=== PATIENT | female | born 1975 | race Caucasian/White ===

== ENCOUNTER 2020-05-11 04:25 | Inpatient (IN) | payer OTHER, SELFPAY ==
[2020-05-11] VITALS (11 sets, daily range): BP systolic 132–168; BP diastolic 77–93; PULSE 99–135; RESP 13–32; TEMP 35.7–38.2; O2SAT 95–99; BMI 27.4
--- NOTE | 2020-05-11 04:30 | XR_ITS ---
EXAMINATION: XR CHEST CLINICAL INFORMATION: Weakness COMPARISON: 10/22/2019 TECHNIQUE: Frontal view of the chest was obtained. FINDINGS: Right chest wall CT compatible port terminates near the cavoatrial junction. Cardiac leads overlie the chest. The lungs are well expanded. There is no focal consolidation, edema, or effusion. No pneumothorax. The cardiomediastinal silhouette is within normal limits. No acute osseous abnormality. XR/XR chest 1V IMPRESSION: Clear lungs.
--- NOTE | 2020-05-11 04:30 | ECG_ITS ---
Test Reason : SOB Blood Pressure : / mmHG Vent. Rate : 124 BPM Atrial Rate : 124 BPM P-R Int : 122 ms QRS Dur : 086 ms QT Int : 324 ms P-R-T Axes : 056 069 038 degrees QTc Int : 465 ms Sinus tachycardia RSR' or QR pattern in V1 suggests right ventricular conduction delay Nonspecific T wave abnormality Inferior leads Abnormal ECG When compared with ECG of 20-JAN-2019 00:09, Nonspecific T wave abnormality now evident in Inferior leads Referred By: Silvia Ayala Electronically Signed By:ELLY MEDEIROS MD
[2020-05-11 04:35] LABS: Glucose, Whole Blood 283 mg/dL (60-115)
--- NOTE | 2020-05-11 04:35 | ED.NAVMDI ---
HPI - Nausea/Vomiting/Diarrhea General Chief complaint: Nausea/Vomiting/Diarrhea Stated complaint: MULTIPLE COMPLAINTS Time Seen by Provider: 05/11/20 04:30 Source: patient and old records reviewed Mode of arrival: ambulatory Limitations: no limitations History of Present Illness MD elicited complaint: nausea, vomiting, diarrhea and abdominal pain Pertinent past history: other (gastroparesis) Onset (ago): day(s) (all day yesterday) Description of vomiting: food contents, watery and bilious Associated nausea: Yes Associated abdominal pain: Yes Location of pain: epigastric Radiation: diffuse Pain consistency: constant Quality: stabbing Exacerbating factors: movement Relieving factors: none Associated symptoms: fever/chills, loss of appetite, malaise, nausea/vomiting and weakness Related Data Home Medications Medication Instructions Recorded Confirmed Novolog Flexpen U-100 Insulin 3 - 5 units SUBCUT 05/11/20 albuterol See Rx Instructions .ROUTE .COMPLEX 05/11/20 05/11/20 insulin glargine U-300 conc 35 unit SUBCUT DAILY 05/11/20 05/11/20 [Toujeo Max U-300 SoloStar] lamotrigine [Lamictal] 200 mg PO BID 05/11/20 05/11/20 lorazepam 1 mg PO TID 05/11/20 05/11/20 metoclopramide HCl [Reglan] 5 mg PO BID 05/11/20 05/11/20 metoprolol tartrate 25 mg PO BID 05/11/20 05/11/20 midodrine 5 mg PO DAILY 05/11/20 05/11/20 omeprazole [Prilosec] 20 mg PO BID 05/11/20 05/11/20 ziprasidone HCl 40 mg PO BEDTIME 05/11/20 05/11/20 zolpidem [Ambien] 10 mg PO BEDTIME 05/11/20 05/11/20 Allergies Allergy/AdvReac Type Severity Reaction Status Date / Time morphine [MORPHINE] Allergy Intermediate RASH, Verified 05/11/20 05:35 hives, hives mushroom Allergy Intermediate HIVES/RASH Verified 05/11/20 05:35 mushroom Allergy Unknown throat Uncoded 05/11/20 04:41 closes up/difficult breathing mushrooms Allergy Unknown anaphylaxis Uncoded 05/11/20 04:41 Review of Systems Review of Systems: Constitutional : No Weight loss, No Fever, No Chills ENT/Mouth : No sore throat, No Rhinorrhea Eyes: No Swelling, No Redness Cardiovascular : No Chest Pain, No SOB, NoEdema Respiratory : No Cough, No Sputum, No Wheezing Gastrointestinal : Positive Nausea, Positive Vomiting, positive Diarrhea, positive abdominal Pain, No Hematochezia, No Melena Genitourinary : No Dysuria, No Urinary Frequency, No Hematuria, No Urgency Musculoskeletal : No joint pain, No Myalgias, No Joint Swelling Skin : No Skin Lesions, No rash Neuro : No Weakness, No Numbness, No Dizziness, No Headache Psych : No Anxiety/Panic, No Depression Heme/Lymph: No Bruising, No Lymphadenopathy Endocrine : No Polyuria, No Polydipsia All other systems reviewed and are negative. Gastrointestinal: Gastrointestinal: Reports nausea PMFSH Past Medical History Medical History Anxiety Bipolar 1 disorder Diabetes Gastroparesis Pancreatitis Surgical History H/O: hysterectomy History of appendectomy Social History Social History (Updated 05/11/20 @ 04:43 by Silvia Ayala DO) Smoking Status: Never smoker Use of substances other than those prescribed or required for medical reasons: No Advance Directives: No Physical Exam Vital Signs: Vital Signs: Vital Signs Temp Pulse Resp BP Pulse Ox 05/11/20 05:38 123 H 15 142/93 H 97 05/11/20 04:33 100.7 F H 124 H 32 H 137/81 99 Body Mass Index 27.4 Appearance: Alert. Oriented X3. Mild acute distress, dry heaving, pale, diaphoretic. Eyes: Pupils equal, round and reactive to light. ENT: Pharynx moderate dry MM Neck: Normal inspection. Neck supple. CVS: tachycardic heart rate and rhythm. Pulses normal. Respiratory: No respiratory distress. Breath sounds normal. Abdomen: Soft and moderate epigastric ttp Skin: Skin warm and diaphoretic. palel skin color. Normal skin turgor. Extremities: No lower extremity edema. No calf ttp Neuro: Oriented X 3. No motor deficit. No sensory deficit. Course Course Course Narrative: given fevers, WBC count 26k - empiric zosyn ordered at this time UA and chemistry pending CXR negative at this time the patient still has n/v will need admission for further workup MDM - Nausea/Vomiting/Diarrhea MDM Narrative Medical decision making narrative: 44 yo female with multiple medical problems including DM/gastroparesis CAD here with 1 day of upper abdominal pain, vomiting, diarrhea - has temp of 100.7, at this time will need labs, cultures, IVF x2L , dilaudid/reglan/benadryl, CT scan to look for colitis Lab Data Result diagrams: 05/11/20 04:58 05/11/20 04:58 Labs: Lab Results 05/11/20 05/11/20 05/11/20 Range/Units 04:31 04:58 04:58 WBC 26.7 H (4.8-10.8) X10*3/uL RBC 4.02 L (4.20-5.50) X10*6/uL Hgb 11.2 L (12.0-16.0) g/dl Hct 33.8 L (37-47) % MCV 84.1 (80-98) fL MCH 27.9 (27.0-33.0) pg MCHC 33.1 (31.0-35.0) g/dl RDW 14.1 (11.0-16.0) % Plt Count 508 H (160-400) X10*3/uL MPV 9.0 L (9.4-12.3) fL Immature Gran % (Auto) 0.6 H (0.0-0.4) % Neut % (Auto) 78.3 H (45-73) % Lymph % (Auto) 13.6 L (20-40) % [place] % (Auto) 7.1 (2-11) % Eos % (Auto) 0.0 (0-4) % Baso % (Auto) 0.4 (0-2) % Lymph # (Auto) 3.6 (1.2-4.9) X10*3/uL [place] # (Auto) 1.9 H (0.1-1.2) X10*3/uL Eos # (Auto) 0.0 (0.0-0.4) X10*3/uL Baso # (Auto) 0.1 (0.0-0.2) X10*3/uL Abs Immat Gran (auto) 0.17 H (0.00-0.03) X10*3/uL Absolute Neuts (auto) 20.9 H (2.0-8.3) X10*3/uL Absolute Nucleated RBC 0.000 (0.0-0.012) X10*3/uL Nucleated RBC % (auto) 0.0 (0.0-0.2) /100WBC Smear Tech's Comments VERIFIED PT 12.6 (10.8-13.0) SEC INR 1.1 (0.9-1.1) APTT 33.3 (24.1-38.0) SEC VBG pH (7.32-7.43) VBG pCO2 mmhg VBG Oxygen Liters/Min VBG pO2 mmhg VBG HCO3 mmol/L VBG O2 Saturation % VBG Base Excess mmol/L Sodium (135-145) mmol/L Potassium (3.3-5.1) mmol/l Chloride (96-108) mmol/L Carbon Dioxide (22-29) mmol/L Anion Gap (12-20) BUN (9-16) mg/dL Creatinine (0.5-1.4) mg/dL Estim Creat Clear Calc Estimated GFR POC Glucose 283 H (60-115) mg/dL Random Glucose (60-115) mg/dL Lactic Acid (0.5-2.0) mmol/L Calcium (8.4-10.2) mg/dL Magnesium (1.6-2.6) mg/dL Total Bilirubin (0.0-1.0) mg/dL Direct Bilirubin (0.0-0.5) mg/dL AST (5-31) U/L ALT (0-31) U/L Alkaline Phosphatase (39-117) U/L Troponin I High Sens (<3.5-17.0) ng/L Total Protein (6.5-8.0) g/dL Albumin (3.5-5.0) g/dL Lipase (8-78) U/L Coronavirus (PCR) (Negative) 05/11/20 05/11/20 05/11/20 Range/Units 04:58 04:58 04:58 WBC (4.8-10.8) X10*3/uL RBC (4.20-5.50) X10*6/uL Hgb (12.0-16.0) g/dl Hct (37-47) % MCV (80-98) fL MCH (27.0-33.0) pg MCHC (31.0-35.0) g/dl RDW (11.0-16.0) % Plt Count (160-400) X10*3/uL MPV (9.4-12.3) fL Immature Gran % (Auto) (0.0-0.4) % Neut % (Auto) (45-73) % Lymph % (Auto) (20-40) % [place] % (Auto) (2-11) % Eos % (Auto) (0-4) % Baso % (Auto) (0-2) % Lymph # (Auto) (1.2-4.9) X10*3/uL [place] # (Auto) (0.1-1.2) X10*3/uL Eos # (Auto) (0.0-0.4) X10*3/uL Baso # (Auto) (0.0-0.2) X10*3/uL Abs Immat Gran (auto) (0.00-0.03) X10*3/uL Absolute Neuts (auto) (2.0-8.3) X10*3/uL Absolute Nucleated RBC (0.0-0.012) X10*3/uL Nucleated RBC % (auto) (0.0-0.2) /100WBC Smear Tech's Comments PT (10.8-13.0) SEC INR (0.9-1.1) APTT (24.1-38.0) SEC VBG pH (7.32-7.43) VBG pCO2 mmhg VBG Oxygen Liters/Min VBG pO2 mmhg VBG HCO3 mmol/L VBG O2 Saturation % VBG Base Excess mmol/L Sodium 129 L (135-145) mmol/L Potassium 3.7 (3.3-5.1) mmol/l Chloride 92 L (96-108) mmol/L Carbon Dioxide 20 L (22-29) mmol/L Anion Gap 21 H (12-20) BUN 16 (9-16) mg/dL Creatinine 1.05 (0.5-1.4) mg/dL Estim Creat Clear Calc 70.9 Estimated GFR 57 POC Glucose (60-115) mg/dL Random Glucose 350 H* (60-115) mg/dL Lactic Acid 1.7 (0.5-2.0) mmol/L Calcium 8.5 (8.4-10.2) mg/dL Magnesium 1.7 (1.6-2.6) mg/dL Total Bilirubin 0.5 (0.0-1.0) mg/dL Direct Bilirubin 0.2 (0.0-0.5) mg/dL AST 12 (5-31) U/L ALT 7 (0-31) U/L Alkaline Phosphatase 117 (39-117) U/L Troponin I High Sens < 3.5 (<3.5-17.0) ng/L Total Protein 7.2 (6.5-8.0) g/dL Albumin 4.0 (3.5-5.0) g/dL Lipase < 4 L (8-78) U/L Coronavirus (PCR) (Negative) 05/11/20 05/11/20 Range/Units 04:58 05:41 WBC (4.8-10.8) X10*3/uL RBC (4.20-5.50) X10*6/uL Hgb (12.0-16.0) g/dl Hct (37-47) % MCV (80-98) fL MCH (27.0-33.0) pg MCHC (31.0-35.0) g/dl RDW (11.0-16.0) % Plt Count (160-400) X10*3/uL MPV (9.4-12.3) fL Immature Gran % (Auto) (0.0-0.4) % Neut % (Auto) (45-73) % Lymph % (Auto) (20-40) % [place] % (Auto) (2-11) % Eos % (Auto) (0-4) % Baso % (Auto) (0-2) % Lymph # (Auto) (1.2-4.9) X10*3/uL [place] # (Auto) (0.1-1.2) X10*3/uL Eos # (Auto) (0.0-0.4) X10*3/uL Baso # (Auto) (0.0-0.2) X10*3/uL Abs Immat Gran (auto) (0.00-0.03) X10*3/uL Absolute Neuts (auto) (2.0-8.3) X10*3/uL Absolute Nucleated RBC (0.0-0.012) X10*3/uL Nucleated RBC % (auto) (0.0-0.2) /100WBC Smear Tech's Comments PT (10.8-13.0) SEC INR (0.9-1.1) APTT (24.1-38.0) SEC VBG pH 7.52 H (7.32-7.43) VBG pCO2 27 mmhg VBG Oxygen Liters/Min TNP VBG pO2 50 mmhg VBG HCO3 21 mmol/L VBG O2 Saturation 88.8 % VBG Base Excess -0.5 mmol/L Sodium (135-145) mmol/L Potassium (3.3-5.1) mmol/l Chloride (96-108) mmol/L Carbon Dioxide (22-29) mmol/L Anion Gap (12-20) BUN (9-16) mg/dL Creatinine (0.5-1.4) mg/dL Estim Creat Clear Calc Estimated GFR POC Glucose (60-115) mg/dL Random Glucose (60-115) mg/dL Lactic Acid (0.5-2.0) mmol/L Calcium (8.4-10.2) mg/dL Magnesium (1.6-2.6) mg/dL Total Bilirubin (0.0-1.0) mg/dL Direct Bilirubin (0.0-0.5) mg/dL AST (5-31) U/L ALT (0-31) U/L Alkaline Phosphatase (39-117) U/L Troponin I High Sens (<3.5-17.0) ng/L Total Protein (6.5-8.0) g/dL Albumin (3.5-5.0) g/dL Lipase (8-78) U/L Coronavirus (PCR) NEGATIVE (Negative) ECG Data Attestation: I personally reviewed and interpreted this ECG as follows: ECG interpretation date: 05/11/20 ECG interpretation time: 04:39 Interpretation: Rate: 124 Rhythm: sinus tachycardia [place]: normal Normal P waves. Normal [place]. Normal QRS complex. ST T wave : normal qTC: normal prior studies: no acute ischemia The study has been interpreted contemporaneously by me. . Critical Care Time Critical Care Time Critical Care Time: Yes Total Critical Care Time: 35 Attestation: 2L of IVF, IV dilaudid ordered, labs, CT scan, EKG I personally attest to this time spent taking care of the patient Discharge Plan Discharge Clinical Impression: Diabetic gastroparesis Vomiting Qualifiers: Vomiting type: unspecified Vomiting Intractability: intractable Nausea presence: with nausea Qualified Code(s): R11.2 - Nausea with vomiting, unspecified Patient Disposition: Admitted As Inpatient
[2020-05-11] MEDS: Metoclopramide HCl 10 MG/2 ML VIAL 5 MG IVPUSH (04:45)
[2020-05-11] MEDS: diphenhydrAMINE HCL 50 MG/ML VIAL 25 MG IVPUSH (04:45)
[2020-05-11] MEDS: 0.9 % Sodium Chloride 1,000 ML 999 ML IVCONT ×2 (04:46→06:37)
[2020-05-11] MEDS: HYDROmorphone HCl 1 MG/ML SYRINGE IVPUSH ×2 (05:05→08:43)
--- NOTE | 2020-05-11 05:08 | CT_ITS ---
EXAMINATION: CT ABDOMEN AND PELVIS WITHOUT CONTRAST CLINICAL INFORMATION: Fevers. Vomiting. Diarrhea. COMPARISON: 01/20/2019 TECHNIQUE: Multidetector volumetric imaging was performed from the superior aspect of the liver through the pubic symphysis. Sagittal and coronal reformatted images were obtained on the technologist's workstation. This CT examination was performed using dose optimization techniques as appropriate, variously including the following: *Automated exposure control *Adjustment of mA and/or kV according to patient size (this includes techniques or standardized protocols for targeted exams where dose is matched to indication/reason for exam; i.e. extremities or head) *Use of iterative reconstruction technique DLP: 542 mGy-cm FINDINGS: LUNG BASES: The visualized lung bases are unremarkable. LIVER, GALLBLADDER, AND BILIARY TREE: The liver is normal in size, shape, and attenuation. No focal hepatic lesion or biliary ductal dilatation is present. The gallbladder is unremarkable with no evidence of radiopaque gallstones, gallbladder wall thickening, or obvious pericholecystic inflammatory changes. PANCREAS: Normal appearance of the pancreatic parenchyma. There is minimal stranding in the retroperitoneum at the level of the pancreatic body. SPLEEN: Unremarkable. ADRENAL GLANDS: Unremarkable. KIDNEYS AND URETERS: The kidneys are normal in size, shape, and attenuation. No hydronephrosis or hydroureter. 0.2 cm left midpole renal calculus is 11 cm from the posterior axillary line. 0.4 cm right midpole calculus is 11.5 cm from the posterior axillary line.. Mild symmetric perinephric stranding. BLADDER: Unremarkable. GASTROINTESTINAL TRACT: The stomach is unremarkable. Normal caliber small bowel. There is no obstruction. Mild distention of the rectum with stool. Mild overall colonic stool burden. No colonic wall thickening. No free air. No free fluid. ABDOMINAL WALL: No significant hernia is appreciated. LYMPH NODES: Normal. VASCULAR: Unremarkable. PELVIC VISCERA: No pelvic mass. OSSEOUS STRUCTURES: No acute or suspicious osseous abnormality. CT/CT abdomen pelvis wo con IMPRESSION: Prominent stool distends the rectum. Mild overall colonic stool burden. No acute colonic inflammatory change. Minimal stranding seen in the retroperitoneum adjacent to the body of the pancreas. Correlate for pancreatitis. Nonobstructing renal calculi.
[2020-05-11 05:10] LABS: Basophils Absolute Auto 0.1 X10*3/uL (0.0-0.2); Basophils Percent Auto 0.4 % (0-2); Hematocrit 33.8 % (37-47); Hemoglobin 11.2 g/dl (12.0-16.0); Imm Gran Abs Auto 0.17 X10*3/uL (0.00-0.03); Imm Gran Pct Auto 0.6 % (0.0-0.4); Lymphocytes Absolute Auto 3.6 X10*3/uL (1.2-4.9); Lymphocytes Percent Auto 13.6 % (20-40); MANUAL DIFF FLAG SCAN; Mean Corpuscular HGB Conc 33.1 g/dl (31.0-35.0); Mean Corpuscular Hemoglobin 27.9 pg (27.0-33.0); Mean Corpuscular Volume 84.1 fL (80-98); Monocytes Absolute Auto 1.9 X10*3/uL (0.1-1.2); Monocytes Percent Auto 7.1 % (2-11); Neutrophils Absolute Auto 20.9 X10*3/uL (2.0-8.3); Neutrophils Percent Auto 78.3 % (45-73); Platelet Count 508 X10*3/uL (160-400); Red Blood Count 4.02 X10*6/uL (4.20-5.50); Red Cell Distribution Width 14.1 % (11.0-16.0); SCAN SMEAR FLAG 1; White Blood Count 26.7 X10*3/uL (4.8-10.8)
[2020-05-11 05:14] LABS: INTERNATIONAL NORM RATIO 1.1 (0.9-1.1); Prothrombin Time 12.6 SEC (10.8-13.0)
[2020-05-11 05:17] LABS: Partial Thromboplastin Time 33.3 SEC (24.1-38.0)
[2020-05-11 05:38] LABS: Base Excess VBG -0.5 mmol/L; HCO3 VBG 21 mmol/L; PCO2 VBG 27 mmhg; PO2 VBG 50 mmhg; pH VBG 7.52 (7.32-7.43)
[2020-05-11 05:39] LABS: Blood Gas Serial # 5396; Oxygen Saturation VBG 88.8 %
[2020-05-11 05:44] LABS: SLIDE REVIEW VERIFIED
[2020-05-11 05:50] LABS: Troponin-I High Sensitivity < 3.5 ng/L (<3.5-17.0)
--- NOTE | 2020-05-11 06:09 | PC.NURSE ---
pt arrived to ER pale and with nausea and frequent retching. pt able to fall asleep following benadryl, reglan and dilaudid.
[2020-05-11] MEDS: Piperacillin Sodium/Tazobactam 3.375 GM in 0.9 % Sodium Chloride 50 ML IV (06:10)
[2020-05-11 06:43] LABS: Lactic Acid 1.7 mmol/L (0.5-2.0)
[2020-05-11 06:51] LABS: SARS COV2 PCR INHOUSE NEGATIVE (Negative)
[2020-05-11 06:52] LABS: Alanine Aminotransferase 7 U/L (0-31); Alkaline Phosphatase 117 U/L (39-117); Anion Gap 21 (12-20); Aspartate Amino Transferase 12 U/L (5-31); Bilirubin Direct 0.2 mg/dL (0.0-0.5); Bilirubin Total 0.5 mg/dL (0.0-1.0); Blood Urea Nitrogen 16 mg/dL (9-16); Calcium 8.5 mg/dL (8.4-10.2); Carbon Dioxide 20 mmol/L (22-29); Chloride 92 mmol/L (96-108); Creatinine Clr Calc Pharmacy 70.9; Estimated Glomerular Filt Rate 57; Glucose Random 350 mg/dL (60-115); Lipase < 4 U/L (8-78); Magnesium 1.7 mg/dL (1.6-2.6); Potassium 3.7 mmol/l (3.3-5.1); Sodium 129 mmol/L (135-145); Total Protein 7.2 g/dL (6.5-8.0)
--- NOTE | 2020-05-11 06:58 | PC.NURSE ---
pt ambulatory to bathroom with steady gait, feeling better.
--- NOTE | 2020-05-11 07:30 | PC.NURSE ---
PT'S OSMIN ([phone]) CALLED FOR AN UPDATE ON PT STATUS. PT AWARE OF PLAN OF CARE FOR ADMISSION TO HOSP.
--- NOTE | 2020-05-11 07:54 | PC.NURSE ---
this rn spoke with hosp (dr. ravi) pt n/v vomitted sm amt of bile and c/o / abd pain.
[2020-05-11] MEDS: Metoclopramide HCl 10 MG/2 ML VIAL IVPUSH ×3 (08:43→18:28)
[2020-05-11 09:00] LABS: Glucose Urine UA >=1000 MG/DL (NEG); Leukocyte Esterase Urine NEG (NEG); Nitrite Urine NEG (NEG); UACC Culture Trigger NO; Urine Blood 2+ (NEG); Urine Ketones >=80 MG/DL (NEG); Urine Protein 2+ MG/DL (NEG-TRACE)
[2020-05-11 09:01] LABS: Appearance Urine HAZY; Color Urine STRAW
[2020-05-11 09:09] LABS: Bacteria Urine 2+ /LPF; Squamous Epithelial Cell Urine 1+ /LPF; UACC CULT YES
--- NOTE | 2020-05-11 10:00 | PM.IMHP ---
History of Present Illness Date of Service: 05/11/20 Chief Complaint: Nausea, vomiting, diarrhea, abdominal pain this is a 44-year-old female with a history of diabetic gastroparesis who presents to the emergency department with multiple complaints. She reports onset of generalized abdominal pain yesterday. This has been associated with nausea, nonbloody emesis and small amount of diarrhea. She also reports fever and chills. She denies any recent travel, takeout food, sick contacts. In the emergency department she was noted to have a low-grade fever of 100.7 on arrival and she was also tachycardic. Lab work revealed leukocytosis of 26.7 as well as glucose of 350. She underwent a CAT scan of the abdomen which showed moderate stool burden but no evidence of infectious process. She received antiemetics, IV fluid. She continued to have nausea and vomiting the decision was made to admit her for further management. Review of Systems Review of Systems: Yes all other systems are reviewed and are negative Constitutional: Constitutional: Reports chills and Reports fever(s) Gastrointestinal: Gastrointestinal: Reports abdominal pain, Reports diarrhea, Reports nausea and Reports vomiting [facility] Medical History (Updated 05/11/20 @ 11:51 by ALESHA Watt) Anxiety Bipolar 1 disorder Diabetes Gastroparesis NSTEMI (non-ST elevated myocardial infarction) Pancreatitis Recurrent UTI Functional capacity: independent ambulation Pertinent family history: Adopted Family history: reviewed and not pertinent Surgical History (Updated 05/11/20 @ 10:18 by ALESHA Watt) H/O pyloroplasty H/O: hysterectomy History of appendectomy History of ERCP History of tonsillectomy Social History (Updated 05/11/20 @ 10:21 by ALESHA Watt) Alcohol intake: never Smoking Status: Never smoker Use of substances other than those prescribed or required for medical reasons: Yes Substance Use Type: Marijuana Substance Use Frequency: Daily Advance Directives: No Meds Allergies Allergy/AdvReac Type Severity Reaction Status Date / Time morphine [MORPHINE] Allergy Intermediate RASH, Verified 05/11/20 05:35 hives, hives mushroom Allergy Intermediate HIVES/RASH Verified 05/11/20 05:35 mushroom Allergy Unknown throat Uncoded 05/11/20 04:41 closes up/difficult breathing mushrooms Allergy Unknown anaphylaxis Uncoded 05/11/20 04:41 Home Medications Medication Instructions Recorded Confirmed Type Novolog Flexpen U-100 Insulin 3 - 5 units SUBCUT 05/11/20 History albuterol See Rx Instructions .ROUTE .COMPLEX 05/11/20 05/11/20 History insulin glargine U-300 conc 35 unit SUBCUT DAILY 05/11/20 05/11/20 History [Toujeo Max U-300 SoloStar] lamotrigine 200 mg PO BID 05/11/20 05/11/20 History lorazepam 1 mg PO BID PRN 05/11/20 05/11/20 History metoclopramide HCl [Reglan] 5 mg PO BID 05/11/20 05/11/20 History metoprolol tartrate 25 mg PO BID 05/11/20 05/11/20 History midodrine 5 mg PO DAILY 05/11/20 05/11/20 History omeprazole [Prilosec] 20 mg PO BID 05/11/20 05/11/20 History ziprasidone HCl 40 mg PO BEDTIME 05/11/20 05/11/20 History zolpidem 10 mg PO BEDTIME 05/11/20 05/11/20 History Physical Exam Vital Signs and Narrative: Vital Signs: Last Vital Signs Temp 96.2 F L 05/11/20 07:19 Pulse 135 H 05/11/20 07:19 Resp 22 H 05/11/20 07:19 BP 162/84 H 05/11/20 07:19 Pulse Ox 97 05/11/20 05:38 Body Mass Index 27.4 Const: Other: appears uncomfortable. Intermittent retching. Orientation/consciousness: patient oriented x3 HENMT: Head: Yes normocephalic and Yes atraumatic Eyes: Sclerae: sclerae normal Chest: Chest palpation & inspection: normal inspection of the chest Resp: Effort & Inspection: normal respiratory effort and no respiratory distress Auscultation: clear to auscultation bilaterally Cardio: Rate: tachycardic Rhythm: regular rhythm GI: Palpation (GI): Tenderness to palpation present (GI) (with even light touch ) Skin: General skin exam: no rashes or lesions noted Neuro: General: patient oriented x3 Cranial nerves: Yes CN's II-XII intact bilaterally and Yes Bilaterally intact EOM present Extrem: General: Yes normal to inspection Results Labs Labs: Laboratory Tests 05/11/20 05/11/20 05/11/20 04:31 04:58 04:58 WBC 26.7 H RBC 4.02 L Hgb 11.2 L Hct 33.8 L MCV 84.1 MCH 27.9 MCHC 33.1 RDW 14.1 Plt Count 508 H MPV 9.0 L Immature Gran % (Auto) 0.6 H Neut % (Auto) 78.3 H Lymph % (Auto) 13.6 L [place] % (Auto) 7.1 Eos % (Auto) 0.0 Baso % (Auto) 0.4 Lymph # (Auto) 3.6 [place] # (Auto) 1.9 H Eos # (Auto) 0.0 Baso # (Auto) 0.1 Abs Immat Gran (auto) 0.17 H Absolute Neuts (auto) 20.9 H Absolute Nucleated RBC 0.000 Nucleated RBC % (auto) 0.0 Smear Tech's Comments VERIFIED PT 12.6 INR 1.1 APTT 33.3 VBG pH VBG pCO2 VBG Oxygen Liters/Min VBG pO2 VBG HCO3 VBG O2 Saturation VBG Base Excess Sodium Potassium Chloride Carbon Dioxide Anion Gap BUN Creatinine Estim Creat Clear Calc Estimated GFR POC Glucose 283 H Random Glucose Lactic Acid Calcium Magnesium Total Bilirubin Direct Bilirubin AST ALT Alkaline Phosphatase Troponin I High Sens Total Protein Albumin Lipase Urine Color Urine Appearance Urine pH Ur Specific [place] Urine Protein Urine Glucose (UA) Urine Ketones Urine Blood Urine Nitrite Ur Leukocyte Esterase Urine RBC Urine WBC Ur Squamous Epith Cells Urine Bacteria Urine Yeast Coronavirus (PCR) 05/11/20 05/11/20 05/11/20 04:58 04:58 04:58 WBC RBC Hgb Hct MCV MCH MCHC RDW Plt Count MPV Immature Gran % (Auto) Neut % (Auto) Lymph % (Auto) [place] % (Auto) Eos % (Auto) Baso % (Auto) Lymph # (Auto) [place] # (Auto) Eos # (Auto) Baso # (Auto) Abs Immat Gran (auto) Absolute Neuts (auto) Absolute Nucleated RBC Nucleated RBC % (auto) Smear Tech's Comments PT INR APTT VBG pH VBG pCO2 VBG Oxygen Liters/Min VBG pO2 VBG HCO3 VBG O2 Saturation VBG Base Excess Sodium 129 L Potassium 3.7 Chloride 92 L Carbon Dioxide 20 L Anion Gap 21 H BUN 16 Creatinine 1.05 Estim Creat Clear Calc 70.9 Estimated GFR 57 POC Glucose Random Glucose 350 H* Lactic Acid 1.7 Calcium 8.5 Magnesium 1.7 Total Bilirubin 0.5 Direct Bilirubin 0.2 AST 12 ALT 7 Alkaline Phosphatase 117 Troponin I High Sens < 3.5 Total Protein 7.2 Albumin 4.0 Lipase < 4 L Urine Color Urine Appearance Urine pH Ur Specific [place] Urine Protein Urine Glucose (UA) Urine Ketones Urine Blood Urine Nitrite Ur Leukocyte Esterase Urine RBC Urine WBC Ur Squamous Epith Cells Urine Bacteria Urine Yeast Coronavirus (PCR) 05/11/20 05/11/20 05/11/20 04:58 05:41 08:52 WBC RBC Hgb Hct MCV MCH MCHC RDW Plt Count MPV Immature Gran % (Auto) Neut % (Auto) Lymph % (Auto) [place] % (Auto) Eos % (Auto) Baso % (Auto) Lymph # (Auto) [place] # (Auto) Eos # (Auto) Baso # (Auto) Abs Immat Gran (auto) Absolute Neuts (auto) Absolute Nucleated RBC Nucleated RBC % (auto) Smear Tech's Comments PT INR APTT VBG pH 7.52 H VBG pCO2 27 VBG Oxygen Liters/Min TNP VBG pO2 50 VBG HCO3 21 VBG O2 Saturation 88.8 VBG Base Excess -0.5 Sodium Potassium Chloride Carbon Dioxide Anion Gap BUN Creatinine Estim Creat Clear Calc Estimated GFR POC Glucose Random Glucose Lactic Acid Calcium Magnesium Total Bilirubin Direct Bilirubin AST ALT Alkaline Phosphatase Troponin I High Sens Total Protein Albumin Lipase Urine Color STRAW Urine Appearance HAZY Urine pH 6.0 Ur Specific [place] 1.020 Urine Protein 2+ H Urine Glucose (UA) >=1000 H Urine Ketones >=80 Urine Blood 2+ H Urine Nitrite NEG Ur Leukocyte Esterase NEG Urine RBC 5-9 H Urine WBC 10-14 H Ur Squamous Epith Cells 1+ Urine Bacteria 2+ Urine Yeast TRACE Coronavirus (PCR) NEGATIVE Assessment and Plan (1) Vomiting: Qualifiers: Nausea presence: with nausea Vomiting Intractability: intractable Vomiting type: unspecified Qualified Code(s): R11.2 - Nausea with vomiting, unspecified Status: Acute This is a 44-year-old female with a history of gastroparesis who presents to the emergency department with abdominal pain, nausea, vomiting, diarrhea found to have sepsis sepsis secondary to UTI meets criteria wih tachycardia and leukocytosis No severe features, LA wnl sepsis focused exam completed CT shows multiple nonobstructing stone - IV ceftriaxone, follow urine culture, blood cultures intractable nausea and vomiting likely related to diabetic gastroparesis possible component marijuana hyperemesis - symptomatic support including antiemetics, IV fluid diarrhea ?overflow CT scan reports prominent stool burden diabetes, uncontrolled no evidence of DKA -Toujeo is non formulary and will be converted to Lantus. we will decrease dose by half given nausea and vomiting - insulin sliding scale, POCs mood - continue lamotrigine, lorazepam, ziprasidone DVT prophylaxis- Lovenox this case was discussed with Dr. Whipple
--- NOTE | 2020-05-11 11:07 | PC.NURSE ---
this rn was attempting to give pt her metoprolol 25mg dose, pt states i don't know if i can swallow because i just went into the bathroom and spat up a little bit. pt has an emesis bag with 25mg of yellow fluid in her hand.
[2020-05-11] MEDS: Metoprolol Tartrate 25 MG TABLET PO ×2 (11:18→21:16)
[2020-05-11 11:48] LABS: Glucose, Whole Blood 381 mg/dL (60-115)
[2020-05-11] MEDS: cefTRIAXone sodium 1 GM in 0.9 % Sodium Chloride 50 ML IV (12:16)
--- NOTE | 2020-05-11 13:05 | PC.NURSE ---
this rn spoke with luis ([facility]) who indicated that pt need to be given lispro insulin sliding scale for poc of 381. pt has not eaten nor has she drunk anything po from this am. aware.
[2020-05-11] MEDS: Insulin Lispro 100 UNIT/ML 3 ML VIAL SUBCUT ×3 (14:05→21:15)
[2020-05-11 14:32] LABS: Glucose, Whole Blood 423 mg/dL (60-115)
--- NOTE | 2020-05-11 14:45 | PC.NURSE ---
pt has intermittent n/v of small amt of yellow fluid.
[2020-05-11] MEDS: HYDROmorphone HCl 0.5 MG/0.5 ML SYRINGE IVPUSH ×3 (14:47→23:26)
--- NOTE | 2020-05-11 16:30 | PC.NURSE ---
report given to floor. patient ready for transport.
--- NOTE | 2020-05-11 17:50 | PM.EVENT ---
Event Note Event Note: patient seen examined case discussed with APC Patient presented with nausea vomiting abdominal discomfort of 24 hour duration patient noted that she has a temp of 100.4 degrees at home she denies any urinary symptoms patient has been using edible marijuana 3 times a day likely contributing to her symptoms as per patient blood sugars were under good control on examination abdomen soft tender to palpation, positive guarding no rigidity extremities no edema assessment and plan intractable nausea vomiting likely related to hyperglycemia use of marijuana and gastroparesis leukocytosis question related to UTI versus stress-induced with hyperglycemia and vomiting will follow CBC agree with treatment plan as per APC will follow clinical course closely.
[2020-05-11] MEDS: 0.9 % Sodium Chloride 1,000 ML 100 ML IVCONT (18:30)
[2020-05-11] MEDS: Enoxaparin Sodium 40 MG/0.4 ML SYRINGE SUBCUT (18:30)
[2020-05-11 18:39] LABS: Glucose, Whole Blood 372 mg/dL (60-115)
[2020-05-11] MEDS: Insulin Glargine,Hum.rec.anlog 100 UNIT/ML 10 ML VIAL 14 UNIT SUBCUT (18:41)
[2020-05-11 20:51] LABS: Glucose, Whole Blood 264 mg/dL (60-115)
[2020-05-11] MEDS: lamoTRIgine 100 MG TABLET 200 MG PO (21:15)
[2020-05-11] MEDS: Omeprazole 20 MG CAPSULE.DR PO (21:16)
[2020-05-11] MEDS: 0.9 % Sodium Chloride Flush 3 ML SYRINGE IVFLUSH (21:17)
[2020-05-12] VITALS (9 sets, daily range): BP systolic 102–160; BP diastolic 50–97; PULSE 89–104; RESP 16–22; TEMP 36.8–37.2; O2SAT 94–99
[2020-05-12] MEDS: 0.9 % Sodium Chloride 1,000 ML 100 ML IVCONT ×3 (03:35→23:05)
[2020-05-12] MEDS: HYDROmorphone HCl 0.5 MG/0.5 ML SYRINGE IVPUSH ×5 (03:50→21:07)
[2020-05-12] MEDS: Metoclopramide HCl 10 MG/2 ML VIAL IVPUSH ×4 (03:51→23:06)
[2020-05-12 06:30] LABS: Basophils Absolute Auto 0.1 X10*3/uL (0.0-0.2); Basophils Percent Auto 0.3 % (0-2); Eosinophils Percent Auto 0.1 % (0-4); Hematocrit 31.8 % (37-47); Hemoglobin 10.1 g/dl (12.0-16.0); Imm Gran Abs Auto 0.12 X10*3/uL (0.00-0.03); Imm Gran Pct Auto 0.5 % (0.0-0.4); Lymphocytes Absolute Auto 3.4 X10*3/uL (1.2-4.9); Lymphocytes Percent Auto 14.2 % (20-40); MANUAL DIFF FLAG SCAN; Mean Corpuscular HGB Conc 31.8 g/dl (31.0-35.0); Mean Corpuscular Hemoglobin 27.7 pg (27.0-33.0); Mean Corpuscular Volume 87.1 fL (80-98); Mean Platelet Volume 9.1 fL (9.4-12.3); Monocytes Absolute Auto 1.6 X10*3/uL (0.1-1.2); Monocytes Percent Auto 6.6 % (2-11); Neutrophils Absolute Auto 18.8 X10*3/uL (2.0-8.3); Neutrophils Percent Auto 78.3 % (45-73); Platelet Count 497 X10*3/uL (160-400); Red Blood Count 3.65 X10*6/uL (4.20-5.50); Red Cell Distribution Width 14.4 % (11.0-16.0); SCAN SMEAR FLAG 1; White Blood Count 23.9 X10*3/uL (4.8-10.8)
[2020-05-12 07:12] LABS: Anion Gap 15 (12-20); Blood Urea Nitrogen 26 mg/dL (9-16); Calcium 7.8 mg/dL (8.4-10.2); Carbon Dioxide 21 mmol/L (22-29); Chloride 106 mmol/L (96-108); Estimated Glomerular Filt Rate > 60; Glucose Random 105 mg/dL (60-115); Potassium 4.1 mmol/l (3.3-5.1); Sodium 138 mmol/L (135-145)
[2020-05-12 08:15] LABS: SLIDE REVIEW VERIFIED
[2020-05-12] MEDS: Insulin Glargine,Hum.rec.anlog 100 UNIT/ML 10 ML VIAL 14 UNIT SUBCUT (08:16)
[2020-05-12] MEDS: 0.9 % Sodium Chloride Flush 3 ML SYRINGE IVFLUSH (08:18)
[2020-05-12] MEDS: Midodrine HCl 5 MG TABLET PO (08:22)
[2020-05-12] MEDS: Metoprolol Tartrate 25 MG TABLET PO ×2 (08:22→21:04)
[2020-05-12] MEDS: lamoTRIgine 100 MG TABLET 200 MG PO ×2 (08:22→21:03)
[2020-05-12 08:24] LABS: Glucose, Whole Blood 116 mg/dL (60-115)
--- NOTE | 2020-05-12 08:35 | MHC.CM.PN ---
pt lives c her spouse in her home. she reports that she is independent in her care despite being disabled. her is able to help her should she need it. this will include a ride home at dc. pt denies the need for vna at dc. in fact pt does not have any svcs in the home. dc plan is home no svcs. cm to cont. to follow.
[2020-05-12] MEDS: cefTRIAXone sodium 1 GM in 0.9 % Sodium Chloride 50 ML IV (09:39)
[2020-05-12] MEDS: Omeprazole 20 MG CAPSULE.DR PO ×2 (09:41→21:03)
[2020-05-12 11:18] LABS: Glucose, Whole Blood 230 mg/dL (60-115)
[2020-05-12] MEDS: Insulin Lispro 100 UNIT/ML 3 ML VIAL SUBCUT ×2 (11:29→17:03)
--- NOTE | 2020-05-12 13:36 | P.PNIM_ITS ---
Subjective Subjective Date of Service: 05/12/20 Interval History: patient complaining of persistent abdominal pain and nausea unable to keep fluid down stew to recurrent gagging spitting up small amount of phlegm, complaining that her urine is cloudy. Review of Systems General no headache ,no dizziness no fever chills. CVS no chest pain, no palpitation. Respiratory no cough, no shortness of breath. Physical Exam Vital Signs: Vital Signs: Vital Signs Temp Pulse Resp BP Pulse Ox 05/12/20 11:41 98.2 F 92 22 H 146/68 H 96 05/12/20 08:22 101 H 121/66 05/12/20 07:17 98.4 F 101 H 18 121/66 98 05/12/20 04:00 98.6 F 95 18 129/97 H 98 05/12/20 00:00 98.6 F 89 18 103/61 99 05/11/20 21:16 107 H 155/89 H 05/11/20 19:32 97.2 F 107 H 18 155/89 H 97 05/11/20 14:53 99 16 151/86 H 95 05/11/20 14:47 16 05/11/20 14:26 98.4 F 116 H 16 158/88 H 99 Body Mass Index 27.4 General patient resting comfortably in no acute distress. Neck is supple no JVD. CVS regular rate rhythm, Respiratory lungs clear to auscultation, no respiratory distress, no wheeze, no rhonchi. Gastrointestinal patient contracts her belly even before examined were with minimal touch belly is soft, bowel sounds are audible no distension, Extremities no clubbing cyanosis or edema. Neuro nonfocal patient moving all 4 extremity speech clear. Skin no rash Objective Data Current Medications Generic Name Dose Route Start Last Admin Trade Name Freq PRN Reason Stop Dose Admin Acetaminophen 650 mg 05/11/20 17:03 Acetaminophen 325 Mg Tablet PO Q6H PRN Pain, Mild (Pain Scale 1-3) Albuterol Sulfate 1 puff 05/11/20 10:50 Albuterol Sulfate 90 Mcg 8 Gm Inhaler INHALE Q4H PRN Shortness of Breath/Wheezing Enoxaparin Sodium 40 mg 05/11/20 18:00 05/11/20 18:30 Enoxaparin Sodium 40 Mg/0.4 Ml Syringe SUBCUT 40 mg Q24H RAISA Administration Hydromorphone HCl 0.5 mg 05/11/20 18:17 05/12/20 12:20 Hydromorphone Hcl 0.5 Mg/0.5 Ml Syringe IVPUSH 0.5 mg Q4H PRN Administration Pain, Severe (Pain Scale 7-10) Ceftriaxone Sodium 1 gm/ 50 mls @ 100 mls/hr 05/11/20 10:45 05/12/20 10:09 Sodium Chloride IV Infused Q24H RAISA Infusion Sodium Chloride 1,000 mls @ 100 mls/hr 05/11/20 17:03 05/12/20 03:35 Ns IVCONT 100 mls/hr .Q10H RAISA Administration Insulin Glargine 14 unit 05/12/20 09:00 05/12/20 08:16 Insulin Glargine,Hum.Rec.Anlog 100 Unit/Ml 10 Ml Vial SUBCUT 14 unit DAILY RAISA Administration Insulin Human Lispro 0 unit 05/11/20 17:03 05/12/20 11:29 Insulin Lispro 100 Unit/Ml 3 Ml Vial SUBCUT 05/12/20 17:04 4 unit QIDACHS RAISA Administration Protocol Lamotrigine 200 mg 05/11/20 21:00 05/12/20 08:22 Lamotrigine 100 Mg Tablet PO 200 mg BID RAISA Administration Lorazepam 1 mg 05/11/20 10:41 Lorazepam 1 Mg Tablet PO BID PRN Anxiety Metoclopramide HCl 10 mg 05/11/20 07:54 05/12/20 08:18 Metoclopramide Hcl 10 Mg/2 Ml Vial IVPUSH 10 mg Q6H PRN Administration Nausea Metoprolol Tartrate 25 mg 05/11/20 21:00 05/12/20 08:22 Metoprolol Tartrate 25 Mg Tablet PO 25 mg BID RAISA Administration Protocol Midodrine 5 mg 05/12/20 09:00 05/12/20 08:22 Midodrine Hcl 5 Mg Tablet PO 5 mg DAILY RAISA Administration Omeprazole 20 mg 05/11/20 21:00 05/12/20 09:41 Omeprazole 20 Mg Capsule.Dr PO 20 mg BID PENDING SALE TO [facility] Administration Pharmacy Consult 1 each 05/11/20 04:35 Consult Rx Perform Med Rec MISCELLANE ONCE PRN Consult order Sodium Chloride 3 ml 05/11/20 17:03 05/12/20 08:18 0.9 % Sodium Chloride Flush 3 Ml Syringe IVFLUSH 3 ml QSHIFT RAISA Administration Ziprasidone 40 mg 05/11/20 21:00 05/11/20 21:16 Ziprasidone 40 Mg Capsule PO Not Given BEDTIME PENDING SALE TO [facility] Labs CBC & Chem 7: 05/12/20 06:05 05/12/20 06:05 Microbiology Microbiology Results: Microbiology 05/11/20 Unknown Urine clean catch - Clean Catch Midstream Urine Culture - Final 05/11/20 04:59 Blood - Venous Blood Culture - Preliminary No growth after 24 hours. 05/11/20 04:58 Blood - Venous Blood Culture - Preliminary No growth after 24 hours. Assessment and Plan (1) Intractable nausea and vomiting: Status: Acute (2) Diabetic gastroparesis: Status: Acute (3) UTI (urinary tract infection): Status: Acute Assessment and Plan: 44-year-old female with past medical history of diabetes and gastroparesis pres ented with abdominal pain nausea vomiting and diarrhea and found to have sepsis likely due to UTI. Sepsis secondary to UTI. Patient complaining of cloudy urine urine culture is pending will continue IV ceftriaxone and follow urine and blood culture. WBC is gradually trending down leukocytosis likely related to stress and UTI will follow CBC Intractable nausea vomiting. Likely related to diabetic gastroparesis use of marijuana continue antiemetics IV fluids and clear liquid diet since patient is not tolerating by mouth, due to persistent nausea will taper IV Dilaudid place patient on K-pad and Toradol. Diarrhea likely overflow since CT scan reported prominent stool burden patient after admission had couple loose stools will hold off on further imaging studies and follow clinical course Diabetes mellitus on insulin patient is on Toujeo that is non formulary therefore converted to Lantus dose was reduced to 50% secondary to nausea vomiting and poor by mouth intake will continue insulin sliding scale and follow point of cares closely. Patient blood sugar remains elevated but stable around 200 Mood disorder will continue home medication including lamotrigine, lorazepam and ziprasidone. DVT prophylaxis on Lovenox
[2020-05-12 16:24] LABS: Glucose, Whole Blood 161 mg/dL (60-115)
[2020-05-12] MEDS: Enoxaparin Sodium 40 MG/0.4 ML SYRINGE SUBCUT (17:04)
[2020-05-12 20:59] LABS: Glucose, Whole Blood 196 mg/dL (60-115)
[2020-05-12] MEDS: Ziprasidone 40 MG CAPSULE PO (21:03)
[2020-05-13] MEDS: HYDROmorphone HCl 0.5 MG/0.5 ML SYRINGE IVPUSH ×3 (01:12→09:12)
[2020-05-13 04:00] VITALS: BP 158/82; PULSE 117; RESP 20; TEMP 36.9; O2SAT 98
[2020-05-13] MEDS: LORazepam 1 MG TABLET PO (04:06)
[2020-05-13] MEDS: Metoclopramide HCl 10 MG/2 ML VIAL IVPUSH (05:08)
[2020-05-13] MEDS: 0.9 % Sodium Chloride Flush 3 ML SYRINGE IVFLUSH (05:08)
[2020-05-13 08:00] VITALS: BP 182/80; PULSE 125; RESP 20; TEMP 36.6; O2SAT 96
[2020-05-13 08:27] LABS: Glucose, Whole Blood 198 mg/dL (60-115)
[2020-05-13 08:32] VITALS: BP 182/80; PULSE 125
[2020-05-13] MEDS: Metoprolol Tartrate 25 MG TABLET PO (08:32)
[2020-05-13] MEDS: Omeprazole 20 MG CAPSULE.DR PO (08:32)
[2020-05-13] MEDS: lamoTRIgine 100 MG TABLET 200 MG PO (08:32)
[2020-05-13] MEDS: Insulin Glargine,Hum.rec.anlog 100 UNIT/ML 10 ML VIAL 14 UNIT SUBCUT (08:35)
[2020-05-13] MEDS: 0.9 % Sodium Chloride 1,000 ML 100 ML IVCONT (08:42)
[2020-05-13 11:06] LABS: MANUAL DIFF FLAG NO
[2020-05-13 11:07] LABS: Basophils Percent Auto 0.3 % (0-2); Hematocrit 34.2 % (37-47); Hemoglobin 10.9 g/dl (12.0-16.0); Imm Gran Abs Auto 0.04 X10*3/uL (0.00-0.03); Imm Gran Pct Auto 0.3 % (0.0-0.4); Lymphocytes Absolute Auto 2.3 X10*3/uL (1.2-4.9); Mean Corpuscular HGB Conc 31.9 g/dl (31.0-35.0); Mean Corpuscular Hemoglobin 27.2 pg (27.0-33.0); Mean Corpuscular Volume 85.3 fL (80-98); Mean Platelet Volume 9.1 fL (9.4-12.3); Monocytes Absolute Auto 0.6 X10*3/uL (0.1-1.2); Neutrophils Absolute Auto 8.7 X10*3/uL (2.0-8.3); Neutrophils Percent Auto 74.4 % (45-73); Platelet Count 511 X10*3/uL (160-400); Red Blood Count 4.01 X10*6/uL (4.20-5.50); Red Cell Distribution Width 13.7 % (11.0-16.0); White Blood Count 11.7 X10*3/uL (4.8-10.8)
[2020-05-13 11:42] LABS: Anion Gap 14 (12-20); Blood Urea Nitrogen 8 mg/dL (9-16); Calcium 7.5 mg/dL (8.4-10.2); Carbon Dioxide 25 mmol/L (22-29); Chloride 98 mmol/L (96-108); Creatinine Clr Calc Pharmacy 106.4; Estimated Glomerular Filt Rate > 60; Glucose Random 271 mg/dL (60-115); Potassium 3.6 mmol/l (3.3-5.1); Sodium 133 mmol/L (135-145)
[2020-05-13] MEDS: cefTRIAXone sodium 1 GM in 0.9 % Sodium Chloride 50 ML IV (11:48)
[2020-05-13 11:57] LABS: Glucose, Whole Blood 234 mg/dL (60-115)
[2020-05-13 12:00] VITALS: BP 150/78; PULSE 100; RESP 20; TEMP 37.1; O2SAT 99
[2020-05-13 15:27] VITALS: BP 141/96; PULSE 120; RESP 16; TEMP 36; O2SAT 100
--- NOTE | 2020-05-13 15:44 | PM.DS ---
DS: Providers Provider Date of admission: 05/11/20 09:57 Primary care physician: Yulisa Avila MD DS: Diagnosis Discharge Diagnosis (1) Intractable nausea and vomiting: Status: Acute (2) Diabetic gastroparesis: Status: Acute (3) UTI (urinary tract infection): Status: Acute DS: Summary Hospital Course Hospital Course: Chief Complaint: Nausea, vomiting, diarrhea, abdominal pain this is a 44-year-old female with a history of diabetic gastroparesis who presents to the emergency department with multiple complaints. She reports onset of generalized abdominal pain yesterday. This has been associated with nausea, nonbloody emesis and small amount of diarrhea. She also reports fever and chills. She denies any recent travel, takeout food, sick contacts. In the emergency department she was noted to have a low-grade fever of 100.7 on arrival and she was also tachycardic. Lab work revealed leukocytosis of 26.7 as well as glucose of 350. She underwent a CAT scan of the abdomen which showed moderate stool burden but no evidence of infectious process. She received antiemetics, IV fluid. She continued to have nausea and vomiting the decision was made to admit her for further management. hospital course Intractable nausea and vomiting patient was admitted to medical floor and was placed on clear liquid diet IV fluid and pain medication patient's symptoms of nausea vomiting have significantly improved her diet has been advanced to diabetic her abdominal pain has resolved therefore patient is being discharged home on all of her baseline medication her symptoms were most likely related to gastroparesis and use of marijuana. diarrhea has resolved patient likely had constipation with overflow. Diabetes mellitus patient has been recommended to resume toujeo. Sepsis secondary to UTI initially felt to have sepsis due to UTI urine culture and blood culture showed no growth patient did not have sepsis likely symptoms were related to intractable nausea vomiting and had stress-induced leukocytosis. Time Spent with Patient Time attestation: Total time spent providing and/or coordinating discharge services: Physical Exam Vital Signs: Vital Signs: Vital Signs Temp Pulse Resp BP Pulse Ox 05/13/20 15:27 96.8 F 120 H 16 141/96 H 100 05/13/20 12:00 98.7 F 100 20 150/78 H 99 05/13/20 08:32 125 H 182/80 H 05/13/20 08:00 97.8 F 125 H 20 182/80 H 96 05/13/20 04:00 98.4 F 117 H 20 158/82 H 98 05/12/20 23:13 98.6 F 92 18 117/67 99 05/12/20 21:04 104 H 102/50 L 05/12/20 20:00 98.3 F 104 H 16 102/50 L 97 Body Mass Index 27.4 General patient resting comfortably in no acute distress. Neck is supple no JVD. CVS regular rate rhythm, Respiratory lungs clear to auscultation, no respiratory distress, no wheeze, no rhonchi. Gastrointestinal abdomen soft, nontender, bowel sounds audible, no no guarding , no rigidity. Extremities no clubbing cyanosis or edema. Neuro nonfocal patient moving all 4 extremity speech clear. Skin no rash DS: Data Data Completed and Pending Labs on day of discharge: Labs from last 24 hours 05/13/20 05/13/20 05/13/20 11:36 10:51 10:47 WBC 11.7 H RBC 4.01 L Hgb 10.9 L Hct 34.2 L MCV 85.3 MCH 27.2 MCHC 31.9 RDW 13.7 Plt Count 511 H MPV 9.1 L Immature Gran % (Auto) 0.3 Neut % (Auto) 74.4 H Lymph % (Auto) 20.0 [place] % (Auto) 5.0 Eos % (Auto) 0.0 Baso % (Auto) 0.3 Lymph # (Auto) 2.3 [place] # (Auto) 0.6 Eos # (Auto) 0.0 Baso # (Auto) 0.0 Abs Immat Gran (auto) 0.04 H Absolute Neuts (auto) 8.7 H Absolute Nucleated RBC 0.000 Nucleated RBC % (auto) 0.0 Sodium 133 L Potassium 3.6 Chloride 98 Carbon Dioxide 25 Anion Gap 14 BUN 8 L D Creatinine 0.70 Estim Creat Clear Calc 106.4 Estimated GFR > 60 POC Glucose 234 H Random Glucose 271 H D Calcium 7.5 L 05/13/20 05/12/20 05/12/20 07:34 20:52 16:18 WBC RBC Hgb Hct MCV MCH MCHC RDW Plt Count MPV Immature Gran % (Auto) Neut % (Auto) Lymph % (Auto) [place] % (Auto) Eos % (Auto) Baso % (Auto) Lymph # (Auto) [place] # (Auto) Eos # (Auto) Baso # (Auto) Abs Immat Gran (auto) Absolute Neuts (auto) Absolute Nucleated RBC Nucleated RBC % (auto) Sodium Potassium Chloride Carbon Dioxide Anion Gap BUN Creatinine Estim Creat Clear Calc Estimated GFR POC Glucose 198 H 196 H 161 H Random Glucose Calcium Preliminary micro results at discharge 05/11/20 04:59 Blood Culture - Preliminary Blood - Venous No growth after 48 hours. 05/11/20 04:58 Blood Culture - Preliminary Blood - Venous No growth after 48 hours. Discharge Plan Discharge Patient Disposition: Home, Self-Care Referrals: Yulisa Dyson MD [Primary Care Provider] - Discharge Medications: Continued metoclopramide HCl 5 mg/5 mL Solution 5 mg PO BID RF: 0 Toujeo Max U-300 SoloStar 300 unit/mL (3 mL) Insulin Pen 35 unit SUBCUT DAILY RF: 0 midodrine 5 mg Tablet 5 mg PO DAILY RF: 0 omeprazole 20 mg Capsule,Delayed Release(Dr/Ec) 20 mg PO BID RF: 0 ziprasidone HCl 40 mg Capsule 40 mg PO BEDTIME RF: 0 lorazepam 1 mg Tablet 1 mg PO BID PRN (Reason: Anxiety) RF: 0 metoprolol tartrate 25 mg Tablet 25 mg PO BID RF: 0 Novolog Flexpen U-100 Insulin pen injector 3 - 5 units subcut RF: 0 albuterol 90 mcg/actuation Aerosol See Rx Instructions .ROUTE .COMPLEX RF: 0 lamotrigine 200 mg Tablet 200 mg PO BID RF: 0 zolpidem 10 mg Tablet 10 mg PO BEDTIME RF: 0 Discharge Orders: Discharge Order (Routine); Ordered 05/13/20 Ordered By: Asuncion Whipple Diet: diabetic diet Activity on Discharge: As tolerated Visit Report Forms: Patient Portal Discharge page Care Plan Goals: continue outpatient medication Health Concerns: follow blood sugar closely and take insulin as prescribed Plan of Treatment: close outpatient follow-up with PCP
[2020-05-13 16:48] LABS: Glucose, Whole Blood 292 mg/dL (60-115)
--- NOTE | 2020-05-13 16:51 | PC.NURSE ---
Patient tolerated lunch, right chest port heparinized and then de-accessed w/ no problems. awaiting ride home from .
== END 2020-05-13 17:20 | disposition home or self-care (01) | DRG 74 ==
LOC: HO.ED 09:11 → HO.IMC 16:17
PROVIDERS: Emergency Medicine; Physician Assistant Medical; Admitting Provider Hospitalist; Emergency Provider Emergency Medicine; PCP Internal Medicine; Visit Provider Hospitalist
DX: E11.43 Type 2 diabetes mellitus with diabetic autonomic (poly)neuropathy (principal); N39.0 Urinary tract infection, site not specified; K31.84 Gastroparesis; F31.9 Bipolar disorder, unspecified; D72.829 Elevated white blood cell count, unspecified; Z20.828 Contact with and (suspected) exposure to other viral communicable diseases; I25.2 Old myocardial infarction; Z87.440 Personal history of urinary (tract) infections; Z88.5 Allergy status to narcotic agent; Z79.4 Long term (current) use of insulin; Z79.899 Other long term (current) drug therapy
CPT/HCPCS: 36415; 71045; 74176; 80048; 80076; 81001; 81003; 81015; 82803; 82947; 83605; 83690; 83735; 84484; 85025; 85610; 85730; 87040; 87086; 87635; 93005; 96361; 96365; 96375; 99285; 99291; J0696; J1170; J1200; J1642; J1650; J2543; J2765

== ENCOUNTER 2020-06-01 15:02 | Inpatient (IN) | payer OTHER, SELFPAY ==
[2020-06-01] VITALS (9 sets, daily range): BP systolic 145–172; BP diastolic 74–93; PULSE 112–134; RESP 15–33; TEMP 36.1–37.3; O2SAT 94–100; BMI 25.2; BMI 27.4
--- NOTE | 2020-06-01 | XR_ITS ---
EXAMINATION: XR CHEST CLINICAL INFORMATION: Abdominal pain. Baseline evaluation. COMPARISON: CXR from 05/11/2020 TECHNIQUE: Frontal view of the chest was obtained. FINDINGS: There is a right chest wall medication port with tip of catheter located in the distal superior vena cava. The lungs are well expanded and clear. No consolidation, pleural effusion or pneumothorax. The cardiomediastinal silhouette has normal size and contour. The visualized bones, and upper abdomen, are unremarkable. XR/XR chest 1V IMPRESSION: No acute pulmonary disease.
--- NOTE | 2020-06-01 16:47 | ED_ITS ---
HPI - Abdominal Pain General Chief Complaint: Nausea/Vomiting/Diarrhea Stated Complaint: vomiting Time Seen by Provider: 06/01/20 16:42 Source: patient Mode of arrival: ambulatory Limitations: no limitations History of Present Illness HPI narrative: 44-year-old female with history of diabetes complicated with diabetic gastroparesis, patient get episodes of abdominal pain/nausea/vomiting every couple weeks, patient had several prior hospitalization for that reason, patient presented with similar symptoms of nausea, vomiting, and crampy abdominal pain. Patient describes the pain as started 2 days ago, constant but fluctuate when it is severe it is 10/10, pain is associated with nausea and vomiting and hyperven tilation, nothing relief the pain, nothing make it worse. Related Data Home Medications Medication Instructions Recorded Confirmed Toujeo Max U-300 SoloStar 35 unit SUBCUT DAILY 05/11/20 06/01/20 lamotrigine 200 mg PO BID 05/11/20 06/01/20 lorazepam 1 mg PO BID PRN 05/11/20 06/01/20 metoclopramide HCl 5 mg PO BID 05/11/20 06/01/20 midodrine 5 mg PO DAILY 05/11/20 06/01/20 omeprazole 20 mg PO BID 05/11/20 06/01/20 ziprasidone HCl 40 mg PO BEDTIME 05/11/20 06/01/20 zolpidem 10 mg PO BEDTIME 05/11/20 06/01/20 insulin aspart U-100 [Novolog 0 unit SUBCUT DIRECTED 06/01/20 06/01/20 Flexpen U-100 Insulin] metoprolol tartrate 25 mg tablet 25 mg PO BID 06/01/20 06/01/20 risperidone 0.5 mg PO BID 06/01/20 06/01/20 Previous Rx's Medication Instructions Recorded albuterol sulfate 90 mcg/actuation 1 puff PO Q4H PRN 30 Days #8.5 g 05/25/20 aerosol inhaler Allergies Allergy/AdvReac Type Severity Reaction Status Date / Time morphine [MORPHINE] Allergy Intermediate RASH, Verified 05/11/20 05:35 hives, hives mushroom Allergy Intermediate HIVES/RASH Verified 05/11/20 05:35 mushroom Allergy Unknown throat Uncoded 05/11/20 04:41 closes up/difficult breathing mushrooms Allergy Unknown anaphylaxis Uncoded 05/11/20 04:41 Review of Systems Review of Systems All other systems are reviewed and are negative Constitutional: Reports as per HPI and Reports no additional constitutional complaints Eyes: Reports as per HPI and Reports no additional eye complaints Reports system reviewed and no additional complaints, except as documented Cardiovascular: Reports as per HPI and Reports no additional cardiovascular complaints Respiratory: Reports as per HPI and Reports no additional respiratory complaints Gastrointestinal: Reports as per HPI and Reports no additional gastrointestinal complaints Genitourinary: Reports no additional female genitourinary complaints Musculoskeletal: Reports no additional musculoskeletal complaints Skin/Breast: Reports system reviewed and no additional complaints, except as docu Psychiatric: Reports no additional psychiatric complaints Endocrine: Reports no additional endocrine complaints Hematologic/Lymphatic: Reports no additional hematologic/lymphatic complaints Allergic/Immunologic: Reports no additional allergic/immunologic complaints Reports system reviewed and no additional complaints, except as documented and Reports Abnormal speech present Physical Exam Vital Signs: Vital Signs: Last Vital Signs Temp 99.2 F 06/01/20 23:19 Pulse 134 H 06/01/20 23:19 Resp 19 06/01/20 23:19 BP 160/74 H 06/01/20 23:19 Pulse Ox 97 06/01/20 23:19 Body Mass Index 27.4 Vital signs have been reviewed as normal and appeared to be correct. Blood pressure in the high range. Heart rate in the Rapid range. Respiration rate in the high range. Temperature normal. Oxygen saturation normal. Abnormal vital sign was contributed to patient anxiety and hyperventilation. Appearance: Alert. Oriented X3. Anxious Head: Normal external exam. Normocephalic. Atraumatic. No Hernández signs noted. No raccoon eyes noted Eyes: PERRLA. EOMI. Conjunctiva and sclera normal. Eyelids normal. Dry mucous membrane ENT: EAC normal. TM's Normal. Pharynx normal. Uvula midline. Dry mucous membranes. No trismus noted. No drooling noted. No muffled voice noted. Neck: Normal inspection. Neck supple. FROM. No adenopathy. Thyroid Normal. No meningeal signs. No neck mass noted. CVS: Normal heart rate and rhythm. Heart sound normal. No murmurs noted. Pulses normal throughout. Respiratory: No respiratory distress. Painless inspiration. Breath sounds normal. No wheezes/rales/rhonchi noted. Chest nontender. No accessory muscle u daniel noted or decreased air movement noted. Abdomen: Diffuse tenderness patient refused exam due to severe pain. Bowel sounds normal in all 4 quadrants. No distention noted. No organomegaly noted. No visible injury noted. Back: No CVA tenderness. Full range of motion noted. Skin: Skin warm and dry. Normal skin color. Normal skin turgor. No rashes/lesions/lacerations noted. Extremities: No lower extremity edema. Extremities exhibit normal range of motion. Extremities nontender. Neuro: Oriented X 3. No motor deficit. No sensory deficit. Reflexes normal. MDM - Abdominal Pain MDM Narrative Medical decision making narrative: Assessment and plan. This is a 44-year-old female with history of complicated diabetic gastroparesis, patient presented with her typical symptoms of abdominal pain, nausea, vomiting. Patient usually require hospitalization to manage her symptoms for aggressive IV hydration and symptoms control. Patient has small amount of acetone, with anion gap of 22 patient may be an early or mild DKA give the patient 1 dose of IV insulin. Patient has a severe abdominal pain, patient had several CTs of the abdomen pelvis for similar presentation (last CT was 3 weeks ago), rather not expose the patient for ionized radiation CT study and do serial abdominal exam, patient will be admitted if CT decided to be necessarily can be done as an inpatient at this point I see no medical necessity to justify CT of the abdomen and pelvis. Due to severe dehydration patient is unable to give urine at this point, patient had history of UTI but patient do not have symptoms today. Patient's leukocytosis, tachycardia, and tachypnea is likely due to severe dehydration secondary to nausea and vomiting, and stress reaction. ED attending note 06/01/2020 10;15 pm: UA results just posted at 21:04 shows UTI patient is enrolled into sepsis protocol 30 cc/kg fluid was ordered, also ceftriaxone antibiotics, blood culture, lactic acid, and ABG were ordered. Will upgrade the admission to ICU, the case discussed with Dr. Valiente who accepted the patient. Repeat abdominal exam, abdomen is less tender but very sensitive to touch, unable to preformed abdominal exam at this point will do abdomen CT to rule out concomitant intra-abdominal pathology. ED attending note 06/02/2020 1;30 a.m. patient is feels better, with improvement of the nausea and vomiting, patient is not acidotic on the VBG, CT of the abdomen and pelvis showing no acute intra-abdominal pathology. Patient received IV fluid for DKA/UTI with mild sepsis. Patient has been accepted to ICU boarding in the ER until available bed. Lab Data Attestation: I reviewed the patient's lab results. Result diagrams: 06/01/20 17:38 06/01/20 21:04 Labs: Lab Results 06/01/20 06/01/20 06/01/20 Range/Units 17:38 17:38 17:38 WBC 15.1 H (4.8-10.8) X10*3/uL RBC 4.36 (4.20-5.50) X10*6/uL Hgb 12.0 (12.0-16.0) g/dl Hct 37.8 (37-47) % MCV 86.7 (80-98) fL MCH 27.5 (27.0-33.0) pg MCHC 31.7 (31.0-35.0) g/dl RDW 14.1 (11.0-16.0) % Plt Count 618 H (160-400) X10*3/uL MPV 9.1 L (9.4-12.3) fL Immature Gran % (Auto) 0.3 (0.0-0.4) % Neut % (Auto) 86.9 H (45-73) % Lymph % (Auto) 10.2 L (20-40) % Creek % (Auto) 2.2 (2-11) % Eos % (Auto) 0.1 (0-4) % Baso % (Auto) 0.3 (0-2) % Lymph # (Auto) 1.5 (1.2-4.9) X10*3/uL Creek # (Auto) 0.3 (0.1-1.2) X10*3/uL Eos # (Auto) 0.0 (0.0-0.4) X10*3/uL Baso # (Auto) 0.1 (0.0-0.2) X10*3/uL Abs Immat Gran (auto) 0.05 H (0.00-0.03) X10*3/uL Absolute Neuts (auto) 13.1 H (2.0-8.3) X10*3/uL Absolute Nucleated RBC 0.000 (0.0-0.012) X10*3/uL Nucleated RBC % (auto) 0.0 (0.0-0.2) /100WBC Smear Tech's Comments VERIFIED Sodium 134 L (135-145) mmol/L Potassium 4.8 D (3.3-5.1) mmol/l Chloride 98 (96-108) mmol/L Carbon Dioxide 19 L (22-29) mmol/L Anion Gap 22 H (12-20) BUN 14 D (9-16) mg/dL Creatinine 1.03 (0.5-1.4) mg/dL Estim Creat Clear Calc 72.3 Estimated GFR 58 POC Glucose (60-115) mg/dL Random Glucose 389 H* (60-115) mg/dL Calcium 9.2 D (8.4-10.2) mg/dL Total Bilirubin 0.5 (0.0-1.0) mg/dL Direct Bilirubin 0.2 (0.0-0.5) mg/dL AST 11 (5-31) U/L ALT 7 (0-31) U/L Alkaline Phosphatase 137 H (39-117) U/L Total Protein 8.3 H (6.5-8.0) g/dL Albumin 4.7 (3.5-5.0) g/dL Lipase 8 (8-78) U/L Urine Color Urine Appearance Urine pH (5.0-8.0) Ur Specific Winters (1.005-1.025) Urine Protein (NEG-TRACE) MG/DL Urine Glucose (UA) (NEG) MG/DL Urine Ketones (NEG) MG/DL Urine Blood (NEG) Urine Nitrite (NEG) Ur Leukocyte Esterase (NEG) Urine RBC (0) /HPF Urine WBC (0-4) /HPF Ur Squamous Epith Cells /LPF Urine Bacteria /LPF Urine Mucus /LPF Acetone, Qual Small H (Negative) COVID-19 (PERIR) (Negative) COVID-19 Clin Com 06/01/20 06/01/20 06/01/20 Range/Units 19:37 20:21 21:02 WBC (4.8-10.8) X10*3/uL RBC (4.20-5.50) X10*6/uL Hgb (12.0-16.0) g/dl Hct (37-47) % MCV (80-98) fL MCH (27.0-33.0) pg MCHC (31.0-35.0) g/dl RDW (11.0-16.0) % Plt Count (160-400) X10*3/uL MPV (9.4-12.3) fL Immature Gran % (Auto) (0.0-0.4) % Neut % (Auto) (45-73) % Lymph % (Auto) (20-40) % Creek % (Auto) (2-11) % Eos % (Auto) (0-4) % Baso % (Auto) (0-2) % Lymph # (Auto) (1.2-4.9) X10*3/uL Creek # (Auto) (0.1-1.2) X10*3/uL Eos # (Auto) (0.0-0.4) X10*3/uL Baso # (Auto) (0.0-0.2) X10*3/uL Abs Immat Gran (auto) (0.00-0.03) X10*3/uL Absolute Neuts (auto) (2.0-8.3) X10*3/uL Absolute Nucleated RBC (0.0-0.012) X10*3/uL Nucleated RBC % (auto) (0.0-0.2) /100WBC Smear Tech's Comments Sodium (135-145) mmol/L Potassium (3.3-5.1) mmol/l Chloride (96-108) mmol/L Carbon Dioxide (22-29) mmol/L Anion Gap (12-20) BUN (9-16) mg/dL Creatinine (0.5-1.4) mg/dL Estim Creat Clear Calc Estimated GFR POC Glucose 364 H* 370 H* (60-115) mg/dL Random Glucose (60-115) mg/dL Calcium (8.4-10.2) mg/dL Total Bilirubin (0.0-1.0) mg/dL Direct Bilirubin (0.0-0.5) mg/dL AST (5-31) U/L ALT (0-31) U/L Alkaline Phosphatase (39-117) U/L Total Protein (6.5-8.0) g/dL Albumin (3.5-5.0) g/dL Lipase (8-78) U/L Urine Color Urine Appearance Urine pH (5.0-8.0) Ur Specific Winters (1.005-1.025) Urine Protein (NEG-TRACE) MG/DL Urine Glucose (UA) (NEG) MG/DL Urine Ketones (NEG) MG/DL Urine Blood (NEG) Urine Nitrite (NEG) Ur Leukocyte Esterase (NEG) Urine RBC (0) /HPF Urine WBC (0-4) /HPF Ur Squamous Epith Cells /LPF Urine Bacteria /LPF Urine Mucus /LPF Acetone, Qual (Negative) COVID-19 ([facility]) Negative (Negative) COVID-19 Clin Com See Note 06/01/20 06/01/20 Range/Units 21:04 21:04 WBC (4.8-10.8) X10*3/uL RBC (4.20-5.50) X10*6/uL Hgb (12.0-16.0) g/dl Hct (37-47) % MCV (80-98) fL MCH (27.0-33.0) pg MCHC (31.0-35.0) g/dl RDW (11.0-16.0) % Plt Count (160-400) X10*3/uL MPV (9.4-12.3) fL Immature Gran % (Auto) (0.0-0.4) % Neut % (Auto) (45-73) % Lymph % (Auto) (20-40) % Creek % (Auto) (2-11) % Eos % (Auto) (0-4) % Baso % (Auto) (0-2) % Lymph # (Auto) (1.2-4.9) X10*3/uL Creek # (Auto) (0.1-1.2) X10*3/uL Eos # (Auto) (0.0-0.4) X10*3/uL Baso # (Auto) (0.0-0.2) X10*3/uL Abs Immat Gran (auto) (0.00-0.03) X10*3/uL Absolute Neuts (auto) (2.0-8.3) X10*3/uL Absolute Nucleated RBC (0.0-0.012) X10*3/uL Nucleated RBC % (auto) (0.0-0.2) /100WBC Smear Tech's Comments Sodium 134 L (135-145) mmol/L Potassium 4.5 (3.3-5.1) mmol/l Chloride 102 (96-108) mmol/L Carbon Dioxide 15 L (22-29) mmol/L Anion Gap 22 H (12-20) BUN 15 (9-16) mg/dL Creatinine 1.02 (0.5-1.4) mg/dL Estim Creat Clear Calc 73.0 Estimated GFR 59 POC Glucose (60-115) mg/dL Random Glucose 391 H* (60-115) mg/dL Calcium 8.5 D (8.4-10.2) mg/dL Total Bilirubin (0.0-1.0) mg/dL Direct Bilirubin (0.0-0.5) mg/dL AST (5-31) U/L ALT (0-31) U/L Alkaline Phosphatase (39-117) U/L Total Protein (6.5-8.0) g/dL Albumin (3.5-5.0) g/dL Lipase (8-78) U/L Urine Color YELLOW Urine Appearance CLOUDY Urine pH 6.0 (5.0-8.0) Ur Specific Winters 1.020 (1.005-1.025) Urine Protein TRACE (NEG-TRACE) MG/DL Urine Glucose (UA) >=1000 H (NEG) MG/DL Urine Ketones 40 (NEG) MG/DL Urine Blood 1+ H (NEG) Urine Nitrite NEG (NEG) Ur Leukocyte Esterase 1+ H (NEG) Urine RBC 10-14 H (0) /HPF Urine WBC 15-29 H (0-4) /HPF Ur Squamous Epith Cells 1+ /LPF Urine Bacteria 3+ /LPF Urine Mucus 1+ /LPF Acetone, Qual (Negative) COVID-19 ([facility]) (Negative) COVID-19 Clin Com Imaging Data CT scan - abdomen: Radiologist's impression: No significant change from previous. Some minimal stranding in the region the pancreas. An element of pancreatitis cannot be excluded. The bowel pattern is nonobstructing. There is no free fluid. Chest x-ray: Radiologist's impression: No acute pathology Critical Care Time Critical Care Time Critical Care Time: Yes Total Critical Care Time: 60 Attestation: I spent 60 minutes providing critical care level to the patient, including bedside care, checking labs, managing DKA with severe sepsis, talking to consultants, reviewing labs and old records. Discharge Plan Discharge Clinical Impression: Diabetic gastroparesis DKA (diabetic ketoacidoses) Qualifiers: Diabetes mellitus type: type 1 Diabetes mellitus complication detail: without coma Qualified Code(s): E10.10 - Type 1 diabetes mellitus with ketoacidosis without coma [facility] Past Medical History Medical History (Updated 06/02/20 @ 00:28 by ALESHA Dash) Anxiety Bipolar 1 disorder Diabetes Diabetic gastroparesis Gastroparesis NSTEMI (non-ST elevated myocardial infarction) Pancreatitis Recurrent UTI Surgical History H/O pyloroplasty H/O: hysterectomy History of appendectomy History of ERCP History of tonsillectomy Social History Social History Household Members: Spouse Housing: House Alcohol intake: never Smoking Status: Never smoker Smoked in Last 30 Days: No Use of substances other than those prescribed or required for medical reasons: No Substance Use Type: Marijuana Advance Directives: No Advance Directives Information Provided: Yes service: No Current occupational status: disabled
[2020-06-01] MEDS: LORazepam 2 MG/ML VIAL 1 MG IVPUSH ×2 (16:59→20:40)
[2020-06-01] MEDS: 0.9 % Sodium Chloride 500 ML 999 ML IVCONT (16:59)
[2020-06-01] MEDS: ondansetron HCL 4 MG/2 ML VIAL IVPUSH (16:59)
[2020-06-01] MEDS: HYDROmorphone HCl 0.5 MG/0.5 ML SYRINGE IVPUSH ×2 (16:59→19:30)
[2020-06-01 17:49] LABS: Basophils Absolute Auto 0.1 X10*3/uL (0.0-0.2); Basophils Percent Auto 0.3 % (0-2); Eosinophils Percent Auto 0.1 % (0-4); Hematocrit 37.8 % (37-47); MANUAL DIFF FLAG SCAN; Monocytes Percent Auto 2.2 % (2-11); PLT CLUMP 1; Red Cell Distribution Width 14.1 % (11.0-16.0); SCAN SMEAR FLAG 1
[2020-06-01 17:51] LABS: Imm Gran Abs Auto 0.05 X10*3/uL (0.00-0.03); Imm Gran Pct Auto 0.3 % (0.0-0.4); Lymphocytes Absolute Auto 1.5 X10*3/uL (1.2-4.9); Lymphocytes Percent Auto 10.2 % (20-40); Mean Corpuscular HGB Conc 31.7 g/dl (31.0-35.0); Mean Corpuscular Hemoglobin 27.5 pg (27.0-33.0); Mean Corpuscular Volume 86.7 fL (80-98); Mean Platelet Volume 9.1 fL (9.4-12.3); Monocytes Absolute Auto 0.3 X10*3/uL (0.1-1.2); Neutrophils Absolute Auto 13.1 X10*3/uL (2.0-8.3); Neutrophils Percent Auto 86.9 % (45-73); Red Blood Count 4.36 X10*6/uL (4.20-5.50); White Blood Count 15.1 X10*3/uL (4.8-10.8)
[2020-06-01 18:11] LABS: Platelet Count 618 X10*3/uL (160-400); SLIDE REVIEW VERIFIED
[2020-06-01 18:28] LABS: Acetone, serum QL Small (Negative)
[2020-06-01 18:32] LABS: Alanine Aminotransferase 7 U/L (0-31); Albumin Level 4.7 g/dL (3.5-5.0); Alkaline Phosphatase 137 U/L (39-117); Anion Gap 22 (12-20); Aspartate Amino Transferase 11 U/L (5-31); Bilirubin Direct 0.2 mg/dL (0.0-0.5); Bilirubin Total 0.5 mg/dL (0.0-1.0); Blood Urea Nitrogen 14 mg/dL (9-16); Calcium 9.2 mg/dL (8.4-10.2); Carbon Dioxide 19 mmol/L (22-29); Chloride 98 mmol/L (96-108); Creatinine Clr Calc Pharmacy 72.3; Estimated Glomerular Filt Rate 58; Glucose Random 389 mg/dL (60-115); Potassium 4.8 mmol/l (3.3-5.1); Sodium 134 mmol/L (135-145); Total Protein 8.3 g/dL (6.5-8.0)
--- NOTE | 2020-06-01 18:38 | PC.NURSE ---
pt sleeping on and off. reports 8/10 abd pain, nausea w/ small amount of vomiting bile-like emesis. pt sinus tach on 110s-120s on tele. provider aware of pt status
[2020-06-01 18:44] LABS: Lipase 8 U/L (8-78)
[2020-06-01] MEDS: 0.9 % Sodium Chloride 500 ML 1000 ML IV ×2 (19:31→19:38)
[2020-06-01] MEDS: Metoclopramide HCl 10 MG/2 ML VIAL IVPUSH ×2 (19:31→23:44)
[2020-06-01 20:11] LABS: COVID-19 Test Negative (Negative); IDNOW Serial# 9DD0AD1C
[2020-06-01] MEDS: Insulin Regular, Human 100 UNIT/ML 3 ML VIAL 8 UNIT IVPUSH (20:24)
[2020-06-01 20:27] LABS: Glucose, Whole Blood 364 mg/dL (60-115)
[2020-06-01 21:09] LABS: Glucose, Whole Blood 370 mg/dL (60-115)
[2020-06-01 21:12] LABS: Glucose Urine UA >=1000 MG/DL (NEG); Leukocyte Esterase Urine 1+ (NEG); Nitrite Urine NEG (NEG); Urine Blood 1+ (NEG); Urine Ketones 40 MG/DL (NEG); Urine Protein TRACE MG/DL (NEG-TRACE)
[2020-06-01 21:15] LABS: Appearance Urine CLOUDY; Color Urine YELLOW
[2020-06-01 21:21] LABS: Bacteria Urine 3+ /LPF; Mucus Urine 1+ /LPF; Squamous Epithelial Cell Urine 1+ /LPF
[2020-06-01 21:40] LABS: Anion Gap 22 (12-20); Blood Urea Nitrogen 15 mg/dL (9-16); Calcium 8.5 mg/dL (8.4-10.2); Carbon Dioxide 15 mmol/L (22-29); Chloride 102 mmol/L (96-108); Estimated Glomerular Filt Rate 59; Glucose Random 391 mg/dL (60-115); Potassium 4.5 mmol/l (3.3-5.1); Sodium 134 mmol/L (135-145)
[2020-06-01 22:52] LABS: Glucose, Whole Blood 353 mg/dL (60-115)
--- NOTE | 2020-06-01 22:57 | PM.CCHP ---
History of Present Illness Date of Service: 06/01/20 <ALESHA Dash - Last Filed: 06/02/20 02:11> Chief Complaint: nausea and vomiting <ALESHA Dash Last Filed: 06/02/20 02:11> patient is a 44-year-old female with a past medical history of diabetes and diabetic gastroparesis complaining of a nausea, vomiting and abdominal pain x3 days. She denies fever chills, bloody or black stools, blood in her urine, describes vomit as bright yellow , denies blood or coffee like grounds in vomitus. she denies any upper respiratory symptoms such as cough or congestion. she states the last time she was able to keep down any food was 3 days ago. she was just discharged from this hospital on May 13 for similar problems. Labs in the emergency department revealed leukocytosis with WBC 15.1, thrombocytosis at 618, sodium 134, potassium 4.8, carbon dioxide 19 with a gap of 22. blood glucose 389, acetone small and Urine showed pyuria. Lipase 8, liver labs WNL, covid negative. patient's vital signs are notable for tachycardia at 01:20, BP elevated at 172/88, respirations 16 and O2 sat duration 99% on room air, patient is afebrile. Sepsis protocol followed for fluids, BC and abx, lactate pending. <ALESHA Dash Last Filed: 06/02/20 02:11> Review of Systems Review of Systems: Constitutional: No Weight loss, No Fever, No Chills, No Night Sweats, + fatigue Cardiovascular: No Chest Pain, No SOB, No Dyspnea on Exertion, No Orthopnea, No Edema, No Palpitations Respiratory: No Cough, No Sputum, No Wheezing, No Dyspnea Gastrointestinal: + abdominal pain, + vomiting Genitourinary: no irregular bleeding, No Dysuria, No Urinary Frequency, No Hematuria, No Urinary Incontinence, No Urgency, No Flank Pain, No Urinary Flow Changes, No Hesitancy Musculoskeletal: No joint pain, No Myalgias, No Joint Swelling Skin: No Skin Lesions, No rash <ALESHA Dash Last Filed: 06/02/20 02:11> Yes all other systems are reviewed and are negative <ALESHA Dash Last Filed: 06/02/20 02:11> [facility] Past Medical History Medical History: Medical History Anxiety Bipolar 1 disorder Diabetes Diabetic gastroparesis Gastroparesis NSTEMI (non-ST elevated myocardial infarction) Pancreatitis Recurrent UTI <ALESHA Dash Last Filed: 06/02/20 02:11> Functional capacity: independent ambulation <ALESHA Dash Last Filed: 06/02/20 02:11> Family History Family history: reviewed and not pertinent <ALESHA Dash Last Filed: 06/02/20 02:11> Surgical History Surgical History: Surgical History H/O pyloroplasty H/O: hysterectomy History of appendectomy History of ERCP History of tonsillectomy <ALESHA Dash Last Filed: 06/02/20 02:11> Social History Social History: Social History Household Members: Spouse Housing: House Alcohol intake: never Smoking Status: Never smoker Substance Use Type: Marijuana service: No Current occupational status: disabled <ALESHA Dash Last Filed: 06/02/20 02:11> Meds Allergies/Adverse reactions: Allergies Allergy/AdvReac Type Severity Reaction Status Date / Time morphine [MORPHINE] Allergy Intermediate RASH, Verified 07/13/20 14:31 hives, hives mushroom Allergy Intermediate HIVES/RASH Verified 07/13/20 14:31 mushroom Allergy Unknown throat Uncoded 05/11/20 04:41 closes up/difficult breathing mushrooms Allergy Unknown anaphylaxis Uncoded 05/11/20 04:41 <ALESHA Dash Last Filed: 06/02/20 02:11> Home medications: Home Medications Medication Instructions Recorded Confirmed Type Toujeo Max U-300 SoloStar 35 unit SUBCUT DAILY 05/11/20 07/13/20 History lamotrigine 200 mg PO BID 05/11/20 07/13/20 History lorazepam 1 mg PO BID PRN 05/11/20 07/13/20 History metoclopramide HCl 5 mg PO BID 05/11/20 07/13/20 History midodrine 5 mg PO DAILY 05/11/20 07/13/20 History omeprazole 20 mg PO BID 05/11/20 07/13/20 History zolpidem 10 mg PO BEDTIME 05/11/20 07/13/20 History insulin aspart U-100 [Novolog 0 unit SUBCUT DIRECTED 06/01/20 07/13/20 History Flexpen U-100 Insulin] risperidone 0.5 mg PO BID 06/01/20 07/13/20 History <ALESHA Dash Last Filed: 06/02/20 02:11> Physical Exam Vital Signs: Vital Signs: Last Vital Signs Temp 98.6 F 06/01/20 18:38 Pulse 120 H 06/01/20 20:00 Resp 16 06/01/20 20:00 BP 172/88 H 06/01/20 20:00 Pulse Ox 99 06/01/20 20:00 Body Mass Index 27.4 <ALESHA Dash - Last Filed: 06/02/20 02:11> Const: General: cooperative and tired appearing <ALESHA Dash Last Filed: 06/02/20 02:11> Nutritional Appearance: average body habitus <ALESHA Dash Last Filed: 06/02/20 02:11> Orientation/consciousness: patient oriented x3 <ALESHA Dash Last Filed: 06/02/20 02:11> Limitations: no limitations <ALESHA Dash Last Filed: 06/02/20 02:11> HENMT: Head: Yes normal to inspection <ALESHA Dash Last Filed: 06/02/20 02:11> Face and sinus: Yes normal facial exam <ALESHA Dash Last Filed: 06/02/20 02:11> Mouth: mucous membranes dry <ALESHA Dash Last Filed: 06/02/20 02:11> Eyes: General: appearance normal, both eyes and all related structures <ALESHA Dash Last Filed: 06/02/20 02:11> Pupils: Equal, round and reactive pupils present <Tabby Holland AL - Last Filed: 06/02/20 02:11> EOM: EOMs intact bilaterally <Tabby Holland AL - Last Filed: 06/02/20 02:11> Neck: Neck: Yes normal visual inspection and Yes supple <Tabby Holland AL - Last Filed: 06/02/20 02:11> Resp: Effort & Inspection: normal respiratory effort and able to speak in complete sentences <Tabby Holland AL - Last Filed: 06/02/20 02:11> Auscultation: clear to auscultation bilaterally, no rales, no rhonchi and no wheezes <Tabby Holland AL - Last Filed: 06/02/20 02:11> Cardio: Rate: tachycardic <Tabby Holland AL - Last Filed: 06/02/20 02:11> Rhythm: regular rhythm <Tabby Holland AL - Last Filed: 06/02/20 02:11> Heart sounds: normal S1 and S2 <Tabby Holland AL - Last Filed: 06/02/20 02:11> GI: Other: CGM on RLQ <Tabby Holland AL - Last Filed: 06/02/20 02:11> Inspection: Yes obesity <Tabby Holland AL - Last Filed: 06/02/20 02:11> Palpation (GI): Soft to palpation and Tenderness to palpation present (GI) (diffuse) <Tabby Holland AL - Last Filed: 06/02/20 02:11> Auscultation: Hypoactive bowel sounds present <Tabby Holland AL - Last Filed: 06/02/20 02:11> Skin: General skin exam: no rashes or lesions noted <Tabby Holland AL - Last Filed: 06/02/20 02:11> Neuro: General: patient oriented x3 <Tabby Holland AL - Last Filed: 06/02/20 02:11> Cranial nerves: Yes Equal, round and reactive pupils present <ALESHA Dash - Last Filed: 06/02/20 02:11> Extrem: General: Yes normal to inspection and Yes no pedal edema <ALESHA Dash - Last Filed: 06/02/20 02:11> Psych: Appearance: grossly normal <ALESHA Dash - Last Filed: 06/02/20 02:11> Results Labs CBC and Chem 7: : 06/03/20 08:49 06/03/20 08:49 <ALESHA Dash - Last Filed: 06/02/20 02:11> Labs: Laboratory Results - last 24 hr 06/01/20 06/01/20 06/01/20 17:38 17:38 17:38 MCV 86.7 MCH 27.5 MCHC 31.7 RDW 14.1 Plt Count 618 H MPV 9.1 L Immature Gran % (Auto) 0.3 Neut % (Auto) 86.9 H Lymph % (Auto) 10.[address] [facility] % (Auto) 2.2 Eos % (Auto) 0.1 Baso % (Auto) 0.3 Lymph # (Auto) 1.5 [facility] # (Auto) 0.3 Eos # (Auto) 0.0 Baso # (Auto) 0.1 Abs Immat Gran (auto) 0.05 H Absolute Neuts (auto) 13.1 H Absolute Nucleated RBC 0.000 Nucleated RBC % (auto) 0.0 Smear Tech's Comments VERIFIED Anion Gap 22 H Estim Creat Clear Calc 72.3 Estimated GFR 58 POC Glucose Random Glucose 389 H* Calcium 9.2 D Total Bilirubin 0.5 Direct Bilirubin 0.2 AST 11 ALT 7 Alkaline Phosphatase 137 H Total Protein 8.3 H Albumin 4.7 Lipase 8 Urine Color Urine Appearance Urine pH Ur Specific [place] Urine Protein Urine Glucose (UA) Urine Ketones Urine Blood Urine Nitrite Ur Leukocyte Esterase Urine RBC Urine WBC Ur Squamous Epith Cells Urine Bacteria Urine Mucus Acetone, Qual Small H COVID-19 ([facility]) COVID-19 Clin Com 06/01/20 06/01/20 06/01/20 19:37 20:21 21:02 MCV MCH MCHC RDW Plt Count MPV Immature Gran % (Auto) Neut % (Auto) Lymph % (Auto) [facility] % (Auto) Eos % (Auto) Baso % (Auto) Lymph # (Auto) [facility] # (Auto) Eos # (Auto) Baso # (Auto) Abs Immat Gran (auto) Absolute Neuts (auto) Absolute Nucleated RBC Nucleated RBC % (auto) Smear Tech's Comments Anion Gap Estim Creat Clear Calc Estimated GFR POC Glucose 364 H* 370 H* Random Glucose Calcium Total Bilirubin Direct Bilirubin AST ALT Alkaline Phosphatase Total Protein Albumin Lipase Urine Color Urine Appearance Urine pH Ur Specific [place] Urine Protein Urine Glucose (UA) Urine Ketones Urine Blood Urine Nitrite Ur Leukocyte Esterase Urine RBC Urine WBC Ur Squamous Epith Cells Urine Bacteria Urine Mucus Acetone, Qual COVID-19 ([facility]) Negative COVID-19 Clin Com See Note 06/01/20 06/01/20 06/01/20 21:04 21:04 22:48 MCV MCH MCHC RDW Plt Count MPV Immature Gran % (Auto) Neut % (Auto) Lymph % (Auto) [facility] % (Auto) Eos % (Auto) Baso % (Auto) Lymph # (Auto) [facility] # (Auto) Eos # (Auto) Baso # (Auto) Abs Immat Gran (auto) Absolute Neuts (auto) Absolute Nucleated RBC Nucleated RBC % (auto) Smear Tech's Comments Anion Gap 22 H Estim Creat Clear Calc 73.0 Estimated GFR 59 POC Glucose 353 H* Random Glucose 391 H* Calcium 8.5 D Total Bilirubin Direct Bilirubin AST ALT Alkaline Phosphatase Total Protein Albumin Lipase Urine Color YELLOW Urine Appearance CLOUDY Urine pH 6.0 Ur Specific [place] 1.020 Urine Protein TRACE Urine Glucose (UA) >=1000 H Urine Ketones 40 Urine Blood 1+ H Urine Nitrite NEG Ur Leukocyte Esterase 1+ H Urine RBC 10-14 H Urine WBC 15-29 H Ur Squamous Epith Cells 1+ Urine Bacteria 3+ Urine Mucus 1+ Acetone, Qual COVID-19 ([facility]) COVID-19 Clin Com <ALESHA Dash - Last Filed: 06/02/20 02:11> Imaging Radiologist's Impressions: Impressions Chest X-Ray 06/01/20 00:00 IMPRESSION: No acute pulmonary disease. CT/CT abdomen pelvis wo con IMPRESSION: No significant change from previous. Some minimal stranding in the region the pancreas. An element of pancreatitis cannot be excluded. The bowel pattern is nonobstructing. There is no free fluid. Thick-walled bladder. Cystitis cannot be excluded. <ALESHA Dash - Last Filed: 06/02/20 02:11> Assessment and Plan (1) Diabetic gastroparesis: Status: Acute <ALESHA Dash - Last Filed: 06/02/20 02:11> (2) DKA (diabetic ketoacidoses): Qualifiers: Diabetes mellitus complication detail: without coma Diabetes mellitus type: type 1 Qualified Code(s): E10.10 - Type 1 diabetes mellitus with ketoacidosis without coma <ALESHA Dash - Last Filed: 06/02/20 02:11> Status: Resolved <ALESHA Dash - Last Filed: 06/02/20 02:11> IVF and insulin, patient only has a small amount of ketones, monitor blood sugar and electrolytes <ALESHA Dash - Last Filed: 06/02/20 02:11> (3) Abdominal pain: Status: Resolved <ALESHA Dash - Last Filed: 06/02/20 02:11> 2/2 DKA? will get CT of abdomen despite patient having several of these in the past including one on 05/11. ED doctor feels the level of tenderness warrants repeating the CT scan tonight. CT Scan showed an element of pancreatitis cannot be excluded...minimal stranding may represent the baseline however lipase is WNL. <ALESHA Dash - Last Filed: 06/02/20 02:11> (4) Nausea & vomiting: Status: Resolved <ALESHA Dash - Last Filed: 06/02/20 02:11> Pt getting reglan and IVF, 2/2 DKA or known marijuana use as per hospital records <ALESHA Dash - Last Filed: 06/02/20 02:11> (5) Sepsis due to urinary tract infection: Status: Resolved <ALESHA Dash - Last Filed: 06/02/20 02:11> Lactic acid 2.2 could be 2/2 DKA, sepsis protocol followed with fluids, 1g ceftriaxine given, pyuria, urine culture pending, bc pending. pt has hx of multiple UTI's, CT scan showed thick walled bladder, ? cystitis <ALESHA Dahs - Last Filed: 06/02/20 02:11>
[2020-06-01] MEDS: Insulin Regular/NS 100 UNIT/100 ML PLAST..BAG 6 UNIT IVCONT (23:12)
[2020-06-01] MEDS: 0.9 % Sodium Chloride 2,313.33 ML 2313.33 ML IVCONT (23:13)
[2020-06-01] MEDS: cefTRIAXone sodium 1 GM in 0.9 % Sodium Chloride 100 ML IV (23:14)
[2020-06-01 23:18] LABS: PCO2 VBG 37 mmhg; pH VBG 7.35 (7.32-7.43)
[2020-06-01 23:19] LABS: Base Excess VBG -5.1 mmol/L; Blood Gas Serial # 5414; HCO3 VBG 20 mmol/L; Oxygen Saturation VBG 80.4 %; PO2 VBG 48 mmhg
[2020-06-01 23:46] LABS: Lactic Acid 2.2 mmol/L (0.5-2.0)
[2020-06-02] VITALS (13 sets, daily range): BP systolic 93–187; BP diastolic 45–92; PULSE 70–135; RESP 12–23; TEMP 36.4–37.2; O2SAT 91–99; BMI 25.2
--- NOTE | 2020-06-02 | CT_ITS ---
EXAMINATION: CT ABDOMEN AND PELVIS WITHOUT CONTRAST CLINICAL INFORMATION: Severe abdominal pain COMPARISON: 05/11/2020 TECHNIQUE: Multidetector volumetric imaging was performed from the superior aspect of the liver through the pubic symphysis. Sagittal and coronal reformatted images were obtained on the technologist's workstation. This CT examination was performed using dose optimization techniques as appropriate, variously including the following: *Automated exposure control *Adjustment of mA and/or kV according to patient size (this includes techniques or standardized protocols for targeted exams where dose is matched to indication/reason for exam; i.e. extremities or head) *Use of iterative reconstruction technique DLP: 478 mGy-cm FINDINGS: LUNG BASES: The visualized lung bases are unremarkable. LIVER, GALLBLADDER, AND BILIARY TREE: The liver is normal in size, shape, and attenuation. No focal hepatic lesion or biliary ductal dilatation is present. The gallbladder is unremarkable with no evidence of radiopaque gallstones, gallbladder wall thickening, or obvious pericholecystic inflammatory changes. PANCREAS: Unremarkable. Minimal stranding may represent the baseline SPLEEN: Unremarkable. ADRENAL GLANDS: Unremarkable. KIDNEYS AND URETERS: The kidneys are normal in size, shape, and attenuation. No hydronephrosis, hydroureter, or calculi seen. No perinephric stranding. BLADDER: Thick-walled bladder once again seen GASTROINTESTINAL TRACT: The small and large bowel are unremarkable. The appendix is unremarkable. ABDOMINAL WALL: No significant hernia is appreciated. LYMPH NODES: Normal. VASCULAR: Unremarkable. PELVIC VISCERA: Unremarkable. OSSEOUS STRUCTURES: Unremarkable. CT/CT abdomen pelvis wo con IMPRESSION: No significant change from previous. Some minimal stranding in the region the pancreas. An element of pancreatitis cannot be excluded. The bowel pattern is nonobstructing. There is no free fluid. Thick-walled bladder. Cystitis cannot be excluded.
[2020-06-02 01:14] LABS: Reflex Lactate? Lactic Acid Added
[2020-06-02 01:24] LABS: Glucose, Whole Blood 285 mg/dL (60-115)
[2020-06-02 01:53] LABS: Anion Gap 21 (12-20); Blood Urea Nitrogen 14 mg/dL (9-16); Calcium 8.5 mg/dL (8.4-10.2); Carbon Dioxide 17 mmol/L (22-29); Chloride 104 mmol/L (96-108); Creatinine Clr Calc Pharmacy 81.9; Estimated Glomerular Filt Rate > 60; Glucose Random 322 mg/dL (60-115); Magnesium 1.7 mg/dL (1.6-2.6); Phosphorus 1.8 mg/dL (2.7-4.5); Potassium 5.2 mmol/l (3.3-5.1); Sodium 137 mmol/L (135-145)
[2020-06-02] MEDS: HYDROmorphone HCl 0.5 MG/0.5 ML SYRINGE IVPUSH ×5 (02:10→21:22)
[2020-06-02] MEDS: 0.9 % Sodium Chloride 1,000 ML 125 ML IVCONT (02:30)
[2020-06-02 02:53] LABS: ~Lactic Acid-LAB USE ONLY 1.5 mmol/L (0.5-2.0)
[2020-06-02 03:13] LABS: Glucose, Whole Blood 271 mg/dL (60-115)
[2020-06-02 05:46] LABS: MANUAL DIFF FLAG NO
[2020-06-02 05:50] LABS: Basophils Percent Auto 0.2 % (0-2); Hematocrit 30.3 % (37-47); Hemoglobin 9.7 g/dl (12.0-16.0); Imm Gran Abs Auto 0.04 X10*3/uL (0.00-0.03); Imm Gran Pct Auto 0.3 % (0.0-0.4); Lymphocytes Absolute Auto 2.2 X10*3/uL (1.2-4.9); Lymphocytes Percent Auto 15.2 % (20-40); Mean Corpuscular Hemoglobin 27.8 pg (27.0-33.0); Mean Corpuscular Volume 86.8 fL (80-98); Mean Platelet Volume 8.4 fL (9.4-12.3); Monocytes Absolute Auto 0.7 X10*3/uL (0.1-1.2); Monocytes Percent Auto 4.6 % (2-11); Neutrophils Absolute Auto 11.3 X10*3/uL (2.0-8.3); Neutrophils Percent Auto 79.7 % (45-73); Platelet Count 494 X10*3/uL (160-400); Red Blood Count 3.49 X10*6/uL (4.20-5.50); Red Cell Distribution Width 14.5 % (11.0-16.0); White Blood Count 14.2 X10*3/uL (4.8-10.8)
[2020-06-02 06:10] LABS: Glucose, Whole Blood 120 mg/dL (60-115)
[2020-06-02 06:24] LABS: Anion Gap 12 (12-20); Blood Urea Nitrogen 17 mg/dL (9-16); Carbon Dioxide 24 mmol/L (22-29); Chloride 108 mmol/L (96-108); Estimated Glomerular Filt Rate > 60; Glucose Random 138 mg/dL (60-115); Magnesium 1.8 mg/dL (1.6-2.6); Phosphorus 2.4 mg/dL (2.7-4.5); Potassium 4.4 mmol/l (3.3-5.1); Sodium 140 mmol/L (135-145)
--- NOTE | 2020-06-02 06:37 | PC.NURSE ---
ALL POC REPORTED TO SHANNON EDUARDO AND INSULIN DRIP ADJUSTED PER HER ORDERS.
[2020-06-02] MEDS: Lactated Ringers 1,000 ML 100 ML IVCONT ×2 (07:49→17:48)
[2020-06-02] MEDS: 0.9 % Sodium Chloride Flush 3 ML SYRINGE IVFLUSH ×3 (07:50→23:11)
[2020-06-02] MEDS: Amoxicillin/Potassium Clav 500 MG TABLET PO ×3 (07:50→23:09)
--- NOTE | 2020-06-02 07:53 | P.PNCC_ITS ---
Subjective Subjective Date of Service: 06/02/20 Interval History: 44-year-old type 1 diabetic who presented with mild diabetic ketoacidosis and this morning serum bicarb up to 24 no longer has a anion gap and the only thing of note was evidence of pyuria so presumably urinary tract infection and apparently the her usual diffuse abdominal pain complaint and and there is an underlying diabetic had gastro paresis but the CT scan of the abdomen completely benign and with electrolytes being fully restored and ability to eat and no discrepancy in bowel function she qualifies for transfer to a regular medical bed Physical Exam Vital Signs: Vital Signs: Last Vital Signs Temp 98.9 F 06/02/20 02:00 Pulse 105 H 06/02/20 07:00 Resp 16 06/02/20 07:00 BP 124/70 06/02/20 07:00 Pulse Ox 98 06/02/20 07:00 Body Mass Index 25.2 Const: Other: awake alert and oriented neurologic is nonfocal cardiac exam with no neck vein distension and good bilateral carotid upstrokes and no bruits with normal S1 normal S2 no gallops no murmurs skin is normal no edema no acrocyanosis no wounds chest percussed equally no clinical pleural effusion and no adventitious sounds and otherwise clear abdomen good bowel sounds no organomegaly a normal CT scan of the abdomen including gallbladder pancreas and normal bowel wall thickness including stomach Objective Data Labs CBC & Chem 7: 06/02/20 05:36 06/02/20 05:36 Labs: Laboratory Results - last 24 hr 06/01/20 06/01/20 06/01/20 17:38 17:38 17:38 WBC 15.1 H RBC 4.36 Hgb 12.0 Hct 37.8 MCV 86.7 MCH 27.5 MCHC 31.7 RDW 14.1 Plt Count 618 H MPV 9.1 L Immature Gran % (Auto) 0.3 Neut % (Auto) 86.9 H Lymph % (Auto) 10.2 L [place] % (Auto) 2.2 Eos % (Auto) 0.1 Baso % (Auto) 0.3 Lymph # (Auto) 1.5 [place] # (Auto) 0.3 Eos # (Auto) 0.0 Baso # (Auto) 0.1 Abs Immat Gran (auto) 0.05 H Absolute Neuts (auto) 13.1 H Absolute Nucleated RBC 0.000 Nucleated RBC % (auto) 0.0 Smear Tech's Comments VERIFIED VBG pH VBG pCO2 VBG pO2 VBG HCO3 VBG O2 Saturation VBG Base Excess Sodium 134 L Potassium 4.8 D Chloride 98 Carbon Dioxide 19 L Anion Gap 22 H BUN 14 D Creatinine 1.03 Estim Creat Clear Calc 72.3 Estimated GFR 58 POC Glucose Random Glucose 389 H* Lactic Acid Lactic Acid Fup @ 2Hr Calcium 9.2 D Phosphorus Magnesium Total Bilirubin 0.5 Direct Bilirubin 0.2 AST 11 ALT 7 Alkaline Phosphatase 137 H Total Protein 8.3 H Albumin 4.7 Lipase 8 Urine Color Urine Appearance Urine pH Ur Specific [place] Urine Protein Urine Glucose (UA) Urine Ketones Urine Blood Urine Nitrite Ur Leukocyte Esterase Urine RBC Urine WBC Ur Squamous Epith Cells Urine Bacteria Urine Mucus Acetone, Qual Small H COVID-19 ([facility]) [employer] 06/01/20 06/01/20 06/01/20 19:37 20:21 21:02 WBC RBC Hgb Hct MCV MCH MCHC RDW Plt Count MPV Immature Gran % (Auto) Neut % (Auto) Lymph % (Auto) [place] % (Auto) Eos % (Auto) Baso % (Auto) Lymph # (Auto) [place] # (Auto) Eos # (Auto) Baso # (Auto) Abs Immat Gran (auto) Absolute Neuts (auto) Absolute Nucleated RBC Nucleated RBC % (auto) Smear Tech's Comments VBG pH VBG pCO2 VBG pO2 VBG HCO3 VBG O2 Saturation VBG Base Excess Sodium Potassium Chloride Carbon Dioxide Anion Gap BUN Creatinine Estim Creat Clear Calc Estimated GFR POC Glucose 364 H* 370 H* Random Glucose Lactic Acid Lactic Acid Fup @ 2Hr Calcium Phosphorus Magnesium Total Bilirubin Direct Bilirubin AST ALT Alkaline Phosphatase Total Protein Albumin Lipase Urine Color Urine Appearance Urine pH Ur Specific [place] Urine Protein Urine Glucose (UA) Urine Ketones Urine Blood Urine Nitrite Ur Leukocyte Esterase Urine RBC Urine WBC Ur Squamous Epith Cells Urine Bacteria Urine Mucus Acetone, Qual COVID-19 ([facility]) Negative [email or web address] See Note 06/01/20 06/01/20 06/01/20 21:04 21:04 22:48 WBC RBC Hgb Hct MCV MCH MCHC RDW Plt Count MPV Immature Gran % (Auto) Neut % (Auto) Lymph % (Auto) [place] % (Auto) Eos % (Auto) Baso % (Auto) Lymph # (Auto) [place] # (Auto) Eos # (Auto) Baso # (Auto) Abs Immat Gran (auto) Absolute Neuts (auto) Absolute Nucleated RBC Nucleated RBC % (auto) Smear Tech's Comments VBG pH VBG pCO2 VBG pO2 VBG HCO3 VBG O2 Saturation VBG Base Excess Sodium 134 L Potassium 4.5 Chloride 102 Carbon Dioxide 15 L Anion Gap 22 H BUN 15 Creatinine 1.02 Estim Creat Clear Calc 73.0 Estimated GFR 59 POC Glucose 353 H* Random Glucose 391 H* Lactic Acid Lactic Acid Fup @ 2Hr Calcium 8.5 D Phosphorus Magnesium Total Bilirubin Direct Bilirubin AST ALT Alkaline Phosphatase Total Protein Albumin Lipase Urine Color YELLOW Urine Appearance CLOUDY Urine pH 6.0 Ur Specific [place] 1.020 Urine Protein TRACE Urine Glucose (UA) >=1000 H Urine Ketones 40 Urine Blood 1+ H Urine Nitrite NEG Ur Leukocyte Esterase 1+ H Urine RBC 10-14 H Urine WBC 15-29 H Ur Squamous Epith Cells 1+ Urine Bacteria 3+ Urine Mucus 1+ Acetone, Qual COVID-19 ([facility]) COVID-19 [employer] 06/01/20 06/01/20 06/02/20 23:08 23:08 01:20 WBC RBC Hgb Hct MCV MCH MCHC RDW Plt Count MPV Immature Gran % (Auto) Neut % (Auto) Lymph % (Auto) [place] % (Auto) Eos % (Auto) Baso % (Auto) Lymph # (Auto) [place] # (Auto) Eos # (Auto) Baso # (Auto) Abs Immat Gran (auto) Absolute Neuts (auto) Absolute Nucleated RBC Nucleated RBC % (auto) Smear Tech's Comments VBG pH 7.35 VBG pCO2 37 VBG pO2 48 VBG HCO3 20 VBG O2 Saturation 80.4 VBG Base Excess -5.1 Sodium Potassium Chloride Carbon Dioxide Anion Gap BUN Creatinine Estim Creat Clear Calc Estimated GFR POC Glucose 285 H Random Glucose Lactic Acid 2.2 H* Lactic Acid Fup @ 2Hr Calcium Phosphorus Magnesium Total Bilirubin Direct Bilirubin AST ALT Alkaline Phosphatase Total Protein Albumin Lipase Urine Color Urine Appearance Urine pH Ur Specific [place] Urine Protein Urine Glucose (UA) Urine Ketones Urine Blood Urine Nitrite Ur Leukocyte Esterase Urine RBC Urine WBC Ur Squamous Epith Cells Urine Bacteria Urine Mucus Acetone, Qual COVID-19 ([facility]) COVID-19 [employer] 06/02/20 06/02/20 06/02/20 01:21 02:28 03:09 WBC RBC Hgb Hct MCV MCH MCHC RDW Plt Count MPV Immature Gran % (Auto) Neut % (Auto) Lymph % (Auto) [place] % (Auto) Eos % (Auto) Baso % (Auto) Lymph # (Auto) [place] # (Auto) Eos # (Auto) Baso # (Auto) Abs Immat Gran (auto) Absolute Neuts (auto) Absolute Nucleated RBC Nucleated RBC % (auto) Smear Tech's Comments VBG pH VBG pCO2 VBG pO2 VBG HCO3 VBG O2 Saturation VBG Base Excess Sodium 137 Potassium 5.2 H Chloride 104 Carbon Dioxide 17 L Anion Gap 21 H BUN 14 Creatinine 0.91 Estim Creat Clear Calc 81.9 Estimated GFR > 60 POC Glucose 271 H Random Glucose 322 H Lactic Acid Lactic Acid Fup @ 2Hr 1.5 Calcium 8.5 Phosphorus 1.8 L Magnesium 1.7 Total Bilirubin Direct Bilirubin AST ALT Alkaline Phosphatase Total Protein Albumin Lipase Urine Color Urine Appearance Urine pH Ur Specific [place] Urine Protein Urine Glucose (UA) Urine Ketones Urine Blood Urine Nitrite Ur Leukocyte Esterase Urine RBC Urine WBC Ur Squamous Epith Cells Urine Bacteria Urine Mucus Acetone, Qual COVID-19 ([facility]) COVID-19 Clin Com 06/02/20 06/02/20 06/02/20 05:36 05:36 06:04 WBC 14.2 H RBC 3.49 L Hgb 9.7 L Hct 30.3 L MCV 86.8 MCH 27.8 MCHC 32.0 RDW 14.5 Plt Count 494 H MPV 8.4 L Immature Gran % (Auto) 0.3 Neut % (Auto) 79.7 H Lymph % (Auto) 15.2 L [place] % (Auto) 4.6 Eos % (Auto) 0.0 Baso % (Auto) 0.2 Lymph # (Auto) 2.2 [place] # (Auto) 0.7 Eos # (Auto) 0.0 Baso # (Auto) 0.0 Abs Immat Gran (auto) 0.04 H Absolute Neuts (auto) 11.3 H Absolute Nucleated RBC 0.000 Nucleated RBC % (auto) 0.0 Smear Tech's Comments VBG pH VBG pCO2 VBG pO2 VBG HCO3 VBG O2 Saturation VBG Base Excess Sodium 140 Potassium 4.4 Chloride 108 Carbon Dioxide 24 Anion Gap 12 BUN 17 H Creatinine 0.81 Estim Creat Clear Calc 92.0 Estimated GFR > 60 POC Glucose 120 H Random Glucose 138 H D Lactic Acid Lactic Acid Fup @ 2Hr Calcium 8.0 L Phosphorus 2.4 L Magnesium 1.8 Total Bilirubin Direct Bilirubin AST ALT Alkaline Phosphatase Total Protein Albumin Lipase Urine Color Urine Appearance Urine pH Ur Specific [place] Urine Protein Urine Glucose (UA) Urine Ketones Urine Blood Urine Nitrite Ur Leukocyte Esterase Urine RBC Urine WBC Ur Squamous Epith Cells Urine Bacteria Urine Mucus Acetone, Qual COVID-19 ([facility]) COVID-19 Clin Com Progress Note: A&P Assessment and plan (1) Pyuria: Status: Acute (2) DKA (diabetic ketoacidoses): Status: Acute (3) Abdominal pain: Status: Acute (4) Sepsis due to urinary tract infection: Status: Acute (5) Nausea & vomiting: Status: Acute (6) Diabetic gastroparesis: Status: Acute Assessment and Plan: stopping IV insulin and changing fluid from saline to Ringer's lactate and will start her on subcutaneous Shameka prandial coverage as well as long-acting Lantus and will use p.o. Augmentin for her antibiotic for urinary tract infection pending culture results Time Spent With Patient Time: Total time spent is greater than 50% in coordination of care (as documented) at patient's floor/unit and/or counseling patient: Total time spent with greater than 50% in coordination of care (as documented) at patient's floor/unit and/or counseling patient:: 30
[2020-06-02 08:46] LABS: Glucose, Whole Blood 147 mg/dL (60-115)
[2020-06-02] MEDS: Metoclopramide HCl Oral Soln 10 MG/10 ML SOLUTION 5 MG PO ×4 (08:46→21:15)
[2020-06-02] MEDS: Insulin Glargine,Hum.rec.anlog 100 UNIT/ML 10 ML VIAL 15 UNIT SUBCUT ×2 (08:46→15:49)
[2020-06-02 12:00] LABS: Glucose, Whole Blood 250 mg/dL (60-115)
[2020-06-02] MEDS: Insulin Lispro 100 UNIT/ML 3 ML VIAL SUBCUT ×2 (12:58→17:44)
--- NOTE | 2020-06-02 14:42 | PC.NURSE ---
1220- Pt transferred from ICU to S3 via wheelchair. Vitals obtained, pulse 125, POC 250. Pt c/o 10/10 abd pain, nausea, shaking. Dr. Garibay made aware. Ordered Dilaudid Q4 PRN, SSI. Diluadid, 4 units SSI, and scheduled reglan given at 1258. Will continue to monitor. 1400- Pt resting comfortably in bed.
[2020-06-02 15:22] LABS: Glucose, Whole Blood 192 mg/dL (60-115)
[2020-06-02 16:43] LABS: Glucose, Whole Blood 172 mg/dL (60-115)
[2020-06-02 20:47] LABS: Glucose, Whole Blood 99 mg/dL (60-115)
[2020-06-02] MEDS: lamoTRIgine 100 MG TABLET 200 MG PO (20:51)
[2020-06-02] MEDS: Zolpidem Tartrate 5 MG TABLET 10 MG PO (20:51)
[2020-06-02] MEDS: LORazepam 2 MG/ML VIAL 1 MG IVPUSH (23:03)
[2020-06-03] MEDS: HYDROmorphone HCl 0.5 MG/0.5 ML SYRINGE IVPUSH ×4 (02:11→18:24)
[2020-06-03] MEDS: Lactated Ringers 1,000 ML 100 ML IVCONT ×3 (03:02→21:51)
[2020-06-03 03:32] VITALS: BP 103/49; PULSE 99; RESP 19; TEMP 36.3; O2SAT 99
[2020-06-03 07:35] VITALS: BP 174/73; PULSE 93; RESP 19; TEMP 36.1; O2SAT 97
[2020-06-03 08:00] VITALS: BMI 26.1
[2020-06-03 08:14] LABS: Glucose, Whole Blood 61 mg/dL (60-115)
[2020-06-03 08:14] LABS: Glucose, Whole Blood 158 mg/dL (60-115)
[2020-06-03] MEDS: Amoxicillin/Potassium Clav 500 MG TABLET PO (09:20)
[2020-06-03] MEDS: Metoclopramide HCl Oral Soln 10 MG/10 ML SOLUTION 5 MG PO ×4 (09:20→21:46)
[2020-06-03] MEDS: lamoTRIgine 100 MG TABLET 200 MG PO ×2 (09:21→21:46)
[2020-06-03] MEDS: Insulin Lispro 100 UNIT/ML 3 ML VIAL SUBCUT ×2 (09:21→11:42)
[2020-06-03 09:43] LABS: MANUAL DIFF FLAG NO
[2020-06-03 09:45] LABS: Basophils Percent Auto 0.3 % (0-2); Eosinophils Absolute Auto 0.1 X10*3/uL (0.0-0.4); Eosinophils Percent Auto 0.4 % (0-4); Hematocrit 29.9 % (37-47); Hemoglobin 9.5 g/dl (12.0-16.0); Imm Gran Abs Auto 0.04 X10*3/uL (0.00-0.03); Imm Gran Pct Auto 0.4 % (0.0-0.4); Lymphocytes Absolute Auto 2.4 X10*3/uL (1.2-4.9); Lymphocytes Percent Auto 21.6 % (20-40); Mean Corpuscular HGB Conc 31.8 g/dl (31.0-35.0); Mean Corpuscular Hemoglobin 27.3 pg (27.0-33.0); Mean Corpuscular Volume 85.9 fL (80-98); Mean Platelet Volume 8.5 fL (9.4-12.3); Monocytes Absolute Auto 0.6 X10*3/uL (0.1-1.2); Monocytes Percent Auto 5.5 % (2-11); Neutrophils Absolute Auto 8.1 X10*3/uL (2.0-8.3); Neutrophils Percent Auto 71.8 % (45-73); Platelet Count 495 X10*3/uL (160-400); Red Blood Count 3.48 X10*6/uL (4.20-5.50); Red Cell Distribution Width 14.5 % (11.0-16.0); White Blood Count 11.3 X10*3/uL (4.8-10.8)
[2020-06-03] MEDS: Insulin Glargine,Hum.rec.anlog 100 UNIT/ML 10 ML VIAL 15 UNIT SUBCUT ×2 (10:04→13:50)
[2020-06-03] MEDS: LORazepam 2 MG/ML VIAL 1 MG IVPUSH (10:05)
[2020-06-03 10:08] LABS: Anion Gap 14 (12-20); Blood Urea Nitrogen 7 mg/dL (9-16); Calcium 8.3 mg/dL (8.4-10.2); Carbon Dioxide 25 mmol/L (22-29); Chloride 101 mmol/L (96-108); Creatinine Clr Calc Pharmacy 93.7; Estimated Glomerular Filt Rate > 60; Glucose Random 200 mg/dL (60-115); Potassium 4.4 mmol/l (3.3-5.1); Sodium 136 mmol/L (135-145)
[2020-06-03 11:16] LABS: Glucose, Whole Blood 159 mg/dL (60-115)
[2020-06-03 11:32] VITALS: BP 144/74; PULSE 109; RESP 18; TEMP 36.6; O2SAT 98
--- NOTE | 2020-06-03 11:34 | MHC.CM.PN ---
CM met with Patient. Patient lives in a trailer with her and she is functionally independent. Patient's goal for dc is to return home and CM has initiated and will follow for dc planning. IMM addressed with Patient and the original has been given to her and a copy has been placed on the chart. Patient's PCP is Dr. Madyson Avila.
[2020-06-03] MEDS: diphenhydrAMINE HCL 25 MG TABLET PO (13:50)
[2020-06-03 15:43] VITALS: BP 148/76; PULSE 104; RESP 18; TEMP 36.4; O2SAT 98
[2020-06-03 16:33] LABS: Glucose, Whole Blood 59 mg/dL (60-115)
[2020-06-03 16:54] LABS: Glucose, Whole Blood 80 mg/dL (60-115)
--- NOTE | 2020-06-03 16:54 | HO.PM.IMPN ---
Subjective Subjective Date of Service: 06/03/20 Interval History: patient seen and examined at bedside patient reported some nausea Review of Systems Constitutional: No Weight loss, No Fever, No Chills, No Night Sweats, + fatigue Cardiovascular: No Chest Pain, No SOB, No Dyspnea on Exertion, No Orthopnea, No Edema, No Palpitations Respiratory: No Cough, No Sputum, No Wheezing, No Dyspnea Gastrointestinal: + abdominal pain, + vomiting Genitourinary: no irregular bleeding, No Dysuria, No Urinary Frequency, No Hematuria, No Urinary Incontinence, No Urgency, No Flank Pain, No Urinary Flow Changes, No Hesitancy Musculoskeletal: No joint pain, No Myalgias, No Joint Swelling Skin: No Skin Lesions, No rash Constitutional Constitutional: Reports weakness Cardiovascular Cardiovascular: Reports dyspnea Respiratory Respiratory: Reports dyspnea Gastrointestinal Gastrointestinal: Reports vomiting Neurologic Neurologic: Reports weakness Physical Exam Vital Signs: Vital Signs: Last Vital Signs Temp 97.5 F 06/03/20 15:43 Pulse 104 H 06/03/20 15:43 Resp 18 06/03/20 15:43 BP 148/76 H 06/03/20 15:43 Pulse Ox 98 06/03/20 15:43 Body Mass Index 26.1 Appearance: Alert. Oriented X3. Anxious Head: Normal external exam. Normocephalic. Atraumatic. No Hernández signs noted. No raccoon eyes noted Eyes: PERRLA. EOMI. Conjunctiva and sclera normal. Eyelids normal. Dry mucous membrane ENT: EAC normal. TM's Normal. Pharynx normal. Uvula midline. Dry mucous membranes. No trismus noted. No drooling noted. No muffled voice noted. Neck: Normal inspection. Neck supple. FROM. No adenopathy. Thyroid Normal. No meningeal signs. No neck mass noted. CVS: Normal heart rate and rhythm. Heart sound normal. No murmurs noted. Pulses normal throughout. Respiratory: No respiratory distress. Painless inspiration. Breath sounds normal. No wheezes/rales/rhonchi noted. Chest nontender. No accessory muscle usage noted or decreased air movement noted. Abdomen: Diffuse tenderness patient refused exam due to severe pain. Bowel sounds normal in all 4 quadrants. No distention noted. No organomegaly noted. No visible injury noted. Back: No CVA tenderness. Full range of motion noted. Skin: Skin warm and dry. Normal skin color. Normal skin turgor. No rashes/lesions/lacerations noted. Extremities: No lower extremity edema. Extremities exhibit normal range of motion. Extremities nontender. Neuro: Oriented X 3. No motor deficit. No sensory deficit. Reflexes normal. Const: Other: Last Vital Signs Temp 98.9 F 06/02/20 02:00 Pulse 105 H 06/02/20 07:00 Resp 16 06/02/20 07:00 BP 124/70 06/02/20 07:00 Pulse Ox 98 06/02/20 07:00 Body Mass Index 25.2 General: comfortable Nutritional Appearance: average body habitus Orientation/consciousness: patient oriented x3 Limitations: no limitations HENMT: Head: Yes normal to inspection Face and sinus: Yes normal facial exam Mouth: mucous membranes dry Eyes: General: appearance normal, both eyes and all related structures Pupils: Equal, round and reactive pupils present EOM: EOMs intact bilaterally Neck: Neck: Yes normal visual inspection and Yes supple Resp: Effort & Inspection: normal respiratory effort and able to speak in complete sentences Auscultation: clear to auscultation bilaterally, no rales, no rhonchi and no wheezes Cardio: Other: Last Vital Signs Temp 98.9 F 06/02/20 02:00 Pulse 105 H 06/02/20 07:00 Resp 16 06/02/20 07:00 BP 124/70 06/02/20 07:00 Pulse Ox 98 06/02/20 07:00 Body Mass Index 25.2 Rate: tachycardic Rhythm: regular rhythm Heart sounds: normal S1 and S2 GI: Other: CGM on RLQ Inspection: Yes obesity Palpation (GI): Soft to palpation and Tenderness to palpation present (GI) (diffuse) Auscultation: Hypoactive bowel sounds present Skin: General skin exam: no rashes or lesions noted Neuro: General: patient oriented x3 Cranial nerves: Yes Equal, round and reactive pupils present Extrem: General: Yes normal to inspection and Yes no pedal edema Psych: Appearance: grossly normal Objective Data Current Medications Generic Name Dose Route Start Last Admin Trade Name Freq PRN Reason Stop Dose Admin Albuterol/Ipratropium 3 ml 06/02/20 07:59 Albuterol/Iprat 2.5/0.5mg 3 Ml Ampul.Neb INHALE RQ4H PRN Dyspnea Cefuroxime Axetil 500 mg 06/03/20 17:00 Cefuroxime Axetil 500 Mg Tablet PO Q12H RAISA Dextrose 25 gm 06/01/20 22:22 Dextrose 50 % 25 Gm/50 Ml Vial IVPUSH Q30M PRN hypoglycemia Diphenhydramine HCl 25 mg 06/03/20 13:24 06/03/20 13:50 Diphenhydramine Hcl 25 Mg Tablet PO 25 mg Q6H PRN Administration Itching Hydromorphone HCl 0.5 mg 06/02/20 12:34 06/03/20 11:39 Hydromorphone Hcl 0.5 Mg/0.5 Ml Syringe IVPUSH 0.5 mg Q4H PRN Administration Pain, Severe (Pain Scale 7-10) Lactated Ringer's 1,000 mls @ 100 mls/hr 06/02/20 07:45 06/03/20 13:15 Lr IVCONT 100 mls/hr .Q10H RAISA Administration Insulin Glargine 15 unit 06/02/20 08:30 06/03/20 13:50 Insulin Glargine,Hum.Rec.Anlog 100 Unit/Ml 10 Ml Vial SUBCUT 15 unit BID@0830,1430 [facility] Administration Insulin Human Lispro 0 unit 06/02/20 16:30 06/03/20 11:42 Insulin Lispro 100 Unit/Ml 3 Ml Vial SUBCUT 2 unit QIDACHS [facility] Administration Protocol Lamotrigine 200 mg 06/02/20 11:59 06/03/20 09:21 Lamotrigine 100 Mg Tablet PO 200 mg BID RAISA Administration Lorazepam 1 mg 06/02/20 01:06 06/03/20 10:05 Lorazepam 2 Mg/Ml Vial IVPUSH 1 mg Q6H PRN Administration Anxiety Metoclopramide HCl 5 mg 06/02/20 11:30 06/03/20 11:40 Metoclopramide Hcl Oral Soln 10 Mg/10 Ml Solution PO 5 mg QIDACHS [facility] Administration Pharmacy Consult 1 each 06/01/20 19:10 Consult Rx Perform Med Rec MISCELLANE ONCE PRN Consult order Pharmacy Consult 1 each 06/01/20 19:21 Consult Rx Perform Med Rec MISCELLANE ONCE PRN Consult order Risperidone 0.5 mg 06/02/20 11:59 06/03/20 09:27 Risperidone 0.5 Mg Tablet PO Not Given BID RAISA Sodium Chloride 3 ml 06/02/20 00:00 06/03/20 16:29 0.9 % Sodium Chloride Flush 3 Ml Syringe IVFLUSH Not Given QSHIFT RAISA Zolpidem Tartrate 10 mg 06/02/20 21:00 06/02/20 20:51 Zolpidem Tartrate 5 Mg Tablet PO 10 mg BEDTIME RAISA Administration Labs CBC & Chem 7: 06/03/20 08:49 06/03/20 08:49 Microbiology Microbiology Results: Microbiology 06/01/20 21:16 Urine clean catch - Clean Catch Midstream Urine Culture - Final Escherichia coli 06/01/20 23:08 Blood - Venous Blood Culture - Preliminary No growth after 24 hours. 06/01/20 23:08 Blood - Venous Blood Culture - Preliminary No growth after 24 hours. Assessment and Plan (1) Pyuria: Status: Acute (2) DKA (diabetic ketoacidoses): Status: Acute (3) Abdominal pain: Status: Acute (4) Sepsis due to urinary tract infection: Status: Acute (5) Nausea & vomiting: Status: Acute (6) Diabetic gastroparesis: Status: Acute Assessment and Plan: DKA resolved uncontrolled diabetes continue sliding scale and Lantus monitor blood glucose UTI continue Ceftin Augmentin stopped for rash follow-up culture intractable nausea and vomiting continue antiemetic history of depression and anxiety continue home medication DVT prophylaxis heparin subcu
[2020-06-03] MEDS: Heparin Sodium,Porcine 5,000 UNIT/ML VIAL 5000 UNIT SUBCUT (18:11)
[2020-06-03 19:57] VITALS: BP 129/62; PULSE 73; RESP 18; TEMP 36.6; O2SAT 99
[2020-06-03 20:55] LABS: Glucose, Whole Blood 202 mg/dL (60-115)
[2020-06-03] MEDS: Zolpidem Tartrate 5 MG TABLET 10 MG PO (21:47)
[2020-06-03 23:13] VITALS: BP 156/72; PULSE 76; RESP 18; TEMP 36.7; O2SAT 96
[2020-06-04] MEDS: HYDROmorphone HCl 0.5 MG/0.5 ML SYRINGE IVPUSH ×3 (00:50→13:43)
[2020-06-04] MEDS: diphenhydrAMINE HCL 25 MG TABLET PO ×2 (00:50→07:40)
[2020-06-04 04:00] VITALS: BP 112/63; PULSE 87; RESP 18; TEMP 36.4; O2SAT 98
[2020-06-04] MEDS: Heparin Sodium,Porcine 5,000 UNIT/ML VIAL 5000 UNIT SUBCUT ×2 (06:17→17:07)
[2020-06-04 07:11] LABS: Glucose, Whole Blood 61 mg/dL (60-115)
[2020-06-04 07:28] VITALS: BP 146/80; PULSE 109; RESP 19; TEMP 36.4; O2SAT 98
[2020-06-04] MEDS: Lactated Ringers 1,000 ML 100 ML IVCONT ×2 (07:29→17:09)
[2020-06-04] MEDS: Metoclopramide HCl Oral Soln 10 MG/10 ML SOLUTION 5 MG PO ×5 (07:40→20:47)
[2020-06-04] MEDS: lamoTRIgine 100 MG TABLET 200 MG PO ×2 (07:40→20:46)
[2020-06-04 08:00] VITALS: BMI 26.1
[2020-06-04] MEDS: Insulin Glargine,Hum.rec.anlog 100 UNIT/ML 10 ML VIAL 10 UNIT SUBCUT ×2 (08:28→20:48)
--- NOTE | 2020-06-04 10:14 | P.DS_ITS ---
DS: Providers Provider Date of admission: 06/01/20 22:23 Date of discharge: 06/06/20 Primary care physician: Yulisa Avila MD DS: Diagnosis Discharge Diagnosis (1) Pyuria: Status: Acute (2) DKA (diabetic ketoacidoses): Status: Acute (3) Abdominal pain: Status: Acute (4) Sepsis due to urinary tract infection: Status: Acute (5) Nausea & vomiting: Status: Acute (6) Diabetic gastroparesis: Status: Acute DS: Medications Discharge Medications Home Medications: Home Medications Medication Instructions Recorded Confirmed Toujeo Max U-300 SoloStar 35 unit SUBCUT DAILY 05/11/20 06/01/20 lamotrigine 200 mg PO BID 05/11/20 06/01/20 lorazepam 1 mg PO BID PRN 05/11/20 06/01/20 metoclopramide HCl 5 mg PO BID 05/11/20 06/01/20 midodrine 5 mg PO DAILY 05/11/20 06/01/20 omeprazole 20 mg PO BID 05/11/20 06/01/20 ziprasidone HCl 40 mg PO BEDTIME 05/11/20 06/01/20 zolpidem 10 mg PO BEDTIME 05/11/20 06/01/20 insulin aspart U-100 [Novolog 0 unit SUBCUT DIRECTED 06/01/20 06/01/20 Flexpen U-100 Insulin] risperidone 0.5 mg PO BID 06/01/20 06/01/20 Previous Rx's Medication Instructions Recorded albuterol sulfate 90 mcg/actuation 1 puff PO Q4H PRN 30 Days #8.5 g 05/25/20 aerosol inhaler metoprolol tartrate 25 mg tablet 25 mg PO BID #180 tab 06/03/20 cefuroxime axetil 500 mg PO Q12H #10 tab 06/04/20 diphenhydramine HCl [Allergy 25 mg PO Q6H PRN #10 tab 06/04/20 Relief(diphenhydramin)] hydrocortisone 1 applic TOPICAL BID PRN #14.2 g 06/04/20 DS: Summary Hospital Course Hospital Course: 44-year-old female admitted with DKA, patient was admitted to ICU started on insulin drip, DKA was resolved, patient was also found to have UTI patient received Rocephin switched to Augmentin, patient developed rash, Augmentin was stopped and switched to Ceftin, urine culture grew E coli, blood culture were negative, patient was given Benadryl and hydrocortisone cream for rash, patient's blood glucose remained stable, patient was stable discharged home on p.o. Ceftin Time Spent with Patient Time attestation: Total time spent providing and/or coordinating discharge services: Physical Exam Vital Signs: Vital Signs: Last Vital Signs Temp 97.6 F 06/04/20 07:28 Pulse 109 H 06/04/20 07:28 Resp 19 06/04/20 07:28 BP 146/80 H 06/04/20 07:28 Pulse Ox 98 06/04/20 07:28 Body Mass Index 26.1 Const: Other: Last Vital Signs Temp 97.6 F 06/04/20 07:28 Pulse 109 H 06/04/20 07:28 Resp 19 06/04/20 07:28 BP 146/80 H 06/04/20 07:28 Pulse Ox 98 06/04/20 07:28 Body Mass Index 26.1 General: comfortable Nutritional Appearance: average body habitus Orientation/consciousness: patient oriented x3 Limitations: no limitations HENMT: Head: Yes normal to inspection Face and sinus: Yes normal facial exam Mouth: mucous membranes dry Eyes: General: appearance normal, both eyes and all related structures Pupils: Equal, round and reactive pupils present EOM: EOMs intact bilaterally Neck: Neck: Yes normal visual inspection and Yes supple Resp: Effort & Inspection: normal respiratory effort and able to speak in complete sentences Auscultation: clear to auscultation bilaterally, no rales, no rhonchi and no wheezes Cardio: Other: Last Vital Signs Temp 97.6 F 06/04/20 07:28 Pulse 109 H 06/04/20 07:28 Resp 19 06/04/20 07:28 BP 146/80 H 06/04/20 07:28 Pulse Ox 98 06/04/20 07:28 Body Mass Index 26.1 Rate: tachycardic Rhythm: regular rhythm Heart sounds: normal S1 and S2 GI: Other: CGM on RLQ Inspection: Yes obesity Palpation (GI): Soft to palpation and Tenderness to palpation present (GI) (diffuse) Auscultation: Hypoactive bowel sounds present Skin: General skin exam: no rashes or lesions noted Neuro: General: patient oriented x3 Cranial nerves: Yes Equal, round and reactive pupils present Extrem: General: Yes normal to inspection and Yes no pedal edema Psych: Appearance: grossly normal DS: Data Data Completed and Pending Labs on day of discharge: 06/01/20 XR chest 1V Stat 06/01/20 16:43 HYDROmorphone HCl [Dilaudid] 0.5 mg IVPUSH ONCE ONE LORazepam [Ativan] 1 mg IVPUSH ONCE ONE ondansetron HCL [Zofran] 4 mg IVPUSH ONCE ONE 06/01/20 16:45 0.9 % Sodium Chloride [Ns] 500 ml IVCONT 999 mls/hr 06/01/20 17:38 Acetone, serum QL Stat Basic Metabolic Panel Stat Complete Blood Count Auto Diff Stat Lipase Stat Liver Panel Stat SLIDE REVIEW Stat 06/01/20 19:10 HYDROmorphone HCl [Dilaudid] 0.5 mg IVPUSH ONCE ONE Metoclopramide HCl [Reglan] 10 mg IVPUSH ONCE ONE 06/01/20 19:15 0.9 % Sodium Chloride [Ns] 500 ml IV 1,000 mls/hr 06/01/20 19:21 Insulin Regular, Human [Humulin R] 8 unit IVPUSH ONCE ONE 06/01/20 19:30 0.9 % Sodium Chloride [Ns] 500 ml IV 1,000 mls/hr 06/01/20 19:37 COVID-19 ID NOW ([place]) Stat 06/01/20 20:21 Glucose, Whole Blood Routine 06/01/20 20:28 LORazepam [Ativan] 1 mg IVPUSH ONCE ONE 06/01/20 21:02 Glucose, Whole Blood Routine 06/01/20 21:04 Basic Metabolic Panel Stat 06/01/20 21:16 Urine Culture Routine 06/01/20 22:14 Vital Signs Q30M 0.9 % Sodium Chloride [Ns] 2,313.33 ml IVCONT 2,313.33 mls/hr cefTRIAXone sodium [Rocephin] 1 gm 0.9 % Sodium Chloride [Ns] 100 ml IV ONCE ABG (RT) ONCE 06/01/20 22:22 Glucose, blood poc QIDACHS 06/01/20 22:23 Cont. Telemetry w/Vital Sign limit ICU Q4HR 06/01/20 22:30 Insulin Regular/NS [Myxredlin] 100 unit in 100 ml IVCONT 6 mls/hr 06/01/20 22:37 cefTRIAXone sodium [Rocephin] 1 gm .ROUTE .STK-MED ONE 06/01/20 22:48 Glucose, Whole Blood Routine 06/01/20 23:08 Lactic Acid Stat Venous Blood Gas Stat 06/01/20 23:15 Insulin Regular/NS [Myxredlin] 100 unit in 100 ml IVCONT 6 units/hr 06/01/20 23:24 Metoclopramide HCl [Reglan] 10 mg IVPUSH ONCE ONE 06/02/20 00:00 CT abdomen pelvis wo con Stat 06/02/20 01:06 HYDROmorphone HCl [Dilaudid] 0.5 mg IVPUSH Q4H PRN 06/02/20 01:20 Glucose, Whole Blood Routine 06/02/20 01:21 Basic Metabolic Panel Stat Magnesium Stat Phosphorus Routine 06/02/20 02:15 0.9 % Sodium Chloride [Ns] 1,000 ml IVCONT 125 mls/hr 06/02/20 02:28 ~Lactic Acid-LAB USE ONLY Stat 06/02/20 03:09 Glucose, Whole Blood Routine 06/02/20 05:00 Metoclopramide HCl [Reglan] 10 mg IVPUSH Q6H PRN 06/02/20 05:36 Basic Metabolic Panel Routine Complete Blood Count Auto Diff Routine Magnesium Routine Phosphorus Routine 06/02/20 06:04 Glucose, Whole Blood Routine 06/02/20 07:47 Transfer Order Routine 06/02/20 08:00 Glucose, blood poc QIDACHS Amoxicillin/Potassium Clav [Augmentin] 500 mg PO Q8H 06/02/20 08:30 Insulin Glargine,Hum.rec.anlog [Lantus] 15 unit SUBCUT BID@9930,4410 06/02/20 08:42 Glucose, Whole Blood Routine 06/02/20 11:30 Metoclopramide HCl [Reglan] 5 mg PO QIDACHS 06/02/20 11:55 Glucose, Whole Blood Routine 06/02/20 12:34 HYDROmorphone HCl [Dilaudid] 0.5 mg IVPUSH Q4H PRN 06/02/20 15:15 Glucose, Whole Blood Routine 06/02/20 16:37 Glucose, Whole Blood Routine 06/02/20 20:35 Glucose, Whole Blood Routine 06/03/20 07:38 Glucose, Whole Blood Routine 06/03/20 08:10 Glucose, Whole Blood Routine 06/03/20 08:49 Basic Metabolic Panel Routine Complete Blood Count Auto Diff Routine 06/03/20 11:12 Glucose, Whole Blood Routine 06/03/20 13:24 diphenhydrAMINE HCL [Benadryl] 25 mg PO Q6H PRN 06/03/20 16:30 Glucose, Whole Blood Routine 06/03/20 16:51 Glucose, Whole Blood Routine 06/03/20 20:50 Glucose, Whole Blood Routine 06/04/20 07:06 Glucose, Whole Blood Routine Laboratory Last Values WBC 11.3 X10*3/uL (4.8-10.8) H 06/03/20 08:49 RBC 3.48 X10*6/uL (4.20-5.50) L 06/03/20 08:49 Hgb 9.5 g/dl (12.0-16.0) L 06/03/20 08:49 Hct 29.9 % (37-47) L 06/03/20 08:49 MCV 85.9 fL (80-98) 06/03/20 08:49 MCH 27.3 pg (27.0-33.0) 06/03/20 08:49 MCHC 31.8 g/dl (31.0-35.0) 06/03/20 08:49 RDW 14.5 % (11.0-16.0) 06/03/20 08:49 Plt Count 495 X10*3/uL (160-400) H 06/03/20 08:49 MPV 8.5 fL (9.4-12.3) L 06/03/20 08:49 Immature Gran % (Auto) 0.4 % (0.0-0.4) 06/03/20 08:49 Neut % (Auto) 71.8 % (45-73) 06/03/20 08:49 Lymph % (Auto) 21.6 % (20-40) 06/03/20 08:49 [place] % (Auto) 5.5 % (2-11) 06/03/20 08:49 Eos % (Auto) 0.4 % (0-4) 06/03/20 08:49 Baso % (Auto) 0.3 % (0-2) 06/03/20 08:49 Lymph # (Auto) 2.4 X10*3/uL (1.2-4.9) 06/03/20 08:49 [place] # (Auto) 0.6 X10*3/uL (0.1-1.2) 06/03/20 08:49 Eos # (Auto) 0.1 X10*3/uL (0.0-0.4) 06/03/20 08:49 Baso # (Auto) 0.0 X10*3/uL (0.0-0.2) 06/03/20 08:49 Abs Immat Gran (auto) 0.04 X10*3/uL (0.00-0.03) H 06/03/20 08:49 Absolute Neuts (auto) 8.1 X10*3/uL (2.0-8.3) 06/03/20 08:49 Absolute Nucleated RBC 0.000 X10*3/uL (0.0-0.012) 06/03/20 08:49 Nucleated RBC % (auto) 0.0 /100WBC (0.0-0.2) 06/03/20 08:49 Smear Tech's Comments VERIFIED 06/01/20 17:38 VBG pH 7.35 (7.32-7.43) 06/01/20 23:08 VBG pCO2 37 mmhg 06/01/20 23:08 VBG pO2 48 mmhg 06/01/20 23:08 VBG HCO3 20 mmol/L 06/01/20 23:08 VBG O2 Saturation 80.4 % 06/01/20 23:08 VBG Base Excess -5.1 mmol/L 06/01/20 23:08 Sodium 136 mmol/L (135-145) 06/03/20 08:49 Potassium 4.4 mmol/l (3.3-5.1) 06/03/20 08:49 Chloride 101 mmol/L (96-108) 06/03/20 08:49 Carbon Dioxide 25 mmol/L (22-29) 06/03/20 08:49 Anion Gap 14 (12-20) 06/03/20 08:49 BUN 7 mg/dL (9-16) L D 06/03/20 08:49 Creatinine 0.71 mg/dL (0.5-1.4) 06/03/20 08:49 Estim Creat Clear Calc 93.7 06/03/20 08:49 Estimated GFR > 60 06/03/20 08:49 POC Glucose 61 mg/dL (60-115) 06/04/20 07:06 Random Glucose 200 mg/dL (60-115) H D 06/03/20 08:49 Lactic Acid 2.2 mmol/L (0.5-2.0) H* 06/01/20 23:08 Lactic Acid Fup @ 2Hr 1.5 mmol/L (0.5-2.0) 06/02/20 02:28 Calcium 8.3 mg/dL (8.4-10.2) L 06/03/20 08:49 Phosphorus 2.4 mg/dL (2.7-4.5) L 06/02/20 05:36 Magnesium 1.8 mg/dL (1.6-2.6) 06/02/20 05:36 Total Bilirubin 0.5 mg/dL (0.0-1.0) 06/01/20 17:38 Direct Bilirubin 0.2 mg/dL (0.0-0.5) 06/01/20 17:38 AST 11 U/L (5-31) 06/01/20 17:38 ALT 7 U/L (0-31) 06/01/20 17:38 Alkaline Phosphatase 137 U/L (39-117) H 06/01/20 17:38 Total Protein 8.3 g/dL (6.5-8.0) H 06/01/20 17:38 Albumin 4.7 g/dL (3.5-5.0) 06/01/20 17:38 Lipase 8 U/L (8-78) 06/01/20 17:38 Urine Color YELLOW 06/01/20 21:04 Urine Appearance CLOUDY 06/01/20 21:04 Urine pH 6.0 (5.0-8.0) 06/01/20 21:04 Ur Specific [place] 1.020 (1.005-1.025) 06/01/20 21:04 Urine Protein TRACE MG/DL (NEG-TRACE) 06/01/20 21:04 Urine Glucose (UA) >=1000 MG/DL (NEG) H 06/01/20 21:04 Urine Ketones 40 MG/DL (NEG) 06/01/20 21:04 Urine Blood 1+ (NEG) H 06/01/20 21:04 Urine Nitrite NEG (NEG) 06/01/20 21:04 Ur Leukocyte Esterase 1+ (NEG) H 06/01/20 21:04 Urine RBC 10-14 /HPF (0) H 06/01/20 21:04 Urine WBC 15-29 /HPF (0-4) H 06/01/20 21:04 Ur Squamous Epith Cells 1+ /LPF 06/01/20 21:04 Urine Bacteria 3+ /LPF 06/01/20 21:04 Urine Mucus 1+ /LPF 06/01/20 21:04 Acetone, Qual Small (Negative) H 06/01/20 17:38 COVID-19 ([facility]) Negative (Negative) 06/01/20 19:37 COVID-19 Clin Com See Note 06/01/20 19:37 Preliminary micro results at discharge 06/01/20 23:08 Blood Culture - Preliminary Blood - Venous No growth after 48 hours. 06/01/20 23:08 Blood Culture - Preliminary Blood - Venous No growth after 48 hours. Discharge Plan Discharge Anticipated Discharge Date/Time: 06/05/20 10:13 Patient Disposition: Home, Self-Care Referrals: Yulisa Dyson MD [Primary Care Provider] - 1 Week (06/14/2020 @ 10:15am with Amanda Orozco, if you can't keep this appointment please call and reschedule.) Discharge Medications: New diphenhydramine HCl [Allergy Relief(diphenhydramin)] 25 mg Tablet 25 mg PO Q6H PRN (Reason: Itching) Qty: 10 RF: 0 cefuroxime axetil 500 mg Tablet 500 mg PO Q12H Qty: 10 RF: 0 hydrocortisone 1 % cream 1 applic topical BID PRN (Reason: itching) Qty: 14.2 RF: 0 Continued albuterol sulfate 90 mcg/actuation HFA aerosol inhaler 1 puff PO Q4H PRN (Reason: shortness of breath or wheezing) 30 Days Qty: 8.5 RF: 2 metoprolol tartrate 25 mg tablet 25 mg PO BID Qty: 180 RF: 1 risperidone 0.5 mg tablet 0.5 mg PO BID RF: 0 insulin aspart U-100 [Novolog Flexpen U-100 Insulin] 100 unit/mL (3 mL) insulin pen 0 unit subcut DIRECTED RF: 0 metoclopramide HCl 5 mg/5 mL Solution 5 mg PO BID RF: 0 Toujeo Max U-300 SoloStar 300 unit/mL (3 mL) Insulin Pen 35 unit SUBCUT DAILY RF: 0 midodrine 5 mg Tablet 5 mg PO DAILY RF: 0 omeprazole 20 mg Capsule,Delayed Release(Dr/Ec) 20 mg PO BID RF: 0 ziprasidone HCl 40 mg Capsule 40 mg PO BEDTIME RF: 0 lorazepam 1 mg Tablet 1 mg PO BID PRN (Reason: Anxiety) RF: 0 lamotrigine 200 mg Tablet 200 mg PO BID RF: 0 zolpidem 10 mg Tablet 10 mg PO BEDTIME RF: 0 Discharge Orders: Discharge Order (Routine); Ordered 06/05/20 Ordered By: Jonel Garibay Diet: advance to usual diet Activity on Discharge: As tolerated Discharge Date/Time: 06/05/20 11:36 Visit Report Forms: Patient Portal Discharge page Care Plan Goals: Treat nausea and vomiting Health Concerns: nausea vomiting DKA Plan of Treatment: continue insulin
--- NOTE | 2020-06-04 10:35 | MHC.CM.PN ---
PATIENT IS DISCHARGED HOME - SELF CARE. SPOUSE TO TRANSPORT. RN AWARE OF PLAN.
[2020-06-04 11:20] LABS: Glucose, Whole Blood 156 mg/dL (60-115)
[2020-06-04 12:00] VITALS: RESP 18
[2020-06-04] MEDS: LORazepam 2 MG/ML VIAL 1 MG IVPUSH ×2 (12:52→20:47)
[2020-06-04] MEDS: diphenhydrAMINE HCL 25 MG TABLET 50 MG PO ×3 (12:53→20:46)
--- NOTE | 2020-06-04 14:44 | HO.PM.IMPN ---
Subjective Subjective Date of Service: 06/04/20 Interval History: patient seen and examined at bedside patient reported some nausea and itchiness Review of Systems Constitutional: No Weight loss, No Fever, No Chills, No Night Sweats, + fatigue Cardiovascular: No Chest Pain, No SOB, No Dyspnea on Exertion, No Orthopnea, No Edema, No Palpitations Respiratory: No Cough, No Sputum, No Wheezing, No Dyspnea Gastrointestinal: + abdominal pain, + vomiting Genitourinary: no irregular bleeding, No Dysuria, No Urinary Frequency, No Hematuria, No Urinary Incontinence, No Urgency, No Flank Pain, No Urinary Flow Changes, No Hesitancy Musculoskeletal: No joint pain, No Myalgias, No Joint Swelling Skin: No Skin Lesions, No rash Constitutional Constitutional: Reports weakness Cardiovascular Cardiovascular: Reports dyspnea Respiratory Respiratory: Reports dyspnea Gastrointestinal Gastrointestinal: Reports vomiting Neurologic Neurologic: Reports weakness Physical Exam Vital Signs: Vital Signs: Last Vital Signs Temp 97.6 F 06/04/20 07:28 Pulse 109 H 06/04/20 07:28 Resp 19 06/04/20 07:28 BP 146/80 H 06/04/20 07:28 Pulse Ox 98 06/04/20 07:28 Body Mass Index 26.1 Appearance: Alert. Oriented X3. Anxious Head: Normal external exam. Normocephalic. Atraumatic. No Hernández signs noted. No raccoon eyes noted Eyes: PERRLA. EOMI. Conjunctiva and sclera normal. Eyelids normal. Dry mucous membrane ENT: EAC normal. TM's Normal. Pharynx normal. Uvula midline. Dry mucous membranes. No trismus noted. No drooling noted. No muffled voice noted. Neck: Normal inspection. Neck supple. FROM. No adenopathy. Thyroid Normal. No meningeal signs. No neck mass noted. CVS: Normal heart rate and rhythm. Heart sound normal. No murmurs noted. Pulses normal throughout. Respiratory: No respiratory distress. Painless inspiration. Breath sounds normal. No wheezes/rales/rhonchi noted. Chest nontender. No accessory muscle usage noted or decreased air movement noted. Abdomen: Diffuse tenderness patient refused exam due to severe pain. Bowel sounds normal in all 4 quadrants. No distention noted. No organomegaly noted. No visible injury noted. Back: No CVA tenderness. Full range of motion noted. Skin: Skin warm and dry. Normal skin color. Normal skin turgor. No rashes/lesions/lacerations noted. Extremities: No lower extremity edema. Extremities exhibit normal range of motion. Extremities nontender. Neuro: Oriented X 3. No motor deficit. No sensory deficit. Reflexes normal. Const: Orientation/consciousness: patient oriented x3 HENMT: Head: Yes normal to inspection Face and sinus: Yes normal facial exam Mouth: mucous membranes dry Eyes: General: appearance normal, both eyes and all related structures Pupils: Equal, round and reactive pupils present EOM: EOMs intact bilaterally Neck: Neck: Yes normal visual inspection and Yes supple Resp: Effort & Inspection: normal respiratory effort and able to speak in complete sentences Auscultation: clear to auscultation bilaterally, no rales, no rhonchi and no wheezes Cardio: Other: Last Vital Signs Temp 97.6 F 06/04/20 07:28 Pulse 109 H 06/04/20 07:28 Resp 19 06/04/20 07:28 BP 146/80 H 06/04/20 07:28 Pulse Ox 98 06/04/20 07:28 Body Mass Index 26.1 Rate: tachycardic Rhythm: regular rhythm Heart sounds: normal S1 and S2 GI: Other: CGM on RLQ Inspection: Yes obesity Palpation (GI): Soft to palpation and Tenderness to palpation present (GI) (diffuse) Auscultation: Hypoactive bowel sounds present Skin: General skin exam: no rashes or lesions noted Neuro: General: patient oriented x3 Cranial nerves: Yes Equal, round and reactive pupils present Extrem: General: Yes normal to inspection and Yes no pedal edema Psych: Appearance: grossly normal Objective Data Current Medications Generic Name Dose Route Start Last Admin Trade Name Freq PRN Reason Stop Dose Admin Albuterol/Ipratropium 3 ml 06/02/20 07:59 Albuterol/Iprat 2.5/0.5mg 3 Ml Ampul.Neb INHALE RQ4H PRN Dyspnea Cefuroxime Axetil 500 mg 06/03/20 17:00 06/04/20 05:03 Cefuroxime Axetil 500 Mg Tablet PO 500 mg Q12H RAISA Administration Dextrose 25 gm 06/01/20 22:22 Dextrose 50 % 25 Gm/50 Ml Vial IVPUSH Q30M PRN hypoglycemia Diphenhydramine HCl 50 mg 06/04/20 10:06 06/04/20 12:54 Diphenhydramine Hcl 25 Mg Tablet PO 50 mg Q6H PRN Administration Itching Heparin Sodium (Porcine) 5,000 unit 06/03/20 18:00 06/04/20 06:17 Heparin Sodium,Porcine 5,000 Unit/Ml Vial SUBCUT 5,000 unit Q12H RAISA Administration Hydrocortisone 1 appl 06/04/20 21:00 Hydrocortisone 1 % Cream 28.35 Gm Tube TOPICAL BID [facility] Protocol Lactated Ringer's 1,000 mls @ 100 mls/hr 06/02/20 07:45 06/04/20 07:29 Lr IVCONT 100 mls/hr .Q10H [facility] Administration Insulin Glargine 10 unit 06/04/20 21:00 Insulin Glargine,Hum.Rec.Anlog 100 Unit/Ml 10 Ml Vial SUBCUT BID@0830,2100 [facility] Insulin Human Lispro 0 unit 06/02/20 16:30 06/04/20 12:52 Insulin Lispro 100 Unit/Ml 3 Ml Vial SUBCUT Not Given QIDACHS [facility] Protocol Lamotrigine 200 mg 06/02/20 11:59 06/04/20 07:40 Lamotrigine 100 Mg Tablet PO 200 mg BID RAISA Administration Lorazepam 1 mg 06/02/20 01:06 06/04/20 12:52 Lorazepam 2 Mg/Ml Vial IVPUSH 1 mg Q6H PRN Administration Anxiety Metoclopramide HCl 5 mg 06/02/20 11:30 06/04/20 12:55 Metoclopramide Hcl Oral Soln 10 Mg/10 Ml Solution PO 5 mg QIDACHS [facility] Administration Pharmacy Consult 1 each 06/01/20 19:10 Consult Rx Perform Med Rec MISCELLANE ONCE PRN Consult order Pharmacy Consult 1 each 06/01/20 19:21 Consult Rx Perform Med Rec MISCELLANE ONCE PRN Consult order Risperidone 0.5 mg 06/02/20 11:59 06/04/20 07:45 Risperidone 0.5 Mg Tablet PO Not Given BID [facility] Sodium Chloride 3 ml 06/02/20 00:00 06/04/20 07:41 0.9 % Sodium Chloride Flush 3 Ml Syringe IVFLUSH Not Given QSHIFT [facility] Zolpidem Tartrate 10 mg 06/02/20 21:00 06/03/20 21:47 Zolpidem Tartrate 5 Mg Tablet PO 10 mg BEDTIME RAISA Administration Labs CBC & Chem 7: 06/03/20 08:49 06/03/20 08:49 Microbiology Microbiology Results: Microbiology 06/01/20 23:08 Blood - Venous Blood Culture - Preliminary No growth after 48 hours. 06/01/20 23:08 Blood - Venous Blood Culture - Preliminary No growth after 48 hours. 06/01/20 21:16 Urine clean catch - Clean Catch Midstream Urine Culture - Final Escherichia coli Assessment and Plan (1) Pyuria: Status: Acute (2) DKA (diabetic ketoacidoses): Status: Acute (3) Abdominal pain: Status: Acute (4) Sepsis due to urinary tract infection: Status: Acute (5) Nausea & vomiting: Status: Acute (6) Diabetic gastroparesis: Status: Acute Assessment and Plan: DKA resolved uncontrolled diabetes continue sliding scale and Lantus monitor blood glucose Lantus dose reduced given hypoglycemia monitor blood glucose closely UTI continue Ceftin Augmentin stopped for rash follow-up culture continue Benadryl and hydrocortisone for rash intractable nausea and vomiting improving continue antiemetic history of depression and anxiety continue home medication DVT prophylaxis heparin subcu
[2020-06-04 15:19] VITALS: BP 119/65; PULSE 102; RESP 18; TEMP 37.1; O2SAT 97
[2020-06-04] MEDS: Hydrocortisone 1 % Cream 28.35 GM TUBE 1 APPL TOPICAL (16:04)
[2020-06-04 16:28] LABS: Glucose, Whole Blood 174 mg/dL (60-115)
[2020-06-04] MEDS: Insulin Lispro 100 UNIT/ML 3 ML VIAL SUBCUT (17:08)
[2020-06-04 19:43] VITALS: BP 117/71; PULSE 98; RESP 18; TEMP 37.2; O2SAT 99
[2020-06-04 20:45] LABS: Glucose, Whole Blood 117 mg/dL (60-115)
[2020-06-04] MEDS: Zolpidem Tartrate 5 MG TABLET 10 MG PO (20:47)
[2020-06-04 23:28] VITALS: BP 116/69; PULSE 88; RESP 17; TEMP 36.6; O2SAT 96
[2020-06-05] MEDS: diphenhydrAMINE HCL 25 MG TABLET 50 MG PO ×2 (02:45→09:46)
[2020-06-05] MEDS: LORazepam 2 MG/ML VIAL 1 MG IVPUSH ×2 (02:46→09:47)
[2020-06-05] MEDS: Lactated Ringers 1,000 ML 100 ML IVCONT (02:47)
[2020-06-05 03:23] VITALS: BP 112/60; PULSE 90; RESP 16; TEMP 36.7; O2SAT 95
[2020-06-05] MEDS: Heparin Sodium,Porcine 5,000 UNIT/ML VIAL 5000 UNIT SUBCUT (05:31)
[2020-06-05 07:05] VITALS: BP 107/64; PULSE 97; RESP 18; TEMP 36.5; O2SAT 98
[2020-06-05 07:26] LABS: Glucose, Whole Blood 95 mg/dL (60-115)
[2020-06-05] MEDS: Metoclopramide HCl Oral Soln 10 MG/10 ML SOLUTION 5 MG PO (07:50)
[2020-06-05 08:00] VITALS: BMI 26.5
[2020-06-05] MEDS: Hydrocortisone 1 % Cream 28.35 GM TUBE 1 APPL TOPICAL (09:37)
[2020-06-05] MEDS: lamoTRIgine 100 MG TABLET 200 MG PO (09:37)
[2020-06-05] MEDS: Insulin Glargine,Hum.rec.anlog 100 UNIT/ML 10 ML VIAL 10 UNIT SUBCUT (09:38)
== END 2020-06-05 11:36 | disposition home or self-care (01) | DRG 871 ==
LOC: HO.ED 16:36 → HO.ICU 23:19 → HO.S3 06-02 11:30
PROVIDERS: Emergency Medicine; Internal Medicine; Physician Assistant; Admitting Provider Internal Medicine Cardiovascular Disease; Emergency Provider Emergency Medicine; PCP Internal Medicine; Visit Provider Internal Medicine
DX: A41.9 Sepsis, unspecified organism (principal); E10.10 Type 1 diabetes mellitus with ketoacidosis without coma; N39.0 Urinary tract infection, site not specified; F31.9 Bipolar disorder, unspecified; I25.2 Old myocardial infarction; E10.43 Type 1 diabetes mellitus with diabetic autonomic (poly)neuropathy; K31.84 Gastroparesis; B96.20 Unspecified Escherichia coli [E. coli] as the cause of diseases classified elsewhere; Z87.440 Personal history of urinary (tract) infections; Z20.828 Contact with and (suspected) exposure to other viral communicable diseases; Z88.5 Allergy status to narcotic agent; Z79.4 Long term (current) use of insulin; Z79.899 Other long term (current) drug therapy
CPT/HCPCS: 36415; 71045; 74176; 80048; 80076; 81001; 82009; 82803; 82947; 83605; 83690; 83735; 84100; 85025; 87040; 87086; 87088; 87186; 87635; 96365; 96375; 96376; 99285; J0696; J1170; J1642; J2060; J2405; J2765; Q0163

== ENCOUNTER 2021-09-13 11:50 | Inpatient (IN) | payer OTHER, SELFPAY ==
[2021-09-13] VITALS (9 sets, daily range): BP systolic 99–130; BP diastolic 50–87; PULSE 111–139; RESP 14–21; TEMP 36.6–37.3; O2SAT 94–100; BMI 28.4
--- NOTE | ~2021-09-13 | CT_ITS ---
EXAMINATION: CT ABDOMEN AND PELVIS WITHOUT CONTRAST CLINICAL INFORMATION: Diffuse abdominal pain COMPARISON: CT abdomen pelvis 06/02/2020 TECHNIQUE: Multidetector volumetric imaging was performed from the superior aspect of the liver through the pubic symphysis. Sagittal and coronal reformatted images were obtained on the technologist's workstation. This CT examination was performed using dose optimization techniques as appropriate, variously including the following: *Automated exposure control *Adjustment of mA and/or kV according to patient size (this includes techniques or standardized protocols for targeted exams where dose is matched to indication/reason for exam; i.e. extremities or head) *Use of iterative reconstruction technique DLP: 600 mGy-cm FINDINGS: LUNG BASES: The visualized lung bases are unremarkable. LIVER, GALLBLADDER, AND BILIARY TREE: The liver is normal in size and shape but demonstrates markedly decreased attenuation consistent with hepatic steatosis. No focal hepatic lesion or biliary ductal dilatation is present. The gallbladder is unremarkable with no evidence of radiopaque gallstones, gallbladder wall thickening, or obvious pericholecystic inflammatory changes. PANCREAS: Unremarkable. SPLEEN: Unremarkable. ADRENAL GLANDS: Unremarkable. KIDNEYS AND URETERS: The kidneys are normal in size, shape, and attenuation. Overlying the course of the right ureter, there is a tiny punctate calcification measuring less than 2 mm in size that could represent a small ureteral calculus. A calcification in this region was not seen at the time of the prior 05/11/2020 CT scan. No gross hydronephrosis, there are bilateral small punctate renal calculi consistent with stones (for example, 3:33 and 42 on the right and 3:37 on the left). No renal masses are seen. No perinephric stranding. BLADDER: Distended but otherwise unremarkable GASTROINTESTINAL TRACT: A small hiatal hernia is again seen The small and large bowel are unremarkable. The appendix is none identified. ABDOMINAL WALL: No significant hernia is appreciated. LYMPH NODES: No retroperitoneal lymphadenopathy. VASCULAR: Minimal calcific plaque present in some aortic branches in the common iliac arteries and their bifurcations. No aneurysm. PELVIC VISCERA: Status post hysterectomy. An abnormal adnexal mass or free fluid is not seen. OSSEOUS STRUCTURES: Unremarkable. CT/CT abdomen pelvis wo con IMPRESSION: Question of a tiny 2 mm distal right ureteral calculus. Especially if the patient has right flank pain, this may be the cause. There are a few other tiny nonobstructing intrarenal calculi as described above. Incidentally noted hepatic steatosis, small hiatal hernia, hysterectomy, and other findings described above Fleischner guidelines were followed.
--- NOTE | 2021-09-13 12:14 | ECG_ITS ---
Test Reason : nausea vomiting Blood Pressure : / mmHG Vent. Rate : 134 BPM Atrial Rate : 134 BPM P-R Int : 132 ms QRS Dur : 090 ms QT Int : 302 ms P-R-T Axes : 074 068 015 degrees QTc Int : 450 ms Sinus tachycardia Low voltage QRS Borderline ECG When compared with ECG of 11-MAY-2020 04:37, No significant change was found Referred By: Isaias Quezada Electronically Signed By:Cory Emanuel
--- NOTE | 2021-09-13 12:21 | ED.GENADULT ---
HPI - General Adult General Chief complaint: General Medical Stated complaint: HIGH BLOOD SUGAR,? DKA Time Seen by Provider: 09/13/21 12:07 Source: patient, EMS and old records reviewed Mode of arrival: EMS History of Present Illness HPI narrative: Patient with a history of insulin-dependent diabetes with an insulin pump. She has a history of hospitalizations for diabetic ketoacidosis, the last episode in May of 2020, approximately 16 months ago. She states she has been feeling tired over the last several days and starting yesterday developed abdominal pain, with nausea vomiting. She developed diarrhea starting today. Her blood sugar readings have been high on the monitor. She was treated by EMS with Zofran for nausea. She complains of diffuse severe abdominal pain which is similar to prior presentations of DKA. She does not know of any specific precipitants to this episode. Related Data Home Medications Medication Instructions Recorded Confirmed lamotrigine 200 mg tablet 200 mg PO BID 05/11/20 09/13/21 lorazepam 1 mg tablet 1 mg PO TID PRN 05/11/20 09/13/21 zolpidem 10 mg tablet 10 mg PO BEDTIME 05/11/20 09/13/21 insulin aspart U-100 100 unit/mL 0 unit SUBCUT DIRECTED 06/01/20 09/13/21 (3 mL) subcutaneous pen (Novolog Flexpen U-100 Insulin aspart) risperidone 2 mg tablet 1 tab PO BID 09/13/21 09/13/21 Previous Rx's Medication Instructions Recorded midodrine 5 mg tablet 5 mg PO DAILY #90 tab 06/18/21 omeprazole 20 mg capsule,delayed 20 mg PO BID #180 cap 07/26/21 release albuterol sulfate 90 mcg/actuation 1 puff PO Q4H PRN #8.5 g 08/22/21 aerosol inhaler metoprolol tartrate 25 mg tablet 25 mg PO BID #180 tab 09/06/21 Allergies Allergy/AdvReac Type Severity Reaction Status Date / Time morphine [MORPHINE] Allergy Intermediate RASH, Verified 04/10/21 09:37 hives, hives mushroom Allergy Intermediate HIVES/RASH Verified 04/10/21 09:37 mushroom Allergy Unknown throat Uncoded 04/10/21 09:37 closes up/difficult breathing mushrooms Allergy Unknown anaphylaxis Uncoded 04/10/21 09:37 Review of Systems Constitutional: Comments: No fevers. Positive general malaise Cardiovascular: Comments: No chest pain Respiratory: Comments: No significant dyspnea Gastrointestinal: Comments: Positive severe abdominal pain with nausea vomiting diarrhea Genitourinary: Comments: Polyuria Musculoskeletal: Comments: Generalized body aches Integumentary/Breasts: Comments: No rash Neurologic: Comments: No focal weakness Endocrine: Comments: Insulin-dependent diabetes with insulin pump [facility] Past Medical History Medical History Anxiety Bipolar 1 disorder Diabetes Diabetic gastroparesis Gastroparesis NSTEMI (non-ST elevated myocardial infarction) Pancreatitis Recurrent UTI Status post fall Surgical History H/O pyloroplasty H/O: hysterectomy History of appendectomy History of ERCP History of tonsillectomy Social History Social History Household Members: Spouse Housing: House Do you presently have visiting nurse or other home services: Yes Alcohol intake: never Patient Tobacco Use Status: Former Tobacco user Use of substances other than those prescribed or required for medical reasons: Yes Substance Use Type: Marijuana Substance Use Frequency: Daily Last Used Substance: Days (ago) Advance Directives: No Advance Directives Information Provided: No service: No Current occupational status: disabled Physical Exam ED Vital Signs: Vital Signs - 24 hr 09/13/21 12:10 09/13/21 12:17 09/13/21 14:00 Temperature 98 F 98 F 98 F Pulse Rate 130 H 128 H 139 H Respiratory Rate 21 H 18 21 H Blood Pressure 105/52 L 105/52 L 121/62 Pulse Oximetry 99 99 100 BMI result Body Mass Index 28.4 Const Other: Awake but ill-appearing. HENMT Other: Pale dry mucosa Resp Other: Mild tachypnea without obvious dyspnea. Clear and equal bilaterally Cardio Other: Tachycardia to 130 beats per minute. GI Other: Severe diffuse tenderness with guarding and rebound. No focal or point tenderness. Mild distention. Abdomen is not firm Skin Other: Pale without obvious rash Neuro Other: Nonfocal Course Course Course Narrative: Abdominal pain with nausea vomiting diarrhea with blood sugar readings of ?high?. History of diabetic ketoacidosis in likely with recurrence today. Potential causes would be urinary tract infection similar last episode or intra-abdominal infection. Will treat with IV fluids, IV insulin bolus with IV insulin drip. CT scan of abdomen. Await labs. [place] [address]. Lactic acid is over 7. Findings likely secondary to DKA but could potentially be sepsis mediated. 30 cc/kilos were ordered shortly after arrival. I will also order Zosyn, broad-spectrum antibiotic now. 16:22. Lab work shows hyperkalemia and continued acidosis with a blood sugar of 900. Still awaiting official CT scan report. In the meantime patient has been admitted to the intensive care unit Medical Decision Making Lab Data Result diagrams: 09/13/21 13:15 09/13/21 13:15 Labs: Lab Results 09/13/21 09/13/21 09/13/21 Range/Units 12:10 12:50 13:01 WBC (4.8-10.8) X10*3/uL RBC (4.20-5.50) X10*6/uL Hgb (12.0-16.0) g/dl Hct (37.0-47.0) % MCV (80.0-98.0) fL MCH (27.0-33.0) pg MCHC (31.0-35.0) g/dl RDW (11.0-16.0) % Plt Count (160-400) X10*3/uL MPV (9.4-12.3) fL Immature Gran % (Auto) (0.0-0.4) % Neut % (Auto) (45-73) % Lymph % (Auto) (20-40) % [place] % (Auto) (2-11) % Eos % (Auto) (0-4) % Baso % (Auto) (0-2) % Lymph # (Auto) (1.2-4.9) X10*3/uL [place] # (Auto) (0.1-1.2) X10*3/uL Eos # (Auto) (0.0-0.4) X10*3/uL Baso # (Auto) (0.0-0.2) X10*3/uL Abs Immat Gran (auto) (0.00-0.03) X10*3/uL Absolute Neuts (auto) (2.0-8.3) x10*3/uL Absolute Nucleated RBC (0.0-0.012) X10*3/uL Nucleated RBC % (auto) (0.0-0.2) /100WBC Smear Tech's Comments Sodium (135-145) mmol/L Potassium (3.3-5.1) mmol/L Chloride (96-108) mmol/L Carbon Dioxide (22-29) mmol/L Anion Gap (12-20) BUN (9-16) mg/dL Creatinine (0.5-1.4) mg/dL Estim Creat Clear Calc Estimated GFR POC Glucose > 600 H* > 600 H* > 600 H* (60-115) mg/dL Random Glucose (60-115) mg/dL Lactic Acid (0.5-2.0) mmol/L Calcium (8.4-10.2) mg/dL Total Bilirubin (0.0-1.0) mg/dL AST (5-31) U/L ALT (0-31) U/L Alkaline Phosphatase (39-117) U/L Total Protein (6.5-8.0) g/dL Albumin (3.5-5.0) g/dL Lipase (8-78) U/L Urine Color Urine Appearance Urine pH (5.0-8.0) Ur Specific [place] (1.005-1.025) Urine Protein (NEG-TRACE) MG/DL Urine Glucose (UA) (NEG) MG/DL Urine Ketones (NEG) MG/DL Urine Blood (NEG) Urine Nitrite (NEG) Ur Leukocyte Esterase (NEG) Urine RBC (0) /HPF Urine WBC (0-4) /HPF Ur Squamous Epith Cells /LPF Urine Bacteria /LPF Urine Test (NEGATIVE) Urine Opiates Screen (Not Detect) Urine Fentanyl Screen (Not Detect) Ur Barbiturates Screen (Not Detect) Ur Phencyclidine Scrn (Not Detect) Ur Amphetamines Screen (Not Detect) U Benzodiazepines Scrn (Not Detect) Urine Cocaine Screen (Not Detect) U Marijuana (THC) Screen (Not Detect) Ethyl Alcohol mg/dL Acetone, Qual (Negative) COVID-19 ([facility]) (Negative) COVID-19 Clin Com 09/13/21 09/13/21 09/13/21 Range/Units 13:15 13:15 13:15 WBC 28.3 H (4.8-10.8) X10*3/uL RBC 4.12 L (4.20-5.50) X10*6/uL Hgb 10.9 L (12.0-16.0) g/dl Hct 37.6 (37.0-47.0) % MCV 91.3 (80.0-98.0) fL MCH 26.5 L (27.0-33.0) pg MCHC 29.0 L (31.0-35.0) g/dl RDW 15.1 (11.0-16.0) % Plt Count 470 H (160-400) X10*3/uL MPV 9.8 (9.4-12.3) fL Immature Gran % (Auto) 0.8 H (0.0-0.4) % Neut % (Auto) 91.3 H (45-73) % Lymph % (Auto) 3.7 L (20-40) % [place] % (Auto) 4.0 (2-11) % Eos % (Auto) 0.0 (0-4) % Baso % (Auto) 0.2 (0-2) % Lymph # (Auto) 1.0 L (1.2-4.9) X10*3/uL [place] # (Auto) 1.1 (0.1-1.2) X10*3/uL Eos # (Auto) 0.0 (0.0-0.4) X10*3/uL Baso # (Auto) 0.1 (0.0-0.2) X10*3/uL Abs Immat Gran (auto) 0.23 H (0.00-0.03) X10*3/uL Absolute Neuts (auto) 25.9 H (2.0-8.3) x10*3/uL Absolute Nucleated RBC 0.000 (0.0-0.012) X10*3/uL Nucleated RBC % (auto) 0.0 (0.0-0.2) /100WBC Smear Tech's Comments VERIFIED Sodium (135-145) mmol/L Potassium (3.3-5.1) mmol/L Chloride (96-108) mmol/L Carbon Dioxide (22-29) mmol/L Anion Gap (12-20) BUN (9-16) mg/dL Creatinine (0.5-1.4) mg/dL Estim Creat Clear Calc Estimated GFR POC Glucose (60-115) mg/dL Random Glucose (60-115) mg/dL Lactic Acid 7.6 H* (0.5-2.0) mmol/L Calcium (8.4-10.2) mg/dL Total Bilirubin (0.0-1.0) mg/dL AST (5-31) U/L ALT (0-31) U/L Alkaline Phosphatase (39-117) U/L Total Protein (6.5-8.0) g/dL Albumin (3.5-5.0) g/dL Lipase (8-78) U/L Urine Color Urine Appearance Urine pH (5.0-8.0) Ur Specific [place] (1.005-1.025) Urine Protein (NEG-TRACE) MG/DL Urine Glucose (UA) (NEG) MG/DL Urine Ketones (NEG) MG/DL Urine Blood (NEG) Urine Nitrite (NEG) Ur Leukocyte Esterase (NEG) Urine RBC (0) /HPF Urine WBC (0-4) /HPF Ur Squamous Epith Cells /LPF Urine Bacteria /LPF Urine Test (NEGATIVE) Urine Opiates Screen (Not Detect) Urine Fentanyl Screen (Not Detect) Ur Barbiturates Screen (Not Detect) Ur Phencyclidine Scrn (Not Detect) Ur Amphetamines Screen (Not Detect) U Benzodiazepines Scrn (Not Detect) Urine Cocaine Screen (Not Detect) U Marijuana (THC) Screen (Not Detect) Ethyl Alcohol < 10 mg/dL Acetone, Qual (Negative) COVID-19 ([facility]) (Negative) COVID-19 Clin Com 09/13/21 09/13/21 09/13/21 Range/Units 13:15 14:08 15:19 WBC (4.8-10.8) X10*3/uL RBC (4.20-5.50) X10*6/uL Hgb (12.0-16.0) g/dl Hct (37.0-47.0) % MCV (80.0-98.0) fL MCH (27.0-33.0) pg MCHC (31.0-35.0) g/dl RDW (11.0-16.0) % Plt Count (160-400) X10*3/uL MPV (9.4-12.3) fL Immature Gran % (Auto) (0.0-0.4) % Neut % (Auto) (45-73) % Lymph % (Auto) (20-40) % [place] % (Auto) (2-11) % Eos % (Auto) (0-4) % Baso % (Auto) (0-2) % Lymph # (Auto) (1.2-4.9) X10*3/uL [place] # (Auto) (0.1-1.2) X10*3/uL Eos # (Auto) (0.0-0.4) X10*3/uL Baso # (Auto) (0.0-0.2) X10*3/uL Abs Immat Gran (auto) (0.00-0.03) X10*3/uL Absolute Neuts (auto) (2.0-8.3) x10*3/uL Absolute Nucleated RBC (0.0-0.012) X10*3/uL Nucleated RBC % (auto) (0.0-0.2) /100WBC Smear Tech's Comments Sodium 129 L (135-145) mmol/L Potassium 6.6 H* (3.3-5.1) mmol/L Chloride 93 L (96-108) mmol/L Carbon Dioxide 8 L* D (22-29) mmol/L Anion Gap 35 H (12-20) BUN 33 H (9-16) mg/dL Creatinine 2.17 H (0.5-1.4) mg/dL Estim Creat Clear Calc 34.2 Estimated GFR 24 POC Glucose > 600 H* (60-115) mg/dL Random Glucose 954 H* D (60-115) mg/dL Lactic Acid (0.5-2.0) mmol/L Calcium 9.3 D (8.4-10.2) mg/dL Total Bilirubin 0.5 (0.0-1.0) mg/dL AST 16 D (5-31) U/L ALT 10 (0-31) U/L Alkaline Phosphatase 171 H D (39-117) U/L Total Protein 7.6 (6.5-8.0) g/dL Albumin 4.0 (3.5-5.0) g/dL Lipase 14 (8-78) U/L Urine Color Urine Appearance Urine pH (5.0-8.0) Ur Specific [place] (1.005-1.025) Urine Protein (NEG-TRACE) MG/DL Urine Glucose (UA) (NEG) MG/DL Urine Ketones (NEG) MG/DL Urine Blood (NEG) Urine Nitrite (NEG) Ur Leukocyte Esterase (NEG) Urine RBC (0) /HPF Urine WBC (0-4) /HPF Ur Squamous Epith Cells /LPF Urine Bacteria /LPF Urine Test NEGATIVE (NEGATIVE) Urine Opiates Screen (Not Detect) Urine Fentanyl Screen (Not Detect) Ur Barbiturates Screen (Not Detect) Ur Phencyclidine Scrn (Not Detect) Ur Amphetamines Screen (Not Detect) U Benzodiazepines Scrn (Not Detect) Urine Cocaine Screen (Not Detect) U Marijuana (THC) Screen (Not Detect) Ethyl Alcohol mg/dL Acetone, Qual Moderate H (Negative) COVID-19 ([facility]) (Negative) COVID-19 Clin Com 09/13/21 09/13/21 09/13/21 Range/Units 15:19 15:19 15:35 WBC (4.8-10.8) X10*3/uL RBC (4.20-5.50) X10*6/uL Hgb (12.0-16.0) g/dl Hct (37.0-47.0) % MCV (80.0-98.0) fL MCH (27.0-33.0) pg MCHC (31.0-35.0) g/dl RDW (11.0-16.0) % Plt Count (160-400) X10*3/uL MPV (9.4-12.3) fL Immature Gran % (Auto) (0.0-0.4) % Neut % (Auto) (45-73) % Lymph % (Auto) (20-40) % [place] % (Auto) (2-11) % Eos % (Auto) (0-4) % Baso % (Auto) (0-2) % Lymph # (Auto) (1.2-4.9) X10*3/uL [place] # (Auto) (0.1-1.2) X10*3/uL Eos # (Auto) (0.0-0.4) X10*3/uL Baso # (Auto) (0.0-0.2) X10*3/uL Abs Immat Gran (auto) (0.00-0.03) X10*3/uL Absolute Neuts (auto) (2.0-8.3) x10*3/uL Absolute Nucleated RBC (0.0-0.012) X10*3/uL Nucleated RBC % (auto) (0.0-0.2) /100WBC Smear Tech's Comments Sodium (135-145) mmol/L Potassium (3.3-5.1) mmol/L Chloride (96-108) mmol/L Carbon Dioxide (22-29) mmol/L Anion Gap (12-20) BUN (9-16) mg/dL Creatinine (0.5-1.4) mg/dL Estim Creat Clear Calc Estimated GFR POC Glucose (60-115) mg/dL Random Glucose (60-115) mg/dL Lactic Acid (0.5-2.0) mmol/L Calcium (8.4-10.2) mg/dL Total Bilirubin (0.0-1.0) mg/dL AST (5-31) U/L ALT (0-31) U/L Alkaline Phosphatase (39-117) U/L Total Protein (6.5-8.0) g/dL Albumin (3.5-5.0) g/dL Lipase (8-78) U/L Urine Color YELLOW Urine Appearance CLEAR Urine pH 5.5 (5.0-8.0) Ur Specific [place] 1.010 (1.005-1.025) Urine Protein NEG (NEG-TRACE) MG/DL Urine Glucose (UA) >=1000 H (NEG) MG/DL Urine Ketones >=80 (NEG) MG/DL Urine Blood TRACE (NEG) Urine Nitrite NEG (NEG) Ur Leukocyte Esterase NEG (NEG) Urine RBC 1-4 (0) /HPF Urine WBC 5-9 H (0-4) /HPF Ur Squamous Epith Cells TRACE /LPF Urine Bacteria TRACE /LPF Urine Test (NEGATIVE) Urine Opiates Screen Not Detected (Not Detect) Urine Fentanyl Screen Not Detected (Not Detect) Ur Barbiturates Screen Not Detected (Not Detect) Ur Phencyclidine Scrn Not Detected (Not Detect) Ur Amphetamines Screen Not Detected (Not Detect) U Benzodiazepines Scrn Not Detected (Not Detect) Urine Cocaine Screen Not Detected (Not Detect) U Marijuana (THC) Screen POSITIVE H (Not Detect) Ethyl Alcohol mg/dL Acetone, Qual (Negative) COVID-19 ([facility]) Negative (Negative) COVID-19 Clin Com See Note Critical Care Time Critical Care Time Critical Care Time: Yes Total Critical Care Time: 120 Attestation: Critical care time secondary to diabetic ketoacidosis with possible sepsis requiring large fluid boluses, insulin drip, broad-spectrum antibiotics, intensive care unit disposition. Critical care time is outside of any separately billable procedures Discharge Plan Discharge Patient Disposition: Admitted As Inpatient Prescriptions: No Action midodrine 5 mg tablet 5 mg PO DAILY Qty: 90 2RF omeprazole 20 mg capsule,delayed release(DR/EC) 20 mg PO BID Qty: 180 3RF albuterol sulfate 90 mcg/actuation HFA aerosol inhaler 1 puff PO Q4H PRN (Reason: for wheezing) Qty: 8.5 2RF metoprolol tartrate 25 mg tablet 25 mg PO BID Qty: 180 0RF insulin aspart U-100 [Novolog Flexpen U-100 Insulin] 100 unit/mL (3 mL) insulin pen 0 unit subcut DIRECTED 0RF Rx Instructions: INSULIN PUMP lorazepam 1 mg Tablet 1 mg PO TID PRN (Reason: Anxiety) 0RF lamotrigine 200 mg Tablet 200 mg PO BID 0RF zolpidem 10 mg Tablet 10 mg PO BEDTIME 0RF risperidone 2 mg tablet 1 tab PO BID 0RF
--- NOTE | 2021-09-13 12:56 | PC.NURSE ---
PHLEBOTOMY CALLED FOR TOUGH STICK DRAW FOR THIS PT @ THIS TIME
[2021-09-13 13:05] LABS: Glucose, Whole Blood > 600 mg/dL (60-115)
[2021-09-13 13:05] LABS: Glucose, Whole Blood > 600 mg/dL (60-115)
[2021-09-13 13:05] LABS: Glucose, Whole Blood > 600 mg/dL (60-115)
[2021-09-13] MEDS: Insulin Regular, Human 100 UNIT/ML 3 ML VIAL 8 UNIT IVPUSH (13:08)
[2021-09-13 13:27] LABS: Basophils Absolute Auto 0.1 X10*3/uL (0.0-0.2); Basophils Percent Auto 0.2 % (0-2); Hematocrit 37.6 % (37.0-47.0); Hemoglobin 10.9 g/dl (12.0-16.0); Imm Gran Abs Auto 0.23 X10*3/uL (0.00-0.03); Imm Gran Pct Auto 0.8 % (0.0-0.4); Lymphocytes Percent Auto 3.7 % (20-40); MANUAL DIFF FLAG SCAN; Mean Corpuscular Hemoglobin 26.5 pg (27.0-33.0); Mean Corpuscular Volume 91.3 fL (80.0-98.0); Mean Platelet Volume 9.8 fL (9.4-12.3); Monocytes Absolute Auto 1.1 X10*3/uL (0.1-1.2); Neutrophils Absolute Auto 25.9 x10*3/uL (2.0-8.3); Neutrophils Percent Auto 91.3 % (45-73); PLT CLUMP 1; Red Blood Count 4.12 X10*6/uL (4.20-5.50); Red Cell Distribution Width 15.1 % (11.0-16.0); SCAN SMEAR FLAG 1
[2021-09-13 13:29] LABS: Platelet Count 470 X10*3/uL (160-400)
[2021-09-13 13:30] LABS: White Blood Count 28.3 X10*3/uL (4.8-10.8)
[2021-09-13] MEDS: Pantoprazole Sodium 40 MG/10 ML VIAL IVPUSH (13:31)
[2021-09-13 13:36] LABS: Ethanol < 10 mg/dL
[2021-09-13 13:44] LABS: Acetone, serum QL Moderate (Negative)
[2021-09-13] MEDS: Insulin Regular/NS 100 UNIT/100 ML PLAST..BAG 6 UNIT IVCONT (13:47)
[2021-09-13 13:51] LABS: Lactic Acid 7.6 mmol/L (0.5-2.0)
--- NOTE | 2021-09-13 14:02 | PC.NURSE ---
spoke w pt's regarding pt condition, plan to admit, will be coming to visit later.
[2021-09-13 14:06] LABS: SLIDE REVIEW VERIFIED
--- NOTE | 2021-09-13 14:17 | PC.NURSE ---
Pt medicated per mar, difficult stick, port has been accessed and flushing well but no blood return able to be obtained. Phlebotomy to bedside attempting to get all of the labs. Insulin drip initiated and started at 6 units / hr. EKG obtained. SKin cool and dry, resp reg and even, no vomiting noted at this time, easily arousable.
[2021-09-13 14:20] LABS: Glucose, Whole Blood > 600 mg/dL (60-115)
--- NOTE | 2021-09-13 14:42 | PHA.MEDREC ---
Pharmacy Consult ? Medication Reconciliation Pharmacy has completed the medication reconciliation. Patient able to confirm medications that were recently filled. Reports no longer taking baclofen. Patient is on an insulin pump with alice Beck PharmD
[2021-09-13 15:17] LABS: Reflex Lactate? Lactic Acid Added
[2021-09-13] MEDS: HYDROmorphone HCl 2 MG/ML VIAL IVPUSH (15:25)
[2021-09-13 15:30] LABS: Appearance Urine CLEAR; Color Urine YELLOW; Glucose Urine UA >=1000 MG/DL (NEG); Leukocyte Esterase Urine NEG (NEG); Nitrite Urine NEG (NEG); PH 5.5 (5.0-8.0); UACC Culture Trigger NO; Urine Blood TRACE (NEG); Urine Ketones >=80 MG/DL (NEG); Urine Protein NEG (NEG-TRACE)
[2021-09-13 15:36] LABS: Urine Pregnancy NEGATIVE (NEGATIVE)
[2021-09-13 15:37] LABS: UPreg QC Valid YES
--- NOTE | 2021-09-13 15:40 | PC.NURSE ---
Pt's abx cont to be held due to pt tough stick, single lumen access unable to draw blood from, phlebotomy cont to have difficulty obtaining cultures. aware.
[2021-09-13 15:42] LABS: Amphetamine Screen Urine Not Detected (Not Detect); Barbiturates, Urine Not Detected (Not Detect); Benzodiazepines Screen Urine Not Detected (Not Detect); Cannabinoid Screen Urine POSITIVE (Not Detect); Cocaine Screen Urine Not Detected (Not Detect); Fentanyl, urine Not Detected (Not Detect); Opiate Screen Urine Not Detected (Not Detect); Phencyclidine Screen Urine Not Detected (Not Detect)
[2021-09-13 15:49] LABS: Bacteria Urine TRACE /LPF; Squamous Epithelial Cell Urine TRACE /LPF; UACC CULT YES
[2021-09-13 16:00] LABS: Alanine Aminotransferase 10 U/L (0-31); Alkaline Phosphatase 171 U/L (39-117); Anion Gap 35 (12-20); Aspartate Amino Transferase 16 U/L (5-31); Bilirubin Total 0.5 mg/dL (0.0-1.0); Blood Urea Nitrogen 33 mg/dL (9-16); Calcium 9.3 mg/dL (8.4-10.2); Carbon Dioxide 8 mmol/L (22-29); Chloride 93 mmol/L (96-108); Creatinine Clr Calc Pharmacy 34.2; Estimated Glomerular Filt Rate 24; Glucose Random 954 mg/dL (60-115); Lipase 14 U/L (8-78); Potassium 6.6 mmol/L (3.3-5.1); Sodium 129 mmol/L (135-145); Total Protein 7.6 g/dL (6.5-8.0)
[2021-09-13 16:09] LABS: COVID-19 Test Negative (Negative)
[2021-09-13 16:21] LABS: TSH reflex Free T4 0.62 uIU/mL (0.32-4.0)
--- NOTE | 2021-09-13 16:35 | PM.CCHP ---
History of Present Illness Date of Service: 09/13/21 Chief Complaint: abdominal pain, DKA 46-year-old lady with underlying history of diabetes mellitus, bipolar, anxiety, gastroparesis, NSTEMI, pancreatitis admitted on 09/13/2021 with 1 day history of abdominal pain nausea and vomiting. Patient states that she has been out feeling well for several days and not sure if she to the right amount of insulin. On ER evaluation patient was noted to be hyperkalemic with diabetic ketoacidosis and acute renal failure. Her CT abdomen results were discussed with surgical team and deemed not to require an acute intervention. Patient has been started on insulin drip and IV fluids and admitted to the intensive care unit. Review of Systems Constitutional: Constitutional: Denies daytime sleepiness, Denies excessive sweating, Denies fatigue, Denies fever(s), Denies lethargy, Denies malaise, Denies night sweats, Denies snoring and Denies weight loss Eyes: Eyes: Denies blurry vision and Denies itchy eyes ENT: Denies nasal congestion, Denies post nasal drip, Denies sinus pain, Denies sinus pressure and Denies other ( Thrush) Cardiovascular: Cardiovascular: Denies chest pain, Denies pedal edema, Denies dyspnea, Denies orthopnea and Denies paroxysmal nocturnal dyspnea Respiratory: Respiratory: Denies cough, Denies hemoptysis, Denies excessive phlegm production, Denies dyspnea, Denies snoring and Denies wheezing Gastrointestinal: Gastrointestinal: Reports abdominal pain, Denies heartburn, Reports nausea and Reports vomiting Musculoskeletal: Musculoskeletal: Denies myalgias, Denies arthralgias and Denies joint swelling Integumentary/Breasts: Skin/Breast: Denies rash Neurologic: Denies memory loss and Denies seizure-like activity Psychiatric: Psychiatric: Denies abnormal sleep pattern, Denies anxiety and Denies memory loss Endocrine: Endocrine: Denies excessive sweating, Denies fatigue and Denies heat intolerance Hematologic/Lymphatic: Hematologic/Lymphatic: Denies easy bruising Allergic/Immunologic: Allergic/Immunologic: Denies itchy eyes, Denies seasonal rhinorrhea and Denies wheezing PMFSH Past Medical History Medical History (Updated 09/13/21 @ 16:39 by Thomas Salvador MD) Anxiety Bipolar 1 disorder Diabetes Diabetic gastroparesis Gastroparesis NSTEMI (non-ST elevated myocardial infarction) Pancreatitis Recurrent UTI Status post fall Surgical History Surgical History H/O pyloroplasty H/O: hysterectomy History of appendectomy History of ERCP History of tonsillectomy Social History Social History Household Members: Spouse Housing: House Do you presently have visiting nurse or other home services: Yes Alcohol intake: never Patient Tobacco Use Status: Former Tobacco user Use of substances other than those prescribed or required for medical reasons: Yes Substance Use Type: Marijuana Substance Use Frequency: Daily Last Used Substance: Days (ago) Advance Directives: No Advance Directives Information Provided: No service: No Current occupational status: disabled Meds Allergies Allergy/AdvReac Type Severity Reaction Status Date / Time morphine [MORPHINE] Allergy Intermediate RASH, Verified 04/10/21 09:37 hives, hives mushroom Allergy Intermediate HIVES/RASH Verified 04/10/21 09:37 mushroom Allergy Unknown throat Uncoded 04/10/21 09:37 closes up/difficult breathing mushrooms Allergy Unknown anaphylaxis Uncoded 04/10/21 09:37 Active Medications: Current Medications Heparin Sodium (Porcine) (Heparin Sodium,Porcine 5,000 Unit/Ml Vial) 5,000 unit SUBCUT Q8H [facility] Insulin Human Regular (Myxredlin) 100 unit in 100 mls @ 6 mls/hr IVCONT .[id number] RAISA; Protocol Last Admin: 09/13/21 13:47 Dose: 6 units/hr, 6 mls/hr Documented by: Ondansetron HCl (Ondansetron Hcl 4 Mg/2 Ml Vial) 4 mg IVPUSH Q8H PRN PRN Reason: Nausea Home Medications Medication Instructions Recorded Confirmed Last Taken Type lamotrigine 200 mg tablet 200 mg PO BID 05/11/20 09/13/21 Unknown History lorazepam 1 mg tablet 1 mg PO TID PRN 05/11/20 09/13/21 Unknown History zolpidem 10 mg tablet 10 mg PO BEDTIME 05/11/20 09/13/21 Unknown History insulin aspart U-100 100 unit/mL 0 unit SUBCUT DIRECTED 06/01/20 09/13/21 Unknown History (3 mL) subcutaneous pen (Novolog Flexpen U-100 Insulin aspart) risperidone 2 mg tablet 1 tab PO BID 09/13/21 09/13/21 Unknown History Physical Exam Vital Signs: Vital Signs: Last Vital Signs Temp 98 F 09/13/21 14:00 Pulse 139 H 09/13/21 14:00 Resp 21 H 09/13/21 14:00 BP 121/62 09/13/21 14:00 Pulse Ox 100 09/13/21 14:00 BMI result Body Mass Index 28.4 Const: General: no acute distress, alert and awake Nutritional Appearance: not obese Orientation/consciousness: Other orientation findings ( oriented) HENMT: Head: Yes atraumatic Mouth: no other ( thrush) Throat: No postnasal drainage Eyes: General: appearance normal, both eyes and all related structures Sclerae: sclerae normal EOM: EOMs intact bilaterally Neck: Neck: Yes no lymphadenopathy, Yes trachea midline and Yes supple Lymphatic: no lymphadenopathy noted Resp: Effort & Inspection: normal respiratory effort and no respiratory distress Auscultation: clear to auscultation bilaterally Cardio: Rate: tachycardic Rhythm: regular rhythm Heart sounds: no gallops, no murmurs and no rubs GI: Palpation (GI): Soft to palpation, not rigid, No Rebound tenderness present and Other GI palpation findings present ( Mild diffuse abdominal tenderness) Auscultation: normal bowel sounds Skin: General skin exam: other ( warm) Rashes: no rashes Extrem: General: Yes no pedal edema, No clubbing and No cyanosis Results Labs CBC and Chem 7: 09/13/21 13:15 09/13/21 13:15 Labs: Laboratory Results - last 24 hr 09/13/21 09/13/21 09/13/21 12:10 12:50 13:01 MCV MCH MCHC RDW Plt Count MPV Immature Gran % (Auto) Neut % (Auto) Lymph % (Auto) Kendall % (Auto) Eos % (Auto) Baso % (Auto) Lymph # (Auto) Kendall # (Auto) Eos # (Auto) Baso # (Auto) Abs Immat Gran (auto) Absolute Neuts (auto) Absolute Nucleated RBC Nucleated RBC % (auto) Smear Tech's Comments Anion Gap Estim Creat Clear Calc Estimated GFR POC Glucose > 600 H* > 600 H* > 600 H* Random Glucose Lactic Acid Calcium Total Bilirubin AST ALT Alkaline Phosphatase Total Protein Albumin Lipase TSH Urine Color Urine Appearance Urine pH Ur Specific Mobile Urine Protein Urine Glucose (UA) Urine Ketones Urine Blood Urine Nitrite Ur Leukocyte Esterase Urine RBC Urine WBC Ur Squamous Epith Cells Urine Bacteria Urine Test Urine Opiates Screen Urine Fentanyl Screen Ur Barbiturates Screen Ur Phencyclidine Scrn Ur Amphetamines Screen U Benzodiazepines Scrn Urine Cocaine Screen U Marijuana (THC) Screen Ethyl Alcohol Acetone, Qual COVID-19 (PERRI) COVID-19 Clin Com 09/13/21 09/13/21 09/13/21 13:15 13:15 13:15 MCV 91.3 MCH 26.5 L MCHC 29.0 L RDW 15.1 Plt Count 470 H MPV 9.8 Immature Gran % (Auto) 0.8 H Neut % (Auto) 91.3 H Lymph % (Auto) 3.7 L Kendall % (Auto) 4.0 Eos % (Auto) 0.0 Baso % (Auto) 0.2 Lymph # (Auto) 1.0 L Kendall # (Auto) 1.1 Eos # (Auto) 0.0 Baso # (Auto) 0.1 Abs Immat Gran (auto) 0.23 H Absolute Neuts (auto) 25.9 H Absolute Nucleated RBC 0.000 Nucleated RBC % (auto) 0.0 Smear Tech's Comments VERIFIED Anion Gap Estim Creat Clear Calc Estimated GFR POC Glucose Random Glucose Lactic Acid 7.6 H* Calcium Total Bilirubin AST ALT Alkaline Phosphatase Total Protein Albumin Lipase TSH Urine Color Urine Appearance Urine pH Ur Specific Mobile Urine Protein Urine Glucose (UA) Urine Ketones Urine Blood Urine Nitrite Ur Leukocyte Esterase Urine RBC Urine WBC Ur Squamous Epith Cells Urine Bacteria Urine Test Urine Opiates Screen Urine Fentanyl Screen Ur Barbiturates Screen Ur Phencyclidine Scrn Ur Amphetamines Screen U Benzodiazepines Scrn Urine Cocaine Screen U Marijuana (THC) Screen Ethyl Alcohol < 10 Acetone, Qual COVID-19 (PERRI) COVID-19 Clin Com 09/13/21 09/13/21 09/13/21 13:15 14:08 15:19 MCV MCH MCHC RDW Plt Count MPV Immature Gran % (Auto) Neut % (Auto) Lymph % (Auto) Kendall % (Auto) Eos % (Auto) Baso % (Auto) Lymph # (Auto) Kendall # (Auto) Eos # (Auto) Baso # (Auto) Abs Immat Gran (auto) Absolute Neuts (auto) Absolute Nucleated RBC Nucleated RBC % (auto) Smear Tech's Comments Anion Gap 35 H Estim Creat Clear Calc 34.2 Estimated GFR 24 POC Glucose > 600 H* Random Glucose 954 H* D Lactic Acid Calcium 9.3 D Total Bilirubin 0.5 AST 16 D ALT 10 Alkaline Phosphatase 171 H D Total Protein 7.6 Albumin 4.0 Lipase 14 TSH 0.62 Urine Color Urine Appearance Urine pH Ur Specific Mobile Urine Protein Urine Glucose (UA) Urine Ketones Urine Blood Urine Nitrite Ur Leukocyte Esterase Urine RBC Urine WBC Ur Squamous Epith Cells Urine Bacteria Urine Test NEGATIVE Urine Opiates Screen Urine Fentanyl Screen Ur Barbiturates Screen Ur Phencyclidine Scrn Ur Amphetamines Screen U Benzodiazepines Scrn Urine Cocaine Screen U Marijuana (THC) Screen Ethyl Alcohol Acetone, Qual Moderate H COVID-19 (PERRI) [employer] 09/13/21 09/13/21 09/13/21 15:19 15:19 15:35 MCV MCH MCHC RDW Plt Count MPV Immature Gran % (Auto) Neut % (Auto) Lymph % (Auto) Kendall % (Auto) Eos % (Auto) Baso % (Auto) Lymph # (Auto) Kendall # (Auto) Eos # (Auto) Baso # (Auto) Abs Immat Gran (auto) Absolute Neuts (auto) Absolute Nucleated RBC Nucleated RBC % (auto) Smear Tech's Comments Anion Gap Estim Creat Clear Calc Estimated GFR POC Glucose Random Glucose Lactic Acid Calcium Total Bilirubin AST ALT Alkaline Phosphatase Total Protein Albumin Lipase TSH Urine Color YELLOW Urine Appearance CLEAR Urine pH 5.5 Ur Specific Mobile 1.010 Urine Protein NEG Urine Glucose (UA) >=1000 H Urine Ketones >=80 Urine Blood TRACE Urine Nitrite NEG Ur Leukocyte Esterase NEG Urine RBC 1-4 Urine WBC 5-9 H Ur Squamous Epith Cells TRACE Urine Bacteria TRACE Urine Test Urine Opiates Screen Not Detected Urine Fentanyl Screen Not Detected Ur Barbiturates Screen Not Detected Ur Phencyclidine Scrn Not Detected Ur Amphetamines Screen Not Detected U Benzodiazepines Scrn Not Detected Urine Cocaine Screen Not Detected U Marijuana (THC) Screen POSITIVE H Ethyl Alcohol Acetone, Qual COVID-19 (PERRI) Negative COVIDLolay See Note Assessment and Plan (1) Diabetic ketoacidosis: Status: Acute (2) Hyperkalemia: Status: Acute (3) Acute kidney injury: Status: Acute (4) Bipolar 1 disorder: Status: Acute (5) Diabetic gastroparesis: Status: Acute Plan Assessment: 46-year-old lady with underlying history of bipolar disorder, diabetic with prior episodes of diabetic ketoacidosis admitted with diffuse abdominal pain, nausea, and vomiting secondary to diabetic ketoacidosis, further complicated by hyperkalemia and acute kidney injury Plan: Neuro: No acute issues. Cardiac: No acute issues. Pulmonary: No acute issues. Renal: hyperkalemia, acute kidney injury, likely secondary to intravascular volume depletion from diabetic ketoacidosis. Non oliguric. Continue to monitor renal indices and urine output. Continue IV fluid resuscitation. Endo: Diabetic ketoacidosis, continue on insulin drip. GI: No acute issues. ID: No acute issues Heme/Onc: No acute issues. Psych: No acute issues. Miscellaneous: No acute issues. Prophylaxis: Heparin Diet: nothing by mouth Critical care time spent: 30 minutes
[2021-09-13] MEDS: LORazepam 2 MG/ML VIAL IVPUSH (17:02)
--- NOTE | 2021-09-13 17:05 | PC.NURSE ---
Ativan 2mg IV admin in preparation for central line to obtain blood cultures and admin mult meds at once. Awaiting MD to place line.
--- NOTE | 2021-09-13 17:40 | PC.NURSE ---
Vince Sena. pt's would like phone calls with updates. [phone]
--- NOTE | 2021-09-13 17:44 | PC.NURSE ---
attempted to call in report to ICU, RN to call back
[2021-09-13 18:06] LABS: Glucose, Whole Blood > 600 mg/dL (60-115)
--- NOTE | 2021-09-13 18:35 | PC.NURSE ---
Pt's insulin unable to be titrated at this time due to no definitive blood glucose number. Unable to obtain blood at this time, pt difficult stick. aware.
--- NOTE | 2021-09-13 18:37 | PC.NURSE ---
report given to WEB DESIGN SPECIALIST, provider will attempt access in ICU.
[2021-09-13 18:56] LABS: Glucose, Whole Blood 588 mg/dL (60-115)
[2021-09-13 19:56] LABS: Glucose, Whole Blood 475 mg/dL (60-115)
[2021-09-13] MEDS: Lactated Ringers 1,000 ML 250 ML IVCONT ×2 (20:01→23:52)
[2021-09-13] MEDS: Heparin Sodium,Porcine 5,000 UNIT/ML VIAL 5000 UNIT SUBCUT (20:15)
[2021-09-13 20:21] LABS: Anion Gap 25 (12-20); Blood Urea Nitrogen 32 mg/dL (9-16); Calcium 8.7 mg/dL (8.4-10.2); Carbon Dioxide 9 mmol/L (22-29); Chloride 111 mmol/L (96-108); Creatinine Clr Calc Pharmacy 42.6; Estimated Glomerular Filt Rate 31; Glucose Random 562 mg/dL (60-115); Potassium 5.3 mmol/L (3.3-5.1); Sodium 140 mmol/L (135-145)
[2021-09-13 20:57] LABS: Glucose, Whole Blood 383 mg/dL (60-115)
[2021-09-13 22:28] LABS: Glucose, Whole Blood 327 mg/dL (60-115)
[2021-09-13 23:04] LABS: Glucose, Whole Blood 296 mg/dL (60-115)
[2021-09-14] VITALS (24 sets, daily range): BP systolic 84–142; BP diastolic 45–86; PULSE 89–130; RESP 10–21; TEMP 36.6–37.4; O2SAT 93–99; BMI 28.9
[2021-09-14 01:02] LABS: Glucose, Whole Blood 200 mg/dL (60-115)
[2021-09-14] MEDS: Insulin Regular/NS 100 UNIT/100 ML PLAST..BAG 8 UNIT IVCONT (01:09)
[2021-09-14] MEDS: Dextrose 5 % and Lactated Ring 1,000 ML 250 ML IVCONT ×4 (01:10→21:02)
[2021-09-14 01:59] LABS: Glucose, Whole Blood 209 mg/dL (60-115)
[2021-09-14] MEDS: Heparin Sodium,Porcine 5,000 UNIT/ML VIAL 5000 UNIT SUBCUT ×3 (02:42→17:15)
[2021-09-14] MEDS: ondansetron HCL 4 MG/2 ML VIAL IVPUSH ×3 (02:43→19:16)
[2021-09-14 03:57] LABS: Glucose, Whole Blood 172 mg/dL (60-115)
[2021-09-14 05:12] LABS: Glucose, Whole Blood 141 mg/dL (60-115)
[2021-09-14 05:50] LABS: Basophils Absolute Auto 0.1 X10*3/uL (0.0-0.2); Basophils Percent Auto 0.2 % (0-2); Hematocrit 30.5 % (37.0-47.0); Hemoglobin 9.9 g/dl (12.0-16.0); Imm Gran Abs Auto 0.27 X10*3/uL (0.00-0.03); Imm Gran Pct Auto 0.9 % (0.0-0.4); Lymphocytes Absolute Auto 3.1 X10*3/uL (1.2-4.9); Lymphocytes Percent Auto 10.4 % (20-40); MANUAL DIFF FLAG SCAN; Mean Corpuscular HGB Conc 32.5 g/dl (31.0-35.0); Mean Corpuscular Volume 83.1 fL (80.0-98.0); Monocytes Percent Auto 6.8 % (2-11); Neutrophils Absolute Auto 24.2 x10*3/uL (2.0-8.3); Neutrophils Percent Auto 81.7 % (45-73); Platelet Count 544 X10*3/uL (160-400); Red Blood Count 3.67 X10*6/uL (4.20-5.50); Red Cell Distribution Width 14.9 % (11.0-16.0); SCAN SMEAR FLAG 1; White Blood Count 29.6 X10*3/uL (4.8-10.8)
[2021-09-14 06:07] LABS: Glucose, Whole Blood 154 mg/dL (60-115)
[2021-09-14 06:09] LABS: Albumin Level 3.6 g/dL (3.5-5.0); Anion Gap 14 (12-20); Blood Urea Nitrogen 21 mg/dL (9-16); Carbon Dioxide 18 mmol/L (22-29); Chloride 113 mmol/L (96-108); Creatinine Clr Calc Pharmacy 61.8; Estimated Glomerular Filt Rate 48; Glucose Random 139 mg/dL (60-115); Magnesium 1.9 mg/dL (1.6-2.6); Phosphorus 1.4 mg/dL (2.7-4.5); Potassium 3.6 mmol/L (3.3-5.1); Sodium 141 mmol/L (135-145)
[2021-09-14 06:39] LABS: SLIDE REVIEW VERIFIED
--- NOTE | 2021-09-14 07:08 | P.CDIC_ITS ---
CDI Concurrent Query Documentation Clarification: PHYSICIAN'S DOCUMENTATION REQUEST Date of Query: 09/14/21 0708 Patient Name: Yumiko Sena Admit Date: 09/13/21 Dear Doctor, A review of the medical record indicates additional documentation may be needed. Please review below and update the documentation accordingly. Risk Factors/Clinical Indicators/Treatments Sodium on 09/13/21: 129 IVF: NS 2400 mls at 2400 mls/hour IV Q1H Repeat sodium 141 Based on the above, could you clarify in the Progress Notes the appropriate diagnosis, if significant, that supports the above abnormalities and additional evaluation, monitoring, and/or treatment rendered: * Based on the above, could you provide an associated diagnosis that would support the low sodium values requiring additional treatment, evaluation and monitoring? * Other (please specify) * Unable to determine Use of terms such as suspected, likely, concern for, or probable (associated with a specific diagnosis that is being evaluated, monitored, or treated as if it exists) are acceptable and can be coded in the inpatient setting, when documented at the time of discharge. Thank you, Natalya Gonzalez , MEREDITH Extension: [phone] Please use your independent medical judgment in providing your response. THIS QUERY IS PART OF THE PERMANENT MEDICAL RECORD Provider Response: Other Other Diagnosis: Pseudohyponatremia secondary to hyperglycemia
[2021-09-14 07:09] LABS: Glucose, Whole Blood 187 mg/dL (60-115)
[2021-09-14 08:01] LABS: Glucose, Whole Blood 175 mg/dL (60-115)
[2021-09-14] MEDS: Potassium Phosphate/NS 15 MMOL/250 ML PLAST..BAG 62.5 MMOL IV ×3 (08:07→16:10)
[2021-09-14 09:01] LABS: Glucose, Whole Blood 148 mg/dL (60-115)
[2021-09-14 10:15] LABS: Glucose, Whole Blood 95 mg/dL (60-115)
--- NOTE | 2021-09-14 10:54 | MHC.CM.PN ---
Met with pt who was sleepy and suggested CM contact her spouse Deon. Call placed to Deon - he states pt has been doing well and has stayed out of the hospital during the past two years following a gastric paresis surgical proceedure and an insulin pump. Per Deon, pt has [facility] CM services and sees a MH counselor 1x weekly. She is independent with care needs including filling her own pump 3x weekly. Pt has an implantable port (over 2 years old) that hasn't been accessed/flushed at home for over a year per Deon. He also states pt has been exhibiting more signs of depression and is attributing this to her present state. Maybe she didn't fill her pump and ended up with DKA. HCP on file, [facility] hernandezx x3, PCP Dr. Zaragoza. Pt should be able to return to home with existing supports and outpt services. Deon can transport.
[2021-09-14 11:04] LABS: Glucose, Whole Blood 134 mg/dL (60-115)
[2021-09-14 12:03] LABS: Glucose, Whole Blood 271 mg/dL (60-115)
--- NOTE | 2021-09-14 12:22 | P.PNCC_ITS ---
Subjective Subjective Date of Service: 09/14/21 Interval History: 46-year-old lady with underlying history of diabetes mellitus, bipolar, anxiety, gastroparesis, NSTEMI, pancreatitis admitted on 09/13/2021 with 1 day history of abdominal pain nausea and vomiting. Patient states that she has been out feeling well for several days and not sure if she to the right amount of insulin. On ER evaluation patient was noted to be hyperkalemic with diabetic ketoacidosis and acute renal failure. Her CT abdomen results were discussed with surgical team and deemed not to require an acute intervention. Patient has been started on insulin drip and IV fluids and admitted to the intensive care un it. No events overnight. Continues on insulin drip. Critical Care Time (minutes): 0 Physical Exam Vital Signs: Vital Signs: Last Vital Signs Temp 99.3 F 09/14/21 09:00 Pulse 115 H 09/14/21 12:00 Resp 10 L 09/14/21 12:00 BP 142/73 H 09/14/21 12:00 Pulse Ox 95 09/14/21 12:00 BMI result Body Mass Index 28.9 Const: General: no acute distress, alert and awake Eyes: Sclerae: sclerae normal EOM: EOMs intact bilaterally Neck: Neck: Yes no lymphadenopathy, Yes trachea midline and Yes supple Resp: Effort & Inspection: normal respiratory effort and no respiratory distress Auscultation: clear to auscultation bilaterally Cardio: Rate: regular rate Rhythm: regular rhythm Heart sounds: no gallops, no murmurs and no rubs GI: Palpation (GI): Soft to palpation and Other GI palpation findings present ( Nontender) Auscultation: normal bowel sounds Extrem: General: Yes no pedal edema, No clubbing and No cyanosis Objective Data Labs CBC & Chem 7: 09/14/21 05:35 09/14/21 05:35 Labs: Laboratory Results - last 24 hr 09/13/21 09/13/21 09/13/21 12:10 12:50 13:01 WBC RBC Hgb Hct MCV MCH MCHC RDW Plt Count MPV Immature Gran % (Auto) Neut % (Auto) Lymph % (Auto) [place] % (Auto) Eos % (Auto) Baso % (Auto) Lymph # (Auto) [place] # (Auto) Eos # (Auto) Baso # (Auto) Abs Immat Gran (auto) Absolute Neuts (auto) Absolute Nucleated RBC Nucleated RBC % (auto) Smear Tech's Comments Sodium Potassium Chloride Carbon Dioxide Anion Gap BUN Creatinine Estim Creat Clear Calc Estimated GFR POC Glucose > 600 H* > 600 H* > 600 H* Random Glucose Lactic Acid Calcium Phosphorus Magnesium Total Bilirubin AST ALT Alkaline Phosphatase Total Protein Albumin Lipase TSH Urine Color Urine Appearance Urine pH Ur Specific [place] Urine Protein Urine Glucose (UA) Urine Ketones Urine Blood Urine Nitrite Ur Leukocyte Esterase Urine RBC Urine WBC Ur Squamous Epith Cells Urine Bacteria Urine Test Urine Opiates Screen Urine Fentanyl Screen Ur Barbiturates Screen Ur Phencyclidine Scrn Ur Amphetamines Screen U Benzodiazepines Scrn Urine Cocaine Screen U Marijuana (THC) Screen Ethyl Alcohol Acetone, Qual COVID-19 (PERRI) COVID-19 [employer] 09/13/21 09/13/21 09/13/21 13:15 13:15 13:15 WBC 28.3 H RBC 4.12 L Hgb 10.9 L Hct 37.6 MCV 91.3 MCH 26.5 L MCHC 29.0 L RDW 15.1 Plt Count 470 H MPV 9.8 Immature Gran % (Auto) 0.8 H Neut % (Auto) 91.3 H Lymph % (Auto) 3.7 L [place] % (Auto) 4.0 Eos % (Auto) 0.0 Baso % (Auto) 0.2 Lymph # (Auto) 1.0 L [place] # (Auto) 1.1 Eos # (Auto) 0.0 Baso # (Auto) 0.1 Abs Immat Gran (auto) 0.23 H Absolute Neuts (auto) 25.9 H Absolute Nucleated RBC 0.000 Nucleated RBC % (auto) 0.0 Smear Tech's Comments VERIFIED Sodium Potassium Chloride Carbon Dioxide Anion Gap BUN Creatinine Estim Creat Clear Calc Estimated GFR POC Glucose Random Glucose Lactic Acid 7.6 H* Calcium Phosphorus Magnesium Total Bilirubin AST ALT Alkaline Phosphatase Total Protein Albumin Lipase TSH Urine Color Urine Appearance Urine pH Ur Specific [place] Urine Protein Urine Glucose (UA) Urine Ketones Urine Blood Urine Nitrite Ur Leukocyte Esterase Urine RBC Urine WBC Ur Squamous Epith Cells Urine Bacteria Urine Test Urine Opiates Screen Urine Fentanyl Screen Ur Barbiturates Screen Ur Phencyclidine Scrn Ur Amphetamines Screen U Benzodiazepines Scrn Urine Cocaine Screen U Marijuana (THC) Screen Ethyl Alcohol < 10 Acetone, Qual COVID-19 (PERRI) COVID-19 [employer] 09/13/21 09/13/21 09/13/21 13:15 14:08 15:19 WBC RBC Hgb Hct MCV MCH MCHC RDW Plt Count MPV Immature Gran % (Auto) Neut % (Auto) Lymph % (Auto) [place] % (Auto) Eos % (Auto) Baso % (Auto) Lymph # (Auto) [place] # (Auto) Eos # (Auto) Baso # (Auto) Abs Immat Gran (auto) Absolute Neuts (auto) Absolute Nucleated RBC Nucleated RBC % (auto) Smear Tech's Comments Sodium 129 L Potassium 6.6 H* Chloride 93 L Carbon Dioxide 8 L* D Anion Gap 35 H BUN 33 H Creatinine 2.17 H Estim Creat Clear Calc 34.2 Estimated GFR 24 POC Glucose > 600 H* Random Glucose 954 H* D Lactic Acid Calcium 9.3 D Phosphorus Magnesium Total Bilirubin 0.5 AST 16 D ALT 10 Alkaline Phosphatase 171 H D Total Protein 7.6 Albumin 4.0 Lipase 14 TSH 0.62 Urine Color Urine Appearance Urine pH Ur Specific [place] Urine Protein Urine Glucose (UA) Urine Ketones Urine Blood Urine Nitrite Ur Leukocyte Esterase Urine RBC Urine WBC Ur Squamous Epith Cells Urine Bacteria Urine Test NEGATIVE Urine Opiates Screen Urine Fentanyl Screen Ur Barbiturates Screen Ur Phencyclidine Scrn Ur Amphetamines Screen U Benzodiazepines Scrn Urine Cocaine Screen U Marijuana (THC) Screen Ethyl Alcohol Acetone, Qual Moderate H COVID-19 (PERRI) COVID-19 [employer] 09/13/21 09/13/21 09/13/21 15:19 15:19 15:35 WBC RBC Hgb Hct MCV MCH MCHC RDW Plt Count MPV Immature Gran % (Auto) Neut % (Auto) Lymph % (Auto) [place] % (Auto) Eos % (Auto) Baso % (Auto) Lymph # (Auto) [place] # (Auto) Eos # (Auto) Baso # (Auto) Abs Immat Gran (auto) Absolute Neuts (auto) Absolute Nucleated RBC Nucleated RBC % (auto) Smear Tech's Comments Sodium Potassium Chloride Carbon Dioxide Anion Gap BUN Creatinine Estim Creat Clear Calc Estimated GFR POC Glucose Random Glucose Lactic Acid Calcium Phosphorus Magnesium Total Bilirubin AST ALT Alkaline Phosphatase Total Protein Albumin Lipase TSH Urine Color YELLOW Urine Appearance CLEAR Urine pH 5.5 Ur Specific [place] 1.010 Urine Protein NEG Urine Glucose (UA) >=1000 H Urine Ketones >=80 Urine Blood TRACE Urine Nitrite NEG Ur Leukocyte Esterase NEG Urine RBC 1-4 Urine WBC 5-9 H Ur Squamous Epith Cells TRACE Urine Bacteria TRACE Urine Test Urine Opiates Screen Not Detected Urine Fentanyl Screen Not Detected Ur Barbiturates Screen Not Detected Ur Phencyclidine Scrn Not Detected Ur Amphetamines Screen Not Detected U Benzodiazepines Scrn Not Detected Urine Cocaine Screen Not Detected U Marijuana (THC) Screen POSITIVE H Ethyl Alcohol Acetone, Qual COVID-19 (PERRI) Negative COVID-19 Clin Com See Note 09/13/21 09/13/21 09/13/21 17:38 18:51 19:48 WBC RBC Hgb Hct MCV MCH MCHC RDW Plt Count MPV Immature Gran % (Auto) Neut % (Auto) Lymph % (Auto) [place] % (Auto) Eos % (Auto) Baso % (Auto) Lymph # (Auto) [place] # (Auto) Eos # (Auto) Baso # (Auto) Abs Immat Gran (auto) Absolute Neuts (auto) Absolute Nucleated RBC Nucleated RBC % (auto) Smear Tech's Comments Sodium 140 Potassium 5.3 H Chloride 111 H Carbon Dioxide 9 L* Anion Gap 25 H BUN 32 H Creatinine 1.74 H Estim Creat Clear Calc 42.6 Estimated GFR 31 POC Glucose > 600 H* 588 H* Random Glucose 562 H* D Lactic Acid Calcium 8.7 D Phosphorus Magnesium Total Bilirubin AST ALT Alkaline Phosphatase Total Protein Albumin Lipase TSH Urine Color Urine Appearance Urine pH Ur Specific [place] Urine Protein Urine Glucose (UA) Urine Ketones Urine Blood Urine Nitrite Ur Leukocyte Esterase Urine RBC Urine WBC Ur Squamous Epith Cells Urine Bacteria Urine Test Urine Opiates Screen Urine Fentanyl Screen Ur Barbiturates Screen Ur Phencyclidine Scrn Ur Amphetamines Screen U Benzodiazepines Scrn Urine Cocaine Screen U Marijuana (THC) Screen Ethyl Alcohol Acetone, Qual COVID-19 (PERRI) COVID-19 Clin Com 09/13/21 09/13/21 09/13/21 19:52 20:53 22:02 WBC RBC Hgb Hct MCV MCH MCHC RDW Plt Count MPV Immature Gran % (Auto) Neut % (Auto) Lymph % (Auto) [place] % (Auto) Eos % (Auto) Baso % (Auto) Lymph # (Auto) [place] # (Auto) Eos # (Auto) Baso # (Auto) Abs Immat Gran (auto) Absolute Neuts (auto) Absolute Nucleated RBC Nucleated RBC % (auto) Smear Tech's Comments Sodium Potassium Chloride Carbon Dioxide Anion Gap BUN Creatinine Estim Creat Clear Calc Estimated GFR POC Glucose 475 H* 383 H* 327 H Random Glucose Lactic Acid Calcium Phosphorus Magnesium Total Bilirubin AST ALT Alkaline Phosphatase Total Protein Albumin Lipase TSH Urine Color Urine Appearance Urine pH Ur Specific [place] Urine Protein Urine Glucose (UA) Urine Ketones Urine Blood Urine Nitrite Ur Leukocyte Esterase Urine RBC Urine WBC Ur Squamous Epith Cells Urine Bacteria Urine Test Urine Opiates Screen Urine Fentanyl Screen Ur Barbiturates Screen Ur Phencyclidine Scrn Ur Amphetamines Screen U Benzodiazepines Scrn Urine Cocaine Screen U Marijuana (THC) Screen Ethyl Alcohol Acetone, Qual COVID-19 (PERRI) COVID-19 [employer] 09/13/21 09/14/21 09/14/21 22:59 00:57 01:55 WBC RBC Hgb Hct MCV MCH MCHC RDW Plt Count MPV Immature Gran % (Auto) Neut % (Auto) Lymph % (Auto) [place] % (Auto) Eos % (Auto) Baso % (Auto) Lymph # (Auto) [place] # (Auto) Eos # (Auto) Baso # (Auto) Abs Immat Gran (auto) Absolute Neuts (auto) Absolute Nucleated RBC Nucleated RBC % (auto) Smear Tech's Comments Sodium Potassium Chloride Carbon Dioxide Anion Gap BUN Creatinine Estim Creat Clear Calc Estimated GFR POC Glucose 296 H 200 H 209 H Random Glucose Lactic Acid Calcium Phosphorus Magnesium Total Bilirubin AST ALT Alkaline Phosphatase Total Protein Albumin Lipase TSH Urine Color Urine Appearance Urine pH Ur Specific [place] Urine Protein Urine Glucose (UA) Urine Ketones Urine Blood Urine Nitrite Ur Leukocyte Esterase Urine RBC Urine WBC Ur Squamous Epith Cells Urine Bacteria Urine Test Urine Opiates Screen Urine Fentanyl Screen Ur Barbiturates Screen Ur Phencyclidine Scrn Ur Amphetamines Screen U Benzodiazepines Scrn Urine Cocaine Screen U Marijuana (THC) Screen Ethyl Alcohol Acetone, Qual COVID-19 (PERRI) COVID-19 [employer] 09/14/21 09/14/21 09/14/21 03:53 05:07 05:35 WBC 29.6 H RBC 3.67 L Hgb 9.9 L Hct 30.5 L MCV 83.1 D MCH 27.0 MCHC 32.5 RDW 14.9 Plt Count 544 H MPV 9.0 L Immature Gran % (Auto) 0.9 H Neut % (Auto) 81.7 H Lymph % (Auto) 10.4 L [place] % (Auto) 6.8 Eos % (Auto) 0.0 Baso % (Auto) 0.2 Lymph # (Auto) 3.1 [place] # (Auto) 2.0 H Eos # (Auto) 0.0 Baso # (Auto) 0.1 Abs Immat Gran (auto) 0.27 H Absolute Neuts (auto) 24.2 H Absolute Nucleated RBC 0.000 Nucleated RBC % (auto) 0.0 Smear Tech's Comments VERIFIED Sodium Potassium Chloride Carbon Dioxide Anion Gap BUN Creatinine Estim Creat Clear Calc Estimated GFR POC Glucose 172 H 141 H Random Glucose Lactic Acid Calcium Phosphorus Magnesium Total Bilirubin AST ALT Alkaline Phosphatase Total Protein Albumin Lipase TSH Urine Color Urine Appearance Urine pH Ur Specific [place] Urine Protein Urine Glucose (UA) Urine Ketones Urine Blood Urine Nitrite Ur Leukocyte Esterase Urine RBC Urine WBC Ur Squamous Epith Cells Urine Bacteria Urine Test Urine Opiates Screen Urine Fentanyl Screen Ur Barbiturates Screen Ur Phencyclidine Scrn Ur Amphetamines Screen U Benzodiazepines Scrn Urine Cocaine Screen U Marijuana (THC) Screen Ethyl Alcohol Acetone, Qual COVID-19 (PERRI) COVID-19 Clin Com 09/14/21 09/14/21 09/14/21 05:35 06:03 07:06 WBC RBC Hgb Hct MCV MCH MCHC RDW Plt Count MPV Immature Gran % (Auto) Neut % (Auto) Lymph % (Auto) [place] % (Auto) Eos % (Auto) Baso % (Auto) Lymph # (Auto) [place] # (Auto) Eos # (Auto) Baso # (Auto) Abs Immat Gran (auto) Absolute Neuts (auto) Absolute Nucleated RBC Nucleated RBC % (auto) Smear Tech's Comments Sodium 141 Potassium 3.6 D Chloride 113 H Carbon Dioxide 18 L Anion Gap 14 BUN 21 H Creatinine 1.20 Estim Creat Clear Calc 61.8 Estimated GFR 48 POC Glucose 154 H 187 H Random Glucose 139 H D Lactic Acid Calcium 9.0 Phosphorus 1.4 L Magnesium 1.9 Total Bilirubin AST ALT Alkaline Phosphatase Total Protein Albumin 3.6 Lipase TSH Urine Color Urine Appearance Urine pH Ur Specific [place] Urine Protein Urine Glucose (UA) Urine Ketones Urine Blood Urine Nitrite Ur Leukocyte Esterase Urine RBC Urine WBC Ur Squamous Epith Cells Urine Bacteria Urine Test Urine Opiates Screen Urine Fentanyl Screen Ur Barbiturates Screen Ur Phencyclidine Scrn Ur Amphetamines Screen U Benzodiazepines Scrn Urine Cocaine Screen U Marijuana (THC) Screen Ethyl Alcohol Acetone, Qual COVID-19 (PERRI) COVID-19 [employer] 09/14/21 09/14/21 09/14/21 07:58 08:58 10:12 WBC RBC Hgb Hct MCV MCH MCHC RDW Plt Count MPV Immature Gran % (Auto) Neut % (Auto) Lymph % (Auto) [place] % (Auto) Eos % (Auto) Baso % (Auto) Lymph # (Auto) [place] # (Auto) Eos # (Auto) Baso # (Auto) Abs Immat Gran (auto) Absolute Neuts (auto) Absolute Nucleated RBC Nucleated RBC % (auto) Smear Tech's Comments Sodium Potassium Chloride Carbon Dioxide Anion Gap BUN Creatinine Estim Creat Clear Calc Estimated GFR POC Glucose 175 H 148 H 95 Random Glucose Lactic Acid Calcium Phosphorus Magnesium Total Bilirubin AST ALT Alkaline Phosphatase Total Protein Albumin Lipase TSH Urine Color Urine Appearance Urine pH Ur Specific [place] Urine Protein Urine Glucose (UA) Urine Ketones Urine Blood Urine Nitrite Ur Leukocyte Esterase Urine RBC Urine WBC Ur Squamous Epith Cells Urine Bacteria Urine Test Urine Opiates Screen Urine Fentanyl Screen Ur Barbiturates Screen Ur Phencyclidine Scrn Ur Amphetamines Screen U Benzodiazepines Scrn Urine Cocaine Screen U Marijuana (THC) Screen Ethyl Alcohol Acetone, Qual COVID-19 (PERRI) COVID-19 [employer] 09/14/21 09/14/21 11:00 12:00 WBC RBC Hgb Hct MCV MCH MCHC RDW Plt Count MPV Immature Gran % (Auto) Neut % (Auto) Lymph % (Auto) [place] % (Auto) Eos % (Auto) Baso % (Auto) Lymph # (Auto) [place] # (Auto) Eos # (Auto) Baso # (Auto) Abs Immat Gran (auto) Absolute Neuts (auto) Absolute Nucleated RBC Nucleated RBC % (auto) Smear Tech's Comments Sodium Potassium Chloride Carbon Dioxide Anion Gap BUN Creatinine Estim Creat Clear Calc Estimated GFR POC Glucose 134 H 271 H Random Glucose Lactic Acid Calcium Phosphorus Magnesium Total Bilirubin AST ALT Alkaline Phosphatase Total Protein Albumin Lipase TSH Urine Color Urine Appearance Urine pH Ur Specific [place] Urine Protein Urine Glucose (UA) Urine Ketones Urine Blood Urine Nitrite Ur Leukocyte Esterase Urine RBC Urine WBC Ur Squamous Epith Cells Urine Bacteria Urine Test Urine Opiates Screen Urine Fentanyl Screen Ur Barbiturates Screen Ur Phencyclidine Scrn Ur Amphetamines Screen U Benzodiazepines Scrn Urine Cocaine Screen U Marijuana (THC) Screen Ethyl Alcohol Acetone, Qual COVID-19 (PERRI) COVID-19 Clin Com Microbiology Microbiology Results: Microbiology 09/13/21 12:15 Blood - Venous Blood Culture - Final 09/13/21 12:15 Blood - Venous Blood Culture - Final Progress Note: A&P Assessment and plan (1) Acute kidney injury: Status: Acute (2) Diabetic ketoacidosis: Status: Acute (3) Bipolar 1 disorder: Status: Acute (4) Diabetic gastroparesis: Status: Acute Plan Assessment: 46-year-old lady with underlying history of bipolar disorder, diabetic with prior episodes of diabetic ketoacidosis admitted with diffuse abdominal pain, nausea, and vomiting secondary to diabetic ketoacidosis, further complicated by hyperkalemia and acute kidney injury Plan: Neuro: No acute issues. Cardiac: No acute issues. Pulmonary: No acute issues. Renal: Hyperkalemia resolved, acute kidney injury, likely secondary to intravascular volume depletion from diabetic ketoacidosis, improving. Non oliguric. Continue to monitor renal indices and urine output. Continue IV fluid resuscitation. Endo: Diabetic ketoacidosis, continue to titrate off insulin drip. GI: No acute issues. ID: No acute issues Heme/Onc: No acute issues. Psych: No acute issues. Miscellaneous: No acute issues. Prophylaxis: Heparin Diet: nothing by mouth Quality Stroke Does the patient have a stroke diagnosis?: No VTE Prior VTE?: No VTE Risk Level:: Medical - moderate - high VTE Device Contraindication: Treatment Not Indicated VTE Drug Contraindication: N/A - Med Ordered
[2021-09-14 13:05] LABS: Glucose, Whole Blood 314 mg/dL (60-115)
[2021-09-14 14:09] LABS: Glucose, Whole Blood 316 mg/dL (60-115)
[2021-09-14 15:52] LABS: Anion Gap 21 (12-20); Blood Urea Nitrogen 14 mg/dL (9-16); Calcium 8.7 mg/dL (8.4-10.2); Carbon Dioxide 17 mmol/L (22-29); Chloride 105 mmol/L (96-108); Creatinine Clr Calc Pharmacy 61.8; Estimated Glomerular Filt Rate 48; Glucose Random 328 mg/dL (60-115); Potassium 4.3 mmol/L (3.3-5.1); Sodium 139 mmol/L (135-145)
[2021-09-14 16:14] LABS: Glucose, Whole Blood 268 mg/dL (60-115)
[2021-09-14 16:14] LABS: Glucose, Whole Blood 295 mg/dL (60-115)
[2021-09-14] MEDS: Insulin Regular/NS 100 UNIT/100 ML PLAST..BAG 10.12 UNIT IVCONT (17:15)
[2021-09-14 18:02] LABS: Glucose, Whole Blood 191 mg/dL (60-115)
[2021-09-14 19:08] LABS: Glucose, Whole Blood 143 mg/dL (60-115)
[2021-09-14 20:10] LABS: Glucose, Whole Blood 78 mg/dL (60-115)
[2021-09-14 21:04] LABS: Glucose, Whole Blood 99 mg/dL (60-115)
[2021-09-14 22:00] LABS: Glucose, Whole Blood 156 mg/dL (60-115)
[2021-09-14 23:10] LABS: Glucose, Whole Blood 176 mg/dL (60-115)
[2021-09-15] VITALS (17 sets, daily range): BP systolic 98–147; BP diastolic 52–89; PULSE 81–111; RESP 13–24; TEMP 36.4–37.2; O2SAT 93–97; BMI 28.6
[2021-09-15] MEDS: Dextrose 5 % and Lactated Ring 1,000 ML 250 ML IVCONT ×2 (00:45→05:05)
[2021-09-15 00:53] LABS: Glucose, Whole Blood 163 mg/dL (60-115)
[2021-09-15 02:44] LABS: Glucose, Whole Blood 188 mg/dL (60-115)
[2021-09-15] MEDS: Heparin Sodium,Porcine 5,000 UNIT/ML VIAL 5000 UNIT SUBCUT ×3 (02:45→18:30)
[2021-09-15] MEDS: ondansetron HCL 4 MG/2 ML VIAL IVPUSH ×3 (02:49→20:49)
[2021-09-15 05:09] LABS: Glucose, Whole Blood 259 mg/dL (60-115)
[2021-09-15 05:30] LABS: MANUAL DIFF FLAG NO
[2021-09-15 05:35] LABS: Basophils Absolute Auto 0.1 X10*3/uL (0.0-0.2); Basophils Percent Auto 0.3 % (0-2); Eosinophils Percent Auto 0.1 % (0-4); Hematocrit 31.9 % (37.0-47.0); Hemoglobin 10.4 g/dl (12.0-16.0); Imm Gran Abs Auto 0.06 X10*3/uL (0.00-0.03); Imm Gran Pct Auto 0.3 % (0.0-0.4); Lymphocytes Absolute Auto 3.7 X10*3/uL (1.2-4.9); Lymphocytes Percent Auto 20.6 % (20-40); Mean Corpuscular HGB Conc 32.6 g/dl (31.0-35.0); Mean Corpuscular Hemoglobin 26.7 pg (27.0-33.0); Mean Platelet Volume 8.9 fL (9.4-12.3); Monocytes Absolute Auto 0.7 X10*3/uL (0.1-1.2); Neutrophils Absolute Auto 13.6 x10*3/uL (2.0-8.3); Neutrophils Percent Auto 74.7 % (45-73); Platelet Count 469 X10*3/uL (160-400); Red Blood Count 3.89 X10*6/uL (4.20-5.50); Red Cell Distribution Width 15.3 % (11.0-16.0); White Blood Count 18.1 X10*3/uL (4.8-10.8)
[2021-09-15 05:54] LABS: Glucose, Whole Blood 260 mg/dL (60-115)
[2021-09-15 06:07] LABS: Anion Gap 13 (12-20); Blood Urea Nitrogen 8 mg/dL (9-16); Calcium 9.1 mg/dL (8.4-10.2); Carbon Dioxide 26 mmol/L (22-29); Chloride 103 mmol/L (96-108); Creatinine Clr Calc Pharmacy 77.1; Estimated Glomerular Filt Rate > 60; Glucose Random 259 mg/dL (60-115); Magnesium 1.7 mg/dL (1.6-2.6); Phosphorus 2.4 mg/dL (2.7-4.5); Potassium 3.9 mmol/L (3.3-5.1); Sodium 138 mmol/L (135-145)
[2021-09-15] MEDS: Magnesium Sulfate/D5W 1 GM/100 ML PIGGYBACK IV (07:53)
[2021-09-15] MEDS: Potassium Phosphate/NS 15 MMOL/250 ML PLAST..BAG 62.5 MMOL IV (07:53)
[2021-09-15 08:26] LABS: Glucose, Whole Blood 237 mg/dL (60-115)
[2021-09-15] MEDS: Insulin Glargine,Hum.rec.anlog 100 UNIT/ML 10 ML VIAL 20 UNIT SUBCUT (08:33)
[2021-09-15 11:33] LABS: Glucose, Whole Blood 148 mg/dL (60-115)
[2021-09-15] MEDS: lamoTRIgine 100 MG TABLET 200 MG PO ×2 (11:54→20:48)
--- NOTE | 2021-09-15 12:21 | P.PNCC_ITS ---
Subjective Subjective Date of Service: 09/15/21 Interval History: 46-year-old lady with underlying history of diabetes mellitus, bipolar, anxiety, gastroparesis, NSTEMI, pancreatitis admitted on 09/13/2021 with 1 day history of abdominal pain nausea and vomiting. Patient states that she has been out feeling well for several days and not sure if she to the right amount of insulin. On ER evaluation patient was noted to be hyperkalemic with diabetic ketoacidosis and acute renal failure. Her CT abdomen results were discussed with surgical team and deemed not to require an acute intervention. Patient has been started on insulin drip and IV fluids and admitted to the intensive care un it. No events overnight. Titrated off insulin drip. Critical Care Time (minutes): 0 Physical Exam Vital Signs: Vital Signs: Last Vital Signs Temp 97.5 F 09/15/21 12:00 Pulse 92 09/15/21 12:00 Resp 13 09/15/21 12:00 BP 144/89 H 09/15/21 12:00 Pulse Ox 96 09/15/21 12:00 BMI result Body Mass Index 28.6 Const: General: no acute distress, alert and awake Eyes: Sclerae: sclerae normal EOM: EOMs intact bilaterally Neck: Neck: Yes no lymphadenopathy, Yes trachea midline and Yes supple Resp: Effort & Inspection: normal respiratory effort and no respiratory distress Auscultation: clear to auscultation bilaterally Cardio: Rate: regular rate Rhythm: regular rhythm Heart sounds: no gallops, no murmurs and no rubs GI: Palpation (GI): Soft to palpation and Other GI palpation findings present ( Nontender) Auscultation: normal bowel sounds Extrem: General: Yes no pedal edema, No clubbing and No cyanosis Objective Data Labs CBC & Chem 7: 09/15/21 05:23 09/15/21 05:23 Labs: Laboratory Results - last 24 hr 09/14/21 09/14/21 09/14/21 13:03 14:05 15:20 WBC RBC Hgb Hct MCV MCH MCHC RDW Plt Count MPV Immature Gran % (Auto) Neut % (Auto) Lymph % (Auto) [place] % (Auto) Eos % (Auto) Baso % (Auto) Lymph # (Auto) [place] # (Auto) Eos # (Auto) Baso # (Auto) Abs Immat Gran (auto) Absolute Neuts (auto) Absolute Nucleated RBC Nucleated RBC % (auto) Sodium Potassium Chloride Carbon Dioxide Anion Gap BUN Creatinine Estim Creat Clear Calc Estimated GFR POC Glucose 314 H 316 H 295 H Random Glucose Calcium Phosphorus Magnesium 09/14/21 09/14/21 09/14/21 15:27 16:10 17:58 WBC RBC Hgb Hct MCV MCH MCHC RDW Plt Count MPV Immature Gran % (Auto) Neut % (Auto) Lymph % (Auto) [place] % (Auto) Eos % (Auto) Baso % (Auto) Lymph # (Auto) [place] # (Auto) Eos # (Auto) Baso # (Auto) Abs Immat Gran (auto) Absolute Neuts (auto) Absolute Nucleated RBC Nucleated RBC % (auto) Sodium 139 Potassium 4.3 Chloride 105 Carbon Dioxide 17 L Anion Gap 21 H BUN 14 Creatinine 1.21 Estim Creat Clear Calc 61.8 Estimated GFR 48 POC Glucose 268 H 191 H Random Glucose 328 H Calcium 8.7 Phosphorus Magnesium 09/14/21 09/14/21 09/14/21 19:05 20:05 21:01 WBC RBC Hgb Hct MCV MCH MCHC RDW Plt Count MPV Immature Gran % (Auto) Neut % (Auto) Lymph % (Auto) [place] % (Auto) Eos % (Auto) Baso % (Auto) Lymph # (Auto) [place] # (Auto) Eos # (Auto) Baso # (Auto) Abs Immat Gran (auto) Absolute Neuts (auto) Absolute Nucleated RBC Nucleated RBC % (auto) Sodium Potassium Chloride Carbon Dioxide Anion Gap BUN Creatinine Estim Creat Clear Calc Estimated GFR POC Glucose 143 H 78 99 Random Glucose Calcium Phosphorus Magnesium 09/14/21 09/14/21 09/15/21 21:56 23:06 00:49 WBC RBC Hgb Hct MCV MCH MCHC RDW Plt Count MPV Immature Gran % (Auto) Neut % (Auto) Lymph % (Auto) [place] % (Auto) Eos % (Auto) Baso % (Auto) Lymph # (Auto) [place] # (Auto) Eos # (Auto) Baso # (Auto) Abs Immat Gran (auto) Absolute Neuts (auto) Absolute Nucleated RBC Nucleated RBC % (auto) Sodium Potassium Chloride Carbon Dioxide Anion Gap BUN Creatinine Estim Creat Clear Calc Estimated GFR POC Glucose 156 H 176 H 163 H Random Glucose Calcium Phosphorus Magnesium 09/15/21 09/15/2122 02:41 05:03 05:23 WBC 18.1 H RBC 3.89 L Hgb 10.4 L Hct 31.9 L MCV 82.0 MCH 26.7 L MCHC 32.6 RDW 15.3 Plt Count 469 H MPV 8.9 L Immature Gran % (Auto) 0.3 Neut % (Auto) 74.7 H Lymph % (Auto) 20.6 [place] % (Auto) 4.0 Eos % (Auto) 0.1 Baso % (Auto) 0.3 Lymph # (Auto) 3.7 [place] # (Auto) 0.7 Eos # (Auto) 0.0 Baso # (Auto) 0.1 Abs Immat Gran (auto) 0.06 H Absolute Neuts (auto) 13.6 H Absolute Nucleated RBC 0.000 Nucleated RBC % (auto) 0.0 Sodium Potassium Chloride Carbon Dioxide Anion Gap BUN Creatinine Estim Creat Clear Calc Estimated GFR POC Glucose 188 H 259 H Random Glucose Calcium Phosphorus Magnesium 09/15/21 09/15/21 09/15/21 05:23 05:50 07:56 WBC RBC Hgb Hct MCV MCH MCHC RDW Plt Count MPV Immature Gran % (Auto) Neut % (Auto) Lymph % (Auto) [place] % (Auto) Eos % (Auto) Baso % (Auto) Lymph # (Auto) [place] # (Auto) Eos # (Auto) Baso # (Auto) Abs Immat Gran (auto) Absolute Neuts (auto) Absolute Nucleated RBC Nucleated RBC % (auto) Sodium 138 Potassium 3.9 Chloride 103 Carbon Dioxide 26 Anion Gap 13 BUN 8 L Creatinine 0.97 Estim Creat Clear Calc 77.1 Estimated GFR > 60 POC Glucose 260 H 237 H Random Glucose 259 H Calcium 9.1 Phosphorus 2.4 L Magnesium 1.7 09/15/21 11:30 WBC RBC Hgb Hct MCV MCH MCHC RDW Plt Count MPV Immature Gran % (Auto) Neut % (Auto) Lymph % (Auto) [place] % (Auto) Eos % (Auto) Baso % (Auto) Lymph # (Auto) [place] # (Auto) Eos # (Auto) Baso # (Auto) Abs Immat Gran (auto) Absolute Neuts (auto) Absolute Nucleated RBC Nucleated RBC % (auto) Sodium Potassium Chloride Carbon Dioxide Anion Gap BUN Creatinine Estim Creat Clear Calc Estimated GFR POC Glucose 148 H Random Glucose Calcium Phosphorus Magnesium Microbiology Microbiology Results: Microbiology 09/13/21 Unknown Urine clean catch - Urine [place] Urine Culture - Final Escherichia coli 09/13/21 12:15 Blood - Venous Blood Culture - Final 09/13/21 12:15 Blood - Venous Blood Culture - Final Progress Note: A&P Assessment and plan (1) Acute kidney injury: Status: Acute (2) Hyperkalemia: Status: Acute (3) Diabetic ketoacidosis: Status: Acute (4) Diabetic gastroparesis: Status: Acute (5) Bipolar 1 disorder: Status: Acute Plan Assessment: 46-year-old lady with underlying history of bipolar disorder, diabetic with prior episodes of diabetic ketoacidosis admitted with diffuse abdominal pain, nausea, and vomiting secondary to diabetic ketoacidosis, further complicated by hyperkalemia and acute kidney injury Plan: Neuro: No acute issues. Cardiac: No acute issues. Pulmonary: No acute issues. Renal: Hyperkalemia and acute kidney injury resolved. Non oliguric. Continue to monitor renal indices and urine output. Continue IV fluid resuscitation. Endo: Diabetic ketoacidosis, titrated off insulin drip, Switched to subcutaneous insulin. GI: No acute issues. ID: No acute issues Heme/Onc: No acute issues. Psych: No acute issues. Miscellaneous: No acute issues. Prophylaxis: Heparin Diet: Diabetic Quality Stroke Does the patient have a stroke diagnosis?: No VTE Prior VTE?: No VTE Risk Level:: Medical - moderate - high VTE Device Contraindication: Treatment Not Indicated VTE Drug Contraindication: N/A - Med Ordered
[2021-09-15 12:54] LABS: Anion Gap 14 (12-20); Blood Urea Nitrogen 7 mg/dL (9-16); Carbon Dioxide 27 mmol/L (22-29); Chloride 103 mmol/L (96-108); Creatinine Clr Calc Pharmacy 90.7; Estimated Glomerular Filt Rate > 60; Glucose Random 134 mg/dL (60-115); Potassium 3.6 mmol/L (3.3-5.1); Sodium 140 mmol/L (135-145)
[2021-09-15 16:38] LABS: Glucose, Whole Blood 109 mg/dL (60-115)
[2021-09-15 19:58] LABS: Glucose, Whole Blood 178 mg/dL (60-115)
[2021-09-15] MEDS: Insulin Lispro 100 UNIT/ML 3 ML VIAL SUBCUT (20:48)
[2021-09-15] MEDS: LORazepam 1 MG TABLET PO (21:19)
[2021-09-16] VITALS (7 sets, daily range): BP systolic 116–171; BP diastolic 67–96; PULSE 100–125; RESP 16–18; TEMP 36.1–37.5; O2SAT 96–100
[2021-09-16] MEDS: Heparin Sodium,Porcine 5,000 UNIT/ML VIAL 5000 UNIT SUBCUT (03:15)
[2021-09-16 03:25] LABS: Glucose, Whole Blood 324 mg/dL (60-115)
[2021-09-16 05:31] LABS: MANUAL DIFF FLAG NO
[2021-09-16 05:47] LABS: Basophils Absolute Auto 0.1 X10*3/uL (0.0-0.2); Basophils Percent Auto 0.6 % (0-2); Eosinophils Absolute Auto 0.1 X10*3/uL (0.0-0.4); Eosinophils Percent Auto 0.9 % (0-4); Hematocrit 34.4 % (37.0-47.0); Hemoglobin 10.8 g/dl (12.0-16.0); Imm Gran Abs Auto 0.03 X10*3/uL (0.00-0.03); Imm Gran Pct Auto 0.3 % (0.0-0.4); Lymphocytes Percent Auto 30.9 % (20-40); Mean Corpuscular HGB Conc 31.4 g/dl (31.0-35.0); Mean Corpuscular Hemoglobin 26.3 pg (27.0-33.0); Mean Corpuscular Volume 83.7 fL (80.0-98.0); Mean Platelet Volume 9.1 fL (9.4-12.3); Monocytes Absolute Auto 0.7 X10*3/uL (0.1-1.2); Monocytes Percent Auto 6.8 % (2-11); Neutrophils Absolute Auto 5.8 x10*3/uL (2.0-8.3); Neutrophils Percent Auto 60.5 % (45-73); Platelet Count 478 X10*3/uL (160-400); Red Blood Count 4.11 X10*6/uL (4.20-5.50); Red Cell Distribution Width 14.8 % (11.0-16.0); White Blood Count 9.6 X10*3/uL (4.8-10.8)
[2021-09-16 06:02] LABS: Anion Gap 14 (12-20); Blood Urea Nitrogen 11 mg/dL (9-16); Carbon Dioxide 29 mmol/L (22-29); Chloride 99 mmol/L (96-108); Creatinine Clr Calc Pharmacy 84.5; Estimated Glomerular Filt Rate > 60; Glucose Random 349 mg/dL (60-115); Potassium 4.7 mmol/L (3.3-5.1); Sodium 137 mmol/L (135-145)
[2021-09-16 07:24] LABS: Glucose, Whole Blood 350 mg/dL (60-115)
[2021-09-16] MEDS: Insulin Lispro 100 UNIT/ML 3 ML VIAL SUBCUT ×3 (07:58→20:44)
[2021-09-16] MEDS: lamoTRIgine 100 MG TABLET 200 MG PO ×2 (07:59→20:44)
[2021-09-16] MEDS: Insulin Glargine,Hum.rec.anlog 100 UNIT/ML 10 ML VIAL 20 UNIT SUBCUT (07:59)
[2021-09-16] MEDS: ondansetron HCL 4 MG/2 ML VIAL IVPUSH ×2 (08:00→16:33)
--- NOTE | 2021-09-16 09:27 | HO.PM.IMPN ---
Subjective Subjective Date of Service: 09/16/21 Interval History: cc: abd pain interval history: improved, but still with abd pain, decreased appetite Cardiovascular Cardiovascular: Reports no additional cardiovascular complaints Respiratory Respiratory: Reports no additional respiratory complaints Physical Exam Vital Signs: Vital Signs: Last Vital Signs Temp 98.5 F 09/16/21 07:42 Pulse 108 H 09/16/21 07:42 Resp 16 09/16/21 07:42 BP 126/67 09/16/21 07:42 Pulse Ox 97 09/16/21 07:42 BMI result Body Mass Index 28.6 General: AO X 3, diaphoretic, anxious Resp: CTA bilateral, no accessory muscles used CVS: S1,S2,RRR GI: soft, tender, non distended Neuro: motor grossly intact, alert Psych: appropriate affect, appropriate insight Objective Data Active Medications Heparin Sodium (Porcine) (Heparin Sodium,Porcine 5,000 Unit/Ml Vial) 5,000 unit SUBCUT Q8H [facility] Last Admin: 09/16/21 03:15 Dose: 5,000 unit Documented by: NATALIIA Lactated Ringer's (Lr) 1,000 mls @ 100 mls/hr IVCONT .Q10H [facility] Ibuprofen (Ibuprofen 400 Mg Tablet) 400 mg PO Q8H [facility] Insulin Glargine (Insulin Glargine,Hum.Rec.Anlog 100 Unit/Ml 10 Ml Vial) 20 unit SUBCUT DAILY [facility] Last Admin: 09/16/21 07:59 Dose: 20 unit Documented by: SOLO Insulin Human Lispro (Insulin Lispro 100 Unit/Ml 3 Ml Vial) 0 unit SUBCUT QIDACHS [facility]; Protocol Last Admin: 09/16/21 07:58 Dose: 10 unit Documented by: SOLO Lamotrigine (Lamotrigine 100 Mg Tablet) 200 mg PO BID [facility] Last Admin: 09/16/21 07:59 Dose: 200 mg Documented by: SOLO Lorazepam (Lorazepam 1 Mg Tablet) 1 mg PO TID [facility] Metoprolol Tartrate (Metoprolol Tartrate 25 Mg Tablet) 25 mg PO BID [facility]; Protocol Midodrine (Midodrine Hcl 5 Mg Tablet) 5 mg PO DAILY [facility] Omeprazole (Omeprazole 20 Mg Capsule.Dr) 20 mg PO BID@0630,1630 [facility] Ondansetron HCl (Ondansetron Hcl 4 Mg/2 Ml Vial) 4 mg IVPUSH Q8H PRN PRN Reason: Nausea Last Admin: 09/16/21 08:00 Dose: 4 mg Documented by: SOLO Risperidone (Risperidone 2 Mg Tablet) 2 mg PO BID [facility] Zolpidem Tartrate (Zolpidem Tartrate 5 Mg Tablet) 5 mg PO BEDTIME [facility] Labs CBC & Chem 7: 09/16/21 05:14 09/16/21 05:14 Labs: Laboratory Results - last 24 hr 09/15/21 09/15/21 09/15/21 11:30 12:10 16:30 MCV MCH MCHC RDW Plt Count MPV Immature Gran % (Auto) Neut % (Auto) Lymph % (Auto) [place] % (Auto) Eos % (Auto) Baso % (Auto) Lymph # (Auto) [place] # (Auto) Eos # (Auto) Baso # (Auto) Abs Immat Gran (auto) Absolute Neuts (auto) Absolute Nucleated RBC Nucleated RBC % (auto) Anion Gap 14 Estim Creat Clear Calc 90.7 Estimated GFR > 60 POC Glucose 148 H 109 Random Glucose 134 H Calcium 9.0 09/15/21 09/16/21 09/16/21 19:36 03:17 05:14 MCV 83.7 MCH 26.3 L MCHC 31.4 RDW 14.8 Plt Count 478 H MPV 9.1 L Immature Gran % (Auto) 0.3 Neut % (Auto) 60.5 Lymph % (Auto) 30.9 [place] % (Auto) 6.8 Eos % (Auto) 0.9 Baso % (Auto) 0.6 Lymph # (Auto) 3.0 [place] # (Auto) 0.7 Eos # (Auto) 0.1 Baso # (Auto) 0.1 Abs Immat Gran (auto) 0.03 Absolute Neuts (auto) 5.8 Absolute Nucleated RBC 0.000 Nucleated RBC % (auto) 0.0 Anion Gap Estim Creat Clear Calc Estimated GFR POC Glucose 178 H 324 H Random Glucose Calcium 09/16/21 09/16/21 05:14 07:19 MCV MCH MCHC RDW Plt Count MPV Immature Gran % (Auto) Neut % (Auto) Lymph % (Auto) [place] % (Auto) Eos % (Auto) Baso % (Auto) Lymph # (Auto) [place] # (Auto) Eos # (Auto) Baso # (Auto) Abs Immat Gran (auto) Absolute Neuts (auto) Absolute Nucleated RBC Nucleated RBC % (auto) Anion Gap 14 Estim Creat Clear Calc 84.5 Estimated GFR > 60 POC Glucose 350 H* Random Glucose 349 H Calcium 9.0 Microbiology Microbiology Results: Microbiology 09/13/21 Unknown Urine Culture - Final Urine clean catch - Urine kang top Escherichia coli Assessment and Plan (1) Acute kidney injury: Status: Acute Plan 46F with PMH of DMI complicated by frequent DKA, gastroparesis and chronic pancreatitis, bipolar, anxiety, presented with abd pain, found to be in DKA with GEORGETTE and hyperkalemia. was treated in ICU with insulin, IV fluids, with resolution of dka, georgette, and hyperkalemia, downgraded to medical floor, continues to have abd pain, poorly controlled sugars, and poor appetite. DKA in DMI complicated by prerenal GEORGETTE and hyperkalemia DKA resolved GEORGETTE resolved hyperakalemia resolved continues to have uncontrolled hyperglycemia, abd pain, and poor appetite restart IV fluids, conitnue basal/bolus insulin, monitor closely, insulin pump on hold, monitor labs gastroparesis small frequent meals bipolar and anxiety continue lamictal, risperdal, ativan dvt prophylaxis - lovenox full code reason for continued hospitalization: glucose still not adequately controlled, at risk to go back in DKA Quality Stroke Does the patient have a stroke diagnosis?: No VTE Prior VTE?: No VTE Risk Level:: Medical - moderate - high VTE Device Contraindication: Treatment Not Indicated VTE Drug Contraindication: N/A - Med Ordered
[2021-09-16 09:58] LABS: Glucose, Whole Blood 316 mg/dL (60-115)
[2021-09-16] MEDS: Omeprazole 20 MG CAPSULE.DR PO (10:29)
[2021-09-16] MEDS: LORazepam 1 MG TABLET PO ×2 (10:30→20:45)
[2021-09-16] MEDS: Ibuprofen 400 MG TABLET PO (10:30)
[2021-09-16] MEDS: Midodrine HCl 5 MG TABLET PO (10:30)
[2021-09-16] MEDS: Metoprolol Tartrate 25 MG TABLET PO ×2 (10:30→20:44)
[2021-09-16] MEDS: Lactated Ringers 1,000 ML 100 ML IVCONT ×2 (10:31→20:44)
[2021-09-16] MEDS: risperiDONE 2 MG TABLET PO ×2 (10:31→20:45)
[2021-09-16] MEDS: Insulin Lispro 100 UNIT/ML 3 ML VIAL 10 UNIT SUBCUT (10:34)
[2021-09-16 11:30] LABS: Glucose, Whole Blood 220 mg/dL (60-115)
[2021-09-16] MEDS: cefTRIAXone sodium 1 GM in 0.9 % Sodium Chloride 50 ML IV (14:15)
[2021-09-16 16:31] LABS: Glucose, Whole Blood 79 mg/dL (60-115)
[2021-09-16 20:27] LABS: Glucose, Whole Blood 306 mg/dL (60-115)
[2021-09-16] MEDS: Zolpidem Tartrate 5 MG TABLET PO (20:45)
[2021-09-17] VITALS (9 sets, daily range): BP systolic 93–163; BP diastolic 52–84; PULSE 86–123; RESP 16–20; TEMP 36.3–37; O2SAT 95–98
[2021-09-17] MEDS: ondansetron HCL 4 MG/2 ML VIAL IVPUSH ×2 (06:07→17:22)
[2021-09-17] MEDS: Omeprazole 20 MG CAPSULE.DR PO ×2 (06:07→17:22)
[2021-09-17 06:24] LABS: Hemoglobin 12.6 g/dl (12.0-16.0); Mean Corpuscular HGB Conc 32.3 g/dl (31.0-35.0); Mean Corpuscular Hemoglobin 26.6 pg (27.0-33.0); Mean Corpuscular Volume 82.3 fL (80.0-98.0); Mean Platelet Volume 8.9 fL (9.4-12.3); Platelet Count 527 X10*3/uL (160-400); Red Blood Count 4.74 X10*6/uL (4.20-5.50); Red Cell Distribution Width 14.3 % (11.0-16.0); White Blood Count 12.3 X10*3/uL (4.8-10.8)
[2021-09-17 07:17] LABS: Anion Gap 20 (12-20); Blood Urea Nitrogen 16 mg/dL (9-16); Calcium 9.7 mg/dL (8.4-10.2); Carbon Dioxide 24 mmol/L (22-29); Chloride 95 mmol/L (96-108); Creatinine Clr Calc Pharmacy 60.4; Estimated Glomerular Filt Rate 47; Glucose Fasting 374 mg/dL (60-99); Potassium 4.2 mmol/L (3.3-5.1); Sodium 135 mmol/L (135-145)
[2021-09-17 07:37] LABS: Glucose, Whole Blood 385 mg/dL (60-115)
--- NOTE | 2021-09-17 08:09 | P.PNIM_ITS ---
Subjective Subjective Date of Service: 09/17/21 Interval History: cc: abd pain interval history:still with abd pain - worse today, decreased appetite Cardiovascular Cardiovascular: Reports no additional cardiovascular complaints Respiratory Respiratory: Reports no additional respiratory complaints Physical Exam Vital Signs: Vital Signs: Last Vital Signs Temp 98.6 F 09/17/21 07:18 Pulse 123 H 09/17/21 07:18 Resp 18 09/17/21 07:18 BP 163/84 H 09/17/21 07:18 Pulse Ox 98 09/17/21 07:18 BMI result Body Mass Index 28.6 General: AO X 3, in discomfort, holding abdomen Resp: CTA bilateral, no accessory muscles used CVS: S1,S2,RRR GI: soft, tender, non distended Neuro: motor grossly intact, alert Psych: appropriate affect, appropriate insight Objective Data Active Medications Enoxaparin Sodium (Enoxaparin Sodium 40 Mg/0.4 Ml Syringe) 40 mg SUBCUT DAILY [facility] Hydromorphone HCl (Hydromorphone Hcl 0.5 Mg/0.5 Ml Syringe) 0.5 mg IVPUSH Q4H PRN; Protocol PRN Reason: moderate pain Lactated Ringer's (Lr) 1,000 mls @ 100 mls/hr IVCONT .Q10H [facility] Last Admin: 09/16/21 20:44 Dose: 100 mls/hr Documented by: BARBRA Ceftriaxone Sodium 1 gm/ (Sodium Chloride) 50 mls @ 100 mls/hr IV Q24H [facility] Last Infusion: 09/16/21 14:48 Dose: 0 mls/hr Documented by: SOLO Ibuprofen (Ibuprofen 400 Mg Tablet) 400 mg PO Q8H [facility] Last Admin: 09/17/21 02:59 Dose: Not Given Documented by: BARBRA Non-Admin Reason: Patient Asleep Insulin Glargine (Insulin Glargine,Hum.Rec.Anlog 100 Unit/Ml 10 Ml Vial) 30 un it SUBCUT DAILY [facility] Insulin Human Lispro (Insulin Lispro 100 Unit/Ml 3 Ml Vial) 0 unit SUBCUT QIDACHS [facility]; Protocol Last Admin: 09/16/21 20:44 Dose: 8 unit Documented by: BARBRA Insulin Human Lispro (Insulin Lispro 100 Unit/Ml 3 Ml Vial) 5 unit SUBCUT QIDACHS [facility] Lamotrigine (Lamotrigine 100 Mg Tablet) 200 mg PO BID [facility] Last Admin: 09/16/21 20:44 Dose: 200 mg Documented by: BARBRA Lorazepam (Lorazepam 1 Mg Tablet) 1 mg PO TID [facility] Last Admin: 09/16/21 20:45 Dose: 1 mg Documented by: BARBRA Metoprolol Tartrate (Metoprolol Tartrate 25 Mg Tablet) 25 mg PO BID [facility]; Protocol Last Admin: 09/16/21 20:44 Dose: 25 mg Documented by: BARBRA Midodrine (Midodrine Hcl 5 Mg Tablet) 5 mg PO DAILY [facility] Last Admin: 09/16/21 10:30 Dose: 5 mg Documented by: SOLO Omeprazole (Omeprazole 20 Mg Capsule.Dr) 20 mg PO BID@0630,1630 [facility] Last Admin: 09/17/21 06:07 Dose: 20 mg Documented by: BARBRA Ondansetron HCl (Ondansetron Hcl 4 Mg/2 Ml Vial) 4 mg IVPUSH Q8H PRN PRN Reason: Nausea Last Admin: 09/17/21 06:07 Dose: 4 mg Documented by: BARBRA Risperidone (Risperidone 2 Mg Tablet) 2 mg PO BID [facility] Last Admin: 09/16/21 20:45 Dose: 2 mg Documented by: BARBRA Zolpidem Tartrate (Zolpidem Tartrate 5 Mg Tablet) 5 mg PO BEDTIME [facility] Last Admin: 09/16/21 20:45 Dose: 5 mg Documented by: BARBRA Labs CBC & Chem 7: 09/17/21 06:15 09/17/21 06:15 Labs: Laboratory Results - last 24 hr 09/16/21 09/16/21 09/16/21 09:53 11:12 15:21 MCV MCH MCHC RDW Plt Count MPV Absolute Nucleated RBC Nucleated RBC % (auto) Anion Gap Estim Creat Clear Calc Estimated GFR POC Glucose 316 H 220 H 79 Fasting Glucose Calcium Magnesium 09/16/21 09/17/21 09/17/21 19:16 06:15 06:15 MCV 82.3 MCH 26.6 L MCHC 32.3 RDW 14.3 Plt Count 527 H MPV 8.9 L Absolute Nucleated RBC 0.000 Nucleated RBC % (auto) 0.0 Anion Gap 20 Estim Creat Clear Calc 60.4 Estimated GFR 47 POC Glucose 306 H Fasting Glucose 374 H* Calcium 9.7 D Magnesium 2.0 09/17/21 07:24 MCV MCH MCHC RDW Plt Count MPV Absolute Nucleated RBC Nucleated RBC % (auto) Anion Gap Estim Creat Clear Calc Estimated GFR POC Glucose 385 H* Fasting Glucose Calcium Magnesium Assessment and Plan (1) Acute kidney injury: Status: Acute Plan 46F with PMH of DMI complicated by frequent DKA, gastroparesis and chronic pancreatitis, bipolar, anxiety, presented with abd pain, found to be in DKA with AIDAN and hyperkalemia. was treated in ICU with insulin, IV fluids, with resolution of dka, aidan, and hyperkalemia, downgraded to medical floor, continues to have abd pain, poorly controlled sugars, and poor appetite. DKA in DMI complicated by prerenal AIDAN and hyperkalemia DKA resolved AIDAN resolved hyperakalemia resolved continues to have uncontrolled hyperglycemia, abd pain, and poor appetite cotninue IV fluids, conitnue basal/bolus insulin - increased lantus to 30 units, added 5units lispro premeal monitor closely, insulin pump on hold, monitor labs add iv dilaudid for pain control gastroparesis small frequent meals bipolar and anxiety continue lamictal, risperdal, ativan dvt prophylaxis - lovenox full code reason for continued hospitalization: glucose still not adequately controlled, at risk to go back in DKA, severe pain requiring iv opiates Quality Stroke Does the patient have a stroke diagnosis?: No VTE Prior VTE?: No VTE Risk Level:: Medical - moderate - high VTE Device Contraindication: Treatment Not Indicated VTE Drug Contraindication: N/A - Med Ordered
[2021-09-17] MEDS: Enoxaparin Sodium 40 MG/0.4 ML SYRINGE SUBCUT (08:20)
[2021-09-17] MEDS: HYDROmorphone HCl 0.5 MG/0.5 ML SYRINGE IVPUSH ×3 (08:24→19:48)
[2021-09-17] MEDS: risperiDONE 2 MG TABLET PO ×2 (08:25→21:58)
[2021-09-17] MEDS: lamoTRIgine 100 MG TABLET 200 MG PO ×2 (08:25→21:58)
[2021-09-17] MEDS: Midodrine HCl 5 MG TABLET PO (08:26)
[2021-09-17] MEDS: Metoprolol Tartrate 25 MG TABLET PO ×2 (08:26→21:58)
[2021-09-17] MEDS: LORazepam 1 MG TABLET PO ×2 (08:26→21:58)
[2021-09-17] MEDS: Lactated Ringers 1,000 ML 100 ML IVCONT ×2 (08:36→18:36)
[2021-09-17] MEDS: Insulin Glargine,Hum.rec.anlog 100 UNIT/ML 10 ML VIAL 30 UNIT SUBCUT (08:39)
[2021-09-17] MEDS: Insulin Lispro 100 UNIT/ML 3 ML VIAL 10 UNIT SUBCUT ×2 (09:22→10:08)
[2021-09-17 09:33] LABS: Glucose, Whole Blood 382 mg/dL (60-115)
[2021-09-17 11:19] LABS: Glucose, Whole Blood 251 mg/dL (60-115)
[2021-09-17] MEDS: Insulin Lispro 100 UNIT/ML 3 ML VIAL SUBCUT ×2 (11:33→21:57)
[2021-09-17] MEDS: cefTRIAXone sodium 1 GM in 0.9 % Sodium Chloride 50 ML IV (14:00)
--- NOTE | 2021-09-17 14:02 | MHC.CM.PN ---
PATIENT STILL REQUIRING PAIN AND GLUCOSE MONITORING/MANAGEMENT. NO PLAN FOR DC TODAY
[2021-09-17 16:01] LABS: Glucose, Whole Blood 52 mg/dL (60-115)
[2021-09-17 16:01] LABS: Glucose, Whole Blood 124 mg/dL (60-115)
[2021-09-17 20:13] LABS: Glucose, Whole Blood 243 mg/dL (60-115)
[2021-09-17 21:54] LABS: Glucose, Whole Blood 232 mg/dL (60-115)
[2021-09-17] MEDS: Zolpidem Tartrate 5 MG TABLET PO (22:02)
[2021-09-18] VITALS (9 sets, daily range): BP systolic 101–150; BP diastolic 54–74; PULSE 82–100; RESP 17–20; TEMP 36–36.6; O2SAT 95–97; BMI 27.1
[2021-09-18 00:02] LABS: Glucose, Whole Blood 188 mg/dL (60-115)
[2021-09-18] MEDS: HYDROmorphone HCl 0.5 MG/0.5 ML SYRINGE IVPUSH ×5 (01:51→20:33)
[2021-09-18] MEDS: Lactated Ringers 1,000 ML 100 ML IVCONT ×3 (05:07→20:20)
[2021-09-18] MEDS: Omeprazole 20 MG CAPSULE.DR PO ×2 (05:07→16:36)
[2021-09-18 06:21] LABS: Hematocrit 30.1 % (37.0-47.0); Hemoglobin 9.4 g/dl (12.0-16.0); Mean Corpuscular HGB Conc 31.2 g/dl (31.0-35.0); Mean Corpuscular Hemoglobin 26.7 pg (27.0-33.0); Mean Corpuscular Volume 85.5 fL (80.0-98.0); Mean Platelet Volume 8.8 fL (9.4-12.3); Platelet Count 407 X10*3/uL (160-400); Red Blood Count 3.52 X10*6/uL (4.20-5.50); Red Cell Distribution Width 14.6 % (11.0-16.0); White Blood Count 9.3 X10*3/uL (4.8-10.8)
[2021-09-18 06:42] LABS: Anion Gap 13 (12-20); Blood Urea Nitrogen 14 mg/dL (9-16); Calcium 8.6 mg/dL (8.4-10.2); Carbon Dioxide 28 mmol/L (22-29); Chloride 100 mmol/L (96-108); Creatinine Clr Calc Pharmacy 86.3; Estimated Glomerular Filt Rate > 60; Glucose Fasting 133 mg/dL (60-99); Magnesium 1.9 mg/dL (1.6-2.6); Potassium 3.9 mmol/L (3.3-5.1); Sodium 137 mmol/L (135-145)
[2021-09-18 07:26] LABS: Glucose, Whole Blood 145 mg/dL (60-115)
--- NOTE | 2021-09-18 08:06 | HO.PM.IMPN ---
Subjective Subjective Date of Service: 09/18/21 Interval History: cc: abd pain interval history:still with abd pain and no appetite, though overall better Cardiovascular Cardiovascular: Reports no additional cardiovascular complaints Respiratory Respiratory: Reports no additional respiratory complaints Physical Exam Vital Signs: Vital Signs: Last Vital Signs Temp 98 F 09/18/21 07:13 Pulse 92 09/18/21 07:13 Resp 18 09/18/21 07:13 BP 120/65 09/18/21 07:13 Pulse Ox 97 09/18/21 07:13 BMI result Body Mass Index 27.1 General: AO X 3, in discomfort - slightly better than yesterday, diaphoretic Resp:? CTA bilateral, no accessory muscles used CVS: S1,S2,RRR GI: soft, tender, non distended Neuro:? motor grossly intact, alert Psych: appropriate affect, appropriate insight? Objective Data Active Medications Enoxaparin Sodium (Enoxaparin Sodium 40 Mg/0.4 Ml Syringe) 40 mg SUBCUT DAILY [facility] Last Admin: 09/17/21 08:20 Dose: 40 mg Documented by: SOLO Hydromorphone HCl (Hydromorphone Hcl 0.5 Mg/0.5 Ml Syringe) 0.5 mg IVPUSH Q4H PRN; Protocol PRN Reason: moderate pain Last Admin: 09/18/21 06:09 Dose: 0.5 mg Documented by: RAY Lactated Ringer's (Lr) 1,000 mls @ 100 mls/hr IVCONT .Q10H [facility] Last Admin: 09/18/21 05:07 Dose: 100 mls/hr Documented by: RAY Ceftriaxone Sodium 1 gm/ (Sodium Chloride) 50 mls @ 100 mls/hr IV Q24H [facility] Last Infusion: 09/17/21 15:11 Dose: 0 mls/hr Documented by: SOLO Ibuprofen (Ibuprofen 400 Mg Tablet) 400 mg PO Q8H [facility] Last Admin: 09/18/21 00:25 Dose: Not Given Documented by: RAY Non-Admin Reason: Patient Refused Insulin Glargine (Insulin Glargine,Hum.Rec.Anlog 100 Unit/Ml 10 Ml Vial) 30 unit SUBCUT DAILY [facility] Last Admin: 09/17/21 08:39 Dose: 30 unit Documented by: SOLO Insulin Human Lispro (Insulin Lispro 100 Unit/Ml 3 Ml Vial) 0 unit SUBCUT QIDACHS [facility]; Protocol Last Admin: 09/18/21 07:45 Dose: Not Given Documented by: SARA Non-Admin Reason: No Insulin Coverage Insulin Human Lispro (Insulin Lispro 100 Unit/Ml 3 Ml Vial) 5 unit SUBCUT QIDACHS [facility] Last Admin: 09/17/21 21:57 Dose: 5 unit Documented by: RAY Lamotrigine (Lamotrigine 100 Mg Tablet) 200 mg PO BID [facility] Last Admin: 09/17/21 21:58 Dose: 200 mg Documented by: RAY Lorazepam (Lorazepam 1 Mg Tablet) 1 mg PO TID [facility] Last Admin: 09/17/21 21:58 Dose: 1 mg Documented by: RAY Metoprolol Tartrate (Metoprolol Tartrate 25 Mg Tablet) 25 mg PO BID [facility]; Protocol Last Admin: 09/17/21 21:58 Dose: 25 mg Documented by: RAY Midodrine (Midodrine Hcl 5 Mg Tablet) 5 mg PO DAILY [facility] Last Admin: 09/17/21 08:26 Dose: 5 mg Documented by: SOLO Omeprazole (Omeprazole 20 Mg Capsule.Dr) 20 mg PO BID@0630,1630 [facility] Last Admin: 09/18/21 05:07 Dose: 20 mg Documented by: RAY Ondansetron HCl (Ondansetron Hcl 4 Mg/2 Ml Vial) 4 mg IVPUSH Q8H PRN PRN Reason: Nausea Last Admin: 09/17/21 17:22 Dose: 4 mg Documented by: SOLO Risperidone (Risperidone 2 Mg Tablet) 2 mg PO BID [facility] Last Admin: 09/17/21 21:58 Dose: 2 mg Documented by: RAY Zolpidem Tartrate (Zolpidem Tartrate 5 Mg Tablet) 5 mg PO BEDTIME [facility] Last Admin: 09/17/21 22:02 Dose: 5 mg Documented by: RAY Labs CBC & Chem 7: 09/18/21 05:59 09/18/21 05:59 Labs: Laboratory Results - last 24 hr 09/17/21 09/17/21 09/17/21 09:28 11:11 15:33 MCV MCH MCHC RDW Plt Count MPV Absolute Nucleated RBC Nucleated RBC % (auto) Anion Gap Estim Creat Clear Calc Estimated GFR POC Glucose 382 H* 251 H 52 L* Fasting Glucose Calcium Magnesium 09/17/21 09/17/21 09/17/21 15:55 19:17 21:48 MCV MCH MCHC RDW Plt Count MPV Absolute Nucleated RBC Nucleated RBC % (auto) Anion Gap Estim Creat Clear Calc Estimated GFR POC Glucose 124 H 243 H 232 H Fasting Glucose Calcium Magnesium 09/17/21 09/18/21 09/18/21 23:40 05:59 05:59 MCV 85.5 MCH 26.7 L MCHC 31.2 RDW 14.6 Plt Count 407 H MPV 8.8 L Absolute Nucleated RBC 0.000 Nucleated RBC % (auto) 0.0 Anion Gap 13 Estim Creat Clear Calc 86.3 Estimated GFR > 60 POC Glucose 188 H Fasting Glucose 133 H Calcium 8.6 D Magnesium 1.9 09/18/21 07:11 MCV MCH MCHC RDW Plt Count MPV Absolute Nucleated RBC Nucleated RBC % (auto) Anion Gap Estim Creat Clear Calc Estimated GFR POC Glucose 145 H Fasting Glucose Calcium Magnesium Assessment and Plan (1) Acute kidney injury: Status: Acute Plan 46F with PMH of DMI complicated by frequent DKA, gastroparesis and chronic pancreatitis, bipolar, anxiety, presented with abd pain, found to be in DKA with GEORGETTE and hyperkalemia. was treated in ICU with insulin, IV fluids, with resolution of dka, georgette, and hyperkalemia, downgraded to medical floor, continues to have abd pain, poorly controlled sugars, and poor appetite. DKA in DMI complicated by prerenal GEORGETTE and hyperkalemia DKA resolved GEORGETTE resolved hyperakalemia resolved glucose better controlled, though had one episode of mild hypoglycemia 09/17/21 continues to have abd pain and poor appetite continue IV fluids, conitnue basal/bolus insulin - lantus to 30 units, 5units lispro premeal + correction monitor closely, insulin pump on hold, monitor labs iv dilaudid for pain control gastroparesis small frequent meals bipolar and anxiety continue lamictal, risperdal, ativan dvt prophylaxis - lovenox full code reason for continued hospitalization: with poor appetite, at risk to go back in DKA, severe pain requiring iv opiates Quality Stroke Does the patient have a stroke diagnosis?: No VTE Prior VTE?: No VTE Risk Level:: Medical - moderate - high VTE Device Contraindication: Treatment Not Indicated VTE Drug Contraindication: N/A - Med Ordered
[2021-09-18] MEDS: Insulin Glargine,Hum.rec.anlog 100 UNIT/ML 10 ML VIAL 30 UNIT SUBCUT (09:33)
[2021-09-18] MEDS: lamoTRIgine 100 MG TABLET 200 MG PO ×2 (09:33→20:22)
[2021-09-18] MEDS: risperiDONE 2 MG TABLET PO ×2 (09:34→20:22)
[2021-09-18] MEDS: Midodrine HCl 5 MG TABLET PO (09:34)
[2021-09-18] MEDS: Metoprolol Tartrate 25 MG TABLET PO ×2 (09:34→20:22)
[2021-09-18] MEDS: Enoxaparin Sodium 40 MG/0.4 ML SYRINGE SUBCUT (09:34)
[2021-09-18] MEDS: LORazepam 1 MG TABLET PO ×2 (09:34→20:22)
[2021-09-18] MEDS: ondansetron HCL 4 MG/2 ML VIAL IVPUSH ×2 (09:44→20:32)
[2021-09-18 11:08] LABS: Glucose, Whole Blood 186 mg/dL (60-115)
[2021-09-18] MEDS: Insulin Lispro 100 UNIT/ML 3 ML VIAL SUBCUT ×3 (12:34→20:23)
--- NOTE | 2021-09-18 12:41 | MHC.CM.PN ---
EMR REVIEWED, PT REMIANS ON IV FLUIDS, IV PAIN MEDS. PT CONT'S TO C/O ABD PAIN AND POOR APPETITE, NO PLAN FOR D/C TODAY, CM WILL CON'T TO FOLLOW D/C NEEDS.
[2021-09-18] MEDS: cefTRIAXone sodium 1 GM in 0.9 % Sodium Chloride 50 ML IV (14:20)
[2021-09-18 16:51] LABS: Glucose, Whole Blood 85 mg/dL (60-115)
[2021-09-18 20:05] LABS: Glucose, Whole Blood 270 mg/dL (60-115)
[2021-09-18] MEDS: Zolpidem Tartrate 5 MG TABLET PO (20:21)
[2021-09-19 01:02] LABS: Glucose, Whole Blood 53 mg/dL (60-115)
[2021-09-19 01:27] LABS: Glucose, Whole Blood 93 mg/dL (60-115)
[2021-09-19 03:15] LABS: Glucose, Whole Blood 253 mg/dL (60-115)
[2021-09-19] MEDS: HYDROmorphone HCl 0.5 MG/0.5 ML SYRINGE IVPUSH ×4 (03:49→20:13)
[2021-09-19] MEDS: ondansetron HCL 4 MG/2 ML VIAL IVPUSH ×3 (03:54→20:13)
[2021-09-19 04:00] VITALS: BP 111/56; PULSE 86; RESP 18; TEMP 36.1; O2SAT 97
[2021-09-19] MEDS: Lactated Ringers 1,000 ML 100 ML IVCONT ×2 (05:29→16:03)
[2021-09-19] MEDS: Omeprazole 20 MG CAPSULE.DR PO ×2 (05:43→16:03)
[2021-09-19 05:51] LABS: Hematocrit 30.4 % (37.0-47.0); Hemoglobin 9.4 g/dl (12.0-16.0); Mean Corpuscular HGB Conc 30.9 g/dl (31.0-35.0); Mean Corpuscular Hemoglobin 26.6 pg (27.0-33.0); Mean Corpuscular Volume 86.1 fL (80.0-98.0); Mean Platelet Volume 9.8 fL (9.4-12.3); Platelet Count 317 X10*3/uL (160-400); Red Blood Count 3.53 X10*6/uL (4.20-5.50); Red Cell Distribution Width 14.5 % (11.0-16.0); White Blood Count 9.4 X10*3/uL (4.8-10.8)
[2021-09-19 06:03] LABS: Anion Gap 13 (12-20); Blood Urea Nitrogen 8 mg/dL (9-16); Calcium 8.1 mg/dL (8.4-10.2); Carbon Dioxide 26 mmol/L (22-29); Chloride 101 mmol/L (96-108); Creatinine Clr Calc Pharmacy 89.4; Estimated Glomerular Filt Rate > 60; Glucose Fasting 282 mg/dL (60-99); Potassium 4.5 mmol/L (3.3-5.1); Sodium 135 mmol/L (135-145)
[2021-09-19 07:22] VITALS: BP 121/58; PULSE 95; RESP 18; TEMP 36.5; O2SAT 96
[2021-09-19 07:44] LABS: Glucose, Whole Blood 325 mg/dL (60-115)
[2021-09-19] MEDS: Insulin Lispro 100 UNIT/ML 3 ML VIAL SUBCUT ×3 (08:12→23:19)
--- NOTE | 2021-09-19 09:06 | HO.PM.IMPN ---
Subjective Subjective Date of Service: 09/19/21 Interval History: cc: abd pain interval history:overall better, but still nauseous, vomitting, abd pain, poor appetite, uncontrolled sugars Cardiovascular Cardiovascular: Reports no additional cardiovascular complaints Respiratory Respiratory: Reports no additional respiratory complaints Physical Exam Vital Signs: Vital Signs: Last Vital Signs Temp 97.7 F 09/19/21 07:22 Pulse 95 09/19/21 07:22 Resp 18 09/19/21 07:22 BP 121/58 L 09/19/21 07:22 Pulse Ox 96 09/19/21 07:22 BMI result Body Mass Index 27.1 General: AO X 3, in discomfort - slightly better than yesterday, diaphoretic Resp:? CTA bilateral, no accessory muscles used CVS: S1,S2,RRR GI: soft, tender, non distended Neuro:? motor grossly intact, alert Psych: appropriate affect, appropriate insight? Objective Data Active Medications Enoxaparin Sodium (Enoxaparin Sodium 40 Mg/0.4 Ml Syringe) 40 mg SUBCUT DAILY [facility] Last Admin: 09/18/21 09:34 Dose: 40 mg Documented by: CHEN Hydromorphone HCl (Hydromorphone Hcl 0.5 Mg/0.5 Ml Syringe) 0.5 mg IVPUSH Q4H PRN; Protocol PRN Reason: moderate pain Last Admin: 09/19/21 03:49 Dose: 0.5 mg Documented by: STANLEY Lactated Ringer's (Lr) 1,000 mls @ 100 mls/hr IVCONT .Q10H [facility] Last Admin: 09/19/21 05:29 Dose: 100 mls/hr Documented by: STANLEY Ceftriaxone Sodium 1 gm/ (Sodium Chloride) 50 mls @ 100 mls/hr IV Q24H [facility] Last Infusion: 09/18/21 15:35 Dose: 0 mls/hr Documented by: CHEN Ibuprofen (Ibuprofen 400 Mg Tablet) 400 mg PO Q8H [facility] Last Admin: 09/18/21 23:24 Dose: Not Given Documented by: CARMELA Non-Admin Reason: Patient Refused Insulin Glargine (Insulin Glargine,Hum.Rec.Anlog 100 Unit/Ml 10 Ml Vial) 25 unit SUBCUT DAILY [facility] Insulin Human Lispro (Insulin Lispro 100 Unit/Ml 3 Ml Vial) 0 unit SUBCUT QIDAS [facility]; Protocol Last Admin: 09/19/21 08:12 Dose: 8 unit Documented by: LIANG Comments: Per protocol Insulin Human Lispro (Insulin Lispro 100 Unit/Ml 3 Ml Vial) 3 unit SUBCUT QIDACHS [facility] Lamotrigine (Lamotrigine 100 Mg Tablet) 200 mg PO BID [facility] Last Admin: 09/18/21 20:22 Dose: 200 mg Documented by: CARMLEA Lorazepam (Lorazepam 1 Mg Tablet) 1 mg PO TID [facility] Last Admin: 09/18/21 20:22 Dose: 1 mg Documented by: CARMELA Metoprolol Tartrate (Metoprolol Tartrate 25 Mg Tablet) 25 mg PO BID [facility]; Protocol Last Admin: 09/18/21 20:22 Dose: 25 mg Documented by: CARMELA Midodrine (Midodrine Hcl 5 Mg Tablet) 5 mg PO DAILY [facility] Last Admin: 09/18/21 09:34 Dose: 5 mg Documented by: CHEN Omeprazole (Omeprazole 20 Mg Capsule.Dr) 20 mg PO BID@0630,1630 [facility] Last Admin: 09/19/21 05:43 Dose: 20 mg Documented by: STANLEY Ondansetron HCl (Ondansetron Hcl 4 Mg/2 Ml Vial) 4 mg IVPUSH Q8H PRN PRN Reason: Nausea Last Admin: 09/19/21 03:54 Dose: 4 mg Documented by: STANLEY Risperidone (Risperidone 2 Mg Tablet) 2 mg PO BID [facility] Last Admin: 09/18/21 20:22 Dose: 2 mg Documented by: CARMELA Zolpidem Tartrate (Zolpidem Tartrate 5 Mg Tablet) 5 mg PO BEDTIME [facility] Last Admin: 09/18/21 20:21 Dose: 5 mg Documented by: CARMELA Labs CBC & Chem 7: 09/19/21 05:32 09/19/21 05:32 Labs: Laboratory Results - last 24 hr 09/18/21 09/18/21 09/18/21 10:52 15:12 19:16 MCV MCH MCHC RDW Plt Count MPV Absolute Nucleated RBC Nucleated RBC % (auto) Anion Gap Estim Creat Clear Calc Estimated GFR POC Glucose 186 H 85 270 H Fasting Glucose Calcium 0309/19/21 09/19/21 00:58 01:18 03:09 MCV MCH MCHC RDW Plt Count MPV Absolute Nucleated RBC Nucleated RBC % (auto) Anion Gap Estim Creat Clear Calc Estimated GFR POC Glucose 53 L* 93 253 H Fasting Glucose Calcium 09/19/21 09/19/21 09/19/21 05:32 05:32 07:19 MCV 86.1 MCH 26.6 L MCHC 30.9 L RDW 14.5 Plt Count 317 MPV 9.8 Absolute Nucleated RBC 0.000 Nucleated RBC % (auto) 0.0 Anion Gap 13 Estim Creat Clear Calc 89.4 Estimated GFR > 60 POC Glucose 325 H Fasting Glucose 282 H Calcium 8.1 L Assessment and Plan (1) Acute kidney injury: Status: Acute Plan 46F with PMH of DMI complicated by frequent DKA, gastroparesis and chronic pancreatitis, bipolar, anxiety, presented with abd pain, found to be in DKA with GEORGETTE and hyperkalemia. was treated in ICU with insulin, IV fluids, with resolution of dka, georgette, and hyperkalemia, downgraded to medical floor, continues to have abd pain, poorly controlled sugars, and poor appetite. DKA in DMI complicated by prerenal GEORGETTE and hyperkalemia DKA resolved GEORGETTE resolved hyperakalemia resolved glucose now labile with episodes of hypoglycemia and hyperglycemia continues to have abd pain and poor appetite continue IV fluids, conitnue basal/bolus insulin - decreased lantus to 25 units, lispro to 3 units premeal + correction monitor closely, insulin pump on hold, monitor labs iv dilaudid for pain control gastroparesis small frequent meals bipolar and anxiety continue lamictal, risperdal, ativan dvt prophylaxis - lovenox full code reason for continued hospitalization: with poor appetite, at risk to go back in DKA, severe pain requiring iv opiates Quality Stroke Does the patient have a stroke diagnosis?: No VTE Prior VTE?: No VTE Risk Level:: Medical - moderate - high VTE Device Contraindication: Treatment Not Indicated VTE Drug Contraindication: N/A - Med Ordered
[2021-09-19] MEDS: Midodrine HCl 5 MG TABLET PO (10:11)
[2021-09-19] MEDS: Metoprolol Tartrate 25 MG TABLET PO ×2 (10:11→23:15)
[2021-09-19] MEDS: LORazepam 1 MG TABLET PO ×3 (10:11→23:16)
[2021-09-19] MEDS: lamoTRIgine 100 MG TABLET 200 MG PO ×2 (10:11→23:16)
[2021-09-19] MEDS: Enoxaparin Sodium 40 MG/0.4 ML SYRINGE SUBCUT (10:12)
[2021-09-19] MEDS: risperiDONE 2 MG TABLET PO ×2 (10:12→23:15)
[2021-09-19] MEDS: Insulin Glargine,Hum.rec.anlog 100 UNIT/ML 10 ML VIAL 25 UNIT SUBCUT (10:13)
[2021-09-19 10:49] VITALS: BP 104/53; PULSE 85; RESP 18; TEMP 36.4; O2SAT 98
[2021-09-19 11:27] LABS: Glucose, Whole Blood 146 mg/dL (60-115)
[2021-09-19] MEDS: cefTRIAXone sodium 1 GM in 0.9 % Sodium Chloride 50 ML IV (12:02)
[2021-09-19 15:26] VITALS: BP 123/60; PULSE 86; RESP 16; TEMP 36.6; O2SAT 97
[2021-09-19 15:57] LABS: Glucose, Whole Blood 77 mg/dL (60-115)
[2021-09-19 16:43] LABS: Glucose, Whole Blood 132 mg/dL (60-115)
--- NOTE | 2021-09-19 18:40 | PC.NURSE ---
POC prior to dinner 77. Juice given to pt. Pt states she has not been eating well. Repeat POC 132
[2021-09-19 19:40] VITALS: BP 148/75; PULSE 89; RESP 18; TEMP 36.3; O2SAT 98
[2021-09-19 19:51] LABS: Glucose, Whole Blood 231 mg/dL (60-115)
[2021-09-19] MEDS: Zolpidem Tartrate 5 MG TABLET PO (23:15)
[2021-09-19 23:39] VITALS: BP 137/74; PULSE 93; RESP 17; TEMP 36.3; O2SAT 96
[2021-09-20] MEDS: HYDROmorphone HCl 0.5 MG/0.5 ML SYRINGE IVPUSH ×4 (00:24→13:26)
[2021-09-20] MEDS: Lactated Ringers 1,000 ML 100 ML IVCONT (00:30)
[2021-09-20 03:36] VITALS: BP 129/67; PULSE 93; RESP 17; TEMP 36.6; O2SAT 97
[2021-09-20 04:19] VITALS: BMI 28.2
[2021-09-20] MEDS: Omeprazole 20 MG CAPSULE.DR PO ×2 (05:02→16:48)
[2021-09-20 07:14] VITALS: BP 142/85; PULSE 88; RESP 18; TEMP 36.8; O2SAT 97
[2021-09-20 07:47] LABS: Glucose, Whole Blood 130 mg/dL (60-115)
--- NOTE | 2021-09-20 08:53 | PM.DS ---
DS: Providers Provider Date of Service: 09/20/21 Date of admission: 09/13/21 16:42 Primary care physician: Unknown Physician DS: Diagnosis Discharge Diagnosis (1) Acute kidney injury: Status: Acute DS: Summary Hospital Course Hospital Course: from initial hpi: Chief Complaint:? abdominal pain, DKA ?46-year-old lady with underlying history of diabetes mellitus, bipolar, anxiety, gastroparesis, NSTEMI, pancreatitis admitted on 09/13/2021 with 1 day history of abdominal pain nausea and vomiting.? Patient states that she has been out feeling well for several days and not sure if she to the right amount of insulin.? On ER evaluation patient was noted to be hyperkalemic with diabetic ketoacidosis and acute renal failure.? Her CT abdomen results were discussed with surgical team and deemed not to require an acute intervention.? Patient has been started on insulin drip and IV fluids and admitted to the intensive care unit. hospital course: Patient was admitted for diabetic ketoacidosis in type 1 diabetes complicated by prerenal acute kidney injury and hyperkalemia. She was admitted to the ICU given insulin infusion and IV fluids, DKA, GEORGETTE, hyperkalemia resolved. Course was complicated by episodes of hyperglycemia and hypoglycemia, insulin was adjusted and glucose levels became more stable. Patient is now feeling much better and tolerating solid diet. She will be discharged home and go back on her insulin pump and follow-up with endocrinology. For her gastroparesis she was continued on small frequent meals. For her mood disorder she was continued on Lamictal, Risperdal, Ativan. Patient was also noted to have bacteriuria (ecoli) with questionable symptoms, was treated as lower urinary tract infection, she completed 5 days of ceftriaxone. Time Spent with Patient Time attestation: Total time spent providing and/or coordinating discharge services: Discharge coordination time: Greater than 30 minutes Quality: Stroke Does the patient have a stroke diagnosis?: No Physical Exam Vital Signs: Vital Signs: Last Vital Signs Temp 98.2 F 09/20/21 07:14 Pulse 88 09/20/21 07:14 Resp 18 09/20/21 07:14 BP 142/85 H 09/20/21 07:14 Pulse Ox 97 09/20/21 07:14 BMI result Body Mass Index 28.2 General: AO X 3, no acute distress Resp: CTA bilateral, no accessory muscles used CVS: S1,S2,RRR GI: soft, non tender, non distended Neuro: motor grossly intact, alert Psych: appropriate affect, appropriate insight DS: Data Data Completed and Pending Labs on day of discharge: Laboratory Results - last 24 hr 09/19/21 09/19/21 09/19/21 10:47 15:29 16:36 POC Glucose 146 H 77 132 H 09/19/21 09/20/21 19:45 07:11 POC Glucose 231 H 130 H Discharge Plan Discharge Patient Disposition: Home, Self-Care Discharge Diagnosis: dka Referrals: Physician,Unknown J [Primary Care Provider] - 1 Week Discharge Medications: Continued midodrine 5 mg tablet 5 mg PO DAILY Qty: 90 2RF omeprazole 20 mg capsule,delayed release(DR/EC) 20 mg PO BID Qty: 180 3RF albuterol sulfate 90 mcg/actuation HFA aerosol inhaler 1 puff PO Q4H PRN (Reason: for wheezing) Qty: 8.5 2RF metoprolol tartrate 25 mg tablet 25 mg PO BID Qty: 180 0RF insulin aspart U-100 [Novolog Flexpen U-100 Insulin] 100 unit/mL (3 mL) insulin pen 0 unit subcut DIRECTED 0RF Rx Instructions: INSULIN PUMP lorazepam 1 mg Tablet 1 mg PO TID PRN (Reason: Anxiety) 0RF lamotrigine 200 mg Tablet 200 mg PO BID 0RF zolpidem 10 mg Tablet 10 mg PO BEDTIME 0RF risperidone 2 mg tablet 1 tab PO BID 0RF Discharge Orders: Discharge Order (Routine); Ordered 09/20/21 Ordered By: Bebeto Marie Diet: diabetic diet Activity on Discharge: As tolerated Stand Alone Forms: Patient Portal Discharge page Care Plan Goals: control blood sugars Health Concerns: dka Plan of Treatment: go back on pump, smal frequent meals, follow up with endocrinology Assessment: see above
[2021-09-20] MEDS: ondansetron HCL 4 MG/2 ML VIAL IVPUSH (09:06)
--- NOTE | 2021-09-20 09:44 | MHC.CM.PN ---
PT MEDICALLY CLEARED FOR D/C HOME W/RESUMP OF [facility] AND WEEKLY MH COUNSELOR, PT'S VÍCTOR FOR TRANSPORT.
[2021-09-20] MEDS: Metoprolol Tartrate 25 MG TABLET PO (09:54)
[2021-09-20] MEDS: risperiDONE 2 MG TABLET PO (09:54)
[2021-09-20] MEDS: LORazepam 1 MG TABLET PO ×2 (09:59→15:12)
[2021-09-20] MEDS: Midodrine HCl 5 MG TABLET PO (09:59)
[2021-09-20] MEDS: lamoTRIgine 100 MG TABLET 200 MG PO (10:00)
[2021-09-20] MEDS: Enoxaparin Sodium 40 MG/0.4 ML SYRINGE SUBCUT (10:00)
[2021-09-20] MEDS: Insulin Glargine,Hum.rec.anlog 100 UNIT/ML 10 ML VIAL 25 UNIT SUBCUT (10:01)
[2021-09-20 11:02] LABS: Glucose, Whole Blood 340 mg/dL (60-115)
[2021-09-20] MEDS: Insulin Lispro 100 UNIT/ML 3 ML VIAL SUBCUT ×2 (11:19→11:20)
[2021-09-20 12:00] VITALS: BP 138/75; PULSE 59; RESP 17; TEMP 36.4; O2SAT 98
[2021-09-20] MEDS: Heparin Sodium,Porcine Flush 50 UNITS/5 ML SYRINGE IVFLUSH (15:12)
[2021-09-20 16:00] VITALS: BP 112/60; PULSE 78; RESP 18; TEMP 36.7; O2SAT 94
[2021-09-20 16:17] LABS: Glucose, Whole Blood 96 mg/dL (60-115)
== END 2021-09-20 17:47 | disposition home or self-care (01) | DRG 638 ==
LOC: HO.ED 16:22 → HO.EDOVER 16:43 → HO.ICU 17:30 → HO.S3 09-15 13:50
PROVIDERS: Registered Nurse Community Health; Admitting Provider Internal Medicine Pulmonary Disease; Emergency Provider Emergency Medicine; Visit Provider Internal Medicine
DX: E10.10 Type 1 diabetes mellitus with ketoacidosis without coma (principal); N17.9 Acute kidney failure, unspecified; K31.84 Gastroparesis; E87.5 Hyperkalemia; F31.9 Bipolar disorder, unspecified; E10.43 Type 1 diabetes mellitus with diabetic autonomic (poly)neuropathy; I25.2 Old myocardial infarction; Z20.822 Contact with and (suspected) exposure to COVID-19; Z96.41 Presence of insulin pump (external) (internal); Z87.891 Personal history of nicotine dependence; Z88.5 Allergy status to narcotic agent; Z79.4 Long term (current) use of insulin; Z79.899 Other long term (current) drug therapy
CPT/HCPCS: 36415; 74176; 80048; 80053; 80307; 81001; 81025; 82009; 82040; 82077; 82947; 83605; 83690; 83735; 84100; 84443; 85025; 85027; 87086; 87088; 87186; 87635; 93005; 96361; 96365; 96367; 96375; 99285; 99291; 99292; J0696; J1170; J1642; J1650; J1790; J2060; J2405; J3475

== ENCOUNTER 2022-02-27 21:04 | Emergency (ER) | payer OTHER, SELFPAY ==
[2022-02-27 21:06] VITALS: BP 158/86; PULSE 102; RESP 15; TEMP 36; O2SAT 97; BMI 29.0
[2022-02-27] MEDS: Ondansetron ODT 4 MG TAB.RAPDIS TRANSLINGU (21:14)
--- NOTE | 2022-02-27 22:29 | ED.ABDPAIN ---
HPI - Abdominal Pain General Chief Complaint: Abdominal Pain Stated Complaint: vomitting Time Seen by Provider: 02/27/22 22:25 Source: patient Mode of arrival: ambulatory Limitations: no limitations History of Present Illness HPI narrative: Patient's history of diabetes type 1 on insulin pump with history off gastroparesis and frequent vomiting episodes, history of pancreatitis with history of cannabis use was admitted last month at [facility] for DKA and vomiting this time comes here for similar episode of upper abdominal pain with nausea vomiting since yesterday p.m. got worse today morning, blood sugar been stable around 200mg, vomited multiple times today and able take anything p.o. no fever or chills no back pain Related Data Home Medications Medication Instructions Recorded Confirmed lamotrigine 200 mg tablet 200 mg PO BID 05/11/20 09/13/21 lorazepam 1 mg tablet 1 mg PO TID PRN Anxiety 05/11/20 09/13/21 zolpidem 10 mg tablet 10 mg PO BEDTIME 05/11/20 09/13/21 insulin aspart U-100 100 unit/mL 0 unit subcut DIRECTED 06/01/20 09/13/21 (3 mL) subcutaneous pen (Novolog Flexpen U-100 Insulin aspart) risperidone 2 mg tablet 1 tab PO BID 09/13/21 09/13/21 Previous Rx's Medication Instructions Recorded omeprazole 20 mg capsule,delayed 20 mg PO BID #180 caps 07/26/21 release albuterol sulfate 90 mcg/actuation 1 puff PO Q4H PRN for wheezing 08/22/21 aerosol inhaler #8.5 grams metoprolol tartrate 25 mg tablet 25 mg PO BID #30 tabs 11/16/21 midodrine 5 mg tablet 5 mg PO DAILY #90 tabs 01/08/22 hydromorphone 2 mg tablet 2 mg PO Q6H PRN pain #10 tabs 02/28/22 (Dilaudid) prochlorperazine maleate 10 mg 10 mg PO Q8H PRN nausea and 02/28/22 tablet (Compazine) vomiting #20 tabs Allergies Allergy/AdvReac Type Severity Reaction Status Date / Time morphine [MORPHINE] Allergy Intermediate RASH, Verified 04/10/21 09:37 hives, hives mushroom Allergy Intermediate HIVES/RASH Verified 04/10/21 09:37 mushroom Allergy Unknown throat Uncoded 04/10/21 09:37 closes up/difficult breathing mushrooms Allergy Unknown anaphylaxis Uncoded 04/10/21 09:37 Review of Systems Review of Systems Yes all other systems are reviewed and are negative [facility] Past Medical History Medical History Anxiety Bipolar 1 disorder Diabetes Diabetic gastroparesis Gastroparesis NSTEMI (non-ST elevated myocardial infarction) Pancreatitis Recurrent UTI Status post fall Surgical History H/O pyloroplasty H/O: hysterectomy History of appendectomy History of ERCP History of tonsillectomy Social History Social History Household Members: Spouse Housing: Unknown / Unable to assess Do you presently have visiting nurse or other home services: No (unknown) Unable to assess alcohol history related to: Unable to respond Alcohol intake: never Patient Tobacco Use Status: Former Tobacco user Second Hand Smoke Exposure: No Substance Use Type: Marijuana Advance Directives: No service: No Current occupational status: disabled Physical Exam ED Vital Signs: Vital Signs - 24 hr 02/27/22 21:06 02/28/22 00:18 Temperature 96.8 F 98.4 F Pulse Rate 102 H 113 H Respiratory Rate 15 16 Blood Pressure 158/86 H Pulse Oximetry 97 96 Oxygen Delivery Method Room Air Room Air BMI result Body Mass Index 29.0 Appearance: Alert. Oriented X3. Looks sick Eyes: No pallor ENT: Pharynx normal. Oral Mucosa dry Neck: Normal inspection. Neck supple. CVS: Normal heart rate and rhythm. Pulses normal. Respiratory: No respiratory distress. Equal air entry bilateral, no wheezing/rales/rhonchi Abdomen: Soft , upper abdominal tenderness no rebound tenderness or guarding. Bowel sounds are present, no mass palpable, no CVA tenderness Skin: Skin warm and dry. Normal skin color. Normal skin turgor. Extremities: No lower extremity edema. No calf tenderness Neuro: Oriented X 3. No motor deficit. MDM - Abdominal Pain MDM Narrative Medical decision making narrative: Patient with cannabis induced vomiting/gastroparesis lab workup showed leukocytosis as in the past negative acetone and a gap of 19 patient still nauseated will give Reglan, Dilaudid, Ativan and will discharge patient home advised to continue her medications patient has chronic leukocytosis during these episodes from dehydration and leukemoid reaction no signs of infection at this time Differential Diagnosis Differential diagnosis: Likely abdominal pain Lab Data Attestation: I reviewed the patient's lab results. Result diagrams: 02/27/22 23:17 02/27/22 23:17 Labs: Lab Results 02/27/22 02/27/22 02/27/22 Range/Units 23:17 23:17 23:17 WBC 19.8 H (4.8-10.8) X10*3/uL RBC 3.71 L (4.20-5.50) X10*6/uL Hgb 9.8 L (12.0-16.0) g/dl Hct 30.5 L (37.0-47.0) % MCV 82.2 (80.0-98.0) fL MCH 26.4 L (27.0-33.0) pg MCHC 32.1 (31.0-35.0) g/dl RDW 14.6 (11.0-16.0) % Plt Count 558 H D (160-400) X10*3/uL MPV 8.8 L (9.4-12.3) fL Immature Gran % (Auto) 0.6 H (0.0-0.4) % Neut % (Auto) 81.9 H (45-73) % Lymph % (Auto) 12.8 L (20-40) % Hendricks % (Auto) 3.8 (2-11) % Eos % (Auto) 0.5 (0-4) % Baso % (Auto) 0.4 (0-2) % Lymph # (Auto) 2.5 (1.2-4.9) X10*3/uL Hendricks # (Auto) 0.8 (0.1-1.2) X10*3/uL Eos # (Auto) 0.1 (0.0-0.4) X10*3/uL Baso # (Auto) 0.1 (0.0-0.2) X10*3/uL Abs Immat Gran (auto) 0.11 H (0.00-0.03) X10*3/uL Absolute Neuts (auto) 16.2 H (2.0-8.3) x10*3/uL Absolute Nucleated RBC 0.000 (0.0-0.012) X10*3/uL Nucleated RBC % (auto) 0.0 (0.0-0.2) /100WBC Sodium 136 (135-145) mmol/L Potassium 4.3 (3.3-5.1) mmol/L Chloride 102 (96-108) mmol/L Carbon Dioxide 19 L (22-29) mmol/L Anion Gap 19 (12-20) BUN 11 (9-16) mg/dL Creatinine 0.80 (0.5-1.4) mg/dL Estim Creat Clear Calc 93.6 Estimated GFR > 60 Random Glucose 193 H (60-115) mg/dL Calcium 8.4 (8.4-10.2) mg/dL Total Bilirubin < 0.2 (0.0-1.0) mg/dL Direct Bilirubin < 0.2 (0.0-0.5) mg/dL AST 15 (5-31) U/L ALT 7 (0-31) U/L Alkaline Phosphatase 140 H (39-117) U/L Total Protein 7.3 (6.5-8.0) g/dL Albumin 3.8 (3.5-5.0) g/dL Lipase 7 L (8-78) U/L Acetone, Qual Negative Cancelled (Negative) Discharge Plan Discharge Clinical Impression: Diabetic gastroparesis Patient Disposition: Still a Patient Instructions: Gastroparesis (ED) Additional Instructions: Drink plenty of fluids Take Compazine for increased nausea/vomiting Stop smoking marijuana Prescriptions: New prochlorperazine maleate [Compazine] 10 mg tablet 10 mg PO Q8H PRN (Reason: nausea and vomiting) Qty: 20 0RF hydromorphone [Dilaudid] 2 mg tablet 2 mg PO Q6H PRN (Reason: pain) Qty: 10 0RF Rx Instructions: Partial Fill upon patient request. No Action omeprazole 20 mg capsule,delayed release(DR/EC) 20 mg PO BID Qty: 180 3RF albuterol sulfate 90 mcg/actuation HFA aerosol inhaler 1 puff PO Q4H PRN (Reason: for wheezing) Qty: 8.5 2RF metoprolol tartrate 25 mg tablet 25 mg PO BID Qty: 30 0RF midodrine 5 mg tablet 5 mg PO DAILY Qty: 90 2RF insulin aspart U-100 [Novolog Flexpen U-100 Insulin] 100 unit/mL (3 mL) insulin pen 0 unit subcut DIRECTED Rx Instructions: INSULIN PUMP lorazepam 1 mg Tablet 1 mg PO TID PRN (Reason: Anxiety) lamotrigine 200 mg Tablet 200 mg PO BID zolpidem 10 mg Tablet 10 mg PO BEDTIME risperidone 2 mg tablet 1 tab PO BID
[2022-02-27] MEDS: HYDROmorphone HCl 1 MG/ML SYRINGE IVPUSH (22:49)
[2022-02-27] MEDS: Prochlorperazine Edisylate 10 MG/2 ML VIAL IVPUSH (22:49)
[2022-02-27] MEDS: 0.9 % Sodium Chloride 1,000 ML 999 ML IV (22:52)
[2022-02-27 23:22] LABS: MANUAL DIFF FLAG NO
[2022-02-27 23:24] LABS: Basophils Absolute Auto 0.1 X10*3/uL (0.0-0.2); Basophils Percent Auto 0.4 % (0-2); Eosinophils Absolute Auto 0.1 X10*3/uL (0.0-0.4); Eosinophils Percent Auto 0.5 % (0-4); Hematocrit 30.5 % (37.0-47.0); Hemoglobin 9.8 g/dl (12.0-16.0); Imm Gran Abs Auto 0.11 X10*3/uL (0.00-0.03); Imm Gran Pct Auto 0.6 % (0.0-0.4); Lymphocytes Absolute Auto 2.5 X10*3/uL (1.2-4.9); Lymphocytes Percent Auto 12.8 % (20-40); Mean Corpuscular HGB Conc 32.1 g/dl (31.0-35.0); Mean Corpuscular Hemoglobin 26.4 pg (27.0-33.0); Mean Corpuscular Volume 82.2 fL (80.0-98.0); Mean Platelet Volume 8.8 fL (9.4-12.3); Monocytes Absolute Auto 0.8 X10*3/uL (0.1-1.2); Monocytes Percent Auto 3.8 % (2-11); Neutrophils Absolute Auto 16.2 x10*3/uL (2.0-8.3); Neutrophils Percent Auto 81.9 % (45-73); Platelet Count 558 X10*3/uL (160-400); Red Blood Count 3.71 X10*6/uL (4.20-5.50); Red Cell Distribution Width 14.6 % (11.0-16.0); White Blood Count 19.8 X10*3/uL (4.8-10.8)
[2022-02-27 23:32] LABS: Acetone, serum QL Negative (Negative)
[2022-02-27 23:45] LABS: Alanine Aminotransferase 7 U/L (0-31); Albumin Level 3.8 g/dL (3.5-5.0); Alkaline Phosphatase 140 U/L (39-117); Anion Gap 19 (12-20); Aspartate Amino Transferase 15 U/L (5-31); Bilirubin Direct < 0.2 mg/dL (0.0-0.5); Bilirubin Total < 0.2 mg/dL (0.0-1.0); Blood Urea Nitrogen 11 mg/dL (9-16); Calcium 8.4 mg/dL (8.4-10.2); Carbon Dioxide 19 mmol/L (22-29); Chloride 102 mmol/L (96-108); Creatinine Clr Calc Pharmacy 93.6; Estimated Glomerular Filt Rate > 60; Glucose Random 193 mg/dL (60-115); Lipase 7 U/L (8-78); Potassium 4.3 mmol/L (3.3-5.1); Sodium 136 mmol/L (135-145); Total Protein 7.3 g/dL (6.5-8.0)
[2022-02-28] MEDS: 0.9 % Sodium Chloride 1,000 ML 999 ML IV ×2 (00:13→00:46)
[2022-02-28 00:18] VITALS: PULSE 113; RESP 16; TEMP 36.9; O2SAT 96
[2022-02-28] MEDS: Metoclopramide HCl 10 MG/2 ML VIAL IVPUSH (00:39)
[2022-02-28] MEDS: HYDROmorphone HCl 1 MG/ML SYRINGE IVPUSH (00:39)
== END 2022-02-28 02:17 | disposition home or self-care (01) ==
PROVIDERS: Emergency Provider Internal Medicine; PCP Internal Medicine
DX: E11.43 Type 2 diabetes mellitus with diabetic autonomic (poly)neuropathy (principal); K31.84 Gastroparesis; F12.90 Cannabis use, unspecified, uncomplicated; R11.10 Vomiting, unspecified; R10.9 Unspecified abdominal pain; Z79.899 Other long term (current) drug therapy; Z87.891 Personal history of nicotine dependence; Z79.4 Long term (current) use of insulin
CPT/HCPCS: 36415; 80053; 82009; 82248; 83690; 85025; 96374; 96375; 96376; 99284; J1170; J2765

== ENCOUNTER 2022-11-27 16:56 | Inpatient (IN) | payer OTHER, SELFPAY ==
--- NOTE | ~2022-11-27 | CT_ITS ---
EXAMINATION: CT ABDOMEN AND PELVIS WITHOUT CONTRAST CLINICAL INFORMATION: Diffuse abdominal pain COMPARISON: CT abdomen pelvis 09/13/2021 TECHNIQUE: Multidetector volumetric imaging was performed from the superior aspect of the liver through the pubic symphysis. Sagittal and coronal reformatted images were obtained on the technologist's workstation. This CT examination was performed using dose optimization techniques as appropriate, variously including the following: *Automated exposure control *Adjustment of mA and/or kV according to patient size (this includes techniques or standardized protocols for targeted exams where dose is matched to indication/reason for exam; i.e. extremities or head) *Use of iterative reconstruction technique DLP: 639 mGy-cm FINDINGS: LUNG BASES: The visualized lung bases are unremarkable. LIVER, GALLBLADDER, AND BILIARY TREE: The liver is normal in size, shape, and attenuation. No note, at the time of the prior study there was marked fatty infiltration of the liver which is not present on the current exam. No focal hepatic lesion or biliary ductal dilatation is present. Status post cholecystectomy. PANCREAS: Unremarkable. SPLEEN: Unremarkable. ADRENAL GLANDS: Unremarkable. KIDNEYS AND URETERS: The kidneys are normal in size, shape, and attenuation. Bilateral nephrolithiasis is present similar to prior without obstruction. No hydronephrosis, hydroureter, or ureteral calculi seen. No perinephric stranding. BLADDER: Unremarkable. GASTROINTESTINAL TRACT: A small hiatal hernia is present. The small and large bowel are unremarkable. The appendix is not seen but there is no evidence of appendicitis appendicitis.. ABDOMINAL WALL: No significant hernia is appreciated. LYMPH NODES: No retroperitoneal lymphadenopathy. VASCULAR: Unremarkable. PELVIC VISCERA: Status post hysterectomy. An abnormal adnexal mass is not seen. No free intraperitoneal fluid is present OSSEOUS STRUCTURES: Unremarkable. CT/CT abdomen pelvis wo IV con IMPRESSION: 1. A cause for the patient's diffuse abdominal pain has not been found. 2. Incidental note made of cholecystectomy, small hiatal hernia, bilateral nonobstructing nephrolithiasis and hysterectomy. Fleischner guidelines were followed.
[2022-11-27 17:04] VITALS: BP 158/90; BP 169/89; PULSE 123; PULSE 88; RESP 16; TEMP 37; O2SAT 100; O2SAT 98; BMI 25.7
--- NOTE | 2022-11-27 17:05 | ECG_ITS ---
Test Reason : abd pain Blood Pressure : / mmHG Vent. Rate : 114 BPM Atrial Rate : 114 BPM P-R Int : 152 ms QRS Dur : 092 ms QT Int : 350 ms P-R-T Axes : 066 049 033 degrees QTc Int : 482 ms Sinus tachycardia Low voltage QRS Incomplete right bundle branch block Borderline ECG When compared with ECG of 13-SEP-2021 13:53, No significant change was found Referred By: Traci Maynard Electronically Signed By:Cory Emanuel
[2022-11-27 17:06] LABS: Glucose, Whole Blood 190 mg/dL (60-115)
[2022-11-27] MEDS: 0.9 % Sodium Chloride 2,000 ML 999 ML IVCONT (17:20)
[2022-11-27 17:21] LABS: MANUAL DIFF FLAG NO
[2022-11-27] MEDS: ondansetron HCL 4 MG/2 ML VIAL IVPUSH (17:21)
[2022-11-27] MEDS: HYDROmorphone HCl 1 MG/ML SYRINGE IVPUSH ×2 (17:21→23:13)
[2022-11-27 17:24] LABS: Basophils Absolute Auto 0.1 X10*3/uL (0.0-0.2); Basophils Percent Auto 0.5 % (0-2); Eosinophils Absolute Auto 0.1 X10*3/uL (0.0-0.4); Eosinophils Percent Auto 0.4 % (0-4); Hematocrit 37.9 % (37.0-47.0); Hemoglobin 12.4 g/dl (12.0-16.0); Imm Gran Abs Auto 0.08 X10*3/uL (0.00-0.03); Imm Gran Pct Auto 0.5 % (0.0-0.4); Lymphocytes Absolute Auto 2.9 X10*3/uL (1.2-4.9); Lymphocytes Percent Auto 16.9 % (20-40); Mean Corpuscular HGB Conc 32.7 g/dl (31.0-35.0); Mean Corpuscular Hemoglobin 27.9 pg (27.0-33.0); Mean Corpuscular Volume 85.2 fL (80.0-98.0); Mean Platelet Volume 9.2 fL (9.4-12.3); Monocytes Absolute Auto 0.5 X10*3/uL (0.1-1.2); Monocytes Percent Auto 2.9 % (2-11); Neutrophils Absolute Auto 13.5 x10*3/uL (2.0-8.3); Neutrophils Percent Auto 78.8 % (45-73); Platelet Count 546 X10*3/uL (160-400); Red Blood Count 4.45 X10*6/uL (4.20-5.50); Red Cell Distribution Width 14.7 % (11.0-16.0); White Blood Count 17.1 X10*3/uL (4.8-10.8)
[2022-11-27 17:41] LABS: Ammonia 39 umol/L (13-55)
[2022-11-27 17:47] LABS: VBG Base Excess -0.9 mmol/L; VBG HCO3 20 mmol/L (22-26); VBG pCO2 27 mmHg; VBG pH 7.49 (7.32-7.43); VBG pO2 63 mmHg
[2022-11-27 17:49] LABS: Venous Blood Gas Refer to POC result
[2022-11-27 18:02] LABS: Lactic Acid 2.4 mmol/L (0.5-2.0)
--- NOTE | 2022-11-27 18:08 | ED.NAVMDI ---
HPI - Nausea/Vomiting/Diarrhea General Chief complaint: Nausea/Vomiting/Diarrhea Stated complaint: NVD Time Seen by Provider: 11/27/22 17:05 Source: EMS Mode of arrival: EMS Limitations: altered mental status History of Present Illness HPI Narrative: Patient comes to the emergency room via ambulance from home. Patient feels too sick to give any history at this time, the only thing that the patient states is that she has severe abdominal pain. Per EMS, patient has been having nausea and has been vomiting for about 1 week, no diarrhea. Patient has history of type 1 diabetes and gastroparesis. Denies chest pain. According to EMS, the patient's family reported that the patient has been having episodes of unconsciousness? Which according to the family and the patient, she has had them before. Related Data Home Medications Medication Instructions Recorded Confirmed lamotrigine 200 mg tablet 200 mg PO BID 05/11/20 11/27/22 lorazepam 1 mg tablet 1 mg PO TID PRN Anxiety 05/11/20 11/27/22 zolpidem 10 mg tablet 10 mg PO BEDTIME 05/11/20 11/27/22 insulin aspart U-100 100 unit/mL 0 unit subcut DIRECTED 06/01/20 11/27/22 (3 mL) subcutaneous pen (Novolog FlexPen U-100 Insulin aspart) risperidone 2 mg tablet 1 tab PO BID 09/13/21 11/27/22 Previous Rx's Medication Instructions Recorded midodrine 5 mg tablet 5 mg PO DAILY #90 tabs 01/08/22 omeprazole 20 mg capsule,delayed 20 mg PO BID #180 caps 06/26/22 release albuterol sulfate 90 mcg/actuation 1 puff PO Q4H PRN for wheezing 09/10/22 aerosol inhaler #8.5 grams metoprolol tartrate 25 mg tablet 25 mg PO BID #180 tabs 10/10/22 ondansetron 4 mg disintegrating 4 mg PO BID PRN nausea and 11/12/22 tablet vomiting #14 tabs Allergies Allergy/AdvReac Type Severity Reaction Status Date / Time morphine [MORPHINE] Allergy Intermediate RASH, Verified 10/23/22 13:04 hives, hives mushroom Allergy Intermediate HIVES/RASH Verified 10/23/22 13:04 mushroom Allergy Unknown throat Uncoded 10/23/22 13:04 closes up/difficult breathing mushrooms Allergy Unknown anaphylaxis Uncoded 10/23/22 13:04 Review of Systems Review of Systems: Patient complaining of severe diffuse abdominal pain, denies chest pain or shortness of breath. Yes Unobtainable due to mental condition [facility] Past Medical History Medical History Anxiety Bipolar 1 disorder Diabetes Diabetic gastroparesis Gastroparesis Herpes zoster NSTEMI (non-ST elevated myocardial infarction) Pancreatitis Recurrent UTI Status post fall Surgical History H/O pyloroplasty H/O: hysterectomy History of appendectomy History of cholecystectomy History of ERCP History of tonsillectomy Social History Social History Household Members: Spouse Housing: Unknown / Unable to assess Do you presently have visiting nurse or other home services: No (unknown) Unable to assess alcohol history related to: Unable to respond Alcohol intake: never Patient Tobacco Use Status: Former Tobacco user Tobacco use type: Cigarette Smoked in Last 30 Days: No e-Cigarette/Vaping Use: Never Used Second Hand Smoke Exposure: No Use of substances other than those prescribed or required for medical reasons: No Substance Use Type: Marijuana Advance Directives: No Advance Directives Information Provided: Yes service: No Current occupational status: disabled Cognitive needs: No Hearing needs: No Vision needs: No Physical Exam Vital Signs: Vital Signs: Last Vital Signs Temp 98.4 F 11/27/22 21:37 Pulse 139 H 11/27/22 21:37 Resp 22 H 11/27/22 21:37 BP 161/91 H 11/27/22 21:37 Pulse Ox 99 11/27/22 21:37 O2 Del Method Room Air 11/27/22 21:37 BMI result Body Mass Index 25.7 Const: Other: Appearance: Alert. vomiting, stating that she has abdominal pain. Eyes: Pupils equal, round and reactive to light. ENT: Pharynx normal. Neck: Normal inspection. Neck supple. No lymph nodes noted. No crepitus CVS: Normal heart rate and rhythm. Pulses normal. Normal S1 and S2 Respiratory: No respiratory distress. Breath sounds normal. No Wheezing. No rales Abdomen: Soft diffuse abdominal tenderness, no rebound or guarding Skin: Skin warm and dry. Patient seems diffusely pale Normal skin turgor. Extremities: No lower extremity edema. No Lacerations. No Rash Neuro: No slurred speech. CN 2 through 12 grossly intact Psych: calm, cooperative Course Course Course Narrative: -all labs pending -CT scan pending, last Time the patient presented with similar symptoms, there was a questionable kidney stone in the distal right ureter -increasing fluids, 1 mg hydromorphone (patient allergic to morphine), Zofran Medications Administered Discontinued Medications Generic Name Dose Route Start Last Admin Trade Name Lloydq PRN Reason Stop Dose Admin Hydromorphone HCl 1 mg 11/27/22 17:08 11/27/22 17:21 Hydromorphone Hcl 1 Mg/Ml Syringe IVPUSH 11/27/22 17:09 1 mg ONCE ONE Administration Protocol Sodium Chloride 2,000 mls @ 999 mls/hr 11/27/22 17:05 11/27/22 19:45 Ns IVCONT 11/27/22 19:05 Infused .Q2H1M ONE Infusion Ceftriaxone Sodium 1 gm/ 50 mls @ 100 mls/hr 11/27/22 21:13 11/27/22 21:48 Sodium Chloride IV 11/27/22 21:42 100 mls/hr ONCE ONE Administration Ketorolac Tromethamine 30 mg 11/27/22 21:17 11/27/22 21:50 Ketorolac Tromethamine 30 Mg/Ml Vial IVPUSH 11/27/22 21:18 30 mg ONCE ONE Administration Ondansetron HCl 4 mg 11/27/22 17:07 11/27/22 17:21 Ondansetron Hcl 4 Mg/2 Ml Vial IVPUSH 11/27/22 17:08 4 mg ONCE ONE Administration Prochlorperazine Edisylate 10 mg 11/27/22 21:17 11/27/22 21:47 Prochlorperazine Edisylate 10 Mg/2 Ml Vial IVPUSH 11/27/22 21:18 10 mg ONCE ONE Administration Medical Decision Making Medical Decision Making [facility] Narrative: -patient has not had any episode of vomiting. Patient still complaining of suprapubic pain, no flank pain. Patient does have a UTI, given ceftriaxone. -patient still looks pale, still tachycardic in the 130s, patient receiving more fluids. Urine toxicology positive for marijuana -my interpretation of CT scan of the abdomen: No air-fluid levels, no obstruction, kidney stones, gallbladder surgically absent -patient still needs more fluids which are being given at this time. No fever, no flank pain, Blood pressure steady, sepsis not suspected. Differential Diagnosis Differential Diagnoses: The differential diagnosis associated with the presentation includes (UTI, sepsis, gastroenteritis, viral syndrome) Admission/Observation Consideration of admission/observation: Escalation of care including admission/observation considered Consult Healthcare Provider Management of the patient was discussed with: Hospitalist Lab Data MDM Lab Attestation statement: I reviewed the patient's lab results. 11/27/22 17:16 11/27/22 17:16 Labs: Lab Results 11/27/22 11/27/22 11/27/22 Range/Units 17:00 17:16 17:16 WBC 17.1 H (4.8-10.8) X10*3/uL RBC 4.45 (4.20-5.50) X10*6/uL Hgb 12.4 D (12.0-16.0) g/dl Hct 37.9 D (37.0-47.0) % MCV 85.2 (80.0-98.0) fL MCH 27.9 (27.0-33.0) pg MCHC 32.7 (31.0-35.0) g/dl RDW 14.7 (11.0-16.0) % Plt Count 546 H (160-400) X10*3/uL MPV 9.2 L (9.4-12.3) fL Immature Gran % (Auto) 0.5 H (0.0-0.4) % Neut % (Auto) 78.8 H (45-73) % Lymph % (Auto) 16.9 L (20-40) % Person % (Auto) 2.9 (2-11) % Eos % (Auto) 0.4 (0-4) % Baso % (Auto) 0.5 (0-2) % Lymph # (Auto) 2.9 (1.2-4.9) X10*3/uL Person # (Auto) 0.5 (0.1-1.2) X10*3/uL Eos # (Auto) 0.1 (0.0-0.4) X10*3/uL Baso # (Auto) 0.1 (0.0-0.2) X10*3/uL Abs Immat Gran (auto) 0.08 H (0.00-0.03) X10*3/uL Absolute Neuts (auto) 13.5 H (2.0-8.3) x10*3/uL Absolute Nucleated RBC 0.000 (0.0-0.012) X10*3/uL Nucleated RBC % (auto) 0.0 (0.0-0.2) /100WBC PT (10.0-13.1) SEC INR (0.9-1.1) VBG pH (7.32-7.43) VBG pCO2 mmHg VBG pO2 mmHg VBG HCO3 (22-26) mmol/L VBG O2 Saturation % VBG Base Excess mmol/L Sodium (135-145) mmol/L Potassium (3.3-5.1) mmol/L Chloride (96-108) mmol/L Carbon Dioxide (22-29) mmol/L Anion Gap (12-20) BUN (9-16) mg/dL Creatinine (0.5-1.4) mg/dL Estim Creat Clear Calc Estimated GFR POC Glucose 190 H (60-115) mg/dL Random Glucose (60-115) mg/dL Lactic Acid (0.5-2.0) mmol/L Lactic Acid F/U @ 2Hr (0.5-2.0) mmol/L Calcium (8.4-10.2) mg/dL Magnesium (1.6-2.6) mg/dL Total Bilirubin (0.0-1.0) mg/dL Direct Bilirubin (0.0-0.5) mg/dL AST (5-31) U/L ALT (0-31) U/L Alkaline Phosphatase (39-117) U/L Ammonia 39 (13-55) umol/L Total Creatine Kinase (26-140) U/L Troponin I High Sens (<3.5-17.0) ng/L Total Protein (6.5-8.0) g/dL Albumin (3.5-5.0) g/dL Lipase (8-78) U/L TSH (0.32-4.0) uIU/mL Beta HCG, Quant mIU/mL Urine Color Urine Appearance Urine pH (5.0-9.0) Ur Specific [place] (1.005-1.025) Urine Protein (Neg-Trace) mg/dL Urine Glucose (UA) (Negative) mg/dL Urine Ketones (Negative) mg/dL Urine Blood (Negative) Urine Nitrite (Negative) Ur Leukocyte Esterase (Negative) Urine RBC (0-2) /HPF Urine WBC (0-5) /HPF Ur Squamous Epith Cells (0-2) /HPF Urine Bacteria (None Seen) Hyaline Casts (0-2) /LPF Salicylates (15-30) mg/dL Urine Opiates Screen (Not Detect) Urine Fentanyl Screen (Not Detect) Acetaminophen (<30) mcg/mL Ur Barbiturates Screen (Not Detect) Ur Phencyclidine Scrn (Not Detect) Ur Amphetamines Screen (Not Detect) U Benzodiazepines Scrn (Not Detect) Urine Cocaine Screen (Not Detect) U Marijuana (THC) Screen (Not Detect) Ethyl Alcohol mg/dL Acetone, Qual (Negative) 11/27/22 11/27/22 11/27/22 Range/Units 17:28 17:40 18:02 WBC (4.8-10.8) X10*3/uL RBC (4.20-5.50) X10*6/uL Hgb (12.0-16.0) g/dl Hct (37.0-47.0) % MCV (80.0-98.0) fL MCH (27.0-33.0) pg MCHC (31.0-35.0) g/dl RDW (11.0-16.0) % Plt Count (160-400) X10*3/uL MPV (9.4-12.3) fL Immature Gran % (Auto) (0.0-0.4) % Neut % (Auto) (45-73) % Lymph % (Auto) (20-40) % Person % (Auto) (2-11) % Eos % (Auto) (0-4) % Baso % (Auto) (0-2) % Lymph # (Auto) (1.2-4.9) X10*3/uL Person # (Auto) (0.1-1.2) X10*3/uL Eos # (Auto) (0.0-0.4) X10*3/uL Baso # (Auto) (0.0-0.2) X10*3/uL Abs Immat Gran (auto) (0.00-0.03) X10*3/uL Absolute Neuts (auto) (2.0-8.3) x10*3/uL Absolute Nucleated RBC (0.0-0.012) X10*3/uL Nucleated RBC % (auto) (0.0-0.2) /100WBC PT (10.0-13.1) SEC INR (0.9-1.1) VBG pH 7.49 H (7.32-7.43) VBG pCO2 27 mmHg VBG pO2 63 mmHg VBG HCO3 20 L (22-26) mmol/L VBG O2 Saturation 91.0 % VBG Base Excess -0.9 mmol/L Sodium (135-145) mmol/L Potassium (3.3-5.1) mmol/L Chloride (96-108) mmol/L Carbon Dioxide (22-29) mmol/L Anion Gap (12-20) BUN (9-16) mg/dL Creatinine (0.5-1.4) mg/dL Estim Creat Clear Calc Estimated GFR POC Glucose (60-115) mg/dL Random Glucose (60-115) mg/dL Lactic Acid 2.4 H* (0.5-2.0) mmol/L Lactic Acid F/U @ 2Hr (0.5-2.0) mmol/L Calcium (8.4-10.2) mg/dL Magnesium (1.6-2.6) mg/dL Total Bilirubin (0.0-1.0) mg/dL Direct Bilirubin (0.0-0.5) mg/dL AST (5-31) U/L ALT (0-31) U/L Alkaline Phosphatase (39-117) U/L Ammonia (13-55) umol/L Total Creatine Kinase (26-140) U/L Troponin I High Sens (<3.5-17.0) ng/L Total Protein (6.5-8.0) g/dL Albumin (3.5-5.0) g/dL Lipase (8-78) U/L TSH (0.32-4.0) uIU/mL Beta HCG, Quant mIU/mL Urine Color Yellow Urine Appearance Clear Urine pH 7.0 (5.0-9.0) Ur Specific [place] 1.010 (1.005-1.025) Urine Protein 30 (1+) H (Neg-Trace) mg/dL Urine Glucose (UA) 250 H (Negative) mg/dL Urine Ketones 15 (Negative) mg/dL Urine Blood Small (1+) H (Negative) Urine Nitrite Negative (Negative) Ur Leukocyte Esterase Small (1+) H (Negative) Urine RBC 3-5 H (0-2) /HPF Urine WBC >50 H (0-5) /HPF Ur Squamous Epith Cells 0-2 (0-2) /HPF Urine Bacteria 4+ (None Seen) Hyaline Casts 0-2 (0-2) /LPF Salicylates (15-30) mg/dL Urine Opiates Screen (Not Detect) Urine Fentanyl Screen (Not Detect) Acetaminophen (<30) mcg/mL Ur Barbiturates Screen (Not Detect) Ur Phencyclidine Scrn (Not Detect) Ur Amphetamines Screen (Not Detect) U Benzodiazepines Scrn (Not Detect) Urine Cocaine Screen (Not Detect) U Marijuana (THC) Screen (Not Detect) Ethyl Alcohol mg/dL Acetone, Qual (Negative) 11/27/22 11/27/22 11/27/22 Range/Units 18:02 18:18 18:18 WBC (4.8-10.8) X10*3/uL RBC (4.20-5.50) X10*6/uL Hgb (12.0-16.0) g/dl Hct (37.0-47.0) % MCV (80.0-98.0) fL MCH (27.0-33.0) pg MCHC (31.0-35.0) g/dl RDW (11.0-16.0) % Plt Count (160-400) X10*3/uL MPV (9.4-12.3) fL Immature Gran % (Auto) (0.0-0.4) % Neut % (Auto) (45-73) % Lymph % (Auto) (20-40) % Person % (Auto) (2-11) % Eos % (Auto) (0-4) % Baso % (Auto) (0-2) % Lymph # (Auto) (1.2-4.9) X10*3/uL Person # (Auto) (0.1-1.2) X10*3/uL Eos # (Auto) (0.0-0.4) X10*3/uL Baso # (Auto) (0.0-0.2) X10*3/uL Abs Immat Gran (auto) (0.00-0.03) X10*3/uL Absolute Neuts (auto) (2.0-8.3) x10*3/uL Absolute Nucleated RBC (0.0-0.012) X10*3/uL Nucleated RBC % (auto) (0.0-0.2) /100WBC PT 10.7 (10.0-13.1) SEC INR 0.9 (0.9-1.1) VBG pH (7.32-7.43) VBG pCO2 mmHg VBG pO2 mmHg VBG HCO3 (22-26) mmol/L VBG O2 Saturation % VBG Base Excess mmol/L Sodium 139 (135-145) mmol/L Potassium 3.7 (3.3-5.1) mmol/L Chloride 104 (96-108) mmol/L Carbon Dioxide 22 (22-29) mmol/L Anion Gap 17 (12-20) BUN 8 L (9-16) mg/dL Creatinine 0.81 (0.5-1.4) mg/dL Estim Creat Clear Calc 83.4 Estimated GFR > 60 POC Glucose (60-115) mg/dL Random Glucose 235 H (60-115) mg/dL Lactic Acid (0.5-2.0) mmol/L Lactic Acid F/U @ 2Hr (0.5-2.0) mmol/L Calcium 8.6 (8.4-10.2) mg/dL Magnesium 1.5 L (1.6-2.6) mg/dL Total Bilirubin 0.4 (0.0-1.0) mg/dL Direct Bilirubin 0.1 (0.0-0.5) mg/dL AST 13 (5-31) U/L ALT 11 (0-31) U/L Alkaline Phosphatase 156 H (39-117) U/L Ammonia (13-55) umol/L Total Creatine Kinase 52 (26-140) U/L Troponin I High Sens (<3.5-17.0) ng/L Total Protein 7.4 (6.5-8.0) g/dL Albumin 4.2 (3.5-5.0) g/dL Lipase 6 L (8-78) U/L TSH (0.32-4.0) uIU/mL Beta HCG, Quant < 2 mIU/mL Urine Color Urine Appearance Urine pH (5.0-9.0) Ur Specific [place] (1.005-1.025) Urine Protein (Neg-Trace) mg/dL Urine Glucose (UA) (Negative) mg/dL Urine Ketones (Negative) mg/dL Urine Blood (Negative) Urine Nitrite (Negative) Ur Leukocyte Esterase (Negative) Urine RBC (0-2) /HPF Urine WBC (0-5) /HPF Ur Squamous Epith Cells (0-2) /HPF Urine Bacteria (None Seen) Hyaline Casts (0-2) /LPF Salicylates < 5.0 L (15-30) mg/dL Urine Opiates Screen Not Detected (Not Detect) Urine Fentanyl Screen Not Detected (Not Detect) Acetaminophen < 17 (<30) mcg/mL Ur Barbiturates Screen Not Detected (Not Detect) Ur Phencyclidine Scrn Not Detected (Not Detect) Ur Amphetamines Screen Not Detected (Not Detect) U Benzodiazepines Scrn Not Detected (Not Detect) Urine Cocaine Screen Not Detected (Not Detect) U Marijuana (THC) Screen POSITIVE H (Not Detect) Ethyl Alcohol mg/dL Acetone, Qual (Negative) 11/27/22 11/27/22 11/27/22 Range/Units 18:18 18:18 20:48 WBC (4.8-10.8) X10*3/uL RBC (4.20-5.50) X10*6/uL Hgb (12.0-16.0) g/dl Hct (37.0-47.0) % MCV (80.0-98.0) fL MCH (27.0-33.0) pg MCHC (31.0-35.0) g/dl RDW (11.0-16.0) % Plt Count (160-400) X10*3/uL MPV (9.4-12.3) fL Immature Gran % (Auto) (0.0-0.4) % Neut % (Auto) (45-73) % Lymph % (Auto) (20-40) % Person % (Auto) (2-11) % Eos % (Auto) (0-4) % Baso % (Auto) (0-2) % Lymph # (Auto) (1.2-4.9) X10*3/uL Person # (Auto) (0.1-1.2) X10*3/uL Eos # (Auto) (0.0-0.4) X10*3/uL Baso # (Auto) (0.0-0.2) X10*3/uL Abs Immat Gran (auto) (0.00-0.03) X10*3/uL Absolute Neuts (auto) (2.0-8.3) x10*3/uL Absolute Nucleated RBC (0.0-0.012) X10*3/uL Nucleated RBC % (auto) (0.0-0.2) /100WBC PT (10.0-13.1) SEC INR (0.9-1.1) VBG pH (7.32-7.43) VBG pCO2 mmHg VBG pO2 mmHg VBG HCO3 (22-26) mmol/L VBG O2 Saturation % VBG Base Excess mmol/L Sodium (135-145) mmol/L Potassium (3.3-5.1) mmol/L Chloride (96-108) mmol/L Carbon Dioxide (22-29) mmol/L Anion Gap (12-20) BUN (9-16) mg/dL Creatinine (0.5-1.4) mg/dL Estim Creat Clear Calc Estimated GFR POC Glucose (60-115) mg/dL Random Glucose (60-115) mg/dL Lactic Acid (0.5-2.0) mmol/L Lactic Acid F/U @ 2Hr 1.8 (0.5-2.0) mmol/L Calcium (8.4-10.2) mg/dL Magnesium (1.6-2.6) mg/dL Total Bilirubin (0.0-1.0) mg/dL Direct Bilirubin (0.0-0.5) mg/dL AST (5-31) U/L ALT (0-31) U/L Alkaline Phosphatase (39-117) U/L Ammonia (13-55) umol/L Total Creatine Kinase (26-140) U/L Troponin I High Sens < 2.7 (<3.5-17.0) ng/L Total Protein (6.5-8.0) g/dL Albumin (3.5-5.0) g/dL Lipase (8-78) U/L TSH 0.71 (0.32-4.0) uIU/mL Beta HCG, Quant mIU/mL Urine Color Urine Appearance Urine pH (5.0-9.0) Ur Specific [place] (1.005-1.025) Urine Protein (Neg-Trace) mg/dL Urine Glucose (UA) (Negative) mg/dL Urine Ketones (Negative) mg/dL Urine Blood (Negative) Urine Nitrite (Negative) Ur Leukocyte Esterase (Negative) Urine RBC (0-2) /HPF Urine WBC (0-5) /HPF Ur Squamous Epith Cells (0-2) /HPF Urine Bacteria (None Seen) Hyaline Casts (0-2) /LPF Salicylates (15-30) mg/dL Urine Opiates Screen (Not Detect) Urine Fentanyl Screen (Not Detect) Acetaminophen (<30) mcg/mL Ur Barbiturates Screen (Not Detect) Ur Phencyclidine Scrn (Not Detect) Ur Amphetamines Screen (Not Detect) U Benzodiazepines Scrn (Not Detect) Urine Cocaine Screen (Not Detect) U Marijuana (THC) Screen (Not Detect) Ethyl Alcohol < 10 mg/dL Acetone, Qual Negative (Negative) Radiology Impression Discussion of test interpretation with radiology: I have reviewed the radiologist's reading. Radiologist Impression: INDINGS: LUNG BASES: The visualized lung bases are unremarkable.? LIVER, GALLBLADDER, AND BILIARY TREE: The liver is normal in size, shape, and attenuation. No note, at the time of the prior study there was marked fatty infiltration of the liver which is not present on the current exam. No focal hepatic lesion or biliary ductal dilatation is present. Status post cholecystectomy.? PANCREAS: Unremarkable.? SPLEEN: Unremarkable.? ADRENAL GLANDS: Unremarkable.? KIDNEYS AND URETERS: The kidneys are normal in size, shape, and attenuation. Bilateral nephrolithiasis is present similar to prior without obstruction. No hydronephrosis, hydroureter, or ureteral calculi seen. No perinephric stranding. ? BLADDER: Unremarkable.? GASTROINTESTINAL TRACT: A small hiatal hernia is present. The small and large bowel are unremarkable. The appendix is not seen but there is no evidence of appendicitis appendicitis..? ABDOMINAL WALL: No significant hernia is appreciated.? LYMPH NODES: No retroperitoneal lymphadenopathy. VASCULAR: Unremarkable. PELVIC VISCERA: Status post hysterectomy. An abnormal adnexal mass is not seen. No free intraperitoneal fluid is present? OSSEOUS STRUCTURES: Unremarkable.? CT/CT abdomen pelvis wo IV con IMPRESSION: 1.? A cause for the patient's diffuse abdominal pain has not been found. 2.? Incidental note made of cholecystectomy, small hiatal hernia, bilateral nonobstructing nephrolithiasis and hysterectomy. ? Fleischner guidelines were followed. Critical Care Time Critical Care Time Critical Care Time: Yes Total Critical Care Time: 60 Attestation: I have personally provided critical care time. Time includes review of lab data, radiology results, discussion with consultants, and monitoring for potential decompensation. Intervention performed as documented. Discharge Plan Discharge Clinical Impression: UTI (urinary tract infection), Abdominal pain Patient Disposition: Admitted As Inpatient Prescriptions: No Action midodrine 5 mg tablet 5 mg PO DAILY Qty: 90 2RF albuterol sulfate 90 mcg/actuation HFA aerosol inhaler 1 puff PO Q4H PRN (Reason: for wheezing) Qty: 8.5 2RF metoprolol tartrate 25 mg tablet 25 mg PO BID Qty: 180 0RF ondansetron 4 mg tablet,disintegrating 4 mg PO BID PRN (Reason: nausea and vomiting) Qty: 14 0RF insulin aspart U-100 [Novolog FlexPen U-100 Insulin] 100 unit/mL (3 mL) insulin pen 0 unit subcut DIRECTED Rx Instructions: INSULIN PUMP lorazepam 1 mg Tablet 1 mg PO TID PRN (Reason: Anxiety) lamotrigine 200 mg Tablet 200 mg PO BID zolpidem 10 mg Tablet 10 mg PO BEDTIME risperidone 2 mg tablet 1 tab PO BID omeprazole 20 mg capsule,delayed release(DR/EC) 20 mg PO BID Qty: 180 3RF
[2022-11-27 18:18] VITALS: BP 159/69; PULSE 121; RESP 14; O2SAT 98
[2022-11-27 18:27] LABS: Appearance Urine Clear; Color Urine Yellow; Glucose Urine UA 250 mg/dL (Negative); Leukocyte Esterase Urine Small (1+) (Negative); Nitrite Urine Negative (Negative); UMIC TRIGGER UACC YES; Urine Blood Small (1+) (Negative); Urine Ketones 15 mg/dL (Negative); Urine Protein 30 (1+) mg/dL (Neg-Trace)
[2022-11-27 18:33] LABS: INTERNATIONAL NORM RATIO 0.9 (0.9-1.1); Prothrombin Time 10.7 SEC (10.0-13.1)
[2022-11-27 18:50] LABS: Bacteria Urine 4+ (None Seen); Hyaline Casts Urine 0-2 /LPF (0-2); Squamous Epithelial Cell Urine 0-2 /HPF (0-2); UACC Culture Trigger YES; WBC Urine >50 /HPF (0-5)
--- NOTE | 2022-11-27 18:57 | PC.NURSE ---
PROVIDED WITH UPDATE. PT REPORTS IMPROVEMENT OF HER PAIN. LABS RECOLLECTED, AWAITING RESULTS.
[2022-11-27 18:58] LABS: Acetaminophen LAB < 17 mcg/mL (<30); Alanine Aminotransferase 11 U/L (0-31); Albumin Level 4.2 g/dL (3.5-5.0); Alkaline Phosphatase 156 U/L (39-117); Anion Gap 17 (12-20); Aspartate Amino Transferase 13 U/L (5-31); Bilirubin Direct 0.1 mg/dL (0.0-0.5); Bilirubin Total 0.4 mg/dL (0.0-1.0); Blood Urea Nitrogen 8 mg/dL (9-16); Calcium 8.6 mg/dL (8.4-10.2); Carbon Dioxide 22 mmol/L (22-29); Chloride 104 mmol/L (96-108); Creatinine Clr Calc Pharmacy 83.4; Estimated Glomerular Filt Rate > 60; Ethanol < 10 mg/dL; Glucose Random 235 mg/dL (60-115); HCG Quantitative < 2 mIU/mL; Lipase 6 U/L (8-78); Magnesium 1.5 mg/dL (1.6-2.6); Potassium 3.7 mmol/L (3.3-5.1); Salicylate < 5.0 mg/dL (15-30); Sodium 139 mmol/L (135-145); Total Protein 7.4 g/dL (6.5-8.0); Troponin-I High Sensitivity < 2.7 ng/L (<3.5-17.0)
[2022-11-27 19:07] LABS: TSH reflex Free T4 0.71 uIU/mL (0.32-4.0)
[2022-11-27 19:40] LABS: Reflex Lactate? Lactic Acid Added
[2022-11-27 20:35] LABS: Acetone, serum QL Negative (Negative)
[2022-11-27 21:04] LABS: ~Lactic Acid-LAB USE ONLY 1.8 mmol/L (0.5-2.0)
[2022-11-27 21:37] VITALS: BP 161/91; PULSE 139; RESP 22; TEMP 36.9; O2SAT 99
--- NOTE | 2022-11-27 21:44 | PHA.MEDREC ---
Pharmacy Consult ? Medication Reconciliation Pharmacy has completed the medication reconciliation.
[2022-11-27] MEDS: Prochlorperazine Edisylate 10 MG/2 ML VIAL IVPUSH (21:47)
[2022-11-27] MEDS: cefTRIAXone sodium 1 GM in 0.9 % Sodium Chloride 50 ML IV (21:48)
[2022-11-27] MEDS: Ketorolac Tromethamine 30 MG/ML VIAL IVPUSH (21:50)
[2022-11-27 21:54] LABS: Amphetamine Screen Urine Not Detected (Not Detect); Barbiturates, Urine Not Detected (Not Detect); Benzodiazepines Screen Urine Not Detected (Not Detect); Cannabinoid Screen Urine POSITIVE (Not Detect); Cocaine Screen Urine Not Detected (Not Detect); Fentanyl, urine Not Detected (Not Detect); Opiate Screen Urine Not Detected (Not Detect); Phencyclidine Screen Urine Not Detected (Not Detect)
--- NOTE | 2022-11-27 22:14 | PC.NURSE ---
Pt A&Ox3, reports 9/10 constant mid upper ABD pain with nausea, no vomiting. Pt tachy in the 130's on the bedside monitor, Dr. Maynard notified, new orders given as documented. Pt upper ABD tender to touch, + bowel sounds x 4 quadrants.
[2022-11-27 22:20] VITALS: BP 155/86; PULSE 133; RESP 14
[2022-11-27] MEDS: 0.9 % Sodium Chloride 1,000 ML 999 ML IVCONT (22:45)
[2022-11-27 23:13] VITALS: RESP 20
[2022-11-27 23:34] VITALS: BP 158/86; PULSE 129; RESP 14; TEMP 37; O2SAT 94
--- NOTE | 2022-11-27 23:44 | PM.IMHP ---
History of Present Illness Date of Service: 11/27/22 Chief Complaint: abd pain, N/V 47-year-old female with past medical history of diabetes, GERD, CAD, diabetic ketoacidosis, diabetic gastroparesis, bipolar disorder presents to the hospital with complaints of nausea vomiting and lower abdominal pain. pain started about 1 week ago, associated with nausea and vomiting, 8/10, localized to the suprapubic region, radiating to the right flank, has no fever some chills, nonbloody diarrhea, no chest pain, no palpitations, no shortness of breath, has urinary frequency Urgency and dysuria., no lower extremity edema. On arrival to the ED patient found to have tachycardia, blood pressure stable labs are significant for WBC count of 17,000, magnesium of 1.5, lactic acid of 2.4, improved after IV fluids, UA positive for leukocyte Estrace, WBC, and bacteria, patient started on IV antibiotics and will be admitted for further management Review of Systems Review of Systems: Yes all other systems are reviewed and are negative [facility] Medical History Anxiety Bipolar 1 disorder Diabetes Diabetic gastroparesis Gastroparesis Herpes zoster NSTEMI (non-ST elevated myocardial infarction) Pancreatitis Recurrent UTI Status post fall Surgical History H/O pyloroplasty H/O: hysterectomy History of appendectomy History of cholecystectomy History of ERCP History of tonsillectomy Social History Household Members: Spouse Housing: Unknown / Unable to assess Do you presently have visiting nurse or other home services: No (unknown) Unable to assess alcohol history related to: Unknown Alcohol intake: never Patient Tobacco Use Status: Former Tobacco user Tobacco use type: Cigarette Smoked in Last 30 Days: No e-Cigarette/Vaping Use: Never Used Second Hand Smoke Exposure: No Use of substances other than those prescribed or required for medical reasons: Unknown Substance Use Type: Marijuana Currently Displaying Signs/Symptoms of Drug Intoxication Withdrawal: No Advance Directives: No Advance Directives Information Provided: Yes Do you have thoughts of harming others: None Do you have a plan to hurt others: No Plan Recently lost weight without trying: Unsure How much weight loss: 24-33 pounds Eating poorly because of decreased appetite: Yes Nutrition screen score: 6 Nutrition Risks: No Nutritional Risk Patient : No : No Poor oral hygiene: No service: No Current occupational status: disabled Cognitive needs: No Hearing needs: No Vision needs: No Meds Allergies Allergy/AdvReac Type Severity Reaction Status Date / Time morphine [MORPHINE] Allergy Intermediate RASH, Verified 10/23/22 13:04 hives, hives mushroom Allergy Intermediate HIVES/RASH Verified 10/23/22 13:04 mushroom Allergy Unknown throat Uncoded 10/23/22 13:04 closes up/difficult breathing mushrooms Allergy Unknown anaphylaxis Uncoded 10/23/22 13:04 Active Medications: Current Medications Acetaminophen (Acetaminophen 325 Mg Tablet) 650 mg PO Q6H PRN PRN Reason: Pain, Mild (Pain Scale 1-3) Enoxaparin Sodium (Enoxaparin Sodium 40 Mg/0.4 Ml Syringe) 40 mg SUBCUT Q24H RAISA Hydromorphone HCl (Hydromorphone Hcl 0.5 Mg/0.5 Ml Syringe) 0.5 mg IVPUSH Q4H PRN; Protocol PRN Reason: Pain, Severe (Pain Scale 7-10) Ceftriaxone Sodium 1 gm/ (Sodium Chloride) 50 mls @ 100 mls/hr IV Q24H RAISA Lactated Ringer's (Lr) 1,000 mls @ 100 mls/hr IVCONT .Q10H [facility] Pharmacy Consult (Consult Rx Perform Med Rec) 1 each MISCELLANE ONCE PRN PRN Reason: Consult order Prochlorperazine Edisylate (Prochlorperazine Edisylate 10 Mg/2 Ml Vial) 5 mg IVPUSH Q4H PRN PRN Reason: Nausea and Vomiting Sodium Chloride (0.9 % Sodium Chloride Flush 3 Ml Syringe) 3 ml IVFLUSH QSHIFT [facility] Home Medications Medication Instructions Recorded Confirmed Last Taken Type lamotrigine 200 mg tablet 200 mg PO BID 05/11/20 11/27/22 11/27/22 History lorazepam 1 mg tablet 1 mg PO TID PRN Anxiety 05/11/20 11/27/22 11/27/22 History zolpidem 10 mg tablet 10 mg PO BEDTIME 05/11/20 11/27/22 Unknown History insulin aspart U-100 100 unit/mL 0 unit subcut DIRECTED 06/01/20 11/27/22 11/27/22 History (3 mL) subcutaneous pen (Novolog FlexPen U-100 Insulin aspart) risperidone 2 mg tablet 1 tab PO BID 09/13/21 11/27/22 11/27/22 History Physical Exam Vital Signs and Narrative: Vital Signs: Last Vital Signs Temp 98.6 F 11/27/22 23:34 Pulse 129 H 11/27/22 23:34 Resp 14 11/27/22 23:34 BP 158/86 H 11/27/22 23:34 Pulse Ox 94 11/27/22 23:34 O2 Del Method Room Air 11/27/22 23:34 BMI result Body Mass Index 25.7 Const: Other: ill-appearing, General: cooperative and no acute distress Orientation/consciousness: patient oriented x3 Eyes: General: appearance normal, both eyes and all related structures Pupils: Equal, round and reactive pupils present Resp: Effort & Inspection: normal respiratory effort Auscultation: clear to auscultation bilaterally Cardio: Rate: regular rate Rhythm: regular rhythm GI: Palpation (GI): Soft to palpation Auscultation: normal bowel sounds : Other: suprapubic tenderness Skin: General skin exam: no rashes or lesions noted Neuro: General: patient oriented x3 Cranial nerves: Yes Equal, round and reactive pupils present Cognition (Neuro): normal cognition Extrem: General: Yes normal to inspection and Yes no pedal edema Results Labs 11/27/22 17:16 11/27/22 18:18 Labs: Laboratory Results - last 24 hr 11/27/22 11/27/22 11/27/22 17:00 17:16 17:16 MCV 85.2 MCH 27.9 MCHC 32.7 RDW 14.7 Plt Count 546 H MPV 9.2 L Immature Gran % (Auto) 0.5 H Neut % (Auto) 78.8 H Lymph % (Auto) 16.9 L [place] % (Auto) 2.9 Eos % (Auto) 0.4 Baso % (Auto) 0.5 Lymph # (Auto) 2.9 [place] # (Auto) 0.5 Eos # (Auto) 0.1 Baso # (Auto) 0.1 Abs Immat Gran (auto) 0.08 H Absolute Neuts (auto) 13.5 H Absolute Nucleated RBC 0.000 Nucleated RBC % (auto) 0.0 PT INR VBG pH VBG pCO2 VBG pO2 VBG HCO3 VBG O2 Saturation VBG Base Excess Anion Gap Estim Creat Clear Calc Estimated GFR POC Glucose 190 H Random Glucose Lactic Acid Lactic Acid F/U @ 2Hr Calcium Magnesium Total Bilirubin Direct Bilirubin AST ALT Alkaline Phosphatase Ammonia 39 Total Creatine Kinase Troponin I High Sens Total Protein Albumin Lipase TSH Beta HCG, Quant Urine Color Urine Appearance Urine pH Ur Specific [place] Urine Protein Urine Glucose (UA) Urine Ketones Urine Blood Urine Nitrite Ur Leukocyte Esterase Urine RBC Urine WBC Ur Squamous Epith Cells Urine Bacteria Hyaline Casts Salicylates Urine Opiates Screen Urine Fentanyl Screen Acetaminophen Ur Barbiturates Screen Ur Phencyclidine Scrn Ur Amphetamines Screen U Benzodiazepines Scrn Urine Cocaine Screen U Marijuana (THC) Screen Ethyl Alcohol Acetone, Qual 11/27/22 11/27/22 11/27/22 17:28 17:40 18:02 MCV MCH MCHC RDW Plt Count MPV Immature Gran % (Auto) Neut % (Auto) Lymph % (Auto) [place] % (Auto) Eos % (Auto) Baso % (Auto) Lymph # (Auto) [place] # (Auto) Eos # (Auto) Baso # (Auto) Abs Immat Gran (auto) Absolute Neuts (auto) Absolute Nucleated RBC Nucleated RBC % (auto) PT INR VBG pH 7.49 H VBG pCO2 27 VBG pO2 63 VBG HCO3 20 L VBG O2 Saturation 91.0 VBG Base Excess -0.9 Anion Gap Estim Creat Clear Calc Estimated GFR POC Glucose Random Glucose Lactic Acid 2.4 H* Lactic Acid F/U @ 2Hr Calcium Magnesium Total Bilirubin Direct Bilirubin AST ALT Alkaline Phosphatase Ammonia Total Creatine Kinase Troponin I High Sens Total Protein Albumin Lipase TSH Beta HCG, Quant Urine Color Yellow Urine Appearance Clear Urine pH 7.0 Ur Specific [place] 1.010 Urine Protein 30 (1+) H Urine Glucose (UA) 250 H Urine Ketones 15 Urine Blood Small (1+) H Urine Nitrite Negative Ur Leukocyte Esterase Small (1+) H Urine RBC 3-5 H Urine WBC >50 H Ur Squamous Epith Cells 0-2 Urine Bacteria 4+ Hyaline Casts 0-2 Salicylates Urine Opiates Screen Urine Fentanyl Screen Acetaminophen Ur Barbiturates Screen Ur Phencyclidine Scrn Ur Amphetamines Screen U Benzodiazepines Scrn Urine Cocaine Screen U Marijuana (THC) Screen Ethyl Alcohol Acetone, Qual 11/27/22 11/27/22 11/27/22 18:02 18:18 18:18 MCV MCH MCHC RDW Plt Count MPV Immature Gran % (Auto) Neut % (Auto) Lymph % (Auto) [place] % (Auto) Eos % (Auto) Baso % (Auto) Lymph # (Auto) [place] # (Auto) Eos # (Auto) Baso # (Auto) Abs Immat Gran (auto) Absolute Neuts (auto) Absolute Nucleated RBC Nucleated RBC % (auto) PT 10.7 INR 0.9 VBG pH VBG pCO2 VBG pO2 VBG HCO3 VBG O2 Saturation VBG Base Excess Anion Gap 17 Estim Creat Clear Calc 83.4 Estimated GFR > 60 POC Glucose Random Glucose 235 H Lactic Acid Lactic Acid F/U @ 2Hr Calcium 8.6 Magnesium 1.5 L Total Bilirubin 0.4 Direct Bilirubin 0.1 AST 13 ALT 11 Alkaline Phosphatase 156 H Ammonia Total Creatine Kinase 52 Troponin I High Sens Total Protein 7.4 Albumin 4.2 Lipase 6 L TSH Beta HCG, Quant < 2 Urine Color Urine Appearance Urine pH Ur Specific [place] Urine Protein Urine Glucose (UA) Urine Ketones Urine Blood Urine Nitrite Ur Leukocyte Esterase Urine RBC Urine WBC Ur Squamous Epith Cells Urine Bacteria Hyaline Casts Salicylates < 5.0 L Urine Opiates Screen Not Detected Urine Fentanyl Screen Not Detected Acetaminophen < 17 Ur Barbiturates Screen Not Detected Ur Phencyclidine Scrn Not Detected Ur Amphetamines Screen Not Detected U Benzodiazepines Scrn Not Detected Urine Cocaine Screen Not Detected U Marijuana (THC) Screen POSITIVE H Ethyl Alcohol Acetone, Qual 11/27/22 11/27/22 11/27/22 18:18 18:18 20:48 MCV MCH MCHC RDW Plt Count MPV Immature Gran % (Auto) Neut % (Auto) Lymph % (Auto) [place] % (Auto) Eos % (Auto) Baso % (Auto) Lymph # (Auto) [place] # (Auto) Eos # (Auto) Baso # (Auto) Abs Immat Gran (auto) Absolute Neuts (auto) Absolute Nucleated RBC Nucleated RBC % (auto) PT INR VBG pH VBG pCO2 VBG pO2 VBG HCO3 VBG O2 Saturation VBG Base Excess Anion Gap Estim Creat Clear Calc Estimated GFR POC Glucose Random Glucose Lactic Acid Lactic Acid F/U @ 2Hr 1.8 Calcium Magnesium Total Bilirubin Direct Bilirubin AST ALT Alkaline Phosphatase Ammonia Total Creatine Kinase Troponin I High Sens < 2.7 Total Protein Albumin Lipase TSH 0.71 Beta HCG, Quant Urine Color Urine Appearance Urine pH Ur Specific [place] Urine Protein Urine Glucose (UA) Urine Ketones Urine Blood Urine Nitrite Ur Leukocyte Esterase Urine RBC Urine WBC Ur Squamous Epith Cells Urine Bacteria Hyaline Casts Salicylates Urine Opiates Screen Urine Fentanyl Screen Acetaminophen Ur Barbiturates Screen Ur Phencyclidine Scrn Ur Amphetamines Screen U Benzodiazepines Scrn Urine Cocaine Screen U Marijuana (THC) Screen Ethyl Alcohol < 10 Acetone, Qual Negative Imaging Radiologist's Impressions: Impressions Abdomen/Pelvis CT 11/27/22 18:44 IMPRESSION: 1. A cause for the patient's diffuse abdominal pain has not been found. 2. Incidental note made of cholecystectomy, small hiatal hernia, bilateral nonobstructing nephrolithiasis and hysterectomy. Fleischner guidelines were followed. Assessment and Plan (1) Sepsis: Status: Acute (2) UTI (urinary tract infection): Status: Acute (3) Hypomagnesemia: Status: Acute (4) Lactic acidosis: Status: Acute (5) Sinus tachycardia: Status: Acute (6) Nausea vomiting and diarrhea: Status: Acute Plan 39-year-old female with past medical history of diabetes, gastroparesis, presents to the hospital complaints of nausea vomiting, abdominal pain, as well as urinary symptoms found to have sepsis # sepsis - secondary to UTI - abdomen pelvic shows no evidence of acute abnormality - has no evidence of pneumonia - has urinary symptoms including urgency frequency dysuria with positive fever - will treat with IV antibiotics - follow cultures # acute UTI - positive UA and symptomatic - will treat with IV antibiotics - follow cultures # acute nausea vomiting abdominal pain and diarrhea - possibly multifactorial in the setting of diabetic gastroparesis as well as acute infection - supportive measure with antiemetics, IV fluids # hypo magnesium - repleted - follow Mag level # lactic acidosis - secondary to above - resolved with IV fluids # tachycardia - has history of sinus tachycardia - patient reports she is on metoprolol and has not taking her medications - worsened by acute sepsis - will resume her home metoprolol # diabetes - low-dose sliding scale insulin - diabetic diet # history of gastroparesis - antiemetics - IVF DVT prophylaxis: Lovenox given patient's need for IV antibiotics in the setting of sepsis patient will require minimum 2 nights inpatient hospital stay for further management and monitoring Time Spent With Patient Time: Total time managing care of this patient today ____ minutes. Quality Stroke Does the patient have a stroke diagnosis?: No VTE Prior VTE?: No VTE Risk Level:: Medical - moderate - high VTE Device Contraindication: Treatment Not Indicated VTE Drug Contraindication: N/A - Med Ordered
[2022-11-27] MEDS: Enoxaparin Sodium 40 MG/0.4 ML SYRINGE SUBCUT (23:59)
[2022-11-28] VITALS (7 sets, daily range): BP systolic 133–177; BP diastolic 60–88; PULSE 97–130; RESP 16–19; TEMP 36.7–37.9; O2SAT 95–100; BMI 29.1
--- NOTE | 2022-11-28 | PC.NURSE ---
Pt reports effectiveness to med given.
--- NOTE | 2022-11-28 01:09 | PC.NURSE ---
RN to RN report given to Maryjane. Pt will be transported to room 474, Pt aware of plan.
[2022-11-28] MEDS: HYDROmorphone HCl 0.5 MG/0.5 ML SYRINGE IVPUSH ×4 (04:08→19:23)
[2022-11-28 07:08] LABS: Alanine Aminotransferase 11 U/L (0-31); Albumin Level 4.2 g/dL (3.5-5.0); Alkaline Phosphatase 152 U/L (39-117); Anion Gap 16 (12-20); Aspartate Amino Transferase 13 U/L (5-31); Bilirubin Total 0.3 mg/dL (0.0-1.0); Blood Urea Nitrogen 7 mg/dL (9-16); Calcium 8.6 mg/dL (8.4-10.2); Carbon Dioxide 21 mmol/L (22-29); Chloride 102 mmol/L (96-108); Creatinine Clr Calc Pharmacy 85.5; Estimated Glomerular Filt Rate > 60; Glucose Random 219 mg/dL (60-115); Potassium 4.1 mmol/L (3.3-5.1); Sodium 135 mmol/L (135-145); Total Protein 7.4 g/dL (6.5-8.0)
[2022-11-28 07:22] LABS: Glucose, Whole Blood 217 mg/dL (60-115)
[2022-11-28] MEDS: Prochlorperazine Edisylate 10 MG/2 ML VIAL 5 MG IVPUSH ×3 (09:14→19:24)
[2022-11-28] MEDS: Magnesium Sulfate/H2O 2 GM/50 ML PIGGYBACK IV (09:17)
[2022-11-28] MEDS: Lactated Ringers 1,000 ML 100 ML IVCONT ×4 (09:18→23:57)
[2022-11-28] MEDS: 0.9 % Sodium Chloride Flush 3 ML SYRINGE IVFLUSH ×2 (09:56)
[2022-11-28 10:27] LABS: Magnesium 1.6 mg/dL (1.6-2.6)
[2022-11-28 11:03] LABS: Glucose, Whole Blood 167 mg/dL (60-115)
--- NOTE | 2022-11-28 12:06 | MHC.CM.PN ---
IMM 11/28/22. Pt admitted with dx UTI. Pt from home independent/self-care, no services/DME. D/C plan pending further care/evaluation, but goal is for pt to return home self-care. HCP filed out today, and on file. PCP: Yulisa Rivas Vax: x [phone] pfizer
[2022-11-28] MEDS: Omeprazole 20 MG CAPSULE.DR PO ×3 (12:17→22:04)
[2022-11-28] MEDS: Metoprolol Tartrate 25 MG TABLET PO ×3 (12:17→21:08)
[2022-11-28] MEDS: risperiDONE 2 MG TABLET PO ×3 (12:17→21:08)
[2022-11-28] MEDS: lamoTRIgine 100 MG TABLET 200 MG PO ×3 (12:18→21:07)
--- NOTE | 2022-11-28 12:18 | HO.PM.IMPN ---
Subjective Subjective Date of Service: 11/28/22 Interval History: complaining of persistent lower abdominal discomfort and nausea, no vomiting, feels sweaty, T-max 99.5 degrees, does not feel hungry, no acute events overnight remains hemodynamically stable blood sugars less than 200, is comfortable using insulin pump. urinary symptoms subsided. denies back discomfort for no lightheadedness, no dizziness. Review of Systems Review of Systems: Yes all other systems are reviewed and are negative Physical Exam Vital Signs: Vital Signs: Last Vital Signs Temp 99.5 F 11/28/22 10:54 Pulse 116 H 11/28/22 10:54 Resp 16 11/28/22 10:54 BP 136/67 11/28/22 10:54 Pulse Ox 96 11/28/22 10:54 O2 Del Method Room Air 11/28/22 10:54 BMI result Body Mass Index 25.7 Const: Other: General awake alert sitting comfortably no acute distress. Neck supple no JVD. CVS regular rate rhythm, Respiratory lungs clear to auscultation, no respiratory distress, no wheeze, no rhonchi. Gastrointestinal abdomen soft, suprapubic tenderness to palpation , bowel sounds audible, no distension, no guarding , no rigidity. Extremities no edema. back no CVA tenderness Neuro nonfocal Skin no rash psych appropriate affect Objective Data Active Medications Acetaminophen (Acetaminophen 325 Mg Tablet) 650 mg PO Q6H PRN PRN Reason: Pain, Mild (Pain Scale 1-3) Enoxaparin Sodium (Enoxaparin Sodium 40 Mg/0.4 Ml Syringe) 40 mg SUBCUT Q24H [facility] Last Admin: 11/27/22 23:59 Dose: 40 mg Documented By: FRANCIS Glucose (Glucose Gel 15 Gm Gel..Gram.) 15 gm PO Q15M PRN; Protocol PRN Reason: per Hypoglycemia Standing Ord. Hydromorphone HCl (Hydromorphone Hcl 0.5 Mg/0.5 Ml Syringe) 0.5 mg IVPUSH Q4H PRN; Protocol PRN Reason: Pain, Severe (Pain Scale 7-10) Last Admin: 11/28/22 09:17 Dose: 0.5 mg Documented By: DARLIN Ceftriaxone Sodium 1 gm/ (Sodium Chloride) 50 mls @ 100 mls/hr IV Q24H [facility] Lactated Ringer's (Lr) 1,000 mls @ 100 mls/hr IVCONT .Q10H [facility] Last Admin: 11/28/22 09:18 Dose: 100 mls/hr Documented By: DARLIN Dextrose (D10) 250 mls @ 750 mls/hr IV Q15M PRN; Protocol PRN Reason: per Hypoglycemia Standing Ord. Insulin Human Lispro (Insulin Lispro 100 Unit/Ml 3 Ml Vial) 0 unit SUBCUT QIDACHS [facility]; Protocol Last Admin: 11/28/22 11:33 Dose: Not Given Documented By: DARLIN Non-Admin Reason: No Insulin Coverage Lamotrigine (Lamotrigine 100 Mg Tablet) 200 mg PO BID [facility] Last Admin: 11/28/22 00:00 Dose: 200 mg Documented By: FRANCIS Lorazepam (Lorazepam 1 Mg Tablet) 1 mg PO TID PRN PRN Reason: Anxiety Metoprolol Tartrate (Metoprolol Tartrate 25 Mg Tablet) 25 mg PO BID [facility]; Protocol Last Admin: 11/28/22 00:00 Dose: 25 mg Documented By: FRANCIS Midodrine (Midodrine Hcl 5 Mg Tablet) 5 mg PO DAILY [facility] Last Admin: 11/28/22 10:09 Dose: Not Given Documented By: DARLIN Non-Admin Reason: Elevated Blood Pressure Omeprazole (Omeprazole 20 Mg Capsule.Dr) 20 mg PO BID [facility] Last Admin: 11/28/22 00:00 Dose: 20 mg Documented By: FRANCIS Pharmacy Consult (Consult Rx Perform Med Rec) 1 each MISCELLANE ONCE PRN PRN Reason: Consult order Prochlorperazine Edisylate (Prochlorperazine Edisylate 10 Mg/2 Ml Vial) 5 mg IVPUSH Q4H PRN PRN Reason: Nausea and Vomiting Last Admin: 11/28/22 09:14 Dose: 5 mg Documented By: DARLIN Risperidone (Risperidone 2 Mg Tablet) 2 mg PO BID [facility] Last Admin: 11/28/22 00:00 Dose: 2 mg Documented By: FRANCIS Sodium Chloride (0.9 % Sodium Chloride Flush 3 Ml Syringe) 3 ml IVFLUSH QSHIFT [facility] Last Admin: 11/28/22 09:56 Dose: 3 ml Documented By: DARLIN Zolpidem Tartrate (Zolpidem Tartrate 5 Mg Tablet) 10 mg PO BEDTIME [facility] Last Admin: 11/28/22 00:00 Dose: 10 mg Documented By: FRANCIS Labs 11/27/22 17:16 11/28/22 06:33 Labs: Laboratory Results - last 24 hr 11/27/22 11/27/22 11/27/22 17:00 17:16 17:16 MCV 85.2 MCH 27.9 MCHC 32.7 RDW 14.7 Plt Count 546 H MPV 9.2 L Immature Gran % (Auto) 0.5 H Neut % (Auto) 78.8 H Lymph % (Auto) 16.9 L [place] % (Auto) 2.9 Eos % (Auto) 0.4 Baso % (Auto) 0.5 Lymph # (Auto) 2.9 [place] # (Auto) 0.5 Eos # (Auto) 0.1 Baso # (Auto) 0.1 Abs Immat Gran (auto) 0.08 H Absolute Neuts (auto) 13.5 H Absolute Nucleated RBC 0.000 Nucleated RBC % (auto) 0.0 PT INR VBG pH VBG pCO2 VBG pO2 VBG HCO3 VBG O2 Saturation VBG Base Excess Anion Gap Estim Creat Clear Calc Estimated GFR POC Glucose 190 H Random Glucose Lactic Acid Lactic Acid F/U @ 2Hr Calcium Magnesium Total Bilirubin Direct Bilirubin AST ALT Alkaline Phosphatase Ammonia 39 Total Creatine Kinase Troponin I High Sens Total Protein Albumin Lipase TSH Beta HCG, Quant Urine Color Urine Appearance Urine pH Ur Specific [place] Urine Protein Urine Glucose (UA) Urine Ketones Urine Blood Urine Nitrite Ur Leukocyte Esterase Urine RBC Urine WBC Ur Squamous Epith Cells Urine Bacteria Hyaline Casts Salicylates Urine Opiates Screen Urine Fentanyl Screen Acetaminophen Ur Barbiturates Screen Ur Phencyclidine Scrn Ur Amphetamines Screen U Benzodiazepines Scrn Urine Cocaine Screen U Marijuana (THC) Screen Ethyl Alcohol Acetone, Qual 11/27/22 11/27/22 11/27/22 17:28 17:40 18:02 MCV MCH MCHC RDW Plt Count MPV Immature Gran % (Auto) Neut % (Auto) Lymph % (Auto) [place] % (Auto) Eos % (Auto) Baso % (Auto) Lymph # (Auto) [place] # (Auto) Eos # (Auto) Baso # (Auto) Abs Immat Gran (auto) Absolute Neuts (auto) Absolute Nucleated RBC Nucleated RBC % (auto) PT INR VBG pH 7.49 H VBG pCO2 27 VBG pO2 63 VBG HCO3 20 L VBG O2 Saturation 91.0 VBG Base Excess -0.9 Anion Gap Estim Creat Clear Calc Estimated GFR POC Glucose Random Glucose Lactic Acid 2.4 H* Lactic Acid F/U @ 2Hr Calcium Magnesium Total Bilirubin Direct Bilirubin AST ALT Alkaline Phosphatase Ammonia Total Creatine Kinase Troponin I High Sens Total Protein Albumin Lipase TSH Beta HCG, Quant Urine Color Yellow Urine Appearance Clear Urine pH 7.0 Ur Specific [place] 1.010 Urine Protein 30 (1+) H Urine Glucose (UA) 250 H Urine Ketones 15 Urine Blood Small (1+) H Urine Nitrite Negative Ur Leukocyte Esterase Small (1+) H Urine RBC 3-5 H Urine WBC >50 H Ur Squamous Epith Cells 0-2 Urine Bacteria 4+ Hyaline Casts 0-2 Salicylates Urine Opiates Screen Urine Fentanyl Screen Acetaminophen Ur Barbiturates Screen Ur Phencyclidine Scrn Ur Amphetamines Screen U Benzodiazepines Scrn Urine Cocaine Screen U Marijuana (THC) Screen Ethyl Alcohol Acetone, Qual 11/27/22 11/27/22 11/27/22 18:02 18:18 18:18 MCV MCH MCHC RDW Plt Count MPV Immature Gran % (Auto) Neut % (Auto) Lymph % (Auto) [place] % (Auto) Eos % (Auto) Baso % (Auto) Lymph # (Auto) [place] # (Auto) Eos # (Auto) Baso # (Auto) Abs Immat Gran (auto) Absolute Neuts (auto) Absolute Nucleated RBC Nucleated RBC % (auto) PT 10.7 INR 0.9 VBG pH VBG pCO2 VBG pO2 VBG HCO3 VBG O2 Saturation VBG Base Excess Anion Gap 17 Estim Creat Clear Calc 83.4 Estimated GFR > 60 POC Glucose Random Glucose 235 H Lactic Acid Lactic Acid F/U @ 2Hr Calcium 8.6 Magnesium 1.5 L Total Bilirubin 0.4 Direct Bilirubin 0.1 AST 13 ALT 11 Alkaline Phosphatase 156 H Ammonia Total Creatine Kinase 52 Troponin I High Sens Total Protein 7.4 Albumin 4.2 Lipase 6 L TSH Beta HCG, Quant < 2 Urine Color Urine Appearance Urine pH Ur Specific [place] Urine Protein Urine Glucose (UA) Urine Ketones Urine Blood Urine Nitrite Ur Leukocyte Esterase Urine RBC Urine WBC Ur Squamous Epith Cells Urine Bacteria Hyaline Casts Salicylates < 5.0 L Urine Opiates Screen Not Detected Urine Fentanyl Screen Not Detected Acetaminophen < 17 Ur Barbiturates Screen Not Detected Ur Phencyclidine Scrn Not Detected Ur Amphetamines Screen Not Detected U Benzodiazepines Scrn Not Detected Urine Cocaine Screen Not Detected U Marijuana (THC) Screen POSITIVE H Ethyl Alcohol Acetone, Qual 11/27/22 11/27/22 11/27/22 18:18 18:18 20:48 MCV MCH MCHC RDW Plt Count MPV Immature Gran % (Auto) Neut % (Auto) Lymph % (Auto) [place] % (Auto) Eos % (Auto) Baso % (Auto) Lymph # (Auto) [place] # (Auto) Eos # (Auto) Baso # (Auto) Abs Immat Gran (auto) Absolute Neuts (auto) Absolute Nucleated RBC Nucleated RBC % (auto) PT INR VBG pH VBG pCO2 VBG pO2 VBG HCO3 VBG O2 Saturation VBG Base Excess Anion Gap Estim Creat Clear Calc Estimated GFR POC Glucose Random Glucose Lactic Acid Lactic Acid F/U @ 2Hr 1.8 Calcium Magnesium Total Bilirubin Direct Bilirubin AST ALT Alkaline Phosphatase Ammonia Total Creatine Kinase Troponin I High Sens < 2.7 Total Protein Albumin Lipase TSH 0.71 Beta HCG, Quant Urine Color Urine Appearance Urine pH Ur Specific [place] Urine Protein Urine Glucose (UA) Urine Ketones Urine Blood Urine Nitrite Ur Leukocyte Esterase Urine RBC Urine WBC Ur Squamous Epith Cells Urine Bacteria Hyaline Casts Salicylates Urine Opiates Screen Urine Fentanyl Screen Acetaminophen Ur Barbiturates Screen Ur Phencyclidine Scrn Ur Amphetamines Screen U Benzodiazepines Scrn Urine Cocaine Screen U Marijuana (THC) Screen Ethyl Alcohol < 10 Acetone, Qual Negative 11/28/22 11/28/22 11/28/22 06:33 07:15 10:54 MCV MCH MCHC RDW Plt Count MPV Immature Gran % (Auto) Neut % (Auto) Lymph % (Auto) [place] % (Auto) Eos % (Auto) Baso % (Auto) Lymph # (Auto) [place] # (Auto) Eos # (Auto) Baso # (Auto) Abs Immat Gran (auto) Absolute Neuts (auto) Absolute Nucleated RBC Nucleated RBC % (auto) PT INR VBG pH VBG pCO2 VBG pO2 VBG HCO3 VBG O2 Saturation VBG Base Excess Anion Gap 16 Estim Creat Clear Calc 85.5 Estimated GFR > 60 POC Glucose 217 H 167 H Random Glucose 219 H Lactic Acid Lactic Acid F/U @ 2Hr Calcium 8.6 Magnesium 1.6 Total Bilirubin 0.3 Direct Bilirubin AST 13 ALT 11 Alkaline Phosphatase 152 H Ammonia Total Creatine Kinase Troponin I High Sens Total Protein 7.4 Albumin 4.2 Lipase TSH Beta HCG, Quant Urine Color Urine Appearance Urine pH Ur Specific [place] Urine Protein Urine Glucose (UA) Urine Ketones Urine Blood Urine Nitrite Ur Leukocyte Esterase Urine RBC Urine WBC Ur Squamous Epith Cells Urine Bacteria Hyaline Casts Salicylates Urine Opiates Screen Urine Fentanyl Screen Acetaminophen Ur Barbiturates Screen Ur Phencyclidine Scrn Ur Amphetamines Screen U Benzodiazepines Scrn Urine Cocaine Screen U Marijuana (THC) Screen Ethyl Alcohol Acetone, Qual Assessment and Plan (1) Sinus tachycardia: Status: Acute (2) Lactic acidosis: Status: Acute (3) Hypomagnesemia: Status: Acute (4) UTI (urinary tract infection): Status: Acute Plan 39-year-old female with past medical history of diabetes, gastroparesis, presents to the hospital complaints of nausea vomiting, abdominal pain, as well as urinary symptoms found to have sepsis #? sepsis due to acute pyelonephritis -? abdomen pelvic shows no evidence of acute abnormality -? has no evidence of pneumonia, UA positive -? has urinary symptoms including urgency frequency dysuria with positive fever -? continue IV ceftriaxone day 1 follow urine and blood cultures #? acute nausea vomiting abdominal pain and diarrhea -? possibly multifactorial in the setting of diabetic gastroparesis as well as acute infection -? supportive measure with antiemetics, IV fluids #? hypo magnesium -? repleted, repeat magnesium 1.6 #? lactic acidosis -? secondary to above, resolved with IV fluids #? tachycardia -? has history of sinus tachycardia, patient reports she is on metoprolol and has not taking her medications, likely worsened by acute sepsis -? tachycardia improving continue metoprolol #? diabetes -? started on diabetic diet, continue insulin pump follow blood sugars #? history of gastroparesis -? antiemetics, IVF and Prilosec ?DVT prophylaxis:? Lovenox ?given patient's need for IV antibiotics in the setting of sepsis patient will require continued inpatient hospital stay for further management and monitoring Time Spent With Patient Time: Total time managing care of this patient today ____ minutes. Quality Stroke Does the patient have a stroke diagnosis?: No VTE Prior VTE?: No VTE Risk Level:: Medical - moderate - high VTE Device Contraindication: Treatment Not Indicated VTE Drug Contraindication: N/A - Med Ordered
[2022-11-28 15:51] LABS: Glucose, Whole Blood 162 mg/dL (60-115)
--- NOTE | 2022-11-28 18:29 | PC.NURSE ---
Patient A&OX4. Continues to complain of abdominal pain through shift and nausea. Medicated with prn dilaudid and compazine IV with good effect. IV fluids infusing per order right chest port a cath dressing clean dry and intact. NS/ST on tele. Diet ordered late am. Insulin pump to left abdomen Dr Whipple aware, per pt will notify staff when empty. OOB to commode with assist unsteady gait, alarm in bed for safety. Will continue to monitor and report changes
[2022-11-28 19:48] LABS: Glucose, Whole Blood 172 mg/dL (60-115)
[2022-11-28] MEDS: Zolpidem Tartrate 5 MG TABLET 10 MG PO ×2 (21:08)
[2022-11-28] MEDS: cefTRIAXone sodium 1 GM in 0.9 % Sodium Chloride 50 ML IV (21:09)
[2022-11-28] MEDS: Enoxaparin Sodium 40 MG/0.4 ML SYRINGE SUBCUT (23:56)
[2022-11-29] MEDS: HYDROmorphone HCl 0.5 MG/0.5 ML SYRINGE IVPUSH ×6 (00:03→20:49)
[2022-11-29 03:20] VITALS: BP 107/55; PULSE 89; RESP 18; TEMP 37.4; O2SAT 98
[2022-11-29] MEDS: Prochlorperazine Edisylate 10 MG/2 ML VIAL 5 MG IVPUSH ×5 (04:07→20:49)
[2022-11-29 06:49] LABS: Hematocrit 31.2 % (37.0-47.0); Hemoglobin 10.3 g/dl (12.0-16.0); Mean Corpuscular Hemoglobin 27.7 pg (27.0-33.0); Mean Corpuscular Volume 83.9 fL (80.0-98.0); Mean Platelet Volume 8.5 fL (9.4-12.3); Platelet Count 452 X10*3/uL (160-400); Red Blood Count 3.72 X10*6/uL (4.20-5.50); Red Cell Distribution Width 14.6 % (11.0-16.0); White Blood Count 14.8 X10*3/uL (4.8-10.8)
[2022-11-29 07:20] LABS: Anion Gap 10 (12-20); Blood Urea Nitrogen 8 mg/dL (9-16); Calcium 8.6 mg/dL (8.4-10.2); Carbon Dioxide 29 mmol/L (22-29); Chloride 102 mmol/L (96-108); Creatinine Clr Calc Pharmacy 92.9; Estimated Glomerular Filt Rate > 60; Glucose Random 127 mg/dL (60-115); Potassium 3.3 mmol/L (3.3-5.1); Sodium 138 mmol/L (135-145)
[2022-11-29 07:23] LABS: Glucose, Whole Blood 126 mg/dL (60-115)
[2022-11-29 07:41] VITALS: BP 178/84; PULSE 128; RESP 20; TEMP 36.6; O2SAT 99
[2022-11-29] MEDS: 0.9 % Sodium Chloride Flush 3 ML SYRINGE IVFLUSH (08:13)
[2022-11-29] MEDS: Lactated Ringers 1,000 ML 100 ML IVCONT ×2 (10:23→22:34)
[2022-11-29] MEDS: Pantoprazole Sodium 40 MG/10 ML VIAL IVPUSH ×2 (10:24→16:52)
[2022-11-29] MEDS: Metoclopramide HCl 10 MG/2 ML VIAL 5 MG IVPUSH (10:24)
[2022-11-29] MEDS: Metoprolol Tartrate 25 MG TABLET PO ×2 (10:25→21:19)
[2022-11-29 11:14] VITALS: BP 163/85; PULSE 129; RESP 18; TEMP 36.5; O2SAT 96
[2022-11-29 11:14] LABS: Glucose, Whole Blood 191 mg/dL (60-115)
--- NOTE | 2022-11-29 13:49 | P.PNIM_ITS ---
Subjective Subjective Date of Service: 11/29/22 Interval History: complaining of nausea and bilious vomiting as well as epigastric discomfort, symptoms started account leader, no diarrhea, no back discomfort, no fevers, no chills, blood sugars around 150, no other complaints of lightheadedness dizziness, no chest pain, no palpitation. Review of Systems Review of Systems: Yes all other systems are reviewed and are negative Physical Exam Vital Signs: Vital Signs: Last Vital Signs Temp 97.7 F 11/29/22 11:14 Pulse 129 H 11/29/22 11:14 Resp 18 11/29/22 11:14 BP 163/85 H 11/29/22 11:14 Pulse Ox 96 11/29/22 11:14 O2 Del Method Room Air 11/29/22 11:14 BMI result Body Mass Index 29.1 Const: Other: General? awake alert vomiting, in mild distress.? Neck? supple no JVD. CVS? regular rate rhythm, Respiratory lungs clear to auscultation, no respiratory distress, no wheeze, no rhonchi. Gastrointestinal abdomen soft,? epigastric tenderness to palpation , bowel sounds audible,? no distension, no guarding , no rigidity. Extremities no? edema. back no CVA tenderness Neuro nonfocal Skin no rash psych appropriate affect Objective Data Active Medications Acetaminophen (Acetaminophen 325 Mg Tablet) 650 mg PO Q6H PRN PRN Reason: Pain, Mild (Pain Scale 1-3) Enoxaparin Sodium (Enoxaparin Sodium 40 Mg/0.4 Ml Syringe) 40 mg SUBCUT Q24H [facility] Last Admin: 11/28/22 23:56 Dose: 40 mg Documented By: VENECIA Glucose (Glucose Gel 15 Gm Gel..Gram.) 15 gm PO Q15M PRN; Protocol PRN Reason: per Hypoglycemia Standing Ord. Hydromorphone HCl (Hydromorphone Hcl 0.5 Mg/0.5 Ml Syringe) 0.5 mg IVPUSH Q4H PRN; Protocol PRN Reason: Pain, Severe (Pain Scale 7-10) Last Admin: 11/29/22 12:08 Dose: 0.5 mg Documented By: UNA Ceftriaxone Sodium 1 gm/ (Sodium Chloride) 50 mls @ 100 mls/hr IV Q24H [facility] Last Infusion: 11/28/22 22:05 Dose: 0 mls/hr Documented By: VLADIMIR Dextrose (D10) 250 mls @ 750 mls/hr IV Q15M PRN; Protocol PRN Reason: per Hypoglycemia Standing Ord. Lactated Ringer's (Lr) 1,000 mls @ 100 mls/hr IVCONT .Q10H [facility] Last Admin: 11/29/22 10:23 Dose: 100 mls/hr Documented By: UNA Insulin Human Lispro (Insulin Lispro 100 Unit/Ml 3 Ml Vial) 0 unit SUBCUT QIDACHS [facility]; Protocol Last Admin: 11/29/22 12:09 Dose: Not Given Documented By: UNA Non-Admin Reason: pt has her own insulin pump Lamotrigine (Lamotrigine 100 Mg Tablet) 200 mg PO BID [facility] Last Admin: 11/29/22 10:28 Dose: Not Given Documented By: UNA Non-Admin Reason: Patient Refused Lorazepam (Lorazepam 1 Mg Tablet) 1 mg PO TID PRN PRN Reason: Anxiety Metoclopramide HCl (Metoclopramide Hcl 10 Mg/2 Ml Vial) 5 mg IVPUSH Q6H PRN PRN Reason: Nausea Last Admin: 11/29/22 10:24 Dose: 5 mg Documented By: UNA Metoprolol Tartrate (Metoprolol Tartrate 25 Mg Tablet) 25 mg PO BID [facility]; Protocol Last Admin: 11/29/22 10:25 Dose: 25 mg Documented By: UNA Midodrine (Midodrine Hcl 5 Mg Tablet) 5 mg PO DAILY [facility] Last Admin: 11/29/22 08:00 Dose: Not Given Documented By: UNA Non-Admin Reason: Elevated Blood Pressure Pantoprazole Sodium (Pantoprazole Sodium 40 Mg/10 Ml Vial) 40 mg IVPUSH BID@0630,1630 [facility] Last Admin: 11/29/22 10:24 Dose: 40 mg Documented By: UNA Pharmacy Consult (Consult Rx Perform Med Rec) 1 each MISCELLANE ONCE PRN PRN Reason: Consult order Prochlorperazine Edisylate (Prochlorperazine Edisylate 10 Mg/2 Ml Vial) 5 mg IVPUSH Q4H PRN PRN Reason: Nausea and Vomiting Last Admin: 11/29/22 12:08 Dose: 5 mg Documented By: UNA Risperidone (Risperidone 2 Mg Tablet) 2 mg PO BID [facility] Last Admin: 11/29/22 10:28 Dose: Not Given Documented By: UNA Non-Admin Reason: Patient Refused Sodium Chloride (0.9 % Sodium Chloride Flush 3 Ml Syringe) 3 ml IVFLUSH QSHIFT [facility] Last Admin: 11/29/22 08:13 Dose: 3 ml Documented By: UNA Zolpidem Tartrate (Zolpidem Tartrate 5 Mg Tablet) 10 mg PO BEDTIME [facility] Last Admin: 11/28/22 21:08 Dose: 10 mg Documented By: DOBROB Labs 11/29/22 06:32 11/29/22 06:32 Labs: Laboratory Results - last 24 hr 11/28/22 11/28/22 11/29/22 15:26 19:42 06:32 MCV MCH MCHC RDW Plt Count MPV Absolute Nucleated RBC Nucleated RBC % (auto) Anion Gap 10 L Estim Creat Clear Calc 92.9 Estimated GFR > 60 POC Glucose 162 H 172 H Random Glucose 127 H Calcium 8.6 Magnesium 2.0 11/29/22 11/29/22 11/29/22 06:32 07:13 11:09 MCV 83.9 MCH 27.7 MCHC 33.0 RDW 14.6 Plt Count 452 H MPV 8.5 L Absolute Nucleated RBC 0.000 Nucleated RBC % (auto) 0.0 Anion Gap Estim Creat Clear Calc Estimated GFR POC Glucose 126 H 191 H Random Glucose Calcium Magnesium Microbiology Microbiology Results: Microbiology 11/27/22 18:51 Urine Culture - Final Urine Catheterized - Straight Catheter Escherichia coli 11/27/22 18:18 Blood Culture - Preliminary Blood - Venous No growth after 24 hours. 11/27/22 18:04 Blood Culture - Preliminary Blood - Venous No growth after 24 hours. Assessment and Plan (1) Sinus tachycardia: Status: Acute (2) Lactic acidosis: Status: Acute (3) Hypomagnesemia: Status: Acute (4) UTI (urinary tract infection): Status: Acute Plan 39-year-old female with past medical history of diabetes, gastroparesis, pres ents to the hospital complaints of nausea vomiting, abdominal pain, as well as urinary symptoms found to have sepsis #? sepsis due to acute pyelonephritis persistent nausea vomiting, no CVA tenderness WBC trending down blood cultures x2 no growth times 24 hours -? abdomen pelvic CT shows no evidence of acute abnormality -? has no evidence of pneumonia, UA positive, urine culture growing E coli -? continue IV ceftriaxone day 2 follow final urine and blood cultures #? acute nausea vomiting abdominal pain and diarrhea -? possibly multifactorial in the setting of diabetic gastroparesis as well as acute infection -? continue anti emetics, IV fluids add IV Reglan and IV Protonix #? hypo magnesium -? repleted, repeat magnesium 1.6 #? lactic acidosis -? secondary to above, resolved with IV fluids #? tachycardia -? has history of sinus tachycardia, continue metoprolol #? diabetes -? on diabetic diet, DC insulin pump follow blood sugars and insulin sliding scale #? history of gastroparesis -? antiemetics, IVF and iv protonix ?DVT prophylaxis:? Lovenox ?given patient's need for IV antibiotics in the setting of sepsis and IV fluid for persistent nausea vomiting and IV antibiotics patient will require continued inpatient hospital stay for further management and monitoring Time Spent With Patient Time: Total time managing care of this patient today ____ minutes. Quality Stroke Does the patient have a stroke diagnosis?: No VTE Prior VTE?: No VTE Risk Level:: Medical - moderate - high VTE Device Contraindication: Treatment Not Indicated VTE Drug Contraindication: N/A - Med Ordered
[2022-11-29] MEDS: LORazepam 1 MG TABLET PO (14:41)
[2022-11-29] MEDS: Potassium Chloride/H20 10 MEQ/100 ML PIGGYBACK 100 MEQ IV ×2 (14:41→15:45)
[2022-11-29 15:28] VITALS: BP 155/70; PULSE 97; RESP 18; TEMP 37.2; O2SAT 97
[2022-11-29 15:39] LABS: Glucose, Whole Blood 155 mg/dL (60-115)
[2022-11-29 20:00] VITALS: BP 115/71; PULSE 101; RESP 18; TEMP 37.1; O2SAT 97
[2022-11-29 20:32] LABS: Glucose, Whole Blood 105 mg/dL (60-115)
[2022-11-29] MEDS: cefTRIAXone sodium 1 GM in 0.9 % Sodium Chloride 50 ML IV (20:49)
[2022-11-29] MEDS: risperiDONE 2 MG TABLET PO (21:19)
[2022-11-29] MEDS: lamoTRIgine 100 MG TABLET 200 MG PO (21:19)
[2022-11-29] MEDS: Zolpidem Tartrate 5 MG TABLET 10 MG PO (21:19)
[2022-11-29] MEDS: Enoxaparin Sodium 40 MG/0.4 ML SYRINGE SUBCUT (23:07)
[2022-11-30] VITALS: BP 111/58; PULSE 88; RESP 20; TEMP 36.4; O2SAT 96
[2022-11-30] MEDS: Prochlorperazine Edisylate 10 MG/2 ML VIAL 5 MG IVPUSH ×5 (00:55→22:52)
[2022-11-30] MEDS: HYDROmorphone HCl 0.5 MG/0.5 ML SYRINGE IVPUSH ×5 (00:56→21:22)
[2022-11-30 03:20] VITALS: BP 114/60; PULSE 95; RESP 20; TEMP 37.2; O2SAT 95
[2022-11-30] MEDS: Pantoprazole Sodium 40 MG/10 ML VIAL IVPUSH (05:27)
[2022-11-30 06:59] LABS: Hematocrit 31.1 % (37.0-47.0); Hemoglobin 10.2 g/dl (12.0-16.0); Mean Corpuscular HGB Conc 32.8 g/dl (31.0-35.0); Mean Corpuscular Hemoglobin 27.6 pg (27.0-33.0); Mean Corpuscular Volume 84.3 fL (80.0-98.0); Mean Platelet Volume 8.5 fL (9.4-12.3); Platelet Count 434 X10*3/uL (160-400); Red Blood Count 3.69 X10*6/uL (4.20-5.50); Red Cell Distribution Width 14.2 % (11.0-16.0); White Blood Count 14.1 X10*3/uL (4.8-10.8)
[2022-11-30 07:08] VITALS: BP 113/71; PULSE 99; RESP 18; TEMP 36.6; O2SAT 97
[2022-11-30 07:10] LABS: Anion Gap 12 (12-20); Blood Urea Nitrogen 10 mg/dL (9-16); Calcium 8.6 mg/dL (8.4-10.2); Carbon Dioxide 29 mmol/L (22-29); Chloride 101 mmol/L (96-108); Creatinine Clr Calc Pharmacy 94.2; Estimated Glomerular Filt Rate > 60; Glucose Random 140 mg/dL (60-115); Potassium 3.1 mmol/L (3.3-5.1); Sodium 139 mmol/L (135-145)
[2022-11-30 07:31] LABS: Glucose, Whole Blood 131 mg/dL (60-115)
[2022-11-30] MEDS: risperiDONE 2 MG TABLET PO ×2 (07:31→21:22)
[2022-11-30] MEDS: Midodrine HCl 5 MG TABLET PO (07:31)
[2022-11-30] MEDS: lamoTRIgine 100 MG TABLET 200 MG PO ×2 (07:31→21:22)
[2022-11-30] MEDS: Metoprolol Tartrate 25 MG TABLET PO ×2 (07:31→19:42)
[2022-11-30] MEDS: Metoclopramide HCl 10 MG/2 ML VIAL 5 MG IVPUSH ×2 (07:38→19:42)
[2022-11-30] MEDS: Lactated Ringers 1,000 ML 100 ML IVCONT (08:57)
[2022-11-30] MEDS: Potassium Chloride ER 20 MEQ TAB.ER.PRT 40 MEQ PO (09:09)
--- NOTE | 2022-11-30 10:47 | MHC.CM.PN ---
EMR REVIEWED, PT WILL REMAIN INPT TO CONT IV ABX PER HOSPITALIST, ANTIC PT WILL D/C HOME NO SERVICES ONCE MEDICALLY CLEARED, CM WILL CONT TO FOLLOW D/C NEEDS.
[2022-11-30 11:12] LABS: Glucose, Whole Blood 107 mg/dL (60-115)
[2022-11-30 11:20] VITALS: BP 170/87; PULSE 104; RESP 20; TEMP 37.4; O2SAT 97
--- NOTE | 2022-11-30 11:53 | HO.PM.IMPN ---
Subjective Subjective Date of Service: 11/30/22 Interval History: complaining of persistent nausea and vomiting but less frequent, persistent epigastric discomfort, no diarrhea, has decreased by mouth intake no fevers, no chills, no CVA tenderness, no other acute issues of headache, no dizziness. Review of Systems Review of Systems: Yes all other systems are reviewed and are negative Physical Exam Vital Signs: Vital Signs: Last Vital Signs Temp 99.3 F 11/30/22 11:20 Pulse 104 H 11/30/22 11:20 Resp 20 11/30/22 11:20 BP 170/87 H 11/30/22 11:20 Pulse Ox 97 11/30/22 11:20 O2 Del Method Room Air 11/30/22 11:20 BMI result Body Mass Index 29.1 Const: Other: General? awake alert vomiting, in mild distress.? Neck? supple no JVD. CVS? regular rate rhythm, Respiratory lungs clear to auscultation, no respiratory distress, no wheeze, no rhonchi. Gastrointestinal abdomen soft,?mild epigastric tenderness to palpation , bowel sounds audible,? no distension, no guarding , no rigidity. Extremities no? edema. back no CVA tenderness Neuro nonfocal Skin no rash psych appropriate affect Objective Data Active Medications Acetaminophen (Acetaminophen 325 Mg Tablet) 650 mg PO Q6H PRN PRN Reason: Pain, Mild (Pain Scale 1-3) Enoxaparin Sodium (Enoxaparin Sodium 40 Mg/0.4 Ml Syringe) 40 mg SUBCUT Q24H [facility] Last Admin: 11/29/22 23:07 Dose: 40 mg Documented By: KEIKO Glucose (Glucose Gel 15 Gm Gel..Gram.) 15 gm PO Q15M PRN; Protocol PRN Reason: per Hypoglycemia Standing Ord. Hydromorphone HCl (Hydromorphone Hcl 0.5 Mg/0.5 Ml Syringe) 0.5 mg IVPUSH Q4H PRN; Protocol PRN Reason: Pain, Severe (Pain Scale 7-10) Last Admin: 11/30/22 10:19 Dose: 0.5 mg Documented By: UNA Ceftriaxone Sodium 1 gm/ (Sodium Chloride) 50 mls @ 100 mls/hr IV Q24H [facility] Last Infusion: 11/29/22 21:28 Dose: 0 mls/hr Documented By: KEIKO Dextrose (D10) 250 mls @ 750 mls/hr IV Q15M PRN; Protocol PRN Reason: per Hypoglycemia Standing Ord. Lactated Ringer's (Lr) 1,000 mls @ 100 mls/hr IVCONT .Q10H [facility] Last Admin: 11/30/22 08:57 Dose: 100 mls/hr Documented By: UNA Insulin Human Lispro (Insulin Lispro 100 Unit/Ml 3 Ml Vial) 0 unit SUBCUT QIDACHS [facility]; Protocol Last Admin: 11/30/22 11:15 Dose: Not Given Documented By: UNA Non-Admin Reason: No Insulin Coverage Lamotrigine (Lamotrigine 100 Mg Tablet) 200 mg PO BID [facility] Last Admin: 11/30/22 07:31 Dose: 200 mg Documented By: UNA Lorazepam (Lorazepam 1 Mg Tablet) 1 mg PO TID PRN PRN Reason: Anxiety Last Admin: 11/29/22 14:41 Dose: 1 mg Documented By: UNA Metoclopramide HCl (Metoclopramide Hcl 10 Mg/2 Ml Vial) 5 mg IVPUSH Q6H PRN PRN Reason: Nausea Last Admin: 11/30/22 07:38 Dose: 5 mg Documented By: UNA Metoprolol Tartrate (Metoprolol Tartrate 25 Mg Tablet) 25 mg PO BID [facility]; Protocol Last Admin: 11/30/22 07:31 Dose: 25 mg Documented By: UNA Midodrine (Midodrine Hcl 5 Mg Tablet) 5 mg PO DAILY [facility] Last Admin: 11/30/22 07:31 Dose: 5 mg Documented By: UNA Pantoprazole Sodium (Pantoprazole Sodium 40 Mg/10 Ml Vial) 40 mg IVPUSH BID@0630,1630 [facility] Last Admin: 11/30/22 05:27 Dose: 40 mg Documented By: KEIKO Pharmacy Consult (Consult Rx Perform Med Rec) 1 each MISCELLANE ONCE PRN PRN Reason: Consult order Prochlorperazine Edisylate (Prochlorperazine Edisylate 10 Mg/2 Ml Vial) 5 mg IVPUSH Q4H PRN PRN Reason: Nausea and Vomiting Last Admin: 11/30/22 10:19 Dose: 5 mg Documented By: UNA Risperidone (Risperidone 2 Mg Tablet) 2 mg PO BID [facility] Last Admin: 11/30/22 07:31 Dose: 2 mg Documented By: UNA Sodium Chloride (0.9 % Sodium Chloride Flush 3 Ml Syringe) 3 ml IVFLUSH QSHIFT [facility] Last Admin: 11/30/22 07:32 Dose: Not Given Documented By: UNA Non-Admin Reason: IV Running Zolpidem Tartrate (Zolpidem Tartrate 5 Mg Tablet) 10 mg PO BEDTIME [facility] Last Admin: 11/29/22 21:19 Dose: 10 mg Documented By: JENIFERB Labs 11/30/22 06:40 11/30/22 06:40 Labs: Laboratory Results - last 24 hr 11/29/22 11/29/22 11/30/22 15:27 20:14 06:40 MCV 84.3 MCH 27.6 MCHC 32.8 RDW 14.2 Plt Count 434 H MPV 8.5 L Absolute Nucleated RBC 0.000 Nucleated RBC % (auto) 0.0 Anion Gap Estim Creat Clear Calc Estimated GFR POC Glucose 155 H 105 Random Glucose Calcium 11/30/22 11/30/22 11/30/22 06:40 07:07 11:07 MCV MCH MCHC RDW Plt Count MPV Absolute Nucleated RBC Nucleated RBC % (auto) Anion Gap 12 Estim Creat Clear Calc 94.2 Estimated GFR > 60 POC Glucose 131 H 107 Random Glucose 140 H Calcium 8.6 Microbiology Microbiology Results: Microbiology 11/27/22 18:18 Blood Culture - Preliminary Blood - Venous No growth after 48 hours. 11/27/22 18:04 Blood Culture - Preliminary Blood - Venous No growth after 48 hours. Assessment and Plan (1) Sinus tachycardia: Status: Acute (2) Lactic acidosis: Status: Acute (3) Hypomagnesemia: Status: Acute (4) UTI (urinary tract infection): Status: Acute Plan 39-year-old female with past medical history of diabetes, gastroparesis, presents to the hospital complaints of nausea vomiting, abdominal pain, as well as urinary symptoms found to have sepsis #? sepsis due to acute pyelonephritis persistent nausea, no CVA tenderness WBC trending down blood cultures x2 no growth times 48 hours -? abdomen pelvic CT shows no evidence of acute abnormality -? has no evidence of pneumonia, urine culture E coli -? continue IV ceftriaxone day 3/ #? acute nausea ,vomiting abdominal pain diarrhea resolved continue diabetic diet -? possibly multifactorial in the setting of diabetic gastroparesis as well as acute infection -? continue anti emetics, and IV Protonix, recommend out of bed to chair and ambulation #? hypo magnesium -? repleted, repeat magnesium 1.6 # hypokalemia replete and follow labs #? lactic acidosis -? secondary to above, resolved with IV fluids #? tachycardia -? has history of sinus tachycardia, continue metoprolol tachycardia improving , DC midodrine elevated blood pressures #? diabetes -? on diabetic diet, DC insulin pump follow blood sugars and insulin sliding scale #? history of gastroparesis -? improving, continue antiemetics, IVF and dc iv protonix and transition to by mouth ?DVT prophylaxis:? Lovenox ?given patient's need for IV antibiotics in the setting of sepsis and IV fluid for persistent nausea vomiting and IV antibiotics patient will require continued inpatient hospital stay for further management and monitoring Time Spent With Patient Time: Total time managing care of this patient today ____ minutes. Quality Stroke Does the patient have a stroke diagnosis?: No VTE Prior VTE?: No VTE Risk Level:: Medical - moderate - high VTE Device Contraindication: Treatment Not Indicated VTE Drug Contraindication: N/A - Med Ordered
[2022-11-30] MEDS: KCl 20 mEq in 0.9 % Sodium ChL 20 MEQ/1,000 ML IV.SOLN 80 MEQ IVCONT (13:15)
[2022-11-30] MEDS: LORazepam 1 MG TABLET PO ×2 (14:43→22:52)
[2022-11-30 16:00] VITALS: PULSE 108; RESP 20; TEMP 36.1; O2SAT 96
[2022-11-30 16:48] LABS: Glucose, Whole Blood 261 mg/dL (60-115)
[2022-11-30] MEDS: Insulin Lispro 100 UNIT/ML 3 ML VIAL SUBCUT ×2 (16:52→21:30)
[2022-11-30] MEDS: Omeprazole 20 MG CAPSULE.DR PO (16:53)
[2022-11-30] MEDS: cefTRIAXone sodium 1 GM in 0.9 % Sodium Chloride 50 ML IV (19:43)
[2022-11-30 19:47] VITALS: BP 153/84; PULSE 132; RESP 20; TEMP 36.3; O2SAT 96
[2022-11-30 20:45] LABS: Glucose, Whole Blood 198 mg/dL (60-115)
[2022-11-30] MEDS: Zolpidem Tartrate 5 MG TABLET 10 MG PO (21:22)
[2022-11-30] MEDS: Enoxaparin Sodium 40 MG/0.4 ML SYRINGE SUBCUT (22:52)
[2022-11-30] MEDS: 0.9 % Sodium Chloride Flush 3 ML SYRINGE IVFLUSH (22:55)
[2022-12-01] VITALS (8 sets, daily range): BP systolic 80–153; BP diastolic 56–87; PULSE 87–113; RESP 18–20; TEMP 36.7–37.4; O2SAT 92–98
[2022-12-01] MEDS: KCl 20 mEq in 0.9 % Sodium ChL 20 MEQ/1,000 ML IV.SOLN 80 MEQ IVCONT ×2 (02:47→15:22)
[2022-12-01] MEDS: Prochlorperazine Edisylate 10 MG/2 ML VIAL 5 MG IVPUSH ×3 (03:49→21:19)
[2022-12-01] MEDS: HYDROmorphone HCl 0.5 MG/0.5 ML SYRINGE IVPUSH ×4 (03:49→21:23)
[2022-12-01 03:51] LABS: Glucose, Whole Blood 217 mg/dL (60-115)
[2022-12-01] MEDS: Omeprazole 20 MG CAPSULE.DR PO ×2 (06:19→15:19)
[2022-12-01 06:36] LABS: Hematocrit 33.4 % (37.0-47.0); Hemoglobin 10.9 g/dl (12.0-16.0); Mean Corpuscular HGB Conc 32.6 g/dl (31.0-35.0); Mean Corpuscular Hemoglobin 27.5 pg (27.0-33.0); Mean Corpuscular Volume 84.3 fL (80.0-98.0); Mean Platelet Volume 8.7 fL (9.4-12.3); Platelet Count 469 X10*3/uL (160-400); Red Blood Count 3.96 X10*6/uL (4.20-5.50); Red Cell Distribution Width 14.3 % (11.0-16.0); White Blood Count 15.6 X10*3/uL (4.8-10.8)
[2022-12-01 06:56] LABS: Anion Gap 18 (12-20); Blood Urea Nitrogen 16 mg/dL (9-16); Calcium 8.4 mg/dL (8.4-10.2); Carbon Dioxide 21 mmol/L (22-29); Chloride 100 mmol/L (96-108); Creatinine Clr Calc Pharmacy 67.5; Estimated Glomerular Filt Rate 55; Glucose Random 345 mg/dL (60-115); Potassium 3.9 mmol/L (3.3-5.1); Sodium 135 mmol/L (135-145)
[2022-12-01 07:14] LABS: Glucose, Whole Blood 352 mg/dL (60-115)
[2022-12-01] MEDS: Insulin Lispro 100 UNIT/ML 3 ML VIAL SUBCUT ×4 (07:56→21:18)
[2022-12-01] MEDS: risperiDONE 2 MG TABLET PO ×2 (07:58→21:21)
[2022-12-01] MEDS: Metoprolol Tartrate 25 MG TABLET PO ×2 (07:58→21:21)
[2022-12-01] MEDS: LORazepam 1 MG TABLET PO ×2 (07:58→15:20)
[2022-12-01] MEDS: 0.9 % Sodium Chloride Flush 3 ML SYRINGE IVFLUSH ×3 (07:59→21:23)
[2022-12-01] MEDS: lamoTRIgine 100 MG TABLET 200 MG PO ×2 (07:59→21:22)
[2022-12-01 11:17] LABS: Glucose, Whole Blood 263 mg/dL (60-115)
--- NOTE | 2022-12-01 11:22 | P.PNIM_ITS ---
Subjective Subjective Date of Service: 12/01/22 Interval History: Feeling better this morning complaining of nausea, decreased by mouth intake has been out of bed to chair, ambulating but get nauseous, blood sugars elevated in 300 range, receiving IV fluid denies urinary symptoms of urgency or frequency, no recurrent fever, chills, no headache, no dizziness. Review of Systems Review of Systems: Yes all other systems are reviewed and are negative Physical Exam Vital Signs: Vital Signs: Last Vital Signs Temp 98.5 F 12/01/22 11:03 Pulse 87 12/01/22 11:03 Resp 20 12/01/22 11:03 BP 96/60 12/01/22 11:03 Pulse Ox 92 12/01/22 11:03 O2 Del Method Room Air 12/01/22 11:03 BMI result Body Mass Index 29.1 Const: Other: General? awake alert vomiting, in no distress.? Neck? supple no JVD. CVS? regular rate rhythm, Respiratory lungs clear to auscultation, no respiratory distress, no wheeze, no rhonchi. Gastrointestinal abdomen soft,?mild epigastric tenderness to palpation , bowel sounds audible,? no distension, no guarding , no rigidity. Extremities no? edema. back no CVA tenderness Neuro nonfocal Skin no rash psych appropriate affect Objective Data Active Medications Acetaminophen (Acetaminophen 325 Mg Tablet) 650 mg PO Q6H PRN PRN Reason: Pain, Mild (Pain Scale 1-3) Enoxaparin Sodium (Enoxaparin Sodium 40 Mg/0.4 Ml Syringe) 40 mg SUBCUT Q24H REPLACED BY [facility] Last Admin: 11/30/22 22:52 Dose: 40 mg Documented By: FAHEEM Glucose (Glucose Gel 15 Gm Gel..Gram.) 15 gm PO Q15M PRN; Protocol PRN Reason: per Hypoglycemia Standing Ord. Hydromorphone HCl (Hydromorphone Hcl 0.5 Mg/0.5 Ml Syringe) 0.5 mg IVPUSH Q6H PRN; Protocol PRN Reason: Pain, Severe (Pain Scale 7-10) Last Admin: 12/01/22 09:44 Dose: 0.5 mg Documented By: TAINA Ceftriaxone Sodium 1 gm/ (Sodium Chloride) 50 mls @ 100 mls/hr IV Q24H REPLACED BY [facility] Last Infusion: 11/30/22 20:16 Dose: 0 mls/hr Documented By: FAHEEM Dextrose (D10) 250 mls @ 750 mls/hr IV Q15M PRN; Protocol PRN Reason: per Hypoglycemia Standing Ord. Potassium Chloride/Sodium Chloride (Kcl 20 Meq In 0.9 % Sodium Chl) 20 meq in 1,000 mls @ 80 mls/hr IVCONT .[id number] REPLACED BY [facility] Last Admin: 12/01/22 02:47 Dose: 80 mls/hr Documented By: FAHEEM Insulin Human Lispro (Insulin Lispro 100 Unit/Ml 3 Ml Vial) 0 unit SUBCUT QIDACHS REPLACED BY [facility]; Protocol Last Admin: 12/01/22 07:56 Dose: 12 unit Documented By: TAINA Lamotrigine (Lamotrigine 100 Mg Tablet) 200 mg PO BID REPLACED BY [facility] Last Admin: 12/01/22 07:59 Dose: 200 mg Documented By: TAINA Lorazepam (Lorazepam 1 Mg Tablet) 1 mg PO TID PRN PRN Reason: Anxiety Last Admin: 12/01/22 07:58 Dose: 1 mg Documented By: TAINA Metoclopramide HCl (Metoclopramide Hcl 10 Mg/2 Ml Vial) 5 mg IVPUSH Q6H PRN PRN Reason: Nausea Last Admin: 11/30/22 19:42 Dose: 5 mg Documented By: FAHEEM Metoprolol Tartrate (Metoprolol Tartrate 25 Mg Tablet) 25 mg PO BID REPLACED BY [facility]; Protocol Last Admin: 12/01/22 07:58 Dose: 25 mg Documented By: TAINA Omeprazole (Omeprazole 20 Mg Capsule.) 20 mg PO BID@0630,1630 REPLACED BY [facility] Last Admin: 12/01/22 06:19 Dose: 20 mg Documented By: FAHEEM Pharmacy Consult (Consult Rx Perform Med Rec) 1 each MISCELLANE ONCE PRN PRN Reason: Consult order Prochlorperazine Edisylate (Prochlorperazine Edisylate 10 Mg/2 Ml Vial) 5 mg IVPUSH Q4H PRN PRN Reason: Nausea and Vomiting Last Admin: 12/01/22 03:49 Dose: 5 mg Documented By: FAHEEM Risperidone (Risperidone 2 Mg Tablet) 2 mg PO BID REPLACED BY [facility] Last Admin: 12/01/22 07:58 Dose: 2 mg Documented By: TAINA Sodium Chloride (0.9 % Sodium Chloride Flush 3 Ml Syringe) 3 ml IVFLUSH QSHIFT REPLACED BY [facility] Last Admin: 12/01/22 07:59 Dose: 3 ml Documented By: TAINA Zolpidem Tartrate (Zolpidem Tartrate 5 Mg Tablet) 10 mg PO BEDTIME REPLACED BY [facility] Last Admin: 11/30/22 21:22 Dose: 10 mg Documented By: FAHEEM Labs 12/01/22 06:18 12/01/22 06:18 Labs: Laboratory Results - last 24 hr 11/30/22 11/30/22 12/01/22 16:40 20:23 03:46 MCV MCH MCHC RDW Plt Count MPV Absolute Nucleated RBC Nucleated RBC % (auto) Anion Gap Estim Creat Clear Calc Estimated GFR POC Glucose 261 H 198 H 217 H Random Glucose Calcium 12/01/22 12/01/22 12/01/22 06:18 06:18 07:10 MCV 84.3 MCH 27.5 MCHC 32.6 RDW 14.3 Plt Count 469 H MPV 8.7 L Absolute Nucleated RBC 0.000 Nucleated RBC % (auto) 0.0 Anion Gap 18 Estim Creat Clear Calc 67.5 Estimated GFR 55 POC Glucose 352 H* Random Glucose 345 H Calcium 8.4 12/01/22 11:13 MCV MCH MCHC RDW Plt Count MPV Absolute Nucleated RBC Nucleated RBC % (auto) Anion Gap Estim Creat Clear Calc Estimated GFR POC Glucose 263 H Random Glucose Calcium Assessment and Plan (1) Sinus tachycardia: Status: Acute (2) Lactic acidosis: Status: Acute (3) Hypomagnesemia: Status: Acute (4) UTI (urinary tract infection): Status: Acute Plan 39-year-old female with past medical history of diabetes, gastroparesis, p resents to the hospital complaints of nausea vomiting, abdominal pain, as well as urinary symptoms found to have sepsis #? sepsis due to acute pyelonephritis persistent nausea, no CVA tenderness, WBC Improved but remains elevated,blood cultures x2 no growth times 48 hours -? abdomen pelvic CT shows no evidence of acute abnormality -? has no evidence of pneumonia, urine culture E coli -? continue IV ceftriaxone day 4 , will transition to by mouth when nausea improves #? acute nausea ,vomiting abdominal pain diarrhea resolved continue diabetic diet -? possibly multifactorial in the setting of diabetic gastroparesis as well as acute infection -? continue anti emetics, ppi, recommend out of bed to chair and ambulation #? hypo magnesium -? repleted, repeat magnesium 2 # hypokalemia resolved #? lactic acidosis -? secondary to above, resolved with IV fluids #? tachycardia -? has history of sinus tachycardia, continue metoprolol tachycardia improving , #? diabetes -? on diabetic diet, DC insulin pump follow blood sugars and and chest insulin sliding scale #? history of gastroparesis -? improving, continue antiemetics, IVF and ppi ?DVT prophylaxis:? Lovenox ?given patient's need for IV antibiotics in the setting of sepsis and IV fluid for persistent nausea vomiting and IV antibiotics patient will require continued inpatient hospital stay for further management and monitoring Time Spent With Patient Time: Total time managing care of this patient today ____ minutes. Quality Stroke Does the patient have a stroke diagnosis?: No VTE Prior VTE?: No VTE Risk Level:: Medical - moderate - high VTE Device Contraindication: Treatment Not Indicated VTE Drug Contraindication: N/A - Med Ordered
[2022-12-01] MEDS: Metoclopramide HCl 10 MG/2 ML VIAL 5 MG IVPUSH (13:18)
[2022-12-01 15:40] LABS: Glucose, Whole Blood 159 mg/dL (60-115)
[2022-12-01 19:33] LABS: Glucose, Whole Blood 239 mg/dL (60-115)
[2022-12-01] MEDS: Zolpidem Tartrate 5 MG TABLET 10 MG PO (21:21)
[2022-12-01] MEDS: cefTRIAXone sodium 1 GM in 0.9 % Sodium Chloride 50 ML IV (22:21)
[2022-12-01] MEDS: Enoxaparin Sodium 40 MG/0.4 ML SYRINGE SUBCUT (23:37)
[2022-12-02] VITALS: BP 142/67; PULSE 106; RESP 18; TEMP 36.8; O2SAT 99
[2022-12-02 03:40] VITALS: BP 121/73; PULSE 95; RESP 18; TEMP 36.6; O2SAT 99
[2022-12-02] MEDS: KCl 20 mEq in 0.9 % Sodium ChL 20 MEQ/1,000 ML IV.SOLN 80 MEQ IVCONT (03:51)
[2022-12-02] MEDS: Prochlorperazine Edisylate 10 MG/2 ML VIAL 5 MG IVPUSH ×2 (03:55→10:52)
[2022-12-02] MEDS: HYDROmorphone HCl 0.5 MG/0.5 ML SYRINGE IVPUSH (03:58)
[2022-12-02] MEDS: Omeprazole 20 MG CAPSULE.DR PO (06:31)
[2022-12-02 07:08] LABS: Hematocrit 33.9 % (37.0-47.0); Hemoglobin 11.1 g/dl (12.0-16.0); Mean Corpuscular HGB Conc 32.7 g/dl (31.0-35.0); Mean Corpuscular Hemoglobin 27.6 pg (27.0-33.0); Mean Corpuscular Volume 84.3 fL (80.0-98.0); Mean Platelet Volume 8.9 fL (9.4-12.3); Platelet Count 471 X10*3/uL (160-400); Red Blood Count 4.02 X10*6/uL (4.20-5.50); Red Cell Distribution Width 14.4 % (11.0-16.0); White Blood Count 14.2 X10*3/uL (4.8-10.8)
[2022-12-02 07:17] LABS: Glucose, Whole Blood 387 mg/dL (60-115)
[2022-12-02 07:24] VITALS: BP 137/72; PULSE 95; RESP 20; TEMP 37.1; O2SAT 97
[2022-12-02 07:54] LABS: Anion Gap 18 (12-20); Blood Urea Nitrogen 12 mg/dL (9-16); Calcium 8.7 mg/dL (8.4-10.2); Carbon Dioxide 18 mmol/L (22-29); Chloride 102 mmol/L (96-108); Creatinine Clr Calc Pharmacy 70.1; Estimated Glomerular Filt Rate 58; Potassium 3.9 mmol/L (3.3-5.1); Sodium 134 mmol/L (135-145)
[2022-12-02] MEDS: Midodrine HCl 5 MG TABLET PO (07:54)
[2022-12-02] MEDS: Metoprolol Tartrate 25 MG TABLET PO (07:55)
[2022-12-02] MEDS: LORazepam 1 MG TABLET PO (07:55)
[2022-12-02] MEDS: Metoclopramide HCl 10 MG/2 ML VIAL 5 MG IVPUSH (07:55)
[2022-12-02] MEDS: risperiDONE 2 MG TABLET PO (07:55)
[2022-12-02] MEDS: Insulin Lispro 100 UNIT/ML 3 ML VIAL SUBCUT ×2 (07:56→12:10)
[2022-12-02] MEDS: 0.9 % Sodium Chloride Flush 3 ML SYRINGE IVFLUSH (07:57)
[2022-12-02] MEDS: lamoTRIgine 100 MG TABLET 200 MG PO (08:00)
[2022-12-02 08:06] LABS: Glucose Random 395 mg/dL (60-115)
[2022-12-02 11:09] LABS: Glucose, Whole Blood 255 mg/dL (60-115)
[2022-12-02 11:19] VITALS: BP 116/75; PULSE 87; RESP 20; TEMP 36.9; O2SAT 99
--- NOTE | 2022-12-02 11:34 | PM.DS ---
DS: Providers Provider Date of Service: 12/02/22 Date of admission: 11/27/22 23:38 Primary care physician: Yulisa Avila MD DS: Diagnosis Discharge Diagnosis (1) Sinus tachycardia: Status: Acute (2) Lactic acidosis: Status: Acute (3) Hypomagnesemia: Status: Acute (4) UTI (urinary tract infection): Status: Acute DS: Summary Hospital Course Hospital Course: History of presenting illness: Date of Service: 11/27/22 Chief Complaint: abd pain, N/V 47-year-old female with past medical history of diabetes, GERD, CAD, diabetic ketoacidosis, diabetic gastroparesis, bipolar disorder presents to the hospital with complaints of nausea vomiting and lower abdominal pain. ? pain started about 1 week ago, associated with nausea and vomiting, 8/10, localized to the suprapubic region, radiating to the right flank, has no fever some chills, nonbloody diarrhea, no chest pain, no palpitations, no shortness of breath, has urinary frequency? Urgency and dysuria., no lower extremity edema. On arrival to the ED patient found to have tachycardia, blood pressure stable labs are significant for? WBC count of 17,000, magnesium of 1.5, lactic acid of 2.4, improved after IV fluids, UA positive for leukocyte Estrace, WBC, and bacteria, patient started on IV antibiotics and will be admitted for further management Hospital course: 39-year-old female with past medical history of diabetes, gastroparesis, presents to the hospital complaints of nausea vomiting, abdominal pain, as well as urinary symptoms found to have sepsis #? sepsis due to acute pyelonephritis, nausea and abdominal pain resolved, WBC improved but fluctuating likely reactive stress-induced, blood cultures x2 negative urine culture grew E coli sensitive to ceftriaxone, CT abdomen and pelvis showed no acute abnormality patient receive 5 days of IV ceftriaxone now being discharged on by mouth Ceftin 250 mg b.i.d. to finish total 10 day course of antibiotic #? acute nausea ,vomiting and abdominal pain? possibly multifactorial in the setting of diabetic gastroparesis as well as acute infection, all symptoms resolved continue Prilosec and antiemetics. #? hypo magnesium-? repleted, repeat magnesium 2 #? hypokalemia? resolved #? lactic acidosis -? secondary to above, resolved with IV fluids #? tachycardia -? has history of sinus tachycardia,? continue metoprolol tachycardia resolved #? diabetes continue diabetic diet and insulin pump #? history of gastroparesis continue home dose of antiemetics and PPI Time Spent with Patient Time attestation: Total time managing care of this patient today ____ minutes. Discharge coordination time: Greater than 30 minutes Quality: Safe Use of Opioids Does Pt have an Active Cancer Diagnosis on the Problem List?: No Quality: Stroke Does the patient have a stroke diagnosis?: No Physical Exam Vital Signs: Vital Signs: Last Vital Signs Temp 98.5 F 12/02/22 11:19 Pulse 87 12/02/22 11:19 Resp 20 12/02/22 11:19 BP 116/75 12/02/22 11:19 Pulse Ox 99 12/02/22 11:19 O2 Del Method Room Air 12/02/22 11:19 BMI result Body Mass Index 29.1 Const: Other: General? awake alert, in no distress.? Neck? supple no JVD. CVS? regular rate rhythm, Respiratory lungs clear to auscultation, no respiratory distress, no wheeze, no rhonchi. Gastrointestinal abdomen soft,?nontender , bowel sounds audible,? no distension, no guarding , no rigidity. Extremities no? edema. back no CVA tenderness Neuro nonfocal Skin no rash psych appropriate affect DS: Data Data Completed and Pending Labs on day of discharge: Laboratory Results - last 24 hr 12/01/22 12/01/22 12/02/22 15:35 19:29 06:50 WBC 14.2 H RBC 4.02 L Hgb 11.1 L Hct 33.9 L MCV 84.3 MCH 27.6 MCHC 32.7 RDW 14.4 Plt Count 471 H MPV 8.9 L Absolute Nucleated RBC 0.000 Nucleated RBC % (auto) 0.0 Sodium Potassium Chloride Carbon Dioxide Anion Gap BUN Creatinine Estim Creat Clear Calc Estimated GFR POC Glucose 159 H 239 H Random Glucose Calcium 12/02/22 12/02/22 12/02/22 06:50 07:12 11:05 WBC RBC Hgb Hct MCV MCH MCHC RDW Plt Count MPV Absolute Nucleated RBC Nucleated RBC % (auto) Sodium 134 L Potassium 3.9 Chloride 102 Carbon Dioxide 18 L Anion Gap 18 BUN 12 Creatinine 1.02 Estim Creat Clear Calc 70.1 Estimated GFR 58 POC Glucose 387 H* 255 H Random Glucose 395 H* Calcium 8.7 Preliminary micro results at discharge 11/27/22 18:18 Blood Culture - Preliminary Blood - Venous No growth after 48 hours. 11/27/22 18:04 Blood Culture - Preliminary Blood - Venous No growth after 48 hours. Discharge Plan Discharge Anticipated Discharge Date/Time: 12/02/22 11:22 Patient Disposition: Home, Self-Care Discharge Diagnosis: Sepsis due to acute pyelonephritis be Referrals: Yulisa Dyson MD [Primary Care Provider] - 1 Week Discharge Medications: New cefuroxime axetil 250 mg Tablet 250 mg PO Q12H Qty: 10 0RF Continued midodrine 5 mg tablet 5 mg PO DAILY Qty: 90 2RF albuterol sulfate 90 mcg/actuation HFA aerosol inhaler 1 puff PO Q4H PRN (Reason: for wheezing) Qty: 8.5 2RF metoprolol tartrate 25 mg tablet 25 mg PO BID Qty: 180 0RF ondansetron 4 mg tablet,disintegrating 4 mg PO BID PRN (Reason: nausea and vomiting) Qty: 14 0RF insulin aspart U-100 [Novolog FlexPen U-100 Insulin] 100 unit/mL (3 mL) insulin pen 0 unit subcut DIRECTED Rx Instructions: INSULIN PUMP lorazepam 1 mg Tablet 1 mg PO TID PRN (Reason: Anxiety) lamotrigine 200 mg Tablet 200 mg PO BID zolpidem 10 mg Tablet 10 mg PO BEDTIME risperidone 2 mg tablet 1 tab PO BID omeprazole 20 mg capsule,delayed release(DR/EC) 20 mg PO BID Qty: 180 3RF Discharge Orders: Discharge Order (Routine); Ordered 12/02/22 Ordered By: Asuncion Whipple Diet: Diabetic diet Activity on Discharge: As tolerated Stand Alone Forms: Patient Portal Discharge page Care Plan Goals: Acute pyelonephritis take by mouth Ceftin 1 tablet twice daily for 5 more days drink plenty of fluids. ch gastroparesis take home medications Health Concerns: Diabetes resume insulin pump Plan of Treatment: Outpatient follow-up with primary care physician call for an appointment. Assessment: As above
--- NOTE | 2022-12-02 11:46 | MHC.CM.PN ---
Patient has been medically cleared for dc to home today, self care. CM met with Patient at bedside and addressed IMM with her, providing Patient with the original and placing a copy on the chart.
--- NOTE | 2022-12-03 07:23 | P.CDIM_ITS ---
PROVIDER RESPONSE TEXT: To clarify, the appropriate diagnosis supported by the clinical indicators: Acute, now resolved QUERY TEXT: PHYSICIAN'S DOCUMENTATION REQUEST Date of Query: 11/30/2022 02:00 PM EDT Patient Name: Yumiko Sena Admit Date: 11/28/2022 Dear Asuncion Whipple, A review of the medical record indicates additional documentation may be needed. Please review below and update the documentation accordingly. Clinical Indicators: Per Hospitalist Progress Note 11/30/22: lactic acidosis - secondary to above, resolved with IV fluids LA on 11/27/22: 2.4, 1.8 Clarify which of the following accurately represents the acuity of the Lactic Acidosis. Possible options might include: Acute, now resolved Acute on chronic Compensated Chronic stable condition Remission Other (explain)Clinically unable to determine (explain)Thank you, Natalya Gonzalez RN Use of terms such as suspected, likely, concern for, or probable (associated with a specific diagnosi s that is being evaluated, monitored, or treated as if it exists) are acceptable and can be coded in the inpatient se tting, when documented at the time of discharge. Please use your independent medical judgment in providing your response. THIS QUERY IS PART OF THE PERMANENT MEDICAL RECORD
== END 2022-12-02 13:53 | disposition home or self-care (01) | DRG 872 ==
LOC: HO.ED 21:58 → HO.EDOVER 23:46 → HO.IMC 11-28 00:32
PROVIDERS: Admitting Provider Internal Medicine; Emergency Provider Emergency Medicine; PCP Internal Medicine; Visit Provider Hospitalist
DX: A41.9 Sepsis, unspecified organism (principal); E87.21 Acute metabolic acidosis; N10 Acute pyelonephritis; E83.42 Hypomagnesemia; E10.43 Type 1 diabetes mellitus with diabetic autonomic (poly)neuropathy; R00.0 Tachycardia, unspecified; T44.7X6A Underdosing of beta-adrenoreceptor antagonists, initial encounter; B96.20 Unspecified Escherichia coli [E. coli] as the cause of diseases classified elsewhere; K31.84 Gastroparesis; E87.6 Hypokalemia; F31.9 Bipolar disorder, unspecified; I25.2 Old myocardial infarction; Z87.440 Personal history of urinary (tract) infections; Z87.891 Personal history of nicotine dependence; Z88.5 Allergy status to narcotic agent; Z79.899 Other long term (current) drug therapy
CPT/HCPCS: 36415; 74176; 80048; 80053; 80076; 80143; 80179; 80307; 81001; 82009; 82140; 82550; 82803; 82947; 83605; 83690; 83735; 84443; 84484; 84702; 85025; 85027; 85610; 87040; 87086; 87088; 87186; 93005; 99285; J0696; J1170; J1650; J1885; J2405; J2765; J3475

== ENCOUNTER 2023-02-19 17:33 | Emergency (ER) | payer OTHER, SELFPAY ==
[2023-02-19 17:46] VITALS: BP 107/65; PULSE 86; RESP 18; TEMP 36.9; O2SAT 98; BMI 28.6
--- NOTE | 2023-02-19 17:48 | ED_ITS ---
HPI - General Adult General Chief complaint: General Medical Stated complaint: Port removal Time Seen by Provider: 02/19/23 17:53 Source: patient Mode of arrival: ambulatory Limitations: no limitations History of Present Illness HPI narrative: 47 yo female with history of DM1, hx DKA, hx diabetic gastroparesis, GERD, anxiety, who presents to the ER for her port to be de-accessed. It has been accessed since her last admission to [facility] in November. She was discharged with it accessed. She states has had no issues with it but would like it de-accessed. She spoke with Oncology today who advised her to come to the ER for this. She denies any redness or drainage from the area. No fever, chills, or pain. MD complaint: port-deaccess Location: chest Radiation: non-radiation Severity: mild Quality: other ( discomfort ) Pain Consistency: intermittent Relieving factors: none Exacerbating factors: none Associated symptoms: denies other symptoms Treatments prior to arrival: none Related Data Home Medications Medication Instructions Recorded Confirmed lamotrigine 200 mg tablet 200 mg PO BID 05/11/20 11/27/22 lorazepam 1 mg tablet 1 mg PO TID PRN Anxiety 05/11/20 11/27/22 zolpidem 10 mg tablet 10 mg PO BEDTIME 05/11/20 11/27/22 insulin aspart U-100 100 unit/mL 0 unit subcut DIRECTED 06/01/20 11/27/22 (3 mL) subcutaneous pen (Novolog FlexPen U-100 Insulin aspart) risperidone 2 mg tablet 1 tab PO BID 09/13/21 11/27/22 Previous Rx's Medication Instructions Recorded omeprazole 20 mg capsule,delayed 20 mg PO BID #180 caps 06/26/22 release ondansetron 4 mg disintegrating 4 mg PO BID PRN nausea and 11/12/22 tablet vomiting #14 tabs cefuroxime axetil 250 mg tablet 250 mg PO Q12H #10 tabs 12/02/22 midodrine 5 mg tablet 5 mg PO DAILY #90 tabs 12/06/22 albuterol sulfate 90 mcg/actuation 1 puff PO Q4H PRN for wheezing 12/10/22 aerosol inhaler #8.5 grams metoprolol tartrate 25 mg tablet 25 mg PO BID #180 tabs 01/26/23 Allergies Allergy/AdvReac Type Severity Reaction Status Date / Time morphine [MORPHINE] Allergy Intermediate RASH, Verified 10/23/22 13:04 hives, hives mushroom Allergy Intermediate HIVES/RASH Verified 10/23/22 13:04 mushroom Allergy Unknown throat Uncoded 10/23/22 13:04 closes up/difficult breathing mushrooms Allergy Unknown anaphylaxis Uncoded 10/23/22 13:04 Review of Systems Review of Systems: Yes all other systems are reviewed and are negative [facility] Past Medical History Medical History Anxiety Bipolar 1 disorder Diabetes Diabetic gastroparesis Gastroparesis Herpes zoster NSTEMI (non-ST elevated myocardial infarction) Pancreatitis Recurrent UTI Status post fall Surgical History H/O pyloroplasty H/O: hysterectomy History of appendectomy History of cholecystectomy History of ERCP History of tonsillectomy Social History Social History Household Members: Spouse Housing: Unknown / Unable to assess Do you presently have visiting nurse or other home services: No (unknown) Unable to assess alcohol history related to: Unknown Alcohol intake: never Patient Tobacco Use Status: Former Tobacco user Tobacco use type: Cigarette e-Cigarette/Vaping Use: Never Used Second Hand Smoke Exposure: No Substance Use Type: Marijuana service: No Current occupational status: disabled Cognitive needs: No Hearing needs: No Vision needs: No Physical Exam ED Vital Signs: Vital Signs - 24 hr 02/19/23 17:46 Temperature 98.4 F Pulse Rate 86 Respiratory Rate 18 Blood Pressure 107/65 Pulse Oximetry 98 Oxygen Delivery Method Room Air BMI result Body Mass Index 28.6 Appearance: Alert. Oriented X3. No acute distress. HEENT: normal inspection CVS: Normal heart rate and rhythm. Pulses normal. right anterior chest wall with port in place, access in place w/ tape over it. no surrounding erythema. Respiratory: No respiratory distress. Skin: Skin warm and dry. Normal skin color. Normal skin turgor. No rashes. Extremities: normal inspection Neuro: Oriented X 3. grossly normal Medical Decision Making Medical Decision Making MDM Narrative: 47 yo female presenting to the ER for port de-accessing. has been accessed since November, she was discharged from this hospital with her port accessed. no evidence of infection. successful de-accessing in triage by nursing. DSD applied. stable for d/c home. Differential Diagnosis Differential Diagnoses: The differential diagnosis associated with the presentation includes port de-access, cellulitis External Record Review External record reviewed: Inpatient record discharged 12/[address] Whipple Chronic Conditions Patient?s care impacted by: Other (difficult IV access requiring a port a cath) Critical Care Time Critical Care Time Critical Care Time: No Discharge Plan Discharge Clinical Impression: Encounter for deaccessing implanted intravenous port Patient Disposition: Home, Self-Care Additional Instructions: your port was de-accessed today in the ER follow up with your PCP as needed If you develop new or worsening symptoms call 911 or come back to the ER for further evaluation. Prescriptions: No Action ondansetron 4 mg tablet,disintegrating 4 mg PO BID PRN (Reason: nausea and vomiting) Qty: 14 0RF midodrine 5 mg tablet 5 mg PO DAILY Qty: 90 2RF albuterol sulfate 90 mcg/actuation HFA aerosol inhaler 1 puff PO Q4H PRN (Reason: for wheezing) Qty: 8.5 2RF metoprolol tartrate 25 mg tablet 25 mg PO BID Qty: 180 0RF insulin aspart U-100 [Novolog FlexPen U-100 Insulin] 100 unit/mL (3 mL) insulin pen 0 unit subcut DIRECTED Rx Instructions: INSULIN PUMP lorazepam 1 mg Tablet 1 mg PO TID PRN (Reason: Anxiety) lamotrigine 200 mg Tablet 200 mg PO BID zolpidem 10 mg Tablet 10 mg PO BEDTIME risperidone 2 mg tablet 1 tab PO BID cefuroxime axetil 250 mg Tablet 250 mg PO Q12H Qty: 10 0RF omeprazole 20 mg capsule,delayed release(DR/EC) 20 mg PO BID Qty: 180 3RF
== END 2023-02-19 18:06 | disposition home or self-care (01) ==
LOC: HO.ED 18:03
PROVIDERS: Emergency Provider Internal Medicine; PCP Internal Medicine
DX: M79.10 Myalgia, unspecified site (principal); Z87.891 Personal history of nicotine dependence; Z79.899 Other long term (current) drug therapy
CPT/HCPCS: 99282

== ENCOUNTER 2023-04-18 14:44 | Outpatient (AMB) | payer OTHER, SELFPAY ==
[2023-04-18 14:52] VITALS: BP 104/70; PULSE 80; BMI 27.8
--- NOTE | 2023-04-18 14:52 | MHC.PC.OV ---
Vital Signs 04/18/23 14:52 Height 5 ft 6.5 in Weight 175 lb BMI 27.8 BP 104/70 Blood Pressure Location Lt brachial Position Sitting Pulse 80 Pulse Source Pulse Oximeter Temp Source Skin Oxygen Delivery Method Room Air Intake Visit Reasons: physical exam Intake Note: Patient is here today for a physical. Filter Filler Required: No Allergies morphine [MORPHINE] Allergy (Intermediate, Verified 04/18/23 15:08) RASH, hives, hives mushroom Allergy (Intermediate, Verified 04/18/23 15:08) HIVES/RASH mushroom Allergy (Unknown, Uncoded 04/18/23 15:08) throat closes up/difficult breathing mushrooms Allergy (Unknown, Uncoded 04/18/23 15:08) anaphylaxis Medication List - Last Reconciled 04/18/23 by LAWRENCE Owen albuterol sulfate 90 mcg/actuation 1 puff PO Q4H PRN insulin aspart U-100 (Novolog FlexPen U-100 Insulin aspart) INSULIN PUMP lamotrigine 200 mg PO BID lorazepam 1 mg PO TID PRN metoprolol tartrate 25 mg PO BID midodrine 5 mg PO DAILY omeprazole 20 mg PO BID ondansetron 4 mg PO BID PRN risperidone 1 tab PO BID zolpidem 10 mg PO BEDTIME Tobacco use date assessed: 04/18/23 Dental Screening Dental Screen Date: 04/18/23 Did you have a dental visit in the last 12 months?: No Did you have a dental problem in the last 6 months where you did not have access to dental care?: No Was dental information given to patient?: Patient has dentist HPI physical exam HPI Details Patient is a 47-year-old female presents today for physical exam. Patient of Dr. Zaragoza. Medical history significant for history of NSTEMI on metopralol - does not see Cardiology, diabetes type 1-followed by [facility] endocrinology- has insulin pump, diabetic gastroparesis-was seen by [facility] GI although lost contact and would like referral, bipolar disorder-followed by Psychiatry and therapist at . Patient is compliant with medications and denies side effects. Patient reports ongoing intermittent abdominal pain and nausea worse in the morning. Patient also reports urinary frequency and odor for the past couple months, reports last UTI 11/2022. In addition, patient reports intermittent sweating on her face after she eats for many years now and worsening about 2 years ago, patient was encouraged to complete her blood work. Today we discussed patient's need for colon cancer screening, mammogram, and tetanus vaccine. Patient reports colonoscopy about 10 years ago. Patient will call for diabetic eye exam. History of hysterectomy about 15 years ago, does not get Pap smears anymore. Patient denies shortness of breath or chest pain. [facility] Medical History (Updated 04/18/23 @ 15:58 by LAWRENCE Owen) Diabetic gastroparesis Herpes zoster Status post fall Recurrent UTI NSTEMI (non-ST elevated myocardial infarction) Diabetic gastroparesis Anxiety Bipolar 1 disorder Pancreatitis Gastroparesis Diabetes Surgical History History of cholecystectomy History of tonsillectomy History of ERCP H/O pyloroplasty History of appendectomy H/O: hysterectomy Social History Household Members: Spouse Housing: Unknown / Unable to assess Do you presently have visiting nurse or other home services: No (unknown) Unable to assess alcohol history related to: Unknown Alcohol intake: never Patient Tobacco Use Status: Former Tobacco user Tobacco use type: Cigarette e-Cigarette/Vaping Use: Never Used Second Hand Smoke Exposure: No Substance Use Type: Marijuana service: No Current occupational status: disabled Cognitive needs: No Hearing needs: No Vision needs: No Questionnaire PHQ-9 Over the last 2 weeks, how often have you been bothered by any of the following problems? 1. Little interest or pleasure in doing things: not at all 2. Feeling down, depressed, or hopeless: several days 3. Trouble falling or staying asleep, or sleeping too much: not at all 4. Feeling tired or having little energy: not at all 5. Poor appetite or overeating: not at all 6. Feeling bad about yourself - or that you are a failure or have let yourself or your family down: not at all 7. Trouble concentrating on things, such as reading the newspaper or watching television: not at all 8. Moving or speaking so slowly that other people could have noticed. Or the opposite - being so fidgety or restless that you have been moving around a lot more than usual: not at all 9. Thoughts that you would be better off or of hurting yourself in some way: not at all Total score: 1 Depression Screening Interpretation: Negative Depression Screening Done: Yes 92850 - PHQ-9 Billing: Yes Source: Developed by Drs. Anton Guillen, Hamida Wright, Kumar Reynoso and colleagues, with an educational sophia from [employer]. Thrive Questionnaire Date Thrive assessed: 10/23/22 AUDIT C Alcohol Use Questionnaire (AUDIT-C) 1. How often do you have a drink containing alcohol?: Never Total Score: 0 Score Reviewed/Action Taken: No ANA-7 AMB Questionnaire ANA-7 Date ANA - 7 assessed: 04/18/23 (pt is taking RX) Feeling nervous, anxious, or on edge: 0 = Not at all Not being able to stop or control worryin = Not at all Worrying too much about different things: 0 = Not at all Trouble relaxin = Not at all Being so restless that it is hard to sit still: 0 = Not at all Becoming easily annoyed or irritable: 0 = Not at all Feeling afraid as if something awful might happen: 0 = Not at all Total ANA-7 score (0-4 normal; 5-9 mild; 10-14 moderate; 15-21 severe): 0 Source: Developed by Drs. Anton Guillen, Hamida Wright, Kumar Reynoso and colleagues, with an educational sophia from [employer]. ANA-7 Assessment Billing ANA-7 Assessment Tool: ANA-7 Assessment 31883 Review of Systems Const Denies body aches, Denies chills, Denies fever(s) and Denies headache(s) Eyes Denies change in vision ENT Denies dizziness, Denies otalgia, Denies headache(s), Denies nasal discharge, Denies sinus pain and Denies sore throat Card Denies chest pain, Denies edema, Denies lightheadedness and Denies dyspnea Resp Denies cough and Denies dyspnea GI Reports abdominal pain (Intermittent), Denies constipation, Denies diarrhea, Reports nausea (Intermittent) and Denies vomiting Reports as per HPI and Denies dysuria Musc Denies myalgias Skin/Breast Denies lesions and Denies rash Neuro Denies dizziness and Denies headache(s) Physical exam (Primary Care) Vital Signs: Last Vital Signs Pulse 80 04/18/23 14:52 BP 104/70 04/18/23 14:52 Oxygen Delivery Method Room Air 04/18/23 14:52 BMI result Body Mass Index 27.8 Tobacco/Smoking Status: Tobacco use Status Tobacco use date assessed 04/18/23 04/18/23 14:53 Patient Tobacco Use Status Former Tobacco user 04/18/23 14:53 Tobacco use type Cigarette 04/18/23 14:53 e-Cigarette/Vaping Use Never Used 04/18/23 14:53 PHQ-9: PHQ-9 Score PHQ-9: Total score 1 04/18/23 15:37 Depression Screening Interpretation: Negative Thrive Assessment: Date of Thrive Assessment Date Thrive assessed 10/23/22 04/18/23 14:53 Const General: cooperative and no acute distress Orientation/consciousness: patient oriented x3 HENMT Head: Yes normocephalic and Yes atraumatic Ears: TM's normal bilaterally Face and sinus: Yes sinuses nontender Mouth: oropharynx normal and moist mucous membranes Throat: Yes posterior oropharynx normal Eyes General: appearance normal, both eyes and all related structures Pupils: Equal, round and reactive pupils present EOM: EOMs intact bilaterally Neck Neck: Yes normal visual inspection, Yes full ROM and Yes no lymphadenopathy Thyroid: Thyroid normal Resp Effort & Inspection: normal respiratory effort and able to speak in complete sentences Auscultation: clear to auscultation bilaterally, no crackles, no rales, no rhonchi and no wheezes Cardio Rate: regular rate Rhythm: regular rhythm Heart sounds: S1 normal heart sound present, S2 normal heart sound present and no murmurs GI Palpation (GI): Soft to palpation, not firm, Tenderness to palpation present (GI) (Mild generalized abdomen) with no rebound tenderness, no guarding, not rigid and no hepatosplenomegaly Auscultation: normal bowel sounds General: No CVA tenderness Back/Spine/Pelvis Back: No CVA tenderness Skin General skin exam: no rashes or lesions noted Neuro General: patient oriented x3 Cranial nerves: Yes Equal, round and reactive pupils present Gait exam (Neuro): Normal gait present Extrem General: Yes full ROM and No edema Office Procedures Flu Questionnaire Does the patient have a severe egg allergy?: No Does the patient have severe life threatening allergies?: No Does the patient have a fever or illness today?: No Has the patient ever had Guillain-[place]ber[place] Syndrome?: No Has the patient ever had any past reaction to a flu shot?: No Results AMB Hemoglobin A1c AMB Hemoglobin A1c 7.7 % Last Edit by YIMI Crews on 04/18/23 15:08 AMB Urinalysis, Automated UA Leukoctes 500 Gabriela/uL Last Edit by YIMI Crews on 04/18/23 15:10 UA Nitrite Negative Last Edit by YIMI Crews on 04/18/23 15:10 UA Urobilinogen 0.2 mg/dL Last Edit by YIMI Crews on 04/18/23 15:10 UA Protein 0 mg/dL Last Edit by YIMI Crews on 04/18/23 15:10 UA pH 6.0 Last Edit by YIMI Crews on 04/18/23 15:10 UA Blood 1 Florencio/uL Last Edit by YIMI Crews on 04/18/23 15:10 UA Specific [place] 1.010 Last Edit by YIMI Crews on 04/18/23 15:10 UA Ketone Negative Last Edit by YIMI Crews on 04/18/23 15:10 UA Bilirubin 0 mg/dL Last Edit by YIMI Crews on 04/18/23 15:10 UA Glucose 0 mg/dL Last Edit by YIMI Crews on 04/18/23 15:10 Immunizations flu vacc [id number] 6mos up(PF) 60 mcg(15 mcgx4)/0.5 mL IM syringe Performing Provider: LAWRNECE Owen [place] [facility] [place] [facility] Administered by: YIMI Crews on 04/18/23 15:25 Dose Route Admin Location Dispensed Lot Number Expiration Date NDC Acid Tank Cleaner 0.5 mL IM Right Deltoid 0.5 mL [id number] 01/12/24 26243-774-61 [employer] VIS Given Date VIS Provided VIS Publication Date 04/18/23 Single Vaccine 21 Eligibility Eligibility Date Funding Source Not VFC Eligible 04/18/23 Private Boostrix Tdap 2.5 Lf unit-8 mcg-5 Lf/0.5 mL intramuscular syringe Performing Provider: LAWRENCE Owen [place] [facility] [place] [facility] Administered by: YIMI Crews on 04/18/23 15:25 Dose Route Admin Location Dispensed Lot Number Expiration Date NDC Acid Tank Cleaner 0.5 mL IM Left Deltoid 0.5 mL [id number] 06/19/25 [id number] [employer] VIS Given Date VIS Provided VIS Publication Date 04/18/23 Single Vaccine 21 Eligibility Eligibility Date Funding Source Not VFC Eligible 04/18/23 Private Results Reviewed Results Reviewed: Laboratory Last Values Hgb A1c (Clinic) 7.7 % (4.0-6.0) H 04/18/23 15:08 Urine pH (Auto) 6.0 04/18/23 15:08 Specific [place] (Auto) 1.010 04/18/23 15:08 Urine Protein (Auto) 0 mg/dL 04/18/23 15:08 Glucose (UA)(Auto) 0 mg/dL 04/18/23 15:08 Urine Ketones (Auto) Negative 04/18/23 15:08 Urine Blood (Auto) 1 Florencio/uL 04/18/23 15:08 Urine Nitrite (Auto) Negative 04/18/23 15:08 Urine Bilirubin (Auto) 0 mg/dL 04/18/23 15:08 Urine Urobilinogen (Auto) 0.2 mg/dL 04/18/23 15:08 Leukocyte Esterase (Auto) 500 Gabriela/uL 04/18/23 15:08 Assessment and Plan Assessment & Plan (1) Diabetes type 1, controlled: Code(s): E10.9 - Type 1 diabetes mellitus without complications Plan: Continue to follow-up with [facility] endocrinology-on insulin pump A1c today 7.7 Continue current treatment Low-carbohydrate diet (2) Diabetic gastroparesis: Code(s): E11.43 - Type 2 diabetes mellitus with diabetic autonomic (poly)neuropathy; K31.84 - Gastroparesis Plan: Referral to [facility] Gastroenterology - patient reports being on Reglan in the past although this was stopped her GI provider (3) Bipolar 1 disorder: Code(s): F31.9 - Bipolar disorder, unspecified Plan: Continue to follow-up with psychiatry and therapist at [facility] Continue current treatments as prescribed by Psychiatry (4) GERD (gastroesophageal reflux disease): Code(s): K21.9 - Gastro-esophageal reflux disease without esophagitis Plan: Continue omeprazole 20 mg b.i.d. Avoid GERD trigger foods Do not lay down 2-3 hours after evening meal (5) Screening for colon cancer: Code(s): Z12.11 - Encounter for screening for malignant neoplasm of colon (6) Adult general medical exam: Code(s): Z00.00 - Encounter for general adult medical examination without abnormal findings Plan: Repeat in 1 year Patient was encouraged to complete her blood work (7) UTI (urinary tract infection): Code(s): N39.0 - Urinary tract infection, site not specified Plan: Patient with urinary frequency and odor for the past couple months. Urinalysis with leukocytes and red blood cells, due to patient being symptomatic will treat with antibiotic. Increase fluid consumption. Notify office if no improvement after finishing antibiotic. Patient agreed with the plan. (8) Idiopathic hypotension: Code(s): I95.0 - Idiopathic hypotension Plan: Stable with midodrine (9) Screening for breast cancer: Code(s): Z12.39 - Encounter for other screening for malignant neoplasm of breast Plan Follow-up with PCP in 4 months or sooner as needed Orders: Orders Influenza [id number] Immunization Today Z23 - Encounter for immunization AMB Urinalysis Automated Today R30.0 - Dysuria AMB Hemoglobin A1c Today E10.9 - Type 1 diabetes mellitus without complications TDaP Immunization Today Z23 - Encounter for immunization MM tomosynthesis screening BI Today Z12.31 - Encounter for screening mammogram for malignant neoplasm of breast Referrals Gastroenterology Referral E11.43 - Type 2 diabetes mellitus with diabetic autonomic (poly)neuropathy, K31.84 - Gastroparesis, R10.9 - Unspecified abdominal pain, Z12.11 - Encounter for screening for malignant neoplasm of colon Medications: New nitrofurantoin monohyd/m-cryst 100 mg (Macrobid) must administer with a meal/food 100 mg PO Q12H 7 days 14 caps 0RF N39.0 - Urinary tract infection, site not specified Coding Level of Care Code Est Pt Prev Care 40-64y(13213) Diagnoses Diabetes type 1, controlled E10.9 Diabetic gastroparesis E11.43; K31.84 Bipolar 1 disorder F31.9 GERD (gastroesophageal reflux disease) K21.9 Screening for colon cancer Z12.11 Adult general medical exam Z00.00 UTI (urinary tract infection) N39.0 Idiopathic hypotension I95.0 Screening for breast cancer Z12.39 Additional Codes ANA-7 Assessment Billing - ANA-7 Assessment Tool: ANA-7 Assessment [id number] ([id number])
== END 2023-04-18 15:35 | disposition home or self-care (01) ==
PROVIDERS: PCP Internal Medicine; Visit Provider Nurse Practitioner Family
DX: Z00.00 Encounter for general adult medical examination without abnormal findings (principal); E11.43 Type 2 diabetes mellitus with diabetic autonomic (poly)neuropathy; F31.9 Bipolar disorder, unspecified; Z23 Encounter for immunization; R30.0 Dysuria; K31.84 Gastroparesis; K21.9 Gastro-esophageal reflux disease without esophagitis; Z12.11 Encounter for screening for malignant neoplasm of colon; N39.0 Urinary tract infection, site not specified; I95.0 Idiopathic hypotension; Z12.39 Encounter for other screening for malignant neoplasm of breast
CPT/HCPCS: 81003; 83036; 90471; 90686; 90715; 99396

== ENCOUNTER 2023-06-17 19:36 | Inpatient (IN) | payer OTHER, SELFPAY ==
--- NOTE | ~2023-06-17 | CT_ITS ---
EXAMINATION: CT ABDOMEN AND PELVIS WITHOUT CONTRAST CLINICAL INFORMATION: Abdominal pain. COMPARISON: None available. TECHNIQUE: Multidetector volumetric imaging was performed from the superior aspect of the liver through the pubic symphysis. Sagittal and coronal reformatted images were obtained on the technologist's workstation. This CT examination was performed using dose optimization techniques as appropriate, variously including the following: *Automated exposure control *Adjustment of mA and/or kV according to patient size (this includes techniques or standardized protocols for targeted exams where dose is matched to indication/reason for exam; i.e. extremities or head) *Use of iterative reconstruction technique DLP: 631 mGy-cm FINDINGS: LUNG BASES: The visualized lung bases are unremarkable. LIVER, GALLBLADDER, AND BILIARY TREE: The liver is normal in size, shape, and attenuation. No focal hepatic lesion or biliary ductal dilatation is present. There has been a prior cholecystectomy. PANCREAS: Unremarkable. SPLEEN: Unremarkable. ADRENAL GLANDS: Unremarkable. KIDNEYS AND URETERS: The kidneys are normal in size, shape, and attenuation. There are scattered 1 to 2 mm renal calculi and renal vascular calcifications. There is bilateral renal collecting system prominence and prominent ureters without ureteral calculi. BLADDER: The urinary bladder is mildly distended. There is minimal air within the urinary bladder. GASTROINTESTINAL TRACT: The small and large bowel are unremarkable. The appendix is unremarkable. ABDOMINAL WALL: No significant hernia is appreciated. LYMPH NODES: Normal. VASCULAR: Unremarkable. PELVIC VISCERA: Unremarkable. OSSEOUS STRUCTURES: Unremarkable. CT/CT abdomen pelvis wo IV con IMPRESSION: Bilateral nonobstructing renal calculi/renal vascular calcification. Mild urinary bladder distention with a small amount of air within the urinary bladder. Correlation with urinalysis needed. Prominent bilateral renal collecting systems and ureters without ureteral calculi likely related to urinary bladder distention. Fleischner guidelines were followed. Fleischner guidelines were followed.
--- NOTE | 2023-06-17 19:56 | ED_ITS ---
HPI - General Adult General Chief complaint: General Medical Stated complaint: dehydrated, vomiting x2 days Time Seen by Provider: 06/17/23 22:03 Source: patient and family () Mode of arrival: ambulatory History of Present Illness HPI narrative: 47-year-old female with a history of type 1 diabetes began vomiting since midnight last night with epigastric discomfort and has a history of gastroparesis. He otherwise denies any urinary symptoms or diarrhea Related Data Home Medications Medication Instructions Recorded Confirmed lamotrigine 200 mg tablet 200 mg PO BID 05/11/20 04/18/23 lorazepam 1 mg tablet 1 mg PO TID PRN Anxiety 05/11/20 04/18/23 zolpidem 10 mg tablet 10 mg PO BEDTIME 05/11/20 04/18/23 insulin aspart U-100 100 unit/mL 0 unit subcut DIRECTED 06/01/20 04/18/23 (3 mL) subcutaneous pen (Novolog FlexPen U-100 Insulin aspart) risperidone 2 mg tablet 1 tab PO BID 09/13/21 04/18/23 Previous Rx's Medication Instructions Recorded ondansetron 4 mg disintegrating 4 mg PO BID PRN nausea and 11/12/22 tablet vomiting #14 tabs midodrine 5 mg tablet 5 mg PO DAILY #90 tabs 12/06/22 albuterol sulfate 90 mcg/actuation 1 puff PO Q4H PRN for wheezing 12/10/22 aerosol inhaler #8.5 grams metoprolol tartrate 25 mg tablet 25 mg PO BID #180 tabs 04/15/23 nitrofurantoin 100 mg PO Q12H 7 days #14 caps 04/18/23 monohydrate/macrocrystals 100 mg capsule (Macrobid) omeprazole 20 mg capsule,delayed 20 mg PO BID #180 caps 06/07/23 release Allergies Allergy/AdvReac Type Severity Reaction Status Date / Time morphine [MORPHINE] Allergy Intermediate RASH, Verified 04/18/23 15:08 hives, hives mushroom Allergy Intermediate HIVES/RASH Verified 04/18/23 15:08 mushroom Allergy Unknown throat Uncoded 04/18/23 15:08 closes up/difficult breathing mushrooms Allergy Unknown anaphylaxis Uncoded 04/18/23 15:08 Review of Systems 2 Review of Systems: Pertinent positives and negatives as stated in HPI [facility] Past Medical History Source: nursing notes reviewed Medical History Diabetic gastroparesis Herpes zoster Status post fall Recurrent UTI NSTEMI (non-ST elevated myocardial infarction) Diabetic gastroparesis Anxiety Bipolar 1 disorder Pancreatitis Gastroparesis Diabetes Surgical History History of cholecystectomy History of tonsillectomy History of ERCP H/O pyloroplasty History of appendectomy H/O: hysterectomy Social History Social History Household Members: Spouse Housing: Unknown / Unable to assess Do you presently have visiting nurse or other home services: No (unknown) Unable to assess alcohol history related to: Unknown Alcohol intake: never Comment: sleeping Patient Tobacco Use Status: Former Tobacco user Tobacco use type: Cigarette Smoked in Last 30 Days: No e-Cigarette/Vaping Use: Never Used Second Hand Smoke Exposure: No Use of substances other than those prescribed or required for medical reasons: No Substance Use Type: Marijuana Advance Directives: Yes Advance Directives on File: Yes Advance Directives Date on File: 12/03/22 Patient : No service: No Current occupational status: disabled Cognitive needs: No Hearing needs: No Vision needs: No Physical Exam ED Vital Signs: Vital Signs - 24 hr 06/17/23 20:01 06/17/23 22:07 06/17/23 23:20 Temperature 98.0 F 97.8 F 98.1 F Pulse Rate 113 H 137 H 117 H Respiratory Rate 22 H 29 H 15 Blood Pressure 146/89 H 172/91 H 174/87 H Pulse Oximetry 99 100 96 Oxygen Delivery Method Room Air Room Air Room Air 06/18/23 02:00 Temperature 98.5 F Pulse Rate 126 H Respiratory Rate 20 Blood Pressure 166/81 H Pulse Oximetry 98 Oxygen Delivery Method Room Air BMI result Body Mass Index 29.0 VITAL SIGNS: Reviewed. GENERAL: Well developed, well nourished, in no acute distress. HEAD: Normocephalic/atraumatic EYES: PERRLA, EOMI EARS: Ext canals without abnormality NOSE: Nares patent bilateral OROPHARYNX: no oral lesions noted, posterior pharynx clear NECK: Supple, no adenopathy LUNGS: Normal breath sounds. No adventitious sounds or accessory muscle use. SpO2<100> CARDIOVASCULAR: Regular rate and rhythm without noted murmurs ABDOMEN: Soft, non-tender, non-distended with bowel sounds. MUSCULOSKELETAL: No tenderness, deformities, or effusions noted on gross inspection. EXTREMITIES: No cyanosis, clubbing or edema. SKIN: Inspection of the skin reveals no rashes NEUROLOGIC: Alert and oriented x 4. Strength and sensation to light touch were grossly intact x 4. Course Course Course Narrative: RME performed by Nona Lundberg PA-C. Patient is a 47 year old assigned female at presenting to the emergency department with nausea and vomiting. Patient is a type 1 diabetic who has gastroporesis. Labs and swabs ordered. Patient placed back in the waiting room pending room availability and results. Medications Administered Discontinued Medications Generic Name Dose Route Start Last Admin Trade Name Nanci PRN Reason Stop Dose Admin Fentanyl 25 mcg 06/17/23 23:00 06/17/23 23:06 Fentanyl Citrate/Pf 100 Mcg/2 Ml Vial IVPUSH 06/17/23 23:01 25 mcg ONCE ONE Administration Protocol Fentanyl 25 mcg 06/18/23 00:34 06/18/23 00:56 Fentanyl Citrate/Pf 100 Mcg/2 Ml Vial IVPUSH 06/18/23 00:35 25 mcg ONCE ONE Administration Protocol Sodium Chloride 1,000 mls @ 999 mls/hr 06/17/23 22:15 06/18/23 01:25 Ns IV 06/17/23 23:15 Infused .Q1H1M RAISA Infusion Sodium Chloride 2,449.41 mls @ 2,449.41 mls/hr 06/17/23 22:53 06/18/23 00:20 Ns 30 ml/kg infuse over 1 hr (2449.41 ml) 06/17/23 23:52 Infused IV Infusion .Q1H STA Piperacillin Sod/Tazobactam 50 mls @ 100 mls/hr 06/18/23 01:22 06/18/23 02:42 Sod 3.375 gm/ Sodium Chloride IV 06/18/23 01:51 Infused ONCE ONE Infusion Ondansetron HCl 4 mg 06/17/23 19:57 06/17/23 20:00 Ondansetron Odt 4 Mg Tab.Rapdis TRANSLINGU 06/17/23 19:58 4 mg ONCE ONE Administration Medical Decision Making Medical Decision Making [facility] Narrative: 2225: 47-year-old female with history and clinical presentation, DDX: Infection, dehydration, gastroparesis, HHS/DKA 2246: Received a call from the lab who states that patient's lactic acid is 4.8. I am actually more concerned regarding possible obstruction verses infection, I feel that the leukocytosis is a stress response as patient is afebrile. She clearly is significantly dehydrated but does not appear to be acidotic and there is no anion gap. I do appreciate the beta hydroxybutyrate is elevated however this can be elevated in considerable dehydrated states as well. I reviewed all investigations and hematologic indices I feel are consistent with a stress leukocytosis, there is a mild left shift patient is otherwise afebrile murmurs no anemia but there is a chronic elevated platelet count. VBG demonstrates a pH-7.53. Chemistry indices do not demonstrate an GEORGETTE and there is no electrolyte derangement, patient has an elevated glucose without evidence to suggest metabolic acidosis and there is no anion gap. As discussed above despite there being an elevated beta hydroxybutyrate feel that this is most strongly associated with patient's dehydration. 0123: antibiotics ordered, able to team 1 peripheral intravenous access, however I do not think that this will with stand IV contrast injection. I did change the imaging study from IV contrast to noncontrast as I do feel it will still be possible to rule out obstruction as well as evidence to suggest gastroparesis. I am going to withhold the Reglan until I confirmed that there is no obstruction. Signed out to DR Ayala - CT abd/pelvis - f/u rpt lactate, BMP Differential Diagnosis Differential Diagnoses: The differential diagnosis associated with the presentation includes Please see the discussion above Admission/Observation Consideration of admission/observation: Escalation of care including admission/observation considered Please see the discussion above Lab Data MDM Lab Attestation statement: I reviewed the patient's lab results. Please see the discussion above 06/17/23 20:49 06/18/23 02:18 Labs: Lab Results 06/17/23 06/17/23 06/17/23 Range/Units 20:49 22:26 22:32 WBC 15.5 H (4.8-10.8) X10*3/uL RBC 4.44 (4.20-5.50) X10*6/uL Hgb 12.0 (12.0-16.0) g/dl Hct 37.1 (37.0-47.0) % MCV 83.6 (80.0-98.0) fL MCH 27.0 (27.0-33.0) pg MCHC 32.3 (31.0-35.0) g/dl RDW 15.3 (11.0-16.0) % Plt Count 517 H (160-400) X10*3/uL MPV 8.8 L (9.4-12.3) fL Immature Gran % (Auto) 0.4 (0.0-0.4) % Neut % (Auto) 73.1 H (45-73) % Lymph % (Auto) 21.2 (20-40) % [place] % (Auto) 3.8 (2-11) % Eos % (Auto) 1.0 (0-4) % Baso % (Auto) 0.5 (0-2) % Lymph # (Auto) 3.3 (1.2-4.9) X10*3/uL [place] # (Auto) 0.6 (0.1-1.2) X10*3/uL Eos # (Auto) 0.2 (0.0-0.4) X10*3/uL Baso # (Auto) 0.1 (0.0-0.2) X10*3/uL Abs Immat Gran (auto) 0.06 H (0.00-0.03) X10*3/uL Absolute Neuts (auto) 11.3 H (2.0-8.3) x10*3/uL Absolute Nucleated RBC 0.000 (0.0-0.012) X10*3/uL Nucleated RBC % (auto) 0.0 (0.0-0.2) /100WBC VBG pH 7.53 H (7.32-7.43) VBG pCO2 25 mmHg VBG pO2 63 mmHg VBG HCO3 21 L (22-26) mmol/L VBG O2 Saturation 91.0 % VBG Base Excess 0.2 mmol/L Sodium 138 (135-145) mmol/L Potassium 3.9 (3.3-5.1) mmol/L Chloride 100 (96-108) mmol/L Carbon Dioxide 23 (22-29) mmol/L Anion Gap 19 (12-20) BUN 10 (9-16) mg/dL Creatinine 0.88 (0.5-1.4) mg/dL Estim Creat Clear Calc 84.2 Estimated GFR > 60 Random Glucose 243 H (60-115) mg/dL Lactic Acid 4.8 H* (0.5-2.0) mmol/L Lactic Acid F/U @ 2Hr (0.5-2.0) mmol/L Calcium 9.9 D (8.4-10.2) mg/dL Magnesium 1.7 (1.6-2.6) mg/dL Total Bilirubin 0.3 (0.0-1.0) mg/dL AST 21 (5-31) U/L ALT 20 (0-31) U/L Alkaline Phosphatase 159 H (39-117) U/L Troponin I High Sens < 2.7 (<3.5-17.0) ng/L Total Protein 8.5 H (6.5-8.0) g/dL Albumin 4.5 (3.5-5.0) g/dL Beta-Hydroxybutyrate 1.22 H (0.02-0.27) mmol/L Urine Color Urine Appearance Urine pH (5.0-9.0) Ur Specific [place] (1.005-1.025) Urine Protein (Neg-Trace) mg/dL Urine Glucose (UA) (Negative) mg/dL Urine Ketones (Negative) mg/dL Urine Blood (Negative) Urine Nitrite (Negative) Ur Leukocyte Esterase (Negative) Urine RBC (0-2) /HPF Urine WBC (0-5) /HPF Ur Squamous Epith Cells (0-2) /HPF Urine Bacteria (None Seen) Hyaline Casts (0-2) /LPF Influenza Type A (PCR) NEGATIVE (Negative) Influenza Type B (PCR) NEGATIVE (Negative) RSV RNA Qual (PCR) NEGATIVE (Negative) SARS-CoV-2 RNA (RT-PCR) NEGATIVE (Negative) 06/18/23 06/18/23 Range/Units 00:29 02:18 WBC (4.8-10.8) X10*3/uL RBC (4.20-5.50) X10*6/uL Hgb (12.0-16.0) g/dl Hct (37.0-47.0) % MCV (80.0-98.0) fL MCH (27.0-33.0) pg MCHC (31.0-35.0) g/dl RDW (11.0-16.0) % Plt Count (160-400) X10*3/uL MPV (9.4-12.3) fL Immature Gran % (Auto) (0.0-0.4) % Neut % (Auto) (45-73) % Lymph % (Auto) (20-40) % [place] % (Auto) (2-11) % Eos % (Auto) (0-4) % Baso % (Auto) (0-2) % Lymph # (Auto) (1.2-4.9) X10*3/uL [place] # (Auto) (0.1-1.2) X10*3/uL Eos # (Auto) (0.0-0.4) X10*3/uL Baso # (Auto) (0.0-0.2) X10*3/uL Abs Immat Gran (auto) (0.00-0.03) X10*3/uL Absolute Neuts (auto) (2.0-8.3) x10*3/uL Absolute Nucleated RBC (0.0-0.012) X10*3/uL Nucleated RBC % (auto) (0.0-0.2) /100WBC VBG pH (7.32-7.43) VBG pCO2 mmHg VBG pO2 mmHg VBG HCO3 (22-26) mmol/L VBG O2 Saturation % VBG Base Excess mmol/L Sodium 136 (135-145) mmol/L Potassium 3.6 (3.3-5.1) mmol/L Chloride 101 (96-108) mmol/L Carbon Dioxide 19 L (22-29) mmol/L Anion Gap 20 (12-20) BUN 9 (9-16) mg/dL Creatinine 0.82 (0.5-1.4) mg/dL Estim Creat Clear Calc 90.4 Estimated GFR > 60 Random Glucose 297 H (60-115) mg/dL Lactic Acid (0.5-2.0) mmol/L Lactic Acid F/U @ 2Hr 3.2 H* (0.5-2.0) mmol/L Calcium 8.7 D (8.4-10.2) mg/dL Magnesium (1.6-2.6) mg/dL Total Bilirubin (0.0-1.0) mg/dL AST (5-31) U/L ALT (0-31) U/L Alkaline Phosphatase (39-117) U/L Troponin I High Sens (<3.5-17.0) ng/L Total Protein (6.5-8.0) g/dL Albumin (3.5-5.0) g/dL Beta-Hydroxybutyrate (0.02-0.27) mmol/L Urine Color Yellow Urine Appearance Clear Urine pH 7.5 (5.0-9.0) Ur Specific [place] 1.020 (1.005-1.025) Urine Protein 100 (2+) H (Neg-Trace) mg/dL Urine Glucose (UA) 500 H (Negative) mg/dL Urine Ketones >=80 (Negative) mg/dL Urine Blood Small (1+) H (Negative) Urine Nitrite Negative (Negative) Ur Leukocyte Esterase Negative (Negative) Urine RBC 11-20 H (0-2) /HPF Urine WBC 0-5 (0-5) /HPF Ur Squamous Epith Cells 0-2 (0-2) /HPF Urine Bacteria None Seen (None Seen) Hyaline Casts 0-2 (0-2) /LPF Influenza Type A (PCR) (Negative) Influenza Type B (PCR) (Negative) RSV RNA Qual (PCR) (Negative) SARS-CoV-2 RNA (RT-PCR) (Negative) Independent Interpretation I performed an independent interpretation of an: EKG Interpretation: Sinus tachycardia, HR-122, no STEMI, [place]/QRS/QTC is within normal limits. External Record Review External record reviewed: Outpatient record, Prior outpatient labs and Prior outpatient radiology Chronic Conditions Patient?s care impacted by: Diabetes Critical Care Time Critical Care Time Critical Care Time: Yes Total Critical Care Time: 60 Attestation: I personally attest to this time spent taking care of the patient. Discharge Plan Discharge Clinical Impression: Abdominal pain, Nausea & vomiting, Diabetic gastroparesis, Acidosis, lactic Patient Disposition: Admitted As Inpatient Prescriptions: No Action ondansetron 4 mg tablet,disintegrating 4 mg PO BID PRN (Reason: nausea and vomiting) Qty: 14 0RF midodrine 5 mg tablet 5 mg PO DAILY Qty: 90 2RF albuterol sulfate 90 mcg/actuation HFA aerosol inhaler 1 puff PO Q4H PRN (Reason: for wheezing) Qty: 8.5 2RF metoprolol tartrate 25 mg tablet 25 mg PO BID Qty: 180 1RF omeprazole 20 mg capsule,delayed release(DR/EC) 20 mg PO BID Qty: 180 3RF insulin aspart U-100 [Novolog FlexPen U-100 Insulin] 100 unit/mL (3 mL) insulin pen 0 unit subcut DIRECTED Rx Instructions: INSULIN PUMP lorazepam 1 mg Tablet 1 mg PO TID PRN (Reason: Anxiety) lamotrigine 200 mg Tablet 200 mg PO BID zolpidem 10 mg Tablet 10 mg PO BEDTIME risperidone 2 mg tablet 1 tab PO BID nitrofurantoin monohyd/m-cryst [Macrobid] 100 mg capsule 100 mg PO Q12H 7 Days Qty: 14 0RF Rx Instructions: must administer with a meal/food
--- NOTE | 2023-06-17 19:57 | ECG_ITS ---
Test Reason : vomiting Blood Pressure : / mmHG Vent. Rate : 122 BPM Atrial Rate : 122 BPM P-R Int : 136 ms QRS Dur : 084 ms QT Int : 332 ms P-R-T Axes : 039 033 004 degrees QTc Int : 473 ms Sinus tachycardia Otherwise normal ECG When compared with ECG of 27-NOV-2022 17:45, No significant change was found Referred By: Nona Lundberg Electronically Signed By:NADEEN MCKEON
[2023-06-17] MEDS: Ondansetron ODT 4 MG TAB.RAPDIS TRANSLINGU (20:00)
[2023-06-17 20:01] VITALS: BP 146/89; PULSE 113; RESP 22; TEMP 36.7; O2SAT 99; BMI 29.0
[2023-06-17 20:55] LABS: MANUAL DIFF FLAG NO
[2023-06-17 20:58] LABS: Basophils Absolute Auto 0.1 X10*3/uL (0.0-0.2); Basophils Percent Auto 0.5 % (0-2); Eosinophils Absolute Auto 0.2 X10*3/uL (0.0-0.4); Hematocrit 37.1 % (37.0-47.0); Imm Gran Abs Auto 0.06 X10*3/uL (0.00-0.03); Imm Gran Pct Auto 0.4 % (0.0-0.4); Lymphocytes Absolute Auto 3.3 X10*3/uL (1.2-4.9); Lymphocytes Percent Auto 21.2 % (20-40); Mean Corpuscular HGB Conc 32.3 g/dl (31.0-35.0); Mean Corpuscular Volume 83.6 fL (80.0-98.0); Mean Platelet Volume 8.8 fL (9.4-12.3); Monocytes Absolute Auto 0.6 X10*3/uL (0.1-1.2); Monocytes Percent Auto 3.8 % (2-11); Neutrophils Absolute Auto 11.3 x10*3/uL (2.0-8.3); Neutrophils Percent Auto 73.1 % (45-73); Platelet Count 517 X10*3/uL (160-400); Red Blood Count 4.44 X10*6/uL (4.20-5.50); Red Cell Distribution Width 15.3 % (11.0-16.0); White Blood Count 15.5 X10*3/uL (4.8-10.8)
[2023-06-17 21:11] LABS: Alanine Aminotransferase 20 U/L (0-31); Albumin Level 4.5 g/dL (3.5-5.0); Alkaline Phosphatase 159 U/L (39-117); Anion Gap 19 (12-20); Aspartate Amino Transferase 21 U/L (5-31); Bilirubin Total 0.3 mg/dL (0.0-1.0); Blood Urea Nitrogen 10 mg/dL (9-16); Calcium 9.9 mg/dL (8.4-10.2); Carbon Dioxide 23 mmol/L (22-29); Chloride 100 mmol/L (96-108); Creatinine Clr Calc Pharmacy 84.2; Estimated Glomerular Filt Rate > 60; Glucose Random 243 mg/dL (60-115); Magnesium 1.7 mg/dL (1.6-2.6); Potassium 3.9 mmol/L (3.3-5.1); Sodium 138 mmol/L (135-145); Total Protein 8.5 g/dL (6.5-8.0)
[2023-06-17 21:17] LABS: Troponin-I High Sensitivity < 2.7 ng/L (<3.5-17.0)
[2023-06-17 21:33] LABS: Influenza A PCR NEGATIVE (Negative); Influenza B PCR NEGATIVE (Negative); Resp Syncy Virus RNA Qual PCR NEGATIVE (Negative); SARS COV2 PCR INHOUSE NEGATIVE (Negative)
[2023-06-17 22:07] VITALS: BP 172/91; PULSE 137; RESP 29; TEMP 36.6; O2SAT 100
[2023-06-17 22:22] LABS: Beta-Hydroxybutyrate 1.22 mmol/L (0.02-0.27)
[2023-06-17 22:39] LABS: VBG Base Excess 0.2 mmol/L; VBG HCO3 21 mmol/L (22-26); VBG pCO2 25 mmHg; VBG pH 7.53 (7.32-7.43); VBG pO2 63 mmHg
[2023-06-17 22:39] LABS: Venous Blood Gas Refer to POC result
[2023-06-17 22:46] LABS: Lactic Acid 4.8 mmol/L (0.5-2.0)
[2023-06-17] MEDS: fentaNYL citrate/PF 100 MCG/2 ML VIAL 25 MCG IVPUSH (23:06)
[2023-06-17] MEDS: 0.9 % Sodium Chloride 2,449.41 ML 2449.41 ML IV (23:07)
[2023-06-17 23:20] VITALS: BP 174/87; PULSE 117; RESP 15; TEMP 36.7; O2SAT 96
[2023-06-18] VITALS (8 sets, daily range): BP systolic 116–177; BP diastolic 66–84; PULSE 109–136; RESP 14–24; TEMP 36.8–37.1; O2SAT 95–98; BMI 28.1
[2023-06-18] MEDS: 0.9 % Sodium Chloride 1,000 ML 999 ML IV (00:21)
--- NOTE | 2023-06-18 00:21 | PC.NURSE ---
Addendum entered by Adriana Hannah RN 06/18/23 03:06: pt reassessed after the administration per SEP. pt reported minimal pain relief, Dr. Ocasio, no interventions ordered at this time Original Note: pt assessed reported increased pain and nausea . Dr. ocasio
[2023-06-18 00:31] LABS: Reflex Lactate? Lactic Acid Added
[2023-06-18 00:36] LABS: Appearance Urine Clear; Color Urine Yellow; Glucose Urine UA 500 mg/dL (Negative); Leukocyte Esterase Urine Negative (Negative); Nitrite Urine Negative (Negative); PH 7.5 (5.0-9.0); UMIC TRIGGER UACC YES; Urine Blood Small (1+) (Negative); Urine Ketones >=80 mg/dL (Negative); Urine Protein 100 (2+) mg/dL (Neg-Trace)
[2023-06-18 00:42] LABS: Bacteria Urine None Seen (None Seen); Hyaline Casts Urine 0-2 /LPF (0-2); Squamous Epithelial Cell Urine 0-2 /HPF (0-2); WBC Urine 0-5 /HPF (0-5)
[2023-06-18] MEDS: fentaNYL citrate/PF 100 MCG/2 ML VIAL 25 MCG IVPUSH (00:56)
[2023-06-18] MEDS: Piperacillin Sodium/Tazobactam 3.375 GM in 0.9 % Sodium Chloride 50 ML IV (01:58)
--- NOTE | 2023-06-18 02:19 | MHC.EDTECH ---
Addendum entered by Adriana Hannah RN 06/18/23 04:24: pt medicated per SEP for nausea Original Note: Patient blood drawn and sent to lab ,vitals taken ,MEREDITH Wright is aware of pt hhr and bp .
[2023-06-18 02:45] LABS: Anion Gap 20 (12-20); Blood Urea Nitrogen 9 mg/dL (9-16); Calcium 8.7 mg/dL (8.4-10.2); Carbon Dioxide 19 mmol/L (22-29); Chloride 101 mmol/L (96-108); Creatinine Clr Calc Pharmacy 90.4; Estimated Glomerular Filt Rate > 60; Glucose Random 297 mg/dL (60-115); Potassium 3.6 mmol/L (3.3-5.1); Sodium 136 mmol/L (135-145)
[2023-06-18 02:46] LABS: ~Lactic Acid-LAB USE ONLY 3.2 mmol/L (0.5-2.0)
--- NOTE | 2023-06-18 03:43 | PC.NURSE ---
Addendum entered by Adriana Hannah RN 06/18/23 03:51: pt c/o severe pain and N/V. Dr. ocasio Original Note: pt post void 206ml. Dr. Lucy ocasio
[2023-06-18] MEDS: droPERidol 5 MG/2 ML VIAL 1.25 MG IVPUSH (04:06)
--- NOTE | 2023-06-18 04:07 | MHC.EDTECH ---
0400 ROUNDING DONE VITALS TAKEN ,RN BRANDO IS AWARE OF PT HIGH BP ,HIGH HR AND H RESP ,PT BELONGINGS LIST DONE .
[2023-06-18 04:21] LABS: Reflex Lactate? 2 Y
--- NOTE | 2023-06-18 05:35 | MHC.EDTECH ---
Patient am labs drawn and send to lab ,vitals taken .
[2023-06-18 05:36] LABS: MANUAL DIFF FLAG NO
[2023-06-18 05:37] LABS: Basophils Percent Auto 0.2 % (0-2); Hematocrit 37.9 % (37.0-47.0); Hemoglobin 12.4 g/dl (12.0-16.0); Imm Gran Pct Auto 0.6 % (0.0-0.4); Lymphocytes Absolute Auto 1.4 X10*3/uL (1.2-4.9); Lymphocytes Percent Auto 7.6 % (20-40); Mean Corpuscular HGB Conc 32.7 g/dl (31.0-35.0); Mean Corpuscular Hemoglobin 27.1 pg (27.0-33.0); Mean Corpuscular Volume 82.8 fL (80.0-98.0); Mean Platelet Volume 8.7 fL (9.4-12.3); Monocytes Absolute Auto 0.4 X10*3/uL (0.1-1.2); Monocytes Percent Auto 2.4 % (2-11); Neutrophils Absolute Auto 15.9 x10*3/uL (2.0-8.3); Neutrophils Percent Auto 89.2 % (45-73); Platelet Count 479 X10*3/uL (160-400); Red Blood Count 4.58 X10*6/uL (4.20-5.50); Red Cell Distribution Width 15.3 % (11.0-16.0); White Blood Count 17.8 X10*3/uL (4.8-10.8)
[2023-06-18 05:57] LABS: Glucose, Whole Blood 322 mg/dL (60-115)
[2023-06-18 05:57] LABS: Anion Gap 19 (12-20); Blood Urea Nitrogen 9 mg/dL (9-16); Calcium 8.9 mg/dL (8.4-10.2); Carbon Dioxide 19 mmol/L (22-29); Chloride 99 mmol/L (96-108); Creatinine Clr Calc Pharmacy 87.1; Estimated Glomerular Filt Rate > 60; Glucose Random 344 mg/dL (60-115); Potassium 3.8 mmol/L (3.3-5.1); Sodium 133 mmol/L (135-145); ~Lactic Acid-LAB USE ONLY 2.6 mmol/L (0.5-2.0)
[2023-06-18] MEDS: HYDROmorphone HCl 0.5 MG/0.5 ML SYRINGE IVPUSH ×2 (06:03→09:32)
[2023-06-18] MEDS: Pantoprazole Sodium 40 MG/10 ML VIAL IVPUSH ×2 (06:03→17:21)
[2023-06-18] MEDS: Dextrose 5 % and 0.45 % NaCl 1,000 ML 125 ML IVCONT (06:08)
--- NOTE | 2023-06-18 06:08 | PM.IMHP ---
History of Present Illness Date of Service: 06/18/23 Attending physician on admission: Duke Marquez Chief Complaint: Persistent abdominal pain with associated nausea and vomiting x 24 hours Patient is a 47 year old unfortunate white female with known history of Type 1 diabetes mellitus (on Insulin pump), diabetic gastroparesis, GERD, CAD, and bipolar disorder who presents to the emergency room from home complaining of persistent nausea and vomiting associated with severe (10/10 intensity) generalized abdominal pain. No associated diarrhea, fevers or chills. She has had multiple admission in the past for similar problems and requires a short hospital stay for symptomatic care. Initial evaluation on arrival to the ED was notable for persistent tachycardia with hear rate between 110 - 130's, elevated blood pressure and respiratory rate. Lab work done revealed presence of a leucocytosis of 15.5 k/mm3, elevated platelet count at 517, elevated blood sugar (297 mg/dl) and lactic acid (4.8 mmol/L). A CT scan of the abdomen and pelvis revealed mild urinary bladder distention with a small amount of air within the urinary bladder. She received an empiric dose of IV Zosyn and also IV Zofran & Droperidol for nausea/vomiting and 50 mcg of IV Fentanyl with really no improvement in her symptoms and so admission was requested for continued symptomatic care. Review of Systems Review of Systems: Yes all other systems are reviewed and are negative [facility] Medical History Diabetic gastroparesis Herpes zoster Status post fall Recurrent UTI NSTEMI (non-ST elevated myocardial infarction) Diabetic gastroparesis Anxiety Bipolar 1 disorder Pancreatitis Gastroparesis Diabetes Functional capacity: independent ambulation Surgical History History of cholecystectomy History of tonsillectomy History of ERCP H/O pyloroplasty History of appendectomy H/O: hysterectomy Social History Household Members: Spouse Housing: Unknown / Unable to assess Do you presently have visiting nurse or other home services: No (unknown) Unable to assess alcohol history related to: Unknown Alcohol intake: never Comment: sleeping Patient Tobacco Use Status: Former Tobacco user Tobacco use type: Cigarette Smoked in Last 30 Days: No e-Cigarette/Vaping Use: Never Used Second Hand Smoke Exposure: No Use of substances other than those prescribed or required for medical reasons: No Substance Use Type: Marijuana Advance Directives: Yes Advance Directives on File: Yes Advance Directives Date on File: 12/03/22 Patient : No service: No Current occupational status: disabled Cognitive needs: No Hearing needs: No Vision needs: No Meds Allergies Allergy/AdvReac Type Severity Reaction Status Date / Time morphine [MORPHINE] Allergy Intermediate RASH, Verified 04/18/23 15:08 hives, hives mushroom Allergy Intermediate HIVES/RASH Verified 04/18/23 15:08 mushroom Allergy Unknown throat Uncoded 04/18/23 15:08 closes up/difficult breathing mushrooms Allergy Unknown anaphylaxis Uncoded 04/18/23 15:08 Home Medications Medication Instructions Recorded Confirmed Last Taken Type lamotrigine 200 mg tablet 200 mg PO BID 05/11/20 06/18/23 06/17/23 08:00 History lorazepam 1 mg tablet 1 mg PO TID PRN Anxiety 05/11/20 06/18/23 06/17/23 08:00 History zolpidem 10 mg tablet 10 mg PO BEDTIME 05/11/20 06/18/23 06/16/23 22:00 History insulin aspart U-100 100 unit/mL 0 unit subcut DIRECTED 06/01/20 06/18/23 11/27/22 History (3 mL) subcutaneous pen (Novolog FlexPen U-100 Insulin aspart) risperidone 2 mg tablet 1 tab PO BID 09/13/21 06/18/23 06/17/23 08:00 History Physical Exam Vital Signs and Narrative: Vital Signs: Last Vital Signs Temp 98.4 F 06/18/23 05:20 Pulse 129 H 06/18/23 05:20 Resp 20 06/18/23 05:20 BP 169/77 H 06/18/23 05:20 Pulse Ox 98 06/18/23 05:20 O2 Del Method Room Air 06/18/23 05:20 BMI result Body Mass Index 29.0 General: Well nourished in bed. Awake and alert x 4 but teary and shaking when woken up. However in no respiratory distress Eyes: No pallor or jaundice. PERRLA, EOMI HENT: Moist oral mucus membranes. No oropharyngeal lesions. Neck: Supple. No cervical adenopathy. No JVD Cardiovascular: Tachycardic but regular rate and rhythm. Normal heart sounds. No murmurs, rubs or gallops. No JVD. No peripheral edema. Respiratory: Normal respiratory effort with no accessory muscle use. CTAB. Gastrointestinal: Abdomen is flabby and tender to palpation. NABS. No hepatosplenomegally Extremities: No edema or calf pain. Good peripheral pulses Skin: Warm/Dry. No rashes. No mottling. Capillary refill is < 2 seconds Neurological: AAOx4. Intact speech & cognition. Gait & balance not assessed at this time. CN II - XII grossly intact but not individually tested. No motor or sensory deficits Hematologic: No bleeding. No ecchymosis. No swollen or tender lymph nodes. Psychiatric: Cooperative. Appropriate mood and affect . Results Labs 06/18/23 05:31 06/18/23 05:32 Labs: Laboratory Results - last 24 hr 06/17/23 06/17/23 06/17/23 20:49 22:26 22:32 MCV 83.6 MCH 27.0 MCHC 32.3 RDW 15.3 Plt Count 517 H MPV 8.8 L Immature Gran % (Auto) 0.4 Neut % (Auto) 73.1 H Lymph % (Auto) 21.2 [place] % (Auto) 3.8 Eos % (Auto) 1.0 Baso % (Auto) 0.5 Lymph # (Auto) 3.3 [place] # (Auto) 0.6 Eos # (Auto) 0.2 Baso # (Auto) 0.1 Abs Immat Gran (auto) 0.06 H Absolute Neuts (auto) 11.3 H Absolute Nucleated RBC 0.000 Nucleated RBC % (auto) 0.0 VBG pH 7.53 H VBG pCO2 25 VBG pO2 63 VBG HCO3 21 L VBG O2 Saturation 91.0 VBG Base Excess 0.2 Anion Gap 19 Estim Creat Clear Calc 84.2 Estimated GFR > 60 POC Glucose Random Glucose 243 H Lactic Acid 4.8 H* Lactic Acid F/U @ 2Hr Lactic Acid F/U @ 4Hr Calcium 9.9 D Magnesium 1.7 Total Bilirubin 0.3 AST 21 ALT 20 Alkaline Phosphatase 159 H Total Protein 8.5 H Albumin 4.5 Beta-Hydroxybutyrate 1.22 H Urine Color Urine Appearance Urine pH Ur Specific [place] Urine Protein Urine Glucose (UA) Urine Ketones Urine Blood Urine Nitrite Ur Leukocyte Esterase Urine RBC Urine WBC Ur Squamous Epith Cells Urine Bacteria Hyaline Casts Influenza Type A (PCR) NEGATIVE Influenza Type B (PCR) NEGATIVE RSV RNA Qual (PCR) NEGATIVE SARS-CoV-2 RNA (RT-PCR) NEGATIVE 06/18/23 06/18/23 06/18/23 00:29 02:18 05:31 MCV 82.8 MCH 27.1 MCHC 32.7 RDW 15.3 Plt Count 479 H MPV 8.7 L Immature Gran % (Auto) 0.6 H Neut % (Auto) 89.2 H Lymph % (Auto) 7.6 L [place] % (Auto) 2.4 Eos % (Auto) 0.0 Baso % (Auto) 0.2 Lymph # (Auto) 1.4 [place] # (Auto) 0.4 Eos # (Auto) 0.0 Baso # (Auto) 0.0 Abs Immat Gran (auto) 0.10 H Absolute Neuts (auto) 15.9 H Absolute Nucleated RBC 0.000 Nucleated RBC % (auto) 0.0 VBG pH VBG pCO2 VBG pO2 VBG HCO3 VBG O2 Saturation VBG Base Excess Anion Gap 20 Estim Creat Clear Calc 90.4 Estimated GFR > 60 POC Glucose Random Glucose 297 H Lactic Acid Lactic Acid F/U @ 2Hr 3.2 H* Lactic Acid F/U @ 4Hr Calcium 8.7 D Magnesium Total Bilirubin AST ALT Alkaline Phosphatase Total Protein Albumin Beta-Hydroxybutyrate Urine Color Yellow Urine Appearance Clear Urine pH 7.5 Ur Specific [place] 1.020 Urine Protein 100 (2+) H Urine Glucose (UA) 500 H Urine Ketones >=80 Urine Blood Small (1+) H Urine Nitrite Negative Ur Leukocyte Esterase Negative Urine RBC 11-20 H Urine WBC 0-5 Ur Squamous Epith Cells 0-2 Urine Bacteria None Seen Hyaline Casts 0-2 Influenza Type A (PCR) Influenza Type B (PCR) RSV RNA Qual (PCR) SARS-CoV-2 RNA (RT-PCR) 06/18/23 06/18/23 05:32 05:53 MCV MCH MCHC RDW Plt Count MPV Immature Gran % (Auto) Neut % (Auto) Lymph % (Auto) [place] % (Auto) Eos % (Auto) Baso % (Auto) Lymph # (Auto) [place] # (Auto) Eos # (Auto) Baso # (Auto) Abs Immat Gran (auto) Absolute Neuts (auto) Absolute Nucleated RBC Nucleated RBC % (auto) VBG pH VBG pCO2 VBG pO2 VBG HCO3 VBG O2 Saturation VBG Base Excess Anion Gap 19 Estim Creat Clear Calc 87.1 Estimated GFR > 60 POC Glucose 322 H Random Glucose 344 H Lactic Acid Lactic Acid F/U @ 2Hr Lactic Acid F/U @ 4Hr 2.6 H* Calcium 8.9 Magnesium Total Bilirubin AST ALT Alkaline Phosphatase Total Protein Albumin Beta-Hydroxybutyrate Urine Color Urine Appearance Urine pH Ur Specific [place] Urine Protein Urine Glucose (UA) Urine Ketones Urine Blood Urine Nitrite Ur Leukocyte Esterase Urine RBC Urine WBC Ur Squamous Epith Cells Urine Bacteria Hyaline Casts Influenza Type A (PCR) Influenza Type B (PCR) RSV RNA Qual (PCR) SARS-CoV-2 RNA (RT-PCR) ECG ECG interpretation date: 06/18/23 ECG interpretation time: 06:31 Prior ECG tracings: available for review Interpretation: Sinus tachycardia at 122 bpm with normal axis and no ST-T segment changes. Imaging Radiologist's Impressions: Impressions Abdomen/Pelvis CT 06/18/23 02:45 IMPRESSION: Bilateral nonobstructing renal calculi/renal vascular calcification. Mild urinary bladder distention with a small amount of air within the urinary bladder. Correlation with urinalysis needed. Prominent bilateral renal collecting systems and ureters without ureteral calculi likely related to urinary bladder distention. Fleischner guidelines were followed. Fleischner guidelines were followed. Assessment and Plan (1) Diabetic gastroparesis: Status: Acute (2) Intractable nausea and vomiting: Status: Resolved (3) Uncontrolled type 1 diabetes mellitus with hyperglycemia: Status: Acute (4) Acidosis, lactic: Status: Acute (5) Nausea & vomiting: Qualifiers: Vomiting type: unspecified Qualified Code(s): R11.2 - Nausea with vomiting, unspecified Status: Acute (6) Abdominal pain: Qualifiers: Abdominal location: generalized Qualified Code(s): R10.84 - Generalized abdominal pain Status: Acute (7) Leucocytosis: Qualifiers: Leukocytosis type: leukemoid reaction Qualified Code(s): D72.823 - Leukemoid reaction Status: Acute Plan 47 year old unfortunate white female with known history of Type 1 diabetes mellitus (on Insulin pump), diabetic gastroparesis, GERD, CAD, and bipolar disorder her with 1. Diabetic gastroparesis - here with abdominal pain with nausea an vomiting - likely secondary to diabetic gastroparesis - admit for symptom control - continue PRN analgesics and antiemetics 2. Type 1 diabetes Mellitus - not in DKA - she has an Insulin Pump which we will remove during her hospital stay - her daily dose if 60 units - start on Insulin Lantus 30 units since she is NPO - add sliding scale insulin coverage 3. Elevated serum lactic acid - noted with lactic acidosis of 4.8 - likely due excessive volume loss through vomiting - she has no signs to suggest an infection - I will therefore hold off antibiotics for now - continue IV fluids - continue to closely monitor 4. SIRS - meets criteria for SIRS with tachycardia, and leucocytosis - no obvious foci of infection - will continue IV fluids - will hold off antibiotics for now. 5. Elevated Blood pressure - noted with elevated blood pressure - will hold Midodrine for now - resume Metoprolol 6. Leucocytosis - likely stress induced - monitor Total time managing care of this patient today: 75 minutes. Quality Stroke Does the patient have a stroke diagnosis?: No VTE Prior VTE?: No VTE Risk Level:: Medical - moderate - high VTE Device Contraindication: N/A - Device Ordered VTE Drug Contraindication: N/A - Med Ordered
--- NOTE | 2023-06-18 06:10 | PC.NURSE ---
Addendum entered by Adriana Hannah RN 06/18/23 06:30: Dr. Marquez aware, no new interventions ordered Original Note: pt blood glucose 322 pt has implanted insulin pump, pt reported she gave herself 4 units of regular insulin
[2023-06-18] MEDS: 0.9 % Sodium Chloride Flush 3 ML SYRINGE IVFLUSH ×3 (09:02→20:57)
[2023-06-18] MEDS: Lactated Ringers 1,000 ML 125 ML IVCONT ×2 (09:06→17:25)
[2023-06-18] MEDS: Insulin Glargine,Hum.rec.anlog 100 UNIT/ML 10 ML VIAL 30 UNIT SUBCUT (09:14)
[2023-06-18] MEDS: Enoxaparin Sodium 40 MG/0.4 ML SYRINGE SUBCUT (09:14)
[2023-06-18] MEDS: risperiDONE 2 MG TABLET PO ×2 (09:15→20:56)
[2023-06-18] MEDS: lamoTRIgine 100 MG TABLET 200 MG PO ×2 (09:15→20:56)
[2023-06-18] MEDS: Metoprolol Tartrate 25 MG TABLET PO ×2 (09:15→20:56)
[2023-06-18] MEDS: ondansetron HCL 4 MG/2 ML VIAL IVPUSH ×2 (09:24→16:45)
[2023-06-18] MEDS: LORazepam 2 MG/ML VIAL 1 MG IVPUSH ×2 (09:25→16:45)
[2023-06-18 09:38] LABS: Glucose, Whole Blood 372 mg/dL (60-115)
--- NOTE | 2023-06-18 10:14 | PC.NURSE ---
Pt currently resting on stretcher, endorsing significant improvement in symptoms after PRN nausea & pain medication administration. Pt states that her pain is currently around a 6/10 in her abdomen. Nausea has resolved. Pt able to tolerate PO medication. HR remains elevated, IP provider aware. All other VSS. Pt has implanted insulin pump that is used for bolus. Lantus administered per SEP.
--- NOTE | 2023-06-18 10:16 | PC.NURSE ---
Pt administered 5u bolus from implanted insulin pump at 0914 - [facility] POC: 372 - Lantus administered per MAR - Humalog not given. IP provider aware.
--- NOTE | 2023-06-18 10:49 | PHA.MEDREC ---
Pharmacy Consult ? Medication Reconciliation Pharmacy has completed the medication reconciliation.PHARMACY HAS REVIEWED MED REC DONE BY NURSING
[2023-06-18 11:38] LABS: Glucose, Whole Blood 326 mg/dL (60-115)
[2023-06-18] MEDS: Insulin Lispro 100 UNIT/ML 3 ML VIAL SUBCUT (11:39)
--- NOTE | 2023-06-18 12:54 | MHC.CM.PN ---
Patient was unavailable; CM spoke with /HCP/Deon @ [phone] and addressed IMM with him (original will be mailed certified mail to Deon and a copy placed on the chart). Patient lives in a trailer with her and she required no services nor DME VALET. Home/self care is the tentative plan and CM has initiated and will follow for dc planning. HCP is on file and the PCP is Dr. Yulisa Herrera.
--- NOTE | 2023-06-18 13:50 | HO.PM.IMPN ---
Subjective Subjective Date of Service: 06/18/23 Interval History: seen in follow up for abdominal pain, n/v, hyperglycemia interval history: still with abd pain but overall better, HR has gone down and she seems more comfortable and resting Physical Exam Vital Signs: Vital Signs: Last Vital Signs Temp 98.4 F 06/18/23 08:24 Pulse 119 H 06/18/23 10:18 Resp 20 06/18/23 10:18 BP 148/71 H 06/18/23 08:24 Pulse Ox 96 06/18/23 10:18 O2 Del Method Room Air 06/18/23 10:18 BMI result Body Mass Index 29.0 Objective Data Active Medications Acetaminophen (Acetaminophen 325 Mg Tablet) 650 mg PO Q6H PRN PRN Reason: Pain, Mild (Pain Scale 1-3) Al Hydroxide/Mg Hydroxide (Magnesium Hydrox/Alum Hydrox 30 Ml Oral.Susp) 30 ml PO Q4H PRN PRN Reason: Heartburn/Nausea Dextrose (Dextrose 50 % 25 Gm/50 Ml Syringe) 25 gm IVPUSH Q15M PRN; Protocol PRN Reason: per Hypoglycemia Standing Ord. Enoxaparin Sodium (Enoxaparin Sodium 40 Mg/0.4 Ml Syringe) 40 mg SUBCUT Q24H [facility] Last Admin: 06/18/23 09:14 Dose: 40 mg Documented By: DOLORES Glucose (Glucose Gel 15 Gm Gel..Gram.) 15 gm PO Q15M PRN; Protocol PRN Reason: per Hypoglycemia Standing Ord. Hydromorphone HCl (Hydromorphone Hcl 0.5 Mg/0.5 Ml Syringe) 1 mg IVPUSH Q4H PRN; Protocol PRN Reason: Pain, Severe (Pain Scale 7-10) Lactated Ringer's (Lr) 1,000 mls @ 125 mls/hr IVCONT .Q8H [facility] Last Admin: 06/18/23 09:06 Dose: 125 mls/hr Documented By: DOLORES Insulin Glargine (Insulin Glargine,Hum.Rec.Anlog 100 Unit/Ml 10 Ml Vial) 30 unit SUBCUT DAILY [facility] Last Admin: 06/18/23 09:14 Dose: 30 unit Documented By: DOLORES Insulin Human Lispro (Insulin Lispro 100 Unit/Ml 3 Ml Vial) 0 unit SUBCUT Q6H [facility]; Protocol Stop: 06/19/23 05:59 Last Admin: 06/18/23 11:39 Dose: 8 unit Documented By: DOLORES Lamotrigine (Lamotrigine 100 Mg Tablet) 200 mg PO BID [facility] Last Admin: 06/18/23 09:15 Dose: 200 mg Documented By: DOLORES Lorazepam (Lorazepam 2 Mg/Ml Vial) 1 mg IVPUSH QID PRN PRN Reason: Anxiety Last Admin: 06/18/23 09:25 Dose: 1 mg Documented By: DOLORES Metoprolol Tartrate (Metoprolol Tartrate 25 Mg Tablet) 25 mg PO BID [facility]; Protocol Last Admin: 06/18/23 09:15 Dose: 25 mg Documented By: DOLORES Ondansetron HCl (Ondansetron Hcl 4 Mg/2 Ml Vial) 4 mg IVPUSH Q8H PRN PRN Reason: Nausea and Vomiting Last Admin: 06/18/23 09:24 Dose: 4 mg Documented By: DOLORES Pantoprazole Sodium (Pantoprazole Sodium 40 Mg/10 Ml Vial) 40 mg IVPUSH BID@0630,1630 [facility] Last Admin: 06/18/23 06:03 Dose: 40 mg Documented By: RE Risperidone (Risperidone 2 Mg Tablet) 2 mg PO BID [facility] Last Admin: 06/18/23 09:15 Dose: 2 mg Documented By: DOLORES Sodium Chloride (0.9 % Sodium Chloride Flush 3 Ml Syringe) 3 ml IVFLUSH QSHIFT [facility] Last Admin: 06/18/23 09:02 Dose: 3 ml Documented By: DOLORES Zolpidem Tartrate (Zolpidem Tartrate 5 Mg Tablet) 10 mg PO BEDTIME PRN PRN Reason: Insomnia Labs 06/18/23 05:31 06/18/23 05:32 Labs: Laboratory Results - last 24 hr 06/17/23 06/17/23 06/17/23 20:49 22:26 22:32 MCV 83.6 MCH 27.0 MCHC 32.3 RDW 15.3 Plt Count 517 H MPV 8.8 L Immature Gran % (Auto) 0.4 Neut % (Auto) 73.1 H Lymph % (Auto) 21.2 [place] % (Auto) 3.8 Eos % (Auto) 1.0 Baso % (Auto) 0.5 Lymph # (Auto) 3.3 [place] # (Auto) 0.6 Eos # (Auto) 0.2 Baso # (Auto) 0.1 Abs Immat Gran (auto) 0.06 H Absolute Neuts (auto) 11.3 H Absolute Nucleated RBC 0.000 Nucleated RBC % (auto) 0.0 VBG pH 7.53 H VBG pCO2 25 VBG pO2 63 VBG HCO3 21 L VBG O2 Saturation 91.0 VBG Base Excess 0.2 Anion Gap 19 Estim Creat Clear Calc 84.2 Estimated GFR > 60 POC Glucose Random Glucose 243 H Lactic Acid 4.8 H* Lactic Acid F/U @ 2Hr Lactic Acid F/U @ 4Hr Calcium 9.9 D Magnesium 1.7 Total Bilirubin 0.3 AST 21 ALT 20 Alkaline Phosphatase 159 H Total Protein 8.5 H Albumin 4.5 Beta-Hydroxybutyrate 1.22 H Urine Color Urine Appearance Urine pH Ur Specific [place] Urine Protein Urine Glucose (UA) Urine Ketones Urine Blood Urine Nitrite Ur Leukocyte Esterase Urine RBC Urine WBC Ur Squamous Epith Cells Urine Bacteria Hyaline Casts Influenza Type A (PCR) NEGATIVE Influenza Type B (PCR) NEGATIVE RSV RNA Qual (PCR) NEGATIVE SARS-CoV-2 RNA (RT-PCR) NEGATIVE 06/18/23 06/18/23 06/18/23 00:29 02:18 05:31 MCV 82.8 MCH 27.1 MCHC 32.7 RDW 15.3 Plt Count 479 H MPV 8.7 L Immature Gran % (Auto) 0.6 H Neut % (Auto) 89.2 H Lymph % (Auto) 7.6 L [place] % (Auto) 2.4 Eos % (Auto) 0.0 Baso % (Auto) 0.2 Lymph # (Auto) 1.4 [place] # (Auto) 0.4 Eos # (Auto) 0.0 Baso # (Auto) 0.0 Abs Immat Gran (auto) 0.10 H Absolute Neuts (auto) 15.9 H Absolute Nucleated RBC 0.000 Nucleated RBC % (auto) 0.0 VBG pH VBG pCO2 VBG pO2 VBG HCO3 VBG O2 Saturation VBG Base Excess Anion Gap 20 Estim Creat Clear Calc 90.4 Estimated GFR > 60 POC Glucose Random Glucose 297 H Lactic Acid Lactic Acid F/U @ 2Hr 3.2 H* Lactic Acid F/U @ 4Hr Calcium 8.7 D Magnesium Total Bilirubin AST ALT Alkaline Phosphatase Total Protein Albumin Beta-Hydroxybutyrate Urine Color Yellow Urine Appearance Clear Urine pH 7.5 Ur Specific [place] 1.020 Urine Protein 100 (2+) H Urine Glucose (UA) 500 H Urine Ketones >=80 Urine Blood Small (1+) H Urine Nitrite Negative Ur Leukocyte Esterase Negative Urine RBC 11-20 H Urine WBC 0-5 Ur Squamous Epith Cells 0-2 Urine Bacteria None Seen Hyaline Casts 0-2 Influenza Type A (PCR) Influenza Type B (PCR) RSV RNA Qual (PCR) SARS-CoV-2 RNA (RT-PCR) 06/18/23 06/18/23 06/18/23 05:32 05:53 09:17 MCV MCH MCHC RDW Plt Count MPV Immature Gran % (Auto) Neut % (Auto) Lymph % (Auto) [place] % (Auto) Eos % (Auto) Baso % (Auto) Lymph # (Auto) [place] # (Auto) Eos # (Auto) Baso # (Auto) Abs Immat Gran (auto) Absolute Neuts (auto) Absolute Nucleated RBC Nucleated RBC % (auto) VBG pH VBG pCO2 VBG pO2 VBG HCO3 VBG O2 Saturation VBG Base Excess Anion Gap 19 Estim Creat Clear Calc 87.1 Estimated GFR > 60 POC Glucose 322 H 372 H* Random Glucose 344 H Lactic Acid Lactic Acid F/U @ 2Hr Lactic Acid F/U @ 4Hr 2.6 H* Calcium 8.9 Magnesium Total Bilirubin AST ALT Alkaline Phosphatase Total Protein Albumin Beta-Hydroxybutyrate Urine Color Urine Appearance Urine pH Ur Specific [place] Urine Protein Urine Glucose (UA) Urine Ketones Urine Blood Urine Nitrite Ur Leukocyte Esterase Urine RBC Urine WBC Ur Squamous Epith Cells Urine Bacteria Hyaline Casts Influenza Type A (PCR) Influenza Type B (PCR) RSV RNA Qual (PCR) SARS-CoV-2 RNA (RT-PCR) 06/18/23 11:34 MCV MCH MCHC RDW Plt Count MPV Immature Gran % (Auto) Neut % (Auto) Lymph % (Auto) [place] % (Auto) Eos % (Auto) Baso % (Auto) Lymph # (Auto) [place] # (Auto) Eos # (Auto) Baso # (Auto) Abs Immat Gran (auto) Absolute Neuts (auto) Absolute Nucleated RBC Nucleated RBC % (auto) VBG pH VBG pCO2 VBG pO2 VBG HCO3 VBG O2 Saturation VBG Base Excess Anion Gap Estim Creat Clear Calc Estimated GFR POC Glucose 326 H Random Glucose Lactic Acid Lactic Acid F/U @ 2Hr Lactic Acid F/U @ 4Hr Calcium Magnesium Total Bilirubin AST ALT Alkaline Phosphatase Total Protein Albumin Beta-Hydroxybutyrate Urine Color Urine Appearance Urine pH Ur Specific [place] Urine Protein Urine Glucose (UA) Urine Ketones Urine Blood Urine Nitrite Ur Leukocyte Esterase Urine RBC Urine WBC Ur Squamous Epith Cells Urine Bacteria Hyaline Casts Influenza Type A (PCR) Influenza Type B (PCR) RSV RNA Qual (PCR) SARS-CoV-2 RNA (RT-PCR) Assessment and Plan (1) Leucocytosis: Status: Acute (2) Uncontrolled type 1 diabetes mellitus with hyperglycemia: Status: Acute (3) Acidosis, lactic: Status: Acute (4) Diabetic gastroparesis: Status: Acute Plan 47 year old unfortunate white female with known history of Type 1 diabetes mellitus (on Insulin pump), diabetic gastroparesis, GERD, CAD, and bipolar disorder her with 1. Diabetic gastroparesis - here with abdominal pain with nausea an vomiting - likely secondary to diabetic gastroparesis - admit for symptom control - continue PRN analgesics and antiemetics 2. Type 1 diabetes Mellitus - not in DKA - she has an Insulin Pump which we will remove during her hospital stay - her daily dose if 60 units - start on Insulin Lantus 30 units since she is NPO - sliding scale insulin coverage 3. Acute serum lactic acid - noted with lactic acidosis of 4.8 - likely due excessive volume loss through vomiting - she has no signs to suggest an infection - holding of Abx at this time - continue IV fluids - continue to closely monitor 4. SIRS - meets criteria for SIRS with tachycardia, and leucocytosis - no obvious foci of infection - will continue IV fluids with LR - will hold off antibiotics for now. 5. Elevated Blood pressure - noted with elevated blood pressure - will hold Midodrine for now - resume Metoprolol 6. Leucocytosis - likely reactive, monitor Total time managing care of this patient today: 75 minutes. Quality Stroke Does the patient have a stroke diagnosis?: No VTE Prior VTE?: No VTE Risk Level:: Medical - moderate - high VTE Device Contraindication: N/A - Device Ordered VTE Drug Contraindication: N/A - Med Ordered
[2023-06-18 14:26] LABS: Glucose, Whole Blood 219 mg/dL (60-115)
[2023-06-18] MEDS: HYDROmorphone HCl 0.5 MG/0.5 ML SYRINGE 1 MG IVPUSH ×2 (16:44→20:56)
--- NOTE | 2023-06-18 16:51 | P.EN_ITS ---
Event Note Date of Service: 06/19/23 Event Note: Pt reassess and overall is doing better, HR now near 100, sugars have come down. Adding clear liquid diet. Patient uses insulin pump and she prefers to self manage the insulin at this point with her machine, we will be checking blood sugar as usual and record and act on it if needed in addition to her pump. Patient understand that she received a basal level of 30 units ( half her usual total daily uit) and therefore needs to take that into account while self b olusing. Recheck labs to unsure Bicab is not trending down. Time Spent With Patient Time: Total time managing care of this patient today ____ minutes.
[2023-06-18 17:04] LABS: Anion Gap 13 (12-20); Blood Urea Nitrogen 13 mg/dL (9-16); Calcium 9.6 mg/dL (8.4-10.2); Carbon Dioxide 24 mmol/L (22-29); Chloride 104 mmol/L (96-108); Creatinine Clr Calc Pharmacy 87.1; Estimated Glomerular Filt Rate > 60; Glucose Random 187 mg/dL (60-115); Potassium 3.8 mmol/L (3.3-5.1); Sodium 137 mmol/L (135-145)
[2023-06-18 20:38] LABS: Glucose, Whole Blood 199 mg/dL (60-115)
[2023-06-19] VITALS (13 sets, daily range): BP systolic 96–142; BP diastolic 54–78; PULSE 84–100; RESP 16–20; TEMP 36.1–36.9; O2SAT 95–98; BMI 28.1
[2023-06-19] MEDS: Subcutaneous Insulin Pump 1 EACH SUBCUT (00:12)
[2023-06-19] MEDS: Lactated Ringers 1,000 ML 125 ML IVCONT ×3 (00:14→17:22)
[2023-06-19] MEDS: LORazepam 2 MG/ML VIAL 1 MG IVPUSH ×4 (00:19→21:17)
[2023-06-19] MEDS: HYDROmorphone HCl 0.5 MG/0.5 ML SYRINGE 1 MG IVPUSH ×5 (01:09→21:19)
[2023-06-19] MEDS: ondansetron HCL 4 MG/2 ML VIAL IVPUSH ×3 (01:09→17:22)
[2023-06-19 03:36] LABS: Glucose, Whole Blood 97 mg/dL (60-115)
[2023-06-19] MEDS: Pantoprazole Sodium 40 MG/10 ML VIAL IVPUSH ×2 (04:47→17:16)
[2023-06-19 07:43] LABS: Hematocrit 31.2 % (37.0-47.0); Hemoglobin 10.2 g/dl (12.0-16.0); Mean Corpuscular HGB Conc 32.7 g/dl (31.0-35.0); Mean Corpuscular Hemoglobin 27.9 pg (27.0-33.0); Mean Corpuscular Volume 85.2 fL (80.0-98.0); Mean Platelet Volume 8.8 fL (9.4-12.3); Platelet Count 425 X10*3/uL (160-400); Red Blood Count 3.66 X10*6/uL (4.20-5.50); Red Cell Distribution Width 15.8 % (11.0-16.0); White Blood Count 16.7 X10*3/uL (4.8-10.8)
[2023-06-19 08:01] LABS: Anion Gap 10 (12-20); Blood Urea Nitrogen 13 mg/dL (9-16); Calcium 8.5 mg/dL (8.4-10.2); Carbon Dioxide 26 mmol/L (22-29); Chloride 105 mmol/L (96-108); Creatinine Clr Calc Pharmacy 97.2; Estimated Glomerular Filt Rate > 60; Glucose Random 88 mg/dL (60-115); Potassium 3.3 mmol/L (3.3-5.1); Sodium 138 mmol/L (135-145)
[2023-06-19] MEDS: lamoTRIgine 100 MG TABLET 200 MG PO ×2 (09:04→21:16)
[2023-06-19] MEDS: Metoprolol Tartrate 25 MG TABLET PO ×2 (09:04→21:16)
[2023-06-19] MEDS: risperiDONE 2 MG TABLET PO ×2 (09:04→21:17)
[2023-06-19] MEDS: 0.9 % Sodium Chloride Flush 3 ML SYRINGE IVFLUSH ×2 (09:05→15:01)
[2023-06-19] MEDS: Insulin Glargine,Hum.rec.anlog 100 UNIT/ML 10 ML VIAL 30 UNIT SUBCUT (09:05)
[2023-06-19] MEDS: Enoxaparin Sodium 40 MG/0.4 ML SYRINGE SUBCUT (09:06)
--- NOTE | 2023-06-19 11:19 | P.PNIM_ITS ---
Subjective Subjective Date of Service: 06/19/23 Interval History: seen in follow up for abdominal pain, n/v, hyperglycemia interval history: has persistent pain but overall is doing better, with less pain, her sugars are better controlled, and no dka, wbc remains but slightly down and no sings of infection Physical Exam 2 Vital Signs: Vital Signs: Last Vital Signs Temp 97.4 F 06/19/23 07:36 Pulse 100 06/19/23 07:36 Resp 16 06/19/23 09:03 BP 142/78 H 06/19/23 07:36 Pulse Ox 98 06/19/23 07:36 O2 Del Method Room Air 06/19/23 07:36 BMI result Body Mass Index 28.1 Const: Other: General: AO X 3, no acute distress Resp: CTA bilateral CVS: S1,S2,RRR GI: +BS, some abdominal tenterness, no distention Skin: No rash Neuro: motor grossly intact Psych: appropriate affect Objective Data Active Medications Acetaminophen (Acetaminophen 325 Mg Tablet) 650 mg PO Q6H PRN PRN Reason: Pain, Mild (Pain Scale 1-3) Al Hydroxide/Mg Hydroxide (Magnesium Hydrox/Alum Hydrox 30 Ml Oral.Susp) 30 ml PO Q4H PRN PRN Reason: Heartburn/Nausea Dextrose (Dextrose 50 % 25 Gm/50 Ml Syringe) 25 gm IVPUSH Q15M PRN; Protocol PRN Reason: per Hypoglycemia Standing Ord. Enoxaparin Sodium (Enoxaparin Sodium 40 Mg/0.4 Ml Syringe) 40 mg SUBCUT Q24H [facility] Last Admin: 06/19/23 09:06 Dose: 40 mg Documented By: JOHN Glucose (Glucose Gel 15 Gm Gel..Gram.) 15 gm PO Q15M PRN; Protocol PRN Reason: per Hypoglycemia Standing Ord. Hydromorphone HCl (Hydromorphone Hcl 0.5 Mg/0.5 Ml Syringe) 1 mg IVPUSH Q4H PRN; Protocol PRN Reason: Pain, Severe (Pain Scale 7-10) Last Admin: 06/19/23 09:03 Dose: 1 mg Documented By: JOHN Lactated Ringer's (Lr) 1,000 mls @ 150 mls/hr IVCONT .[id number] [facility] Last Admin: 06/19/23 09:16 Dose: 125 mls/hr Documented By: JOHN Insulin Glargine (Insulin Glargine,Hum.Rec.Anlog 100 Unit/Ml 10 Ml Vial) 30 unit SUBCUT DAILY [facility] Last Admin: 06/19/23 09:05 Dose: 30 unit Documented By: JOHN Insulin Human Lispro (Insulin Lispro 100 Unit/Ml 3 Ml Vial) 0 unit SUBCUT QIDACHS [facility]; Protocol Lamotrigine (Lamotrigine 100 Mg Tablet) 200 mg PO BID [facility] Last Admin: 06/19/23 09:04 Dose: 200 mg Documented By: JOHN Lorazepam (Lorazepam 2 Mg/Ml Vial) 1 mg IVPUSH QID PRN PRN Reason: Anxiety Last Admin: 06/19/23 09:03 Dose: 1 mg Documented By: JOHN Metoprolol Tartrate (Metoprolol Tartrate 25 Mg Tablet) 25 mg PO BID [facility]; Protocol Last Admin: 06/19/23 09:04 Dose: 25 mg Documented By: JOHN Ondansetron HCl (Ondansetron Hcl 4 Mg/2 Ml Vial) 4 mg IVPUSH Q8H PRN PRN Reason: Nausea and Vomiting Last Admin: 06/19/23 09:04 Dose: 4 mg Documented By: JOHN Pantoprazole Sodium (Pantoprazole Sodium 40 Mg/10 Ml Vial) 40 mg IVPUSH BID@0630,1630 [facility] Last Admin: 06/19/23 04:47 Dose: 40 mg Documented By: GAYATRI Risperidone (Risperidone 2 Mg Tablet) 2 mg PO BID [facility] Last Admin: 06/19/23 09:04 Dose: 2 mg Documented By: JOHN Sodium Chloride (0.9 % Sodium Chloride Flush 3 Ml Syringe) 3 ml IVFLUSH QSHIFT [facility] Last Admin: 06/19/23 09:05 Dose: 3 ml Documented By: JOHN Zolpidem Tartrate (Zolpidem Tartrate 5 Mg Tablet) 10 mg PO BEDTIME PRN PRN Reason: Insomnia Labs 06/19/23 07:33 06/19/23 07:33 Labs: Laboratory Results - last 24 hr 06/18/23 06/18/23 06/18/23 11:34 14:21 16:45 MCV MCH MCHC RDW Plt Count MPV Absolute Nucleated RBC Nucleated RBC % (auto) Anion Gap 13 Estim Creat Clear Calc 87.1 Estimated GFR > 60 POC Glucose 326 H 219 H Random Glucose 187 H Calcium 9.6 D 06/18/23 06/19/23 06/19/23 20:06 03:32 07:33 MCV 85.2 MCH 27.9 MCHC 32.7 RDW 15.8 Plt Count 425 H MPV 8.8 L Absolute Nucleated RBC 0.000 Nucleated RBC % (auto) 0.0 Anion Gap 10 L Estim Creat Clear Calc 97.2 Estimated GFR > 60 POC Glucose 199 H 97 Random Glucose 88 Calcium 8.5 D Microbiology Microbiology Results: Microbiology 06/17/23 22:26 Blood Culture - Preliminary Blood - Venous No growth after 24 hours. 06/17/23 22:26 Blood Culture - Preliminary Blood - Venous No growth after 24 hours. Assessment and Plan (1) Leucocytosis: Status: Acute (2) Uncontrolled type 1 diabetes mellitus with hyperglycemia: Status: Acute (3) Acidosis, lactic: Status: Acute (4) Diabetic gastroparesis: Status: Acute Plan 47 year old unfortunate white female with known history of Type 1 diabetes mellitus (on Insulin pump), diabetic gastroparesis, GERD, CAD, and bipolar disorder her with 1. Diabetic gastroparesis - here with abdominal pain with nausea an vomiting - likely secondary to diabetic gastroparesis -continue symptom control with antiemetic and pain meds dilaudid, advnce diet as [place] -continue IVF for now 2. Type 1 diabetes Mellitus - not in DKA -she uses insulin pump and prefer to management her own short acting insulin, however in the event that her pump not fucntioning or runs out of insulin or battery dies, we discussed that using Long acting of Lantus + short acting given in ss fation and once once her, and we can change the order again if she has her pump and once she back eating and readying to go her we will revert back to her usual use of insulin with the pump 3. Acute serum lactic acid, came down likely related to n/v, dehydration. 4. SIRS - meets criteria for SIRS with tachycardia, and leucocytosis, has chronic leukocytosis, no fever and likely reactive and will continue to closely monitor. Was given Zosyn once in ED but not continued due to no source of infection 5. Elevated Blood pressure, BP is now reasonably controlled. 6. Tachycardia--related to volume depleation, pain/anxiety. Now normal Need for inpt: management of gastroparesis, not able to take oral and closely monitoring of sugars in type 1 diabetic patient with brittle sugar control Quality Stroke Does the patient have a stroke diagnosis?: No VTE Prior VTE?: No VTE Risk Level:: Medical - moderate - high VTE Device Contraindication: N/A - Device Ordered VTE Drug Contraindication: N/A - Med Ordered
[2023-06-19 11:45] LABS: Glucose, Whole Blood 93 mg/dL (60-115)
--- NOTE | 2023-06-19 12:27 | MHC.CM.PN ---
EMR REVIEWED, PT W/GASTRPARESIS, PER HOSPITALIST PT IMPROVING, PLAN TO ADVANCE DIET TODAY ANTIC PT WILL DC HOME NO SERVICES ONCE MEDICALLY CLEARED, CM WILL CONT TO FOLLOW DC NEEDS.
[2023-06-19 16:36] LABS: Glucose, Whole Blood 82 mg/dL (60-115)
--- NOTE | 2023-06-19 16:54 | PM.EVENT ---
Event Note Date of Service: 06/20/23 Event Note: Pt again has her insulin pump with all supplies needed prefer to use it at this time and therefore stopping sub cut humalog Time Spent With Patient Time: Total time managing care of this patient today ____ minutes.
[2023-06-19 20:44] LABS: Glucose, Whole Blood 130 mg/dL (60-115)
[2023-06-19] MEDS: Dextrose 5 % and 0.45 % NaCl 1,000 ML 80 ML IVCONT (23:05)
[2023-06-20] VITALS (8 sets, daily range): BP systolic 106–160; BP diastolic 55–75; PULSE 86–101; RESP 17–20; TEMP 36.1–37.5; O2SAT 96–98
[2023-06-20 00:51] LABS: Glucose, Whole Blood 126 mg/dL (60-115)
[2023-06-20] MEDS: ondansetron HCL 4 MG/2 ML VIAL IVPUSH ×2 (02:37→21:37)
[2023-06-20] MEDS: HYDROmorphone HCl 0.5 MG/0.5 ML SYRINGE 1 MG IVPUSH (02:39)
[2023-06-20] MEDS: LORazepam 2 MG/ML VIAL 1 MG IVPUSH ×3 (05:44→23:03)
[2023-06-20] MEDS: Pantoprazole Sodium 40 MG/10 ML VIAL IVPUSH ×2 (05:44→16:31)
[2023-06-20 07:31] LABS: Glucose, Whole Blood 110 mg/dL (60-115)
[2023-06-20 07:48] LABS: Hematocrit 31.3 % (37.0-47.0); Hemoglobin 10.2 g/dl (12.0-16.0); Mean Corpuscular HGB Conc 32.6 g/dl (31.0-35.0); Mean Corpuscular Hemoglobin 27.6 pg (27.0-33.0); Mean Corpuscular Volume 84.8 fL (80.0-98.0); Mean Platelet Volume 9.2 fL (9.4-12.3); Platelet Count 417 X10*3/uL (160-400); Red Blood Count 3.69 X10*6/uL (4.20-5.50); Red Cell Distribution Width 15.4 % (11.0-16.0); White Blood Count 11.8 X10*3/uL (4.8-10.8)
[2023-06-20 07:54] LABS: Anion Gap 11 (12-20); Blood Urea Nitrogen 6 mg/dL (9-16); Calcium 8.7 mg/dL (8.4-10.2); Carbon Dioxide 29 mmol/L (22-29); Chloride 103 mmol/L (96-108); Creatinine Clr Calc Pharmacy 97.2; Estimated Glomerular Filt Rate > 60; Glucose Random 112 mg/dL (60-115); Potassium 3.1 mmol/L (3.3-5.1); Sodium 140 mmol/L (135-145)
[2023-06-20] MEDS: Metoprolol Tartrate 25 MG TABLET PO ×2 (09:07→21:27)
[2023-06-20] MEDS: lamoTRIgine 100 MG TABLET 200 MG PO ×2 (09:07→21:28)
[2023-06-20] MEDS: Enoxaparin Sodium 40 MG/0.4 ML SYRINGE SUBCUT (09:07)
[2023-06-20] MEDS: Potassium Chloride Packet 20 MEQ PACKET 40 MEQ PO (09:07)
[2023-06-20] MEDS: risperiDONE 2 MG TABLET PO ×2 (09:07→21:27)
[2023-06-20] MEDS: HYDROmorphone HCl 2 MG TABLET PO ×4 (09:09→21:37)
[2023-06-20 09:16] LABS: Magnesium 1.9 mg/dL (1.6-2.6)
[2023-06-20] MEDS: Dextrose 5 % and 0.45 % NaCl 1,000 ML 80 ML IVCONT ×2 (10:57→23:04)
[2023-06-20 11:10] LABS: Glucose, Whole Blood 97 mg/dL (60-115)
--- NOTE | 2023-06-20 12:07 | HO.PM.IMPN ---
Subjective Subjective Date of Service: 06/20/23 Interval History: seen in follow up for abdominal pain, n/v, hyperglycemia interval history: pain is better, blood sugar controlled with pain, on liquid diet but taking minimu Review of Systems as above Physical Exam Vital Signs: Vital Signs: Last Vital Signs Temp 97.4 F 06/20/23 11:01 Pulse 100 06/20/23 11:01 Resp 18 06/20/23 11:01 BP 124/60 06/20/23 11:16 Pulse Ox 98 06/20/23 11:01 O2 Del Method Room Air 06/20/23 11:01 BMI result Body Mass Index 28.1 Const: Other: General: AO X 3, no acute distress Resp: CTA bilateral CVS: S1,S2,RRR GI: +BS, mild lower abdominal tenterness, no distention Skin: No rash Neuro: motor grossly intact Psych: appropriate affect Objective Data Active Medications Acetaminophen (Acetaminophen 325 Mg Tablet) 650 mg PO Q6H PRN PRN Reason: Pain, Mild (Pain Scale 1-3) Al Hydroxide/Mg Hydroxide (Magnesium Hydrox/Alum Hydrox 30 Ml Oral.Susp) 30 ml PO Q4H PRN PRN Reason: Heartburn/Nausea Dextrose (Dextrose 50 % 25 Gm/50 Ml Syringe) 25 gm IVPUSH Q15M PRN; Protocol PRN Reason: per Hypoglycemia Standing Ord. Enoxaparin Sodium (Enoxaparin Sodium 40 Mg/0.4 Ml Syringe) 40 mg SUBCUT Q24H [facility] Last Admin: 06/20/23 09:07 Dose: 40 mg Documented By: ABIGAIL Glucose (Glucose Gel 15 Gm Gel..Gram.) 15 gm PO Q15M PRN; Protocol PRN Reason: per Hypoglycemia Standing Ord. Hydromorphone HCl (Hydromorphone Hcl 2 Mg Tablet) 2 mg PO Q4H PRN PRN Reason: Pain, Severe (Pain Scale 7-10) Last Admin: 06/20/23 09:09 Dose: 2 mg Documented By: ABIGAIL Hydromorphone HCl (Hydromorphone Hcl 0.5 Mg/0.5 Ml Syringe) 0.5 mg IVPUSH Q4H PRN; Protocol PRN Reason: Pain, Severe (Pain Scale 7-10) Dextrose/Sodium Chloride (D51/2ns) 1,000 mls @ 80 mls/hr IVCONT .[id number] [facility] Last Admin: 06/20/23 10:57 Dose: 80 mls/hr Documented By: ABIGAIL Insulin Pump (Subcutaneous Insulin Pump) 1 each SUBCUT QIDACHS [facility]; Protocol Last Admin: 06/20/23 11:01 Dose: Not Given Documented By: ABIGAIL Non-Admin Reason: patient manages own insulin pump Lamotrigine (Lamotrigine 100 Mg Tablet) 200 mg PO BID [facility] Last Admin: 06/20/23 09:07 Dose: 200 mg Documented By: ABIGAIL Lorazepam (Lorazepam 2 Mg/Ml Vial) 1 mg IVPUSH QID PRN PRN Reason: Anxiety Last Admin: 06/20/23 05:44 Dose: 1 mg Documented By: GAYATRI Metoprolol Tartrate (Metoprolol Tartrate 25 Mg Tablet) 25 mg PO BID [facility]; Protocol Last Admin: 06/20/23 09:07 Dose: 25 mg Documented By: ABIGAIL Ondansetron HCl (Ondansetron Hcl 4 Mg/2 Ml Vial) 4 mg IVPUSH Q8H PRN PRN Reason: Nausea and Vomiting Last Admin: 06/20/23 02:37 Dose: 4 mg Documented By: GAYATRI Pantoprazole Sodium (Pantoprazole Sodium 40 Mg/10 Ml Vial) 40 mg IVPUSH BID@0630,1630 [facility] Last Admin: 06/20/23 05:44 Dose: 40 mg Documented By: GAYATRI Risperidone (Risperidone 2 Mg Tablet) 2 mg PO BID [facility] Last Admin: 06/20/23 09:07 Dose: 2 mg Documented By: ABIGAIL Sodium Chloride (0.9 % Sodium Chloride Flush 3 Ml Syringe) 3 ml IVFLUSH QSHIFT [facility] Last Admin: 06/20/23 09:07 Dose: Not Given Documented By: ABIGAIL Non-Admin Reason: Previously Administered Zolpidem Tartrate (Zolpidem Tartrate 5 Mg Tablet) 10 mg PO BEDTIME PRN PRN Reason: Insomnia Labs 06/20/23 06:48 06/20/23 06:48 Labs: Laboratory Results - last 24 hr 06/19/23 06/19/23 06/20/23 16:31 20:27 00:48 MCV MCH MCHC RDW Plt Count MPV Absolute Nucleated RBC Nucleated RBC % (auto) Anion Gap Estim Creat Clear Calc Estimated GFR POC Glucose 82 130 H 126 H Random Glucose Calcium Magnesium 06/20/23 06/20/23 06/20/23 06:48 07:26 11:05 MCV 84.8 MCH 27.6 MCHC 32.6 RDW 15.4 Plt Count 417 H MPV 9.2 L Absolute Nucleated RBC 0.000 Nucleated RBC % (auto) 0.0 Anion Gap 11 L Estim Creat Clear Calc 97.2 Estimated GFR > 60 POC Glucose 110 97 Random Glucose 112 Calcium 8.7 Magnesium 1.9 Microbiology Microbiology Results: Microbiology 06/17/23 22:26 Blood Culture - Preliminary Blood - Venous No growth after 48 hours. 06/17/23 22:26 Blood Culture - Preliminary Blood - Venous No growth after 48 hours. Assessment and Plan (1) Uncontrolled type 1 diabetes mellitus with hyperglycemia: Status: Acute (2) Acidosis, lactic: Status: Acute (3) Diabetic gastroparesis: Status: Acute Plan 47 year old female with known history of Type 1 diabetes mellitus (on Insulin pump), diabetic gastroparesis, GERD, CAD, and bipolar disorder her with 1. Diabetic gastroparesis, acute on chronic, typically associated with N/V and abd pain. Symptomatically treated with hydration, IV pain meds, antiemetic and is better. Will continue to advance diet, back of IV pain med and add oral pain med and ultimately dc IVF, once eating consistently 2. Type 1 diabetes Mellitus, she uses insulin pump which she prefers to self manage and follow hospital protocol, we are checking glucose and cross checking with her machine, if there is any doubt her sugars are not well managed with the pump we will switch to standard sub cut insulin. 3. Acute serum lactic acid, came down likely related to n/v, dehydration. 4. SIRS-- - meets criteria for SIRS with tachycardia, and leucocytosis, has chronic leukocytosis, no fever and likely reactive and will continue to closely monitor. Was given Zosyn once in ED but not continued due to no source of infection. WBC is now trending down 5. HTN--controlled, continue metorpolol 6. Tachycardia--likely related to volume depleation, pain/anxiety. Resolved. Need for inpt: management of gastroparesis, not able to take oral and closely monitoring of sugars in type 1 diabetic patient with brittle sugar control Will discharge home if tolerate regular percy Quality Stroke Does the patient have a stroke diagnosis?: No VTE Prior VTE?: No VTE Risk Level:: Medical - moderate - high VTE Device Contraindication: N/A - Device Ordered VTE Drug Contraindication: N/A - Med Ordered
--- NOTE | 2023-06-20 14:56 | P.CNGI_ITS ---
History of Present Illness Data of Consult Service Date: 06/20/23 Requesting physician: Haim Moss Primary Care Provider: Yulisa Avila MD [facility] Reason for consult: Gastroparesis with persistent symptoms 47 YF with Type 1 diabetes mellitus (on Insulin pump), diabetic gastroparesis, GERD, CAD, and bipolar disorder admitted to [facility] on 06/18/23 with persistent nausea and vomiting associated with severe (10/10 intensity) generalized abdominal pain. Pt denied diarrhea, fevers or chills. Pt has had multiple past hospitalizations similar symptoms and requires a short hospital stay for symptomatic care. Pt reports she had G POEM (Gastric Pyloromyotomy) for gastroparesis [place] [address] De La Fuente and Dr Anderson and has not been hospitalized with Gastroparesis flare since then (her hospitalizations have been for UTIs). She has gained 50 lbs since 2019. She reports having an episode of black stools 5 weeks ago and none since then. Pt continues to follow up with Dr Solo at [facility] and her more recent symptoms have been attributed to pancreaatitis. She was seen 3 weeks ago and was prescribed Cipro for a UTI Initial evaluation on arrival to the ED was notable for persistent tachycardia with hear rate between 110 - 130's, elevated blood pressure and respiratory rate. Lab work done revealed presence of a leucocytosis of 15.5 k/mm3, elevated platelet count at 517, elevated blood sugar (297 mg/dl) and lactic acid (4.8 mmol/L). Pt states she is feeling better today and has been tolerating a liquid diet and vomited after taking 2-3 bites of solid food. 06/18/[address] SCAN SHOWED: Bilateral nonobstructing renal calculi/renal vascular calcification. Mild urinary bladder distention with a small amount of air within the urinary bladder. Correlation with urinalysis needed. Prominent bilateral renal collecting systems and ureters without ureteral calculi likely related to urinary bladder distention. Pt was treated with IV Zosyn and Zofran & Droperidol for nausea/vomiting and 50 mcg of IV Fentanyl with no improvement in her symptoms. She was admitted for continued symptomatic care. Of note, pt has been followed in the GI clinic since 2013 for Gastroparesis diagnosed in 2012 - gastric emptying study showed 87% retention after 4 hours She was diagnosed with DM >20 yrs ago and has symptoms of gastroparesis for the past 15 yrs and has been followed at [facility]. She is on treatment with metoclopramide three times a day, ondansetron and a PPI. She denies use of chronic pain medications. She was scheduled to see a ? GI/surgeon at [facility] for pyloric stent placement for management of gastroparesis and has to cancel her appointment due to being admitted to the hospital. She had a gastric emptying study at [facility] in the past few months which per pt showed severe gastroparesis. She reports having a colonoscopy > 10 yrs ago at [facility]. PAST GI HISTORY BY REVIEW OF MEDICAL RECORDS: Records from [facility] were reviewed: Gastric Emptying Study on 12/04/17 showed: 1 hour: 132% (normal < 9-%) 2 hours: 134% (normal < 60%) 4 hours: 86% (normal < 10%) Pt is followed by Dr Cutler in GI and was last seen on 01/24/18. Pt continues to be symptomatic on metoclopramide 10 mg 3 times daily, and max dose PPI - Pantoprazole 40 mg twice daily and omperazole. She is non-compliant with a gastroparesis diet and often binges and we have counseled her on the importance of small meals and liquid supplementation. Discussed various options to include Domperidone, erythromycin and baclofen. She was advised to start Erythromycin 40 mg 3 times daily before meals. She was referred to Dr De La Fuente for consideration for GPOEM and to determine need for pre-operative pyloric stenting or botox injecton as a trial for responses to GPOEM. Pt was asked regarding the Erythromycin and she stated that she did not want to tae any additional medications. Mar 2018 EGD showed: ESOPHAGUS; Normal STOMACH: Small amount of retained food and fluid due to gastroparesis. Submucosal hemorrhages due to retching DUODENUM: Normal No source found for GI bleeding or anemia. Likley nutritional verus related to celiac sprue. Plan: Await pathology results. Continue present medications. Patient will FU with her GI physician at [facility] for management of Gastroparesis. If biopsies are normal, colonoscopy can be considered as an outpatient. Above findings were discussed with Yumiko and her Review of Systems 2 Review of Systems: Yes all other systems are reviewed and are negative PMFSH Past Medical History Medical History Diabetic gastroparesis Herpes zoster Status post fall Recurrent UTI NSTEMI (non-ST elevated myocardial infarction) Diabetic gastroparesis Anxiety Bipolar 1 disorder Pancreatitis Gastroparesis Diabetes Functional capacity: independent ambulation Surgical History Surgical History History of cholecystectomy History of tonsillectomy History of ERCP H/O pyloroplasty History of appendectomy H/O: hysterectomy Social History Social History Household Members: Family Housing: Other Do you presently have visiting nurse or other home services: No Unable to assess alcohol history related to: Unknown Alcohol intake: never Comment: sleeping Patient Tobacco Use Status: Former Tobacco user Tobacco use type: Cigarette e-Cigarette/Vaping Use: Never Used Second Hand Smoke Exposure: No Substance Use Type: Marijuana Advance Directives Date on File: 12/03/22 service: No Current occupational status: disabled Cognitive needs: No Hearing needs: No Vision needs: No Meds Allergies Allergy/AdvReac Type Severity Reaction Status Date / Time morphine [MORPHINE] Allergy Intermediate RASH, Verified 04/18/23 15:08 hives, hives mushroom Allergy Intermediate HIVES/RASH Verified 04/18/23 15:08 mushroom Allergy Unknown throat Uncoded 04/18/23 15:08 closes up/difficult breathing mushrooms Allergy Unknown anaphylaxis Uncoded 04/18/23 15:08 Active Medications: Current Medications Acetaminophen (Acetaminophen 325 Mg Tablet) 650 mg PO Q6H PRN PRN Reason: Pain, Mild (Pain Scale 1-3) Al Hydroxide/Mg Hydroxide (Magnesium Hydrox/Alum Hydrox 30 Ml Oral.Susp) 30 ml PO Q4H PRN PRN Reason: Heartburn/Nausea Dextrose (Dextrose 50 % 25 Gm/50 Ml Syringe) 25 gm IVPUSH Q15M PRN; Protocol PRN Reason: per Hypoglycemia Standing Ord. Enoxaparin Sodium (Enoxaparin Sodium 40 Mg/0.4 Ml Syringe) 40 mg SUBCUT Q24H [facility] Last Admin: 06/20/23 09:07 Dose: 40 mg Glucose (Glucose Gel 15 Gm Gel..Gram.) 15 gm PO Q15M PRN; Protocol PRN Reason: per Hypoglycemia Standing Ord. Hydromorphone HCl (Hydromorphone Hcl 2 Mg Tablet) 2 mg PO Q4H PRN PRN Reason: Pain, Severe (Pain Scale 7-10) Last Admin: 06/20/23 13:17 Dose: 2 mg Hydromorphone HCl (Hydromorphone Hcl 0.5 Mg/0.5 Ml Syringe) 0.5 mg IVPUSH Q4H PRN; Protocol PRN Reason: Pain, Severe (Pain Scale 7-10) Dextrose/Sodium Chloride (D51/2ns) 1,000 mls @ 80 mls/hr IVCONT .[id number] [facility] Last Admin: 06/20/23 10:57 Dose: 80 mls/hr Insulin Pump (Subcutaneous Insulin Pump) 1 each SUBCUT QIDACHS [facility]; Protocol Last Admin: 06/20/23 11:01 Dose: Not Given Lamotrigine (Lamotrigine 100 Mg Tablet) 200 mg PO BID [facility] Last Admin: 06/20/23 09:07 Dose: 200 mg Lorazepam (Lorazepam 2 Mg/Ml Vial) 1 mg IVPUSH QID PRN PRN Reason: Anxiety Last Admin: 06/20/23 05:44 Dose: 1 mg Metoprolol Tartrate (Metoprolol Tartrate 25 Mg Tablet) 25 mg PO BID [facility]; Protocol Last Admin: 06/20/23 09:07 Dose: 25 mg Ondansetron HCl (Ondansetron Hcl 4 Mg/2 Ml Vial) 4 mg IVPUSH Q8H PRN PRN Reason: Nausea and Vomiting Last Admin: 06/20/23 02:37 Dose: 4 mg Pantoprazole Sodium (Pantoprazole Sodium 40 Mg/10 Ml Vial) 40 mg IVPUSH BID@0630,1630 [facility] Last Admin: 06/20/23 05:44 Dose: 40 mg Risperidone (Risperidone 2 Mg Tablet) 2 mg PO BID [facility] Last Admin: 06/20/23 09:07 Dose: 2 mg Sodium Chloride (0.9 % Sodium Chloride Flush 3 Ml Syringe) [facility] Last Admin: 06/20/23 09:07 Dose: Not Given Zolpidem Tartrate (Zolpidem Tartrate 5 Mg Tablet) 10 mg PO BEDTIME PRN PRN Reason: Insomnia Home Medications Medication Instructions Recorded Confirmed Last Taken Type lamotrigine 200 mg tablet 200 mg PO BID 1006/18/23 06/17/23 08:00 History lorazepam 1 mg tablet 1 mg PO TID PRN Anxiety 05/11/20 06/18/23 06/17/23 08:00 History zolpidem 10 mg tablet 10 mg PO BEDTIME 05/11/20 06/18/23 06/16/23 22:00 History insulin aspart U-100 100 unit/mL 0 unit subcut DIRECTED 06/01/20 06/18/23 11/27/22 History (3 mL) subcutaneous pen (Novolog FlexPen U-100 Insulin aspart) risperidone 2 mg tablet 1 tab PO BID 09/13/21 06/18/23 06/17/23 08:00 History Physical Exam 2 Vital Signs: Vital Signs: Last Vital Signs Temp 97.4 F 06/20/23 11:01 Pulse 100 06/20/23 11:01 Resp 18 06/20/23 11:01 BP 124/60 06/20/23 11:16 Pulse Ox 98 06/20/23 11:01 O2 Del Method Room Air 06/20/23 11:01 BMI result Body Mass Index 28.1 Const: General: no acute distress Nutritional Appearance: overweight O rientation/consciousness: patient oriented x3 Limitations: no limitations HEENT: Head: Yes normal to inspection Ears: hearing grossly normal bilaterally Eyes: Sclerae: sclerae normal Pupils: Equal, round and reactive pupils present Neck: Neck: Yes normal visual inspection Chest: Chest palpation & inspection: normal inspection of the chest Resp: Effort & Inspection: normal respiratory effort Auscultation: clear to auscultation bilaterally Cardio: Palpation: normal PMI Rate: regular rate Rhythm: regular rhythm Heart sounds: S1 normal heart sound present, S2 normal heart sound present and no murmurs GI: Palpation (GI): Soft to palpation, Tenderness to palpation present (GI) (mild diffuse abdominal tenderness without rebound) and No hepatosplenomegaly present Auscultation: normal bowel sounds Rectal Exam - Female: deferred Skin: General skin exam: no rashes or lesions noted Neuro: General: patient oriented x3, gait normal and moves all extremities Cranial nerves: Yes Equal, round and reactive pupils present Psych: Appearance: grossly normal Mental Status: mental status grossly normal Results Labs 06/20/23 06:48 06/22/23 06:34 Labs: Short CBC 06/20/23 Range/Units 06:48 WBC 11.8 H (4.8-10.8) X10*3/uL Hgb 10.2 L (12.0-16.0) g/dl Hct 31.3 L (37.0-47.0) % Plt Count 417 H (160-400) X10*3/uL BMP 06/20/23 06:48 Sodium 140 Potassium 3.1 L Chloride 103 Carbon Dioxide 29 BUN 6 L Creatinine 0.75 Calcium 8.7 Microbiology Microbiology Results: Microbiology 06/17/23 22:26 Blood - Venous Blood Culture - Preliminary No growth after 48 hours. 06/17/23 22:26 Blood - Venous Blood Culture - Preliminary No growth after 48 hours. Assessment and Plan (1) GERD (gastroesophageal reflux disease): Status: Acute (2) Diabetic gastroparesis: Status: Acute Plan 47 YF with Type 1 diabetes mellitus (on Insulin pump), diabetic gastroparesis, GERD, CAD, and bipolar disorder admitted to [facility] on [facility]/18/23 with persistent nausea and vomiting associated with severe (10/10 intensity) generalized abdominal pain. Pt denied diarrhea, fevers or chills. Pt has had multiple past hospitalizations similar symptoms and requires a short hospital stay for symptomatic care. Pt reports she had G POEM (Gastric Pyloromyotomy) [place] gastroparesis [place] [address] De La Fuente and Dr Anderson and has not been hospitalized with Gastroparesis flare since then RECOMMENDATIONS: 1. Agree with IV fluids, IV pain medications, anti-emetics and PPI 2. Check serum lipase and pancreatic elastase to rule out chronic pancreatitis/pancreatic insufficiency 3. Advance diet to a full liquid diet in the am 4. Pt plans to FU with [facility] after discharge Procedures Date of Service Date of Service: 06/30/23
[2023-06-20] MEDS: 0.9 % Sodium Chloride Flush 3 ML SYRINGE IVFLUSH ×2 (16:31→21:28)
[2023-06-20 16:55] LABS: Glucose, Whole Blood 124 mg/dL (60-115)
[2023-06-20 21:32] LABS: Glucose, Whole Blood 124 mg/dL (60-115)
[2023-06-20] MEDS: Zolpidem Tartrate 5 MG TABLET 10 MG PO (21:37)
[2023-06-21] MEDS: HYDROmorphone HCl 2 MG TABLET PO (03:38)
[2023-06-21 04:00] VITALS: BP 111/75; PULSE 93; RESP 20; TEMP 37; O2SAT 98
[2023-06-21] MEDS: Pantoprazole Sodium 40 MG/10 ML VIAL IVPUSH ×2 (06:20→16:42)
[2023-06-21 07:24] VITALS: BP 127/75; PULSE 91; RESP 20; TEMP 36.8; O2SAT 95
[2023-06-21 07:30] LABS: Glucose, Whole Blood 178 mg/dL (60-115)
[2023-06-21] MEDS: LORazepam 2 MG/ML VIAL 1 MG IVPUSH ×3 (08:25→20:51)
[2023-06-21] MEDS: HYDROmorphone HCl 0.5 MG/0.5 ML SYRINGE IVPUSH ×4 (08:27→20:50)
[2023-06-21] MEDS: Enoxaparin Sodium 40 MG/0.4 ML SYRINGE SUBCUT (08:28)
[2023-06-21] MEDS: ondansetron HCL 4 MG/2 ML VIAL IVPUSH ×2 (08:28→12:31)
[2023-06-21] MEDS: Metoprolol Tartrate 25 MG TABLET PO ×2 (08:29→20:49)
[2023-06-21] MEDS: lamoTRIgine 100 MG TABLET 200 MG PO ×2 (08:29→20:49)
[2023-06-21] MEDS: risperiDONE 2 MG TABLET PO ×2 (08:29→20:49)
[2023-06-21] MEDS: 0.9 % Sodium Chloride Flush 3 ML SYRINGE IVFLUSH ×2 (08:30→15:07)
[2023-06-21 08:32] LABS: Anion Gap 10 (12-20); Blood Urea Nitrogen 4 mg/dL (9-16); Calcium 8.4 mg/dL (8.4-10.2); Carbon Dioxide 28 mmol/L (22-29); Chloride 105 mmol/L (96-108); Estimated Glomerular Filt Rate > 60; Glucose Random 186 mg/dL (60-115); Lipase 6 U/L (8-78); Potassium 3.6 mmol/L (3.3-5.1); Sodium 139 mmol/L (135-145)
--- NOTE | 2023-06-21 10:28 | MHC.CM.PN ---
PER MULTIDISCIPLINARY ROUNDS ANTIC PT WILL DC HOME SELF CARE [facility] SHE IS TOLERATING DIET, FOR TRANSPORT.
[2023-06-21 11:32] VITALS: BP 150/70; PULSE 89; RESP 20; TEMP 37; O2SAT 96
[2023-06-21] MEDS: Subcutaneous Insulin Pump 1 EACH SUBCUT (11:45)
[2023-06-21 11:47] LABS: Glucose, Whole Blood 264 mg/dL (60-115)
[2023-06-21] MEDS: Dextrose 5 % and 0.45 % NaCl 1,000 ML 80 ML IVCONT (12:38)
[2023-06-21 14:57] LABS: Glucose, Whole Blood 339 mg/dL (60-115)
[2023-06-21] MEDS: cefTRIAXone sodium 1 GM in 0.9 % Sodium Chloride 50 ML IV (15:04)
[2023-06-21] MEDS: Insulin Lispro 100 UNIT/ML 3 ML VIAL SUBCUT ×2 (15:06→23:19)
[2023-06-21] MEDS: Insulin Glargine,Hum.rec.anlog 100 UNIT/ML 10 ML VIAL 25 UNIT SUBCUT (15:06)
--- NOTE | 2023-06-21 15:52 | HO.PM.IMPN ---
Subjective Subjective Date of Service: 06/21/23 Interval History: She was doing well this morning and asked diet to be advanced and hopefully go home later. Unfortunately, unpon eating he had more pain, n/v and not able to tolerate any more diet. Her insulin pump is no longer working and so it is removed and short acting and long acting insulin added, and to continue IVF, additionall 1/2 blood cultures from 06/17 is now been reported as GPR, she has no fever, and WBC has infact gone down. Review of Systems abd pain, n/v Physical Exam Vital Signs: Vital Signs: Last Vital Signs Temp 98.6 F 06/21/23 11:32 Pulse 89 06/21/23 11:32 Resp 20 06/21/23 11:32 BP 150/70 H 06/21/23 11:32 Pulse Ox 96 06/21/23 11:32 O2 Del Method Room Air 06/21/23 11:32 BMI result Body Mass Index 28.1 Const: Other: General: AO X 3, no acute distress Resp: CTA bilateral CVS: S1,S2,RRR GI: +BS,, no distention, non specific tenderness Skin: No rash Neuro: motor grossly intact Psych: appropriate affect Objective Data Active Medications Acetaminophen (Acetaminophen 325 Mg Tablet) 650 mg PO Q6H PRN PRN Reason: Pain, Mild (Pain Scale 1-3) Al Hydroxide/Mg Hydroxide (Magnesium Hydrox/Alum Hydrox 30 Ml Oral.Susp) 30 ml PO Q4H PRN PRN Reason: Heartburn/Nausea Dextrose (Dextrose 50 % 25 Gm/50 Ml Syringe) 25 gm IVPUSH Q15M PRN; Protocol PRN Reason: per Hypoglycemia Standing Ord. Enoxaparin Sodium (Enoxaparin Sodium 40 Mg/0.4 Ml Syringe) 40 mg SUBCUT Q24H [facility] Last Admin: 06/21/23 08:28 Dose: 40 mg Documented By: WARREN Glucose (Glucose Gel 15 Gm Gel..Gram.) 15 gm PO Q15M PRN; Protocol PRN Reason: per Hypoglycemia Standing Ord. Hydromorphone HCl (Hydromorphone Hcl 2 Mg Tablet) 2 mg PO Q4H PRN PRN Reason: Pain, Severe (Pain Scale 7-10) Last Admin: 06/21/23 03:38 Dose: 2 mg Documented By: LANDON Hydromorphone HCl (Hydromorphone Hcl 0.5 Mg/0.5 Ml Syringe) 0.5 mg IVPUSH Q4H PRN; Protocol PRN Reason: Pain, Severe (Pain Scale 7-10) Last Admin: 06/21/23 12:36 Dose: 0.5 mg Documented By: WARREN Dextrose/Sodium Chloride (D51/2ns) 1,000 mls @ 80 mls/hr IVCONT .[id number] [facility] Last Admin: 06/21/23 12:38 Dose: 80 mls/hr Documented By: WARREN Ceftriaxone Sodium 1 gm/ (Sodium Chloride) 50 mls @ 100 mls/hr IV Q24H [facility] Last Infusion: 06/21/23 15:49 Dose: Infused Documented By: WARREN Insulin Glargine (Insulin Glargine,Hum.Rec.Anlog 100 Unit/Ml 10 Ml Vial) 25 unit SUBCUT DAILY [facility] Last Admin: 06/21/23 15:06 Dose: 25 unit Documented By: WARREN Insulin Human Lispro (Insulin Lispro 100 Unit/Ml 3 Ml Vial) 0 unit SUBCUT Q6H [facility]; Protocol Last Admin: 06/21/23 15:06 Dose: 8 unit Documented By: WARREN Lamotrigine (Lamotrigine 100 Mg Tablet) 200 mg PO BID [facility] Last Admin: 06/21/23 08:29 Dose: 200 mg Documented By: WARREN Lorazepam (Lorazepam 2 Mg/Ml Vial) 1 mg IVPUSH QID PRN PRN Reason: Anxiety Last Admin: 06/21/23 15:12 Dose: 1 mg Documented By: WARREN Metoprolol Tartrate (Metoprolol Tartrate 25 Mg Tablet) 25 mg PO BID [facility]; Protocol Last Admin: 06/21/23 08:29 Dose: 25 mg Documented By: WARREN Ondansetron HCl (Ondansetron Hcl 4 Mg/2 Ml Vial) 4 mg IVPUSH Q8H PRN PRN Reason: Nausea and Vomiting Last Admin: 06/21/23 12:31 Dose: 4 mg Documented By: WARREN Comments: ok to give the dose early per Dr. Moss Risperidone (Risperidone 2 Mg Tablet) 2 mg PO BID [facility] Last Admin: 06/21/23 08:29 Dose: 2 mg Documented By: WARREN Sodium Chloride (0.9 % Sodium Chloride Flush 3 Ml Syringe) 3 ml IVFLUSH QSHIFT [facility] Last Admin: 06/21/23 15:07 Dose: 3 ml Documented By: RAINEORRJennifer Zolpidem Tartrate (Zolpidem Tartrate 5 Mg Tablet) 10 mg PO BEDTIME PRN PRN Reason: Insomnia Last Admin: 06/20/23 21:37 Dose: 10 mg Documented By: ASTERYESAN Labs 06/20/23 06:48 06/21/23 07:22 Labs: Laboratory Results - last 24 hr 06/20/23 06/20/23 06/21/23 16:52 21:28 07:22 Hold Purple Top SEE NOTE Anion Gap 10 L Estim Creat Clear Calc 96.0 Estimated GFR > 60 POC Glucose 124 H 124 H Random Glucose 186 H Calcium 8.4 Lipase 6 L 06/21/23 06/21/23 06/21/23 07:26 11:36 14:54 Hold Purple Top Anion Gap Estim Creat Clear Calc Estimated GFR POC Glucose 178 H 264 H 339 H Random Glucose Calcium Lipase Microbiology Microbiology Results: Microbiology 06/17/23 22:26 Blood Culture - Preliminary Blood - Venous Prelim: GPR Gram Stain only Assessment and Plan (1) Uncontrolled type 1 diabetes mellitus with hyperglycemia: Status: Acute (2) Acidosis, lactic: Status: Acute (3) Diabetic gastroparesis: Status: Acute Plan 47 year old female with known history of Type 1 diabetes mellitus (on Insulin pump), diabetic gastroparesis, GERD, CAD, and bipolar disorder her with 1. Diabetic gastroparesis, acute on chronic, associated with N/V and abd pain and has been protracted. Symptomatically treated with hydration, IV pain meds, antiemetic and is better. Will continue to advance diet as tolerated. GI has seen her.. see recommendation 2. Type 1 diabetes Mellitus, was using insulin via pump, but the pump no longer working, switching to Lantus + Humalog, POC q6, if not eating by mouth, IVF with some sugar. BMP normal 3. Acute serum lactic acid, came down likely related to n/v, dehydration. 4. SIRS--WBC + Tachy, both resolved. Received 1 time zosyn in ED, not continued 5. GPR, 07/18 from 06/17, no fever, wbc down, suspect possible contamination -Empiric Ceftriaxone, discussed with ID 5. HTN--acceotable control, continue metorpolol 6. Tachycardia--resolved, continue metoprolol need for inpt: cyclical vomiting, brittle type 1 dm. Needing IVF, insulin with very close monitoring of sugar, labs to avert DKA plan discussed with patient Quality Stroke Does the patient have a stroke diagnosis?: No VTE Prior VTE?: No VTE Risk Level:: Medical - moderate - high VTE Device Contraindication: N/A - Device Ordered VTE Drug Contraindication: N/A - Med Ordered
--- NOTE | 2023-06-21 16:33 | W.PM.IDCN ---
History of Present Illness Data of Consult Service Date: 06/21/23 Requesting physician: Haim Moss Primary Care Provider: Yulisa Avila MD HPI Reason for consult: bacteremia She presents with abdominal discomfort which she has from gastroparesis. She has blood cultures ?gram negative rods She has no diarrhea. Review of Systems Review of Systems: Yes all other systems are reviewed and are negative PMFSH Past Medical History Medical History Diabetic gastroparesis Herpes zoster Status post fall Recurrent UTI NSTEMI (non-ST elevated myocardial infarction) Diabetic gastroparesis Anxiety Bipolar 1 disorder Pancreatitis Gastroparesis Diabetes Functional capacity: independent ambulation Family History Family history: reviewed and not pertinent Surgical History Surgical History History of cholecystectomy History of tonsillectomy History of ERCP H/O pyloroplasty History of appendectomy H/O: hysterectomy Social History Social History Household Members: Family Housing: Other Do you presently have visiting nurse or other home services: No Unable to assess alcohol history related to: Unknown Alcohol intake: never Comment: sleeping Patient Tobacco Use Status: Former Tobacco user Tobacco use type: Cigarette e-Cigarette/Vaping Use: Never Used Second Hand Smoke Exposure: No Substance Use Type: Marijuana Advance Directives Date on File: 12/03/22 service: No Current occupational status: disabled Cognitive needs: No Hearing needs: No Vision needs: No Meds Allergies Allergy/AdvReac Type Severity Reaction Status Date / Time morphine [MORPHINE] Allergy Intermediate RASH, Verified 04/18/23 15:08 hives, hives mushroom Allergy Intermediate HIVES/RASH Verified 04/18/23 15:08 mushroom Allergy Unknown throat Uncoded 04/18/23 15:08 closes up/difficult breathing mushrooms Allergy Unknown anaphylaxis Uncoded 04/18/23 15:08 Active Medications: Current Medications Acetaminophen (Acetaminophen 325 Mg Tablet) 650 mg PO Q6H PRN PRN Reason: Pain, Mild (Pain Scale 1-3) Al Hydroxide/Mg Hydroxide (Magnesium Hydrox/Alum Hydrox 30 Ml Oral.Susp) 30 ml PO Q4H PRN PRN Reason: Heartburn/Nausea Dextrose (Dextrose 50 % 25 Gm/50 Ml Syringe) 25 gm IVPUSH Q15M PRN; Protocol PRN Reason: per Hypoglycemia Standing Ord. Enoxaparin Sodium (Enoxaparin Sodium 40 Mg/0.4 Ml Syringe) 40 mg SUBCUT Q24H [facility] Last Admin: 06/21/23 08:28 Dose: 40 mg Glucose (Glucose Gel 15 Gm Gel..Gram.) 15 gm PO Q15M PRN; Protocol PRN Reason: per Hypoglycemia Standing Ord. Hydromorphone HCl (Hydromorphone Hcl 2 Mg Tablet) 2 mg PO Q4H PRN PRN Reason: Pain, Severe (Pain Scale 7-10) Last Admin: 06/21/23 03:38 Dose: 2 mg Hydromorphone HCl (Hydromorphone Hcl 0.5 Mg/0.5 Ml Syringe) 0.5 mg IVPUSH Q4H PRN; Protocol PRN Reason: Pain, Severe (Pain Scale 7-10) Last Admin: 06/21/23 12:36 Dose: 0.5 mg Dextrose/Sodium Chloride (D51/2ns) 1,000 mls @ 80 mls/hr IVCONT .[id number] [facility] Last Admin: 06/21/23 12:38 Dose: 80 mls/hr Ceftriaxone Sodium 1 gm/ (Sodium Chloride) 50 mls @ 100 mls/hr IV Q24H [facility] Last Infusion: 06/21/23 15:49 Dose: Infused Insulin Glargine (Insulin Glargine,Hum.Rec.Anlog 100 Unit/Ml 10 Ml Vial) 25 unit SUBCUT DAILY [facility] Last Admin: 06/21/23 15:06 Dose: 25 unit Insulin Human Lispro (Insulin Lispro 100 Unit/Ml 3 Ml Vial) 0 unit SUBCUT Q6H [facility]; Protocol Last Admin: 06/21/23 15:06 Dose: 8 unit Lamotrigine (Lamotrigine 100 Mg Tablet) 200 mg PO BID [facility] Last Admin: 06/21/23 08:29 Dose: 200 mg Lorazepam (Lorazepam 2 Mg/Ml Vial) 1 mg IVPUSH QID PRN PRN Reason: Anxiety Last Admin: 06/21/23 15:12 Dose: 1 mg Metoprolol Tartrate (Metoprolol Tartrate 25 Mg Tablet) 25 mg PO BID [facility]; Protocol Last Admin: 06/21/23 08:29 Dose: 25 mg Ondansetron HCl (Ondansetron Hcl 4 Mg/2 Ml Vial) 4 mg IVPUSH Q8H PRN PRN Reason: Nausea and Vomiting Last Admin: 06/21/23 12:31 Dose: 4 mg Pantoprazole Sodium (Pantoprazole Sodium 40 Mg/10 Ml Vial) 40 mg IVPUSH DAILY@0630 [facility] Risperidone (Risperidone 2 Mg Tablet) 2 mg PO BID [facility] Last Admin: 06/21/23 08:29 Dose: 2 mg Sodium Chloride (0.9 % Sodium Chloride Flush 3 Ml Syringe) 3 ml IVFLUSH QSHIFT [facility] Last Admin: 06/21/23 15:07 Dose: 3 ml Zolpidem Tartrate (Zolpidem Tartrate 5 Mg Tablet) 10 mg PO BEDTIME PRN PRN Reason: Insomnia Last Admin: 06/20/23 21:37 Dose: 10 mg Home Medications Medication Instructions Recorded Confirmed Last Taken Type lamotrigine 200 mg tablet 200 mg PO BID 05/11/20 06/18/23 06/17/23 08:00 History lorazepam 1 mg tablet 1 mg PO TID PRN Anxiety 05/11/20 06/18/23 06/17/23 08:00 History zolpidem 10 mg tablet 10 mg PO BEDTIME 05/11/20 06/18/23 06/16/23 22:00 History insulin aspart U-100 100 unit/mL 0 unit subcut DIRECTED 06/01/20 06/18/23 11/27/22 History (3 mL) subcutaneous pen (Novolog FlexPen U-100 Insulin aspart) risperidone 2 mg tablet 1 tab PO BID 09/13/21 06/18/23 06/17/23 08:00 History Physical Exam Vital Signs: Vital Signs: Last Vital Signs Temp 98.6 F 06/21/23 11:32 Pulse 89 06/21/23 11:32 Resp 20 06/21/23 11:32 BP 150/70 H 06/21/23 11:32 Pulse Ox 96 06/21/23 11:32 O2 Del Method Room Air 06/21/23 11:32 BMI result Body Mass Index 28.1 Const: General: cooperative HEENT: Head: Yes normal to inspection Face and sinus: Yes normal facial exam Mouth: Normal oral and palatal mucosa present Teeth and gingiva: dentition normal Eyes: General: appearance normal, both eyes and all related structures Pupils: Equal, round and reactive pupils present Resp: Effort & Inspection: normal respiratory effort Cardio: Rate: regular rate Rhythm: regular rhythm GI: Other: mild abdominal discomfort Palpation (GI): Soft to palpation and nontender : General: Yes no CVA tenderness Back/Spine/Pelvis: Back: no CVA tenderness Skin: General skin exam: no rashes or lesions noted Neuro: General: moves all extremities Cranial nerves: Yes Equal, round and reactive pupils present Extrem: General: Yes normal to inspection Psych: Appearance: grossly normal Results Labs 06/20/23 06:48 06/21/23 07:22 Labs: BMP 06/21/23 07:22 Sodium 139 Potassium 3.6 Chloride 105 Carbon Dioxide 28 BUN 4 L Creatinine 0.76 Calcium 8.4 Microbiology Microbiology Results: Microbiology 06/17/23 22:26 Blood - Venous Blood Culture - Preliminary Prelim: GPR Gram Stain only 06/17/23 22:26 Blood - Venous Blood Culture - Preliminary No growth after 48 hours. Assessment and Plan (1) Leucocytosis: Qualifiers: Leukocytosis type: leukemoid reaction Qualified Code(s): D72.823 - Leukemoid reaction Status: Acute (2) Diabetic gastroparesis: Status: Acute (3) Nausea & vomiting: Qualifiers: Vomiting type: unspecified Qualified Code(s): R11.2 - Nausea with vomiting, unspecified Status: Acute Plan Possible urinary source ?pancreatitis source Continue Ceftriaxone and possible switch to po if not contaminant. See GI
[2023-06-21 17:21] VITALS: BP 108/70; PULSE 92; RESP 16; TEMP 36.6; O2SAT 97
[2023-06-21 17:30] LABS: Glucose, Whole Blood 251 mg/dL (60-115)
[2023-06-21 20:00] VITALS: BP 120/75; PULSE 99; RESP 17; TEMP 36.3; O2SAT 100
[2023-06-21 22:41] LABS: Glucose, Whole Blood 218 mg/dL (60-115)
[2023-06-22] VITALS: BP 109/70; PULSE 88; RESP 20; TEMP 36.4; O2SAT 97
[2023-06-22] MEDS: ondansetron HCL 4 MG/2 ML VIAL IVPUSH ×2 (02:32→13:19)
[2023-06-22] MEDS: HYDROmorphone HCl 0.5 MG/0.5 ML SYRINGE IVPUSH (02:39)
[2023-06-22 04:00] VITALS: BP 129/61; PULSE 87; RESP 20; TEMP 36.6; O2SAT 96
[2023-06-22 04:55] LABS: Glucose, Whole Blood 102 mg/dL (60-115)
[2023-06-22] MEDS: Pantoprazole Sodium 40 MG/10 ML VIAL IVPUSH (05:48)
[2023-06-22 07:30] VITALS: BP 99/66; PULSE 87; RESP 18; TEMP 36.6; O2SAT 98
[2023-06-22 07:41] LABS: Anion Gap 13 (12-20); Blood Urea Nitrogen 5 mg/dL (9-16); Calcium 8.9 mg/dL (8.4-10.2); Carbon Dioxide 25 mmol/L (22-29); Chloride 106 mmol/L (96-108); Creatinine Clr Calc Pharmacy 107.3; Estimated Glomerular Filt Rate > 60; Glucose Random 85 mg/dL (60-115); Potassium 3.3 mmol/L (3.3-5.1); Sodium 141 mmol/L (135-145)
[2023-06-22 07:44] LABS: Glucose, Whole Blood 81 mg/dL (60-115)
[2023-06-22] MEDS: 0.9 % Sodium Chloride Flush 3 ML SYRINGE IVFLUSH ×2 (08:07)
[2023-06-22] MEDS: Enoxaparin Sodium 40 MG/0.4 ML SYRINGE SUBCUT (08:07)
[2023-06-22] MEDS: Insulin Glargine,Hum.rec.anlog 100 UNIT/ML 10 ML VIAL 25 UNIT SUBCUT (08:07)
[2023-06-22] MEDS: risperiDONE 2 MG TABLET PO (08:08)
[2023-06-22] MEDS: lamoTRIgine 100 MG TABLET 200 MG PO (08:08)
[2023-06-22] MEDS: Metoprolol Tartrate 25 MG TABLET PO (08:08)
[2023-06-22] MEDS: HYDROmorphone HCl 2 MG TABLET PO ×2 (08:12→13:19)
[2023-06-22] MEDS: Magnesium Hydrox/Alum Hydrox 30 ML ORAL.SUSP PO (08:12)
[2023-06-22] MEDS: LORazepam 2 MG/ML VIAL 1 MG IVPUSH ×2 (09:13→13:46)
[2023-06-22 11:33] VITALS: BP 100/68; PULSE 85; RESP 18; TEMP 36.7; O2SAT 98
[2023-06-22] MEDS: cefTRIAXone sodium 1 GM in 0.9 % Sodium Chloride 50 ML IV (13:18)
[2023-06-22 15:03] LABS: Glucose, Whole Blood 89 mg/dL (60-115)
[2023-06-22 15:45] VITALS: BP 106/65; PULSE 82; RESP 17; TEMP 36.1; O2SAT 97
[2023-06-22 15:51] VITALS: BP 143/73; PULSE 71; RESP 16; TEMP 37.2; O2SAT 98
[2023-06-22 16:27] LABS: Glucose, Whole Blood 196 mg/dL (60-115)
--- NOTE | 2023-06-22 16:42 | PM.DS ---
DS: Providers Provider Date of Service: 06/22/23 Date of admission: 06/18/23 05:07 Primary care physician: Yulisa Avila MD Consults: 06/20/23 13:55 Consult to Gastroenterology Routine Consulting Provider: James Valles Reason for consultation: Gastroparesis with persistent symptoms Has provider been notified: No 06/21/23 13:29 Consult to Infectious Diseases Routine Consulting Provider: [facility] [place] Infectious Disease Reason for consultation: Gram negative magy bacteremia Has provider been notified: No DS: Diagnosis Discharge Diagnosis (1) Leucocytosis: Status: Acute (2) Diabetic gastroparesis: Status: Acute (3) Nausea & vomiting: Status: Acute DS: Summary Hospital Course Hospital Course: Admission HPI Chief Complaint: Persistent abdominal pain with associated nausea and vomiting x 24 hours Patient is a 47 year old unfortunate white female with known history of Type 1 diabetes mellitus (on Insulin pump), diabetic gastroparesis, GERD, CAD, and bipolar disorder who presents to the emergency room from home complaining of persistent nausea and vomiting associated with severe (10/10 intensity) generalized abdominal pain. No associated diarrhea, fevers or chills. She has had multiple admission in the past for similar problems and requires a short hospital stay for symptomatic care. Initial evaluation on arrival to the ED was notable for persistent tachycardia with hear rate between 110 - 130's, elevated blood pressure and respiratory rate. Lab work done revealed presence of a leucocytosis of 15.5 k/mm3, elevated platelet count at 517, elevated blood sugar (297 mg/dl) and lactic acid (4.8 mmol/L). A CT scan of the abdomen and pelvis revealed mild urinary bladder distention with a small amount of air within the urinary bladder. She received an empiric dose of IV Zosyn and also IV Zofran & Droperidol for nausea/vomiting and 50 mcg of IV Fentanyl with really no improvement in her symptoms and so admission was requested for continued symptomatic care. Hoospital course: The patient with history of long-standing type 1 diabetes complicated by gastroparesis and presented with nausea, vomiting, and abdominal pain. She had tachycardia, acute lactic acidosis and leukocytosis, which peaked at 17 K. Urinalysis showed glucosuria and trace blood, but no UTI. A CT scan revealed mild urinary bladder distention with a small amount of air. She received empiric IV Zosyn x 1, and was admitted for further management. NPO was implemented due to persistent symptoms. She received fluids, antiemetics, and IV pain medication. Initially on her insulin pump, she later transitioned to long-acting and short-acting insulin, achieving good blood sugar control with no evidence of DKA. Gastroenterology recommended conservative management. Diet advancement was successful, and she now tolerates regular food. Nausea and vomiting have subsided. Routine blood cultures drawn on June 17 was reported on as 1/2 gram-positive cocci with no initial sensitivity. Despite this, she remained afebrile, and her WBC count decreased to 11 without antibiotics. Ceftriaxone was started on June 21, and ID recommends treating with Cefzil for 10 days of Abx pending final culture and sensitivity. Contamination is a possibility. The patient is feeling much better and wants to be discharged. She will resume her insulin pump at home as she has all supplies and believes it is functioning properly. Injectable insulin is available if the pump malfunctions. Long-acting insulin was recommended but declined. Time Attestation Discharge coordination time: Greater than 30 minutes Quality: Safe Use of Opioids Does Pt have an Active Cancer Diagnosis on the Problem List?: No Quality: Stroke Does the patient have a stroke diagnosis?: No Physical Exam Vital Signs: Vital Signs: Last Vital Signs Temp 99 F 06/22/23 15:51 Pulse 71 06/22/23 15:51 Resp 16 06/22/23 15:51 BP 143/73 H 06/22/23 15:51 Pulse Ox 98 06/22/23 15:51 O2 Del Method Room Air 06/22/23 15:51 BMI result Body Mass Index 28.1 Const: Other: General: AO X 3, no acute distress Resp: CTA bilateral CVS: S1,S2,RRR GI: +BS, NT, no distention Skin: No rash Neuro: motor grossly intact Psych: appropriate affect DS: Data Data Completed and Pending Labs on day of discharge: Laboratory Results - last 24 hr 06/21/23 06/21/23 06/22/23 17:20 22:37 04:51 Hold Purple Top Sodium Potassium Chloride Carbon Dioxide Anion Gap BUN Creatinine Estim Creat Clear Calc Estimated GFR POC Glucose 251 H 218 H 102 Random Glucose Calcium 06/22/23 06/22/23 06/22/23 06:34 07:38 14:59 Hold Purple Top SEE NOTE Sodium 141 Potassium 3.3 Chloride 106 Carbon Dioxide 25 Anion Gap 13 BUN 5 L Creatinine 0.68 Estim Creat Clear Calc 107.3 Estimated GFR > 60 POC Glucose 81 89 Random Glucose 85 Calcium 8.9 06/22/23 16:23 Hold Purple Top Sodium Potassium Chloride Carbon Dioxide Anion Gap BUN Creatinine Estim Creat Clear Calc Estimated GFR POC Glucose 196 H Random Glucose Calcium Preliminary micro results at discharge 06/17/23 22:26 Blood Culture - Preliminary Blood - Venous Gram positive magy 06/17/23 22:26 Blood Culture - Preliminary Blood - Venous No growth after 48 hours. Discharge Plan Discharge Anticipated Discharge Date/Time: 06/22/23 16:10 Patient Disposition: Home, Self-Care Discharge Diagnosis: diabetes gastroparesis nausea vomiting, hyperglycemia without DKA, Referrals: Yulisa Dyson MD [Primary Care Provider] - 1 Week Discharge Medications: New cefprozil 500 mg tablet 500 mg PO Q12H Qty: 16 0RF ondansetron 4 mg tablet,disintegrating 4 mg PO Q8H 5 Days Qty: 15 0RF hydromorphone 2 mg Tablet 2 mg PO Q6H PRN (Reason: Pain, Severe (Pain Scale 7-10)) Qty: 20 0RF Rx Instructions: Partial Fill upon patient request. Continued ondansetron 4 mg tablet,disintegrating 4 mg PO BID PRN (Reason: nausea and vomiting) Qty: 14 0RF midodrine 5 mg tablet 5 mg PO DAILY Qty: 90 2RF albuterol sulfate 90 mcg/actuation HFA aerosol inhaler 1 puff PO Q4H PRN (Reason: for wheezing) Qty: 8.5 2RF metoprolol tartrate 25 mg tablet 25 mg PO BID Qty: 180 1RF omeprazole 20 mg capsule,delayed release(DR/EC) 20 mg PO BID Qty: 180 3RF insulin aspart U-100 [Novolog FlexPen U-100 Insulin] 100 unit/mL (3 mL) insulin pen 0 unit subcut DIRECTED Rx Instructions: INSULIN PUMP lorazepam 1 mg Tablet 1 mg PO TID PRN (Reason: Anxiety) lamotrigine 200 mg Tablet 200 mg PO BID zolpidem 10 mg Tablet 10 mg PO BEDTIME risperidone 2 mg tablet 1 tab PO BID Discharge Orders: Discharge Order (Routine); Ordered 06/22/23 Ordered By: Haim Moss Diet: Diabetic diet Activity on Discharge: As tolerated Stand Alone Forms: Patient Portal Discharge page Care Plan Goals: full recovery from gastroparesis with nausea and vomiting and being able eat and resume a insulin therapy as previously, and avoid dehydration and potential DKA Health Concerns: Type 1 diabetes gastroparesis Nausea and vomitting Leukocytosis--resolved Hypokalemia--resolved Plan of Treatment: Resume insulin pump as before, please be mindful that you received long acting of Lantus 25 mg today, and with sliding scale humalog coverage and therefore if you resume your pump you will likely need less insulin. In the event that your pump is not functioning you will need to resort to subcutaneous injection of insulin until your machine is back working please call and arrange for followup visit with her primary care doctor within a week. Take Cefprozil 500 mg twice daily for infection in blood, next dose is tomorrow Assessment: See above
[2023-06-22 17:56] LABS: Glucose, Whole Blood 278 mg/dL (60-115)
[2023-06-22] MEDS: Heparin Sodium,Porcine Flush 50 UNITS/5 ML SYRINGE IVFLUSH (18:06)
[2023-06-22] MEDS: Insulin Lispro 100 UNIT/ML 3 ML VIAL SUBCUT (18:07)
--- NOTE | 2023-06-23 07:22 | MHC.CM.PN ---
Late entry for 06/22: Pt medically cleared for D/C home self-care, pts transported her home.
[2023-07-01 20:58] LABS: Pancreatic Elastase-1 292 mcg/g
== END 2023-06-22 18:25 | disposition home or self-care (01) | DRG 74 ==
LOC: HO.ED 06-18 03:48 → HO.EDOVER 06-18 05:24 → HO.IMC 06-18 17:25
PROVIDERS: Internal Medicine Gastroenterology; Physician Assistant Medical; Student in an Organized Health Care Education/Training Program; Admitting Provider Internal Medicine; Emergency Provider Emergency Medicine; PCP Internal Medicine; Visit Provider Internal Medicine
DX: E10.43 Type 1 diabetes mellitus with diabetic autonomic (poly)neuropathy (principal); E87.21 Acute metabolic acidosis; R78.81 Bacteremia; K31.84 Gastroparesis; E86.0 Dehydration; E10.65 Type 1 diabetes mellitus with hyperglycemia; Z96.41 Presence of insulin pump (external) (internal); I25.10 Atherosclerotic heart disease of native coronary artery without angina pectoris; I10 Essential (primary) hypertension; F31.9 Bipolar disorder, unspecified; Z20.822 Contact with and (suspected) exposure to COVID-19; Z87.891 Personal history of nicotine dependence; Z79.899 Other long term (current) drug therapy
CPT/HCPCS: 0241U; 36415; 74176; 80048; 80053; 81001; 82010; 82656; 82803; 82947; 83605; 83690; 83735; 84484; 85025; 85027; 87040; 87205; 93005; 99285; C9113; J0696; J1170; J1642; J1650; J1790; J2060; J2405; J2543; J3010; J7120

== ENCOUNTER → 2023-06-17 19:57 | Outpatient (BNV) | payer OTHER, SELFPAY | PROVIDERS: Admitting Provider Internal Medicine; Emergency Provider Emergency Medicine; PCP Internal Medicine; Visit Provider Internal Medicine | DX: R00.0 Tachycardia, unspecified (principal) | CPT/HCPCS: 93010 ==

== ENCOUNTER → 2023-06-18 05:07 | Outpatient (BNV) | payer OTHER, SELFPAY | PROVIDERS: Admitting Provider Internal Medicine; Emergency Provider Emergency Medicine; PCP Internal Medicine; Visit Provider Internal Medicine | DX: E10.43 Type 1 diabetes mellitus with diabetic autonomic (poly)neuropathy (principal); K31.84 Gastroparesis; E10.65 Type 1 diabetes mellitus with hyperglycemia; Z96.41 Presence of insulin pump (external) (internal); E87.20 Acidosis, unspecified; D72.823 Leukemoid reaction | CPT/HCPCS: 99223; 99232; 99233; 99239; 99499 ==

== ENCOUNTER → 2023-06-18 05:07 | Outpatient (BNV) | payer OTHER, SELFPAY | PROVIDERS: Admitting Provider Internal Medicine; Emergency Provider Emergency Medicine; PCP Internal Medicine; Visit Provider Internal Medicine Gastroenterology | DX: K21.9 Gastro-esophageal reflux disease without esophagitis (principal); E11.43 Type 2 diabetes mellitus with diabetic autonomic (poly)neuropathy; K31.84 Gastroparesis | CPT/HCPCS: 99222 ==

== ENCOUNTER → 2023-06-18 05:07 | Outpatient (BNV) | payer OTHER, SELFPAY | PROVIDERS: Admitting Provider Internal Medicine; Emergency Provider Emergency Medicine; PCP Internal Medicine; Visit Provider Internal Medicine | DX: D72.823 Leukemoid reaction (principal); E11.43 Type 2 diabetes mellitus with diabetic autonomic (poly)neuropathy; K31.84 Gastroparesis; R11.2 Nausea with vomiting, unspecified | CPT/HCPCS: 99222 ==

== ENCOUNTER 2023-10-18 13:28 | Inpatient (IN) | payer OTHER, SELFPAY ==
[2023-10-18] VITALS (10 sets, daily range): BP systolic 141–188; BP diastolic 72–101; PULSE 109–143; RESP 13–40; TEMP 36.2–36.4; O2SAT 95–99; BMI 26.6
--- NOTE | ~2023-10-18 | XR_ITS ---
EXAMINATION: XR CHEST CLINICAL INFORMATION: Aspiration COMPARISON: Chest x-ray June 01, 2020 TECHNIQUE: Frontal portable view of the chest was obtained. 5:03 PM FINDINGS: Central port catheter tip at caval atrial junction. Lungs are normally aerated. No pulmonary vascular congestion or pleural effusion. Heart size is normal. The cardiac and mediastinal contours are normal XR/XR chest 1V IMPRESSION: No acute abnormality of chest.
--- NOTE | 2023-10-18 13:36 | ECG_ITS ---
Test Reason : HI HEART RATE Blood Pressure : / mmHG Vent. Rate : 142 BPM Atrial Rate : 142 BPM P-R Int : 128 ms QRS Dur : 076 ms QT Int : 354 ms P-R-T Axes : 065 051 031 degrees QTc Int : 544 ms Sinus tachycardia Low voltage QRS Borderline ECG When compared with ECG of 17-JUN-2023 20:57, No significant change was found Referred By: Benton Roman Electronically Signed By:UZMA TURNER MD
--- NOTE | 2023-10-18 13:42 | ED_ITS ---
HPI - General Adult General Chief complaint: General Medical Stated complaint: EXCESSIVE VOMITING Time Seen by Provider: 10/18/23 13:34 History of Present Illness HPI narrative: The patient is a 48-year-old female with a complicated past medical history including multiple episodes of pancreatitis and type 1 diabetes. The patient's that she is currently on clindamycin for a dental infection. She has been on the clindamycin for a few days. The says that this morning she woke up sweaty and shaky with abdominal pain and vomiting. She vomited multiple times this morning. Ultimately the called an ambulance and she was brought to the hospital. There is no report of fever. There is no report of diarrhea. The patient is profoundly fatigued and was very tachypneic and was not really able to participate in the history. Related Data Home Medications ?Medication ?Instructions ?Recorded ?Confirmed lamotrigine 200 mg tablet 200 mg PO BID 05/11/20 06/18/23 lorazepam 1 mg tablet 1 mg PO TID PRN Anxiety 05/11/20 06/18/23 zolpidem 10 mg tablet 10 mg PO BEDTIME 05/11/20 06/18/23 insulin aspart U-100 100 unit/mL 0 unit subcut DIRECTED 06/01/20 06/18/23 (3 mL) subcutaneous pen (Novolog FlexPen U-100 Insulin aspart) risperidone 2 mg tablet 1 tab PO BID 09/13/21 06/18/23 Previous Rx's ?Medication ?Instructions ?Recorded ondansetron 4 mg disintegrating 4 mg PO BID PRN nausea and 11/12/22 tablet vomiting #14 tabs albuterol sulfate 90 mcg/actuation 1 puff PO Q4H PRN for wheezing 12/10/22 aerosol inhaler #8.5 grams cefprozil 500 mg tablet 500 mg PO Q12H #16 tabs 06/22/23 hydromorphone 2 mg tablet 2 mg PO Q6H PRN Pain, Severe (Pain 06/22/23 Scale 7-10) #20 tabs ondansetron 4 mg disintegrating 4 mg PO Q8H 5 days #15 tabs 06/22/23 tablet midodrine 5 mg tablet 5 mg PO DAILY #90 tabs 06/30/23 nirmatrelvir 300 mg (150 mg 3 ea PO PER PKG DIR 5 days #30 ea 07/03/23 x2)-ritonavir 100 mg tablet,dose pack (Paxlovid) omeprazole 20 mg capsule,delayed 20 mg PO BID #180 caps 08/02/23 release metoprolol tartrate 25 mg tablet 25 mg PO BID #180 tabs 10/14/23 Allergies Allergy/AdvReac Type Severity Reaction Status Date / Time morphine [MORPHINE] Allergy Intermediate RASH, Verified 10/18/23 13:43 hives, hives mushroom Allergy Intermediate HIVES/RASH Verified 10/18/23 13:43 mushroom Allergy Unknown throat Uncoded 10/18/23 13:43 closes up/difficult breathing mushrooms Allergy Unknown anaphylaxis Uncoded 10/18/23 13:43 Review of Systems 2 Review of Systems: Yes all other systems are reviewed and are negative [facility] Past Medical History Medical History Diabetic gastroparesis Herpes zoster Status post fall Recurrent UTI NSTEMI (non-ST elevated myocardial infarction) Diabetic gastroparesis Anxiety Bipolar 1 disorder Pancreatitis Gastroparesis Diabetes Surgical History History of cholecystectomy History of tonsillectomy History of ERCP H/O pyloroplasty History of appendectomy H/O: hysterectomy Social History Social History Household Members: Family Housing: Other Do you presently have visiting nurse or other home services: No Unable to assess alcohol history related to: Unknown Alcohol intake: never Comment: sleeping Patient Tobacco Use Status: Former Tobacco user Tobacco use type: Cigarette Smoked in Last 30 Days: No e-Cigarette/Vaping Use: Never Used Second Hand Smoke Exposure: No Use of substances other than those prescribed or required for medical reasons: Yes Substance Use Type: Marijuana Advance Directives: Yes Advance Directives on File: Yes Advance Directives Date on File: 12/03/22 Patient : No service: No Current occupational status: disabled Cognitive needs: No Hearing needs: No Vision needs: No Physical Exam ED Vital Signs: Vital Signs - 24 hr 10/18/23 13:40 10/18/23 14:17 10/18/23 14:31 Temperature 97.6 F Pulse Rate 143 H Pulse Rate [Monitor] 140 H Respiratory Rate 40 H 26 H Blood Pressure 188/101 H Pulse Oximetry 99 Oxygen Delivery Method Room Air 10/18/23 15:56 Temperature Pulse Rate Pulse Rate [Monitor] Respiratory Rate 20 Blood Pressure Pulse Oximetry Oxygen Delivery Method BMI result Body Mass Index 26.6 Const Other: Patient is a chronically ill-appearing 48-year-old who was awake and very tachypneic. She looked very fatigued and said very little. HENMT Other: Face was symmetrical. Mucous membranes dry. Eyes Other: Pupils are round equal, conjunctivae are clear, no scleral icterus. Neck Other: No neck swelling. No JVD. No adenopathy. Resp Other: The patient was very tachypneic but lungs were clear. Cardio Rate: tachycardic Rhythm: regular rhythm Heart sounds: S1 normal heart sound present and S2 normal heart sound present GI Other: The patient was very tender to gentle palpation of the albumin. She seems most tender in the central abdomen. Skin Other: Skin is pale and dry Neuro Other: The patient was awake but seemed profoundly fatigued. She seemed diffusely weak but had no focal findings. Extrem Other: No peripheral edema. No calf swelling or tenderness. Course Course Course Narrative: elevated wbc count is chronic and not due to infection or severe sepsis lactic acidosis is due to dehydration and hypoperfusion in setting of intractable vomiting and not infection or severe sepsis thrombocytosis is chronic and not due to infection or severe sepsis tachycardia is due to dehydration, pain and lack of her taking BP medications today and not infection or severe sepsis Medications Administered Discontinued Medications Generic Name Dose Route Start Last Admin Trade Name Freq PRN Reason Stop Dose Admin Droperidol 0.625 mg 10/18/23 14:11 10/18/23 14:17 Droperidol 5 Mg/2 Ml Vial IVPUSH 10/18/23 14:12 0.625 mg ONCE ONE Administration Hydromorphone HCl 1 mg 10/18/23 14:11 10/18/23 14:17 Hydromorphone Hcl 1 Mg/Ml Syringe IVPUSH 10/18/23 14:12 1 mg ONCE ONE Administration Protocol Hydromorphone HCl 0.5 mg 10/18/23 15:46 10/18/23 15:56 Hydromorphone Hcl 0.5 Mg/0.5 Ml Syringe IVPUSH 10/18/23 15:47 0.5 mg ONCE ONE Administration Protocol Sodium Chloride 1,000 mls @ 999 mls/hr 10/18/23 13:45 10/18/23 15:56 Ns IV 10/18/23 14:45 Infused .Q1H1M RAISA Infusion Sodium Chloride 1,000 mls @ 999 mls/hr 10/18/23 15:00 10/18/23 15:56 Ns IV 10/18/23 16:00 999 mls/hr .Q1H1M RAISA Administration Lorazepam 1 mg 10/18/23 17:07 10/18/23 17:13 Lorazepam 2 Mg/Ml Vial IVPUSH 10/18/23 17:08 1 mg STAT STA Administration Medical Decision Making Medical Decision Making [facility] Narrative: The patient is a 48 year old female with a history of gastroparesis, pancreatitis and type 1 diabetes who presents with a 1 day illness of nausea and vomiting. She has had previous presentations in the past. She has apparently been on clindamycin recently because of a dental infection. The patient arrived very tachypneic and looked unwell and my initial assumption was that she was in diabetic ketoacidosis. However her blood gas argued against diabetic ketoacidosis. Her venous blood gas showed a pH of 7.65 with a pCO2 of 12. This suggests a respiratory alkalosis. The patient was given IV fluids. She was given hydromorphone for pain and droperidol. Her tachypnea resolved almost as soon as she receives hydromorphone and droperidol. I think this would argue against DKA as I would have expected tachypnea and hyperpnea to persist despite pain relief. Obtaining labs from the patient was difficult. She has a Port-A-Cath but many labs could not be drawn off the Port-A-Cath and peripheral phlebotomy was extremely difficult. After multiple attempts we finally obtained what seemed to be a fairly complete set of labs. She has a high white count but this seems to be chronic. Her CRP is completely normal. Her blood sugar was initially 414. This came down to 354 and then 339 with hydration. Beta hydroxybutyrate was mildly elevated at 0.8. She had urine ketones equal to 80. No sign of infection in her urine. Chest x-ray was clear. Abdomen was diffusely tender but this is apparently fairly chronic with the patient. Overall the patient remains tachycardic despite looking much more comfortable with pain medications and antiemetics. I will be signing the patient out to my colleague at change of shift. Lab Data 10/18/23 17:30 10/18/23 14:12 Labs: Lab Results 10/18/23 10/18/23 10/18/23 Range/Units 13:35 14:12 14:13 WBC (4.8-10.8) X10*3/uL RBC (4.20-5.50) X10*6/uL Hgb (12.0-16.0) g/dl Hct (37.0-47.0) % MCV (80.0-98.0) fL MCH (27.0-33.0) pg MCHC (31.0-35.0) g/dl RDW (11.0-16.0) % Plt Count (160-400) X10*3/uL MPV (9.4-12.3) fL Immature Gran % (Auto) (0.0-0.4) % Neut % (Auto) (45-73) % Lymph % (Auto) (20-40) % Archer % (Auto) (2-11) % Eos % (Auto) (0-4) % Baso % (Auto) (0-2) % Lymph # (Auto) (1.2-4.9) X10*3/uL Archer # (Auto) (0.1-1.2) X10*3/uL Eos # (Auto) (0.0-0.4) X10*3/uL Baso # (Auto) (0.0-0.2) X10*3/uL Abs Immat Gran (auto) (0.00-0.03) X10*3/uL Absolute Neuts (auto) (2.0-8.3) x10*3/uL Absolute Nucleated RBC (0.0-0.012) X10*3/uL Nucleated RBC % (auto) (0.0-0.2) /100WBC Smear Tech's Comments Hold Purple Top PT 10.3 L (11.1-13.3) SEC INR 0.8 L (0.9-1.1) O2 Saturation % ABG pH at Pt Temp (7.35-7.45) ABG pCO2 at Pt Temp (32-45) mmHg ABG pO2 at Pt Temp (83-108) mmHg ABG HCO3 (22-26) mmol/L ABG Base Excess (Actual) mmol/L VBG pH 7.65 H* (7.32-7.43) VBG pCO2 12 mmHg VBG pO2 132 mmHg VBG HCO3 13 L (22-26) mmol/L VBG O2 Saturation 98.0 % VBG Base Excess -3.5 mmol/L Sodium 136 (135-145) mmol/L Potassium 3.9 (3.3-5.1) mmol/L Chloride 103 (96-108) mmol/L Carbon Dioxide 17 L (22-29) mmol/L Anion Gap 20 (12-20) BUN 16 (9-16) mg/dL Creatinine 0.92 (0.5-1.4) mg/dL Estim Creat Clear Calc 84.5 Estimated GFR > 60 POC Glucose 370 H* (60-115) mg/dL Random Glucose 414 H* (60-115) mg/dL Lactic Acid (0.5-2.0) mmol/L Calcium 9.9 D (8.4-10.2) mg/dL Magnesium 1.9 (1.6-2.6) mg/dL Total Bilirubin 0.4 (0.0-1.0) mg/dL Direct Bilirubin 0.2 (0.0-0.5) mg/dL AST 16 (5-31) U/L ALT 20 (0-31) U/L Alkaline Phosphatase 164 H (39-117) U/L Total Creatine Kinase 48 (26-140) U/L Troponin I High Sens < 2.7 (<3.5-17.0) ng/L C-Reactive Protein 0.40 (< or = 0.50) mg/dL Total Protein 8.4 H (6.5-8.0) g/dL Albumin 4.4 (3.5-5.0) g/dL Lipase 8 (8-78) U/L Beta-Hydroxybutyrate 2.81 H (0.02-0.27) mmol/L Beta HCG, Quant < 2 mIU/mL Urine Color Urine Appearance Urine pH (5.0-9.0) Ur Specific [place] (1.005-1.025) Urine Protein (Neg-Trace) mg/dL Urine Glucose (UA) (Negative) mg/dL Urine Ketones (Negative) mg/dL Urine Blood (Negative) Urine Nitrite (Negative) Ur Leukocyte Esterase (Negative) Urine RBC (0-2) /HPF Urine WBC (0-5) /HPF Ur Squamous Epith Cells (0-2) /HPF Urine Bacteria (None Seen) Hyaline Casts (0-2) /LPF Ethyl Alcohol < 10 mg/dL Influenza Type A (PCR) (Negative) Influenza Type B (PCR) (Negative) RSV RNA Qual (PCR) (Negative) SARS-CoV-2 RNA (RT-PCR) (Negative) 10/18/23 10/18/23 10/18/23 Range/Units 14:46 15:05 15:41 WBC (4.8-10.8) X10*3/uL RBC (4.20-5.50) X10*6/uL Hgb (12.0-16.0) g/dl Hct (37.0-47.0) % MCV (80.0-98.0) fL MCH (27.0-33.0) pg MCHC (31.0-35.0) g/dl RDW (11.0-16.0) % Plt Count (160-400) X10*3/uL MPV (9.4-12.3) fL Immature Gran % (Auto) (0.0-0.4) % Neut % (Auto) (45-73) % Lymph % (Auto) (20-40) % Archer % (Auto) (2-11) % Eos % (Auto) (0-4) % Baso % (Auto) (0-2) % Lymph # (Auto) (1.2-4.9) X10*3/uL Archer # (Auto) (0.1-1.2) X10*3/uL Eos # (Auto) (0.0-0.4) X10*3/uL Baso # (Auto) (0.0-0.2) X10*3/uL Abs Immat Gran (auto) (0.00-0.03) X10*3/uL Absolute Neuts (auto) (2.0-8.3) x10*3/uL Absolute Nucleated RBC (0.0-0.012) X10*3/uL Nucleated RBC % (auto) (0.0-0.2) /100WBC Smear Tech's Comments Hold Purple Top PT (11.1-13.3) SEC INR (0.9-1.1) O2 Saturation 94.0 % ABG pH at Pt Temp 7.43 (7.35-7.45) ABG pCO2 at Pt Temp 26 L (32-45) mmHg ABG pO2 at Pt Temp 91 (83-108) mmHg ABG HCO3 17 L (22-26) mmol/L ABG Base Excess (Actual) -4.9 mmol/L VBG pH (7.32-7.43) VBG pCO2 mmHg VBG pO2 mmHg VBG HCO3 (22-26) mmol/L VBG O2 Saturation % VBG Base Excess mmol/L Sodium (135-145) mmol/L Potassium (3.3-5.1) mmol/L Chloride (96-108) mmol/L Carbon Dioxide (22-29) mmol/L Anion Gap (12-20) BUN (9-16) mg/dL Creatinine (0.5-1.4) mg/dL Estim Creat Clear Calc Estimated GFR POC Glucose 354 H* (60-115) mg/dL Random Glucose (60-115) mg/dL Lactic Acid (0.5-2.0) mmol/L Calcium (8.4-10.2) mg/dL Magnesium (1.6-2.6) mg/dL Total Bilirubin (0.0-1.0) mg/dL Direct Bilirubin (0.0-0.5) mg/dL AST (5-31) U/L ALT (0-31) U/L Alkaline Phosphatase (39-117) U/L Total Creatine Kinase (26-140) U/L Troponin I High Sens (<3.5-17.0) ng/L C-Reactive Protein (< or = 0.50) mg/dL Total Protein (6.5-8.0) g/dL Albumin (3.5-5.0) g/dL Lipase (8-78) U/L Beta-Hydroxybutyrate (0.02-0.27) mmol/L Beta HCG, Quant mIU/mL Urine Color Urine Appearance Urine pH (5.0-9.0) Ur Specific [place] (1.005-1.025) Urine Protein (Neg-Trace) mg/dL Urine Glucose (UA) (Negative) mg/dL Urine Ketones (Negative) mg/dL Urine Blood (Negative) Urine Nitrite (Negative) Ur Leukocyte Esterase (Negative) Urine RBC (0-2) /HPF Urine WBC (0-5) /HPF Ur Squamous Epith Cells (0-2) /HPF Urine Bacteria (None Seen) Hyaline Casts (0-2) /LPF Ethyl Alcohol mg/dL Influenza Type A (PCR) NEGATIVE (Negative) Influenza Type B (PCR) NEGATIVE (Negative) RSV RNA Qual (PCR) NEGATIVE (Negative) SARS-CoV-2 RNA (RT-PCR) NEGATIVE (Negative) 10/18/23 10/18/23 10/18/23 Range/Units 15:43 16:26 16:29 WBC (4.8-10.8) X10*3/uL RBC (4.20-5.50) X10*6/uL Hgb (12.0-16.0) g/dl Hct (37.0-47.0) % MCV (80.0-98.0) fL MCH (27.0-33.0) pg MCHC (31.0-35.0) g/dl RDW (11.0-16.0) % Plt Count (160-400) X10*3/uL MPV (9.4-12.3) fL Immature Gran % (Auto) (0.0-0.4) % Neut % (Auto) (45-73) % Lymph % (Auto) (20-40) % Archer % (Auto) (2-11) % Eos % (Auto) (0-4) % Baso % (Auto) (0-2) % Lymph # (Auto) (1.2-4.9) X10*3/uL Archer # (Auto) (0.1-1.2) X10*3/uL Eos # (Auto) (0.0-0.4) X10*3/uL Baso # (Auto) (0.0-0.2) X10*3/uL Abs Immat Gran (auto) (0.00-0.03) X10*3/uL Absolute Neuts (auto) (2.0-8.3) x10*3/uL Absolute Nucleated RBC (0.0-0.012) X10*3/uL Nucleated RBC % (auto) (0.0-0.2) /100WBC Smear Tech's Comments Hold Purple Top PT (11.1-13.3) SEC INR (0.9-1.1) O2 Saturation % ABG pH at Pt Temp (7.35-7.45) ABG pCO2 at Pt Temp (32-45) mmHg ABG pO2 at Pt Temp (83-108) mmHg ABG HCO3 (22-26) mmol/L ABG Base Excess (Actual) mmol/L VBG pH (7.32-7.43) VBG pCO2 mmHg VBG pO2 mmHg VBG HCO3 (22-26) mmol/L VBG O2 Saturation % VBG Base Excess mmol/L Sodium (135-145) mmol/L Potassium (3.3-5.1) mmol/L Chloride (96-108) mmol/L Carbon Dioxide (22-29) mmol/L Anion Gap (12-20) BUN (9-16) mg/dL Creatinine (0.5-1.4) mg/dL Estim Creat Clear Calc Estimated GFR POC Glucose 339 H (60-115) mg/dL Random Glucose (60-115) mg/dL Lactic Acid 2.9 H* (0.5-2.0) mmol/L Calcium (8.4-10.2) mg/dL Magnesium (1.6-2.6) mg/dL Total Bilirubin (0.0-1.0) mg/dL Direct Bilirubin (0.0-0.5) mg/dL AST (5-31) U/L ALT (0-31) U/L Alkaline Phosphatase (39-117) U/L Total Creatine Kinase (26-140) U/L Troponin I High Sens (<3.5-17.0) ng/L C-Reactive Protein (< or = 0.50) mg/dL Total Protein (6.5-8.0) g/dL Albumin (3.5-5.0) g/dL Lipase (8-78) U/L Beta-Hydroxybutyrate 3.13 H (0.02-0.27) mmol/L Beta HCG, Quant mIU/mL Urine Color Yellow Urine Appearance Clear Urine pH 5.5 (5.0-9.0) Ur Specific [place] 1.025 (1.005-1.025) Urine Protein 30 (1+) H (Neg-Trace) mg/dL Urine Glucose (UA) >=1000 H (Negative) mg/dL Urine Ketones 80 (Negative) mg/dL Urine Blood Small (1+) H (Negative) Urine Nitrite Negative (Negative) Ur Leukocyte Esterase Negative (Negative) Urine RBC 0-2 (0-2) /HPF Urine WBC 0-5 (0-5) /HPF Ur Squamous Epith Cells 0-2 (0-2) /HPF Urine Bacteria None Seen (None Seen) Hyaline Casts 0-2 (0-2) /LPF Ethyl Alcohol mg/dL Influenza Type A (PCR) (Negative) Influenza Type B (PCR) (Negative) RSV RNA Qual (PCR) (Negative) SARS-CoV-2 RNA (RT-PCR) (Negative) 10/18/23 Range/Units 17:30 WBC 19.3 H (4.8-10.8) X10*3/uL RBC 4.10 L (4.20-5.50) X10*6/uL Hgb 11.6 L (12.0-16.0) g/dl Hct 35.0 L (37.0-47.0) % MCV 85.4 (80.0-98.0) fL MCH 28.3 (27.0-33.0) pg MCHC 33.1 (31.0-35.0) g/dl RDW 14.0 (11.0-16.0) % Plt Count 487 H (160-400) X10*3/uL MPV 8.8 L (9.4-12.3) fL Immature Gran % (Auto) 0.6 H (0.0-0.4) % Neut % (Auto) 92.2 H (45-73) % Lymph % (Auto) 5.0 L (20-40) % Archer % (Auto) 1.9 L (2-11) % Eos % (Auto) 0.0 (0-4) % Baso % (Auto) 0.3 (0-2) % Lymph # (Auto) 1.0 L (1.2-4.9) X10*3/uL Archer # (Auto) 0.4 (0.1-1.2) X10*3/uL Eos # (Auto) 0.0 (0.0-0.4) X10*3/uL Baso # (Auto) 0.1 (0.0-0.2) X10*3/uL Abs Immat Gran (auto) 0.11 H (0.00-0.03) X10*3/uL Absolute Neuts (auto) 17.8 H (2.0-8.3) x10*3/uL Absolute Nucleated RBC 0.000 (0.0-0.012) X10*3/uL Nucleated RBC % (auto) 0.0 (0.0-0.2) /100WBC Smear Tech's Comments VERIFIED Hold Purple Top SEE NOTE PT (11.1-13.3) SEC INR (0.9-1.1) O2 Saturation % ABG pH at Pt Temp (7.35-7.45) ABG pCO2 at Pt Temp (32-45) mmHg ABG pO2 at Pt Temp (83-108) mmHg ABG HCO3 (22-26) mmol/L ABG Base Excess (Actual) mmol/L VBG pH (7.32-7.43) VBG pCO2 mmHg VBG pO2 mmHg VBG HCO3 (22-26) mmol/L VBG O2 Saturation % VBG Base Excess mmol/L Sodium (135-145) mmol/L Potassium (3.3-5.1) mmol/L Chloride (96-108) mmol/L Carbon Dioxide (22-29) mmol/L Anion Gap (12-20) BUN (9-16) mg/dL Creatinine (0.5-1.4) mg/dL Estim Creat Clear Calc Estimated GFR POC Glucose (60-115) mg/dL Random Glucose (60-115) mg/dL Lactic Acid (0.5-2.0) mmol/L Calcium (8.4-10.2) mg/dL Magnesium (1.6-2.6) mg/dL Total Bilirubin (0.0-1.0) mg/dL Direct Bilirubin (0.0-0.5) mg/dL AST (5-31) U/L ALT (0-31) U/L Alkaline Phosphatase (39-117) U/L Total Creatine Kinase (26-140) U/L Troponin I High Sens (<3.5-17.0) ng/L C-Reactive Protein (< or = 0.50) mg/dL Total Protein (6.5-8.0) g/dL Albumin (3.5-5.0) g/dL Lipase (8-78) U/L Beta-Hydroxybutyrate (0.02-0.27) mmol/L Beta HCG, Quant mIU/mL Urine Color Urine Appearance Urine pH (5.0-9.0) Ur Specific [place] (1.005-1.025) Urine Protein (Neg-Trace) mg/dL Urine Glucose (UA) (Negative) mg/dL Urine Ketones (Negative) mg/dL Urine Blood (Negative) Urine Nitrite (Negative) Ur Leukocyte Esterase (Negative) Urine RBC (0-2) /HPF Urine WBC (0-5) /HPF Ur Squamous Epith Cells (0-2) /HPF Urine Bacteria (None Seen) Hyaline Casts (0-2) /LPF Ethyl Alcohol mg/dL Influenza Type A (PCR) (Negative) Influenza Type B (PCR) (Negative) RSV RNA Qual (PCR) (Negative) SARS-CoV-2 RNA (RT-PCR) (Negative) Independent Interpretation I performed an independent interpretation of an: EKG Interpretation: EKG at 1336 shows sinus tachycardia at 142 beats per minute. No definite acute ischemic changes. Critical Care Time Critical Care Time Critical Care Time: Yes Total Critical Care Time: 90 Attestation: review of records, IV lopressor, multiple IV pain medications, IV insulin, IV resuscitation with 3L of IVF, admit, discussion with spouse I attest to the critical care time spent taking care of this patient. Discharge Plan Discharge Clinical Impression: Tachycardia, Diabetes mellitus with gastroparesis, Intractable cyclical vomiting with nausea, Elevated WBC count, Chronic hypertension, Acidosis, lactic Patient Disposition: Admitted As Inpatient Prescriptions: No Action ondansetron 4 mg tablet,disintegrating 4 mg PO BID PRN (Reason: nausea and vomiting) Qty: 14 0RF albuterol sulfate 90 mcg/actuation HFA aerosol inhaler 1 puff PO Q4H PRN (Reason: for wheezing) Qty: 8.5 2RF midodrine 5 mg tablet 5 mg PO DAILY Qty: 90 2RF Paxlovid 300 mg (150 mg x 2)-100 mg tablets,dose pack 3 ea PO PER PKG DIR 5 Days Qty: 30 0RF omeprazole 20 mg capsule,delayed release(DR/EC) 20 mg PO BID Qty: 180 3RF metoprolol tartrate 25 mg tablet 25 mg PO BID Qty: 180 1RF insulin aspart U-100 [Novolog FlexPen U-100 Insulin] 100 unit/mL (3 mL) insulin pen 0 unit subcut DIRECTED Rx Instructions: INSULIN PUMP lorazepam 1 mg Tablet 1 mg PO TID PRN (Reason: Anxiety) lamotrigine 200 mg Tablet 200 mg PO BID zolpidem 10 mg Tablet 10 mg PO BEDTIME risperidone 2 mg tablet 1 tab PO BID cefprozil 500 mg tablet 500 mg PO Q12H Qty: 16 0RF ondansetron 4 mg tablet,disintegrating 4 mg PO Q8H 5 Days Qty: 15 0RF hydromorphone 2 mg Tablet 2 mg PO Q6H PRN (Reason: Pain, Severe (Pain Scale 7-10)) Qty: 20 0RF Rx Instructions: Partial Fill upon patient request. Print Language: [place]
[2023-10-18 13:44] LABS: Glucose, Whole Blood 370 mg/dL (60-115)
[2023-10-18] MEDS: droPERidol 5 MG/2 ML VIAL 0.625 MG IVPUSH (14:17)
[2023-10-18] MEDS: HYDROmorphone HCl 1 MG/ML SYRINGE IVPUSH (14:17)
[2023-10-18] MEDS: 0.9 % Sodium Chloride 1,000 ML 999 ML IV ×3 (14:17→18:18)
[2023-10-18 14:25] LABS: Venous Blood Gas Refer to POC result
[2023-10-18 14:25] LABS: VBG Base Excess -3.5 mmol/L; VBG HCO3 13 mmol/L (22-26); VBG pCO2 12 mmHg; VBG pH 7.65 (7.32-7.43); VBG pO2 132 mmHg
[2023-10-18 14:31] LABS: INTERNATIONAL NORM RATIO 0.8 (0.9-1.1); Prothrombin Time 10.3 SEC (11.1-13.3)
[2023-10-18 14:37] LABS: Beta-Hydroxybutyrate 2.81 mmol/L (0.02-0.27)
[2023-10-18 14:50] LABS: Alanine Aminotransferase 20 U/L (0-31); Albumin Level 4.4 g/dL (3.5-5.0); Alkaline Phosphatase 164 U/L (39-117); Anion Gap 20 (12-20); Aspartate Amino Transferase 16 U/L (5-31); Bilirubin Direct 0.2 mg/dL (0.0-0.5); Bilirubin Total 0.4 mg/dL (0.0-1.0); Blood Urea Nitrogen 16 mg/dL (9-16); Calcium 9.9 mg/dL (8.4-10.2); Carbon Dioxide 17 mmol/L (22-29); Chloride 103 mmol/L (96-108); Creatinine Clr Calc Pharmacy 84.5; Estimated Glomerular Filt Rate > 60; Glucose Random 414 mg/dL (60-115); Lipase 8 U/L (8-78); Magnesium 1.9 mg/dL (1.6-2.6); Potassium 3.9 mmol/L (3.3-5.1); Sodium 136 mmol/L (135-145); Total Protein 8.4 g/dL (6.5-8.0)
[2023-10-18 14:54] LABS: ABG Base Excess -4.9 mmol/L; ABG HCO3 17 mmol/L (22-26); ABG pCO2 26 mmHg (32-45); ABG pH 7.43 (7.35-7.45); ABG pO2 91 mmHg (83-108)
[2023-10-18 15:04] LABS: Ethanol < 10 mg/dL; Troponin-I High Sensitivity < 2.7 ng/L (<3.5-17.0)
[2023-10-18 15:10] LABS: HCG Quantitative < 2 mIU/mL
[2023-10-18 15:47] LABS: Influenza A PCR NEGATIVE (Negative); Influenza B PCR NEGATIVE (Negative); Resp Syncy Virus RNA Qual PCR NEGATIVE (Negative); SARS COV2 PCR INHOUSE NEGATIVE (Negative)
[2023-10-18 15:50] LABS: Glucose, Whole Blood 354 mg/dL (60-115)
[2023-10-18 15:56] LABS: Appearance Urine Clear; Color Urine Yellow; Glucose Urine UA >=1000 mg/dL (Negative); Leukocyte Esterase Urine Negative (Negative); Nitrite Urine Negative (Negative); PH 5.5 (5.0-9.0); Specific Gravity - Urine 1.025 (1.005-1.025); UMIC TRIGGER UACC YES; Urine Blood Small (1+) (Negative); Urine Ketones 80 mg/dL (Negative); Urine Protein 30 (1+) mg/dL (Neg-Trace)
[2023-10-18] MEDS: HYDROmorphone HCl 0.5 MG/0.5 ML SYRINGE IVPUSH (15:56)
[2023-10-18 16:04] LABS: Bacteria Urine None Seen (None Seen); Hyaline Casts Urine 0-2 /LPF (0-2); RBC Urine 0-2 /HPF (0-2); Squamous Epithelial Cell Urine 0-2 /HPF (0-2); WBC Urine 0-5 /HPF (0-5)
[2023-10-18 16:18] LABS: ABG Refer to POC result
[2023-10-18 16:33] LABS: Glucose, Whole Blood 339 mg/dL (60-115)
[2023-10-18 16:47] LABS: Beta-Hydroxybutyrate 3.13 mmol/L (0.02-0.27); Lactic Acid 2.9 mmol/L (0.5-2.0)
[2023-10-18] MEDS: LORazepam 2 MG/ML VIAL 1 MG IVPUSH (17:13)
[2023-10-18 17:37] LABS: Basophils Absolute Auto 0.1 X10*3/uL (0.0-0.2); Basophils Percent Auto 0.3 % (0-2); Hemoglobin 11.6 g/dl (12.0-16.0); Imm Gran Abs Auto 0.11 X10*3/uL (0.00-0.03); Imm Gran Pct Auto 0.6 % (0.0-0.4); MANUAL DIFF FLAG SCAN; Mean Corpuscular HGB Conc 33.1 g/dl (31.0-35.0); Mean Corpuscular Hemoglobin 28.3 pg (27.0-33.0); Mean Corpuscular Volume 85.4 fL (80.0-98.0); Mean Platelet Volume 8.8 fL (9.4-12.3); Monocytes Absolute Auto 0.4 X10*3/uL (0.1-1.2); Monocytes Percent Auto 1.9 % (2-11); Neutrophils Absolute Auto 17.8 x10*3/uL (2.0-8.3); Neutrophils Percent Auto 92.2 % (45-73); Platelet Count 487 X10*3/uL (160-400); SCAN SMEAR FLAG 1; White Blood Count 19.3 X10*3/uL (4.8-10.8)
[2023-10-18 18:04] LABS: SLIDE REVIEW VERIFIED
[2023-10-18 18:05] LABS: Lactic Acid 2.1 mmol/L (0.5-2.0)
[2023-10-18 18:18] LABS: Glucose, Whole Blood 312 mg/dL (60-115)
[2023-10-18] MEDS: Insulin Regular, Human 100 UNIT/ML 3 ML VIAL IVPUSH (18:18)
[2023-10-18] MEDS: Metoprolol Tartrate 5 MG/5 ML VIAL 2.5 MG IVPUSH (18:19)
[2023-10-18 18:35] LABS: Reflex Lactate? Lactic Acid Added
--- NOTE | 2023-10-18 19:03 | PHA.MEDREC ---
Pharmacy Consult ? Medication Reconciliation Pharmacy has completed the medication reconciliation.
[2023-10-18 19:05] LABS: Glucose, Whole Blood 295 mg/dL (60-115)
[2023-10-18 19:45] LABS: Reflex Lactate? Lactic Acid Added
--- NOTE | 2023-10-18 19:57 | P.HPHOSP_ITS ---
History of Present Illness Date of Service: 10/18/23 Attending physician on admission: Irwin Bishop Chief Complaint: Abdominal pain Yumiko Sena is a 48 years old woman with past medical history significant for type 1 diabetes mellitus on insulin pump, gastroparesis, GERD and hyperlipidemia presents to the emergency department complaining of abdominal pain and multiple episodes of vomiting. She denied diarrhea, fevers and chills. Denied any acute cardiopulmonary or genitourinary symptoms. HPI was limited as the patient was in distress due to pain. Patient has been taking clindamycin for dental infection. She mentioned that her insulin pump ran out of insulin. She has a Port-A-Cath in place. She has history of multiple abdominal surgeries/procedures including appendectomy, hysterectomy, ERCP and cholecystectomy. . In the ED, she has been found with marked tachycardia and hypertension. There is no fever. Blood workup is remarkable for leukocytosis and lactic acidosis. Hemoglobin is 11.6 which is at baseline. Bicarb is 17. Renal function is adequate. There is hyperglycemia (last blood glucose is 295. Lytes bicarb 17. Anion gap is normal. Beta-hydroxybutyrate is elevated, 3.13. Electrolytes are unremarkable as well as LFTs. Troponin is negative. test is negative. Urinalysis remarkable for proteinuria, elevated glucose and small blood. There is no evidence of UTI. CXR is negative. Patient has had multiple CT scans in the past that showed no acute intra-abdominal abnormalities. ECG shows sinus tachycardia without acute ischemic changes ED tx: NS 3 L bolus, Dilaudid 1 mg IV, droperidol 0.625 mg IV, hydromorphone 0.5 mg IV, insulin R 4 mg IV, Ativan 1 mg IV, metoprolol 5 mg IV (total), Reglan 10 mg IV, Benadryl 25 mg IV and guardian 20 mg units subQ. Review of Systems 2 Review of Systems: Yes Unobtainable due to mental condition [facility] Medical History Diabetic gastroparesis Herpes zoster Status post fall Recurrent UTI NSTEMI (non-ST elevated myocardial infarction) Diabetic gastroparesis Anxiety Bipolar 1 disorder Pancreatitis Gastroparesis Diabetes Surgical History History of cholecystectomy History of tonsillectomy History of ERCP H/O pyloroplasty History of appendectomy H/O: hysterectomy Social History Household Members: Family Housing: Other Do you presently have visiting nurse or other home services: No Unable to assess alcohol history related to: Unknown Alcohol intake: never Comment: sleeping Patient Tobacco Use Status: Former Tobacco user Tobacco use type: Cigarette Smoked in Last 30 Days: No e-Cigarette/Vaping Use: Never Used Second Hand Smoke Exposure: No Use of substances other than those prescribed or required for medical reasons: Yes Substance Use Type: Marijuana Advance Directives: Yes Advance Directives on File: Yes Advance Directives Date on File: 12/03/22 Patient : No service: No Current occupational status: disabled Cognitive needs: No Hearing needs: No Vision needs: No Meds Allergies Allergy/AdvReac Type Severity Reaction Status Date / Time morphine [MORPHINE] Allergy Intermediate RASH, Verified 10/18/23 13:43 hives, hives mushroom Allergy Intermediate HIVES/RASH Verified 10/18/23 13:43 mushroom Allergy Unknown throat Uncoded 10/18/23 13:43 closes up/difficult breathing mushrooms Allergy Unknown anaphylaxis Uncoded 10/18/23 13:43 Active Medications: Current Medications Glucose (Glucose Gel 15 Gm Gel..Gram.) 15 gm PO Q15M PRN; Protocol PRN Reason: per Hypoglycemia Standing Ord. Hydromorphone HCl (Hydromorphone Hcl 1 Mg/Ml Syringe) 1 mg IVPUSH Q4H PRN; Protocol PRN Reason: Pain, Severe (Pain Scale 7-10) Dextrose (D10) 250 mls @ 750 mls/hr IV Q30M PRN PRN Reason: BG <70 Lactated Ringer's (Lr) 1,000 mls @ 100 mls/hr IVCONT .Q10H RAISA Dextrose (D10) 250 mls @ 750 mls/hr IV Q15M PRN; Protocol PRN Reason: per Hypoglycemia Standing Ord. Insulin Human Lispro (Insulin Lispro 100 Unit/Ml 3 Ml Vial) 0 unit SUBCUT Q3H RAISA; Protocol Metoclopramide HCl (Metoclopramide Hcl 10 Mg/2 Ml Vial) 10 mg IVPUSH Q8H RAISA Metoprolol Tartrate (Metoprolol Tartrate 5 Mg/5 Ml Vial) 5 mg IVPUSH Q6H RAISA Pantoprazole Sodium (Pantoprazole Sodium 40 Mg/10 Ml Vial) 40 mg IVPUSH Q12H RAISA Sodium Chloride (0.9 % Sodium Chloride Flush 3 Ml Syringe) 3 ml IVFLUSH QSHIFT RAISA Home Medications ?Medication ?Instructions ?Recorded ?Confirmed ?Last Taken ?Type lamotrigine 200 mg tablet 200 mg PO BID 05/11/20 10/18/23 10/17/23 History lorazepam 1 mg tablet 1 mg PO TID PRN Anxiety 05/11/20 10/18/23 06/17/23 08:00 History zolpidem 10 mg tablet 10 mg PO BEDTIME 05/11/20 10/18/23 10/17/23 History insulin aspart U-100 100 unit/mL 0 unit subcut DIRECTED 06/01/20 10/18/23 10/18/23 History (3 mL) subcutaneous pen (Novolog FlexPen U-100 Insulin aspart) risperidone 2 mg tablet 2 mg PO BID 09/13/21 10/18/23 10/17/23 History clindamycin HCl 300 mg capsule 300 mg PO TID 10/18/23 10/18/23 10/17/23 History Physical Exam 2 Vital Signs and Narrative: Vital Signs: Last Vital Signs Temp 97.3 F 10/18/23 19:00 Pulse 122 H 10/18/23 19:00 Resp 20 10/18/23 19:00 BP 174/99 H 10/18/23 19:00 Pulse Ox 96 10/18/23 19:00 O2 Del Method Room Air 10/18/23 19:00 BMI result Body Mass Index 26.6 Constitutional - Awake and Alert, in distress secondary to abdominal pain. Afebrile. HEENT - Pupils equally round, normal sclerae. Dry oral mucosa Heart -tachycardia. Normal rhythm. No murmurs. Lung - Normal lung expansion, Normal respiratory effort, No respiratory distress, CTA bilaterally Abdomen - patient did not allow me to exam her abdomen due to pain. Extremities - no calf tenderness bilaterally, no swelling Musculoskeletal - Normal inspection, normal ROM Skin - Warm/Dry Neurological - Alert. No facial droop. Psychological - Depressed affect Results Labs 10/18/23 20:19 10/18/23 14:12 Labs: Laboratory Results - last 24 hr 10/18/23 10/18/23 10/18/23 13:35 14:12 14:13 MCV MCH MCHC RDW Plt Count MPV Immature Gran % (Auto) Neut % (Auto) Lymph % (Auto) [place] % (Auto) Eos % (Auto) Baso % (Auto) Lymph # (Auto) [place] # (Auto) Eos # (Auto) Baso # (Auto) Abs Immat Gran (auto) Absolute Neuts (auto) Absolute Nucleated RBC Nucleated RBC % (auto) Smear Tech's Comments Hold Purple Top PT 10.3 L INR 0.8 L O2 Saturation ABG pH at Pt Temp ABG pCO2 at Pt Temp ABG pO2 at Pt Temp ABG HCO3 ABG Base Excess (Actual) VBG pH 7.65 H* VBG pCO2 12 VBG pO2 132 VBG HCO3 13 L VBG O2 Saturation 98.0 VBG Base Excess -3.5 Anion Gap 20 Estim Creat Clear Calc 84.5 Estimated GFR > 60 POC Glucose 370 H* Random Glucose 414 H* Lactic Acid Calcium 9.9 D Magnesium 1.9 Total Bilirubin 0.4 Direct Bilirubin 0.2 AST 16 ALT 20 Alkaline Phosphatase 164 H Total Creatine Kinase 48 Troponin I High Sens < 2.7 C-Reactive Protein 0.40 Total Protein 8.4 H Albumin 4.4 Lipase 8 Beta-Hydroxybutyrate 2.81 H Beta HCG, Quant < 2 Urine Color Urine Appearance Urine pH Ur Specific [place] Urine Protein Urine Glucose (UA) Urine Ketones Urine Blood Urine Nitrite Ur Leukocyte Esterase Urine RBC Urine WBC Ur Squamous Epith Cells Urine Bacteria Hyaline Casts Ethyl Alcohol < 10 Influenza Type A (PCR) Influenza Type B (PCR) RSV RNA Qual (PCR) SARS-CoV-2 RNA (RT-PCR) 10/18/23 10/18/23 10/18/23 14:46 15:05 15:41 MCV MCH MCHC RDW Plt Count MPV Immature Gran % (Auto) Neut % (Auto) Lymph % (Auto) [place] % (Auto) Eos % (Auto) Baso % (Auto) Lymph # (Auto) [place] # (Auto) Eos # (Auto) Baso # (Auto) Abs Immat Gran (auto) Absolute Neuts (auto) Absolute Nucleated RBC Nucleated RBC % (auto) Smear Tech's Comments Hold Purple Top PT INR O2 Saturation 94.0 ABG pH at Pt Temp 7.43 ABG pCO2 at Pt Temp 26 L ABG pO2 at Pt Temp 91 ABG HCO3 17 L ABG Base Excess (Actual) -4.9 VBG pH VBG pCO2 VBG pO2 VBG HCO3 VBG O2 Saturation VBG Base Excess Anion Gap Estim Creat Clear Calc Estimated GFR POC Glucose 354 H* Random Glucose Lactic Acid Calcium Magnesium Total Bilirubin Direct Bilirubin AST ALT Alkaline Phosphatase Total Creatine Kinase Troponin I High Sens C-Reactive Protein Total Protein Albumin Lipase Beta-Hydroxybutyrate Beta HCG, Quant Urine Color Urine Appearance Urine pH Ur Specific [place] Urine Protein Urine Glucose (UA) Urine Ketones Urine Blood Urine Nitrite Ur Leukocyte Esterase Urine RBC Urine WBC Ur Squamous Epith Cells Urine Bacteria Hyaline Casts Ethyl Alcohol Influenza Type A (PCR) NEGATIVE Influenza Type B (PCR) NEGATIVE RSV RNA Qual (PCR) NEGATIVE SARS-CoV-2 RNA (RT-PCR) NEGATIVE 10/18/23 10/18/23 10/18/23 15:43 16:26 16:29 MCV MCH MCHC RDW Plt Count MPV Immature Gran % (Auto) Neut % (Auto) Lymph % (Auto) [place] % (Auto) Eos % (Auto) Baso % (Auto) Lymph # (Auto) [place] # (Auto) Eos # (Auto) Baso # (Auto) Abs Immat Gran (auto) Absolute Neuts (auto) Absolute Nucleated RBC Nucleated RBC % (auto) Smear Tech's Comments Hold Purple Top PT INR O2 Saturation ABG pH at Pt Temp ABG pCO2 at Pt Temp ABG pO2 at Pt Temp ABG HCO3 ABG Base Excess (Actual) VBG pH VBG pCO2 VBG pO2 VBG HCO3 VBG O2 Saturation VBG Base Excess Anion Gap Estim Creat Clear Calc Estimated GFR POC Glucose 339 H Random Glucose Lactic Acid 2.9 H* Calcium Magnesium Total Bilirubin Direct Bilirubin AST ALT Alkaline Phosphatase Total Creatine Kinase Troponin I High Sens C-Reactive Protein Total Protein Albumin Lipase Beta-Hydroxybutyrate 3.13 H Beta HCG, Quant Urine Color Yellow Urine Appearance Clear Urine pH 5.5 Ur Specific [place] 1.025 Urine Protein 30 (1+) H Urine Glucose (UA) >=1000 H Urine Ketones 80 Urine Blood Small (1+) H Urine Nitrite Negative Ur Leukocyte Esterase Negative Urine RBC 0-2 Urine WBC 0-5 Ur Squamous Epith Cells 0-2 Urine Bacteria None Seen Hyaline Casts 0-2 Ethyl Alcohol Influenza Type A (PCR) Influenza Type B (PCR) RSV RNA Qual (PCR) SARS-CoV-2 RNA (RT-PCR) 10/18/23 10/18/23 10/18/23 17:30 18:10 18:58 MCV 85.4 MCH 28.3 MCHC 33.1 RDW 14.0 Plt Count 487 H MPV 8.8 L Immature Gran % (Auto) 0.6 H Neut % (Auto) 92.2 H Lymph % (Auto) 5.[address] % (Auto) 1.9 L Eos % (Auto) 0.0 Baso % (Auto) 0.3 Lymph # (Auto) 1.[address] [place] # (Auto) 0.4 Eos # (Auto) 0.0 Baso # (Auto) 0.1 Abs Immat Gran (auto) 0.11 H Absolute Neuts (auto) 17.8 H Absolute Nucleated RBC 0.000 Nucleated RBC % (auto) 0.0 Smear Tech's Comments VERIFIED Hold Purple Top SEE NOTE PT INR O2 Saturation ABG pH at Pt Temp ABG pCO2 at Pt Temp ABG pO2 at Pt Temp ABG HCO3 ABG Base Excess (Actual) VBG pH VBG pCO2 VBG pO2 VBG HCO3 VBG O2 Saturation VBG Base Excess Anion Gap Estim Creat Clear Calc Estimated GFR POC Glucose 312 H 295 H Random Glucose Lactic Acid 2.1 H* Calcium Magnesium Total Bilirubin Direct Bilirubin AST ALT Alkaline Phosphatase Total Creatine Kinase Troponin I High Sens C-Reactive Protein Total Protein Albumin Lipase Beta-Hydroxybutyrate Beta HCG, Quant Urine Color Urine Appearance Urine pH Ur Specific [place] Urine Protein Urine Glucose (UA) Urine Ketones Urine Blood Urine Nitrite Ur Leukocyte Esterase Urine RBC Urine WBC Ur Squamous Epith Cells Urine Bacteria Hyaline Casts Ethyl Alcohol Influenza Type A (PCR) Influenza Type B (PCR) RSV RNA Qual (PCR) SARS-CoV-2 RNA (RT-PCR) Imaging Radiologist's Impressions: Impressions Chest X-Ray 10/18/23 17:08 IMPRESSION: No acute abnormality of chest. Assessment and Plan (1) Acidosis, lactic: Status: Acute (2) Chronic hypertension: Status: Acute (3) Elevated WBC count: Qualifiers: Leukocytosis type: unspecified Qualified Code(s): D72.829 - Elevated white blood cell count, unspecified Status: Acute (4) Diabetes mellitus with gastroparesis: Status: Acute (5) Tachycardia: Status: Acute Plan Yumiko Sena is a 48 years old woman admitted with: * Abdominal pain likely multifactorial: Acute gastritis secondary to recent use of clindamycin and gastroparesis. Admit to hospitalist service. Keep NPO. Continue IV fluids. Reglan 10 mg IV every 8 hours. Protonix 40 mg IV twice daily. Pain control with Dilaudid IV as needed. * Tachycardia likely secondary to metabolic acidosis/lactic acidosis due to see hydration/vomiting + SIRS criteria. Telemetry. Continue IV fluids. Metoprolol IV Doubt sepsis. Blood culture obtained -will follow results. * Leukocytosis likely secondary vomiting and dehydration. Continue IV fluids. Continue to monitor. * Thrombocytosis. Likely reactive. Continue to monitor. * Recent diagnosis of dental infection. Start treatment with Unasyn. * Non-anion gap metabolic acidosis. Likely secondary to lactic acidosis. Doubt DKA as anion gap is normal. * Type 1 diabetes mellitus on home insulin pump (insulin pump just ran out of insulin). Start treatment with Lantus and insulin sliding scale. Continue IV fluids. Blood glucose monitoring every 3 hours. * Essential hypertension. Metoprolol 5 mg IV every 6 hours. Patient will need hospitalization for at least 2 midnight for are dehydration secondary to vomiting due to gastroparesis treatment with IV fluids, antiemetic and IV pain control. She will also will need close monitoring of vital signs. Quality Stroke Does the patient have a stroke diagnosis?: No VTE Prior VTE?: No VTE Risk Level:: Medical - moderate - high VTE Device Contraindication: Treatment Not Indicated VTE Drug Contraindication: N/A - Med Ordered
[2023-10-18] MEDS: Lactated Ringers 1,000 ML 100 ML IVCONT (20:02)
[2023-10-18] MEDS: Metoclopramide HCl 10 MG/2 ML VIAL IVPUSH ×2 (20:03→22:45)
[2023-10-18] MEDS: diphenhydrAMINE HCL 50 MG/ML VIAL 25 MG IVPUSH (20:04)
[2023-10-18] MEDS: Insulin Glargine,Hum.rec.anlog 100 UNIT/ML 10 ML VIAL 20 UNIT SUBCUT (20:05)
--- NOTE | 2023-10-18 20:08 | PC.NURSE ---
md aware of bp and metoprolol held.
[2023-10-18 20:29] LABS: Basophils Absolute Auto 0.1 X10*3/uL (0.0-0.2); Basophils Percent Auto 0.4 % (0-2); Hematocrit 35.7 % (37.0-47.0); Hemoglobin 11.8 g/dl (12.0-16.0); Imm Gran Abs Auto 0.14 X10*3/uL (0.00-0.03); Imm Gran Pct Auto 0.7 % (0.0-0.4); Lymphocytes Absolute Auto 1.3 X10*3/uL (1.2-4.9); Lymphocytes Percent Auto 6.7 % (20-40); MANUAL DIFF FLAG SCAN; Mean Corpuscular HGB Conc 33.1 g/dl (31.0-35.0); Mean Corpuscular Hemoglobin 28.1 pg (27.0-33.0); Mean Platelet Volume 8.8 fL (9.4-12.3); Monocytes Absolute Auto 0.3 X10*3/uL (0.1-1.2); Monocytes Percent Auto 1.6 % (2-11); Neutrophils Absolute Auto 17.8 x10*3/uL (2.0-8.3); Neutrophils Percent Auto 90.6 % (45-73); Platelet Count 509 X10*3/uL (160-400); Red Cell Distribution Width 14.2 % (11.0-16.0); SCAN SMEAR FLAG 1; White Blood Count 19.6 X10*3/uL (4.8-10.8)
[2023-10-18 20:51] LABS: Alanine Aminotransferase 22 U/L (0-31); Albumin Level 4.2 g/dL (3.5-5.0); Alkaline Phosphatase 159 U/L (39-117); Anion Gap 19 (12-20); Aspartate Amino Transferase 21 U/L (5-31); Bilirubin Total 0.3 mg/dL (0.0-1.0); Blood Urea Nitrogen 12 mg/dL (9-16); Calcium 8.7 mg/dL (8.4-10.2); Carbon Dioxide 16 mmol/L (22-29); Chloride 106 mmol/L (96-108); Creatinine Clr Calc Pharmacy 86.4; Estimated Glomerular Filt Rate > 60; Glucose Random 344 mg/dL (60-115); Magnesium 1.6 mg/dL (1.6-2.6); Potassium 4.4 mmol/L (3.3-5.1); Sodium 137 mmol/L (135-145)
[2023-10-18 21:43] LABS: Glucose, Whole Blood 338 mg/dL (60-115)
[2023-10-18] MEDS: Insulin Lispro 100 UNIT/ML 3 ML VIAL SUBCUT (21:53)
[2023-10-18] MEDS: Pantoprazole Sodium 40 MG/10 ML VIAL IVPUSH (21:55)
--- NOTE | 2023-10-18 22:07 | PC.NURSE ---
BP 141/88, P [address] Davis, per MD administer scheduled Metoprolol 5 mg IV push.
[2023-10-18] MEDS: Metoprolol Tartrate 5 MG/5 ML VIAL IVPUSH (22:10)
[2023-10-18] MEDS: Ampicillin Sodium/Sulbactam Na 1.5 GM in 0.9 % Sodium Chloride 100 ML IV (23:11)
[2023-10-19] VITALS (7 sets, daily range): BP systolic 110–160; BP diastolic 71–90; PULSE 103–131; RESP 14–23; TEMP 36–36.7; O2SAT 96–98
[2023-10-19] MEDS: HYDROmorphone HCl 1 MG/ML SYRINGE IVPUSH ×5 (00:22→19:45)
[2023-10-19] MEDS: Insulin Lispro 100 UNIT/ML 3 ML VIAL SUBCUT ×7 (00:36→22:48)
[2023-10-19 00:41] LABS: Glucose, Whole Blood 268 mg/dL (60-115)
[2023-10-19 01:14] LABS: VBG Base Excess -7.8 mmol/L; VBG HCO3 15 mmol/L (22-26); VBG pCO2 25 mmHg; VBG pH 7.38 (7.32-7.43); VBG pO2 82 mmHg
[2023-10-19 01:19] LABS: Venous Blood Gas Refer to POC result
[2023-10-19 02:46] LABS: Glucose, Whole Blood 200 mg/dL (60-115)
[2023-10-19] MEDS: Ampicillin Sodium/Sulbactam Na 1.5 GM in 0.9 % Sodium Chloride 100 ML IV ×4 (05:16→19:49)
[2023-10-19 05:42] LABS: Glucose, Whole Blood 152 mg/dL (60-115)
[2023-10-19 05:44] LABS: Hematocrit 34.7 % (37.0-47.0); Hemoglobin 11.3 g/dl (12.0-16.0); Mean Corpuscular HGB Conc 32.6 g/dl (31.0-35.0); Mean Corpuscular Hemoglobin 27.6 pg (27.0-33.0); Mean Corpuscular Volume 84.8 fL (80.0-98.0); Mean Platelet Volume 8.6 fL (9.4-12.3); Platelet Count 491 X10*3/uL (160-400); Red Blood Count 4.09 X10*6/uL (4.20-5.50); Red Cell Distribution Width 14.3 % (11.0-16.0); White Blood Count 17.1 X10*3/uL (4.8-10.8)
[2023-10-19 06:05] LABS: Anion Gap 14 (12-20); Blood Urea Nitrogen 15 mg/dL (9-16); Carbon Dioxide 21 mmol/L (22-29); Chloride 109 mmol/L (96-108); Creatinine Clr Calc Pharmacy 80.9; Estimated Glomerular Filt Rate > 60; Glucose Random 156 mg/dL (60-115); Magnesium 1.7 mg/dL (1.6-2.6); Sodium 140 mmol/L (135-145)
[2023-10-19 06:36] LABS: Glucose, Whole Blood 152 mg/dL (60-115)
[2023-10-19] MEDS: Metoclopramide HCl 10 MG/2 ML VIAL IVPUSH ×3 (07:08→22:40)
[2023-10-19] MEDS: 0.9 % Sodium Chloride Flush 3 ML SYRINGE IVFLUSH ×3 (07:55→22:49)
[2023-10-19] MEDS: ondansetron HCL 4 MG/2 ML VIAL IVPUSH (08:22)
[2023-10-19] MEDS: Pantoprazole Sodium 40 MG/10 ML VIAL IVPUSH ×2 (08:22→19:49)
[2023-10-19] MEDS: Metoprolol Tartrate 5 MG/5 ML VIAL IVPUSH ×3 (08:30→22:40)
[2023-10-19] MEDS: diphenhydrAMINE HCL 50 MG/ML VIAL 25 MG IVPUSH (10:39)
[2023-10-19 10:44] LABS: Glucose, Whole Blood 177 mg/dL (60-115)
--- NOTE | 2023-10-19 11:09 | P.PNIM_ITS ---
Subjective Subjective Date of Service: 10/19/23 Interval History: Seen and evaluated this morning reporting abd discomfort with nausea nad vomiting unable to tolerate PO Review of Systems Review of Systems: Yes all other systems are reviewed and are negative Physical Exam 2 Vital Signs: Vital Signs: Last Vital Signs Temp 96.8 F 10/19/23 08:00 Pulse 110 H 10/19/23 08:00 Resp 18 10/19/23 08:00 BP 160/90 H 10/19/23 08:00 Pulse Ox 98 10/19/23 08:00 O2 Del Method Room Air 10/19/23 08:00 BMI result Body Mass Index 26.6 Const: Other: Constitutional : Awake, interactive, not in distress Neck : Normal inspection, Supple Cardiovascular : RRR, no JVP, no lower extremity edema Respiratory : good bilateral air entry, no crackles, wheezes or rhonchi Gastrointestinal: soft, lax, Normal bowel sounds, generalized tenderness with palpation, no surgical signs Skin : Warm, Dry Neurological : Alert & oriented x3, No focal deficit Objective Data Active Medications Glucose (Glucose Gel 15 Gm Gel..Gram.) 15 gm PO Q15M PRN; Protocol PRN Reason: per Hypoglycemia Standing Ord. Hydromorphone HCl (Hydromorphone Hcl 1 Mg/Ml Syringe) 1 mg IVPUSH Q4H PRN; Protocol PRN Reason: Pain, Severe (Pain Scale 7-10) Last Admin: 10/19/23 08:22 Dose: 1 mg Documented By: TAINA Dextrose (D10) 250 mls @ 750 mls/hr IV Q30M PRN PRN Reason: BG <70 Lactated Ringer's (Lr) 1,000 mls @ 100 mls/hr IVCONT .Q10H [facility] Last Infusion: 10/19/23 08:17 Dose: Infused Documented By: TAINA Ampicillin Sodium/Sulbactam (Sodium 1.5 gm/ Sodium Chloride) 100 mls @ 200 mls/hr IV Q6H [facility] Last Infusion: 10/19/23 09:48 Dose: Infused Documented By: TAINA Dextrose (D10) 250 mls @ 750 mls/hr IV Q15M PRN; Protocol PRN Reason: per Hypoglycemia Standing Ord. Insulin Glargine (Insulin Glargine,Hum.Rec.Anlog 100 Unit/Ml 10 Ml Vial) 20 unit SUBCUT BEDTIME [facility] Insulin Human Lispro (Insulin Lispro 100 Unit/Ml 3 Ml Vial) 0 unit SUBCUT Q4H [facility]; Protocol Last Admin: 10/19/23 07:08 Dose: 4 unit Documented By: GUCCI Metoclopramide HCl (Metoclopramide Hcl 10 Mg/2 Ml Vial) 10 mg IVPUSH Q8H [facility] Last Admin: 10/19/23 07:08 Dose: 10 mg Documented By: GUCCI Metoprolol Tartrate (Metoprolol Tartrate 5 Mg/5 Ml Vial) 5 mg IVPUSH Q6H [facility] Last Admin: 10/19/23 08:30 Dose: 5 mg Documented By: TAINA Ondansetron HCl (Ondansetron Hcl 4 Mg/2 Ml Vial) 4 mg IVPUSH Q8H PRN PRN Reason: Nausea and Vomiting Last Admin: 10/19/23 08:22 Dose: 4 mg Documented By: TAINA Pantoprazole Sodium (Pantoprazole Sodium 40 Mg/10 Ml Vial) 40 mg IVPUSH Q12H [facility] Last Admin: 10/19/23 08:22 Dose: 40 mg Documented By: TAINA Sodium Chloride (0.9 % Sodium Chloride Flush 3 Ml Syringe) 3 ml IVFLUSH QSHIFT [facility] Last Admin: 10/19/23 07:55 Dose: 3 ml Documented By: TAINA Labs 10/19/23 05:32 10/19/23 05:32 Labs: Laboratory Results - last 24 hr 10/18/23 10/18/23 10/18/23 13:35 14:12 14:13 MCV MCH MCHC RDW Plt Count MPV Immature Gran % (Auto) Neut % (Auto) Lymph % (Auto) [place] % (Auto) Eos % (Auto) Baso % (Auto) Lymph # (Auto) [place] # (Auto) Eos # (Auto) Baso # (Auto) Abs Immat Gran (auto) Absolute Neuts (auto) Absolute Nucleated RBC Nucleated RBC % (auto) Smear Tech's Comments Hold Purple Top PT 10.3 L INR 0.8 L O2 Saturation ABG pH at Pt Temp ABG pCO2 at Pt Temp ABG pO2 at Pt Temp ABG HCO3 ABG Base Excess (Actual) VBG pH 7.65 H* VBG pCO2 12 VBG pO2 132 VBG HCO3 13 L VBG O2 Saturation 98.0 VBG Base Excess -3.5 Anion Gap 20 Estim Creat Clear Calc 84.5 Estimated GFR > 60 POC Glucose 370 H* Random Glucose 414 H* Lactic Acid Lactic Acid F/U @ 2Hr Calcium 9.9 D Magnesium 1.9 Total Bilirubin 0.4 Direct Bilirubin 0.2 AST 16 ALT 20 Alkaline Phosphatase 164 H Total Creatine Kinase 48 Troponin I High Sens < 2.7 C-Reactive Protein 0.40 Total Protein 8.4 H Albumin 4.4 Lipase 8 Beta-Hydroxybutyrate 2.81 H Beta HCG, Quant < 2 Urine Color Urine Appearance Urine pH Ur Specific [place] Urine Protein Urine Glucose (UA) Urine Ketones Urine Blood Urine Nitrite Ur Leukocyte Esterase Urine RBC Urine WBC Ur Squamous Epith Cells Urine Bacteria Hyaline Casts Ethyl Alcohol < 10 Influenza Type A (PCR) Influenza Type B (PCR) RSV RNA Qual (PCR) SARS-CoV-2 RNA (RT-PCR) 10/18/23 10/18/23 10/18/23 14:46 15:05 15:41 MCV MCH MCHC RDW Plt Count MPV Immature Gran % (Auto) Neut % (Auto) Lymph % (Auto) [place] % (Auto) Eos % (Auto) Baso % (Auto) Lymph # (Auto) [place] # (Auto) Eos # (Auto) Baso # (Auto) Abs Immat Gran (auto) Absolute Neuts (auto) Absolute Nucleated RBC Nucleated RBC % (auto) Smear Tech's Comments Hold Purple Top PT INR O2 Saturation 94.0 ABG pH at Pt Temp 7.43 ABG pCO2 at Pt Temp 26 L ABG pO2 at Pt Temp 91 ABG HCO3 17 L ABG Base Excess (Actual) -4.9 VBG pH VBG pCO2 VBG pO2 VBG HCO3 VBG O2 Saturation VBG Base Excess Anion Gap Estim Creat Clear Calc Estimated GFR POC Glucose 354 H* Random Glucose Lactic Acid Lactic Acid F/U @ 2Hr Calcium Magnesium Total Bilirubin Direct Bilirubin AST ALT Alkaline Phosphatase Total Creatine Kinase Troponin I High Sens C-Reactive Protein Total Protein Albumin Lipase Beta-Hydroxybutyrate Beta HCG, Quant Urine Color Urine Appearance Urine pH Ur Specific [place] Urine Protein Urine Glucose (UA) Urine Ketones Urine Blood Urine Nitrite Ur Leukocyte Esterase Urine RBC Urine WBC Ur Squamous Epith Cells Urine Bacteria Hyaline Casts Ethyl Alcohol Influenza Type A (PCR) NEGATIVE Influenza Type B (PCR) NEGATIVE RSV RNA Qual (PCR) NEGATIVE SARS-CoV-2 RNA (RT-PCR) NEGATIVE 10/18/23 10/18/23 10/18/23 15:43 16:26 16:29 MCV MCH MCHC RDW Plt Count MPV Immature Gran % (Auto) Neut % (Auto) Lymph % (Auto) [place] % (Auto) Eos % (Auto) Baso % (Auto) Lymph # (Auto) [place] # (Auto) Eos # (Auto) Baso # (Auto) Abs Immat Gran (auto) Absolute Neuts (auto) Absolute Nucleated RBC Nucleated RBC % (auto) Smear Tech's Comments Hold Purple Top PT INR O2 Saturation ABG pH at Pt Temp ABG pCO2 at Pt Temp ABG pO2 at Pt Temp ABG HCO3 ABG Base Excess (Actual) VBG pH VBG pCO2 VBG pO2 VBG HCO3 VBG O2 Saturation VBG Base Excess Anion Gap Estim Creat Clear Calc Estimated GFR POC Glucose 339 H Random Glucose Lactic Acid 2.9 H* Lactic Acid F/U @ 2Hr Calcium Magnesium Total Bilirubin Direct Bilirubin AST ALT Alkaline Phosphatase Total Creatine Kinase Troponin I High Sens C-Reactive Protein Total Protein Albumin Lipase Beta-Hydroxybutyrate 3.13 H Beta HCG, Quant Urine Color Yellow Urine Appearance Clear Urine pH 5.5 Ur Specific [place] 1.025 Urine Protein 30 (1+) H Urine Glucose (UA) >=1000 H Urine Ketones 80 Urine Blood Small (1+) H Urine Nitrite Negative Ur Leukocyte Esterase Negative Urine RBC 0-2 Urine WBC 0-5 Ur Squamous Epith Cells 0-2 Urine Bacteria None Seen Hyaline Casts 0-2 Ethyl Alcohol Influenza Type A (PCR) Influenza Type B (PCR) RSV RNA Qual (PCR) SARS-CoV-2 RNA (RT-PCR) 10/18/23 10/18/23 10/18/23 17:30 18:10 18:58 MCV 85.4 MCH 28.3 MCHC 33.1 RDW 14.0 Plt Count 487 H MPV 8.8 L Immature Gran % (Auto) 0.6 H Neut % (Auto) 92.2 H Lymph % (Auto) 5.0 L [place] % (Auto) 1.9 L Eos % (Auto) 0.0 Baso % (Auto) 0.3 Lymph # (Auto) 1.0 L [place] # (Auto) 0.4 Eos # (Auto) 0.0 Baso # (Auto) 0.1 Abs Immat Gran (auto) 0.11 H Absolute Neuts (auto) 17.8 H Absolute Nucleated RBC 0.000 Nucleated RBC % (auto) 0.0 Smear Tech's Comments VERIFIED Hold Purple Top SEE NOTE PT INR O2 Saturation ABG pH at Pt Temp ABG pCO2 at Pt Temp ABG pO2 at Pt Temp ABG HCO3 ABG Base Excess (Actual) VBG pH VBG pCO2 VBG pO2 VBG HCO3 VBG O2 Saturation VBG Base Excess Anion Gap Estim Creat Clear Calc Estimated GFR POC Glucose 312 H 295 H Random Glucose Lactic Acid 2.1 H* Lactic Acid F/U @ 2Hr Calcium Magnesium Total Bilirubin Direct Bilirubin AST ALT Alkaline Phosphatase Total Creatine Kinase Troponin I High Sens C-Reactive Protein Total Protein Albumin Lipase Beta-Hydroxybutyrate Beta HCG, Quant Urine Color Urine Appearance Urine pH Ur Specific [place] Urine Protein Urine Glucose (UA) Urine Ketones Urine Blood Urine Nitrite Ur Leukocyte Esterase Urine RBC Urine WBC Ur Squamous Epith Cells Urine Bacteria Hyaline Casts Ethyl Alcohol Influenza Type A (PCR) Influenza Type B (PCR) RSV RNA Qual (PCR) SARS-CoV-2 RNA (RT-PCR) 10/18/23 10/18/23 10/18/23 20:19 20:20 21:39 MCV 85.0 MCH 28.1 MCHC 33.1 RDW 14.2 Plt Count 509 H MPV 8.8 L Immature Gran % (Auto) 0.7 H Neut % (Auto) 90.6 H Lymph % (Auto) 6.7 L [place] % (Auto) 1.6 L Eos % (Auto) 0.0 Baso % (Auto) 0.4 Lymph # (Auto) 1.3 [place] # (Auto) 0.3 Eos # (Auto) 0.0 Baso # (Auto) 0.1 Abs Immat Gran (auto) 0.14 H Absolute Neuts (auto) 17.8 H Absolute Nucleated RBC 0.000 Nucleated RBC % (auto) 0.0 Smear Tech's Comments Hold Purple Top PT INR O2 Saturation ABG pH at Pt Temp ABG pCO2 at Pt Temp ABG pO2 at Pt Temp ABG HCO3 ABG Base Excess (Actual) VBG pH VBG pCO2 VBG pO2 VBG HCO3 VBG O2 Saturation VBG Base Excess Anion Gap 19 Estim Creat Clear Calc 86.4 Estimated GFR > 60 POC Glucose 338 H Random Glucose 344 H Lactic Acid Lactic Acid F/U @ 2Hr 2.0 Calcium 8.7 D Magnesium 1.6 Total Bilirubin 0.3 Direct Bilirubin AST 21 ALT 22 Alkaline Phosphatase 159 H Total Creatine Kinase Troponin I High Sens C-Reactive Protein Total Protein 8.0 Albumin 4.2 Lipase Beta-Hydroxybutyrate Beta HCG, Quant Urine Color Urine Appearance Urine pH Ur Specific [place] Urine Protein Urine Glucose (UA) Urine Ketones Urine Blood Urine Nitrite Ur Leukocyte Esterase Urine RBC Urine WBC Ur Squamous Epith Cells Urine Bacteria Hyaline Casts Ethyl Alcohol Influenza Type A (PCR) Influenza Type B (PCR) RSV RNA Qual (PCR) SARS-CoV-2 RNA (RT-PCR) 10/19/23 10/19/23 10/19/23 00:32 01:00 01:07 MCV MCH MCHC RDW Plt Count MPV Immature Gran % (Auto) Neut % (Auto) Lymph % (Auto) [place] % (Auto) Eos % (Auto) Baso % (Auto) Lymph # (Auto) [place] # (Auto) Eos # (Auto) Baso # (Auto) Abs Immat Gran (auto) Absolute Neuts (auto) Absolute Nucleated RBC Nucleated RBC % (auto) Smear Tech's Comments Hold Purple Top SEE NOTE PT INR O2 Saturation ABG pH at Pt Temp ABG pCO2 at Pt Temp ABG pO2 at Pt Temp ABG HCO3 ABG Base Excess (Actual) VBG pH 7.38 VBG pCO2 25 VBG pO2 82 VBG HCO3 15 L VBG O2 Saturation 94.0 VBG Base Excess -7.8 Anion Gap Estim Creat Clear Calc Estimated GFR POC Glucose 268 H Random Glucose Lactic Acid Lactic Acid F/U @ 2Hr Calcium Magnesium Total Bilirubin Direct Bilirubin AST ALT Alkaline Phosphatase Total Creatine Kinase Troponin I High Sens C-Reactive Protein Total Protein Albumin Lipase Beta-Hydroxybutyrate Beta HCG, Quant Urine Color Urine Appearance Urine pH Ur Specific [place] Urine Protein Urine Glucose (UA) Urine Ketones Urine Blood Urine Nitrite Ur Leukocyte Esterase Urine RBC Urine WBC Ur Squamous Epith Cells Urine Bacteria Hyaline Casts Ethyl Alcohol Influenza Type A (PCR) Influenza Type B (PCR) RSV RNA Qual (PCR) SARS-CoV-2 RNA (RT-PCR) 10/19/23 10/19/23 10/19/23 02:40 05:32 05:38 MCV 84.8 MCH 27.6 MCHC 32.6 RDW 14.3 Plt Count 491 H MPV 8.6 L Immature Gran % (Auto) Neut % (Auto) Lymph % (Auto) [place] % (Auto) Eos % (Auto) Baso % (Auto) Lymph # (Auto) [place] # (Auto) Eos # (Auto) Baso # (Auto) Abs Immat Gran (auto) Absolute Neuts (auto) Absolute Nucleated RBC 0.000 Nucleated RBC % (auto) 0.0 Smear Tech's Comments Hold Purple Top PT INR O2 Saturation ABG pH at Pt Temp ABG pCO2 at Pt Temp ABG pO2 at Pt Temp ABG HCO3 ABG Base Excess (Actual) VBG pH VBG pCO2 VBG pO2 VBG HCO3 VBG O2 Saturation VBG Base Excess Anion Gap 14 Estim Creat Clear Calc 80.9 Estimated GFR > 60 POC Glucose 200 H 152 H Random Glucose 156 H Lactic Acid Lactic Acid F/U @ 2Hr Calcium 9.0 Magnesium 1.7 Total Bilirubin Direct Bilirubin AST ALT Alkaline Phosphatase Total Creatine Kinase Troponin I High Sens C-Reactive Protein Total Protein Albumin Lipase Beta-Hydroxybutyrate Beta HCG, Quant Urine Color Urine Appearance Urine pH Ur Specific [place] Urine Protein Urine Glucose (UA) Urine Ketones Urine Blood Urine Nitrite Ur Leukocyte Esterase Urine RBC Urine WBC Ur Squamous Epith Cells Urine Bacteria Hyaline Casts Ethyl Alcohol Influenza Type A (PCR) Influenza Type B (PCR) RSV RNA Qual (PCR) SARS-CoV-2 RNA (RT-PCR) 10/19/23 10/19/23 06:32 10:40 MCV MCH MCHC RDW Plt Count MPV Immature Gran % (Auto) Neut % (Auto) Lymph % (Auto) [place] % (Auto) Eos % (Auto) Baso % (Auto) Lymph # (Auto) [place] # (Auto) Eos # (Auto) Baso # (Auto) Abs Immat Gran (auto) Absolute Neuts (auto) Absolute Nucleated RBC Nucleated RBC % (auto) Smear Tech's Comments Hold Purple Top PT INR O2 Saturation ABG pH at Pt Temp ABG pCO2 at Pt Temp ABG pO2 at Pt Temp ABG HCO3 ABG Base Excess (Actual) VBG pH VBG pCO2 VBG pO2 VBG HCO3 VBG O2 Saturation VBG Base Excess Anion Gap Estim Creat Clear Calc Estimated GFR POC Glucose 152 H 177 H Random Glucose Lactic Acid Lactic Acid F/U @ 2Hr Calcium Magnesium Total Bilirubin Direct Bilirubin AST ALT Alkaline Phosphatase Total Creatine Kinase Troponin I High Sens C-Reactive Protein Total Protein Albumin Lipase Beta-Hydroxybutyrate Beta HCG, Quant Urine Color Urine Appearance Urine pH Ur Specific [place] Urine Protein Urine Glucose (UA) Urine Ketones Urine Blood Urine Nitrite Ur Leukocyte Esterase Urine RBC Urine WBC Ur Squamous Epith Cells Urine Bacteria Hyaline Casts Ethyl Alcohol Influenza Type A (PCR) Influenza Type B (PCR) RSV RNA Qual (PCR) SARS-CoV-2 RNA (RT-PCR) Assessment and Plan (1) Acidosis, lactic: Status: Acute (2) Chronic hypertension: Status: Acute (3) Elevated WBC count: Status: Acute (4) Intractable cyclical vomiting with nausea: Status: Acute (5) Diabetes mellitus with gastroparesis: Status: Acute Plan Yumiko Sena is a 48 years old woman admitted with: Intractable nausea and vomiting 2/2 Gastroparesis and Acute gastritis recent use of clindamycin Continue IV fluids Reglan 10 mg IV every 8 hours Protonix 40 mg IV twice daily Pain control with Dilaudid IV as needed Advance diet as tolerated GI to evaluate acute Lactic acidosis due to dehydration resolved Continue IV fluids. Blood culture obtained -will follow results Leukocytosis likely secondary vomiting and dehydration. Continue IV fluids. Continue to monitor. Recent diagnosis of dental infection. On Unasyn. Non-anion gap metabolic acidosis secondary to lactic acidosis. anion gap is normal. Monitor BMP Type 1 diabetes mellitus on home insulin pump (insulin pump just ran out of insulin). Lantus and insulin sliding scale. POC Q4 Essential hypertension. Metoprolol 5 mg IV every 6 hours. Patient will need hospitalization overnight for are dehydration secondary to vomiting due to gastroparesis treatment with IV fluids, antiemetic and IV pain control. She will also will need close monitoring of vital signs. Quality Stroke Does the patient have a stroke diagnosis?: No VTE Prior VTE?: No VTE Risk Level:: Medical - moderate - high VTE Device Contraindication: Treatment Not Indicated VTE Drug Contraindication: N/A - Med Ordered
--- NOTE | 2023-10-19 11:45 | PM.GICN ---
History of Present Illness Data of Consult Service Date: 10/19/23 Requesting physician: Fernanda Kenny Primary Care Provider: Yulisa Avila MD HPI Reason for consult: Abd pain, N,V This is a 48-year-old female past medical history of type 1 diabetes complicated by diabetic gastroparesis status post G-POEM 2018, who presented to the hospital on 10/17 with DKA. Gastroenterology has been consulted for abdominal pain, nausea and vomiting. Patient was seen in the hospital for similar complaints in June as well. Reports symptoms have been very well controlled for the last 5 years after the G-POEM, but has had 2 episodes in the last 4 months. She is unsure what precipitated these but plans to review insulin pump settings with her irrigation equipment installer at the next visit. Currently, reports improvement in abdominal pain and vomiting. Has been tolerating clear liquids. Review of Systems Review of Systems: Yes all other systems are reviewed and are negative PMFSH Past Medical History Medical History Diabetic gastroparesis Herpes zoster Status post fall Recurrent UTI NSTEMI (non-ST elevated myocardial infarction) Diabetic gastroparesis Anxiety Bipolar 1 disorder Pancreatitis Gastroparesis Diabetes Surgical History Surgical History History of cholecystectomy History of tonsillectomy History of ERCP H/O pyloroplasty History of appendectomy H/O: hysterectomy Social History Social History Household Members: Spouse Housing: House Do you presently have visiting nurse or other home services: No Unable to assess alcohol history related to: Unknown Alcohol intake: never Comment: pt. refused bed alarm. Patient Tobacco Use Status: Former Tobacco user Tobacco use type: Cigarette e-Cigarette/Vaping Use: Never Used Second Hand Smoke Exposure: No Substance Use Type: Marijuana Advance Directives Date on File: 12/03/22 service: No Current occupational status: disabled Cognitive needs: No Hearing needs: No Vision needs: No Meds Allergies Allergy/AdvReac Type Severity Reaction Status Date / Time morphine [MORPHINE] Allergy Intermediate RASH, Verified 10/18/23 13:43 hives, hives mushroom Allergy Intermediate HIVES/RASH Verified 10/18/23 13:43 mushroom Allergy Unknown throat Uncoded 10/18/23 13:43 closes up/difficult breathing mushrooms Allergy Unknown anaphylaxis Uncoded 10/18/23 13:43 Active Medications: Current Medications Glucose (Glucose Gel 15 Gm Gel..Gram.) 15 gm PO Q15M PRN; Protocol PRN Reason: per Hypoglycemia Standing Ord. Hydromorphone HCl (Hydromorphone Hcl 1 Mg/Ml Syringe) 1 mg IVPUSH Q4H PRN; Protocol PRN Reason: Pain, Severe (Pain Scale 7-10) Last Admin: 10/19/23 08:22 Dose: 1 mg Dextrose (D10) 250 mls @ 750 mls/hr IV Q30M PRN PRN Reason: BG <70 Lactated Ringer's (Lr) 1,000 mls @ 100 mls/hr IVCONT .[facility]H [facility] Last Infusion: 10/19/23 08:17 Dose: Infused Ampicillin Sodium/Sulbactam (Sodium 1.5 gm/ Sodium Chloride) 100 mls @ 200 mls/hr IV Q6H [facility] Last Infusion: 10/19/23 09:48 Dose: Infused Dextrose (D10) 250 mls @ 750 mls/hr IV Q15M PRN; Protocol PRN Reason: per Hypoglycemia Standing Ord. Insulin Glargine (Insulin Glargine,Hum.Rec.Anlog 100 Unit/Ml 10 Ml Vial) 20 unit SUBCUT BEDTIME [facility] Insulin Human Lispro (Insulin Lispro 100 Unit/Ml 3 Ml Vial) 0 unit SUBCUT Q4H [facility]; Protocol Last Admin: 10/19/23 11:17 Dose: 4 unit Metoclopramide HCl (Metoclopramide Hcl 10 Mg/2 Ml Vial) 10 mg IVPUSH Q8H [facility] Last Admin: 10/19/23 07:08 Dose: 10 mg Metoprolol Tartrate (Metoprolol Tartrate 5 Mg/5 Ml Vial) 5 mg IVPUSH Q6H [facility] Last Admin: 10/19/23 08:30 Dose: 5 mg Ondansetron HCl (Ondansetron Hcl 4 Mg/2 Ml Vial) 4 mg IVPUSH Q8H PRN PRN Reason: Nausea and Vomiting Last Admin: 10/19/23 08:22 Dose: 4 mg Pantoprazole Sodium (Pantoprazole Sodium 40 Mg/10 Ml Vial) 40 mg IVPUSH Q12H [facility] Last Admin: 10/19/23 08:22 Dose: 40 mg Sodium Chloride (0.9 % Sodium Chloride Flush 3 Ml Syringe) 3 ml IVFLUSH QSHIFT [facility] Last Admin: 10/19/23 07:55 Dose: 3 ml Home Medications ?Medication ?Instructions ?Recorded ?Confirmed ?Last Taken ?Type lamotrigine 200 mg tablet 200 mg PO BID 05/11/20 10/18/23 10/17/23 History lorazepam 1 mg tablet 1 mg PO TID PRN Anxiety 05/11/20 10/18/23 06/17/23 08:00 History zolpidem 10 mg tablet 10 mg PO BEDTIME 05/11/20 10/18/23 10/17/23 History insulin aspart U-100 100 unit/mL 0 unit subcut DIRECTED 06/01/20 10/18/23 10/18/23 History (3 mL) subcutaneous pen (Novolog FlexPen U-100 Insulin aspart) risperidone 2 mg tablet 2 mg PO BID 09/13/21 10/18/23 10/17/23 History clindamycin HCl 300 mg capsule 300 mg PO TID 10/18/23 10/18/23 10/17/23 History Physical Exam Vital Signs: Vital Signs: Last Vital Signs Temp 97.3 F 10/19/23 11:19 Pulse 103 H 10/19/23 11:19 Resp 18 10/19/23 11:19 BP 151/72 H 10/19/23 11:19 Pulse Ox 97 10/19/23 11:19 O2 Del Method Room Air 10/19/23 11:19 BMI result Body Mass Index 26.6 Middle-aged female No apparent distress Nonicteric Abdomen soft, nontender, nondistended No peripheral edema Results Labs 10/21/23 06:07 10/21/23 06:07 Labs: Short CBC 10/18/23 10/18/23 10/19/23 Range/Units 17:30 20:19 05:32 WBC 19.3 H 19.6 H 17.1 H (4.8-10.8) X10*3/uL Hgb 11.6 L 11.8 L 11.3 L (12.0-16.0) g/dl Hct 35.0 L 35.7 L 34.7 L (37.0-47.0) % Plt Count 487 H 509 H 491 H (160-400) X10*3/uL BMP 10/18/23 10/18/23 10/19/23 14:12 20:20 05:32 Sodium 136 137 140 Potassium 3.9 4.4 4.0 Chloride 103 106 109 H Carbon Dioxide 17 L 16 L 21 L BUN 16 12 15 Creatinine 0.92 0.90 0.96 Calcium 9.9 D 8.7 D 9.0 Cardiac Enzymes 10/18/23 Range/Units 14:12 Total Creatine Kinase 48 (26-140) U/L Liver Function 10/18/23 10/18/23 Range/Units 14:12 20:20 Total Bilirubin 0.4 0.3 (0.0-1.0) mg/dL Direct Bilirubin 0.2 (0.0-0.5) mg/dL AST 16 21 (5-31) U/L ALT 20 22 (0-31) U/L Alkaline Phosphatase 164 H 159 H (39-117) U/L Albumin 4.4 4.2 (3.5-5.0) g/dL Urine 10/18/23 Range/Units 15:43 Urine Color Yellow Urine Appearance Clear Urine pH 5.5 (5.0-9.0) Ur Specific [place] 1.025 (1.005-1.025) Urine Protein 30 (1+) H (Neg-Trace) mg/dL Urine Glucose (UA) >=1000 H (Negative) mg/dL Assessment and Plan (1) Diabetic ketoacidosis: Status: Acute (2) Abdominal pain: Status: Acute (3) Vomiting: Qualifiers: Nausea presence: with nausea Vomiting Intractability: intractable Vomiting type: unspecified Qualified Code(s): R11.2 - Nausea with vomiting, unspecified Status: Resolved (4) Diabetic gastroparesis: Status: Acute Plan Abdominal pain, nausea vomiting is likely due to DKA. High pH on VBG noted, which could be due to contraction alkalosis, as remaining labs including gluc>400, high anion gap of 20, +BHB, glycosuria and ketonuria consistent with DKA. Anticipate abdominal pain, nausea and vomiting to improve within 24-48h of resolution of DKA. Patient already aware to discuss episodic high blood sugars in the absence of any other etiology with her irrigation equipment installer at the next visit. Procedures Date of Service Date of Service: 10/19/23
[2023-10-19 13:00] LABS: Estimated Average Glucose 177 mg/dL; Hemoglobin A1c % 7.8 % (<6.0)
[2023-10-19 14:28] LABS: Glucose, Whole Blood 300 mg/dL (60-115)
--- NOTE | 2023-10-19 16:27 | MHC.CM.PN ---
PT LIVES AT HOME WITH HER AND IS INDEPENDENT WITH CARE SHE HAS NO DME AND NO SERVICES HCP ON FILE PCP: SABRINA LYNCH IMM DELIVERED DCP: HOME NO SERVICES VIA PRIVATE TRANSPORT
[2023-10-19 16:33] LABS: Glucose, Whole Blood 242 mg/dL (60-115)
[2023-10-19] MEDS: Lactated Ringers 1,000 ML 100 ML IVCONT (16:39)
[2023-10-19 18:20] LABS: Glucose, Whole Blood 193 mg/dL (60-115)
[2023-10-19 22:44] LABS: Glucose, Whole Blood 288 mg/dL (60-115)
[2023-10-19] MEDS: Insulin Glargine,Hum.rec.anlog 100 UNIT/ML 10 ML VIAL 20 UNIT SUBCUT (22:45)
[2023-10-20] VITALS (7 sets, daily range): BP systolic 121–182; BP diastolic 56–93; PULSE 97–120; RESP 16–20; TEMP 36–37.2; O2SAT 96–99
[2023-10-20] MEDS: HYDROmorphone HCl 1 MG/ML SYRINGE IVPUSH ×4 (00:03→23:45)
[2023-10-20 02:33] LABS: Glucose, Whole Blood 153 mg/dL (60-115)
[2023-10-20] MEDS: Insulin Lispro 100 UNIT/ML 3 ML VIAL SUBCUT ×5 (02:51→23:51)
[2023-10-20] MEDS: Ampicillin Sodium/Sulbactam Na 1.5 GM in 0.9 % Sodium Chloride 100 ML IV ×4 (04:00→20:45)
[2023-10-20] MEDS: Metoprolol Tartrate 5 MG/5 ML VIAL IVPUSH ×4 (04:22→20:55)
[2023-10-20] MEDS: Lactated Ringers 1,000 ML 100 ML IVCONT (04:23)
[2023-10-20 06:10] LABS: Hemoglobin 11.9 g/dl (12.0-16.0); Mean Corpuscular HGB Conc 33.1 g/dl (31.0-35.0); Mean Corpuscular Hemoglobin 27.7 pg (27.0-33.0); Mean Corpuscular Volume 83.7 fL (80.0-98.0); Mean Platelet Volume 8.7 fL (9.4-12.3); Platelet Count 539 X10*3/uL (160-400); Red Cell Distribution Width 14.4 % (11.0-16.0); White Blood Count 19.7 X10*3/uL (4.8-10.8)
[2023-10-20] MEDS: Metoclopramide HCl 10 MG/2 ML VIAL IVPUSH ×3 (06:22→21:02)
[2023-10-20 06:54] LABS: Glucose, Whole Blood 131 mg/dL (60-115)
[2023-10-20] MEDS: 0.9 % Sodium Chloride Flush 3 ML SYRINGE IVFLUSH ×2 (08:18→15:13)
[2023-10-20] MEDS: Pantoprazole Sodium 40 MG/10 ML VIAL IVPUSH ×2 (08:18→20:57)
[2023-10-20] MEDS: ondansetron HCL 4 MG/2 ML VIAL IVPUSH (08:19)
[2023-10-20] MEDS: Dextrose 5 % and Lactated Ring 1,000 ML 125 ML IVCONT ×2 (10:46→20:39)
[2023-10-20 11:15] LABS: Anion Gap 16 (12-20); Blood Urea Nitrogen 16 mg/dL (9-16); Calcium 9.6 mg/dL (8.4-10.2); Carbon Dioxide 23 mmol/L (22-29); Chloride 101 mmol/L (96-108); Estimated Glomerular Filt Rate > 60; Glucose Random 105 mg/dL (60-115); Potassium 3.6 mmol/L (3.3-5.1); Sodium 136 mmol/L (135-145)
--- NOTE | 2023-10-20 11:38 | P.PNIM_ITS ---
Subjective Subjective Date of Service: 10/20/23 Interval History: Seen and evaluated this morning still reporting abdominal discomfort with nausea and vomiting unable to tolerate PO still Review of Systems Review of Systems: Yes all other systems are reviewed and are negative Physical Exam 2 Vital Signs: Vital Signs: Last Vital Signs Temp 98.2 F 10/20/23 08:00 Pulse 120 H 10/20/23 08:00 Resp 18 10/20/23 08:00 BP 175/91 H 10/20/23 08:00 Pulse Ox 99 10/20/23 08:00 O2 Del Method Room Air 10/20/23 08:00 BMI result Body Mass Index 26.6 Const: Other: Constitutional : Awake, interactive, not in distress Neck : Normal inspection, Supple Cardiovascular : RRR, no JVP, no lower extremity edema Respiratory : good bilateral air entry, no crackles, wheezes or rhonchi Gastrointestinal: soft, lax, Normal bowel sounds, generalized tenderness with palpation, no surgical signs Skin : Warm, Dry Neurological : Alert & oriented x3, No focal deficit Objective Data Active Medications Glucose (Glucose Gel 15 Gm Gel..Gram.) 15 gm PO Q15M PRN; Protocol PRN Reason: per Hypoglycemia Standing Ord. Hydromorphone HCl (Hydromorphone Hcl 1 Mg/Ml Syringe) 1 mg IVPUSH Q4H PRN; Protocol PRN Reason: Pain, Severe (Pain Scale 7-10) Last Admin: 10/20/23 08:18 Dose: 1 mg Documented By: TAINA Ampicillin Sodium/Sulbactam (Sodium 1.5 gm/ Sodium Chloride) 100 mls @ 200 mls/hr IV Q6H [facility] Last Infusion: 10/20/23 09:26 Dose: Infused Documented By: TAINA Dextrose (D10) 250 mls @ 750 mls/hr IV Q15M PRN; Protocol PRN Reason: per Hypoglycemia Standing Ord. Dextrose/Lactated Ringer's (D5lr) 1,000 mls @ 125 mls/hr IVCONT .Q8H [facility] Last Admin: 10/20/23 10:46 Dose: 125 mls/hr Documented By: TAINA Insulin Glargine (Insulin Glargine,Hum.Rec.Anlog 100 Unit/Ml 10 Ml Vial) 25 unit SUBCUT BEDTIME [facility] Insulin Human Lispro (Insulin Lispro 100 Unit/Ml 3 Ml Vial) 0 unit SUBCUT Q4H [facility]; Protocol Last Admin: 10/20/23 07:59 Dose: Not Given Documented By: TAINA Non-Admin Reason: No Insulin Coverage Metoclopramide HCl (Metoclopramide Hcl 10 Mg/2 Ml Vial) 10 mg IVPUSH Q8H [facility] Last Admin: 10/20/23 06:22 Dose: 10 mg Documented By: GUCCI Metoprolol Tartrate (Metoprolol Tartrate 5 Mg/5 Ml Vial) 5 mg IVPUSH Q6H [facility] Last Admin: 10/20/23 08:34 Dose: 5 mg Documented By: TAINA Ondansetron HCl (Ondansetron Hcl 4 Mg/2 Ml Vial) 4 mg IVPUSH Q8H PRN PRN Reason: Nausea and Vomiting Last Admin: 10/20/23 08:19 Dose: 4 mg Documented By: TAINA Pantoprazole Sodium (Pantoprazole Sodium 40 Mg/10 Ml Vial) 40 mg IVPUSH Q12H [facility] Last Admin: 10/20/23 08:18 Dose: 40 mg Documented By: TAINA Sodium Chloride (0.9 % Sodium Chloride Flush 3 Ml Syringe) 3 ml IVFLUSH QSHIFT [facility] Last Admin: 10/20/23 08:18 Dose: 3 ml Documented By: TAINA Labs 10/20/23 05:45 10/20/23 05:45 Labs: Laboratory Results - last 24 hr 10/19/23 10/19/23 10/19/23 05:32 14:24 16:26 MCV MCH MCHC RDW Plt Count MPV Absolute Nucleated RBC Nucleated RBC % (auto) Anion Gap Estim Creat Clear Calc Estimated GFR POC Glucose 300 H 242 H Random Glucose Estimat Average Glucose 177 Hemoglobin A1c % 7.8 H Calcium 10/19/23 10/19/23 10/20/23 18:16 22:40 02:26 MCV MCH MCHC RDW Plt Count MPV Absolute Nucleated RBC Nucleated RBC % (auto) Anion Gap Estim Creat Clear Calc Estimated GFR POC Glucose 193 H 288 H 153 H Random Glucose Estimat Average Glucose Hemoglobin A1c % Calcium 10/20/23 10/20/23 05:45 06:46 MCV 83.7 MCH 27.7 MCHC 33.1 RDW 14.4 Plt Count 539 H MPV 8.7 L Absolute Nucleated RBC 0.000 Nucleated RBC % (auto) 0.0 Anion Gap 16 Estim Creat Clear Calc 96.0 Estimated GFR > 60 POC Glucose 131 H Random Glucose 105 Estimat Average Glucose Hemoglobin A1c % Calcium 9.6 D Microbiology Microbiology Results: Microbiology 10/18/23 15:05 Blood Culture - Preliminary Blood - Venous No growth after 24 hours. 10/18/23 14:11 Blood Culture - Preliminary Blood - Venous No growth after 24 hours. Assessment and Plan (1) Acidosis, lactic: Status: Acute (2) Intractable cyclical vomiting with nausea: Status: Acute (3) Diabetes mellitus with gastroparesis: Status: Acute Plan Yumiko Sena is a 48 years old woman admitted with: Intractable nausea and vomiting 2/2 Gastroparesis and Acute gastritis possible CVC recent use of clindamycin Change IV fluid to D5LR Reglan 10 mg IV every 8 hours Protonix 40 mg IV twice daily Pain control with Dilaudid IV as needed Advance diet as tolerated GI input appreciated, continue current therapy, if no improvement consider EGD acute Lactic acidosis due to dehydration resolved Continue IV fluids. Blood culture obtained -will follow results Leukocytosis likely secondary vomiting and dehydration. Continue IV fluids. Continue to monitor. Recent diagnosis of dental infection. On Unasyn. Non-anion gap metabolic acidosis secondary to lactic acidosis. anion gap is normal. Monitor BMP Type 1 diabetes mellitus on home insulin pump (insulin pump just ran out of insulin). Lantus and insulin sliding scale. POC Q4 Essential hypertension. Metoprolol 5 mg IV every 6 hours. Patient will need hospitalization overnight for are dehydration secondary to vomiting due to gastroparesis\CVC treatment with IV fluids, antiemetic and IV pain control. She will also will need close monitoring of vital signs. Quality Stroke Does the patient have a stroke diagnosis?: No VTE Prior VTE?: No VTE Risk Level:: Medical - moderate - high VTE Device Contraindication: Treatment Not Indicated VTE Drug Contraindication: N/A - Med Ordered
[2023-10-20 11:44] LABS: Glucose, Whole Blood 288 mg/dL (60-115)
[2023-10-20 15:22] LABS: Glucose, Whole Blood 310 mg/dL (60-115)
[2023-10-20 18:30] LABS: Glucose, Whole Blood 216 mg/dL (60-115)
[2023-10-20] MEDS: Insulin Glargine,Hum.rec.anlog 100 UNIT/ML 10 ML VIAL 25 UNIT SUBCUT (20:37)
[2023-10-20] MEDS: lamoTRIgine 100 MG TABLET 200 MG PO (21:43)
[2023-10-20] MEDS: Zolpidem Tartrate 5 MG TABLET PO (21:45)
[2023-10-20] MEDS: risperiDONE 2 MG TABLET PO (21:45)
[2023-10-20 22:37] LABS: Glucose, Whole Blood 237 mg/dL (60-115)
[2023-10-21] VITALS: BP 130/72; PULSE 115; RESP 20; TEMP 37.4; O2SAT 98
[2023-10-21 02:19] LABS: Glucose, Whole Blood 273 mg/dL (60-115)
[2023-10-21] MEDS: Insulin Lispro 100 UNIT/ML 3 ML VIAL SUBCUT ×6 (03:12→22:15)
[2023-10-21] MEDS: Ampicillin Sodium/Sulbactam Na 1.5 GM in 0.9 % Sodium Chloride 100 ML IV ×4 (03:22→22:33)
[2023-10-21] MEDS: Metoprolol Tartrate 5 MG/5 ML VIAL IVPUSH ×4 (03:23→22:21)
[2023-10-21 03:26] VITALS: BP 158/74; PULSE 93; RESP 20; TEMP 36.3; O2SAT 97
[2023-10-21] MEDS: HYDROmorphone HCl 1 MG/ML SYRINGE IVPUSH ×5 (04:21→22:20)
[2023-10-21] MEDS: Dextrose 5 % and Lactated Ring 1,000 ML 125 ML IVCONT ×2 (04:29→18:14)
[2023-10-21 06:08] LABS: Glucose, Whole Blood 182 mg/dL (60-115)
[2023-10-21 06:37] LABS: Hematocrit 32.9 % (37.0-47.0); Hemoglobin 11.2 g/dl (12.0-16.0); Mean Corpuscular Hemoglobin 28.1 pg (27.0-33.0); Mean Corpuscular Volume 82.5 fL (80.0-98.0); Mean Platelet Volume 8.9 fL (9.4-12.3); Platelet Count 459 X10*3/uL (160-400); Red Blood Count 3.99 X10*6/uL (4.20-5.50); Red Cell Distribution Width 13.7 % (11.0-16.0); White Blood Count 14.6 X10*3/uL (4.8-10.8)
[2023-10-21] MEDS: Metoclopramide HCl 10 MG/2 ML VIAL IVPUSH ×3 (06:39→22:21)
[2023-10-21 07:00] LABS: Blood Urea Nitrogen 14 mg/dL (9-16); Calcium 8.7 mg/dL (8.4-10.2); Estimated Glomerular Filt Rate > 60; Glucose Random 201 mg/dL (60-115)
[2023-10-21 07:34] VITALS: BP 158/78; PULSE 100; RESP 20; TEMP 36.6; O2SAT 98
[2023-10-21 07:45] LABS: Anion Gap 12 (12-20); Carbon Dioxide 28 mmol/L (22-29); Chloride 101 mmol/L (96-108); Potassium 2.8 mmol/L (3.3-5.1); Sodium 138 mmol/L (135-145)
[2023-10-21] MEDS: Pantoprazole Sodium 40 MG/10 ML VIAL IVPUSH (09:44)
[2023-10-21] MEDS: ondansetron HCL 4 MG/2 ML VIAL IVPUSH ×2 (09:47→18:13)
--- NOTE | 2023-10-21 10:18 | MHC.CM.PN ---
Per ROUNDS discussion, Patient is not yet medically cleared for dc (C/O N/V, staring clear liquids); home is the goal and CM will continue to follow.
[2023-10-21 10:30] LABS: Glucose, Whole Blood 235 mg/dL (60-115)
[2023-10-21] MEDS: Potassium Chloride/H20 10 MEQ/100 ML PIGGYBACK 100 MEQ IV ×2 (10:58→13:22)
[2023-10-21] MEDS: lamoTRIgine 100 MG TABLET 200 MG PO ×2 (10:59→22:35)
[2023-10-21] MEDS: Midodrine HCl 5 MG TABLET PO (10:59)
[2023-10-21] MEDS: risperiDONE 2 MG TABLET PO ×2 (10:59→22:35)
[2023-10-21 11:13] VITALS: BP 186/91; PULSE 110; RESP 20; TEMP 36.4; O2SAT 99
--- NOTE | 2023-10-21 13:16 | P.PNIM_ITS ---
Subjective Subjective Date of Service: 10/21/23 Interval History: Seen and evaluated this morning still reporting significant nausea and dry heaving, not vomiting overnight started to tolerate water in small amounts Review of Systems Review of Systems: Yes all other systems are reviewed and are negative Physical Exam 2 Vital Signs: Vital Signs: Last Vital Signs Temp 97.6 F 10/21/23 11:13 Pulse 110 H 10/21/23 11:13 Resp 20 10/21/23 11:13 BP 186/91 H 10/21/23 11:13 Pulse Ox 99 10/21/23 11:13 O2 Del Method Room Air 10/21/23 11:13 BMI result Body Mass Index 26.6 Const: Other: Constitutional : Awake, interactive, not in distress Neck : Normal inspection, Supple Cardiovascular : RRR, no JVP, no lower extremity edema Respiratory : good bilateral air entry, no crackles, wheezes or rhonchi Gastrointestinal: soft, lax, Normal bowel sounds, generalized tenderness with palpation, no surgical signs Skin : Warm, Dry Neurological : Alert & oriented x3, No focal deficit Objective Data Active Medications Albuterol Sulfate (Albuterol Sulfate 90 Mcg 8 Gm Inhaler) 1 puff INHALE Q4H PRN PRN Reason: for wheezing Glucose (Glucose Gel 15 Gm Gel..Gram.) 15 gm PO Q15M PRN; Protocol PRN Reason: per Hypoglycemia Standing Ord. Hydromorphone HCl (Hydromorphone Hcl 1 Mg/Ml Syringe) 1 mg IVPUSH Q4H PRN; Protocol PRN Reason: Pain, Severe (Pain Scale 7-10) Last Admin: 10/21/23 09:42 Dose: 1 mg Documented By: LAURA Ampicillin Sodium/Sulbactam (Sodium 1.5 gm/ Sodium Chloride) 100 mls @ 200 mls/hr IV Q6H [facility] Last Infusion: 10/21/23 11:02 Dose: Infused Documented By: LAURA Dextrose (D10) 250 mls @ 750 mls/hr IV Q15M PRN; Protocol PRN Reason: per Hypoglycemia Standing Ord. Dextrose/Lactated Ringer's (D5lr) 1,000 mls @ 125 mls/hr IVCONT .Q8H [facility] Last Admin: 10/21/23 04:29 Dose: 125 mls/hr Documented By: HO.[email or web address] Insulin Glargine (Insulin Glargine,Hum.Rec.Anlog 100 Unit/Ml 10 Ml Vial) 25 unit SUBCUT BEDTIME [facility] Last Admin: 10/20/23 20:37 Dose: 25 unit Documented By: RAJEEV Insulin Human Lispro (Insulin Lispro 100 Unit/Ml 3 Ml Vial) 0 unit SUBCUT Q4H [facility]; Protocol Last Admin: 10/21/23 11:09 Dose: 6 unit Documented By: LAURA Lamotrigine (Lamotrigine 100 Mg Tablet) 200 mg PO BID [facility] Last Admin: 10/21/23 10:59 Dose: 200 mg Documented By: LAURA Lorazepam (Lorazepam 1 Mg Tablet) 1 mg PO TID PRN PRN Reason: Anxiety Metoclopramide HCl (Metoclopramide Hcl 10 Mg/2 Ml Vial) 10 mg IVPUSH Q8H [facility] Last Admin: 10/21/23 06:39 Dose: 10 mg Documented By: RAJEEV Metoprolol Tartrate (Metoprolol Tartrate 5 Mg/5 Ml Vial) 5 mg IVPUSH Q6H [facility] Last Admin: 10/21/23 09:46 Dose: 5 mg Documented By: LAURA Midodrine (Midodrine Hcl 5 Mg Tablet) 5 mg PO DAILY [facility] Last Admin: 10/21/23 10:59 Dose: 5 mg Documented By: LAURA Ondansetron HCl (Ondansetron Hcl 4 Mg/2 Ml Vial) 4 mg IVPUSH Q8H PRN PRN Reason: Nausea and Vomiting Last Admin: 10/21/23 09:47 Dose: 4 mg Documented By: LAURA Pantoprazole Sodium (Pantoprazole Sodium 40 Mg/10 Ml Vial) 40 mg IVPUSH Q12H [facility] Last Admin: 10/21/23 09:44 Dose: 40 mg Documented By: LAURA Risperidone (Risperidone 2 Mg Tablet) 2 mg PO BID [facility] Last Admin: 10/21/23 10:59 Dose: 2 mg Documented By: LAURA Sodium Chloride (0.9 % Sodium Chloride Flush 3 Ml Syringe) 3 ml IVFLUSH QSHIFT [facility] Last Admin: 10/21/23 09:43 Dose: Not Given Documented By: LAURA Non-Admin Reason: IV Running Zolpidem Tartrate (Zolpidem Tartrate 5 Mg Tablet) 5 mg PO BEDTIME [facility] Last Admin: 10/20/23 21:45 Dose: 5 mg Documented By: RAJEEV Labs 10/21/23 06:07 10/21/23 06:07 Labs: Laboratory Results - last 24 hr 10/20/23 10/20/23 10/20/23 15:17 18:27 22:33 MCV MCH MCHC RDW Plt Count MPV Absolute Nucleated RBC Nucleated RBC % (auto) Anion Gap Estim Creat Clear Calc Estimated GFR POC Glucose 310 H 216 H 237 H Random Glucose Calcium 10/21/23 10/21/23 10/21/23 02:10 06:00 06:07 MCV 82.5 MCH 28.1 MCHC 34.0 RDW 13.7 Plt Count 459 H MPV 8.9 L Absolute Nucleated RBC 0.000 Nucleated RBC % (auto) 0.0 Anion Gap 12 Estim Creat Clear Calc 101.0 Estimated GFR > 60 POC Glucose 273 H 182 H Random Glucose 201 H Calcium 8.7 D 10/21/23 10:25 MCV MCH MCHC RDW Plt Count MPV Absolute Nucleated RBC Nucleated RBC % (auto) Anion Gap Estim Creat Clear Calc Estimated GFR POC Glucose 235 H Random Glucose Calcium Microbiology Microbiology Results: Microbiology 10/18/23 15:05 Blood Culture - Preliminary Blood - Venous No growth after 48 hours. 10/18/23 14:11 Blood Culture - Preliminary Blood - Venous No growth after 48 hours. Assessment and Plan (1) Acidosis, lactic: Status: Acute (2) Intractable cyclical vomiting with nausea: Status: Acute (3) Elevated WBC count: Status: Acute (4) Diabetes mellitus with gastroparesis: Status: Acute (5) Acute hypokalemia: Status: Acute Plan Yumiko Sena is a 48 years old woman admitted with: Intractable nausea and vomiting 2/2 CVC , Gastroparesis and Acute gastritis recent use of clindamycin , Smokes weed Change IV fluid to D5LR Reglan 10 mg IV every 8 hours Protonix 40 mg IV twice daily Pain control with Dilaudid IV as needed Advance diet as tolerated GI input appreciated, continue current therapy, if no improvement consider EGD acute Lactic acidosis due to dehydration resolved Blood culture -ve Leukocytosis likely secondary vomiting and dehydration. Continue IV fluids. Continue to monitor. Recent diagnosis of dental infection. On Unasyn. started (10/17) Non-anion gap metabolic acidosis secondary to lactic acidosis. resolved anion gap is normal. Monitor BMP Acute hypokalemia PO and IV replacement given follow BMP Type 1 diabetes mellitus on home insulin pump (insulin pump just ran out of insulin). Lantus and insulin sliding scale. POC Essential hypertension. Metoprolol 5 mg IV every 6 hours until she tolerates PO Patient will need hospitalization overnight for are dehydration secondary to vomiting due to gastroparesis\CVC treatment with IV fluids, antiemetic and IV pain control. She will also will need close monitoring of vital signs. Quality Stroke Does the patient have a stroke diagnosis?: No VTE Prior VTE?: No VTE Risk Level:: Medical - moderate - high VTE Device Contraindication: Treatment Not Indicated VTE Drug Contraindication: N/A - Med Ordered
[2023-10-21 14:26] LABS: Glucose, Whole Blood 298 mg/dL (60-115)
[2023-10-21 15:37] VITALS: BP 156/74; PULSE 112; RESP 20; TEMP 36.5; O2SAT 99
[2023-10-21] MEDS: 0.9 % Sodium Chloride Flush 3 ML SYRINGE IVFLUSH (15:45)
[2023-10-21] MEDS: LORazepam 1 MG TABLET PO (15:47)
[2023-10-21 18:10] LABS: Glucose, Whole Blood 246 mg/dL (60-115)
[2023-10-21 20:00] VITALS: BP 140/78; PULSE 102; RESP 18; TEMP 36.4; O2SAT 98
[2023-10-21 21:54] LABS: Glucose, Whole Blood 201 mg/dL (60-115)
[2023-10-21] MEDS: Insulin Glargine,Hum.rec.anlog 100 UNIT/ML 10 ML VIAL 25 UNIT SUBCUT (22:16)
[2023-10-21] MEDS: Zolpidem Tartrate 5 MG TABLET PO (22:36)
[2023-10-22] VITALS (7 sets, daily range): BP systolic 115–147; BP diastolic 61–86; PULSE 82–114; RESP 16–20; TEMP 36.1–37.5; O2SAT 94–99
[2023-10-22 02:25] LABS: Glucose, Whole Blood 148 mg/dL (60-115)
[2023-10-22] MEDS: Insulin Lispro 100 UNIT/ML 3 ML VIAL SUBCUT ×6 (02:46→22:36)
[2023-10-22] MEDS: Metoprolol Tartrate 5 MG/5 ML VIAL IVPUSH (02:47)
[2023-10-22] MEDS: HYDROmorphone HCl 1 MG/ML SYRINGE IVPUSH ×5 (02:47→20:12)
[2023-10-22] MEDS: Ampicillin Sodium/Sulbactam Na 1.5 GM in 0.9 % Sodium Chloride 100 ML IV ×4 (03:01→20:13)
[2023-10-22] MEDS: Dextrose 5 % and Lactated Ring 1,000 ML 125 ML IVCONT (03:02)
[2023-10-22 05:49] LABS: Glucose, Whole Blood 129 mg/dL (60-115)
[2023-10-22] MEDS: LORazepam 1 MG TABLET PO (06:30)
[2023-10-22] MEDS: Metoclopramide HCl 10 MG/2 ML VIAL IVPUSH ×4 (06:32→22:36)
[2023-10-22 07:23] LABS: Hematocrit 30.7 % (37.0-47.0); Hemoglobin 10.7 g/dl (12.0-16.0); Mean Corpuscular HGB Conc 34.9 g/dl (31.0-35.0); Mean Corpuscular Hemoglobin 28.7 pg (27.0-33.0); Mean Corpuscular Volume 82.3 fL (80.0-98.0); Mean Platelet Volume 8.8 fL (9.4-12.3); Platelet Count 419 X10*3/uL (160-400); Red Blood Count 3.73 X10*6/uL (4.20-5.50); Red Cell Distribution Width 13.5 % (11.0-16.0); White Blood Count 12.5 X10*3/uL (4.8-10.8)
[2023-10-22 07:53] LABS: Anion Gap 12 (12-20); Blood Urea Nitrogen 9 mg/dL (9-16); Calcium 8.3 mg/dL (8.4-10.2); Carbon Dioxide 32 mmol/L (22-29); Chloride 96 mmol/L (96-108); Creatinine Clr Calc Pharmacy 109.5; Estimated Glomerular Filt Rate > 60; Glucose Random 171 mg/dL (60-115); Potassium 2.5 mmol/L (3.3-5.1); Sodium 137 mmol/L (135-145)
[2023-10-22 08:19] LABS: Magnesium 1.6 mg/dL (1.6-2.6)
[2023-10-22] MEDS: lamoTRIgine 100 MG TABLET 200 MG PO ×2 (08:39→20:10)
[2023-10-22] MEDS: Midodrine HCl 5 MG TABLET PO (08:39)
[2023-10-22] MEDS: risperiDONE 2 MG TABLET PO ×2 (08:40→20:10)
[2023-10-22] MEDS: Metoprolol Tartrate 25 MG TABLET PO ×2 (08:40→20:10)
[2023-10-22] MEDS: Lactated Ringers 1,000 ML 100 ML IVCONT ×2 (08:46→18:52)
[2023-10-22] MEDS: Potassium Chloride/H20 10 MEQ/100 ML PIGGYBACK 100 MEQ IV ×4 (08:53→12:49)
[2023-10-22 10:32] LABS: Glucose, Whole Blood 138 mg/dL (60-115)
--- NOTE | 2023-10-22 12:13 | P.PNIM_ITS ---
Subjective Subjective Date of Service: 10/22/23 Interval History: ongoing abd pain/nausea/vomiting K 2.5 Reglan + Zofran helpful Review of Systems Review of Systems: Yes all other systems are reviewed and are negative Physical Exam 2 Vital Signs: Vital Signs: Last Vital Signs Temp 97.4 F 10/22/23 12:00 Pulse 89 10/22/23 12:00 Resp 16 10/22/23 12:00 BP 147/86 H 10/22/23 12:00 Pulse Ox 99 10/22/23 12:00 O2 Del Method Room Air 10/22/23 12:00 BMI result Body Mass Index 26.6 Gen: in no acute distress HEENT: sclera anicteric, moist mucus membranes Neck: supple Lungs: clear to auscultation bilaterally Heart: regular rate and rhythm, no murmurs Abd: soft, generalized mild tenderness, non-distended Ext: no edema Skin: warm/well-perfused Neuro: alert and oriented x3, no focal findings Psych: appropriate affect Objective Data Active Medications Albuterol Sulfate (Albuterol Sulfate 90 Mcg 8 Gm Inhaler) 1 puff INHALE Q4H PRN PRN Reason: for wheezing Glucose (Glucose Gel 15 Gm Gel..Gram.) 15 gm PO Q15M PRN; Protocol PRN Reason: per Hypoglycemia Standing Ord. Hydromorphone HCl (Hydromorphone Hcl 1 Mg/Ml Syringe) 1 mg IVPUSH Q4H PRN; Protocol PRN Reason: Pain, Severe (Pain Scale 7-10) Last Admin: 10/22/23 12:00 Dose: 1 mg Documented By: UNA Ampicillin Sodium/Sulbactam (Sodium 1.5 gm/ Sodium Chloride) 100 mls @ 200 mls/hr IV Q6H [facility] Last Infusion: 10/22/23 11:20 Dose: Infused Documented By: UNA Dextrose (D10) 250 mls @ 750 mls/hr IV Q15M PRN; Protocol PRN Reason: per Hypoglycemia Standing Ord. Lactated Ringer's (Lr) 1,000 mls @ 100 mls/hr IVCONT .Q10H [facility] Last Admin: 10/22/23 08:46 Dose: 100 mls/hr Documented By: UNA Insulin Glargine (Insulin Glargine,Hum.Rec.Anlog 100 Unit/Ml 10 Ml Vial) 25 unit SUBCUT BEDTIME [facility] Last Admin: 10/21/23 22:16 Dose: 25 unit Documented By: RAJEEV Insulin Human Lispro (Insulin Lispro 100 Unit/Ml 3 Ml Vial) 0 unit SUBCUT Q4H [facility]; Protocol Last Admin: 10/22/23 11:27 Dose: 2 unit Documented By: UNA Lamotrigine (Lamotrigine 100 Mg Tablet) 200 mg PO BID [facility] Last Admin: 10/22/23 08:39 Dose: 200 mg Documented By: UNA Lorazepam (Lorazepam 1 Mg Tablet) 1 mg PO TID PRN PRN Reason: Anxiety Last Admin: 10/22/23 06:30 Dose: 1 mg Documented By: RAJEEV Metoclopramide HCl (Metoclopramide Hcl 10 Mg/2 Ml Vial) 10 mg IVPUSH Q6H [facility] Last Admin: 10/22/23 10:19 Dose: 10 mg Documented By: UNA Metoprolol Tartrate (Metoprolol Tartrate 25 Mg Tablet) 25 mg PO BID [facility]; Protocol Last Admin: 10/22/23 08:40 Dose: 25 mg Documented By: UNA Midodrine (Midodrine Hcl 5 Mg Tablet) 5 mg PO DAILY [facility] Last Admin: 10/22/23 08:39 Dose: 5 mg Documented By: UNA Ondansetron HCl (Ondansetron Hcl 4 Mg/2 Ml Vial) 4 mg IVPUSH Q8H PRN PRN Reason: Nausea and Vomiting Last Admin: 10/21/23 18:13 Dose: 4 mg Documented By: ABIGAIL Potassium Chloride (Potassium Chloride Packet 20 Meq Packet) 40 meq PO BID [facility] Stop: 10/22/23 21:01 Last Admin: 10/22/23 08:40 Dose: Not Given Documented By: UNA Non-Admin Reason: Patient Refused Risperidone (Risperidone 2 Mg Tablet) 2 mg PO BID [facility] Last Admin: 10/22/23 08:40 Dose: 2 mg Documented By: UNA Sodium Chloride (0.9 % Sodium Chloride Flush 3 Ml Syringe) 3 ml IVFLUSH QSHIFT [facility] Last Admin: 10/22/23 08:41 Dose: Not Given Documented By: UNA Non-Admin Reason: IV Running Zolpidem Tartrate (Zolpidem Tartrate 5 Mg Tablet) 5 mg PO BEDTIME [facility] Last Admin: 10/21/23 22:36 Dose: 5 mg Documented By: RAJEEV Labs 10/22/23 06:57 10/22/23 06:57 Labs: Laboratory Results - last 24 hr 10/21/23 10/21/23 10/21/23 14:22 18:02 21:50 MCV MCH MCHC RDW Plt Count MPV Absolute Nucleated RBC Nucleated RBC % (auto) Anion Gap Estim Creat Clear Calc Estimated GFR POC Glucose 298 H 246 H 201 H Random Glucose Calcium Magnesium 10/22/23 10/22/23 10/22/23 02:20 05:43 06:57 MCV 82.3 MCH 28.7 MCHC 34.9 RDW 13.5 Plt Count 419 H MPV 8.8 L Absolute Nucleated RBC 0.000 Nucleated RBC % (auto) 0.0 Anion Gap 12 Estim Creat Clear Calc 109.5 Estimated GFR > 60 POC Glucose 148 H 129 H Random Glucose 171 H Calcium 8.3 L Magnesium 1.6 10/22/23 10:29 MCV MCH MCHC RDW Plt Count MPV Absolute Nucleated RBC Nucleated RBC % (auto) Anion Gap Estim Creat Clear Calc Estimated GFR POC Glucose 138 H Random Glucose Calcium Magnesium Assessment and Plan (1) Acidosis, lactic: Status: Acute (2) Intractable cyclical vomiting with nausea: Status: Acute (3) Elevated WBC count: Status: Acute (4) Diabetes mellitus with gastroparesis: Status: Acute (5) Acute hypokalemia: Status: Acute Plan d5 48yo F with DM1 on insulin pump, gastroparesis s/p G-POEM hypoK - replete IV/PO, recheck in AM intractable N/V due to cyclic vomiting syndrome, gastroparesis, gastritis, ?THC [pt currently denies] - continue IV fluids - continue standing Reglan - continue IV PPI - prn Dilaudid lactic acidosis - due to dehydration; resolved recent dental infection - amp/sul 10/17-10/22 - leukocytosis improving DM1 - insulin pump ran out of insulin at home; currently on basal-bolus insulin; pt requested insulin refill for home pump mood disorder - lamotrigine, risperidone, lorazepam HTN - metoprolol VTE ppx - LMWH dispo - eventually home In my clinical judgment, the patient requires continued inpatient hospitalization for the following reasons: IV fluids, electrlyte repletion Total time managing care of this patient today: 35 minutes. Quality Stroke Does the patient have a stroke diagnosis?: No VTE Prior VTE?: No VTE Risk Level:: Medical - moderate - high VTE Device Contraindication: Treatment Not Indicated VTE Drug Contraindication: N/A - Med Ordered
[2023-10-22 15:01] LABS: Glucose, Whole Blood 191 mg/dL (60-115)
[2023-10-22 18:29] LABS: Glucose, Whole Blood 299 mg/dL (60-115)
[2023-10-22] MEDS: Zolpidem Tartrate 5 MG TABLET PO (20:10)
[2023-10-22] MEDS: Insulin Glargine,Hum.rec.anlog 100 UNIT/ML 10 ML VIAL 25 UNIT SUBCUT (20:10)
[2023-10-22 21:34] LABS: Glucose, Whole Blood 158 mg/dL (60-115)
[2023-10-23] VITALS (8 sets, daily range): BP systolic 100–149; BP diastolic 56–75; PULSE 80–100; RESP 16–20; TEMP 36.2–37.1; O2SAT 96–99
[2023-10-23 01:03] LABS: Glucose, Whole Blood 67 mg/dL (60-115)
[2023-10-23] MEDS: HYDROmorphone HCl 1 MG/ML SYRINGE IVPUSH ×6 (01:09→22:45)
[2023-10-23 01:43] LABS: Glucose, Whole Blood 137 mg/dL (60-115)
--- NOTE | 2023-10-23 01:48 | PC.NURSE ---
01:15a Pt C/O dizziness stated I think my sugar is low pt on full liquid diet, BS checked 67, pt given orange juice and crackers, re checked BS now 137. PT states feeling better and no longer feeling dizzy.
[2023-10-23] MEDS: Ampicillin Sodium/Sulbactam Na 1.5 GM in 0.9 % Sodium Chloride 100 ML IV ×4 (02:24→20:52)
[2023-10-23] MEDS: Metoclopramide HCl 10 MG/2 ML VIAL IVPUSH ×4 (04:53→21:29)
[2023-10-23] MEDS: 0.9 % Sodium Chloride Flush 3 ML SYRINGE IVFLUSH ×2 (04:53→15:36)
[2023-10-23 06:55] LABS: Glucose, Whole Blood 229 mg/dL (60-115)
[2023-10-23] MEDS: Midodrine HCl 5 MG TABLET PO (07:12)
[2023-10-23] MEDS: Metoprolol Tartrate 25 MG TABLET PO ×2 (07:12→20:54)
[2023-10-23] MEDS: lamoTRIgine 100 MG TABLET 200 MG PO ×2 (07:12→20:54)
[2023-10-23] MEDS: risperiDONE 2 MG TABLET PO ×2 (07:12→20:54)
[2023-10-23] MEDS: Insulin Lispro 100 UNIT/ML 3 ML VIAL SUBCUT ×4 (07:13→20:57)
--- NOTE | 2023-10-23 10:39 | MHC.CM.PN ---
Per ROUNDS discussion, Patient is not yet medically cleared for dc (pending labs, s/s of pain); home is the goal and CM will continue to follow.
--- NOTE | 2023-10-23 10:44 | HO.PM.IMPN ---
Subjective Subjective Date of Service: 10/23/23 Interval History: drinking clears vomited 3x this AM Review of Systems Review of Systems: Yes all other systems are reviewed and are negative Physical Exam Vital Signs: Vital Signs: Last Vital Signs Temp 97.9 F 10/23/23 07:52 Pulse 100 10/23/23 07:52 Resp 20 10/23/23 07:52 BP 149/69 H 10/23/23 07:52 Pulse Ox 98 10/23/23 07:52 O2 Del Method Room Air 10/23/23 07:52 BMI result Body Mass Index 26.6 Gen: in no acute distress HEENT: sclera anicteric, moist mucus membranes Neck: supple, R subclavian port Lungs: clear to auscultation bilaterally Heart: regular rate and rhythm, no murmurs Abd: soft, generalized mild tenderness, non-distended Ext: no edema Skin: warm/well-perfused Neuro: alert and oriented x3, no focal findings Psych: appropriate affect Objective Data Active Medications Albuterol Sulfate (Albuterol Sulfate 90 Mcg 8 Gm Inhaler) 1 puff INHALE Q4H PRN PRN Reason: for wheezing Glucose (Glucose Gel 15 Gm Gel..Gram.) 15 gm PO Q15M PRN; Protocol PRN Reason: per Hypoglycemia Standing Ord. Hydromorphone HCl (Hydromorphone Hcl 1 Mg/Ml Syringe) 1 mg IVPUSH Q4H PRN; Protocol PRN Reason: Pain, Severe (Pain Scale 7-10) Last Admin: 10/23/23 09:31 Dose: 1 mg Documented By: JOHN Ampicillin Sodium/Sulbactam (Sodium 1.5 gm/ Sodium Chloride) 100 mls @ 200 mls/hr IV Q6H [facility] Last Infusion: 10/23/23 10:36 Dose: Infused Documented By: JOHN Dextrose (D10) 250 mls @ 750 mls/hr IV Q15M PRN; Protocol PRN Reason: per Hypoglycemia Standing Ord. Lactated Ringer's (Lr) 1,000 mls @ 100 mls/hr IVCONT .Q10H [facility] Last Admin: 10/23/23 04:02 Dose: Not Given Documented By: JOHN Non-Admin Reason: IV Running Insulin Glargine (Insulin Glargine,Hum.Rec.Anlog 100 Unit/Ml 10 Ml Vial) 25 unit SUBCUT BEDTIME [facility] Last Admin: 10/22/23 20:10 Dose: 25 unit Documented By: HOSSEIN Insulin Human Lispro (Insulin Lispro 100 Unit/Ml 3 Ml Vial) 0 unit SUBCUT Q4H [facility]; Protocol Last Admin: 10/23/23 07:13 Dose: 6 unit Documented By: JOHN Lamotrigine (Lamotrigine 100 Mg Tablet) 200 mg PO BID [facility] Last Admin: 10/23/23 07:12 Dose: 200 mg Documented By: JOHN Lorazepam (Lorazepam 1 Mg Tablet) 1 mg PO TID PRN PRN Reason: Anxiety Last Admin: 10/22/23 06:30 Dose: 1 mg Documented By: RAJEEV Metoclopramide HCl (Metoclopramide Hcl 10 Mg/2 Ml Vial) 10 mg IVPUSH Q6H [facility] Last Admin: 10/23/23 09:31 Dose: 10 mg Documented By: JOHN Metoprolol Tartrate (Metoprolol Tartrate 25 Mg Tablet) 25 mg PO BID [facility]; Protocol Last Admin: 10/23/23 07:12 Dose: 25 mg Documented By: JOHN Midodrine (Midodrine Hcl 5 Mg Tablet) 5 mg PO DAILY [facility] Last Admin: 10/23/23 07:12 Dose: 5 mg Documented By: JOHN Ondansetron HCl (Ondansetron Hcl 4 Mg/2 Ml Vial) 4 mg IVPUSH Q8H PRN PRN Reason: Nausea and Vomiting Last Admin: 10/21/23 18:13 Dose: 4 mg Documented By: ABIGAIL Risperidone (Risperidone 2 Mg Tablet) 2 mg PO BID [facility] Last Admin: 10/23/23 07:12 Dose: 2 mg Documented By: JOHN Sodium Chloride (0.9 % Sodium Chloride Flush 3 Ml Syringe) 3 ml IVFLUSH QSHIFT [facility] Last Admin: 10/23/23 04:53 Dose: 3 ml Documented By: JOHN Zolpidem Tartrate (Zolpidem Tartrate 5 Mg Tablet) 5 mg PO BEDTIME [facility] Last Admin: 10/22/23 20:10 Dose: 5 mg Documented By: HOSSEIN Labs 10/22/23 06:57 04/10/24 10:56 Labs: Laboratory Results - last 24 hr 10/22/23 10/22/23 10/22/23 14:58 18:25 21:31 POC Glucose 191 H 299 H 158 H 10/23/23 10/23/23 10/23/23 00:59 01:39 06:50 POC Glucose 67 137 H 229 H Assessment and Plan (1) Acidosis, lactic: Status: Acute (2) Intractable cyclical vomiting with nausea: Status: Acute (3) Elevated WBC count: Status: Acute (4) Diabetes mellitus with gastroparesis: Status: Acute (5) Acute hypokalemia: Status: Acute Plan d6 48yo F with DM1 on insulin pump, gastroparesis s/p G-POEM hypoK, 2.5->2.8 - replete IV/PO, recheck in AM intractable N/V due to cyclic vomiting syndrome, gastroparesis, gastritis, ?THC [pt currently denies] - continue IV fluids - continue standing Reglan - continue IV PPI - prn Dilaudid lactic acidosis - due to dehydration; resolved recent dental infection - amp/sul 10/17-10/22 - leukocytosis improving DM1 - insulin pump ran out of insulin at home; currently on basal-bolus insulin; pt requested insulin refill for home pump mood disorder - lamotrigine, risperidone, lorazepam HTN - metoprolol VTE ppx - LMWH dispo - eventually home In my clinical judgment, the patient requires continued inpatient hospitalization for the following reasons: IV fluids, electrolyte repletion Total time managing care of this patient today: 35 minutes. Quality Stroke Does the patient have a stroke diagnosis?: No VTE Prior VTE?: No VTE Risk Level:: Medical - moderate - high VTE Device Contraindication: Treatment Not Indicated VTE Drug Contraindication: N/A - Med Ordered
[2023-10-23 11:20] LABS: Potassium 2.8 mmol/L (3.3-5.1)
[2023-10-23 11:21] LABS: Glucose, Whole Blood 190 mg/dL (60-115)
[2023-10-23 11:21] LABS: Anion Gap 12 (12-20); Blood Urea Nitrogen 4 mg/dL (9-16); Calcium 8.1 mg/dL (8.4-10.2); Carbon Dioxide 33 mmol/L (22-29); Chloride 95 mmol/L (96-108); Creatinine Clr Calc Pharmacy 114.3; Estimated Glomerular Filt Rate > 60; Glucose Random 203 mg/dL (60-115); Magnesium 1.8 mg/dL (1.6-2.6); Sodium 137 mmol/L (135-145)
[2023-10-23] MEDS: Potassium Chloride/H20 10 MEQ/100 ML PIGGYBACK 100 MEQ IV ×4 (11:49→17:54)
[2023-10-23] MEDS: Potassium Chloride Packet 20 MEQ PACKET 40 MEQ PO (11:50)
[2023-10-23] MEDS: ondansetron HCL 4 MG/2 ML VIAL IVPUSH (14:26)
[2023-10-23 16:14] LABS: Glucose, Whole Blood 304 mg/dL (60-115)
[2023-10-23] MEDS: Lactated Ringers 1,000 ML 100 ML IVCONT (17:55)
[2023-10-23 20:52] LABS: Glucose, Whole Blood 209 mg/dL (60-115)
[2023-10-23] MEDS: Zolpidem Tartrate 5 MG TABLET PO (20:54)
[2023-10-23] MEDS: Insulin Glargine,Hum.rec.anlog 100 UNIT/ML 10 ML VIAL 25 UNIT SUBCUT (20:55)
[2023-10-24] MEDS: Ampicillin Sodium/Sulbactam Na 1.5 GM in 0.9 % Sodium Chloride 100 ML IV ×2 (02:26→09:22)
[2023-10-24] MEDS: HYDROmorphone HCl 1 MG/ML SYRINGE IVPUSH ×6 (02:26→22:32)
[2023-10-24] MEDS: Lactated Ringers 1,000 ML 100 ML IVCONT ×2 (03:15→14:32)
[2023-10-24] MEDS: Metoclopramide HCl 10 MG/2 ML VIAL IVPUSH ×4 (03:15→22:00)
[2023-10-24 03:48] VITALS: BP 129/74; PULSE 88; RESP 18; TEMP 36.8; O2SAT 97
[2023-10-24 07:24] LABS: Glucose, Whole Blood 150 mg/dL (60-115)
[2023-10-24 07:30] LABS: Anion Gap 15 (12-20); Blood Urea Nitrogen 3 mg/dL (9-16); Calcium 8.8 mg/dL (8.4-10.2); Carbon Dioxide 30 mmol/L (22-29); Chloride 97 mmol/L (96-108); Creatinine Clr Calc Pharmacy 103.6; Estimated Glomerular Filt Rate > 60; Glucose Random 140 mg/dL (60-115); Magnesium 1.8 mg/dL (1.6-2.6); Phosphorus 2.8 mg/dL (2.7-4.5); Potassium 3.1 mmol/L (3.3-5.1); Sodium 139 mmol/L (135-145)
[2023-10-24 07:35] VITALS: BP 142/72; PULSE 91; RESP 18; TEMP 36.6; O2SAT 97
[2023-10-24] MEDS: 0.9 % Sodium Chloride Flush 3 ML SYRINGE IVFLUSH ×3 (09:22→22:03)
[2023-10-24] MEDS: Potassium Chloride Packet 20 MEQ PACKET 40 MEQ PO (09:22)
[2023-10-24] MEDS: lamoTRIgine 100 MG TABLET 200 MG PO ×2 (09:23→22:00)
[2023-10-24] MEDS: Insulin Lispro 100 UNIT/ML 3 ML VIAL SUBCUT ×4 (09:23→21:59)
[2023-10-24] MEDS: Midodrine HCl 5 MG TABLET PO (09:23)
[2023-10-24] MEDS: Metoprolol Tartrate 25 MG TABLET PO ×2 (09:23→22:00)
[2023-10-24] MEDS: ondansetron HCL 4 MG/2 ML VIAL IVPUSH (09:24)
[2023-10-24] MEDS: risperiDONE 2 MG TABLET PO ×2 (09:24→22:00)
[2023-10-24 10:53] LABS: Glucose, Whole Blood 197 mg/dL (60-115)
--- NOTE | 2023-10-24 10:56 | P.PNIM_ITS ---
Subjective Subjective Date of Service: 10/24/23 Interval History: tolerating a little more clears but still has N/V K 3.1 Review of Systems Review of Systems: Yes all other systems are reviewed and are negative Physical Exam 2 Vital Signs: Vital Signs: Last Vital Signs Temp 97.8 F 10/24/23 07:35 Pulse 91 10/24/23 07:35 Resp 18 10/24/23 07:35 BP 142/72 H 10/24/23 07:35 Pulse Ox 97 10/24/23 07:35 O2 Del Method Room Air 10/24/23 07:35 BMI result Body Mass Index 26.6 Gen: in no acute distress HEENT: sclera anicteric, moist mucus membranes Neck: supple, R subclavian port Lungs: clear to auscultation bilaterally Heart: regular rate and rhythm, no murmurs Abd: soft, generalized mild tenderness, non-distended Ext: no edema Skin: warm/well-perfused Neuro: alert and oriented x3, no focal findings Psych: appropriate affect Objective Data Active Medications Albuterol Sulfate (Albuterol Sulfate 90 Mcg 8 Gm Inhaler) 1 puff INHALE Q4H PRN PRN Reason: for wheezing Glucose (Glucose Gel 15 Gm Gel..Gram.) 15 gm PO Q15M PRN; Protocol PRN Reason: per Hypoglycemia Standing Ord. Hydromorphone HCl (Hydromorphone Hcl 1 Mg/Ml Syringe) 1 mg IVPUSH Q4H PRN; Protocol PRN Reason: Pain, Severe (Pain Scale 7-10) Last Admin: 10/24/23 10:33 Dose: 1 mg Documented By: GHANSHYAM Ampicillin Sodium/Sulbactam (Sodium 1.5 gm/ Sodium Chloride) 100 mls @ 200 mls/hr IV Q6H [facility] Last Infusion: 10/24/23 09:52 Dose: Infused Documented By: GHANSHYAM Dextrose (D10) 250 mls @ 750 mls/hr IV Q15M PRN; Protocol PRN Reason: per Hypoglycemia Standing Ord. Lactated Ringer's (Lr) 1,000 mls @ 100 mls/hr IVCONT .Q10H [facility] Last Admin: 10/24/23 03:15 Dose: 100 mls/hr Documented By: LYNN Insulin Glargine (Insulin Glargine,Hum.Rec.Anlog 100 Unit/Ml 10 Ml Vial) 25 unit SUBCUT BEDTIME [facility] Last Admin: 10/23/23 20:55 Dose: 25 unit Documented By: MANUELA Insulin Human Lispro (Insulin Lispro 100 Unit/Ml 3 Ml Vial) 0 unit SUBCUT QIDACHS [facility]; Protocol Last Admin: 10/24/23 09:23 Dose: 2 unit Documented By: GHANSHYAM Lamotrigine (Lamotrigine 100 Mg Tablet) 200 mg PO BID [facility] Last Admin: 10/24/23 09:23 Dose: 200 mg Documented By: GHANSHYAM Lorazepam (Lorazepam 1 Mg Tablet) 1 mg PO TID PRN PRN Reason: Anxiety Last Admin: 10/22/23 06:30 Dose: 1 mg Documented By: RAJEEV Metoclopramide HCl (Metoclopramide Hcl 10 Mg/2 Ml Vial) 10 mg IVPUSH Q6H [facility] Last Admin: 10/24/23 09:24 Dose: 10 mg Documented By: GHANSHYAM Metoprolol Tartrate (Metoprolol Tartrate 25 Mg Tablet) 25 mg PO BID [facility]; Protocol Last Admin: 10/24/23 09:23 Dose: 25 mg Documented By: GHANSHYAM Midodrine (Midodrine Hcl 5 Mg Tablet) 5 mg PO DAILY [facility] Last Admin: 10/24/23 09:23 Dose: 5 mg Documented By: GHANSHYAM Ondansetron HCl (Ondansetron Hcl 4 Mg/2 Ml Vial) 4 mg IVPUSH Q8H PRN PRN Reason: Nausea and Vomiting Last Admin: 10/24/23 09:24 Dose: 4 mg Documented By: GHANSHYAM Risperidone (Risperidone 2 Mg Tablet) 2 mg PO BID [facility] Last Admin: 10/24/23 09:24 Dose: 2 mg Documented By: GHANSHYAM Sodium Chloride (0.9 % Sodium Chloride Flush 3 Ml Syringe) [facility] Last Admin: 10/24/23 09:22 Dose: 3 ml Documented By: GHANSHYAM Zolpidem Tartrate (Zolpidem Tartrate 5 Mg Tablet) 5 mg PO BEDTIME [facility] Last Admin: 10/23/23 20:54 Dose: 5 mg Documented By: MANUELA Labs 10/22/23 06:57 10/24/23 06:53 Labs: Laboratory Results - last 24 hr 10/23/23 10/23/23 10/23/23 10:56 11:11 16:05 Hold Purple Top Anion Gap 12 Estim Creat Clear Calc 114.3 Estimated GFR > 60 POC Glucose 190 H 304 H Random Glucose 203 H Calcium 8.1 L Phosphorus Magnesium 1.8 10/23/23 10/23/23 10/24/23 20:45 Unknown 06:53 Hold Purple Top Cancelled SEE NOTE Anion Gap 15 Estim Creat Clear Calc 103.6 Estimated GFR > 60 POC Glucose 209 H Random Glucose 140 H Calcium 8.8 D Phosphorus 2.8 Magnesium 1.8 10/24/23 10/24/23 06:55 10:49 Hold Purple Top Anion Gap Estim Creat Clear Calc Estimated GFR POC Glucose 150 H 197 H Random Glucose Calcium Phosphorus Magnesium Microbiology Microbiology Results: Microbiology 10/18/23 15:05 Blood Culture - Final Blood - Venous No growth after 5 days. 10/18/23 14:11 Blood Culture - Final Blood - Venous No growth after 5 days. Assessment and Plan (1) Acidosis, lactic: Status: Acute (2) Intractable cyclical vomiting with nausea: Status: Acute (3) Elevated WBC count: Status: Acute (4) Diabetes mellitus with gastroparesis: Status: Acute (5) Acute hypokalemia: Status: Acute Plan d7 48yo F with DM1 on insulin pump, gastroparesis s/p G-POEM hypoK - replete PO, recheck electrolytes in AM intractable N/V due to cyclic vomiting syndrome, gastroparesis, gastritis, ?THC [pt currently denies] - continue IV fluids - continue standing Reglan - continue IV PPI - prn Dilaudid lactic acidosis - due to dehydration; resolved recent dental infection - amp/sul 10/17-10/22 - leukocytosis improving DM1 - insulin pump ran out of insulin at home; currently on basal-bolus insulin; pt requested insulin refill for home pump mood disorder - lamotrigine, risperidone, lorazepam HTN - metoprolol VTE ppx - LMWH dispo - eventually home In my clinical judgment, the patient requires continued inpatient hospitalization for the following reasons: IV fluids, electrolyte repletion Total time managing care of this patient today: 35 minutes. Quality Stroke Does the patient have a stroke diagnosis?: No VTE Prior VTE?: No VTE Risk Level:: Medical - moderate - high VTE Device Contraindication: Treatment Not Indicated VTE Drug Contraindication: N/A - Med Ordered
[2023-10-24 11:28] VITALS: BP 102/55; PULSE 88; RESP 20; TEMP 37.4; O2SAT 96
[2023-10-24 15:17] VITALS: BP 134/67; PULSE 82; RESP 20; TEMP 36.8; O2SAT 93
[2023-10-24 17:00] LABS: Glucose, Whole Blood 165 mg/dL (60-115)
[2023-10-24 19:54] VITALS: BP 115/59; PULSE 87; RESP 16; TEMP 36.9; O2SAT 99
[2023-10-24 21:04] LABS: Glucose, Whole Blood 233 mg/dL (60-115)
[2023-10-24] MEDS: Insulin Glargine,Hum.rec.anlog 100 UNIT/ML 10 ML VIAL 25 UNIT SUBCUT (21:59)
[2023-10-24] MEDS: Zolpidem Tartrate 5 MG TABLET PO (22:00)
[2023-10-25] VITALS (7 sets, daily range): BP systolic 90–153; BP diastolic 50–73; PULSE 81–104; RESP 16–18; TEMP 36.2–37.2; O2SAT 94–99
[2023-10-25 02:13] LABS: Glucose, Whole Blood 65 mg/dL (60-115)
[2023-10-25] MEDS: HYDROmorphone HCl 1 MG/ML SYRINGE IVPUSH ×5 (02:52→21:24)
[2023-10-25 03:33] LABS: Glucose, Whole Blood 124 mg/dL (60-115)
[2023-10-25] MEDS: Metoclopramide HCl 10 MG/2 ML VIAL IVPUSH ×4 (05:34→21:23)
[2023-10-25 07:30] LABS: Anion Gap 10 (12-20); Blood Urea Nitrogen 4 mg/dL (9-16); Calcium 8.7 mg/dL (8.4-10.2); Carbon Dioxide 32 mmol/L (22-29); Chloride 99 mmol/L (96-108); Creatinine Clr Calc Pharmacy 114.3; Estimated Glomerular Filt Rate > 60; Glucose Random 144 mg/dL (60-115); Magnesium 1.9 mg/dL (1.6-2.6); Phosphorus 2.4 mg/dL (2.7-4.5); Potassium 3.1 mmol/L (3.3-5.1); Sodium 138 mmol/L (135-145)
[2023-10-25 07:37] LABS: Glucose, Whole Blood 147 mg/dL (60-115)
[2023-10-25] MEDS: Metoprolol Tartrate 25 MG TABLET PO ×2 (08:30→21:23)
[2023-10-25] MEDS: risperiDONE 2 MG TABLET PO ×2 (08:30→21:24)
[2023-10-25] MEDS: lamoTRIgine 100 MG TABLET 200 MG PO ×2 (08:30→21:23)
[2023-10-25] MEDS: ondansetron HCL 4 MG/2 ML VIAL IVPUSH (08:31)
[2023-10-25] MEDS: Insulin Lispro 100 UNIT/ML 3 ML VIAL SUBCUT ×3 (08:31→17:10)
[2023-10-25] MEDS: Midodrine HCl 5 MG TABLET PO (08:31)
[2023-10-25] MEDS: 0.9 % Sodium Chloride Flush 3 ML SYRINGE IVFLUSH ×2 (08:32→17:12)
[2023-10-25] MEDS: Potassium Phosphate/NS 15 MMOL/250 ML PLAST..BAG 62.5 MMOL IV (09:34)
[2023-10-25] MEDS: Lactated Ringers 1,000 ML 100 ML IVCONT ×2 (09:35→21:33)
--- NOTE | 2023-10-25 09:41 | HO.PM.IMPN ---
Subjective Subjective Date of Service: 10/25/23 Interval History: nausea improved, wishes to try to eat abd pain improved Review of Systems Review of Systems: Yes all other systems are reviewed and are negative Physical Exam Vital Signs: Vital Signs: Last Vital Signs Temp 97.1 F 10/25/23 07:30 Pulse 89 10/25/23 07:30 Resp 18 10/25/23 07:30 BP 112/59 L 10/25/23 07:30 Pulse Ox 96 10/25/23 07:30 O2 Del Method Room Air 10/25/23 07:30 BMI result Body Mass Index 26.6 Gen: in no acute distress HEENT: sclera anicteric, moist mucus membranes Neck: supple, R subclavian port Lungs: clear to auscultation bilaterally Heart: regular rate and rhythm, no murmurs Abd: soft, generalized mild tenderness, non-distended Ext: no edema Skin: warm/well-perfused Neuro: alert and oriented x3, no focal findings Psych: appropriate affect Objective Data Active Medications Albuterol Sulfate (Albuterol Sulfate 90 Mcg 8 Gm Inhaler) 1 puff INHALE Q4H PRN PRN Reason: for wheezing Glucose (Glucose Gel 15 Gm Gel..Gram.) 15 gm PO Q15M PRN; Protocol PRN Reason: per Hypoglycemia Standing Ord. Hydromorphone HCl (Hydromorphone Hcl 1 Mg/Ml Syringe) 1 mg IVPUSH Q4H PRN; Protocol PRN Reason: Pain, Severe (Pain Scale 7-10) Last Admin: 10/25/23 06:52 Dose: 1 mg Documented By: NGHIA Dextrose (D10) 250 mls @ 750 mls/hr IV Q15M PRN; Protocol PRN Reason: per Hypoglycemia Standing Ord. Lactated Ringer's (Lr) 1,000 mls @ 100 mls/hr IVCONT .Q10H [facility] Last Admin: 10/25/23 09:35 Dose: 100 mls/hr Documented By: GHANSHYAM Potassium Phosphate (Kphos) 15 mmol in 250 mls @ 62.5 mls/hr IV ONCE ONE Stop: 10/25/23 11:53 Last Admin: 10/25/23 09:34 Dose: 62.5 mls/hr Documented By: GHANSHYAM Insulin Glargine (Insulin Glargine,Hum.Rec.Anlog 100 Unit/Ml 10 Ml Vial) 25 unit SUBCUT BEDTIME [facility], [facility] Last Admin: 10/24/23 21:59 Dose: 25 unit Documented By: NGHIA Insulin Human Lispro (Insulin Lispro 100 Unit/Ml 3 Ml Vial) 0 unit SUBCUT QIDACHS [facility], [facility]; Protocol Last Admin: 10/25/23 08:31 Dose: 2 unit Documented By: GHANSHYAM Lamotrigine (Lamotrigine 100 Mg Tablet) 200 mg PO BID [facility], [facility] Last Admin: 10/25/23 08:30 Dose: 200 mg Documented By: GHANSHYAM Lorazepam (Lorazepam 1 Mg Tablet) 1 mg PO TID PRN PRN Reason: Anxiety Last Admin: 10/22/23 06:30 Dose: 1 mg Documented By: RAJEEV Metoclopramide HCl (Metoclopramide Hcl 10 Mg/2 Ml Vial) 10 mg IVPUSH Q6H [facility], [facility] Last Admin: 10/25/23 08:31 Dose: 10 mg Documented By: GHANSHYAM Metoprolol Tartrate (Metoprolol Tartrate 25 Mg Tablet) 25 mg PO BID [facility], [facility]; Protocol Last Admin: 10/25/23 08:30 Dose: 25 mg Documented By: GHANSHYAM Midodrine (Midodrine Hcl 5 Mg Tablet) 5 mg PO DAILY [facility], [facility] Last Admin: 10/25/23 08:31 Dose: 5 mg Documented By: GHANSHYAM Ondansetron HCl (Ondansetron Hcl 4 Mg/2 Ml Vial) 4 mg IVPUSH Q8H PRN PRN Reason: Nausea and Vomiting Last Admin: 10/25/23 08:31 Dose: 4 mg Documented By: GHANSHYAM Risperidone (Risperidone 2 Mg Tablet) 2 mg PO BID [facility] Last Admin: 10/25/23 08:30 Dose: 2 mg Documented By: GHANSHYAM Sodium Chloride (0.9 % Sodium Chloride Flush 3 Ml Syringe) [facility] Last Admin: 10/25/23 08:32 Dose: 3 ml Documented By: GHANSHYAM Zolpidem Tartrate (Zolpidem Tartrate 5 Mg Tablet) 5 mg PO BEDTIME [facility] Last Admin: 10/24/23 22:00 Dose: 5 mg Documented By: NGHIA Labs 10/22/23 06:57 10/25/23 06:41 Labs: Laboratory Results - last 24 hr 10/24/23 10/24/23 10/24/23 10:49 16:18 20:57 Hold Purple Top Anion Gap Estim Creat Clear Calc Estimated GFR POC Glucose 197 H 165 H 233 H Random Glucose Calcium Phosphorus Magnesium 10/25/23 10/25/23 10/25/23 02:09 03:19 06:41 Hold Purple Top SEE NOTE Anion Gap 10 L Estim Creat Clear Calc 114.3 Estimated GFR > 60 POC Glucose 65 124 H Random Glucose 144 H Calcium 8.7 Phosphorus 2.4 L Magnesium 1.9 10/25/23 07:32 Hold Purple Top Anion Gap Estim Creat Clear Calc Estimated GFR POC Glucose 147 H Random Glucose Calcium Phosphorus Magnesium Assessment and Plan (1) Acidosis, lactic: Status: Acute (2) Intractable cyclical vomiting with nausea: Status: Acute (3) Elevated WBC count: Status: Acute (4) Diabetes mellitus with gastroparesis: Status: Acute (5) Acute hypokalemia: Status: Acute Plan d8 48yo F with DM1 on insulin pump, gastroparesis s/p G-POEM hypoK hypoPO4 - replete IV, recheck electrolytes in AM intractable N/V due to cyclic vomiting syndrome, gastroparesis, gastritis, ?THC [pt currently denies] - continue IV fluids - continue standing Reglan - IV -> PO PPI - prn Dilaudid - advance diet to solids today lactic acidosis - due to dehydration; resolved recent dental infection - amp/sul 10/17-10/22 - leukocytosis improving DM1 - insulin pump ran out of insulin at home; currently on basal-bolus insulin; pt requested insulin refill for home pump mood disorder - lamotrigine, risperidone, lorazepam HTN - metoprolol VTE ppx - LMWH dispo - home likely tomorrow if tolerating diet and electrolytes OK In my clinical judgment, the patient requires continued inpatient hospitalization for the following reasons: IV fluids, electrolyte repletion Total time managing care of this patient today: 35 minutes. Quality Stroke Does the patient have a stroke diagnosis?: No VTE Prior VTE?: No VTE Risk Level:: Medical - moderate - high VTE Device Contraindication: Treatment Not Indicated VTE Drug Contraindication: N/A - Med Ordered
--- NOTE | 2023-10-25 10:27 | MHC.CM.PN ---
Per ROUNDS discussion, Patient is not yet medically cleared for dc (advancing diet); home is the goal and CM will continue to follow.
[2023-10-25] MEDS: Omeprazole 20 MG CAPSULE.DR PO ×2 (11:19→16:18)
[2023-10-25 11:39] LABS: Glucose, Whole Blood 142 mg/dL (60-115)
[2023-10-25 16:38] LABS: Glucose, Whole Blood 153 mg/dL (60-115)
[2023-10-25 20:24] LABS: Glucose, Whole Blood 131 mg/dL (60-115)
[2023-10-25] MEDS: Insulin Glargine,Hum.rec.anlog 100 UNIT/ML 10 ML VIAL 25 UNIT SUBCUT (21:24)
[2023-10-26] VITALS (9 sets, daily range): BP systolic 110–130; BP diastolic 54–70; PULSE 86–98; RESP 16–20; TEMP 36.1–36.9; O2SAT 94–99
[2023-10-26] MEDS: HYDROmorphone HCl 1 MG/ML SYRINGE IVPUSH ×5 (00:57→20:31)
[2023-10-26] MEDS: 0.9 % Sodium Chloride Flush 3 ML SYRINGE IVFLUSH ×2 (00:58→20:33)
[2023-10-26] MEDS: LORazepam 1 MG TABLET PO (03:49)
[2023-10-26] MEDS: Metoclopramide HCl 10 MG/2 ML VIAL IVPUSH ×4 (03:49→20:31)
[2023-10-26] MEDS: Omeprazole 20 MG CAPSULE.DR PO ×2 (05:19→16:40)
[2023-10-26 07:36] LABS: Anion Gap 10 (12-20); Blood Urea Nitrogen 4 mg/dL (9-16); Calcium 8.4 mg/dL (8.4-10.2); Carbon Dioxide 30 mmol/L (22-29); Chloride 100 mmol/L (96-108); Creatinine Clr Calc Pharmacy 114.3; Estimated Glomerular Filt Rate > 60; Glucose Random 166 mg/dL (60-115); Magnesium 1.9 mg/dL (1.6-2.6); Phosphorus 2.6 mg/dL (2.7-4.5); Potassium 3.1 mmol/L (3.3-5.1); Sodium 137 mmol/L (135-145)
[2023-10-26 07:40] LABS: Glucose, Whole Blood 162 mg/dL (60-115)
[2023-10-26] MEDS: risperiDONE 2 MG TABLET PO ×2 (08:39→20:31)
[2023-10-26] MEDS: Midodrine HCl 5 MG TABLET PO (08:39)
[2023-10-26] MEDS: lamoTRIgine 100 MG TABLET 200 MG PO ×2 (08:39→20:31)
[2023-10-26] MEDS: Metoprolol Tartrate 25 MG TABLET PO ×2 (08:40→20:31)
[2023-10-26] MEDS: Insulin Lispro 100 UNIT/ML 3 ML VIAL SUBCUT ×3 (08:41→20:32)
[2023-10-26] MEDS: Lactated Ringers 1,000 ML 100 ML IVCONT (08:44)
[2023-10-26] MEDS: KCl 40 mEq in 0.9 % Sodium Chl 40 MEQ/1,000 ML IV.SOLN 125 MEQ IVCONT ×2 (12:13→21:02)
[2023-10-26 12:19] LABS: Glucose, Whole Blood 122 mg/dL (60-115)
--- NOTE | 2023-10-26 13:35 | P.PNIM_ITS ---
Subjective Subjective Date of Service: 10/26/23 Interval History: Slowly improving; attempted diet today but developed severe nausea Review of Systems Denies chest pain Denies shortness of breath Denies nausea vomiting diarrhea Denies fever chills Physical Exam 2 Vital Signs: Vital Signs: Last Vital Signs Temp 97 F 10/26/23 12:00 Pulse 86 10/26/23 12:00 Resp 16 10/26/23 12:14 BP 127/69 10/26/23 12:00 Pulse Ox 97 10/26/23 12:00 O2 Del Method Room Air 10/26/23 12:00 BMI result Body Mass Index 26.6 Const: Other: Awake alert no acute distress Resp: Other: Clear to auscultation bilaterally no rales rhonchi or wheezes Cardio: Other: No S4; positive S1-S2; no S3 murmurs rubs or gallops GI: Other: Soft nontender nondistended normoactive bowel sounds Extrem: Other: No edema bilaterally Objective Data Active Medications Albuterol Sulfate (Albuterol Sulfate 90 Mcg 8 Gm Inhaler) 1 puff INHALE Q4H PRN PRN Reason: for wheezing Glucose (Glucose Gel 15 Gm Gel..Gram.) 15 gm PO Q15M PRN; Protocol PRN Reason: per Hypoglycemia Standing Ord. Hydromorphone HCl (Hydromorphone Hcl 1 Mg/Ml Syringe) 1 mg IVPUSH Q4H PRN; Protocol PRN Reason: Pain, Severe (Pain Scale 7-10) Last Admin: 10/26/23 09:51 Dose: 1 mg Documented By: JOHN Dextrose (D10) 250 mls @ 750 mls/hr IV Q15M PRN; Protocol PRN Reason: per Hypoglycemia Standing Ord. Lactated Ringer's (Lr) 1,000 mls @ 100 mls/hr IVCONT .Q10H [facility] Last Admin: 10/26/23 08:44 Dose: 100 mls/hr Documented By: DARLIN Potassium Chloride/Sodium Chloride (Kcl 40 Meq In 0.9 % Sodium Chl) 40 meq in 1,000 mls @ 125 mls/hr IVCONT .Q8H [facility] Last Admin: 10/26/23 12:13 Dose: 125 mls/hr Documented By: JOHN Insulin Glargine (Insulin Glargine,Hum.Rec.Anlog 100 Unit/Ml 10 Ml Vial) 25 unit SUBCUT BEDTIME [facility] Last Admin: 10/25/23 21:24 Dose: 25 unit Documented By: MANUELA Insulin Human Lispro (Insulin Lispro 100 Unit/Ml 3 Ml Vial) 0 unit SUBCUT QIDACHS [facility]; Protocol Last Admin: 10/26/23 12:14 Dose: Not Given Documented By: JOHN Non-Admin Reason: No Insulin Coverage Lamotrigine (Lamotrigine 100 Mg Tablet) 200 mg PO BID [facility] Last Admin: 10/26/23 08:39 Dose: 200 mg Documented By: DARLIN Metoclopramide HCl (Metoclopramide Hcl 10 Mg/2 Ml Vial) 10 mg IVPUSH Q6H [facility] Last Admin: 10/26/23 09:51 Dose: 10 mg Documented By: JOHN Metoprolol Tartrate (Metoprolol Tartrate 25 Mg Tablet) 25 mg PO BID [facility]; Protocol Last Admin: 10/26/23 08:40 Dose: 25 mg Documented By: DARLIN Midodrine (Midodrine Hcl 5 Mg Tablet) 5 mg PO DAILY [facility] Last Admin: 10/26/23 08:39 Dose: 5 mg Documented By: DARLIN Omeprazole (Omeprazole 20 Mg Capsule.Dr) 20 mg PO BID@0630,1630 [facility] Last Admin: 10/26/23 05:19 Dose: 20 mg Documented By: LYNN Ondansetron HCl (Ondansetron Hcl 4 Mg/2 Ml Vial) 4 mg IVPUSH Q8H PRN PRN Reason: Nausea and Vomiting Last Admin: 10/25/23 08:31 Dose: 4 mg Documented By: GHANSHYAM Risperidone (Risperidone 2 Mg Tablet) 2 mg PO BID [facility] Last Admin: 10/26/23 08:39 Dose: 2 mg Documented By: DARLIN Sodium Chloride (0.9 % Sodium Chloride Flush 3 Ml Syringe) 3 ml IVFLUSH Q[facility] Last Admin: 10/26/23 08:42 Dose: Not Given Documented By: DARLIN Non-Admin Reason: No Access Labs 10/22/23 06:57 10/26/23 06:07 Labs: Laboratory Results - last 24 hr 10/25/23 10/25/23 10/26/23 16:30 20:16 06:07 Hold Purple Top SEE NOTE Anion Gap 10 L Estim Creat Clear Calc 114.3 Estimated GFR > 60 POC Glucose 153 H 131 H Random Glucose 166 H Calcium 8.4 Phosphorus 2.6 L Magnesium 1.9 10/26/23 10/26/23 07:32 12:13 Hold Purple Top Anion Gap Estim Creat Clear Calc Estimated GFR POC Glucose 162 H 122 H Random Glucose Calcium Phosphorus Magnesium Assessment and Plan (1) Intractable cyclical vomiting with nausea: Status: Acute (2) Acute hypokalemia: Status: Acute Plan 48yo F with DM1 on insulin pump, gastroparesis s/p G-POEM 1.Intractable N/V due to cyclic vomiting syndrome, gastroparesis, gastritis, ?THC [pt currently denies] - continue IV fluids - continue standing Reglan/zofran -prn Dilaudid - advance diet to solids today 2.DM1 -acceptable control on current therapies -Lispro correctional scale/basal insulin -adjust as indicated LMWH Full code In my clinical judgment, the patient requires continued inpatient hospitalization for the following reasons: IV fluids, electrolyte repletion secondary to persistent nausea and vomiting Quality Stroke Does the patient have a stroke diagnosis?: No VTE Prior VTE?: No VTE Risk Level:: Medical - moderate - high VTE Device Contraindication: Treatment Not Indicated VTE Drug Contraindication: N/A - Med Ordered
[2023-10-26 16:36] LABS: Glucose, Whole Blood 289 mg/dL (60-115)
[2023-10-26 20:29] LABS: Glucose, Whole Blood 129 mg/dL (60-115)
[2023-10-26] MEDS: Insulin Glargine,Hum.rec.anlog 100 UNIT/ML 10 ML VIAL 25 UNIT SUBCUT (20:32)
[2023-10-27] VITALS (9 sets, daily range): BP systolic 102–132; BP diastolic 58–69; PULSE 82–96; RESP 16–20; TEMP 36.2–36.9; O2SAT 96–99
[2023-10-27] MEDS: HYDROmorphone HCl 1 MG/ML SYRINGE IVPUSH ×6 (00:35→20:45)
[2023-10-27] MEDS: Metoclopramide HCl 10 MG/2 ML VIAL IVPUSH ×4 (04:35→20:47)
[2023-10-27] MEDS: KCl 40 mEq in 0.9 % Sodium Chl 40 MEQ/1,000 ML IV.SOLN 125 MEQ IVCONT ×3 (04:35→23:00)
[2023-10-27] MEDS: Omeprazole 20 MG CAPSULE.DR PO ×2 (05:49→16:38)
[2023-10-27 07:03] LABS: MANUAL DIFF FLAG NO
[2023-10-27 07:13] LABS: Basophils Absolute Auto 0.1 X10*3/uL (0.0-0.2); Basophils Percent Auto 0.4 % (0-2); Eosinophils Absolute Auto 0.3 X10*3/uL (0.0-0.4); Eosinophils Percent Auto 1.9 % (0-4); Hematocrit 27.9 % (37.0-47.0); Hemoglobin 9.3 g/dl (12.0-16.0); Imm Gran Abs Auto 0.05 X10*3/uL (0.00-0.03); Imm Gran Pct Auto 0.4 % (0.0-0.4); Lymphocytes Absolute Auto 3.1 X10*3/uL (1.2-4.9); Mean Corpuscular HGB Conc 33.3 g/dl (31.0-35.0); Mean Corpuscular Hemoglobin 28.4 pg (27.0-33.0); Mean Corpuscular Volume 85.3 fL (80.0-98.0); Mean Platelet Volume 9.1 fL (9.4-12.3); Monocytes Absolute Auto 1.2 X10*3/uL (0.1-1.2); Monocytes Percent Auto 8.4 % (2-11); Neutrophils Absolute Auto 9.3 x10*3/uL (2.0-8.3); Neutrophils Percent Auto 66.9 % (45-73); Platelet Count 427 X10*3/uL (160-400); Red Blood Count 3.27 X10*6/uL (4.20-5.50); Red Cell Distribution Width 14.5 % (11.0-16.0); White Blood Count 13.9 X10*3/uL (4.8-10.8)
[2023-10-27 07:25] LABS: Glucose, Whole Blood 99 mg/dL (60-115)
[2023-10-27 07:40] LABS: Alanine Aminotransferase 8 U/L (0-31); Albumin Level 3.2 g/dL (3.5-5.0); Alkaline Phosphatase 116 U/L (39-117); Aspartate Amino Transferase 9 U/L (5-31); Bilirubin Total 0.3 mg/dL (0.0-1.0); Blood Urea Nitrogen 4 mg/dL (9-16); Calcium 8.4 mg/dL (8.4-10.2); Creatinine Clr Calc Pharmacy 123.4; Estimated Glomerular Filt Rate > 60; Glucose Fasting 92 mg/dL (60-99); Total Protein 5.8 g/dL (6.5-8.0)
[2023-10-27 07:55] LABS: Anion Gap 10 (12-20); Carbon Dioxide 26 mmol/L (22-29); Chloride 106 mmol/L (96-108); Potassium 4.1 mmol/L (3.3-5.1); Sodium 138 mmol/L (135-145)
[2023-10-27] MEDS: Metoprolol Tartrate 25 MG TABLET PO ×2 (08:29→20:45)
[2023-10-27] MEDS: risperiDONE 2 MG TABLET PO ×2 (08:29→20:45)
[2023-10-27] MEDS: Midodrine HCl 5 MG TABLET PO (08:29)
[2023-10-27] MEDS: lamoTRIgine 100 MG TABLET 200 MG PO ×2 (08:29→20:45)
[2023-10-27] MEDS: 0.9 % Sodium Chloride Flush 3 ML SYRINGE IVFLUSH ×3 (08:29→23:00)
[2023-10-27 11:36] LABS: Glucose, Whole Blood 296 mg/dL (60-115)
--- NOTE | 2023-10-27 11:42 | P.DS_ITS ---
DS: Providers Provider Date of Service: 10/27/23 Date of admission: 10/18/23 19:45 Date of discharge: 10/27/23 Primary care physician: Yulisa Avila MD Consults: 10/19/23 11:09 Consult to Gastroenterology Routine Consulting Provider: Kasia Fletcher Reason for consultation: Intractable nausea and vomiting. for eval and rec. DS: Diagnosis Discharge Diagnosis (1) Intractable cyclical vomiting with nausea: Status: Acute (2) Acute hypokalemia: Status: Acute DS: Summary Hospital Course Hospital Course: 48 years old woman with past medical history significant for type 1 diabetes mellitus on insulin pump, gastroparesis, GERD and hyperlipidemia presents to the emergency department complaining of abdominal pain and multiple episodes of vomiting. She denied diarrhea, fevers and chills. Denied any acute cardiopulmonary or genitourinary symptoms. HPI was limited as the patient was in distress due to pain. Patient has been taking clindamycin for dental infection. She mentioned that her insulin pump ran out of insulin. She has a Port-A-Cath in place. She has history of multiple abdominal surgeries/procedures including appendectomy, hysterectomy, ERCP and cholecystectomy. . In the ED, she has been found with marked tachycardia and hypertension. There is no fever. Blood workup is remarkable for leukocytosis and lactic acidosis. Hemoglobin is 11.6 which is at baseline. Bicarb is 17. Renal function is adequate. There is hyperglycemia (last blood glucose is 295. Lytes bicarb 17. Anion gap is normal. Beta-hydroxybutyrate is elevated, 3.13. Electrolytes are unremarkable as well as LFTs. Troponin is negative. test is negative. Urinalysis remarkable for proteinuria, elevated glucose and small blood. There is no evidence of UTI. CXR is negative. Patient has had multiple CT scans in the past that showed no acute intra-abdominal abnormalities. ECG shows sinus tachycardia without acute ischemic changes ED tx: NS 3 L bolus, Dilaudid 1 mg IV, droperidol 0.625 mg IV, hydromorphone 0.5 mg IV, insulin R 4 mg IV, Ativan 1 mg IV, metoprolol 5 mg IV (total), Reglan 10 mg IV, Benadryl 25 mg IV and guardian 20 mg units subQ. Hospital Course Patient was admitted to telemetry. Aggressive volume repletion and pain management was implemented. Sugars were managed with resumption of insulin. She completed a course of Unasyn for the dental infection for which she had been taking clindamycin. It was also felt that she would have a gastritis from the clindamycin. Over the course of her hospitalization she will continued to be extremely nauseous and unable to keep any solids down. She was maintained with IV fluids her diet slowly was advanced. In the 24 hours prior to discharge she was able to maintain a diet that she states is similar to home and she will be discharged today to resume her therapies. She has been instructed to follow up with her telephone claims representative and PCP at the next available appointment Time Attestation Discharge Coordination Time (in mins): 35 Quality: Safe Use of Opioids Does Pt have an Active Cancer Diagnosis on the Problem List?: No Quality: Stroke Does the patient have a stroke diagnosis?: No Physical Exam Vital Signs: Vital Signs: Last Vital Signs Temp 98.5 F 10/27/23 07:42 Pulse 96 10/27/23 07:42 Resp 18 10/27/23 08:29 BP 112/63 10/27/23 07:42 Pulse Ox 96 10/27/23 07:42 O2 Del Method Room Air 10/27/23 07:42 BMI result Body Mass Index 26.6 Const: Other: Awake alert no acute distress Resp: Other: Clear to auscultation bilaterally no rales rhonchi or wheezes Cardio: Other: No S4; positive S1-S2; no S3 murmurs rubs or gallops GI: Other: Soft nontender nondistended normoactive bowel sounds Extrem: Other: No edema bilaterally DS: Data Data Completed and Pending Labs on day of discharge: Laboratory Results - last 24 hr 10/26/23 10/26/23 10/26/23 12:13 16:31 20:19 WBC RBC Hgb Hct MCV MCH MCHC RDW Plt Count MPV Immature Gran % (Auto) Neut % (Auto) Lymph % (Auto) [place] % (Auto) Eos % (Auto) Baso % (Auto) Lymph # (Auto) [place] # (Auto) Eos # (Auto) Baso # (Auto) Abs Immat Gran (auto) Absolute Neuts (auto) Absolute Nucleated RBC Nucleated RBC % (auto) Sodium Potassium Chloride Carbon Dioxide Anion Gap BUN Creatinine Estim Creat Clear Calc Estimated GFR POC Glucose 122 H 289 H 129 H Fasting Glucose Calcium Total Bilirubin AST ALT Alkaline Phosphatase Total Protein Albumin 10/27/23 10/27/23 10/27/23 06:22 06:59 11:20 WBC 13.9 H RBC 3.27 L Hgb 9.3 L Hct 27.9 L MCV 85.3 MCH 28.4 MCHC 33.3 RDW 14.5 Plt Count 427 H MPV 9.1 L Immature Gran % (Auto) 0.4 Neut % (Auto) 66.9 Lymph % (Auto) 22.0 [place] % (Auto) 8.4 Eos % (Auto) 1.9 Baso % (Auto) 0.4 Lymph # (Auto) 3.1 [place] # (Auto) 1.2 Eos # (Auto) 0.3 Baso # (Auto) 0.1 Abs Immat Gran (auto) 0.05 H Absolute Neuts (auto) 9.3 H Absolute Nucleated RBC 0.000 Nucleated RBC % (auto) 0.0 Sodium 138 Potassium 4.1 D Chloride 106 Carbon Dioxide 26 Anion Gap 10 L BUN 4 L Creatinine 0.63 Estim Creat Clear Calc 123.4 Estimated GFR > 60 POC Glucose 99 296 H Fasting Glucose 92 Calcium 8.4 Total Bilirubin 0.3 AST 9 ALT 8 Alkaline Phosphatase 116 Total Protein 5.8 L Albumin 3.2 L Discharge Plan Discharge Anticipated Discharge Date/Time: 10/27/23 11:36 Patient Disposition: Home, Self-Care Discharge Diagnosis: Acute gastritis Referrals: Yulisa Dyson MD [Primary Care Provider] - 1 Week Discharge Medications: New ondansetron HCl 8 mg tablet 8 mg PO Q8H PRN (Reason: nausea and vomiting) Qty: 30 3RF oxycodone 10 mg tablet 10 mg PO Q6H MDD 30 PRN (Reason: pain) Qty: 20 0RF Rx Instructions: Partial Fill upon patient request. Continued albuterol sulfate 90 mcg/actuation HFA aerosol inhaler 1 puff PO Q4H PRN (Reason: for wheezing) Qty: 8.5 2RF midodrine 5 mg tablet 5 mg PO DAILY Qty: 90 2RF omeprazole 20 mg capsule,delayed release(DR/EC) 20 mg PO BID Qty: 180 3RF metoprolol tartrate 25 mg tablet 25 mg PO BID Qty: 180 1RF insulin aspart U-100 [Novolog FlexPen U-100 Insulin] 100 unit/mL (3 mL) insulin pen 0 unit subcut DIRECTED Rx Instructions: INSULIN PUMP lorazepam 1 mg Tablet 1 mg PO TID PRN (Reason: Anxiety) lamotrigine 200 mg Tablet 200 mg PO BID zolpidem 10 mg Tablet 10 mg PO BEDTIME risperidone 2 mg tablet 2 mg PO BID Discontinued clindamycin HCl 300 mg capsule 300 mg PO TID Discharge Orders: Discharge Order (Routine); Ordered 10/27/23 Ordered By: Eliud Mahan Diet: Advance to usual diet Activity on Discharge: As tolerated Stand Alone Forms: Patient Portal Discharge page Print Language: Thai Care Plan Goals: Resume all medicines as taken prior to hospital Health Concerns: Zofran as needed for nausea. Oxycodone as needed for pain Plan of Treatment: Follow up with PCP next available Assessment: See discharge summary
--- NOTE | 2023-10-27 11:56 | MHC.CM.PN ---
Second IMM given 10/26. Per MD anticipating pt will discharge tomorrow 10/27, home self-care via self arranged transportation.
[2023-10-27] MEDS: Insulin Lispro 100 UNIT/ML 3 ML VIAL SUBCUT ×2 (12:16→20:44)
[2023-10-27 16:25] LABS: Glucose, Whole Blood 103 mg/dL (60-115)
[2023-10-27 20:18] LABS: Glucose, Whole Blood 180 mg/dL (60-115)
[2023-10-27] MEDS: Insulin Glargine,Hum.rec.anlog 100 UNIT/ML 10 ML VIAL 25 UNIT SUBCUT (20:44)
[2023-10-28] MEDS: HYDROmorphone HCl 1 MG/ML SYRINGE IVPUSH ×2 (00:46→05:24)
[2023-10-28 03:13] VITALS: BP 116/70; PULSE 87; RESP 18; TEMP 36.9; O2SAT 99
[2023-10-28] MEDS: Omeprazole 20 MG CAPSULE.DR PO (05:16)
[2023-10-28] MEDS: Metoclopramide HCl 10 MG/2 ML VIAL IVPUSH ×2 (05:17→09:24)
[2023-10-28] MEDS: KCl 40 mEq in 0.9 % Sodium Chl 40 MEQ/1,000 ML IV.SOLN 125 MEQ IVCONT (06:46)
[2023-10-28 06:49] LABS: MANUAL DIFF FLAG NO
[2023-10-28 07:01] LABS: Basophils Absolute Auto 0.1 X10*3/uL (0.0-0.2); Basophils Percent Auto 0.4 % (0-2); Eosinophils Absolute Auto 0.2 X10*3/uL (0.0-0.4); Eosinophils Percent Auto 1.8 % (0-4); Hematocrit 29.5 % (37.0-47.0); Hemoglobin 9.5 g/dl (12.0-16.0); Imm Gran Abs Auto 0.07 X10*3/uL (0.00-0.03); Imm Gran Pct Auto 0.5 % (0.0-0.4); Lymphocytes Absolute Auto 2.7 X10*3/uL (1.2-4.9); Lymphocytes Percent Auto 19.6 % (20-40); Mean Corpuscular HGB Conc 32.2 g/dl (31.0-35.0); Mean Corpuscular Hemoglobin 27.9 pg (27.0-33.0); Mean Corpuscular Volume 86.8 fL (80.0-98.0); Monocytes Absolute Auto 1.1 X10*3/uL (0.1-1.2); Monocytes Percent Auto 8.4 % (2-11); Neutrophils Absolute Auto 9.4 x10*3/uL (2.0-8.3); Neutrophils Percent Auto 69.3 % (45-73); Platelet Count 439 X10*3/uL (160-400); Red Cell Distribution Width 14.4 % (11.0-16.0); White Blood Count 13.6 X10*3/uL (4.8-10.8)
[2023-10-28 07:15] LABS: Glucose, Whole Blood 93 mg/dL (60-115)
[2023-10-28 07:23] LABS: Alanine Aminotransferase 9 U/L (0-31); Albumin Level 3.4 g/dL (3.5-5.0); Alkaline Phosphatase 121 U/L (39-117); Anion Gap 12 (12-20); Aspartate Amino Transferase 10 U/L (5-31); Bilirubin Total 0.3 mg/dL (0.0-1.0); Blood Urea Nitrogen 4 mg/dL (9-16); Calcium 8.8 mg/dL (8.4-10.2); Carbon Dioxide 25 mmol/L (22-29); Chloride 102 mmol/L (96-108); Creatinine Clr Calc Pharmacy 109.5; Estimated Glomerular Filt Rate > 60; Glucose Fasting 89 mg/dL (60-99); Potassium 4.5 mmol/L (3.3-5.1); Sodium 134 mmol/L (135-145); Total Protein 6.3 g/dL (6.5-8.0)
[2023-10-28 07:44] VITALS: BP 106/60; PULSE 86; RESP 18; TEMP 36.3; O2SAT 97
[2023-10-28] MEDS: Metoprolol Tartrate 25 MG TABLET PO (09:24)
[2023-10-28] MEDS: risperiDONE 2 MG TABLET PO (09:24)
[2023-10-28] MEDS: 0.9 % Sodium Chloride Flush 3 ML SYRINGE IVFLUSH (09:24)
[2023-10-28] MEDS: lamoTRIgine 100 MG TABLET 200 MG PO (09:24)
[2023-10-28] MEDS: Midodrine HCl 5 MG TABLET PO (09:24)
[2023-10-28] MEDS: HYDROmorphone HCl 2 MG TABLET 0.5 MG PO (09:43)
--- NOTE | 2023-10-28 11:24 | PM.DS ---
DS: Providers Provider Date of Service: 10/28/23 Date of admission: 10/18/23 19:45 Date of discharge: 10/28/23 Primary care physician: Yulisa Avila MD Consults: 10/19/23 11:09 Consult to Gastroenterology Routine Consulting Provider: Kasia Fletcher Reason for consultation: Intractable nausea and vomiting. for eval and rec. Attending physician on discharge: Helen Rosario Discharging clinician: Helen Rosario DS: Diagnosis Discharge Diagnosis (1) Intractable cyclical vomiting with nausea: Status: Acute (2) Acute hypokalemia: Status: Acute DS: Summary Hospital Course Hospital Course: 48 years old woman with past medical history significant for type 1 diabetes mellitus on insulin pump, gastroparesis, GERD and hyperlipidemia presents to the emergency department complaining of abdominal pain and multiple episodes of vomiting. She denied diarrhea, fevers and chills. Denied any acute cardiopulmonary or genitourinary symptoms. HPI was limited as the patient was in distress due to pain. Patient has been taking clindamycin for dental infection. She mentioned that her insulin pump ran out of insulin. She has a Port-A-Cath in place. She has history of multiple abdominal surgeries/procedures including appendectomy, hysterectomy, ERCP and cholecystectomy. . In the ED, she has been found with marked tachycardia and hypertension. There is no fever. Blood workup is remarkable for leukocytosis and lactic acidosis. Hemoglobin is 11.6 which is at baseline. Bicarb is 17. Renal function is adequate. There is hyperglycemia (last blood glucose is 295. Lytes bicarb 17. Anion gap is normal. Beta-hydroxybutyrate is elevated, 3.13. Electrolytes are unremarkable as well as LFTs. Troponin is negative. test is negative. Urinalysis remarkable for proteinuria, elevated glucose and small blood. There is no evidence of UTI. CXR is negative. Patient has had multiple CT scans in the past that showed no acute intra-abdominal abnormalities. ECG shows sinus tachycardia without acute ischemic changes ED tx: NS 3 L bolus, Dilaudid 1 mg IV, droperidol 0.625 mg IV, hydromorphone 0.5 mg IV, insulin R 4 mg IV, Ativan 1 mg IV, metoprolol 5 mg IV (total), Reglan 10 mg IV, Benadryl 25 mg IV and guardian 20 mg units subQ. Hospital Course: Patient was admitted for possible gastroparesis- Aggressive volume repletion and pain management , ppi given: Patient seems to be improved with supportive care. Tolerating diet, going home.Acute lactic acidosis resolved with hydration. Also as per the patient she now has insulin pump- Sugars were managed with resumption of insulin. She completed a course of Unasyn for the dental infection for which she had been taking clindamycin. It was also felt that she would have a gastritis from the clindamycin. Above management discussed with the patient detail length she understand and in agreement with the above plan, time spent 40 minute. Time Attestation Total time managing care of this patient today: 40 mintues. Discharge Coordination Time (in mins): 40 min Quality: Safe Use of Opioids Does Pt have an Active Cancer Diagnosis on the Problem List?: No Quality: Stroke Does the patient have a stroke diagnosis?: No Physical Exam Vital Signs: Vital Signs: Last Vital Signs Temp 97.3 F 10/28/23 07:44 Pulse 86 10/28/23 07:44 Resp 18 10/28/23 07:44 BP 106/60 10/28/23 07:44 Pulse Ox 97 10/28/23 07:44 O2 Del Method Room Air 10/28/23 07:44 BMI result Body Mass Index 26.6 Appearance: Alert.? Oriented X3.? cvs: rrr, [id number] , no murmur res: clear to auscultation ,no rhonchii or wheezing abd: no rebound or guarding ,nt, bs present. ext pulses present , no cyanosis . neuro: axo3 , nonfocal. DS: Data Data Completed and Pending Labs on day of discharge: Laboratory Results - last 24 hr 10/27/23 10/27/23 10/27/23 11:20 16:20 20:13 WBC RBC Hgb Hct MCV MCH MCHC RDW Plt Count MPV Immature Gran % (Auto) Neut % (Auto) Lymph % (Auto) [place] % (Auto) Eos % (Auto) Baso % (Auto) Lymph # (Auto) [place] # (Auto) Eos # (Auto) Baso # (Auto) Abs Immat Gran (auto) Absolute Neuts (auto) Absolute Nucleated RBC Nucleated RBC % (auto) Sodium Potassium Chloride Carbon Dioxide Anion Gap BUN Creatinine Estim Creat Clear Calc Estimated GFR POC Glucose 296 H 103 180 H Fasting Glucose Calcium Total Bilirubin AST ALT Alkaline Phosphatase Total Protein Albumin 10/28/23 10/28/23 06:31 07:10 WBC 13.6 H RBC 3.40 L Hgb 9.5 L Hct 29.5 L MCV 86.8 MCH 27.9 MCHC 32.2 RDW 14.4 Plt Count 439 H MPV 9.0 L Immature Gran % (Auto) 0.5 H Neut % (Auto) 69.3 Lymph % (Auto) 19.6 L [place] % (Auto) 8.4 Eos % (Auto) 1.8 Baso % (Auto) 0.4 Lymph # (Auto) 2.7 [place] # (Auto) 1.1 Eos # (Auto) 0.2 Baso # (Auto) 0.1 Abs Immat Gran (auto) 0.07 H Absolute Neuts (auto) 9.4 H Absolute Nucleated RBC 0.000 Nucleated RBC % (auto) 0.0 Sodium 134 L Potassium 4.5 Chloride 102 Carbon Dioxide 25 Anion Gap 12 BUN 4 L Creatinine 0.71 Estim Creat Clear Calc 109.5 Estimated GFR > 60 POC Glucose 93 Fasting Glucose 89 Calcium 8.8 Total Bilirubin 0.3 AST 10 ALT 9 Alkaline Phosphatase 121 H Total Protein 6.3 L Albumin 3.4 L Imaging Chest x-ray: Radiologist's impression: ITS Impressions Chest X-Ray 10/18/23 17:08 IMPRESSION: No acute abnormality of chest. Discharge Plan Discharge Anticipated Discharge Date/Time: 10/27/23 11:36 Patient Disposition: Home, Self-Care Discharge Diagnosis: Acute gastritis Referrals: Yulisa Dyson MD [Primary Care Provider] - 1 Week Discharge Medications: New ondansetron HCl 8 mg tablet 8 mg PO Q8H PRN (Reason: nausea and vomiting) Qty: 30 3RF Continued albuterol sulfate 90 mcg/actuation HFA aerosol inhaler 1 puff PO Q4H PRN (Reason: for wheezing) Qty: 8.5 2RF midodrine 5 mg tablet 5 mg PO DAILY Qty: 90 2RF omeprazole 20 mg capsule,delayed release(DR/EC) 20 mg PO BID Qty: 180 3RF metoprolol tartrate 25 mg tablet 25 mg PO BID Qty: 180 1RF insulin aspart U-100 [Novolog FlexPen U-100 Insulin] 100 unit/mL (3 mL) insulin pen 0 unit subcut DIRECTED Rx Instructions: INSULIN PUMP lorazepam 1 mg Tablet 1 mg PO TID PRN (Reason: Anxiety) lamotrigine 200 mg Tablet 200 mg PO BID zolpidem 10 mg Tablet 10 mg PO BEDTIME risperidone 2 mg tablet 2 mg PO BID Discontinued clindamycin HCl 300 mg capsule 300 mg PO TID Discharge Orders: Discharge Order (Routine); Ordered 10/28/23 Ordered By: Helen Rosario Diet: Advance to usual diet Activity on Discharge: As tolerated Stand Alone Forms: Patient Portal Discharge page Print Language: Malay Care Plan Goals: Resume all medicines as taken prior to hospital Health Concerns: Zofran as needed for nausea. Oxycodone as needed for pain Plan of Treatment: Follow up with PCP next available Assessment: See discharge summary Discharge Date/Time: 10/28/23 11:51
--- NOTE | 2023-10-28 11:27 | MHC.CM.PN ---
DP: PT HAS BEEN MEDICALLY CLEARED FOR DC HOME, SELF CARE. [facility] WILL TRANSPORT
== END 2023-10-28 11:51 | disposition home or self-care (01) | DRG 74 ==
LOC: HO.ED 18:18 → HO.EDOVER 19:54 → HO.IMC 10-19 02:38
PROVIDERS: Family Medicine; Hospitalist; Student in an Organized Health Care Education/Training Program; Admitting Provider Internal Medicine; Emergency Provider Emergency Medicine; PCP Internal Medicine; Visit Provider Internal Medicine
DX: E10.43 Type 1 diabetes mellitus with diabetic autonomic (poly)neuropathy (principal); E87.4 Mixed disorder of acid-base balance; K31.84 Gastroparesis; I10 Essential (primary) hypertension; K29.00 Acute gastritis without bleeding; E87.6 Hypokalemia; K04.7 Periapical abscess without sinus; F39 Unspecified mood [affective] disorder; R11.15 Cyclical vomiting syndrome unrelated to migraine; E86.0 Dehydration; D75.838 Other thrombocytosis; T36.8X5A Adverse effect of other systemic antibiotics, initial encounter; Z96.41 Presence of insulin pump (external) (internal); T38.3X6A Underdosing of insulin and oral hypoglycemic [antidiabetic] drugs, initial encounter; Z20.822 Contact with and (suspected) exposure to COVID-19; Z79.4 Long term (current) use of insulin; Z87.891 Personal history of nicotine dependence; Z79.899 Other long term (current) drug therapy
CPT/HCPCS: 0241U; 36415; 71045; 80048; 80053; 80076; 80307; 81001; 82010; 82550; 82803; 82947; 83036; 83605; 83690; 83735; 84100; 84484; 84702; 85025; 85027; 85610; 86140; 87040; 93005; 99285; C9113; J0295; J1170; J1200; J1642; J1790; J2060; J2405; J2765; J3480; J7120

== ENCOUNTER → 2023-10-18 13:36 | Outpatient (BNV) | payer OTHER, SELFPAY | PROVIDERS: Emergency Provider Emergency Medicine; PCP Internal Medicine; Visit Provider Internal Medicine Cardiovascular Disease | DX: R00.0 Tachycardia, unspecified (principal) | CPT/HCPCS: 93010 ==

== ENCOUNTER → 2023-10-18 19:45 | Outpatient (BNV) | payer OTHER, SELFPAY | PROVIDERS: Admitting Provider Internal Medicine; Emergency Provider Emergency Medicine; PCP Internal Medicine; Visit Provider Internal Medicine | DX: R11.15 Cyclical vomiting syndrome unrelated to migraine (principal); E87.6 Hypokalemia | CPT/HCPCS: 99223; 99232; 99233; 99239 ==

== ENCOUNTER → 2023-10-18 19:45 | Outpatient (BNV) | payer OTHER, SELFPAY | PROVIDERS: Admitting Provider Internal Medicine; Emergency Provider Emergency Medicine; PCP Internal Medicine; Visit Provider Internal Medicine | DX: E11.10 Type 2 diabetes mellitus with ketoacidosis without coma (principal); R10.9 Unspecified abdominal pain; R11.2 Nausea with vomiting, unspecified; E11.43 Type 2 diabetes mellitus with diabetic autonomic (poly)neuropathy; K31.84 Gastroparesis | CPT/HCPCS: 99222 ==

== ENCOUNTER 2023-12-15 14:34 | Emergency (ER) | payer OTHER, SELFPAY ==
--- NOTE | 2023-12-15 14:58 | ECG_ITS ---
Test Reason : TACYCARDIA Blood Pressure : / mmHG Vent. Rate : 128 BPM Atrial Rate : 128 BPM P-R Int : 130 ms QRS Dur : 080 ms QT Int : 328 ms P-R-T Axes : 050 053 019 degrees QTc Int : 478 ms Sinus tachycardia Otherwise normal ECG When compared with ECG of 18-OCT-2023 13:36, No significant change was found Referred By: Torito Christopher Electronically Signed By:UZMA TURNER MD
[2023-12-15 15:07] VITALS: BP 125/73; PULSE 120; RESP 20; TEMP 37.1; O2SAT 100; BMI 25.8
--- NOTE | 2023-12-15 15:34 | MHC.EDTECH ---
1530 unable to obtain labs, pt very hard stick
[2023-12-15 19:14] LABS: Glucose, Whole Blood 330 mg/dL (60-115)
== END 2023-12-15 20:19 | disposition left against medical advice (07) ==
LOC: HO.ED 20:08
PROVIDERS: Emergency Provider Emergency Medicine; PCP Internal Medicine
DX: R00.0 Tachycardia, unspecified (principal)
CPT/HCPCS: 82947; 93005; 99283

== ENCOUNTER → 2023-12-15 14:58 | Outpatient (BNV) | payer OTHER, SELFPAY | PROVIDERS: Emergency Provider Emergency Medicine; PCP Internal Medicine; Visit Provider Internal Medicine Cardiovascular Disease | DX: R00.0 Tachycardia, unspecified (principal) | CPT/HCPCS: 93010 ==

== ENCOUNTER 2023-12-27 11:36 | Outpatient (AMB) | payer OTHER, SELFPAY ==
--- NOTE | 2023-12-27 11:38 | MHC.OFFWIV ---
Intake Vital Signs 12/27/23 11:39 Height 5 ft 6 in Weight 173 lb BMI 27.9 BP 116/68 Blood Pressure Location Lt brachial Position Sitting Pulse 102 H Pulse Source Pulse Oximeter Temp 97.4 F Temp Source Temporal Artery Scan Pulse Oximetry (%) 98 Oxygen Delivery Method Room Air Intake Visit Reasons: EP ?UTI Intake Note: pt is here today for UTI started 1 week ago Patient Tobacco Use Status: Former Tobacco user Allergies morphine [MORPHINE] Allergy (Intermediate, Verified 12/27/23 11:52) RASH, hives, hives mushroom Allergy (Intermediate, Verified 12/27/23 11:52) HIVES/RASH mushroom Allergy (Unknown, Uncoded 12/27/23 11:52) throat closes up/difficult breathing mushrooms Allergy (Unknown, Uncoded 12/27/23 11:52) anaphylaxis Do you need a note to return to daycare/school/sports/work: No HPI HPI Comments History of Present Illness Details This is a 48-year-old female who presented to the walk-in clinic complaining of urinary symptoms times 2 days. Patient states she has been having increased urinary frequency/urgency with decreased urine volume as well as dysuria and suprapubic discomfort that began today. She denies any fever/chills. She denies any flank/back pain. She denies any hematuria. She reports some mild nausea but denies vomiting. [facility] Medical History Diabetic gastroparesis Herpes zoster Status post fall Recurrent UTI NSTEMI (non-ST elevated myocardial infarction) Diabetic gastroparesis Anxiety Bipolar 1 disorder Pancreatitis Gastroparesis Diabetes Surgical History History of cholecystectomy History of tonsillectomy History of ERCP H/O pyloroplasty History of appendectomy H/O: hysterectomy Social History Household Members: Spouse Housing: House Do you presently have visiting nurse or other home services: No Unable to assess alcohol history related to: Unknown Alcohol intake: never Comment: pt refused bed alarm Patient Tobacco Use Status: Former Tobacco user Tobacco use type: Cigarette e-Cigarette/Vaping Use: Never Used Second Hand Smoke Exposure: No Substance Use Type: Marijuana Advance Directives Date on File: 12/03/22 service: No Current occupational status: disabled Cognitive needs: No Hearing needs: No Vision needs: No Review of Systems Const All systems reviewed & are unremarkable except as noted in HPI and below Reports no additional complaints Eyes Reports no additional complaints ENT Reports no additional complaints Card Reports no additional complaints Resp Reports no additional complaints GI Reports no additional complaints Reports no additional complaints Musc Reports no additional complaints Skin/Breast Reports system reviewed and no additional complaints, except as documented Neuro Reports no additional complaints Psych Reports no additional complaints Endo Reports no additional complaints Antonio/Lymph Reports no additional complaints Aller/Immun Reports no additional complaints Physical Exam Vital Signs: BMI result Body Mass Index 27.9 Const Other: Vital signs reviewed. Constitutional: Non-toxic appearing. No acute distress. Well-developed and well-nourished. HEENT: Normocephalic and atraumatic. EOMI. Skin: Warm and dry. No rashes or lesions noted. Neck: Full and painless range of motion. Cardio: Regular rate and rhythm. No murmurs, gallops, or rubs. No lower extremity edema. No JVD. Pulmonary: No respiratory distress. No accessory muscle usage. Clear to auscultation bilaterally without wheezing, crackles, or rhonchi. Gastrointestinal: Mild suprapubic tenderness to palpation but otherwise soft and nondistended. Normoactive bowel sounds in all 4 quadrants. Genitourinary: No CVA tenderness. Musculoskeletal: Normal range of motion in joints throughout the body. No deformity or other signs of injury. Neuro: Alert and oriented x4. Cranial nerves 2-12 grossly intact. No focal deficits appreciated. Psych: Normal mood and affect. Results AMB Urinalysis, Automated UA Leukoctes 500 Gabriela/uL Last Edit by Marin Edouard CMA on 12/27/23 11:54 UA Nitrite Negative Last Edit by Marin Edouard CMA on 12/27/23 11:54 UA Urobilinogen 0.2 mg/dL Last Edit by Marin Edouard CMA on 12/27/23 11:54 UA Protein 30 mg/dL Last Edit by Marin Edouard CMA on 12/27/23 11:54 UA pH 6.0 Last Edit by Marin Edouard CMA on 12/27/23 11:54 UA Blood 200 [place]ore[place]io/uL Last Edit by Marin Edouard CMA on 12/27/23 11:54 UA Specific [place] 1.005 Last Edit by Marin Edouard CMA on 12/27/23 11:54 UA Ketone Negative Last Edit by Marin Edouard CMA on 12/27/23 11:54 UA Bilirubin 0 mg/dL Last Edit by Marin Edouard CMA on 12/27/23 11:54 UA Glucose 0 mg/dL Last Edit by Marin Edouard CMA on 12/27/23 11:54 Assessment & Plan Assessment & Plan (1) Urinary tract infection: Code(s): N39.0 - Urinary tract infection, site not specified Qualifiers: Urinary tract infection type: acute cystitis Hematuria presence: without hematuria Qualified Code(s): N30.00 - Acute cystitis without hematuria Plan: This is a 48-year-old female who presented to the office complaining of urinary symptoms including urinary frequency/urgency, decreased urine volume, and dysuria/suprapubic discomfort. POCT urinalysis consistent with a urinary tract infection; however, specimen was not a clean catch but paten unable to urinate again. Patient's vital signs are stable with the exception tachycardia 102 beats per minute although her heart rate has improved on auscultation, physical exam is benign, and patient is overall nontoxic appearing. No CVA tenderness or systemic symptoms to suggest acute pyelonephritis. History and physical most consistent with an acute uncomplicated cystitis. Recommended symptomatic management including increased fluids and tylenol as needed for pain as long as patient has no medical contraindications. Patient was advised to proceed directly to the emergency room if she were to develop fever/chills, nausea/vomiting, flank/back pain, or worsening/persistent symptoms. Patient has been hospitalized in the past for sepsis for a urinary tract infection so I told the patient and her to have very low threshold for going to the emergency room. Patient and her verbalized understanding and they are in agreement with the plan. Orders: Orders AMB Urinalysis Automated Today Z13.9 - Encounter for screening, unspecified Medications: New sulfamethoxazole-trimethoprim 800-160 mg 1 tab PO BID 10 tabs 0RF Coding Level of Care Code Est Pt Level 3 (39050) Diagnoses Acute cystitis without hematuria N30.00 Urinary tract infection type: acute cystitis Hematuria presence: without hematuria
[2023-12-27 11:39] VITALS: BP 116/68; PULSE 102; TEMP 36.3; O2SAT 98; BMI 27.9
== END 2023-12-27 12:00 | disposition home or self-care (01) ==
PROVIDERS: PCP Internal Medicine; Visit Provider Physician Assistant Medical
DX: N30.00 Acute cystitis without hematuria (principal)
CPT/HCPCS: 81003; 99213

== ENCOUNTER 2024-02-14 02:23 | Inpatient (IN) | payer OTHER, SELFPAY ==
[2024-02-14] VITALS (20 sets, daily range): BP systolic 119–180; BP diastolic 65–104; PULSE 100–142; RESP 12–39; TEMP 36.7–37.1; O2SAT 95–100; BMI 28.2
--- NOTE | ~2024-02-14 | XR_ITS ---
EXAMINATION: XR CHEST CLINICAL INFORMATION: Weakness COMPARISON: 06/01/2020 TECHNIQUE: Frontal view of the chest was obtained. FINDINGS: Right IJ port catheter tip lies in the region of the distal SVC. The lungs are clear with no focal consolidation. No evidence of pneumothorax, pulmonary edema, or pleural effusions. The cardiomediastinal silhouette is unremarkable. No acute osseous findings. XR/XR chest 1V IMPRESSION: No acute cardiopulmonary findings.
--- NOTE | ~2024-02-14 | CT_ITS ---
EXAMINATION: CT ABDOMEN AND PELVIS WITHOUT CONTRAST CLINICAL INFORMATION: Lower abdominal pain. COMPARISON: 06/18/2023 TECHNIQUE: Multidetector volumetric imaging was performed from the superior aspect of the liver through the pubic symphysis. Sagittal and coronal reformatted images were obtained on the technologist's workstation. This CT examination was performed using dose optimization techniques as appropriate, variously including the following: *Automated exposure control *Adjustment of mA and/or kV according to patient size (this includes techniques or standardized protocols for targeted exams where dose is matched to indication/reason for exam; i.e. extremities or head) *Use of iterative reconstruction technique DLP: 598 mGy-cm FINDINGS: LUNG BASES: The visualized lung bases are unremarkable. LIVER, GALLBLADDER, AND BILIARY TREE: Relative hypoattenuation of the hepatic parenchyma is consistent with steatosis. Liver is normal in size and contour. No focal hepatic lesions are identified. No biliary ductal dilatation. Status post cholecystectomy. PANCREAS: Pancreas is atrophic. No appreciable ductal dilatation. SPLEEN: Unremarkable. ADRENAL GLANDS: Unremarkable. KIDNEYS AND URETERS: The kidneys are normal in size, shape, and attenuation. Mild bilateral perinephric stranding. Mild bilateral hydroureteronephrosis. There are multiple small nonobstructing bilateral renal calculi measuring up to 3 mm in diameter at the left interpolar region and 2 mm in diameter in the right lower renal pole. No obstructing calculi are identified. No ureterolithiasis. BLADDER: Distended. No wall thickening. No bladder calculi. GASTROINTESTINAL TRACT: Stomach, small bowel, and colon are normal in caliber. No bowel wall thickening or surrounding inflammatory changes. Appendix is not seen, though there are no findings of acute appendicitis.. No intraperitoneal free fluid or free air. ABDOMINAL WALL: No significant hernia is appreciated. LYMPH NODES: Normal. VASCULAR: Atherosclerotic calcifications are present in the abdominal aorta, renal arteries, and SMA. No aneurysmal dilatation. PELVIC VISCERA: Uterus appears surgically absent. No adnexal lesions. OSSEOUS STRUCTURES: Unremarkable. CT/CT abdomen pelvis wo IV con IMPRESSION: 1. Mild bilateral hydroureteronephrosis and perinephric stranding. In the absence of obstructing calculi or other sources of ureteral obstruction, this is likely related to the distended urinary bladder.. Multiple small nonobstructing bilateral renal calculi. 2. Hepatic steatosis. Fleischner guidelines were followed.
--- NOTE | 2024-02-14 02:28 | ECG_ITS ---
Test Reason : TACHYCARDIA Blood Pressure : / mmHG Vent. Rate : 141 BPM Atrial Rate : 000 BPM P-R Int : 000 ms QRS Dur : 078 ms QT Int : 356 ms P-R-T Axes : 000 046 028 degrees QTc Int : 545 ms Supraventricular tachycardia Low voltage QRS Borderline ECG When compared with ECG of 15-DEC-2023 14:59, No significant change was found Referred By: Blanca Ayala Electronically Signed By:Cory Emanuel
--- NOTE | 2024-02-14 02:40 | ED_ITS ---
HPI - Abdominal Pain General Chief Complaint: General Medical Stated Complaint: DIABETIC EMERGENCY Time Seen by Provider: 02/14/24 02:28 Source: patient and old records reviewed Mode of arrival: EMS Limitations: no limitations History of Present Illness ED Provider: SUJIT ALBA narrative: 48 yo female with PMH of pancreatitis, type 1 DM who's insulin pump was dislodged today, recurrent UTI, NSTEMI, anxiety, diabetic gastroparesis here with c/o lower abdominal pain all day and n/v unable to keep anything down. Her insulin pump also dislodged during EMS transfer. called 911 because she was lethargic. Patient states she is on antibiotic for UTI doesn't know name or duration. She denies diarrhea. No fevers reported. She has increased urinary frequency and dysuria MD elicited complaint: abdominal pain Pertinent past history: none Onset (ago): day(s) (1) Pain Consistency: constant Location: suprapubic Severity: severe Quality: aching Radiation: none Migration to: no migration Exacerbating factors: movement Relieving factors: nothing Context: history of similar episodes Associated symptoms: nausea, vomiting and dysuria Treatments prior to arrival: other Related Data Home Medications ?Medication ?Instructions ?Recorded ?Confirmed lamotrigine 200 mg tablet 200 mg PO BID 05/11/20 10/18/23 lorazepam 1 mg tablet 1 mg PO TID PRN Anxiety 05/11/20 10/18/23 zolpidem 10 mg tablet 10 mg PO BEDTIME 05/11/20 10/18/23 insulin aspart U-100 100 unit/mL 0 unit subcut DIRECTED 06/01/20 10/18/23 (3 mL) subcutaneous pen (Novolog FlexPen U-100 Insulin aspart) risperidone 2 mg tablet 2 mg PO BID 09/13/21 10/18/23 Previous Rx's ?Medication ?Instructions ?Recorded albuterol sulfate 90 mcg/actuation 1 puff PO Q4H PRN for wheezing 12/10/22 aerosol inhaler #8.5 grams midodrine 5 mg tablet 5 mg PO DAILY #90 tabs 06/30/23 metoprolol tartrate 25 mg tablet 25 mg PO BID #180 tabs 10/14/23 ondansetron HCl 8 mg tablet 8 mg PO Q8H PRN nausea and 10/27/23 vomiting #30 tabs cefuroxime axetil 500 mg tablet 500 mg PO Q12H #10 tabs 12/27/23 nitrofurantoin macrocrystal 100 mg 100 mg PO BID 5 days #10 caps 02/12/24 capsule Allergies Allergy/AdvReac Type Severity Reaction Status Date / Time morphine [MORPHINE] Allergy Intermediate RASH, Verified 02/14/24 02:37 hives, hives mushroom Allergy Intermediate HIVES/RASH Verified 02/14/24 02:37 Sulfa (Sulfonamide Allergy Mild Rash Verified 02/14/24 02:37 Antibiotics) mushroom Allergy Unknown throat Uncoded 02/14/24 02:37 closes up/difficult breathing mushrooms Allergy Unknown anaphylaxis Uncoded 02/14/24 02:37 Review of Systems Review of Systems Constitutional : No Weight loss, No Fever, No Chills ENT/Mouth : No sore throat, No Rhinorrhea Eyes: No Swelling, No Redness Cardiovascular : No Chest Pain, No SOB, NoEdema Respiratory : No Cough, No Sputum, No Wheezing Gastrointestinal : Positive Nausea, Positive Vomiting, no Diarrhea, positive abdominal Pain, No Hematochezia, No Melena Genitourinary : pos Dysuria, pos Urinary Frequency, No Hematuria, No Urgency Musculoskeletal : No joint pain, No Myalgias, No Joint Swelling Skin : No Skin Lesions, No rash Neuro : No Weakness, No Numbness, No Dizziness, No Headache Psych : No Anxiety/Panic, No Depression All other systems reviewed and are negative. [facility] Past Medical History Attestation statement: The following information was validated with the patient. Source: old records reviewed Medical History Chronic hypertension Intractable cyclical vomiting with nausea Diabetes mellitus with gastroparesis Diabetic gastroparesis Herpes zoster Status post fall Recurrent UTI NSTEMI (non-ST elevated myocardial infarction) Diabetic gastroparesis Anxiety Bipolar 1 disorder Pancreatitis Gastroparesis Diabetes Surgical History History of cholecystectomy History of tonsillectomy History of ERCP H/O pyloroplasty History of appendectomy H/O: hysterectomy Social History Social History Household Members: Spouse Housing: House Do you presently have visiting nurse or other home services: No Unable to assess alcohol history related to: Unknown Alcohol intake: never Comment: pt refused bed alarm Patient Tobacco Use Status: Former Tobacco user Tobacco use type: Cigarette Smoked in Last 30 Days: No e-Cigarette/Vaping Use: Never Used Second Hand Smoke Exposure: No Use of substances other than those prescribed or required for medical reasons: No Substance Use Type: Marijuana Advance Directives: Yes Advance Directives on File: Yes Advance Directives Date on File: 12/03/22 Do you have a plan to hurt others: No Plan Patient : No service: No Current occupational status: disabled Cognitive needs: No Hearing needs: No Vision needs: No Physical Exam ED Vital Signs: Vital Signs - 24 hr 02/14/24 02:32 02/14/24 04:27 02/14/24 05:38 Temperature 98.2 F 98.5 F 98.4 F Pulse Rate 140 H 127 H 117 H Respiratory Rate 39 H 17 12 Blood Pressure 178/74 H 180/95 H 150/73 H Pulse Oximetry 100 100 96 Oxygen Delivery Method Room Air Room Air Room Air 02/14/24 06:07 02/14/24 06:08 Temperature 98.4 F 98.4 F Pulse Rate 116 H 117 H Respiratory Rate 14 14 Blood Pressure 151/74 H 148/74 H Pulse Oximetry 95 95 Oxygen Delivery Method Room Air Room Air BMI result Body Mass Index 28.2 Appearance: Alert. Oriented X3. Mild acute distress. Eyes: Pupils equal, round and reactive to light. ENT: Pharynx dry MM Neck: Normal inspection. Neck supple. CVS: tachycardic heart rate and rhythm. Pulses normal. Respiratory: No respiratory distress. Breath sounds normal. Abdomen: Soft and moderate lower abdominal pain no rebound Skin: Skin warm and dry. pale skin color. Normal skin turgor. Extremities: No lower extremity edema. Neuro: Oriented X 3. No motor deficit. No sensory deficit. Course Course Course Narrative: will place robles given CT scan she is retaining has about 500 even after urinating Medical Decision Making Medical Decision Making MDM Narrative: 48 yo female with PMH of pancreatitis, type 1 DM who's insulin pump was dislodged today, recurrent UTI, NSTEMI, anxiety, diabetic gastroparesis here with c/o lower abdominal pain vomiting all day unable to keep anything down - pump dislodged during EMS transport at this time basic labs, IVF x 2L, CXR, UA, CT scan for renal colic, pyelo, IV dilaudid for pain. Likely tachycardia due to dehydration and lack of metoprolol. Planned admit Differential Diagnosis Differential Diagnoses: The differential diagnosis associated with the presentation includes acute uti, dehydration, poor PO intake, anemia, pyelo Admission/Observation Consideration of admission/observation: Escalation of care including admission/observation considered admit for further work up and management of n/v and pain Consult Healthcare Provider Management of the patient was discussed with: Hospitalist Lab Data MDM Lab Attestation statement: I reviewed the patient's lab results. 02/14/24 03:20 02/14/24 03:20 Labs: Lab Results 02/14/24 02/14/24 02/14/24 Range/Units 02:28 03:19 03:20 WBC 15.3 H (4.8-10.8) X10*3/uL RBC 4.18 L D (4.20-5.50) X10*6/uL Hgb 11.7 L D (12.0-16.0) g/dl Hct 34.0 L (37.0-47.0) % MCV 81.3 (80.0-98.0) fL MCH 28.0 (27.0-33.0) pg MCHC 34.4 (31.0-35.0) g/dl RDW 15.1 (11.0-16.0) % Plt Count 560 H D (160-400) X10*3/uL MPV 8.7 L (9.4-12.3) fL Immature Gran % (Auto) 0.4 (0.0-0.4) % Neut % (Auto) 88.1 H (45-73) % Lymph % (Auto) 9.3 L (20-40) % Armstrong % (Auto) 1.8 L (2-11) % Eos % (Auto) 0.0 (0-4) % Baso % (Auto) 0.4 (0-2) % Lymph # (Auto) 1.4 (1.2-4.9) X10*3/uL Armstrong # (Auto) 0.3 (0.1-1.2) X10*3/uL Eos # (Auto) 0.0 (0.0-0.4) X10*3/uL Baso # (Auto) 0.1 (0.0-0.2) X10*3/uL Abs Immat Gran (auto) 0.06 H (0.00-0.03) X10*3/uL Absolute Neuts (auto) 13.4 H (2.0-8.3) x10*3/uL Absolute Nucleated RBC 0.000 (0.0-0.012) X10*3/uL Nucleated RBC % (auto) 0.0 (0.0-0.2) /100WBC VBG pH (7.32-7.43) VBG pCO2 mmHg VBG pO2 mmHg VBG HCO3 (22-26) mmol/L VBG O2 Saturation % VBG Base Excess mmol/L Sodium 137 (135-145) mmol/L Potassium 3.6 (3.3-5.1) mmol/L Chloride 100 (96-108) mmol/L Carbon Dioxide 20 L (22-29) mmol/L Anion Gap 21 H (12-20) BUN 12 (9-16) mg/dL Creatinine 1.03 (0.5-1.4) mg/dL Estim Creat Clear Calc 67.7 Estimated GFR 57 POC Glucose 260 H (60-115) mg/dL Random Glucose 319 H (60-115) mg/dL Lactic Acid 3.5 H* (0.5-2.0) mmol/L Lactic Acid F/U @ 2Hr (0.5-2.0) mmol/L Calcium 10.1 D (8.4-10.2) mg/dL Magnesium 1.5 L (1.6-2.6) mg/dL Total Bilirubin 0.3 (0.0-1.0) mg/dL Direct Bilirubin 0.1 (0.0-0.5) mg/dL AST 11 (5-31) U/L ALT 11 (0-31) U/L Alkaline Phosphatase 156 H (39-117) U/L Ammonia 21 (13-55) umol/L Troponin I High Sens < 2.7 (<3.5-17.0) ng/L B-Natriuretic Peptide 10 (<100) pg/mL Total Protein 8.3 H (6.5-8.0) g/dL Albumin 4.6 (3.5-5.0) g/dL Lipase 5 L (8-78) U/L TSH 0.58 (0.32-4.0) uIU/mL Urine Color Urine Appearance Urine pH (5.0-9.0) Ur Specific [place] (1.005-1.025) Urine Protein (Neg-Trace) mg/dL Urine Glucose (UA) (Negative) mg/dL Urine Ketones (Negative) mg/dL Urine Blood (Negative) Urine Nitrite (Negative) Ur Leukocyte Esterase (Negative) Urine RBC (0-2) /HPF Urine WBC (0-5) /HPF Ur Squamous Epith Cells (0-2) /HPF Urine Bacteria (None Seen) Hyaline Casts (0-2) /LPF Influenza Type A (PCR) NEGATIVE (Negative) Influenza Type B (PCR) NEGATIVE (Negative) RSV RNA Qual (PCR) NEGATIVE (Negative) SARS-CoV-2 RNA (RT-PCR) NEGATIVE (Negative) 02/14/24 02/14/24 02/14/24 Range/Units 03:22 04:29 05:41 WBC (4.8-10.8) X10*3/uL RBC (4.20-5.50) X10*6/uL Hgb (12.0-16.0) g/dl Hct (37.0-47.0) % MCV (80.0-98.0) fL MCH (27.0-33.0) pg MCHC (31.0-35.0) g/dl RDW (11.0-16.0) % Plt Count (160-400) X10*3/uL MPV (9.4-12.3) fL Immature Gran % (Auto) (0.0-0.4) % Neut % (Auto) (45-73) % Lymph % (Auto) (20-40) % Armstrong % (Auto) (2-11) % Eos % (Auto) (0-4) % Baso % (Auto) (0-2) % Lymph # (Auto) (1.2-4.9) X10*3/uL [place] # (Auto) (0.1-1.2) X10*3/uL Eos # (Auto) (0.0-0.4) X10*3/uL Baso # (Auto) (0.0-0.2) X10*3/uL Abs Immat Gran (auto) (0.00-0.03) X10*3/uL Absolute Neuts (auto) (2.0-8.3) x10*3/uL Absolute Nucleated RBC (0.0-0.012) X10*3/uL Nucleated RBC % (auto) (0.0-0.2) /100WBC VBG pH 7.55 H (7.32-7.43) VBG pCO2 23 mmHg VBG pO2 58 mmHg VBG HCO3 20 L (22-26) mmol/L VBG O2 Saturation 87.0 % VBG Base Excess 0.2 mmol/L Sodium (135-145) mmol/L Potassium (3.3-5.1) mmol/L Chloride (96-108) mmol/L Carbon Dioxide (22-29) mmol/L Anion Gap (12-20) BUN (9-16) mg/dL Creatinine (0.5-1.4) mg/dL Estim Creat Clear Calc Estimated GFR POC Glucose (60-115) mg/dL Random Glucose (60-115) mg/dL Lactic Acid (0.5-2.0) mmol/L Lactic Acid F/U @ 2Hr 3.6 H* (0.5-2.0) mmol/L Calcium (8.4-10.2) mg/dL Magnesium (1.6-2.6) mg/dL Total Bilirubin (0.0-1.0) mg/dL Direct Bilirubin (0.0-0.5) mg/dL AST (5-31) U/L ALT (0-31) U/L Alkaline Phosphatase (39-117) U/L Ammonia (13-55) umol/L Troponin I High Sens (<3.5-17.0) ng/L B-Natriuretic Peptide (<100) pg/mL Total Protein (6.5-8.0) g/dL Albumin (3.5-5.0) g/dL Lipase (8-78) U/L TSH (0.32-4.0) uIU/mL Urine Color Yellow Urine Appearance Clear Urine pH 6.5 (5.0-9.0) Ur Specific [place] 1.015 (1.005-1.025) Urine Protein 100 (2+) H (Neg-Trace) mg/dL Urine Glucose (UA) >=1000 H (Negative) mg/dL Urine Ketones 80 (Negative) mg/dL Urine Blood Small (1+) H (Negative) Urine Nitrite Negative (Negative) Ur Leukocyte Esterase Small (1+) H (Negative) Urine RBC 6-10 H (0-2) /HPF Urine WBC 21-50 H (0-5) /HPF Ur Squamous Epith Cells 3-5 (0-2) /HPF Urine Bacteria Trace (None Seen) Hyaline Casts 0-2 (0-2) /LPF Influenza Type A (PCR) (Negative) Influenza Type B (PCR) (Negative) RSV RNA Qual (PCR) (Negative) SARS-CoV-2 RNA (RT-PCR) (Negative) Independent Interpretation I performed an independent interpretation of an: EKG, Plain X-Ray (normal) and CT Scan (retention) Interpretation: Rate: 141 Rhythm: sinus tachycardia [place]: normal Normal P waves. Normal GRICELDA. Normal QRS complex. ST T wave : no LUZ, inverted t wave V1 qTC: 545 prior studies: no acute ischemia The study has been interpreted contemporaneously by me. . Independent Historian Clinical information obtained from an independent historian. History obtained from or confirmed by: EMS External Record Review External record reviewed: Inpatient record Medications Administered Discontinued Medications Generic Name Dose Route Start Last Admin Trade Name Freq PRN Reason Stop Dose Admin Hydromorphone HCl 1 mg 02/14/24 02:38 02/14/24 03:18 Hydromorphone Hcl 1 Mg/Ml Syringe IVPUSH 02/14/24 02:39 1 mg ONCE ONE Administration Protocol Hydromorphone HCl 1 mg 02/14/24 04:55 02/14/24 05:08 Hydromorphone Hcl 1 Mg/Ml Syringe IVPUSH 02/14/24 04:56 1 mg ONCE ONE Administration Protocol Lactated Ringer's 1,000 mls @ 999 mls/hr 02/14/24 02:28 02/14/24 05:40 Lr IV 02/14/24 03:28 Infused .Q1H1M ONE Infusion Ceftriaxone Sodium 1 gm/ 50 mls @ 100 mls/hr 02/14/24 02:54 02/14/24 03:52 Sodium Chloride IV 02/14/24 03:23 Infused ONCE ONE Infusion Lactated Ringer's 1,000 mls @ 999 mls/hr 02/14/24 02:54 02/14/24 05:41 Lr IV 02/14/24 03:54 Infused .Q1H1M ONE Infusion Magnesium Sulfate 2 gm in 50 mls @ 25 mls/hr 02/14/24 03:10 02/14/24 05:41 Magnesium Sulfate/H2o IV 02/14/24 05:09 Infused ONCE ONE Infusion Insulin Human Regular 5 unit 02/14/24 04:28 02/14/24 04:45 Insulin Regular, Human 100 Unit/Ml 10 Ml Vial IVPUSH 02/14/24 04:29 5 unit ONCE ONE Administration Metoprolol Tartrate 2.5 mg 02/14/24 04:37 02/14/24 04:44 Metoprolol Tartrate 5 Mg/5 Ml Vial IVPUSH 02/14/24 04:38 2.5 mg ONCE ONE Administration Protocol Ondansetron HCl 4 mg 02/14/24 02:38 02/14/24 03:18 Ondansetron Hcl 4 Mg/2 Ml Vial IVPUSH 02/14/24 02:39 4 mg ONCE ONE Administration Prochlorperazine Edisylate 5 mg 02/14/24 04:55 02/14/24 05:07 Prochlorperazine Edisylate 10 Mg/2 Ml Vial IVPUSH 02/14/24 04:56 5 mg ONCE ONE Administration Critical Care Time Critical Care Time Critical Care Time: Yes Total Critical Care Time: 60 Attestation: IVF, insulin, repeat IV dilaudid for pain with improvement, review of records, admission, IV lopressor for HTN I attest to this time spent taking care of the patient Discharge Plan Discharge Clinical Impression: Nausea & vomiting, Acute UTI, Acidosis, lactic, Diabetic gastroparesis, Hypomagnesemia, Acute urinary retention Patient Disposition: Admitted As Inpatient Prescriptions: No Action albuterol sulfate 90 mcg/actuation HFA aerosol inhaler 1 puff PO Q4H PRN (Reason: for wheezing) Qty: 8.5 2RF midodrine 5 mg tablet 5 mg PO DAILY Qty: 90 2RF metoprolol tartrate 25 mg tablet 25 mg PO BID Qty: 180 1RF nitrofurantoin macrocrystal 100 mg capsule 100 mg PO BID 5 Days Qty: 10 0RF Rx Instructions: must administer with a meal/food insulin aspart U-100 [Novolog FlexPen U-100 Insulin] 100 unit/mL (3 mL) insulin pen 0 unit subcut DIRECTED Rx Instructions: INSULIN PUMP lorazepam 1 mg Tablet 1 mg PO TID PRN (Reason: Anxiety) lamotrigine 200 mg Tablet 200 mg PO BID zolpidem 10 mg Tablet 10 mg PO BEDTIME risperidone 2 mg tablet 2 mg PO BID ondansetron HCl 8 mg tablet 8 mg PO Q8H PRN (Reason: nausea and vomiting) Qty: 30 3RF cefuroxime axetil 500 mg tablet 500 mg PO Q12H Qty: 10 0RF Print Language: Estonian
[2024-02-14 02:51] LABS: Glucose, Whole Blood 260 mg/dL (60-115)
[2024-02-14] MEDS: ondansetron HCL 4 MG/2 ML VIAL IVPUSH ×3 (03:18→12:47)
[2024-02-14] MEDS: HYDROmorphone HCl 1 MG/ML SYRINGE IVPUSH ×5 (03:18→20:46)
[2024-02-14 03:26] LABS: MANUAL DIFF FLAG NO
[2024-02-14 03:27] LABS: Venous Blood Gas Refer to POC result
[2024-02-14] MEDS: Lactated Ringers 1,000 ML 999 ML IV ×2 (03:27→03:28)
[2024-02-14 03:28] LABS: Basophils Absolute Auto 0.1 X10*3/uL (0.0-0.2); Basophils Percent Auto 0.4 % (0-2); Hemoglobin 11.7 g/dl (12.0-16.0); Imm Gran Abs Auto 0.06 X10*3/uL (0.00-0.03); Imm Gran Pct Auto 0.4 % (0.0-0.4); Lymphocytes Absolute Auto 1.4 X10*3/uL (1.2-4.9); Lymphocytes Percent Auto 9.3 % (20-40); Mean Corpuscular HGB Conc 34.4 g/dl (31.0-35.0); Mean Corpuscular Volume 81.3 fL (80.0-98.0); Mean Platelet Volume 8.7 fL (9.4-12.3); Monocytes Absolute Auto 0.3 X10*3/uL (0.1-1.2); Monocytes Percent Auto 1.8 % (2-11); Neutrophils Absolute Auto 13.4 x10*3/uL (2.0-8.3); Neutrophils Percent Auto 88.1 % (45-73); Platelet Count 560 X10*3/uL (160-400); Red Blood Count 4.18 X10*6/uL (4.20-5.50); Red Cell Distribution Width 15.1 % (11.0-16.0); White Blood Count 15.3 X10*3/uL (4.8-10.8)
[2024-02-14] MEDS: cefTRIAXone sodium 1 GM in 0.9 % Sodium Chloride 50 ML IV (03:31)
[2024-02-14] MEDS: Magnesium Sulfate/H2O 2 GM/50 ML PIGGYBACK IV (03:31)
[2024-02-14 03:33] LABS: VBG Base Excess 0.2 mmol/L; VBG HCO3 20 mmol/L (22-26); VBG pCO2 23 mmHg; VBG pH 7.55 (7.32-7.43); VBG pO2 58 mmHg
[2024-02-14 03:33] LABS: Ammonia 21 umol/L (13-55)
[2024-02-14 03:45] LABS: Lactic Acid 3.5 mmol/L (0.5-2.0)
[2024-02-14 03:47] LABS: B Type Natriuretic Peptide 10 pg/mL (<100)
[2024-02-14 03:49] LABS: Alanine Aminotransferase 11 U/L (0-31); Albumin Level 4.6 g/dL (3.5-5.0); Alkaline Phosphatase 156 U/L (39-117); Anion Gap 21 (12-20); Aspartate Amino Transferase 11 U/L (5-31); Bilirubin Direct 0.1 mg/dL (0.0-0.5); Bilirubin Total 0.3 mg/dL (0.0-1.0); Blood Urea Nitrogen 12 mg/dL (9-16); Calcium 10.1 mg/dL (8.4-10.2); Carbon Dioxide 20 mmol/L (22-29); Chloride 100 mmol/L (96-108); Creatinine Clr Calc Pharmacy 67.7; Estimated Glomerular Filt Rate 57; Glucose Random 319 mg/dL (60-115); Lipase 5 U/L (8-78); Magnesium 1.5 mg/dL (1.6-2.6); Potassium 3.6 mmol/L (3.3-5.1); Sodium 137 mmol/L (135-145); Total Protein 8.3 g/dL (6.5-8.0); Troponin-I High Sensitivity < 2.7 ng/L (<3.5-17.0)
[2024-02-14 04:04] LABS: Influenza A PCR NEGATIVE (Negative); Influenza B PCR NEGATIVE (Negative); Resp Syncy Virus RNA Qual PCR NEGATIVE (Negative); SARS COV2 PCR INHOUSE NEGATIVE (Negative)
[2024-02-14 04:11] LABS: TSH reflex Free T4 0.58 uIU/mL (0.32-4.0)
[2024-02-14 04:41] LABS: Appearance Urine Clear; Color Urine Yellow; Glucose Urine UA >=1000 mg/dL (Negative); Leukocyte Esterase Urine Small (1+) (Negative); Nitrite Urine Negative (Negative); PH 6.5 (5.0-9.0); Specific Gravity - Urine 1.015 (1.005-1.025); UMIC TRIGGER UACC YES; Urine Blood Small (1+) (Negative); Urine Ketones 80 mg/dL (Negative); Urine Protein 100 (2+) mg/dL (Neg-Trace)
[2024-02-14] MEDS: Metoprolol Tartrate 5 MG/5 ML VIAL 2.5 MG IVPUSH (04:44)
[2024-02-14] MEDS: Insulin Regular, Human 100 UNIT/ML 10 ML VIAL IVPUSH (04:45)
[2024-02-14 04:46] LABS: Bacteria Urine Trace (None Seen); Hyaline Casts Urine 0-2 /LPF (0-2); UACC Culture Trigger YES; WBC Urine 21-50 /HPF (0-5)
[2024-02-14] MEDS: Prochlorperazine Edisylate 10 MG/2 ML VIAL 5 MG IVPUSH (05:07)
[2024-02-14 05:25] LABS: Reflex Lactate? Lactic Acid Added
[2024-02-14 07:47] LABS: Glucose, Whole Blood 429 mg/dL (60-115)
[2024-02-14 07:57] LABS: Reflex Lactate? 2 Y
[2024-02-14] MEDS: Insulin Regular, Human 100 UNIT/ML 10 ML VIAL 10 UNIT IVPUSH (08:34)
--- NOTE | 2024-02-14 08:40 | PHA.MEDREC ---
Pharmacy Consult ? Medication Reconciliation Pharmacy has completed the medication reconciliation. Spoke with patient. Patient uses a Tandem insulin pump with Novolog insulin
[2024-02-14 09:42] LABS: ~Lactic Acid-LAB USE ONLY 3.6 mmol/L (0.5-2.0)
[2024-02-14 10:20] LABS: Glucose, Whole Blood 369 mg/dL (60-115)
[2024-02-14] MEDS: Enoxaparin Sodium 40 MG/0.4 ML SYRINGE SUBCUT (11:15)
[2024-02-14] MEDS: 0.9 % Sodium Chloride 1,000 ML 100 ML IVCONT ×2 (11:17→20:49)
[2024-02-14 11:57] LABS: Glucose, Whole Blood 394 mg/dL (60-115)
--- NOTE | 2024-02-14 11:57 | MHC.EDTECH ---
This tech went to do belonging list with pt, checked vital signs and POC glucose, RN aware of the results. Pt vomiting, RN aware. Call ulloa within reach.
[2024-02-14 13:02] LABS: Glucose, Whole Blood 424 mg/dL (60-115)
[2024-02-14] MEDS: Insulin Lispro 100 UNIT/ML 3 ML VIAL 20 UNIT SUBCUT (13:09)
[2024-02-14 13:58] LABS: Glucose, Whole Blood 372 mg/dL (60-115)
--- NOTE | 2024-02-14 15:16 | P.HPHOSP_ITS ---
History of Present Illness Date of Service: 02/14/24 Chief Complaint: Abnormal blood sugars and dysuria symptoms 8 yo female with PMH of pancreatitis, type 1 DM who's insulin pump was dislodged today, recurrent UTI, NSTEMI, anxiety, diabetic gastroparesis here with c/o lower abdominal pain all day and n/v unable to keep anything down. Her insulin pump also dislodged during EMS transfer. called 911 because she was lethargic. Patient states she is on antibiotic for UTI doesn't know name or duration. She denies diarrhea. No fevers reported. She has increased urinary frequency and dysuria MD elicited complaint: abdominal pain In the emergency room, given ceftriaxone 1 g along with an albuterol updraft and pain management with hydromorphone. She did receive some IV Zofran secondary to gastroparesis. Review of Systems 2 Review of Systems: Denies chest pain Denies shortness of breath Admits to nausea vomiting diarrhea Denies fever chills [facility] Medical History Chronic hypertension Intractable cyclical vomiting with nausea Diabetes mellitus with gastroparesis Diabetic gastroparesis Herpes zoster Status post fall Recurrent UTI NSTEMI (non-ST elevated myocardial infarction) Diabetic gastroparesis Anxiety Bipolar 1 disorder Pancreatitis Gastroparesis Diabetes Surgical History History of cholecystectomy History of tonsillectomy History of ERCP H/O pyloroplasty History of appendectomy H/O: hysterectomy Social History Household Members: Spouse Housing: House Do you presently have visiting nurse or other home services: No Unable to assess alcohol history related to: Unknown Alcohol intake: never Comment: pt refused bed alarm Patient Tobacco Use Status: Former Tobacco user Tobacco use type: Cigarette Smoked in Last 30 Days: No e-Cigarette/Vaping Use: Never Used Second Hand Smoke Exposure: No Use of substances other than those prescribed or required for medical reasons: No Substance Use Type: Marijuana Advance Directives: Yes Advance Directives on File: Yes Advance Directives Date on File: 12/03/22 Do you have a plan to hurt others: No Plan Patient : No service: No Current occupational status: disabled Cognitive needs: No Hearing needs: No Vision needs: No Meds Allergies Allergy/AdvReac Type Severity Reaction Status Date / Time morphine [MORPHINE] Allergy Intermediate RASH, Verified 02/14/24 02:37 hives, hives mushroom Allergy Intermediate HIVES/RASH Verified 02/14/24 02:37 Sulfa (Sulfonamide Allergy Mild Rash Verified 02/14/24 02:37 Antibiotics) mushroom Allergy Unknown throat Uncoded 02/14/24 02:37 closes up/difficult breathing mushrooms Allergy Unknown anaphylaxis Uncoded 02/14/24 02:37 Active Medications: Current Medications Acetaminophen (Acetaminophen 325 Mg Tablet) 650 mg PO Q6H PRN PRN Reason: Pain, Mild (Pain Scale 1-3), fever or headache Albuterol Sulfate (Albuterol Sulfate 90 Mcg 8 Gm Inhaler) 1 puff INHALE Q4H PRN PRN Reason: for wheezing Calcium Carbonate (Calcium Carbonate 750 Mg Tab.Chew) 750 mg PO Q4H PRN PRN Reason: Heartburn Enoxaparin Sodium (Enoxaparin Sodium 40 Mg/0.4 Ml Syringe) 40 mg SUBCUT Q24H [facility] Last Admin: 02/14/24 11:15 Dose: 40 mg Glucose (Glucose Gel 15 Gm Gel..Gram.) 15 gm PO Q15M PRN; Protocol PRN Reason: per Hypoglycemia Standing Ord. Hydromorphone HCl (Hydromorphone Hcl 1 Mg/Ml Syringe) 1 mg IVPUSH Q4H PRN; Protocol PRN Reason: Pain, Severe (Pain Scale 7-10) Last Admin: 02/14/24 09:25 Dose: 1 mg Sodium Chloride (Ns) 1,000 mls @ 100 mls/hr IVCONT .Q10H [facility] Last Admin: 02/14/24 11:17 Dose: 100 mls/hr Dextrose (D10) 250 mls @ 750 mls/hr IV Q15M PRN; Protocol PRN Reason: per Hypoglycemia Standing Ord. Ceftriaxone Sodium 1 gm/ (Sodium Chloride) 50 mls @ 100 mls/hr IV Q24H [facility] Insulin Human Lispro (Insulin Lispro 100 Unit/Ml 3 Ml Vial) 0 unit SUBCUT QIDACHS RAISA; Protocol Lamotrigine (Lamotrigine 100 Mg Tablet) 200 mg PO BID [facility] Lorazepam (Lorazepam 1 Mg Tablet) 1 mg PO TID PRN PRN Reason: Anxiety Magnesium Hydroxide (Milk Of Magnesia 30 Ml Oral.Susp) 30 ml PO DAILY PRN PRN Reason: Constipation Melatonin (Melatonin 3 Mg Tablet) 6 mg PO BEDTIME PRN PRN Reason: Insomnia Metoprolol Tartrate (Metoprolol Tartrate 25 Mg Tablet) 25 mg PO BID [facility]ISA; Protocol Midodrine (Midodrine Hcl 5 Mg Tablet) 5 mg PO DAILY [facility] Ondansetron HCl (Ondansetron Hcl 4 Mg/2 Ml Vial) 4 mg IVPUSH Q4H PRN PRN Reason: Nausea and Vomiting Last Admin: 02/14/24 12:47 Dose: 4 mg Risperidone (Risperidone 2 Mg Tablet) 2 mg PO BID [facility] Sodium Chloride (0.9 % Sodium Chloride Flush 3 Ml Syringe) 3 ml IVFLUSH QSHIFT [facility] Zolpidem Tartrate (Zolpidem Tartrate 5 Mg Tablet) 10 mg PO BEDTIME [facility] Home Medications ?Medication ?Instructions ?Recorded ?Confirmed ?Last Taken ?Type lamotrigine 200 mg tablet 200 mg PO BID 05/11/20 02/14/24 10/17/23 History lorazepam 1 mg tablet 1 mg PO TID PRN Anxiety 05/11/20 02/14/24 06/17/23 08:00 History zolpidem 10 mg tablet 10 mg PO BEDTIME 05/11/20 02/14/24 10/17/23 History insulin aspart U-100 100 unit/mL 0 unit subcut DIRECTED 06/01/20 02/14/24 10/18/23 History (3 mL) subcutaneous pen (Novolog FlexPen U-100 Insulin aspart) risperidone 2 mg tablet 2 mg PO BID 09/13/21 02/14/24 10/17/23 History Physical Exam 2 Vital Signs and Narrative: Vital Signs: Last Vital Signs Temp 98.8 F 02/14/24 11:47 Pulse 136 H 02/14/24 11:47 Resp 19 02/14/24 11:47 BP 119/97 H 02/14/24 11:47 Pulse Ox 95 02/14/24 06:08 O2 Del Method Room Air 02/14/24 06:08 O2 Flow Rate 96 02/14/24 11:47 BMI result Body Mass Index 28.2 Const: Other: Awake alert miserable appearing Resp: Other: Clear to auscultation bilaterally no rales rhonchi or wheezes Cardio: Other: No S4; positive S1-S2; no S3 murmurs rubs or gallops GI: Other: Soft quiet bowel sounds Extrem: Other: No edema bilateral Results Labs 02/14/24 03:20 02/14/24 03:20 Labs: Laboratory Results - last 24 hr 02/14/24 02/14/24 02/14/24 02:28 03:19 03:20 MCV 81.3 MCH 28.0 MCHC 34.4 RDW 15.1 Plt Count 560 H D MPV 8.7 L Immature Gran % (Auto) 0.4 Neut % (Auto) 88.1 H Lymph % (Auto) 9.3 L [place] % (Auto) 1.8 L Eos % (Auto) 0.0 Baso % (Auto) 0.4 Lymph # (Auto) 1.4 [place] # (Auto) 0.3 Eos # (Auto) 0.0 Baso # (Auto) 0.1 Abs Immat Gran (auto) 0.06 H Absolute Neuts (auto) 13.4 H Absolute Nucleated RBC 0.000 Nucleated RBC % (auto) 0.0 VBG pH VBG pCO2 VBG pO2 VBG HCO3 VBG O2 Saturation VBG Base Excess Anion Gap 21 H Estim Creat Clear Calc 67.7 Estimated GFR 57 POC Glucose 260 H Random Glucose 319 H Lactic Acid 3.5 H* Lactic Acid F/U @ 2Hr Lactic Acid F/U @ 4Hr Calcium 10.1 D Magnesium 1.5 L Total Bilirubin 0.3 Direct Bilirubin 0.1 AST 11 ALT 11 Alkaline Phosphatase 156 H Ammonia 21 Troponin I High Sens < 2.7 B-Natriuretic Peptide 10 Total Protein 8.3 H Albumin 4.6 Lipase 5 L TSH 0.58 Urine Color Urine Appearance Urine pH Ur Specific [place]sie Urine Protein Urine Glucose (UA) Urine Ketones Urine Blood Urine Nitrite Ur Leukocyte Esterase Urine RBC Urine WBC Ur Squamous Epith Cells Urine Bacteria Hyaline Casts Influenza Type A (PCR) NEGATIVE Influenza Type B (PCR) NEGATIVE RSV RNA Qual (PCR) NEGATIVE SARS-CoV-2 RNA (RT-PCR) NEGATIVE 02/14/24 02/14/24 02/14/24 03:22 04:29 05:41 MCV MCH MCHC RDW Plt Count MPV Immature Gran % (Auto) Neut % (Auto) Lymph % (Auto) [place] % (Auto) Eos % (Auto) Baso % (Auto) Lymph # (Auto) [place] # (Auto) Eos # (Auto) Baso # (Auto) Abs Immat Gran (auto) Absolute Neuts (auto) Absolute Nucleated RBC Nucleated RBC % (auto) VBG pH 7.55 H VBG pCO2 23 VBG pO2 58 VBG HCO3 20 L VBG O2 Saturation 87.0 VBG Base Excess 0.2 Anion Gap Estim Creat Clear Calc Estimated GFR POC Glucose Random Glucose Lactic Acid Lactic Acid F/U @ 2Hr 3.6 H* Lactic Acid F/U @ 4Hr Calcium Magnesium Total Bilirubin Direct Bilirubin AST ALT Alkaline Phosphatase Ammonia Troponin I High Sens B-Natriuretic Peptide Total Protein Albumin Lipase TSH Urine Color Yellow Urine Appearance Clear Urine pH 6.5 Ur Specific Elsie 1.015 Urine Protein 100 (2+) H Urine Glucose (UA) >=1000 H Urine Ketones 80 Urine Blood Small (1+) H Urine Nitrite Negative Ur Leukocyte Esterase Small (1+) H Urine RBC 6-10 H Urine WBC 21-50 H Ur Squamous Epith Cells 3-5 Urine Bacteria Trace Hyaline Casts 0-2 Influenza Type A (PCR) Influenza Type B (PCR) RSV RNA Qual (PCR) SARS-CoV-2 RNA (RT-PCR) 02/14/24 02/14/24 02/14/24 07:42 08:31 10:06 MCV MCH MCHC RDW Plt Count MPV Immature Gran % (Auto) Neut % (Auto) Lymph % (Auto) [place] % (Auto) Eos % (Auto) Baso % (Auto) Lymph # (Auto) [place] # (Auto) Eos # (Auto) Baso # (Auto) Abs Immat Gran (auto) Absolute Neuts (auto) Absolute Nucleated RBC Nucleated RBC % (auto) VBG pH VBG pCO2 VBG pO2 VBG HCO3 VBG O2 Saturation VBG Base Excess Anion Gap Estim Creat Clear Calc Estimated GFR POC Glucose 429 H* 369 H* Random Glucose Lactic Acid Lactic Acid F/U @ 2Hr Lactic Acid F/U @ 4Hr 2.0 Calcium Magnesium Total Bilirubin Direct Bilirubin AST ALT Alkaline Phosphatase Ammonia Troponin I High Sens B-Natriuretic Peptide Total Protein Albumin Lipase TSH Urine Color Urine Appearance Urine pH Ur Specific [place]sie Urine Protein Urine Glucose (UA) Urine Ketones Urine Blood Urine Nitrite Ur Leukocyte Esterase Urine RBC Urine WBC Ur Squamous Epith Cells Urine Bacteria Hyaline Casts Influenza Type A (PCR) Influenza Type B (PCR) RSV RNA Qual (PCR) SARS-CoV-2 RNA (RT-PCR) 02/14/24 02/14/24 02/14/24 11:51 12:51 13:53 MCV MCH MCHC RDW Plt Count MPV Immature Gran % (Auto) Neut % (Auto) Lymph % (Auto) [place] % (Auto) Eos % (Auto) Baso % (Auto) Lymph # (Auto) [place] # (Auto) Eos # (Auto) Baso # (Auto) Abs Immat Gran (auto) Absolute Neuts (auto) Absolute Nucleated RBC Nucleated RBC % (auto) VBG pH VBG pCO2 VBG pO2 VBG HCO3 VBG O2 Saturation VBG Base Excess Anion Gap Estim Creat Clear Calc Estimated GFR POC Glucose 394 H* 424 H* 372 H* Random Glucose Lactic Acid Lactic Acid F/U @ 2Hr Lactic Acid F/U @ 4Hr Calcium Magnesium Total Bilirubin Direct Bilirubin AST ALT Alkaline Phosphatase Ammonia Troponin I High Sens B-Natriuretic Peptide Total Protein Albumin Lipase TSH Urine Color Urine Appearance Urine pH Ur Specific [place] Urine Protein Urine Glucose (UA) Urine Ketones Urine Blood Urine Nitrite Ur Leukocyte Esterase Urine RBC Urine WBC Ur Squamous Epith Cells Urine Bacteria Hyaline Casts Influenza Type A (PCR) Influenza Type B (PCR) RSV RNA Qual (PCR) SARS-CoV-2 RNA (RT-PCR) Imaging Radiologist's Impressions: Impressions Chest X-Ray 02/14/24 02:56 IMPRESSION: No acute cardiopulmonary findings. Abdomen/Pelvis CT 02/14/24 05:59 IMPRESSION: 1. Mild bilateral hydroureteronephrosis and perinephric stranding. In the absence of obstructing calculi or other sources of ureteral obstruction, this is likely related to the distended urinary bladder.. Multiple small nonobstructing bilateral renal calculi. 2. Hepatic steatosis. Fleischner guidelines were followed. Assessment and Plan (1) Acute UTI: Status: Acute (2) Diabetic gastroparesis: Status: Acute (3) Diabetes mellitus type 1: Qualifiers: Diabetes mellitus complication status: with hyperglycemia Qualified Code(s): E10.65 - Type 1 diabetes mellitus with hyperglycemia Status: Acute Plan 48-year-old female with known history of type 1 diabetes on insulin pump and history of gastroparesis presents with dysuria symptoms and hypoglycemia secondary to a malfunctioning insulin pump. Was given D50 in the ER with good results. Urine with active sediment 1. Acute UTI -ceftriaxone (1) -blood cultures/urine cultures pending -adjust therapies as indicated 2. Diabetes type 1 ... Per patient pump not functioning -lispro correctional scale -Lantus 20 units daily adjust as indicated -adjust based on correctional scale. . . Will add to Lantus as appropriate 3. Diabetic gastroparesis -Zofran alternating with Reglan -volume repletion Lovenox Full code Patient requires at least 2 midnights going forward to treat acute UTI with diabetic gastroparesis. This can not be achieved a lesser acute setting Quality Stroke Does the patient have a stroke diagnosis?: No VTE Prior VTE?: No VTE Risk Level:: Medical - moderate - high VTE Device Contraindication: Treatment Not Indicated VTE Drug Contraindication: N/A - Med Ordered
[2024-02-14] MEDS: Insulin Glargine,Hum.rec.anlog 100 UNIT/ML 10 ML VIAL 20 UNIT SUBCUT ×2 (16:15→20:38)
[2024-02-14] MEDS: 0.9 % Sodium Chloride 1,000 ML 999 ML IV (16:17)
[2024-02-14 16:25] LABS: Glucose, Whole Blood 294 mg/dL (60-115)
[2024-02-14] MEDS: Insulin Lispro 100 UNIT/ML 3 ML VIAL SUBCUT ×2 (17:33→20:39)
[2024-02-14] MEDS: 0.9 % Sodium Chloride Flush 3 ML SYRINGE IVFLUSH (17:37)
[2024-02-14 20:16] LABS: Glucose, Whole Blood 167 mg/dL (60-115)
[2024-02-14] MEDS: Metoprolol Tartrate 25 MG TABLET PO (20:36)
[2024-02-14] MEDS: risperiDONE 2 MG TABLET PO (20:37)
[2024-02-14] MEDS: Zolpidem Tartrate 5 MG TABLET 10 MG PO (20:37)
[2024-02-14] MEDS: lamoTRIgine 100 MG TABLET 200 MG PO (20:37)
[2024-02-15] MEDS: HYDROmorphone HCl 1 MG/ML SYRINGE IVPUSH ×6 (01:50→23:17)
[2024-02-15] MEDS: cefTRIAXone sodium 1 GM in 0.9 % Sodium Chloride 50 ML IV (03:20)
[2024-02-15 03:32] VITALS: BP 126/66; PULSE 110; RESP 20; TEMP 36.3; O2SAT 98
[2024-02-15] MEDS: 0.9 % Sodium Chloride 1,000 ML 100 ML IVCONT ×3 (05:27→23:52)
[2024-02-15] MEDS: ondansetron HCL 4 MG/2 ML VIAL IVPUSH ×5 (05:32→23:20)
[2024-02-15 06:24] LABS: MANUAL DIFF FLAG NO
[2024-02-15 06:28] LABS: Basophils Absolute Auto 0.1 X10*3/uL (0.0-0.2); Basophils Percent Auto 0.4 % (0-2); Eosinophils Percent Auto 0.1 % (0-4); Hematocrit 29.5 % (37.0-47.0); Hemoglobin 9.7 g/dl (12.0-16.0); Imm Gran Abs Auto 0.08 X10*3/uL (0.00-0.03); Imm Gran Pct Auto 0.5 % (0.0-0.4); Lymphocytes Absolute Auto 3.7 X10*3/uL (1.2-4.9); Lymphocytes Percent Auto 22.6 % (20-40); Mean Corpuscular HGB Conc 32.9 g/dl (31.0-35.0); Mean Corpuscular Hemoglobin 27.6 pg (27.0-33.0); Mean Corpuscular Volume 83.8 fL (80.0-98.0); Monocytes Absolute Auto 1.3 X10*3/uL (0.1-1.2); Monocytes Percent Auto 7.7 % (2-11); Neutrophils Absolute Auto 11.2 x10*3/uL (2.0-8.3); Neutrophils Percent Auto 68.7 % (45-73); Platelet Count 509 X10*3/uL (160-400); Red Blood Count 3.52 X10*6/uL (4.20-5.50); Red Cell Distribution Width 15.6 % (11.0-16.0); White Blood Count 16.3 X10*3/uL (4.8-10.8)
[2024-02-15 06:55] LABS: Alanine Aminotransferase 10 U/L (0-31); Albumin Level 3.6 g/dL (3.5-5.0); Alkaline Phosphatase 113 U/L (39-117); Anion Gap 14 (12-20); Aspartate Amino Transferase 11 U/L (5-31); Bilirubin Total 0.3 mg/dL (0.0-1.0); Blood Urea Nitrogen 15 mg/dL (9-16); Calcium 8.8 mg/dL (8.4-10.2); Carbon Dioxide 24 mmol/L (22-29); Chloride 102 mmol/L (96-108); Creatinine Clr Calc Pharmacy 81.1; Estimated Glomerular Filt Rate > 60; Glucose Random 124 mg/dL (60-115); Potassium 3.6 mmol/L (3.3-5.1); Sodium 136 mmol/L (135-145); Total Protein 6.5 g/dL (6.5-8.0)
[2024-02-15 07:54] LABS: Glucose, Whole Blood 171 mg/dL (60-115)
[2024-02-15 07:58] VITALS: BP 124/60; PULSE 100; RESP 14; TEMP 36.9; O2SAT 98
[2024-02-15] MEDS: Midodrine HCl 5 MG TABLET PO (08:17)
[2024-02-15] MEDS: Metoprolol Tartrate 25 MG TABLET PO ×2 (08:17→23:25)
[2024-02-15] MEDS: risperiDONE 2 MG TABLET PO (08:17)
[2024-02-15] MEDS: lamoTRIgine 100 MG TABLET 200 MG PO (08:17)
[2024-02-15] MEDS: Insulin Glargine,Hum.rec.anlog 100 UNIT/ML 10 ML VIAL 20 UNIT SUBCUT ×2 (08:17→23:47)
[2024-02-15] MEDS: Insulin Lispro 100 UNIT/ML 3 ML VIAL SUBCUT (08:17)
--- NOTE | 2024-02-15 08:29 | MHC.CM.PN ---
IMM DELIVERED. PATIENT LIVES IN A TRAILER W/ . FUNCTIONALLY INDEPENDENT. DENIES USE OF DME OR SERVICES. PCP SABRINA POWELL MD HCP ON FILE AND VERIFIED. DP: GOAL IS HOME SELF CARE, TO TRANSPORT.
[2024-02-15] MEDS: Enoxaparin Sodium 40 MG/0.4 ML SYRINGE SUBCUT (10:20)
--- NOTE | 2024-02-15 10:22 | P.PNIM_ITS ---
Subjective Subjective Date of Service: 02/15/24 Interval History: Notes improvement overnight. Abdominal pain improved; still nauseous Review of Systems Denies chest pain Denies shortness of breath Admits to nausea denies vomiting diarrhea Denies fever chills Physical Exam 2 Vital Signs: Vital Signs: Last Vital Signs Temp 98.4 F 02/15/24 07:58 Pulse 100 02/15/24 07:58 Resp 14 02/15/24 07:58 BP 124/60 02/15/24 07:58 Pulse Ox 98 02/15/24 07:58 O2 Del Method Room Air 02/15/24 07:58 O2 Flow Rate 96 02/14/24 11:47 BMI result Body Mass Index 28.2 Const: Other: Awake alert miserable appearing Resp: Other: Clear to auscultation bilaterally no rales rhonchi or wheezes Cardio: Other: No S4; positive S1-S2; no S3 murmurs rubs or gallops GI: Other: Soft quiet bowel sounds Extrem: Other: No edema bilateral Objective Data Active Medications Acetaminophen (Acetaminophen 325 Mg Tablet) 650 mg PO Q6H PRN PRN Reason: Pain, Mild (Pain Scale 1-3), fever or headache Albuterol Sulfate (Albuterol Sulfate 90 Mcg 8 Gm Inhaler) 1 puff INHALE Q4H PRN PRN Reason: for wheezing Calcium Carbonate (Calcium Carbonate 750 Mg Tab.Chew) 750 mg PO Q4H PRN PRN Reason: Heartburn Enoxaparin Sodium (Enoxaparin Sodium 40 Mg/0.4 Ml Syringe) 40 mg SUBCUT Q24H [facility] Last Admin: 02/14/24 11:15 Dose: 40 mg Documented By: MARCO A Glucose (Glucose Gel 15 Gm Gel..Gram.) 15 gm PO Q15M PRN; Protocol PRN Reason: per Hypoglycemia Standing Ord. Hydromorphone HCl (Hydromorphone Hcl 1 Mg/Ml Syringe) 1 mg IVPUSH Q4H PRN; Protocol PRN Reason: Pain, Severe (Pain Scale 7-10) Last Admin: 02/15/24 06:24 Dose: 1 mg Documented By: ABBY Sodium Chloride (Ns) 1,000 mls @ 100 mls/hr IVCONT .Q10H [facility] Last Admin: 02/15/24 05:27 Dose: 100 mls/hr Documented By: ABBY Dextrose (D10) 250 mls @ 750 mls/hr IV Q15M PRN; Protocol PRN Reason: per Hypoglycemia Standing Ord. Ceftriaxone Sodium 1 gm/ (Sodium Chloride) 50 mls @ 100 mls/hr IV Q24H [facility] Last Infusion: 02/15/24 03:51 Dose: Infused Documented By: ABBY Insulin Glargine (Insulin Glargine,Hum.Rec.Anlog 100 Unit/Ml 10 Ml Vial) 20 unit SUBCUT BID [facility] Last Admin: 02/15/24 08:17 Dose: 20 unit Documented By: BRAYDEN Insulin Human Lispro (Insulin Lispro 100 Unit/Ml 3 Ml Vial) 0 unit SUBCUT QIDACHS [facility]; Protocol Last Admin: 02/15/24 08:17 Dose: 2 unit Documented By: BRAYDEN Lamotrigine (Lamotrigine 100 Mg Tablet) 200 mg PO BID [facility] Last Admin: 02/15/24 08:17 Dose: 200 mg Documented By: BRAYDEN Lorazepam (Lorazepam 1 Mg Tablet) 1 mg PO TID PRN PRN Reason: Anxiety Magnesium Hydroxide (Milk Of Magnesia 30 Ml Oral.Susp) 30 ml PO DAILY PRN PRN Reason: Constipation Melatonin (Melatonin 3 Mg Tablet) 6 mg PO BEDTIME PRN PRN Reason: Insomnia Metoprolol Tartrate (Metoprolol Tartrate 25 Mg Tablet) 25 mg PO BID [facility]; Protocol Last Admin: 02/15/24 08:17 Dose: 25 mg Documented By: BRAYDEN Midodrine (Midodrine Hcl 5 Mg Tablet) 5 mg PO DAILY [facility] Last Admin: 02/15/24 08:17 Dose: 5 mg Documented By: BRAYDEN Ondansetron HCl (Ondansetron Hcl 4 Mg/2 Ml Vial) 4 mg IVPUSH Q4H PRN PRN Reason: Nausea and Vomiting Last Admin: 02/15/24 05:32 Dose: 4 mg Documented By: ABBY Risperidone (Risperidone 2 Mg Tablet) 2 mg PO BID [facility] Last Admin: 02/15/24 08:17 Dose: 2 mg Documented By: BRAYDEN Sodium Chloride (0.9 % Sodium Chloride Flush 3 Ml Syringe) 3 ml IVFLUSH QSHIFT [facility] Last Admin: 02/15/24 07:41 Dose: Not Given Documented By: BRAYDEN Non-Admin Reason: IV Running Zolpidem Tartrate (Zolpidem Tartrate 5 Mg Tablet) 10 mg PO BEDTIME [facility] Last Admin: 02/14/24 20:37 Dose: 10 mg Documented By: LEON Labs 02/15/24 05:25 02/15/24 05:25 Labs: Laboratory Results - last 24 hr 02/14/24 02/14/24 02/14/24 11:51 12:51 13:53 MCV MCH MCHC RDW Plt Count MPV Immature Gran % (Auto) Neut % (Auto) Lymph % (Auto) [place] % (Auto) Eos % (Auto) Baso % (Auto) Lymph # (Auto) [place] # (Auto) Eos # (Auto) Baso # (Auto) Abs Immat Gran (auto) Absolute Neuts (auto) Absolute Nucleated RBC Nucleated RBC % (auto) Anion Gap Estim Creat Clear Calc Estimated GFR POC Glucose 394 H* 424 H* 372 H* Random Glucose Calcium Total Bilirubin AST ALT Alkaline Phosphatase Total Protein Albumin 02/14/24 02/14/24 02/15/24 16:14 20:11 05:25 MCV 83.8 MCH 27.6 MCHC 32.9 RDW 15.6 Plt Count 509 H MPV 9.0 L Immature Gran % (Auto) 0.5 H Neut % (Auto) 68.7 Lymph % (Auto) 22.6 [place] % (Auto) 7.7 Eos % (Auto) 0.1 Baso % (Auto) 0.4 Lymph # (Auto) 3.7 [place] # (Auto) 1.3 H Eos # (Auto) 0.0 Baso # (Auto) 0.1 Abs Immat Gran (auto) 0.08 H Absolute Neuts (auto) 11.2 H Absolute Nucleated RBC 0.000 Nucleated RBC % (auto) 0.0 Anion Gap 14 Estim Creat Clear Calc 81.1 Estimated GFR > 60 POC Glucose 294 H 167 H Random Glucose 124 H Calcium 8.8 D Total Bilirubin 0.3 AST 11 ALT 10 Alkaline Phosphatase 113 Total Protein 6.5 Albumin 3.6 02/15/24 07:52 MCV MCH MCHC RDW Plt Count MPV Immature Gran % (Auto) Neut % (Auto) Lymph % (Auto) [place] % (Auto) Eos % (Auto) Baso % (Auto) Lymph # (Auto) [place] # (Auto) Eos # (Auto) Baso # (Auto) Abs Immat Gran (auto) Absolute Neuts (auto) Absolute Nucleated RBC Nucleated RBC % (auto) Anion Gap Estim Creat Clear Calc Estimated GFR POC Glucose 171 H Random Glucose Calcium Total Bilirubin AST ALT Alkaline Phosphatase Total Protein Albumin Microbiology Microbiology Results: Microbiology 02/14/24 Unknown Urine Culture - Final Urine clean catch - Clean Catch Midstream 02/14/24 03:20 Blood Culture - Preliminary Blood - Venous No growth after 24 hours. 02/14/24 03:20 Blood Culture - Preliminary Blood - Venous No growth after 24 hours. Assessment and Plan (1) Acute urinary retention: Status: Acute (2) Nausea & vomiting: Status: Acute (3) Diabetic gastroparesis: Status: Acute (4) Diabetes mellitus type 1: Status: Acute Plan 48-year-old female with known history of type 1 diabetes on insulin pump and history of gastroparesis presents with dysuria symptoms and hypoglycemia secondary to a malfunctioning insulin pump. Was given D50 in the ER with good results. Urine with active sediment 1. Acute UTI -ceftriaxone (2) -blood cultures/urine cultures pending -adjust therapies as indicated 2. Diabetes type 1 ... Per patient pump not functioning -lispro correctional scale -Lantus 20 units b.i.d. -acceptable control on current regimen. Patient will restart pump upon discharge 3. Diabetic gastroparesis -Zofran alternating with Reglan -volume repletion Lovenox Full code Patient will require ongoing hospitalization for IV antibiotics to treat acute UTI that has failed outpatient therapies (Macrobid) Quality Stroke Does the patient have a stroke diagnosis?: No VTE Prior VTE?: No VTE Risk Level:: Medical - moderate - high VTE Device Contraindication: Treatment Not Indicated VTE Drug Contraindication: N/A - Med Ordered
[2024-02-15 11:20] LABS: Glucose, Whole Blood 102 mg/dL (60-115)
[2024-02-15 15:36] VITALS: BP 133/84; PULSE 97; RESP 12; TEMP 36.4; O2SAT 99
[2024-02-15 16:13] LABS: Glucose, Whole Blood 156 mg/dL (60-115)
[2024-02-15 20:00] VITALS: BP 160/99; PULSE 132; RESP 19; TEMP 36; O2SAT 95
[2024-02-15 21:22] LABS: Glucose, Whole Blood 145 mg/dL (60-115)
[2024-02-15 23:16] VITALS: BP 160/90; PULSE 140
[2024-02-15] MEDS: Zolpidem Tartrate 5 MG TABLET 10 MG PO (23:24)
[2024-02-15 23:25] VITALS: BP 160/90; PULSE 140
[2024-02-16] VITALS (7 sets, daily range): BP systolic 101–170; BP diastolic 51–84; PULSE 96–120; RESP 12–20; TEMP 36–36.7; O2SAT 93–96
[2024-02-16] MEDS: cefTRIAXone sodium 1 GM in 0.9 % Sodium Chloride 50 ML IV (04:20)
[2024-02-16] MEDS: ondansetron HCL 4 MG/2 ML VIAL IVPUSH ×4 (05:09→20:10)
[2024-02-16] MEDS: HYDROmorphone HCl 0.5 MG/0.5 ML SYRINGE IVPUSH (05:11)
--- NOTE | 2024-02-16 06:07 | PC.NURSE ---
Addendum entered by Tammie Holliday RN 02/16/24 06:13: Pt's rechecked HR 99, sinus rhythm on teley monitor, BP 101/51. Will continue to monitor. Original Note: Approximatly around 23:00, pt was c/o of 10/10 pain, nausea, and appeared anxious, pt shaking. Pt's vitals were taken, elevated HR 140 and BP 160/90. MD Farooq notified of the situation. Continues nuclear monitoring technician was ordered per MD Farooq. RAISA Metoprolol was given to pt, see MAR. This RN administered PRN Dilaudid and Zofran for the pt's pain and nausea. Will continue to monitor.
[2024-02-16 06:32] LABS: MANUAL DIFF FLAG NO
[2024-02-16 06:57] LABS: Basophils Absolute Auto 0.1 X10*3/uL (0.0-0.2); Basophils Percent Auto 0.4 % (0-2); Hematocrit 32.9 % (37.0-47.0); Hemoglobin 11.1 g/dl (12.0-16.0); Imm Gran Abs Auto 0.04 X10*3/uL (0.00-0.03); Imm Gran Pct Auto 0.3 % (0.0-0.4); Lymphocytes Absolute Auto 2.6 X10*3/uL (1.2-4.9); Lymphocytes Percent Auto 21.7 % (20-40); Mean Corpuscular HGB Conc 33.7 g/dl (31.0-35.0); Mean Corpuscular Hemoglobin 27.3 pg (27.0-33.0); Mean Corpuscular Volume 80.8 fL (80.0-98.0); Mean Platelet Volume 8.8 fL (9.4-12.3); Monocytes Absolute Auto 0.8 X10*3/uL (0.1-1.2); Neutrophils Absolute Auto 8.5 x10*3/uL (2.0-8.3); Neutrophils Percent Auto 70.6 % (45-73); Platelet Count 536 X10*3/uL (160-400); Red Blood Count 4.07 X10*6/uL (4.20-5.50); Red Cell Distribution Width 14.5 % (11.0-16.0); White Blood Count 12.1 X10*3/uL (4.8-10.8)
[2024-02-16 07:02] LABS: Alanine Aminotransferase 12 U/L (0-31); Albumin Level 3.9 g/dL (3.5-5.0); Alkaline Phosphatase 124 U/L (39-117); Anion Gap 17 (12-20); Aspartate Amino Transferase 13 U/L (5-31); Bilirubin Total 0.2 mg/dL (0.0-1.0); Blood Urea Nitrogen 8 mg/dL (9-16); Calcium 8.8 mg/dL (8.4-10.2); Carbon Dioxide 25 mmol/L (22-29); Chloride 96 mmol/L (96-108); Estimated Glomerular Filt Rate > 60; Glucose Random 197 mg/dL (60-115); Potassium 3.2 mmol/L (3.3-5.1); Sodium 135 mmol/L (135-145); Total Protein 7.1 g/dL (6.5-8.0)
[2024-02-16 08:11] LABS: Glucose, Whole Blood 179 mg/dL (60-115)
[2024-02-16] MEDS: HYDROmorphone HCl 1 MG/ML SYRINGE IVPUSH (10:02)
[2024-02-16] MEDS: Enoxaparin Sodium 40 MG/0.4 ML SYRINGE SUBCUT (10:02)
[2024-02-16] MEDS: Insulin Glargine,Hum.rec.anlog 100 UNIT/ML 10 ML VIAL 10 UNIT SUBCUT (10:18)
[2024-02-16] MEDS: 0.9 % Sodium Chloride 1,000 ML 100 ML IVCONT ×2 (10:45→20:25)
[2024-02-16 11:21] LABS: Glucose, Whole Blood 151 mg/dL (60-115)
--- NOTE | 2024-02-16 11:45 | PC.NURSE ---
Bai removed at 1050. Patient due to void by 1650. Patient tolerated well. Device intact.
--- NOTE | 2024-02-16 13:16 | P.PNIM_ITS ---
Subjective Subjective Date of Service: 02/16/24 Interval History: States still does not feel any better. Review of Systems Denies chest pain Denies shortness of breath Admits to nausea denies vomiting diarrhea Denies fever chills Physical Exam 2 Vital Signs: Vital Signs: Last Vital Signs Temp 97.6 F 02/16/24 08:00 Pulse 112 H 02/16/24 09:56 Resp 14 02/16/24 08:00 BP 141/76 H 02/16/24 09:56 Pulse Ox 96 02/16/24 08:00 O2 Del Method Room Air 02/16/24 08:00 O2 Flow Rate 96 02/14/24 11:47 BMI result Body Mass Index 28.2 Const: Other: Awake alert miserable appearing Resp: Other: Clear to auscultation bilaterally no rales rhonchi or wheezes Cardio: Other: No S4; positive S1-S2; no S3 murmurs rubs or gallops GI: Other: Soft quiet bowel sounds Extrem: Other: No edema bilateral Objective Data Active Medications Acetaminophen (Acetaminophen 325 Mg Tablet) 650 mg PO Q6H PRN PRN Reason: Pain, Mild (Pain Scale 1-3), fever or headache Albuterol Sulfate (Albuterol Sulfate 90 Mcg 8 Gm Inhaler) 1 puff INHALE Q4H PRN PRN Reason: for wheezing Calcium Carbonate (Calcium Carbonate 750 Mg Tab.Chew) 750 mg PO Q4H PRN PRN Reason: Heartburn Enoxaparin Sodium (Enoxaparin Sodium 40 Mg/0.4 Ml Syringe) 40 mg SUBCUT Q24H [facility] Last Admin: 02/16/24 10:02 Dose: 40 mg Documented By: BRAYDEN Glucose (Glucose Gel 15 Gm Gel..Gram.) 15 gm PO Q15M PRN; Protocol PRN Reason: per Hypoglycemia Standing Ord. Hydromorphone HCl (Hydromorphone Hcl 1 Mg/Ml Syringe) 1 mg IVPUSH Q4H PRN; Protocol PRN Reason: Pain, Severe (Pain Scale 7-10) Last Admin: 02/16/24 10:02 Dose: 1 mg Documented By: BRAYDEN Dextrose (D10) 250 mls @ 750 mls/hr IV Q15M PRN; Protocol PRN Reason: per Hypoglycemia Standing Ord. Ceftriaxone Sodium 1 gm/ (Sodium Chloride) 50 mls @ 100 mls/hr IV Q24H [facility] Last Infusion: 02/16/24 05:09 Dose: Infused Documented By: ABBY Sodium Chloride (Ns) 1,000 mls @ 100 mls/hr IVCONT .Q10H [facility] Last Admin: 02/16/24 10:45 Dose: 100 mls/hr Documented By: BRAYDEN Insulin Glargine (Insulin Glargine,Hum.Rec.Anlog 100 Unit/Ml 10 Ml Vial) 20 unit SUBCUT BID [facility] Last Admin: 02/16/24 10:12 Dose: Not Given Documented By: BRAYDEN Non-Admin Reason: Physician Held Med Insulin Human Lispro (Insulin Lispro 100 Unit/Ml 3 Ml Vial) 0 unit SUBCUT QIDACHS [facility]; Protocol Last Admin: 02/16/24 12:11 Dose: Not Given Documented By: BRAYDEN Non-Admin Reason: Nausea/Poor PO intake. aware. Lamotrigine (Lamotrigine 100 Mg Tablet) 200 mg PO BID [facility] Last Admin: 02/16/24 12:11 Dose: Not Given Documented By: BRAYDEN Non-Admin Reason: Nausea Lorazepam (Lorazepam 1 Mg Tablet) 1 mg PO TID PRN PRN Reason: Anxiety Magnesium Hydroxide (Milk Of Magnesia 30 Ml Oral.Susp) 30 ml PO DAILY PRN PRN Reason: Constipation Melatonin (Melatonin 3 Mg Tablet) 6 mg PO BEDTIME PRN PRN Reason: Insomnia Metoprolol Tartrate (Metoprolol Tartrate 25 Mg Tablet) 25 mg PO BID [facility]; Protocol Last Admin: 02/16/24 12:11 Dose: Not Given Documented By: BRAYDEN Non-Admin Reason: Nausea Midodrine (Midodrine Hcl 5 Mg Tablet) 5 mg PO DAILY [facility] Last Admin: 02/16/24 12:11 Dose: Not Given Documented By: BRAYDEN Non-Admin Reason: Nausea Ondansetron HCl (Ondansetron Hcl 4 Mg/2 Ml Vial) 4 mg IVPUSH Q4H PRN PRN Reason: Nausea and Vomiting Last Admin: 02/16/24 10:02 Dose: 4 mg Documented By: BRAYDEN Risperidone (Risperidone 2 Mg Tablet) 2 mg PO BID [facility] Last Admin: 02/16/24 12:11 Dose: Not Given Documented By: BRAYDEN Non-Admin Reason: Nausea Sodium Chloride (0.9 % Sodium Chloride Flush 3 Ml Syringe) 3 ml IVFLUSH QSHIFT [facility] Last Admin: 02/16/24 08:17 Dose: Not Given Documented By: BRAYDEN Non-Admin Reason: IV Running Zolpidem Tartrate (Zolpidem Tartrate 5 Mg Tablet) 10 mg PO BEDTIME [facility] Last Admin: 02/15/24 23:24 Dose: 10 mg Documented By: ABBY Labs 02/16/24 05:36 02/16/24 05:36 Labs: Laboratory Results - last 24 hr 02/15/24 02/15/24 02/16/24 16:06 20:52 05:36 MCV 80.8 MCH 27.3 MCHC 33.7 RDW 14.5 Plt Count 536 H MPV 8.8 L Immature Gran % (Auto) 0.3 Neut % (Auto) 70.6 Lymph % (Auto) 21.7 [place] % (Auto) 7.0 Eos % (Auto) 0.0 Baso % (Auto) 0.4 Lymph # (Auto) 2.6 [place] # (Auto) 0.8 Eos # (Auto) 0.0 Baso # (Auto) 0.1 Abs Immat Gran (auto) 0.04 H Absolute Neuts (auto) 8.5 H Absolute Nucleated RBC 0.000 Nucleated RBC % (auto) 0.0 Anion Gap 17 Estim Creat Clear Calc 85.0 Estimated GFR > 60 POC Glucose 156 H 145 H Random Glucose 197 H Calcium 8.8 Total Bilirubin 0.2 AST 13 ALT 12 Alkaline Phosphatase 124 H Total Protein 7.1 Albumin 3.9 02/16/24 02/16/24 07:44 11:15 MCV MCH MCHC RDW Plt Count MPV Immature Gran % (Auto) Neut % (Auto) Lymph % (Auto) [place] % (Auto) Eos % (Auto) Baso % (Auto) Lymph # (Auto) [place] # (Auto) Eos # (Auto) Baso # (Auto) Abs Immat Gran (auto) Absolute Neuts (auto) Absolute Nucleated RBC Nucleated RBC % (auto) Anion Gap Estim Creat Clear Calc Estimated GFR POC Glucose 179 H 151 H Random Glucose Calcium Total Bilirubin AST ALT Alkaline Phosphatase Total Protein Albumin Microbiology Microbiology Results: Microbiology 02/14/24 03:20 Blood Culture - Preliminary Blood - Venous No growth after 48 hours. 02/14/24 03:20 Blood Culture - Preliminary Blood - Venous No growth after 48 hours. Assessment and Plan (1) Acute UTI: Status: Acute (2) Diabetes mellitus type 1: Status: Acute Plan 48-year-old female with known history of type 1 diabetes on insulin pump and history of gastroparesis presents with dysuria symptoms and hypoglycemia secondary to a malfunctioning insulin pump. Was given D50 in the ER with good results. Urine with active sediment 1. Acute UTI -ceftriaxone (3) -blood cultures/urine cultures pending.. Negative. Urine mixed courtney -adjust therapies as indicated 2. Diabetes type 1 ... Per patient pump not functioning -lispro correctional scale -Lantus 20 units b.i.d. -acceptable control on current regimen. Patient will restart pump upon discharge 3. Diabetic gastroparesis -Zofran alternating with Reglan -volume repletion Lovenox Full code Patient will require ongoing hospitalization for IV antibiotics to treat acute UTI that has failed outpatient therapies (Macrobid) Quality Stroke Does the patient have a stroke diagnosis?: No VTE Prior VTE?: No VTE Risk Level:: Medical - moderate - high VTE Device Contraindication: Treatment Not Indicated VTE Drug Contraindication: N/A - Med Ordered
[2024-02-16] MEDS: oxyCODONE HCl Immed Release 5 MG TABLET 10 MG PO ×2 (14:07→20:18)
[2024-02-16 15:59] LABS: Appearance Urine Clear; Color Urine Yellow; Glucose Urine UA 250 mg/dL (Negative); Leukocyte Esterase Urine Small (1+) (Negative); Nitrite Urine Negative (Negative); PH 6.5 (5.0-9.0); Specific Gravity - Urine 1.015 (1.005-1.025); UMIC TRIGGER UACC YES; Urine Blood Moderate (2+) (Negative); Urine Ketones 40 mg/dL (Negative); Urine Protein 100 (2+) mg/dL (Neg-Trace)
[2024-02-16 16:07] LABS: Bacteria Urine None Seen (None Seen); Hyaline Casts Urine 0-2 /LPF (0-2); RBC Urine >20 /HPF (0-2); UACC Culture Trigger YES
[2024-02-16 16:32] LABS: Glucose, Whole Blood 189 mg/dL (60-115)
--- NOTE | 2024-02-16 16:45 | PC.NURSE ---
Patient voided at approximately 1535. Void unmeasured. Clean catch urine obtained and sent to lab. Urine clear and yellow. No complaints post-void. No abdominal distention present.
[2024-02-16] MEDS: Insulin Lispro 100 UNIT/ML 3 ML VIAL SUBCUT ×2 (17:21→20:11)
--- NOTE | 2024-02-16 18:46 | PC.NURSE ---
Dr. Mahan aware of elevated BP. Patient asymptomatic. No new orders at this time.
[2024-02-16 20:09] LABS: Glucose, Whole Blood 160 mg/dL (60-115)
[2024-02-16] MEDS: Insulin Glargine,Hum.rec.anlog 100 UNIT/ML 10 ML VIAL 20 UNIT SUBCUT (20:11)
[2024-02-16] MEDS: Metoprolol Tartrate 25 MG TABLET PO (20:17)
[2024-02-16] MEDS: risperiDONE 2 MG TABLET PO (20:18)
[2024-02-16] MEDS: lamoTRIgine 100 MG TABLET 200 MG PO (20:20)
[2024-02-16] MEDS: Zolpidem Tartrate 5 MG TABLET 10 MG PO (20:20)
[2024-02-16] MEDS: 0.9 % Sodium Chloride Flush 3 ML SYRINGE IVFLUSH (20:25)
--- NOTE | 2024-02-16 23:25 | PC.NURSE ---
Pt is voiding well, pt still feels lack of need to urinate, but is able to void when sitting in bathroom, last bladder scan post urination was 45 ml, pt tolerated well.
[2024-02-16] MEDS: LORazepam 1 MG TABLET PO (23:28)
[2024-02-17] MEDS: diphenhydrAMINE HCL 25 MG CAPSULE PO (00:05)
[2024-02-17] MEDS: oxyCODONE HCl Immed Release 5 MG TABLET 10 MG PO ×5 (03:08→20:00)
[2024-02-17] MEDS: ondansetron HCL 4 MG/2 ML VIAL IVPUSH ×5 (03:09→21:47)
[2024-02-17] MEDS: cefTRIAXone sodium 1 GM in 0.9 % Sodium Chloride 50 ML IV (03:14)
[2024-02-17 03:23] VITALS: BP 122/68; PULSE 93; RESP 16; TEMP 36; O2SAT 97
[2024-02-17 06:26] LABS: MANUAL DIFF FLAG NO
[2024-02-17 06:55] LABS: Basophils Absolute Auto 0.1 X10*3/uL (0.0-0.2); Basophils Percent Auto 0.5 % (0-2); Eosinophils Absolute Auto 0.1 X10*3/uL (0.0-0.4); Eosinophils Percent Auto 0.7 % (0-4); Hematocrit 29.8 % (37.0-47.0); Hemoglobin 10.1 g/dl (12.0-16.0); Imm Gran Abs Auto 0.04 X10*3/uL (0.00-0.03); Imm Gran Pct Auto 0.4 % (0.0-0.4); Lymphocytes Absolute Auto 4.1 X10*3/uL (1.2-4.9); Lymphocytes Percent Auto 39.1 % (20-40); Mean Corpuscular HGB Conc 33.9 g/dl (31.0-35.0); Mean Corpuscular Hemoglobin 27.6 pg (27.0-33.0); Mean Corpuscular Volume 81.4 fL (80.0-98.0); Mean Platelet Volume 8.8 fL (9.4-12.3); Monocytes Absolute Auto 0.9 X10*3/uL (0.1-1.2); Monocytes Percent Auto 8.6 % (2-11); Neutrophils Absolute Auto 5.4 x10*3/uL (2.0-8.3); Neutrophils Percent Auto 50.7 % (45-73); Platelet Count 484 X10*3/uL (160-400); Red Blood Count 3.66 X10*6/uL (4.20-5.50); Red Cell Distribution Width 14.5 % (11.0-16.0); White Blood Count 10.6 X10*3/uL (4.8-10.8)
[2024-02-17] MEDS: 0.9 % Sodium Chloride 1,000 ML 100 ML IVCONT ×2 (07:05→15:44)
[2024-02-17] MEDS: risperiDONE 2 MG TABLET PO ×2 (07:06→20:01)
[2024-02-17] MEDS: Midodrine HCl 5 MG TABLET PO (07:06)
[2024-02-17] MEDS: lamoTRIgine 100 MG TABLET 200 MG PO ×2 (07:06→20:01)
[2024-02-17] MEDS: Metoprolol Tartrate 25 MG TABLET PO ×2 (07:06→19:59)
[2024-02-17 07:25] LABS: Alanine Aminotransferase 10 U/L (0-31); Albumin Level 3.4 g/dL (3.5-5.0); Alkaline Phosphatase 103 U/L (39-117); Anion Gap 11 (12-20); Aspartate Amino Transferase 12 U/L (5-31); Bilirubin Total 0.3 mg/dL (0.0-1.0); Blood Urea Nitrogen 7 mg/dL (9-16); Calcium 8.3 mg/dL (8.4-10.2); Carbon Dioxide 29 mmol/L (22-29); Chloride 102 mmol/L (96-108); Creatinine Clr Calc Pharmacy 95.5; Estimated Glomerular Filt Rate > 60; Glucose Random 83 mg/dL (60-115); Potassium 2.7 mmol/L (3.3-5.1); Sodium 139 mmol/L (135-145); Total Protein 6.1 g/dL (6.5-8.0)
[2024-02-17 07:37] VITALS: BP 139/87; PULSE 105; RESP 18; TEMP 36.5; O2SAT 98
[2024-02-17] MEDS: Potassium Chloride/H20 10 MEQ/100 ML PIGGYBACK 100 MEQ IV ×4 (08:06→11:31)
[2024-02-17 08:08] LABS: Glucose, Whole Blood 73 mg/dL (60-115)
--- NOTE | 2024-02-17 10:35 | HO.PM.IMPN ---
Subjective Subjective Date of Service: 02/17/24 Interval History: Pain managed with only p.o. meds. Still very limited p.o. intake Review of Systems Denies chest pain Denies shortness of breath Admits to nausea denies vomiting diarrhea Denies fever chills Physical Exam Vital Signs: Vital Signs: Last Vital Signs Temp 97.7 F 02/17/24 07:37 Pulse 105 H 02/17/24 07:37 Resp 18 02/17/24 07:37 BP 139/87 02/17/24 07:37 Pulse Ox 98 02/17/24 07:37 O2 Del Method Room Air 02/17/24 07:37 O2 Flow Rate 96 02/14/24 11:47 BMI result Body Mass Index 28.2 Const: Other: Awake alert miserable appearing Resp: Other: Clear to auscultation bilaterally no rales rhonchi or wheezes Cardio: Other: No S4; positive S1-S2; no S3 murmurs rubs or gallops GI: Other: Soft quiet bowel sounds Extrem: Other: No edema bilateral Objective Data Active Medications Acetaminophen (Acetaminophen 325 Mg Tablet) 650 mg PO Q6H PRN PRN Reason: Pain, Mild (Pain Scale 1-3), fever or headache Albuterol Sulfate (Albuterol Sulfate 90 Mcg 8 Gm Inhaler) 1 puff INHALE Q4H PRN PRN Reason: for wheezing Calcium Carbonate (Calcium Carbonate 750 Mg Tab.Chew) 750 mg PO Q4H PRN PRN Reason: Heartburn Enoxaparin Sodium (Enoxaparin Sodium 40 Mg/0.4 Ml Syringe) 40 mg SUBCUT Q24H [facility] Last Admin: 02/17/24 08:07 Dose: Not Given Documented By: LUTHER Non-Admin Reason: Patient Refused Glucose (Glucose Gel 15 Gm Gel..Gram.) 15 gm PO Q15M PRN; Protocol PRN Reason: per Hypoglycemia Standing Ord. Dextrose (D10) 250 mls @ 750 mls/hr IV Q15M PRN; Protocol PRN Reason: per Hypoglycemia Standing Ord. Ceftriaxone Sodium 1 gm/ (Sodium Chloride) 50 mls @ 100 mls/hr IV Q24H [facility] Last Infusion: 02/17/24 04:21 Dose: Infused Documented By: ADIA Sodium Chloride (Ns) 1,000 mls @ 100 mls/hr IVCONT .Q10H [facility] Last Admin: 02/17/24 07:05 Dose: 100 mls/hr Documented By: JAGJIT Potassium Chloride (Potassium Chloride/H20) 10 meq in 100 mls @ 100 mls/hr IV Q1H [facility] Stop: 02/17/24 11:44 Last Admin: 02/17/24 10:16 Dose: 100 mls/hr Documented By: LUTHER Insulin Glargine (Insulin Glargine,Hum.Rec.Anlog 100 Unit/Ml 10 Ml Vial) 20 unit SUBCUT BID [facility] Last Admin: 02/17/24 08:12 Dose: Not Given Documented By: LUTHER Non-Admin Reason: No Insulin Coverage Insulin Human Lispro (Insulin Lispro 100 Unit/Ml 3 Ml Vial) 0 unit SUBCUT QIDACHS [facility]; Protocol Last Admin: 02/17/24 08:12 Dose: Not Given Documented By: LUTHER Non-Admin Reason: No Insulin Coverage Lamotrigine (Lamotrigine 100 Mg Tablet) 200 mg PO BID [facility] Last Admin: 02/17/24 07:06 Dose: 200 mg Documented By: JAGJIT Lorazepam (Lorazepam 1 Mg Tablet) 1 mg PO TID PRN PRN Reason: Anxiety Last Admin: 02/16/24 23:28 Dose: 1 mg Documented By: ADIA Magnesium Hydroxide (Milk Of Magnesia 30 Ml Oral.Susp) 30 ml PO DAILY PRN PRN Reason: Constipation Melatonin (Melatonin 3 Mg Tablet) 6 mg PO BEDTIME PRN PRN Reason: Insomnia Metoprolol Tartrate (Metoprolol Tartrate 25 Mg Tablet) 25 mg PO BID [facility]; Protocol Last Admin: 02/17/24 07:06 Dose: 25 mg Documented By: JAGJIT Midodrine (Midodrine Hcl 5 Mg Tablet) 5 mg PO DAILY [facility] Last Admin: 02/17/24 07:06 Dose: 5 mg Documented By: JAGJIT Ondansetron HCl (Ondansetron Hcl 4 Mg/2 Ml Vial) 4 mg IVPUSH Q4H PRN PRN Reason: Nausea and Vomiting Last Admin: 02/17/24 07:09 Dose: 4 mg Documented By: JAGJIT Oxycodone HCl (Oxycodone Hcl Immed Release 5 Mg Tablet) 10 mg PO Q4H PRN PRN Reason: Pain, Moderate(Pain Scale 4-6) Last Admin: 02/17/24 07:05 Dose: 10 mg Documented By: JAGJIT Risperidone (Risperidone 2 Mg Tablet) 2 mg PO BID [facility] Last Admin: 02/17/24 07:06 Dose: 2 mg Documented By: JAGJIT Sodium Chloride (0.9 % Sodium Chloride Flush 3 Ml Syringe) 3 ml IVFLUSH QSHIFT [facility] Last Admin: 02/17/24 07:06 Dose: Not Given Documented By: JAGJIT Non-Admin Reason: IV Running Zolpidem Tartrate (Zolpidem Tartrate 5 Mg Tablet) 10 mg PO BEDTIME [facility] Last Admin: 02/16/24 20:20 Dose: 10 mg Documented By: ASAV Labs 02/17/24 05:16 02/17/24 05:16 Labs: Laboratory Results - last 24 hr 02/16/24 02/16/24 02/16/24 11:15 15:38 16:27 MCV MCH MCHC RDW Plt Count MPV Immature Gran % (Auto) Neut % (Auto) Lymph % (Auto) [place] % (Auto) Eos % (Auto) Baso % (Auto) Lymph # (Auto) [place] # (Auto) Eos # (Auto) Baso # (Auto) Abs Immat Gran (auto) Absolute Neuts (auto) Absolute Nucleated RBC Nucleated RBC % (auto) Anion Gap Estim Creat Clear Calc Estimated GFR POC Glucose 151 H 189 H Random Glucose Calcium Total Bilirubin AST ALT Alkaline Phosphatase Total Protein Albumin Urine Color Yellow Urine Appearance Clear Urine pH 6.5 Ur Specific [place] 1.015 Urine Protein 100 (2+) H Urine Glucose (UA) 250 H Urine Ketones 40 Urine Blood Moderate (2+) H Urine Nitrite Negative Ur Leukocyte Esterase Small (1+) H Urine RBC >20 H Urine WBC 6-10 H Ur Squamous Epith Cells 3-5 Urine Bacteria None Seen Hyaline Casts 0-2 02/16/24 02/17/24 02/17/24 19:43 05:16 08:00 MCV 81.4 MCH 27.6 MCHC 33.9 RDW 14.5 Plt Count 484 H MPV 8.8 L Immature Gran % (Auto) 0.4 Neut % (Auto) 50.7 Lymph % (Auto) 39.1 [place] % (Auto) 8.6 Eos % (Auto) 0.7 Baso % (Auto) 0.5 Lymph # (Auto) 4.1 [place] # (Auto) 0.9 Eos # (Auto) 0.1 Baso # (Auto) 0.1 Abs Immat Gran (auto) 0.04 H Absolute Neuts (auto) 5.4 Absolute Nucleated RBC 0.000 Nucleated RBC % (auto) 0.0 Anion Gap 11 L Estim Creat Clear Calc 95.5 Estimated GFR > 60 POC Glucose 160 H 73 Random Glucose 83 Calcium 8.3 L Total Bilirubin 0.3 AST 12 ALT 10 Alkaline Phosphatase 103 Total Protein 6.1 L Albumin 3.4 L Urine Color Urine Appearance Urine pH Ur Specific [place] Urine Protein Urine Glucose (UA) Urine Ketones Urine Blood Urine Nitrite Ur Leukocyte Esterase Urine RBC Urine WBC Ur Squamous Epith Cells Urine Bacteria Hyaline Casts Assessment and Plan (1) Acute UTI: Status: Acute Plan 48-year-old female with known history of type 1 diabetes on insulin pump and history of gastroparesis presents with dysuria symptoms and hypoglycemia secondary to a malfunctioning insulin pump. Was given D50 in the ER with good results. Urine with active sediment 1. Acute UTI -ceftriaxone (4) -switch to Ceftin upon discharge 2. Diabetes type 1 ... Per patient pump not functioning -lispro correctional scale -Lantus 20 units b.i.d. -acceptable control on current regimen. Patient will restart pump upon discharge 3. Diabetic gastroparesis -Zofran alternating with Reglan -volume repletion Lovenox Full code Patient will require ongoing hospitalization for IV antibiotics to treat acute UTI that has failed outpatient therapies (Macrobid) Quality Stroke Does the patient have a stroke diagnosis?: No VTE Prior VTE?: No VTE Risk Level:: Medical - moderate - high VTE Device Contraindication: Treatment Not Indicated VTE Drug Contraindication: N/A - Med Ordered
--- NOTE | 2024-02-17 10:54 | P.CDIM_ITS ---
PROVIDER RESPONSE TEXT: To clarify, the appropriate diagnosis supported by the clinical indicators: Hypokalemia: resolved QUERY TEXT: PHYSICIAN'S DOCUMENTATION REQUEST Date of Query: 02/17/2024 10:21 AM EDT Patient Name: Yumiko Sena Admit Date: 02/14/2024 Dear Eliud Mahan DO, A review of the medical record indicates additional documentation may be needed. Please review below and update the documentation accordingly. Clinical Indicators: LABS: potassium 3.2 L 2.7 L Klor-con Based on the above, is there a diagnosis that correlates with these lab findings: Hypokalemia resolved, possible, probable Labs indicate a diagnosis of (please specify) Other (explain) Clinically unable to determine (explain) Thank you, Stacey Adams, CCS, CDIS Use of terms such as suspected, likely, concern for, or probable (associated with a specific diagnosi s that is being evaluated, monitored, or treated as if it exists) are acceptable and can be coded in the inpatient se tting, when documented at the time of discharge. Please use your independent medical judgment in providing your response. THIS QUERY IS PART OF THE PERMANENT MEDICAL RECORD
[2024-02-17 11:23] LABS: Glucose, Whole Blood 178 mg/dL (60-115)
[2024-02-17] MEDS: Insulin Lispro 100 UNIT/ML 3 ML VIAL SUBCUT ×2 (11:31→19:57)
[2024-02-17 16:10] LABS: Glucose, Whole Blood 142 mg/dL (60-115)
[2024-02-17 16:13] VITALS: BP 141/81; PULSE 103; RESP 20; TEMP 36.6; O2SAT 98
[2024-02-17 19:46] LABS: Glucose, Whole Blood 265 mg/dL (60-115)
[2024-02-17 19:53] VITALS: BP 159/84; PULSE 95; RESP 18; TEMP 36.2; O2SAT 99
[2024-02-17] MEDS: Insulin Glargine,Hum.rec.anlog 100 UNIT/ML 10 ML VIAL 20 UNIT SUBCUT (19:58)
[2024-02-17 19:59] VITALS: BP 159/84; PULSE 95
[2024-02-17] MEDS: Zolpidem Tartrate 5 MG TABLET 10 MG PO (20:00)
[2024-02-17] MEDS: Melatonin 3 MG TABLET 6 MG PO (23:02)
[2024-02-17] MEDS: LORazepam 1 MG TABLET PO (23:02)
[2024-02-17] MEDS: diphenhydrAMINE HCL 25 MG CAPSULE 50 MG PO (23:21)
[2024-02-18] MEDS: 0.9 % Sodium Chloride 1,000 ML 100 ML IVCONT ×2 (00:07→08:25)
[2024-02-18] MEDS: cefTRIAXone sodium 1 GM in 0.9 % Sodium Chloride 50 ML IV (02:22)
[2024-02-18 03:48] VITALS: BP 118/60; PULSE 88; RESP 18; TEMP 36.3; O2SAT 99
[2024-02-18 07:48] LABS: Glucose, Whole Blood 75 mg/dL (60-115)
[2024-02-18 08:14] VITALS: BP 133/63; PULSE 100; RESP 12; TEMP 37; O2SAT 98
[2024-02-18] MEDS: risperiDONE 2 MG TABLET PO (08:21)
[2024-02-18] MEDS: lamoTRIgine 100 MG TABLET 200 MG PO (08:21)
[2024-02-18] MEDS: ondansetron HCL 4 MG/2 ML VIAL IVPUSH ×2 (08:21→12:22)
[2024-02-18] MEDS: oxyCODONE HCl Immed Release 5 MG TABLET 10 MG PO ×2 (08:21→12:21)
[2024-02-18] MEDS: Midodrine HCl 5 MG TABLET PO (08:21)
[2024-02-18] MEDS: Metoprolol Tartrate 25 MG TABLET PO (08:21)
[2024-02-18 11:38] LABS: Glucose, Whole Blood 146 mg/dL (60-115)
[2024-02-18 11:43] VITALS: BP 132/75; PULSE 84
--- NOTE | 2024-02-18 12:10 | MHC.CM.PN ---
pt dcd home self care
--- NOTE | 2024-02-18 12:42 | P.DS_ITS ---
DS: Providers Provider Date of Service: 02/18/24 Date of admission: 02/14/24 09:28 Date of discharge: 02/18/24 Primary care physician: Yulisa Avila MD DS: Diagnosis Discharge Diagnosis (1) Acute UTI: Status: Acute DS: Summary Hospital Course Hospital Course: 8 yo female with PMH of pancreatitis, type 1 DM who's insulin pump was dislodged today, recurrent UTI, NSTEMI, anxiety, diabetic gastroparesis here with c/o lower abdominal pain all day and n/v unable to keep anything down. Her insulin pump also dislodged during EMS transfer. called 911 because she was lethargic. Patient states she is on antibiotic for UTI doesn't know name or duration. She denies diarrhea. No fevers reported. She has increased urinary frequency and dysuria MD elicited complaint: abdominal pain In the emergency room, given ceftriaxone 1 g along with an albuterol updraft and pain management with hydromorphone. She did receive some IV Zofran secondary to gastroparesis. [facility] Patient admitted to the general medical floor and maintained on ceftriaxone. Her insulin pump was stopped at her request and she was managed with Lantus and lispro sliding scale with good results. Urine culture did come back mixed courtney however patient had taken 2 days of antibiotics prior to culture. On the day of discharge her white count is normal and she is asking to be discharged ... I believe this to be medically appropriate. She will be discharged home to complete a course of oral Ceftin and will be given 14 oxycodone for abdominal pain along with Zofran. She will follow up with the PCP next available appointment Time Attestation Discharge Coordination Time (in mins): 35 Quality: Safe Use of Opioids Does Pt have an Active Cancer Diagnosis on the Problem List?: No Quality: Stroke Does the patient have a stroke diagnosis?: No Physical Exam Vital Signs: Vital Signs: Last Vital Signs Temp 98.6 F 02/18/24 08:14 Pulse 84 02/18/24 11:43 Resp 12 02/18/24 08:14 BP 132/75 02/18/24 11:43 Pulse Ox 98 02/18/24 08:14 O2 Del Method Room Air 02/18/24 08:14 O2 Flow Rate 96 02/14/24 11:47 BMI result Body Mass Index 28.2 Const: Other: Awake alert miserable appearing Resp: Other: Clear to auscultation bilaterally no rales rhonchi or wheezes Cardio: Other: No S4; positive S1-S2; no S3 murmurs rubs or gallops GI: Other: Soft quiet bowel sounds Extrem: Other: No edema bilateral DS: Data Data Completed and Pending Labs on day of discharge: Laboratory Results - last 24 hr 02/17/24 02/17/24 02/18/24 15:29 19:40 07:33 POC Glucose 142 H 265 H 75 02/18/24 11:30 POC Glucose 146 H Preliminary micro results at discharge 02/14/24 03:20 Blood Culture - Preliminary Blood - Venous No growth after 48 hours. 02/14/24 03:20 Blood Culture - Preliminary Blood - Venous No growth after 48 hours. Discharge Plan Discharge Anticipated Discharge Date/Time: 02/18/24 11:51 Patient Disposition: Home, Self-Care Discharge Diagnosis: Acute UTI Referrals: Yulisa Dyson MD [Primary Care Provider] - 1 Week Discharge Medications: New oxycodone 10 mg tablet 10 mg PO Q6H MDD 30 PRN (Reason: pain (scale score 4-6)) Qty: 14 0RF Rx Instructions: Partial Fill upon patient request. cefuroxime axetil 500 mg tablet 500 mg PO BID 5 Days Qty: 10 0RF ondansetron HCl 4 mg tablet 4 mg PO Q8H PRN (Reason: nausea and vomiting) Qty: 20 0RF Continued albuterol sulfate 90 mcg/actuation HFA aerosol inhaler 1 puff PO Q4H PRN (Reason: for wheezing) Qty: 8.5 2RF midodrine 5 mg tablet 5 mg PO DAILY Qty: 90 2RF metoprolol tartrate 25 mg tablet 25 mg PO BID Qty: 180 1RF insulin aspart U-100 [Novolog FlexPen U-100 Insulin] 100 unit/mL (3 mL) insulin pen 0 unit subcut DIRECTED Rx Instructions: INSULIN PUMP lorazepam 1 mg Tablet 1 mg PO TID PRN (Reason: Anxiety) lamotrigine 200 mg Tablet 200 mg PO BID zolpidem 10 mg Tablet 10 mg PO BEDTIME risperidone 2 mg tablet 2 mg PO BID ondansetron HCl 8 mg tablet 8 mg PO Q8H PRN (Reason: nausea and vomiting) Qty: 30 3RF Discontinued nitrofurantoin macrocrystal 100 mg capsule 100 mg PO BID 5 Days Qty: 10 0RF Rx Instructions: started on 02/11 for 5 days must administer with a meal/food Discharge Orders: Discharge Order (Routine); Ordered 02/18/24 Ordered By: Eliud Mahan Diet: Advance to usual diet Activity on Discharge: As tolerated Stand Alone Forms: Patient Portal Discharge page Print Language: Georgian Care Plan Goals: Resume all meds as taken prior to hospitalization Health Concerns: Resume your insulin pump and regimen as prior to hospitalization. Oxycodone has been added to your regimen take as needed for pain. Plan of Treatment: Advance diet slowly. Utilize Zofran for nausea Assessment: See discharge summary
== END 2024-02-18 14:59 | disposition home or self-care (01) | DRG 920 ==
LOC: HO.ED 07:41 → HO.EDOVER 09:33 → HO.S3 14:39
PROVIDERS: Admitting Provider Hospitalist; Emergency Provider Emergency Medicine; PCP Internal Medicine; Visit Provider Hospitalist
DX: T85.624A Displacement of insulin pump, initial encounter (principal); N39.0 Urinary tract infection, site not specified; E10.43 Type 1 diabetes mellitus with diabetic autonomic (poly)neuropathy; E10.649 Type 1 diabetes mellitus with hypoglycemia without coma; K31.84 Gastroparesis; F31.9 Bipolar disorder, unspecified; E87.6 Hypokalemia; R31.9 Hematuria, unspecified; E83.42 Hypomagnesemia; Z20.822 Contact with and (suspected) exposure to COVID-19; Z87.440 Personal history of urinary (tract) infections; Z87.891 Personal history of nicotine dependence; Z79.4 Long term (current) use of insulin; Z79.899 Other long term (current) drug therapy
CPT/HCPCS: 0241U; 36415; 71045; 74176; 80048; 80053; 80076; 81001; 81003; 82140; 82803; 82947; 83605; 83690; 83735; 83880; 84443; 84484; 85025; 87040; 87086; 93005; 99285; C1758; J0696; J0737; J1170; J1642; J1650; J2405; J3475; J3480; J7120

== ENCOUNTER → 2024-02-14 02:28 | Outpatient (BNV) | payer OTHER, SELFPAY | PROVIDERS: Admitting Provider Hospitalist; Emergency Provider Emergency Medicine; Visit Provider Internal Medicine Cardiovascular Disease | DX: R00.0 Tachycardia, unspecified (principal) | CPT/HCPCS: 93010 ==

== ENCOUNTER → 2024-02-14 09:28 | Outpatient (BNV) | payer OTHER, SELFPAY | PROVIDERS: Admitting Provider Hospitalist; Emergency Provider Emergency Medicine; Visit Provider Hospitalist | DX: N39.0 Urinary tract infection, site not specified (principal); T85.624A Displacement of insulin pump, initial encounter; E10.9 Type 1 diabetes mellitus without complications | CPT/HCPCS: 99223; 99232; 99239 ==

== ENCOUNTER 2024-02-24 17:11 | Outpatient (AMB) | payer OTHER, SELFPAY ==
--- NOTE | 2024-02-24 17:15 | MHC.PC.OV ---
Vital Signs 02/24/24 17:17 Height 5 ft 5 in Weight 171 lb BMI 28.5 BP 80/58 L Blood Pressure Location Lt brachial Position Sitting Intake Visit Reasons: [facility] [employer] Required: No Accompanied by: Spouse Allergies morphine [MORPHINE] Allergy (Intermediate, Verified 02/24/24 17:34) RASH, hives, hives mushroom Allergy (Intermediate, Verified 02/24/24 17:34) HIVES/RASH Sulfa (Sulfonamide Antibiotics) Allergy (Mild, Verified 02/24/24 17:34) Rash mushroom Allergy (Unknown, Uncoded 02/24/24 17:34) throat closes up/difficult breathing mushrooms Allergy (Unknown, Uncoded 02/24/24 17:34) anaphylaxis Medication List - Last Reconciled 02/24/24 by Yulisa Avila MD albuterol sulfate 90 mcg/actuation 1 puff PO Q4H PRN insulin aspart U-100 (Novolog FlexPen U-100 Insulin aspart) INSULIN PUMP lamotrigine 200 mg PO BID lorazepam 1 mg PO TID PRN metoprolol tartrate 25 mg PO BID midodrine 5 mg PO DAILY omeprazole 20 mg PO BID ondansetron HCl 8 mg PO Q8H PRN risperidone 2 mg PO BID zolpidem 10 mg PO BEDTIME Tobacco use date assessed: 02/24/24 Dental Screening Dental Screen Date: 02/24/24 Did you have a dental visit in the last 12 months?: No Did you have a dental problem in the last 6 months where you did not have access to dental care?: No Was dental information given to patient?: Patient has dentist HPI TCM TCM Information Date of Discharge 02/18/24 Discharged From [facility] HPI Comments History of Present Illness Details This is a 48-year-old female with diabetes mellitus type 1, bipolar disorder, GERD and idiopathic hypotension that comes today accompanied by for hospital discharge follow-up with discharge date 02/18/2024 due to urinary tract infection. Patient feels markedly improved but has noticed that has been having multiple urinary tract infections in which last 1 before this 1 was in November. Will start nitrofurantoin for UTI prophylaxis and will be referred to Urology. A1c slightly elevated but she does follows with endocrinology. Bipolar disorder follow by Psychiatry. GERD stable with PPIs. Blood pressure stable with midodrine once a day. [facility] Medical History (Updated 02/24/24 @ 20:03 by Yulisa Avila MD) Chronic hypertension Intractable cyclical vomiting with nausea Diabetes mellitus with gastroparesis Diabetic gastroparesis Herpes zoster Status post fall Recurrent UTI NSTEMI (non-ST elevated myocardial infarction) Diabetic gastroparesis Anxiety Bipolar 1 disorder Pancreatitis Gastroparesis Diabetes Surgical History History of cholecystectomy History of tonsillectomy History of ERCP H/O pyloroplasty History of appendectomy H/O: hysterectomy Social History Household Members: Spouse Housing: House Do you presently have visiting nurse or other home services: No Unable to assess alcohol history related to: Unknown Alcohol intake: never Comment: pt refused bed alarm Patient Tobacco Use Status: Former Tobacco user Tobacco use type: Cigarette e-Cigarette/Vaping Use: Never Used Second Hand Smoke Exposure: No Substance Use Type: Marijuana Advance Directives Date on File: 12/03/22 service: No Current occupational status: disabled Cognitive needs: No Hearing needs: No Vision needs: No Questionnaire PHQ-9 Over the last 2 weeks, how often have you been bothered by any of the following problems? 1. Little interest or pleasure in doing things: not at all 2. Feeling down, depressed, or hopeless: not at all 3. Trouble falling or staying asleep, or sleeping too much: not at all 4. Feeling tired or having little energy: not at all 5. Poor appetite or overeating: not at all 6. Feeling bad about yourself - or that you are a failure or have let yourself or your family down: not at all 7. Trouble concentrating on things, such as reading the newspaper or watching television: not at all 8. Moving or speaking so slowly that other people could have noticed. Or the opposite - being so fidgety or restless that you have been moving around a lot more than usual: not at all 9. Thoughts that you would be better off or of hurting yourself in some way: not at all Total score: 0 Depression Screening Interpretation: Negative Depression Screening Done: Yes 88507 - PHQ-9 Billing: Yes Source: Developed by Drs. Hamida Oden, Kumar Reynoso and colleagues, with an educational sophia from [employer]. Thrive Questionnaire Date Thrive assessed: 02/24/24 I am a: Patient What is your living situation today?: I have a steady place to live Within the past 12 months, did the food you bought not last and you didn't have the money to get more?: Never true Within the past 12 months, did you worry whether your food would run out before you got money to buy more?: Never true Do you have trouble paying for medicines?: No Do you have trouble getting transportation to medical appointments?: No Do you have trouble paying your heating and electricity bill?: No Do you have trouble taking care of your child, family member or friend?: No Do you have trouble with day-to-day activities such as bathing, preparing meals, shopping, managing finances, etc.?: No Are you currently unemployed and looking for a job?: No Are you interested in more education?: No Please select the resources that you would like help with: None Currently or been in a relationship where the following occur: No concerns reported THRIVE Score: 0 AUDIT C Alcohol Use Questionnaire (AUDIT-C) 1. How often do you have a drink containing alcohol?: Never Total Score: 0 Score Reviewed/Action Taken: No ANA-7 AMB Questionnaire ANA-7 Date NAA - 7 assessed: 02/24/24 Feeling nervous, anxious, or on edge: 0 = Not at all Not being able to stop or control worryin = Not at all Worrying too much about different things: 0 = Not at all Trouble relaxin = Not at all Being so restless that it is hard to sit still: 0 = Not at all Becoming easily annoyed or irritable: 0 = Not at all Feeling afraid as if something awful might happen: 0 = Not at all Total ANA-7 score (0-4 normal; 5-9 mild; 10-14 moderate; 15-21 severe): 0 Source: Developed by Hamida Marin, Kumar Reynoso and colleagues, with an educational sophia from [employer]. ANA-7 Assessment Billing ANA-7 Assessment Tool: ANA-7 Assessment 20658 Review of Systems Const All systems reviewed & are unremarkable except as noted in HPI and below Card Denies chest pain at rest, Denies chest pain with activity, Denies edema, Denies irregular heart rhythm, Denies claudication, Denies dyspnea, Denies dyspnea on exertion, Denies orthopnea, Denies paroxysmal nocturnal dyspnea and Denies slow heart rate Resp Denies cough, Denies dyspnea and Denies dyspnea on exertion GI Denies abdominal pain, Denies change in bowel habits, Denies excessive flatus, Denies nausea and Denies vomiting Denies urinary incontinence, Denies urinary hesitancy and Denies urinary urgency Physical exam (Primary Care) Vital Signs: Last Vital Signs BP 80/58 L 02/24/24 17:17 BMI result Body Mass Index 28.5 Tobacco/Smoking Status: Tobacco use Status Tobacco use date assessed 02/24/24 02/24/24 17:27 Patient Tobacco Use Status Former Tobacco user 02/24/24 17:15 Tobacco use type Cigarette 02/24/24 17:15 e-Cigarette/Vaping Use Never Used 02/24/24 17:15 PHQ-9: PHQ-9 Score PHQ-9: Total score 0 02/24/24 17:43 Depression Screening Interpretation: Negative Thrive Assessment: Date of Thrive Assessment Date Thrive assessed 02/24/24 02/24/24 17:27 Currently or been in a relationship where the following occur: No concerns reported Resp Effort & Inspection: normal respiratory effort Auscultation: clear to auscultation bilaterally Cardio Jugular venous distension: no JVD Rate: regular rate Rhythm: regular rhythm Heart sounds: S1 normal heart sound present and S2 normal heart sound present Extrem General: Yes full ROM Results AMB Hemoglobin A1c AMB Hemoglobin A1c 7.4 % Last Edit by YIMI Frederick on 02/24/24 17:43 Results Reviewed Results Reviewed: Laboratory Last Values Hgb A1c (Clinic) 7.4 % (4.0-6.0) H 02/24/24 17:29 Assessment and Plan Assessment & Plan (1) Hospital discharge follow-up: Code(s): Z09 - Encounter for follow-up examination after completed treatment for conditions other than malignant neoplasm Plan: Discharge date 02/18/2024 due to UTI. She completed antibiotics and feels markedly improved. (2) Recurrent UTI: Code(s): N39.0 - Urinary tract infection, site not specified Plan: Start nitrofurantoin daily. Referred to Urology. (3) Diabetes mellitus type 1: Code(s): E10.9 - Type 1 diabetes mellitus without complications Qualifiers: Diabetes mellitus complication status: with hyperglycemia Qualified Code(s): E10.65 - Type 1 diabetes mellitus with hyperglycemia Plan: Continue insulin pump. A1c goal is equal or less than 7%. Follow-up with endocrinology. (4) Bipolar 1 disorder: Code(s): F31.9 - Bipolar disorder, unspecified Plan: Continue Lamictal. Follow-up with psychiatry. (5) Idiopathic hypotension: Code(s): I95.0 - Idiopathic hypotension Plan: Continue midodrine. Orders: Orders AMB Hemoglobin A1c Today E10.65 - Type 1 diabetes mellitus with hyperglycemia Referrals Urology Referral N39.0 - Urinary tract infection, site not specified Medications: New nitrofurantoin macrocrystal must administer with a meal/food 50 mg PO BEDTIME 90 caps 1RF 90 days nitrofurantoin macrocrystal must administer with a meal/food 50 mg PO BEDTIME 90 days 90 caps 1RF Coding Level of Care Code TCM Mod MDM <= 7 Days Diagnoses Hospital discharge follow-up Z09 Recurrent UTI N39.0 Type 1 diabetes mellitus with hyperglycemia E10.65 Diabetes mellitus complication status: with hyperglycemia Bipolar 1 disorder F31.9 Idiopathic hypotension I95.0 Additional Codes ANA-7 Assessment Billing - ANA-7 Assessment Tool: ANA-7 Assessment 40560 ([id number]) Time Spent (min) 25
[2024-02-24 17:17] VITALS: BP 80/58; BMI 28.5
== END 2024-02-24 17:42 | disposition home or self-care (01) ==
PROVIDERS: PCP Internal Medicine; Visit Provider Internal Medicine
DX: E10.65 Type 1 diabetes mellitus with hyperglycemia (principal); F31.9 Bipolar disorder, unspecified; N39.0 Urinary tract infection, site not specified; I95.0 Idiopathic hypotension
CPT/HCPCS: 83036; 99495

== ENCOUNTER 2024-04-02 12:50 | Emergency (ER) | payer OTHER, SELFPAY ==
[2024-04-02] VITALS (9 sets, daily range): BP systolic 135–200; BP diastolic 58–110; PULSE 97–128; RESP 17–22; TEMP 36.6–37; O2SAT 95–100; BMI 28.4
--- NOTE | ~2024-04-02 | CT_ITS ---
EXAMINATION: CT ABDOMEN AND PELVIS WITHOUT CONTRAST CLINICAL INFORMATION: Bilateral flank pain. Recent history of hydro. COMPARISON: CT abdomen pelvis 02/14/2024. TECHNIQUE: Multidetector volumetric imaging was performed from the superior aspect of the liver through the pubic symphysis. Sagittal and coronal reformatted images were obtained on the technologist's workstation. This CT examination was performed using dose optimization techniques as appropriate, variously including the following: *Automated exposure control *Adjustment of mA and/or kV according to patient size (this includes techniques or standardized protocols for targeted exams where dose is matched to indication/reason for exam; i.e. extremities or head) *Use of iterative reconstruction technique DLP: 560 mGy-cm FINDINGS: LUNG BASES: The visualized lung bases are unremarkable. LIVER, GALLBLADDER, AND BILIARY TREE: The liver is normal in size, shape, and attenuation. No focal hepatic lesion or biliary ductal dilatation is present. The gallbladder has been surgically removed. PANCREAS: Unremarkable. SPLEEN: Unremarkable. ADRENAL GLANDS: Unremarkable. KIDNEYS AND URETERS: The kidneys are normal in size, shape, and attenuation. There are bilateral nonobstructive small radiopaque calculi. Largest measuring 3 mm in the lower pole right kidney and mid pole left kidney. No caliectasis or hydronephrosis seen. There are vascular calcifications in bilateral renal hilum. There is an extrarenal right kidney pelvis. There is bilateral perinephric stranding. BLADDER: There is mild thickening of anterior bladder wall. No radiopaque bladder calculi seen. GASTROINTESTINAL TRACT: There is scattered stool and gas seen throughout the colon without distention. Lung volumes are normal caliber. Appendix is not visualized. ABDOMINAL WALL: Unremarkable. LYMPH NODES: Normal. VASCULAR: Unremarkable. PELVIC VISCERA: Unremarkable. OSSEOUS STRUCTURES: No aggressive lytic or sclerotic process seen. CT/CT abdomen pelvis wo IV con IMPRESSION: 1. Bilateral nonobstructive radiopaque renal calculi. No caliectasis or hydronephrosis. 2. There is diffuse anterior bladder wall thickening with urachal thickening extending to the umbilicus 3. 3. Mild constipation. Fleischner guidelines were followed. Electronically signed by: Jack Santos MD 04/02/2024 07:37 PM EDT
--- NOTE | 2024-04-02 12:55 | ED.GENADULT ---
HPI - General Adult General Chief complaint: General Medical Stated complaint: WEAK,NAUSEA,? UTI,HIGH BP 200/110 PER EMS Time Seen by Provider: 04/02/24 12:55 Source: patient, EMS, RN notes reviewed and old records reviewed Mode of arrival: EMS Limitations: no limitations History of Present Illness ED Provider: SUMAYA MATOS PA-C HPI narrative: 48 year old female with pmhx significant for pancreatitis, type 1 diabetes, diabetic gastroparesis, GERD, recurrent UTI, NSTEMI, anxiety, bipolar 1 disorder presents to the ED today via EMS from home for evaluation of generalized weakness, bilateral flank pain, diffuse abdominal pain, nausea, vomiting, dysuria, foul smelling urine x3 days. Denies fever, chills, diarrhea, constipation. 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 Related Data Home Medications ?Medication ?Instructions ?Recorded ?Confirmed lamotrigine 200 mg tablet 200 mg PO BID 05/11/20 02/24/24 lorazepam 1 mg tablet 1 mg PO TID PRN Anxiety 05/11/20 02/24/24 zolpidem 10 mg tablet 10 mg PO BEDTIME 05/11/20 02/24/24 insulin aspart U-100 100 unit/mL 0 unit subcut DIRECTED 06/01/20 02/24/24 (3 mL) subcutaneous pen (Novolog FlexPen U-100 Insulin aspart) risperidone 2 mg tablet 2 mg PO BID 09/13/21 02/24/24 omeprazole 20 mg capsule,delayed 20 mg PO BID 02/24/24 02/24/24 release Previous Rx's ?Medication ?Instructions ?Recorded albuterol sulfate 90 mcg/actuation 1 puff PO Q4H PRN for wheezing 12/10/22 aerosol inhaler #8.5 grams midodrine 5 mg tablet 5 mg PO DAILY #90 tabs 06/30/23 metoprolol tartrate 25 mg tablet 25 mg PO BID #180 tabs 10/14/23 ondansetron HCl 8 mg tablet 8 mg PO Q8H PRN nausea and 10/27/23 vomiting #30 tabs nitrofurantoin macrocrystal 50 mg 50 mg PO BEDTIME 90 days #90 caps 02/24/24 capsule levofloxacin 500 mg tablet 500 mg PO DAILY 7 days #7 tabs 04/01/24 cephalexin 250 mg capsule 250 mg PO Q12H #10 caps 04/02/24 ondansetron 4 mg disintegrating 4 mg PO Q8H PRN nausea and 04/02/24 tablet vomiting #20 tabs Allergies Allergy/AdvReac Type Severity Reaction Status Date / Time morphine [MORPHINE] Allergy Intermediate RASH, Verified 04/02/24 13:07 hives, hives mushroom Allergy Intermediate HIVES/RASH Verified 04/02/24 13:07 Sulfa (Sulfonamide Allergy Mild Rash Verified 04/02/24 13:07 Antibiotics) mushroom Allergy Unknown throat Uncoded 04/02/24 13:07 closes up/difficult breathing mushrooms Allergy Unknown anaphylaxis Uncoded 04/02/24 13:07 Review of Systems Review of Systems: Constitutional: No fever, chills, fatigue, night sweats, weight changes ENT/Mouth: No ear pain, hearing loss, nasal congestion, sinus pain, rhinorrhea, sore throat Eyes: No eye pain, swelling, redness, vision changes, discharge Cardio: No chest pain, palpitations, DIAZ, orthopnea, peripheral edema Pulm: No SOB, cough, sputum, wheezing, dyspnea, hemoptysis GI: No hematemesis, diarrhea, constipation, hematochezia, melena, +abd pain, +N/V : No irregular bleeding, frequency, urgency, hesitancy, hematuria, urinary flow changes, urinary incontinence or retention, +flank pain, +dysuria, +foul smelling urine MSK: No back pain, neck pain, joint pain, myalgias Skin: No lesions, rashes Neuro: No weakness, numbness, paresthesias, LOC, dizziness, headache Psych: No anxiety/panic, depression, SI/HI, AH/VH All other systems reviewed and are negative. [facility] Past Medical History Attestation statement: The following information was validated with the patient. Source: old records reviewed and nursing notes reviewed Medical History Diabetic gastroparesis Acute UTI Diabetes mellitus type 1 Chronic hypertension Intractable cyclical vomiting with nausea Diabetes mellitus with gastroparesis Diabetic gastroparesis Herpes zoster Status post fall Recurrent UTI NSTEMI (non-ST elevated myocardial infarction) Diabetic gastroparesis Anxiety Bipolar 1 disorder Pancreatitis Gastroparesis Diabetes Surgical History History of cholecystectomy History of tonsillectomy History of ERCP H/O pyloroplasty History of appendectomy H/O: hysterectomy Social History Social History Household Members: Spouse Housing: House Do you presently have visiting nurse or other home services: No Unable to assess alcohol history related to: Unknown Alcohol intake: never Comment: pt refused bed alarm Patient Tobacco Use Status: Former Tobacco user Tobacco use type: Cigarette Smoked in Last 30 Days: No e-Cigarette/Vaping Use: Never Used Second Hand Smoke Exposure: No Use of substances other than those prescribed or required for medical reasons: Yes Substance Use Type: Marijuana Advance Directives: Yes Advance Directives on File: Yes Advance Directives Date on File: 12/03/22 Do you have a plan to hurt others: No Plan Patient : No service: No Current occupational status: disabled Cognitive needs: No Hearing needs: No Vision needs: No Physical Exam ED Vital Signs: Vital Signs - 24 hr 04/02/24 13:04 04/02/24 13:37 04/02/24 15:04 Temperature 97.9 F 98.3 F 98.2 F Pulse Rate 112 H 112 H 107 H Respiratory Rate 18 17 18 Blood Pressure 148/80 H 178/91 H 181/89 H Pulse Oximetry 100 100 95 Oxygen Delivery Method Room Air Room Air Room Air 04/02/24 15:42 04/02/24 15:50 04/02/24 18:40 Temperature 98.6 F Pulse Rate 97 106 H 113 H Respiratory Rate 18 18 20 Blood Pressure 176/97 H 172/95 H 183/83 H Pulse Oximetry 96 96 98 Oxygen Delivery Method Room Air Room Air Room Air 04/02/24 19:41 04/02/24 23:54 04/02/24 23:56 Temperature 97.9 F 98.6 F 98.6 F Pulse Rate 128 H 120 H 120 H Respiratory Rate 22 H 20 20 Blood Pressure 167/89 H 135/58 L 135/58 L Pulse Oximetry 98 98 98 Oxygen Delivery Method Room Air Room Air Room Air BMI result Body Mass Index 28.4 tachycardic, hypertensive General: ill/ pale appearing, diaphoretic, warm to the touch Skin: Warm, dry, intact. No rashes or lesions. Head: Normocephalic, atraumatic. EENT: Hearing is intact b/l. Conjunctiva clear. PERRLA. Moist mucous membranes.? Neck: Supple without LAD. FROM. Trachea midline.? Cardiac: Chest wall symmetric. RRR. No MRG. Lungs: Normal respiratory effort without accessory muscle use. CTA bilaterally. No rales, rhonchi, or wheezes.? Abdomen: abdomen soft, diffusely ttp with voluntary guarding, no rebound tenderness. normoactive bs. bilateral CVAT. Back: No midline spinous or paraspinal tenderness. No step off deformity. Ext: Upper and lower extremities atraumatic, without tenderness, deformity, swelling or erythema. Full ROM throughout. Neuro: AOx3. Normal speech. Strength 5/5 intact throughout. Sensation intact to light touch. NV intact distally. Psych: Appropriate mood and affect. Responds appropriately to questions. Course Course Course Narrative: 1455 -- CBC with leukocytosis to 17.1 with left shift. This may be secondary to multiple abscess vomiting however infection can not be ruled out. Normocytic anemia, appears to be baseline when compared to priors. Above transfusion threshold. Chemistry without acute electrolyte abnormality requiring intervention. No GEORGETTE. no anion gap. Random glucose 233. Lactic WNL at 1.5. > given elevated white count, tachycardia, and suspecte infection, sepsis suspected at this time. empiric zosyn ordered. blood cultures already obtained. Patient receiving 1 L of IV fluids at this time. > CT abdomen/pelvis pending. UA pending. 2100 -- CT abdomen showing bilateral non obstructing renal stones. mild constipation. diffuse thickening of bladder wall. UA pending. 2129 -- patient stable at the end of my shift. Sign out given to Ho LAROSE pending UA and disposition. Reevaluation(s) Reevaluation #1: Patient received in sign-out at change of shift pending urinalysis to evaluate for UTI. The patient is tachycardic to 120 which appears sinus on the monitor. The patient reports she has been worked up by Cardiology in the past for this and is currently taking metoprolol for it. Her urinalysis does show white cells, red cells with leukocyte esterase, no significant bacteria. Given the patient's symptoms, CT scan that shows anterior bladder wall thickening we will treat as UTI and she will follow up with her PCP. Time: 23:08 Medications Administered Discontinued Medications Generic Name Dose Route Start Last Admin Trade Name Nanci PRN Reason Stop Dose Admin Hydromorphone HCl 1 mg 04/02/24 13:52 04/02/24 14:05 Hydromorphone Hcl 1 Mg/Ml Syringe IVPUSH 04/02/24 13:53 1 mg ONCE ONE Administration Protocol Sodium Chloride 1,000 mls @ 999 mls/hr 04/02/24 13:30 04/02/24 15:17 Ns IV 04/02/24 14:30 Infused .Q1H1M RAISA Infusion Piperacillin Sod/Tazobactam 50 mls @ 100 mls/hr 04/02/24 14:54 04/02/24 15:45 Sod 3.375 gm/ Sodium Chloride IV 04/02/24 15:23 Infused ONCE ONE Infusion Ketorolac Tromethamine 15 mg 04/02/24 19:54 04/02/24 20:07 Ketorolac Tromethamine 15 Mg/Ml Vial IVPUSH 04/02/24 19:55 15 mg ONCE ONE Administration Ondansetron HCl 4 mg 04/02/24 13:23 04/02/24 14:05 Ondansetron Hcl 4 Mg/2 Ml Vial IVPUSH 04/02/24 13:24 4 mg ONCE ONE Administration Ondansetron HCl 4 mg 04/02/24 19:54 04/02/24 20:07 Ondansetron Hcl 4 Mg/2 Ml Vial IVPUSH 04/02/24 19:55 4 mg ONCE ONE Administration Medical Decision Making Medical Decision Making MDM Narrative: 48 year old female with pmhx significant for pancreatitis, type 1 diabetes, diabetic gastroparesis, GERD, recurrent UTI, NSTEMI, anxiety, bipolar 1 disorder presents to the ED today via EMS from home for evaluation of generalized weakness, bilateral flank pain, diffuse abdominal pain, nausea, vomiting, dysuria, foul smelling urine x3 days. Patient tachycardic to 1 follow up, hypertensive to 148/80. She was ill and pale appearing on my initial examination, diaphoretic. Groaning in pain. In obvious discomfort. She was warm to the touch. Her abdomen is diffusely tender to palpation with voluntary guarding. No rebound tenderness. Normoactive bowel sounds x4. There is bilateral CVAT. Differential diagnoses: UTI, pyelonephritis, diverticulitis, pyelonephritis, PID, TOA, appendicits. Abdominal exam without peritoneal signs. No evidence of acute abdomen at this time. Lower suspicion for acute hepatobiliary disease (including acute cholecystitis), acute infectious processes (pneumonia, hepatitis), vascular catastrophe, bowel obstruction or viscus perforation, ovarian cyst/ rupture/ torsion. Presentation not consistent with other acute, emergent causes of abdominal pain at this time. Plan: labs, UA, CT AP, pain control, fluids, serial reassessment Differential Diagnosis Differential Diagnoses: The differential diagnosis associated with the presentation includes As above Admission/Observation Consideration of admission/observation: Escalation of care including admission/observation considered Admission considered on presentation Lab Data MDM Lab Attestation statement: I reviewed the patient's lab results. As above 04/02/24 13:48 04/02/24 13:48 Labs: Lab Results 04/02/24 04/02/24 04/02/24 Range/Units 13:07 13:48 14:28 WBC 17.1 H (4.8-10.8) X10*3/uL RBC 4.22 (4.20-5.50) X10*6/uL Hgb 11.6 L (12.0-16.0) g/dl Hct 34.7 L (37.0-47.0) % MCV 82.2 (80.0-98.0) fL MCH 27.5 (27.0-33.0) pg MCHC 33.4 (31.0-35.0) g/dl RDW 15.5 (11.0-16.0) % Plt Count 552 H (160-400) X10*3/uL MPV 8.6 L (9.4-12.3) fL Immature Gran % (Auto) 0.5 H (0.0-0.4) % Neut % (Auto) 79.8 H (45-73) % Lymph % (Auto) 14.9 L (20-40) % [place] % (Auto) 3.9 (2-11) % Eos % (Auto) 0.4 (0-4) % Baso % (Auto) 0.5 (0-2) % Lymph # (Auto) 2.5 (1.2-4.9) X10*3/uL [place] # (Auto) 0.7 (0.1-1.2) X10*3/uL Eos # (Auto) 0.1 (0.0-0.4) X10*3/uL Baso # (Auto) 0.1 (0.0-0.2) X10*3/uL Abs Immat Gran (auto) 0.08 H (0.00-0.03) X10*3/uL Absolute Neuts (auto) 13.6 H (2.0-8.3) x10*3/uL Absolute Nucleated RBC 0.000 (0.0-0.012) X10*3/uL Nucleated RBC % (auto) 0.0 (0.0-0.2) /100WBC Hold Blue Top SEE NOTE Sodium 138 (135-145) mmol/L Potassium 3.7 D (3.3-5.1) mmol/L Chloride 99 (96-108) mmol/L Carbon Dioxide 25 (22-29) mmol/L Anion Gap 18 (12-20) BUN 9 (9-16) mg/dL Creatinine 0.95 (0.5-1.4) mg/dL Estim Creat Clear Calc 76.3 Estimated GFR > 60 POC Glucose 189 H (60-115) mg/dL Random Glucose 233 H (60-115) mg/dL Lactic Acid 1.9 (0.5-2.0) mmol/L Calcium 10.3 H D (8.4-10.2) mg/dL Magnesium 1.6 (1.6-2.6) mg/dL Total Bilirubin 0.3 (0.0-1.0) mg/dL AST 15 (5-31) U/L ALT 16 (0-31) U/L Alkaline Phosphatase 153 H (39-117) U/L Troponin I High Sens < 2.7 (<3.5-17.0) ng/L Total Protein 8.3 H (6.5-8.0) g/dL Albumin 4.5 (3.5-5.0) g/dL Lipase 6 L (8-78) U/L Urine Color Urine Appearance Urine pH (5.0-9.0) Ur Specific Andrews (1.005-1.025) Urine Protein (Neg-Trace) mg/dL Urine Glucose (UA) (Negative) mg/dL Urine Ketones (Negative) mg/dL Urine Blood (Negative) Urine Nitrite (Negative) Ur Leukocyte Esterase (Negative) Urine RBC (0-2) /HPF Urine WBC (0-5) /HPF Ur Squamous Epith Cells (0-2) /HPF Urine Bacteria (None Seen) Hyaline Casts (0-2) /LPF 04/02/24 Range/Units 22:27 WBC (4.8-10.8) X10*3/uL RBC (4.20-5.50) X10*6/uL Hgb (12.0-16.0) g/dl Hct (37.0-47.0) % MCV (80.0-98.0) fL MCH (27.0-33.0) pg MCHC (31.0-35.0) g/dl RDW (11.0-16.0) % Plt Count (160-400) X10*3/uL MPV (9.4-12.3) fL Immature Gran % (Auto) (0.0-0.4) % Neut % (Auto) (45-73) % Lymph % (Auto) (20-40) % [place] % (Auto) (2-11) % Eos % (Auto) (0-4) % Baso % (Auto) (0-2) % Lymph # (Auto) (1.2-4.9) X10*3/uL [place] # (Auto) (0.1-1.2) X10*3/uL Eos # (Auto) (0.0-0.4) X10*3/uL Baso # (Auto) (0.0-0.2) X10*3/uL Abs Immat Gran (auto) (0.00-0.03) X10*3/uL Absolute Neuts (auto) (2.0-8.3) x10*3/uL Absolute Nucleated RBC (0.0-0.012) X10*3/uL Nucleated RBC % (auto) (0.0-0.2) /100WBC Hold Blue Top Sodium (135-145) mmol/L Potassium (3.3-5.1) mmol/L Chloride (96-108) mmol/L Carbon Dioxide (22-29) mmol/L Anion Gap (12-20) BUN (9-16) mg/dL Creatinine (0.5-1.4) mg/dL Estim Creat Clear Calc Estimated GFR POC Glucose (60-115) mg/dL Random Glucose (60-115) mg/dL Lactic Acid (0.5-2.0) mmol/L Calcium (8.4-10.2) mg/dL Magnesium (1.6-2.6) mg/dL Total Bilirubin (0.0-1.0) mg/dL AST (5-31) U/L ALT (0-31) U/L Alkaline Phosphatase (39-117) U/L Troponin I High Sens (<3.5-17.0) ng/L Total Protein (6.5-8.0) g/dL Albumin (3.5-5.0) g/dL Lipase (8-78) U/L Urine Color Yellow Urine Appearance Clear Urine pH 7.0 (5.0-9.0) Ur Specific Andrews 1.015 (1.005-1.025) Urine Protein 100 (2+) H (Neg-Trace) mg/dL Urine Glucose (UA) >=1000 H (Negative) mg/dL Urine Ketones 80 (Negative) mg/dL Urine Blood Small (1+) H (Negative) Urine Nitrite Negative (Negative) Ur Leukocyte Esterase Trace H (Negative) Urine RBC 11-20 H (0-2) /HPF Urine WBC 11-20 H (0-5) /HPF Ur Squamous Epith Cells 0-2 (0-2) /HPF Urine Bacteria None Seen (None Seen) Hyaline Casts 0-2 (0-2) /LPF Independent Interpretation I performed an independent interpretation of an: EKG and CT Scan Interpretation: EKG showing sinus tachycardia with a rate of 115 beats per minute, QT 346, QTC 478, no acute ischemic changes or ST elevations. CT abdomen/ pelvis (02/14/24) showing bilateral renal stones, agree with radiologist's interpretation. CT abdomen/ pelvis today showing bilateral renal stones, agree with radiologist's interprtation. Radiology Impression Discussion of test interpretation with radiology: I have reviewed the radiologist's reading. Radiologist Impression: EXAMINATION: CT ABDOMEN AND PELVIS WITHOUT CONTRAST CLINICAL INFORMATION: Lower abdominal pain. COMPARISON: 06/18/2023 TECHNIQUE: Multidetector volumetric imaging was performed from the superior aspect of the liver through the pubic symphysis. Sagittal and coronal reformatted images were obtained on the technologist's workstation. This CT examination was performed using dose optimization techniques as appropriate, variously including the following: *Automated exposure control *Adjustment of mA and/or kV according to patient size (this includes techniques or standardized protocols for targeted exams where dose is matched to indication/reason for exam; i.e. extremities or head) *Use of iterative reconstruction technique DLP: 598 mGy-cm FINDINGS: LUNG BASES: The visualized lung bases are unremarkable. LIVER, GALLBLADDER, AND BILIARY TREE: Relative hypoattenuation of the hepatic parenchyma is consistent with steatosis. Liver is normal in size and contour. No focal hepatic lesions are identified. No biliary ductal dilatation. Status post cholecystectomy. PANCREAS: Pancreas is atrophic. No appreciable ductal dilatation. SPLEEN: Unremarkable. ADRENAL GLANDS: Unremarkable. KIDNEYS AND URETERS: The kidneys are normal in size, shape, and attenuation. Mild bilateral perinephric stranding. Mild bilateral hydroureteronephrosis. There are multiple small nonobstructing bilateral renal calculi measuring up to 3 mm in diameter at the left interpolar region and 2 mm in diameter in the right lower renal pole. No obstructing calculi are identified. No ureterolithiasis. BLADDER: Distended. No wall thickening. No bladder calculi. GASTROINTESTINAL TRACT: Stomach, small bowel, and colon are normal in caliber. No bowel wall thickening or surrounding inflammatory changes. Appendix is not seen, though there are no findings of acute appendicitis.. No intraperitoneal free fluid or free air. ABDOMINAL WALL: No significant hernia is appreciated. LYMPH NODES: Normal. VASCULAR: Atherosclerotic calcifications are present in the abdominal aorta, renal arteries, and SMA. No aneurysmal dilatation. PELVIC VISCERA: Uterus appears surgically absent. No adnexal lesions. OSSEOUS STRUCTURES: Unremarkable. CT/CT abdomen pelvis wo IV con IMPRESSION: 1. Mild bilateral hydroureteronephrosis and perinephric stranding. In the absence of obstructing calculi or other sources of ureteral obstruction, this is likely related to the distended urinary bladder.. Multiple small nonobstructing bilateral renal calculi. 2. Hepatic steatosis. Fleischner guidelines were followed. EXAMINATION: CT ABDOMEN AND PELVIS WITHOUT CONTRAST CLINICAL INFORMATION: Bilateral flank pain. Recent history of hydro. COMPARISON: CT abdomen pelvis 02/14/2024. TECHNIQUE: Multidetector volumetric imaging was performed from the superior aspect of the liver through the pubic symphysis. Sagittal and coronal reformatted images were obtained on the technologist's workstation. This CT examination was performed using dose optimization techniques as appropriate, variously including the following: *Automated exposure control *Adjustment of mA and/or kV according to patient size (this includes techniques or standardized protocols for targeted exams where dose is matched to indication/reason for exam; i.e. extremities or head) *Use of iterative reconstruction technique DLP: 560 mGy-cm FINDINGS: LUNG BASES: The visualized lung bases are unremarkable. LIVER, GALLBLADDER, AND BILIARY TREE: The liver is normal in size, shape, and attenuation. No focal hepatic lesion or biliary ductal dilatation is present. The gallbladder has been surgically removed. PANCREAS: Unremarkable. SPLEEN: Unremarkable. ADRENAL GLANDS: Unremarkable. KIDNEYS AND URETERS: The kidneys are normal in size, shape, and attenuation. There are bilateral nonobstructive small radiopaque calculi. Largest measuring 3 mm in the lower pole right kidney and mid pole left kidney. No caliectasis or hydronephrosis seen. There are vascular calcifications in bilateral renal hilum. There is an extrarenal right kidney pelvis. There is bilateral perinephric stranding. BLADDER: There is mild thickening of anterior bladder wall. No radiopaque bladder calculi seen. GASTROINTESTINAL TRACT: There is scattered stool and gas seen throughout the colon without distention. Lung volumes are normal caliber. Appendix is not visualized. ABDOMINAL WALL: Unremarkable. LYMPH NODES: Normal. VASCULAR: Unremarkable. PELVIC VISCERA: Unremarkable. OSSEOUS STRUCTURES: No aggressive lytic or sclerotic process seen. CT/CT abdomen pelvis wo IV con IMPRESSION: 1. Bilateral nonobstructive radiopaque renal calculi. No caliectasis or hydronephrosis. 2. There is diffuse anterior bladder wall thickening with urachal thickening extending to the umbilicus 3. 3. Mild constipation. Fleischner guidelines were followed. Electronically signed by: Jack Dainelle MD 04/02/2024 07:37 PM EDT RP Independent Historian Clinical information obtained from an independent historian. History obtained from or confirmed by: EMS External Record Review External record reviewed: Inpatient record, Office record, Outpatient record, Prior outpatient labs, Prior outpatient radiology, Primary care record and Outside ED record Prescription Management I considered prescription management with: Pain Medication and Antibiotic Chronic Conditions Patient?s care impacted by: Diabetes and Hypertension Social Determinants Patient?s care significantly limited by Social Determinants of Health including: Other Social Determinant of Health Critical Care Time Critical Care Time Critical Care Time: Yes Total Critical Care Time: 34 Attestation: Critical care time in the amount of 34 minutes has been provided to the patient in terms of direct patient care, frequent reevaluation on IV diaudid, review and interpretation of medical data and results, and management of potentially life-threatening conditions. This is all outside of any medical procedures. Discharge Plan Discharge Clinical Impression: UTI (urinary tract infection), Abdominal pain Patient Disposition: Home, Self-Care Instructions: Urinary Tract Infection in Women (ED) Additional Instructions: Take cephalexin twice daily for the next 5 days Drink lots of fluids Use Zofran as needed for nausea and vomiting Follow-up with your primary doctor Return for new or worsening symptoms Prescriptions: New cephalexin 250 mg capsule 250 mg PO Q12H Qty: 10 0RF ondansetron 4 mg tablet,disintegrating 4 mg PO Q8H PRN (Reason: nausea and vomiting) Qty: 20 0RF No Action albuterol sulfate 90 mcg/actuation HFA aerosol inhaler 1 puff PO Q4H PRN (Reason: for wheezing) Qty: 8.5 2RF midodrine 5 mg tablet 5 mg PO DAILY Qty: 90 2RF metoprolol tartrate 25 mg tablet 25 mg PO BID Qty: 180 1RF levofloxacin 500 mg tablet 500 mg PO DAILY 7 Days Qty: 7 0RF insulin aspart U-100 [Novolog FlexPen U-100 Insulin] 100 unit/mL (3 mL) insulin pen 0 unit subcut DIRECTED Rx Instructions: INSULIN PUMP lorazepam 1 mg Tablet 1 mg PO TID PRN (Reason: Anxiety) lamotrigine 200 mg Tablet 200 mg PO BID zolpidem 10 mg Tablet 10 mg PO BEDTIME risperidone 2 mg tablet 2 mg PO BID ondansetron HCl 8 mg tablet 8 mg PO Q8H PRN (Reason: nausea and vomiting) Qty: 30 3RF omeprazole 20 mg capsule,delayed release(DR/EC) 20 mg PO BID nitrofurantoin macrocrystal 50 mg capsule 50 mg PO BEDTIME 90 Days Qty: 90 1RF Rx Instructions: must administer with a meal/food Interventions: ED Discharge Assessment Last Done: 04/02/24 23:56 Discharge Date/Time: 04/02/24 23:57 Print Language: Mozambican
[2024-04-02 13:11] LABS: Glucose, Whole Blood 189 mg/dL (60-115)
--- NOTE | 2024-04-02 13:29 | ECG_ITS ---
Test Reason : TACHYCARDIA Blood Pressure : / mmHG Vent. Rate : 115 BPM Atrial Rate : 115 BPM P-R Int : 134 ms QRS Dur : 080 ms QT Int : 346 ms P-R-T Axes : 061 034 025 degrees QTc Int : 478 ms Sinus tachycardia Low voltage QRS Borderline ECG When compared with ECG of 14-FEB-2024 02:35, Heart rate has decreased Referred By: Deepthi Zavala Electronically Signed By:FACUNDO NUÑEZ
[2024-04-02 13:55] LABS: MANUAL DIFF FLAG NO
[2024-04-02 13:57] LABS: Basophils Absolute Auto 0.1 X10*3/uL (0.0-0.2); Basophils Percent Auto 0.5 % (0-2); Eosinophils Absolute Auto 0.1 X10*3/uL (0.0-0.4); Eosinophils Percent Auto 0.4 % (0-4); Hematocrit 34.7 % (37.0-47.0); Hemoglobin 11.6 g/dl (12.0-16.0); Imm Gran Abs Auto 0.08 X10*3/uL (0.00-0.03); Imm Gran Pct Auto 0.5 % (0.0-0.4); Lymphocytes Absolute Auto 2.5 X10*3/uL (1.2-4.9); Lymphocytes Percent Auto 14.9 % (20-40); Mean Corpuscular HGB Conc 33.4 g/dl (31.0-35.0); Mean Corpuscular Hemoglobin 27.5 pg (27.0-33.0); Mean Corpuscular Volume 82.2 fL (80.0-98.0); Mean Platelet Volume 8.6 fL (9.4-12.3); Monocytes Absolute Auto 0.7 X10*3/uL (0.1-1.2); Monocytes Percent Auto 3.9 % (2-11); Neutrophils Absolute Auto 13.6 x10*3/uL (2.0-8.3); Neutrophils Percent Auto 79.8 % (45-73); Platelet Count 552 X10*3/uL (160-400); Red Blood Count 4.22 X10*6/uL (4.20-5.50); Red Cell Distribution Width 15.5 % (11.0-16.0); White Blood Count 17.1 X10*3/uL (4.8-10.8)
[2024-04-02] MEDS: ondansetron HCL 4 MG/2 ML VIAL IVPUSH ×2 (14:05→20:07)
[2024-04-02] MEDS: 0.9 % Sodium Chloride 1,000 ML 999 ML IV (14:05)
[2024-04-02] MEDS: HYDROmorphone HCl 1 MG/ML SYRINGE IVPUSH (14:05)
[2024-04-02 14:06] LABS: Lactic Acid 1.9 mmol/L (0.5-2.0)
[2024-04-02 14:11] LABS: Alanine Aminotransferase 16 U/L (0-31); Albumin Level 4.5 g/dL (3.5-5.0); Alkaline Phosphatase 153 U/L (39-117); Anion Gap 18 (12-20); Aspartate Amino Transferase 15 U/L (5-31); Bilirubin Total 0.3 mg/dL (0.0-1.0); Blood Urea Nitrogen 9 mg/dL (9-16); Calcium 10.3 mg/dL (8.4-10.2); Carbon Dioxide 25 mmol/L (22-29); Chloride 99 mmol/L (96-108); Creatinine Clr Calc Pharmacy 76.3; Estimated Glomerular Filt Rate > 60; Glucose Random 233 mg/dL (60-115); Lipase 6 U/L (8-78); Magnesium 1.6 mg/dL (1.6-2.6); Potassium 3.7 mmol/L (3.3-5.1); Sodium 138 mmol/L (135-145); Total Protein 8.3 g/dL (6.5-8.0)
[2024-04-02 15:00] LABS: Troponin-I High Sensitivity < 2.7 ng/L (<3.5-17.0)
[2024-04-02] MEDS: Piperacillin Sodium/Tazobactam 3.375 GM in 0.9 % Sodium Chloride 50 ML IV (15:15)
--- NOTE | 2024-04-02 19:50 | PC.NURSE ---
this rn assumed care of pt, pt a&ox4, respirations even and unlabored. pt reporting 10/10 pain as well as nausea. provider aware.
[2024-04-02] MEDS: Ketorolac Tromethamine 15 MG/ML VIAL IVPUSH (20:07)
[2024-04-02 22:37] LABS: Appearance Urine Clear; Color Urine Yellow; Glucose Urine UA >=1000 mg/dL (Negative); Leukocyte Esterase Urine Trace (Negative); Nitrite Urine Negative (Negative); Specific Gravity - Urine 1.015 (1.005-1.025); UMIC TRIGGER UACC YES; Urine Blood Small (1+) (Negative); Urine Ketones 80 mg/dL (Negative); Urine Protein 100 (2+) mg/dL (Neg-Trace)
[2024-04-02 23:00] LABS: Bacteria Urine None Seen (None Seen); Hyaline Casts Urine 0-2 /LPF (0-2); Squamous Epithelial Cell Urine 0-2 /HPF (0-2); UACC Culture Trigger YES
--- NOTE | 2024-04-02 23:50 | PC.NURSE ---
port de-accessed at this time.
--- NOTE | 2024-04-02 23:56 | PC.NURSE ---
pt contacted for transportation at this time, pt ambulated with steady gait to waiting room
== END 2024-04-02 23:57 | disposition home or self-care (01) ==
PROVIDERS: Physician Assistant Medical; Emergency Provider Emergency Medicine; PCP Internal Medicine
DX: N39.0 Urinary tract infection, site not specified (principal); R53.1 Weakness; R10.30 Lower abdominal pain, unspecified; R00.0 Tachycardia, unspecified; E10.9 Type 1 diabetes mellitus without complications; I10 Essential (primary) hypertension; Z79.4 Long term (current) use of insulin; Z87.891 Personal history of nicotine dependence
CPT/HCPCS: 36415; 74176; 80053; 81001; 82947; 83605; 83690; 83735; 84484; 85025; 87040; 87086; 93005; 96361; 96365; 96375; 96376; 99285; J1170; J1885; J2405; J2543

== ENCOUNTER 2024-04-19 03:15 | Inpatient (IN) | payer OTHER, SELFPAY ==
[2024-04-19] VITALS (10 sets, daily range): BP systolic 102–177; BP diastolic 58–98; PULSE 72–131; RESP 14–19; TEMP 36.2–37.6; O2SAT 96–98; BMI 29.1; BMI 28.2
--- NOTE | ~2024-04-19 | CT_ITS ---
EXAMINATION: CT ABDOMEN AND PELVIS WITHOUT CONTRAST CLINICAL INFORMATION: Abdominal pain. Evaluate for stones, colitis. COMPARISON: Multiple priors, most recent CT abdomen/pelvis dated 04/02/2024. TECHNIQUE: Multidetector volumetric imaging was performed from the superior aspect of the liver through the pubic symphysis. Sagittal and coronal reformatted images were obtained on the technologist's workstation. This CT examination was performed using dose optimization techniques as appropriate, variously including the following: *Automated exposure control *Adjustment of mA and/or kV according to patient size (this includes techniques or standardized protocols for targeted exams where dose is matched to indication/reason for exam; i.e. extremities or head) *Use of iterative reconstruction technique DLP: 511 mGy-cm FINDINGS: LUNG BASES: The visualized lung bases are unremarkable. LIVER, GALLBLADDER, AND BILIARY TREE: The liver is normal in size and shape. Mild parenchymal hypoattenuation, consistent with steatosis. No focal hepatic lesion or biliary ductal dilatation is present. Status post cholecystectomy. PANCREAS: Atrophic. SPLEEN: Unremarkable. ADRENAL GLANDS: Unremarkable. KIDNEYS AND URETERS: The kidneys are normal in size, shape, and attenuation. Bilateral renal calcifications are unchanged and appear largely vascular. No new renal or ureteral stone. No hydronephrosis or hydroureter. Nonspecific bilateral perinephric stranding is unchanged. No new inflammatory change. BLADDER: Dorsal bladder wall thickening and linear tissue extending in the region of the urachus is unchanged. No new wall thickening or inflammatory change. No soft tissue mass. No associated calcification. GASTROINTESTINAL TRACT: No small or large bowel obstruction. No bowel wall thickening or inflammatory change. Appendix is not identified and may indicate prior appendectomy. No right lower quadrant inflammatory change. PERITONEAL CAVITY: No intra-abdominal free air or free fluid. No intra-abdominal mass or organized fluid collection/abscess formation. ABDOMINAL WALL: No significant hernia is appreciated. LYMPH NODES: No lymphadenopathy. VASCULAR: No abdominal aortic dilatation. Atherosclerotic calcifications. Phleboliths within the pelvis. PELVIC VISCERA: Uterus appears surgically absent. OSSEOUS STRUCTURES: Unremarkable. CT/CT abdomen pelvis wo IV con IMPRESSION: 1. No acute intra-abdominal or intrapelvic findings to explain the patient's pain. 2. No renal or ureteral stone. No hydronephrosis or hydroureter. Unremarkable urinary bladder. 3. No small or large bowel obstruction. No bowel wall thickening or inflammatory change. Fleischner guidelines were followed. Electronically signed by: Dominic Mccall MD 04/20/2024 01:35 PM EDT RP
[2024-04-19 03:01] LABS: Glucose, Whole Blood 357 mg/dL (60-115)
--- NOTE | 2024-04-19 03:05 | ED.ABDPAIN ---
HPI - Abdominal Pain General Chief Complaint: Nausea/Vomiting/Diarrhea Stated Complaint: hyperglycemia Time Seen by Provider: 04/19/24 03:00 Source: patient Mode of arrival: EMS Limitations: no limitations History of Present Illness ED Provider: Dr. Gigi Vizcarra HPI narrative: 48-year-old female with PMH of pancreatitis, diabetes mellitus-type 1, DKA treated with insulin pump, recurrent UTI, NSTEMI, anxiety, diabetic gastroparesis who presents emergency department for evaluation of abdominal pain, nausea and vomiting. She states that her symptoms started yesterday morning and she has had persistent vomiting and has not been able to eat or drink. She also has abdominal pain. She points to her epigastric area and describes the pain is a severe, dull pain which is been constant in his 04/23. She states she has had similar presentations in the past when she has had gastroparesis or diabetic ketoacidosis. Patient was hospitalized recently from 02/14/2024 until 02/18/2024 for lethargy, urinary tract infection (culture grew mixed courtney), gastroparesis and diabetes mellitus. Related Data Home Medications ?Medication ?Instructions ?Recorded ?Confirmed lamotrigine 200 mg tablet 200 mg PO BID 05/11/20 02/24/24 lorazepam 1 mg tablet 1 mg PO TID PRN Anxiety 05/11/20 02/24/24 zolpidem 10 mg tablet 10 mg PO BEDTIME 05/11/20 02/24/24 insulin aspart U-100 100 unit/mL 0 unit subcut DIRECTED 06/01/20 02/24/24 (3 mL) subcutaneous pen (Novolog FlexPen U-100 Insulin aspart) risperidone 2 mg tablet 2 mg PO BID 09/13/21 02/24/24 omeprazole 20 mg capsule,delayed 20 mg PO BID 02/24/24 02/24/24 release Previous Rx's ?Medication ?Instructions ?Recorded albuterol sulfate 90 mcg/actuation 1 puff PO Q4H PRN for wheezing 12/10/22 aerosol inhaler #8.5 grams midodrine 5 mg tablet 5 mg PO DAILY #90 tabs 06/30/23 ondansetron HCl 8 mg tablet 8 mg PO Q8H PRN nausea and 10/27/23 vomiting #30 tabs nitrofurantoin macrocrystal 50 mg 50 mg PO BEDTIME 90 days #90 caps 02/24/24 capsule levofloxacin 500 mg tablet 500 mg PO DAILY 7 days #7 tabs 04/01/24 cephalexin 250 mg capsule 250 mg PO Q12H #10 caps 04/02/24 ondansetron 4 mg disintegrating 4 mg PO Q8H PRN nausea and 04/02/24 tablet vomiting #20 tabs metoprolol tartrate 25 mg tablet 25 mg PO BID #180 tabs 04/12/24 Allergies Allergy/AdvReac Type Severity Reaction Status Date / Time morphine [MORPHINE] Allergy Intermediate RASH, Verified 04/19/24 03:45 hives, hives mushroom Allergy Intermediate HIVES/RASH Verified 04/19/24 03:45 Sulfa (Sulfonamide Allergy Mild Rash Verified 04/19/24 03:45 Antibiotics) mushroom Allergy Unknown throat Uncoded 04/19/24 03:45 closes up/difficult breathing mushrooms Allergy Unknown anaphylaxis Uncoded 04/19/24 03:45 Review of Systems Review of Systems Yes all other systems are reviewed and are negative [facility] Past Medical History Medical History Diabetic gastroparesis Acute UTI Diabetes mellitus type 1 Chronic hypertension Intractable cyclical vomiting with nausea Diabetes mellitus with gastroparesis Diabetic gastroparesis Herpes zoster Status post fall Recurrent UTI NSTEMI (non-ST elevated myocardial infarction) Diabetic gastroparesis Anxiety Bipolar 1 disorder Pancreatitis Gastroparesis Diabetes Surgical History History of cholecystectomy History of tonsillectomy History of ERCP H/O pyloroplasty History of appendectomy H/O: hysterectomy Social History Social History Household Members: Spouse Housing: House Do you presently have visiting nurse or other home services: No Unable to assess alcohol history related to: Unknown Alcohol intake: never Comment: pt refused bed alarm Patient Tobacco Use Status: Former Tobacco user Tobacco use type: Cigarette e-Cigarette/Vaping Use: Never Used Second Hand Smoke Exposure: No Substance Use Type: Marijuana Advance Directives: No Advance Directives Information Provided: No Advance Directives Date on File: 12/03/22 Do you have a plan to hurt others: No Plan service: No Current occupational status: disabled Cognitive needs: No Hearing needs: No Vision needs: No Physical Exam ED Vital Signs: Vital Signs - 24 hr 04/19/24 03:43 04/19/24 05:35 Temperature 98.2 F 98.4 F Pulse Rate 72 131 H Respiratory Rate 18 17 Blood Pressure 155/88 H 169/87 H Pulse Oximetry 96 98 Oxygen Delivery Method Room Air Room Air BMI result Body Mass Index 29.1 Exam: General: Awake, alert, appears to be in distress secondary to her abdominal pain nausea and vomiting Head: Normocephalic, atraumatic EENT: PERRL, Lids normal, sclera normal, conjunctiva normal, nose normal , ears normal, throat without erythema or exudates Neck: Supple, no adenopathy Lung: breath sounds symmetric, no wheezing, rales or rhonchi Chest: symmetric movement, nontender Heart: regular rate and rhythm, normal S1, S2 no murmurs or rubs Abdomen: soft, moderate epigastric tenderness, nondistended, normal bowel sounds Back: Moderate bilateral CVA tenderness Extremities: no deformities, moves all extremities symmetrically Neuro : Moves all extremities, normal speech, cranial nerves intact Medical Decision Making Medical Decision Making MDM Narrative: 48-year-old female with PMH of pancreatitis, diabetes mellitus-type 1, DKA treated with insulin pump, recurrent UTI, NSTEMI, anxiety, diabetic gastroparesis who presents emergency department for evaluation of abdominal pain, nausea and vomiting with symptoms starting yesterday morning and getting progressively worse prior to coming to the emergency department. Patient was not been able to hold down food or fluid. She states that her abdominal pain is 10/10 in his similar to pain that she has had in the past with gastroparesis and diabetic ketoacidosis. Physical examination revealed that she was in distress secondary to abdominal pain, nausea and vomiting. Patient did have epigastric tenderness. Differential diagnosis: ?Includes but is not limited to hyperglycemia, diabetic ketoacidosis, gastroparesis, infectious process, dehydration, volume depletion Patient was initially treated with the following: Port-A-Cath accessed by nurse, normal saline IV x2 L, Dilaudid 1 mg IV and Zofran 4 mg IV Course: 05:28 My interpretation patient's laboratory evaluation as follows: WBC elevated 13,500 with a left shift 87 neutrophils and 9.7 lymphocytes. Normocytic anemia with an H&H of 12 and 35. Platelet count elevated 616,000-she has had similar platelet count elevations in the past.. CMP did reveal a low bicarb of 18. Elevated glucose 357. Elevated anion gap of 25. Patient's venous blood gas pH of 7.52 with a bicarb of 23 which suggested the patient was not in diabetic ketoacidosis and your symptoms are more likely to be caused by her gastroparesis. Patient's beta hydroxy butyrate was elevated 1.69. The patient did feel better after the above treatment. The patient does have an insulin pump which is probably kept her out of diabetic ketoacidosis. I did discuss admission over tiger text with the covering hospitalist, Dr. Ryan Bishop. 06:45 Patient's point of care glucose came down to 295. Patient states that her pain is improved but she still is having significant abdominal discomfort therefore I ordered Dilaudid 0.5 mg IV. The patient has not completed her 2 L of normal saline. I will repeat her BNP and venous blood gas. Admission/Observation Consideration of admission/observation: Escalation of care including admission/observation considered (Yes) Consult Healthcare Provider Management of the patient was discussed with: Hospitalist Lab Data MDM Lab Attestation statement: I reviewed the patient's lab results. 04/19/24 03:14 04/19/24 03:14 Labs: Lab Results 04/19/24 04/19/24 04/19/24 Range/Units 02:54 03:14 03:22 WBC 13.5 H (4.8-10.8) X10*3/uL RBC 4.41 (4.20-5.50) X10*6/uL Hgb 12.0 (12.0-16.0) g/dl Hct 35.5 L (37.0-47.0) % MCV 80.5 (80.0-98.0) fL MCH 27.2 (27.0-33.0) pg MCHC 33.8 (31.0-35.0) g/dl RDW 15.0 (11.0-16.0) % Plt Count 616 H (160-400) X10*3/uL MPV 8.6 L (9.4-12.3) fL Immature Gran % (Auto) 0.4 (0.0-0.4) % Neut % (Auto) 87.7 H (45-73) % Lymph % (Auto) 9.7 L (20-40) % [place] % (Auto) 1.8 L (2-11) % Eos % (Auto) 0.0 (0-4) % Baso % (Auto) 0.4 (0-2) % Lymph # (Auto) 1.3 (1.2-4.9) X10*3/uL [place] # (Auto) 0.2 (0.1-1.2) X10*3/uL Eos # (Auto) 0.0 (0.0-0.4) X10*3/uL Baso # (Auto) 0.1 (0.0-0.2) X10*3/uL Abs Immat Gran (auto) 0.05 H (0.00-0.03) X10*3/uL Absolute Neuts (auto) 11.9 H (2.0-8.3) x10*3/uL Absolute Nucleated RBC 0.000 (0.0-0.012) X10*3/uL Nucleated RBC % (auto) 0.0 (0.0-0.2) /100WBC VBG pH (7.32-7.43) VBG pCO2 mmHg VBG pO2 mmHg VBG HCO3 (22-26) mmol/L VBG O2 Saturation % VBG Base Excess mmol/L Sodium 138 (135-145) mmol/L Potassium 4.0 (3.3-5.1) mmol/L Chloride 99 (96-108) mmol/L Carbon Dioxide 18 L (22-29) mmol/L Anion Gap 25 H (12-20) BUN 14 (9-16) mg/dL Creatinine 1.26 (0.5-1.4) mg/dL Estim Creat Clear Calc 56.2 Estimated GFR 45 POC Glucose 357 H* (60-115) mg/dL Random Glucose 371 H* (60-115) mg/dL Lactic Acid 4.6 H* (0.5-2.0) mmol/L Calcium 10.3 H (8.4-10.2) mg/dL Total Bilirubin 0.3 (0.0-1.0) mg/dL AST 10 (5-31) U/L ALT 11 (0-31) U/L Alkaline Phosphatase 172 H (39-117) U/L Total Protein 8.3 H (6.5-8.0) g/dL Albumin 4.4 (3.5-5.0) g/dL Beta-Hydroxybutyrate 1.69 H (0.02-0.27) mmol/L 04/19/24 04/19/24 04/19/24 Range/Units 04:30 04:45 05:33 WBC (4.8-10.8) X10*3/uL RBC (4.20-5.50) X10*6/uL Hgb (12.0-16.0) g/dl Hct (37.0-47.0) % MCV (80.0-98.0) fL MCH (27.0-33.0) pg MCHC (31.0-35.0) g/dl RDW (11.0-16.0) % Plt Count (160-400) X10*3/uL MPV (9.4-12.3) fL Immature Gran % (Auto) (0.0-0.4) % Neut % (Auto) (45-73) % Lymph % (Auto) (20-40) % [place] % (Auto) (2-11) % Eos % (Auto) (0-4) % Baso % (Auto) (0-2) % Lymph # (Auto) (1.2-4.9) X10*3/uL [place] # (Auto) (0.1-1.2) X10*3/uL Eos # (Auto) (0.0-0.4) X10*3/uL Baso # (Auto) (0.0-0.2) X10*3/uL Abs Immat Gran (auto) (0.00-0.03) X10*3/uL Absolute Neuts (auto) (2.0-8.3) x10*3/uL Absolute Nucleated RBC (0.0-0.012) X10*3/uL Nucleated RBC % (auto) (0.0-0.2) /100WBC VBG pH 7.52 H (7.32-7.43) VBG pCO2 28 mmHg VBG pO2 63 mmHg VBG HCO3 23 (22-26) mmol/L VBG O2 Saturation 89.0 % VBG Base Excess 1.4 mmol/L Sodium (135-145) mmol/L Potassium (3.3-5.1) mmol/L Chloride (96-108) mmol/L Carbon Dioxide (22-29) mmol/L Anion Gap (12-20) BUN (9-16) mg/dL Creatinine (0.5-1.4) mg/dL Estim Creat Clear Calc Estimated GFR POC Glucose 303 H 312 H (60-115) mg/dL Random Glucose (60-115) mg/dL Lactic Acid (0.5-2.0) mmol/L Calcium (8.4-10.2) mg/dL Total Bilirubin (0.0-1.0) mg/dL AST (5-31) U/L ALT (0-31) U/L Alkaline Phosphatase (39-117) U/L Total Protein (6.5-8.0) g/dL Albumin (3.5-5.0) g/dL Beta-Hydroxybutyrate (0.02-0.27) mmol/L 04/19/24 Range/Units 06:32 WBC (4.8-10.8) X10*3/uL RBC (4.20-5.50) X10*6/uL Hgb (12.0-16.0) g/dl Hct (37.0-47.0) % MCV (80.0-98.0) fL MCH (27.0-33.0) pg MCHC (31.0-35.0) g/dl RDW (11.0-16.0) % Plt Count (160-400) X10*3/uL MPV (9.4-12.3) fL Immature Gran % (Auto) (0.0-0.4) % Neut % (Auto) (45-73) % Lymph % (Auto) (20-40) % [place] % (Auto) (2-11) % Eos % (Auto) (0-4) % Baso % (Auto) (0-2) % Lymph # (Auto) (1.2-4.9) X10*3/uL [place] # (Auto) (0.1-1.2) X10*3/uL Eos # (Auto) (0.0-0.4) X10*3/uL Baso # (Auto) (0.0-0.2) X10*3/uL Abs Immat Gran (auto) (0.00-0.03) X10*3/uL Absolute Neuts (auto) (2.0-8.3) x10*3/uL Absolute Nucleated RBC (0.0-0.012) X10*3/uL Nucleated RBC % (auto) (0.0-0.2) /100WBC VBG pH (7.32-7.43) VBG pCO2 mmHg VBG pO2 mmHg VBG HCO3 (22-26) mmol/L VBG O2 Saturation % VBG Base Excess mmol/L Sodium (135-145) mmol/L Potassium (3.3-5.1) mmol/L Chloride (96-108) mmol/L Carbon Dioxide (22-29) mmol/L Anion Gap (12-20) BUN (9-16) mg/dL Creatinine (0.5-1.4) mg/dL Estim Creat Clear Calc Estimated GFR POC Glucose 295 H (60-115) mg/dL Random Glucose (60-115) mg/dL Lactic Acid (0.5-2.0) mmol/L Calcium (8.4-10.2) mg/dL Total Bilirubin (0.0-1.0) mg/dL AST (5-31) U/L ALT (0-31) U/L Alkaline Phosphatase (39-117) U/L Total Protein (6.5-8.0) g/dL Albumin (3.5-5.0) g/dL Beta-Hydroxybutyrate (0.02-0.27) mmol/L External Record Review External record reviewed: Inpatient record Chronic Conditions Patient?s care impacted by: Diabetes Medications Administered Discontinued Medications Generic Name Dose Route Start Last Admin Trade Name Freq PRN Reason Stop Dose Admin Hydromorphone HCl 1 mg 04/19/24 03:51 04/19/24 04:13 Hydromorphone Hcl 1 Mg/Ml Syringe IVPUSH 04/19/24 03:52 1 mg ONCE STA Administration Protocol Sodium Chloride 1,000 mls @ 999 mls/hr 04/19/24 03:05 04/19/24 03:31 Ns IV 04/19/24 04:05 999 mls/hr .Q1H1M STA Administration Sodium Chloride 1,000 mls @ 999 mls/hr 04/19/24 03:07 04/19/24 03:31 Ns IV 04/19/24 04:07 999 mls/hr .Q1H1M STA Administration Ondansetron HCl 4 mg 04/19/24 03:05 04/19/24 03:30 Ondansetron Hcl 4 Mg/2 Ml Vial IVPUSH 04/19/24 03:06 4 mg ONCE ONE Administration Critical Care Time Critical Care Time Critical Care Time: Yes Total Critical Care Time: 40 Attestation: Critical Care: The patient was critically ill with a high probability of imminent or life threatening deterioration. I spent greater than 30 minutes of discontinuous time evaluating the patient,delivering critical care at the bedside, discussing and evaluating pertinent data with consultants. Critical care time does not include time spent performing separately billable procedures or teaching. Total time spent performing critical care was 45 minutes. Discharge Plan Discharge Clinical Impression: Diabetes mellitus with gastroparesis, Fluid volume depletion Abdominal pain Qualifiers: Abdominal location: epigastric Qualified Code(s): R10.13 - Epigastric pain Patient Disposition: Admitted As Inpatient Print Language: Barbadian
[2024-04-19 03:28] LABS: MANUAL DIFF FLAG NO
[2024-04-19] MEDS: ondansetron HCL 4 MG/2 ML VIAL IVPUSH ×2 (03:30→10:33)
[2024-04-19] MEDS: 0.9 % Sodium Chloride 1,000 ML 999 ML IV ×3 (03:31→10:25)
[2024-04-19 03:33] LABS: Basophils Absolute Auto 0.1 X10*3/uL (0.0-0.2); Basophils Percent Auto 0.4 % (0-2); Hematocrit 35.5 % (37.0-47.0); Imm Gran Abs Auto 0.05 X10*3/uL (0.00-0.03); Imm Gran Pct Auto 0.4 % (0.0-0.4); Lymphocytes Absolute Auto 1.3 X10*3/uL (1.2-4.9); Lymphocytes Percent Auto 9.7 % (20-40); Mean Corpuscular HGB Conc 33.8 g/dl (31.0-35.0); Mean Corpuscular Hemoglobin 27.2 pg (27.0-33.0); Mean Corpuscular Volume 80.5 fL (80.0-98.0); Mean Platelet Volume 8.6 fL (9.4-12.3); Monocytes Absolute Auto 0.2 X10*3/uL (0.1-1.2); Monocytes Percent Auto 1.8 % (2-11); Neutrophils Absolute Auto 11.9 x10*3/uL (2.0-8.3); Neutrophils Percent Auto 87.7 % (45-73); Platelet Count 616 X10*3/uL (160-400); Red Blood Count 4.41 X10*6/uL (4.20-5.50); White Blood Count 13.5 X10*3/uL (4.8-10.8)
[2024-04-19 03:54] LABS: Lactic Acid 4.6 mmol/L (0.5-2.0)
[2024-04-19 03:55] LABS: Alanine Aminotransferase 11 U/L (0-31); Albumin Level 4.4 g/dL (3.5-5.0); Alkaline Phosphatase 172 U/L (39-117); Anion Gap 25 (12-20); Aspartate Amino Transferase 10 U/L (5-31); Beta-Hydroxybutyrate 1.69 mmol/L (0.02-0.27); Bilirubin Total 0.3 mg/dL (0.0-1.0); Blood Urea Nitrogen 14 mg/dL (9-16); Calcium 10.3 mg/dL (8.4-10.2); Carbon Dioxide 18 mmol/L (22-29); Chloride 99 mmol/L (96-108); Creatinine Clr Calc Pharmacy 56.2; Estimated Glomerular Filt Rate 45; Glucose Random 371 mg/dL (60-115); Sodium 138 mmol/L (135-145); Total Protein 8.3 g/dL (6.5-8.0)
[2024-04-19] MEDS: HYDROmorphone HCl 1 MG/ML SYRINGE IVPUSH (04:13)
[2024-04-19 04:33] LABS: Venous Blood Gas Refer to POC result
[2024-04-19 04:35] LABS: VBG Base Excess 1.4 mmol/L; VBG HCO3 23 mmol/L (22-26); VBG pCO2 28 mmHg; VBG pH 7.52 (7.32-7.43); VBG pO2 63 mmHg
[2024-04-19 04:49] LABS: Glucose, Whole Blood 303 mg/dL (60-115)
--- NOTE | 2024-04-19 04:53 | PC.NURSE ---
PT comes via ems with reports of N/V and abd pain. States she has thrown up 4-5 or more times since 10/5 AM. PT is a type 1 diabetic and reports feeling similar to past episodes of DKA. PT diaphoretic, pale, and breathing swallow and rapidly at times. Enroute pt POC 505. TW obtained POC in ED- 353 notified provider, Protocol orders placed, PT placed on front desk monitor- tachy at 120-140s. Endorsing 8-9/10 pain epigastric region. Port on upper right chest accessed- labs drawn and medications administered as per SEP. PT difficult stick. Unable to obtain second culture. 1st obtained via port. aware and okayed
[2024-04-19 05:26] LABS: Reflex Lactate? Lactic Acid Added
[2024-04-19 05:41] LABS: Glucose, Whole Blood 312 mg/dL (60-115)
[2024-04-19 06:35] LABS: Glucose, Whole Blood 295 mg/dL (60-115)
--- NOTE | 2024-04-19 06:54 | PC.NURSE ---
PT able to answer yes or no and endorse pain, but when asking assessment questions pt not answering.
[2024-04-19 08:08] LABS: Estimated Average Glucose 177 mg/dL; Hemoglobin A1c % 7.8 % (<6.0)
[2024-04-19 08:44] LABS: Glucose, Whole Blood 263 mg/dL (60-115)
--- NOTE | 2024-04-19 09:05 | PHA.MEDREC ---
Addendum entered by Lorenzo Goddard 04/19/24 09:33: reviewed Original Note: Pharmacy Consult ? Medication Reconciliation Pharmacy has completed the medication reconciliation .
--- NOTE | 2024-04-19 09:21 | PC.NURSE ---
this RN just karly and sent labs ordered on the pt. There is one tech on the floor, the pt is a very difficult stick. She does have a port accessed but it is positional and difficult to draw from. Labs were obtained and sent to lab with waste tube discarded. additionally there was a lactic drawn and sent that was ordered at 0530 this morning, 2 hours before this RN's shift started. The need for this lab was not communicated to me at shift change
[2024-04-19 09:26] LABS: VBG Base Excess 0.4 mmol/L; VBG HCO3 21 mmol/L (22-26); VBG pCO2 23 mmHg; VBG pH 7.55 (7.32-7.43); VBG pO2 84 mmHg
[2024-04-19 09:28] LABS: Venous Blood Gas Refer to POC result
--- NOTE | 2024-04-19 09:31 | PC.NURSE ---
pt is nauseous and vomiting. MD notified and pain and nausea meds requested.
[2024-04-19 09:34] LABS: ~Lactic Acid-LAB USE ONLY 1.5 mmol/L (0.5-2.0)
[2024-04-19 09:37] LABS: Beta-Hydroxybutyrate 1.87 mmol/L (0.02-0.27)
--- NOTE | 2024-04-19 09:41 | PC.NURSE ---
fluids placed on high IV pole for faster infusion
[2024-04-19 09:42] LABS: Anion Gap 17 (12-20); Blood Urea Nitrogen 11 mg/dL (9-16); Calcium 9.1 mg/dL (8.4-10.2); Carbon Dioxide 21 mmol/L (22-29); Chloride 104 mmol/L (96-108); Creatinine Clr Calc Pharmacy 77.8; Estimated Glomerular Filt Rate > 60; Glucose Random 272 mg/dL (60-115); Sodium 138 mmol/L (135-145)
[2024-04-19 09:48] LABS: Anion Gap 18 (12-20); Blood Urea Nitrogen 11 mg/dL (9-16); Calcium 9.2 mg/dL (8.4-10.2); Carbon Dioxide 21 mmol/L (22-29); Chloride 103 mmol/L (96-108); Creatinine Clr Calc Pharmacy 76.9; Estimated Glomerular Filt Rate > 60; Glucose Random 273 mg/dL (60-115); Potassium 4.1 mmol/L (3.3-5.1); Sodium 138 mmol/L (135-145)
--- NOTE | 2024-04-19 10:20 | PM.IMHP ---
History of Present Illness Date of Service: 04/19/24 Chief Complaint: Abd pain , vomiting A 48 years old lady with PMH of DMI on insulin pump, Gastroparesis, GERD, Bipolar among others who presents to the hospital with abdominal pain, N\V for 1 day [employer]. The patient reprots that she started to feel nausea and pain yesterday and went the whole day vomiting and not tolerating and PO intake. No chest pain, palpitations, SOB, diarrhea or urinary symptoms. she is reporitng abdominal pain which is dull aching and constant which is similar to what she gets with DKA as she recalls. Blood sugar was in 300s, Elecated AG and Ketones. ABG showed mixed acid-base balance. treated with IVF and insulin with mild response as AG closed. Will be admitted for further work up and management. Review of Systems Review of Systems: No fever, chills or weakness No chest pain, palpitation No shortness of breath or coughing having abdominal pain, nausea or vomiting No urinary symptoms No any rash or wounds [facility] Medical History Diabetic gastroparesis Acute UTI Diabetes mellitus type 1 Chronic hypertension Intractable cyclical vomiting with nausea Diabetes mellitus with gastroparesis Diabetic gastroparesis Herpes zoster Status post fall Recurrent UTI NSTEMI (non-ST elevated myocardial infarction) Diabetic gastroparesis Anxiety Bipolar 1 disorder Pancreatitis Gastroparesis Diabetes Surgical History History of cholecystectomy History of tonsillectomy History of ERCP H/O pyloroplasty History of appendectomy H/O: hysterectomy Social History Household Members: Spouse Housing: House Do you presently have visiting nurse or other home services: No Unable to assess alcohol history related to: Refusing to respond Alcohol intake: never Comment: pt refused bed alarm Patient Tobacco Use Status: Former Tobacco user Tobacco use type: Cigarette e-Cigarette/Vaping Use: Never Used Second Hand Smoke Exposure: No Substance Use Type: Marijuana Advance Directives: No Advance Directives Information Provided: No Advance Directives Date on File: 12/03/22 Do you have a plan to hurt others: No Plan Nutrition Risks: No Nutritional Risk service: No Current occupational status: disabled Cognitive needs: No Hearing needs: No Vision needs: No Meds Allergies Allergy/AdvReac Type Severity Reaction Status Date / Time morphine [MORPHINE] Allergy Intermediate RASH, Verified 04/19/24 03:45 hives, hives mushroom Allergy Intermediate HIVES/RASH Verified 04/19/24 03:45 Sulfa (Sulfonamide Allergy Mild Rash Verified 04/19/24 03:45 Antibiotics) mushroom Allergy Unknown throat Uncoded 04/19/24 03:45 closes up/difficult breathing mushrooms Allergy Unknown anaphylaxis Uncoded 04/19/24 03:45 Active Medications: Current Medications Acetaminophen (Acetaminophen 325 Mg Tablet) 650 mg PO Q6H PRN PRN Reason: Pain, Mild (Pain Scale 1-3), fever or headache Calcium Carbonate (Calcium Carbonate 750 Mg Tab.Chew) 750 mg PO Q4H PRN PRN Reason: Heartburn Enoxaparin Sodium (Enoxaparin Sodium 40 Mg/0.4 Ml Syringe) 40 mg SUBCUT Q24H [facility] Sodium Chloride (Ns) 1,000 mls @ 999 mls/hr IV .Q1H1M [facility] Stop: 04/19/24 11:15 Sodium Chloride (Ns) 1,000 mls @ 125 mls/hr IVCONT .Q8H [facility] Insulin Glargine (Insulin Glargine,Hum.Rec.Anlog 100 Unit/Ml 10 Ml Vial) 5 unit SUBCUT ONCE ONE Stop: 04/19/24 10:11 Insulin Human Lispro (Insulin Lispro 100 Unit/Ml 3 Ml Vial) 0 unit SUBCUT QIDACHS [facility]; Protocol Magnesium Hydroxide (Milk Of Magnesia 30 Ml Oral.Susp) 30 ml PO DAILY PRN PRN Reason: Constipation Melatonin (Melatonin 3 Mg Tablet) 6 mg PO BEDTIME PRN PRN Reason: Insomnia Metoclopramide HCl (Metoclopramide Hcl 10 Mg/2 Ml Vial) 5 mg IVPUSH TIDWM [facility] Ondansetron HCl (Ondansetron Hcl 4 Mg/2 Ml Vial) 4 mg IVPUSH Q8H PRN PRN Reason: Nausea and Vomiting Sodium Chloride (0.9 % Sodium Chloride Flush 3 Ml Syringe) 3 ml IVFLUSH QSHIFT [facility] Home Medications ?Medication ?Instructions ?Recorded ?Confirmed ?Last Taken ?Type lamotrigine 200 mg tablet 200 mg PO BID 05/11/20 04/19/24 04/18/24 History lorazepam 1 mg tablet 1 mg PO TID PRN Anxiety 05/11/20 04/19/24 06/17/23 08:00 History zolpidem 10 mg tablet 10 mg PO BEDTIME 05/11/20 04/19/24 04/18/24 History insulin aspart U-100 100 unit/mL See Rx Instructions .Route .COMPLEX 06/01/20 04/19/24 04/18/24 History (3 mL) subcutaneous pen (Novolog FlexPen U-100 Insulin aspart) risperidone 2 mg tablet 2 mg PO BID 09/13/21 04/19/24 04/18/24 History omeprazole 20 mg capsule,delayed 20 mg PO BID 02/24/24 04/19/24 04/18/24 History release Physical Exam Vital Signs and Narrative: Vital Signs: Last Vital Signs Temp 98.9 F 04/19/24 10:11 Pulse 110 H 04/19/24 10:11 Resp 18 04/19/24 10:11 BP 177/98 H 04/19/24 10:11 Pulse Ox 98 04/19/24 10:11 O2 Del Method Room Air 04/19/24 10:11 BMI result Body Mass Index 29.1 Const: Other: Constitutional : Awake, interactive, not in distress Neck : Normal inspection, Supple Cardiovascular : RRR, no JVP, no lower extremity edema Respiratory : good bilateral air entry, no crackles, wheezes or rhonchi Gastrointestinal: soft, lax, Normal bowel sounds, generalized tenderness mainly epigastric Skin : Warm, Dry Neurological : Alert & oriented x3, No focal deficit Results Labs 04/19/24 03:14 04/19/24 09:15 Labs: Laboratory Results - last 24 hr 04/19/24 04/19/24 04/19/24 02:54 03:14 03:22 MCV 80.5 MCH 27.2 MCHC 33.8 RDW 15.0 Plt Count 616 H MPV 8.6 L Immature Gran % (Auto) 0.4 Neut % (Auto) 87.7 H Lymph % (Auto) 9.7 L [place] % (Auto) 1.8 L Eos % (Auto) 0.0 Baso % (Auto) 0.4 Lymph # (Auto) 1.3 [place] # (Auto) 0.2 Eos # (Auto) 0.0 Baso # (Auto) 0.1 Abs Immat Gran (auto) 0.05 H Absolute Neuts (auto) 11.9 H Absolute Nucleated RBC 0.000 Nucleated RBC % (auto) 0.0 VBG pH VBG pCO2 VBG pO2 VBG HCO3 VBG O2 Saturation VBG Base Excess Anion Gap 25 H Estim Creat Clear Calc 56.2 Estimated GFR 45 POC Glucose 357 H* Random Glucose 371 H* Estimat Average Glucose 177 Hemoglobin A1c % 7.8 H Lactic Acid 4.6 H* Lactic Acid F/U @ 2Hr Calcium 10.3 H Total Bilirubin 0.3 AST 10 ALT 11 Alkaline Phosphatase 172 H Total Protein 8.3 H Albumin 4.4 Beta-Hydroxybutyrate 1.69 H 04/19/24 04/19/24 04/19/24 04:30 04:45 05:33 MCV MCH MCHC RDW Plt Count MPV Immature Gran % (Auto) Neut % (Auto) Lymph % (Auto) [place] % (Auto) Eos % (Auto) Baso % (Auto) Lymph # (Auto) [place] # (Auto) Eos # (Auto) Baso # (Auto) Abs Immat Gran (auto) Absolute Neuts (auto) Absolute Nucleated RBC Nucleated RBC % (auto) VBG pH 7.52 H VBG pCO2 28 VBG pO2 63 VBG HCO3 23 VBG O2 Saturation 89.0 VBG Base Excess 1.4 Anion Gap Estim Creat Clear Calc Estimated GFR POC Glucose 303 H 312 H Random Glucose Estimat Average Glucose Hemoglobin A1c % Lactic Acid Lactic Acid F/U @ 2Hr Calcium Total Bilirubin AST ALT Alkaline Phosphatase Total Protein Albumin Beta-Hydroxybutyrate 04/19/24 04/19/24 04/19/24 06:32 08:38 09:15 MCV MCH MCHC RDW Plt Count MPV Immature Gran % (Auto) Neut % (Auto) Lymph % (Auto) [place] % (Auto) Eos % (Auto) Baso % (Auto) Lymph # (Auto) [place] # (Auto) Eos # (Auto) Baso # (Auto) Abs Immat Gran (auto) Absolute Neuts (auto) Absolute Nucleated RBC Nucleated RBC % (auto) VBG pH VBG pCO2 VBG pO2 VBG HCO3 VBG O2 Saturation VBG Base Excess Anion Gap 17 Estim Creat Clear Calc Estimated GFR POC Glucose 295 H 263 H Random Glucose Estimat Average Glucose Hemoglobin A1c % Lactic Acid Lactic Acid F/U @ 2Hr Calcium Total Bilirubin AST ALT Alkaline Phosphatase Total Protein Albumin Beta-Hydroxybutyrate 04/19/24 04/19/24 04/19/24 09:15 09:15 09:15 MCV MCH MCHC RDW Plt Count MPV Immature Gran % (Auto) Neut % (Auto) Lymph % (Auto) [place] % (Auto) Eos % (Auto) Baso % (Auto) Lymph # (Auto) [place] # (Auto) Eos # (Auto) Baso # (Auto) Abs Immat Gran (auto) Absolute Neuts (auto) Absolute Nucleated RBC Nucleated RBC % (auto) VBG pH VBG pCO2 VBG pO2 VBG HCO3 VBG O2 Saturation VBG Base Excess Anion Gap 18 Estim Creat Clear Calc 77.8 76.9 Estimated GFR > 60 > 60 POC Glucose Random Glucose 272 H Estimat Average Glucose Hemoglobin A1c % Lactic Acid Lactic Acid F/U @ 2Hr Calcium Total Bilirubin AST ALT Alkaline Phosphatase Total Protein Albumin Beta-Hydroxybutyrate 04/19/24 04/19/24 04/19/24 09:15 09:15 09:21 MCV MCH MCHC RDW Plt Count MPV Immature Gran % (Auto) Neut % (Auto) Lymph % (Auto) [place] % (Auto) Eos % (Auto) Baso % (Auto) Lymph # (Auto) [place] # (Auto) Eos # (Auto) Baso # (Auto) Abs Immat Gran (auto) Absolute Neuts (auto) Absolute Nucleated RBC Nucleated RBC % (auto) VBG pH 7.55 H VBG pCO2 23 VBG pO2 84 VBG HCO3 21 L VBG O2 Saturation 97.0 VBG Base Excess 0.4 Anion Gap Estim Creat Clear Calc Estimated GFR POC Glucose Random Glucose 273 H Estimat Average Glucose Hemoglobin A1c % Lactic Acid Cancelled Lactic Acid F/U @ 2Hr 1.5 Calcium 9.1 D 9.2 Total Bilirubin AST ALT Alkaline Phosphatase Total Protein Albumin Beta-Hydroxybutyrate 1.87 H Assessment and Plan (1) Fluid volume depletion: Status: Acute (2) Abdominal pain: Qualifiers: Abdominal location: epigastric Qualified Code(s): R10.13 - Epigastric pain Status: Acute (3) Diabetes mellitus with gastroparesis: Status: Acute Plan A 48 years old lady with PMH of DMI on insulin pump, Gastroparesis, GERD, Bipolar among others who presents to the hospital with abdominal pain, N\V for 1 day [employer]. Intractable Nausea and vomiting likely related to Diabetic ketoacidosis with mixed acid-base balance with hyperglycemia AG closed in ED A1c of 7.8 IV bolus and maintenance Start Lantus with SSI Zofran PRN Advance diet as tolerated Empirical Ceftriaxone pending UA Uncontrolled HTN Elevated in prev admission as well Continue Metoprolol, Hold Midodrine Add a 2nd agent as needed Hx Gastroparesis Reglan for hx of Gastroparesis GERD Famotidine and Omeprazole DVT PPx Lovenox The patient will need 2 overnight hospital stay for treatment of Quality Stroke Does the patient have a stroke diagnosis?: No VTE Prior VTE?: No VTE Risk Level:: Medical - moderate - high VTE Device Contraindication: Treatment Not Indicated VTE Drug Contraindication: N/A - Med Ordered
[2024-04-19] MEDS: 0.9 % Sodium Chloride 1,000 ML 125 ML IVCONT ×2 (10:26→18:36)
[2024-04-19] MEDS: Insulin Glargine,Hum.rec.anlog 100 UNIT/ML 10 ML VIAL SUBCUT (10:33)
[2024-04-19] MEDS: Enoxaparin Sodium 40 MG/0.4 ML SYRINGE SUBCUT (10:33)
[2024-04-19 11:44] LABS: Lipase 5 U/L (8-78)
[2024-04-19 11:54] LABS: Glucose, Whole Blood 197 mg/dL (60-115)
[2024-04-19] MEDS: HYDROmorphone HCl 0.5 MG/0.5 ML SYRINGE IVPUSH ×3 (12:04→22:31)
[2024-04-19] MEDS: Metoclopramide HCl 10 MG/2 ML VIAL 5 MG IVPUSH ×2 (12:05→17:36)
--- NOTE | 2024-04-19 12:39 | PC.NURSE ---
provider notified of pt's presence in ED. Notified that she is requesting SANE kit.
[2024-04-19 13:12] LABS: Glucose, Whole Blood 165 mg/dL (60-115)
[2024-04-19 13:27] LABS: Appearance Urine Clear; Color Urine Yellow; Glucose Urine UA >=1000 mg/dL (Negative); Leukocyte Esterase Urine Negative (Negative); Nitrite Urine Negative (Negative); Specific Gravity - Urine 1.015 (1.005-1.025); UMIC TRIGGER UACC YES; Urine Blood Moderate (2+) (Negative); Urine Ketones 40 mg/dL (Negative); Urine Protein 30 (1+) mg/dL (Neg-Trace)
--- NOTE | 2024-04-19 13:28 | PC.NURSE ---
pt's pre-meal POC 165. she is not interested in eating. on a clear liquid and might take a few sips. notified, holding lispro for now
[2024-04-19 13:32] LABS: Bacteria Urine None Seen (None Seen); Hyaline Casts Urine 0-2 /LPF (0-2); Squamous Epithelial Cell Urine 0-2 /HPF (0-2); WBC Urine 0-5 /HPF (0-5)
--- NOTE | 2024-04-19 13:41 | PC.NURSE ---
pt reports nausea and decline PO medications. she has been taking sips of water - tolerating OK. no vomiting
[2024-04-19] MEDS: cefTRIAXone sodium 1 GM in 0.9 % Sodium Chloride 50 ML IV (13:50)
[2024-04-19] MEDS: risperiDONE 2 MG TABLET PO ×2 (13:56→22:32)
[2024-04-19] MEDS: Metoprolol Tartrate 25 MG TABLET PO ×2 (13:56→22:32)
[2024-04-19] MEDS: lamoTRIgine 100 MG TABLET 200 MG PO ×2 (13:56→22:31)
--- NOTE | 2024-04-19 13:59 | PC.NURSE ---
pt initially refused her daily medications saying tht she was too nauseous but then decided to take them.
[2024-04-19 15:16] LABS: Glucose, Whole Blood 162 mg/dL (60-115)
[2024-04-19 18:43] LABS: Glucose, Whole Blood 118 mg/dL (60-115)
--- NOTE | 2024-04-19 19:29 | PC.NURSE ---
Assumed care of this patient at 1900, patient resting quietly on stretcher at this time, hospital bed offered to patient, patient will be switched over to bed, VSS, no other complaints at this time.
[2024-04-19 20:46] LABS: Glucose, Whole Blood 165 mg/dL (60-115)
--- NOTE | 2024-04-19 21:51 | PC.NURSE ---
Informed admitting RN Jacey patient was not medicated w/ 2100 meds d/t RN being tied up w/ another critical patient, apologized for the inconvenience.
[2024-04-19] MEDS: Omeprazole 20 MG CAPSULE.DR PO (22:31)
[2024-04-19] MEDS: Zolpidem Tartrate 5 MG TABLET 10 MG PO (22:32)
[2024-04-19] MEDS: Insulin Lispro 100 UNIT/ML 3 ML VIAL SUBCUT (22:32)
[2024-04-19] MEDS: 0.9 % Sodium Chloride Flush 3 ML SYRINGE IVFLUSH (22:33)
[2024-04-20] VITALS (7 sets, daily range): BP systolic 96–140; BP diastolic 53–80; PULSE 84–128; RESP 17–20; TEMP 36.1–36.8; O2SAT 95–98
[2024-04-20] MEDS: 0.9 % Sodium Chloride 1,000 ML 125 ML IVCONT (02:31)
[2024-04-20] MEDS: HYDROmorphone HCl 0.5 MG/0.5 ML SYRINGE IVPUSH ×5 (03:20→21:58)
[2024-04-20] MEDS: ondansetron HCL 4 MG/2 ML VIAL IVPUSH ×2 (03:22→19:33)
[2024-04-20 06:30] LABS: Hematocrit 29.1 % (37.0-47.0); Hemoglobin 9.7 g/dl (12.0-16.0); Mean Corpuscular HGB Conc 33.3 g/dl (31.0-35.0); Mean Corpuscular Hemoglobin 27.8 pg (27.0-33.0); Mean Corpuscular Volume 83.4 fL (80.0-98.0); Mean Platelet Volume 8.8 fL (9.4-12.3); Platelet Count 472 X10*3/uL (160-400); Red Blood Count 3.49 X10*6/uL (4.20-5.50); Red Cell Distribution Width 15.7 % (11.0-16.0); White Blood Count 13.6 X10*3/uL (4.8-10.8)
[2024-04-20 07:35] LABS: Alanine Aminotransferase 8 U/L (0-31); Albumin Level 3.2 g/dL (3.5-5.0); Alkaline Phosphatase 91 U/L (39-117); Anion Gap 11 (12-20); Aspartate Amino Transferase 10 U/L (5-31); Bilirubin Total 0.3 mg/dL (0.0-1.0); Blood Urea Nitrogen 8 mg/dL (9-16); Calcium 7.6 mg/dL (8.4-10.2); Carbon Dioxide 21 mmol/L (22-29); Chloride 109 mmol/L (96-108); Creatinine Clr Calc Pharmacy 107.4; Estimated Glomerular Filt Rate > 60; Glucose Random 113 mg/dL (60-115); Sodium 138 mmol/L (135-145); Total Protein 5.8 g/dL (6.5-8.0)
[2024-04-20 07:36] LABS: Glucose, Whole Blood 104 mg/dL (60-115)
[2024-04-20] MEDS: Enoxaparin Sodium 40 MG/0.4 ML SYRINGE SUBCUT (09:23)
[2024-04-20] MEDS: Metoclopramide HCl 10 MG/2 ML VIAL 5 MG IVPUSH ×3 (09:24→17:16)
--- NOTE | 2024-04-20 09:32 | PC.NURSE ---
Pt experiencing nausea and vomiting. PO meds held until pt not experiencing nausea and vomiting.
--- NOTE | 2024-04-20 09:53 | MHC.CM.PN ---
IMM 04/20/24 DX DKA Patient lives with her spouse. She is independent with all functional mobility. A HCP is on file. DP is home self care. Patients spouse will provide transportation home.
[2024-04-20] MEDS: Doxycycline Hyclate 100 MG in 0.9 % Sodium Chloride 250 ML 166.67 MG IV ×2 (10:48→20:49)
[2024-04-20] MEDS: lamoTRIgine 100 MG TABLET 200 MG PO ×2 (10:53→21:59)
[2024-04-20] MEDS: Metoprolol Tartrate 25 MG TABLET PO ×2 (10:53→21:59)
[2024-04-20] MEDS: risperiDONE 2 MG TABLET PO ×2 (10:53→21:59)
--- NOTE | 2024-04-20 11:30 | PC.NURSE ---
IV potassium and D5LR late due to administration of Doxycycline. Pt has limited access
[2024-04-20 11:35] LABS: Glucose, Whole Blood 133 mg/dL (60-115)
[2024-04-20] MEDS: Potassium Chloride/H20 10 MEQ/100 ML PIGGYBACK 100 MEQ IV ×2 (12:43→13:51)
[2024-04-20] MEDS: Dextrose 5 % and Lactated Ring 1,000 ML 125 ML IVCONT ×2 (12:43→17:16)
--- NOTE | 2024-04-20 15:19 | HO.PM.IMPN ---
Subjective Subjective Date of Service: 04/20/24 Interval History: seen and evaluated still nauseated and reporting abd pain passing gas and BM no other overnight events Review of Systems Review of Systems: Yes all other systems are reviewed and are negative Physical Exam Vital Signs: Vital Signs: Last Vital Signs Temp 97.6 F 04/20/24 15:13 Pulse 103 H 04/20/24 15:13 Resp 17 04/20/24 15:13 BP 126/62 04/20/24 15:13 Pulse Ox 98 04/20/24 15:13 O2 Del Method Room Air 04/20/24 15:13 BMI result Body Mass Index 28.2 Const: Other: Constitutional : Awake, interactive, not in distress Neck : Normal inspection, Supple Cardiovascular : RRR, no JVP, no lower extremity edema Respiratory : good bilateral air entry, no crackles, wheezes or rhonchi Gastrointestinal: soft, lax, Normal bowel sounds, generalized tenderness mainly epigastric Skin : Warm, Dry Neurological : Alert & oriented x3, No focal deficit Objective Data Active Medications Acetaminophen (Acetaminophen 325 Mg Tablet) 650 mg PO Q6H PRN PRN Reason: Pain, Mild (Pain Scale 1-3), fever or headache Calcium Carbonate (Calcium Carbonate 750 Mg Tab.Chew) 750 mg PO Q4H PRN PRN Reason: Heartburn Enoxaparin Sodium (Enoxaparin Sodium 40 Mg/0.4 Ml Syringe) 40 mg SUBCUT Q24H [facility] Last Admin: 04/20/24 09:23 Dose: 40 mg Documented By: KALIA Hydromorphone HCl (Hydromorphone Hcl 0.5 Mg/0.5 Ml Syringe) 0.5 mg IVPUSH Q4H PRN; Protocol PRN Reason: Pain, Severe (Pain Scale 7-10) Last Admin: 04/20/24 13:51 Dose: 0.5 mg Documented By: SANDRO Ceftriaxone Sodium 1 gm/ (Sodium Chloride) 50 mls @ 100 mls/hr IV Q24H [facility] Last Infusion: 04/19/24 14:49 Dose: Infused Documented By: JOLENE Dextrose/Lactated Ringer's (D5lr) 1,000 mls @ 125 mls/hr IVCONT .Q8H [facility] Last Admin: 04/20/24 12:43 Dose: 125 mls/hr Documented By: KALIA Doxycycline Hyclate 100 mg/ (Sodium Chloride) 250 mls @ 166.67 mls/hr IV BID [facility] Last Infusion: 04/20/24 12:25 Dose: Infused Documented By: KALIA Insulin Human Lispro (Insulin Lispro 100 Unit/Ml 3 Ml Vial) 0 unit SUBCUT QIDACHS [facility]; Protocol Last Admin: 04/20/24 12:37 Dose: Not Given Documented By: KALIA Non-Admin Reason: No Insulin Coverage Lamotrigine (Lamotrigine 100 Mg Tablet) 200 mg PO BID [facility] Last Admin: 04/20/24 10:53 Dose: 200 mg Documented By: KALIA Lorazepam (Lorazepam 1 Mg Tablet) 1 mg PO TID PRN PRN Reason: Anxiety Magnesium Hydroxide (Milk Of Magnesia 30 Ml Oral.Susp) 30 ml PO DAILY PRN PRN Reason: Constipation Melatonin (Melatonin 3 Mg Tablet) 6 mg PO BEDTIME PRN PRN Reason: Insomnia Metoclopramide HCl (Metoclopramide Hcl 10 Mg/2 Ml Vial) 5 mg IVPUSH TIDWM [facility] Last Admin: 04/20/24 11:38 Dose: 5 mg Documented By: KALIA Metoprolol Tartrate (Metoprolol Tartrate 25 Mg Tablet) 25 mg PO BID [facility]; Protocol Last Admin: 04/20/24 10:53 Dose: 25 mg Documented By: KALIA Omeprazole (Omeprazole 20 Mg Capsule.Dr) 20 mg PO BID [facility] Last Admin: 04/20/24 10:54 Dose: Not Given Documented By: KALIA Non-Admin Reason: Patient Refused Ondansetron HCl (Ondansetron Hcl 4 Mg/2 Ml Vial) 4 mg IVPUSH Q8H PRN PRN Reason: Nausea and Vomiting Last Admin: 04/20/24 03:22 Dose: 4 mg Documented By: MARTELL Risperidone (Risperidone 2 Mg Tablet) 2 mg PO BID [facility] Last Admin: 04/20/24 10:53 Dose: 2 mg Documented By: KALIA Sodium Chloride (0.9 % Sodium Chloride Flush 3 Ml Syringe) 3 ml IVFLUSH QSHIFT [facility] Last Admin: 04/20/24 09:30 Dose: Not Given Documented By: KALIA Non-Admin Reason: IV Running Zolpidem Tartrate (Zolpidem Tartrate 5 Mg Tablet) 10 mg PO BEDTIME RAISA Last Admin: 04/19/24 22:32 Dose: 10 mg Documented By: MARTELL Labs 04/20/24 05:53 04/20/24 05:53 Labs: Laboratory Results - last 24 hr 04/19/24 04/19/24 04/20/24 18:39 20:33 05:53 MCV 83.4 MCH 27.8 MCHC 33.3 RDW 15.7 Plt Count 472 H MPV 8.8 L Absolute Nucleated RBC 0.000 Nucleated RBC % (auto) 0.0 Anion Gap 11 L Estim Creat Clear Calc 107.4 Estimated GFR > 60 POC Glucose 118 H 165 H Random Glucose 113 Calcium 7.6 L D Total Bilirubin 0.3 AST 10 ALT 8 Alkaline Phosphatase 91 Total Protein 5.8 L Albumin 3.2 L 04/20/24 04/20/24 07:32 11:32 MCV MCH MCHC RDW Plt Count MPV Absolute Nucleated RBC Nucleated RBC % (auto) Anion Gap Estim Creat Clear Calc Estimated GFR POC Glucose 104 133 H Random Glucose Calcium Total Bilirubin AST ALT Alkaline Phosphatase Total Protein Albumin Microbiology Microbiology Results: Microbiology 04/19/24 04:26 Blood Culture - Preliminary Blood - Venous Prelim: GPC Gram Stain only Assessment and Plan (1) Fluid volume depletion: Status: Acute (2) Abdominal pain: Status: Acute (3) Diabetes mellitus with gastroparesis: Status: Acute Plan A 48 years old lady with PMH of DMI on insulin pump, Gastroparesis, GERD, Bipolar among others who presents to the hospital with abdominal pain, N\V for 1 day [employer]. Intractable Nausea and vomiting likely related to Gastroparesis vs cyclic vomiting syndrome CT scan negative for intraabdominal problem Change IVF to D5LR blood sugar better controlled with her insulin pump Zofran PRN Reglan ATC Advance diet as tolerated dc Empirical Ceftriaxone Acute hypokalemia replacement given, follow BMP Uncontrolled HTN improved now Continue Metoprolol, Hold Midodrine Hx Gastroparesis Reglan for hx of Gastroparesis GERD Famotidine and Omeprazole DVT PPx Lovenox The patient will need overnight hospital stay for treatment of intractable vomiting, intolerance to PO, electrolytes imbalane pending improvement in ability to tolerate PO. Quality Stroke Does the patient have a stroke diagnosis?: No VTE Prior VTE?: No VTE Risk Level:: Medical - moderate - high VTE Device Contraindication: Treatment Not Indicated VTE Drug Contraindication: N/A - Med Ordered
[2024-04-20] MEDS: cefTRIAXone sodium 1 GM in 0.9 % Sodium Chloride 50 ML IV (15:20)
[2024-04-20 16:14] LABS: Glucose, Whole Blood 140 mg/dL (60-115)
[2024-04-20 21:13] LABS: Glucose, Whole Blood 179 mg/dL (60-115)
[2024-04-20] MEDS: Insulin Lispro 100 UNIT/ML 3 ML VIAL SUBCUT (21:36)
[2024-04-20] MEDS: Zolpidem Tartrate 5 MG TABLET 10 MG PO (21:59)
[2024-04-20] MEDS: Omeprazole 20 MG CAPSULE.DR PO (21:59)
[2024-04-21] VITALS (7 sets, daily range): BP systolic 127–159; BP diastolic 70–94; PULSE 93–120; RESP 18–20; TEMP 36.1–37.2; O2SAT 96–100
[2024-04-21] MEDS: HYDROmorphone HCl 0.5 MG/0.5 ML SYRINGE IVPUSH ×6 (02:05→22:31)
[2024-04-21] MEDS: Dextrose 5 % and Lactated Ring 1,000 ML 125 ML IVCONT ×3 (02:08→18:30)
[2024-04-21 06:37] LABS: Hematocrit 30.6 % (37.0-47.0); Hemoglobin 10.2 g/dl (12.0-16.0); Mean Corpuscular HGB Conc 33.3 g/dl (31.0-35.0); Mean Corpuscular Hemoglobin 27.1 pg (27.0-33.0); Mean Corpuscular Volume 81.2 fL (80.0-98.0); Mean Platelet Volume 8.5 fL (9.4-12.3); Platelet Count 466 X10*3/uL (160-400); Red Blood Count 3.77 X10*6/uL (4.20-5.50); Red Cell Distribution Width 14.9 % (11.0-16.0); White Blood Count 11.5 X10*3/uL (4.8-10.8)
[2024-04-21 06:59] LABS: Anion Gap 12 (12-20); Blood Urea Nitrogen 7 mg/dL (9-16); Calcium 8.9 mg/dL (8.4-10.2); Carbon Dioxide 27 mmol/L (22-29); Chloride 100 mmol/L (96-108); Creatinine Clr Calc Pharmacy 88.3; Estimated Glomerular Filt Rate > 60; Glucose Random 174 mg/dL (60-115); Sodium 136 mmol/L (135-145)
[2024-04-21 07:30] LABS: Glucose, Whole Blood 160 mg/dL (60-115)
[2024-04-21] MEDS: Enoxaparin Sodium 40 MG/0.4 ML SYRINGE SUBCUT (08:45)
[2024-04-21] MEDS: lamoTRIgine 100 MG TABLET 200 MG PO ×2 (08:45→22:32)
[2024-04-21] MEDS: Omeprazole 20 MG CAPSULE.DR PO ×2 (08:45→22:32)
[2024-04-21] MEDS: Metoprolol Tartrate 25 MG TABLET PO ×2 (08:46→22:32)
[2024-04-21] MEDS: Potassium Chloride/H20 10 MEQ/100 ML PIGGYBACK 100 MEQ IV ×2 (08:46→10:24)
[2024-04-21] MEDS: Doxycycline Hyclate 100 MG in 0.9 % Sodium Chloride 250 ML 166.67 MG IV (08:46)
[2024-04-21] MEDS: Metoclopramide HCl 10 MG/2 ML VIAL 5 MG IVPUSH ×3 (08:46→17:08)
[2024-04-21] MEDS: risperiDONE 2 MG TABLET PO ×2 (08:46→22:32)
[2024-04-21] MEDS: Insulin Lispro 100 UNIT/ML 3 ML VIAL SUBCUT ×2 (08:47→22:32)
[2024-04-21] MEDS: 0.9 % Sodium Chloride Flush 3 ML SYRINGE IVFLUSH ×3 (08:48→19:50)
[2024-04-21] MEDS: Ketorolac Tromethamine 15 MG/ML VIAL IVPUSH (10:24)
[2024-04-21] MEDS: methocarbamoL 500 MG TABLET PO ×3 (10:31→22:32)
--- NOTE | 2024-04-21 11:20 | P.PNIM_ITS ---
Subjective Subjective Date of Service: 04/21/24 Interval History: seen and evaluated still nauseated and report vomiting but overall feels better CT abd negative for any acute findings no other overnight events Review of Systems Review of Systems: Yes all other systems are reviewed and are negative Physical Exam 2 Vital Signs: Vital Signs: Last Vital Signs Temp 98.2 F 04/21/24 08:00 Pulse 104 H 04/21/24 08:00 Resp 20 04/21/24 08:00 BP 127/81 04/21/24 08:00 Pulse Ox 98 04/21/24 08:00 O2 Del Method Room Air 04/21/24 08:00 BMI result Body Mass Index 28.2 Const: Other: Constitutional : Awake, interactive, not in distress Neck : Normal inspection, Supple Cardiovascular : RRR, no JVP, no lower extremity edema Respiratory : good bilateral air entry, no crackles, wheezes or rhonchi Gastrointestinal: soft, lax, Normal bowel sounds, generalized tenderness mainly epigastric Skin : Warm, Dry Neurological : Alert & oriented x3, No focal deficit Objective Data Active Medications Acetaminophen (Acetaminophen 325 Mg Tablet) 650 mg PO Q6H PRN PRN Reason: Pain, Mild (Pain Scale 1-3), fever or headache Calcium Carbonate (Calcium Carbonate 750 Mg Tab.Chew) 750 mg PO Q4H PRN PRN Reason: Heartburn Enoxaparin Sodium (Enoxaparin Sodium 40 Mg/0.4 Ml Syringe) 40 mg SUBCUT Q24H [facility] [place] Last Admin: 04/21/24 08:45 Dose: 40 mg Documented By: MONIKA Hydromorphone HCl (Hydromorphone Hcl 0.5 Mg/0.5 Ml Syringe) 0.5 mg IVPUSH Q4H PRN; Protocol PRN Reason: Pain, Severe (Pain Scale 7-10) Last Admin: 04/21/24 10:25 Dose: 0.5 mg Documented By: MONIKA Dextrose/Lactated Ringer's (D5lr) 1,000 mls @ 125 mls/hr IVCONT .Q8H [facility] [place] Last Admin: 04/21/24 10:25 Dose: 125 mls/hr Documented By: MONIKA Insulin Human Lispro (Insulin Lispro 100 Unit/Ml 3 Ml Vial) 0 unit SUBCUT QIDACHS [facility] [place]; Protocol Last Admin: 04/21/24 08:47 Dose: 2 unit Documented By: MONIKA Lamotrigine (Lamotrigine 100 Mg Tablet) 200 mg PO BID [facility] [place] Last Admin: 04/21/24 08:45 Dose: 200 mg Documented By: MONIKA Lorazepam (Lorazepam 1 Mg Tablet) 1 mg PO TID PRN PRN Reason: Anxiety Magnesium Hydroxide (Milk Of Magnesia 30 Ml Oral.Susp) 30 ml PO DAILY PRN PRN Reason: Constipation Melatonin (Melatonin 3 Mg Tablet) 6 mg PO BEDTIME PRN PRN Reason: Insomnia Methocarbamol (Methocarbamol 500 Mg Tablet) 500 mg PO TID [facility] [place] Last Admin: 04/21/24 10:31 Dose: 500 mg Documented By: MONIKA Metoclopramide HCl (Metoclopramide Hcl 10 Mg/2 Ml Vial) 5 mg IVPUSH TIDWM [facility] [place] Last Admin: 04/21/24 08:46 Dose: 5 mg Documented By: MONIKA Metoprolol Tartrate (Metoprolol Tartrate 25 Mg Tablet) 25 mg PO BID [facility] [place]; Protocol Last Admin: 04/21/24 08:46 Dose: 25 mg Documented By: MONIKA Omeprazole (Omeprazole 20 Mg Capsule.Dr) 20 mg PO BID [facility] [place] Last Admin: 04/21/24 08:45 Dose: 20 mg Documented By: MONIKA Ondansetron HCl (Ondansetron Hcl 4 Mg/2 Ml Vial) 4 mg IVPUSH Q8H PRN PRN Reason: Nausea and Vomiting Last Admin: 04/20/24 19:33 Dose: 4 mg Documented By: MARGAUX Risperidone (Risperidone 2 Mg Tablet) 2 mg PO BID [facility] [place] Last Admin: 04/21/24 08:46 Dose: 2 mg Documented By: MONIKA Sodium Chloride (0.9 % Sodium Chloride Flush 3 Ml Syringe) [address] [facility] Last Admin: 04/21/24 08:48 Dose: 3 ml Documented By: MONIKA Zolpidem Tartrate (Zolpidem Tartrate 5 Mg Tablet) 10 mg PO BEDTIME [facility] Last Admin: 04/20/24 21:59 Dose: 10 mg Documented By: ODRISM Labs 04/21/24 06:18 04/21/24 06:18 Labs: Laboratory Results - last 24 hr 04/20/24 04/20/24 04/20/24 11:32 16:11 21:10 MCV MCH MCHC RDW Plt Count MPV Absolute Nucleated RBC Nucleated RBC % (auto) Anion Gap Estim Creat Clear Calc Estimated GFR POC Glucose 133 H 140 H 179 H Random Glucose Calcium 04/21/24 04/21/24 06:18 07:17 MCV 81.2 MCH 27.1 MCHC 33.3 RDW 14.9 Plt Count 466 H MPV 8.5 L Absolute Nucleated RBC 0.000 Nucleated RBC % (auto) 0.0 Anion Gap 12 Estim Creat Clear Calc 88.3 Estimated GFR > 60 POC Glucose 160 H Random Glucose 174 H Calcium 8.9 D Microbiology Microbiology Results: Microbiology 04/19/24 04:26 Blood Culture - Final Blood - Venous Coag negative Staphylococcus 04/19/24 13:22 Blood Culture - Preliminary Blood - Venous No growth after 24 hours. Assessment and Plan (1) Fluid volume depletion: Status: Acute (2) Abdominal pain: Status: Acute (3) Diabetes mellitus with gastroparesis: Status: Acute Plan A 48 years old lady with PMH of DMI on insulin pump, Gastroparesis, GERD, Bipolar among others who presents to the hospital with abdominal pain, N\V for 1 day [employer]. Intractable Nausea and vomiting likely related to Gastroparesis vs cyclic vomiting syndrome CT scan negative for intraabdominal problem Continue D5LR dc Empirical Ceftriaxone blood sugar better controlled with her insulin pump Zofran PRN Reglan ATC Advance diet as tolerated Acute hypokalemia replacement given, follow BMP Uncontrolled HTN improved now Continue Metoprolol, Hold Midodrine Hx Gastroparesis Reglan for hx of Gastroparesis GERD Famotidine and Omeprazole DVT PPx Lovenox The patient will need overnight hospital stay for treatment of intractable vomiting, intolerance to PO, electrolytes imbalane pending improvement in ability to tolerate PO. Quality Stroke Does the patient have a stroke diagnosis?: No VTE Prior VTE?: No VTE Risk Level:: Medical - moderate - high VTE Device Contraindication: Treatment Not Indicated VTE Drug Contraindication: N/A - Med Ordered
[2024-04-21 11:23] LABS: Glucose, Whole Blood 112 mg/dL (60-115)
[2024-04-21 16:40] LABS: Glucose, Whole Blood 138 mg/dL (60-115)
[2024-04-21] MEDS: ondansetron HCL 4 MG/2 ML VIAL IVPUSH (19:49)
[2024-04-21 20:46] LABS: Glucose, Whole Blood 191 mg/dL (60-115)
[2024-04-21] MEDS: Metoclopramide HCl 10 MG/2 ML VIAL IVPUSH (21:13)
[2024-04-21] MEDS: Zolpidem Tartrate 5 MG TABLET 10 MG PO (22:32)
[2024-04-22] VITALS (7 sets, daily range): BP systolic 115–132; BP diastolic 56–76; PULSE 82–92; RESP 16–20; TEMP 36.1–37.7; O2SAT 95–99
[2024-04-22] MEDS: Dextrose 5 % and Lactated Ring 1,000 ML 125 ML IVCONT ×2 (02:32→16:26)
[2024-04-22] MEDS: HYDROmorphone HCl 0.5 MG/0.5 ML SYRINGE IVPUSH ×5 (04:24→20:24)
[2024-04-22 07:12] LABS: Glucose, Whole Blood 102 mg/dL (60-115)
[2024-04-22 07:23] LABS: Anion Gap 13 (12-20); Blood Urea Nitrogen 6 mg/dL (9-16); Calcium 8.8 mg/dL (8.4-10.2); Carbon Dioxide 26 mmol/L (22-29); Chloride 102 mmol/L (96-108); Creatinine Clr Calc Pharmacy 101.2; Estimated Glomerular Filt Rate > 60; Glucose Random 116 mg/dL (60-115); Sodium 138 mmol/L (135-145)
[2024-04-22] MEDS: 0.9 % Sodium Chloride Flush 3 ML SYRINGE IVFLUSH ×4 (08:17→21:10)
[2024-04-22] MEDS: Omeprazole 20 MG CAPSULE.DR PO ×2 (08:18→21:09)
[2024-04-22] MEDS: Metoclopramide HCl 10 MG/2 ML VIAL 5 MG IVPUSH ×3 (08:18→16:17)
[2024-04-22] MEDS: lamoTRIgine 100 MG TABLET 200 MG PO ×2 (08:18→21:09)
[2024-04-22] MEDS: methocarbamoL 500 MG TABLET PO ×3 (08:18→21:09)
[2024-04-22] MEDS: risperiDONE 2 MG TABLET PO ×2 (08:18→21:09)
[2024-04-22] MEDS: Metoprolol Tartrate 25 MG TABLET PO ×2 (08:18→21:09)
[2024-04-22] MEDS: Potassium Chloride/H20 10 MEQ/100 ML PIGGYBACK 100 MEQ IV ×4 (08:45→14:20)
[2024-04-22] MEDS: Enoxaparin Sodium 40 MG/0.4 ML SYRINGE SUBCUT (09:46)
--- NOTE | 2024-04-22 10:45 | HO.PM.IMPN ---
Subjective Subjective Date of Service: 04/22/24 Interval History: not tolerating po Physical Exam Vital Signs: Vital Signs: Last Vital Signs Temp 97.5 F 04/22/24 07:52 Pulse 89 04/22/24 08:18 Resp 18 04/22/24 07:52 BP 118/60 04/22/24 08:18 Pulse Ox 96 04/22/24 07:52 O2 Del Method Room Air 04/22/24 07:52 BMI result Body Mass Index 28.2 Const: Other: Constitutional : Awake, interactive, not in distress Neck : Normal inspection, Supple Cardiovascular : RRR, no JVP, no lower extremity edema Respiratory : good bilateral air entry, no crackles, wheezes or rhonchi Gastrointestinal: soft, lax, Normal bowel sounds, generalized tenderness mainly epigastric Skin : Warm, Dry Neurological : Alert & oriented x3, No focal deficit Objective Data Active Medications Acetaminophen (Acetaminophen 325 Mg Tablet) 650 mg PO Q6H PRN PRN Reason: Pain, Mild (Pain Scale 1-3), fever or headache Calcium Carbonate (Calcium Carbonate 750 Mg Tab.Chew) 750 mg PO Q4H PRN PRN Reason: Heartburn Enoxaparin Sodium (Enoxaparin Sodium 40 Mg/0.4 Ml Syringe) 40 mg SUBCUT Q24H [facility] Last Admin: 04/22/24 09:46 Dose: 40 mg Documented By: CATHERINE Hydromorphone HCl (Hydromorphone Hcl 0.5 Mg/0.5 Ml Syringe) 0.5 mg IVPUSH Q4H PRN; Protocol PRN Reason: Pain, Severe (Pain Scale 7-10) Last Admin: 04/22/24 08:17 Dose: 0.5 mg Documented By: CATHERINE Dextrose/Lactated Ringer's (D5lr) 1,000 mls @ 125 mls/hr IVCONT .Q8H [facility] Last Infusion: 04/22/24 08:46 Dose: 0 mls/hr Documented By: CATHERINE Potassium Chloride (Potassium Chloride/H20) 10 meq in 100 mls @ 100 mls/hr IV Q1H [facility] Stop: 04/22/24 12:29 Last Admin: 04/22/24 09:47 Dose: 100 mls/hr Documented By: CATHERINE Insulin Human Lispro (Insulin Lispro 100 Unit/Ml 3 Ml Vial) 0 unit SUBCUT QIDACHS [facility]; Protocol Last Admin: 04/22/24 08:12 Dose: Not Given Documented By: CATHERINE Non-Admin Reason: No Insulin Coverage Lamotrigine (Lamotrigine 100 Mg Tablet) 200 mg PO BID [facility] Last Admin: 04/22/24 08:18 Dose: 200 mg Documented By: CATHERINE Lorazepam (Lorazepam 1 Mg Tablet) 1 mg PO TID PRN PRN Reason: Anxiety Magnesium Hydroxide (Milk Of Magnesia 30 Ml Oral.Susp) 30 ml PO DAILY PRN PRN Reason: Constipation Melatonin (Melatonin 3 Mg Tablet) 6 mg PO BEDTIME PRN PRN Reason: Insomnia Methocarbamol (Methocarbamol 500 Mg Tablet) 500 mg PO TID [facility] Last Admin: 04/22/24 08:18 Dose: 500 mg Documented By: CATHERINE Metoclopramide HCl (Metoclopramide Hcl 10 Mg/2 Ml Vial) 5 mg IVPUSH TIDWM [facility] Last Admin: 04/22/24 08:18 Dose: 5 mg Documented By: CATHERINE Metoprolol Tartrate (Metoprolol Tartrate 25 Mg Tablet) 25 mg PO BID [facility]; Protocol Last Admin: 04/22/24 08:18 Dose: 25 mg Documented By: CATHERINE Omeprazole (Omeprazole 20 Mg Capsule.Dr) 20 mg PO BID [facility] Last Admin: 04/22/24 08:18 Dose: 20 mg Documented By: CATHERINE Ondansetron HCl (Ondansetron Hcl 4 Mg/2 Ml Vial) 4 mg IVPUSH Q8H PRN PRN Reason: Nausea and Vomiting Last Admin: 04/21/24 19:49 Dose: 4 mg Documented By: BROOKLYNN Risperidone (Risperidone 2 Mg Tablet) 2 mg PO BID [facility] Last Admin: 04/22/24 08:18 Dose: 2 mg Documented By: CATHERINE Sodium Chloride (0.9 % Sodium Chloride Flush 3 Ml Syringe) 3 ml IVFLUSH QSHIFT [facility] Last Admin: 04/22/24 08:17 Dose: 3 ml Documented By: CATHERINE Zolpidem Tartrate (Zolpidem Tartrate 5 Mg Tablet) 10 mg PO BEDTIME [facility] Last Admin: 04/21/24 22:32 Dose: 10 mg Documented By: BROOKLYNN Labs 04/21/24 06:18 04/22/24 06:46 Labs: Laboratory Results - last 24 hr 04/21/24 04/21/24 04/21/24 11:08 16:28 20:33 Anion Gap Estim Creat Clear Calc Estimated GFR POC Glucose 112 138 H 191 H Random Glucose Calcium 04/22/24 04/22/24 06:46 07:03 Anion Gap 13 Estim Creat Clear Calc 101.2 Estimated GFR > 60 POC Glucose 102 Random Glucose 116 H Calcium 8.8 Microbiology Microbiology Results: Microbiology 04/20/24 13:17 Blood Culture - Preliminary Blood - Venous No growth after 24 hours. 04/20/24 13:17 Blood Culture - Preliminary Blood - Venous No growth after 24 hours. 04/19/24 13:22 Blood Culture - Preliminary Blood - Venous No growth after 48 hours. 04/19/24 04:26 Blood Culture - Final Blood - Venous Coag negative Staphylococcus Assessment and Plan (1) Fluid volume depletion: Status: Acute (2) Abdominal pain: Status: Acute (3) Diabetes mellitus with gastroparesis: Status: Acute Plan 48F PMH of DMI on insulin pump, Gastroparesis, GERD, Bipolar presented to the hospital with abdominal pain, N\V Intractable Nausea and vomiting likely related to Gastroparesis vs cyclic vomiting syndrome CT scan negative for intraabdominal problem Continue D5LR blood sugar better controlled with her insulin pump Zofran PRN Reglan ATC Advance diet as tolerated Acute hypokalemia replacement given, follow BMP Uncontrolled HTN improved now Continue Metoprolol, Hold Midodrine Hx Gastroparesis Reglan for hx of Gastroparesis GERD Famotidine and Omeprazole DVT PPx Lovenox reason for continued hospitalization:not tolerating po Quality Stroke Does the patient have a stroke diagnosis?: No VTE Prior VTE?: No VTE Risk Level:: Medical - moderate - high VTE Device Contraindication: Treatment Not Indicated VTE Drug Contraindication: N/A - Med Ordered
--- NOTE | 2024-04-22 10:48 | MHC.CM.PN ---
Per MD rounds no discharge today. Patient is not tolerating PO intake. DP home self care. Patient spouse will provide transport home.
[2024-04-22 10:58] LABS: Glucose, Whole Blood 150 mg/dL (60-115)
[2024-04-22 16:59] LABS: Glucose, Whole Blood 181 mg/dL (60-115)
[2024-04-22] MEDS: Insulin Lispro 100 UNIT/ML 3 ML VIAL SUBCUT (17:35)
[2024-04-22] MEDS: Metoclopramide HCl 10 MG/2 ML VIAL IVPUSH (20:50)
[2024-04-22 21:05] LABS: Glucose, Whole Blood 116 mg/dL (60-115)
[2024-04-22] MEDS: Zolpidem Tartrate 5 MG TABLET 10 MG PO (21:09)
[2024-04-23] VITALS (7 sets, daily range): BP systolic 110–159; BP diastolic 57–72; PULSE 81–91; RESP 18–20; TEMP 36.1–37.6; O2SAT 96–99
[2024-04-23] MEDS: HYDROmorphone HCl 0.5 MG/0.5 ML SYRINGE IVPUSH ×6 (00:24→20:16)
[2024-04-23] MEDS: Dextrose 5 % and Lactated Ring 1,000 ML 125 ML IVCONT (00:32)
[2024-04-23 02:44] LABS: Glucose, Whole Blood 296 mg/dL (60-115)
[2024-04-23 05:05] LABS: Glucose, Whole Blood 386 mg/dL (60-115)
[2024-04-23] MEDS: Insulin Lispro 100 UNIT/ML 3 ML VIAL SUBCUT ×5 (05:06→20:25)
[2024-04-23 06:47] LABS: Hematocrit 29.6 % (37.0-47.0); Hemoglobin 9.8 g/dl (12.0-16.0); Mean Corpuscular HGB Conc 33.1 g/dl (31.0-35.0); Mean Corpuscular Hemoglobin 27.1 pg (27.0-33.0); Platelet Count 454 X10*3/uL (160-400); Red Blood Count 3.61 X10*6/uL (4.20-5.50); White Blood Count 9.7 X10*3/uL (4.8-10.8)
[2024-04-23 07:01] LABS: Anion Gap 13 (12-20); Blood Urea Nitrogen 7 mg/dL (9-16); Calcium 8.6 mg/dL (8.4-10.2); Carbon Dioxide 27 mmol/L (22-29); Chloride 99 mmol/L (96-108); Creatinine Clr Calc Pharmacy 82.1; Estimated Glomerular Filt Rate > 60; Sodium 136 mmol/L (135-145)
[2024-04-23 07:20] LABS: Glucose Fasting 359 mg/dL (60-99)
[2024-04-23] MEDS: Metoclopramide HCl 10 MG/2 ML VIAL 5 MG IVPUSH ×3 (08:13→16:34)
[2024-04-23] MEDS: Potassium Chloride/H20 10 MEQ/100 ML PIGGYBACK 100 MEQ IV ×4 (08:13→16:34)
[2024-04-23 08:14] LABS: Glucose, Whole Blood 231 mg/dL (60-115)
[2024-04-23] MEDS: Omeprazole 20 MG CAPSULE.DR PO ×2 (08:14→20:21)
[2024-04-23] MEDS: Metoprolol Tartrate 25 MG TABLET PO ×2 (08:14→20:21)
[2024-04-23] MEDS: risperiDONE 2 MG TABLET PO ×2 (08:14→20:21)
[2024-04-23] MEDS: methocarbamoL 500 MG TABLET PO ×3 (08:14→20:21)
[2024-04-23] MEDS: lamoTRIgine 100 MG TABLET 200 MG PO ×2 (08:14→20:21)
[2024-04-23] MEDS: Enoxaparin Sodium 40 MG/0.4 ML SYRINGE SUBCUT (09:27)
--- NOTE | 2024-04-23 09:43 | HO.PM.IMPN ---
Subjective Subjective Date of Service: 04/23/24 Interval History: Still with nausea vomiting abdominal pain Physical Exam Vital Signs: Vital Signs: Last Vital Signs Temp 97.4 F 04/23/24 07:48 Pulse 87 04/23/24 08:14 Resp 20 04/23/24 07:48 BP 117/65 04/23/24 08:14 Pulse Ox 99 04/23/24 07:48 O2 Del Method Room Air 04/23/24 04:00 BMI result Body Mass Index 28.2 Const: Other: Constitutional : Awake, interactive, not in distress Neck : Normal inspection, Supple Cardiovascular : RRR, no JVP, no lower extremity edema Respiratory : good bilateral air entry, no crackles, wheezes or rhonchi Gastrointestinal: soft, lax, Normal bowel sounds, generalized tenderness mainly epigastric Skin : Warm, Dry Neurological : Alert & oriented x3, No focal deficit Objective Data Active Medications Acetaminophen (Acetaminophen 325 Mg Tablet) 650 mg PO Q6H PRN PRN Reason: Pain, Mild (Pain Scale 1-3), fever or headache Calcium Carbonate (Calcium Carbonate 750 Mg Tab.Chew) 750 mg PO Q4H PRN PRN Reason: Heartburn Enoxaparin Sodium (Enoxaparin Sodium 40 Mg/0.4 Ml Syringe) 40 mg SUBCUT Q24H [facility] Last Admin: 04/23/24 09:27 Dose: 40 mg Documented By: CATHERINE Hydromorphone HCl (Hydromorphone Hcl 0.5 Mg/0.5 Ml Syringe) 0.5 mg IVPUSH Q4H PRN; Protocol PRN Reason: Pain, Severe (Pain Scale 7-10) Last Admin: 04/23/24 08:30 Dose: 0.5 mg Documented By: CATHERINE Dextrose/Lactated Ringer's (D5lr) 1,000 mls @ 125 mls/hr IVCONT .Q8H [facility] Last Admin: 04/23/24 09:32 Dose: Not Given Documented By: CATHERINE Non-Admin Reason: fluids on hold Potassium Chloride (Potassium Chloride/H20) 10 meq in 100 mls @ 100 mls/hr IV Q1H [facility] Stop: 04/23/24 11:29 Last Infusion: 04/23/24 09:29 Dose: 0 mls/hr Documented By: CATHERINE Insulin Human Lispro (Insulin Lispro 100 Unit/Ml 3 Ml Vial) 0 unit SUBCUT QIDACHS [facility]; Protocol Last Admin: 04/23/24 05:06 Dose: 10 unit Documented By: BROOKLYNN Comments: per Dr. Farooq Lamotrigine (Lamotrigine 100 Mg Tablet) 200 mg PO BID [facility] Last Admin: 04/23/24 08:14 Dose: 200 mg Documented By: CATHERINE Lorazepam (Lorazepam 1 Mg Tablet) 1 mg PO TID PRN PRN Reason: Anxiety Magnesium Hydroxide (Milk Of Magnesia 30 Ml Oral.Susp) 30 ml PO DAILY PRN PRN Reason: Constipation Melatonin (Melatonin 3 Mg Tablet) 6 mg PO BEDTIME PRN PRN Reason: Insomnia Methocarbamol (Methocarbamol 500 Mg Tablet) 500 mg PO TID [facility] Last Admin: 04/23/24 08:14 Dose: 500 mg Documented By: CATHERINE Metoclopramide HCl (Metoclopramide Hcl 10 Mg/2 Ml Vial) 5 mg IVPUSH TIDWM [facility] Last Admin: 04/23/24 08:13 Dose: 5 mg Documented By: CATHERINE Metoprolol Tartrate (Metoprolol Tartrate 25 Mg Tablet) 25 mg PO BID [facility]; Protocol Last Admin: 04/23/24 08:14 Dose: 25 mg Documented By: CATHERINE Omeprazole (Omeprazole 20 Mg Capsule.) 20 mg PO BID [facility] Last Admin: 04/23/24 08:14 Dose: 20 mg Documented By: CATHERINE Ondansetron HCl (Ondansetron Hcl 4 Mg/2 Ml Vial) 4 mg IVPUSH Q8H PRN PRN Reason: Nausea and Vomiting Last Admin: 04/21/24 19:49 Dose: 4 mg Documented By: BROOLKYNN Risperidone (Risperidone 2 Mg Tablet) 2 mg PO BID [facility] Last Admin: 04/23/24 08:14 Dose: 2 mg Documented By: CATHERINE Sodium Chloride (0.9 % Sodium Chloride Flush 3 Ml Syringe) 3 ml IVFLUSH QSHIFT [facility] Last Admin: 04/22/24 21:10 Dose: 3 ml Documented By: BROOKLYNN Zolpidem Tartrate (Zolpidem Tartrate 5 Mg Tablet) 10 mg PO BEDTIME [facility] Last Admin: 04/22/24 21:09 Dose: 10 mg Documented By: BROOKLYNN Labs 04/23/24 05:58 04/23/24 05:58 Labs: Laboratory Results - last 24 hr 04/22/24 04/22/24 04/22/24 10:44 16:53 20:54 MCV MCH MCHC RDW Plt Count MPV Absolute Nucleated RBC Nucleated RBC % (auto) Anion Gap Estim Creat Clear Calc Estimated GFR POC Glucose 150 H 181 H 116 H Fasting Glucose Calcium 04/23/24 04/23/24 04/23/24 02:40 05:01 05:58 MCV 82.0 MCH 27.1 MCHC 33.1 RDW 15.0 Plt Count 454 H MPV 9.0 L Absolute Nucleated RBC 0.000 Nucleated RBC % (auto) 0.0 Anion Gap 13 Estim Creat Clear Calc 82.1 Estimated GFR > 60 POC Glucose 296 H 386 H* Fasting Glucose 359 H* Calcium 8.6 04/23/24 08:05 MCV MCH MCHC RDW Plt Count MPV Absolute Nucleated RBC Nucleated RBC % (auto) Anion Gap Estim Creat Clear Calc Estimated GFR POC Glucose 231 H Fasting Glucose Calcium Microbiology Microbiology Results: Microbiology 04/20/24 13:17 Blood Culture - Preliminary Blood - Venous No growth after 48 hours. 04/20/24 13:17 Blood Culture - Preliminary Blood - Venous No growth after 48 hours. Assessment and Plan (1) Fluid volume depletion: Status: Acute (2) Abdominal pain: Status: Acute (3) Diabetes mellitus with gastroparesis: Status: Acute Plan 48F PMH of DMI on insulin pump, Gastroparesis, GERD, Bipolar presented to the hospital with abdominal pain, N\V Intractable Nausea and vomiting likely related to Gastroparesis vs cyclic vomiting syndrome CT scan negative for intraabdominal problem Continue D5LR blood sugar better controlled with her insulin pump Zofran PRN Reglan ATC Advance diet as tolerated Acute hypokalemia replacement given, follow BMP, check Mag Uncontrolled HTN improved now Continue Metoprolol, Hold Midodrine Hx Gastroparesis Reglan for hx of Gastroparesis GERD Famotidine and Omeprazole DVT PPx Lovenox reason for continued hospitalization:not tolerating po Quality Stroke Does the patient have a stroke diagnosis?: No VTE Prior VTE?: No VTE Risk Level:: Medical - moderate - high VTE Device Contraindication: Treatment Not Indicated VTE Drug Contraindication: N/A - Med Ordered
--- NOTE | 2024-04-23 10:52 | MHC.CM.PN ---
Per MD rounds no discharge today. Patient is not toleration PO intake. DP Home self care. Patient will arrange for transport home.
[2024-04-23 12:37] LABS: Glucose, Whole Blood 158 mg/dL (60-115)
[2024-04-23 16:16] LABS: Glucose, Whole Blood 184 mg/dL (60-115)
[2024-04-23] MEDS: ondansetron HCL 4 MG/2 ML VIAL IVPUSH (20:16)
[2024-04-23] MEDS: Zolpidem Tartrate 5 MG TABLET 10 MG PO (20:21)
[2024-04-23 20:26] LABS: Glucose, Whole Blood 342 mg/dL (60-115)
[2024-04-23] MEDS: 0.9 % Sodium Chloride Flush 3 ML SYRINGE IVFLUSH (20:27)
[2024-04-24] MEDS: HYDROmorphone HCl 0.5 MG/0.5 ML SYRINGE IVPUSH ×5 (00:30→20:04)
[2024-04-24] MEDS: LORazepam 1 MG TABLET PO ×3 (00:42→21:22)
[2024-04-24 03:13] VITALS: BP 120/70; PULSE 84; RESP 18; TEMP 36.9; O2SAT 98
[2024-04-24 06:46] LABS: Hemoglobin 9.3 g/dl (12.0-16.0); Mean Corpuscular HGB Conc 33.2 g/dl (31.0-35.0); Mean Corpuscular Hemoglobin 27.4 pg (27.0-33.0); Mean Corpuscular Volume 82.6 fL (80.0-98.0); Mean Platelet Volume 8.9 fL (9.4-12.3); Platelet Count 446 X10*3/uL (160-400); Red Blood Count 3.39 X10*6/uL (4.20-5.50); Red Cell Distribution Width 15.3 % (11.0-16.0); White Blood Count 10.7 X10*3/uL (4.8-10.8)
[2024-04-24 07:00] LABS: Glucose, Whole Blood 340 mg/dL (60-115)
[2024-04-24 07:19] LABS: Alanine Aminotransferase 16 U/L (0-31); Albumin Level 3.6 g/dL (3.5-5.0); Alkaline Phosphatase 114 U/L (39-117); Anion Gap 13 (12-20); Aspartate Amino Transferase 13 U/L (5-31); Bilirubin Direct 0.2 mg/dL (0.0-0.5); Bilirubin Total 0.4 mg/dL (0.0-1.0); Blood Urea Nitrogen 10 mg/dL (9-16); Calcium 8.6 mg/dL (8.4-10.2); Carbon Dioxide 27 mmol/L (22-29); Chloride 98 mmol/L (96-108); Creatinine Clr Calc Pharmacy 81.2; Estimated Glomerular Filt Rate > 60; Magnesium 1.7 mg/dL (1.6-2.6); Potassium 3.7 mmol/L (3.3-5.1); Sodium 134 mmol/L (135-145); Total Protein 6.2 g/dL (6.5-8.0)
[2024-04-24 07:26] VITALS: BP 143/77; PULSE 99; RESP 18; TEMP 36.5; O2SAT 97
[2024-04-24 07:36] LABS: Glucose Fasting 369 mg/dL (60-99)
[2024-04-24] MEDS: lamoTRIgine 100 MG TABLET 200 MG PO ×2 (08:22→21:22)
[2024-04-24] MEDS: methocarbamoL 500 MG TABLET PO ×3 (08:22→21:23)
[2024-04-24] MEDS: Metoclopramide HCl 10 MG/2 ML VIAL 5 MG IVPUSH ×3 (08:23→17:15)
[2024-04-24] MEDS: Insulin Lispro 100 UNIT/ML 3 ML VIAL SUBCUT ×4 (08:23→21:21)
[2024-04-24] MEDS: Insulin Glargine,Hum.rec.anlog 100 UNIT/ML 10 ML VIAL 15 UNIT SUBCUT (08:23)
[2024-04-24] MEDS: Metoprolol Tartrate 25 MG TABLET PO ×2 (08:23→21:24)
[2024-04-24] MEDS: 0.9 % Sodium Chloride 1,000 ML 80 ML IVCONT ×2 (08:23→21:25)
[2024-04-24] MEDS: risperiDONE 2 MG TABLET PO ×2 (08:23→21:23)
[2024-04-24] MEDS: Omeprazole 20 MG CAPSULE.DR PO ×2 (08:23→21:21)
[2024-04-24] MEDS: 0.9 % Sodium Chloride Flush 3 ML SYRINGE IVFLUSH (08:24)
--- NOTE | 2024-04-24 08:47 | P.PNIM_ITS ---
Subjective Subjective Date of Service: 04/24/24 Interval History: still with nausea and abd pain, but improved, requested trial of small bites of soft foods Physical Exam 2 Vital Signs: Vital Signs: Last Vital Signs Temp 97.7 F 04/24/24 07:26 Pulse 99 04/24/24 07:26 Resp 18 04/24/24 07:26 BP 143/77 H 04/24/24 07:26 Pulse Ox 97 04/24/24 07:26 O2 Del Method Room Air 04/24/24 07:26 BMI result Body Mass Index 28.2 Const: Other: Constitutional : Awake, interactive, not in distress Neck : Normal inspection, Supple Cardiovascular : RRR, no JVP, no lower extremity edema Respiratory : good bilateral air entry, no crackles, wheezes or rhonchi Gastrointestinal: soft, lax, Normal bowel sounds, generalized tenderness mainly epigastric Skin : Warm, Dry Neurological : Alert & oriented x3, No focal deficit Objective Data Active Medications Acetaminophen (Acetaminophen 325 Mg Tablet) 650 mg PO Q6H PRN PRN Reason: Pain, Mild (Pain Scale 1-3), fever or headache Calcium Carbonate (Calcium Carbonate 750 Mg Tab.Chew) 750 mg PO Q4H PRN PRN Reason: Heartburn Enoxaparin Sodium (Enoxaparin Sodium 40 Mg/0.4 Ml Syringe) 40 mg SUBCUT Q24H [facility] Last Admin: 04/23/24 09:27 Dose: 40 mg Documented By: CATHERINE Hydromorphone HCl (Hydromorphone Hcl 0.5 Mg/0.5 Ml Syringe) 0.5 mg IVPUSH Q4H PRN; Protocol PRN Reason: Pain, Severe (Pain Scale 7-10) Last Admin: 04/24/24 05:15 Dose: 0.5 mg Documented By: FLORECITA Sodium Chloride (Ns) 1,000 mls @ 80 mls/hr IVCONT .[id number] [facility] Last Admin: 04/24/24 08:23 Dose: 80 mls/hr Documented By: DARLIN Insulin Glargine (Insulin Glargine,Hum.Rec.Anlog 100 Unit/Ml 10 Ml Vial) 15 unit SUBCUT DAILY [facility] Last Admin: 04/24/24 08:23 Dose: 15 unit Documented By: DARLIN Insulin Human Lispro (Insulin Lispro 100 Unit/Ml 3 Ml Vial) 0 unit SUBCUT QIDACHS [facility]; Protocol Last Admin: 04/24/24 08:23 Dose: 8 unit Documented By: DARLIN Lamotrigine (Lamotrigine 100 Mg Tablet) 200 mg PO BID [facility] Last Admin: 04/24/24 08:22 Dose: 200 mg Documented By: DARLIN Lorazepam (Lorazepam 1 Mg Tablet) 1 mg PO TID PRN PRN Reason: Anxiety Last Admin: 04/24/24 08:22 Dose: 1 mg Documented By: DARLIN Magnesium Hydroxide (Milk Of Magnesia 30 Ml Oral.Susp) 30 ml PO DAILY PRN PRN Reason: Constipation Melatonin (Melatonin 3 Mg Tablet) 6 mg PO BEDTIME PRN PRN Reason: Insomnia Methocarbamol (Methocarbamol 500 Mg Tablet) 500 mg PO TID [facility] Last Admin: 04/24/24 08:22 Dose: 500 mg Documented By: DARLIN Metoclopramide HCl (Metoclopramide Hcl 10 Mg/2 Ml Vial) 5 mg IVPUSH TIDWM [facility] Last Admin: 04/24/24 08:23 Dose: 5 mg Documented By: DARLIN Metoprolol Tartrate (Metoprolol Tartrate 25 Mg Tablet) 25 mg PO BID [facility]; Protocol Last Admin: 04/24/24 08:23 Dose: 25 mg Documented By: DARLIN Omeprazole (Omeprazole 20 Mg Capsule.Dr) 20 mg PO BID [facility] Last Admin: 04/24/24 08:23 Dose: 20 mg Documented By: DARLIN Ondansetron HCl (Ondansetron Hcl 4 Mg/2 Ml Vial) 4 mg IVPUSH Q8H PRN PRN Reason: Nausea and Vomiting Last Admin: 04/23/24 20:16 Dose: 4 mg Documented By: FLORECITA Risperidone (Risperidone 2 Mg Tablet) 2 mg PO BID [facility] Last Admin: 04/24/24 08:23 Dose: 2 mg Documented By: DARLIN Sodium Chloride (0.9 % Sodium Chloride Flush 3 Ml Syringe) 3 ml IVFLUSH QSHIFT [facility] Last Admin: 04/24/24 08:24 Dose: 3 ml Documented By: DARLIN Zolpidem Tartrate (Zolpidem Tartrate 5 Mg Tablet) 10 mg PO BEDTIME [facility] Last Admin: 04/23/24 20:21 Dose: 10 mg Documented By: FLORECITA Labs 04/24/24 06:30 04/24/24 06:30 Labs: Laboratory Results - last 24 hr 04/23/24 04/23/24 04/23/24 11:41 16:05 20:23 MCV MCH MCHC RDW Plt Count MPV Absolute Nucleated RBC Nucleated RBC % (auto) Anion Gap Estim Creat Clear Calc Estimated GFR POC Glucose 158 H 184 H 342 H Fasting Glucose Calcium Magnesium Total Bilirubin Direct Bilirubin AST ALT Alkaline Phosphatase Total Protein Albumin 04/24/24 04/24/24 06:30 06:53 MCV 82.6 MCH 27.4 MCHC 33.2 RDW 15.3 Plt Count 446 H MPV 8.9 L Absolute Nucleated RBC 0.000 Nucleated RBC % (auto) 0.0 Anion Gap 13 Estim Creat Clear Calc 81.2 Estimated GFR > 60 POC Glucose 340 H Fasting Glucose 369 H* Calcium 8.6 Magnesium 1.7 Total Bilirubin 0.4 Direct Bilirubin 0.2 AST 13 ALT 16 Alkaline Phosphatase 114 Total Protein 6.2 L Albumin 3.6 Assessment and Plan (1) Fluid volume depletion: Status: Acute (2) Abdominal pain: Status: Acute (3) Diabetes mellitus with gastroparesis: Status: Acute Plan 48F PMH of DMI on insulin pump, Gastroparesis, GERD, Bipolar presented to the hospital with abdominal pain, N\V Intractable Nausea and vomiting likely related to Gastroparesis vs cyclic vomiting syndrome CT scan negative for intraabdominal problem Continue NS blood sugar better controlled with her insulin pump Zofran PRN Reglan ATC Advance diet as tolerated (advanced to solids NDD2 today) DM1 with hyperglycemia lantus 15 units, sliding scale Acute hypokalemia replaced Uncontrolled HTN improved now Continue Metoprolol, Hold Midodrine GERD Famotidine and Omeprazole DVT PPx Lovenox reason for continued hospitalization:awaiting tolerance of po Quality Stroke Does the patient have a stroke diagnosis?: No VTE Prior VTE?: No VTE Risk Level:: Medical - moderate - high VTE Device Contraindication: Treatment Not Indicated VTE Drug Contraindication: N/A - Med Ordered
[2024-04-24] MEDS: Enoxaparin Sodium 40 MG/0.4 ML SYRINGE SUBCUT (09:41)
--- NOTE | 2024-04-24 10:20 | MHC.CM.PN ---
Per ROUNDS discussion, Patient is not yet medically cleared for dc (nausea and abdominal pain); home is the goal and CM will continue to follow.
[2024-04-24 11:01] LABS: Glucose, Whole Blood 279 mg/dL (60-115)
[2024-04-24 11:22] VITALS: BP 112/54; PULSE 85; RESP 18; TEMP 36.3; O2SAT 93
[2024-04-24 15:15] LABS: Glucose, Whole Blood 233 mg/dL (60-115)
[2024-04-24 16:00] VITALS: BP 101/56; PULSE 81; RESP 18; O2SAT 95
[2024-04-24 19:25] VITALS: BP 157/83; PULSE 100; RESP 20; TEMP 36.7; O2SAT 99
[2024-04-24 21:05] LABS: Glucose, Whole Blood 163 mg/dL (60-115)
[2024-04-24] MEDS: Melatonin 3 MG TABLET 6 MG PO (21:23)
[2024-04-25] VITALS (7 sets, daily range): BP systolic 108–131; BP diastolic 58–71; PULSE 81–89; RESP 16–20; TEMP 36–37.1; O2SAT 94–98
[2024-04-25] MEDS: HYDROmorphone HCl 0.5 MG/0.5 ML SYRINGE IVPUSH ×6 (01:02→23:12)
[2024-04-25] MEDS: ondansetron HCL 4 MG/2 ML VIAL IVPUSH (06:34)
[2024-04-25] MEDS: LORazepam 1 MG TABLET PO ×3 (06:35→22:01)
[2024-04-25 07:42] LABS: Glucose, Whole Blood 250 mg/dL (60-115)
[2024-04-25] MEDS: Metoclopramide HCl 10 MG/2 ML VIAL 5 MG IVPUSH ×3 (08:19→18:10)
[2024-04-25] MEDS: methocarbamoL 500 MG TABLET PO ×3 (08:19→21:55)
[2024-04-25] MEDS: Metoprolol Tartrate 25 MG TABLET PO ×2 (08:19→21:55)
[2024-04-25] MEDS: Omeprazole 20 MG CAPSULE.DR PO ×2 (08:19→21:55)
[2024-04-25] MEDS: risperiDONE 2 MG TABLET PO ×2 (08:19→21:55)
[2024-04-25] MEDS: lamoTRIgine 100 MG TABLET 200 MG PO ×2 (08:19→21:55)
[2024-04-25] MEDS: Insulin Glargine,Hum.rec.anlog 100 UNIT/ML 10 ML VIAL 15 UNIT SUBCUT (08:20)
[2024-04-25] MEDS: Insulin Lispro 100 UNIT/ML 3 ML VIAL SUBCUT ×3 (08:21→21:56)
[2024-04-25 08:53] LABS: Anion Gap 11 (12-20); Blood Urea Nitrogen 9 mg/dL (9-16); Calcium 8.4 mg/dL (8.4-10.2); Carbon Dioxide 27 mmol/L (22-29); Chloride 100 mmol/L (96-108); Creatinine Clr Calc Pharmacy 91.8; Estimated Glomerular Filt Rate > 60; Glucose Fasting 253 mg/dL (60-99); Potassium 3.1 mmol/L (3.3-5.1); Sodium 135 mmol/L (135-145)
[2024-04-25 09:01] LABS: Hematocrit 27.3 % (37.0-47.0); Hemoglobin 9.2 g/dl (12.0-16.0); Mean Corpuscular HGB Conc 33.7 g/dl (31.0-35.0); Mean Corpuscular Hemoglobin 27.5 pg (27.0-33.0); Mean Corpuscular Volume 81.7 fL (80.0-98.0); Mean Platelet Volume 8.9 fL (9.4-12.3); Platelet Count 467 X10*3/uL (160-400); Red Blood Count 3.34 X10*6/uL (4.20-5.50); Red Cell Distribution Width 15.6 % (11.0-16.0); White Blood Count 9.5 X10*3/uL (4.8-10.8)
--- NOTE | 2024-04-25 10:09 | HO.PM.IMPN ---
Subjective Subjective Date of Service: 04/25/24 Interval History: seen and examined this am still with pain an nausea tolerated only a yogurt for dinner yesterday Review of Systems Negative except HPI/interval history. Physical Exam Vital Signs: Vital Signs: Last Vital Signs Temp 98.0 F 04/25/24 08:00 Pulse 89 04/25/24 08:00 Resp 20 04/25/24 08:00 BP 123/64 04/25/24 08:00 Pulse Ox 94 04/25/24 08:00 O2 Del Method Room Air 04/25/24 08:00 BMI result Body Mass Index 28.2 Const: Other: Constitutional : Awake, interactive, not in distress Neck : Normal inspection, Supple Cardiovascular : RRR, no JVP, no lower extremity edema Respiratory : good bilateral air entry, no crackles, wheezes or rhonchi Gastrointestinal: soft, lax, Normal bowel sounds, generalized tenderness mainly epigastric Skin : Warm, Dry Neurological : Alert & oriented x3, No focal deficit Objective Data Active Medications Acetaminophen (Acetaminophen 325 Mg Tablet) 650 mg PO Q6H PRN PRN Reason: Pain, Mild (Pain Scale 1-3), fever or headache Calcium Carbonate (Calcium Carbonate 750 Mg Tab.Chew) 750 mg PO Q4H PRN PRN Reason: Heartburn Enoxaparin Sodium (Enoxaparin Sodium 40 Mg/0.4 Ml Syringe) 40 mg SUBCUT Q24H [facility] Last Admin: 04/24/24 09:41 Dose: 40 mg Documented By: DARLIN Hydromorphone HCl (Hydromorphone Hcl 0.5 Mg/0.5 Ml Syringe) 0.5 mg IVPUSH Q4H PRN; Protocol PRN Reason: severe pain Last Admin: 04/25/24 06:34 Dose: 0.5 mg Documented By: VITOR Sodium Chloride (Ns) 1,000 mls @ 80 mls/hr IVCONT .[id number] [facility] Last Admin: 04/24/24 21:25 Dose: 80 mls/hr Documented By: VITOR Insulin Glargine (Insulin Glargine,Hum.Rec.Anlog 100 Unit/Ml 10 Ml Vial) 15 unit SUBCUT DAILY [facility] Last Admin: 04/25/24 08:20 Dose: 15 unit Documented By: DARLIN Insulin Human Lispro (Insulin Lispro 100 Unit/Ml 3 Ml Vial) 0 unit SUBCUT QIDACHS [facility]; Protocol Last Admin: 04/25/24 08:21 Dose: 4 unit Documented By: DARLIN Lamotrigine (Lamotrigine 100 Mg Tablet) 200 mg PO BID [facility] Last Admin: 04/25/24 08:19 Dose: 200 mg Documented By: DARLIN Lorazepam (Lorazepam 1 Mg Tablet) 1 mg PO Q6H PRN PRN Reason: anxiety/restlessness Last Admin: 04/25/24 06:35 Dose: 1 mg Documented By: VITOR Magnesium Hydroxide (Milk Of Magnesia 30 Ml Oral.Susp) 30 ml PO DAILY PRN PRN Reason: Constipation Melatonin (Melatonin 3 Mg Tablet) 6 mg PO BEDTIME PRN PRN Reason: Insomnia Last Admin: 04/24/24 21:23 Dose: 6 mg Documented By: VITOR Methocarbamol (Methocarbamol 500 Mg Tablet) 500 mg PO TID [facility] Last Admin: 04/25/24 08:19 Dose: 500 mg Documented By: DARLIN Metoclopramide HCl (Metoclopramide Hcl 10 Mg/2 Ml Vial) 5 mg IVPUSH TIDWM [facility] Last Admin: 04/25/24 08:19 Dose: 5 mg Documented By: DARLIN Metoprolol Tartrate (Metoprolol Tartrate 25 Mg Tablet) 25 mg PO BID [facility]; Protocol Last Admin: 04/25/24 08:19 Dose: 25 mg Documented By: DARLIN Omeprazole (Omeprazole 20 Mg Capsule.Dr) 20 mg PO BID [facility] Last Admin: 04/25/24 08:19 Dose: 20 mg Documented By: DARLIN Ondansetron HCl (Ondansetron Hcl 4 Mg/2 Ml Vial) 4 mg IVPUSH Q8H PRN PRN Reason: Nausea and Vomiting Last Admin: 04/25/24 06:34 Dose: 4 mg Documented By: VITOR Risperidone (Risperidone 2 Mg Tablet) 2 mg PO BID [facility] Last Admin: 04/25/24 08:19 Dose: 2 mg Documented By: DARLIN Sodium Chloride (0.9 % Sodium Chloride Flush 3 Ml Syringe) 3 ml IVFLUSH QSHIFT [facility] Last Admin: 04/25/24 08:12 Dose: Not Given Documented By: DARLIN Non-Admin Reason: IV Running Labs 04/25/24 08:11 04/25/24 08:10 Labs: Laboratory Results - last 24 hr 04/24/24 04/24/24 04/24/24 10:51 15:12 20:53 MCV MCH MCHC RDW Plt Count MPV Absolute Nucleated RBC Nucleated RBC % (auto) Anion Gap Estim Creat Clear Calc Estimated GFR POC Glucose 279 H 233 H 163 H Fasting Glucose Calcium 04/25/24 04/25/24 04/25/24 07:28 08:10 08:11 MCV 81.7 MCH 27.5 MCHC 33.7 RDW 15.6 Plt Count 467 H MPV 8.9 L Absolute Nucleated RBC 0.000 Nucleated RBC % (auto) 0.0 Anion Gap 11 L Estim Creat Clear Calc 91.8 Estimated GFR > 60 POC Glucose 250 H Fasting Glucose 253 H Calcium 8.4 Microbiology Microbiology Results: Microbiology 04/19/24 13:22 Blood Culture - Final Blood - Venous No growth after 5 days. Assessment and Plan (1) Fluid volume depletion: Status: Acute (2) Abdominal pain: Status: Acute (3) Diabetes mellitus with gastroparesis: Status: Acute Plan 48F PMH of DMI on insulin pump, Gastroparesis, GERD, Bipolar presented to the hospital with abdominal pain, N\V Intractable Nausea and vomiting likely related to Gastroparesis vs cyclic vomiting syndrome CT scan negative for intraabdominal problem Continue NS blood sugar better controlled with her insulin pump Zofran PRN Reglan ATC still not eating much with less than 25% of meals last 24 hours -- will continue IVF and supportive care DM1 with hyperglycemia lantus 15 units, sliding scale Acute hypokalemia replaced Uncontrolled HTN improved now Continue Metoprolol, Hold Midodrine GERD Famotidine and Omeprazole DVT PPx Lovenox reason for continued hospitalization:awaiting tolerance of po Quality Stroke Does the patient have a stroke diagnosis?: No VTE Prior VTE?: No VTE Risk Level:: Medical - moderate - high VTE Device Contraindication: Treatment Not Indicated VTE Drug Contraindication: N/A - Med Ordered
[2024-04-25] MEDS: Enoxaparin Sodium 40 MG/0.4 ML SYRINGE SUBCUT (10:43)
[2024-04-25] MEDS: 0.9 % Sodium Chloride 1,000 ML 80 ML IVCONT ×2 (10:45→22:02)
[2024-04-25 12:01] LABS: Glucose, Whole Blood 218 mg/dL (60-115)
[2024-04-25 16:34] LABS: Glucose, Whole Blood 139 mg/dL (60-115)
[2024-04-25 21:33] LABS: Glucose, Whole Blood 171 mg/dL (60-115)
--- NOTE | 2024-04-25 22:30 | PC.NURSE ---
tele stickers causing irritation to pts skin per okay to d/c tele pt in SR no ectopy
[2024-04-25] MEDS: Zolpidem Tartrate 5 MG TABLET PO ×2 (23:13→23:49)
[2024-04-25] MEDS: 0.9 % Sodium Chloride Flush 3 ML SYRINGE IVFLUSH (23:13)
[2024-04-26] VITALS: BP 128/64; PULSE 88; RESP 20; TEMP 36.6; O2SAT 96
[2024-04-26] MEDS: HYDROmorphone HCl 0.5 MG/0.5 ML SYRINGE IVPUSH ×5 (03:21→20:10)
[2024-04-26] MEDS: ondansetron HCL 4 MG/2 ML VIAL IVPUSH ×2 (03:25→14:28)
[2024-04-26 04:00] VITALS: BP 139/74; PULSE 86; RESP 20; TEMP 36.5; O2SAT 99
[2024-04-26] MEDS: Metoclopramide HCl 10 MG/2 ML VIAL 5 MG IVPUSH ×3 (07:22→17:08)
[2024-04-26] MEDS: 0.9 % Sodium Chloride Flush 3 ML SYRINGE IVFLUSH (07:23)
[2024-04-26 07:46] LABS: Glucose, Whole Blood 182 mg/dL (60-115)
[2024-04-26 08:00] VITALS: BP 117/58; PULSE 92; RESP 18; TEMP 36.4; O2SAT 96
[2024-04-26] MEDS: Enoxaparin Sodium 40 MG/0.4 ML SYRINGE SUBCUT (09:12)
[2024-04-26] MEDS: methocarbamoL 500 MG TABLET PO ×3 (09:12→20:10)
[2024-04-26] MEDS: lamoTRIgine 100 MG TABLET 200 MG PO ×2 (09:12→20:10)
[2024-04-26] MEDS: risperiDONE 2 MG TABLET PO ×2 (09:12→20:10)
[2024-04-26] MEDS: Omeprazole 20 MG CAPSULE.DR PO ×2 (09:13→20:10)
[2024-04-26] MEDS: Metoprolol Tartrate 25 MG TABLET PO ×2 (09:13→20:10)
[2024-04-26] MEDS: Insulin Glargine,Hum.rec.anlog 100 UNIT/ML 10 ML VIAL 15 UNIT SUBCUT (09:14)
[2024-04-26] MEDS: Insulin Lispro 100 UNIT/ML 3 ML VIAL SUBCUT ×4 (09:14→21:48)
--- NOTE | 2024-04-26 09:24 | P.PNIM_ITS ---
Subjective Subjective Date of Service: 04/26/24 Interval History: asking to advance to regular solids Physical Exam 2 Vital Signs: Vital Signs: Last Vital Signs Temp 97.5 F 04/26/24 08:00 Pulse 92 04/26/24 08:00 Resp 18 04/26/24 08:00 BP 117/58 L 04/26/24 08:00 Pulse Ox 96 04/26/24 08:00 O2 Del Method Room Air 04/26/24 08:00 BMI result Body Mass Index 28.2 Const: Other: Constitutional : Awake, interactive, not in distress Neck : Normal inspection, Supple Cardiovascular : RRR, no JVP, no lower extremity edema Respiratory : good bilateral air entry, no crackles, wheezes or rhonchi Gastrointestinal: soft, lax, Normal bowel sounds, generalized tenderness mainly epigastric Skin : Warm, Dry Neurological : Alert & oriented x3, No focal deficit Objective Data Active Medications Acetaminophen (Acetaminophen 325 Mg Tablet) 650 mg PO Q6H PRN PRN Reason: Pain, Mild (Pain Scale 1-3), fever or headache Calcium Carbonate (Calcium Carbonate 750 Mg Tab.Chew) 750 mg PO Q4H PRN PRN Reason: Heartburn Enoxaparin Sodium (Enoxaparin Sodium 40 Mg/0.4 Ml Syringe) 40 mg SUBCUT Q24H [facility] Last Admin: 04/26/24 09:12 Dose: 40 mg Documented By: DARLIN Hydromorphone HCl (Hydromorphone Hcl 0.5 Mg/0.5 Ml Syringe) 0.5 mg IVPUSH Q4H PRN; Protocol PRN Reason: severe pain Last Admin: 04/26/24 07:22 Dose: 0.5 mg Documented By: DARLIN Sodium Chloride (Ns) 1,000 mls @ 80 mls/hr IVCONT .[id number] [facility] Last Admin: 04/25/24 22:02 Dose: 80 mls/hr Documented By: EVA Insulin Glargine (Insulin Glargine,Hum.Rec.Anlog 100 Unit/Ml 10 Ml Vial) 15 unit SUBCUT DAILY [facility] Last Admin: 04/26/24 09:14 Dose: 15 unit Documented By: DARLIN Insulin Human Lispro (Insulin Lispro 100 Unit/Ml 3 Ml Vial) 0 unit SUBCUT QIDACHS [facility]; Protocol Last Admin: 04/26/24 09:14 Dose: 2 unit Documented By: DARLIN Lamotrigine (Lamotrigine 100 Mg Tablet) 200 mg PO BID [facility] Last Admin: 04/26/24 09:12 Dose: 200 mg Documented By: DARLIN Lorazepam (Lorazepam 1 Mg Tablet) 1 mg PO Q6H PRN PRN Reason: anxiety/restlessness Last Admin: 04/25/24 22:01 Dose: 1 mg Documented By: EVA Magnesium Hydroxide (Milk Of Magnesia 30 Ml Oral.Susp) 30 ml PO DAILY PRN PRN Reason: Constipation Melatonin (Melatonin 3 Mg Tablet) 6 mg PO BEDTIME PRN PRN Reason: Insomnia Last Admin: 04/24/24 21:23 Dose: 6 mg Documented By: VITOR Methocarbamol (Methocarbamol 500 Mg Tablet) 500 mg PO TID [facility] Last Admin: 04/26/24 09:12 Dose: 500 mg Documented By: DARLIN Metoclopramide HCl (Metoclopramide Hcl 10 Mg/2 Ml Vial) 5 mg IVPUSH TIDWM [facility] Last Admin: 04/26/24 07:22 Dose: 5 mg Documented By: DARLIN Metoprolol Tartrate (Metoprolol Tartrate 25 Mg Tablet) 25 mg PO BID [facility]; Protocol Last Admin: 04/26/24 09:13 Dose: 25 mg Documented By: DARLIN Omeprazole (Omeprazole 20 Mg Capsule.Dr) 20 mg PO BID [facility] Last Admin: 04/26/24 09:13 Dose: 20 mg Documented By: DARLIN Ondansetron HCl (Ondansetron Hcl 4 Mg/2 Ml Vial) 4 mg IVPUSH Q8H PRN PRN Reason: Nausea and Vomiting Last Admin: 04/26/24 03:25 Dose: 4 mg Documented By: VITOR Risperidone (Risperidone 2 Mg Tablet) 2 mg PO BID [facility] Last Admin: 04/26/24 09:12 Dose: 2 mg Documented By: DARLIN Sodium Chloride (0.9 % Sodium Chloride Flush 3 Ml Syringe) 3 ml IVFLUSH QSHIFT [facility] Last Admin: 04/26/24 07:23 Dose: 3 ml Documented By: DARLIN Zolpidem Tartrate (Zolpidem Tartrate 5 Mg Tablet) 5 mg PO BEDTIME PRN PRN Reason: Insomnia Last Admin: 04/25/24 23:13 Dose: 5 mg Documented By: VITOR Labs 04/25/24 08:11 04/25/24 08:10 Labs: Laboratory Results - last 24 hr 04/25/24 04/25/24 04/25/24 11:34 15:58 21:27 POC Glucose 218 H 139 H 171 H 04/26/24 07:24 POC Glucose 182 H Microbiology Microbiology Results: Microbiology 04/20/24 13:17 Blood Culture - Final Blood - Venous No growth after 5 days. 04/20/24 13:17 Blood Culture - Final Blood - Venous No growth after 5 days. Assessment and Plan (1) Fluid volume depletion: Status: Acute (2) Abdominal pain: Status: Acute (3) Diabetes mellitus with gastroparesis: Status: Acute Plan 48F PMH of DMI on insulin pump, Gastroparesis, GERD, Bipolar presented to the hospital with abdominal pain, N\V Intractable Nausea and vomiting likely related to Gastroparesis vs cyclic vomiting syndrome CT scan negative for intraabdominal problem Continue NS blood sugar better controlled with her insulin pump Zofran PRN Reglan ATC still not eating much with less than 25% of meals last 24 hours -- will continue IVF and supportive care, advancing to regular solids DM1 with hyperglycemia lantus 15 units, sliding scale Acute hypokalemia replaced Uncontrolled HTN improved now Continue Metoprolol, Hold Midodrine GERD Famotidine and Omeprazole DVT PPx Lovenox reason for continued hospitalization:awaiting tolerance of po Quality Stroke Does the patient have a stroke diagnosis?: No VTE Prior VTE?: No VTE Risk Level:: Medical - moderate - high VTE Device Contraindication: Treatment Not Indicated VTE Drug Contraindication: N/A - Med Ordered
[2024-04-26 11:24] LABS: Glucose, Whole Blood 183 mg/dL (60-115)
[2024-04-26] MEDS: Potassium Chloride/H20 10 MEQ/100 ML PIGGYBACK 100 MEQ IV ×4 (11:49→16:05)
[2024-04-26] MEDS: 0.9 % Sodium Chloride 1,000 ML 80 ML IVCONT (11:50)
[2024-04-26 12:00] VITALS: BP 123/63; PULSE 77; RESP 18; TEMP 37.1; O2SAT 95
[2024-04-26 15:38] VITALS: BP 144/73; PULSE 83; RESP 15; TEMP 37.1; O2SAT 98
[2024-04-26 16:57] LABS: Glucose, Whole Blood 161 mg/dL (60-115)
[2024-04-26 19:09] VITALS: BP 132/61; PULSE 87; RESP 16; TEMP 37.1; O2SAT 97
[2024-04-26] MEDS: LORazepam 1 MG TABLET PO (20:10)
[2024-04-26] MEDS: Zolpidem Tartrate 5 MG TABLET PO (20:17)
[2024-04-26 20:50] LABS: Glucose, Whole Blood 225 mg/dL (60-115)
[2024-04-27] VITALS (7 sets, daily range): BP systolic 103–130; BP diastolic 55–68; PULSE 81–90; RESP 16–20; TEMP 36.1–37.3; O2SAT 93–98
[2024-04-27] MEDS: HYDROmorphone HCl 0.5 MG/0.5 ML SYRINGE IVPUSH ×6 (00:19→22:10)
[2024-04-27] MEDS: 0.9 % Sodium Chloride 1,000 ML 80 ML IVCONT ×2 (04:42→17:27)
[2024-04-27 07:05] LABS: Chloride 101 mmol/L (96-108); Potassium 3.7 mmol/L (3.3-5.1); Sodium 137 mmol/L (135-145)
[2024-04-27 07:24] LABS: Anion Gap 12 (12-20); Blood Urea Nitrogen 6 mg/dL (9-16); Calcium 8.7 mg/dL (8.4-10.2); Carbon Dioxide 27 mmol/L (22-29); Creatinine Clr Calc Pharmacy 82.1; Estimated Glomerular Filt Rate > 60; Glucose Fasting 309 mg/dL (60-99); Magnesium 1.8 mg/dL (1.6-2.6)
[2024-04-27 07:33] LABS: Glucose, Whole Blood 317 mg/dL (60-115)
[2024-04-27] MEDS: Metoclopramide HCl 10 MG/2 ML VIAL 5 MG IVPUSH ×3 (08:09→17:25)
[2024-04-27] MEDS: Omeprazole 20 MG CAPSULE.DR PO ×2 (08:09→22:16)
[2024-04-27] MEDS: risperiDONE 2 MG TABLET PO ×2 (08:09→22:20)
[2024-04-27] MEDS: methocarbamoL 500 MG TABLET PO ×3 (08:09→22:16)
[2024-04-27] MEDS: Acetaminophen 325 MG TABLET 650 MG PO (08:10)
[2024-04-27] MEDS: Insulin Lispro 100 UNIT/ML 3 ML VIAL SUBCUT ×3 (08:10→22:15)
[2024-04-27] MEDS: lamoTRIgine 100 MG TABLET 200 MG PO ×2 (08:10→22:16)
[2024-04-27] MEDS: Metoprolol Tartrate 25 MG TABLET PO ×2 (08:10→22:16)
[2024-04-27] MEDS: Insulin Glargine,Hum.rec.anlog 100 UNIT/ML 10 ML VIAL 15 UNIT SUBCUT (08:11)
[2024-04-27] MEDS: 0.9 % Sodium Chloride Flush 3 ML SYRINGE IVFLUSH ×3 (08:12→22:20)
[2024-04-27] MEDS: LORazepam 1 MG TABLET PO ×2 (08:24→22:17)
--- NOTE | 2024-04-27 09:15 | P.PNIM_ITS ---
Subjective Subjective Date of Service: 04/27/24 Interval History: still vomiting Physical Exam 2 Vital Signs: Vital Signs: Last Vital Signs Temp 97.5 F 04/27/24 07:27 Pulse 83 04/27/24 07:27 Resp 18 04/27/24 07:27 BP 110/63 04/27/24 07:27 Pulse Ox 97 04/27/24 07:27 O2 Del Method Room Air 04/27/24 07:27 BMI result Body Mass Index 28.2 Const: Other: Constitutional : Awake, interactive, not in distress Neck : Normal inspection, Supple Cardiovascular : RRR, no JVP, no lower extremity edema Respiratory : good bilateral air entry, no crackles, wheezes or rhonchi Gastrointestinal: soft, lax, Normal bowel sounds, generalized tenderness mainly epigastric Skin : Warm, Dry Neurological : Alert & oriented x3, No focal deficit Objective Data Active Medications Acetaminophen (Acetaminophen 325 Mg Tablet) 650 mg PO Q6H PRN PRN Reason: Pain, Mild (Pain Scale 1-3), fever or headache Last Admin: 04/27/24 08:10 Dose: 650 mg Documented By: PATRICIA Calcium Carbonate (Calcium Carbonate 750 Mg Tab.Chew) 750 mg PO Q4H PRN PRN Reason: Heartburn Enoxaparin Sodium (Enoxaparin Sodium 40 Mg/0.4 Ml Syringe) 40 mg SUBCUT Q24H [facility] Last Admin: 04/26/24 09:12 Dose: 40 mg Documented By: DARLIN Hydromorphone HCl (Hydromorphone Hcl 0.5 Mg/0.5 Ml Syringe) 0.5 mg IVPUSH Q4H PRN; Protocol PRN Reason: severe pain Last Admin: 04/27/24 08:23 Dose: 0.5 mg Documented By: PATRICIA Sodium Chloride (Ns) 1,000 mls @ 80 mls/hr IVCONT .[id number] [facility] Last Admin: 04/27/24 04:42 Dose: 80 mls/hr Documented By: SERENE Insulin Glargine (Insulin Glargine,Hum.Rec.Anlog 100 Unit/Ml 10 Ml Vial) 15 unit SUBCUT DAILY [facility] Last Admin: 04/27/24 08:11 Dose: 15 unit Documented By: PATRICIA Insulin Human Lispro (Insulin Lispro 100 Unit/Ml 3 Ml Vial) 0 unit SUBCUT QIDACHS [facility]; Protocol Last Admin: 04/27/24 08:10 Dose: 8 unit Documented By: PATRICIA Lamotrigine (Lamotrigine 100 Mg Tablet) 200 mg PO BID [facility] Last Admin: 04/27/24 08:10 Dose: 200 mg Documented By: PATRICIA Lorazepam (Lorazepam 1 Mg Tablet) 1 mg PO Q6H PRN PRN Reason: anxiety/restlessness Last Admin: 04/27/24 08:24 Dose: 1 mg Documented By: PATRICIA Magnesium Hydroxide (Milk Of Magnesia 30 Ml Oral.Susp) 30 ml PO DAILY PRN PRN Reason: Constipation Melatonin (Melatonin 3 Mg Tablet) 6 mg PO BEDTIME PRN PRN Reason: Insomnia Last Admin: 04/24/24 21:23 Dose: 6 mg Documented By: VITOR Methocarbamol (Methocarbamol 500 Mg Tablet) 500 mg PO TID [facility] Last Admin: 04/27/24 08:09 Dose: 500 mg Documented By: PATRICIA Metoclopramide HCl (Metoclopramide Hcl 10 Mg/2 Ml Vial) 5 mg IVPUSH TIDWM [facility] Last Admin: 04/27/24 08:09 Dose: 5 mg Documented By: PATRICIA Metoprolol Tartrate (Metoprolol Tartrate 25 Mg Tablet) 25 mg PO BID [facility]; Protocol Last Admin: 04/27/24 08:10 Dose: 25 mg Documented By: PATRICIA Omeprazole (Omeprazole 20 Mg Capsule.Dr) 20 mg PO BID [facility] Last Admin: 04/27/24 08:09 Dose: 20 mg Documented By: PATRICIA Ondansetron HCl (Ondansetron Hcl 4 Mg/2 Ml Vial) 4 mg IVPUSH Q8H PRN PRN Reason: Nausea and Vomiting Last Admin: 04/26/24 14:28 Dose: 4 mg Documented By: DARLIN Risperidone (Risperidone 2 Mg Tablet) 2 mg PO BID [facility] Last Admin: 04/27/24 08:09 Dose: 2 mg Documented By: PATRICIA Sodium Chloride (0.9 % Sodium Chloride Flush 3 Ml Syringe) 3 ml IVFLUSH QSHIFT [facility] Last Admin: 04/27/24 08:12 Dose: 3 ml Documented By: PATRICIA Zolpidem Tartrate (Zolpidem Tartrate 5 Mg Tablet) 5 mg PO BEDTIME PRN PRN Reason: Insomnia Last Admin: 04/26/24 20:17 Dose: 5 mg Documented By: GREG Labs 04/25/24 08:11 04/27/24 06:02 Labs: Laboratory Results - last 24 hr 04/26/24 04/26/24 04/26/24 11:02 16:38 20:46 Hold Purple Top Anion Gap Estim Creat Clear Calc Estimated GFR POC Glucose 183 H 161 H 225 H Fasting Glucose Calcium Magnesium 04/27/24 04/27/24 06:02 07:29 Hold Purple Top SEE NOTE Anion Gap 12 Estim Creat Clear Calc 82.1 Estimated GFR > 60 POC Glucose 317 H Fasting Glucose 309 H Calcium 8.7 Magnesium 1.8 Assessment and Plan (1) Fluid volume depletion: Status: Acute (2) Abdominal pain: Status: Acute (3) Diabetes mellitus with gastroparesis: Status: Acute Plan 48F PMH of DMI on insulin pump, Gastroparesis, GERD, Bipolar presented to the hospital with abdominal pain, N\V Intractable Nausea and vomiting likely related to Gastroparesis vs cyclic vomiting syndrome CT scan negative for intraabdominal problem Continue NS Zofran PRN Reglan ATC still vomitting DM1 with hyperglycemia lantus 15 units, sliding scale Acute hypokalemia replaced Uncontrolled HTN improved now Continue Metoprolol, Hold Midodrine GERD Famotidine and Omeprazole DVT PPx Lovenox reason for continued hospitalization:awaiting tolerance of po Quality Stroke Does the patient have a stroke diagnosis?: No VTE Prior VTE?: No VTE Risk Level:: Medical - moderate - high VTE Device Contraindication: Treatment Not Indicated VTE Drug Contraindication: N/A - Med Ordered
[2024-04-27 11:34] LABS: Glucose, Whole Blood 217 mg/dL (60-115)
[2024-04-27] MEDS: Enoxaparin Sodium 40 MG/0.4 ML SYRINGE SUBCUT (12:55)
[2024-04-27 16:47] LABS: Glucose, Whole Blood 62 mg/dL (60-115)
[2024-04-27 21:23] LABS: Glucose, Whole Blood 200 mg/dL (60-115)
[2024-04-27] MEDS: Zolpidem Tartrate 5 MG TABLET PO (22:17)
[2024-04-28 04:00] VITALS: BP 134/69; PULSE 94; RESP 16; TEMP 37; O2SAT 96
[2024-04-28] MEDS: HYDROmorphone HCl 0.5 MG/0.5 ML SYRINGE IVPUSH ×4 (04:01→21:42)
[2024-04-28] MEDS: 0.9 % Sodium Chloride 1,000 ML 80 ML IVCONT (06:08)
[2024-04-28 06:48] LABS: Hematocrit 28.4 % (37.0-47.0); Hemoglobin 9.2 g/dl (12.0-16.0); Mean Corpuscular HGB Conc 32.4 g/dl (31.0-35.0); Mean Corpuscular Volume 83.3 fL (80.0-98.0); Mean Platelet Volume 8.9 fL (9.4-12.3); Platelet Count 487 X10*3/uL (160-400); Red Blood Count 3.41 X10*6/uL (4.20-5.50); Red Cell Distribution Width 15.7 % (11.0-16.0)
[2024-04-28 07:06] LABS: Anion Gap 12 (12-20); Blood Urea Nitrogen 6 mg/dL (9-16); Calcium 8.4 mg/dL (8.4-10.2); Carbon Dioxide 27 mmol/L (22-29); Chloride 103 mmol/L (96-108); Creatinine Clr Calc Pharmacy 89.5; Estimated Glomerular Filt Rate > 60; Glucose Fasting 250 mg/dL (60-99); Magnesium 1.7 mg/dL (1.6-2.6); Potassium 3.5 mmol/L (3.3-5.1); Sodium 138 mmol/L (135-145)
[2024-04-28 07:42] VITALS: BP 119/67; PULSE 91; RESP 18; TEMP 36.8; O2SAT 97
[2024-04-28 08:06] LABS: Glucose, Whole Blood 275 mg/dL (60-115)
[2024-04-28] MEDS: 0.9 % Sodium Chloride Flush 3 ML SYRINGE IVFLUSH ×3 (09:06→20:49)
[2024-04-28] MEDS: Metoprolol Tartrate 25 MG TABLET PO ×2 (09:07→20:47)
[2024-04-28] MEDS: Insulin Lispro 100 UNIT/ML 3 ML VIAL SUBCUT ×4 (09:07→21:40)
[2024-04-28] MEDS: Enoxaparin Sodium 40 MG/0.4 ML SYRINGE SUBCUT (09:07)
[2024-04-28] MEDS: lamoTRIgine 100 MG TABLET 200 MG PO ×2 (09:07→20:47)
[2024-04-28] MEDS: risperiDONE 2 MG TABLET PO ×2 (09:07→20:47)
[2024-04-28] MEDS: Omeprazole 20 MG CAPSULE.DR PO ×2 (09:07→20:48)
[2024-04-28] MEDS: methocarbamoL 500 MG TABLET PO ×3 (09:07→20:48)
[2024-04-28] MEDS: Insulin Glargine,Hum.rec.anlog 100 UNIT/ML 10 ML VIAL 15 UNIT SUBCUT (09:09)
[2024-04-28] MEDS: Metoclopramide HCl 10 MG/2 ML VIAL 5 MG IVPUSH ×4 (09:09→16:30)
[2024-04-28] MEDS: LORazepam 1 MG TABLET PO ×2 (09:11→20:47)
--- NOTE | 2024-04-28 09:25 | P.PNIM_ITS ---
Subjective Subjective Date of Service: 04/28/24 Interval History: still vomiting Physical Exam 2 Vital Signs: Vital Signs: Last Vital Signs Temp 98.3 F 04/28/24 07:42 Pulse 91 04/28/24 07:42 Resp 18 04/28/24 07:42 BP 119/67 04/28/24 07:42 Pulse Ox 97 04/28/24 07:42 O2 Del Method Room Air 04/28/24 07:42 BMI result Body Mass Index 28.2 Const: Other: Constitutional : Awake, interactive, not in distress Neck : Normal inspection, Supple Cardiovascular : RRR, no JVP, no lower extremity edema Respiratory : good bilateral air entry, no crackles, wheezes or rhonchi Gastrointestinal: soft, lax, Normal bowel sounds, generalized tenderness mainly epigastric Skin : Warm, Dry Neurological : Alert & oriented x3, No focal deficit Objective Data Active Medications Acetaminophen (Acetaminophen 325 Mg Tablet) 650 mg PO Q6H PRN PRN Reason: Pain, Mild (Pain Scale 1-3), fever or headache Last Admin: 04/27/24 08:10 Dose: 650 mg Documented By: PATRICIA Calcium Carbonate (Calcium Carbonate 750 Mg Tab.Chew) 750 mg PO Q4H PRN PRN Reason: Heartburn Enoxaparin Sodium (Enoxaparin Sodium 40 Mg/0.4 Ml Syringe) 40 mg SUBCUT Q24H [facility] Last Admin: 04/28/24 09:07 Dose: 40 mg Documented By: PATRICIA Hydromorphone HCl (Hydromorphone Hcl 0.5 Mg/0.5 Ml Syringe) 0.5 mg IVPUSH Q4H PRN; Protocol PRN Reason: severe pain Last Admin: 04/28/24 04:01 Dose: 0.5 mg Documented By: GREG Insulin Glargine (Insulin Glargine,Hum.Rec.Anlog 100 Unit/Ml 10 Ml Vial) 15 unit SUBCUT DAILY [facility] Last Admin: 04/28/24 09:09 Dose: 15 unit Documented By: PATRICIA Insulin Human Lispro (Insulin Lispro 100 Unit/Ml 3 Ml Vial) 0 unit SUBCUT QIDACHS [facility]; Protocol Last Admin: 04/28/24 09:07 Dose: 6 unit Documented By: PATRICIA Lamotrigine (Lamotrigine 100 Mg Tablet) 200 mg PO BID [facility] Last Admin: 04/28/24 09:07 Dose: 200 mg Documented By: PATRICIA Lorazepam (Lorazepam 1 Mg Tablet) 1 mg PO Q6H PRN PRN Reason: anxiety/restlessness Last Admin: 04/28/24 09:11 Dose: 1 mg Documented By: PATRICIA Magnesium Hydroxide (Milk Of Magnesia 30 Ml Oral.Susp) 30 ml PO DAILY PRN PRN Reason: Constipation Melatonin (Melatonin 3 Mg Tablet) 6 mg PO BEDTIME PRN PRN Reason: Insomnia Last Admin: 04/24/24 21:23 Dose: 6 mg Documented By: VITOR Methocarbamol (Methocarbamol 500 Mg Tablet) 500 mg PO TID [facility] Last Admin: 04/28/24 09:07 Dose: 500 mg Documented By: PATRICIA Metoclopramide HCl (Metoclopramide Hcl 10 Mg/2 Ml Vial) 5 mg IVPUSH TIDWM [facility] Last Admin: 04/28/24 09:09 Dose: 5 mg Documented By: PATRICIA Metoprolol Tartrate (Metoprolol Tartrate 25 Mg Tablet) 25 mg PO BID [facility]; Protocol Last Admin: 04/28/24 09:07 Dose: 25 mg Documented By: PATRICIA Omeprazole (Omeprazole 20 Mg Capsule.Dr) 20 mg PO BID [facility] Last Admin: 04/28/24 09:07 Dose: 20 mg Documented By: PATRICIA Ondansetron HCl (Ondansetron Hcl 4 Mg/2 Ml Vial) 4 mg IVPUSH Q8H PRN PRN Reason: Nausea and Vomiting Last Admin: 04/26/24 14:28 Dose: 4 mg Documented By: DARLIN Risperidone (Risperidone 2 Mg Tablet) 2 mg PO BID [facility] Last Admin: 04/28/24 09:07 Dose: 2 mg Documented By: PATRICIA Sodium Chloride (0.9 % Sodium Chloride Flush 3 Ml Syringe) 3 ml IVFLUSH QSHIFT [facility] Last Admin: 04/28/24 09:06 Dose: 3 ml Documented By: PATRICIA Zolpidem Tartrate (Zolpidem Tartrate 5 Mg Tablet) 5 mg PO BEDTIME PRN PRN Reason: Insomnia Last Admin: 04/27/24 22:17 Dose: 5 mg Documented By: MUSTAPHA Labs 04/28/24 06:15 04/28/24 06:15 Labs: Laboratory Results - last 24 hr 04/27/24 04/27/24 04/27/24 11:26 16:41 21:12 MCV MCH MCHC RDW Plt Count MPV Absolute Nucleated RBC Nucleated RBC % (auto) Anion Gap Estim Creat Clear Calc Estimated GFR POC Glucose 217 H 62 200 H Fasting Glucose Calcium Magnesium 04/28/24 04/28/24 06:15 07:47 MCV 83.3 MCH 27.0 MCHC 32.4 RDW 15.7 Plt Count 487 H MPV 8.9 L Absolute Nucleated RBC 0.000 Nucleated RBC % (auto) 0.0 Anion Gap 12 Estim Creat Clear Calc 89.5 Estimated GFR > 60 POC Glucose 275 H Fasting Glucose 250 H Calcium 8.4 Magnesium 1.7 Assessment and Plan (1) Fluid volume depletion: Status: Acute (2) Abdominal pain: Status: Acute (3) Diabetes mellitus with gastroparesis: Status: Acute Plan 48F PMH of DMI on insulin pump, Gastroparesis, GERD, Bipolar presented to the hospital with abdominal pain, N\V Intractable Nausea and vomiting likely related to Gastroparesis vs cyclic vomiting syndrome CT scan negative for intraabdominal problem Continue NS Zofran PRN Reglan ATC still vomitting DM1 with hyperglycemia lantus 15 units, sliding scale Acute hypokalemia replaced Uncontrolled HTN improved now Continue Metoprolol, Hold Midodrine GERD Famotidine and Omeprazole DVT PPx Lovenox reason for continued hospitalization:awaiting tolerance of po Quality Stroke Does the patient have a stroke diagnosis?: No VTE Prior VTE?: No VTE Risk Level:: Medical - moderate - high VTE Device Contraindication: Treatment Not Indicated VTE Drug Contraindication: N/A - Med Ordered
[2024-04-28 11:19] VITALS: BP 116/64; PULSE 82; RESP 18; TEMP 37.1; O2SAT 94
[2024-04-28 12:03] LABS: Glucose, Whole Blood 283 mg/dL (60-115)
--- NOTE | 2024-04-28 13:31 | MHC.CM.PN ---
Per MD rounds no discharge today. Patient with Gastroparesis is not tolerating diet. DP home self care. Pts spouse will provide transportation home.
[2024-04-28 15:13] LABS: Glucose, Whole Blood 177 mg/dL (60-115)
[2024-04-28 16:00] VITALS: BP 111/56; PULSE 83; RESP 18; TEMP 36.4; O2SAT 96
[2024-04-28 19:26] VITALS: BP 120/62; PULSE 86; RESP 16; TEMP 37.1; O2SAT 94
[2024-04-28 21:14] LABS: Glucose, Whole Blood 212 mg/dL (60-115)
[2024-04-29] VITALS: BP 121/73; PULSE 86; RESP 20; TEMP 37.1; O2SAT 96
[2024-04-29] MEDS: HYDROmorphone HCl 0.5 MG/0.5 ML SYRINGE IVPUSH (01:59)
[2024-04-29 04:00] VITALS: BP 113/59; PULSE 81; RESP 16; TEMP 37.1; O2SAT 96
[2024-04-29 07:10] LABS: Hematocrit 28.6 % (37.0-47.0); Hemoglobin 9.4 g/dl (12.0-16.0); Mean Corpuscular HGB Conc 32.9 g/dl (31.0-35.0); Mean Corpuscular Hemoglobin 27.3 pg (27.0-33.0); Mean Corpuscular Volume 83.1 fL (80.0-98.0); Mean Platelet Volume 9.1 fL (9.4-12.3); Platelet Count 494 X10*3/uL (160-400); Red Blood Count 3.44 X10*6/uL (4.20-5.50); Red Cell Distribution Width 15.5 % (11.0-16.0); White Blood Count 7.4 X10*3/uL (4.8-10.8)
[2024-04-29 07:36] LABS: Anion Gap 13 (12-20); Blood Urea Nitrogen 10 mg/dL (9-16); Calcium 8.7 mg/dL (8.4-10.2); Carbon Dioxide 27 mmol/L (22-29); Chloride 101 mmol/L (96-108); Creatinine Clr Calc Pharmacy 80.2; Estimated Glomerular Filt Rate > 60; Magnesium 1.7 mg/dL (1.6-2.6); Potassium 3.6 mmol/L (3.3-5.1); Sodium 137 mmol/L (135-145)
[2024-04-29 07:37] LABS: Glucose Fasting 353 mg/dL (60-99)
[2024-04-29 08:00] VITALS: BP 116/74; PULSE 94; RESP 17; TEMP 37.4; O2SAT 98
[2024-04-29 08:25] LABS: Glucose, Whole Blood 367 mg/dL (60-115)
[2024-04-29] MEDS: Omeprazole 20 MG CAPSULE.DR PO (08:35)
[2024-04-29] MEDS: Metoprolol Tartrate 25 MG TABLET PO (08:35)
[2024-04-29] MEDS: Insulin Glargine,Hum.rec.anlog 100 UNIT/ML 10 ML VIAL 15 UNIT SUBCUT (08:35)
[2024-04-29] MEDS: Insulin Lispro 100 UNIT/ML 3 ML VIAL SUBCUT ×2 (08:35→11:20)
[2024-04-29] MEDS: methocarbamoL 500 MG TABLET PO (08:36)
[2024-04-29] MEDS: 0.9 % Sodium Chloride Flush 3 ML SYRINGE IVFLUSH (08:36)
[2024-04-29] MEDS: risperiDONE 2 MG TABLET PO (08:36)
[2024-04-29] MEDS: Metoclopramide HCl 5 MG TABLET PO (08:36)
[2024-04-29] MEDS: lamoTRIgine 100 MG TABLET 200 MG PO (08:36)
[2024-04-29] MEDS: HYDROmorphone HCl 2 MG TABLET 1 MG PO (08:42)
[2024-04-29] MEDS: Enoxaparin Sodium 40 MG/0.4 ML SYRINGE SUBCUT (11:16)
[2024-04-29 11:19] LABS: Glucose, Whole Blood 301 mg/dL (60-115)
--- NOTE | 2024-04-29 11:27 | P.DS_ITS ---
DS: Providers Provider Date of Service: 04/29/24 Date of admission: 04/19/24 10:12 Date of discharge: 04/29/24 Primary care physician: Yulisa Avila MD DS: Diagnosis Discharge Diagnosis (1) Fluid volume depletion: Status: Acute (2) Abdominal pain: Status: Acute (3) Diabetes mellitus with gastroparesis: Status: Acute (4) Acute hypokalemia: Status: Acute DS: Summary Hospital Course Hospital Course: Admission note HPI A 48 years old lady with PMH of DMI on insulin pump, Gastroparesis, GERD, Bipolar among others who presents to the hospital with abdominal pain, N\V for 1 day [employer]. The patient reprots that she started to feel nausea and pain yesterday and went the whole day vomiting and not tolerating and PO intake. No chest pain, palpitations, SOB, diarrhea or urinary symptoms. she is reporitng abdominal pain which is dull aching and constant which is similar to what she gets with DKA as she recalls. Blood sugar was in 300s, Elecated AG and Ketones. ABG showed mixed acid-base balance. treated with IVF and insulin with mild response as AG closed. Will be admitted for further work up and management. Hospital course The patietn was admitted and treated for Intractable Nausea and vomiting likely related to Gastroparesis vs cyclic vomiting syndrome as CT scan negative for intraabdominal problem and she was placed on IV fluids , Zofran PRN and Reglan around the clock with improvement over long course of hospital stay as she was able to tolerate diet eventually. Her DM1 with hyperglycemia was managed with lantus 15 units, sliding scale as her insulin pump was held during the hospital stay. She was noted to have Acute hypokalemia which was replaced and corrected. Discharge plan Monitor blood sugar at home Reglan 3 times daily before meals as needed Methocarbamol for muscle strain advance your diet as tolerated Avoid Marijuana products Time Attestation Discharge Coordination Time (in mins): 38 Quality: Safe Use of Opioids Does Pt have an Active Cancer Diagnosis on the Problem List?: No Quality: Stroke Does the patient have a stroke diagnosis?: No Physical Exam Vital Signs: Vital Signs: Last Vital Signs Temp 99.3 F 04/29/24 08:00 Pulse 94 04/29/24 08:00 Resp 17 04/29/24 08:00 BP 116/74 04/29/24 08:00 Pulse Ox 98 04/29/24 08:00 O2 Del Method Room Air 04/29/24 08:00 BMI result Body Mass Index 28.2 Const: Other: Constitutional : Awake, interactive, not in distress Neck : Normal inspection, Supple Cardiovascular : RRR, no JVP, no lower extremity edema Respiratory : good bilateral air entry, no crackles, wheezes or rhonchi Gastrointestinal: soft, lax, Normal bowel sounds, no tenderness Skin : Warm, Dry Neurological : Alert & oriented x3, No focal deficit DS: Data Data Completed and Pending Labs on day of discharge: Laboratory Results - last 24 hr 04/28/24 04/28/24 04/28/24 11:17 15:09 21:10 WBC RBC Hgb Hct MCV MCH MCHC RDW Plt Count MPV Absolute Nucleated RBC Nucleated RBC % (auto) Sodium Potassium Chloride Carbon Dioxide Anion Gap BUN Creatinine Estim Creat Clear Calc Estimated GFR POC Glucose 283 H 177 H 212 H Fasting Glucose Calcium Magnesium 04/29/24 04/29/24 04/29/24 06:27 08:20 11:15 WBC 7.4 RBC 3.44 L Hgb 9.4 L Hct 28.6 L MCV 83.1 MCH 27.3 MCHC 32.9 RDW 15.5 Plt Count 494 H MPV 9.1 L Absolute Nucleated RBC 0.000 Nucleated RBC % (auto) 0.0 Sodium 137 Potassium 3.6 Chloride 101 Carbon Dioxide 27 Anion Gap 13 BUN 10 Creatinine 0.87 Estim Creat Clear Calc 80.2 Estimated GFR > 60 POC Glucose 367 H* 301 H Fasting Glucose 353 H* Calcium 8.[address] scan - abdomen: Radiologist's impression: ITS Impressions Abdomen/Pelvis CT 04/20/24 11:19 IMPRESSION: 1. No acute intra-abdominal or intrapelvic findings to explain the patient's pain. 2. No renal or ureteral stone. No hydronephrosis or hydroureter. Unremarkable urinary bladder. 3. No small or large bowel obstruction. No bowel wall thickening or inflammatory change. Fleischner guidelines were followed. Electronically signed by: Dominic Mccall MD 04/20/2024 01:35 PM EDT Discharge Plan Discharge Anticipated Discharge Date/Time: 04/29/24 11:21 Patient Disposition: Home, Self-Care Discharge Diagnosis: Gastroparesis Referrals: Yulisa Dyson MD [Primary Care Provider] - 1 Week Discharge Medications: New methocarbamol 500 mg Tablet 500 mg PO TID PRN (Reason: Muscle Spasm) Qty: 30 0RF metoclopramide HCl 5 mg Tablet 5 mg PO TIDAC PRN (Reason: Nausea) Qty: 90 0RF Continued midodrine 5 mg tablet 5 mg PO DAILY Qty: 90 2RF metoprolol tartrate 25 mg tablet 25 mg PO BID Qty: 180 1RF insulin aspart U-100 [Novolog FlexPen U-100 Insulin] 100 unit/mL (3 mL) insulin pen See Rx Instructions .ROUTE .COMPLEX Rx Instructions: UP TO 60 unit subcutaneously DAILY;VIA TANDEM INSULIN PUMP lorazepam 1 mg Tablet 1 mg PO TID PRN (Reason: Anxiety) lamotrigine 200 mg Tablet 200 mg PO BID zolpidem 10 mg Tablet 10 mg PO BEDTIME risperidone 2 mg tablet 2 mg PO BID ondansetron 4 mg tablet,disintegrating 4 mg PO Q8H PRN (Reason: nausea and vomiting) Qty: 20 0RF omeprazole 20 mg capsule,delayed release(DR/EC) 20 mg PO BID nitrofurantoin macrocrystal 50 mg capsule 50 mg PO BEDTIME 90 Days Qty: 90 1RF Rx Instructions: must administer with a meal/food Discharge Orders: Discharge Order (Routine); Ordered 04/29/24 Ordered By: Fernanda Kenny Diet: Diabetic diet Activity on Discharge: As tolerated Stand Alone Forms: Patient Portal Discharge page Print Language: [place] Care Plan Goals: Restart your insulin pump and monitor blood sugar at home Reglan 3 times daily before meals as needed Methocarbamol for muscle strain advance your diet as tolerated Avoid Marijuana products Health Concerns: Gastroparesis Plan of Treatment: Reglan, diet change Assessment: as above
--- NOTE | 2024-04-29 11:38 | MHC.CM.PN ---
IMM 04/29/24 Patient is discharged today to home self care. Her will provide transportation home.
== END 2024-04-29 12:21 | disposition home or self-care (01) | DRG 74 ==
LOC: HO.ED 05:34 → HO.EDOVER 11:15 → HO.IMC 20:29
PROVIDERS: Family Medicine; Internal Medicine; Admitting Provider Student in an Organized Health Care Education/Training Program; Emergency Provider Emergency Medicine Emergency Medical Services; PCP Internal Medicine; Visit Provider Student in an Organized Health Care Education/Training Program
DX: E10.43 Type 1 diabetes mellitus with diabetic autonomic (poly)neuropathy (principal); E87.6 Hypokalemia; I10 Essential (primary) hypertension; F31.9 Bipolar disorder, unspecified; F10.90 Alcohol use, unspecified, uncomplicated; R11.2 Nausea with vomiting, unspecified; E10.65 Type 1 diabetes mellitus with hyperglycemia; K31.84 Gastroparesis; K21.9 Gastro-esophageal reflux disease without esophagitis; Z96.41 Presence of insulin pump (external) (internal); Z87.891 Personal history of nicotine dependence; Z79.899 Other long term (current) drug therapy
CPT/HCPCS: 36415; 74176; 80048; 80053; 80076; 81001; 82010; 82803; 82947; 83036; 83605; 83690; 83735; 85025; 85027; 87040; 87147; 87205; 99285; J0696; J1171; J1650; J1885; J2405; J2765; J3480

== ENCOUNTER → 2024-04-19 10:12 | Outpatient (BNV) | payer OTHER, SELFPAY | PROVIDERS: Admitting Provider Student in an Organized Health Care Education/Training Program; Emergency Provider Emergency Medicine Emergency Medical Services; PCP Internal Medicine; Visit Provider Student in an Organized Health Care Education/Training Program | DX: E86.9 Volume depletion, unspecified (principal); R10.13 Epigastric pain; E11.43 Type 2 diabetes mellitus with diabetic autonomic (poly)neuropathy; E87.6 Hypokalemia | CPT/HCPCS: 99223; 99232; 99239 ==

== ENCOUNTER 2024-05-05 12:06 | Outpatient (REF) | payer OTHER, SELFPAY | END 2024-05-05 12:07 | disposition home or self-care (01) | LOC: HO.LAB 12:06 | PROVIDERS: PCP Internal Medicine | DX: R30.0 Dysuria (principal); R35.0 Frequency of micturition; E11.9 Type 2 diabetes mellitus without complications; Z87.440 Personal history of urinary (tract) infections | CPT/HCPCS: 81003; 87086; 87088; 87186; 99212 ==

== ENCOUNTER 2024-05-05 12:06 | Outpatient (AMB) | payer OTHER, SELFPAY ==
--- NOTE | 2024-05-05 13:12 | MHC.OFFWIV ---
Intake Vital Signs 05/05/24 13:14 Weight 170 lb BP 114/70 Blood Pressure Location Rt brachial Position Sitting Pulse 84 Pulse Source Pulse Oximeter Temp 97.6 F Temp Source Oral Pulse Oximetry (%) 97 Oxygen Delivery Method Room Air Intake Visit Reasons: EP ?UTI Intake Note: Patient here for for burning when urinating, nausea, smell to urine which has been present for about for about 3-4 days. Patient Tobacco Use Status: Former Tobacco user Allergies morphine [MORPHINE] Allergy (Intermediate, Verified 05/05/24 13:13) RASH, hives, hives mushroom Allergy (Intermediate, Verified 05/05/24 13:13) HIVES/RASH Sulfa (Sulfonamide Antibiotics) Allergy (Mild, Verified 05/05/24 13:13) Rash mushroom Allergy (Unknown, Uncoded 05/05/24 13:13) throat closes up/difficult breathing mushrooms Allergy (Unknown, Uncoded 05/05/24 13:13) anaphylaxis Do you need a note to return to daycare/school/sports/work: No HPI HPI Comments History of Present Illness Details This is a 48-year-old female with past medical history of insulin-dependent diabetes, recurrent UTIs, coronary artery disease and bipolar disorder presenting for evaluation of a foul smell to her urine that she has had for the past 2 days coupled with urinary frequency. Patient denies having any fevers, chills, abdominal pain, back pain, dysuria or overt vaginal discharge somewhat elevated as high as 290mg/dL but not consistently over the past 1 week. Patient does report nausea without vomiting. Patient was recently hospitalized last week for approximately 7 days for an ?abdominal staph infection? but was not discharged home on oral antibiotic therapy. [facility]LY [facility] Medical History Diabetic gastroparesis Acute UTI Diabetes mellitus type 1 Chronic hypertension Intractable cyclical vomiting with nausea Diabetes mellitus with gastroparesis Diabetic gastroparesis Herpes zoster Status post fall Recurrent UTI NSTEMI (non-ST elevated myocardial infarction) Diabetic gastroparesis Anxiety Bipolar 1 disorder Pancreatitis Gastroparesis Diabetes Surgical History History of cholecystectomy History of tonsillectomy History of ERCP H/O pyloroplasty History of appendectomy H/O: hysterectomy Social History Household Members: Spouse Housing: House Do you presently have visiting nurse or other home services: No Unable to assess alcohol history related to: Refusing to respond Alcohol intake: never Comment: pt refused bed alarm Patient Tobacco Use Status: Former Tobacco user Tobacco use type: Cigarette e-Cigarette/Vaping Use: Never Used Second Hand Smoke Exposure: No Substance Use Type: Marijuana Advance Directives Date on File: 12/03/22 service: No Current occupational status: disabled Cognitive needs: No Hearing needs: No Vision needs: No Review of Systems ENT Reports no additional complaints Card Reports no additional complaints Resp Reports no additional complaints GI Reports nausea and Denies vomiting Details: Urinary frequency with foul-smelling urine. Denies urinary incontinence and Denies vaginal pruritus Musc Reports no additional complaints Skin/Breast Reports system reviewed and no additional complaints, except as documented Psych Reports no additional complaints Physical Exam Vital Signs: Last Vital Signs Temp 97.6 F 05/05/24 13:14 Pulse 84 05/05/24 13:14 BP 114/70 05/05/24 13:14 Pulse Ox 97 05/05/24 13:14 Oxygen Delivery Method Room Air 05/05/24 13:14 Patient is afebrile. Const General: cooperative, healthy appearing, comfortable, no acute distress, well developed, alert and awake Nutritional Appearance: average body habitus Orientation/consciousness: patient oriented x3 Limitations: no limitations Cardio Rate: regular rate Rhythm: regular rhythm GI Palpation (GI): Soft to palpation, nontender and no guarding Auscultation: normal bowel sounds General: Yes Bimanual renal exam normal bilaterally, Yes bladder normal to palpation and Yes no CVA tenderness Bimanual exam- vagina & uterus: bladder normal to palpation Back/Spine/Pelvis Back: no CVA tenderness Neuro General: patient oriented x3 Psych Appearance: grossly normal Mental Status: mental status grossly normal Insight: Good insight present (Psych) Judgement: Good judgement present (Psych) Results AMB Urinalysis, Automated UA Leukoctes 125 Gabriela/uL Last Edit by KEY Kerns on 05/05/24 13:28 UA Nitrite Negative Last Edit by KEY Kerns on 05/05/24 13:28 UA Urobilinogen 0.2 mg/dL Last Edit by Sosa Hannah CCM on 05/05/24 13:28 UA Protein 15 mg/dL Last Edit by Sosa Hannah [facility] on 05/05/24 13:28 UA pH 6.0 Last Edit by Sosa Hannah [facility] on 05/05/24 13:28 UA Blood 80 Florencio/uL Last Edit by Sosa Hannah [facility] on 05/05/24 13:28 UA Specific [place] 1.025 Last Edit by Sosa Hannah [facility] on 05/05/24 13:28 UA Ketone Negative Last Edit by Sosa Hannah [facility] on 05/05/24 13:28 UA Bilirubin 1 mg/dL Last Edit by Sosa Hannah [facility] on 05/05/24 13:28 UA Glucose 0 mg/dL Last Edit by Sosa Hannah [facility] on 05/05/24 13:28 Results Reviewed Results Reviewed: Laboratory Last Values Urine pH (Auto) 6.0 05/05/24 13:27 Specific [place] (Auto) 1.025 05/05/24 13:27 Urine Protein (Auto) 15 mg/dL 05/05/24 13:27 Glucose (UA)(Auto) 0 mg/dL 05/05/24 13:27 Urine Ketones (Auto) Negative 05/05/24 13:27 Urine Blood (Auto) 80 Flore[place]io/uL 05/05/24 13:27 Urine Nitrite (Auto) Negative 05/05/24 13:27 Urine Bilirubin (Auto) 1 mg/dL 05/05/24 13:27 Urine Urobilinogen (Auto) 0.2 mg/dL 05/05/24 13:27 Leukocyte Esterase (Auto) 125 Gabriela/uL 05/05/24 13:27 Urinalysis reviewed; urine culture pending. Assessment & Plan Assessment & Plan (1) Urinary frequency: Comment: Patient's urinalysis is reviewed. Given patient's previous treatment for acute urinary tract infections with negative urine cultures, urine culture will be obtained at this time and antibiotic therapy will be deferred. Code(s): R35.0 - Frequency of micturition Plan: Urine culture pending at this time. No antibiotic therapy is initiated at this time. Patient is encouraged to stay very well hydrated with water upon returning home. Orders: Orders AMB Urinalysis Automated Today Z13.9 - Encounter for screening, unspecified Urine Culture Today R30.0 - Dysuria Coding Level of Care Code Est Pt Level 3 (90475) Diagnoses Urinary frequency R35.0 Time Spent (min) 20
[2024-05-05 13:14] VITALS: BP 114/70; PULSE 84; TEMP 36.4; O2SAT 97
== END 2024-05-05 13:45 | disposition home or self-care (01) ==
PROVIDERS: PCP Internal Medicine; Visit Provider Physician Assistant
DX: Z13.9 Encounter for screening, unspecified (principal); R35.0 Frequency of micturition

== ENCOUNTER 2024-05-29 23:03 | Inpatient (IN) | payer OTHER, SELFPAY ==
--- NOTE | 2024-05-29 | ECG_ITS ---
Test Reason : TACHY Blood Pressure : / mmHG Vent. Rate : 141 BPM Atrial Rate : 141 BPM P-R Int : 136 ms QRS Dur : 082 ms QT Int : 282 ms P-R-T Axes : 054 053 021 degrees QTc Int : 431 ms Sinus tachycardia Low voltage QRS Borderline ECG When compared with ECG of 02-APR-2024 13:49, No significant change was found Referred By: Generic ED Physician Electronically Signed By:Cory Emanuel
[2024-05-29 23:22] VITALS: BP 163/88; PULSE 147; RESP 36; TEMP 36.9; O2SAT 100
[2024-05-29 23:23] LABS: Glucose, Whole Blood 296 mg/dL (60-115)
--- NOTE | 2024-05-29 23:23 | MHC.EDTECH ---
Patient BIBA,changed into hospital attire,placed pt on the rectifying attendant,vitals taken,EKG taken per order and signed by provider,POC taken and is 296,RN at bedside
--- NOTE | 2024-05-29 23:26 | ED.ABDPAIN ---
HPI - Abdominal Pain General Chief Complaint: Abdominal Pain Stated Complaint: AMS HYPERGLYCEMIC Time Seen by Provider: 05/29/24 23:22 Source: patient Mode of arrival: ambulatory Limitations: no limitations History of Present Illness ED Provider: bassam ALBA narrative: Patient is 48 years old with frequent ED visits with history of diabetes type 1 on insulin pump, gastroparesis, GERD, bipolar, history of pancreatitis comes here frequently for vomiting related to gastroparesis versus cyclic vomiting leading to dehydration and ketoacidosis last discharge was on 04/29/2024 comes here as she been vomiting since yesterday and nonresponding for last few hours at home but on arrival she is awake and alert sugar is in 300 range complaining of pain all over the abdomen no diarrhea Related Data Home Medications ?Medication ?Instructions ?Recorded ?Confirmed lamotrigine 200 mg tablet 200 mg PO BID 05/11/20 04/19/24 lorazepam 1 mg tablet 1 mg PO TID PRN Anxiety 05/11/20 04/19/24 zolpidem 10 mg tablet 10 mg PO BEDTIME 05/11/20 04/19/24 insulin aspart U-100 100 unit/mL See Rx Instructions .Route .COMPLEX 06/01/20 04/19/24 (3 mL) subcutaneous pen (Novolog FlexPen U-100 Insulin aspart) risperidone 2 mg tablet 2 mg PO BID 09/13/21 04/19/24 omeprazole 20 mg capsule,delayed 20 mg PO BID 02/24/24 04/19/24 release Previous Rx's ?Medication ?Instructions ?Recorded midodrine 5 mg tablet 5 mg PO DAILY #90 tabs 06/30/23 ondansetron 4 mg disintegrating 4 mg PO Q8H PRN nausea and 04/02/24 tablet vomiting #20 tabs metoprolol tartrate 25 mg tablet 25 mg PO BID #180 tabs 04/12/24 metoclopramide HCl 5 mg tablet 5 mg PO TIDAC PRN Nausea #90 tabs 04/29/24 cefuroxime axetil 500 mg tablet 500 mg PO Q12H #10 tabs 05/07/24 nitrofurantoin macrocrystal 100 mg 100 mg PO BID 7 days #14 caps 05/17/24 capsule Allergies Allergy/AdvReac Type Severity Reaction Status Date / Time morphine [MORPHINE] Allergy Intermediate RASH, Verified 05/30/24 00:03 hives, hives mushroom Allergy Intermediate HIVES/RASH Verified 05/30/24 00:03 Sulfa (Sulfonamide Allergy Mild Rash Verified 05/30/24 00:03 Antibiotics) mushroom Allergy Unknown throat Uncoded 05/30/24 00:03 closes up/difficult breathing mushrooms Allergy Unknown anaphylaxis Uncoded 05/30/24 00:03 Review of Systems Review of Systems Yes all other systems are reviewed and are negative [facility] Past Medical History Medical History Diabetic gastroparesis Acute UTI Diabetes mellitus type 1 Chronic hypertension Intractable cyclical vomiting with nausea Diabetes mellitus with gastroparesis Diabetic gastroparesis Herpes zoster Status post fall Recurrent UTI NSTEMI (non-ST elevated myocardial infarction) Diabetic gastroparesis Anxiety Bipolar 1 disorder Pancreatitis Gastroparesis Diabetes Surgical History History of cholecystectomy History of tonsillectomy History of ERCP H/O pyloroplasty History of appendectomy H/O: hysterectomy Social History Social History Household Members: Spouse Housing: House Do you presently have visiting nurse or other home services: No Unable to assess alcohol history related to: Refusing to respond Alcohol intake: never Comment: pt refused bed alarm Patient Tobacco Use Status: Former Tobacco user Tobacco use type: Cigarette Smoked in Last 30 Days: No e-Cigarette/Vaping Use: Never Used Second Hand Smoke Exposure: No Use of substances other than those prescribed or required for medical reasons: No Substance Use Type: Marijuana Advance Directives: Yes Advance Directives on File: Yes Advance Directives Date on File: 12/03/22 Do you have a plan to hurt others: No Plan service: No Current occupational status: disabled Cognitive needs: No Hearing needs: No Vision needs: No Physical Exam ED Vital Signs: Vital Signs - 24 hr 05/29/24 23:22 05/29/24 23:56 05/30/24 01:45 Temperature 98.5 F 98.6 F Pulse Rate 147 H 132 H 141 H Respiratory Rate 36 H 20 26 H Blood Pressure 163/88 H 163/91 H 139/82 Pulse Oximetry 100 98 97 Oxygen Delivery Method Room Air Room Air Room Air BMI result Body Mass Index 26.6 Appearance: Alert. Oriented X3. No acute distress. Eyes: No pallor or icterus ENT: Pharynx normal. Oral Mucosa moist Neck: Normal inspection. Neck supple. CVS: Normal heart rate and rhythm. Pulses normal. Respiratory: No respiratory distress. Equal air entry bilateral, no wheezing/rales/rhonchi Abdomen: Soft and diffuse tenderness no rebound tenderness or guarding Bowel sounds are present, no mass palpable, no CVA tenderness Skin: Skin warm and dry. Normal skin color. Normal skin turgor. Extremities: No lower extremity edema. No calf tenderness Neuro: Oriented X 3. No motor deficit. No sensory deficit.No cerebellar signs , cranial nerves II-XII intact Medical Decision Making Medical Decision Making MDM Narrative: Patient with gastroparesis/cyclic vomiting syndrome with diabetes with history of ketoacidosis on insulin pump comes here for similar episode of vomiting since yesterday unable to take any fluids p.o. just discharged 3 weeks ago for similar situation no fever no chills no source of any infection whenever patient comes she has similar leukocytosis and lactic acidosis from dehydration volume contraction patient does meet the criteria for SIRS but no source of infection elevated lactic acidosis is type B from volume contraction patient has received 2 L of normal saline bolus will start on ringer lactate feels better taking p.o. fluids now will admit patient for IV hydration Differential Diagnosis Differential Diagnoses: The differential diagnosis associated with the presentation includes Dehydration/cyclic vomiting syndrome/diabetic ketoacidosis Admission/Observation Consideration of admission/observation: Escalation of care including admission/observation considered Consult Healthcare Provider Management of the patient was discussed with: Hospitalist Lab Data MDM Lab Attestation statement: I reviewed the patient's lab results. 05/29/24 23:50 05/29/24 23:50 Labs: Lab Results 05/29/24 05/29/24 05/29/24 Range/Units 23:09 23:50 23:51 WBC 18.5 H (4.8-10.8) X10*3/uL RBC 4.20 D (4.20-5.50) X10*6/uL Hgb 11.2 L (12.0-16.0) g/dl Hct 33.9 L (37.0-47.0) % MCV 80.7 (80.0-98.0) fL MCH 26.7 L (27.0-33.0) pg MCHC 33.0 (31.0-35.0) g/dl RDW 15.9 (11.0-16.0) % Plt Count 565 H (160-400) X10*3/uL MPV 8.5 L (9.4-12.3) fL Immature Gran % (Auto) 0.5 H (0.0-0.4) % Neut % (Auto) 90.2 H (45-73) % Lymph % (Auto) 7.3 L (20-40) % [place] % (Auto) 1.7 L (2-11) % Eos % (Auto) 0.0 (0-4) % Baso % (Auto) 0.3 (0-2) % Lymph # (Auto) 1.4 (1.2-4.9) X10*3/uL [place] # (Auto) 0.3 (0.1-1.2) X10*3/uL Eos # (Auto) 0.0 (0.0-0.4) X10*3/uL Baso # (Auto) 0.1 (0.0-0.2) X10*3/uL Abs Immat Gran (auto) 0.09 H (0.00-0.03) X10*3/uL Absolute Neuts (auto) 16.7 H (2.0-8.3) x10*3/uL Absolute Nucleated RBC 0.000 (0.0-0.012) X10*3/uL Nucleated RBC % (auto) 0.0 (0.0-0.2) /100WBC Smear Tech's Comments VERIFIED VBG pH (7.32-7.43) VBG pCO2 mmHg VBG pO2 mmHg VBG HCO3 (22-26) mmol/L VBG O2 Saturation % VBG Base Excess mmol/L Sodium 138 (135-145) mmol/L Potassium 4.2 (3.3-5.1) mmol/L Chloride 98 (96-108) mmol/L Carbon Dioxide 18 L (22-29) mmol/L Anion Gap 26 H (12-20) BUN 15 (9-16) mg/dL Creatinine 1.05 (0.5-1.4) mg/dL Estim Creat Clear Calc 62.3 Estimated GFR 56 POC Glucose 296 H (60-115) mg/dL Random Glucose 317 H (60-115) mg/dL Lactic Acid 5.8 H* (0.5-2.0) mmol/L Calcium 10.3 H D (8.4-10.2) mg/dL Magnesium 1.7 (1.6-2.6) mg/dL Total Bilirubin 0.3 (0.0-1.0) mg/dL AST 20 (5-31) U/L ALT 18 (0-31) U/L Alkaline Phosphatase 154 H (39-117) U/L Total Protein 8.4 H (6.5-8.0) g/dL Albumin 4.5 (3.5-5.0) g/dL Lipase 5 L (8-78) U/L Beta-Hydroxybutyrate 0.58 H (0.02-0.27) mmol/L // Range/Units 23:56 WBC (4.8-10.8) X10*3/uL RBC (4.20-5.50) X10*6/uL Hgb (12.0-16.0) g/dl Hct (37.0-47.0) % MCV (80.0-98.0) fL MCH (27.0-33.0) pg MCHC (31.0-35.0) g/dl RDW (11.0-16.0) % Plt Count (160-400) X10*3/uL MPV (9.4-12.3) fL Immature Gran % (Auto) (0.0-0.4) % Neut % (Auto) (45-73) % Lymph % (Auto) (20-40) % [place] % (Auto) (2-11) % Eos % (Auto) (0-4) % Baso % (Auto) (0-2) % Lymph # (Auto) (1.2-4.9) X10*3/uL [place] # (Auto) (0.1-1.2) X10*3/uL Eos # (Auto) (0.0-0.4) X10*3/uL Baso # (Auto) (0.0-0.2) X10*3/uL Abs Immat Gran (auto) (0.00-0.03) X10*3/uL Absolute Neuts (auto) (2.0-8.3) x10*3/uL Absolute Nucleated RBC (0.0-0.012) X10*3/uL Nucleated RBC % (auto) (0.0-0.2) /100WBC Smear Tech's Comments VBG pH 7.57 H (7.32-7.43) VBG pCO2 24 mmHg VBG pO2 88 mmHg VBG HCO3 22 (22-26) mmol/L VBG O2 Saturation 96.0 % VBG Base Excess 1.8 mmol/L Sodium (135-145) mmol/L Potassium (3.3-5.1) mmol/L Chloride (96-108) mmol/L Carbon Dioxide (22-29) mmol/L Anion Gap (12-20) BUN (9-16) mg/dL Creatinine (0.5-1.4) mg/dL Estim Creat Clear Calc Estimated GFR POC Glucose (60-115) mg/dL Random Glucose (60-115) mg/dL Lactic Acid (0.5-2.0) mmol/L Calcium (8.4-10.2) mg/dL Magnesium (1.6-2.6) mg/dL Total Bilirubin (0.0-1.0) mg/dL AST (5-31) U/L ALT (0-31) U/L Alkaline Phosphatase (39-117) U/L Total Protein (6.5-8.0) g/dL Albumin (3.5-5.0) g/dL Lipase (8-78) U/L Beta-Hydroxybutyrate (0.02-0.27) mmol/L Independent Interpretation I performed an independent interpretation of an: EKG Interpretation: Sinus tachycardia with heart rate of 141 beats per minute normal interval normal axis no acute ST-T changes no acute ischemia External Record Review External record reviewed: Inpatient record Medications Administered Discontinued Medications Generic Name Dose Route Start Last Admin Trade Name Freq PRN Reason Stop Dose Admin Hydromorphone HCl 2 mg 05/29/24 23:28 05/29/24 23:49 Hydromorphone Hcl 2 Mg/Ml Vial IVPUSH 05/29/24 23:29 2 mg ONCE ONE Administration Protocol Sodium Chloride 1,000 mls @ 999 mls/hr 05/29/24 23:26 05/29/24 23:53 Ns IV 05/30/24 00:26 999 mls/hr .Q1H1M ONE Administration Sodium Chloride 1,000 mls @ 999 mls/hr 05/30/24 00:19 05/30/24 00:45 Ns IV 05/30/24 01:19 999 mls/hr .Q1H1M ONE Administration Ondansetron HCl 4 mg 05/29/24 23:26 05/29/24 23:49 Ondansetron Hcl 4 Mg/2 Ml Vial IVPUSH 05/29/24 23:27 4 mg ONCE ONE Administration Critical Care Time Critical Care Time Critical Care Time: Yes Total Critical Care Time: 55 Attestation: The patient was critically ill with a high probability of imminent or life threatening deterioration. I spent greater than 60???minutes of discontinuous time evaluating the patient,delivering critical care at the bedside, discussing and evaluating pertinent data with consultants. Critical care time does not include time spent performing separately billable procedures or teaching. Total time spent performing critical care was 55???minutes. Discharge Plan Discharge Clinical Impression: Cyclic vomiting syndrome, Acute dehydration, Acidosis, lactic, Type 1 diabetes Patient Disposition: Admitted As Inpatient Print Language: Grenadian
[2024-05-29] MEDS: ondansetron HCL 4 MG/2 ML VIAL IVPUSH (23:49)
[2024-05-29] MEDS: HYDROmorphone HCl 2 MG/ML VIAL IVPUSH (23:49)
[2024-05-29] MEDS: 0.9 % Sodium Chloride 1,000 ML 999 ML IV (23:53)
[2024-05-29 23:56] VITALS: BP 163/91; PULSE 132; RESP 20; O2SAT 98
[2024-05-29 23:56] LABS: Basophils Absolute Auto 0.1 X10*3/uL (0.0-0.2); Basophils Percent Auto 0.3 % (0-2); Hematocrit 33.9 % (37.0-47.0); Hemoglobin 11.2 g/dl (12.0-16.0); Imm Gran Abs Auto 0.09 X10*3/uL (0.00-0.03); Imm Gran Pct Auto 0.5 % (0.0-0.4); Lymphocytes Absolute Auto 1.4 X10*3/uL (1.2-4.9); Lymphocytes Percent Auto 7.3 % (20-40); MANUAL DIFF FLAG SCAN; Mean Corpuscular Hemoglobin 26.7 pg (27.0-33.0); Mean Corpuscular Volume 80.7 fL (80.0-98.0); Mean Platelet Volume 8.5 fL (9.4-12.3); Monocytes Absolute Auto 0.3 X10*3/uL (0.1-1.2); Monocytes Percent Auto 1.7 % (2-11); Neutrophils Absolute Auto 16.7 x10*3/uL (2.0-8.3); Neutrophils Percent Auto 90.2 % (45-73); Platelet Count 565 X10*3/uL (160-400); Red Cell Distribution Width 15.9 % (11.0-16.0); SCAN SMEAR FLAG 1; White Blood Count 18.5 X10*3/uL (4.8-10.8)
[2024-05-29 23:57] VITALS: BP 190/110; PULSE 148; O2SAT 97; BMI 26.6
[2024-05-30] VITALS (11 sets, daily range): BP systolic 110–168; BP diastolic 62–92; PULSE 88–141; RESP 14–26; TEMP 36.8–37.2; O2SAT 95–98
[2024-05-30] LABS: Venous Blood Gas Refer to POC result
[2024-05-30 00:01] LABS: VBG Base Excess 1.8 mmol/L; VBG HCO3 22 mmol/L (22-26); VBG pCO2 24 mmHg; VBG pH 7.57 (7.32-7.43); VBG pO2 88 mmHg
[2024-05-30 00:18] LABS: SLIDE REVIEW VERIFIED
[2024-05-30 00:20] LABS: Lactic Acid 5.8 mmol/L (0.5-2.0)
[2024-05-30 00:32] LABS: Alanine Aminotransferase 18 U/L (0-31); Albumin Level 4.5 g/dL (3.5-5.0); Alkaline Phosphatase 154 U/L (39-117); Aspartate Amino Transferase 20 U/L (5-31); Bilirubin Total 0.3 mg/dL (0.0-1.0); Blood Urea Nitrogen 15 mg/dL (9-16); Calcium 10.3 mg/dL (8.4-10.2); Creatinine Clr Calc Pharmacy 62.3; Estimated Glomerular Filt Rate 56; Glucose Random 317 mg/dL (60-115); Lipase 5 U/L (8-78); Magnesium 1.7 mg/dL (1.6-2.6); Total Protein 8.4 g/dL (6.5-8.0)
[2024-05-30 00:38] LABS: Anion Gap 26 (12-20); Beta-Hydroxybutyrate 0.58 mmol/L (0.02-0.27); Carbon Dioxide 18 mmol/L (22-29); Chloride 98 mmol/L (96-108); Potassium 4.2 mmol/L (3.3-5.1); Sodium 138 mmol/L (135-145)
[2024-05-30] MEDS: 0.9 % Sodium Chloride 1,000 ML 999 ML IV (00:45)
--- NOTE | 2024-05-30 00:50 | PC.NURSE ---
MD bedside instructed pt to self administer 3 units insulin from her pump which she was due for per her pump.
--- NOTE | 2024-05-30 00:56 | PC.NURSE ---
still awaiting urine test, pt states inability to urinate at this time.
[2024-05-30 01:54] LABS: Reflex Lactate? Lactic Acid Added
[2024-05-30 02:02] LABS: Appearance Urine Clear; Color Urine Yellow; Glucose Urine UA >=1000 mg/dL (Negative); Leukocyte Esterase Urine Negative (Negative); Nitrite Urine Negative (Negative); PH 7.5 (5.0-9.0); Specific Gravity - Urine 1.015 (1.005-1.025); UMIC TRIGGER UACC YES; Urine Blood Moderate (2+) (Negative); Urine Ketones 15 mg/dL (Negative); Urine Protein 100 (2+) mg/dL (Neg-Trace)
[2024-05-30 02:07] LABS: Bacteria Urine None Seen (None Seen); Hyaline Casts Urine 0-2 /LPF (0-2); Squamous Epithelial Cell Urine 0-2 /HPF (0-2); WBC Urine 0-5 /HPF (0-5)
--- NOTE | 2024-05-30 02:14 | MHC.EDTECH ---
Repeat labs drawn and sent to lab,belongings list completed,copy placed in chart
[2024-05-30 02:25] LABS: ~Lactic Acid-LAB USE ONLY 1.6 mmol/L (0.5-2.0)
[2024-05-30 02:27] LABS: Anion Gap 18 (12-20); Blood Urea Nitrogen 12 mg/dL (9-16); Calcium 8.9 mg/dL (8.4-10.2); Carbon Dioxide 21 mmol/L (22-29); Chloride 103 mmol/L (96-108); Creatinine Clr Calc Pharmacy 80.8; Estimated Glomerular Filt Rate > 60; Glucose Random 235 mg/dL (60-115); Sodium 138 mmol/L (135-145)
[2024-05-30] MEDS: Lactated Ringers 1,000 ML 150 ML IVCONT ×3 (03:00→15:38)
--- NOTE | 2024-05-30 04:42 | P.HPHOSP_ITS ---
History of Present Illness Date of Service: 05/30/24 Attending physician on admission: Irwin Bishop Chief Complaint: Nausea and vomiting Yumiko Sena is a 48 years old woman with past medical history significant for type 1 diabetes mellitus on home insulin pump, multiple hospitalizations due to cyclic vomiting due to marijuana use, gastroparesis, GERD, hyperlipidemia and abdominal surgeries/procedures (including appendectomy, hysterectomy, ERCP and cholecystectomy) presents to the emergency department complaining of generalized abdominal pain, nausea and vomiting. HPI was limited as the patient was feeling uncomfortable. She stated that she has not been using marijuana. Did not report alcohol abuse or illicit drug use. In the ED, she was found to have tachycardia. Blood pressure is stable. Blood workup was remarkable, 18.5. There was marked lactic acidosis of 5.8, and normalized in 2 hours. Hemoglobin is 11.2 and platelets 565. Venous pH is 7.57, pCO2 24 with normal HC03, 22. There are no significant electrolyte imbalances. Renal function is normal. Blood glucose 235. LFTs are basically unremarkable. Lipase is 5 and beta hydroxybutyrate is 0.58. Urinalysis showed proteinuria, glucosuria, moderate blood and RBCs 11/20. ED tx: NS 2 L bolus, Zofran 4 mg IV, Dilaudid 2 g IV. Review of Systems 2 Review of Systems: Limited [facility] Medical History (Updated 05/30/24 @ 05:05 by Irwin Bishop MD) Diabetic gastroparesis Acute UTI Diabetes mellitus type 1 Chronic hypertension Intractable cyclical vomiting with nausea Diabetes mellitus with gastroparesis Diabetic gastroparesis Herpes zoster Status post fall Recurrent UTI NSTEMI (non-ST elevated myocardial infarction) Diabetic gastroparesis Anxiety Bipolar 1 disorder Pancreatitis Gastroparesis Diabetes Surgical History History of cholecystectomy History of tonsillectomy History of ERCP H/O pyloroplasty History of appendectomy H/O: hysterectomy Social History Household Members: Spouse Housing: House Do you presently have visiting nurse or other home services: No Unable to assess alcohol history related to: Refusing to respond Alcohol intake: never Comment: pt refused bed alarm Patient Tobacco Use Status: Former Tobacco user Tobacco use type: Cigarette Smoked in Last 30 Days: No e-Cigarette/Vaping Use: Never Used Second Hand Smoke Exposure: No Use of substances other than those prescribed or required for medical reasons: No Substance Use Type: Marijuana Advance Directives: Yes Advance Directives on File: Yes Advance Directives Date on File: 12/03/22 Do you have a plan to hurt others: No Plan service: No Current occupational status: disabled Cognitive needs: No Hearing needs: No Vision needs: No Meds Allergies Allergy/AdvReac Type Severity Reaction Status Date / Time morphine [MORPHINE] Allergy Intermediate RASH, Verified 05/30/24 00:03 hives, hives mushroom Allergy Intermediate HIVES/RASH Verified 05/30/24 00:03 Sulfa (Sulfonamide Allergy Mild Rash Verified 05/30/24 00:03 Antibiotics) mushroom Allergy Unknown throat Uncoded 05/30/24 00:03 closes up/difficult breathing mushrooms Allergy Unknown anaphylaxis Uncoded 05/30/24 00:03 Active Medications: Current Medications Lactated Ringer's (Lr) 1,000 mls @ 150 mls/hr IVCONT .Q6H40M [facility] Last Admin: 05/30/24 03:00 Dose: 150 mls/hr Insulin Pump (Subcutaneous Insulin Pump) 1 each SUBCUT QIDACHS [facility]; Protocol Metoclopramide HCl (Metoclopramide Hcl 10 Mg/2 Ml Vial) 10 mg IVPUSH Q6H RAISA Prochlorperazine Edisylate (Prochlorperazine Edisylate 10 Mg/2 Ml Vial) 5 mg IVPUSH Q6H PRN PRN Reason: Nausea and Vomiting Sodium Chloride (0.9 % Sodium Chloride Flush 3 Ml Syringe) 3 ml IVFLUSH QSHIFT [facility] Home Medications ?Medication ?Instructions ?Recorded ?Confirmed ?Last Taken ?Type lamotrigine 200 mg tablet 200 mg PO BID 05/11/20 04/19/24 04/18/24 History lorazepam 1 mg tablet 1 mg PO TID PRN Anxiety 05/11/20 04/19/24 06/17/23 08:00 History zolpidem 10 mg tablet 10 mg PO BEDTIME 05/11/20 04/19/24 04/18/24 History insulin aspart U-100 100 unit/mL See Rx Instructions .Route .COMPLEX 06/01/20 04/19/24 04/18/24 History (3 mL) subcutaneous pen (Novolog FlexPen U-100 Insulin aspart) risperidone 2 mg tablet 2 mg PO BID 09/13/21 04/19/24 04/18/24 History omeprazole 20 mg capsule,delayed 20 mg PO BID 02/24/24 04/19/24 04/18/24 History release Physical Exam 2 Vital Signs and Narrative: Vital Signs: Last Vital Signs Temp 98.4 F 05/30/24 02:26 Pulse 119 H 05/30/24 02:26 Resp 16 05/30/24 02:26 BP 165/92 H 05/30/24 02:26 Pulse Ox 96 05/30/24 02:26 O2 Del Method Room Air 05/30/24 02:26 BMI result Body Mass Index 26.6 Constitutional - Awake and Alert, No apparent distress. Looks uncomfortable due to pain. HEENT - PER, EOMI. Normal sclerae. Dry oral mucosa. Heart - Tachycardic. Regular rhythm. No murmurs. Lungs - Normal lung expansion, Normal respiratory effort, No respiratory distress, CTA bilaterally Abdomen - NT / ND; +BS; No rebound or guarding Extremities - no calf tenderness bilaterally, no swelling Musculoskeletal - Normal inspection, normal ROM Skin - Warm/Dry Neurological - Alert & oriented x3. Psychological - Depressed affect Results Labs 05/29/24 23:50 05/30/24 02:06 Labs: Laboratory Results - last 24 hr 05/29/24 05/29/24 05/29/24 23:09 23:50 23:51 MCV 80.7 MCH 26.7 L MCHC 33.0 RDW 15.9 Plt Count 565 H MPV 8.5 L Immature Gran % (Auto) 0.5 H Neut % (Auto) 90.2 H Lymph % (Auto) 7.3 L [place] % (Auto) 1.7 L Eos % (Auto) 0.0 Baso % (Auto) 0.3 Lymph # (Auto) 1.4 [place] # (Auto) 0.3 Eos # (Auto) 0.0 Baso # (Auto) 0.1 Abs Immat Gran (auto) 0.09 H Absolute Neuts (auto) 16.7 H Absolute Nucleated RBC 0.000 Nucleated RBC % (auto) 0.0 Smear Tech's Comments VERIFIED VBG pH VBG pCO2 VBG pO2 VBG HCO3 VBG O2 Saturation VBG Base Excess Anion Gap 26 H Estim Creat Clear Calc 62.3 Estimated GFR 56 POC Glucose 296 H Random Glucose 317 H Lactic Acid 5.8 H* Lactic Acid F/U @ 2Hr Calcium 10.3 H D Magnesium 1.7 Total Bilirubin 0.3 AST 20 ALT 18 Alkaline Phosphatase 154 H Total Protein 8.4 H Albumin 4.5 Lipase 5 L Beta-Hydroxybutyrate 0.58 H Urine Color Urine Appearance Urine pH Ur Specific [place] Urine Protein Urine Glucose (UA) Urine Ketones Urine Blood Urine Nitrite Ur Leukocyte Esterase Urine RBC Urine WBC Ur Squamous Epith Cells Urine Bacteria Hyaline Casts 05/29/24 05/30/24 05/30/24 23:56 01:52 02:06 MCV MCH MCHC RDW Plt Count MPV Immature Gran % (Auto) Neut % (Auto) Lymph % (Auto) [place] % (Auto) Eos % (Auto) Baso % (Auto) Lymph # (Auto) [place] # (Auto) Eos # (Auto) Baso # (Auto) Abs Immat Gran (auto) Absolute Neuts (auto) Absolute Nucleated RBC Nucleated RBC % (auto) Smear Tech's Comments VBG pH 7.57 H VBG pCO2 24 VBG pO2 88 VBG HCO3 22 VBG O2 Saturation 96.0 VBG Base Excess 1.8 Anion Gap 18 Estim Creat Clear Calc 80.8 Estimated GFR > 60 POC Glucose Random Glucose 235 H Lactic Acid Lactic Acid F/U @ 2Hr 1.6 Calcium 8.9 D Magnesium Total Bilirubin AST ALT Alkaline Phosphatase Total Protein Albumin Lipase Beta-Hydroxybutyrate Urine Color Yellow Urine Appearance Clear Urine pH 7.5 Ur Specific [place] 1.015 Urine Protein 100 (2+) H Urine Glucose (UA) >=1000 H Urine Ketones 15 Urine Blood Moderate (2+) H Urine Nitrite Negative Ur Leukocyte Esterase Negative Urine RBC 11-20 H Urine WBC 0-5 Ur Squamous Epith Cells 0-2 Urine Bacteria None Seen Hyaline Casts 0-2 Assessment and Plan (1) Acidosis, lactic: Status: Acute (2) Acute dehydration: Status: Acute (3) Cyclic vomiting syndrome: Status: Acute (4) Diabetic gastroparesis: Status: Acute Plan Yumiko Sena is a 48 years old woman admitted with: * Abdominal pain and vomiting likely due to diabetic gastroparesis. Admit to hospitalist service. NPO. Continue IV fluids. Reglan 10 mg IV every 8 hours. Compazine as needed. Protonix 40 mg IV twice daily. Pain control with Dilaudid IV as needed. Check urine drug screen. * SIRS: Tachycardia, leukocytosis. No signs of infection. Likely secondary to vomiting + hypovolemia/dehydration. Telemetry. Continue IV fluids. Continue to monitor. * Marked lactic acidosis, quickly resolved. Likely secondary to hypovolemia. Doubt sepsis: No sign of acute infection. Hold off antibiotics for now. * Type 1 diabetes mellitus. Not in DKA Continue patient is own insulin pump. * Essential hypertension. Metoprolol 5 mg IV every 6 hours. Continue to monitor BP. * GERD. Continue PPI. * Bipolar disorder. Continue home meds when able. Patient will need hospitalization for at least 2 midnight for are dehydration secondary to vomiting due to gastroparesis treatment with IV fluids, antiemetic and IV pain control. She will also will need close monitoring of vital signs. Quality Stroke Does the patient have a stroke diagnosis?: No VTE Prior VTE?: No VTE Risk Level:: Medical - moderate - high VTE Device Contraindication: Treatment Not Indicated VTE Drug Contraindication: N/A - Med Ordered
--- NOTE | 2024-05-30 04:49 | PC.NURSE ---
PO trial failed. Pt took one bite of a cracker and said nope I can't eat this. This is going to make me throw up.
[2024-05-30] MEDS: Metoprolol Tartrate 5 MG/5 ML VIAL IVPUSH ×2 (05:16→12:19)
[2024-05-30] MEDS: Metoclopramide HCl 10 MG/2 ML VIAL IVPUSH (05:17)
[2024-05-30 06:02] LABS: Amphetamine Screen Urine Not Detected (Not Detect); Barbiturates, Urine Not Detected (Not Detect); Benzodiazepines Screen Urine Not Detected (Not Detect); Buprenorphine Scr Not Detected (Not Detect); Cannabinoid Screen Urine POSITIVE (Not Detect); Cocaine Screen Urine Not Detected (Not Detect); Fentanyl, urine Not Detected (Not Detect); Methadone Screen, Urine Not Detected (Not Detect); Opiate Screen Urine Not Detected (Not Detect); Oxycodone Screen Urine Not Detected (Not Detect); Phencyclidine Screen Urine Not Detected (Not Detect)
[2024-05-30] MEDS: Pantoprazole Sodium 40 MG/10 ML VIAL IVPUSH (07:06)
--- NOTE | 2024-05-30 07:15 | PC.NURSE ---
pt is alert and oriented, skin pwd, respirations even and unlabored, pt reports abd pain 9/10 and nausea, pt's abd is soft and but slightly tender pt does have her own insulin pump and poc this am 167 according to the pt she would not give herself any insulin at this time
[2024-05-30 07:18] LABS: Glucose, Whole Blood 167 mg/dL (60-115)
[2024-05-30] MEDS: Prochlorperazine Edisylate 10 MG/2 ML VIAL 5 MG IVPUSH ×2 (07:18→17:30)
[2024-05-30] MEDS: HYDROmorphone HCl 1 MG/ML SYRINGE IVPUSH ×3 (07:18→17:31)
--- NOTE | 2024-05-30 10:36 | PHA.MEDREC ---
Pharmacy Consult ? Medication Reconciliation Pharmacy has completed the medication reconciliation. Spoke to pt to confirm meds.
--- NOTE | 2024-05-30 11:16 | PC.NURSE ---
pt reports that she no longer takes Reglan because she was experiencing dyskinesia symptoms, dr bryant is aware
[2024-05-30 12:22] LABS: MANUAL DIFF FLAG NO
[2024-05-30 12:24] LABS: Basophils Percent Auto 0.2 % (0-2); Hematocrit 31.6 % (37.0-47.0); Hemoglobin 10.6 g/dl (12.0-16.0); Imm Gran Abs Auto 0.06 X10*3/uL (0.00-0.03); Imm Gran Pct Auto 0.3 % (0.0-0.4); Lymphocytes Absolute Auto 3.4 X10*3/uL (1.2-4.9); Lymphocytes Percent Auto 18.5 % (20-40); Mean Corpuscular HGB Conc 33.5 g/dl (31.0-35.0); Mean Corpuscular Hemoglobin 27.2 pg (27.0-33.0); Mean Corpuscular Volume 81.2 fL (80.0-98.0); Mean Platelet Volume 8.5 fL (9.4-12.3); Monocytes Absolute Auto 1.3 X10*3/uL (0.1-1.2); Monocytes Percent Auto 6.9 % (2-11); Neutrophils Absolute Auto 13.6 x10*3/uL (2.0-8.3); Neutrophils Percent Auto 74.1 % (45-73); Platelet Count 517 X10*3/uL (160-400); Red Blood Count 3.89 X10*6/uL (4.20-5.50); White Blood Count 18.4 X10*3/uL (4.8-10.8)
[2024-05-30 12:32] LABS: VBG Base Excess 4.6 mmol/L; VBG HCO3 27 mmol/L (22-26); VBG pCO2 34 mmHg; VBG pO2 51 mmHg
[2024-05-30 12:33] LABS: Glucose, Whole Blood 132 mg/dL (60-115)
[2024-05-30 12:33] LABS: Venous Blood Gas Refer to POC result
[2024-05-30 12:46] LABS: Estimated Average Glucose 183 mg/dL; Hemoglobin A1C 175.6485 umol/L
[2024-05-30 13:01] LABS: Alanine Aminotransferase 13 U/L (0-31); Albumin Level 4.1 g/dL (3.5-5.0); Anion Gap 17 (12-20); Aspartate Amino Transferase 17 U/L (5-31); Beta-Hydroxybutyrate 0.74 mmol/L (0.02-0.27); Bilirubin Total 0.4 mg/dL (0.0-1.0); Blood Urea Nitrogen 14 mg/dL (9-16); Calcium 9.5 mg/dL (8.4-10.2); Carbon Dioxide 24 mmol/L (22-29); Chloride 101 mmol/L (96-108); Creatinine Clr Calc Pharmacy 88.4; Estimated Glomerular Filt Rate > 60; Glucose Random 127 mg/dL (60-115); Magnesium 1.7 mg/dL (1.6-2.6); Potassium 3.7 mmol/L (3.3-5.1); Sodium 138 mmol/L (135-145); Total Protein 7.3 g/dL (6.5-8.0)
[2024-05-30 13:59] LABS: Alkaline Phosphatase 130 U/L (39-117)
--- NOTE | 2024-05-30 14:50 | PM.EVENT ---
Event Note Date of Service: 05/30/24 Event Note: Chart reviewed patient examined. Agree with assessment and plan as outlined by akash de leon. Patient well known to hospitalist service with similar presentations in past of diabetic gastroparesis with exacerbation. Continue current therapies; continue patient's insulin pump at outpatient dosing Time Spent With Patient Time: Total time managing care of this patient today ____ minutes.
--- NOTE | 2024-05-30 15:23 | PC.NURSE ---
Pt. admitted to [facility] w/ Tele order, messaged Dr. Mahan to see if tele order can be canceled, Dr. Mahan okay'd tele to be d/c'd. [facility], report called to Maxine, will be transported over when transport available.
[2024-05-30] MEDS: risperiDONE 2 MG TABLET PO ×2 (15:32→20:48)
[2024-05-30] MEDS: Metoprolol Tartrate 25 MG TABLET PO ×2 (15:32→20:49)
[2024-05-30] MEDS: lamoTRIgine 100 MG TABLET 200 MG PO ×2 (15:33→20:48)
[2024-05-30] MEDS: Midodrine HCl 5 MG TABLET PO (15:34)
[2024-05-30] MEDS: Ondansetron ODT 4 MG TAB.RAPDIS TRANSLINGU (15:37)
[2024-05-30] MEDS: LORazepam 1 MG TABLET PO (15:37)
[2024-05-30 16:54] LABS: Glucose, Whole Blood 179 mg/dL (60-115)
[2024-05-30] MEDS: 0.9 % Sodium Chloride Flush 3 ML SYRINGE IVFLUSH (17:35)
--- NOTE | 2024-05-30 17:35 | PC.NURSE ---
patient reported to this RN that her Insulin pump is at <10% and will no longer be able to cover her blood sugars. MD made aware.
--- NOTE | 2024-05-30 19:10 | PC.NURSE ---
received report from Jemima HARPER, assume care of pt at this time
[2024-05-30 20:46] LABS: Glucose, Whole Blood 185 mg/dL (60-115)
[2024-05-30] MEDS: Insulin Lispro 100 UNIT/ML 3 ML VIAL SUBCUT (20:49)
[2024-05-30] MEDS: Zolpidem Tartrate 5 MG TABLET PO (20:49)
[2024-05-30] MEDS: Insulin Glargine,Hum.rec.anlog 100 UNIT/ML 10 ML VIAL 10 UNIT SUBCUT (20:50)
--- NOTE | 2024-05-30 21:00 | PC.NURSE ---
pt's insulin pump, was at 5%, and not measuring her BS, the same and the hospital POC. Pt took the pump off and placed it in her bag.
[2024-05-31] VITALS (8 sets, daily range): BP systolic 140–170; BP diastolic 76–86; PULSE 103–119; RESP 16–18; TEMP 36.3–37.2; O2SAT 97–98
[2024-05-31] MEDS: HYDROmorphone HCl 1 MG/ML SYRINGE IVPUSH ×3 (00:07→09:04)
[2024-05-31] MEDS: Lactated Ringers 1,000 ML 150 ML IVCONT ×3 (00:07→11:51)
[2024-05-31] MEDS: Prochlorperazine Edisylate 10 MG/2 ML VIAL 5 MG IVPUSH ×3 (00:07→20:43)
--- NOTE | 2024-05-31 00:29 | PC.NURSE ---
pt c/o of pain, and requests pain and nausea medication. Pt medicated as requested
[2024-05-31] MEDS: Ondansetron ODT 4 MG TAB.RAPDIS TRANSLINGU (02:45)
[2024-05-31] MEDS: LORazepam 1 MG TABLET PO ×2 (02:45→20:43)
[2024-05-31] MEDS: Metoclopramide HCl 10 MG/2 ML VIAL IVPUSH ×4 (04:08→22:56)
[2024-05-31] MEDS: Omeprazole 20 MG CAPSULE.DR PO ×2 (06:15→16:49)
[2024-05-31] MEDS: Pantoprazole Sodium 40 MG/10 ML VIAL IVPUSH (06:15)
[2024-05-31 07:32] LABS: Glucose, Whole Blood 294 mg/dL (60-115)
[2024-05-31] MEDS: Insulin Lispro 100 UNIT/ML 3 ML VIAL SUBCUT ×4 (07:57→21:18)
[2024-05-31] MEDS: Insulin Glargine,Hum.rec.anlog 100 UNIT/ML 10 ML VIAL 10 UNIT SUBCUT ×2 (07:57→21:19)
[2024-05-31] MEDS: Metoprolol Tartrate 25 MG TABLET PO ×2 (07:58→20:44)
[2024-05-31] MEDS: Midodrine HCl 5 MG TABLET PO (07:58)
[2024-05-31] MEDS: lamoTRIgine 100 MG TABLET 200 MG PO ×2 (07:58→20:44)
[2024-05-31] MEDS: risperiDONE 2 MG TABLET PO ×2 (07:58→20:43)
[2024-05-31] MEDS: 0.9 % Sodium Chloride Flush 3 ML SYRINGE IVFLUSH ×3 (08:00→21:24)
[2024-05-31 08:46] LABS: MANUAL DIFF FLAG NO
[2024-05-31 08:49] LABS: Basophils Absolute Auto 0.1 X10*3/uL (0.0-0.2); Basophils Percent Auto 0.5 % (0-2); Eosinophils Percent Auto 0.2 % (0-4); Hematocrit 33.3 % (37.0-47.0); Hemoglobin 10.8 g/dl (12.0-16.0); Imm Gran Abs Auto 0.07 X10*3/uL (0.00-0.03); Imm Gran Pct Auto 0.4 % (0.0-0.4); Lymphocytes Absolute Auto 3.9 X10*3/uL (1.2-4.9); Lymphocytes Percent Auto 22.6 % (20-40); Mean Corpuscular HGB Conc 32.4 g/dl (31.0-35.0); Mean Corpuscular Volume 83.3 fL (80.0-98.0); Mean Platelet Volume 8.8 fL (9.4-12.3); Monocytes Absolute Auto 0.9 X10*3/uL (0.1-1.2); Monocytes Percent Auto 5.2 % (2-11); Neutrophils Absolute Auto 12.2 x10*3/uL (2.0-8.3); Neutrophils Percent Auto 71.1 % (45-73); Platelet Count 514 X10*3/uL (160-400); Red Cell Distribution Width 15.7 % (11.0-16.0); White Blood Count 17.2 X10*3/uL (4.8-10.8)
[2024-05-31 09:11] LABS: Alanine Aminotransferase 14 U/L (0-31); Albumin Level 3.9 g/dL (3.5-5.0); Alkaline Phosphatase 133 U/L (39-117); Anion Gap 17 (12-20); Anion Gap 18 (12-20); Aspartate Amino Transferase 24 U/L (5-31); Bilirubin Total 0.5 mg/dL (0.0-1.0); Blood Urea Nitrogen 14 mg/dL (9-16); Calcium 8.7 mg/dL (8.4-10.2); Carbon Dioxide 20 mmol/L (22-29); Carbon Dioxide 21 mmol/L (22-29); Chloride 98 mmol/L (96-108); Creatinine Clr Calc Pharmacy 86.1; Creatinine Clr Calc Pharmacy 87.2; Estimated Glomerular Filt Rate > 60; Glucose Fasting 304 mg/dL (60-99); Glucose Random 301 mg/dL (60-115); Potassium 3.5 mmol/L (3.3-5.1); Potassium 3.6 mmol/L (3.3-5.1); Sodium 132 mmol/L (135-145); Total Protein 7.2 g/dL (6.5-8.0)
--- NOTE | 2024-05-31 09:41 | MHC.CM.PN ---
PT REPORTS SHE LIVES WITH HER AND IS INDEPENDENT WITH CARE SHE HAS NO DME AND NO SERVICES HCP ON FILE PCP: SABRINA LYNCH IMM DELIVERED DCP: HOME NO SERVICES TO TRANSPORT
[2024-05-31 11:17] LABS: Glucose, Whole Blood 195 mg/dL (60-115)
--- NOTE | 2024-05-31 11:34 | P.PNIM_ITS ---
Subjective Subjective Date of Service: 05/31/24 Interval History: Complaining of nausea and mid abdominal discomfort, no vomiting had 2 bowel movement this a.m. ambulated to bathroom without lightheadedness or dizziness, no chest pain, no anxiety, no other acute events overnight, no fevers, no chills blood sugars 195, using insulin sliding scale and Lantus removed insulin pump yesterday. Review of Systems All other symptoms reviewed and are negative Physical Exam 2 Vital Signs: Vital Signs: Last Vital Signs Temp 98.5 F 05/31/24 07:16 Pulse 111 H 05/31/24 07:16 Resp 18 05/31/24 09:04 BP 140/76 H 05/31/24 07:16 Pulse Ox 97 05/31/24 07:16 O2 Del Method Room Air 05/31/24 07:16 BMI result Body Mass Index 26.6 Const: Other: General awake alert x3, in no acute distress. Moist mucous membranes Neck no JVD. CVS regular rate rhythm, Respiratory lungs clear to auscultation, no respiratory distress, no wheeze, no rhonchi. Gastrointestinal abdomen soft, non tender, bowel sounds audible, no guarding , no rigidity. Extremities no edema. Neuro non focal Skin no rash Psych appropriate affect Objective Data Active Medications Glucose (Glucose Gel 15 Gm Gel..Gram.) 15 gm PO Q15M PRN; Protocol PRN Reason: per Hypoglycemia Standing Ord. Hydromorphone HCl (Hydromorphone Hcl 1 Mg/Ml Syringe) 1 mg IVPUSH Q4H PRN; Protocol PRN Reason: Pain, Severe (Pain Scale 7-10) Last Admin: 05/31/24 09:04 Dose: 1 mg Documented By: GREGORY Lactated Ringer's (Lr) 1,000 mls @ 150 mls/hr IVCONT .Q6H40M [facility] Last Admin: 05/31/24 06:15 Dose: 150 mls/hr Documented By: CAITLIN Dextrose (D10) 250 mls @ 750 mls/hr IV Q15M PRN; Protocol PRN Reason: per Hypoglycemia Standing Ord. Insulin Glargine (Insulin Glargine,Hum.Rec.Anlog 100 Unit/Ml 10 Ml Vial) 10 unit SUBCUT BID [facility] Last Admin: 05/31/24 07:57 Dose: 10 unit Documented By: GREGORY Insulin Human Lispro (Insulin Lispro 100 Unit/Ml 3 Ml Vial) 0 unit SUBCUT QIDACHS [facility]; Protocol Last Admin: 05/31/24 07:57 Dose: 6 unit Documented By: GREGORY Lamotrigine (Lamotrigine 100 Mg Tablet) 200 mg PO BID [facility] Last Admin: 05/31/24 07:58 Dose: 200 mg Documented By: GREGORY Lorazepam (Lorazepam 1 Mg Tablet) 1 mg PO TID PRN PRN Reason: Anxiety Last Admin: 05/31/24 02:45 Dose: 1 mg Documented By: CAITLIN Metoclopramide HCl (Metoclopramide Hcl 10 Mg/2 Ml Vial) 10 mg IVPUSH Q6H [facility] Last Admin: 05/31/24 11:09 Dose: 10 mg Documented By: GREGORY Metoprolol Tartrate (Metoprolol Tartrate 25 Mg Tablet) 25 mg PO BID [facility]; Protocol Last Admin: 05/31/24 07:58 Dose: 25 mg Documented By: GREGORY Midodrine (Midodrine Hcl 5 Mg Tablet) 5 mg PO DAILY [facility] Last Admin: 05/31/24 07:58 Dose: 5 mg Documented By: GREGORY Omeprazole (Omeprazole 20 Mg Capsule.Dr) 20 mg PO BID@0630,1630 [facility] Last Admin: 05/31/24 06:15 Dose: 20 mg Documented By: CAITLIN Ondansetron HCl (Ondansetron Odt 4 Mg Tab.Rapdis) 4 mg TRANSLINGU Q8H PRN PRN Reason: nausea and vomiting Last Admin: 05/31/24 02:45 Dose: 4 mg Documented By: CAITLIN Pantoprazole Sodium (Pantoprazole Sodium 40 Mg/10 Ml Vial) 40 mg IVPUSH DAILY@0630 [facility] Last Admin: 05/31/24 06:15 Dose: 40 mg Documented By: CAITLIN Prochlorperazine Edisylate (Prochlorperazine Edisylate 10 Mg/2 Ml Vial) 5 mg IVPUSH Q6H PRN PRN Reason: Nausea and Vomiting Last Admin: 05/31/24 07:53 Dose: 5 mg Documented By: GREGORY Risperidone (Risperidone 2 Mg Tablet) 2 mg PO BID [facility] Last Admin: 05/31/24 07:58 Dose: 2 mg Documented By: GREGORY Sodium Chloride (0.9 % Sodium Chloride Flush 3 Ml Syringe) 3 ml IVFLUSH QSHIFT [facility] Last Admin: 05/31/24 08:00 Dose: 3 ml Documented By: GREGORY Zolpidem Tartrate (Zolpidem Tartrate 5 Mg Tablet) 5 mg PO BEDTIME [facility] Last Admin: 05/30/24 20:49 Dose: 5 mg Documented By: PAUL Labs 05/31/24 08:35 05/31/24 08:35 Labs: Laboratory Results - last 24 hr 05/30/24 05/30/24 05/30/24 12:15 12:16 12:23 MCV 81.2 MCH 27.2 MCHC 33.5 RDW 16.0 Plt Count 517 H MPV 8.5 L Immature Gran % (Auto) 0.3 Neut % (Auto) 74.1 H Lymph % (Auto) 18.5 L [place] % (Auto) 6.9 Eos % (Auto) 0.0 Baso % (Auto) 0.2 Lymph # (Auto) 3.4 [place] # (Auto) 1.3 H Eos # (Auto) 0.0 Baso # (Auto) 0.0 Abs Immat Gran (auto) 0.06 H Absolute Neuts (auto) 13.6 H Absolute Nucleated RBC 0.000 Nucleated RBC % (auto) 0.0 VBG pH 7.50 H VBG pCO2 34 VBG pO2 51 VBG HCO3 27 H VBG O2 Saturation 87.0 VBG Base Excess 4.6 Anion Gap 17 Estim Creat Clear Calc 88.4 Estimated GFR > 60 POC Glucose Random Glucose 127 H Fasting Glucose Estimat Average Glucose 183 Hemoglobin A1c % 8.0 H Calcium 9.5 D Magnesium 1.7 Total Bilirubin 0.4 AST 17 ALT 13 Alkaline Phosphatase 130 H Total Protein 7.3 Albumin 4.1 Beta-Hydroxybutyrate 0.74 H 05/30/24 05/30/24 05/30/24 12:30 16:51 20:38 MCV MCH MCHC RDW Plt Count MPV Immature Gran % (Auto) Neut % (Auto) Lymph % (Auto) [place] % (Auto) Eos % (Auto) Baso % (Auto) Lymph # (Auto) [place] # (Auto) Eos # (Auto) Baso # (Auto) Abs Immat Gran (auto) Absolute Neuts (auto) Absolute Nucleated RBC Nucleated RBC % (auto) VBG pH VBG pCO2 VBG pO2 VBG HCO3 VBG O2 Saturation VBG Base Excess Anion Gap Estim Creat Clear Calc Estimated GFR POC Glucose 132 H 179 H 185 H Random Glucose Fasting Glucose Estimat Average Glucose Hemoglobin A1c % Calcium Magnesium Total Bilirubin AST ALT Alkaline Phosphatase Total Protein Albumin Beta-Hydroxybutyrate 05/31/24 05/31/24 05/31/24 07:21 08:35 08:35 MCV 83.3 MCH 27.0 MCHC 32.4 RDW 15.7 Plt Count 514 H MPV 8.8 L Immature Gran % (Auto) 0.4 Neut % (Auto) 71.1 Lymph % (Auto) 22.6 [place] % (Auto) 5.2 Eos % (Auto) 0.2 Baso % (Auto) 0.5 Lymph # (Auto) 3.9 [place] # (Auto) 0.9 Eos # (Auto) 0.0 Baso # (Auto) 0.1 Abs Immat Gran (auto) 0.07 H Absolute Neuts (auto) 12.2 H Absolute Nucleated RBC 0.000 Nucleated RBC % (auto) 0.0 VBG pH VBG pCO2 VBG pO2 VBG HCO3 VBG O2 Saturation VBG Base Excess Anion Gap 17 18 Estim Creat Clear Calc 87.2 Estimated GFR POC Glucose 294 H Random Glucose Fasting Glucose Estimat Average Glucose Hemoglobin A1c % Calcium Magnesium Total Bilirubin AST ALT Alkaline Phosphatase Total Protein Albumin Beta-Hydroxybutyrate 05/31/24 05/31/24 05/31/24 08:35 08:35 08:35 MCV MCH MCHC RDW Plt Count MPV Immature Gran % (Auto) Neut % (Auto) Lymph % (Auto) [place] % (Auto) Eos % (Auto) Baso % (Auto) Lymph # (Auto) [place] # (Auto) Eos # (Auto) Baso # (Auto) Abs Immat Gran (auto) Absolute Neuts (auto) Absolute Nucleated RBC Nucleated RBC % (auto) VBG pH VBG pCO2 VBG pO2 VBG HCO3 VBG O2 Saturation VBG Base Excess Anion Gap Estim Creat Clear Calc 86.1 Estimated GFR > 60 > 60 POC Glucose Random Glucose 301 H Fasting Glucose 304 H Estimat Average Glucose Hemoglobin A1c % Calcium 8.7 D 9.0 Magnesium Total Bilirubin 0.5 AST 24 ALT 14 Alkaline Phosphatase 133 H Total Protein 7.2 Albumin 3.9 Beta-Hydroxybutyrate 05/31/24 11:09 MCV MCH MCHC RDW Plt Count MPV Immature Gran % (Auto) Neut % (Auto) Lymph % (Auto) [place] % (Auto) Eos % (Auto) Baso % (Auto) Lymph # (Auto) [place] # (Auto) Eos # (Auto) Baso # (Auto) Abs Immat Gran (auto) Absolute Neuts (auto) Absolute Nucleated RBC Nucleated RBC % (auto) VBG pH VBG pCO2 VBG pO2 VBG HCO3 VBG O2 Saturation VBG Base Excess Anion Gap Estim Creat Clear Calc Estimated GFR POC Glucose 195 H Random Glucose Fasting Glucose Estimat Average Glucose Hemoglobin A1c % Calcium Magnesium Total Bilirubin AST ALT Alkaline Phosphatase Total Protein Albumin Beta-Hydroxybutyrate Microbiology Microbiology Results: Microbiology 05/30/24 07:10 Blood Culture - Preliminary Blood - Venous No growth after 24 hours. 05/30/24 07:10 Blood Culture - Preliminary Blood - Venous No growth after 24 hours. Assessment and Plan (1) Diabetic gastroparesis: Status: Acute (2) Type 1 diabetes: Status: Acute (3) Acidosis, lactic: Status: Acute (4) Cyclic vomiting syndrome: Status: Acute Plan Yumiko Sena is a 48 years old woman admitted with: Abdominal pain and vomiting likely due to diabetic gastroparesis/cannabinoid induced cyclical vomiting syndrome. No further vomiting, feel nauseous and mid abdominal pain Place on diabetic diet ,wean IV fluids, antiemetics and analgesics. DC IV Protonix Urine toxicology positive for marijuana Recommend out of bed chair, placed on diabetic diet SIRS: Tachycardia, leukocytosis likely reactive, UA unremarkable, no URI symptoms, recent CT abdomen and pelvis unremarkable,, Likely secondary to vomiting + hypovolemia/dehydration, Continue to monitor. Marked acute lactic acidosis, quickly resolved. Likely secondary to hypovolemia. ,No sign of acute infection, not due to sepsis. Type 1 diabetes mellitus. Continue Lantus and insulin sliding scale place on diabetic diet, resume insulin pump upon discharge Essential hypertension. Continue to monitor BP. GERD. Continue PPI, . Bipolar disorder. Continue home meds Patient will need continued inpatient hospitalization for dehydration secondary to vomiting due to gastroparesis treatment with IV fluids, antiemetic and IV pain control. Quality Stroke Does the patient have a stroke diagnosis?: No VTE Prior VTE?: No VTE Risk Level:: Medical - moderate - high VTE Device Contraindication: Treatment Not Indicated VTE Drug Contraindication: N/A - Med Ordered
[2024-05-31] MEDS: HYDROmorphone HCl 0.5 MG/0.5 ML SYRINGE IVPUSH ×3 (13:13→21:19)
[2024-05-31 16:27] LABS: Glucose, Whole Blood 155 mg/dL (60-115)
[2024-05-31 21:13] LABS: Glucose, Whole Blood 243 mg/dL (60-115)
[2024-05-31] MEDS: Zolpidem Tartrate 5 MG TABLET PO (21:19)
[2024-05-31] MEDS: Lactated Ringers 1,000 ML 100 ML IVCONT (21:21)
[2024-06-01] MEDS: HYDROmorphone HCl 0.5 MG/0.5 ML SYRINGE IVPUSH ×3 (01:25→09:44)
[2024-06-01 03:44] VITALS: BP 111/54; PULSE 86; RESP 16; TEMP 36.8; O2SAT 97
[2024-06-01] MEDS: Omeprazole 20 MG CAPSULE.DR PO (05:43)
[2024-06-01] MEDS: Metoclopramide HCl 10 MG/2 ML VIAL IVPUSH (05:43)
[2024-06-01] MEDS: Ondansetron ODT 4 MG TAB.RAPDIS TRANSLINGU (07:19)
[2024-06-01 07:22] LABS: Hemoglobin 9.6 g/dl (12.0-16.0); Mean Corpuscular HGB Conc 33.1 g/dl (31.0-35.0); Mean Corpuscular Hemoglobin 26.5 pg (27.0-33.0); Mean Corpuscular Volume 80.1 fL (80.0-98.0); Platelet Count 462 X10*3/uL (160-400); Red Blood Count 3.62 X10*6/uL (4.20-5.50); Red Cell Distribution Width 15.1 % (11.0-16.0); White Blood Count 14.1 X10*3/uL (4.8-10.8)
[2024-06-01 07:39] LABS: Glucose, Whole Blood 130 mg/dL (60-115)
[2024-06-01 07:43] LABS: Anion Gap 16 (12-20); Blood Urea Nitrogen 13 mg/dL (9-16); Calcium 9.1 mg/dL (8.4-10.2); Carbon Dioxide 25 mmol/L (22-29); Chloride 97 mmol/L (96-108); Creatinine Clr Calc Pharmacy 78.9; Estimated Glomerular Filt Rate > 60; Glucose Random 98 mg/dL (60-115); Potassium 3.3 mmol/L (3.3-5.1); Sodium 135 mmol/L (135-145)
[2024-06-01 08:00] VITALS: BP 122/69; PULSE 95; RESP 18; TEMP 36.6; O2SAT 93
[2024-06-01] MEDS: Prochlorperazine Edisylate 10 MG/2 ML VIAL 5 MG IVPUSH (09:28)
[2024-06-01] MEDS: 0.9 % Sodium Chloride Flush 3 ML SYRINGE IVFLUSH (09:58)
[2024-06-01] MEDS: lamoTRIgine 100 MG TABLET 200 MG PO (10:25)
[2024-06-01] MEDS: Midodrine HCl 5 MG TABLET PO (10:26)
[2024-06-01] MEDS: Metoprolol Tartrate 25 MG TABLET PO (10:26)
[2024-06-01] MEDS: risperiDONE 2 MG TABLET PO (10:26)
--- NOTE | 2024-06-01 11:22 | PM.DS ---
DS: Providers Provider Date of Service: 06/01/24 Date of admission: 05/30/24 04:33 Date of discharge: 06/01/24 Primary care physician: Unknown Physician DS: Diagnosis Discharge Diagnosis (1) Diabetic gastroparesis: Status: Acute (2) Type 1 diabetes: Status: Acute (3) Acidosis, lactic: Status: Acute (4) Cyclic vomiting syndrome: Status: Acute DS: Summary Hospital Course Hospital Course: Date of Service: 05/30/24 Attending physician on admission: Irwin Bishop Chief Complaint: Nausea and vomiting Yumiko Sena is a 48 years old woman with past medical history significant for type 1 diabetes mellitus on home insulin pump, multiple hospitalizations due to cyclic vomiting due to marijuana use, gastroparesis, GERD, hyperlipidemia and abdominal surgeries/procedures (including appendectomy, hysterectomy, ERCP and cholecystectomy) presents to the emergency department complaining of generalized abdominal pain, nausea and vomiting. HPI was limited as the patient was feeling uncomfortable. She stated that she has not been using marijuana. Did not report alcohol abuse or illicit drug use. In the ED, she was found to have tachycardia. Blood pressure is stable. Blood workup was remarkable, 18.5. There was marked lactic acidosis of 5.8, and normalized in 2 hours. Hemoglobin is 11.2 and platelets 565. Venous pH is 7.57, pCO2 24 with normal HC03, 22. There are no significant electrolyte imbalances. Renal function is normal. Blood glucose 235. LFTs are basically unremarkable. Lipase is 5 and beta hydroxybutyrate is 0.58. Urinalysis showed proteinuria, glucosuria, moderate blood and RBCs 11/20. ED tx: NS 2 L bolus, Zofran 4 mg IV, Dilaudid 2 g IV. 48 years old female admitted with Abdominal pain and vomiting likely due to diabetic gastroparesis/cannabinoid induced cyclical vomiting syndrome, treated with IV fluids, antiemetics and analgesics urine toxicology positive for marijuana, patient's symptoms improved therefore will discharge home to continue antiemetics , ppi, as before and recommend good blood sugar control. Patient noted to have acute lactic acidosis that resolved with IV hydration no acute infection noted, with unremarkable urinalysis, no URI symptoms and recent CT abdomen and pelvis showed no acute abnormality, leukocytosis likely reactive and trending down. Type 1 diabetes mellitus. Recommend to resume insulin pump Bipolar disorder. Continue home meds Time Attestation Discharge Coordination Time (in mins): 36 Quality: Safe Use of Opioids Does Pt have an Active Cancer Diagnosis on the Problem List?: No Quality: Stroke Does the patient have a stroke diagnosis?: No Physical Exam Vital Signs: Vital Signs: Last Vital Signs Temp 98 F 06/01/24 08:00 Pulse 95 06/01/24 08:00 Resp 18 06/01/24 08:00 BP 122/69 06/01/24 08:00 Pulse Ox 93 06/01/24 08:00 O2 Del Method Room Air 06/01/24 08:00 BMI result Body Mass Index 26.6 Const: Other: General awake alert x3, in no acute distress. Moist mucous membranes Neck no JVD. CVS regular rate rhythm, Respiratory lungs clear to auscultation, no respiratory distress, no wheeze, no rhonchi. Gastrointestinal abdomen soft,bowel sounds audible, no guarding , no rigidity. Extremities no edema. Neuro non focal Skin no rash Psych appropriate affect DS: Data Data Completed and Pending Labs on day of discharge: Laboratory Results - last 24 hr 05/31/24 05/31/24 06/01/24 16:15 20:55 05:30 WBC 14.1 H RBC 3.62 L Hgb 9.6 L Hct 29.0 L MCV 80.1 MCH 26.5 L MCHC 33.1 RDW 15.1 Plt Count 462 H MPV 9.0 L Absolute Nucleated RBC 0.000 Nucleated RBC % (auto) 0.0 Sodium 135 Potassium 3.3 Chloride 97 Carbon Dioxide 25 Anion Gap 16 BUN 13 Creatinine 0.83 Estim Creat Clear Calc 78.9 Estimated GFR > 60 POC Glucose 155 H 243 H Random Glucose 98 Calcium 9.1 06/01/24 07:21 WBC RBC Hgb Hct MCV MCH MCHC RDW Plt Count MPV Absolute Nucleated RBC Nucleated RBC % (auto) Sodium Potassium Chloride Carbon Dioxide Anion Gap BUN Creatinine Estim Creat Clear Calc Estimated GFR POC Glucose 130 H Random Glucose Calcium Preliminary micro results at discharge 05/30/24 07:10 Blood Culture - Preliminary Blood - Venous No growth after 48 hours. 05/30/24 07:10 Blood Culture - Preliminary Blood - Venous No growth after 48 hours. Discharge Plan Discharge Anticipated Discharge Date/Time: 06/01/24 11:20 Patient Disposition: Home, Self-Care Discharge Diagnosis: Abdominal pain Nausea vomiting Acute lactic acidosis Referrals: Physician,Unknown J [Primary Care Provider] - 1 Week Discharge Medications: Continued midodrine 5 mg tablet 5 mg PO DAILY Qty: 90 2RF metoprolol tartrate 25 mg tablet 25 mg PO BID Qty: 180 1RF insulin aspart U-100 [Novolog FlexPen U-100 Insulin] 100 unit/mL (3 mL) insulin pen See Rx Instructions .ROUTE .COMPLEX Rx Instructions: UP TO 60 unit subcutaneously DAILY;VIA TANDEM INSULIN PUMP lorazepam 1 mg Tablet 1 mg PO TID PRN (Reason: Anxiety) lamotrigine 200 mg Tablet 200 mg PO BID zolpidem 10 mg Tablet 10 mg PO BEDTIME risperidone 2 mg tablet 2 mg PO BID nitrofurantoin macrocrystal 50 mg capsule 50 mg PO BEDTIME ondansetron 4 mg tablet,disintegrating 4 mg PO Q8H PRN (Reason: nausea and vomiting) Qty: 20 0RF omeprazole 20 mg capsule,delayed release(DR/EC) 20 mg PO BID Discharge Orders: Discharge Order (Routine); Ordered 06/01/24 Ordered By: Asuncion Whipple Diet: Diabetic diet Activity on Discharge: As tolerated Stand Alone Forms: Patient Portal Discharge page Print Language: Bulgarian Care Plan Goals: Nausea vomiting resolved recommend to follow diabetic diet and good blood sugar control Remain in sitting position or at 45 degree angle for 30 minutes after eating Drink fluids Hold nitrofurantoin for few days since it can also cause nausea vomiting and abdominal pain. Health Concerns: Diabetes mellitus Mood disorder. Plan of Treatment: Follow-up with primary care physician call for appointment Assessment: As above
[2024-06-01 11:28] LABS: Glucose, Whole Blood 196 mg/dL (60-115)
--- NOTE | 2024-06-01 11:51 | MHC.CM.PN ---
pt dcd home self care
[2024-06-01 12:00] VITALS: BP 134/71; PULSE 96; RESP 17; TEMP 37; O2SAT 94
[2024-06-01] MEDS: Heparin Sodium,Porcine Flush 50 UNITS, 0.9 % Sodium Chloride Flush 5 ML IVFLUSH (12:20)
[2024-06-01] MEDS: Insulin Lispro 100 UNIT/ML 3 ML VIAL SUBCUT (12:34)
== END 2024-06-01 13:30 | disposition home or self-care (01) | DRG 74 ==
LOC: HO.ED 05-30 01:56 → HO.EDOVER 05-30 04:38 → HO.S3 05-31 01:42
PROVIDERS: Hospitalist; Admitting Provider Internal Medicine; Emergency Provider Internal Medicine; PCP Internal Medicine; Visit Provider Hospitalist
DX: E10.43 Type 1 diabetes mellitus with diabetic autonomic (poly)neuropathy (principal); R65.10 Systemic inflammatory response syndrome (SIRS) of non-infectious origin without acute organ dysfunction; E87.21 Acute metabolic acidosis; I10 Essential (primary) hypertension; R11.2 Nausea with vomiting, unspecified; F12.90 Cannabis use, unspecified, uncomplicated; K31.84 Gastroparesis; E86.0 Dehydration; K21.9 Gastro-esophageal reflux disease without esophagitis; F31.9 Bipolar disorder, unspecified; E86.1 Hypovolemia; Z96.41 Presence of insulin pump (external) (internal); Z87.891 Personal history of nicotine dependence; Z79.899 Other long term (current) drug therapy
CPT/HCPCS: 36415; 80048; 80053; 80307; 81001; 81003; 82010; 82803; 82947; 83036; 83605; 83690; 83735; 85025; 85027; 87040; 93005; 99285; J0737; J1171; J1642; J2405; J2470; J2765; J7120

== ENCOUNTER → 2024-05-29 23:15 | Outpatient (BNV) | payer OTHER, SELFPAY | PROVIDERS: Admitting Provider Internal Medicine; Emergency Provider Internal Medicine; Visit Provider Internal Medicine Cardiovascular Disease | DX: R00.0 Tachycardia, unspecified (principal) | CPT/HCPCS: 93010 ==

== ENCOUNTER → 2024-05-30 04:33 | Outpatient (BNV) | payer OTHER, SELFPAY | PROVIDERS: Admitting Provider Internal Medicine; Emergency Provider Internal Medicine; Visit Provider Internal Medicine | DX: E11.43 Type 2 diabetes mellitus with diabetic autonomic (poly)neuropathy (principal); K31.84 Gastroparesis; E87.20 Acidosis, unspecified; R11.15 Cyclical vomiting syndrome unrelated to migraine | CPT/HCPCS: 99223; 99232; 99239; 99499 ==

== ENCOUNTER 2024-07-23 11:27 | Inpatient (IN) | payer OTHER, SELFPAY ==
[2024-07-23] VITALS (8 sets, daily range): BP systolic 88–169; BP diastolic 46–90; PULSE 99–138; RESP 15–26; TEMP 36.6–37.2; O2SAT 95–99; BMI 24.0
--- NOTE | ~2024-07-23 | CT_ITS ---
EXAMINATION: CT HEAD WITHOUT CONTRAST CLINICAL INFORMATION: Altered mental status. COMPARISON: 10/12/2017. TECHNIQUE: Contiguous axial imaging was performed from the skull base to vertex without intravenous administration of contrast. This CT examination was performed using dose optimization techniques as appropriate, variously including the following: *Automated exposure control *Adjustment of mA and/or kV according to patient size (this includes techniques or standardized protocols for targeted exams where dose is matched to indication/reason for exam; i.e. extremities or head) *Use of iterative reconstruction technique FINDINGS: There is no evidence of intracranial hemorrhage or extra-axial fluid collection. There is no mass effect, or edema. No CT evidence of acute territorial infarct. Ventricles, sulci, and cisterns are normal in size and configuration for patient age. No hydrocephalus. No midline shift. No significant white matter abnormalities. Mild atheromatous calcification of the bilateral carotid siphons and V4 segments vertebral arteries bilaterally. Globes and orbital contents image normally. No extracranial soft tissue abnormalities. The paranasal sinuses, mastoid air cells, and tympanic cavities are normally aerated. No suspicious bony abnormalities. CT/CT head/brain wo IV con IMPRESSION: No acute intracranial abnormalities. Electronically signed by: Gumaro Powell MD 07/23/2024 04:30 PM [facility]
--- NOTE | ~2024-07-23 | XR_ITS ---
EXAMINATION: XR CHEST CLINICAL INFORMATION: tachypnea COMPARISON: 02/14/2024. TECHNIQUE: Frontal view of the chest was obtained. FINDINGS: Right chest port in place, with tip in the distal SVC, in good position. Cardiac, hilar, and mediastinal contours are normal. The lungs are clear bilaterally. There is no pneumothorax or effusion. No bony or soft tissue abnormality. XR/XR chest 1V IMPRESSION: No active disease. Electronically signed by: Gumaro Powell MD 07/23/2024 12:33 PM [facility]
--- NOTE | ~2024-07-23 | CT_ITS ---
EXAMINATION: CT ABDOMEN AND PELVIS WITH CONTRAST CLINICAL INFORMATION: Abdominal pain and vomiting. COMPARISON: CT abdomen and pelvis 04/20/2024 TECHNIQUE: Multidetector volumetric images were obtained from the superior aspect of the liver through the pubic symphysis following administration 85 mL of Omnipaque 350 intravenous contrast. Sagittal and coronal reformatted images were obtained on the technologist's workstation. Oral contrast: No This CT examination was performed using dose optimization techniques as appropriate, variously including the following: *Automated exposure control *Adjustment of mA and/or kV according to patient size (this includes techniques or standardized protocols for targeted exams where dose is matched to indication/reason for exam; i.e. extremities or head) *Use of iterative reconstruction technique FINDINGS: LUNG BASES: The visualized lung bases are unremarkable. LIVER, GALLBLADDER, AND BILIARY TREE: The liver is normal in size, shape, and attenuation. No focal hepatic lesion or biliary ductal dilatation is present. The gallbladder has been surgically removed. PANCREAS: Unremarkable. SPLEEN: Unremarkable. ADRENAL GLANDS: Unremarkable. KIDNEYS AND URETERS: The kidneys are normal in size, shape, and attenuation. Previously visualized bilateral renal calculi are not visualized on this contrast-enhanced CT. There is nonspecific mild bilateral perinephric stranding. BLADDER: There is mild anterior bladder wall thickening. The bladder is nondistended. GASTROINTESTINAL TRACT: There is moderate scattered stool and gas seen throughout the colon without distention. The small bowel loops are normal caliber. Appendix is not visualized. The IC junction is normal. ABDOMINAL WALL: No significant hernia is appreciated. LYMPH NODES: Normal. VASCULAR: Unremarkable. PELVIC VISCERA: Unremarkable. OSSEOUS STRUCTURES: Unremarkable. CT/CT abdomen pelvis w IV con IMPRESSION: No acute intra-abdominal process seen Moderate constipation. Previously visualized bilateral renal calcifications are not well-visualized on this contrast-enhanced CT Fleischner guidelines were followed. Electronically signed by: Jack Santos MD 07/23/2024 05:37 PM [facility] [place]
--- NOTE | 2024-07-23 11:50 | ECG_ITS ---
Test Reason : DKA Blood Pressure : */* mmHG Vent. Rate : 123 BPM Atrial Rate : 123 BPM P-R Int : 134 ms QRS Dur : 82 ms QT Int : 316 ms P-R-T Axes : 45 28 9 degrees QTcB Int : 452 ms Sinus tachycardia Possible Left atrial enlargement Cannot rule out Anterior infarct , age undetermined Abnormal ECG When compared with ECG of 29-May-2024 23:15, No significant change was found Referred By: Benton Roman Electronically Signed By: NADEEN MCKEON
--- NOTE | 2024-07-23 11:50 | ED.GENADULT ---
HPI - General Adult General Chief complaint: General Medical Stated complaint: WEAK,N/V PER EMS Time Seen by Provider: 07/23/24 11:50 History of Present Illness ED Provider: Jessie ALBA narrative: The patient is a 48-year-old woman with a history of type 1 diabetes. She has an insulin pump. She lives at home with her . The patient has a history of gastroparesis. She was last hospitalized in May of 2024. She came to the hospital today because of nausea and vomiting that has been bad for 2-3 weeks. In addition over the last 2 days her feels she has been confused. Overall the patient's says the patient has not been very well since she was last hospitalized. She has lost weight. She has frequent vomiting. She is often pacing around the apartment with a abdominal discomfort. He believes that her gastroparesis has been the main problem over the last few weeks. Today it was her confusion that prompted him to call an ambulance to bring her to the hospital. She has been confused for the past couple of days. She has been eating very little. The says she has fallen a couple of times at home but has not hit her head. No definite fevers. The patient is complaining of abdominal pain. She says that her nephrology social worker used to be Dr. Morgan but she does not know if she has a nephrology social worker still. She says at this point her primary complaints are her nausea and her abdominal pain. Related Data Home Medications ?Medication ?Instructions ?Recorded ?Confirmed lamotrigine 200 mg tablet 200 mg PO BID 05/11/20 05/30/24 lorazepam 1 mg tablet 1 mg PO TID PRN Anxiety 05/11/20 05/30/24 zolpidem 10 mg tablet 10 mg PO BEDTIME 05/11/20 05/30/24 insulin aspart U-100 100 unit/mL See Rx Instructions .Route .COMPLEX 06/01/20 05/30/24 (3 mL) subcutaneous pen (Novolog FlexPen U-100 Insulin aspart) risperidone 2 mg tablet 2 mg PO BID 09/13/21 05/30/24 omeprazole 20 mg capsule,delayed 20 mg PO BID 02/24/24 05/30/24 release nitrofurantoin macrocrystal 50 mg 50 mg PO BEDTIME 11/16/24 11/16/24 capsule Previous Rx's ?Medication ?Instructions ?Recorded ondansetron 4 mg disintegrating 4 mg PO Q8H PRN nausea and 04/02/24 tablet vomiting #20 tabs metoprolol tartrate 25 mg tablet 25 mg PO BID #180 tabs 04/12/24 nitrofurantoin macrocrystal 100 mg 100 mg PO BID 5 days #10 caps 06/29/24 capsule midodrine 5 mg tablet 5 mg PO DAILY #90 tabs 07/09/24 Allergies Allergy/AdvReac Type Severity Reaction Status Date / Time morphine [MORPHINE] Allergy Intermediate RASH, Verified 07/23/24 11:51 hives, hives mushroom Allergy Intermediate HIVES/RASH Verified 07/23/24 11:51 Sulfa (Sulfonamide Allergy Mild Rash Verified 07/23/24 11:51 Antibiotics) mushroom Allergy Unknown throat Uncoded 07/23/24 11:51 closes up/difficult breathing mushrooms Allergy Unknown anaphylaxis Uncoded 07/23/24 11:51 PMF Past Medical History Medical History (Updated 07/23/24 @ 18:41 by Benton Roman MD) Diabetic gastroparesis Acute UTI Diabetes mellitus type 1 Chronic hypertension Intractable cyclical vomiting with nausea Diabetes mellitus with gastroparesis Diabetic gastroparesis Herpes zoster Status post fall Recurrent UTI NSTEMI (non-ST elevated myocardial infarction) Diabetic gastroparesis Anxiety Bipolar 1 disorder Pancreatitis Gastroparesis Diabetes Surgical History History of cholecystectomy History of tonsillectomy History of ERCP H/O pyloroplasty History of appendectomy H/O: hysterectomy Social History Social History Household Members: Spouse Housing: House Do you presently have visiting nurse or other home services: No Unable to assess alcohol history related to: Refusing to respond Alcohol intake: never Comment: pt refused bed alarm Patient Tobacco Use Status: Former Tobacco user Tobacco use type: Cigarette e-Cigarette/Vaping Use: Former Use Second Hand Smoke Exposure: No Substance Use Type: Marijuana Advance Directives: Yes Advance Directives on File: Yes Advance Directives Date on File: 12/03/22 Do you have a plan to hurt others: No Plan service: No Current occupational status: disabled Cognitive needs: No Hearing needs: No Vision needs: No Physical Exam ED Vital Signs: Vital Signs - 24 hr 07/23/24 11:46 07/23/24 14:07 07/23/24 17:41 Temperature 98.6 F 98.2 F Pulse Rate 138 H 124 H 112 H Respiratory Rate 26 H 16 15 Blood Pressure 150/90 H 169/75 H 133/80 Pulse Oximetry 99 99 98 Oxygen Delivery Method Room Air Room Air Room Air BMI result Body Mass Index 24.0 Medications Administered Discontinued Medications Generic Name Dose Route Start Last Admin Trade Name Nanci PRN Reason Stop Dose Admin Diphenhydramine HCl 25 mg 07/23/24 15:09 07/23/24 16:10 Diphenhydramine Hcl 50 Mg/Ml Vial IVPUSH 07/23/24 15:10 25 mg ONCE ONE Administration Lactated Ringer's 1,000 mls @ 999 mls/hr 07/23/24 12:00 07/23/24 16:10 Lr IV 07/23/24 13:00 Infused .Q1H1M RAISA Infusion Lactated Ringer's 1,000 mls @ 999 mls/hr 07/23/24 16:45 07/23/24 17:16 Lr IV 07/23/24 17:45 999 mls/hr .Q1H1M RAISA Administration Iohexol 100 ml 07/23/24 15:33 07/23/24 15:34 Iohexol 350 Mg/Ml 100 Ml Infus..Btl IV 07/23/24 15:34 85 ml ONCE ONE Administration Metoclopramide HCl 10 mg 07/23/24 15:09 07/23/24 16:11 Metoclopramide Hcl 10 Mg/2 Ml Vial IVPUSH 07/23/24 15:10 10 mg ONCE ONE Administration Medical Decision Making Medical Decision Making [facility] Narrative: The patient is a type 1 diabetic who arrived looking pale and confused. She was somewhat incoherent initially and I thought she was probably encephalopathic and might be in the throes of diabetic ketoacidosis. Attempts at peripheral phlebotomy were difficult and this does laid her evaluation to some degree. Ultimately her Port-A-Cath was accessed and she was given IV fluids and blood tests were sent. The patient was not really able to give me much history. I obtained most of the history from her . He described her as having a great deal of vomiting over the last 2-3 weeks and also confused for about 2 days. Given the patient's apparent altered mental status a head CT was ordered. Given the patient's complaint of abdominal pain and vomiting a CT of the abdomen and pelvis was ordered. Ultimately the patient's labs and imaging studies were not particularly diagnostic. She has a mildly elevated beta hydroxybutyrate but she does not have other signs of acidosis. She does not have an elevated anion gap. She was treated symptomatically with metoclopramide and diphenhydramine. She was given IV fluids. I believe she had 1 episode of vomiting after these medications and she continued to complain of severe abdominal pain and nausea. Given the patient's 's description of how he has been attempting to manage her at home and given her ongoing complaints I do not have any confidence that I will be able to successfully discharge her from the emergency department. Additionally she does not have any nephrology social worker at the moment. I have therefore asked the hospitalist to admit her for hydration and ongoing symptom management. Lab Data 07/23/24 13:55 07/23/24 13:55 Labs: Lab Results 07/23/24 07/23/24 07/23/24 Range/Units 11:49 13:09 13:55 WBC 14.9 H (4.8-10.8) X10*3/uL RBC 4.11 L (4.20-5.50) X10*6/uL Hgb 11.1 L (12.0-16.0) g/dl Hct 33.3 L (37.0-47.0) % MCV 81.0 (80.0-98.0) fL MCH 27.0 (27.0-33.0) pg MCHC 33.3 (31.0-35.0) g/dl RDW 16.0 (11.0-16.0) % Plt Count 563 H (160-400) X10*3/uL MPV 8.7 L (9.4-12.3) fL Immature Gran % (Auto) 0.5 H (0.0-0.4) % Neut % (Auto) 84.3 H (45-73) % Lymph % (Auto) 10.6 L (20-40) % [place] % (Auto) 4.3 (2-11) % Eos % (Auto) 0.0 (0-4) % Baso % (Auto) 0.3 (0-2) % Lymph # (Auto) 1.6 (1.2-4.9) X10*3/uL [place] # (Auto) 0.6 (0.1-1.2) X10*3/uL Eos # (Auto) 0.0 (0.0-0.4) X10*3/uL Baso # (Auto) 0.0 (0.0-0.2) X10*3/uL Abs Immat Gran (auto) 0.08 H (0.00-0.03) X10*3/uL Absolute Neuts (auto) 12.6 H (2.0-8.3) x10*3/uL Absolute Nucleated RBC 0.000 (0.0-0.012) X10*3/uL Nucleated RBC % (auto) 0.0 (0.0-0.2) /100WBC PT 11.9 (10.9-12.4) SEC INR 1.0 (0.9-1.1) VBG pH (7.32-7.43) VBG pCO2 mmHg VBG pO2 mmHg VBG HCO3 (22-26) mmol/L VBG O2 Saturation % VBG Base Excess mmol/L Sodium 141 (135-145) mmol/L Potassium 3.7 (3.3-5.1) mmol/L Chloride 103 (96-108) mmol/L Carbon Dioxide 26 (22-29) mmol/L Anion Gap 16 (12-20) BUN 14 (9-16) mg/dL Creatinine 0.89 (0.5-1.4) mg/dL Estim Creat Clear Calc 66.0 Estimated GFR > 60 POC Glucose 290 H (60-115) mg/dL Random Glucose 283 H (60-115) mg/dL Lactic Acid 1.4 (0.5-2.0) mmol/L Calcium 9.8 D (8.4-10.2) mg/dL Magnesium 1.9 (1.6-2.6) mg/dL Total Bilirubin 0.4 (0.0-1.0) mg/dL Direct Bilirubin 0.2 (0.0-0.5) mg/dL AST 15 (5-31) U/L ALT 12 (0-31) U/L Alkaline Phosphatase 134 H (39-117) U/L Troponin I High Sens 7.0 D (<3.5-17.0) ng/L C-Reactive Protein 0.14 (< or = 0.50) mg/dL Total Protein 8.2 H (6.5-8.0) g/dL Albumin 4.4 (3.5-5.0) g/dL Lipase 5 L (8-78) U/L Beta-Hydroxybutyrate 1.35 H (0.02-0.27) mmol/L Beta HCG, Quant < 2 mIU/mL Ethyl Alcohol < 10 mg/dL Influenza Type A (PCR) NEGATIVE (Negative) Influenza Type B (PCR) NEGATIVE (Negative) RSV RNA Qual (PCR) NEGATIVE (Negative) SARS-CoV-2 RNA (RT-PCR) NEGATIVE (Negative) 07/23/24 Range/Units 14:07 WBC (4.8-10.8) X10*3/uL RBC (4.20-5.50) X10*6/uL Hgb (12.0-16.0) g/dl Hct (37.0-47.0) % MCV (80.0-98.0) fL MCH (27.0-33.0) pg MCHC (31.0-35.0) g/dl RDW (11.0-16.0) % Plt Count (160-400) X10*3/uL MPV (9.4-12.3) fL Immature Gran % (Auto) (0.0-0.4) % Neut % (Auto) (45-73) % Lymph % (Auto) (20-40) % [place] % (Auto) (2-11) % Eos % (Auto) (0-4) % Baso % (Auto) (0-2) % Lymph # (Auto) (1.2-4.9) X10*3/uL [place] # (Auto) (0.1-1.2) X10*3/uL Eos # (Auto) (0.0-0.4) X10*3/uL Baso # (Auto) (0.0-0.2) X10*3/uL Abs Immat Gran (auto) (0.00-0.03) X10*3/uL Absolute Neuts (auto) (2.0-8.3) x10*3/uL Absolute Nucleated RBC (0.0-0.012) X10*3/uL Nucleated RBC % (auto) (0.0-0.2) /100WBC PT (10.9-12.4) SEC INR (0.9-1.1) VBG pH 7.56 H (7.32-7.43) VBG pCO2 29 mmHg VBG pO2 53 mmHg VBG HCO3 26 (22-26) mmol/L VBG O2 Saturation 86.0 % VBG Base Excess 4.6 mmol/L Sodium (135-145) mmol/L Potassium (3.3-5.1) mmol/L Chloride (96-108) mmol/L Carbon Dioxide (22-29) mmol/L Anion Gap (12-20) BUN (9-16) mg/dL Creatinine (0.5-1.4) mg/dL Estim Creat Clear Calc Estimated GFR POC Glucose (60-115) mg/dL Random Glucose (60-115) mg/dL Lactic Acid (0.5-2.0) mmol/L Calcium (8.4-10.2) mg/dL Magnesium (1.6-2.6) mg/dL Total Bilirubin (0.0-1.0) mg/dL Direct Bilirubin (0.0-0.5) mg/dL AST (5-31) U/L ALT (0-31) U/L Alkaline Phosphatase (39-117) U/L Troponin I High Sens (<3.5-17.0) ng/L C-Reactive Protein (< or = 0.50) mg/dL Total Protein (6.5-8.0) g/dL Albumin (3.5-5.0) g/dL Lipase (8-78) U/L Beta-Hydroxybutyrate (0.02-0.27) mmol/L Beta HCG, Quant mIU/mL Ethyl Alcohol mg/dL Influenza Type A (PCR) (Negative) Influenza Type B (PCR) (Negative) RSV RNA Qual (PCR) (Negative) SARS-CoV-2 RNA (RT-PCR) (Negative) Discharge Plan Discharge Clinical Impression: Intractable vomiting, Type 1 diabetes, Abdominal pain Patient Disposition: Admitted As Inpatient Print Language: Bermudian
[2024-07-23 11:55] LABS: Glucose, Whole Blood 290 mg/dL (60-115)
--- NOTE | 2024-07-23 11:58 | PC.NURSE ---
MD to bedside bc pt. with word finding difficulty/word salad. MD to bedside and ordering head CT
--- NOTE | 2024-07-23 11:59 | PC.NURSE ---
Tachy to 141 - on hyperion analyst
--- NOTE | 2024-07-23 13:10 | MHC.EDTECH ---
This pct attempted to draw labs but was only able to obtain some blood work not all. RN Aware
--- NOTE | 2024-07-23 13:31 | PC.NURSE ---
Dennis unable to draw pt.
[2024-07-23 13:57] LABS: Influenza A PCR NEGATIVE (Negative); Influenza B PCR NEGATIVE (Negative); Resp Syncy Virus RNA Qual PCR NEGATIVE (Negative); SARS COV2 PCR INHOUSE NEGATIVE (Negative)
--- NOTE | 2024-07-23 14:00 | PC.NURSE ---
Pt.'s port accessed to R chest wall per verbal orders of Ramya Roman MD. Good blood return. Labs collected off of port and sent to lab as ordered.
[2024-07-23] MEDS: Lactated Ringers 1,000 ML 999 ML IV ×2 (14:07→17:16)
[2024-07-23 14:08] LABS: MANUAL DIFF FLAG NO
[2024-07-23 14:13] LABS: Basophils Percent Auto 0.3 % (0-2); Hematocrit 33.3 % (37.0-47.0); Hemoglobin 11.1 g/dl (12.0-16.0); Imm Gran Abs Auto 0.08 X10*3/uL (0.00-0.03); Imm Gran Pct Auto 0.5 % (0.0-0.4); Lymphocytes Absolute Auto 1.6 X10*3/uL (1.2-4.9); Lymphocytes Percent Auto 10.6 % (20-40); Mean Corpuscular HGB Conc 33.3 g/dl (31.0-35.0); Mean Platelet Volume 8.7 fL (9.4-12.3); Monocytes Absolute Auto 0.6 X10*3/uL (0.1-1.2); Monocytes Percent Auto 4.3 % (2-11); Neutrophils Absolute Auto 12.6 x10*3/uL (2.0-8.3); Neutrophils Percent Auto 84.3 % (45-73); Platelet Count 563 X10*3/uL (160-400); Red Blood Count 4.11 X10*6/uL (4.20-5.50); White Blood Count 14.9 X10*3/uL (4.8-10.8)
[2024-07-23 14:16] LABS: Venous Blood Gas Refer to POC result
[2024-07-23 14:16] LABS: VBG Base Excess 4.6 mmol/L; VBG HCO3 26 mmol/L (22-26); VBG pCO2 29 mmHg; VBG pH 7.56 (7.32-7.43); VBG pO2 53 mmHg
[2024-07-23 14:18] LABS: Prothrombin Time 11.9 SEC (10.9-12.4)
[2024-07-23 14:25] LABS: Lactic Acid 1.4 mmol/L (0.5-2.0)
[2024-07-23 14:33] LABS: Ethanol < 10 mg/dL
[2024-07-23 14:35] LABS: HCG Quantitative < 2 mIU/mL
[2024-07-23 14:38] LABS: Beta-Hydroxybutyrate 1.35 mmol/L (0.02-0.27)
[2024-07-23 14:39] LABS: Alanine Aminotransferase 12 U/L (0-31); Albumin Level 4.4 g/dL (3.5-5.0); Alkaline Phosphatase 134 U/L (39-117); Anion Gap 16 (12-20); Aspartate Amino Transferase 15 U/L (5-31); Bilirubin Direct 0.2 mg/dL (0.0-0.5); Bilirubin Total 0.4 mg/dL (0.0-1.0); Blood Urea Nitrogen 14 mg/dL (9-16); C Reactive Protein 0.14 mg/dL (< or = 0.50); Calcium 9.8 mg/dL (8.4-10.2); Carbon Dioxide 26 mmol/L (22-29); Chloride 103 mmol/L (96-108); Estimated Glomerular Filt Rate > 60; Glucose Random 283 mg/dL (60-115); Lipase 5 U/L (8-78); Magnesium 1.9 mg/dL (1.6-2.6); Potassium 3.7 mmol/L (3.3-5.1); Sodium 141 mmol/L (135-145); Total Protein 8.2 g/dL (6.5-8.0)
[2024-07-23] MEDS: iohexoL 350 MG/ML 100 ML INFUS..BTL IV (15:34)
[2024-07-23] MEDS: diphenhydrAMINE HCL 50 MG/ML VIAL 25 MG IVPUSH (16:10)
[2024-07-23] MEDS: Metoclopramide HCl 10 MG/2 ML VIAL IVPUSH (16:11)
--- NOTE | 2024-07-23 17:42 | MHC.EDTECH ---
This Tech was uto 2nd set of blood cultures, attempted twice. RN aware
--- NOTE | 2024-07-23 19:47 | MHC.EDTECH ---
Patient blood sugar check ,it was 58 ,RN Mellisa aware ,Patient drank 3 cups of glenis edgard with sugar .
--- NOTE | 2024-07-23 19:59 | MHC.EDTECH ---
After Patient drank 5 carton of [place] juice ,Patient blood sugar was re check it was 56 ,RN Mellisa aware ,Patient rank 240 ml more orange juice .
[2024-07-23] MEDS: Dextrose 10 % 250 ML 750 ML IV (20:04)
--- NOTE | 2024-07-23 20:17 | MHC.EDTECH ---
Patient blood sugar was re check for after dextrose and orange juice given ,Patient blood sugar was 166 ,RN Mellisa aware .
--- NOTE | 2024-07-23 20:28 | PC.NURSE ---
This RN was informed by Markel smog technician that patient noted to be diaphoretic, POC checked and noted to be 58. Patient was given orange juice x4 with 3 sugar packs with no improvement, POC 56. Dr. Maynard informed, patient given D10 in 250 mL, repeat POC 166.
[2024-07-23 20:33] LABS: Glucose, Whole Blood 166 mg/dL (60-115)
[2024-07-23 20:33] LABS: Glucose, Whole Blood 58 mg/dL (60-115)
[2024-07-23 20:33] LABS: Glucose, Whole Blood 56 mg/dL (60-115)
[2024-07-23] MEDS: Famotidine/PF 20 MG/2 ML VIAL IVPUSH (20:38)
--- NOTE | 2024-07-23 20:45 | PHA.MEDREC ---
Addendum entered by Adryan Dhaliwal [facility] 07/24/24 08:26: spoke with patient at bedside to confirm she is no longer on Macrobid, treatment completed. Original Note: Pharmacy Consult ? Medication Reconciliation Pharmacy has completed the medication reconciliation, spoke to patient at bedside who confirmed all medications.
--- NOTE | 2024-07-23 21:01 | MHC.EDTECH ---
Patient was assisted unto bed side commode ,Patient had moderate amount of loose stool ,care given ,bedding change ,clean gown given ,Patient back in bed ,vitals taken ,blood sugar check ,RN Mellisa aware of result of 372 ,Warm blanket given and fresh ice water ,Vitals taken ,Call ulloa within Pt reach .
--- NOTE | 2024-07-23 21:23 | MHC.EDTECH ---
Patient was assisted to bedside commode ,had moderate loose bowel movement,Care given ,stool sample collected and sent to lab .Patient back in bed .
[2024-07-23 22:00] LABS: Glucose, Whole Blood 372 mg/dL (60-115)
--- NOTE | 2024-07-23 22:21 | PC.NURSE ---
Patient is alert and oriented x3, VSS. Patient reports pain in upper abdomen 6/10 at present, at tolerable level. Patient complaints of mild nausea, no vomiting, no further diarrhea. Patient resting in stretcher bed, call ulloa in reach, plan of care ongoing.
[2024-07-24] VITALS (16 sets, daily range): BP systolic 129–182; BP diastolic 60–97; PULSE 93–130; RESP 14–20; TEMP 36.2–37.1; O2SAT 9–99
--- NOTE | 2024-07-24 02:40 | PM.IMHP ---
History of Present Illness Date of Service: 07/24/24 Attending physician on admission: Irwin Bishop Chief Complaint: Abdominal pain 2:03 AM - Contacted by ED RN Anabell Joseph to let me know about the existence of this admission. 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 She also was complaining of nausea and vomiting and diarrhea. She smokes marijuana. Did not report illicit drug use. In the ED, she was found to have mild tachycardia. Last blood pressure 182/97 and currently seems to be very uncomfortable due to pain. There is no fever reported. She was initially found to have a glucose of 56 -her own insulin pump was discontinued. Last blood glucose reported is 372 (last night at 9 PM). There is leukocytosis of 14.9. Hemoglobin is 11.1 and platelets 563. Venous pH is 7.56. There are no electrolyte imbalances or lactic acidosis. Beta hydroxybutyrate is 1.35 and test is negative. Viral testing for COVID 19, RSV and influenza is negative. CXR is negative. Abdominal pelvis CT scan showed moderate constipation. Head CT scan showed no acute intracranial abnormalities. ED tx: LR 2 L bolus, Benadryl 25 mg IV, Reglan 10 mg IV, famotidine 20 mg IV Review of Systems Review of Systems: All 12 systems were reviewed and normal except as noted in HPI. [facility] Medical History (Updated 07/24/24 @ 03:08 by Irwin Bishop MD) Diabetic gastroparesis Acute UTI Diabetes mellitus type 1 Chronic hypertension Intractable cyclical vomiting with nausea Diabetes mellitus with gastroparesis Diabetic gastroparesis Herpes zoster Status post fall Recurrent UTI NSTEMI (non-ST elevated myocardial infarction) Diabetic gastroparesis Anxiety Bipolar 1 disorder Pancreatitis Gastroparesis Diabetes Surgical History History of cholecystectomy History of tonsillectomy History of ERCP H/O pyloroplasty History of appendectomy H/O: hysterectomy Social History Household Members: Spouse Housing: House Do you presently have visiting nurse or other home services: No Unable to assess alcohol history related to: Refusing to respond Alcohol intake: never Comment: pt refused bed alarm Patient Tobacco Use Status: Former Tobacco user Tobacco use type: Cigarette Smoked in Last 30 Days: No e-Cigarette/Vaping Use: Former Use Second Hand Smoke Exposure: No Use of substances other than those prescribed or required for medical reasons: No Substance Use Type: Marijuana Advance Directives: Yes Advance Directives on File: Yes Advance Directives Date on File: 12/03/22 Do you have a plan to hurt others: No Plan Patient : No service: No Current occupational status: disabled Cognitive needs: No Hearing needs: No Vision needs: No Meds Allergies Allergy/AdvReac Type Severity Reaction Status Date / Time morphine [MORPHINE] Allergy Intermediate RASH, Verified 07/23/24 11:51 hives, hives mushroom Allergy Intermediate HIVES/RASH Verified 07/23/24 11:51 Sulfa (Sulfonamide Allergy Mild Rash Verified 07/23/24 11:51 Antibiotics) mushroom Allergy Unknown throat Uncoded 07/23/24 11:51 closes up/difficult breathing mushrooms Allergy Unknown anaphylaxis Uncoded 07/23/24 11:51 Active Medications: Current Medications Enoxaparin Sodium (Enoxaparin Sodium 40 Mg/0.4 Ml Syringe) 40 mg SUBCUT Q24H RAISA Glucose (Glucose Gel 15 Gm Gel..Gram.) 15 gm PO Q15M PRN; Protocol PRN Reason: per Hypoglycemia Standing Ord. Hydromorphone HCl (Hydromorphone Hcl 1 Mg/Ml Syringe) 1 mg IVPUSH Q3H PRN; Protocol PRN Reason: Pain, Severe (Pain Scale 7-10) Dextrose (D10) 250 mls @ 750 mls/hr IV Q15M PRN PRN Reason: per Hypoglycemia Standing Ord. Last Infusion: 07/23/24 20:30 Dose: Infused Sodium Chloride (Ns) 1,000 mls @ 100 mls/hr IVCONT .Q10H RAISA Dextrose (D10) 250 mls @ 750 mls/hr IV Q15M PRN; Protocol PRN Reason: per Hypoglycemia Standing Ord. Insulin Human Lispro (Insulin Lispro 100 Unit/Ml 3 Ml Vial) 0 unit SUBCUT Q6H RAISA; Protocol Metoclopramide HCl (Metoclopramide Hcl 10 Mg/2 Ml Vial) 10 mg IVPUSH TID [facility] Sodium Chloride (0.9 % Sodium Chloride Flush 3 Ml Syringe) 3 ml IVFLUSH QSHIFT [facility] Home Medications ?Medication ?Instructions ?Recorded ?Confirmed ?Last Taken ?Type lamotrigine 200 mg tablet 200 mg PO BID 05/11/20 07/23/24 07/23/24 History lorazepam 1 mg tablet 1 mg PO TID PRN Anxiety 05/11/20 07/23/24 07/23/24 History zolpidem 10 mg tablet 10 mg PO BEDTIME 05/11/20 07/23/24 07/23/24 History risperidone 2 mg tablet 2 mg PO BID 09/13/21 07/23/24 07/23/24 History omeprazole 20 mg capsule,delayed 20 mg PO BID@0630,1630 02/24/24 07/23/24 07/23/24 History release insulin aspart U-100 100 unit/mL 0 - 100 unit subcut DAILY 07/23/24 07/23/24 07/23/24 History subcutaneous solution (Novolog U-100 Insulin aspart) Physical Exam Vital Signs and Narrative: Vital Signs: Last Vital Signs Temp 98.4 F 07/24/24 02:00 Pulse 120 H 07/24/24 02:00 Resp 20 07/24/24 02:00 BP 182/97 H 07/24/24 02:00 Pulse Ox 9 L 07/24/24 02:00 O2 Del Method Room Air 07/24/24 02:00 BMI result Body Mass Index 24.0 Constitutional - Awake and Alert, looks in acute distress due to severe abdominal pain. Cooperative. HEENT - PERRL, EOMI Heart - Tachycardic. Regular rhythm. Lungs - Normal lung expansion, Normal respiratory effort, No respiratory distress, CTA bilaterally Abdomen - Nondistended. Epigastric tenderness with guarding. Increased bowel sounds. Extremities - no calf tenderness bilaterally, no swelling Musculoskeletal - Normal inspection, normal ROM Skin - Warm/Dry Neurological - Alert & oriented x3. Psychological - Appropriate affect Results Labs 07/23/24 13:55 07/23/24 13:55 Labs: Laboratory Results - last 24 hr 07/23/24 07/23/24 07/23/24 11:49 13:09 13:55 MCV 81.0 MCH 27.0 MCHC 33.3 RDW 16.0 Plt Count 563 H MPV 8.7 L Immature Gran % (Auto) 0.5 H Neut % (Auto) 84.3 H Lymph % (Auto) 10.6 L [place] % (Auto) 4.3 Eos % (Auto) 0.0 Baso % (Auto) 0.3 Lymph # (Auto) 1.6 [place] # (Auto) 0.6 Eos # (Auto) 0.0 Baso # (Auto) 0.0 Abs Immat Gran (auto) 0.08 H Absolute Neuts (auto) 12.6 H Absolute Nucleated RBC 0.000 Nucleated RBC % (auto) 0.0 PT 11.9 INR 1.0 VBG pH VBG pCO2 VBG pO2 VBG HCO3 VBG O2 Saturation VBG Base Excess Anion Gap 16 Estim Creat Clear Calc 66.0 Estimated GFR > 60 POC Glucose 290 H Random Glucose 283 H Lactic Acid 1.4 Calcium 9.8 D Magnesium 1.9 Total Bilirubin 0.4 Direct Bilirubin 0.2 AST 15 ALT 12 Alkaline Phosphatase 134 H Troponin I High Sens 7.0 D C-Reactive Protein 0.14 Total Protein 8.2 H Albumin 4.4 Lipase 5 L Beta-Hydroxybutyrate 1.35 H Beta HCG, Quant < 2 Ethyl Alcohol < 10 Influenza Type A (PCR) NEGATIVE Influenza Type B (PCR) NEGATIVE RSV RNA Qual (PCR) NEGATIVE SARS-CoV-2 RNA (RT-PCR) NEGATIVE 07/23/24 07/23/24 07/23/24 14:07 19:45 19:57 MCV MCH MCHC RDW Plt Count MPV Immature Gran % (Auto) Neut % (Auto) Lymph % (Auto) [place] % (Auto) Eos % (Auto) Baso % (Auto) Lymph # (Auto) [place] # (Auto) Eos # (Auto) Baso # (Auto) Abs Immat Gran (auto) Absolute Neuts (auto) Absolute Nucleated RBC Nucleated RBC % (auto) PT INR VBG pH 7.56 H VBG pCO2 29 VBG pO2 53 VBG HCO3 26 VBG O2 Saturation 86.0 VBG Base Excess 4.6 Anion Gap Estim Creat Clear Calc Estimated GFR POC Glucose 58 L* 56 L* Random Glucose Lactic Acid Calcium Magnesium Total Bilirubin Direct Bilirubin AST ALT Alkaline Phosphatase Troponin I High Sens C-Reactive Protein Total Protein Albumin Lipase Beta-Hydroxybutyrate Beta HCG, Quant Ethyl Alcohol Influenza Type A (PCR) Influenza Type B (PCR) RSV RNA Qual (PCR) SARS-CoV-2 RNA (RT-PCR) 07/23/24 07/23/24 20:16 21:00 MCV MCH MCHC RDW Plt Count MPV Immature Gran % (Auto) Neut % (Auto) Lymph % (Auto) [place] % (Auto) Eos % (Auto) Baso % (Auto) Lymph # (Auto) [place] # (Auto) Eos # (Auto) Baso # (Auto) Abs Immat Gran (auto) Absolute Neuts (auto) Absolute Nucleated RBC Nucleated RBC % (auto) PT INR VBG pH VBG pCO2 VBG pO2 VBG HCO3 VBG O2 Saturation VBG Base Excess Anion Gap Estim Creat Clear Calc Estimated GFR POC Glucose 166 H 372 H* Random Glucose Lactic Acid Calcium Magnesium Total Bilirubin Direct Bilirubin AST ALT Alkaline Phosphatase Troponin I High Sens C-Reactive Protein Total Protein Albumin Lipase Beta-Hydroxybutyrate Beta HCG, Quant Ethyl Alcohol Influenza Type A (PCR) Influenza Type B (PCR) RSV RNA Qual (PCR) SARS-CoV-2 RNA (RT-PCR) Imaging Radiologist's Impressions: Impressions Chest X-Ray 07/23/24 12:20 IMPRESSION: No active disease. Electronically signed by: Gumaro Powell MD 07/23/2024 12:33 PM EST RP Abdomen/Pelvis CT 07/23/24 15:09 IMPRESSION: No acute intra-abdominal process seen Moderate constipation. Previously visualized bilateral renal calcifications are not well-visualized on this contrast-enhanced CT Fleischner guidelines were followed. Electronically signed by: Jack Santos MD 07/23/2024 05:37 PM EST RP Head CT 07/23/24 15:20 IMPRESSION: No acute intracranial abnormalities. Electronically signed by: Gumaro Powell MD 07/23/2024 04:30 PM EST RP Assessment and Plan (1) Abdominal pain: Qualifiers: Abdominal location: epigastric Qualified Code(s): R10.13 - Epigastric pain Status: Acute (2) Intractable vomiting: Status: Acute Plan 2:03 AM - Contacted by ED MEREDITH Joseph to let me know about the existence of this admission. Yumiko Sena is a 48 y/o woman with PMHx significant for type type 1 DM admitted with: Gastroparesis --> intractable abdominal pain and vomiting. Admit to hospitalist service. NPO. Start IV fluids. Check blood glucose now and every 6 hours while NPO. Start treatment with Lantus now and insulin sliding scale (her own insulin pump was discontinued by ED as she had an event of hypoglycemia -pt unable to restart her own pump). Pain control with Dilaudid IV. Reglan 10 mg IV t.i.d. Recheck CBC, CMP and lipase stat. Chronic anemia. Continue to monitor H&H. DVT prophylaxis: Lovenox Code status: Full Patient will need hospitalization for at least 2 midnight for gastroparesis treatment with antiemetic therapy, pain control with IV analgesia, IV fluids and glucose control with insulin. Quality Stroke Does the patient have a stroke diagnosis?: No VTE Prior VTE?: No VTE Risk Level:: Medical - moderate - high VTE Device Contraindication: Treatment Not Indicated VTE Drug Contraindication: N/A - Med Ordered
[2024-07-24 02:50] LABS: Glucose, Whole Blood 333 mg/dL (60-115)
[2024-07-24] MEDS: Insulin Regular, Human 100 UNIT/ML 10 ML VIAL IVPUSH (03:01)
[2024-07-24] MEDS: HYDROmorphone HCl 1 MG/ML SYRINGE IVPUSH ×6 (03:05→22:18)
[2024-07-24] MEDS: Metoclopramide HCl 10 MG/2 ML VIAL IVPUSH (03:06)
[2024-07-24 03:07] LABS: MANUAL DIFF FLAG NO
[2024-07-24] MEDS: Insulin Glargine,Hum.rec.anlog 100 UNIT/ML 10 ML VIAL 20 UNIT SUBCUT (03:08)
[2024-07-24 03:10] LABS: Basophils Percent Auto 0.2 % (0-2); Hematocrit 33.7 % (37.0-47.0); Hemoglobin 10.9 g/dl (12.0-16.0); Imm Gran Abs Auto 0.08 X10*3/uL (0.00-0.03); Imm Gran Pct Auto 0.5 % (0.0-0.4); Lymphocytes Absolute Auto 2.6 X10*3/uL (1.2-4.9); Lymphocytes Percent Auto 15.5 % (20-40); Mean Corpuscular HGB Conc 32.3 g/dl (31.0-35.0); Mean Corpuscular Hemoglobin 26.6 pg (27.0-33.0); Mean Corpuscular Volume 82.2 fL (80.0-98.0); Mean Platelet Volume 8.6 fL (9.4-12.3); Monocytes Absolute Auto 1.1 X10*3/uL (0.1-1.2); Monocytes Percent Auto 6.3 % (2-11); Neutrophils Absolute Auto 13.2 x10*3/uL (2.0-8.3); Neutrophils Percent Auto 77.5 % (45-73); Platelet Count 532 X10*3/uL (160-400); Red Cell Distribution Width 16.4 % (11.0-16.0); White Blood Count 17.1 X10*3/uL (4.8-10.8)
[2024-07-24] MEDS: 0.9 % Sodium Chloride 1,000 ML 100 ML IVCONT ×3 (03:13→22:19)
[2024-07-24 03:22] LABS: Anion Gap 17 (12-20); Beta-Hydroxybutyrate 1.72 mmol/L (0.02-0.27); Blood Urea Nitrogen 14 mg/dL (9-16); Calcium 9.8 mg/dL (8.4-10.2); Carbon Dioxide 23 mmol/L (22-29); Chloride 105 mmol/L (96-108); Creatinine Clr Calc Pharmacy 60.5; Estimated Glomerular Filt Rate > 60; Glucose Random 327 mg/dL (60-115); Lipase 5 U/L (8-78); Potassium 3.9 mmol/L (3.3-5.1); Sodium 141 mmol/L (135-145)
[2024-07-24 06:11] LABS: Glucose, Whole Blood 318 mg/dL (60-115)
[2024-07-24] MEDS: Insulin Lispro 100 UNIT/ML 3 ML VIAL SUBCUT ×2 (06:13→12:35)
--- NOTE | 2024-07-24 06:18 | PC.NURSE ---
Patient medicated per MAR with Dilaudid 1 mg IV push for 9/10 abdominal pain. POC 318, patient received Lispro 8 units per sliding scale.
[2024-07-24 08:24] LABS: CDiff Gene PCR NEGATIVE (Negative)
[2024-07-24 08:35] LABS: Appearance Urine Clear; Color Urine Yellow; Glucose Urine UA >=1000 mg/dL (Negative); Leukocyte Esterase Urine Negative (Negative); Nitrite Urine Negative (Negative); PH 5.5 (5.0-9.0); Specific Gravity - Urine 1.025 (1.005-1.025); UMIC TRIGGER UACC YES; Urine Blood Moderate (2+) (Negative); Urine Ketones 40 mg/dL (Negative); Urine Protein 30 (1+) mg/dL (Neg-Trace)
[2024-07-24 08:38] LABS: Bacteria Urine None Seen (None Seen); Hyaline Casts Urine 0-2 /LPF (0-2); WBC Urine 0-5 /HPF (0-5)
[2024-07-24 08:46] LABS: Amphetamine Screen Urine Not Detected (Not Detect); Barbiturates, Urine Not Detected (Not Detect); Benzodiazepines Screen Urine Not Detected (Not Detect); Buprenorphine Scr Not Detected (Not Detect); Cannabinoid Screen Urine POSITIVE (Not Detect); Cocaine Screen Urine Not Detected (Not Detect); Fentanyl, urine Not Detected (Not Detect); Methadone Screen, Urine Not Detected (Not Detect); Opiate Screen Urine Not Detected (Not Detect); Oxycodone Screen Urine Not Detected (Not Detect); Phencyclidine Screen Urine Not Detected (Not Detect)
[2024-07-24] MEDS: Enoxaparin Sodium 40 MG/0.4 ML SYRINGE SUBCUT (08:57)
[2024-07-24] MEDS: Metoclopramide HCl 10 MG/2 ML VIAL 5 MG IVPUSH ×3 (08:58→22:18)
--- NOTE | 2024-07-24 09:02 | PC.NURSE ---
Pt refused any PO meds, reported i cannot tolerate them, maybe later , refusing PO meds right now.
[2024-07-24] MEDS: Midodrine HCl 5 MG TABLET PO (10:31)
[2024-07-24] MEDS: risperiDONE 2 MG TABLET PO ×2 (10:31→22:18)
[2024-07-24] MEDS: Metoprolol Tartrate 25 MG TABLET PO ×2 (10:31→22:18)
--- NOTE | 2024-07-24 10:31 | PM.EVENT ---
Event Note Date of Service: 07/24/24 Event Note: seen and evaluated feels little better mild nausea not tolerating PO continue IV fluids and anti-emetic advance diet as tolerated Time Spent With Patient Time: Total time managing care of this patient today ____ minutes.
[2024-07-24] MEDS: Bethanechol Chloride 25 MG TABLET PO ×3 (10:32→22:18)
[2024-07-24] MEDS: lamoTRIgine 100 MG TABLET 200 MG PO ×2 (10:34→22:18)
[2024-07-24 11:31] LABS: Adenovirus F 40/41 Not Detected (Not Detect.); Astrovirus Not Detected (Not Detect.); Campylobacter Not Detected (Not Detect.); Cryptosporidium Not Detected (Not Detect.); Cyclospora cayetanensis Not Detected (Not Detect.); E. coli EAEC Not Detected (Not Detect.); E. coli EPEC Not Detected (Not Detect.); E. coli ETEC Not Detected (Not Detect.); E. coli STEC Not Detected (Not Detect.); Entamoeba histolytica Not Detected (Not Detect.); Giardia lamblia Not Detected (Not Detect.); Norovirus GI/GII Not Detected (Not Detect.); Plesiomonas shigelloides Not Detected (Not Detect.); Rotavirus A Not Detected (Not Detect.); Salmonella Not Detected (Not Detect.); Sapovirus Not Detected (Not Detect.); Shigella sp./EIEC Not Detected (Not Detect.); Vibrio Not Detected (Not Detect.); Vibrio Cholerae Not Detected (Not Detect.); Yersinia enterocolitica Not Detected (Not Detect.)
[2024-07-24 12:25] LABS: Glucose, Whole Blood 238 mg/dL (60-115)
[2024-07-24] MEDS: Omeprazole 20 MG CAPSULE.DR PO (15:31)
[2024-07-24 17:27] LABS: Glucose, Whole Blood 168 mg/dL (60-115)
[2024-07-24] MEDS: Zolpidem Tartrate 5 MG TABLET PO (22:18)
[2024-07-25] LABS: Glucose, Whole Blood 314 mg/dL (60-115)
[2024-07-25] MEDS: Insulin Lispro 100 UNIT/ML 3 ML VIAL SUBCUT ×4 (00:12→22:11)
[2024-07-25 03:28] VITALS: BP 106/53; PULSE 83; RESP 18; TEMP 36.7; O2SAT 95
[2024-07-25 05:27] LABS: Glucose, Whole Blood 183 mg/dL (60-115)
[2024-07-25] MEDS: Omeprazole 20 MG CAPSULE.DR PO ×2 (05:56→15:14)
[2024-07-25 06:26] LABS: MANUAL DIFF FLAG NO
[2024-07-25 06:29] LABS: Basophils Absolute Auto 0.1 X10*3/uL (0.0-0.2); Basophils Percent Auto 0.4 % (0-2); Eosinophils Percent Auto 0.2 % (0-4); Hematocrit 31.2 % (37.0-47.0); Hemoglobin 9.9 g/dl (12.0-16.0); Imm Gran Abs Auto 0.05 X10*3/uL (0.00-0.03); Imm Gran Pct Auto 0.4 % (0.0-0.4); Lymphocytes Absolute Auto 3.8 X10*3/uL (1.2-4.9); Lymphocytes Percent Auto 27.7 % (20-40); Mean Corpuscular HGB Conc 31.7 g/dl (31.0-35.0); Mean Corpuscular Hemoglobin 26.3 pg (27.0-33.0); Mean Platelet Volume 8.5 fL (9.4-12.3); Monocytes Absolute Auto 0.9 X10*3/uL (0.1-1.2); Monocytes Percent Auto 6.5 % (2-11); Neutrophils Percent Auto 64.8 % (45-73); Platelet Count 445 X10*3/uL (160-400); Red Blood Count 3.76 X10*6/uL (4.20-5.50); Red Cell Distribution Width 15.6 % (11.0-16.0); White Blood Count 13.8 X10*3/uL (4.8-10.8)
[2024-07-25 06:42] LABS: Anion Gap 13 (12-20); Blood Urea Nitrogen 12 mg/dL (9-16); Calcium 8.8 mg/dL (8.4-10.2); Carbon Dioxide 25 mmol/L (22-29); Chloride 102 mmol/L (96-108); Creatinine Clr Calc Pharmacy 75.3; Estimated Glomerular Filt Rate > 60; Glucose Random 208 mg/dL (60-115); Potassium 3.9 mmol/L (3.3-5.1); Sodium 136 mmol/L (135-145)
[2024-07-25 07:20] VITALS: BP 134/81; PULSE 90; RESP 15; TEMP 37.1; O2SAT 98
[2024-07-25] MEDS: Metoclopramide HCl 10 MG/2 ML VIAL 5 MG IVPUSH ×3 (07:39→20:17)
[2024-07-25] MEDS: 0.9 % Sodium Chloride Flush 3 ML SYRINGE IVFLUSH ×2 (07:40→15:16)
[2024-07-25] MEDS: risperiDONE 2 MG TABLET PO ×2 (07:41→20:17)
[2024-07-25] MEDS: Bethanechol Chloride 25 MG TABLET PO ×3 (07:41→20:18)
[2024-07-25] MEDS: Midodrine HCl 5 MG TABLET PO (07:41)
[2024-07-25] MEDS: Metoprolol Tartrate 25 MG TABLET PO ×2 (07:41→20:17)
[2024-07-25] MEDS: Enoxaparin Sodium 40 MG/0.4 ML SYRINGE SUBCUT (07:42)
[2024-07-25] MEDS: lamoTRIgine 100 MG TABLET 200 MG PO ×2 (07:42→20:17)
[2024-07-25] MEDS: HYDROmorphone HCl 1 MG/ML SYRINGE IVPUSH ×6 (07:43→23:57)
[2024-07-25] MEDS: 0.9 % Sodium Chloride 1,000 ML 100 ML IVCONT ×2 (07:56→16:47)
--- NOTE | 2024-07-25 11:01 | P.PNIM_ITS ---
Subjective Subjective Date of Service: 07/25/24 Interval History: seen and evaluated feels better reporting mild nausea No vomiting starting diet Review of Systems All 12 systems were reviewed and normal except as noted in HPI. Physical Exam 2 Vital Signs: Vital Signs: Last Vital Signs Temp 98.7 F 07/25/24 07:20 Pulse 90 07/25/24 07:20 Resp 15 07/25/24 07:20 BP 134/81 07/25/24 07:20 Pulse Ox 98 07/25/24 07:20 O2 Del Method Room Air 07/25/24 07:20 BMI result Body Mass Index 24.0 Const: Other: Constitutional : Awake, interactive, not in distress Neck : Normal inspection, Supple Cardiovascular : RRR, no JVP, no lower extremity edema Respiratory : good bilateral air entry, no crackles, wheezes or rhonchi Gastrointestinal: soft, lax, Normal bowel sounds, Non tender Skin : Warm, Dry Neurological : Alert & oriented x3, No focal deficit Objective Data Active Medications Bethanechol Chloride (Bethanechol Chloride 25 Mg Tablet) 25 mg PO TID [facility] Last Admin: 07/25/24 07:41 Dose: 25 mg Documented By: CARMELA Enoxaparin Sodium (Enoxaparin Sodium 40 Mg/0.4 Ml Syringe) 40 mg SUBCUT Q24H [facility] Last Admin: 07/25/24 07:42 Dose: 40 mg Documented By: CARMELA Glucose (Glucose Gel 15 Gm Gel..Gram.) 15 gm PO Q15M PRN; Protocol PRN Reason: per Hypoglycemia Standing Ord. Hydromorphone HCl (Hydromorphone Hcl 1 Mg/Ml Syringe) 1 mg IVPUSH Q3H PRN; Protocol PRN Reason: Pain, Severe (Pain Scale 7-10) Last Admin: 07/25/24 10:47 Dose: 1 mg Documented By: CARMELA Sodium Chloride (Ns) 1,000 mls @ 100 mls/hr IVCONT .Q10H [facility] Last Admin: 07/25/24 07:56 Dose: 100 mls/hr Documented By: CARMELA Dextrose (D10) 250 mls @ 750 mls/hr IV Q15M PRN; Protocol PRN Reason: per Hypoglycemia Standing Ord. Insulin Human Lispro (Insulin Lispro 100 Unit/Ml 3 Ml Vial) 0 unit SUBCUT Q6H [facility]; Protocol Last Admin: 07/25/24 05:57 Dose: Not Given Documented By: LUANN Non-Admin Reason: NPO Lamotrigine (Lamotrigine 100 Mg Tablet) 200 mg PO BID [facility] Last Admin: 07/25/24 07:42 Dose: 200 mg Documented By: CARMELA Lorazepam (Lorazepam 1 Mg Tablet) 1 mg PO TID PRN PRN Reason: Anxiety Metoclopramide HCl (Metoclopramide Hcl 10 Mg/2 Ml Vial) 5 mg IVPUSH TID [facility] Last Admin: 07/25/24 07:39 Dose: 5 mg Documented By: CARMELA Metoprolol Tartrate (Metoprolol Tartrate 25 Mg Tablet) 25 mg PO BID [facility]; Protocol Last Admin: 07/25/24 07:41 Dose: 25 mg Documented By: CARMELA Midodrine (Midodrine Hcl 5 Mg Tablet) 5 mg PO DAILY [facility] Last Admin: 07/25/24 07:41 Dose: 5 mg Documented By: CARMELA Omeprazole (Omeprazole 20 Mg Capsule.Dr) 20 mg PO BID@0630,1630 [facility] Last Admin: 07/25/24 05:56 Dose: 20 mg Documented By: LUANN Risperidone (Risperidone 2 Mg Tablet) 2 mg PO BID [facility] Last Admin: 07/25/24 07:41 Dose: 2 mg Documented By: CARMELA Sodium Chloride (0.9 % Sodium Chloride Flush 3 Ml Syringe) 3 ml IVFLUSH QSHIFT [facility] Last Admin: 07/25/24 07:40 Dose: 3 ml Documented By: CARMELA Zolpidem Tartrate (Zolpidem Tartrate 5 Mg Tablet) 5 mg PO BEDTIME [facility] Last Admin: 07/24/24 22:18 Dose: 5 mg Documented By: LUANN Labs 07/25/24 06:03 07/25/24 06:03 Labs: Laboratory Results - last 24 hr 07/24/24 07/24/24 07/24/24 06:21 12:21 17:23 MCV MCH MCHC RDW Plt Count MPV Immature Gran % (Auto) Neut % (Auto) Lymph % (Auto) [place] % (Auto) Eos % (Auto) Baso % (Auto) Lymph # (Auto) [place] # (Auto) Eos # (Auto) Baso # (Auto) Abs Immat Gran (auto) Absolute Neuts (auto) Absolute Nucleated RBC Nucleated RBC % (auto) Anion Gap Estim Creat Clear Calc Estimated GFR POC Glucose 238 H 168 H Random Glucose Calcium Stl C. cayetanensis PCR Not Detected Stool Rotavirus A PCR Not Detected Stl Adenov F 40/ PCR Not Detected Stool Astrovirus (PCR) Not Detected Stool Campylobacter PCR Not Detected Stool Cryptosporidium PCR Not Detected Stl Sh Tox Pr E STEC PCR Not Detected Stool E coli O157 PCR Not applicable Stl Enterotoxigenic E PCR Not Detected Stool EPEC (PCR) Not Detected Stool EAEC (PCR) Not Detected Stl E. histolytica PCR Not Detected Stool Giardia Lamblia PCR Not Detected Stl P. shigelloides PCR Not Detected Stool Salmonella PCR Not Detected Stool Sapovirus (PCR) Not Detected Stl Shigella/EIEC PCR Not Detected St Y.enterocolitica PCR Not Detected Stool Vibrio (PCR) Not Detected Stl Vibrio cholerae PCR Not Detected Stl Norovirus GI/GII PCR Not Detected 07/24/24 07/25/24 07/25/24 23:54 05:22 06:03 MCV 83.0 MCH 26.3 L MCHC 31.7 RDW 15.6 Plt Count 445 H MPV 8.5 L Immature Gran % (Auto) 0.4 Neut % (Auto) 64.8 Lymph % (Auto) 27.7 [place] % (Auto) 6.5 Eos % (Auto) 0.2 Baso % (Auto) 0.4 Lymph # (Auto) 3.8 [place] # (Auto) 0.9 Eos # (Auto) 0.0 Baso # (Auto) 0.1 Abs Immat Gran (auto) 0.05 H Absolute Neuts (auto) 9.0 H Absolute Nucleated RBC 0.000 Nucleated RBC % (auto) 0.0 Anion Gap 13 Estim Creat Clear Calc 75.3 Estimated GFR > 60 POC Glucose 314 H 183 H Random Glucose 208 H Calcium 8.8 D Stl C. cayetanensis PCR Stool Rotavirus A PCR Stl Adenov F PCR Stool Astrovirus (PCR) Stool Campylobacter PCR Stool Cryptosporidium PCR Stl Sh Tox Pr E STEC PCR Stool E coli O157 PCR Stl Enterotoxigenic E PCR Stool EPEC (PCR) Stool EAEC (PCR) Stl E. histolytica PCR Stool Giardia Lamblia PCR Stl P. shigelloides PCR Stool Salmonella PCR Stool Sapovirus (PCR) Stl Shigella/EIEC PCR St Y.enterocolitica PCR Stool Vibrio (PCR) Stl Vibrio cholerae PCR Stl Norovirus GI/GII PCR Microbiology Microbiology Results: Microbiology 07/23/24 19:29 Blood Culture - Preliminary Blood - Venous No growth after 24 hours. 07/23/24 13:09 Blood Culture - Preliminary Blood - Venous No growth after 24 hours. Assessment and Plan (1) Abdominal pain: Status: Acute (2) Type 1 diabetes: Status: Acute (3) Intractable vomiting: Status: Acute (4) Diabetic gastroparesis: Status: Acute Plan Yumiko Sena is a 48 y/o woman with PMHx significant for type type 1 DM admitted with: Gastroparesis with intractable abdominal pain and vomiting. leukocytosis reactive IV fluids. Pain control with Dilaudid IV Reglan 5 mg IV t.i.d. advance diet as tolerated; clears now Diabetes on insulin pump pump on hold Lantus and insulin sliding scale Chronic anemia. monitor H&H. DVT prophylaxis: Lovenox Code status: Full Patient will need hospitalization overnight for gastroparesis treatment with antiemetic therapy, pain control with IV analgesia, IV fluids and glucose control with insulin. Quality Stroke Does the patient have a stroke diagnosis?: No VTE Prior VTE?: No VTE Risk Level:: Medical - moderate - high VTE Device Contraindication: Treatment Not Indicated VTE Drug Contraindication: N/A - Med Ordered
[2024-07-25 11:05] LABS: Glucose, Whole Blood 379 mg/dL (60-115)
--- NOTE | 2024-07-25 11:14 | MHC.CM.PN ---
PT LIVES W/ HAS OWN RIDE HOME HAS NO SERVIES
--- NOTE | 2024-07-25 11:15 | PC.NURSE ---
BS [address] Dr. Kenny made aware
[2024-07-25 15:05] VITALS: BP 138/76; PULSE 99; RESP 16; TEMP 36.2; O2SAT 99
[2024-07-25 16:16] LABS: Glucose, Whole Blood 217 mg/dL (60-115)
[2024-07-25 16:29] VITALS: O2SAT 94
[2024-07-25 19:21] VITALS: BP 144/82; PULSE 107; RESP 18; TEMP 36.1; O2SAT 96
[2024-07-25] MEDS: Zolpidem Tartrate 5 MG TABLET PO (20:17)
[2024-07-25 20:54] LABS: Glucose, Whole Blood 154 mg/dL (60-115)
[2024-07-26] VITALS (7 sets, daily range): BP systolic 117–166; BP diastolic 53–81; PULSE 79–104; RESP 14–18; TEMP 36.2–36.9; O2SAT 97–98
[2024-07-26] MEDS: 0.9 % Sodium Chloride 1,000 ML 100 ML IVCONT (02:05)
[2024-07-26] MEDS: HYDROmorphone HCl 1 MG/ML SYRINGE IVPUSH ×7 (03:13→22:37)
[2024-07-26] MEDS: Omeprazole 20 MG CAPSULE.DR PO ×2 (06:18→15:06)
[2024-07-26] MEDS: Metoclopramide HCl 10 MG/2 ML VIAL 5 MG IVPUSH ×3 (07:13→20:22)
[2024-07-26] MEDS: Enoxaparin Sodium 40 MG/0.4 ML SYRINGE SUBCUT (07:17)
[2024-07-26 07:25] LABS: Glucose, Whole Blood 316 mg/dL (60-115)
[2024-07-26] MEDS: Insulin Lispro 100 UNIT/ML 3 ML VIAL SUBCUT ×4 (08:02→20:24)
[2024-07-26] MEDS: Metoprolol Tartrate 25 MG TABLET PO ×2 (08:09→20:23)
[2024-07-26] MEDS: lamoTRIgine 100 MG TABLET 200 MG PO ×2 (08:11→20:24)
[2024-07-26] MEDS: Bethanechol Chloride 25 MG TABLET PO ×3 (08:11→20:24)
[2024-07-26] MEDS: risperiDONE 2 MG TABLET PO ×2 (08:11→20:24)
[2024-07-26] MEDS: LORazepam 1 MG TABLET PO (08:21)
--- NOTE | 2024-07-26 11:10 | HO.PM.IMPN ---
Subjective Subjective Date of Service: 07/26/24 Interval History: seen and evaluated reporting nausea and vomiting overnight looks anxious and restless keep on Clears as tolerated Review of Systems Review of Systems: Yes all other systems are reviewed and are negative Physical Exam Vital Signs: Vital Signs: Last Vital Signs Temp 98.3 F 07/26/24 07:06 Pulse 104 H 07/26/24 08:09 Resp 16 07/26/24 07:06 BP 166/81 H 07/26/24 08:09 Pulse Ox 98 07/26/24 07:06 O2 Del Method Room Air 07/26/24 07:06 BMI result Body Mass Index 24.0 Const: Other: Constitutional : Awake, interactive, not in distress Neck : Normal inspection, Supple Cardiovascular : RRR, no JVP, no lower extremity edema Respiratory : good bilateral air entry, no crackles, wheezes or rhonchi Gastrointestinal: soft, lax, Normal bowel sounds, Non tender Skin : Warm, Dry Neurological : Alert & oriented x3, No focal deficit Objective Data Active Medications Bethanechol Chloride (Bethanechol Chloride 25 Mg Tablet) 25 mg PO TID [facility] Last Admin: 07/26/24 08:11 Dose: 25 mg Documented By: CARMELA Enoxaparin Sodium (Enoxaparin Sodium 40 Mg/0.4 Ml Syringe) 40 mg SUBCUT Q24H [facility] Last Admin: 07/26/24 07:17 Dose: 40 mg Documented By: CARMELA Glucose (Glucose Gel 15 Gm Gel..Gram.) 15 gm PO Q15M PRN; Protocol PRN Reason: per Hypoglycemia Standing Ord. Hydromorphone HCl (Hydromorphone Hcl 1 Mg/Ml Syringe) 1 mg IVPUSH Q3H PRN; Protocol PRN Reason: Pain, Severe (Pain Scale 7-10) Last Admin: 07/26/24 09:20 Dose: 1 mg Documented By: CARMELA Sodium Chloride (Ns) 1,000 mls @ 100 mls/hr IVCONT .Q10H [facility] Last Admin: 07/26/24 05:07 Dose: Not Given Documented By: LUANN Non-Admin Reason: IV Running Dextrose (D10) 250 mls @ 750 mls/hr IV Q15M PRN; Protocol PRN Reason: per Hypoglycemia Standing Ord. Insulin Human Lispro (Insulin Lispro 100 Unit/Ml 3 Ml Vial) 0 unit SUBCUT QIDACHS [facility], [facility]; Protocol Last Admin: 07/26/24 08:02 Dose: 8 unit Documented By: CARMELA Lamotrigine (Lamotrigine 100 Mg Tablet) 200 mg PO BID [facility] Last Admin: 07/26/24 08:11 Dose: 200 mg Documented By: CARMELA Lorazepam (Lorazepam 1 Mg Tablet) 1 mg PO TID PRN PRN Reason: Anxiety Last Admin: 07/26/24 08:21 Dose: 1 mg Documented By: CARMELA Comments: Patient requested for anxiety Metoclopramide HCl (Metoclopramide Hcl 10 Mg/2 Ml Vial) 5 mg IVPUSH TID [facility] Last Admin: 07/26/24 07:13 Dose: 5 mg Documented By: CARMELA Metoprolol Tartrate (Metoprolol Tartrate 25 Mg Tablet) 25 mg PO BID [facility], [facility]; Protocol Last Admin: 07/26/24 08:09 Dose: 25 mg Documented By: CARMELA Midodrine (Midodrine Hcl 5 Mg Tablet) 5 mg PO DAILY [facility] Last Admin: 07/26/24 08:09 Dose: Not Given Documented By: CARMELA Non-Admin Reason: BP 161/77 Omeprazole (Omeprazole 20 Mg Capsule.Dr) 20 mg PO BID@0630,1630 [facility] Last Admin: 07/26/24 06:18 Dose: 20 mg Documented By: LUANN Risperidone (Risperidone 2 Mg Tablet) 2 mg PO BID [facility] Last Admin: 07/26/24 08:11 Dose: 2 mg Documented By: CARMELA Sodium Chloride (0.9 % Sodium Chloride Flush 3 Ml Syringe) 3 ml IVFLUSH QSHIFT [facility] Last Admin: 07/26/24 07:20 Dose: Not Given Documented By: CARMELA Non-Admin Reason: IV Running Zolpidem Tartrate (Zolpidem Tartrate 5 Mg Tablet) 5 mg PO BEDTIME [facility] Last Admin: 07/25/24 20:17 Dose: 5 mg Documented By: LUANN Labs 07/25/24 06:03 07/25/24 06:03 Labs: Laboratory Results - last 24 hr 07/25/24 07/25/24 07/26/24 16:12 20:42 07:08 POC Glucose 217 H 154 H 316 H Microbiology Microbiology Results: Microbiology 07/23/24 19:29 Blood Culture - Preliminary Blood - Venous No growth after 48 hours. 07/23/24 13:09 Blood Culture - Preliminary Blood - Venous No growth after 48 hours. Assessment and Plan (1) Intractable vomiting: Status: Acute (2) Type 1 diabetes: Status: Acute (3) Abdominal pain: Status: Acute (4) Diabetic gastroparesis: Status: Acute Plan Yumiko Sena is a 48 y/o woman with PMHx significant for type type 1 DM admitted with: Gastroparesis with intractable abdominal pain and vomiting. leukocytosis reactive and resolved change IV fluids to D5 w RL Pain control with Dilaudid IV Reglan 5 mg IV t.i.d. Ativan for anxiety advance diet as tolerated; clears now Diabetes on insulin pump pump on hold Lantus and insulin sliding scale Chronic anemia. monitor H&H. DVT prophylaxis: Lovenox Code status: Full Patient will need hospitalization overnight for gastroparesis treatment with antiemetic therapy, pain control with IV analgesia, IV fluids and glucose control with insulin. Quality Stroke Does the patient have a stroke diagnosis?: No VTE Prior VTE?: No VTE Risk Level:: Medical - moderate - high VTE Device Contraindication: Treatment Not Indicated VTE Drug Contraindication: N/A - Med Ordered
[2024-07-26] MEDS: diphenhydrAMINE HCL 50 MG/ML VIAL 25 MG IVPUSH (11:30)
[2024-07-26 11:33] LABS: Glucose, Whole Blood 226 mg/dL (60-115)
[2024-07-26] MEDS: Insulin Glargine,Hum.rec.anlog 100 UNIT/ML 10 ML VIAL 10 UNIT SUBCUT (12:19)
[2024-07-26] MEDS: Dextrose 5 % and Lactated Ring 1,000 ML 100 ML IVCONT ×2 (12:19→22:37)
[2024-07-26] MEDS: 0.9 % Sodium Chloride Flush 3 ML SYRINGE IVFLUSH ×2 (15:07→20:25)
[2024-07-26 16:14] LABS: Glucose, Whole Blood 181 mg/dL (60-115)
[2024-07-26 19:55] LABS: Glucose, Whole Blood 198 mg/dL (60-115)
[2024-07-26] MEDS: Zolpidem Tartrate 5 MG TABLET PO (20:24)
[2024-07-27] VITALS (10 sets, daily range): BP systolic 112–160; BP diastolic 53–82; PULSE 80–110; RESP 16–18; TEMP 36.3–37.2; O2SAT 95–99
[2024-07-27] MEDS: HYDROmorphone HCl 1 MG/ML SYRINGE IVPUSH ×3 (01:52→20:11)
[2024-07-27] MEDS: Omeprazole 20 MG CAPSULE.DR PO ×2 (06:08→16:11)
[2024-07-27 06:17] LABS: Anion Gap 12 (12-20); Blood Urea Nitrogen 6 mg/dL (9-16); Calcium 8.4 mg/dL (8.4-10.2); Carbon Dioxide 28 mmol/L (22-29); Chloride 101 mmol/L (96-108); Creatinine Clr Calc Pharmacy 77.3; Estimated Glomerular Filt Rate > 60; Glucose Random 298 mg/dL (60-115); Sodium 138 mmol/L (135-145)
[2024-07-27 07:25] LABS: Glucose, Whole Blood 379 mg/dL (60-115)
[2024-07-27] MEDS: Metoclopramide HCl 10 MG/2 ML VIAL 5 MG IVPUSH ×3 (07:48→20:04)
[2024-07-27] MEDS: diphenhydrAMINE HCL 50 MG/ML VIAL 25 MG IVPUSH ×2 (08:36→17:56)
[2024-07-27] MEDS: Potassium Chloride/H20 10 MEQ/100 ML PIGGYBACK 100 MEQ IV ×2 (08:36→09:49)
[2024-07-27 09:32] LABS: Glucose, Whole Blood 436 mg/dL (60-115)
--- NOTE | 2024-07-27 09:38 | P.PNIM_ITS ---
Subjective Subjective Date of Service: 07/27/24 Interval History: seen and evaluated reporting nausea and vomiting overnight unable to tolerate PO eating 10-15% only anxious and restless no other events Review of Systems Review of Systems: Yes all other systems are reviewed and are negative Physical Exam 2 Vital Signs: Vital Signs: Last Vital Signs Temp 97.4 F 07/27/24 09:18 Pulse 98 07/27/24 09:18 Resp 16 07/27/24 09:18 BP 160/82 H 07/27/24 09:18 Pulse Ox 95 07/27/24 09:18 O2 Del Method Room Air 07/27/24 09:18 BMI result Body Mass Index 24.0 Const: Other: Constitutional : Awake, interactive, in mild distress, anxious Neck : Normal inspection, Supple Cardiovascular : RRR, no JVP, no lower extremity edema Respiratory : good bilateral air entry, no crackles, wheezes or rhonchi Gastrointestinal: soft, lax, Normal bowel sounds, mild epigastric tenderness Skin : Warm, Dry Neurological : Alert & oriented x3, No focal deficit Objective Data Active Medications Bethanechol Chloride (Bethanechol Chloride 25 Mg Tablet) 25 mg PO TID [facility] Last Admin: 07/26/24 20:24 Dose: 25 mg Documented By: JUAN JOSE Diphenhydramine HCl (Diphenhydramine Hcl 50 Mg/Ml Vial) 25 mg IVPUSH Q6H PRN PRN Reason: Nausea\Allergy Enoxaparin Sodium (Enoxaparin Sodium 40 Mg/0.4 Ml Syringe) 40 mg SUBCUT Q24H [facility] Last Admin: 07/26/24 07:17 Dose: 40 mg Documented By: CARMELA Glucose (Glucose Gel 15 Gm Gel..Gram.) 15 gm PO Q15M PRN; Protocol PRN Reason: per Hypoglycemia Standing Ord. Hydromorphone HCl (Hydromorphone Hcl 0.5 Mg/0.5 Ml Syringe) 0.5 mg IVPUSH Q4H PRN; Protocol PRN Reason: Pain, Severe (Pain Scale 7-10) Dextrose (D10) 250 mls @ 750 mls/hr IV Q15M PRN; Protocol PRN Reason: per Hypoglycemia Standing Ord. Potassium Chloride (Potassium Chloride/H20) 10 meq in 100 mls @ 100 mls/hr IV Q1H [facility] Stop: 07/27/24 09:44 Last Admin: 07/27/24 08:36 Dose: 100 mls/hr Documented By: BRAYDEN Lactated Ringer's (Lr) 1,000 mls @ 100 mls/hr IVCONT .Q10H [facility] Insulin Glargine (Insulin Glargine,Hum.Rec.Anlog 100 Unit/Ml 10 Ml Vial) 10 unit SUBCUT DAILY [facility] Insulin Human Lispro (Insulin Lispro 100 Unit/Ml 3 Ml Vial) 0 unit SUBCUT QIDACHS [facility]; Protocol Last Admin: 07/26/24 20:24 Dose: 2 unit Documented By: JUAN JOSE Lamotrigine (Lamotrigine 100 Mg Tablet) 200 mg PO BID [facility] Last Admin: 07/26/24 20:24 Dose: 200 mg Documented By: JUAN JOSE Lorazepam (Lorazepam 1 Mg Tablet) 1 mg PO TID PRN PRN Reason: Anxiety Last Admin: 07/26/24 08:21 Dose: 1 mg Documented By: CARMELA Comments: Patient requested for anxiety Metoclopramide HCl (Metoclopramide Hcl 10 Mg/2 Ml Vial) 5 mg IVPUSH TID [facility] Last Admin: 07/27/24 07:48 Dose: 5 mg Documented By: BRAYDEN Metoprolol Tartrate (Metoprolol Tartrate 25 Mg Tablet) 25 mg PO BID [facility]; Protocol Last Admin: 07/26/24 20:23 Dose: 25 mg Documented By: JUAN JOSE Midodrine (Midodrine Hcl 5 Mg Tablet) 5 mg PO DAILY [facility] Last Admin: 07/26/24 08:09 Dose: Not Given Documented By: CARMELA Non-Admin Reason: BP 161/77 Omeprazole (Omeprazole 20 Mg Capsule.Dr) 20 mg PO BID@0630,1630 [facility] Last Admin: 07/27/24 06:08 Dose: 20 mg Documented By: JUAN JOSE Risperidone (Risperidone 2 Mg Tablet) 2 mg PO BID [facility] Last Admin: 07/26/24 20:24 Dose: 2 mg Documented By: JUAN JOSE Sodium Chloride (0.9 % Sodium Chloride Flush 3 Ml Syringe) 3 ml IVFLUSH QSHIFT [facility] Last Admin: 07/27/24 09:10 Dose: Not Given Documented By: BRAYDEN Non-Admin Reason: Previously Administered Zolpidem Tartrate (Zolpidem Tartrate 5 Mg Tablet) 5 mg PO BEDTIME [facility] Last Admin: 07/26/24 20:24 Dose: 5 mg Documented By: JUAN JOSE Labs 07/25/24 06:03 07/27/24 05:23 Labs: Laboratory Results - last 24 hr 07/26/24 07/26/24 07/26/24 11:25 16:09 19:28 Anion Gap Estim Creat Clear Calc Estimated GFR POC Glucose 226 H 181 H 198 H Random Glucose Calcium 07/27/24 07/27/24 07/27/24 05:23 07:15 09:26 Anion Gap 12 Estim Creat Clear Calc 77.3 Estimated GFR > 60 POC Glucose 379 H* 436 H* Random Glucose 298 H Calcium 8.4 Assessment and Plan (1) Abdominal pain: Status: Acute (2) Type 1 diabetes: Status: Acute (3) Diabetic gastroparesis: Status: Acute (4) Intractable vomiting: Status: Acute Plan Yumiko Sena is a 48 y/o woman with PMHx significant for type type 1 DM admitted with nausea and vomiting. Gastroparesis with intractable abdominal pain and vomiting. leukocytosis reactive and resolved change IV fluids to RL Pain control with Dilaudid IV Reglan 5 mg IV t.i.d. Ativan for anxiety advance diet as tolerated; clears now Diabetes on insulin pump pump on hold Lantus and insulin sliding scale Chronic anemia. monitor H&H. DVT prophylaxis: Lovenox Code status: Full Patient will need hospitalization overnight for gastroparesis treatment with antiemetic therapy, pain control with IV analgesia, IV fluids and glucose control with insulin. Quality Stroke Does the patient have a stroke diagnosis?: No VTE Prior VTE?: No VTE Risk Level:: Medical - moderate - high VTE Device Contraindication: Treatment Not Indicated VTE Drug Contraindication: N/A - Med Ordered
[2024-07-27] MEDS: HYDROmorphone HCl 0.5 MG/0.5 ML SYRINGE IVPUSH ×2 (09:47→14:01)
[2024-07-27] MEDS: Insulin Glargine,Hum.rec.anlog 100 UNIT/ML 10 ML VIAL 10 UNIT SUBCUT (09:48)
[2024-07-27] MEDS: Insulin Lispro 100 UNIT/ML 3 ML VIAL SUBCUT ×5 (09:48→22:12)
[2024-07-27] MEDS: lamoTRIgine 100 MG TABLET 200 MG PO ×2 (09:49→22:11)
[2024-07-27] MEDS: risperiDONE 2 MG TABLET PO ×2 (09:49→22:11)
[2024-07-27] MEDS: Enoxaparin Sodium 40 MG/0.4 ML SYRINGE SUBCUT (09:49)
[2024-07-27] MEDS: Bethanechol Chloride 25 MG TABLET PO ×3 (09:50→22:12)
[2024-07-27] MEDS: Metoprolol Tartrate 25 MG TABLET PO ×2 (09:50→22:11)
[2024-07-27] MEDS: Lactated Ringers 1,000 ML 100 ML IVCONT ×2 (11:01→20:05)
[2024-07-27 11:29] LABS: Glucose, Whole Blood 266 mg/dL (60-115)
--- NOTE | 2024-07-27 15:10 | MHC.CM.PN ---
Per MD rounds Patient is cleared for discharge. Patient continues with N/V not able to tolerate PO intake. DP home self care. Patient will arrange for transportation home at discharge.
--- NOTE | 2024-07-27 15:41 | PC.NURSE ---
Pt family member expressing concern about pt stating she is blacking out . This RN went into room to assess pt. Pt reports feeling that blood sugar is low and that pt feels shaky. This RN checked POC, it was 64. Two apple juices given. Will recheck POC per protocol.
[2024-07-27 15:43] LABS: Glucose, Whole Blood 64 mg/dL (60-115)
[2024-07-27 15:57] LABS: Glucose, Whole Blood 100 mg/dL (60-115)
--- NOTE | 2024-07-27 16:00 | PC.NURSE ---
Repeat POC at 1553 of 100. Patient reports feeling better after x2 apple juices.
--- NOTE | 2024-07-27 16:00 | PC.NURSE ---
Approximately 1420- patient ambulated to bathroom with assistance of staff. Ambulates with intermittently unsteady gait- declines to use walker. Ambulated back to bed from bathroom with staff's assistance. Patient lost her balance at the bedside and staff assisted her back to bed. Patient reported blacking out . Vital signs obtained and stable. Discussed having received dilaudid before incident. Dr. Kenny notified. Camera placed in room for safety. Education provided on fall risk and safety measures. Patient verbally understood.
[2024-07-27 16:21] LABS: Glucose, Whole Blood 160 mg/dL (60-115)
[2024-07-27 18:23] LABS: Glucose, Whole Blood 183 mg/dL (60-115)
[2024-07-27 19:54] LABS: Glucose, Whole Blood 281 mg/dL (60-115)
--- NOTE | 2024-07-27 20:00 | PC.NURSE ---
pt crying reporting abdominal pain 10/10, requesting pain meds. Dr. Farooq made aware, new orders placed.
[2024-07-27] MEDS: 0.9 % Sodium Chloride Flush 3 ML SYRINGE IVFLUSH (20:12)
[2024-07-27] MEDS: Zolpidem Tartrate 5 MG TABLET PO (22:11)
[2024-07-28] MEDS: HYDROmorphone HCl 1 MG/ML SYRINGE IVPUSH ×3 (00:20→09:46)
[2024-07-28 02:54] VITALS: BP 109/59; PULSE 76; RESP 16; TEMP 36; O2SAT 96
[2024-07-28 03:04] LABS: Glucose, Whole Blood 80 mg/dL (60-115)
[2024-07-28] MEDS: Omeprazole 20 MG CAPSULE.DR PO ×2 (05:25→17:23)
[2024-07-28] MEDS: Lactated Ringers 1,000 ML 100 ML IVCONT ×2 (05:26→14:03)
[2024-07-28 07:06] VITALS: BP 148/68; PULSE 86; RESP 16; TEMP 36.7; O2SAT 97
[2024-07-28 07:22] LABS: Glucose, Whole Blood 274 mg/dL (60-115)
[2024-07-28] MEDS: Insulin Lispro 100 UNIT/ML 3 ML VIAL SUBCUT ×3 (08:10→21:37)
[2024-07-28] MEDS: risperiDONE 2 MG TABLET PO ×2 (08:11→21:38)
[2024-07-28] MEDS: Metoprolol Tartrate 25 MG TABLET PO ×2 (08:11→21:39)
[2024-07-28] MEDS: Enoxaparin Sodium 40 MG/0.4 ML SYRINGE SUBCUT (08:11)
[2024-07-28] MEDS: lamoTRIgine 100 MG TABLET 200 MG PO ×2 (08:11→21:39)
[2024-07-28] MEDS: Metoclopramide HCl 10 MG/2 ML VIAL 5 MG IVPUSH ×3 (08:11→21:32)
[2024-07-28] MEDS: Insulin Glargine,Hum.rec.anlog 100 UNIT/ML 10 ML VIAL 10 UNIT SUBCUT (08:11)
[2024-07-28] MEDS: Bethanechol Chloride 25 MG TABLET PO (08:16)
[2024-07-28 11:16] LABS: Glucose, Whole Blood 235 mg/dL (60-115)
--- NOTE | 2024-07-28 12:19 | P.CDIM_ITS ---
PROVIDER RESPONSE TEXT: To clarify, the appropriate diagnosis supported by the clinical indicators: Hypokalemia: acute QUERY TEXT: PHYSICIAN'S DOCUMENTATION REQUEST Date of Query: 07/28/2024 05:43 AM EST Patient Name: Yumiko Sena Admit Date: 07/24/2024 Dear Fernanda Kenny MD, A review of the medical record indicates additional documentation may be needed. Please review below and update the documentation accordingly. Clinical Indicators: LABS: 07/27 - potassium 3.0 L IV potassium chloride Based on the above, is there a diagnosis that correlates with these lab findings: Hypokalemia resolved, possible etc. Labs indicate a diagnosis of (please specify) Other (explain) Clinically unable to determine (explain) Thank you, Stacey Adams, CCS, CDIS Use of terms such as suspected, likely, concern for, or probable (associated with a specific diagnosi s that is being evaluated, monitored, or treated as if it exists) are acceptable and can be coded in the inpatient se tting, when documented at the time of discharge. Please use your independent medical judgment in providing your response. THIS QUERY IS PART OF THE PERMANENT MEDICAL RECORD
--- NOTE | 2024-07-28 12:34 | P.DS_ITS ---
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 She also was complaining of nausea and vomiting and diarrhea. She smokes marijuana. Did not report illicit drug use. In the ED, she was found to have mild tachycardia. Last blood pressure 182/97 and currently seems to be very uncomfortable due to pain. There is no fever reported. She was initially found to have a glucose of 56 -her own insulin pump was discontinued. Last blood glucose reported is 372 (last night at 9 PM). There is leukocytosis of 14.9. Hemoglobin is 11.1 and platelets 563. Venous pH is 7.56. There are no electrolyte imbalances or lactic acidosis. Beta hydroxybutyrate is 1.35 and test is negative. Viral testing for COVID 19, RSV and influenza is negative. CXR is negative. Abdominal pelvis CT scan showed moderate constipation. Head CT scan showed no acute intracranial abnormalities. ED tx: LR 2 L bolus, Benadryl 25 mg IV, Reglan 10 mg IV, famotidine 20 mg IV Hospital course Gastroparesis with intractable abdominal pain and vomiting. leukocytosis reactive and resolved change IV fluids to RL Pain control with Dilaudid IV Reglan 5 mg IV t.i.d. Ativan for anxiety advance diet as tolerated; clears now Discharge plan Take Zofran as needed Advance your diet as tolerated Stop using THC products Benadryl as needed for nausea as well Physical Exam Vital Signs: Vital Signs: Last Vital Signs Temp 98.1 F 07/28/24 07:06 Pulse 86 07/28/24 07:06 Resp 16 07/28/24 07:06 BP 148/68 H 07/28/24 07:06 Pulse Ox 97 07/28/24 07:06 O2 Del Method Room Air 07/28/24 07:06 BMI result Body Mass Index 24.0 DS: Data Data Completed and Pending Labs on day of discharge: Laboratory Results - last 24 hr 07/27/24 07/27/24 07/27/24 15:39 15:53 16:15 POC Glucose 64 100 160 H 07/27/24 07/27/24 07/28/24 18:18 19:49 03:00 POC Glucose 183 H 281 H 80 07/28/24 07/28/24 07:10 11:06 POC Glucose 274 H 235 H Preliminary micro results at discharge 07/23/24 19:29 Blood Culture - Preliminary Blood - Venous No growth after 48 hours. 07/23/24 13:09 Blood Culture - Preliminary Blood - Venous No growth after 48 hours. Discharge Plan Discharge Anticipated Discharge Date/Time: 07/28/24 12:31 Patient Disposition: Home, Self-Care Discharge Diagnosis: Nausea and vomiting Referrals: Yulisa Dyson MD [Primary Care Provider] - 1 Week Discharge Medications: Continued metoprolol tartrate 25 mg tablet 25 mg PO BID Qty: 180 1RF midodrine 5 mg tablet 5 mg PO DAILY Qty: 90 2RF lorazepam 1 mg Tablet 1 mg PO TID PRN (Reason: Anxiety) lamotrigine 200 mg Tablet 200 mg PO BID zolpidem 10 mg Tablet 10 mg PO BEDTIME risperidone 2 mg tablet 2 mg PO BID insulin aspart U-100 [Novolog U-100 Insulin aspart] 100 unit/mL solution 0 - 100 unit subcut DAILY ondansetron 4 mg tablet,disintegrating 4 mg PO Q8H PRN (Reason: nausea and vomiting) Qty: 20 0RF omeprazole 20 mg capsule,delayed release(DR/EC) 20 mg PO BID@0630,1630 Diet: Advance to usual diet Activity on Discharge: As tolerated Stand Alone Forms: Patient Portal Discharge page Print Language: [place]agu[place] Care Plan Goals: Take Zofran as needed Advance your diet as tolerated Stop using THC products Benadryl as needed for nausea as well Health Concerns: Intractable nausea and vomiting Plan of Treatment: Zofran gradually advance diet Assessment: as above
--- NOTE | 2024-07-28 13:07 | HO.PM.IMPN ---
Subjective Subjective Date of Service: 07/28/24 Interval History: seen and evaluated reporting nausea and dry heaving unable to tolerate PO eating 10-15% only of her meals no other events Review of Systems Review of Systems: Yes all other systems are reviewed and are negative Physical Exam Vital Signs: Vital Signs: Last Vital Signs Temp 98.1 F 07/28/24 07:06 Pulse 86 07/28/24 07:06 Resp 16 07/28/24 07:06 BP 148/68 H 07/28/24 07:06 Pulse Ox 97 07/28/24 07:06 O2 Del Method Room Air 07/28/24 07:06 BMI result Body Mass Index 24.0 Const: Other: Constitutional : Awake, interactive, in mild distress, anxious Neck : Normal inspection, Supple Cardiovascular : RRR, no JVP, no lower extremity edema Respiratory : good bilateral air entry, no crackles, wheezes or rhonchi Gastrointestinal: soft, lax, Normal bowel sounds, mild epigastric tenderness Skin : Warm, Dry Neurological : Alert & oriented x3, No focal deficit Objective Data Active Medications Diphenhydramine HCl (Diphenhydramine Hcl 50 Mg/Ml Vial) 25 mg IVPUSH Q6H PRN PRN Reason: Nausea\Allergy Last Admin: 07/27/24 17:56 Dose: 25 mg Documented By: BRAYDEN Enoxaparin Sodium (Enoxaparin Sodium 40 Mg/0.4 Ml Syringe) 40 mg SUBCUT Q24H [facility] Last Admin: 07/28/24 08:11 Dose: 40 mg Documented By: VLADIMIR Glucose (Glucose Gel 15 Gm Gel..Gram.) 15 gm PO Q15M PRN; Protocol PRN Reason: per Hypoglycemia Standing Ord. Dextrose (D10) 250 mls @ 750 mls/hr IV Q15M PRN; Protocol PRN Reason: per Hypoglycemia Standing Ord. Insulin Glargine (Insulin Glargine,Hum.Rec.Anlog 100 Unit/Ml 10 Ml Vial) 10 unit SUBCUT DAILY [facility] Last Admin: 07/28/24 08:11 Dose: 10 unit Documented By: VLADIMIR Insulin Human Lispro (Insulin Lispro 100 Unit/Ml 3 Ml Vial) 0 unit SUBCUT QIDACHS [facility]; Protocol Last Admin: 07/28/24 13:06 Dose: Not Given Documented By: VLADIMIR Non-Admin Reason: Patient Condition Contraindication Lamotrigine (Lamotrigine 100 Mg Tablet) 200 mg PO BID [facility] Last Admin: 07/28/24 08:11 Dose: 200 mg Documented By: VLADIMIR Lorazepam (Lorazepam 1 Mg Tablet) 1 mg PO TID PRN PRN Reason: Anxiety Last Admin: 07/26/24 08:21 Dose: 1 mg Documented By: CARMELA Comments: Patient requested for anxiety Metoclopramide HCl (Metoclopramide Hcl 10 Mg/2 Ml Vial) 5 mg IVPUSH TID [facility] Last Admin: 07/28/24 08:11 Dose: 5 mg Documented By: VLADIMIR Metoprolol Tartrate (Metoprolol Tartrate 25 Mg Tablet) 25 mg PO BID [facility]; Protocol Last Admin: 07/28/24 08:11 Dose: 25 mg Documented By: VLADIMIR Midodrine (Midodrine Hcl 5 Mg Tablet) 5 mg PO DAILY [facility] Last Admin: 07/28/24 08:07 Dose: Not Given Documented By: VLADIMIR Non-Admin Reason: Elevated Blood Pressure Omeprazole (Omeprazole 20 Mg Capsule.Dr) 20 mg PO BID@0630,1630 [facility] Last Admin: 07/28/24 05:25 Dose: 20 mg Documented By: ADIA Risperidone (Risperidone 2 Mg Tablet) 2 mg PO BID [facility] Last Admin: 07/28/24 08:11 Dose: 2 mg Documented By: VLADIMIR Sodium Chloride (0.9 % Sodium Chloride Flush 3 Ml Syringe) 3 ml IVFLUSH QSHIFT [facility] Last Admin: 07/28/24 08:08 Dose: Not Given Documented By: VLADIMIR Non-Admin Reason: IV Running Zolpidem Tartrate (Zolpidem Tartrate 5 Mg Tablet) 5 mg PO BEDTIME [facility] Last Admin: 07/27/24 22:11 Dose: 5 mg Documented By: ADIA Labs 07/25/24 06:03 07/27/24 05:23 Labs: Laboratory Results - last 24 hr 07/27/24 07/27/24 07/27/24 15:39 15:53 16:15 POC Glucose 64 100 160 H 07/27/24 07/27/24 07/28/24 18:18 19:49 03:00 POC Glucose 183 H 281 H 80 07/28/24 07/28/24 07:10 11:06 POC Glucose 274 H 235 H Assessment and Plan (1) Type 1 diabetes: Status: Acute (2) Intractable vomiting: Status: Acute (3) Diabetic gastroparesis: Status: Acute Plan Yumiko Sena is a 48 y/o woman with PMHx significant for type type 1 DM admitted with nausea and vomiting. Gastroparesis with intractable abdominal pain and vomiting. leukocytosis reactive and resolved IV fluids RL DC Dilaudid IV Reglan 5 mg IV t.i.d. Famotidine IV bid Ativan for anxiety advance diet as tolerated; clears now Diabetes on insulin pump pump on hold Lantus and insulin sliding scale Chronic anemia. monitor H&H. DVT prophylaxis: Lovenox Code status: Full Patient will need hospitalization overnight for gastroparesis treatment with antiemetic therapy, pain control with IV analgesia, IV fluids and glucose control with insulin. Quality Stroke Does the patient have a stroke diagnosis?: No VTE Prior VTE?: No VTE Risk Level:: Medical - moderate - high VTE Device Contraindication: Treatment Not Indicated VTE Drug Contraindication: N/A - Med Ordered
[2024-07-28] MEDS: diphenhydrAMINE HCL 50 MG/ML VIAL 25 MG IVPUSH ×2 (14:03→21:31)
[2024-07-28] MEDS: Famotidine/PF 20 MG/2 ML VIAL IVPUSH ×2 (14:03→21:35)
[2024-07-28] MEDS: LORazepam 1 MG TABLET PO (14:04)
[2024-07-28 15:54] VITALS: BP 113/57; PULSE 75; RESP 12; TEMP 36.1; O2SAT 99
[2024-07-28 16:33] LABS: Glucose, Whole Blood 216 mg/dL (60-115)
[2024-07-28 19:27] VITALS: BP 109/53; PULSE 90; RESP 18; TEMP 36.8; O2SAT 97
[2024-07-28 20:04] LABS: Glucose, Whole Blood 207 mg/dL (60-115)
[2024-07-28] MEDS: Zolpidem Tartrate 5 MG TABLET PO (21:38)
[2024-07-28 21:39] VITALS: BP 109/53; PULSE 90
[2024-07-28] MEDS: 0.9 % Sodium Chloride Flush 3 ML SYRINGE IVFLUSH (21:40)
[2024-07-29] MEDS: Lactated Ringers 1,000 ML 100 ML IVCONT ×3 (00:16→23:09)
[2024-07-29] MEDS: LORazepam 1 MG TABLET PO (02:10)
[2024-07-29] MEDS: diphenhydrAMINE HCL 50 MG/ML VIAL 25 MG IVPUSH ×3 (02:14→21:28)
[2024-07-29 02:24] LABS: Glucose, Whole Blood 154 mg/dL (60-115)
[2024-07-29 03:13] VITALS: BP 118/58; PULSE 82; RESP 18; TEMP 36.8; O2SAT 98
[2024-07-29] MEDS: Omeprazole 20 MG CAPSULE.DR PO ×2 (05:39→16:38)
[2024-07-29 06:48] LABS: Anion Gap 16 (12-20); Blood Urea Nitrogen 4 mg/dL (9-16); Calcium 8.6 mg/dL (8.4-10.2); Carbon Dioxide 26 mmol/L (22-29); Chloride 100 mmol/L (96-108); Creatinine Clr Calc Pharmacy 72.5; Estimated Glomerular Filt Rate > 60; Glucose Random 276 mg/dL (60-115); Potassium 2.9 mmol/L (3.3-5.1); Sodium 139 mmol/L (135-145)
[2024-07-29 06:53] LABS: Basophils Absolute Auto 0.1 X10*3/uL (0.0-0.2); Basophils Percent Auto 0.5 % (0-2); Eosinophils Absolute Auto 0.2 X10*3/uL (0.0-0.4); Eosinophils Percent Auto 1.7 % (0-4); Hematocrit 28.9 % (37.0-47.0); Hemoglobin 9.8 g/dl (12.0-16.0); Imm Gran Abs Auto 0.03 X10*3/uL (0.00-0.03); Imm Gran Pct Auto 0.3 % (0.0-0.4); Lymphocytes Absolute Auto 2.8 X10*3/uL (1.2-4.9); Lymphocytes Percent Auto 30.5 % (20-40); MANUAL DIFF FLAG SCAN; Mean Corpuscular HGB Conc 33.9 g/dl (31.0-35.0); Mean Corpuscular Hemoglobin 26.9 pg (27.0-33.0); Mean Corpuscular Volume 79.4 fL (80.0-98.0); Monocytes Absolute Auto 0.6 X10*3/uL (0.1-1.2); Monocytes Percent Auto 6.1 % (2-11); Neutrophils Absolute Auto 5.6 x10*3/uL (2.0-8.3); Neutrophils Percent Auto 60.9 % (45-73); PLT CLUMP 1; Red Blood Count 3.64 X10*6/uL (4.20-5.50); Red Cell Distribution Width 15.2 % (11.0-16.0); SCAN SMEAR FLAG 1
[2024-07-29 06:57] VITALS: BP 147/69; PULSE 85; RESP 16; TEMP 36.9; O2SAT 95
[2024-07-29 07:06] LABS: Glucose, Whole Blood 272 mg/dL (60-115)
[2024-07-29] MEDS: Potassium Chloride/H20 10 MEQ/100 ML PIGGYBACK 100 MEQ IV ×4 (07:35→11:27)
[2024-07-29] MEDS: Insulin Lispro 100 UNIT/ML 3 ML VIAL SUBCUT ×4 (07:36→21:24)
[2024-07-29] MEDS: lamoTRIgine 100 MG TABLET 200 MG PO ×2 (07:38→21:26)
[2024-07-29] MEDS: Insulin Glargine,Hum.rec.anlog 100 UNIT/ML 10 ML VIAL 10 UNIT SUBCUT (07:38)
[2024-07-29] MEDS: Metoprolol Tartrate 25 MG TABLET PO ×2 (07:38→21:26)
[2024-07-29] MEDS: Famotidine/PF 20 MG/2 ML VIAL IVPUSH ×2 (07:39→21:30)
[2024-07-29] MEDS: Metoclopramide HCl 10 MG/2 ML VIAL 5 MG IVPUSH ×3 (07:39→21:29)
[2024-07-29] MEDS: risperiDONE 2 MG TABLET PO ×2 (07:39→21:26)
[2024-07-29 08:58] LABS: Mean Platelet Volume 10.6 fL (9.4-12.3); Platelet Count 394 X10*3/uL (160-400); SLIDE REVIEW VERIFIED; White Blood Count 9.3 X10*3/uL (4.8-10.8)
[2024-07-29] MEDS: Enoxaparin Sodium 40 MG/0.4 ML SYRINGE SUBCUT (09:56)
--- NOTE | 2024-07-29 10:48 | P.PNIM_ITS ---
Subjective Subjective Date of Service: 07/29/24 Interval History: Tried solids today and had worsening pain Physical Exam 2 Vital Signs: Vital Signs: Last Vital Signs Temp 98.4 F 07/29/24 06:57 Pulse 85 07/29/24 06:57 Resp 16 07/29/24 06:57 BP 147/69 H 07/29/24 06:57 Pulse Ox 95 07/29/24 06:57 O2 Del Method Room Air 07/29/24 06:57 BMI result Body Mass Index 24.0 Const: Other: Constitutional : Awake, interactive, in mild distress, anxious Neck : Normal inspection, Supple Cardiovascular : RRR, no JVP, no lower extremity edema Respiratory : good bilateral air entry, no crackles, wheezes or rhonchi Gastrointestinal: soft, lax, Normal bowel sounds, mild epigastric tenderness Skin : Warm, Dry Neurological : Alert & oriented x3, No focal deficit Objective Data Active Medications Diphenhydramine HCl (Diphenhydramine Hcl 50 Mg/Ml Vial) 25 mg IVPUSH Q6H PRN PRN Reason: Nausea\Allergy Last Admin: 07/29/24 05:45 Dose: 25 mg Documented By: ADIA Diphenhydramine HCl (Diphenhydramine Hcl 50 Mg/Ml Vial) 25 mg IVPUSH BID [facility] Last Admin: 07/29/24 02:14 Dose: 25 mg Documented By: ADIA Enoxaparin Sodium (Enoxaparin Sodium 40 Mg/0.4 Ml Syringe) 40 mg SUBCUT Q24H [facility] Last Admin: 07/29/24 09:56 Dose: 40 mg Documented By: THUY Famotidine (Famotidine/Pf 20 Mg/2 Ml Vial) 20 mg IVPUSH BID [facility] Last Admin: 07/29/24 07:39 Dose: 20 mg Documented By: THUY Glucose (Glucose Gel 15 Gm Gel..Gram.) 15 gm PO Q15M PRN; Protocol PRN Reason: per Hypoglycemia Standing Ord. Hydromorphone HCl (Hydromorphone Hcl 1 Mg/Ml Syringe) 1 mg IVPUSH Q4H PRN; Protocol PRN Reason: Pain, Severe (Pain Scale 7-10) Dextrose (D10) 250 mls @ 750 mls/hr IV Q15M PRN; Protocol PRN Reason: per Hypoglycemia Standing Ord. Lactated Ringer's (Lr) 1,000 mls @ 100 mls/hr IVCONT .Q10H [facility] Last Infusion: 07/29/24 08:50 Dose: 0 mls/hr Documented By: THUY Potassium Chloride (Potassium Chloride/H20) 10 meq in 100 mls @ 100 mls/hr IV Q1H [facility] Stop: 07/29/24 10:59 Last Admin: 07/29/24 09:53 Dose: 100 mls/hr Documented By: THUY Insulin Glargine (Insulin Glargine,Hum.Rec.Anlog 100 Unit/Ml 10 Ml Vial) 10 unit SUBCUT DAILY [facility] Last Admin: 07/29/24 07:38 Dose: 10 unit Documented By: THUY Insulin Human Lispro (Insulin Lispro 100 Unit/Ml 3 Ml Vial) 0 unit SUBCUT QIDACHS [facility]; Protocol Last Admin: 07/29/24 07:36 Dose: 6 unit Documented By: THUY Lamotrigine (Lamotrigine 100 Mg Tablet) 200 mg PO BID [facility] Last Admin: 07/29/24 07:38 Dose: 200 mg Documented By: THUY Lorazepam (Lorazepam 1 Mg Tablet) 1 mg PO TID PRN PRN Reason: Anxiety Last Admin: 07/29/24 02:10 Dose: 1 mg Documented By: ADIA Metoclopramide HCl (Metoclopramide Hcl 10 Mg/2 Ml Vial) 5 mg IVPUSH TID [facility] Last Admin: 07/29/24 07:39 Dose: 5 mg Documented By: THUY Metoprolol Tartrate (Metoprolol Tartrate 25 Mg Tablet) 25 mg PO BID [facility]; Protocol Last Admin: 07/29/24 07:38 Dose: 25 mg Documented By: THUY Omeprazole (Omeprazole 20 Mg Capsule.Dr) 20 mg PO BID@0630,1630 [facility] Last Admin: 07/29/24 05:39 Dose: 20 mg Documented By: ADIA Risperidone (Risperidone 2 Mg Tablet) 2 mg PO BID [facility] Last Admin: 07/29/24 07:39 Dose: 2 mg Documented By: THUY Sodium Chloride (0.9 % Sodium Chloride Flush 3 Ml Syringe) 3 ml IVFLUSH QSHIFT [facility] Last Admin: 07/29/24 07:51 Dose: Not Given Documented By: THUY Non-Admin Reason: IV Running Zolpidem Tartrate (Zolpidem Tartrate 5 Mg Tablet) 5 mg PO BEDTIME [facility] Last Admin: 07/28/24 21:38 Dose: 5 mg Documented By: ADIA Labs 07/29/24 06:03 07/29/24 06:03 Labs: Laboratory Results - last 24 hr 07/28/24 07/28/24 07/28/24 11:06 16:23 20:00 MCV MCH MCHC RDW Plt Count MPV Immature Gran % (Auto) Neut % (Auto) Lymph % (Auto) [place] % (Auto) Eos % (Auto) Baso % (Auto) Lymph # (Auto) [place] # (Auto) Eos # (Auto) Baso # (Auto) Abs Immat Gran (auto) Absolute Neuts (auto) Absolute Nucleated RBC Nucleated RBC % (auto) Smear Tech's Comments Anion Gap Estim Creat Clear Calc Estimated GFR POC Glucose 235 H 216 H 207 H Random Glucose Calcium 07/29/24 07/29/24 07/29/24 02:20 06:03 07:01 MCV 79.4 L MCH 26.9 L MCHC 33.9 RDW 15.2 Plt Count 394 MPV 10.6 Immature Gran % (Auto) 0.3 Neut % (Auto) 60.9 Lymph % (Auto) 30.5 [place] % (Auto) 6.1 Eos % (Auto) 1.7 Baso % (Auto) 0.5 Lymph # (Auto) 2.8 [place] # (Auto) 0.6 Eos # (Auto) 0.2 Baso # (Auto) 0.1 Abs Immat Gran (auto) 0.03 Absolute Neuts (auto) 5.6 Absolute Nucleated RBC 0.000 Nucleated RBC % (auto) 0.0 Smear Tech's Comments VERIFIED Anion Gap 16 Estim Creat Clear Calc 72.5 Estimated GFR > 60 POC Glucose 154 H 272 H Random Glucose 276 H Calcium 8.6 Microbiology Microbiology Results: Microbiology 07/23/24 19:29 Blood Culture - Final Blood - Venous No growth after 5 days. 07/23/24 13:09 Blood Culture - Final Blood - Venous No growth after 5 days. Assessment and Plan (1) Type 1 diabetes: Status: Acute (2) Type 1 diabetes: Status: Acute (3) Intractable vomiting: Status: Acute (4) Diabetic gastroparesis: Status: Acute Plan 48F PMH DM1 with gastroparesis and multiple hospital admisisons for N/V, mood disorder presented with N/V Gastroparesis with intractable abdominal pain and vomiting. advanced to solids continue IVF Dilaudid IV Reglan 5 mg IV t.i.d. Famotidine IV bid Ativan for anxiety Diabetes on insulin pump pump on hold Lantus and insulin sliding scale Chronic anemia. monitor H&H. mood disorder risperdal, lamictal DVT prophylaxis: Lovenox Code status: Full Patient will need hospitalization overnight for gastroparesis treatment with antiemetic therapy, pain control with IV analgesia, IV fluids and glucose control with insulin. Quality Stroke Does the patient have a stroke diagnosis?: No VTE Prior VTE?: No VTE Risk Level:: Medical - moderate - high VTE Device Contraindication: Treatment Not Indicated VTE Drug Contraindication: N/A - Med Ordered
[2024-07-29 11:27] LABS: Glucose, Whole Blood 159 mg/dL (60-115)
[2024-07-29] MEDS: HYDROmorphone HCl 1 MG/ML SYRINGE IVPUSH ×3 (11:27→23:07)
--- NOTE | 2024-07-29 11:58 | MHC.CM.PN ---
Per MD rounds patient is not medically cleared to discharge. Patient needs hospitalization for gastroparesis with antiemetic therapy. Pain management requires IV analgesia. DP home selfcare. Patients spouse will provide transportation home.
[2024-07-29 15:18] VITALS: BP 113/64; PULSE 78; RESP 18; TEMP 36.4; O2SAT 97
[2024-07-29 16:15] LABS: Glucose, Whole Blood 223 mg/dL (60-115)
[2024-07-29 19:14] VITALS: BP 125/67; PULSE 82; RESP 18; TEMP 36.7; O2SAT 100
[2024-07-29 20:22] LABS: Glucose, Whole Blood 164 mg/dL (60-115)
[2024-07-29 21:26] VITALS: BP 127/70; PULSE 80
[2024-07-29] MEDS: 0.9 % Sodium Chloride Flush 3 ML SYRINGE IVFLUSH (21:31)
[2024-07-29] MEDS: Zolpidem Tartrate 5 MG TABLET PO (22:01)
[2024-07-29 23:37] VITALS: RESP 18
[2024-07-30] VITALS (7 sets, daily range): BP systolic 90–131; BP diastolic 54–74; PULSE 75–93; RESP 12–18; TEMP 36.6–37.1; O2SAT 97–99
[2024-07-30] MEDS: LORazepam 1 MG TABLET PO (02:17)
[2024-07-30 06:04] LABS: Hematocrit 31.8 % (37.0-47.0); Hemoglobin 10.4 g/dl (12.0-16.0); Mean Corpuscular HGB Conc 32.7 g/dl (31.0-35.0); Mean Corpuscular Volume 82.6 fL (80.0-98.0); Mean Platelet Volume 8.8 fL (9.4-12.3); Platelet Count 511 X10*3/uL (160-400); Red Blood Count 3.85 X10*6/uL (4.20-5.50); Red Cell Distribution Width 15.5 % (11.0-16.0); White Blood Count 9.8 X10*3/uL (4.8-10.8)
[2024-07-30 06:20] LABS: Anion Gap 11 (12-20); Blood Urea Nitrogen 4 mg/dL (9-16); Calcium 8.9 mg/dL (8.4-10.2); Carbon Dioxide 28 mmol/L (22-29); Chloride 103 mmol/L (96-108); Creatinine Clr Calc Pharmacy 75.3; Estimated Glomerular Filt Rate > 60; Glucose Random 221 mg/dL (60-115); Magnesium 1.8 mg/dL (1.6-2.6); Potassium 3.2 mmol/L (3.3-5.1); Sodium 139 mmol/L (135-145)
[2024-07-30 07:44] LABS: Glucose, Whole Blood 260 mg/dL (60-115)
[2024-07-30] MEDS: HYDROmorphone HCl 1 MG/ML SYRINGE IVPUSH ×4 (08:13→22:26)
[2024-07-30] MEDS: diphenhydrAMINE HCL 50 MG/ML VIAL 25 MG IVPUSH ×3 (08:14→21:51)
[2024-07-30] MEDS: Metoclopramide HCl 10 MG/2 ML VIAL 5 MG IVPUSH ×3 (08:14→21:51)
[2024-07-30] MEDS: Famotidine/PF 20 MG/2 ML VIAL IVPUSH ×2 (08:14→21:50)
[2024-07-30] MEDS: Insulin Lispro 100 UNIT/ML 3 ML VIAL SUBCUT ×2 (08:21→17:53)
[2024-07-30] MEDS: Insulin Glargine,Hum.rec.anlog 100 UNIT/ML 10 ML VIAL 10 UNIT SUBCUT (08:22)
[2024-07-30] MEDS: risperiDONE 2 MG TABLET PO ×2 (08:22→21:50)
[2024-07-30] MEDS: lamoTRIgine 100 MG TABLET 200 MG PO ×2 (08:22→21:50)
[2024-07-30] MEDS: Metoprolol Tartrate 25 MG TABLET PO (08:22)
[2024-07-30] MEDS: Enoxaparin Sodium 40 MG/0.4 ML SYRINGE SUBCUT (08:22)
[2024-07-30] MEDS: Omeprazole 20 MG CAPSULE.DR PO ×2 (08:22→15:45)
[2024-07-30] MEDS: Lactated Ringers 1,000 ML 100 ML IVCONT ×2 (08:30→23:14)
--- NOTE | 2024-07-30 09:47 | P.PNIM_ITS ---
Subjective Subjective Date of Service: 07/30/24 Interval History: still with n/v Physical Exam 2 Vital Signs: Vital Signs: Last Vital Signs Temp 97.8 F 07/30/24 07:23 Pulse 93 07/30/24 07:23 Resp 12 07/30/24 07:23 BP 128/74 07/30/24 07:23 Pulse Ox 98 07/30/24 07:23 O2 Del Method Room Air 07/30/24 07:23 BMI result Body Mass Index 24.0 Const: Other: Constitutional : Awake, interactive, in mild distress, anxious Neck : Normal inspection, Supple Cardiovascular : RRR, no JVP, no lower extremity edema Respiratory : good bilateral air entry, no crackles, wheezes or rhonchi Gastrointestinal: soft, lax, Normal bowel sounds, mild epigastric tenderness Skin : Warm, Dry Neurological : Alert & oriented x3, No focal deficit Objective Data Active Medications Diphenhydramine HCl (Diphenhydramine Hcl 50 Mg/Ml Vial) 25 mg IVPUSH Q6H PRN PRN Reason: Nausea\Allergy Last Admin: 07/29/24 05:45 Dose: 25 mg Documented By: ADIA Diphenhydramine HCl (Diphenhydramine Hcl 50 Mg/Ml Vial) 25 mg IVPUSH BID [facility] Last Admin: 07/30/24 08:14 Dose: 25 mg Documented By: LAURA Enoxaparin Sodium (Enoxaparin Sodium 40 Mg/0.4 Ml Syringe) 40 mg SUBCUT Q24H [facility] Last Admin: 07/30/24 08:22 Dose: 40 mg Documented By: LAURA Famotidine (Famotidine/Pf 20 Mg/2 Ml Vial) 20 mg IVPUSH BID [facility] Last Admin: 07/30/24 08:14 Dose: 20 mg Documented By: LAURA Glucose (Glucose Gel 15 Gm Gel..Gram.) 15 gm PO Q15M PRN; Protocol PRN Reason: per Hypoglycemia Standing Ord. Hydromorphone HCl (Hydromorphone Hcl 1 Mg/Ml Syringe) 1 mg IVPUSH Q4H PRN; Protocol PRN Reason: Pain, Severe (Pain Scale 7-10) Last Admin: 07/30/24 08:13 Dose: 1 mg Documented By: LAURA Dextrose (D10) 250 mls @ 750 mls/hr IV Q15M PRN; Protocol PRN Reason: per Hypoglycemia Standing Ord. Lactated Ringer's (Lr) 1,000 mls @ 100 mls/hr IVCONT .Q10H [facility] Last Admin: 07/30/24 08:30 Dose: 100 mls/hr Documented By: LAURA Potassium Chloride (Potassium Chloride/H20) 10 meq in 100 mls @ 100 mls/hr IV Q1H [facility] Stop: 07/30/24 12:44 Insulin Glargine (Insulin Glargine,Hum.Rec.Anlog 100 Unit/Ml 10 Ml Vial) 10 unit SUBCUT DAILY [facility] Last Admin: 07/30/24 08:22 Dose: 10 unit Documented By: LAURA Insulin Human Lispro (Insulin Lispro 100 Unit/Ml 3 Ml Vial) 0 unit SUBCUT QIDACHS [facility]; Protocol Last Admin: 07/30/24 08:21 Dose: 6 unit Documented By: LAURA Lamotrigine (Lamotrigine 100 Mg Tablet) 200 mg PO BID [facility] Last Admin: 07/30/24 08:22 Dose: 200 mg Documented By: LAURA Lorazepam (Lorazepam 1 Mg Tablet) 1 mg PO TID PRN PRN Reason: Anxiety Last Admin: 07/30/24 02:17 Dose: 1 mg Documented By: DON Metoclopramide HCl (Metoclopramide Hcl 10 Mg/2 Ml Vial) 5 mg IVPUSH TID [facility] Last Admin: 07/30/24 08:14 Dose: 5 mg Documented By: LAURA Metoprolol Tartrate (Metoprolol Tartrate 25 Mg Tablet) 25 mg PO BID [facility]; Protocol Last Admin: 07/30/24 08:22 Dose: 25 mg Documented By: LAURA Omeprazole (Omeprazole 20 Mg Capsule.Dr) 20 mg PO BID@0630,1630 [facility] Last Admin: 07/30/24 08:22 Dose: 20 mg Documented By: LAURA Risperidone (Risperidone 2 Mg Tablet) 2 mg PO BID [facility] Last Admin: 07/30/24 08:22 Dose: 2 mg Documented By: LAURA Sodium Chloride (0.9 % Sodium Chloride Flush 3 Ml Syringe) 3 ml IVFLUSH QSHIFT [facility] Last Admin: 07/30/24 08:23 Dose: Not Given Documented By: LAURA Non-Admin Reason: IV Running Zolpidem Tartrate (Zolpidem Tartrate 5 Mg Tablet) 5 mg PO BEDTIME PRN PRN Reason: Insomnia Last Admin: 07/29/24 22:01 Dose: 5 mg Documented By: DON Labs 07/30/24 05:31 07/30/24 05:31 Labs: Laboratory Results - last 24 hr 07/29/24 07/29/24 07/29/24 11:23 16:12 20:18 MCV MCH MCHC RDW Plt Count MPV Absolute Nucleated RBC Nucleated RBC % (auto) Anion Gap Estim Creat Clear Calc Estimated GFR POC Glucose 159 H 223 H 164 H Random Glucose Calcium Magnesium 07/30/24 07/30/24 05:31 07:20 MCV 82.6 MCH 27.0 MCHC 32.7 RDW 15.5 Plt Count 511 H D MPV 8.8 L Absolute Nucleated RBC 0.000 Nucleated RBC % (auto) 0.0 Anion Gap 11 L Estim Creat Clear Calc 75.3 Estimated GFR > 60 POC Glucose 260 H Random Glucose 221 H Calcium 8.9 Magnesium 1.8 Assessment and Plan (1) Type 1 diabetes: Status: Acute (2) Type 1 diabetes: Status: Acute (3) Intractable vomiting: Status: Acute (4) Diabetic gastroparesis: Status: Acute Plan 48F PMH DM1 with gastroparesis and multiple hospital admisisons for N/V, mood disorder presented with N/V Gastroparesis with intractable abdominal pain and vomiting. advanced to solids continue IVF Dilaudid IV Reglan 5 mg IV t.i.d. Famotidine IV bid Ativan for anxiety Diabetes on insulin pump pump on hold Lantus and insulin sliding scale Chronic anemia. monitor H&H. mood disorder risperdal, lamictal DVT prophylaxis: Lovenox Code status: Full Patient will need hospitalization overnight for gastroparesis treatment with antiemetic therapy, pain control with IV analgesia, IV fluids and glucose control with insulin. Quality Stroke Does the patient have a stroke diagnosis?: No VTE Prior VTE?: No VTE Risk Level:: Medical - moderate - high VTE Device Contraindication: Treatment Not Indicated VTE Drug Contraindication: N/A - Med Ordered
[2024-07-30] MEDS: Potassium Chloride/H20 10 MEQ/100 ML PIGGYBACK 100 MEQ IV ×4 (09:51→13:30)
[2024-07-30 11:15] LABS: Glucose, Whole Blood 172 mg/dL (60-115)
[2024-07-30] MEDS: 0.9 % Sodium Chloride Flush 3 ML SYRINGE IVFLUSH ×2 (15:49→21:52)
[2024-07-30 16:21] LABS: Glucose, Whole Blood 214 mg/dL (60-115)
[2024-07-30 20:47] LABS: Glucose, Whole Blood 146 mg/dL (60-115)
[2024-07-31] MEDS: HYDROmorphone HCl 1 MG/ML SYRINGE IVPUSH ×5 (03:17→22:13)
[2024-07-31 03:47] VITALS: RESP 18
[2024-07-31 04:00] VITALS: BP 95/51; PULSE 89; RESP 18; TEMP 36.2; O2SAT 94
[2024-07-31] MEDS: Omeprazole 20 MG CAPSULE.DR PO ×2 (05:31→17:09)
[2024-07-31 06:12] LABS: Hemoglobin 9.2 g/dl (12.0-16.0); Mean Corpuscular HGB Conc 32.9 g/dl (31.0-35.0); Mean Corpuscular Hemoglobin 27.1 pg (27.0-33.0); Mean Corpuscular Volume 82.4 fL (80.0-98.0); Mean Platelet Volume 8.9 fL (9.4-12.3); Platelet Count 477 X10*3/uL (160-400); Red Cell Distribution Width 15.7 % (11.0-16.0); White Blood Count 9.2 X10*3/uL (4.8-10.8)
[2024-07-31 06:29] LABS: Anion Gap 11 (12-20); Blood Urea Nitrogen 4 mg/dL (9-16); Calcium 8.4 mg/dL (8.4-10.2); Carbon Dioxide 28 mmol/L (22-29); Chloride 101 mmol/L (96-108); Creatinine Clr Calc Pharmacy 79.4; Estimated Glomerular Filt Rate > 60; Glucose Random 326 mg/dL (60-115); Magnesium 1.6 mg/dL (1.6-2.6); Potassium 3.5 mmol/L (3.3-5.1); Sodium 136 mmol/L (135-145)
[2024-07-31 07:43] LABS: Glucose, Whole Blood 295 mg/dL (60-115)
[2024-07-31 08:09] VITALS: BP 114/61; PULSE 107; RESP 18; TEMP 36.4; O2SAT 97
[2024-07-31] MEDS: diphenhydrAMINE HCL 50 MG/ML VIAL 25 MG IVPUSH ×3 (08:44→20:25)
[2024-07-31] MEDS: Famotidine/PF 20 MG/2 ML VIAL IVPUSH ×2 (08:44→20:24)
[2024-07-31] MEDS: Insulin Glargine,Hum.rec.anlog 100 UNIT/ML 10 ML VIAL 10 UNIT SUBCUT (08:45)
[2024-07-31] MEDS: Enoxaparin Sodium 40 MG/0.4 ML SYRINGE SUBCUT (08:45)
[2024-07-31] MEDS: Metoprolol Tartrate 25 MG TABLET PO ×2 (08:45→20:23)
[2024-07-31] MEDS: Metoclopramide HCl 10 MG/2 ML VIAL 5 MG IVPUSH ×3 (08:45→20:25)
[2024-07-31] MEDS: Insulin Lispro 100 UNIT/ML 3 ML VIAL SUBCUT ×4 (08:45→20:23)
[2024-07-31] MEDS: lamoTRIgine 100 MG TABLET 200 MG PO ×2 (08:46→20:23)
[2024-07-31] MEDS: risperiDONE 2 MG TABLET PO ×2 (08:46→20:23)
[2024-07-31] MEDS: Lactated Ringers 1,000 ML 100 ML IVCONT ×2 (08:59→20:30)
--- NOTE | 2024-07-31 09:09 | HO.PM.IMPN ---
Subjective Subjective Date of Service: 07/31/24 Interval History: still with n/v Physical Exam Vital Signs: Vital Signs: Last Vital Signs Temp 97.5 F 07/31/24 08:09 Pulse 107 H 07/31/24 08:09 Resp 18 07/31/24 08:09 BP 114/61 07/31/24 08:09 Pulse Ox 97 07/31/24 08:09 O2 Del Method Room Air 07/31/24 08:09 BMI result Body Mass Index 24.0 Const: Other: Constitutional : Awake, interactive, in mild distress, anxious Neck : Normal inspection, Supple Cardiovascular : RRR, no JVP, no lower extremity edema Respiratory : good bilateral air entry, no crackles, wheezes or rhonchi Gastrointestinal: soft, lax, Normal bowel sounds, mild epigastric tenderness Skin : Warm, Dry Neurological : Alert & oriented x3, No focal deficit Objective Data Active Medications Diphenhydramine HCl (Diphenhydramine Hcl 50 Mg/Ml Vial) 25 mg IVPUSH Q6H PRN PRN Reason: Nausea\Allergy Last Admin: 07/30/24 11:08 Dose: 25 mg Documented By: LAURA Diphenhydramine HCl (Diphenhydramine Hcl 50 Mg/Ml Vial) 25 mg IVPUSH BID [facility] Last Admin: 07/31/24 08:44 Dose: 25 mg Documented By: LAURA Enoxaparin Sodium (Enoxaparin Sodium 40 Mg/0.4 Ml Syringe) 40 mg SUBCUT Q24H [facility] Last Admin: 07/31/24 08:45 Dose: 40 mg Documented By: LAURA Famotidine (Famotidine/Pf 20 Mg/2 Ml Vial) 20 mg IVPUSH BID [facility] Last Admin: 07/31/24 08:44 Dose: 20 mg Documented By: LAURA Glucose (Glucose Gel 15 Gm Gel..Gram.) 15 gm PO Q15M PRN; Protocol PRN Reason: per Hypoglycemia Standing Ord. Hydromorphone HCl (Hydromorphone Hcl 1 Mg/Ml Syringe) 1 mg IVPUSH Q4H PRN; Protocol PRN Reason: Pain, Severe (Pain Scale 7-10) Last Admin: 07/31/24 08:44 Dose: 1 mg Documented By: LAURA Dextrose (D10) 250 mls @ 750 mls/hr IV Q15M PRN; Protocol PRN Reason: per Hypoglycemia Standing Ord. Lactated Ringer's (Lr) 1,000 mls @ 100 mls/hr IVCONT .Q10H [facility] Last Admin: 07/31/24 08:59 Dose: 100 mls/hr Documented By: LAURA Magnesium Sulfate (Magnesium Sulfate/H2o) 2 gm in 50 mls @ 25 mls/hr IV ONCE ONE Stop: 07/31/24 11:06 Insulin Glargine (Insulin Glargine,Hum.Rec.Anlog 100 Unit/Ml 10 Ml Vial) 10 unit SUBCUT DAILY [facility] Last Admin: 07/31/24 08:45 Dose: 10 unit Documented By: LAURA Insulin Human Lispro (Insulin Lispro 100 Unit/Ml 3 Ml Vial) 0 unit SUBCUT QIDACHS [facility]; Protocol Last Admin: 07/31/24 08:45 Dose: 6 unit Documented By: LAURA Lamotrigine (Lamotrigine 100 Mg Tablet) 200 mg PO BID [facility] Last Admin: 07/31/24 08:46 Dose: 200 mg Documented By: LAURA Lorazepam (Lorazepam 1 Mg Tablet) 1 mg PO TID PRN PRN Reason: Anxiety Last Admin: 07/30/24 02:17 Dose: 1 mg Documented By: DON Metoclopramide HCl (Metoclopramide Hcl 10 Mg/2 Ml Vial) 5 mg IVPUSH TID [facility] Last Admin: 07/31/24 08:45 Dose: 5 mg Documented By: LAURA Metoprolol Tartrate (Metoprolol Tartrate 25 Mg Tablet) 25 mg PO BID [facility]; Protocol Last Admin: 07/31/24 08:45 Dose: 25 mg Documented By: LAURA Omeprazole (Omeprazole 20 Mg Capsule.) 20 mg PO BID@0630,1630 [facility] Last Admin: 07/31/24 05:31 Dose: 20 mg Documented By: DON Risperidone (Risperidone 2 Mg Tablet) 2 mg PO BID [facility] Last Admin: 07/31/24 08:46 Dose: 2 mg Documented By: LAURA Sodium Chloride (0.9 % Sodium Chloride Flush 3 Ml Syringe) 3 ml IVFLUSH QSHIFT [facility] Last Admin: 07/31/24 08:46 Dose: Not Given Documented By: LAURA Non-Admin Reason: IV Running Zolpidem Tartrate (Zolpidem Tartrate 5 Mg Tablet) 5 mg PO BEDTIME PRN PRN Reason: Insomnia Last Admin: 07/29/24 22:01 Dose: 5 mg Documented By: DON Labs 07/31/24 05:27 07/31/24 05:27 Labs: Laboratory Results - last 24 hr 07/30/24 07/30/24 07/30/24 11:11 16:17 20:44 MCV MCH MCHC RDW Plt Count MPV Absolute Nucleated RBC Nucleated RBC % (auto) Anion Gap Estim Creat Clear Calc Estimated GFR POC Glucose 172 H 214 H 146 H Random Glucose Calcium Magnesium 07/31/24 07/31/24 05:27 07:38 MCV 82.4 MCH 27.1 MCHC 32.9 RDW 15.7 Plt Count 477 H MPV 8.9 L Absolute Nucleated RBC 0.000 Nucleated RBC % (auto) 0.0 Anion Gap 11 L Estim Creat Clear Calc 79.4 Estimated GFR > 60 POC Glucose 295 H Random Glucose 326 H Calcium 8.4 Magnesium 1.6 Assessment and Plan (1) Type 1 diabetes: Status: Acute (2) Type 1 diabetes: Status: Acute (3) Intractable vomiting: Status: Acute (4) Diabetic gastroparesis: Status: Acute Plan 48F PMH DM1 with gastroparesis and multiple hospital admisisons for N/V, mood disorder presented with N/V Gastroparesis with intractable abdominal pain and vomiting. advanced to solids continue IVF Dilaudid IV Reglan 5 mg IV t.i.d. Famotidine IV bid Ativan for anxiety Diabetes on insulin pump pump on hold Lantus and insulin sliding scale acute hpyomagnesemia, hypokalemia replacing Chronic anemia. monitor H&H. mood disorder risperdal, lamictal DVT prophylaxis: Lovenox Code status: Full Patient will need hospitalization overnight for gastroparesis treatment with antiemetic therapy, pain control with IV analgesia, IV fluids and glucose control with insulin. Quality Stroke Does the patient have a stroke diagnosis?: No VTE Prior VTE?: No VTE Risk Level:: Medical - moderate - high VTE Device Contraindication: Treatment Not Indicated VTE Drug Contraindication: N/A - Med Ordered
[2024-07-31] MEDS: LORazepam 2 MG/ML VIAL 1 MG IVPUSH (10:15)
[2024-07-31] MEDS: Magnesium Sulfate/H2O 2 GM/50 ML PIGGYBACK IV (10:15)
--- NOTE | 2024-07-31 10:24 | MHC.CM.PN ---
PER MD ROUNDS, PT NOT MEDICALLY READY DUE TO NAUSEA/POOR PO INTAKE DCP REMAINS HOME WITH NO SERVICES VIA PRIVATE TRANSPORT
[2024-07-31 11:47] LABS: Glucose, Whole Blood 212 mg/dL (60-115)
[2024-07-31 14:39] LABS: Glucose, Whole Blood 60 mg/dL (60-115)
[2024-07-31] MEDS: Dextrose 10 % 250 ML 750 ML IV (14:43)
[2024-07-31] MEDS: 0.9 % Sodium Chloride Flush 3 ML SYRINGE IVFLUSH ×2 (14:47→20:26)
[2024-07-31 15:28] VITALS: BP 94/53; PULSE 80; RESP 18; TEMP 36.1; O2SAT 99
[2024-07-31 16:04] LABS: Glucose, Whole Blood 216 mg/dL (60-115)
[2024-07-31 19:23] LABS: Glucose, Whole Blood 226 mg/dL (60-115)
[2024-07-31 19:36] VITALS: BP 122/66; PULSE 83; RESP 18; TEMP 36.6; O2SAT 99
[2024-07-31] MEDS: Zolpidem Tartrate 5 MG TABLET PO (22:12)
[2024-07-31 22:43] VITALS: RESP 18
[2024-08-01] VITALS (10 sets, daily range): BP systolic 105–154; BP diastolic 59–73; PULSE 75–95; RESP 14–20; TEMP 36.1–36.5; O2SAT 95–99
[2024-08-01] MEDS: HYDROmorphone HCl 1 MG/ML SYRINGE IVPUSH ×6 (02:03→22:20)
[2024-08-01] MEDS: Lactated Ringers 1,000 ML 100 ML IVCONT ×2 (05:58→16:39)
[2024-08-01] MEDS: Omeprazole 20 MG CAPSULE.DR PO ×2 (05:58→16:31)
[2024-08-01 07:38] LABS: Glucose, Whole Blood 223 mg/dL (60-115)
[2024-08-01] MEDS: Famotidine/PF 20 MG/2 ML VIAL IVPUSH ×2 (07:48→21:25)
[2024-08-01] MEDS: Metoclopramide HCl 10 MG/2 ML VIAL 5 MG IVPUSH ×3 (07:48→21:23)
[2024-08-01] MEDS: diphenhydrAMINE HCL 50 MG/ML VIAL 25 MG IVPUSH ×4 (07:49→23:59)
[2024-08-01] MEDS: lamoTRIgine 100 MG TABLET 200 MG PO ×2 (07:49→21:27)
[2024-08-01] MEDS: risperiDONE 2 MG TABLET PO ×2 (07:49→21:27)
[2024-08-01] MEDS: Metoprolol Tartrate 25 MG TABLET PO ×2 (07:49→21:27)
[2024-08-01] MEDS: Midodrine HCl 5 MG TABLET PO (07:49)
[2024-08-01] MEDS: Enoxaparin Sodium 40 MG/0.4 ML SYRINGE SUBCUT (07:50)
[2024-08-01] MEDS: Insulin Lispro 100 UNIT/ML 3 ML VIAL SUBCUT ×3 (07:50→21:26)
[2024-08-01] MEDS: Insulin Glargine,Hum.rec.anlog 100 UNIT/ML 10 ML VIAL 10 UNIT SUBCUT (07:50)
[2024-08-01] MEDS: LORazepam 1 MG TABLET PO (08:01)
--- NOTE | 2024-08-01 08:59 | P.DS_ITS ---
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 She also was complaining of nausea and vomiting and diarrhea. She smokes marijuana. Did not report illicit drug use. In the ED, she was found to have mild tachycardia. Last blood pressure 182/97 and currently seems to be very uncomfortable due to pain. There is no fever reported. She was initially found to have a glucose of 56 -her own insulin pump was discontinued. Last blood glucose reported is 372 (last night at 9 PM). There is leukocytosis of 14.9. Hemoglobin is 11.1 and platelets 563. Venous pH is 7.56. There are no electrolyte imbalances or lactic acidosis. Beta hydroxybutyrate is 1.35 and test is negative. Viral testing for COVID 19, RSV and influenza is negative. CXR is negative. Abdominal pelvis CT scan showed moderate constipation. Head CT scan showed no acute intracranial abnormalities. ED tx: LR 2 L bolus, Benadryl 25 mg IV, Reglan 10 mg IV, famotidine 20 mg IV Hospital course Patient was admitted for gastroparesis due to type 1 diabetes with intractable abdominal pain and vomiting. Was treated with IV fluids, Dilaudid, Reglan and diet slowly advanced the point where she can reliably obtain nutrition and hydration at home. For diabetes was given basal bolus insulin we will continue on insulin pump at home. For acute hypomagnesemia and hypokalemia received replacement. For chronic anemia remained stable. For mood disorder was continued on Risperdal and Lamictal. Patient is feeling better will be discharged home. Time Attestation Discharge Coordination Time (in mins): 32 Quality: Safe Use of Opioids Does Pt have an Active Cancer Diagnosis on the Problem List?: No Quality: Stroke Does the patient have a stroke diagnosis?: No Physical Exam Vital Signs: Vital Signs: Last Vital Signs Temp 97.7 F 08/01/24 07:28 Pulse 86 08/01/24 07:28 Resp 18 08/01/24 07:28 BP 154/73 H 08/01/24 07:28 Pulse Ox 96 08/01/24 07:28 O2 Del Method Room Air 08/01/24 07:28 BMI result Body Mass Index 24.0 Const: Other: Constitutional : Awake, interactive, in mild distress, anxious Neck : Normal inspection, Supple Cardiovascular : RRR, no JVP, no lower extremity edema Respiratory : good bilateral air entry, no crackles, wheezes or rhonchi Gastrointestinal: soft, lax, Normal bowel sounds, mild epigastric tenderness Skin : Warm, Dry Neurological : Alert & oriented x3, No focal deficit DS: Data Data Completed and Pending Labs on day of discharge: Laboratory Results - last 24 hr 07/31/24 07/31/24 07/31/24 11:37 14:35 16:00 POC Glucose 212 H 60 216 H 07/31/24 08/01/24 19:19 07:32 POC Glucose 226 H 223 H Discharge Plan Discharge Anticipated Discharge Date/Time: 07/28/24 12:31 Patient Disposition: Home, Self-Care Discharge Diagnosis: Nausea and vomiting Referrals: Yulisa Dyson MD [Primary Care Provider] - 1 Week Discharge Medications: New hydromorphone 2 mg tablet 2 mg PO Q6H PRN (Reason: pain (scale score 7-10)) Qty: 20 0RF Rx Instructions: Partial Fill upon patient request. Continued metoprolol tartrate 25 mg tablet 25 mg PO BID Qty: 180 1RF midodrine 5 mg tablet 5 mg PO DAILY Qty: 90 2RF lorazepam 1 mg Tablet 1 mg PO TID PRN (Reason: Anxiety) lamotrigine 200 mg Tablet 200 mg PO BID zolpidem 10 mg Tablet 10 mg PO BEDTIME risperidone 2 mg tablet 2 mg PO BID insulin aspart U-100 [Novolog U-100 Insulin aspart] 100 unit/mL solution 0 - 100 unit subcut DAILY ondansetron 4 mg tablet,disintegrating 4 mg PO Q8H PRN (Reason: nausea and vomiting) Qty: 20 0RF omeprazole 20 mg capsule,delayed release(DR/EC) 20 mg PO BID@0630,1630 Discharge Orders: Discharge Order (Routine); Ordered 08/02/24 Ordered By: Bebeto Marie Diet: Advance to usual diet Activity on Discharge: As tolerated Stand Alone Forms: Patient Portal Discharge page Print Language: [place] Care Plan Goals: Take Zofran as needed Advance your diet as tolerated Stop using THC products Benadryl as needed for nausea as well Health Concerns: Intractable nausea and vomiting Plan of Treatment: Zofran gradually advance diet Assessment: as above
--- NOTE | 2024-08-01 10:25 | MHC.CM.PN ---
Addendum entered by Alma Enrique 08/02/24 08:56: DC HELD YESTERDAY PENDING IMPROVED PO INTAKE TOLERANCE Original Note: PT WILL DC HOME TODAY WITH NO SERVICES VIA PRIVATE TRANSPORT
[2024-08-01 11:35] LABS: Glucose, Whole Blood 142 mg/dL (60-115)
--- NOTE | 2024-08-01 13:24 | P.PNIM_ITS ---
Subjective Subjective Date of Service: 08/01/24 Interval History: still with n/v Physical Exam 2 Vital Signs: Vital Signs: Last Vital Signs Temp 97.7 F 08/01/24 07:28 Pulse 86 08/01/24 07:28 Resp 18 08/01/24 07:28 BP 154/73 H 08/01/24 07:28 Pulse Ox 96 08/01/24 07:28 O2 Del Method Room Air 08/01/24 07:28 BMI result Body Mass Index 24.0 Const: Other: Constitutional : Awake, interactive, in mild distress, anxious Neck : Normal inspection, Supple Cardiovascular : RRR, no JVP, no lower extremity edema Respiratory : good bilateral air entry, no crackles, wheezes or rhonchi Gastrointestinal: soft, lax, Normal bowel sounds, mild epigastric tenderness Skin : Warm, Dry Neurological : Alert & oriented x3, No focal deficit Objective Data Active Medications Diphenhydramine HCl (Diphenhydramine Hcl 50 Mg/Ml Vial) 25 mg IVPUSH Q6H PRN PRN Reason: Nausea\Allergy Last Admin: 07/31/24 17:14 Dose: 25 mg Documented By: LAURA Diphenhydramine HCl (Diphenhydramine Hcl 50 Mg/Ml Vial) 25 mg IVPUSH BID [facility] Last Admin: 08/01/24 07:49 Dose: 25 mg Documented By: JOSE ANGEL Enoxaparin Sodium (Enoxaparin Sodium 40 Mg/0.4 Ml Syringe) 40 mg SUBCUT Q24H [facility] Last Admin: 08/01/24 07:50 Dose: 40 mg Documented By: JOSE ANGEL Famotidine (Famotidine/Pf 20 Mg/2 Ml Vial) 20 mg IVPUSH BID [facility] Last Admin: 08/01/24 07:48 Dose: 20 mg Documented By: JOSE ANGEL Glucose (Glucose Gel 15 Gm Gel..Gram.) 15 gm PO Q15M PRN; Protocol PRN Reason: per Hypoglycemia Standing Ord. Hydromorphone HCl (Hydromorphone Hcl 1 Mg/Ml Syringe) 1 mg IVPUSH Q4H PRN; Protocol PRN Reason: Pain, Severe (Pain Scale 7-10) Last Admin: 08/01/24 10:13 Dose: 1 mg Documented By: JOSE ANGEL Dextrose (D10) 250 mls @ 750 mls/hr IV Q15M PRN; Protocol PRN Reason: per Hypoglycemia Standing Ord. Last Infusion: 07/31/24 15:17 Dose: Infused Documented By: LAURA Lactated Ringer's (Lr) 1,000 mls @ 100 mls/hr IVCONT .Q10H [facility] Last Admin: 08/01/24 05:58 Dose: 100 mls/hr Documented By: JUAN JOSE Insulin Glargine (Insulin Glargine,Hum.Rec.Anlog 100 Unit/Ml 10 Ml Vial) 10 unit SUBCUT DAILY [facility] Last Admin: 08/01/24 07:50 Dose: 10 unit Documented By: JOSE ANGEL Insulin Human Lispro (Insulin Lispro 100 Unit/Ml 3 Ml Vial) 0 unit SUBCUT QIDACHS [facility]; Protocol Last Admin: 08/01/24 11:38 Dose: Not Given Documented By: JOSE ANGEL Non-Admin Reason: No Insulin Coverage Lamotrigine (Lamotrigine 100 Mg Tablet) 200 mg PO BID [facility] Last Admin: 08/01/24 07:49 Dose: 200 mg Documented By: JOSE ANGEL Lorazepam (Lorazepam 1 Mg Tablet) 1 mg PO TID PRN PRN Reason: Anxiety Last Admin: 08/01/24 08:01 Dose: 1 mg Documented By: JOSE ANGEL Metoclopramide HCl (Metoclopramide Hcl 10 Mg/2 Ml Vial) 5 mg IVPUSH TID [facility] Last Admin: 08/01/24 07:48 Dose: 5 mg Documented By: JOSE ANGEL Metoprolol Tartrate (Metoprolol Tartrate 25 Mg Tablet) 25 mg PO BID [facility]; Protocol Last Admin: 08/01/24 07:49 Dose: 25 mg Documented By: JOSE ANGEL Midodrine (Midodrine Hcl 5 Mg Tablet) 5 mg PO DAILY [facility] Last Admin: 08/01/24 07:49 Dose: 5 mg Documented By: JOSE ANGEL Omeprazole (Omeprazole 20 Mg Capsule.) 20 mg PO BID@0630,1630 [facility] Last Admin: 08/01/24 05:58 Dose: 20 mg Documented By: JUAN JOSE Risperidone (Risperidone 2 Mg Tablet) 2 mg PO BID [facility] Last Admin: 08/01/24 07:49 Dose: 2 mg Documented By: JOSE ANGEL Sodium Chloride (0.9 % Sodium Chloride Flush 3 Ml Syringe) 3 ml IVFLUSH QSHIFT [facility] Last Admin: 08/01/24 09:24 Dose: Not Given Documented By: JOSE ANGEL Non-Admin Reason: IV Running Zolpidem Tartrate (Zolpidem Tartrate 5 Mg Tablet) 5 mg PO BEDTIME PRN PRN Reason: Insomnia Last Admin: 07/31/24 22:12 Dose: 5 mg Documented By: JUAN JOSE Labs 07/31/24 05:27 07/31/24 05:27 Labs: Laboratory Results - last 24 hr 07/31/24 07/31/24 07/31/24 14:35 16:00 19:19 POC Glucose 60 216 H 226 H 08/01/24 08/01/24 07:32 11:23 POC Glucose 223 H 142 H Assessment and Plan (1) Type 1 diabetes: Status: Acute (2) Type 1 diabetes: Status: Acute (3) Intractable vomiting: Status: Acute (4) Diabetic gastroparesis: Status: Acute Plan 48F PMH DM1 with gastroparesis and multiple hospital admisisons for N/V, mood disorder presented with N/V Gastroparesis with intractable abdominal pain and vomiting. advanced to solids continue IVF Dilaudid IV Reglan 5 mg IV t.i.d. Famotidine IV bid Ativan for anxiety Diabetes on insulin pump pump on hold Lantus and insulin sliding scale acute hpyomagnesemia, hypokalemia replacing Chronic anemia. monitor H&H. mood disorder risperdal, lamictal DVT prophylaxis: Lovenox Code status: Full Patient will need hospitalization overnight for gastroparesis treatment with antiemetic therapy, pain control with IV analgesia, IV fluids and glucose control with insulin. Quality Stroke Does the patient have a stroke diagnosis?: No VTE Prior VTE?: No VTE Risk Level:: Medical - moderate - high VTE Device Contraindication: Treatment Not Indicated VTE Drug Contraindication: N/A - Med Ordered
[2024-08-01 16:27] LABS: Glucose, Whole Blood 238 mg/dL (60-115)
[2024-08-01 19:17] LABS: Glucose, Whole Blood 232 mg/dL (60-115)
[2024-08-01] MEDS: Zolpidem Tartrate 5 MG TABLET PO (22:20)
--- NOTE | 2024-08-01 23:08 | PC.NURSE ---
Assumed care of patient at 19:00. Patient is A&Ox4, drowsy though appropriately arousable. Breathing is even and unlabored without distress on room air. Only complaint is of abdominal pain still. Medicated with prn dilaudid per MAR with +effect per pt. Voiding cyu in bathroom with standby assist. Bed alarm on and in-room camera in place for safety. LR infusing per MAR. Please see shift assessment, tasks, and MAR for full details. Handoff report given to oncoming RN at 23:00.
[2024-08-01] MEDS: 0.9 % Sodium Chloride Flush 3 ML SYRINGE IVFLUSH (23:59)
[2024-08-02 03:42] VITALS: BP 117/64; PULSE 93; RESP 18; TEMP 36.2; O2SAT 94
[2024-08-02] MEDS: HYDROmorphone HCl 1 MG/ML SYRINGE IVPUSH ×2 (03:50→08:29)
[2024-08-02] MEDS: Lactated Ringers 1,000 ML 100 ML IVCONT (04:08)
[2024-08-02] MEDS: Omeprazole 20 MG CAPSULE.DR PO (06:38)
[2024-08-02 07:45] VITALS: BP 108/55; PULSE 87; RESP 18; TEMP 36.2; O2SAT 97
[2024-08-02 08:21] LABS: Glucose, Whole Blood 268 mg/dL (60-115)
[2024-08-02] MEDS: Metoprolol Tartrate 25 MG TABLET PO (08:29)
[2024-08-02] MEDS: Midodrine HCl 5 MG TABLET PO (08:29)
[2024-08-02] MEDS: lamoTRIgine 100 MG TABLET 200 MG PO (08:29)
[2024-08-02] MEDS: risperiDONE 2 MG TABLET PO (08:29)
[2024-08-02] MEDS: Metoclopramide HCl 10 MG/2 ML VIAL 5 MG IVPUSH ×2 (08:29→14:44)
[2024-08-02] MEDS: Famotidine/PF 20 MG/2 ML VIAL IVPUSH (08:29)
[2024-08-02] MEDS: Enoxaparin Sodium 40 MG/0.4 ML SYRINGE SUBCUT (08:30)
[2024-08-02] MEDS: 0.9 % Sodium Chloride Flush 3 ML SYRINGE IVFLUSH (08:31)
--- NOTE | 2024-08-02 08:43 | HO.PM.IMPN ---
Subjective Subjective Date of Service: 08/02/24 Interval History: vomited lunch yesterday Physical Exam Vital Signs: Vital Signs: Last Vital Signs Temp 97.2 F 08/02/24 07:45 Pulse 87 08/02/24 07:45 Resp 18 08/02/24 07:45 BP 108/55 L 08/02/24 07:45 Pulse Ox 97 08/02/24 07:45 O2 Del Method Room Air 08/02/24 07:45 BMI result Body Mass Index 24.0 Const: Other: Constitutional : Awake, interactive, in mild distress, anxious Neck : Normal inspection, Supple Cardiovascular : RRR, no JVP, no lower extremity edema Respiratory : good bilateral air entry, no crackles, wheezes or rhonchi Gastrointestinal: soft, lax, Normal bowel sounds, mild epigastric tenderness Skin : Warm, Dry Neurological : Alert & oriented x3, No focal deficit Objective Data Active Medications Diphenhydramine HCl (Diphenhydramine Hcl 50 Mg/Ml Vial) 25 mg IVPUSH Q6H PRN PRN Reason: Nausea\Allergy Last Admin: 08/01/24 23:59 Dose: 25 mg Documented By: RAY Diphenhydramine HCl (Diphenhydramine Hcl 50 Mg/Ml Vial) 25 mg IVPUSH BID [facility] Last Admin: 08/01/24 21:24 Dose: 25 mg Documented By: JUAN JOSE Enoxaparin Sodium (Enoxaparin Sodium 40 Mg/0.4 Ml Syringe) 40 mg SUBCUT Q24H [facility] Last Admin: 08/02/24 08:30 Dose: 40 mg Documented By: BRAYDEN Famotidine (Famotidine/Pf 20 Mg/2 Ml Vial) 20 mg IVPUSH BID [facility] Last Admin: 08/02/24 08:29 Dose: 20 mg Documented By: BRAYDEN Glucose (Glucose Gel 15 Gm Gel..Gram.) 15 gm PO Q15M PRN; Protocol PRN Reason: per Hypoglycemia Standing Ord. Hydromorphone HCl (Hydromorphone Hcl 1 Mg/Ml Syringe) 1 mg IVPUSH Q4H PRN; Protocol PRN Reason: Pain, Severe (Pain Scale 7-10) Last Admin: 08/02/24 08:29 Dose: 1 mg Documented By: BRAYDEN Dextrose (D10) 250 mls @ 750 mls/hr IV Q15M PRN; Protocol PRN Reason: per Hypoglycemia Standing Ord. Last Infusion: 07/31/24 15:17 Dose: Infused Documented By: LAURA Lactated Ringer's (Lr) 1,000 mls @ 100 mls/hr IVCONT .Q10H [facility] Last Admin: 08/02/24 04:08 Dose: 100 mls/hr Documented By: RAY Insulin Glargine (Insulin Glargine,Hum.Rec.Anlog 100 Unit/Ml 10 Ml Vial) 10 unit SUBCUT DAILY [facility] Last Admin: 08/01/24 07:50 Dose: 10 unit Documented By: JOSE ANGEL Insulin Human Lispro (Insulin Lispro 100 Unit/Ml 3 Ml Vial) 0 unit SUBCUT QIDACHS [facility]; Protocol Last Admin: 08/01/24 21:26 Dose: 4 unit Documented By: JUAN JOSE Lamotrigine (Lamotrigine 100 Mg Tablet) 200 mg PO BID [facility] Last Admin: 08/02/24 08:29 Dose: 200 mg Documented By: BRAYDEN Lorazepam (Lorazepam 1 Mg Tablet) 1 mg PO TID PRN PRN Reason: Anxiety Last Admin: 08/01/24 08:01 Dose: 1 mg Documented By: JOSE ANGEL Metoclopramide HCl (Metoclopramide Hcl 10 Mg/2 Ml Vial) 5 mg IVPUSH TID [facility] Last Admin: 08/02/24 08:29 Dose: 5 mg Documented By: BRAYDEN Metoprolol Tartrate (Metoprolol Tartrate 25 Mg Tablet) 25 mg PO BID [facility]; Protocol Last Admin: 08/01/24 21:27 Dose: 25 mg Documented By: JUAN JOSE Midodrine (Midodrine Hcl 5 Mg Tablet) 5 mg PO DAILY [facility] Last Admin: 08/02/24 08:29 Dose: 5 mg Documented By: BRAYDEN Omeprazole (Omeprazole 20 Mg Capsule.Dr) 20 mg PO BID@0630,1630 [facility] Last Admin: 08/02/24 06:38 Dose: 20 mg Documented By: RAY Risperidone (Risperidone 2 Mg Tablet) 2 mg PO BID [facility] Last Admin: 08/02/24 08:29 Dose: 2 mg Documented By: BRAYDEN Sodium Chloride (0.9 % Sodium Chloride Flush 3 Ml Syringe) 3 ml IVFLUSH QSHIFT [facility] Last Admin: 08/02/24 08:31 Dose: 3 ml Documented By: BRAYDEN Zolpidem Tartrate (Zolpidem Tartrate 5 Mg Tablet) 5 mg PO BEDTIME PRN PRN Reason: Insomnia Last Admin: 08/01/24 22:20 Dose: 5 mg Documented By: JUAN JOSE Labs 07/31/24 05:27 07/31/24 05:27 Labs: Laboratory Results - last 24 hr 08/01/24 08/01/24 08/01/24 11:23 16:22 19:13 POC Glucose 142 H 238 H 232 H 08/02/24 08:17 POC Glucose 268 H Assessment and Plan (1) Type 1 diabetes: Status: Acute (2) Type 1 diabetes: Status: Acute (3) Intractable vomiting: Status: Acute (4) Diabetic gastroparesis: Status: Acute Plan 48F PMH DM1 with gastroparesis and multiple hospital admisisons for N/V, mood disorder presented with N/V Gastroparesis with intractable abdominal pain and vomiting. advanced to solids continue IVF Dilaudid IV Reglan 5 mg IV t.i.d. Famotidine IV bid Ativan for anxiety Diabetes on insulin pump pump on hold Lantus and insulin sliding scale acute hpyomagnesemia, hypokalemia replacing Chronic anemia. monitor H&H. mood disorder risperdal, lamictal DVT prophylaxis: Lovenox Code status: Full reason for continued hospitalization: awaiting tolerance of po Quality Stroke Does the patient have a stroke diagnosis?: No VTE Prior VTE?: No VTE Risk Level:: Medical - moderate - high VTE Device Contraindication: Treatment Not Indicated VTE Drug Contraindication: N/A - Med Ordered
[2024-08-02] MEDS: Insulin Glargine,Hum.rec.anlog 100 UNIT/ML 10 ML VIAL 10 UNIT SUBCUT (08:45)
[2024-08-02] MEDS: Insulin Lispro 100 UNIT/ML 3 ML VIAL SUBCUT ×2 (08:45→12:51)
[2024-08-02] MEDS: diphenhydrAMINE HCL 50 MG/ML VIAL 25 MG IVPUSH (09:39)
[2024-08-02 11:57] LABS: Glucose, Whole Blood 186 mg/dL (60-115)
[2024-08-02] MEDS: Heparin Sodium,Porcine Flush 500 UNIT/5 ML SYRINGE IVFLUSH (14:44)
[2024-08-02 15:39] VITALS: BP 104/51; PULSE 86; RESP 20; TEMP 36.2; O2SAT 95
== END 2024-08-02 15:42 | disposition home or self-care (01) | DRG 74 ==
LOC: HO.ED 18:41 → HO.EDOVER 07-24 02:40 → HO.S3 07-24 12:09 → HO.EDOVER 07-24 12:34 → HO.S3 07-24 14:02
PROVIDERS: Emergency Medicine; Student in an Organized Health Care Education/Training Program; Admitting Provider Internal Medicine; Emergency Provider Emergency Medicine; PCP Internal Medicine; Visit Provider Internal Medicine
DX: E10.43 Type 1 diabetes mellitus with diabetic autonomic (poly)neuropathy (principal); K31.84 Gastroparesis; E87.6 Hypokalemia; E83.42 Hypomagnesemia; D64.9 Anemia, unspecified; Z96.41 Presence of insulin pump (external) (internal); Z20.822 Contact with and (suspected) exposure to COVID-19; Z87.891 Personal history of nicotine dependence; Z79.899 Other long term (current) drug therapy
CPT/HCPCS: 0241U; 36415; 70450; 71045; 74177; 80048; 80076; 80307; 81001; 82010; 82803; 82947; 83605; 83690; 83735; 84484; 84702; 85025; 85027; 85610; 86140; 87040; 87493; 87507; 93005; 99285; J1171; J1200; J1642; J1650; J2060; J2765; J3475; J3480; J7120; Q9967

== ENCOUNTER → 2024-07-23 11:50 | Outpatient (BNV) | payer OTHER, SELFPAY | PROVIDERS: Emergency Provider Emergency Medicine; PCP Internal Medicine; Visit Provider Internal Medicine | DX: R94.31 Abnormal electrocardiogram [ECG] [EKG] (principal) | CPT/HCPCS: 93010 ==

== ENCOUNTER → 2024-07-23 11:51 | Outpatient (BNV) | payer OTHER, SELFPAY | PROVIDERS: Emergency Provider Emergency Medicine; PCP Internal Medicine; Visit Provider Radiology Diagnostic Radiology | DX: R10.9 Unspecified abdominal pain (principal); R11.10 Vomiting, unspecified; R41.82 Altered mental status, unspecified; R06.82 Tachypnea, not elsewhere classified | CPT/HCPCS: 70450; 71045; 74177 ==

== ENCOUNTER → 2024-07-24 02:35 | Outpatient (BNV) | payer OTHER, SELFPAY | PROVIDERS: Admitting Provider Internal Medicine; Emergency Provider Emergency Medicine; PCP Internal Medicine; Visit Provider Internal Medicine | DX: R10.13 Epigastric pain (principal); R11.10 Vomiting, unspecified; E11.43 Type 2 diabetes mellitus with diabetic autonomic (poly)neuropathy; K31.84 Gastroparesis | CPT/HCPCS: 99232 ==

== ENCOUNTER 2024-08-14 14:37 | Outpatient (AMB) | payer OTHER, SELFPAY ==
--- OUTSIDE RECORDS SUMMARY | 2024-08-14 14:39 | XMS_ITS ---
Author Organization [facility] Address Unknown Allergies, Adverse Reactions, Alerts Substance Reaction Status Noted Date Resolved Date mushrooms active Encounters Encounter Performer Performer Role Encounter Diagnoses Location Date Discharge - Discharged to home or self care [facility] [place] 08/02/2010 06:30 pm EST - 08/05/2010 02:17 pm EST Social History
--- NOTE | 2024-08-14 14:46 | MHC.PC.OV ---
Vital Signs 08/14/24 14:47 Height 5 ft 6.5 in Weight 166 lb 6 oz BMI 26.4 BP 96/62 Blood Pressure Location Lt brachial Position Sitting Pulse 105 H Pulse Source Pulse Oximeter Temp 96.9 F Temp Source Temporal Artery Scan Pulse Oximetry (%) 98 Oxygen Delivery Method Room Air Intake Visit Reasons: [facility] 08/05 ABD PAIN Infant Lead Teacher Required: No Accompanied by: Spouse Allergies morphine [MORPHINE] Allergy (Intermediate, Verified 08/14/24 14:55) RASH, hives, hives mushroom Allergy (Intermediate, Verified 08/14/24 14:55) HIVES/RASH Sulfa (Sulfonamide Antibiotics) Allergy (Mild, Verified 08/14/24 14:55) Rash mushroom Allergy (Unknown, Uncoded 08/14/24 14:55) throat closes up/difficult breathing mushrooms Allergy (Unknown, Uncoded 08/14/24 14:55) anaphylaxis Medication List - Last Reconciled 08/14/24 by LIZETT Gross hydromorphone 2 mg PO Q6H PRN insulin aspart U-100 (Novolog U-100 Insulin aspart) 0 - 100 units subcut DAILY lamotrigine 200 mg PO BID lorazepam 1 mg PO TID PRN metoprolol tartrate 25 mg PO BID midodrine 5 mg PO DAILY omeprazole 20 mg PO BID@0630,1630 ondansetron 4 mg PO Q8H PRN risperidone 2 mg PO BID zolpidem 10 mg PO BEDTIME Tobacco use date assessed: 08/14/24 Dental Screening Dental Screen Date: 08/14/24 Did you have a dental visit in the last 12 months?: Yes Did you have a dental problem in the last 6 months where you did not have access to dental care?: No Was dental information given to patient?: Patient has dentist HPI [facility] 08/05 ABD PAIN HPI Details The patient is a 48-year-old female with significant past medical history of type 2 diabetes on insulin pump, diabetic gastroparesis leading to multiple hospitalization, 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 She is a patient of Dr. Zaragoza and was last seen in office on 02/24/2024 She is presenting for post hospital visit follow up She went in the hospital with complaints of epigastric pain that was going on for months. She also endorsed nausea, vomiting and diarrhea In the ED, the patient was mildly tachycardic, elevated BP at 182/97. Her initial glucose was found to be 56 her insulin pump was discontinued, her blood sugar went up to 372, leukocytosis 14.9, hemoglobin 11.1, platelets 563. Viral panel was negative. Chest x-ray negative, CT abdominal pelvis showed moderate constipation. Head CT scan showed no acute intracranial abnormalities. In office today: reports vomiting yesterday, but she ate food from the previous day. Reports usually her symptoms are constipation, nausea, vomiting She reports not eating enough and could go a day or two without drinking or eating anything Reports that sometimes she feels faint. Discussed with patient that she might be dehydrated or having low blood sugars since she is not eating or drinking, plus she is taking metoprolol 25 mg b.i.d. Patient reports that she can not not take her metoprolol or else her heart rate will go through the roof The patient is currently on midodrine 5 mg daily to help increase her blood pressure. Discussed with patient about increasing her fluids intake. She is understanding and said she will push herself to drink more. Will consider increasing midodrine if increasing fluids intake is not working Patient reports dark/brown skin area on right breast that she would like to be evaluated by dermatology. The areas underneath the right breast. Reports that she noticed it 2-3 months ago Reports that it has not changed much since noted Denies pain, itching, bleeding to the area TCM TCM Information Date of Discharge 08/02/24 Discharged From [facility] Interactive Contact Date (Reference documentation from this date) 08/04/24 [facility] Medical History Diabetic gastroparesis Acute UTI Diabetes mellitus type 1 Chronic hypertension Intractable cyclical vomiting with nausea Diabetes mellitus with gastroparesis Diabetic gastroparesis Herpes zoster Status post fall Recurrent UTI NSTEMI (non-ST elevated myocardial infarction) Diabetic gastroparesis Anxiety Bipolar 1 disorder Pancreatitis Gastroparesis Diabetes Surgical History History of cholecystectomy History of tonsillectomy History of ERCP H/O pyloroplasty History of appendectomy H/O: hysterectomy Social History Household Members: Significant Other Housing: Other Housing Other:: mobile home Do you presently have visiting nurse or other home services: No Unable to assess alcohol history related to: Refusing to respond Alcohol intake: never Comment: pt refused bed alarm Patient Tobacco Use Status: Former Tobacco user Tobacco use type: Cigarette e-Cigarette/Vaping Use: Former Use Second Hand Smoke Exposure: No Substance Use Type: Marijuana Advance Directives Date on File: 12/03/22 service: No Current occupational status: disabled Cognitive needs: No Hearing needs: No Vision needs: No Questionnaire PHQ-9 Over the last 2 weeks, how often have you been bothered by any of the following problems? 1. Little interest or pleasure in doing things: more than half the days 2. Feeling down, depressed, or hopeless: nearly every day 3. Trouble falling or staying asleep, or sleeping too much: more than half the days 4. Feeling tired or having little energy: nearly every day 5. Poor appetite or overeating: nearly every day 6. Feeling bad about yourself - or that you are a failure or have let yourself or your family down: nearly every day 7. Trouble concentrating on things, such as reading the newspaper or watching television: more than half the days 8. Moving or speaking so slowly that other people could have noticed. Or the opposite - being so fidgety or restless that you have been moving around a lot more than usual: several days 9. Thoughts that you would be better off or of hurting yourself in some way: several days Total score: 20 Depression Screening Interpretation: Positive Depression Screening Done: Yes 96093 - PHQ-9 Billing: Yes Source: Developed by Drs. Anton Guillen, Hamida Wright, Kumar Reynoso and colleagues, with an educational sophia from [employer]. Thrive Questionnaire Date Thrive assessed: 08/14/24 I am a: Patient What is your living situation today?: I have a steady place to live Within the past 12 months, did the food you bought not last and you didn't have the money to get more?: Never true Within the past 12 months, did you worry whether your food would run out before you got money to buy more?: Never true Do you have trouble paying for medicines?: No Do you have trouble getting transportation to medical appointments?: No Do you have trouble paying your heating and electricity bill?: No Do you have trouble taking care of your child, family member or friend?: No Do you have trouble with day-to-day activities such as bathing, preparing meals, shopping, managing finances, etc.?: No Are you currently unemployed and looking for a job?: No Are you interested in more education?: No Please select the resources that you would like help with: None Currently or been in a relationship where the following occur: No concerns reported THRIVE Score: 0 AUDIT C Alcohol Use Questionnaire (AUDIT-C) 1. How often do you have a drink containing alcohol?: Never 3. How often do you have six or more drinks on one occasion?: Never Total Score: 0 Score Reviewed/Action Taken: Yes ANA-7 AMB Questionnaire ANA-7 Date ANA - 7 assessed: 08/14/24 Feeling nervous, anxious, or on edge: 2 = More than half the days Not being able to stop or control worryin = Nearly every day Worrying too much about different things: 3 = Nearly every day Trouble relaxin = Nearly every day Being so restless that it is hard to sit still: 2 = More than half the days Becoming easily annoyed or irritable: 3 = Nearly every day Feeling afraid as if something awful might happen: 2 = More than half the days Total ANA-7 score (0-4 normal; 5-9 mild; 10-14 moderate; 15-21 severe): 18 Source: Developed by Drs. Anton Guillen, Hamida Wright, Kumar Reynoso and colleagues, with an educational sophia from [employer]. ANA-7 Assessment Billing ANA-7 Assessment Tool: ANA-7 Assessment 84104 Review of Systems Const Details: Denies chills, reports intermittent fatigue, Denies fever(s), Denies headache(s) and Denies weakness HEENT Denies change in vision, Denies dizziness, Denies headache(s), Denies hearing loss, Denies nasal congestion, Denies sinus pain, Denies sinus pressure and Denies sore throat Card Denies chest pain, reports intermittent lightheadedness, Denies dyspnea and Denies other (palpitations) Resp Denies cough, Denies dyspnea and Denies wheezing GI Reports intermittent abdominal pain, Denies melena, Denies hematochezia, Denies change in bowel habits, reports intermittent dyspepsia and reports intermittent nausea Other: Reports moving her bowel yesterday Denies hematuria and Denies dysuria Musc Denies abnormal gait, Denies myalgias, Denies arthralgias, Denies numbness and Denies tingling Skin/Breast Denies rash, Denies unusual bruising and Denies wounds Neuro Denies abnormal gait, Denies dizziness, Denies headache(s), Denies memory loss, Denies numbness, Denies Sensory deficit (Neuro), Denies tingling and Denies weakness Psych Reports anxiety, reports depression and Denies memory loss Endo Denies cold intolerance, Denies fatigue, Denies heat intolerance, Denies polydipsia and Denies polyuria Antonio/Lymph Denies easy bleeding and Denies easy bruising Aller/Immun Denies wheezing Physical exam (Primary Care) Vital Signs: Last Vital Signs Temp 96.9 F 08/14/24 14:47 Pulse 105 H 08/14/24 14:47 BP 96/62 08/14/24 14:47 Pulse Ox 98 08/14/24 14:47 Oxygen Delivery Method Room Air 08/14/24 14:47 BMI result Body Mass Index 26.4 Tobacco/Smoking Status: Tobacco use Status Tobacco use date assessed 08/14/24 08/14/24 14:54 Patient Tobacco Use Status Former Tobacco user 08/14/24 14:48 Tobacco use type Cigarette 08/14/24 14:48 e-Cigarette/Vaping Use Former Use 08/14/24 14:48 PHQ-9: PHQ-9 Score PHQ-9: Total score 20 08/16/24 15:26 Depression Screening Interpretation: Positive Thrive Assessment: Date of Thrive Assessment Date Thrive assessed 08/14/24 08/14/24 14:52 Currently or been in a relationship where the following occur: No concerns reported Const Other: General: no acute distress, well developed, alert and awake Nutritional Appearance: well nourished Orientation/consciousness: patient oriented x3 HENMT Head: Yes normocephalic and Yes atraumatic Ears: hearing grossly normal bilaterally and TM's normal bilaterally General nose exam: Normal external nose present and Normal nares present Mouth: Normal oral and palatal mucosa present and dry mucous membranes Eyes Pupils: Equal, round and reactive pupils present and Pupil accommodation reflex normal EOM: EOMs intact bilaterally Neck Neck: Yes normal visual inspection, Yes no lymphadenopathy and Yes trachea midline Thyroid: Thyroid normal Lymphatic: no lymphadenopathy noted Chest Chest palpation & inspection: normal inspection of the chest Resp Effort & Inspection: normal respiratory effort Auscultation: clear to auscultation bilaterally Cardio Rate: Tachycardic Rhythm: regular rhythm Heart sounds: S1 normal heart sound present, S2 normal heart sound present, no gallops, no murmurs and no rubs GI Palpation (GI): + tenderness to epigastric region Auscultation: normal bowel sounds General: Yes no CVA tenderness Back/Spine/Pelvis Back: no CVA tenderness Cervical Spine: cervical ROM normal and No Cervical spine tenderness Thoracic/Lumbar Spine: No lumbar tenderness Skin General: warm and dry. Normal skin color. Normal skin turgor Lesions: no lesions Nails: normal Neuro General: patient oriented x3, gait normal Cranial nerves: Yes Equal, round and reactive pupils present Cognition (Neuro): normal cognition Gait exam (Neuro): Normal gait present Extrem General: Yes normal to inspection, No edema and No calf tenderness Psych Appearance: grossly normal Affect: normal affect Attitude: cooperative Thought process: Normal thought process present Results AMB Hemoglobin A1c AMB Hemoglobin A1c 7.9 % Last Edit by YIMI Hudson on 08/14/24 15:06 Results Reviewed Results Reviewed: Laboratory Last Values Hgb A1c (Clinic) 7.9 % (4.0-6.0) H 08/14/24 14:55 Coding Level of Care Code [facility] MDM <= 7 Days Diagnoses Hospital discharge follow-up Z09 Nausea and vomiting, unspecified vomiting type R11.2 Vomiting type: unspecified Idiopathic hypotension I95.0 Type 1 diabetes mellitus with other specified complication E10.69 Diabetes mellitus complication status: with other specified complication Diabetic gastroparesis E11.43; K31.84 Gastroesophageal reflux disease, unspecified whether esophagitis present K21.9 Esophagitis presence: esophagitis presence not specified Nevus of female breast D22.5 Insomnia, unspecified type G47.00 Insomnia type: unspecified Anxiety F41.9 Bipolar 1 disorder F31.9 Additional Codes ANA-7 Assessment Billing - ANA-7 Assessment Tool: ANA-7 Assessment 52150 ([id number]) PHQ-9 - 09114 - PHQ-9 Billing: Yes ([id number]) Time Spent (min) 43 Assessment & Plan Assessment & Plan (1) Hospital discharge follow-up: Code(s): Z09 - Encounter for follow-up examination after completed treatment for conditions other than malignant neoplasm Category: Medical Plan: LR 2 L bolus, Benadryl 25 mg IV, Reglan 10 mg IV, famotidine 20 mg IV was given in the ER. This helped the patient initial presentation of dehydration and abdominal pain. The patient was also treated with the IV Dilaudid. Electrolytes were replaced due to vomiting and her blood sugars were controlled with basal bolus insulin --she was stabilized and sent home, the patient is presenting with soft blood pressure due to poor p.o. intake and metoprolol 25 mg b.i.d. A blood pressure card was given to the patient. Discussed with the patient that she should not take her metoprolol if her systolic pressure is less than 100 or if her heart rate is less than 60. Discussed with patient that she needs to increase her fluid intake or she will always run into the same issues that cause her to visit the hospital frequently (2) Nausea & vomiting: Code(s): R11.2 - Nausea with vomiting, unspecified Category: Medical Qualifiers: Vomiting type: unspecified Qualified Code(s): R11.2 - Nausea with vomiting, unspecified Plan: Reports feeling nauseous on and off. Reports vomiting yesterday but thinks she ate stale food Continue with Ondansetron 4 mg Q 8 p.r.n. (3) Idiopathic hypotension: Code(s): I95.0 - Idiopathic hypotension Category: Medical Plan: Increase p.o. fluids Continue midodrine 5 mg daily (4) Type 1 diabetes: Code(s): E10.9 - Type 1 diabetes mellitus without complications Category: Medical Qualifiers: Diabetes mellitus complication status: with other specified complication Qualified Code(s): E10.69 - Type 1 diabetes mellitus with other specified complication Plan: The patient reports fluctuating blood sugars, alternating between highs and lows. The patient also reported not eating or drinking for 1-2 days at a time Discussed with patient that these fluctuations might be through her eating/drinking habits. Discussed lifestyle modifications, the patient reports that she would try her best to start drinking/eating consistently. A1c 7.9% in office Insulin pump in place. Patient to follow up with Endocrine as scheduled (5) Diabetic gastroparesis: Code(s): E11.43 - Type 2 diabetes mellitus with diabetic autonomic (poly)neuropathy; K31.84 - Gastroparesis Category: Medical Plan: Encouraged dietary modification GI referral placed (6) GERD (gastroesophageal reflux disease): Code(s): K21.9 - Gastro-esophageal reflux disease without esophagitis Category: Medical Qualifiers: Esophagitis presence: esophagitis presence not specified Qualified Code(s): K21.9 - Gastro-esophageal reflux disease without esophagitis Plan: Reinforced dietary restrictions, refrain from eating close to bedtime Continue omeprazole 20 mg b.i.d. GI referral placed (7) Nevus of female breast: Code(s): D22.5 - Melanocytic nevi of trunk Category: Medical Plan: Dark brown/black area present on the right breast will refer to Dermatology (8) Insomnia: Code(s): G47.00 - Insomnia, unspecified Category: Medical Qualifiers: Insomnia type: unspecified Qualified Code(s): G47.00 - Insomnia, unspecified Plan: Reinforced sleep hygiene Continue zolpidem 10 mg at bedtime (9) Anxiety: Code(s): F41.9 - Anxiety disorder, unspecified Category: Medical Plan: Continue Ativan 1 mg t.i.d. p.r.n. Follow up with psychiatry as scheduled (10) Bipolar 1 disorder: Code(s): F31.9 - Bipolar disorder, unspecified Category: Medical Plan: Continue lamotrigine 200 mg b.i.d., risperidone 2 mg b.i.d. Denies SI/HI Follow up with Psychiatry as scheduled Plan To return in 3 months for her annual physical examination Orders: Orders AMB Hemoglobin A1c 08/14/24 E10.9 - Type 1 diabetes mellitus without complications Comprehensive [place]. Panel Fast 1 Month E10.9 - Type 1 diabetes mellitus without complications, E11.43 - Type 2 diabetes mellitus with diabetic autonomic (poly)neuropathy, F31.9 - Bipolar disorder, unspecified, K21.9 - Gastro-esophageal reflux disease without esophagitis, K31.84 - Gastroparesis, Z00.00 - Encounter for general adult medical examination without abnormal findings Complete Blood Count Auto Diff 1 Month E10.9 - Type 1 diabetes mellitus without complications, E11.43 - Type 2 diabetes mellitus with diabetic autonomic (poly)neuropathy, F31.9 - Bipolar disorder, unspecified, K21.9 - Gastro-esophageal reflux disease without esophagitis, K31.84 - Gastroparesis, Z00.00 - Encounter for general adult medical examination without abnormal findings Vitamin D 25-OH Total 1 Month E10.9 - Type 1 diabetes mellitus without complications, E11.43 - Type 2 diabetes mellitus with diabetic autonomic (poly)neuropathy, F31.9 - Bipolar disorder, unspecified, K21.9 - Gastro-esophageal reflux disease without esophagitis, K31.84 - Gastroparesis, Z00.00 - Encounter for general adult medical examination without abnormal findings UA CC w/rflx Micro + Cult 1 Month E10.9 - Type 1 diabetes mellitus without complications, E11.43 - Type 2 diabetes mellitus with diabetic autonomic (poly)neuropathy, F31.9 - Bipolar disorder, unspecified, K21.9 - Gastro-esophageal reflux disease without esophagitis, K31.84 - Gastroparesis, Z00.00 - Encounter for general adult medical examination without abnormal findings TSH reflex Free T4 1 Month E10.9 - Type 1 diabetes mellitus without complications, E11.43 - Type 2 diabetes mellitus with diabetic autonomic (poly)neuropathy, F31.9 - Bipolar disorder, unspecified, K21.9 - Gastro-esophageal reflux disease without esophagitis, K31.84 - Gastroparesis, Z00.00 - Encounter for general adult medical examination without abnormal findings Lipid Panel 1 Month E10.9 - Type 1 diabetes mellitus without complications, E11.43 - Type 2 diabetes mellitus with diabetic autonomic (poly)neuropathy, F31.9 - Bipolar disorder, unspecified, K21.9 - Gastro-esophageal reflux disease without esophagitis, K31.84 - Gastroparesis, Z00.00 - Encounter for general adult medical examination without abnormal findings Hemoglobin A1c 1 Month E10.9 - Type 1 diabetes mellitus without complications, E11.43 - Type 2 diabetes mellitus with diabetic autonomic (poly)neuropathy, F31.9 - Bipolar disorder, unspecified, K21.9 - Gastro-esophageal reflux disease without esophagitis, K31.84 - Gastroparesis, Z00.00 - Encounter for general adult medical examination without abnormal findings Referrals Gastroenterology Referral E11.43 - Type 2 diabetes mellitus with diabetic autonomic (poly)neuropathy, K21.9 - Gastro-esophageal reflux disease without esophagitis, K31.84 - Gastroparesis, R11.2 - Nausea with vomiting, unspecified Dermatology Referral D22.5 - Melanocytic nevi of trunk
[2024-08-14 14:47] VITALS: BP 96/62; PULSE 105; TEMP 36.1; O2SAT 98; BMI 26.4
== END 2024-08-14 15:30 | disposition home or self-care (01) ==
PROVIDERS: PCP Internal Medicine
DX: E10.9 Type 1 diabetes mellitus without complications (principal)

== ENCOUNTER → 2024-08-14 14:37 | Outpatient (BNVA) | payer OTHER, SELFPAY | PROVIDERS: PCP Internal Medicine | DX: Z09 Encounter for follow-up examination after completed treatment for conditions other than malignant neoplasm (principal); R11.2 Nausea with vomiting, unspecified; I95.0 Idiopathic hypotension; E11.43 Type 2 diabetes mellitus with diabetic autonomic (poly)neuropathy; K31.84 Gastroparesis; K21.9 Gastro-esophageal reflux disease without esophagitis; D22.5 Melanocytic nevi of trunk; G47.00 Insomnia, unspecified; F41.9 Anxiety disorder, unspecified; F31.9 Bipolar disorder, unspecified | CPT/HCPCS: 83036; 96127; 99496 ==

== ENCOUNTER 2024-09-17 16:31 | Inpatient (IN) | payer OTHER, SELFPAY ==
[2024-09-17] VITALS (13 sets, daily range): BP systolic 137–162; BP diastolic 69–91; PULSE 111–139; RESP 17–25; TEMP 36.7; O2SAT 96–100; BMI 24.3
--- NOTE | 2024-09-17 17:00 | ED.ABDPAIN ---
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 times a few days. Admits to smoking marijuana, last use today. Denies other illicit substances. Admits to similar symptoms in the past. Denies fever, chills, dysuria /hematuria Related Data Home Medications ?Medication ?Instructions ?Recorded ?Confirmed lamotrigine 200 mg tablet 200 mg PO BID 05/11/20 08/14/24 lorazepam 1 mg tablet 1 mg PO TID PRN Anxiety 05/11/20 08/14/24 zolpidem 10 mg tablet 10 mg PO BEDTIME 05/11/20 08/14/24 risperidone 2 mg tablet 2 mg PO BID 09/13/21 08/14/24 insulin aspart U-100 100 unit/mL 0 - 100 unit subcut DAILY 07/23/24 08/14/24 subcutaneous solution (Novolog U-100 Insulin aspart) Previous Rx's ?Medication ?Instructions ?Recorded metoprolol tartrate 25 mg tablet 25 mg PO BID #180 tabs 04/12/24 midodrine 5 mg tablet 5 mg PO DAILY #90 tabs 07/09/24 ondansetron 4 mg disintegrating 4 mg PO Q8H PRN nausea and 07/28/24 tablet vomiting #20 tabs hydromorphone 2 mg tablet 2 mg PO Q6H PRN pain (scale score 08/01/24 7-10) #20 tabs omeprazole 20 mg capsule,delayed 20 mg PO BID 90 days #180 caps 09/08/24 release Allergies Allergy/AdvReac Type Severity Reaction Status Date / Time morphine [MORPHINE] Allergy Intermediate RASH, Verified 09/17/24 17:18 hives, hives mushroom Allergy Intermediate HIVES/RASH Verified 09/17/24 17:18 Sulfa (Sulfonamide Allergy Mild Rash Verified 09/17/24 17:18 Antibiotics) mushroom Allergy Unknown throat Uncoded 09/17/24 17:18 closes up/difficult breathing mushrooms Allergy Unknown anaphylaxis Uncoded 09/17/24 17:18 Review of Systems Review of Systems Yes all other systems are reviewed and are negative Constitutional: Reports as per [facility] Past Medical History Attestation statement: The following information was validated with the patient. Source: old records reviewed Medical History Diabetic gastroparesis Acute UTI Diabetes mellitus type 1 Chronic hypertension Intractable cyclical vomiting with nausea Diabetes mellitus with gastroparesis Diabetic gastroparesis Herpes zoster Status post fall Recurrent UTI NSTEMI (non-ST elevated myocardial infarction) Diabetic gastroparesis Anxiety Bipolar 1 disorder Pancreatitis Gastroparesis Diabetes Surgical History History of cholecystectomy History of tonsillectomy History of ERCP H/O pyloroplasty History of appendectomy H/O: hysterectomy Social History Social History Household Members: Significant Other Housing: Other Housing Other:: mobile home Do you presently have visiting nurse or other home services: No Unable to assess alcohol history related to: Refusing to respond Alcohol intake: never Comment: pt refused bed alarm Patient Tobacco Use Status: Former Tobacco user Tobacco use type: Cigarette Smoked in Last 30 Days: No e-Cigarette/Vaping Use: Former Use Second Hand Smoke Exposure: No Substance Use Type: Marijuana Advance Directives: Yes Advance Directives Information Provided: Yes Advance Directives on File: Yes Advance Directives Date on File: 12/03/22 Patient : No service: No Current occupational status: disabled Cognitive needs: No Hearing needs: No Vision needs: No Physical Exam ED Vital Signs: Vital Signs - 24 hr 09/17/24 17:00 09/17/24 19:10 Temperature 98.1 F 98.1 F Pulse Rate 139 H 130 H Respiratory Rate 25 H 20 Blood Pressure 137/69 150/69 H Pulse Oximetry 100 99 Oxygen Delivery Method Room Air Room Air BMI result Body Mass Index 24.3 Const Other: uncomfortable, writhing in stretcher General: cooperative Orientation/consciousness: patient oriented x3 Limitations: no limitations HENMT Head: Yes normal to inspection and Yes atraumatic Ears: hearing grossly normal bilaterally General nose exam: Normal external nose present Face and sinus: Yes normal facial exam Eyes General: appearance normal, both eyes and all related structures EOM: EOMs intact bilaterally Neck Neck: Yes normal visual inspection and Yes no meningeal signs Resp Effort & Inspection: normal respiratory effort and no respiratory distress Auscultation: clear to auscultation bilaterally Cardio Rate: regular rate Heart sounds: S1 normal heart sound present and S2 normal heart sound present GI Inspection: Yes normal to inspection Palpation (GI): Soft to palpation, Tenderness to palpation present (GI) ( diffusely) with no rebound tenderness, no guarding and not rigid Skin Rashes: no rashes Wounds: no wounds Neuro General: patient oriented x3, tone normal and no meningeal signs Cranial nerves: Yes CN's II-XII intact bilaterally Gait exam (Neuro): Normal gait present Extrem General: Yes normal to inspection Course Course Course Narrative: -1836-- leukocytosis of 14.3 > likely reactive from dry heaving/emesis rather than severe sepsis. H&H at patient's baseline. - pH 7.65. HCO3 - 19 - anion gap of 23 > likely from starvation ketosis vs DKA. beta-hydroxybutyrate 1.15 >> lower suspicion for acute DKA -Lactic acid elevated 4.8 -2049-- repeat BMP with improvement of glucose to 296, lactic acid remains elevated at 4.8, anion gap of 23 > likely from lactic acidosis. Low suspicion for DKA. 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 x a few days. On exam Tachycardic, tachypneic, writhing around in pain, actively dry heaving, abdomen is soft diffusely tender. 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 rule out DKA/HHS. Low suspicion for acute appendicitis /diverticulitis /colitis or C diff at this time. Lower suspicion for cholecystitis /lithiasis or pancreatitis. Low suspicion for severe sepsis, vital sign abnormalities likely from pain/ dehydration rather than infectious etiology. Plan: EKG, labs, UA, tox screen, IVF, symptomatic remedies, re-evaluate Differential Diagnosis Differential Diagnoses: The differential diagnosis associated with the presentation includes As above Admission/Observation Consideration of admission/observation: Escalation of care including admission/observation considered Consult Healthcare Provider Management of the patient was discussed with: Hospitalist Lab Data MDM Lab Attestation statement: I reviewed the patient's lab results. 09/17/24 17:28 09/17/24 19:48 Labs: Lab Results 09/17/24 09/17/24 09/17/24 Range/Units 17:01 17:12 17:28 WBC 14.3 H (4.8-10.8) X10*3/uL RBC 3.93 L (4.20-5.50) X10*6/uL Hgb 10.5 L (12.0-16.0) g/dl Hct 32.4 L (37.0-47.0) % MCV 82.4 (80.0-98.0) fL MCH 26.7 L (27.0-33.0) pg MCHC 32.4 (31.0-35.0) g/dl RDW 15.9 (11.0-16.0) % Plt Count 625 H D (160-400) X10*3/uL MPV 8.7 L (9.4-12.3) fL Immature Gran % (Auto) 0.4 (0.0-0.4) % Neut % (Auto) 90.1 H (45-73) % Lymph % (Auto) 7.8 L (20-40) % [place] % (Auto) 1.3 L (2-11) % Eos % (Auto) 0.0 (0-4) % Baso % (Auto) 0.4 (0-2) % Lymph # (Auto) 1.1 L (1.2-4.9) X10*3/uL [place] # (Auto) 0.2 (0.1-1.2) X10*3/uL Eos # (Auto) 0.0 (0.0-0.4) X10*3/uL Baso # (Auto) 0.1 (0.0-0.2) X10*3/uL Abs Immat Gran (auto) 0.06 H (0.00-0.03) X10*3/uL Absolute Neuts (auto) 12.9 H (2.0-8.3) x10*3/uL Absolute Nucleated RBC 0.000 (0.0-0.012) X10*3/uL Nucleated RBC % (auto) 0.0 (0.0-0.2) /100WBC Smear Tech's Comments VERIFIED VBG pH (7.32-7.43) VBG pCO2 mmHg VBG pO2 mmHg VBG HCO3 (22-26) mmol/L VBG O2 Saturation % VBG Base Excess mmol/L Sodium 139 (135-145) mmol/L Potassium 3.9 (3.3-5.1) mmol/L Chloride 102 (96-108) mmol/L Carbon Dioxide 18 L (22-29) mmol/L Anion Gap 23 H (12-20) BUN 15 (9-16) mg/dL Creatinine 1.16 (0.5-1.4) mg/dL Estim Creat Clear Calc 58.5 Estimated GFR 49 POC Glucose 368 H* (60-115) mg/dL Random Glucose 353 H* (60-115) mg/dL Lactic Acid 4.8 H* (0.5-2.0) mmol/L Calcium 10.0 D (8.4-10.2) mg/dL Magnesium 1.7 (1.6-2.6) mg/dL Total Bilirubin 0.2 (0.0-1.0) mg/dL Direct Bilirubin < 0.2 (0.0-0.5) mg/dL AST 15 (5-31) U/L ALT 6 (0-31) U/L Alkaline Phosphatase 137 H (39-117) U/L Total Protein 8.7 H (6.5-8.0) g/dL Albumin 4.5 (3.5-5.0) g/dL Lipase 5 L (8-78) U/L Beta-Hydroxybutyrate 1.15 H (0.02-0.27) mmol/L Beta HCG, Quant < 2 mIU/mL Urine Color Urine Appearance Urine pH (5.0-9.0) Ur Specific [place] (1.005-1.025) Urine Protein (Neg-Trace) mg/dL Urine Glucose (UA) (Negative) mg/dL Urine Ketones (Negative) mg/dL Urine Blood (Negative) Urine Nitrite (Negative) Ur Leukocyte Esterase (Negative) Urine RBC (0-2) /HPF Urine WBC (0-5) /HPF Ur Squamous Epith Cells (0-2) /HPF Urine Bacteria (None Seen) Hyaline Casts (0-2) /LPF Urine Opiates Screen (Not Detect) Ur Buprenorphine Scrn (Not Detect) ng/mL Ur Oxycodone Screen (Not Detect) ng/mL Urine Methadone Screen (Not Detect) ng/mL Urine Fentanyl Screen (Not Detect) Ur Barbiturates Screen (Not Detect) Ur Phencyclidine Scrn (Not Detect) Ur Amphetamines Screen (Not Detect) U Benzodiazepines Scrn (Not Detect) Urine Cocaine Screen (Not Detect) U Marijuana (THC) Screen (Not Detect) Influenza Type A (PCR) NEGATIVE (Negative) Influenza Type B (PCR) NEGATIVE (Negative) RSV RNA Qual (PCR) NEGATIVE (Negative) SARS-CoV-2 RNA (RT-PCR) NEGATIVE (Negative) 09/17/24 09/17/24 09/17/24 Range/Units 17:34 19:16 19:48 WBC (4.8-10.8) X10*3/uL RBC (4.20-5.50) X10*6/uL Hgb (12.0-16.0) g/dl Hct (37.0-47.0) % MCV (80.0-98.0) fL MCH (27.0-33.0) pg MCHC (31.0-35.0) g/dl RDW (11.0-16.0) % Plt Count (160-400) X10*3/uL MPV (9.4-12.3) fL Immature Gran % (Auto) (0.0-0.4) % Neut % (Auto) (45-73) % Lymph % (Auto) (20-40) % [place] % (Auto) (2-11) % Eos % (Auto) (0-4) % Baso % (Auto) (0-2) % Lymph # (Auto) (1.2-4.9) X10*3/uL [place] # (Auto) (0.1-1.2) X10*3/uL Eos # (Auto) (0.0-0.4) X10*3/uL Baso # (Auto) (0.0-0.2) X10*3/uL Abs Immat Gran (auto) (0.00-0.03) X10*3/uL Absolute Neuts (auto) (2.0-8.3) x10*3/uL Absolute Nucleated RBC (0.0-0.012) X10*3/uL Nucleated RBC % (auto) (0.0-0.2) /100WBC Smear Tech's Comments VBG pH 7.65 H* (7.32-7.43) VBG pCO2 17 mmHg VBG pO2 107 mmHg VBG HCO3 19 L (22-26) mmol/L VBG O2 Saturation 100.0 % VBG Base Excess 1.9 mmol/L Sodium 139 (135-145) mmol/L Potassium 3.9 (3.3-5.1) mmol/L Chloride 101 (96-108) mmol/L Carbon Dioxide 19 L (22-29) mmol/L Anion Gap 23 H (12-20) BUN 13 (9-16) mg/dL Creatinine 0.97 (0.5-1.4) mg/dL Estim Creat Clear Calc 70.0 Estimated GFR > 60 POC Glucose (60-115) mg/dL Random Glucose 296 H (60-115) mg/dL Lactic Acid 4.8 H* (0.5-2.0) mmol/L Calcium 9.5 (8.4-10.2) mg/dL Magnesium (1.6-2.6) mg/dL Total Bilirubin (0.0-1.0) mg/dL Direct Bilirubin (0.0-0.5) mg/dL AST (5-31) U/L ALT (0-31) U/L Alkaline Phosphatase (39-117) U/L Total Protein (6.5-8.0) g/dL Albumin (3.5-5.0) g/dL Lipase (8-78) U/L Beta-Hydroxybutyrate (0.02-0.27) mmol/L Beta HCG, Quant mIU/mL Urine Color Yellow Urine Appearance Clear Urine pH 7.5 (5.0-9.0) Ur Specific [place] 1.015 (1.005-1.025) Urine Protein 30 (1+) H (Neg-Trace) mg/dL Urine Glucose (UA) >=1000 H (Negative) mg/dL Urine Ketones 15 (Negative) mg/dL Urine Blood Small (1+) H (Negative) Urine Nitrite Negative (Negative) Ur Leukocyte Esterase Negative (Negative) Urine RBC 11-20 H (0-2) /HPF Urine WBC 0-5 (0-5) /HPF Ur Squamous Epith Cells 6-10 (0-2) /HPF Urine Bacteria None Seen (None Seen) Hyaline Casts 0-2 (0-2) /LPF Urine Opiates Screen Not Detected (Not Detect) Ur Buprenorphine Scrn Not Detected (Not Detect) ng/mL Ur Oxycodone Screen Not Detected (Not Detect) ng/mL Urine Methadone Screen Not Detected (Not Detect) ng/mL Urine Fentanyl Screen Not Detected (Not Detect) Ur Barbiturates Screen Not Detected (Not Detect) Ur Phencyclidine Scrn Not Detected (Not Detect) Ur Amphetamines Screen Not Detected (Not Detect) U Benzodiazepines Scrn Not Detected (Not Detect) Urine Cocaine Screen Not Detected (Not Detect) U Marijuana (THC) Screen POSITIVE H (Not Detect) Influenza Type A (PCR) (Negative) Influenza Type B (PCR) (Negative) RSV RNA Qual (PCR) (Negative) SARS-CoV-2 RNA (RT-PCR) (Negative) Independent Interpretation I performed an independent interpretation of an: EKG Radiology Impression Discussion of test interpretation with radiology: I have reviewed the radiologist's reading. Independent Historian Clinical information obtained from an independent historian. History obtained from or confirmed by: EMS External Record Review External record reviewed: Inpatient record, Office record, Outpatient record, Prior outpatient labs, Prior outpatient radiology, Primary care record and Outside ED record Tests considered The following testing was considered but not selected: As above Prescription Management I considered prescription management with: Pain Medication, Antibiotic and Other Chronic Conditions Patient?s care impacted by: Diabetes and Other Social Determinants Patient?s care significantly limited by Social Determinants of Health including: Other Social Determinant of Health Medications Administered Discontinued Medications Generic Name Dose Route Start Last Admin Trade Name Freq PRN Reason Stop Dose Admin Diphenhydramine HCl 50 mg 09/17/24 17:03 09/17/24 17:31 Diphenhydramine Hcl 50 Mg/Ml Vial IVPUSH 09/17/24 17:04 50 mg ONCE ONE Administration Famotidine 20 mg 09/17/24 17:04 09/17/24 17:32 Famotidine/Pf 20 Mg/2 Ml Vial IVPUSH 09/17/24 17:05 20 mg ONCE ONE Administration Lactated Ringer's 1,000 mls @ 999 mls/hr 09/17/24 17:15 09/17/24 19:37 Lr IV 09/17/24 18:15 Infused .Q1H1M RAISA Infusion Lactated Ringer's 1,000 mls @ 999 mls/hr 09/17/24 17:15 09/17/24 20:12 Lr IV 09/17/24 18:15 Infused .Q1H1M RAISA Infusion Magnesium Sulfate 2 gm in 50 mls @ 25 mls/hr 09/17/24 17:17 09/17/24 17:43 Magnesium Sulfate/H2o IV 09/17/24 19:16 Infused ONCE ONE Infusion Lactated Ringer's 500 mls @ 999 mls/hr 09/17/24 18:00 09/17/24 20:12 Lr IV 09/17/24 18:30 Infused .Q31M RAISA Infusion Piperacillin Sod/Tazobactam 50 mls @ 100 mls/hr 09/17/24 17:56 09/17/24 19:22 Sod 3.375 gm/ Sodium Chloride IV 09/17/24 18:25 Infused ONCE ONE Infusion Metoclopramide HCl 10 mg 09/17/24 17:03 09/17/24 17:34 Metoclopramide Hcl 10 Mg/2 Ml Vial IVPUSH 09/17/24 17:04 10 mg ONCE ONE Administration Critical Care Time Critical Care Time Critical Care Time: Yes Total Critical Care Time: 50 Attestation: I have personally provided critical care time exclusive of time spent on separately billable procedures. Time includes review of lab data, radiology results, discussion with consultants, and monitoring for potential decompensation. Intervention performed as documented. Discharge Plan Discharge Clinical Impression: Acidosis, lactic, Diabetic gastroparesis Patient Disposition: Admitted As Inpatient Print Language: [place]
--- NOTE | 2024-09-17 17:01 | ECG_ITS ---
Test Reason : TACHYCARDIA Blood Pressure : */* mmHG Vent. Rate : 143 BPM Atrial Rate : 143 BPM P-R Int : 118 ms QRS Dur : 76 ms QT Int : 352 ms P-R-T Axes : 48 39 35 degrees QTcB Int : 543 ms Sinus tachycardia Low voltage QRS Cannot rule out Anterior infarct (cited on or before 23-Jul-2024) Abnormal ECG When compared with ECG of 23-Jul-2024 12:49, No significant change was found Referred By: Ro Boyd Electronically Signed By: UZMA TURNER MD
[2024-09-17 17:15] LABS: Glucose, Whole Blood 368 mg/dL (60-115)
[2024-09-17] MEDS: Lactated Ringers 1,000 ML 999 ML IV ×3 (17:29→21:24)
[2024-09-17] MEDS: Magnesium Sulfate/H2O 2 GM/50 ML PIGGYBACK IV (17:30)
[2024-09-17] MEDS: diphenhydrAMINE HCL 50 MG/ML VIAL IVPUSH (17:31)
[2024-09-17] MEDS: Famotidine/PF 20 MG/2 ML VIAL IVPUSH (17:32)
[2024-09-17] MEDS: Metoclopramide HCl 10 MG/2 ML VIAL IVPUSH (17:34)
[2024-09-17 17:39] LABS: Basophils Absolute Auto 0.1 X10*3/uL (0.0-0.2); Basophils Percent Auto 0.4 % (0-2); Hematocrit 32.4 % (37.0-47.0); Hemoglobin 10.5 g/dl (12.0-16.0); Imm Gran Abs Auto 0.06 X10*3/uL (0.00-0.03); Imm Gran Pct Auto 0.4 % (0.0-0.4); Lymphocytes Absolute Auto 1.1 X10*3/uL (1.2-4.9); Lymphocytes Percent Auto 7.8 % (20-40); MANUAL DIFF FLAG SCAN; Mean Corpuscular HGB Conc 32.4 g/dl (31.0-35.0); Mean Corpuscular Hemoglobin 26.7 pg (27.0-33.0); Mean Corpuscular Volume 82.4 fL (80.0-98.0); Mean Platelet Volume 8.7 fL (9.4-12.3); Monocytes Absolute Auto 0.2 X10*3/uL (0.1-1.2); Monocytes Percent Auto 1.3 % (2-11); Neutrophils Absolute Auto 12.9 x10*3/uL (2.0-8.3); Neutrophils Percent Auto 90.1 % (45-73); Platelet Count 625 X10*3/uL (160-400); Red Blood Count 3.93 X10*6/uL (4.20-5.50); Red Cell Distribution Width 15.9 % (11.0-16.0); SCAN SMEAR FLAG 1; White Blood Count 14.3 X10*3/uL (4.8-10.8)
--- NOTE | 2024-09-17 17:44 | PC.NURSE ---
patient presents from home with x1day of nausea and vomiting. patient poc 368, patient appears pale, dry. patient power port accessed by this RN, unable to get blood return, flushes smoothly. patient is awake and alert, states that she has upper abdominal pain with nausea and vomiting. patient medicated per SEP, labs drawn by technical support analyst. patient noted to be tachycardic, sinus tach rate 130-140s.
[2024-09-17 17:51] LABS: Beta-Hydroxybutyrate 1.15 mmol/L (0.02-0.27)
[2024-09-17 17:56] LABS: Lactic Acid 4.8 mmol/L (0.5-2.0)
[2024-09-17 18:02] LABS: Alanine Aminotransferase 6 U/L (0-31); Albumin Level 4.5 g/dL (3.5-5.0); Alkaline Phosphatase 137 U/L (39-117); Anion Gap 23 (12-20); Aspartate Amino Transferase 15 U/L (5-31); Bilirubin Direct < 0.2 mg/dL (0.0-0.5); Bilirubin Total 0.2 mg/dL (0.0-1.0); Blood Urea Nitrogen 15 mg/dL (9-16); Carbon Dioxide 18 mmol/L (22-29); Chloride 102 mmol/L (96-108); Creatinine Clr Calc Pharmacy 58.5; Estimated Glomerular Filt Rate 49; Glucose Random 353 mg/dL (60-115); HCG Quantitative < 2 mIU/mL; Lipase 5 U/L (8-78); Magnesium 1.7 mg/dL (1.6-2.6); Potassium 3.9 mmol/L (3.3-5.1); Sodium 139 mmol/L (135-145); Total Protein 8.7 g/dL (6.5-8.0)
[2024-09-17 18:03] LABS: SLIDE REVIEW VERIFIED
[2024-09-17 18:10] LABS: VBG Base Excess 1.9 mmol/L; VBG HCO3 19 mmol/L (22-26); VBG pCO2 17 mmHg; VBG pO2 107 mmHg
[2024-09-17 18:12] LABS: Venous Blood Gas Refer to POC result
[2024-09-17 18:12] LABS: VBG pH 7.65 (7.32-7.43)
[2024-09-17 18:15] LABS: Influenza A PCR NEGATIVE (Negative); Influenza B PCR NEGATIVE (Negative); Resp Syncy Virus RNA Qual PCR NEGATIVE (Negative); SARS COV2 PCR INHOUSE NEGATIVE (Negative)
--- NOTE | 2024-09-17 18:37 | PC.NURSE ---
patient is awake and alert, patient ambulated to bathroom with steady gait for urine sample.
[2024-09-17] MEDS: Piperacillin Sodium/Tazobactam 3.375 GM in 0.9 % Sodium Chloride 50 ML IV (18:47)
[2024-09-17] MEDS: Lactated Ringers 500 ML 999 ML IV (19:12)
[2024-09-17 19:23] LABS: Appearance Urine Clear; Color Urine Yellow; Glucose Urine UA >=1000 mg/dL (Negative); Leukocyte Esterase Urine Negative (Negative); Nitrite Urine Negative (Negative); PH 7.5 (5.0-9.0); Specific Gravity - Urine 1.015 (1.005-1.025); UMIC TRIGGER UACC YES; Urine Blood Small (1+) (Negative); Urine Ketones 15 mg/dL (Negative); Urine Protein 30 (1+) mg/dL (Neg-Trace)
[2024-09-17 19:26] LABS: Bacteria Urine None Seen (None Seen); Hyaline Casts Urine 0-2 /LPF (0-2); WBC Urine 0-5 /HPF (0-5)
[2024-09-17 19:32] LABS: Amphetamine Screen Urine Not Detected (Not Detect); Barbiturates, Urine Not Detected (Not Detect); Benzodiazepines Screen Urine Not Detected (Not Detect); Buprenorphine Scr Not Detected (Not Detect); Cannabinoid Screen Urine POSITIVE (Not Detect); Cocaine Screen Urine Not Detected (Not Detect); Fentanyl, urine Not Detected (Not Detect); Methadone Screen, Urine Not Detected (Not Detect); Opiate Screen Urine Not Detected (Not Detect); Oxycodone Screen Urine Not Detected (Not Detect); Phencyclidine Screen Urine Not Detected (Not Detect)
[2024-09-17 19:32] LABS: Reflex Lactate? Lactic Acid Added
--- NOTE | 2024-09-17 19:45 | PC.NURSE ---
this rn spoke with provider about calling sepsis, per provider pt is not a sepsis alert. IV fluids continuing to administer at this time,vss.
[2024-09-17 20:37] LABS: Anion Gap 23 (12-20); Blood Urea Nitrogen 13 mg/dL (9-16); Calcium 9.5 mg/dL (8.4-10.2); Carbon Dioxide 19 mmol/L (22-29); Chloride 101 mmol/L (96-108); Estimated Glomerular Filt Rate > 60; Glucose Random 296 mg/dL (60-115); Potassium 3.9 mmol/L (3.3-5.1); Sodium 139 mmol/L (135-145)
[2024-09-17 20:42] LABS: Lactic Acid 4.8 mmol/L (0.5-2.0)
[2024-09-17] MEDS: HYDROmorphone HCl 1 MG/ML SYRINGE IVPUSH (21:12)
[2024-09-17 21:59] LABS: Reflex Lactate? Lactic Acid Added
--- NOTE | 2024-09-17 22:03 | PHA.MEDREC ---
Addendum entered by Antonietta Lin [facility] 09/18/24 10:56: reviewed by [facility]. Addendum entered by Meghan Marcos 09/18/24 10:29: Spoke to patient to confirm insulin pump. Patient has a Tandem Pump. Patient states she has about 3 1/2 days left till next pump fill of Novolog U-100. The pump infuses up to 60 units per days. Patient states she only use Lantus solostar when pump is not working. Patient confirmed she is on Pantoprazole NOT Omeprazole. Updated med rec with new changes. Addendum entered by Barbara Cain [facility] 09/17/24 22:30: [facility] reviewed Original Note: Pharmacy Consult ? Medication Reconciliation Pharmacy has completed the medication reconciliation. Went to speak with patient around 2129 and patient was asleep and did not respond to my calling her name. I went back to try and speak with the patient @8 and patient woke up from her sleep and stated she did not want to be bothered at this time and went back to sleep. I utilized claims to confirm the med rec and we will have Am team follow up with the patient in morning.
--- NOTE | 2024-09-17 23:06 | PM.IMHP ---
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 She unfortunately continues to smoke marijuana and she last smoked earlier today. She has been admitted many times in the past with similar complains. On arrival he was noted to be tachycardic with a heart rate of 139 beats per minute. He was also tachypneic with a respiratory rate of 25 breaths per minute. Initial lab work done in the emergency room was notable for a leukocytosis of 14.3 K, elevated serum lactic acid of 4.8, thrombocytosis with a platelet count of 625, anemia with a hemoglobin of 10.5 g/dl and hyperglycemia with a blood sugar of 296 mg/dl. She received IV Reglan, Hydromorphone and Zosyn (?) following which admission was requested. When I got to see her, she was still nauseated and still could not tolerate oral intake. Review of Systems Review of Systems: Yes all other systems are reviewed and are negative [facility] Medical History (Updated 09/18/24 @ 07:34 by Duke Marquez MD) Intractable nausea and vomiting Diabetic gastroparesis Acute UTI Diabetes mellitus type 1 Chronic hypertension Intractable cyclical vomiting with nausea Diabetes mellitus with gastroparesis Diabetic gastroparesis Herpes zoster Status post fall Recurrent UTI NSTEMI (non-ST elevated myocardial infarction) Diabetic gastroparesis Anxiety Bipolar 1 disorder Pancreatitis Gastroparesis Diabetes Functional capacity: independent ambulation Patient : No Surgical History History of cholecystectomy History of tonsillectomy History of ERCP H/O pyloroplasty History of appendectomy H/O: hysterectomy Social History Household Members: Significant Other Housing: Other Housing Other:: mobile home Do you presently have visiting nurse or other home services: No Unable to assess alcohol history related to: Refusing to respond Alcohol intake: never Comment: pt refused bed alarm Patient Tobacco Use Status: Former Tobacco user Tobacco use type: Cigarette Smoked in Last 30 Days: No e-Cigarette/Vaping Use: Former Use Second Hand Smoke Exposure: No Substance Use Type: Marijuana Advance Directives: Yes Advance Directives Information Provided: Yes Advance Directives on File: Yes Advance Directives Date on File: 12/03/22 Nutrition Risks: No Nutritional Risk Patient : No service: No Current occupational status: disabled Cognitive needs: No Hearing needs: No Vision needs: No Meds Allergies Allergy/AdvReac Type Severity Reaction Status Date / Time morphine [MORPHINE] Allergy Intermediate RASH, Verified 09/17/24 17:18 hives, hives mushroom Allergy Intermediate HIVES/RASH Verified 09/17/24 17:18 Sulfa (Sulfonamide Allergy Mild Rash Verified 09/17/24 17:18 Antibiotics) mushroom Allergy Unknown throat Uncoded 09/17/24 17:18 closes up/difficult breathing mushrooms Allergy Unknown anaphylaxis Uncoded 09/17/24 17:18 Home Medications ?Medication ?Instructions ?Recorded ?Confirmed ?Last Taken ?Type lamotrigine 200 mg tablet 200 mg PO BID 05/11/20 09/17/24 07/23/24 History lorazepam 1 mg tablet 1 mg PO TID PRN Anxiety 05/11/20 09/17/24 07/23/24 History zolpidem 10 mg tablet 10 mg PO BEDTIME 05/11/20 09/17/24 07/23/24 History risperidone 2 mg tablet 2 mg PO BID 09/13/21 09/17/24 07/23/24 History insulin aspart U-100 100 unit/mL 0 - 100 unit subcut DAILY 07/23/24 09/17/24 07/23/24 History subcutaneous solution (Novolog U-100 Insulin aspart) docusate sodium 100 mg capsule 100 mg PO BID 09/17/24 09/17/24 Unknown History glucagon 1 mg solution for 1 mg IM Q15M PRN Hypoglycemia 09/17/24 09/17/24 Unknown History injection (Glucagon Emergency Kit) insulin glargine 100 unit/mL (3 unit subcut 09/17/24 Unknown History mL) subcutaneous pen (Lantus Solostar U-100 Insulin) sennosides 8.6 mg tablet (senna) 8.6 mg PO BID PRN constipation 09/17/24 09/17/24 Unknown History simethicone 80 mg chewable tablet 80 mg PO TID PRN gas 09/17/24 09/17/24 Unknown History subcutaneous insulin pump 09/17/24 09/17/24 Unknown History Physical Exam Vital Signs and Narrative: Vital Signs: Last Vital Signs Temp 98.1 F 09/17/24 23:01 Pulse 111 H 09/17/24 23:01 Resp 17 09/17/24 23:01 BP 154/80 H 09/17/24 23:01 Pulse Ox 96 09/17/24 23:01 O2 Del Method Room Air 09/17/24 23:01 BMI result Body Mass Index 24.3 General: Well nourished ill appearing female in bed. Awake, alert and oriented x 4. No apparent distress Eyes: No pallor or jaundice. PERRLA, EOMI HENT: Moist oral mucus membranes. No oropharyngeal lesions. Neck: Supple. No cervical adenopathy. No JVD Cardiovascular: Regular rate and rhythm. Normal heart sounds. No murmurs, rubs or gallops. No JVD. No peripheral edema. Respiratory: Normal respiratory effort with no accessory muscle use. CTAB. Gastrointestinal: Abdomen is soft, non-tender, non-distended. Normoactive bowel sounds in all quadrants. No hepatosplenomegaly Extremities: No edema. No calf tenderness. Good peripheral pulses Skin: Warm/Dry. No rashes. No mottling. Capillary refill is < 2 seconds Neurological: AAOx4. Intact speech & cognition. Normal gait & balance. CN II - XII grossly intact but not individually tested. No motor or sensory deficits Hematologic: No bleeding. No ecchymosis. No swollen or tender lymph nodes. Psychiatric: Cooperative. Appropriate mood and affect Results Labs 09/18/24 04:50 09/18/24 04:50 Labs: Laboratory Results - last 24 hr 09/17/24 09/17/24 09/17/24 17:01 17:12 17:28 MCV 82.4 MCH 26.7 L MCHC 32.4 RDW 15.9 Plt Count 625 H D MPV 8.7 L Immature Gran % (Auto) 0.4 Neut % (Auto) 90.1 H Lymph % (Auto) 7.8 L [place] % (Auto) 1.3 L Eos % (Auto) 0.0 Baso % (Auto) 0.4 Lymph # (Auto) 1.1 L [place] # (Auto) 0.2 Eos # (Auto) 0.0 Baso # (Auto) 0.1 Abs Immat Gran (auto) 0.06 H Absolute Neuts (auto) 12.9 H Absolute Nucleated RBC 0.000 Nucleated RBC % (auto) 0.0 Smear Tech's Comments VERIFIED VBG pH VBG pCO2 VBG pO2 VBG HCO3 VBG O2 Saturation VBG Base Excess Anion Gap 23 H Estim Creat Clear Calc 58.5 Estimated GFR 49 POC Glucose 368 H* Random Glucose 353 H* Lactic Acid 4.8 H* Calcium 10.0 D Magnesium 1.7 Total Bilirubin 0.2 Direct Bilirubin < 0.2 AST 15 ALT 6 Alkaline Phosphatase 137 H Total Protein 8.7 H Albumin 4.5 Lipase 5 L Beta-Hydroxybutyrate 1.15 H Beta HCG, Quant < 2 Urine Color Urine Appearance Urine pH Ur Specific [place] Urine Protein Urine Glucose (UA) Urine Ketones Urine Blood Urine Nitrite Ur Leukocyte Esterase Urine RBC Urine WBC Ur Squamous Epith Cells Urine Bacteria Hyaline Casts Urine Opiates Screen Ur Buprenorphine Scrn Ur Oxycodone Screen Urine Methadone Screen Urine Fentanyl Screen Ur Barbiturates Screen Ur Phencyclidine Scrn Ur Amphetamines Screen U Benzodiazepines Scrn Urine Cocaine Screen U Marijuana (THC) Screen Influenza Type A (PCR) NEGATIVE Influenza Type B (PCR) NEGATIVE RSV RNA Qual (PCR) NEGATIVE SARS-CoV-2 RNA (RT-PCR) NEGATIVE 09/17/24 09/17/24 09/17/24 17:34 19:16 19:48 MCV MCH MCHC RDW Plt Count MPV Immature Gran % (Auto) Neut % (Auto) Lymph % (Auto) [place] % (Auto) Eos % (Auto) Baso % (Auto) Lymph # (Auto) [place] # (Auto) Eos # (Auto) Baso # (Auto) Abs Immat Gran (auto) Absolute Neuts (auto) Absolute Nucleated RBC Nucleated RBC % (auto) Smear Tech's Comments VBG pH 7.65 H* VBG pCO2 17 VBG pO2 107 VBG HCO3 19 L VBG O2 Saturation 100.0 VBG Base Excess 1.9 Anion Gap 23 H Estim Creat Clear Calc 70.0 Estimated GFR > 60 POC Glucose Random Glucose 296 H Lactic Acid 4.8 H* Calcium 9.5 Magnesium Total Bilirubin Direct Bilirubin AST ALT Alkaline Phosphatase Total Protein Albumin Lipase Beta-Hydroxybutyrate Beta HCG, Quant Urine Color Yellow Urine Appearance Clear Urine pH 7.5 Ur Specific [place] 1.015 Urine Protein 30 (1+) H Urine Glucose (UA) >=1000 H Urine Ketones 15 Urine Blood Small (1+) H Urine Nitrite Negative Ur Leukocyte Esterase Negative Urine RBC 11-20 H Urine WBC 0-5 Ur Squamous Epith Cells 6-10 Urine Bacteria None Seen Hyaline Casts 0-2 Urine Opiates Screen Not Detected Ur Buprenorphine Scrn Not Detected Ur Oxycodone Screen Not Detected Urine Methadone Screen Not Detected Urine Fentanyl Screen Not Detected Ur Barbiturates Screen Not Detected Ur Phencyclidine Scrn Not Detected Ur Amphetamines Screen Not Detected U Benzodiazepines Scrn Not Detected Urine Cocaine Screen Not Detected U Marijuana (THC) Screen POSITIVE H Influenza Type A (PCR) Influenza Type B (PCR) RSV RNA Qual (PCR) SARS-CoV-2 RNA (RT-PCR) Assessment and Plan (1) Intractable nausea and vomiting: Status: Resolved (2) Acidosis, lactic: Status: Acute (3) Type 1 diabetes: Qualifiers: Diabetes mellitus complication status: with other specified complication Qualified Code(s): E10.69 - Type 1 diabetes mellitus with other specified complication Status: Acute (4) Diabetic gastroparesis: Status: Acute Plan 49 year old female with past medical history of type 1 diabetes mellitus (on insulin pump), diabetic gastroparesis, and cyclical vomiting here with: # Intractable nausea & vomiting - chronic/recurrent problem - could be due to gastroparesis vs cyclical vomiting vs cannabinoid hyperemesis syndrome - admit and continue with IV fluids # Type 1 diabetes mellitus - with hyperglycemia with BS of 296 - continue on Insulin pump - monitor blood sugars # SIRS - met criteria for SIRS with tachycardia, tachypnea and leukocytosis - however no obvious foci of infection - will not continue antibiotics for now (received Zosyn) # Lactic acidosis - she is not septic - this is likely with type B lactic acidosis - will give IV fluids and recheck Total time managing care of this patient today: 75 minutes. Quality Stroke Does the patient have a stroke diagnosis?: No VTE Prior VTE?: No VTE Risk Level:: Medical - moderate - high VTE Device Contraindication: N/A - Device Ordered VTE Drug Contraindication: N/A - Med Ordered
[2024-09-17 23:10] LABS: ~Lactic Acid-LAB USE ONLY 1.4 mmol/L (0.5-2.0)
[2024-09-17] MEDS: 0.9 % Sodium Chloride 1,000 ML 999 ML IV (23:41)
[2024-09-17] MEDS: 0.9 % Sodium Chloride 1,000 ML 150 ML IVCONT (23:41)
[2024-09-18] VITALS (8 sets, daily range): BP systolic 115–162; BP diastolic 62–88; PULSE 94–126; RESP 10–20; TEMP 36.7–36.9; O2SAT 96–98
[2024-09-18] MEDS: HYDROmorphone HCl 0.5 MG/0.5 ML SYRINGE IVPUSH ×3 (04:50→12:34)
--- NOTE | 2024-09-18 04:54 | PC.NURSE ---
pt medicated per sep for 910 abdominal pain.
[2024-09-18 05:06] LABS: Basophils Percent Auto 0.3 % (0-2); Hematocrit 31.1 % (37.0-47.0); Hemoglobin 10.3 g/dl (12.0-16.0); Imm Gran Abs Auto 0.08 X10*3/uL (0.00-0.03); Imm Gran Pct Auto 0.6 % (0.0-0.4); Lymphocytes Percent Auto 14.5 % (20-40); MANUAL DIFF FLAG SCAN; Mean Corpuscular HGB Conc 33.1 g/dl (31.0-35.0); Mean Corpuscular Hemoglobin 26.5 pg (27.0-33.0); Mean Corpuscular Volume 80.2 fL (80.0-98.0); Mean Platelet Volume 9.2 fL (9.4-12.3); Monocytes Absolute Auto 0.7 X10*3/uL (0.1-1.2); Monocytes Percent Auto 5.1 % (2-11); Neutrophils Percent Auto 79.5 % (45-73); PLT CLUMP 1; Red Blood Count 3.88 X10*6/uL (4.20-5.50); Red Cell Distribution Width 16.1 % (11.0-16.0); SCAN SMEAR FLAG 1
[2024-09-18 05:21] LABS: Platelet Count 574 X10*3/uL (160-400); White Blood Count 13.9 X10*3/uL (4.8-10.8)
[2024-09-18 05:22] LABS: SLIDE REVIEW VERIFIED
[2024-09-18 05:29] LABS: Alanine Aminotransferase 7 U/L (0-31); Albumin Level 4.2 g/dL (3.5-5.0); Anion Gap 17 (12-20); Aspartate Amino Transferase 16 U/L (5-31); Bilirubin Total 0.3 mg/dL (0.0-1.0); Blood Urea Nitrogen 11 mg/dL (9-16); Calcium 9.5 mg/dL (8.4-10.2); Carbon Dioxide 21 mmol/L (22-29); Chloride 105 mmol/L (96-108); Creatinine Clr Calc Pharmacy 88.1; Estimated Glomerular Filt Rate > 60; Glucose Random 161 mg/dL (60-115); Potassium 3.7 mmol/L (3.3-5.1); Sodium 139 mmol/L (135-145); Total Protein 8.3 g/dL (6.5-8.0)
[2024-09-18 05:38] LABS: Alkaline Phosphatase 128 U/L (39-117)
[2024-09-18] MEDS: 0.9 % Sodium Chloride 1,000 ML 150 ML IVCONT (06:11)
[2024-09-18] MEDS: Enoxaparin Sodium 40 MG/0.4 ML SYRINGE SUBCUT (08:40)
[2024-09-18] MEDS: 0.9 % Sodium Chloride 1,000 ML 999 ML IV (08:43)
[2024-09-18] MEDS: Metoclopramide HCl 10 MG/2 ML VIAL IVPUSH (08:45)
[2024-09-18] MEDS: Dextrose 5 % and Lactated Ring 1,000 ML 150 ML IVCONT ×3 (08:59→23:07)
--- NOTE | 2024-09-18 09:01 | PC.NURSE ---
Pt c/o nausea and stomach pain; declines PO meds at this time; pt medicated per orders for sx's
--- OUTSIDE RECORDS SUMMARY | 2024-09-18 11:31 | XMS_ITS ---
Author Organization [facility] Care Team Providers Care Rn First Assist Name Role Phone Eliseo Castaneda Unavailable Unavailable Allergies and adverse reactions Code CodeSystem Substance Reaction Severity StartDate Concern Status mushrooms Unknown Unknown active Care Team Name Role Address Phone Organization Dates Eliseo Castaneda Attending Physician [address] [place], [address], [place] (Office): : [facility] 08/02/2010 - 08/05/2010 Mental Status Section Date Assessment Total Score Description 08/05/2010 PHQ-9 12 moderate depres john Reason for Referral No Reasons for Referral Entered Social History Social History Observation Description Start Date End Date Code Code System Current Smoking Status Tobacco smoking consumption unknown [id number] SNOMED CT Sex Assigned At Female 1975 [address] [facility]
[2024-09-18 12:42] LABS: Glucose, Whole Blood 217 mg/dL (60-115)
--- NOTE | 2024-09-18 13:35 | MHC.CM.PN ---
PT LIVES WITH IN HOUSE PT STATES SHE DOES NOT RECEIVE SERVICES PT STATES SHE DOES NOT USE DME PT STATES HCP AT HOME. PT'S PCP IS GEOVANNI LYNCH PT'S PRIMARY CONTACT IS SPOUSE, VÍCTOR PRADHAN, PT'S INS IS [facility], IMM DELIVERED PT'S DCP- HOME SELF CARE VS HOME WITH SERVICES VIA PRIVATE TRANSPORT
--- NOTE | 2024-09-18 13:43 | PC.NURSE ---
Pt reports stomach pain not relieved with IV Dilaudid 0.5mg; MD made aware
--- NOTE | 2024-09-18 14:54 | P.PNIM_ITS ---
Subjective Subjective Date of Service: 09/18/24 Physical Exam 2 Vital Signs: Vital Signs: Last Vital Signs Temp 98.1 F 09/18/24 14:38 Pulse 113 H 09/18/24 14:38 Resp 14 09/18/24 14:38 BP 156/85 H 09/18/24 14:38 Pulse Ox 97 09/18/24 14:38 O2 Del Method Room Air 09/18/24 14:38 O2 Flow Rate 99 09/18/24 14:38 BMI result Body Mass Index 24.3 Objective Data Active Medications Acetaminophen (Acetaminophen 325 Mg Tablet) 650 mg PO Q6H PRN PRN Reason: Pain, Mild 1-3,fever,headache Al Hydroxide/Mg Hydroxide (Magnesium Hydrox/Alum Hydrox 30 Ml Oral.Susp) 30 ml PO Q4H PRN PRN Reason: Heartburn Calcium Carbonate (Calcium Carbonate 750 Mg Tab.Chew) 750 mg PO Q4H PRN PRN Reason: Heartburn Docusate Sodium (Docusate Sodium 100 Mg Capsule) 100 mg PO BID [facility] Last Admin: 09/18/24 09:39 Dose: Not Given Documented By: RACHID Non-Admin Reason: Nausea Enoxaparin Sodium (Enoxaparin Sodium 40 Mg/0.4 Ml Syringe) 40 mg SUBCUT Q24H [facility] Last Admin: 09/18/24 08:40 Dose: 40 mg Documented By: RACHID Hydromorphone HCl (Hydromorphone Hcl 0.5 Mg/0.5 Ml Syringe) 0.5 mg IVPUSH Q4H PRN; Protocol PRN Reason: Pain, Severe (Pain Scale 7-10) Last Admin: 09/18/24 12:34 Dose: 0.5 mg Documented By: RACHID Dextrose/Lactated Ringer's (D5lr) 1,000 mls @ 150 mls/hr IVCONT .Q6H40M [facility] Last Admin: 09/18/24 08:59 Dose: 150 mls/hr Documented By: RACHID Lamotrigine (Lamotrigine 100 Mg Tablet) 200 mg PO BID [facility] Last Admin: 09/18/24 09:40 Dose: Not Given Documented By: RACHID Non-Admin Reason: Nausea Lorazepam (Lorazepam 1 Mg Tablet) 1 mg PO TID PRN PRN Reason: Anxiety Magnesium Hydroxide (Milk Of Magnesia 30 Ml Oral.Susp) 30 ml PO DAILY PRN PRN Reason: Constipation Melatonin (Melatonin 3 Mg Tablet) 6 mg PO BEDTIME PRN PRN Reason: Insomnia Metoclopramide HCl (Metoclopramide Hcl 10 Mg/2 Ml Vial) 10 mg IVPUSH Q6H PRN PRN Reason: Nausea and Vomiting Last Admin: 09/18/24 08:45 Dose: 10 mg Documented By: RACHID Metoprolol Tartrate (Metoprolol Tartrate 25 Mg Tablet) 25 mg PO BID [facility]; Protocol Last Admin: 09/18/24 09:40 Dose: Not Given Documented By: RACHID Non-Admin Reason: Nausea Midodrine (Midodrine Hcl 5 Mg Tablet) 5 mg PO DAILY [facility] Last Admin: 09/18/24 09:40 Dose: Not Given Documented By: RACHID Non-Admin Reason: Nausea Omeprazole (Omeprazole 20 Mg Capsule.Dr) 20 mg PO BID [facility] Last Admin: 09/18/24 09:40 Dose: Not Given Documented By: RACHID Non-Admin Reason: Nausea Ondansetron HCl (Ondansetron Hcl 4 Mg/2 Ml Vial) 4 mg IVPUSH Q8H PRN PRN Reason: Nausea and Vomiting Oxycodone HCl (Oxycodone Hcl Immed Release 5 Mg Tablet) 5 mg PO Q6H PRN PRN Reason: Pain, Severe (Pain Scale 7-10) Risperidone (Risperidone 2 Mg Tablet) 2 mg PO BID [facility] Last Admin: 09/18/24 09:40 Dose: Not Given Documented By: RACHID Non-Admin Reason: Nausea Senna (Sennosides 8.6 Mg Tablet) 17.2 mg PO BEDTIME PRN PRN Reason: Constipation Senna (Sennosides 8.6 Mg Tablet) 8.6 mg PO BID PRN PRN Reason: constipation Simethicone (Simethicone 80 Mg Tab.Chew) 80 mg PO TID PRN PRN Reason: gas Sodium Chloride (0.9 % Sodium Chloride Flush 3 Ml Syringe) 3 ml IVFLUSH QSHIFT [facility] Last Admin: 09/18/24 09:08 Dose: Not Given Documented By: RACHID Non-Admin Reason: IV Running Zolpidem Tartrate (Zolpidem Tartrate 5 Mg Tablet) 10 mg PO BEDTIME [facility] Labs 09/18/24 04:50 09/18/24 04:50 Labs: Laboratory Results - last 24 hr 09/17/24 09/17/24 09/17/24 17:01 17:12 17:28 MCV 82.4 MCH 26.7 L MCHC 32.4 RDW 15.9 Plt Count 625 H D MPV 8.7 L Immature Gran % (Auto) 0.4 Neut % (Auto) 90.1 H Lymph % (Auto) 7.8 L [place] % (Auto) 1.3 L Eos % (Auto) 0.0 Baso % (Auto) 0.4 Lymph # (Auto) 1.1 L [place] # (Auto) 0.2 Eos # (Auto) 0.0 Baso # (Auto) 0.1 Abs Immat Gran (auto) 0.06 H Absolute Neuts (auto) 12.9 H Absolute Nucleated RBC 0.000 Nucleated RBC % (auto) 0.0 Smear Tech's Comments VERIFIED VBG pH VBG pCO2 VBG pO2 VBG HCO3 VBG O2 Saturation VBG Base Excess Anion Gap 23 H Estim Creat Clear Calc 58.5 Estimated GFR 49 POC Glucose 368 H* Random Glucose 353 H* Lactic Acid 4.8 H* Lactic Acid F/U @ 2Hr Calcium 10.0 D Magnesium 1.7 Total Bilirubin 0.2 Direct Bilirubin < 0.2 AST 15 ALT 6 Alkaline Phosphatase 137 H Total Protein 8.7 H Albumin 4.5 Lipase 5 L Beta-Hydroxybutyrate 1.15 H Beta HCG, Quant < 2 Urine Color Urine Appearance Urine pH Ur Specific [place] Urine Protein Urine Glucose (UA) Urine Ketones Urine Blood Urine Nitrite Ur Leukocyte Esterase Urine RBC Urine WBC Ur Squamous Epith Cells Urine Bacteria Hyaline Casts Urine Opiates Screen Ur Buprenorphine Scrn Ur Oxycodone Screen Urine Methadone Screen Urine Fentanyl Screen Ur Barbiturates Screen Ur Phencyclidine Scrn Ur Amphetamines Screen U Benzodiazepines Scrn Urine Cocaine Screen U Marijuana (THC) Screen Influenza Type A (PCR) NEGATIVE Influenza Type B (PCR) NEGATIVE RSV RNA Qual (PCR) NEGATIVE SARS-CoV-2 RNA (RT-PCR) NEGATIVE 09/17/24 09/17/24 09/17/24 17:34 19:16 19:48 MCV MCH MCHC RDW Plt Count MPV Immature Gran % (Auto) Neut % (Auto) Lymph % (Auto) [place] % (Auto) Eos % (Auto) Baso % (Auto) Lymph # (Auto) [place] # (Auto) Eos # (Auto) Baso # (Auto) Abs Immat Gran (auto) Absolute Neuts (auto) Absolute Nucleated RBC Nucleated RBC % (auto) Smear Tech's Comments VBG pH 7.65 H* VBG pCO2 17 VBG pO2 107 VBG HCO3 19 L VBG O2 Saturation 100.0 VBG Base Excess 1.9 Anion Gap 23 H Estim Creat Clear Calc 70.0 Estimated GFR > 60 POC Glucose Random Glucose 296 H Lactic Acid 4.8 H* Lactic Acid F/U @ 2Hr Calcium 9.5 Magnesium Total Bilirubin Direct Bilirubin AST ALT Alkaline Phosphatase Total Protein Albumin Lipase Beta-Hydroxybutyrate Beta HCG, Quant Urine Color Yellow Urine Appearance Clear Urine pH 7.5 Ur Specific [place] 1.015 Urine Protein 30 (1+) H Urine Glucose (UA) >=1000 H Urine Ketones 15 Urine Blood Small (1+) H Urine Nitrite Negative Ur Leukocyte Esterase Negative Urine RBC 11-20 H Urine WBC 0-5 Ur Squamous Epith Cells 6-10 Urine Bacteria None Seen Hyaline Casts 0-2 Urine Opiates Screen Not Detected Ur Buprenorphine Scrn Not Detected Ur Oxycodone Screen Not Detected Urine Methadone Screen Not Detected Urine Fentanyl Screen Not Detected Ur Barbiturates Screen Not Detected Ur Phencyclidine Scrn Not Detected Ur Amphetamines Screen Not Detected U Benzodiazepines Scrn Not Detected Urine Cocaine Screen Not Detected U Marijuana (THC) Screen POSITIVE H Influenza Type A (PCR) Influenza Type B (PCR) RSV RNA Qual (PCR) SARS-CoV-2 RNA (RT-PCR) 09/17/24 09/18/24 09/18/24 22:51 04:50 12:32 MCV 80.2 MCH 26.5 L MCHC 33.1 RDW 16.1 H Plt Count 574 H MPV 9.2 L Immature Gran % (Auto) 0.6 H Neut % (Auto) 79.5 H Lymph % (Auto) 14.5 L [place] % (Auto) 5.1 Eos % (Auto) 0.0 Baso % (Auto) 0.3 Lymph # (Auto) 2.0 [place] # (Auto) 0.7 Eos # (Auto) 0.0 Baso # (Auto) 0.0 Abs Immat Gran (auto) 0.08 H Absolute Neuts (auto) 11.0 H Absolute Nucleated RBC 0.000 Nucleated RBC % (auto) 0.0 Smear Tech's Comments VERIFIED VBG pH VBG pCO2 VBG pO2 VBG HCO3 VBG O2 Saturation VBG Base Excess Anion Gap 17 Estim Creat Clear Calc 88.1 Estimated GFR > 60 POC Glucose 217 H Random Glucose 161 H Lactic Acid Lactic Acid F/U @ 2Hr 1.4 Calcium 9.5 Magnesium Total Bilirubin 0.3 Direct Bilirubin AST 16 ALT 7 Alkaline Phosphatase 128 H Total Protein 8.3 H Albumin 4.2 Lipase Beta-Hydroxybutyrate Beta HCG, Quant Urine Color Urine Appearance Urine pH Ur Specific [place] Urine Protein Urine Glucose (UA) Urine Ketones Urine Blood Urine Nitrite Ur Leukocyte Esterase Urine RBC Urine WBC Ur Squamous Epith Cells Urine Bacteria Hyaline Casts Urine Opiates Screen Ur Buprenorphine Scrn Ur Oxycodone Screen Urine Methadone Screen Urine Fentanyl Screen Ur Barbiturates Screen Ur Phencyclidine Scrn Ur Amphetamines Screen U Benzodiazepines Scrn Urine Cocaine Screen U Marijuana (THC) Screen Influenza Type A (PCR) Influenza Type B (PCR) RSV RNA Qual (PCR) SARS-CoV-2 RNA (RT-PCR) Assessment and Plan (1) Acidosis, lactic: Status: Acute (2) Insomnia: Status: Acute (3) Type 1 diabetes: Status: Acute (4) Diabetic gastroparesis: Status: Acute Plan 49 year old female with past medical history of type 1 diabetes mellitus (on insulin pump), diabetic gastroparesis, and cyclical vomiting here with: SIRS no clear souce of infection will not continue antibiotics Lactic acidosis no evidence of sepsis resolved with IVF bolus Gastroparesis/cyclic vomiting syndrome with intractable abdominal pain and vomiting. leukocytosis reactive change IV fluids to D5RL Pain control with Dilaudid IV Reglan 10 mg IV q6 prn Bowel regimen Ativan for anxiety advance diet as tolerated; clears now Diabetes on insulin pump continue home insulin pump Chronic anemia. monitor H&H. Mood disorder Risperidone and LAmotrigine DVT prophylaxis: Lovenox Code status: Full Patient will need hospitalization overnight for intractable nausea\vomiting treatment with antiemetic therapy, pain control with IV analgesia, IV fluids and glucose control with insulin. Quality Quality Stroke Does the patient have a stroke diagnosis?: No VTE Prior VTE?: No VTE Risk Level:: Medical - moderate - high VTE Device Contraindication: N/A - Device Ordered VTE Drug Contraindication: N/A - Med Ordered
[2024-09-18] MEDS: HYDROmorphone HCl 0.5 MG/0.5 ML SYRINGE 1 MG IVPUSH ×2 (15:34→20:09)
[2024-09-18] MEDS: oxyCODONE HCl Immed Release 5 MG TABLET PO (17:28)
[2024-09-18] MEDS: ondansetron HCL 4 MG/2 ML VIAL IVPUSH (17:29)
[2024-09-18] MEDS: Omeprazole 20 MG CAPSULE.DR PO (20:07)
[2024-09-18] MEDS: lamoTRIgine 100 MG TABLET 200 MG PO (20:08)
[2024-09-18] MEDS: Metoprolol Tartrate 25 MG TABLET PO (20:08)
[2024-09-18] MEDS: Zolpidem Tartrate 5 MG TABLET 10 MG PO (20:08)
[2024-09-18] MEDS: risperiDONE 2 MG TABLET PO (20:08)
[2024-09-19] VITALS (7 sets, daily range): BP systolic 102–156; BP diastolic 56–80; PULSE 85–117; RESP 16–20; TEMP 36.3–37; O2SAT 95–99
[2024-09-19] MEDS: HYDROmorphone HCl 0.5 MG/0.5 ML SYRINGE 1 MG IVPUSH ×3 (00:48→13:21)
[2024-09-19] MEDS: oxyCODONE HCl Immed Release 5 MG TABLET PO ×3 (03:03→16:49)
[2024-09-19] MEDS: ondansetron HCL 4 MG/2 ML VIAL IVPUSH (03:03)
[2024-09-19] MEDS: Dextrose 5 % and Lactated Ring 1,000 ML 150 ML IVCONT ×3 (05:40→23:58)
[2024-09-19 07:29] LABS: Glucose, Whole Blood 128 mg/dL (60-115)
[2024-09-19 07:55] LABS: MANUAL DIFF FLAG NO
[2024-09-19 08:02] LABS: Basophils Absolute Auto 0.1 X10*3/uL (0.0-0.2); Basophils Percent Auto 0.6 % (0-2); Eosinophils Absolute Auto 0.1 X10*3/uL (0.0-0.4); Eosinophils Percent Auto 0.6 % (0-4); Hemoglobin 8.3 g/dl (12.0-16.0); Imm Gran Abs Auto 0.04 X10*3/uL (0.00-0.03); Imm Gran Pct Auto 0.3 % (0.0-0.4); Lymphocytes Absolute Auto 3.7 X10*3/uL (1.2-4.9); Lymphocytes Percent Auto 27.3 % (20-40); Mean Corpuscular HGB Conc 31.9 g/dl (31.0-35.0); Mean Corpuscular Hemoglobin 26.5 pg (27.0-33.0); Mean Corpuscular Volume 83.1 fL (80.0-98.0); Mean Platelet Volume 8.8 fL (9.4-12.3); Monocytes Percent Auto 7.6 % (2-11); Neutrophils Absolute Auto 8.6 x10*3/uL (2.0-8.3); Neutrophils Percent Auto 63.6 % (45-73); Platelet Count 504 X10*3/uL (160-400); Red Blood Count 3.13 X10*6/uL (4.20-5.50); Red Cell Distribution Width 15.8 % (11.0-16.0); White Blood Count 13.5 X10*3/uL (4.8-10.8)
[2024-09-19 08:27] LABS: Anion Gap 10 (12-20); Blood Urea Nitrogen 7 mg/dL (9-16); Calcium 8.7 mg/dL (8.4-10.2); Carbon Dioxide 28 mmol/L (22-29); Chloride 104 mmol/L (96-108); Creatinine Clr Calc Pharmacy 99.8; Estimated Glomerular Filt Rate > 60; Glucose Random 137 mg/dL (60-115); Sodium 139 mmol/L (135-145)
[2024-09-19] MEDS: LORazepam 1 MG TABLET PO (10:41)
[2024-09-19] MEDS: risperiDONE 2 MG TABLET PO ×2 (10:41→20:00)
[2024-09-19] MEDS: Midodrine HCl 5 MG TABLET PO (10:42)
[2024-09-19] MEDS: Simethicone 80 MG TAB.CHEW PO ×2 (10:42→16:49)
[2024-09-19] MEDS: Omeprazole 20 MG CAPSULE.DR PO ×2 (10:42→19:59)
[2024-09-19] MEDS: lamoTRIgine 100 MG TABLET 200 MG PO ×2 (10:43→20:00)
[2024-09-19] MEDS: Metoprolol Tartrate 25 MG TABLET PO ×2 (10:43→19:59)
[2024-09-19] MEDS: Docusate Sodium 100 MG CAPSULE PO ×2 (10:43→20:00)
[2024-09-19] MEDS: 0.9 % Sodium Chloride Flush 3 ML SYRINGE IVFLUSH ×2 (10:44→16:52)
[2024-09-19] MEDS: Enoxaparin Sodium 40 MG/0.4 ML SYRINGE SUBCUT (10:44)
--- NOTE | 2024-09-19 10:45 | P.PNIM_ITS ---
Subjective Subjective Date of Service: 09/19/24 Interval History: seen and evaluated report dryheaving and intolerence to food no other events Review of Systems Review of Systems: Yes all other systems are reviewed and are negative Physical Exam 2 Vital Signs: Vital Signs: Last Vital Signs Temp 98.3 F 09/19/24 07:02 Pulse 106 H 09/19/24 07:02 Resp 20 09/19/24 07:02 BP 130/72 09/19/24 07:02 Pulse Ox 99 09/19/24 07:02 O2 Del Method Room Air 09/19/24 07:02 O2 Flow Rate 99 09/18/24 14:38 BMI result Body Mass Index 24.3 Const: Other: Constitutional : Awake, interactive, in mild distress, anxious Neck : Normal inspection, Supple Cardiovascular : RRR, no JVP, no lower extremity edema Respiratory : good bilateral air entry, no crackles, wheezes or rhonchi Gastrointestinal: soft, lax, Normal bowel sounds, mild epigastric tenderness Skin : Warm, Dry Neurological : Alert & oriented x3, No focal deficit Objective Data Active Medications Acetaminophen (Acetaminophen 325 Mg Tablet) 650 mg PO Q6H PRN PRN Reason: Pain, Mild 1-3,fever,headache Al Hydroxide/Mg Hydroxide (Magnesium Hydrox/Alum Hydrox 30 Ml Oral.Susp) 30 ml PO Q4H PRN PRN Reason: Heartburn Calcium Carbonate (Calcium Carbonate 750 Mg Tab.Chew) 750 mg PO Q4H PRN PRN Reason: Heartburn Docusate Sodium (Docusate Sodium 100 Mg Capsule) 100 mg PO BID [facility] Last Admin: 09/18/24 20:09 Dose: Not Given Documented By: MARCIA Non-Admin Reason: Patient Refused Enoxaparin Sodium (Enoxaparin Sodium 40 Mg/0.4 Ml Syringe) 40 mg SUBCUT Q24H [facility] Last Admin: 09/18/24 08:40 Dose: 40 mg Documented By: RACHID Hydromorphone HCl (Hydromorphone Hcl 0.5 Mg/0.5 Ml Syringe) 1 mg IVPUSH Q4H PRN; Protocol PRN Reason: Pain, Severe (Pain Scale 7-10) Last Admin: 09/19/24 05:21 Dose: 1 mg Documented By: MARCIA Dextrose/Lactated Ringer's (D5lr) 1,000 mls @ 150 mls/hr IVCONT .Q6H40M [facility] Last Admin: 09/19/24 05:40 Dose: 150 mls/hr Documented By: MARCIA Lamotrigine (Lamotrigine 100 Mg Tablet) 200 mg PO BID [facility] Last Admin: 09/18/24 20:08 Dose: 200 mg Documented By: MARCIA Lorazepam (Lorazepam 1 Mg Tablet) 1 mg PO TID PRN PRN Reason: Anxiety Magnesium Hydroxide (Milk Of Magnesia 30 Ml Oral.Susp) 30 ml PO DAILY PRN PRN Reason: Constipation Melatonin (Melatonin 3 Mg Tablet) 6 mg PO BEDTIME PRN PRN Reason: Insomnia Metoclopramide HCl (Metoclopramide Hcl 10 Mg/2 Ml Vial) 10 mg IVPUSH Q6H PRN PRN Reason: Nausea and Vomiting Last Admin: 09/18/24 08:45 Dose: 10 mg Documented By: RACHID Metoprolol Tartrate (Metoprolol Tartrate 25 Mg Tablet) 25 mg PO BID [facility]; Protocol Last Admin: 09/18/24 20:08 Dose: 25 mg Documented By: MARCIA Midodrine (Midodrine Hcl 5 Mg Tablet) 5 mg PO DAILY [facility] Last Admin: 09/18/24 09:40 Dose: Not Given Documented By: RACHID Non-Admin Reason: Nausea Omeprazole (Omeprazole 20 Mg Capsule.Dr) 20 mg PO BID [facility] Last Admin: 09/18/24 20:07 Dose: 20 mg Documented By: MARCIA Ondansetron HCl (Ondansetron Hcl 4 Mg/2 Ml Vial) 4 mg IVPUSH Q8H PRN PRN Reason: Nausea and Vomiting Last Admin: 09/19/24 03:03 Dose: 4 mg Documented By: MARCIA Oxycodone HCl (Oxycodone Hcl Immed Release 5 Mg Tablet) 5 mg PO Q6H PRN PRN Reason: Pain, Moderate(Pain Scale 4-6) Last Admin: 09/19/24 03:03 Dose: 5 mg Documented By: MARCIA Polyethylene Glycol (Polyethylene Glycol 3350 17 Gm Powd.Pack) 17 gm PO DAILY [facility] Last Admin: 09/18/24 16:02 Dose: Not Given Documented By: RACHID Non-Admin Reason: Nausea Risperidone (Risperidone 2 Mg Tablet) 2 mg PO BID [facility] Last Admin: 09/18/24 20:08 Dose: 2 mg Documented By: MARCIA Senna (Sennosides 8.6 Mg Tablet) 8.6 mg PO BID PRN PRN Reason: constipation Senna (Sennosides 8.6 Mg Tablet) 17.2 mg PO BEDTIME [facility] Last Admin: 09/18/24 20:07 Dose: Not Given Documented By: MARCIA Non-Admin Reason: Patient Refused Simethicone (Simethicone 80 Mg Tab.Chew) 80 mg PO TID [facility] Last Admin: 09/18/24 20:14 Dose: Not Given Documented By: MARCIA Non-Admin Reason: Patient Refused Sodium Chloride (0.9 % Sodium Chloride Flush 3 Ml Syringe) 3 ml IVFLUSH QSHIFT [facility] Last Admin: 09/18/24 23:08 Dose: Not Given Documented By: MARCIA Non-Admin Reason: IV Running Zolpidem Tartrate (Zolpidem Tartrate 5 Mg Tablet) 10 mg PO BEDTIME [facility] Last Admin: 09/18/24 20:08 Dose: 10 mg Documented By: MARCIA Labs 09/19/24 07:20 09/19/24 07:20 Labs: Laboratory Results - last 24 hr 09/18/24 09/19/24 09/19/24 12:32 07:20 07:26 MCV 83.1 MCH 26.5 L MCHC 31.9 RDW 15.8 Plt Count 504 H MPV 8.8 L Immature Gran % (Auto) 0.3 Neut % (Auto) 63.6 Lymph % (Auto) 27.3 [place] % (Auto) 7.6 Eos % (Auto) 0.6 Baso % (Auto) 0.6 Lymph # (Auto) 3.7 [place] # (Auto) 1.0 Eos # (Auto) 0.1 Baso # (Auto) 0.1 Abs Immat Gran (auto) 0.04 H Absolute Neuts (auto) 8.6 H Absolute Nucleated RBC 0.000 Nucleated RBC % (auto) 0.0 Anion Gap 10 L Estim Creat Clear Calc 99.8 Estimated GFR > 60 POC Glucose 217 H 128 H Random Glucose 137 H Calcium 8.7 D Microbiology Microbiology Results: Microbiology 09/17/24 17:28 Blood Culture - Preliminary Blood - Venous No growth after 24 hours. 09/17/24 17:28 Blood Culture - Preliminary Blood - Venous No growth after 24 hours. Assessment and Plan (1) Acidosis, lactic: Status: Acute (2) Diabetic gastroparesis: Status: Acute (3) Intractable cyclical vomiting with nausea: Status: Acute Plan 49 year old female with past medical history of type 1 diabetes mellitus (on insulin pump), diabetic gastroparesis, and cyclical vomiting here with: Gastroparesis/cyclic vomiting syndrome with intractable abdominal pain and vomiting. leukocytosis reactive Continue 150cc\hr D5RL Pain control with Dilaudid IV Reglan 10 mg IV q6 prn Bowel regimen Ativan for anxiety advance diet as tolerated; clears now Lactic acidosis no evidence of sepsis resolved with IVF bolus Diabetes on insulin pump continue home insulin pump Chronic anemia. monitor H&H. Mood disorder Risperidone and LAmotrigine DVT prophylaxis: Lovenox Code status: Full Patient will need hospitalization overnight for intractable nausea\vomiting treatment with antiemetic therapy, pain control with IV analgesia, IV fluids and glucose control with insulin. Quality Quality Stroke Does the patient have a stroke diagnosis?: No VTE Prior VTE?: No VTE Risk Level:: Medical - moderate - high VTE Device Contraindication: N/A - Device Ordered VTE Drug Contraindication: N/A - Med Ordered
[2024-09-19] MEDS: Metoclopramide HCl 10 MG/2 ML VIAL IVPUSH (10:47)
[2024-09-19 10:52] LABS: Glucose, Whole Blood 132 mg/dL (60-115)
[2024-09-19 18:03] LABS: COVID-19 Test Negative (Negative); IDNOW Serial# 08D9AD1C
[2024-09-19] MEDS: Zolpidem Tartrate 5 MG TABLET 10 MG PO (19:59)
[2024-09-19] MEDS: HYDROmorphone HCl 0.5 MG/0.5 ML SYRINGE IVPUSH (20:00)
[2024-09-19 20:26] LABS: Glucose, Whole Blood 112 mg/dL (60-115)
[2024-09-19 21:44] LABS: Glucose, Whole Blood 178 mg/dL (60-115)
[2024-09-20 04:00] VITALS: BP 136/64; PULSE 97; RESP 16; TEMP 36.6; O2SAT 97
[2024-09-20] MEDS: HYDROmorphone HCl 0.5 MG/0.5 ML SYRINGE IVPUSH ×4 (05:17→20:47)
[2024-09-20 07:05] LABS: Glucose, Whole Blood 159 mg/dL (60-115)
[2024-09-20 07:21] VITALS: BP 122/62; PULSE 89; RESP 18; TEMP 36.8; O2SAT 96
[2024-09-20 07:30] LABS: MANUAL DIFF FLAG NO
[2024-09-20 07:32] LABS: Basophils Absolute Auto 0.1 X10*3/uL (0.0-0.2); Basophils Percent Auto 0.8 % (0-2); Eosinophils Absolute Auto 0.1 X10*3/uL (0.0-0.4); Eosinophils Percent Auto 1.5 % (0-4); Hematocrit 25.1 % (37.0-47.0); Hemoglobin 8.2 g/dl (12.0-16.0); Imm Gran Abs Auto 0.02 X10*3/uL (0.00-0.03); Imm Gran Pct Auto 0.2 % (0.0-0.4); Lymphocytes Absolute Auto 3.1 X10*3/uL (1.2-4.9); Lymphocytes Percent Auto 35.8 % (20-40); Mean Corpuscular HGB Conc 32.7 g/dl (31.0-35.0); Mean Corpuscular Hemoglobin 26.6 pg (27.0-33.0); Mean Corpuscular Volume 81.5 fL (80.0-98.0); Mean Platelet Volume 8.8 fL (9.4-12.3); Monocytes Absolute Auto 0.6 X10*3/uL (0.1-1.2); Monocytes Percent Auto 7.5 % (2-11); Neutrophils Absolute Auto 4.6 x10*3/uL (2.0-8.3); Neutrophils Percent Auto 54.2 % (45-73); Platelet Count 475 X10*3/uL (160-400); Red Blood Count 3.08 X10*6/uL (4.20-5.50); White Blood Count 8.5 X10*3/uL (4.8-10.8)
[2024-09-20] MEDS: risperiDONE 2 MG TABLET PO ×2 (07:50→20:46)
[2024-09-20] MEDS: oxyCODONE HCl Immed Release 5 MG TABLET PO ×3 (07:50→23:30)
[2024-09-20] MEDS: lamoTRIgine 100 MG TABLET 200 MG PO ×2 (07:50→20:47)
[2024-09-20] MEDS: Simethicone 80 MG TAB.CHEW PO ×2 (07:50→15:25)
[2024-09-20] MEDS: Midodrine HCl 5 MG TABLET PO (07:50)
[2024-09-20] MEDS: Omeprazole 20 MG CAPSULE.DR PO ×2 (07:50→20:47)
[2024-09-20] MEDS: Enoxaparin Sodium 40 MG/0.4 ML SYRINGE SUBCUT (07:51)
[2024-09-20] MEDS: Metoprolol Tartrate 25 MG TABLET PO ×2 (07:51→20:47)
[2024-09-20] MEDS: Docusate Sodium 100 MG CAPSULE PO (07:51)
[2024-09-20] MEDS: LORazepam 1 MG TABLET PO ×2 (07:51→15:25)
[2024-09-20] MEDS: 0.9 % Sodium Chloride Flush 3 ML SYRINGE IVFLUSH ×2 (07:51→15:32)
[2024-09-20 07:55] LABS: Anion Gap 10 (12-20); Blood Urea Nitrogen 5 mg/dL (9-16); Calcium 8.6 mg/dL (8.4-10.2); Carbon Dioxide 30 mmol/L (22-29); Chloride 104 mmol/L (96-108); Creatinine Clr Calc Pharmacy 102.9; Estimated Glomerular Filt Rate > 60; Glucose Random 162 mg/dL (60-115); Potassium 2.9 mmol/L (3.3-5.1); Sodium 141 mmol/L (135-145)
[2024-09-20] MEDS: Potassium Chloride/H20 10 MEQ/100 ML PIGGYBACK 100 MEQ IV ×4 (08:01→16:40)
[2024-09-20 10:49] LABS: Glucose, Whole Blood 116 mg/dL (60-115)
[2024-09-20] MEDS: ondansetron HCL 4 MG/2 ML VIAL IVPUSH ×2 (12:06→17:48)
--- NOTE | 2024-09-20 14:48 | P.PNIM_ITS ---
Subjective Subjective Date of Service: 09/20/24 Interval History: seen and evaluated report dry heaving and intolerence to food having pain in her abdomen no other events Review of Systems Review of Systems: Yes all other systems are reviewed and are negative Physical Exam 2 Vital Signs: Vital Signs: Last Vital Signs Temp 98.3 F 09/20/24 07:21 Pulse 89 09/20/24 07:21 Resp 18 09/20/24 07:21 BP 122/62 09/20/24 07:21 Pulse Ox 96 09/20/24 07:21 O2 Del Method Room Air 09/20/24 07:21 O2 Flow Rate 99 09/18/24 14:38 BMI result Body Mass Index 24.3 Const: Other: Constitutional : Awake, interactive, in mild distress, anxious Neck : Normal inspection, Supple Cardiovascular : RRR, no JVP, no lower extremity edema Respiratory : good bilateral air entry, no crackles, wheezes or rhonchi Gastrointestinal: soft, lax, Normal bowel sounds, mild epigastric tenderness Skin : Warm, Dry Neurological : Alert & oriented x3, No focal deficit Objective Data Active Medications Acetaminophen (Acetaminophen 325 Mg Tablet) 650 mg PO Q6H PRN PRN Reason: Pain, Mild 1-3,fever,headache Al Hydroxide/Mg Hydroxide (Magnesium Hydrox/Alum Hydrox 30 Ml Oral.Susp) 30 ml PO Q4H PRN PRN Reason: Heartburn Calcium Carbonate (Calcium Carbonate 750 Mg Tab.Chew) 750 mg PO Q4H PRN PRN Reason: Heartburn Docusate Sodium (Docusate Sodium 100 Mg Capsule) 100 mg PO BID [facility] Last Admin: 09/20/24 07:51 Dose: 100 mg Documented By: MONIKA Enoxaparin Sodium (Enoxaparin Sodium 40 Mg/0.4 Ml Syringe) 40 mg SUBCUT Q24H [facility] Last Admin: 09/20/24 07:51 Dose: 40 mg Documented By: MONIKA Hydromorphone HCl (Hydromorphone Hcl 0.5 Mg/0.5 Ml Syringe) 0.5 mg IVPUSH Q4H PRN; Protocol PRN Reason: Pain, Severe (Pain Scale 7-10) Last Admin: 09/20/24 12:06 Dose: 0.5 mg Documented By: MONIKA Lamotrigine (Lamotrigine 100 Mg Tablet) 200 mg PO BID [facility] Last Admin: 09/20/24 07:50 Dose: 200 mg Documented By: MONIKA Lorazepam (Lorazepam 1 Mg Tablet) 1 mg PO TID PRN PRN Reason: Anxiety Last Admin: 09/20/24 07:51 Dose: 1 mg Documented By: MONIKA Magnesium Hydroxide (Milk Of Magnesia 30 Ml Oral.Susp) 30 ml PO DAILY PRN PRN Reason: Constipation Melatonin (Melatonin 3 Mg Tablet) 6 mg PO BEDTIME PRN PRN Reason: Insomnia Metoclopramide HCl (Metoclopramide Hcl 10 Mg/2 Ml Vial) 10 mg IVPUSH Q6H PRN PRN Reason: Nausea and Vomiting Last Admin: 09/19/24 10:47 Dose: 10 mg Documented By: LEI Metoprolol Tartrate (Metoprolol Tartrate 25 Mg Tablet) 25 mg PO BID [facility]; Protocol Last Admin: 09/20/24 07:51 Dose: 25 mg Documented By: MONIKA Midodrine (Midodrine Hcl 5 Mg Tablet) 5 mg PO DAILY [facility] Last Admin: 09/20/24 07:50 Dose: 5 mg Documented By: MONIKA Omeprazole (Omeprazole 20 Mg Capsule.Dr) 20 mg PO BID [facility] Last Admin: 09/20/24 07:50 Dose: 20 mg Documented By: MONIKA Ondansetron HCl (Ondansetron Hcl 4 Mg/2 Ml Vial) 4 mg IVPUSH Q8H [facility] Last Admin: 09/20/24 12:06 Dose: 4 mg Documented By: MONIKA Oxycodone HCl (Oxycodone Hcl Immed Release 5 Mg Tablet) 5 mg PO Q6H PRN PRN Reason: Pain, Moderate(Pain Scale 4-6) Last Admin: 09/20/24 07:50 Dose: 5 mg Documented By: MONIKA Polyethylene Glycol (Polyethylene Glycol 3350 17 Gm Powd.Pack) 17 gm PO DAILY [facility] Last Admin: 09/20/24 07:46 Dose: Not Given Documented By: MONIKA Non-Admin Reason: Patient Refused Risperidone (Risperidone 2 Mg Tablet) 2 mg PO BID [facility] Last Admin: 09/20/24 07:50 Dose: 2 mg Documented By: MONIKA Senna (Sennosides 8.6 Mg Tablet) 8.6 mg PO BID PRN PRN Reason: constipation Senna (Sennosides 8.6 Mg Tablet) 17.2 mg PO BEDTIME [facility] Last Admin: 09/19/24 20:00 Dose: Not Given Documented By: MARCIA Non-Admin Reason: Patient Refused Simethicone (Simethicone 80 Mg Tab.Chew) 80 mg PO TID [facility] Last Admin: 09/20/24 07:50 Dose: 80 mg Documented By: MONIKA Sodium Chloride (0.9 % Sodium Chloride Flush 3 Ml Syringe) 3 ml IVFLUSH QSHIFT [facility] Last Admin: 09/20/24 07:51 Dose: 3 ml Documented By: MONIKA Zolpidem Tartrate (Zolpidem Tartrate 5 Mg Tablet) 10 mg PO BEDTIME [facility] Last Admin: 09/19/24 19:59 Dose: 10 mg Documented By: MARCIA Labs 09/20/24 07:10 09/20/24 07:10 Labs: Laboratory Results - last 24 hr 09/19/24 09/19/24 09/19/24 15:42 17:06 21:11 MCV MCH MCHC RDW Plt Count MPV Immature Gran % (Auto) Neut % (Auto) Lymph % (Auto) [place] % (Auto) Eos % (Auto) Baso % (Auto) Lymph # (Auto) [place] # (Auto) Eos # (Auto) Baso # (Auto) Abs Immat Gran (auto) Absolute Neuts (auto) Absolute Nucleated RBC Nucleated RBC % (auto) Anion Gap Estim Creat Clear Calc Estimated GFR POC Glucose 112 178 H Random Glucose Calcium COVID-19 ([facility]) Negative COVID-19 Clin Com See Note 09/20/24 09/20/24 09/20/24 07:00 07:10 10:45 MCV 81.5 MCH 26.6 L MCHC 32.7 RDW 15.0 Plt Count 475 H MPV 8.8 L Immature Gran % (Auto) 0.2 Neut % (Auto) 54.2 Lymph % (Auto) 35.8 [place] % (Auto) 7.5 Eos % (Auto) 1.5 Baso % (Auto) 0.8 Lymph # (Auto) 3.1 [place] # (Auto) 0.6 Eos # (Auto) 0.1 Baso # (Auto) 0.1 Abs Immat Gran (auto) 0.02 Absolute Neuts (auto) 4.6 Absolute Nucleated RBC 0.000 Nucleated RBC % (auto) 0.0 Anion Gap 10 L Estim Creat Clear Calc 102.9 Estimated GFR > 60 POC Glucose 159 H 116 H Random Glucose 162 H Calcium 8.6 COVID-19 ([facility]) COVID-19 Clin Com Microbiology Microbiology Results: Microbiology 09/17/24 17:28 Blood Culture - Preliminary Blood - Venous No growth after 48 hours. 09/17/24 17:28 Blood Culture - Preliminary Blood - Venous No growth after 48 hours. Assessment and Plan (1) Intractable cyclical vomiting with nausea: Status: Acute (2) Acidosis, lactic: Status: Acute (3) Diabetic gastroparesis: Status: Acute Plan 49 year old female with past medical history of type 1 diabetes mellitus (on insulin pump), diabetic gastroparesis, and cyclical vomiting here with: Gastroparesis/cyclic vomiting syndrome with intractable abdominal pain and vomiting. leukocytosis reactive Continue 125cc\hr D5RL Pain control with Dilaudid IV Reglan 10 mg IV q6 prn Bowel regimen Ativan for anxiety advance diet as tolerated; clears now Lactic acidosis no evidence of sepsis resolved with IVF bolus Diabetes on insulin pump continue home insulin pump Chronic anemia. monitor H&H. Mood disorder Risperidone and LAmotrigine DVT prophylaxis: Lovenox Code status: Full Patient will need hospitalization overnight for intractable nausea\vomiting treatment with antiemetic therapy, pain control with IV analgesia, IV fluids and glucose control with insulin. Quality Quality Stroke Does the patient have a stroke diagnosis?: No VTE Prior VTE?: No VTE Risk Level:: Medical - moderate - high VTE Device Contraindication: N/A - Device Ordered VTE Drug Contraindication: N/A - Med Ordered
[2024-09-20] MEDS: Dextrose 5 % and Lactated Ring 1,000 ML 125 ML IVCONT ×2 (15:25→23:28)
[2024-09-20 15:27] LABS: Glucose, Whole Blood 138 mg/dL (60-115)
[2024-09-20 15:34] VITALS: BP 121/79; PULSE 84; RESP 20; TEMP 36.6; O2SAT 98
[2024-09-20 20:00] VITALS: BP 125/66; PULSE 84; RESP 18; TEMP 36.4; O2SAT 99
[2024-09-20] MEDS: Zolpidem Tartrate 5 MG TABLET 10 MG PO (20:46)
[2024-09-20 21:30] LABS: Glucose, Whole Blood 141 mg/dL (60-115)
[2024-09-20] MEDS: Metoclopramide HCl 10 MG/2 ML VIAL IVPUSH (23:30)
[2024-09-21] MEDS: HYDROmorphone HCl 0.5 MG/0.5 ML SYRINGE IVPUSH ×5 (01:50→21:40)
[2024-09-21 05:40] VITALS: BP 151/72; PULSE 89; RESP 18; TEMP 37; O2SAT 96
[2024-09-21 06:58] LABS: MANUAL DIFF FLAG NO
[2024-09-21 07:36] LABS: Basophils Percent Auto 0.6 % (0-2); Eosinophils Absolute Auto 0.2 X10*3/uL (0.0-0.4); Eosinophils Percent Auto 3.2 % (0-4); Hematocrit 25.2 % (37.0-47.0); Hemoglobin 8.1 g/dl (12.0-16.0); Imm Gran Abs Auto 0.02 X10*3/uL (0.00-0.03); Imm Gran Pct Auto 0.3 % (0.0-0.4); Lymphocytes Absolute Auto 2.9 X10*3/uL (1.2-4.9); Lymphocytes Percent Auto 42.9 % (20-40); Mean Corpuscular HGB Conc 32.1 g/dl (31.0-35.0); Mean Corpuscular Hemoglobin 26.6 pg (27.0-33.0); Mean Corpuscular Volume 82.6 fL (80.0-98.0); Mean Platelet Volume 8.9 fL (9.4-12.3); Monocytes Absolute Auto 0.5 X10*3/uL (0.1-1.2); Monocytes Percent Auto 7.2 % (2-11); Neutrophils Absolute Auto 3.1 x10*3/uL (2.0-8.3); Neutrophils Percent Auto 45.8 % (45-73); Platelet Count 487 X10*3/uL (160-400); Red Blood Count 3.05 X10*6/uL (4.20-5.50); Red Cell Distribution Width 14.9 % (11.0-16.0); White Blood Count 6.9 X10*3/uL (4.8-10.8)
[2024-09-21 07:37] LABS: Glucose, Whole Blood 225 mg/dL (60-115)
[2024-09-21 07:40] VITALS: BP 136/72; PULSE 86; RESP 18; TEMP 36.9; O2SAT 97
[2024-09-21 08:01] LABS: Anion Gap 9 (12-20); Blood Urea Nitrogen 4 mg/dL (9-16); Calcium 8.6 mg/dL (8.4-10.2); Carbon Dioxide 31 mmol/L (22-29); Chloride 103 mmol/L (96-108); Creatinine Clr Calc Pharmacy 98.3; Estimated Glomerular Filt Rate > 60; Glucose Random 247 mg/dL (60-115); Potassium 3.1 mmol/L (3.3-5.1); Sodium 140 mmol/L (135-145)
[2024-09-21 08:37] VITALS: BP 136/72; PULSE 86
[2024-09-21] MEDS: Enoxaparin Sodium 40 MG/0.4 ML SYRINGE SUBCUT (08:37)
[2024-09-21] MEDS: Metoprolol Tartrate 25 MG TABLET PO ×2 (08:37→20:29)
[2024-09-21] MEDS: lamoTRIgine 100 MG TABLET 200 MG PO ×2 (08:37→20:30)
[2024-09-21] MEDS: Omeprazole 20 MG CAPSULE.DR PO ×2 (08:37→16:51)
[2024-09-21] MEDS: LORazepam 1 MG TABLET PO ×3 (08:37→23:35)
[2024-09-21] MEDS: Simethicone 80 MG TAB.CHEW PO ×3 (08:37→20:29)
[2024-09-21 08:38] VITALS: BP 136/72
[2024-09-21] MEDS: oxyCODONE HCl Immed Release 5 MG TABLET PO ×3 (08:38→23:33)
[2024-09-21] MEDS: risperiDONE 2 MG TABLET PO ×2 (08:38→20:29)
[2024-09-21] MEDS: Midodrine HCl 5 MG TABLET PO (08:38)
[2024-09-21] MEDS: Docusate Sodium 100 MG CAPSULE PO ×2 (08:38→20:29)
[2024-09-21] MEDS: 0.9 % Sodium Chloride Flush 3 ML SYRINGE IVFLUSH ×2 (08:39→16:52)
[2024-09-21] MEDS: Dextrose 5 % and Lactated Ring 1,000 ML 125 ML IVCONT ×2 (08:39→15:08)
[2024-09-21] MEDS: Metoclopramide HCl 10 MG/2 ML VIAL IVPUSH ×2 (08:41→23:39)
--- NOTE | 2024-09-21 10:42 | MHC.CM.PN ---
Per ROUNDS discussion, Patient is not yet medically cleared for dc (advancing diet); home is the Patient's goal and CM will continue to follow.
--- NOTE | 2024-09-21 11:35 | HO.PM.IMPN ---
Subjective Subjective Date of Service: 09/21/24 Interval History: seen and evaluated report dry heaving and mild tolerance to fluid having pain in her abdomen no other events Review of Systems Review of Systems: Yes all other systems are reviewed and are negative Physical Exam Vital Signs: Vital Signs: Last Vital Signs Temp 98.5 F 09/21/24 07:40 Pulse 86 09/21/24 08:37 Resp 18 09/21/24 07:40 BP 136/72 09/21/24 08:38 Pulse Ox 97 09/21/24 07:40 O2 Del Method Room Air 09/21/24 07:40 O2 Flow Rate 99 09/18/24 14:38 BMI result Body Mass Index 24.3 Const: Other: Constitutional : Awake, interactive, in mild distress, anxious Neck : Normal inspection, Supple Cardiovascular : RRR, no JVP, no lower extremity edema Respiratory : good bilateral air entry, no crackles, wheezes or rhonchi Gastrointestinal: soft, lax, Normal bowel sounds, mild epigastric tenderness Skin : Warm, Dry Neurological : Alert & oriented x3, No focal deficit Objective Data Active Medications Acetaminophen (Acetaminophen 325 Mg Tablet) 650 mg PO Q6H PRN PRN Reason: Pain, Mild 1-3,fever,headache Al Hydroxide/Mg Hydroxide (Magnesium Hydrox/Alum Hydrox 30 Ml Oral.Susp) 30 ml PO Q4H PRN PRN Reason: Heartburn Calcium Carbonate (Calcium Carbonate 750 Mg Tab.Chew) 750 mg PO Q4H PRN PRN Reason: Heartburn Docusate Sodium (Docusate Sodium 100 Mg Capsule) 100 mg PO BID [facility] Last Admin: 09/21/24 08:38 Dose: 100 mg Documented By: CLAUDETTE Enoxaparin Sodium (Enoxaparin Sodium 40 Mg/0.4 Ml Syringe) 40 mg SUBCUT Q24H [facility] Last Admin: 09/21/24 08:37 Dose: 40 mg Documented By: CLAUDETTE Hydromorphone HCl (Hydromorphone Hcl 0.5 Mg/0.5 Ml Syringe) 0.5 mg IVPUSH Q4H PRN; Protocol PRN Reason: Pain, Severe (Pain Scale 7-10) Last Admin: 09/21/24 10:32 Dose: 0.5 mg Documented By: CLAUDETTE Dextrose/Lactated Ringer's (D5lr) 1,000 mls @ 125 mls/hr IVCONT .Q8H [facility] Last Admin: 09/21/24 08:39 Dose: 125 mls/hr Documented By: CLAUDETTE Insulin Human Lispro (Insulin Lispro 100 Unit/Ml 3 Ml Vial) 0 unit SUBCUT QIDACHS [facility]; Protocol Lamotrigine (Lamotrigine 100 Mg Tablet) 200 mg PO BID [facility] Last Admin: 09/21/24 08:37 Dose: 200 mg Documented By: CLAUDETTE Lorazepam (Lorazepam 1 Mg Tablet) 1 mg PO TID PRN PRN Reason: Anxiety Last Admin: 09/21/24 08:37 Dose: 1 mg Documented By: CLAUDETTE Magnesium Hydroxide (Milk Of Magnesia 30 Ml Oral.Susp) 30 ml PO DAILY PRN PRN Reason: Constipation Melatonin (Melatonin 3 Mg Tablet) 6 mg PO BEDTIME PRN PRN Reason: Insomnia Metoclopramide HCl (Metoclopramide Hcl 10 Mg/2 Ml Vial) 10 mg IVPUSH Q6H PRN PRN Reason: Nausea and Vomiting Last Admin: 09/21/24 08:41 Dose: 10 mg Documented By: CLAUDETTE Metoprolol Tartrate (Metoprolol Tartrate 25 Mg Tablet) 25 mg PO BID [facility]; Protocol Last Admin: 09/21/24 08:37 Dose: 25 mg Documented By: CLAUDETTE Midodrine (Midodrine Hcl 5 Mg Tablet) 5 mg PO DAILY [facility] Last Admin: 09/21/24 08:38 Dose: 5 mg Documented By: CLAUDETTE Omeprazole (Omeprazole 20 Mg Capsule.Dr) 20 mg PO BID@0630,1630 [facility] Ondansetron HCl (Ondansetron Hcl 4 Mg/2 Ml Vial) 4 mg IVPUSH Q8H [facility] Last Admin: 09/21/24 02:03 Dose: Not Given Documented By: STEVE-CHUYITA Non-Admin Reason: pt denies nausea Oxycodone HCl (Oxycodone Hcl Immed Release 5 Mg Tablet) 5 mg PO Q6H PRN PRN Reason: Pain, Moderate(Pain Scale 4-6) Last Admin: 09/21/24 08:38 Dose: 5 mg Documented By: CLAUDETTE Polyethylene Glycol (Polyethylene Glycol 3350 17 Gm Powd.Pack) 17 gm PO DAILY [facility] Last Admin: 09/21/24 08:39 Dose: Not Given Documented By: CLAUDETTE Non-Admin Reason: Patient Refused Risperidone (Risperidone 2 Mg Tablet) 2 mg PO BID [facility] Last Admin: 09/21/24 08:38 Dose: 2 mg Documented By: CLAUDETTE Senna (Sennosides 8.6 Mg Tablet) 8.6 mg PO BID PRN PRN Reason: constipation Senna (Sennosides 8.6 Mg Tablet) 17.2 mg PO BEDTIME [facility] Last Admin: 09/20/24 20:53 Dose: Not Given Documented By: MARCIA Non-Admin Reason: Patient Refused Simethicone (Simethicone 80 Mg Tab.Chew) 80 mg PO TID [facility] Last Admin: 09/21/24 08:37 Dose: 80 mg Documented By: CLAUDETTE Sodium Chloride (0.9 % Sodium Chloride Flush 3 Ml Syringe) 3 ml IVFLUSH QSHIFT [facility] Last Admin: 09/21/24 08:39 Dose: 3 ml Documented By: CLAUDETTE Zolpidem Tartrate (Zolpidem Tartrate 5 Mg Tablet) 10 mg PO BEDTIME [facility] Last Admin: 09/20/24 20:46 Dose: 10 mg Documented By: MARCIA Labs 09/21/24 06:37 09/21/24 06:37 Labs: Laboratory Results - last 24 hr 09/20/24 09/20/24 09/21/24 15:21 21:26 06:37 MCV 82.6 MCH 26.6 L MCHC 32.1 RDW 14.9 Plt Count 487 H MPV 8.9 L Immature Gran % (Auto) 0.3 Neut % (Auto) 45.8 Lymph % (Auto) 42.9 H [place] % (Auto) 7.2 Eos % (Auto) 3.2 Baso % (Auto) 0.6 Lymph # (Auto) 2.9 [place] # (Auto) 0.5 Eos # (Auto) 0.2 Baso # (Auto) 0.0 Abs Immat Gran (auto) 0.02 Absolute Neuts (auto) 3.1 Absolute Nucleated RBC 0.000 Nucleated RBC % (auto) 0.0 Anion Gap 9 L Estim Creat Clear Calc 98.3 Estimated GFR > 60 POC Glucose 138 H 141 H Random Glucose 247 H Calcium 8.6 09/21/24 07:17 MCV MCH MCHC RDW Plt Count MPV Immature Gran % (Auto) Neut % (Auto) Lymph % (Auto) [place] % (Auto) Eos % (Auto) Baso % (Auto) Lymph # (Auto) [place] # (Auto) Eos # (Auto) Baso # (Auto) Abs Immat Gran (auto) Absolute Neuts (auto) Absolute Nucleated RBC Nucleated RBC % (auto) Anion Gap Estim Creat Clear Calc Estimated GFR POC Glucose 225 H Random Glucose Calcium Assessment and Plan (1) Intractable cyclical vomiting with nausea: Status: Acute Plan 49 year old female with past medical history of type 1 diabetes mellitus (on insulin pump), diabetic gastroparesis, and cyclical vomiting here with: Gastroparesis/cyclic vomiting syndrome with intractable abdominal pain and vomiting. leukocytosis reactive Continue 125cc\hr D5RL Pain control with Dilaudid IV Reglan 10 mg IV q6 prn Bowel regimen Ativan for anxiety advance diet to soft diet Lactic acidosis no evidence of sepsis resolved with IVF bolus Diabetes on insulin pump continue home insulin pump Chronic anemia. monitor H&H. Mood disorder Risperidone and LAmotrigine DVT prophylaxis: Lovenox Code status: Full Patient will need hospitalization overnight for intractable nausea\vomiting treatment with antiemetic therapy, pain control with IV analgesia, IV fluids and glucose control with insulin. Quality Quality Stroke Does the patient have a stroke diagnosis?: No VTE Prior VTE?: No VTE Risk Level:: Medical - moderate - high VTE Device Contraindication: N/A - Device Ordered VTE Drug Contraindication: N/A - Med Ordered
[2024-09-21 11:57] LABS: Glucose, Whole Blood 268 mg/dL (60-115)
[2024-09-21] MEDS: Insulin Lispro 100 UNIT/ML 3 ML VIAL SUBCUT ×3 (12:07→20:30)
[2024-09-21 15:36] VITALS: BP 116/71; PULSE 82; RESP 17; TEMP 36.4; O2SAT 98
--- NOTE | 2024-09-21 15:59 | P.CDIM_ITS ---
PROVIDER RESPONSE TEXT: To clarify, the appropriate diagnosis supported by the clinical indicators: Acute QUERY TEXT: PHYSICIAN'S DOCUMENTATION REQUEST Date of Query: 09/21/2024 07:58 AM EDT Patient Name: Yumiko Sena Admit Date: 09/18/2024 Dear Fernanda Kenny MD, A review of the medical record indicates additional documentation may be needed. Please review below and update the documentation accordingly. Clinical Indicators: Progress notes within the written Plan: Lactic acidosis Not septic IV fluids LA 4.8 H* Clarify which of the following accurately represents the acuity of the Lactic acidosis: Possible options might include: Acute Chronic Other specified Other (explain) Clinically unable to determine (explain) Thank you, Stacey Adams, CCS, CDIS Use of terms such as suspected, likely, concern for, or probable (associated with a specific diagnosi s that is being evaluated, monitored, or treated as if it exists) are acceptable and can be coded in the inpatient se tting, when documented at the time of discharge. Please use your independent medical judgment in providing your response. THIS QUERY IS PART OF THE PERMANENT MEDICAL RECORD
--- NOTE | 2024-09-21 15:59 | P.CDIM_ITS ---
PROVIDER RESPONSE TEXT: To clarify, the appropriate diagnosis supported by the clinical indicators: Hypokalemia: acute QUERY TEXT: PHYSICIAN'S DOCUMENTATION REQUEST Date of Query: 09/21/2024 08:02 AM EDT Patient Name: Yumiko Sena Admit Date: 09/18/2024 Dear Fernanda Kenny MD, A review of the medical record indicates additional documentation may be needed. Please review below and update the documentation accordingly. Clinical indicators: LABS: potassium 3.0 L 2.9 L 3.1 L IV Potassium Chloride Based on the above, is there a diagnosis that correlates with these lab findings: Hypokalemia resolved, possible, suspected, cannot rule out Labs indicate a diagnosis of (please specify) Other specified diagnosis Other (explain) Clinically unable to determine (explain) Thank you, Stacey Adams, CCS, CDIS Use of terms such as suspected, likely, concern for, or probable (associated with a specific diagnosi s that is being evaluated, monitored, or treated as if it exists) are acceptable and can be coded in the inpatient se tting, when documented at the time of discharge. Please use your independent medical judgment in providing your response. THIS QUERY IS PART OF THE PERMANENT MEDICAL RECORD
[2024-09-21 16:09] LABS: Glucose, Whole Blood 182 mg/dL (60-115)
[2024-09-21] MEDS: ondansetron HCL 4 MG/2 ML VIAL IVPUSH (18:17)
[2024-09-21 19:36] VITALS: BP 115/65; PULSE 83; RESP 16; TEMP 37; O2SAT 96
[2024-09-21 20:27] LABS: Glucose, Whole Blood 277 mg/dL (60-115)
[2024-09-21] MEDS: Sennosides 8.6 MG TABLET 17.2 MG PO (20:28)
[2024-09-21] MEDS: Zolpidem Tartrate 5 MG TABLET 10 MG PO (20:30)
[2024-09-22] VITALS (8 sets, daily range): BP systolic 96–157; BP diastolic 51–70; PULSE 78–95; RESP 16–20; TEMP 36.7–37.2; O2SAT 80–99
[2024-09-22] MEDS: Dextrose 5 % and Lactated Ring 1,000 ML 125 ML IVCONT ×2 (00:26→08:19)
[2024-09-22] MEDS: HYDROmorphone HCl 0.5 MG/0.5 ML SYRINGE IVPUSH ×4 (03:32→23:57)
[2024-09-22] MEDS: ondansetron HCL 4 MG/2 ML VIAL IVPUSH ×3 (03:33→17:26)
[2024-09-22] MEDS: Omeprazole 20 MG CAPSULE.DR PO ×2 (05:39→17:26)
[2024-09-22 07:22] LABS: Glucose, Whole Blood 477 mg/dL (60-115)
[2024-09-22 07:29] LABS: Anion Gap 8 (12-20); Blood Urea Nitrogen 5 mg/dL (9-16); Calcium 5.6 mg/dL (8.4-10.2); Carbon Dioxide 21 mmol/L (22-29); Chloride 114 mmol/L (96-108); Creatinine Clr Calc Pharmacy 109.5; Estimated Glomerular Filt Rate > 60; Glucose Random 358 mg/dL (60-115); Potassium 2.5 mmol/L (3.3-5.1); Sodium 140 mmol/L (135-145)
[2024-09-22 08:08] LABS: Alanine Aminotransferase < 6 U/L (0-31); Albumin Level 2.2 g/dL (3.5-5.0); Alkaline Phosphatase 67 U/L (39-117); Aspartate Amino Transferase 8 U/L (5-31); Bilirubin Direct < 0.2 mg/dL (0.0-0.5); Bilirubin Total 0.2 mg/dL (0.0-1.0); Total Protein 4.1 g/dL (6.5-8.0)
[2024-09-22] MEDS: Potassium Chloride/H20 10 MEQ/100 ML PIGGYBACK 100 MEQ IV ×4 (08:19→11:34)
[2024-09-22] MEDS: Insulin Glargine,Hum.rec.anlog 100 UNIT/ML 10 ML VIAL 10 UNIT SUBCUT ×2 (08:20→13:55)
[2024-09-22] MEDS: Insulin Lispro 100 UNIT/ML 3 ML VIAL SUBCUT ×4 (08:20→21:20)
[2024-09-22] MEDS: LORazepam 1 MG TABLET PO ×2 (08:21→18:14)
[2024-09-22] MEDS: Enoxaparin Sodium 40 MG/0.4 ML SYRINGE SUBCUT (08:21)
[2024-09-22] MEDS: Metoprolol Tartrate 25 MG TABLET PO ×2 (08:21→19:57)
[2024-09-22] MEDS: Docusate Sodium 100 MG CAPSULE PO (08:21)
[2024-09-22] MEDS: Midodrine HCl 5 MG TABLET PO (08:21)
[2024-09-22] MEDS: risperiDONE 2 MG TABLET PO ×2 (08:21→19:57)
[2024-09-22] MEDS: oxyCODONE HCl Immed Release 5 MG TABLET PO ×2 (08:22→18:14)
[2024-09-22] MEDS: Simethicone 80 MG TAB.CHEW PO ×3 (08:22→19:55)
[2024-09-22] MEDS: lamoTRIgine 100 MG TABLET 200 MG PO ×2 (08:22→19:56)
[2024-09-22] MEDS: Calcium Gluconate/NaCl,Iso-Osm 2 GM/100 ML PLAST..BAG IV (10:47)
--- NOTE | 2024-09-22 11:05 | HO.PM.IMPN ---
Subjective Subjective Date of Service: 09/22/24 Interval History: seen and evaluated report dry heaving but tolerating more PO low K and Ca this morning less pain in her abdomen no other events Review of Systems Review of Systems: Yes all other systems are reviewed and are negative Physical Exam Vital Signs: Vital Signs: Last Vital Signs Temp 98.4 F 09/22/24 07:11 Pulse 89 09/22/24 08:21 Resp 18 09/22/24 07:11 BP 157/70 H 09/22/24 08:21 Pulse Ox 97 09/22/24 07:11 O2 Del Method Room Air 09/22/24 07:11 O2 Flow Rate 99 09/18/24 14:38 BMI result Body Mass Index 24.3 Const: Other: Constitutional : Awake, interactive, in mild distress, anxious Neck : Normal inspection, Supple Cardiovascular : RRR, no JVP, no lower extremity edema Respiratory : good bilateral air entry, no crackles, wheezes or rhonchi Gastrointestinal: soft, lax, Normal bowel sounds, mild epigastric tenderness Skin : Warm, Dry Neurological : Alert & oriented x3, No focal deficit Objective Data Active Medications Acetaminophen (Acetaminophen 325 Mg Tablet) 650 mg PO Q6H PRN PRN Reason: Pain, Mild 1-3,fever,headache Al Hydroxide/Mg Hydroxide (Magnesium Hydrox/Alum Hydrox 30 Ml Oral.Susp) 30 ml PO Q4H PRN PRN Reason: Heartburn Calcium Carbonate (Calcium Carbonate 750 Mg Tab.Chew) 750 mg PO Q4H PRN PRN Reason: Heartburn Docusate Sodium (Docusate Sodium 100 Mg Capsule) 100 mg PO BID [facility] Last Admin: 09/22/24 08:21 Dose: 100 mg Documented By: CLAUDETTE Enoxaparin Sodium (Enoxaparin Sodium 40 Mg/0.4 Ml Syringe) 40 mg SUBCUT Q24H [facility] Last Admin: 09/22/24 08:21 Dose: 40 mg Documented By: CLAUDETTE Hydromorphone HCl (Hydromorphone Hcl 0.5 Mg/0.5 Ml Syringe) 0.5 mg IVPUSH Q4H PRN; Protocol PRN Reason: Pain, Severe (Pain Scale 7-10) Last Admin: 09/22/24 03:32 Dose: 0.5 mg Documented By: SUSI Dextrose/Lactated Ringer's (D5lr) 1,000 mls @ 125 mls/hr IVCONT .Q8H [facility] Last Infusion: 09/22/24 08:40 Dose: 0 mls/hr Documented By: CLAUDETTE Potassium Chloride (Potassium Chloride/H20) 10 meq in 100 mls @ 100 mls/hr IV Q1H [facility] Stop: 09/22/24 11:29 Last Admin: 09/22/24 10:24 Dose: 100 mls/hr Documented By: CLAUDETTE Insulin Glargine (Insulin Glargine,Hum.Rec.Anlog 100 Unit/Ml 10 Ml Vial) 10 unit SUBCUT DAILY [facility] Last Admin: 09/22/24 08:20 Dose: 10 unit Documented By: CLAUDETTE Insulin Human Lispro (Insulin Lispro 100 Unit/Ml 3 Ml Vial) 0 unit SUBCUT QIDACHS [facility]; Protocol Last Admin: 09/22/24 08:21 Dose: 10 unit Documented By: CLAUDETTE Lamotrigine (Lamotrigine 100 Mg Tablet) 200 mg PO BID [facility] Last Admin: 09/22/24 08:22 Dose: 200 mg Documented By: CLAUDETTE Lorazepam (Lorazepam 1 Mg Tablet) 1 mg PO TID PRN PRN Reason: Anxiety Last Admin: 09/22/24 08:21 Dose: 1 mg Documented By: CLAUDETTE Magnesium Hydroxide (Milk Of Magnesia 30 Ml Oral.Susp) 30 ml PO DAILY PRN PRN Reason: Constipation Melatonin (Melatonin 3 Mg Tablet) 6 mg PO BEDTIME PRN PRN Reason: Insomnia Metoclopramide HCl (Metoclopramide Hcl 10 Mg/2 Ml Vial) 10 mg IVPUSH Q6H PRN PRN Reason: Nausea and Vomiting Last Admin: 09/21/24 23:39 Dose: 10 mg Documented By: SUSI Metoprolol Tartrate (Metoprolol Tartrate 25 Mg Tablet) 25 mg PO BID [facility]; Protocol Last Admin: 09/22/24 08:21 Dose: 25 mg Documented By: CLAUDETTE Midodrine (Midodrine Hcl 5 Mg Tablet) 5 mg PO DAILY [facility] Last Admin: 09/22/24 08:21 Dose: 5 mg Documented By: CLAUDETTE Omeprazole (Omeprazole 20 Mg Capsule.Dr) 20 mg PO BID@0630,1630 [facility] Last Admin: 09/22/24 05:39 Dose: 20 mg Documented By: SUSI Ondansetron HCl (Ondansetron Hcl 4 Mg/2 Ml Vial) 4 mg IVPUSH Q8H [facility] Last Admin: 09/22/24 10:21 Dose: 4 mg Documented By: CLAUDETTE Oxycodone HCl (Oxycodone Hcl Immed Release 5 Mg Tablet) 5 mg PO Q6H PRN PRN Reason: Pain, Moderate(Pain Scale 4-6) Last Admin: 09/22/24 08:22 Dose: 5 mg Documented By: CLAUDETTE Polyethylene Glycol (Polyethylene Glycol 3350 17 Gm Powd.Pack) 17 gm PO DAILY [facility] Last Admin: 09/22/24 08:22 Dose: Not Given Documented By: CLAUDETTE Non-Admin Reason: Patient Refused Risperidone (Risperidone 2 Mg Tablet) 2 mg PO BID [facility] Last Admin: 09/22/24 08:21 Dose: 2 mg Documented By: CLAUDETTE Senna (Sennosides 8.6 Mg Tablet) 8.6 mg PO BID PRN PRN Reason: constipation Senna (Sennosides 8.6 Mg Tablet) 17.2 mg PO BEDTIME [facility] Last Admin: 09/21/24 20:28 Dose: 17.2 mg Documented By: SUSI Simethicone (Simethicone 80 Mg Tab.Chew) 80 mg PO TID [facility] Last Admin: 09/22/24 08:22 Dose: 80 mg Documented By: CLAUDETTE Sodium Chloride (0.9 % Sodium Chloride Flush 3 Ml Syringe) 3 ml IVFLUSH QSHIFT [facility] Last Admin: 09/22/24 08:44 Dose: Not Given Documented By: CLAUDETTE Non-Admin Reason: IV Running Zolpidem Tartrate (Zolpidem Tartrate 5 Mg Tablet) 10 mg PO BEDTIME [facility] Last Admin: 09/21/24 20:30 Dose: 10 mg Documented By: SUSI Labs 09/21/24 06:37 09/22/24 05:58 Labs: Laboratory Results - last 24 hr 09/21/24 09/21/24 09/21/24 11:53 16:04 20:19 Hold Purple Top Anion Gap Estim Creat Clear Calc Estimated GFR POC Glucose 268 H 182 H 277 H Random Glucose Calcium Total Bilirubin Direct Bilirubin AST ALT Alkaline Phosphatase Total Protein Albumin 09/22/24 09/22/24 05:58 07:17 Hold Purple Top SEE NOTE Anion Gap 8 L Estim Creat Clear Calc 109.5 Estimated GFR > 60 POC Glucose 477 H* Random Glucose 358 H* Calcium 5.6 L* D Total Bilirubin 0.2 Direct Bilirubin < 0.2 AST 8 ALT < 6 Alkaline Phosphatase 67 Total Protein 4.1 L Albumin 2.2 L Assessment and Plan (1) Intractable cyclical vomiting with nausea: Status: Acute (2) Acute hypokalemia: Status: Acute (3) Acidosis, lactic: Status: Acute (4) Type 1 diabetes: Status: Acute Plan 49 year old female with past medical history of type 1 diabetes mellitus (on insulin pump), diabetic gastroparesis, and cyclical vomiting here with: Gastroparesis/cyclic vomiting syndrome with intractable abdominal pain and vomiting. leukocytosis resolved dc 125cc\hr D5RL Pain control with Dilaudid IV Zofran Q8 Reglan 10 mg IV q6 prn Bowel regimen Ativan for anxiety advance diet to soft diet Acute hypokalemia replacement given, repeat BMP Acute hypocalcemia corrected Ca of 7.3 give replacement and recheck acute Lactic acidosis no evidence of sepsis resolved with IVF bolus Hyperglycemia in type 1 Diabetes insulin pump run out of insulin Start Lantus 10 units, give more if needed SSI Chronic anemia. monitor H&H. Mood disorder Risperidone and LAmotrigine DVT prophylaxis: Lovenox Code status: Full Patient will need hospitalization overnight for intractable nausea\vomiting treatment with antiemetic therapy, pain control with IV analgesia, IV electrolytes replacement and glucose control with insulin. Quality Quality Stroke Does the patient have a stroke diagnosis?: No VTE Prior VTE?: No VTE Risk Level:: Medical - moderate - high VTE Device Contraindication: N/A - Device Ordered VTE Drug Contraindication: N/A - Med Ordered
[2024-09-22 11:14] LABS: Glucose, Whole Blood 300 mg/dL (60-115)
[2024-09-22 13:37] LABS: Anion Gap 11 (12-20); Blood Urea Nitrogen 10 mg/dL (9-16); Calcium 9.8 mg/dL (8.4-10.2); Carbon Dioxide 29 mmol/L (22-29); Chloride 103 mmol/L (96-108); Estimated Glomerular Filt Rate > 60; Glucose Random 188 mg/dL (60-115); Potassium 4.2 mmol/L (3.3-5.1); Sodium 139 mmol/L (135-145)
[2024-09-22 15:39] LABS: Glucose, Whole Blood 117 mg/dL (60-115)
[2024-09-22 17:19] LABS: Glucose, Whole Blood 71 mg/dL (60-115)
[2024-09-22] MEDS: 0.9 % Sodium Chloride Flush 3 ML SYRINGE IVFLUSH (17:26)
[2024-09-22 17:57] LABS: Glucose, Whole Blood 207 mg/dL (60-115)
[2024-09-22] MEDS: Zolpidem Tartrate 5 MG TABLET 10 MG PO (19:55)
[2024-09-22 20:26] LABS: Glucose, Whole Blood 249 mg/dL (60-115)
[2024-09-23] VITALS (7 sets, daily range): BP systolic 80–108; BP diastolic 50–58; PULSE 82–84; RESP 12–18; TEMP 36.3–37.2; O2SAT 90–97
[2024-09-23] MEDS: ondansetron HCL 4 MG/2 ML VIAL IVPUSH ×3 (02:40→17:24)
[2024-09-23] MEDS: HYDROmorphone HCl 0.5 MG/0.5 ML SYRINGE IVPUSH ×3 (03:52→21:14)
[2024-09-23] MEDS: Metoclopramide HCl 10 MG/2 ML VIAL IVPUSH (03:52)
[2024-09-23] MEDS: Omeprazole 20 MG CAPSULE.DR PO ×2 (05:24→15:49)
[2024-09-23 06:42] LABS: MANUAL DIFF FLAG NO
[2024-09-23 07:07] LABS: Blood Urea Nitrogen 8 mg/dL (9-16); Creatinine Clr Calc Pharmacy 102.9; Estimated Glomerular Filt Rate > 60; Glucose Random 211 mg/dL (60-115)
[2024-09-23 07:10] LABS: Glucose, Whole Blood 253 mg/dL (60-115)
[2024-09-23 07:11] LABS: Basophils Absolute Auto 0.1 X10*3/uL (0.0-0.2); Basophils Percent Auto 0.6 % (0-2); Eosinophils Absolute Auto 0.3 X10*3/uL (0.0-0.4); Eosinophils Percent Auto 2.9 % (0-4); Hematocrit 24.9 % (37.0-47.0); Hemoglobin 8.1 g/dl (12.0-16.0); Imm Gran Abs Auto 0.02 X10*3/uL (0.00-0.03); Imm Gran Pct Auto 0.2 % (0.0-0.4); Lymphocytes Absolute Auto 2.9 X10*3/uL (1.2-4.9); Lymphocytes Percent Auto 31.6 % (20-40); Mean Corpuscular HGB Conc 32.5 g/dl (31.0-35.0); Mean Corpuscular Hemoglobin 26.8 pg (27.0-33.0); Mean Corpuscular Volume 82.5 fL (80.0-98.0); Mean Platelet Volume 9.1 fL (9.4-12.3); Monocytes Absolute Auto 0.6 X10*3/uL (0.1-1.2); Monocytes Percent Auto 6.6 % (2-11); Neutrophils Absolute Auto 5.4 x10*3/uL (2.0-8.3); Neutrophils Percent Auto 58.1 % (45-73); Platelet Count 455 X10*3/uL (160-400); Red Blood Count 3.02 X10*6/uL (4.20-5.50); Red Cell Distribution Width 15.1 % (11.0-16.0); White Blood Count 9.3 X10*3/uL (4.8-10.8)
[2024-09-23 07:19] LABS: Anion Gap 9 (12-20); Calcium 6.7 mg/dL (8.4-10.2); Carbon Dioxide 22 mmol/L (22-29); Chloride 112 mmol/L (96-108); Sodium 140 mmol/L (135-145)
[2024-09-23 07:39] LABS: Potassium 2.9 mmol/L (3.3-5.1)
[2024-09-23] MEDS: Enoxaparin Sodium 40 MG/0.4 ML SYRINGE SUBCUT (07:58)
[2024-09-23] MEDS: Insulin Glargine,Hum.rec.anlog 100 UNIT/ML 10 ML VIAL 15 UNIT SUBCUT (07:58)
[2024-09-23] MEDS: risperiDONE 2 MG TABLET PO ×2 (07:59→21:14)
[2024-09-23] MEDS: oxyCODONE HCl Immed Release 5 MG TABLET PO (07:59)
[2024-09-23] MEDS: Potassium Chloride/H20 10 MEQ/100 ML PIGGYBACK 100 MEQ IV ×4 (07:59→11:19)
[2024-09-23] MEDS: Docusate Sodium 100 MG CAPSULE PO ×2 (07:59→21:14)
[2024-09-23] MEDS: lamoTRIgine 100 MG TABLET 200 MG PO ×2 (07:59→21:14)
[2024-09-23] MEDS: Insulin Lispro 100 UNIT/ML 3 ML VIAL SUBCUT ×3 (07:59→21:15)
[2024-09-23] MEDS: Metoprolol Tartrate 25 MG TABLET PO (08:00)
[2024-09-23] MEDS: Midodrine HCl 5 MG TABLET PO (08:00)
[2024-09-23] MEDS: 0.9 % Sodium Chloride Flush 3 ML SYRINGE IVFLUSH ×3 (08:03→21:15)
--- NOTE | 2024-09-23 10:13 | PM.GICN ---
History of Present Illness Data of Consult Service Date: 09/23/24 Requesting physician: Fernanda Kenny Primary Care Provider: Yulisa Avila MD HPI Reason for consult: Abd pain, N,V This is a 48-year-old female past medical history of type 1 diabetes complicated by diabetic gastroparesis status post G-POEM 2018, who presented to the hospital on 09/17 with sudden onset of abd pain, N,V. Gastroenterology has been consulted for abdominal pain, nausea and vomiting. Prevously has had assoc DKA with similar sx however this time did not have labs consistent with DKA. Reports significant RUQ pain with nausea and inability to tolerate PO. Has been on IV reglan. Labs with alkalosis, anemia, low anion gap. Pt on bedside assessment continues to report significant pain in RUQ. Significant vomiting with PO even liquids. Review of Systems Review of Systems: Yes all other systems are reviewed and are negative PMFSH Past Medical History Medical History (Updated 09/19/24 @ 10:48 by Fernanda Kenny MD) Intractable cyclical vomiting with nausea Intractable nausea and vomiting Diabetic gastroparesis Acute UTI Diabetes mellitus type 1 Chronic hypertension Diabetes mellitus with gastroparesis Diabetic gastroparesis Herpes zoster Status post fall Recurrent UTI NSTEMI (non-ST elevated myocardial infarction) Diabetic gastroparesis Anxiety Bipolar 1 disorder Pancreatitis Gastroparesis Diabetes Surgical History Surgical History History of cholecystectomy History of tonsillectomy History of ERCP H/O pyloroplasty History of appendectomy H/O: hysterectomy Social History Social History Household Members: Spouse Housing: House Housing Other:: mobile home Do you presently have visiting nurse or other home services: No Unable to assess alcohol history related to: Refusing to respond Alcohol intake: never Comment: pt refused bed alarm Patient Tobacco Use Status: Former Tobacco user Tobacco use type: Cigarette e-Cigarette/Vaping Use: Former Use Second Hand Smoke Exposure: No Substance Use Type: Marijuana Advance Directives Date on File: 12/03/22 service: No Current occupational status: disabled Cognitive needs: No Hearing needs: No Vision needs: No Meds Allergies Allergy/AdvReac Type Severity Reaction Status Date / Time morphine [MORPHINE] Allergy Intermediate RASH, Verified 09/17/24 17:18 hives, hives mushroom Allergy Intermediate HIVES/RASH Verified 09/17/24 17:18 Sulfa (Sulfonamide Allergy Mild Rash Verified 09/17/24 17:18 Antibiotics) mushroom Allergy Unknown throat Uncoded 09/17/24 17:18 closes up/difficult breathing mushrooms Allergy Unknown anaphylaxis Uncoded 09/17/24 17:18 Active Medications: Current Medications Acetaminophen (Acetaminophen 325 Mg Tablet) 650 mg PO Q6H PRN PRN Reason: Pain, Mild 1-3,fever,headache Al Hydroxide/Mg Hydroxide (Magnesium Hydrox/Alum Hydrox 30 Ml Oral.Susp) 30 ml PO Q4H PRN PRN Reason: Heartburn Betamethasone Dipropion Augmented (Betamethasone Dip Aug 0.05% Cr 15 Gm Tube) 1 appl TOPICAL BID [facility]; Protocol Calcium Carbonate (Calcium Carbonate 750 Mg Tab.Chew) 750 mg PO Q4H PRN PRN Reason: Heartburn Docusate Sodium (Docusate Sodium 100 Mg Capsule) 100 mg PO BID [facility] Last Admin: 09/23/24 07:59 Dose: 100 mg Enoxaparin Sodium (Enoxaparin Sodium 40 Mg/0.4 Ml Syringe) 40 mg SUBCUT Q24H [facility] Last Admin: 09/23/24 07:58 Dose: 40 mg Glucose (Glucose Gel 15 Gm Gel..Gram.) 15 gm PO Q15M PRN PRN Reason: per Hypoglycemia Standing Ord. Hydromorphone HCl (Hydromorphone Hcl 0.5 Mg/0.5 Ml Syringe) 0.5 mg IVPUSH Q4H PRN; Protocol PRN Reason: Pain, Severe (Pain Scale 7-10) Last Admin: 09/23/24 03:52 Dose: 0.5 mg Potassium Chloride (Potassium Chloride/H20) 10 meq in 100 mls @ 100 mls/hr IV Q1H [facility] Stop: 09/23/24 11:44 Last Admin: 09/23/24 09:07 Dose: 100 mls/hr Insulin Glargine (Insulin Glargine,Hum.Rec.Anlog 100 Unit/Ml 10 Ml Vial) 15 unit SUBCUT DAILY [facility] Last Admin: 09/23/24 07:58 Dose: 15 unit Insulin Human Lispro (Insulin Lispro 100 Unit/Ml 3 Ml Vial) 0 unit SUBCUT QIDACHS [facility]; Protocol Last Admin: 09/23/24 07:59 Dose: 6 unit Lamotrigine (Lamotrigine 100 Mg Tablet) 200 mg PO BID [facility] Last Admin: 09/23/24 07:59 Dose: 200 mg Lorazepam (Lorazepam 2 Mg/Ml Vial) 0.5 mg IVPUSH Q6H PRN PRN Reason: Anxiety, Nausea Magnesium Hydroxide (Milk Of Magnesia 30 Ml Oral.Susp) 30 ml PO DAILY PRN PRN Reason: Constipation Melatonin (Melatonin 3 Mg Tablet) 6 mg PO BEDTIME PRN PRN Reason: Insomnia Metoclopramide HCl (Metoclopramide Hcl 10 Mg/2 Ml Vial) 10 mg IVPUSH Q6H PRN PRN Reason: Nausea and Vomiting Last Admin: 09/23/24 03:52 Dose: 10 mg Metoprolol Tartrate (Metoprolol Tartrate 25 Mg Tablet) 25 mg PO BID [facility]; Protocol Last Admin: 09/23/24 08:00 Dose: 25 mg Midodrine (Midodrine Hcl 5 Mg Tablet) 5 mg PO DAILY [facility] Last Admin: 09/23/24 08:00 Dose: 5 mg Omeprazole (Omeprazole 20 Mg Capsule.Dr) 20 mg PO BID@0630,1630 [facility] Last Admin: 09/23/24 05:24 Dose: 20 mg Ondansetron HCl (Ondansetron Hcl 4 Mg/2 Ml Vial) 4 mg IVPUSH Q8H [facility] Last Admin: 09/23/24 02:40 Dose: 4 mg Oxycodone HCl (Oxycodone Hcl Immed Release 5 Mg Tablet) 5 mg PO Q6H PRN PRN Reason: Pain, Moderate(Pain Scale 4-6) Last Admin: 09/23/24 07:59 Dose: 5 mg Polyethylene Glycol (Polyethylene Glycol 3350 17 Gm Powd.Pack) 17 gm PO DAILY [facility] Last Admin: 09/23/24 08:00 Dose: Not Given Risperidone (Risperidone 2 Mg Tablet) 2 mg PO BID [facility] Last Admin: 09/23/24 07:59 Dose: 2 mg Senna (Sennosides 8.6 Mg Tablet) 8.6 mg PO BID PRN PRN Reason: constipation Senna (Sennosides 8.6 Mg Tablet) 17.2 mg PO BEDTIME [facility] Last Admin: 09/22/24 20:05 Dose: Not Given Simethicone (Simethicone 80 Mg Tab.Chew) 80 mg PO TID [facility] Last Admin: 09/23/24 08:01 Dose: Not Given Sodium Chloride (0.9 % Sodium Chloride Flush 3 Ml Syringe) 3 ml IVFLUSH QSHIFT [facility] Last Admin: 09/23/24 08:03 Dose: 3 ml Zolpidem Tartrate (Zolpidem Tartrate 5 Mg Tablet) 10 mg PO BEDTIME [facility] Last Admin: 09/22/24 19:55 Dose: 10 mg Home Medications ?Medication ?Instructions ?Recorded ?Confirmed ?Last Taken ?Type lamotrigine 200 mg tablet 200 mg PO BID 05/11/20 09/17/24 07/23/24 History lorazepam 1 mg tablet 1 mg PO TID PRN Anxiety 05/11/20 09/17/24 07/23/24 History zolpidem 10 mg tablet 10 mg PO BEDTIME 05/11/20 09/17/24 07/23/24 History risperidone 2 mg tablet 2 mg PO BID 09/13/21 09/17/24 07/23/24 History insulin aspart U-100 100 unit/mL 0 - 100 unit subcut DAILY 07/23/24 09/17/24 07/23/24 History subcutaneous solution (Novolog U-100 Insulin aspart) docusate sodium 100 mg capsule 100 mg PO BID 09/17/24 09/17/24 Unknown History glucagon 1 mg solution for 1 mg IM Q15M PRN Hypoglycemia 09/17/24 09/17/24 Unknown History injection (Glucagon Emergency Kit) insulin glargine 100 unit/mL (3 See Rx Instructions .Route 09/17/24 09/18/24 Unknown History mL) subcutaneous pen (Lantus .COMPLEX PRN pump not working Solostar U-100 Insulin) sennosides 8.6 mg tablet (senna) 8.6 mg PO BID PRN constipation 09/17/24 09/17/24 Unknown History simethicone 80 mg chewable tablet 80 mg PO TID PRN gas 09/17/24 09/17/24 Unknown History subcutaneous insulin pump 09/17/24 09/17/24 Unknown History pantoprazole 40 mg tablet,delayed 40 mg PO BID 09/18/24 09/18/24 Unknown History release Physical Exam Vital Signs: Vital Signs: Last Vital Signs Temp 98.4 F 09/23/24 07:23 Pulse 82 09/23/24 08:00 Resp 12 09/23/24 07:23 BP 106/58 L 09/23/24 08:00 Pulse Ox 90 L 09/23/24 07:23 O2 Del Method Room Air 09/23/24 07:23 O2 Flow Rate 99 09/18/24 14:38 BMI result Body Mass Index 24.3 No apparent distress Nonicteric Abdomen soft, pain in RUQ ? murphys but pt with CCY Alert and oriented x3, normal gait Results Labs 09/23/24 06:31 09/23/24 13:14 Labs: Short CBC 09/23/24 Range/Units 06:31 WBC 9.3 (4.8-10.8) X10*3/uL Hgb 8.1 L (12.0-16.0) g/dl Hct 24.9 L (37.0-47.0) % Plt Count 455 H (160-400) X10*3/uL BMP 09/22/24 09/23/24 12:57 06:31 Sodium 139 140 Potassium 4.2 D 2.9 L* D Chloride 103 112 H Carbon Dioxide 29 22 BUN 10 8 L Creatinine 0.78 0.66 Calcium 9.8 D 6.7 L D Microbiology Microbiology Results: Microbiology 09/17/24 17:28 Blood - Venous Blood Culture - Final No growth after 5 days. 09/17/24 17:28 Blood - Venous Blood Culture - Final No growth after 5 days. Assessment and Plan (1) Abdominal pain: Status: Resolved (2) Nausea & vomiting: Qualifiers: Vomiting type: unspecified Qualified Code(s): R11.2 - Nausea with vomiting, unspecified Status: Resolved (3) Type 1 diabetes: Qualifiers: Diabetes mellitus complication status: with other specified complication Qualified Code(s): E10.69 - Type 1 diabetes mellitus with other specified complication Status: Acute (4) Diabetic gastroparesis: Status: Acute Plan Ddx includes gastroparesis, CHS, cyclical vomiting, PUD, CBD stone. Plan: - Check LFTs, amylase, lipase (ordered) - US abd - Repeat BMP - Once electrolytes corrected, start erythromycin 250 mg TID. WILL NEED a 12-lead EKG TO CHECK PRIOR TO STARTING THIS, as shes also been on reglan. - Clears today, NPO after MN for EGD tmrw Thank you for allowing me to participate in her care. Please do not hesitate to reach out for any questions or concerns. Procedures Date of Service Date of Service: 09/23/24
[2024-09-23] MEDS: LORazepam 2 MG/ML VIAL 0.5 MG IVPUSH ×2 (10:14→17:24)
[2024-09-23 11:09] LABS: Glucose, Whole Blood 148 mg/dL (60-115)
[2024-09-23 11:10] LABS: Amylase 28 U/L (28-100)
[2024-09-23 11:30] LABS: Alanine Aminotransferase 6 U/L (0-31); Albumin Level 3.4 g/dL (3.5-5.0); Aspartate Amino Transferase 15 U/L (5-31); Beta-Hydroxybutyrate 0.06 mmol/L (0.02-0.27); Bilirubin Direct < 0.2 mg/dL (0.0-0.5); Bilirubin Total 0.2 mg/dL (0.0-1.0); Lipase 8 U/L (8-78); Magnesium 1.8 mg/dL (1.6-2.6); Total Protein 6.5 g/dL (6.5-8.0)
--- NOTE | 2024-09-23 12:24 | HO.PM.IMPN ---
Subjective Subjective Date of Service: 09/23/24 Interval History: seen and evaluated report vomiting and increase anxiety low K and Ca less pain in her abdomen no other events Review of Systems Review of Systems: Yes all other systems are reviewed and are negative Physical Exam Vital Signs: Vital Signs: Last Vital Signs Temp 98.4 F 09/23/24 07:23 Pulse 82 09/23/24 08:00 Resp 12 09/23/24 07:23 BP 106/58 L 09/23/24 08:00 Pulse Ox 90 L 09/23/24 07:23 O2 Del Method Room Air 09/23/24 07:23 O2 Flow Rate 99 09/18/24 14:38 BMI result Body Mass Index 24.3 Const: Other: Constitutional : Awake, interactive, in mild distress, anxious and teary Neck : Normal inspection, Supple Cardiovascular : RRR, no JVP, no lower extremity edema Respiratory : good bilateral air entry, no crackles, wheezes or rhonchi Gastrointestinal: soft, lax, Normal bowel sounds, mild epigastric tenderness Skin : Warm, Dry Neurological : Alert & oriented x3, No focal deficit Objective Data Active Medications Acetaminophen (Acetaminophen 325 Mg Tablet) 650 mg PO Q6H PRN PRN Reason: Pain, Mild 1-3,fever,headache Al Hydroxide/Mg Hydroxide (Magnesium Hydrox/Alum Hydrox 30 Ml Oral.Susp) 30 ml PO Q4H PRN PRN Reason: Heartburn Betamethasone Dipropion Augmented (Betamethasone Dip Aug 0.05% Cr 15 Gm Tube) 1 appl TOPICAL BID [facility]; Protocol Last Admin: 09/23/24 10:48 Dose: Not Given Documented By: CLAUDETTE Non-Admin Reason: Med Not Available Calcium Carbonate (Calcium Carbonate 750 Mg Tab.Chew) 750 mg PO Q4H PRN PRN Reason: Heartburn Docusate Sodium (Docusate Sodium 100 Mg Capsule) 100 mg PO BID [facility] Last Admin: 09/23/24 07:59 Dose: 100 mg Documented By: CLAUDETTE Enoxaparin Sodium (Enoxaparin Sodium 40 Mg/0.4 Ml Syringe) 40 mg SUBCUT Q24H [facility] Last Admin: 09/23/24 07:58 Dose: 40 mg Documented By: CLAUDETTE Glucose (Glucose Gel 15 Gm Gel..Gram.) 15 gm PO Q15M PRN PRN Reason: per Hypoglycemia Standing Ord. Hydromorphone HCl (Hydromorphone Hcl 0.5 Mg/0.5 Ml Syringe) 0.5 mg IVPUSH Q4H PRN; Protocol PRN Reason: Pain, Severe (Pain Scale 7-10) Last Admin: 09/23/24 03:52 Dose: 0.5 mg Documented By: SUSI Insulin Glargine (Insulin Glargine,Hum.Rec.Anlog 100 Unit/Ml 10 Ml Vial) 15 unit SUBCUT DAILY [facility] Last Admin: 09/23/24 07:58 Dose: 15 unit Documented By: CLAUDETTE Insulin Human Lispro (Insulin Lispro 100 Unit/Ml 3 Ml Vial) 0 unit SUBCUT QIDACHS [facility]; Protocol Last Admin: 09/23/24 11:16 Dose: Not Given Documented By: CLAUDETTE Non-Admin Reason: No Insulin Coverage Lamotrigine (Lamotrigine 100 Mg Tablet) 200 mg PO BID [facility] Last Admin: 09/23/24 07:59 Dose: 200 mg Documented By: CLAUDETTE Lorazepam (Lorazepam 2 Mg/Ml Vial) 0.5 mg IVPUSH Q6H PRN PRN Reason: Anxiety, Nausea Magnesium Hydroxide (Milk Of Magnesia 30 Ml Oral.Susp) 30 ml PO DAILY PRN PRN Reason: Constipation Melatonin (Melatonin 3 Mg Tablet) 6 mg PO BEDTIME PRN PRN Reason: Insomnia Metoclopramide HCl (Metoclopramide Hcl 10 Mg/2 Ml Vial) 10 mg IVPUSH Q6H PRN PRN Reason: Nausea and Vomiting Last Admin: 09/23/24 03:52 Dose: 10 mg Documented By: SUSI Metoprolol Tartrate (Metoprolol Tartrate 25 Mg Tablet) 25 mg PO BID [facility]; Protocol Last Admin: 09/23/24 08:00 Dose: 25 mg Documented By: CLAUDETTE Midodrine (Midodrine Hcl 5 Mg Tablet) 5 mg PO DAILY [facility] Last Admin: 09/23/24 08:00 Dose: 5 mg Documented By: CLAUDETTE Omeprazole (Omeprazole 20 Mg Capsule.) 20 mg PO BID@0630,1630 [facility] Last Admin: 09/23/24 05:24 Dose: 20 mg Documented By: SUSI Ondansetron HCl (Ondansetron Hcl 4 Mg/2 Ml Vial) 4 mg IVPUSH Q8H [facility] Last Admin: 09/23/24 10:14 Dose: 4 mg Documented By: CLAUDETTE Oxycodone HCl (Oxycodone Hcl Immed Release 5 Mg Tablet) 5 mg PO Q6H PRN PRN Reason: Pain, Moderate(Pain Scale 4-6) Last Admin: 09/23/24 07:59 Dose: 5 mg Documented By: CLAUDETTE Polyethylene Glycol (Polyethylene Glycol 3350 17 Gm Powd.Pack) 17 gm PO DAILY [facility] Last Admin: 09/23/24 08:00 Dose: Not Given Documented By: CLAUDETTE Non-Admin Reason: Patient Refused Risperidone (Risperidone 2 Mg Tablet) 2 mg PO BID [facility] Last Admin: 09/23/24 07:59 Dose: 2 mg Documented By: CLAUDETTE Senna (Sennosides 8.6 Mg Tablet) 8.6 mg PO BID PRN PRN Reason: constipation Senna (Sennosides 8.6 Mg Tablet) 17.2 mg PO BEDTIME [facility] Last Admin: 09/22/24 20:05 Dose: Not Given Documented By: SUSI Non-Admin Reason: Patient Refused Simethicone (Simethicone 80 Mg Tab.Chew) 80 mg PO TID [facility] Last Admin: 09/23/24 08:01 Dose: Not Given Documented By: CLAUDETTE Non-Admin Reason: Patient Refused Sodium Chloride (0.9 % Sodium Chloride Flush 3 Ml Syringe) 3 ml IVFLUSH QSHIFT [facility] Last Admin: 09/23/24 08:03 Dose: 3 ml Documented By: CLAUDETTE Zolpidem Tartrate (Zolpidem Tartrate 5 Mg Tablet) 10 mg PO BEDTIME [facility] Last Admin: 09/22/24 19:55 Dose: 10 mg Documented By: SUSI Labs 09/23/24 06:31 09/23/24 06:31 Labs: Laboratory Results - last 24 hr 09/22/24 09/22/24 09/22/24 12:57 15:35 17:16 MCV MCH MCHC RDW Plt Count MPV Immature Gran % (Auto) Neut % (Auto) Lymph % (Auto) [place] % (Auto) Eos % (Auto) Baso % (Auto) Lymph # (Auto) [place] # (Auto) Eos # (Auto) Baso # (Auto) Abs Immat Gran (auto) Absolute Neuts (auto) Absolute Nucleated RBC Nucleated RBC % (auto) Anion Gap 11 L Estim Creat Clear Calc 87.0 Estimated GFR > 60 POC Glucose 117 H 71 Random Glucose 188 H Calcium 9.8 D Magnesium Total Bilirubin Direct Bilirubin AST ALT Total Protein Albumin Amylase Lipase Beta-Hydroxybutyrate 09/22/24 09/22/24 09/23/24 17:51 20:11 06:31 MCV 82.5 MCH 26.8 L MCHC 32.5 RDW 15.1 Plt Count 455 H MPV 9.1 L Immature Gran % (Auto) 0.2 Neut % (Auto) 58.1 Lymph % (Auto) 31.6 [place] % (Auto) 6.6 Eos % (Auto) 2.9 Baso % (Auto) 0.6 Lymph # (Auto) 2.9 [place] # (Auto) 0.6 Eos # (Auto) 0.3 Baso # (Auto) 0.1 Abs Immat Gran (auto) 0.02 Absolute Neuts (auto) 5.4 Absolute Nucleated RBC 0.000 Nucleated RBC % (auto) 0.0 Anion Gap 9 L Estim Creat Clear Calc 102.9 Estimated GFR > 60 POC Glucose 207 H 249 H Random Glucose 211 H Calcium 6.7 L D Magnesium Total Bilirubin Direct Bilirubin AST ALT Total Protein Albumin Amylase Lipase Beta-Hydroxybutyrate 09/23/24 09/23/24 09/23/24 07:03 10:31 10:33 MCV MCH MCHC RDW Plt Count MPV Immature Gran % (Auto) Neut % (Auto) Lymph % (Auto) [place] % (Auto) Eos % (Auto) Baso % (Auto) Lymph # (Auto) [place] # (Auto) Eos # (Auto) Baso # (Auto) Abs Immat Gran (auto) Absolute Neuts (auto) Absolute Nucleated RBC Nucleated RBC % (auto) Anion Gap Estim Creat Clear Calc Estimated GFR POC Glucose 253 H Random Glucose Calcium Magnesium 1.8 Total Bilirubin 0.2 Direct Bilirubin < 0.2 AST 15 ALT 6 Total Protein 6.5 Albumin 3.4 L Amylase 28 Lipase 8 Beta-Hydroxybutyrate 0.06 09/23/24 11:02 MCV MCH MCHC RDW Plt Count MPV Immature Gran % (Auto) Neut % (Auto) Lymph % (Auto) [place] % (Auto) Eos % (Auto) Baso % (Auto) Lymph # (Auto) [place] # (Auto) Eos # (Auto) Baso # (Auto) Abs Immat Gran (auto) Absolute Neuts (auto) Absolute Nucleated RBC Nucleated RBC % (auto) Anion Gap Estim Creat Clear Calc Estimated GFR POC Glucose 148 H Random Glucose Calcium Magnesium Total Bilirubin Direct Bilirubin AST ALT Total Protein Albumin Amylase Lipase Beta-Hydroxybutyrate Microbiology Microbiology Results: Microbiology 09/17/24 17:28 Blood Culture - Final Blood - Venous No growth after 5 days. 09/17/24 17:28 Blood Culture - Final Blood - Venous No growth after 5 days. Assessment and Plan (1) Acidosis, lactic: Status: Acute (2) Intractable cyclical vomiting with nausea: Status: Acute (3) Diabetic gastroparesis: Status: Acute Plan 49 year old female with past medical history of type 1 diabetes mellitus (on insulin pump), diabetic gastroparesis, and cyclical vomiting here with: Gastroparesis/cyclic vomiting syndrome with intractable abdominal pain and vomiting. leukocytosis resolved dc 125cc\hr D5RL Pain control with Dilaudid IV Zofran Q8 Reglan 10 mg IV q6 prn Bowel regimen Ativan for anxiety advance diet to soft diet get GI evaluation for possible PuD\chronic pancreatitis evaluation Anxiety Add Lorazepam PRN to help with nausea and anxiety Acute hypokalemia replacement given, repeat BMP Acute hypocalcemia corrected Ca of 7.3 give replacement and recheck acute Lactic acidosis no evidence of sepsis resolved with IVF bolus Hyperglycemia in type 1 Diabetes insulin pump run out of insulin Start Lantus 10 units, give more if needed SSI Chronic anemia. monitor H&H. Mood disorder Risperidone and LAmotrigine DVT prophylaxis: Lovenox Code status: Full Patient will need hospitalization overnight for intractable nausea\vomiting treatment with antiemetic therapy, pain control with IV analgesia, IV electrolytes replacement and glucose control with insulin. Quality Quality Stroke Does the patient have a stroke diagnosis?: No VTE Prior VTE?: No VTE Risk Level:: Medical - moderate - high VTE Device Contraindication: N/A - Device Ordered VTE Drug Contraindication: N/A - Med Ordered
[2024-09-23 13:23] LABS: Glucose, Whole Blood 93 mg/dL (60-115)
[2024-09-23 13:40] LABS: Anion Gap 9 (12-20); Blood Urea Nitrogen 10 mg/dL (9-16); Carbon Dioxide 30 mmol/L (22-29); Chloride 104 mmol/L (96-108); Creatinine Clr Calc Pharmacy 89.3; Estimated Glomerular Filt Rate > 60; Glucose Random 90 mg/dL (60-115); Potassium 3.9 mmol/L (3.3-5.1); Sodium 139 mmol/L (135-145)
--- NOTE | 2024-09-23 13:46 | MHC.CM.PN ---
EMR reviewed and per MD rounds, pt is not medically cleared for discharge at this time.
[2024-09-23 14:23] LABS: Alkaline Phosphatase 95 U/L (39-117)
[2024-09-23] MEDS: Simethicone 80 MG TAB.CHEW PO ×2 (15:50→21:14)
[2024-09-23 16:04] LABS: Glucose, Whole Blood 159 mg/dL (60-115)
[2024-09-23 20:55] LABS: Glucose, Whole Blood 161 mg/dL (60-115)
[2024-09-23] MEDS: Zolpidem Tartrate 5 MG TABLET 10 MG PO (21:14)
[2024-09-23] MEDS: Sennosides 8.6 MG TABLET 17.2 MG PO (21:14)
[2024-09-24] VITALS (15 sets, daily range): BP systolic 81–135; BP diastolic 44–75; PULSE 63–106; RESP 14–21; TEMP 36.4–37.3; O2SAT 95–100
[2024-09-24] MEDS: HYDROmorphone HCl 0.5 MG/0.5 ML SYRINGE IVPUSH ×5 (01:45→21:34)
[2024-09-24] MEDS: Metoclopramide HCl 10 MG/2 ML VIAL IVPUSH (06:14)
[2024-09-24 06:29] LABS: MANUAL DIFF FLAG NO
[2024-09-24 06:47] LABS: Anion Gap 13 (12-20); Blood Urea Nitrogen 8 mg/dL (9-16); Calcium 9.3 mg/dL (8.4-10.2); Carbon Dioxide 27 mmol/L (22-29); Chloride 103 mmol/L (96-108); Creatinine Clr Calc Pharmacy 80.8; Estimated Glomerular Filt Rate > 60; Glucose Random 248 mg/dL (60-115); Potassium 4.4 mmol/L (3.3-5.1); Sodium 139 mmol/L (135-145)
[2024-09-24 06:50] LABS: Basophils Percent Auto 0.3 % (0-2); Eosinophils Absolute Auto 0.3 X10*3/uL (0.0-0.4); Eosinophils Percent Auto 2.1 % (0-4); Hematocrit 28.8 % (37.0-47.0); Hemoglobin 9.2 g/dl (12.0-16.0); Imm Gran Abs Auto 0.06 X10*3/uL (0.00-0.03); Imm Gran Pct Auto 0.5 % (0.0-0.4); Lymphocytes Absolute Auto 3.8 X10*3/uL (1.2-4.9); Lymphocytes Percent Auto 29.4 % (20-40); Mean Corpuscular HGB Conc 31.9 g/dl (31.0-35.0); Mean Corpuscular Hemoglobin 26.7 pg (27.0-33.0); Mean Corpuscular Volume 83.5 fL (80.0-98.0); Monocytes Absolute Auto 0.8 X10*3/uL (0.1-1.2); Neutrophils Absolute Auto 7.9 x10*3/uL (2.0-8.3); Neutrophils Percent Auto 61.7 % (45-73); Platelet Count 526 X10*3/uL (160-400); Red Blood Count 3.45 X10*6/uL (4.20-5.50); Red Cell Distribution Width 15.6 % (11.0-16.0); White Blood Count 12.8 X10*3/uL (4.8-10.8)
[2024-09-24 07:43] LABS: Glucose, Whole Blood 253 mg/dL (60-115)
--- NOTE | 2024-09-24 07:54 | PC.NURSE ---
BP 88/54 pt alert and oriented , slight dizziness when getting up to sitting position, Dr Whipple notified .
--- NOTE | 2024-09-24 07:57 | PC.NURSE ---
Addendum entered by Marily Watkins RN 09/24/24 07:59: per DR Whipple , do not administer insulin this am for this patient Original Note: blood sugar 253 pt NPO for upper endo today , MD Hodges as was notified if Insulin should be given for this pt now ?
[2024-09-24] MEDS: Lactated Ringers 1,000 ML 100 ML IVCONT ×3 (09:05→21:25)
[2024-09-24] MEDS: Midodrine HCl 5 MG TABLET PO (09:07)
[2024-09-24 10:59] LABS: Glucose, Whole Blood 308 mg/dL (60-115)
[2024-09-24] MEDS: ondansetron HCL 4 MG/2 ML VIAL IVPUSH ×2 (11:07→20:05)
[2024-09-24] MEDS: Metoprolol Tartrate 25 MG TABLET PO ×2 (11:07→20:05)
[2024-09-24] MEDS: 0.9 % Sodium Chloride Flush 3 ML SYRINGE IVFLUSH ×3 (11:08→21:36)
--- NOTE | 2024-09-24 11:17 | PC.NURSE ---
pt refuse lamotragine and risperidal
[2024-09-24] MEDS: Betamethasone Dip Aug 0.05% Cr 15 GM TUBE 1 APPL TOPICAL ×2 (11:22→20:04)
--- NOTE | 2024-09-24 11:28 | PC.NURSE ---
pt NPO , upper endo scheduled for 3 pm today, POC 308, DR Whipple was notified in re: Insulin dose for now , DR Whipple :do not give 8 units as per sliding scale give 6 units of Lispro Sq
[2024-09-24] MEDS: Insulin Lispro 100 UNIT/ML 3 ML VIAL SUBCUT ×2 (11:33→20:05)
--- NOTE | 2024-09-24 13:42 | HO.PM.IMPN ---
Subjective Subjective Date of Service: 09/24/24 Interval History: NPO for upper endoscopy, complaining of persistent mid abdominal discomfort. Review of Systems all other system reviewed and are negative Physical Exam Vital Signs: Vital Signs: Last Vital Signs Temp 97.5 F 09/24/24 07:35 Pulse 88 09/24/24 11:06 Resp 18 09/24/24 11:06 BP 135/75 09/24/24 11:06 Pulse Ox 98 09/24/24 07:35 O2 Del Method Room Air 09/24/24 07:35 O2 Flow Rate 99 09/18/24 14:38 BMI result Body Mass Index 24.3 Const: Other: Constitutional : Awake, interactive, in no acute distress Neck : Supple Cardiovascular : RRR, Respiratory : good bilateral air entry, no crackles, wheezes or rhonchi Gastrointestinal: soft, Normal bowel sounds, epigastric discomfort Skin : Warm, Dry extremities no edema Neurological : Alert & oriented x3, No focal deficit Objective Data Active Medications Acetaminophen (Acetaminophen 325 Mg Tablet) 650 mg PO Q6H PRN PRN Reason: Pain, Mild 1-3,fever,headache Al Hydroxide/Mg Hydroxide (Magnesium Hydrox/Alum Hydrox 30 Ml Oral.Susp) 30 ml PO Q4H PRN PRN Reason: Heartburn Betamethasone Dipropion Augmented (Betamethasone Dip Aug 0.05% Cr 15 Gm Tube) 1 appl TOPICAL BID [facility]; Protocol Last Admin: 09/24/24 11:22 Dose: 1 appl Documented By: MANUELA Calcium Carbonate (Calcium Carbonate 750 Mg Tab.Chew) 750 mg PO Q4H PRN PRN Reason: Heartburn Docusate Sodium (Docusate Sodium 100 Mg Capsule) 100 mg PO BID [facility] Last Admin: 09/24/24 09:19 Dose: Not Given Documented By: MANUELA Non-Admin Reason: NPO Enoxaparin Sodium (Enoxaparin Sodium 40 Mg/0.4 Ml Syringe) 40 mg SUBCUT Q24H [facility] Last Admin: 09/24/24 09:20 Dose: Not Given Documented By: MANUELA Non-Admin Reason: pre op Glucose (Glucose Gel 15 Gm Gel..Gram.) 15 gm PO Q15M PRN PRN Reason: per Hypoglycemia Standing Ord. Lactated Ringer's (Lr) 1,000 mls @ 100 mls/hr IVCONT .Q10H [facility] Last Admin: 09/24/24 09:05 Dose: 100 mls/hr Documented By: MANUELA Insulin Glargine (Insulin Glargine,Hum.Rec.Anlog 100 Unit/Ml 10 Ml Vial) 15 unit SUBCUT DAILY [facility] Last Admin: 09/24/24 09:19 Dose: Not Given Documented By: MANUELA Non-Admin Reason: Physician Held Med Insulin Human Lispro (Insulin Lispro 100 Unit/Ml 3 Ml Vial) 0 unit SUBCUT QIDACHS [facility]; Protocol Last Admin: 09/24/24 11:33 Dose: 6 unit Documented By: MANUELA Lamotrigine (Lamotrigine 100 Mg Tablet) 200 mg PO BID [facility] Last Admin: 09/24/24 09:23 Dose: Not Given Documented By: MANUELA Non-Admin Reason: NPO Lorazepam (Lorazepam 2 Mg/Ml Vial) 0.5 mg IVPUSH Q6H PRN PRN Reason: Anxiety, Nausea Last Admin: 09/23/24 17:24 Dose: 0.5 mg Documented By: CLAUDETTE Magnesium Hydroxide (Milk Of Magnesia 30 Ml Oral.Susp) 30 ml PO DAILY PRN PRN Reason: Constipation Melatonin (Melatonin 3 Mg Tablet) 6 mg PO BEDTIME PRN PRN Reason: Insomnia Metoclopramide HCl (Metoclopramide Hcl 10 Mg/2 Ml Vial) 10 mg IVPUSH Q6H PRN PRN Reason: Nausea and Vomiting Last Admin: 09/24/24 06:14 Dose: 10 mg Documented By: KEIKO Metoprolol Tartrate (Metoprolol Tartrate 25 Mg Tablet) 25 mg PO BID [facility]; Protocol Last Admin: 09/24/24 11:07 Dose: 25 mg Documented By: MANUELA Midodrine (Midodrine Hcl 5 Mg Tablet) 5 mg PO DAILY [facility] Last Admin: 09/24/24 09:07 Dose: 5 mg Documented By: MANUELA Omeprazole (Omeprazole 20 Mg Capsule.Dr) 20 mg PO BID@0630,1630 [facility] Last Admin: 09/24/24 05:30 Dose: Not Given Documented By: KEIKO Non-Admin Reason: NPO Ondansetron HCl (Ondansetron Hcl 4 Mg/2 Ml Vial) 4 mg IVPUSH Q8H [facility] Last Admin: 09/24/24 11:07 Dose: 4 mg Documented By: MANUELA Polyethylene Glycol (Polyethylene Glycol 3350 17 Gm Powd.Pack) 17 gm PO DAILY [facility] Last Admin: 09/24/24 09:23 Dose: Not Given Documented By: MANUELA Non-Admin Reason: NPO Risperidone (Risperidone 2 Mg Tablet) 2 mg PO BID [facility] Last Admin: 09/24/24 09:23 Dose: Not Given Documented By: MANUELA Non-Admin Reason: NPO Senna (Sennosides 8.6 Mg Tablet) 8.6 mg PO BID PRN PRN Reason: constipation Senna (Sennosides 8.6 Mg Tablet) 17.2 mg PO BEDTIME [facility] Last Admin: 09/23/24 21:14 Dose: 17.2 mg Documented By: KEIKO Simethicone (Simethicone 80 Mg Tab.Chew) 80 mg PO TID [facility] Last Admin: 09/24/24 09:23 Dose: Not Given Documented By: MANUELA Non-Admin Reason: NPO Sodium Chloride (0.9 % Sodium Chloride Flush 3 Ml Syringe) 3 ml IVFLUSH QSHIFT [facility] Last Admin: 09/24/24 11:08 Dose: 3 ml Documented By: MANUELA Zolpidem Tartrate (Zolpidem Tartrate 5 Mg Tablet) 10 mg PO BEDTIME [facility] Last Admin: 09/23/24 21:14 Dose: 10 mg Documented By: KEIKO Labs 09/24/24 06:07 09/24/24 06:07 Labs: Laboratory Results - last 24 hr 09/23/24 09/23/24 09/23/24 10:31 15:59 20:51 MCV MCH MCHC RDW Plt Count MPV Immature Gran % (Auto) Neut % (Auto) Lymph % (Auto) [place] % (Auto) Eos % (Auto) Baso % (Auto) Lymph # (Auto) [place] # (Auto) Eos # (Auto) Baso # (Auto) Abs Immat Gran (auto) Absolute Neuts (auto) Absolute Nucleated RBC Nucleated RBC % (auto) Anion Gap Estim Creat Clear Calc Estimated GFR POC Glucose 159 H 161 H Random Glucose Calcium Alkaline Phosphatase 95 09/24/24 09/24/2425 06:07 07:39 10:46 MCV 83.5 MCH 26.7 L MCHC 31.9 RDW 15.6 Plt Count 526 H MPV 9.0 L Immature Gran % (Auto) 0.5 H Neut % (Auto) 61.7 Lymph % (Auto) 29.4 [place] % (Auto) 6.0 Eos % (Auto) 2.1 Baso % (Auto) 0.3 Lymph # (Auto) 3.8 [place] # (Auto) 0.8 Eos # (Auto) 0.3 Baso # (Auto) 0.0 Abs Immat Gran (auto) 0.06 H Absolute Neuts (auto) 7.9 Absolute Nucleated RBC 0.000 Nucleated RBC % (auto) 0.0 Anion Gap 13 Estim Creat Clear Calc 80.8 Estimated GFR > 60 POC Glucose 253 H 308 H Random Glucose 248 H Calcium 9.3 Alkaline Phosphatase Assessment and Plan (1) Intractable cyclical vomiting with nausea: Status: Acute (2) Acidosis, lactic: Status: Acute Plan 49 year old female with past medical history of type 1 diabetes mellitus (on insulin pump), diabetic gastroparesis, and cyclical vomiting here with: Gastroparesis/cyclic vomiting syndrome with intractable abdominal pain and vomiting. leukocytosis resolved on Zofran Q8 lore and Reglan 10 mg IV q6 prn Bowel regimen Ativan for anxiety npo for upper endo Anxiety Lorazepam PRN to help with nausea and anxiety Acute hypokalemia repleted K 4.4 Acute hypocalcemia resolved acute Lactic acidosis no evidence of sepsis resolved with IVF bolus Hyperglycemia in type 1 Diabetes insulin pump run out of insulin Start Lantus 15 units, adjust as needed SSI Chronic anemia. stable H&H. Mood disorder Risperidone and LAmotrigine DVT prophylaxis: Lovenox Code status: Full Patient will need hospitalization overnight for intractable nausea\vomiting treatment with antiemetic therapy, pain control with IV analgesia, IV electrolytes replacement and glucose control with insulin. Quality Stroke Does the patient have a stroke diagnosis?: No VTE Prior VTE?: No VTE Risk Level:: Medical - moderate - high VTE Device Contraindication: N/A - Device Ordered VTE Drug Contraindication: N/A - Med Ordered
--- NOTE | 2024-09-24 13:43 | MHC.SHP ---
Pre-Procedural Eval Section A - 24 Hr Update-Section A only Date of Service: 09/24/24 The patient is an INPATIENT: Yes The patient has been examined within 24 hours of the surgical procedure. The History & Physical has been completed within 30 days and I have reviewed it.: Yes Section B - Complete if H&P > 30 days Chief Complaint: intractable nausea/vomiting Allergies: Allergies Allergy/AdvReac Type Severity Reaction Status Date / Time morphine [MORPHINE] Allergy Intermediate RASH, Verified 09/17/24 17:18 hives, hives mushroom Allergy Intermediate HIVES/RASH Verified 09/17/24 17:18 Sulfa (Sulfonamide Allergy Mild Rash Verified 09/17/24 17:18 Antibiotics) mushroom Allergy Unknown throat Uncoded 09/17/24 17:18 closes up/difficult breathing mushrooms Allergy Unknown anaphylaxis Uncoded 09/17/24 17:18 Plan Diagnosis/Plan: Unchanged I have reviewed the history and physical and performed a pertinent physical examination on my patient. No changes have occurred unless specified. Time Spent With Patient Time: Total time managing care of this patient today ____ minutes.
[2024-09-24 13:52] LABS: Glucose, Whole Blood 181 mg/dL (60-115)
--- NOTE | 2024-09-24 14:40 | P.CONAN_ITS ---
HPI - Anesthesia Eval Consult details Narrative: 49 yo female for EGD PMFSH Active Problems Active Problems: All Active Problems Intractable cyclical vomiting with nausea (Acute) Acidosis, lactic (Acute) Insomnia (Acute) Nevus of female breast (Acute) Annual physical exam (Acute) Type 1 diabetes (Acute) Diabetic gastroparesis (Acute) Type 1 diabetes (Acute) Urinary frequency (Acute) Dysuria (Acute) Acute hypokalemia (Acute) Hospital discharge follow-up (Acute) Recurrent UTI (Acute) Screening for breast cancer (Acute) Screening for colon cancer (Acute) Adult general medical exam (Acute) UTI (urinary tract infection) (Acute) Anxiety (Acute) Idiopathic hypotension (Acute) GERD (gastroesophageal reflux disease) (Acute) Screening for hyperlipidemia (Acute) History of non-ST elevation myocardial infarction (NSTEMI) (Acute) Diabetes type 1, controlled (Acute) Acute kidney injury (Acute) Hyperkalemia (Acute) Bipolar 1 disorder (Acute) Osteoarthritis of lumbar spine with myelopathy (Acute) Marijuana use Past Medical History Medical History Intractable cyclical vomiting with nausea Intractable nausea and vomiting Diabetic gastroparesis Acute UTI Diabetes mellitus type 1 Chronic hypertension Diabetes mellitus with gastroparesis Diabetic gastroparesis Herpes zoster Status post fall Recurrent UTI NSTEMI (non-ST elevated myocardial infarction) Diabetic gastroparesis Anxiety Bipolar 1 disorder Pancreatitis Gastroparesis Diabetes Functional capacity: independent ambulation Family History Family history of problems with anesthesia: No Surgical History Surgical History History of cholecystectomy History of tonsillectomy History of ERCP H/O pyloroplasty History of appendectomy H/O: hysterectomy History of Problems with Anesthesia: No Social History Social History Household Members: Spouse Housing: House Housing Other:: mobile home Do you presently have visiting nurse or other home services: No Unable to assess alcohol history related to: Refusing to respond Alcohol intake: never Comment: pt refused bed alarm Patient Tobacco Use Status: Former Tobacco user Tobacco use type: Cigarette e-Cigarette/Vaping Use: Former Use Second Hand Smoke Exposure: No Substance Use Type: Marijuana Advance Directives Date on File: 12/03/22 service: No Current occupational status: disabled Cognitive needs: No Hearing needs: No Vision needs: No Meds Allergies Allergy/AdvReac Type Severity Reaction Status Date / Time morphine [MORPHINE] Allergy Intermediate RASH, Verified 09/17/24 17:18 hives, hives mushroom Allergy Intermediate HIVES/RASH Verified 09/17/24 17:18 Sulfa (Sulfonamide Allergy Mild Rash Verified 09/17/24 17:18 Antibiotics) mushroom Allergy Unknown throat Uncoded 09/17/24 17:18 closes up/difficult breathing mushrooms Allergy Unknown anaphylaxis Uncoded 09/17/24 17:18 Active Medications: Current Medications Acetaminophen (Acetaminophen 325 Mg Tablet) 650 mg PO Q6H PRN PRN Reason: Pain, Mild 1-3,fever,headache Al Hydroxide/Mg Hydroxide (Magnesium Hydrox/Alum Hydrox 30 Ml Oral.Susp) 30 ml PO Q4H PRN PRN Reason: Heartburn Betamethasone Dipropion Augmented (Betamethasone Dip Aug 0.05% Cr 15 Gm Tube) 1 appl TOPICAL BID [facility]; Protocol Last Admin: 09/24/24 11:22 Dose: 1 appl Calcium Carbonate (Calcium Carbonate 750 Mg Tab.Chew) 750 mg PO Q4H PRN PRN Reason: Heartburn Docusate Sodium (Docusate Sodium 100 Mg Capsule) 100 mg PO BID [facility] Last Admin: 09/24/24 09:19 Dose: Not Given Enoxaparin Sodium (Enoxaparin Sodium 40 Mg/0.4 Ml Syringe) 40 mg SUBCUT Q24H [facility] Last Admin: 09/24/24 09:20 Dose: Not Given Glucose (Glucose Gel 15 Gm Gel..Gram.) 15 gm PO Q15M PRN PRN Reason: per Hypoglycemia Standing Ord. Lactated Ringer's (Lr) 1,000 mls @ 100 mls/hr IVCONT .Q10H [facility] Last Admin: 09/24/24 09:05 Dose: 100 mls/hr Insulin Glargine (Insulin Glargine,Hum.Rec.Anlog 100 Unit/Ml 10 Ml Vial) 15 unit SUBCUT DAILY [facility] Last Admin: 09/24/24 09:19 Dose: Not Given Insulin Human Lispro (Insulin Lispro 100 Unit/Ml 3 Ml Vial) 0 unit SUBCUT QIDACHS [facility]; Protocol Last Admin: 09/24/24 11:33 Dose: 6 unit Lamotrigine (Lamotrigine 100 Mg Tablet) 200 mg PO BID [facility] Last Admin: 09/24/24 09:23 Dose: Not Given Lorazepam (Lorazepam 2 Mg/Ml Vial) 0.5 mg IVPUSH Q6H PRN PRN Reason: Anxiety, Nausea Last Admin: 09/23/24 17:24 Dose: 0.5 mg Magnesium Hydroxide (Milk Of Magnesia 30 Ml Oral.Susp) 30 ml PO DAILY PRN PRN Reason: Constipation Melatonin (Melatonin 3 Mg Tablet) 6 mg PO BEDTIME PRN PRN Reason: Insomnia Metoclopramide HCl (Metoclopramide Hcl 10 Mg/2 Ml Vial) 10 mg IVPUSH Q6H PRN PRN Reason: Nausea and Vomiting Last Admin: 09/24/24 06:14 Dose: 10 mg Metoprolol Tartrate (Metoprolol Tartrate 25 Mg Tablet) 25 mg PO BID [facility]; Protocol Last Admin: 09/24/24 11:07 Dose: 25 mg Midodrine (Midodrine Hcl 5 Mg Tablet) 5 mg PO DAILY [facility] Last Admin: 09/24/24 09:07 Dose: 5 mg Omeprazole (Omeprazole 20 Mg Capsule.Dr) 20 mg PO BID@0630,1630 [facility] Last Admin: 09/24/24 05:30 Dose: Not Given Ondansetron HCl (Ondansetron Hcl 4 Mg/2 Ml Vial) 4 mg IVPUSH Q8H [facility] Last Admin: 09/24/24 11:07 Dose: 4 mg Polyethylene Glycol (Polyethylene Glycol 3350 17 Gm Powd.Pack) 17 gm PO DAILY [facility] Last Admin: 09/24/24 09:23 Dose: Not Given Risperidone (Risperidone 2 Mg Tablet) 2 mg PO BID [facility] Last Admin: 09/24/24 09:23 Dose: Not Given Senna (Sennosides 8.6 Mg Tablet) 8.6 mg PO BID PRN PRN Reason: constipation Senna (Sennosides 8.6 Mg Tablet) 17.2 mg PO BEDTIME [facility] Last Admin: 09/23/24 21:14 Dose: 17.2 mg Simethicone (Simethicone 80 Mg Tab.Chew) 80 mg PO TID [facility] Last Admin: 09/24/24 14:23 Dose: Not Given Sodium Chloride (0.9 % Sodium Chloride Flush 3 Ml Syringe) 3 ml IVFLUSH QSHIFT [facility] Last Admin: 09/24/24 11:08 Dose: 3 ml Zolpidem Tartrate (Zolpidem Tartrate 5 Mg Tablet) 10 mg PO BEDTIME [facility] Last Admin: 09/23/24 21:14 Dose: 10 mg Home Medications ?Medication ?Instructions ?Recorded ?Confirmed ?Last Taken ?Type lamotrigine 200 mg tablet 200 mg PO BID 05/11/20 09/17/24 07/23/24 History lorazepam 1 mg tablet 1 mg PO TID PRN Anxiety 05/11/20 09/17/24 07/23/24 History zolpidem 10 mg tablet 10 mg PO BEDTIME 05/11/20 09/17/24 07/23/24 History risperidone 2 mg tablet 2 mg PO BID 09/13/21 09/17/24 07/23/24 History insulin aspart U-100 100 unit/mL 0 - 100 unit subcut DAILY 07/23/24 09/17/24 07/23/24 History subcutaneous solution (Novolog U-100 Insulin aspart) docusate sodium 100 mg capsule 100 mg PO BID 09/17/24 09/17/24 Unknown History glucagon 1 mg solution for 1 mg IM Q15M PRN Hypoglycemia 09/17/24 09/17/24 Unknown History injection (Glucagon Emergency Kit) insulin glargine 100 unit/mL (3 See Rx Instructions .Route 09/17/24 09/18/24 Unknown History mL) subcutaneous pen (Lantus .COMPLEX PRN pump not working Solostar U-100 Insulin) sennosides 8.6 mg tablet (senna) 8.6 mg PO BID PRN constipation 09/17/24 09/17/24 Unknown History simethicone 80 mg chewable tablet 80 mg PO TID PRN gas 09/17/24 09/17/24 Unknown History subcutaneous insulin pump 09/17/24 09/17/24 Unknown History pantoprazole 40 mg tablet,delayed 40 mg PO BID 09/18/24 09/18/24 Unknown History release Exam Height,Weight and Vital Signs: Height 5 ft 8 in Weight 72.575 kg Last Vital Signs Temp 98.1 F 09/24/24 13:46 Pulse 89 09/24/24 13:46 Resp 16 09/24/24 13:46 BP 107/59 L 09/24/24 13:46 Pulse Ox 100 09/24/24 13:46 O2 Del Method Room Air 09/24/24 13:46 O2 Flow Rate 99 09/18/24 14:38 Pertinent Lab Results Pertinent Lab Results: Laboratory Tests 09/17/24 09/17/24 09/17/24 17:01 17:12 17:28 WBC 14.3 H RBC 3.93 L Hgb 10.5 L Hct 32.4 L MCV 82.4 MCH 26.7 L MCHC 32.4 RDW 15.9 Plt Count 625 H D MPV 8.7 L Immature Gran % (Auto) 0.4 Neut % (Auto) 90.1 H Lymph % (Auto) 7.8 L [facility] % (Auto) 1.3 L Eos % (Auto) 0.0 Baso % (Auto) 0.4 Lymph # (Auto) 1.1 L [facility] # (Auto) 0.2 Eos # (Auto) 0.0 Baso # (Auto) 0.1 Abs Immat Gran (auto) 0.06 H Absolute Neuts (auto) 12.9 H Absolute Nucleated RBC 0.000 Nucleated RBC % (auto) 0.0 Smear Tech's Comments VERIFIED Hold Purple Top VBG pH VBG pCO2 VBG pO2 VBG HCO3 VBG O2 Saturation VBG Base Excess Sodium 139 Potassium 3.9 Chloride 102 Carbon Dioxide 18 L Anion Gap 23 H BUN 15 Creatinine 1.16 Estim Creat Clear Calc 58.5 Estimated GFR 49 POC Glucose 368 H* Random Glucose 353 H* Lactic Acid 4.8 H* Lactic Acid F/U @ 2Hr Calcium 10.0 D Magnesium 1.7 Total Bilirubin 0.2 Direct Bilirubin < 0.2 AST 15 ALT 6 Alkaline Phosphatase 137 H Total Protein 8.7 H Albumin 4.5 Amylase Lipase 5 L Beta-Hydroxybutyrate 1.15 H Beta HCG, Quant < 2 Urine Color Urine Appearance Urine pH Ur Specific [place] Urine Protein Urine Glucose (UA) Urine Ketones Urine Blood Urine Nitrite Ur Leukocyte Esterase Urine RBC Urine WBC Ur Squamous Epith Cells Urine Bacteria Hyaline Casts Urine Opiates Screen Ur Buprenorphine Scrn Ur Oxycodone Screen Urine Methadone Screen Urine Fentanyl Screen Ur Barbiturates Screen Ur Phencyclidine Scrn Ur Amphetamines Screen U Benzodiazepines Scrn Urine Cocaine Screen U Marijuana (THC) Screen COVID-19 ([facility]) COVID-19 Clin Com Influenza Type A (PCR) NEGATIVE Influenza Type B (PCR) NEGATIVE RSV RNA Qual (PCR) NEGATIVE SARS-CoV-2 RNA (RT-PCR) NEGATIVE 09/17/24 09/17/24 09/17/24 17:34 19:16 19:48 WBC RBC Hgb Hct MCV MCH MCHC RDW Plt Count MPV Immature Gran % (Auto) Neut % (Auto) Lymph % (Auto) [facility] % (Auto) Eos % (Auto) Baso % (Auto) Lymph # (Auto) [facility] # (Auto) Eos # (Auto) Baso # (Auto) Abs Immat Gran (auto) Absolute Neuts (auto) Absolute Nucleated RBC Nucleated RBC % (auto) Smear Tech's Comments Hold Purple Top VBG pH 7.65 H* VBG pCO2 17 VBG pO2 107 VBG HCO3 19 L VBG O2 Saturation 100.0 VBG Base Excess 1.9 Sodium 139 Potassium 3.9 Chloride 101 Carbon Dioxide 19 L Anion Gap 23 H BUN 13 Creatinine 0.97 Estim Creat Clear Calc 70.0 Estimated GFR > 60 POC Glucose Random Glucose 296 H Lactic Acid 4.8 H* Lactic Acid F/U @ 2Hr Calcium 9.5 Magnesium Total Bilirubin Direct Bilirubin AST ALT Alkaline Phosphatase Total Protein Albumin Amylase Lipase Beta-Hydroxybutyrate Beta HCG, Quant Urine Color Yellow Urine Appearance Clear Urine pH 7.5 Ur Specific [place] 1.015 Urine Protein 30 (1+) H Urine Glucose (UA) >=1000 H Urine Ketones 15 Urine Blood Small (1+) H Urine Nitrite Negative Ur Leukocyte Esterase Negative Urine RBC 11-20 H Urine WBC 0-5 Ur Squamous Epith Cells 6-10 Urine Bacteria None Seen Hyaline Casts 0-2 Urine Opiates Screen Not Detected Ur Buprenorphine Scrn Not Detected Ur Oxycodone Screen Not Detected Urine Methadone Screen Not Detected Urine Fentanyl Screen Not Detected Ur Barbiturates Screen Not Detected Ur Phencyclidine Scrn Not Detected Ur Amphetamines Screen Not Detected U Benzodiazepines Scrn Not Detected Urine Cocaine Screen Not Detected U Marijuana (THC) Screen POSITIVE H COVID-19 ([facility]) COVID-19 Clin Com Influenza Type A (PCR) Influenza Type B (PCR) RSV RNA Qual (PCR) SARS-CoV-2 RNA (RT-PCR) 09/17/24 09/18/24 09/18/24 22:51 04:50 12:32 WBC 13.9 H RBC 3.88 L Hgb 10.3 L Hct 31.1 L MCV 80.2 MCH 26.5 L MCHC 33.1 RDW 16.1 H Plt Count 574 H MPV 9.2 L Immature Gran % (Auto) 0.6 H Neut % (Auto) 79.5 H Lymph % (Auto) 14.5 L [facility] % (Auto) 5.1 Eos % (Auto) 0.0 Baso % (Auto) 0.3 Lymph # (Auto) 2.0 [facility] # (Auto) 0.7 Eos # (Auto) 0.0 Baso # (Auto) 0.0 Abs Immat Gran (auto) 0.08 H Absolute Neuts (auto) 11.0 H Absolute Nucleated RBC 0.000 Nucleated RBC % (auto) 0.0 Smear Tech's Comments VERIFIED Hold Purple Top VBG pH VBG pCO2 VBG pO2 VBG HCO3 VBG O2 Saturation VBG Base Excess Sodium 139 Potassium 3.7 Chloride 105 Carbon Dioxide 21 L Anion Gap 17 BUN 11 Creatinine 0.77 Estim Creat Clear Calc 88.1 Estimated GFR > 60 POC Glucose 217 H Random Glucose 161 H Lactic Acid Lactic Acid F/U @ 2Hr 1.4 Calcium 9.5 Magnesium Total Bilirubin 0.3 Direct Bilirubin AST 16 ALT 7 Alkaline Phosphatase 128 H Total Protein 8.3 H Albumin 4.2 Amylase Lipase Beta-Hydroxybutyrate Beta HCG, Quant Urine Color Urine Appearance Urine pH Ur Specific [place] Urine Protein Urine Glucose (UA) Urine Ketones Urine Blood Urine Nitrite Ur Leukocyte Esterase Urine RBC Urine WBC Ur Squamous Epith Cells Urine Bacteria Hyaline Casts Urine Opiates Screen Ur Buprenorphine Scrn Ur Oxycodone Screen Urine Methadone Screen Urine Fentanyl Screen Ur Barbiturates Screen Ur Phencyclidine Scrn Ur Amphetamines Screen U Benzodiazepines Scrn Urine Cocaine Screen U Marijuana (THC) Screen COVID-19 ([facility]) COVID-19 Clin Com Influenza Type A (PCR) Influenza Type B (PCR) RSV RNA Qual (PCR) SARS-CoV-2 RNA (RT-PCR) 09/19/24 09/19/24 09/19/24 07:20 07:26 10:45 WBC 13.5 H RBC 3.13 L Hgb 8.3 L Hct 26.0 L MCV 83.1 MCH 26.5 L MCHC 31.9 RDW 15.8 Plt Count 504 H MPV 8.8 L Immature Gran % (Auto) 0.3 Neut % (Auto) 63.6 Lymph % (Auto) 27.3 [facility] % (Auto) 7.6 Eos % (Auto) 0.6 Baso % (Auto) 0.6 Lymph # (Auto) 3.7 [facility] # (Auto) 1.0 Eos # (Auto) 0.1 Baso # (Auto) 0.1 Abs Immat Gran (auto) 0.04 H Absolute Neuts (auto) 8.6 H Absolute Nucleated RBC 0.000 Nucleated RBC % (auto) 0.0 Smear Tech's Comments Hold Purple Top VBG pH VBG pCO2 VBG pO2 VBG HCO3 VBG O2 Saturation VBG Base Excess Sodium 139 Potassium 3.0 L Chloride 104 Carbon Dioxide 28 Anion Gap 10 L BUN 7 L Creatinine 0.68 Estim Creat Clear Calc 99.8 Estimated GFR > 60 POC Glucose 128 H 132 H Random Glucose 137 H Lactic Acid Lactic Acid F/U @ 2Hr Calcium 8.7 D Magnesium Total Bilirubin Direct Bilirubin AST ALT Alkaline Phosphatase Total Protein Albumin Amylase Lipase Beta-Hydroxybutyrate Beta HCG, Quant Urine Color Urine Appearance Urine pH Ur Specific [place] Urine Protein Urine Glucose (UA) Urine Ketones Urine Blood Urine Nitrite Ur Leukocyte Esterase Urine RBC Urine WBC Ur Squamous Epith Cells Urine Bacteria Hyaline Casts Urine Opiates Screen Ur Buprenorphine Scrn Ur Oxycodone Screen Urine Methadone Screen Urine Fentanyl Screen Ur Barbiturates Screen Ur Phencyclidine Scrn Ur Amphetamines Screen U Benzodiazepines Scrn Urine Cocaine Screen U Marijuana (THC) Screen COVID-19 ([facility]) COVID-19 Clin Com Influenza Type A (PCR) Influenza Type B (PCR) RSV RNA Qual (PCR) SARS-CoV-2 RNA (RT-PCR) 09/19/24 09/19/24 09/19/24 15:42 17:06 21:11 WBC RBC Hgb Hct MCV MCH MCHC RDW Plt Count MPV Immature Gran % (Auto) Neut % (Auto) Lymph % (Auto) [facility] % (Auto) Eos % (Auto) Baso % (Auto) Lymph # (Auto) [facility] # (Auto) Eos # (Auto) Baso # (Auto) Abs Immat Gran (auto) Absolute Neuts (auto) Absolute Nucleated RBC Nucleated RBC % (auto) Smear Tech's Comments Hold Purple Top VBG pH VBG pCO2 VBG pO2 VBG HCO3 VBG O2 Saturation VBG Base Excess Sodium Potassium Chloride Carbon Dioxide Anion Gap BUN Creatinine Estim Creat Clear Calc Estimated GFR POC Glucose 112 178 H Random Glucose Lactic Acid Lactic Acid F/U @ 2Hr Calcium Magnesium Total Bilirubin Direct Bilirubin AST ALT Alkaline Phosphatase Total Protein Albumin Amylase Lipase Beta-Hydroxybutyrate Beta HCG, Quant Urine Color Urine Appearance Urine pH Ur Specific [place] Urine Protein Urine Glucose (UA) Urine Ketones Urine Blood Urine Nitrite Ur Leukocyte Esterase Urine RBC Urine WBC Ur Squamous Epith Cells Urine Bacteria Hyaline Casts Urine Opiates Screen Ur Buprenorphine Scrn Ur Oxycodone Screen Urine Methadone Screen Urine Fentanyl Screen Ur Barbiturates Screen Ur Phencyclidine Scrn Ur Amphetamines Screen U Benzodiazepines Scrn Urine Cocaine Screen U Marijuana (THC) Screen COVID-19 ([facility]) Negative COVID-19 Clin Com See Note Influenza Type A (PCR) Influenza Type B (PCR) RSV RNA Qual (PCR) SARS-CoV-2 RNA (RT-PCR) 09/20/24 09/20/24 09/20/24 07:00 07:10 10:45 WBC 8.5 RBC 3.08 L Hgb 8.2 L Hct 25.1 L MCV 81.5 MCH 26.6 L MCHC 32.7 RDW 15.0 Plt Count 475 H MPV 8.8 L Immature Gran % (Auto) 0.2 Neut % (Auto) 54.2 Lymph % (Auto) 35.8 [facility] % (Auto) 7.5 Eos % (Auto) 1.5 Baso % (Auto) 0.8 Lymph # (Auto) 3.1 [facility] # (Auto) 0.6 Eos # (Auto) 0.1 Baso # (Auto) 0.1 Abs Immat Gran (auto) 0.02 Absolute Neuts (auto) 4.6 Absolute Nucleated RBC 0.000 Nucleated RBC % (auto) 0.0 Smear Tech's Comments Hold Purple Top VBG pH VBG pCO2 VBG pO2 VBG HCO3 VBG O2 Saturation VBG Base Excess Sodium 141 Potassium 2.9 L* Chloride 104 Carbon Dioxide 30 H Anion Gap 10 L BUN 5 L Creatinine 0.66 Estim Creat Clear Calc 102.9 Estimated GFR > 60 POC Glucose 159 H 116 H Random Glucose 162 H Lactic Acid Lactic Acid F/U @ 2Hr Calcium 8.6 Magnesium Total Bilirubin Direct Bilirubin AST ALT Alkaline Phosphatase Total Protein Albumin Amylase Lipase Beta-Hydroxybutyrate Beta HCG, Quant Urine Color Urine Appearance Urine pH Ur Specific [place] Urine Protein Urine Glucose (UA) Urine Ketones Urine Blood Urine Nitrite Ur Leukocyte Esterase Urine RBC Urine WBC Ur Squamous Epith Cells Urine Bacteria Hyaline Casts Urine Opiates Screen Ur Buprenorphine Scrn Ur Oxycodone Screen Urine Methadone Screen Urine Fentanyl Screen Ur Barbiturates Screen Ur Phencyclidine Scrn Ur Amphetamines Screen U Benzodiazepines Scrn Urine Cocaine Screen U Marijuana (THC) Screen COVID-19 ([facility]) COVID-19 Clin Com Influenza Type A (PCR) Influenza Type B (PCR) RSV RNA Qual (PCR) SARS-CoV-2 RNA (RT-PCR) 09/20/24 09/20/24 09/21/24 15:21 21:26 06:37 WBC 6.9 RBC 3.05 L Hgb 8.1 L Hct 25.2 L MCV 82.6 MCH 26.6 L MCHC 32.1 RDW 14.9 Plt Count 487 H MPV 8.9 L Immature Gran % (Auto) 0.3 Neut % (Auto) 45.8 Lymph % (Auto) 42.9 H [facility] % (Auto) 7.2 Eos % (Auto) 3.2 Baso % (Auto) 0.6 Lymph # (Auto) 2.9 [facility] # (Auto) 0.5 Eos # (Auto) 0.2 Baso # (Auto) 0.0 Abs Immat Gran (auto) 0.02 Absolute Neuts (auto) 3.1 Absolute Nucleated RBC 0.000 Nucleated RBC % (auto) 0.0 Smear Tech's Comments Hold Purple Top VBG pH VBG pCO2 VBG pO2 VBG HCO3 VBG O2 Saturation VBG Base Excess Sodium 140 Potassium 3.1 L Chloride 103 Carbon Dioxide 31 H Anion Gap 9 L BUN 4 L Creatinine 0.69 Estim Creat Clear Calc 98.3 Estimated GFR > 60 POC Glucose 138 H 141 H Random Glucose 247 H Lactic Acid Lactic Acid F/U @ 2Hr Calcium 8.6 Magnesium Total Bilirubin Direct Bilirubin AST ALT Alkaline Phosphatase Total Protein Albumin Amylase Lipase Beta-Hydroxybutyrate Beta HCG, Quant Urine Color Urine Appearance Urine pH Ur Specific [place] Urine Protein Urine Glucose (UA) Urine Ketones Urine Blood Urine Nitrite Ur Leukocyte Esterase Urine RBC Urine WBC Ur Squamous Epith Cells Urine Bacteria Hyaline Casts Urine Opiates Screen Ur Buprenorphine Scrn Ur Oxycodone Screen Urine Methadone Screen Urine Fentanyl Screen Ur Barbiturates Screen Ur Phencyclidine Scrn Ur Amphetamines Screen U Benzodiazepines Scrn Urine Cocaine Screen U Marijuana (THC) Screen COVID-19 ([facility]) COVID-19 Clin Com Influenza Type A (PCR) Influenza Type B (PCR) RSV RNA Qual (PCR) SARS-CoV-2 RNA (RT-PCR) 09/21/24 09/21/24 09/21/24 07:17 11:53 16:04 WBC RBC Hgb Hct MCV MCH MCHC RDW Plt Count MPV Immature Gran % (Auto) Neut % (Auto) Lymph % (Auto) [facility] % (Auto) Eos % (Auto) Baso % (Auto) Lymph # (Auto) [facility] # (Auto) Eos # (Auto) Baso # (Auto) Abs Immat Gran (auto) Absolute Neuts (auto) Absolute Nucleated RBC Nucleated RBC % (auto) Smear Tech's Comments Hold Purple Top VBG pH VBG pCO2 VBG pO2 VBG HCO3 VBG O2 Saturation VBG Base Excess Sodium Potassium Chloride Carbon Dioxide Anion Gap BUN Creatinine Estim Creat Clear Calc Estimated GFR POC Glucose 225 H 268 H 182 H Random Glucose Lactic Acid Lactic Acid F/U @ 2Hr Calcium Magnesium Total Bilirubin Direct Bilirubin AST ALT Alkaline Phosphatase Total Protein Albumin Amylase Lipase Beta-Hydroxybutyrate Beta HCG, Quant Urine Color Urine Appearance Urine pH Ur Specific [place] Urine Protein Urine Glucose (UA) Urine Ketones Urine Blood Urine Nitrite Ur Leukocyte Esterase Urine RBC Urine WBC Ur Squamous Epith Cells Urine Bacteria Hyaline Casts Urine Opiates Screen Ur Buprenorphine Scrn Ur Oxycodone Screen Urine Methadone Screen Urine Fentanyl Screen Ur Barbiturates Screen Ur Phencyclidine Scrn Ur Amphetamines Screen U Benzodiazepines Scrn Urine Cocaine Screen U Marijuana (THC) Screen COVID-19 ([facility]) COVID-19 Clin Com Influenza Type A (PCR) Influenza Type B (PCR) RSV RNA Qual (PCR) SARS-CoV-2 RNA (RT-PCR) 09/21/24 09/22/24 09/22/24 20:19 05:58 07:17 WBC RBC Hgb Hct MCV MCH MCHC RDW Plt Count MPV Immature Gran % (Auto) Neut % (Auto) Lymph % (Auto) [facility] % (Auto) Eos % (Auto) Baso % (Auto) Lymph # (Auto) [facility] # (Auto) Eos # (Auto) Baso # (Auto) Abs Immat Gran (auto) Absolute Neuts (auto) Absolute Nucleated RBC Nucleated RBC % (auto) Smear Tech's Comments Hold Purple Top SEE NOTE VBG pH VBG pCO2 VBG pO2 VBG HCO3 VBG O2 Saturation VBG Base Excess Sodium 140 Potassium 2.5 L* Chloride 114 H Carbon Dioxide 21 L Anion Gap 8 L BUN 5 L Creatinine 0.62 Estim Creat Clear Calc 109.5 Estimated GFR > 60 POC Glucose 277 H 477 H* Random Glucose 358 H* Lactic Acid Lactic Acid F/U @ 2Hr Calcium 5.6 L* D Magnesium Total Bilirubin 0.2 Direct Bilirubin < 0.2 AST 8 ALT < 6 Alkaline Phosphatase 67 Total Protein 4.1 L Albumin 2.2 L Amylase Lipase Beta-Hydroxybutyrate Beta HCG, Quant Urine Color Urine Appearance Urine pH Ur Specific [place] Urine Protein Urine Glucose (UA) Urine Ketones Urine Blood Urine Nitrite Ur Leukocyte Esterase Urine RBC Urine WBC Ur Squamous Epith Cells Urine Bacteria Hyaline Casts Urine Opiates Screen Ur Buprenorphine Scrn Ur Oxycodone Screen Urine Methadone Screen Urine Fentanyl Screen Ur Barbiturates Screen Ur Phencyclidine Scrn Ur Amphetamines Screen U Benzodiazepines Scrn Urine Cocaine Screen U Marijuana (THC) Screen COVID-19 ([facility]) COVID-19 Clin Com Influenza Type A (PCR) Influenza Type B (PCR) RSV RNA Qual (PCR) SARS-CoV-2 RNA (RT-PCR) 09/22/24 09/22/24 09/22/24 11:11 12:57 15:35 WBC RBC Hgb Hct MCV MCH MCHC RDW Plt Count MPV Immature Gran % (Auto) Neut % (Auto) Lymph % (Auto) [facility] % (Auto) Eos % (Auto) Baso % (Auto) Lymph # (Auto) [facility] # (Auto) Eos # (Auto) Baso # (Auto) Abs Immat Gran (auto) Absolute Neuts (auto) Absolute Nucleated RBC Nucleated RBC % (auto) Smear Tech's Comments Hold Purple Top VBG pH VBG pCO2 VBG pO2 VBG HCO3 VBG O2 Saturation VBG Base Excess Sodium 139 Potassium 4.2 D Chloride 103 Carbon Dioxide 29 Anion Gap 11 L BUN 10 Creatinine 0.78 Estim Creat Clear Calc 87.0 Estimated GFR > 60 POC Glucose 300 H 117 H Random Glucose 188 H Lactic Acid Lactic Acid F/U @ 2Hr Calcium 9.8 D Magnesium Total Bilirubin Direct Bilirubin AST ALT Alkaline Phosphatase Total Protein Albumin Amylase Lipase Beta-Hydroxybutyrate Beta HCG, Quant Urine Color Urine Appearance Urine pH Ur Specific [place] Urine Protein Urine Glucose (UA) Urine Ketones Urine Blood Urine Nitrite Ur Leukocyte Esterase Urine RBC Urine WBC Ur Squamous Epith Cells Urine Bacteria Hyaline Casts Urine Opiates Screen Ur Buprenorphine Scrn Ur Oxycodone Screen Urine Methadone Screen Urine Fentanyl Screen Ur Barbiturates Screen Ur Phencyclidine Scrn Ur Amphetamines Screen U Benzodiazepines Scrn Urine Cocaine Screen U Marijuana (THC) Screen COVID-19 ([facility]) COVID-19 Clin Com Influenza Type A (PCR) Influenza Type B (PCR) RSV RNA Qual (PCR) SARS-CoV-2 RNA (RT-PCR) 09/22/24 09/22/24 09/22/24 17:16 17:51 20:11 WBC RBC Hgb Hct MCV MCH MCHC RDW Plt Count MPV Immature Gran % (Auto) Neut % (Auto) Lymph % (Auto) [facility] % (Auto) Eos % (Auto) Baso % (Auto) Lymph # (Auto) [facility] # (Auto) Eos # (Auto) Baso # (Auto) Abs Immat Gran (auto) Absolute Neuts (auto) Absolute Nucleated RBC Nucleated RBC % (auto) Smear Tech's Comments Hold Purple Top VBG pH VBG pCO2 VBG pO2 VBG HCO3 VBG O2 Saturation VBG Base Excess Sodium Potassium Chloride Carbon Dioxide Anion Gap BUN Creatinine Estim Creat Clear Calc Estimated GFR POC Glucose 71 207 H 249 H Random Glucose Lactic Acid Lactic Acid F/U @ 2Hr Calcium Magnesium Total Bilirubin Direct Bilirubin AST ALT Alkaline Phosphatase Total Protein Albumin Amylase Lipase Beta-Hydroxybutyrate Beta HCG, Quant Urine Color Urine Appearance Urine pH Ur Specific [place] Urine Protein Urine Glucose (UA) Urine Ketones Urine Blood Urine Nitrite Ur Leukocyte Esterase Urine RBC Urine WBC Ur Squamous Epith Cells Urine Bacteria Hyaline Casts Urine Opiates Screen Ur Buprenorphine Scrn Ur Oxycodone Screen Urine Methadone Screen Urine Fentanyl Screen Ur Barbiturates Screen Ur Phencyclidine Scrn Ur Amphetamines Screen U Benzodiazepines Scrn Urine Cocaine Screen U Marijuana (THC) Screen COVID-19 ([facility]) COVID-19 Clin Com Influenza Type A (PCR) Influenza Type B (PCR) RSV RNA Qual (PCR) SARS-CoV-2 RNA (RT-PCR) 09/23/24 09/23/24 09/23/24 06:31 07:03 10:31 WBC 9.3 RBC 3.02 L Hgb 8.1 L Hct 24.9 L MCV 82.5 MCH 26.8 L MCHC 32.5 RDW 15.1 Plt Count 455 H MPV 9.1 L Immature Gran % (Auto) 0.2 Neut % (Auto) 58.1 Lymph % (Auto) 31.6 [facility] % (Auto) 6.6 Eos % (Auto) 2.9 Baso % (Auto) 0.6 Lymph # (Auto) 2.9 [facility] # (Auto) 0.6 Eos # (Auto) 0.3 Baso # (Auto) 0.1 Abs Immat Gran (auto) 0.02 Absolute Neuts (auto) 5.4 Absolute Nucleated RBC 0.000 Nucleated RBC % (auto) 0.0 Smear Tech's Comments Hold Purple Top VBG pH VBG pCO2 VBG pO2 VBG HCO3 VBG O2 Saturation VBG Base Excess Sodium 140 Potassium 2.9 L* D Chloride 112 H Carbon Dioxide 22 Anion Gap 9 L BUN 8 L Creatinine 0.66 Estim Creat Clear Calc 102.9 Estimated GFR > 60 POC Glucose 253 H Random Glucose 211 H Lactic Acid Lactic Acid F/U @ 2Hr Calcium 6.7 L D Magnesium 1.8 Total Bilirubin 0.2 Direct Bilirubin < 0.2 AST 15 ALT 6 Alkaline Phosphatase 95 Total Protein 6.5 Albumin 3.4 L Amylase Lipase 8 Beta-Hydroxybutyrate 0.06 Beta HCG, Quant Urine Color Urine Appearance Urine pH Ur Specific [place] Urine Protein Urine Glucose (UA) Urine Ketones Urine Blood Urine Nitrite Ur Leukocyte Esterase Urine RBC Urine WBC Ur Squamous Epith Cells Urine Bacteria Hyaline Casts Urine Opiates Screen Ur Buprenorphine Scrn Ur Oxycodone Screen Urine Methadone Screen Urine Fentanyl Screen Ur Barbiturates Screen Ur Phencyclidine Scrn Ur Amphetamines Screen U Benzodiazepines Scrn Urine Cocaine Screen U Marijuana (THC) Screen COVID-19 ([facility]) COVID-19 Clin Com Influenza Type A (PCR) Influenza Type B (PCR) RSV RNA Qual (PCR) SARS-CoV-2 RNA (RT-PCR) 09/23/24 09/23/24 09/23/24 10:33 11:02 12:54 WBC RBC Hgb Hct MCV MCH MCHC RDW Plt Count MPV Immature Gran % (Auto) Neut % (Auto) Lymph % (Auto) [facility] % (Auto) Eos % (Auto) Baso % (Auto) Lymph # (Auto) [facility] # (Auto) Eos # (Auto) Baso # (Auto) Abs Immat Gran (auto) Absolute Neuts (auto) Absolute Nucleated RBC Nucleated RBC % (auto) Smear Tech's Comments Hold Purple Top VBG pH VBG pCO2 VBG pO2 VBG HCO3 VBG O2 Saturation VBG Base Excess Sodium Potassium Chloride Carbon Dioxide Anion Gap BUN Creatinine Estim Creat Clear Calc Estimated GFR POC Glucose 148 H 93 Random Glucose Lactic Acid Lactic Acid F/U @ 2Hr Calcium Magnesium Total Bilirubin Direct Bilirubin AST ALT Alkaline Phosphatase Total Protein Albumin Amylase 28 Lipase Beta-Hydroxybutyrate Beta HCG, Quant Urine Color Urine Appearance Urine pH Ur Specific [place] Urine Protein Urine Glucose (UA) Urine Ketones Urine Blood Urine Nitrite Ur Leukocyte Esterase Urine RBC Urine WBC Ur Squamous Epith Cells Urine Bacteria Hyaline Casts Urine Opiates Screen Ur Buprenorphine Scrn Ur Oxycodone Screen Urine Methadone Screen Urine Fentanyl Screen Ur Barbiturates Screen Ur Phencyclidine Scrn Ur Amphetamines Screen U Benzodiazepines Scrn Urine Cocaine Screen U Marijuana (THC) Screen COVID-19 ([facility]) COVID-19 Clin Com Influenza Type A (PCR) Influenza Type B (PCR) RSV RNA Qual (PCR) SARS-CoV-2 RNA (RT-PCR) 09/23/24 09/23/24 09/23/24 13:14 15:59 20:51 WBC RBC Hgb Hct MCV MCH MCHC RDW Plt Count MPV Immature Gran % (Auto) Neut % (Auto) Lymph % (Auto) [facility] % (Auto) Eos % (Auto) Baso % (Auto) Lymph # (Auto) [facility] # (Auto) Eos # (Auto) Baso # (Auto) Abs Immat Gran (auto) Absolute Neuts (auto) Absolute Nucleated RBC Nucleated RBC % (auto) Smear Tech's Comments Hold Purple Top VBG pH VBG pCO2 VBG pO2 VBG HCO3 VBG O2 Saturation VBG Base Excess Sodium 139 Potassium 3.9 D Chloride 104 Carbon Dioxide 30 H Anion Gap 9 L BUN 10 Creatinine 0.76 Estim Creat Clear Calc 89.3 Estimated GFR > 60 POC Glucose 159 H 161 H Random Glucose 90 Lactic Acid Lactic Acid F/U @ 2Hr Calcium 9.0 D Magnesium Total Bilirubin Direct Bilirubin AST ALT Alkaline Phosphatase Total Protein Albumin Amylase Lipase Beta-Hydroxybutyrate Beta HCG, Quant Urine Color Urine Appearance Urine pH Ur Specific [place] Urine Protein Urine Glucose (UA) Urine Ketones Urine Blood Urine Nitrite Ur Leukocyte Esterase Urine RBC Urine WBC Ur Squamous Epith Cells Urine Bacteria Hyaline Casts Urine Opiates Screen Ur Buprenorphine Scrn Ur Oxycodone Screen Urine Methadone Screen Urine Fentanyl Screen Ur Barbiturates Screen Ur Phencyclidine Scrn Ur Amphetamines Screen U Benzodiazepines Scrn Urine Cocaine Screen U Marijuana (THC) Screen COVID-19 ([facility]) COVID-19 Clin Com Influenza Type A (PCR) Influenza Type B (PCR) RSV RNA Qual (PCR) SARS-CoV-2 RNA (RT-PCR) 09/24/24 09/24/24 09/24/24 06:07 07:39 10:46 WBC 12.8 H RBC 3.45 L Hgb 9.2 L Hct 28.8 L MCV 83.5 MCH 26.7 L MCHC 31.9 RDW 15.6 Plt Count 526 H MPV 9.0 L Immature Gran % (Auto) 0.5 H Neut % (Auto) 61.7 Lymph % (Auto) 29.4 [facility] % (Auto) 6.0 Eos % (Auto) 2.1 Baso % (Auto) 0.3 Lymph # (Auto) 3.8 [facility] # (Auto) 0.8 Eos # (Auto) 0.3 Baso # (Auto) 0.0 Abs Immat Gran (auto) 0.06 H Absolute Neuts (auto) 7.9 Absolute Nucleated RBC 0.000 Nucleated RBC % (auto) 0.0 Smear Tech's Comments Hold Purple Top VBG pH VBG pCO2 VBG pO2 VBG HCO3 VBG O2 Saturation VBG Base Excess Sodium 139 Potassium 4.4 Chloride 103 Carbon Dioxide 27 Anion Gap 13 BUN 8 L Creatinine 0.84 Estim Creat Clear Calc 80.8 Estimated GFR > 60 POC Glucose 253 H 308 H Random Glucose 248 H Lactic Acid Lactic Acid F/U @ 2Hr Calcium 9.3 Magnesium Total Bilirubin Direct Bilirubin AST ALT Alkaline Phosphatase Total Protein Albumin Amylase Lipase Beta-Hydroxybutyrate Beta HCG, Quant Urine Color Urine Appearance Urine pH Ur Specific [place] Urine Protein Urine Glucose (UA) Urine Ketones Urine Blood Urine Nitrite Ur Leukocyte Esterase Urine RBC Urine WBC Ur Squamous Epith Cells Urine Bacteria Hyaline Casts Urine Opiates Screen Ur Buprenorphine Scrn Ur Oxycodone Screen Urine Methadone Screen Urine Fentanyl Screen Ur Barbiturates Screen Ur Phencyclidine Scrn Ur Amphetamines Screen U Benzodiazepines Scrn Urine Cocaine Screen U Marijuana (THC) Screen COVID-19 ([facility]) COVID-19 Clin Com Influenza Type A (PCR) Influenza Type B (PCR) RSV RNA Qual (PCR) SARS-CoV-2 RNA (RT-PCR) 09/24/24 13:48 WBC RBC Hgb Hct MCV MCH MCHC RDW Plt Count MPV Immature Gran % (Auto) Neut % (Auto) Lymph % (Auto) [facility] % (Auto) Eos % (Auto) Baso % (Auto) Lymph # (Auto) [facility] # (Auto) Eos # (Auto) Baso # (Auto) Abs Immat Gran (auto) Absolute Neuts (auto) Absolute Nucleated RBC Nucleated RBC % (auto) Smear Tech's Comments Hold Purple Top VBG pH VBG pCO2 VBG pO2 VBG HCO3 VBG O2 Saturation VBG Base Excess Sodium Potassium Chloride Carbon Dioxide Anion Gap BUN Creatinine Estim Creat Clear Calc Estimated GFR POC Glucose 181 H Random Glucose Lactic Acid Lactic Acid F/U @ 2Hr Calcium Magnesium Total Bilirubin Direct Bilirubin AST ALT Alkaline Phosphatase Total Protein Albumin Amylase Lipase Beta-Hydroxybutyrate Beta HCG, Quant Urine Color Urine Appearance Urine pH Ur Specific [place] Urine Protein Urine Glucose (UA) Urine Ketones Urine Blood Urine Nitrite Ur Leukocyte Esterase Urine RBC Urine WBC Ur Squamous Epith Cells Urine Bacteria Hyaline Casts Urine Opiates Screen Ur Buprenorphine Scrn Ur Oxycodone Screen Urine Methadone Screen Urine Fentanyl Screen Ur Barbiturates Screen Ur Phencyclidine Scrn Ur Amphetamines Screen U Benzodiazepines Scrn Urine Cocaine Screen U Marijuana (THC) Screen COVID-19 ([facility]) COVID-19 Clin Com Influenza Type A (PCR) Influenza Type B (PCR) RSV RNA Qual (PCR) SARS-CoV-2 RNA (RT-PCR) Airway Mallampati Class: II TM Dist: >3cm Neck ROM: Full Loose/Missing/Broken Teeth: Yes (1 broken tooth top right. Missing molars right and left bottom. Denies loose teeth) Heart: RRR Lungs: CTAB Assessment and Plan Assessment Anesthesia Assessment: Anesthesia Plan Discussed and Chart Reviewed Final Anesthetic Review Family History of Problems with Anesthesia: No History of Problems with Anesthesia: No NPO: Yes ASA Class: III and Emergency Final Preanesthetic Review: No Changes in Pt Med Stat, Meds/Allgs Chart Reviewed, Consent Obtained/Reviewed and Anes Risks/Benef Reviewed Patient Risk: Intermediate Procedure Risk: Low Assessment/Block/Sedation in SS: Assess/Block/Sedation-SS Anesthetic Plan Anesthetic Plan: TIVA Disposition: Standard PACU
--- NOTE | 2024-09-24 16:00 | P.OP_ITS ---
Operative Note Operative Note Date of Service: 09/24/24 Narrative: Procedure: Esophagogastroduodenoscopy Endoscopist: Kasia Fletcher MD Indication: Abd pain, N,V Anesthesia Provider: Yasemin Guillory MD Anesthesia Type: MAC ?? EGD Procedure:?? The procedure, indications, preparation and potential complications were reviewed with the patient, who indicated understanding and gave written informed consent to proceed. A physical exam was performed. The endoscope was introduced through the mouth, and advanced to the second part of duodenum. The mucosa was carefully examined on slow withdrawal of the endoscope. The patient tolerated the procedure well. There were no immediate complications.? ? EGD Findings:? * Esophagus:? Whitish plaques noted throughout the esophagus suspicious for helen esophagitis. The Z line was at 40 cm. Cold forceps biopsies were taken to r/o helen esophagitis. * Stomach:? Mild erythema in the cardia likely from retching and vomiting. Retroflexion performed in the cardia. Pyloric inlet appeared narrow. Scope could easily traverse through this. Cold forceps biopsies were taken from stomach for H Pylori. * Duodenum:? Normal mucosa was noted in the whole of the examined duodenum. Additional intervention: A through the scope pyloric balloon was inserted through the biopsy channel and advanced through the pyloric inlet. The pylorus was incrementally dilated from 15 to 16 mm. Significant resistance at 16 mm. On relook superficial heme and tear confirming successful dilation. ? EGD Impressions:? * Esophagitis r/o helen (biopsy) * Gastritis (biopsy) * Pyloric stenosis (dilation) * Normal duodenum ?? Recommendations:?? * Follow biopsy results. Our office will call or send a letter with results within 7-10 days. * Start fluconazole 400 mg once daily x 14 days * Can arrange for repeat dilation as outpatient for pyloric stenosis/pylorospasm * If no improvement in sx despite 2 dilations, may need dedicated evaluation at motility center with endoFLIP and if has low distensibility will benefit from repeat G-POEM. * Avoid NSAIDs. Above has been reviewed with the patient.
[2024-09-24 16:56] LABS: Glucose, Whole Blood 113 mg/dL (60-115)
[2024-09-24] MEDS: Fluconazole 100 MG TABLET 400 MG PO (18:56)
[2024-09-24 20:03] LABS: Glucose, Whole Blood 204 mg/dL (60-115)
[2024-09-24] MEDS: Simethicone 80 MG TAB.CHEW PO (20:05)
[2024-09-24] MEDS: risperiDONE 2 MG TABLET PO (20:05)
[2024-09-24] MEDS: Docusate Sodium 100 MG CAPSULE PO (20:05)
[2024-09-24] MEDS: lamoTRIgine 100 MG TABLET 200 MG PO (20:05)
[2024-09-24] MEDS: Zolpidem Tartrate 5 MG TABLET 10 MG PO (20:07)
[2024-09-24] MEDS: Sennosides 8.6 MG TABLET 17.2 MG PO (20:07)
[2024-09-25] MEDS: ondansetron HCL 4 MG/2 ML VIAL IVPUSH (01:20)
[2024-09-25] MEDS: HYDROmorphone HCl 0.5 MG/0.5 ML SYRINGE IVPUSH ×2 (01:20→05:21)
[2024-09-25 01:37] LABS: Appearance Urine Clear; Color Urine Yellow; Glucose Urine UA 250 mg/dL (Negative); Leukocyte Esterase Urine Moderate (2+) (Negative); Nitrite Urine Negative (Negative); PH 7.5 (5.0-9.0); Specific Gravity - Urine <= 1.005 (1.005-1.025); UMIC TRIGGER UA YES; Urine Blood Trace (Negative); Urine Ketones Negative (Negative); Urine Protein Negative (Neg-Trace)
[2024-09-25 01:40] LABS: Bacteria Urine None Seen (None Seen); Hyaline Casts Urine 0-2 /LPF (0-2)
[2024-09-25 03:42] VITALS: BP 109/57; PULSE 88; RESP 16; TEMP 36.3; O2SAT 95
[2024-09-25] MEDS: Omeprazole 20 MG CAPSULE.DR PO (05:21)
[2024-09-25] MEDS: Lactated Ringers 1,000 ML 100 ML IVCONT (05:27)
[2024-09-25 07:21] VITALS: BP 118/73; PULSE 91; RESP 14; TEMP 37.1; O2SAT 96
[2024-09-25 07:44] LABS: Glucose, Whole Blood 363 mg/dL (60-115)
--- NOTE | 2024-09-25 08:01 | PC.NURSE ---
BS 363 Dr. Whipple notified
[2024-09-25] MEDS: Insulin Lispro 100 UNIT/ML 3 ML VIAL SUBCUT ×2 (08:16→11:35)
[2024-09-25] MEDS: Insulin Glargine,Hum.rec.anlog 100 UNIT/ML 10 ML VIAL 15 UNIT SUBCUT (08:17)
[2024-09-25] MEDS: 0.9 % Sodium Chloride Flush 3 ML SYRINGE IVFLUSH (08:18)
[2024-09-25] MEDS: Metoprolol Tartrate 25 MG TABLET PO (08:19)
[2024-09-25] MEDS: Midodrine HCl 5 MG TABLET PO (08:19)
[2024-09-25] MEDS: Docusate Sodium 100 MG CAPSULE PO (08:19)
[2024-09-25] MEDS: Simethicone 80 MG TAB.CHEW PO (08:20)
[2024-09-25] MEDS: risperiDONE 2 MG TABLET PO (08:20)
[2024-09-25] MEDS: lamoTRIgine 100 MG TABLET 200 MG PO (08:20)
[2024-09-25] MEDS: Betamethasone Dip Aug 0.05% Cr 15 GM TUBE 1 APPL TOPICAL (08:21)
[2024-09-25] MEDS: Metoclopramide HCl 10 MG/2 ML VIAL IVPUSH (08:33)
[2024-09-25] MEDS: Enoxaparin Sodium 40 MG/0.4 ML SYRINGE SUBCUT (08:36)
--- NOTE | 2024-09-25 08:38 | HO.POSTANES ---
Post Anesthesia Evaluation Post Anesthesia Evaluation Date of Service: 09/25/24 Vital Signs: Vital Signs Temp Pulse Resp BP Pulse Ox O2 Del Method 09/25/24 07:21 98.7 F 91 14 118/73 96 Room Air 09/25/24 03:42 97.4 F 88 16 109/57 L 95 Room Air 09/24/24 21:00 97.9 F 80 18 120/68 97 Room Air Anesthesia: Monitored Mental Status: Awake Pain Control: Satisfactory Nausea/Vomiting: Mild Hydration: Adequate Anesthesia-Related Issues: No Anes. Related Issues
--- NOTE | 2024-09-25 10:52 | PM.DS ---
DS: Providers Provider Date of Service: 09/25/24 Date of admission: 09/17/24 23:01 Date of discharge: 09/25/24 Primary care physician: Yulisa Avila MD Consults: 09/23/24 09:37 Consult to Gastroenterology Routine Consulting Provider: Kasia Fletcher Reason for consultation: recurrent nausea, vomiting DS: Diagnosis Discharge Diagnosis (1) Intractable cyclical vomiting with nausea: Status: Acute (2) Acidosis, lactic: Status: Acute DS: Summary Hospital Course Hospital Course: History of presenting illness: Date of Service: 09/17/24 Attending physician on admission: Duke Marquez Chief Complaint: Persistent nausea and vomiting Patient is a 49 year old female with past medical history of type 1 diabetes mellitus (on insulin pump), diabetic gastroparesis, and 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 She unfortunately continues to smoke marijuana and she last smoked earlier today. She has been admitted many times in the past with similar complains. On arrival he was noted to be tachycardic with a heart rate of 139 beats per minute. He was also tachypneic with a respiratory rate of 25 breaths per minute. Initial lab work done in the emergency room was notable for a leukocytosis of 14.3 K, elevated serum lactic acid of 4.8, thrombocytosis with a platelet count of 625, anemia with a hemoglobin of 10.5 g/dl and hyperglycemia with a blood sugar of 296 mg/dl. She received IV Reglan, Hydromorphone and Zosyn (?) following which admission was requested. When I got to see her, she was still nauseated and still could not tolerate oral intake. Hospital course: 49 year old female with past medical history of type 1 diabetes mellitus (on insulin pump), diabetic gastroparesis, and cyclical vomiting presented with intractable abdominal pain and vomiting, noted to have acute lactic acidosis treated with IV fluids, lactic acidosis resolved ,had no sepsis ,due to persistent symptoms , underwent upper endoscopy by Dr. Fletcher on September 24, that showed esophagitis, with whitish plaques suspicious for Laureen esophagitis, gastritis, pyloric stenosis underwent dilatation, and started on Diflucan 400 mg daily for total 14 days, patient nausea ,vomiting improved, therefore being discharged home with recommendation to continue PPI, finished course of Diflucan , avoid NSAIDs and follow-up with Gastroenterology with recurrent symptoms. Acute hypokalemia and acute hypocalcemia repleted and normalized Hyperglycemia in type 1 Diabetes recommend to resume insulin pump and if it is nonfunctioning patient is recommended to use Lantus and SSI Mood disorder continue Risperidone and LAmotrigine Time Attestation Discharge Coordination Time (in mins): 40 Quality: Safe Use of Opioids Does Pt have an Active Cancer Diagnosis on the Problem List?: No Quality: Stroke Does the patient have a stroke diagnosis?: No Physical Exam Vital Signs: Vital Signs: Last Vital Signs Temp 98.7 F 09/25/24 07:21 Pulse 91 09/25/24 07:21 Resp 14 09/25/24 07:21 BP 118/73 09/25/24 07:21 Pulse Ox 96 09/25/24 07:21 O2 Del Method Room Air 09/25/24 07:21 O2 Flow Rate 99 09/18/24 14:38 BMI result Body Mass Index 24.3 Const: Other: Constitutional : Awake, interactive, in no acute distress Neck : Supple, no JVD Cardiovascular : RRR, Respiratory : good bilateral air entry, no crackles, wheezes or rhonchi Gastrointestinal: soft, Normal bowel sounds, nontender Skin : Warm, Dry extremities no edema Neurological : Alert & oriented x3, No focal deficit DS: Data Data Completed and Pending Pending studies at discharge: Pending at discharge 09/24/24 15:51 Surgical [PTH] Routine Labs on day of discharge: Laboratory Results - last 24 hr 09/24/24 09/24/24 09/24/24 10:46 13:48 16:48 POC Glucose 308 H 181 H 113 Urine Color Urine Appearance Urine pH Ur Specific [place] Urine Protein Urine Glucose (UA) Urine Ketones Urine Blood Urine Nitrite Ur Leukocyte Esterase Urine RBC Urine WBC Ur Squamous Epith Cells Urine Bacteria Hyaline Casts 09/24/24 09/25/24 09/25/24 20:00 01:26 07:24 POC Glucose 204 H 363 H* Urine Color Yellow Urine Appearance Clear Urine pH 7.5 Ur Specific [place] <= 1.005 Urine Protein Negative Urine Glucose (UA) 250 H Urine Ketones Negative Urine Blood Trace H Urine Nitrite Negative Ur Leukocyte Esterase Moderate (2+) H Urine RBC 6-10 H Urine WBC 11-20 H Ur Squamous Epith Cells 3-5 Urine Bacteria None Seen Hyaline Casts 0-2 Discharge Plan Discharge Anticipated Discharge Date/Time: 09/25/24 10:41 Patient Disposition: Home, Self-Care Discharge Diagnosis: Esophagitis rule out Laureen Pyloric stenosis status post dilatation Gastritis Acute hypokalemia Acute lactic acidosis Hyperglycemia due to type 1 diabetes mellitus Referrals: Yulisa Dyson MD [Primary Care Provider] - 1 Week Discharge Medications: New fluconazole [Diflucan] 200 mg tablet 400 mg PO DAILY Qty: 24 0RF Rx Instructions: for 12 days Continued metoprolol tartrate 25 mg tablet 25 mg PO BID Qty: 180 1RF midodrine 5 mg tablet 5 mg PO DAILY Qty: 90 2RF lorazepam 1 mg Tablet 1 mg PO TID PRN (Reason: Anxiety) lamotrigine 200 mg Tablet 200 mg PO BID zolpidem 10 mg Tablet 10 mg PO BEDTIME risperidone 2 mg tablet 2 mg PO BID insulin aspart U-100 [Novolog U-100 Insulin aspart] 100 unit/mL solution 0 - 100 unit subcut DAILY sennosides [senna] 8.6 mg tablet 8.6 mg PO BID PRN (Reason: constipation) docusate sodium 100 mg capsule 100 mg PO BID simethicone 80 mg tablet,chewable 80 mg PO TID PRN (Reason: gas) insulin glargine [Lantus Solostar U-100 Insulin] 100 unit/mL (3 mL) insulin pen See Rx Instructions .ROUTE .COMPLEX PRN (Reason: pump not working) Rx Instructions: Patient only utilizes when pump is not working. Glucagon Emergency Kit (human) 1 mg recon soln 1 mg IM Q15M PRN (Reason: Hypoglycemia) (DME) subcutaneous insulin pump Misc MISCELLANEOUS Rx Instructions: Uses Novolog 0-100 units with pump pantoprazole 40 mg tablet,delayed release (DR/EC) 40 mg PO BID Discharge Orders: Discharge Order (Routine); Ordered 09/25/24 Ordered By: Asuncion Whipple Diet: Diabetic diet Activity on Discharge: As tolerated Stand Alone Forms: Patient Portal Discharge page Print Language: Croatian Care Plan Goals: Esophagitis, likely candidiasis take Diflucan 400 mg 1 tablet daily Avoid NSAIDs like no Advil/ Motrin or similar drugs Pylorus stenosis status post dilatation Health Concerns: Diabetes mellitus continue home medication Plan of Treatment: Outpatient follow-up with primary care physician Outpatient follow-up with inspection supervisor Dr. Fletcher if noted to have recurrent abdominal pain, nausea vomiting, call for appointment GI office will call or send a letter with results of esophageal biopsy within 7-10 days Assessment: As above
--- NOTE | 2024-09-25 11:09 | MHC.CM.PN ---
PT TO [facility] HOME TODAY WITH NO SERVICES VIA PRIVATE TRANSPORT
[2024-09-25 11:16] LABS: Glucose, Whole Blood 222 mg/dL (60-115)
== END 2024-09-25 14:00 | disposition home or self-care (01) | DRG 74 ==
LOC: HO.ED 18:44 → HO.EDOVER 09-18 07:07 → HO.IMC 09-18 15:24 → HO.S3 09-24 19:36
PROVIDERS: Internal Medicine; Physician Assistant; Student in an Organized Health Care Education/Training Program; Admitting Provider Internal Medicine; Emergency Provider Emergency Medicine; PCP Internal Medicine; Visit Provider Hospitalist
PROC: 0DJ08ZZ Inspection of Upper Intestinal Tract, Via Natural or Artificial Opening Endoscopic (ICD-10-PCS; CPT 43235; principal; 2024-09-24 15:00)
DX: E10.43 Type 1 diabetes mellitus with diabetic autonomic (poly)neuropathy (principal); E87.21 Acute metabolic acidosis; R65.10 Systemic inflammatory response syndrome (SIRS) of non-infectious origin without acute organ dysfunction; B37.81 Candidal esophagitis; K31.1 Adult hypertrophic pyloric stenosis; E83.51 Hypocalcemia; K29.70 Gastritis, unspecified, without bleeding; F41.9 Anxiety disorder, unspecified; E10.65 Type 1 diabetes mellitus with hyperglycemia; D64.9 Anemia, unspecified; E87.6 Hypokalemia; K31.84 Gastroparesis; Z20.822 Contact with and (suspected) exposure to COVID-19; Z96.41 Presence of insulin pump (external) (internal); Z87.891 Personal history of nicotine dependence; Z79.899 Other long term (current) drug therapy
CPT/HCPCS: 0241U; 36415; 80048; 80053; 80076; 80307; 81001; 82010; 82150; 82803; 82947; 83605; 83690; 83735; 84702; 85025; 87040; 87635; 88305; 88312; 88342; 93005; 99285; C1726; J0613; J1171; J1200; J1642; J1650; J2003; J2060; J2371; J2405; J2543; J2704; J2765; J3475; J3480; J7120

== ENCOUNTER → 2024-09-17 17:01 | Outpatient (BNV) | payer OTHER, SELFPAY | PROVIDERS: Admitting Provider Internal Medicine; Emergency Provider Emergency Medicine; PCP Internal Medicine; Visit Provider Internal Medicine Cardiovascular Disease | DX: R00.0 Tachycardia, unspecified (principal) | CPT/HCPCS: 93010 ==

== ENCOUNTER → 2024-09-17 23:01 | Outpatient (BNV) | payer OTHER, SELFPAY | PROVIDERS: Admitting Provider Internal Medicine; Emergency Provider Emergency Medicine; PCP Internal Medicine; Visit Provider Internal Medicine | DX: R10.9 Unspecified abdominal pain (principal); R11.2 Nausea with vomiting, unspecified; E10.43 Type 1 diabetes mellitus with diabetic autonomic (poly)neuropathy; K31.84 Gastroparesis | CPT/HCPCS: 99222 ==

== ENCOUNTER → 2024-09-17 23:01 | Outpatient (BNV) | payer OTHER, SELFPAY | PROVIDERS: Admitting Provider Internal Medicine; Emergency Provider Emergency Medicine; Visit Provider Internal Medicine | DX: R11.15 Cyclical vomiting syndrome unrelated to migraine (principal); E87.20 Acidosis, unspecified | CPT/HCPCS: 99223; 99232 ==

== ENCOUNTER 2024-11-04 05:06 | Inpatient (IN) | payer OTHER, SELFPAY ==
[2024-11-04] VITALS (9 sets, daily range): BP systolic 99–169; BP diastolic 47–92; PULSE 99–133; RESP 16–20; TEMP 36.8–37.7; O2SAT 95–100; BMI 26.1
--- NOTE | 2024-11-04 | ECG_ITS ---
Test Reason : CP Blood Pressure : */* mmHG Vent. Rate : 129 BPM Atrial Rate : 129 BPM P-R Int : 138 ms QRS Dur : 82 ms QT Int : 394 ms P-R-T Axes : 69 73 56 degrees QTcB Int : 577 ms Sinus tachycardia Otherwise normal ECG When compared with ECG of 17-Sep-2024 17:04, No significant change was found Referred By: Generic ED Physician Electronically Signed By: NADEEN MCKEON
--- NOTE | ~2024-11-04 | XR_ITS ---
CLINICAL HISTORY: cp 1 view chest x-ray. Comparison: CR/SR - XR CHEST 1V - 07/23/24 12:15 EST Findings: The lungs are adequately expanded. No focal consolidation. No effusion or pneumothorax. Cardiac and mediastinal contours are within normal limits. No acute osseous abnormality. Right-sided chest port noted well-positioned. Impression: No acute process. This document has been electronically signed by: Bharat Webster MD on 11/04/2024 06:15:13
[2024-11-04 05:46] LABS: MANUAL DIFF FLAG NO
[2024-11-04 05:47] LABS: Basophils Absolute Auto 0.1 X10*3/uL (0.0-0.2); Basophils Percent Auto 0.6 % (0-2); Hematocrit 30.4 % (37.0-47.0); Hemoglobin 9.8 g/dl (12.0-16.0); Imm Gran Abs Auto 0.08 X10*3/uL (0.00-0.03); Imm Gran Pct Auto 0.6 % (0.0-0.4); Lymphocytes Absolute Auto 1.5 X10*3/uL (1.2-4.9); Lymphocytes Percent Auto 11.7 % (20-40); Mean Corpuscular HGB Conc 32.2 g/dl (31.0-35.0); Mean Corpuscular Hemoglobin 25.9 pg (27.0-33.0); Mean Corpuscular Volume 80.2 fL (80.0-98.0); Mean Platelet Volume 8.6 fL (9.4-12.3); Monocytes Absolute Auto 0.2 X10*3/uL (0.1-1.2); Monocytes Percent Auto 1.3 % (2-11); Neutrophils Absolute Auto 10.7 x10*3/uL (2.0-8.3); Neutrophils Percent Auto 85.8 % (45-73); Platelet Count 564 X10*3/uL (160-400); Red Blood Count 3.79 X10*6/uL (4.20-5.50); Red Cell Distribution Width 16.6 % (11.0-16.0); White Blood Count 12.4 X10*3/uL (4.8-10.8)
[2024-11-04 06:01] LABS: Alanine Aminotransferase 11 U/L (0-31); Albumin Level 4.5 g/dL (3.5-5.0); Alkaline Phosphatase 132 U/L (39-117); Anion Gap 19 (12-20); Aspartate Amino Transferase 15 U/L (5-31); Bilirubin Total 0.2 mg/dL (0.0-1.0); Blood Urea Nitrogen 15 mg/dL (9-16); Calcium 9.4 mg/dL (8.4-10.2); Carbon Dioxide 23 mmol/L (22-29); Chloride 98 mmol/L (96-108); Creatinine Clr Calc Pharmacy 72.3; Estimated Glomerular Filt Rate > 60; Glucose Random 306 mg/dL (60-115); Potassium 3.8 mmol/L (3.3-5.1); Sodium 136 mmol/L (135-145); Total Protein 8.2 g/dL (6.5-8.0)
[2024-11-04 06:09] LABS: Troponin-I High Sensitivity < 2.7 ng/L (<3.5-17.0)
[2024-11-04 06:22] LABS: Influenza A PCR NEGATIVE (Negative); Influenza B PCR NEGATIVE (Negative); Resp Syncy Virus RNA Qual PCR NEGATIVE (Negative); SARS COV2 PCR INHOUSE NEGATIVE (Negative)
--- NOTE | 2024-11-04 06:56 | ED_ITS ---
HPI - General Adult General Chief complaint: Nausea/Vomiting/Diarrhea Stated complaint: NAUSEA/VOMITTING Time Seen by Provider: 11/04/24 06:56 History of Present Illness ED Provider: Jessie ALBA narrative: The patient is a 49-year-old female with a history of type 1 diabetes. She also has a history of multiple hospitalizations for problems related to intractable vomiting. She has a Port-A-Cath. She uses an insulin pump. She says that she has been having nausea and vomiting and upper abdominal pain for 1-2 days. This morning she felt very weak and called an ambulance and came to the hospital. No definite fever. The patient says that her symptoms today are similar to symptoms she has had with previous ER presentations. She was hospitalized once in July of this year in and once in September of this year for similar symptoms. Related Data Home Medications ?Medication ?Instructions ?Recorded ?Confirmed lamotrigine 200 mg tablet 200 mg PO BID 05/11/20 09/17/24 lorazepam 1 mg tablet 1 mg PO TID PRN Anxiety 05/11/20 09/17/24 zolpidem 10 mg tablet 10 mg PO BEDTIME 05/11/20 09/17/24 risperidone 2 mg tablet 2 mg PO BID 09/13/21 09/17/24 insulin aspart U-100 100 unit/mL 0 - 100 unit subcut DAILY 07/23/24 09/17/24 subcutaneous solution (Novolog U-100 Insulin aspart) docusate sodium 100 mg capsule 100 mg PO BID 09/17/24 09/17/24 glucagon 1 mg solution for 1 mg IM Q15M PRN Hypoglycemia 09/17/24 09/17/24 injection (Glucagon Emergency Kit) insulin glargine 100 unit/mL (3 See Rx Instructions .Route 09/17/24 09/18/24 mL) subcutaneous pen (Lantus .COMPLEX PRN pump not working Solostar U-100 Insulin) sennosides 8.6 mg tablet (senna) 8.6 mg PO BID PRN constipation 09/17/24 09/17/24 simethicone 80 mg chewable tablet 80 mg PO TID PRN gas 09/17/24 09/17/24 subcutaneous insulin pump 09/17/24 09/17/24 pantoprazole 40 mg tablet,delayed 40 mg PO BID 09/18/24 09/18/24 release Previous Rx's ?Medication ?Instructions ?Recorded midodrine 5 mg tablet 5 mg PO DAILY #90 tabs 07/09/24 fluconazole 200 mg tablet 400 mg (2 x 200 mg) PO DAILY #24 09/25/24 (Diflucan) tabs metoprolol tartrate 25 mg tablet 25 mg PO BID #180 tabs 10/18/24 Allergies Allergy/AdvReac Type Severity Reaction Status Date / Time morphine [MORPHINE] Allergy Intermediate RASH, Verified 11/04/24 05:45 hives, hives mushroom Allergy Intermediate HIVES/RASH Verified 11/04/24 05:45 Sulfa (Sulfonamide Allergy Mild Rash Verified 11/04/24 05:45 Antibiotics) mushroom Allergy Unknown throat Uncoded 11/04/24 05:45 closes up/difficult breathing mushrooms Allergy Unknown anaphylaxis Uncoded 11/04/24 05:45 Review of Systems 2 Review of Systems: Yes all other systems are reviewed and are negative PMFSH Past Medical History Medical History Intractable cyclical vomiting with nausea Intractable nausea and vomiting Diabetic gastroparesis Acute UTI Diabetes mellitus type 1 Chronic hypertension Diabetes mellitus with gastroparesis Diabetic gastroparesis Herpes zoster Status post fall Recurrent UTI NSTEMI (non-ST elevated myocardial infarction) Diabetic gastroparesis Anxiety Bipolar 1 disorder Pancreatitis Gastroparesis Diabetes Surgical History History of cholecystectomy History of tonsillectomy History of ERCP H/O pyloroplasty History of appendectomy H/O: hysterectomy Social History Social History Household Members: Spouse Housing: House Housing Other:: mobile home Do you presently have visiting nurse or other home services: No Unable to assess alcohol history related to: Refusing to respond Alcohol intake: never Comment: pt refused bed alarm Patient Tobacco Use Status: Former Tobacco user Tobacco use type: Cigarette Smoked in Last 30 Days: No e-Cigarette/Vaping Use: Former Use Second Hand Smoke Exposure: No Use of substances other than those prescribed or required for medical reasons: No Substance Use Type: Marijuana Advance Directives: Yes Advance Directives on File: Yes Advance Directives Date on File: 12/03/22 Do you have a plan to hurt others: No Plan service: No Current occupational status: disabled Cognitive needs: No Hearing needs: No Vision needs: No Physical Exam ED Vital Signs: Vital Signs - 24 hr 11/04/24 05:19 11/04/24 10:07 11/04/24 12:00 Temperature 98.2 F Pulse Rate 133 H 121 H 113 H Pulse Rate [Monitor] Respiratory Rate 20 16 18 Blood Pressure 155/78 H 164/77 H Pulse Oximetry 100 98 Oxygen Delivery Method Room Air Room Air Room Air 11/04/24 13:27 11/04/24 13:27 Temperature 100 F Pulse Rate 120 H Pulse Rate [Monitor] 114 H Respiratory Rate 16 Blood Pressure 144/68 H Pulse Oximetry 95 Oxygen Delivery Method Room Air BMI result Body Mass Index 26.1 Const Other: The patient is a chronically ill-appearing 49-year-old woman who looks somewhat tachypneic. She looks uncomfortable and somewhat acutely ill. HENMT Other: Face is symmetrical, mucous membranes not obviously dry Eyes General: appearance normal, both eyes and all related structures Neck Neck: Yes normal visual inspection and Yes no JVD Resp Other: The patient was tachypneic. No increased work of breathing. Lungs are clear bilaterally. Cardio Rate: tachycardic Rhythm: regular rhythm Heart sounds: S1 normal heart sound present and S2 normal heart sound present GI Other: The abdomen is soft. She reports diffuse abdominal tenderness. Skin Other: Skin is pale and dry Neuro Other: The patient was sleeping but aroused easily to verbal stimuli. She seemed reasonably coherent. Face was symmetrical, speech was clear, symmetrical tone in the extremities. Extrem Other: No peripheral edema Medications Administered Discontinued Medications Generic Name Dose Route Start Last Admin Trade Name Nanci PRN Reason Stop Dose Admin Diphenhydramine HCl 25 mg 11/04/24 07:06 11/04/24 07:19 Diphenhydramine Hcl 50 Mg/Ml Vial IVPUSH 11/04/24 07:07 25 mg ONCE ONE Administration Diphenhydramine HCl 12.5 mg 11/04/24 13:05 11/04/24 13:24 Diphenhydramine Hcl 50 Mg/Ml Vial IVPUSH 11/04/24 13:06 12.5 mg ONCE ONE Administration Haloperidol Lactate 2.5 mg 11/04/24 13:05 11/04/24 13:23 Haloperidol Lactate 5 Mg/Ml Vial IM 11/04/24 13:06 2.5 mg ONCE ONE Administration Hydromorphone HCl 0.5 mg 11/04/24 07:21 11/04/24 07:26 Hydromorphone Hcl 0.5 Mg/0.5 Ml Syringe IVPUSH 11/04/24 07:22 0.5 mg ONCE ONE Administration Protocol Hydromorphone HCl 0.5 mg 11/04/24 13:05 11/04/24 13:24 Hydromorphone Hcl 0.5 Mg/0.5 Ml Syringe IVPUSH 11/04/24 13:06 0.5 mg ONCE ONE Administration Protocol Lactated Ringer's 1,000 mls @ 999 mls/hr 11/04/24 07:15 11/04/24 09:14 Lr IV 11/04/24 08:15 Infused .Q1H1M RAISA Infusion Lactated Ringer's 1,000 mls @ 999 mls/hr 11/04/24 09:00 11/04/24 10:09 Lr IV 11/04/24 10:00 Infused .Q1H1M RAISA Infusion Lactated Ringer's 1,000 mls @ 999 mls/hr 11/04/24 10:15 11/04/24 10:12 Lr IV 11/04/24 11:15 999 mls/hr .Q1H1M RAISA Administration Metoclopramide HCl 10 mg 11/04/24 07:06 11/04/24 07:19 Metoclopramide Hcl 10 Mg/2 Ml Vial IVPUSH 11/04/24 07:07 10 mg ONCE ONE Administration Medical Decision Making Medical Decision Making [facility] Narrative: The patient is a 49-year-old female with a history of type 1 diabetes who also reports a history of gastroparesis. She presents with 2-3 days of worsening abdominal pain, nausea, vomiting. The patient had labs that did not indicate the presence of diabetic ketoacidosis. He has an insulin pump. Additionally her inflammatory markers are unremarkable and I think an acute infectious process is unlikely. She was tachycardic and said that she has been unable to tolerate oral intake for 2 days. Her renal function is not significantly compromised. The patient was treated symptomatically with metoclopramide and diphenhydramine and IV fluids. She requested pain medication and was given hydromorphone. She was initially tachycardic with a heart rate in the 130s. This came down to 111. She was able to ambulate and I thought she looked better but she insisted that she was still feeling very bad and could not possibly contemplate taking oral intake. She said she was still having significant ongoing pain and nausea. The patient will be admitted to the hospitalist service for further care. Lab Data 11/04/24 05:41 11/04/24 05:41 Labs: Lab Results 11/04/24 11/04/24 Range/Units 05:41 09:45 WBC 12.4 H (4.8-10.8) X10*3/uL RBC 3.79 L (4.20-5.50) X10*6/uL Hgb 9.8 L (12.0-16.0) g/dl Hct 30.4 L (37.0-47.0) % MCV 80.2 (80.0-98.0) fL MCH 25.9 L (27.0-33.0) pg MCHC 32.2 (31.0-35.0) g/dl RDW 16.6 H (11.0-16.0) % Plt Count 564 H (160-400) X10*3/uL MPV 8.6 L (9.4-12.3) fL Immature Gran % (Auto) 0.6 H (0.0-0.4) % Neut % (Auto) 85.8 H (45-73) % Lymph % (Auto) 11.7 L (20-40) % [place] % (Auto) 1.3 L (2-11) % Eos % (Auto) 0.0 (0-4) % Baso % (Auto) 0.6 (0-2) % Lymph # (Auto) 1.5 (1.2-4.9) X10*3/uL [place] # (Auto) 0.2 (0.1-1.2) X10*3/uL Eos # (Auto) 0.0 (0.0-0.4) X10*3/uL Baso # (Auto) 0.1 (0.0-0.2) X10*3/uL Abs Immat Gran (auto) 0.08 H (0.00-0.03) X10*3/uL Absolute Neuts (auto) 10.7 H (2.0-8.3) x10*3/uL Absolute Nucleated RBC 0.000 (0.0-0.012) X10*3/uL Nucleated RBC % (auto) 0.0 (0.0-0.2) /100WBC Sodium 136 (135-145) mmol/L Potassium 3.8 (3.3-5.1) mmol/L Chloride 98 (96-108) mmol/L Carbon Dioxide 23 (22-29) mmol/L Anion Gap 19 (12-20) BUN 15 (9-16) mg/dL Creatinine 0.96 (0.5-1.4) mg/dL Estim Creat Clear Calc 72.3 Estimated GFR > 60 Random Glucose 306 H (60-115) mg/dL Calcium 9.4 (8.4-10.2) mg/dL Magnesium 1.6 (1.6-2.6) mg/dL Total Bilirubin 0.2 (0.0-1.0) mg/dL AST 15 (5-31) U/L ALT 11 (0-31) U/L Alkaline Phosphatase 132 H (39-117) U/L Troponin I High Sens < 2.7 D (<3.5-17.0) ng/L C-Reactive Protein < 0.10 (< or = 0.50) mg/dL Total Protein 8.2 H (6.5-8.0) g/dL Albumin 4.5 (3.5-5.0) g/dL Urine Color Yellow Urine Appearance Clear Urine pH 7.5 (5.0-9.0) Ur Specific [place] 1.015 (1.005-1.025) Urine Protein 100 (2+) H (Neg-Trace) mg/dL Urine Glucose (UA) >=1000 H (Negative) mg/dL Urine Ketones 15 (Negative) mg/dL Urine Blood Small (1+) H (Negative) Urine Nitrite Negative (Negative) Ur Leukocyte Esterase Negative (Negative) Urine RBC 11-20 H (0-2) /HPF Urine WBC 0-5 (0-5) /HPF Ur Squamous Epith Cells 0-2 (0-2) /HPF Urine Bacteria None Seen (None Seen) Hyaline Casts 0-2 (0-2) /LPF Urine Opiates Screen Not Detected (Not Detect) Ur Buprenorphine Scrn Not Detected (Not Detect) ng/mL Ur Oxycodone Screen Not Detected (Not Detect) ng/mL Urine Methadone Screen Not Detected (Not Detect) ng/mL Urine Fentanyl Screen Not Detected (Not Detect) Ur Barbiturates Screen Not Detected (Not Detect) Ur Phencyclidine Scrn Not Detected (Not Detect) Ur Amphetamines Screen Not Detected (Not Detect) U Benzodiazepines Scrn Not Detected (Not Detect) Urine Cocaine Screen Not Detected (Not Detect) U Marijuana (THC) Screen POSITIVE H (Not Detect) Influenza Type A (PCR) NEGATIVE (Negative) Influenza Type B (PCR) NEGATIVE (Negative) RSV RNA Qual (PCR) NEGATIVE (Negative) SARS-CoV-2 RNA (RT-PCR) NEGATIVE (Negative) Independent Interpretation I performed an independent interpretation of an: EKG Interpretation: EKG at 05:15 shows sinus tachycardia at 129 beats per minute. There is an old right bundle branch block. QTC is 577. No significant change from previous EKG. Discharge Plan Discharge Clinical Impression: Nausea and vomiting, Abdominal pain, Type 1 diabetes Patient Disposition: Admitted As Inpatient Print Language: Khmer
[2024-11-04] MEDS: Lactated Ringers 1,000 ML 999 ML IV ×3 (07:18→10:12)
[2024-11-04] MEDS: diphenhydrAMINE HCL 50 MG/ML VIAL 25 MG IVPUSH (07:19)
[2024-11-04] MEDS: Metoclopramide HCl 10 MG/2 ML VIAL IVPUSH (07:19)
[2024-11-04] MEDS: HYDROmorphone HCl 0.5 MG/0.5 ML SYRINGE IVPUSH ×2 (07:26→13:24)
[2024-11-04 07:27] LABS: C Reactive Protein < 0.10 mg/dL (< or = 0.50); Magnesium 1.6 mg/dL (1.6-2.6)
[2024-11-04 09:56] LABS: Appearance Urine Clear; Color Urine Yellow; Glucose Urine UA >=1000 mg/dL (Negative); Leukocyte Esterase Urine Negative (Negative); Nitrite Urine Negative (Negative); PH 7.5 (5.0-9.0); Specific Gravity - Urine 1.015 (1.005-1.025); UMIC TRIGGER UACC YES; Urine Blood Small (1+) (Negative); Urine Ketones 15 mg/dL (Negative); Urine Protein 100 (2+) mg/dL (Neg-Trace)
[2024-11-04 10:05] LABS: Bacteria Urine None Seen (None Seen); Hyaline Casts Urine 0-2 /LPF (0-2); Squamous Epithelial Cell Urine 0-2 /HPF (0-2); WBC Urine 0-5 /HPF (0-5)
[2024-11-04 10:07] LABS: Amphetamine Screen Urine Not Detected (Not Detect); Barbiturates, Urine Not Detected (Not Detect); Benzodiazepines Screen Urine Not Detected (Not Detect); Buprenorphine Scr Not Detected (Not Detect); Cannabinoid Screen Urine POSITIVE (Not Detect); Cocaine Screen Urine Not Detected (Not Detect); Fentanyl, urine Not Detected (Not Detect); Methadone Screen, Urine Not Detected (Not Detect); Opiate Screen Urine Not Detected (Not Detect); Oxycodone Screen Urine Not Detected (Not Detect); Phencyclidine Screen Urine Not Detected (Not Detect)
[2024-11-04] MEDS: Haloperidol Lactate 5 MG/ML VIAL 2.5 MG IM (13:23)
[2024-11-04] MEDS: diphenhydrAMINE HCL 50 MG/ML VIAL 12.5 MG IVPUSH (13:24)
--- NOTE | 2024-11-04 13:34 | PC.NURSE ---
Patient alert and oriented. Well known to this facility. History of gastroparesis and cyclical vomiting syndrome. set up / operator maintained and stach noted 100's to 120's. Lungs clear bilat. Respirations even and non-labored. Abdomen soft with positive bowel sounds. c/o epigastric pain with some tenderness noted. medicated as ordered. Positive pedal pulses with no edema noted. Pending disposition.
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
[2024-11-04] MEDS: Lactated Ringers 1,000 ML 100 ML IVCONT (16:17)
[2024-11-04] MEDS: Enoxaparin Sodium 40 MG/0.4 ML SYRINGE SUBCUT (16:19)
--- NOTE | 2024-11-04 16:52 | PHA.MEDREC ---
Addendum entered by Adryan Dhaliwal RPh 11/04/24 17:42: Reviewed by [facility]. Original Note: Pharmacy Consult ? Medication Reconciliation Pharmacy has completed the medication reconciliation. Spoke to patient to confirm med list. Patient states she is no longer Taking Senna 8.6 mg and Simethicone 80 mg. Patient confirmed she has a Tandem insulin pump and uses Novolog U -100 infuses 0-100 units daily per sugar readings. Patients states she uses Lantus only when her pump is not working. Patient confirmed she is taking Pantoprazole 40 mg , last filled 08/25/24 for 30 days Not Omeprazole 20 mg, last filled 09/08/24 .
[2024-11-04] MEDS: Metoclopramide HCl 10 MG/2 ML VIAL 5 MG IVPUSH (17:26)
[2024-11-04] MEDS: HYDROmorphone HCl 1 MG/ML SYRINGE 0.5 MG IVPUSH ×2 (17:27→21:22)
[2024-11-04 17:36] LABS: Glucose, Whole Blood 170 mg/dL (60-115)
[2024-11-04 20:30] LABS: Glucose, Whole Blood 247 mg/dL (60-115)
[2024-11-04] MEDS: lamoTRIgine 100 MG TABLET 200 MG PO (21:04)
[2024-11-04] MEDS: risperiDONE 2 MG TABLET PO (21:04)
[2024-11-04] MEDS: Metoprolol Tartrate 25 MG TABLET PO (21:05)
[2024-11-04] MEDS: Zolpidem Tartrate 5 MG TABLET 10 MG PO (21:05)
[2024-11-04] MEDS: Docusate Sodium 100 MG CAPSULE PO (21:06)
[2024-11-04] MEDS: Insulin Glargine,Hum.rec.anlog 100 UNIT/ML 10 ML VIAL 25 UNIT SUBCUT (21:17)
[2024-11-04] MEDS: Insulin Lispro 100 UNIT/ML 3 ML VIAL SUBCUT (21:18)
[2024-11-04] MEDS: ondansetron HCL 4 MG/2 ML VIAL IVPUSH (21:19)
[2024-11-05] VITALS (8 sets, daily range): BP systolic 86–119; BP diastolic 54–76; PULSE 79–97; RESP 16–20; TEMP 36–36.6; O2SAT 94–100
[2024-11-05] MEDS: HYDROmorphone HCl 1 MG/ML SYRINGE 0.5 MG IVPUSH ×5 (03:01→22:04)
[2024-11-05] MEDS: Metoclopramide HCl 10 MG/2 ML VIAL 5 MG IVPUSH (03:04)
[2024-11-05] MEDS: Lactated Ringers 1,000 ML 100 ML IVCONT (03:09)
[2024-11-05] MEDS: ondansetron HCL 4 MG/2 ML VIAL IVPUSH (06:04)
[2024-11-05 07:26] LABS: Alanine Aminotransferase < 6 U/L (0-31); Albumin Level 3.7 g/dL (3.5-5.0); Alkaline Phosphatase 104 U/L (39-117); Anion Gap 12 (12-20); Aspartate Amino Transferase 14 U/L (5-31); Bilirubin Total 0.4 mg/dL (0.0-1.0); Blood Urea Nitrogen 18 mg/dL (9-16); Carbon Dioxide 28 mmol/L (22-29); Chloride 99 mmol/L (96-108); Creatinine Clr Calc Pharmacy 83.6; Estimated Glomerular Filt Rate > 60; Glucose Random 272 mg/dL (60-115); Potassium 3.7 mmol/L (3.3-5.1); Sodium 135 mmol/L (135-145); Total Protein 6.6 g/dL (6.5-8.0)
[2024-11-05 07:40] LABS: Glucose, Whole Blood 287 mg/dL (60-115)
[2024-11-05] MEDS: Insulin Lispro 100 UNIT/ML 3 ML VIAL SUBCUT ×4 (07:58→22:01)
[2024-11-05] MEDS: Midodrine HCl 5 MG TABLET PO (07:59)
[2024-11-05] MEDS: Docusate Sodium 100 MG CAPSULE PO ×2 (07:59→21:58)
[2024-11-05] MEDS: lamoTRIgine 100 MG TABLET 200 MG PO ×2 (07:59→21:58)
[2024-11-05] MEDS: risperiDONE 2 MG TABLET PO ×2 (07:59→21:58)
[2024-11-05] MEDS: LORazepam 1 MG TABLET PO (08:00)
[2024-11-05] MEDS: Metoprolol Tartrate 25 MG TABLET PO ×2 (08:01→21:58)
--- NOTE | 2024-11-05 09:52 | HO.PM.IMPN ---
Subjective Subjective Date of Service: 11/05/24 Interval History: Seen and evaluated reporting nausea and abdominal pain had vomiting episodes no other events Review of Systems Review of Systems: Yes all other systems are reviewed and are negative Physical Exam Vital Signs: Vital Signs: Last Vital Signs Temp 97.7 F 11/05/24 07:41 Pulse 84 11/05/24 07:41 Resp 18 11/05/24 07:41 BP 104/58 L 11/05/24 07:41 Pulse Ox 94 11/05/24 07:41 O2 Del Method Room Air 11/05/24 07:41 BMI result Body Mass Index 26.1 Const: Other: Constitutional: Alert, in no distress, overweight. Mental Status: Oriented to person, place and time. Eyes: Pupils are equal, round and reactive to light. Ear, Nose and Throat: Oropharynx clear, mucous membranes moist. Ears and nose without eformities. Trachea midline. Respiratory: Clear to auscultation. No wheezing, rales or rhonchi. Cardiovascular: S1 S2 regular. No murmurs, rubs or gallops. Gastrointestinal: Abdomen soft, non-distended. Normal bowel sounds.?generalized mild tenderness with no surgical signs Neurologic: Cranial nerves II-XII grossly intact. No focal neurological deficits. Moves all extremities spontaneously.? Skin: No rashes or lesions.? Objective Data Active Medications Acetaminophen (Acetaminophen 325 Mg Tablet) 650 mg PO Q6H PRN PRN Reason: Pain, Mild 1-3,fever,headache Calcium Carbonate (Calcium Carbonate 750 Mg Tab.Chew) 750 mg PO Q4H PRN PRN Reason: Heartburn Dextrose (Dextrose 50 % 25 Gm/50 Ml Syringe) 25 gm IVPUSH Q15M PRN; Protocol PRN Reason: per Hypoglycemia Standing Ord. Docusate Sodium (Docusate Sodium 100 Mg Capsule) 100 mg PO BID [facility] Last Admin: 11/05/24 07:59 Dose: 100 mg Documented By: GREGORY Enoxaparin Sodium (Enoxaparin Sodium 40 Mg/0.4 Ml Syringe) 40 mg SUBCUT Q24H [facility] Last Admin: 11/04/24 16:19 Dose: 40 mg Documented By: SCIRPOS Glucose (Glucose Gel 15 Gm Gel..Gram.) 15 gm PO Q15M PRN; Protocol PRN Reason: per Hypoglycemia Standing Ord. Hydromorphone HCl (Hydromorphone Hcl 1 Mg/Ml Syringe) 0.5 mg IVPUSH Q4H PRN; Protocol PRN Reason: Pain, Severe (Pain Scale 7-10) Last Admin: 11/05/24 07:04 Dose: 0.5 mg Documented By: TK Lactated Ringer's (Lr) 1,000 mls @ 100 mls/hr IVCONT .Q10H [facility] Last Admin: 11/05/24 03:09 Dose: 100 mls/hr Documented By: TK Insulin Glargine (Insulin Glargine,Hum.Rec.Anlog 100 Unit/Ml 10 Ml Vial) 25 unit SUBCUT BEDTIME [facility] Last Admin: 11/04/24 21:17 Dose: 25 unit Documented By: TK Insulin Human Lispro (Insulin Lispro 100 Unit/Ml 3 Ml Vial) 0 unit SUBCUT QIDACHS [facility]; Protocol Last Admin: 11/05/24 07:58 Dose: 6 unit Documented By: GREGORY Lamotrigine (Lamotrigine 100 Mg Tablet) 200 mg PO BID [facility] Last Admin: 11/05/24 07:59 Dose: 200 mg Documented By: GREGORY Lorazepam (Lorazepam 1 Mg Tablet) 1 mg PO TID PRN PRN Reason: Anxiety Last Admin: 11/05/24 08:00 Dose: 1 mg Documented By: GREGORY Magnesium Hydroxide (Milk Of Magnesia 30 Ml Oral.Susp) 30 ml PO DAILY PRN PRN Reason: Constipation Melatonin (Melatonin 3 Mg Tablet) 6 mg PO BEDTIME PRN PRN Reason: Insomnia Metoclopramide HCl (Metoclopramide Hcl 10 Mg/2 Ml Vial) 5 mg IVPUSH Q6H PRN PRN Reason: Nausea and Vomiting Last Admin: 11/05/24 03:04 Dose: 5 mg Documented By: TK Metoprolol Tartrate (Metoprolol Tartrate 25 Mg Tablet) 25 mg PO BID [facility]; Protocol Last Admin: 11/05/24 08:01 Dose: 25 mg Documented By: GREGORY Midodrine (Midodrine Hcl 5 Mg Tablet) 5 mg PO DAILY [facility] Last Admin: 11/05/24 07:59 Dose: 5 mg Documented By: GREGORY Omeprazole (Omeprazole 20 Mg Capsule.Dr) 20 mg PO BID@0630,0721 [facility] Last Admin: 11/05/24 06:08 Dose: Not Given Documented By: TK Non-Admin Reason: Patient Refused Ondansetron HCl (Ondansetron Hcl 4 Mg/2 Ml Vial) 4 mg IVPUSH Q8H PRN PRN Reason: Nausea and Vomiting Last Admin: 11/05/24 06:04 Dose: 4 mg Documented By: TK Polyethylene Glycol (Polyethylene Glycol 3350 17 Gm Powd.Pack) 17 gm PO DAILY PRN PRN Reason: Constipation Risperidone (Risperidone 2 Mg Tablet) 2 mg PO BID [facility] Last Admin: 11/05/24 07:59 Dose: 2 mg Documented By: GREGORY Sodium Chloride (0.9 % Sodium Chloride Flush 3 Ml Syringe) 3 ml IVFLUSH QSHIFT [facility] Last Admin: 11/05/24 09:21 Dose: Not Given Documented By: GREGORY Non-Admin Reason: IV Running Zolpidem Tartrate (Zolpidem Tartrate 5 Mg Tablet) 10 mg PO BEDTIME [facility] Last Admin: 11/04/24 21:05 Dose: 10 mg Documented By: TK Labs 11/04/24 05:41 11/05/24 05:54 Labs: Laboratory Results - last 24 hr 11/04/24 11/04/24 11/04/24 09:45 17:33 20:26 Hold Purple Top Anion Gap Estim Creat Clear Calc Estimated GFR POC Glucose 170 H 247 H Random Glucose Calcium Total Bilirubin AST ALT Alkaline Phosphatase Total Protein Albumin Urine Color Yellow Urine Appearance Clear Urine pH 7.5 Ur Specific [place] 1.015 Urine Protein 100 (2+) H Urine Glucose (UA) >=1000 H Urine Ketones 15 Urine Blood Small (1+) H Urine Nitrite Negative Ur Leukocyte Esterase Negative Urine RBC 11-20 H Urine WBC 0-5 Ur Squamous Epith Cells 0-2 Urine Bacteria None Seen Hyaline Casts 0-2 Urine Opiates Screen Not Detected Ur Buprenorphine Scrn Not Detected Ur Oxycodone Screen Not Detected Urine Methadone Screen Not Detected Urine Fentanyl Screen Not Detected Ur Barbiturates Screen Not Detected Ur Phencyclidine Scrn Not Detected Ur Amphetamines Screen Not Detected U Benzodiazepines Scrn Not Detected Urine Cocaine Screen Not Detected U Marijuana (THC) Screen POSITIVE H 11/05/24 11/05/24 05:54 07:13 Hold Purple Top SEE NOTE Anion Gap 12 Estim Creat Clear Calc 83.6 Estimated GFR > 60 POC Glucose 287 H Random Glucose 272 H Calcium 9.0 Total Bilirubin 0.4 AST 14 ALT < 6 Alkaline Phosphatase 104 Total Protein 6.6 Albumin 3.7 Urine Color Urine Appearance Urine pH Ur Specific [place] Urine Protein Urine Glucose (UA) Urine Ketones Urine Blood Urine Nitrite Ur Leukocyte Esterase Urine RBC Urine WBC Ur Squamous Epith Cells Urine Bacteria Hyaline Casts Urine Opiates Screen Ur Buprenorphine Scrn Ur Oxycodone Screen Urine Methadone Screen Urine Fentanyl Screen Ur Barbiturates Screen Ur Phencyclidine Scrn Ur Amphetamines Screen U Benzodiazepines Scrn Urine Cocaine Screen U Marijuana (THC) Screen Assessment and Plan (1) Abdominal pain: Status: Acute (2) Type 1 diabetes: Status: Acute (3) Nausea and vomiting: Status: Acute (4) Diabetic gastroparesis: Status: Acute Plan 49 year old female with past medical history of type 1 diabetes mellitus (on insulin pump), diabetic gastroparesis, and cyclical vomiting here with with nausea and vomitting, abdominal pain, clinical presentation c/w with cyclical vomitting syndrome and gastroparesis Gastroparesis/cyclic vomiting syndrome with intractable abdominal pain and vomiting. Zofran and Reglan PRN for nausea and vomitting IVF w D5LR liquid diet and advance as tolerated Planned for GI follow up as outpatient but missed the appointment. to get dr Fletcher consult if no improvement Anxiety Lorazepam PRN to help with nausea and anxiety Hyperglycemia in type 1 Diabetes She wants to use insulin pump until it runs out, if that happens while here will need to change to Lantus 15 to 20 and slidding scale. S he will self-manage the pump, we will be checking POCs Chronic anemia. stable H&H. Mood disorder resume Risperidone and LAmotrigine once med rec done DVT prophylaxis: Lovenox Code status: Full Patient will need hospitalization overnight for intractable nausea\vomiting treatment with antiemetic therapy, pain control with IV analgesia, IV electrolytes replacement and glucose control with insulin. Quality Stroke Does the patient have a stroke diagnosis?: No VTE Prior VTE?: No VTE Risk Level:: Medical - moderate - high VTE Device Contraindication: Treatment Not Indicated VTE Drug Contraindication: N/A - Med Ordered
[2024-11-05] MEDS: Dextrose 5 % and Lactated Ring 1,000 ML 125 ML IVCONT ×2 (10:24→18:00)
[2024-11-05 11:21] LABS: Glucose, Whole Blood 161 mg/dL (60-115)
--- NOTE | 2024-11-05 11:22 | PC.NURSE ---
Pt. legs gave out while walking back from the bathroom, 2 CNAs were with the patient during the incident, and they lowered the pt. half way down. Patient was able to standup straight and walked back to THE bed. Patient did not complain of any injuries and this Nurse did not notice any visible injuries. BP 109/58, HR 97, T98.0, RR20, 97%RA. Patient laying in bed comfortably. Provider notified.
--- NOTE | 2024-11-05 12:28 | MHC.CM.PN ---
IMM DELIVERED PT LIVES WITH SPOUSE. PT IS FUNCTIONALLY INDEP. AND HAS NO SERVICES. PT HAS INSULIN PUMP AND SUPPLIES [facility]IA [facility]. +HCP ON FILE AND VERIFIED. [place] [facility] [place], NO SERVICES IS THE GOAL. PT MAY NEED ASSIST WITH [facility]. CM WILL CONTINUE TO FOLLOW FOR ANY CHANGE TO DC PLAN/NEEDS.
--- NOTE | 2024-11-05 15:22 | P.CDIM_ITS ---
PROVIDER RESPONSE TEXT: To clarify, the appropriate diagnosis supported by the clinical indicators: Anemia of chronic disease: chronic QUERY TEXT: PHYSICIAN'S DOCUMENTATION REQUEST Date of Query: 11/05/2024 10:18 AM EDT Patient Name: Yumiko Sena Admit Date: 11/04/2024 Dear Fernanda Kenny MD, A review of the medical record indicates additional documentation may be needed. Please review below and update the documentation accordingly. Clinical Indicators: H&H on 11/04/24: 9.8/30.4 chronic anemia documented Based on the above, could you clarify which of the following is the most likely type of anemia you ar e evaluating, treating, and/or monitoring? Acute blood loss anemia Acute blood loss anemia with baseline chronic anemia (specify type) Anemia of chronic disease indicate if neoplastic disease, CKD, or other Chronic iron deficiency anemia due to blood loss Vitamin B12 deficiency anemia indicate etiology, such as intrinsic factor deficiency, malabsorption, transcobalamin II deficiency, dietary, etc Folate deficiency anemia indicate etiology, such as dietary, drug-induced, etc Protein deficiency anemia Other (explain) Clinically unable to determine (explain) Thank you, Natalya Gonzalez RN Use of terms such as suspected, likely, concern for, or probable (associated with a specific diagnosi s that is being evaluated, monitored, or treated as if it exists) are acceptable and can be coded in the inpatient se tting, when documented at the time of discharge. Please use your independent medical judgment in providing your response. THIS QUERY IS PART OF THE PERMANENT MEDICAL RECORD
[2024-11-05] MEDS: Enoxaparin Sodium 40 MG/0.4 ML SYRINGE SUBCUT (16:07)
[2024-11-05] MEDS: Omeprazole 20 MG CAPSULE.DR PO (16:07)
[2024-11-05 16:14] LABS: Glucose, Whole Blood 171 mg/dL (60-115)
[2024-11-05 20:44] LABS: Glucose, Whole Blood 195 mg/dL (60-115)
[2024-11-05] MEDS: Zolpidem Tartrate 5 MG TABLET 10 MG PO (21:57)
[2024-11-05] MEDS: Insulin Glargine,Hum.rec.anlog 100 UNIT/ML 10 ML VIAL 25 UNIT SUBCUT (22:00)
[2024-11-06] VITALS (7 sets, daily range): BP systolic 99–147; BP diastolic 57–97; PULSE 77–100; RESP 16–20; TEMP 36.3–36.7; O2SAT 96–99
[2024-11-06] MEDS: HYDROmorphone HCl 1 MG/ML SYRINGE 0.5 MG IVPUSH ×6 (02:24→23:29)
[2024-11-06] MEDS: Dextrose 5 % and Lactated Ring 1,000 ML 125 ML IVCONT ×4 (02:25→23:31)
[2024-11-06] MEDS: Omeprazole 20 MG CAPSULE.DR PO (05:52)
[2024-11-06] MEDS: Metoclopramide HCl 10 MG/2 ML VIAL 5 MG IVPUSH ×3 (05:58→21:42)
[2024-11-06 06:03] LABS: MANUAL DIFF FLAG NO
[2024-11-06 06:08] LABS: Basophils Absolute Auto 0.1 X10*3/uL (0.0-0.2); Basophils Percent Auto 0.7 % (0-2); Eosinophils Absolute Auto 0.1 X10*3/uL (0.0-0.4); Eosinophils Percent Auto 1.1 % (0-4); Hematocrit 25.3 % (37.0-47.0); Hemoglobin 8.3 g/dl (12.0-16.0); Imm Gran Abs Auto 0.02 X10*3/uL (0.00-0.03); Imm Gran Pct Auto 0.2 % (0.0-0.4); Lymphocytes Absolute Auto 3.6 X10*3/uL (1.2-4.9); Lymphocytes Percent Auto 44.4 % (20-40); Mean Corpuscular HGB Conc 32.8 g/dl (31.0-35.0); Mean Corpuscular Hemoglobin 26.5 pg (27.0-33.0); Mean Corpuscular Volume 80.8 fL (80.0-98.0); Mean Platelet Volume 8.6 fL (9.4-12.3); Monocytes Absolute Auto 0.7 X10*3/uL (0.1-1.2); Monocytes Percent Auto 8.2 % (2-11); Neutrophils Absolute Auto 3.6 x10*3/uL (2.0-8.3); Neutrophils Percent Auto 45.4 % (45-73); Platelet Count 463 X10*3/uL (160-400); Red Blood Count 3.13 X10*6/uL (4.20-5.50); Red Cell Distribution Width 16.2 % (11.0-16.0)
[2024-11-06 06:26] LABS: Anion Gap 10 (12-20); Blood Urea Nitrogen 11 mg/dL (9-16); Calcium 8.6 mg/dL (8.4-10.2); Carbon Dioxide 28 mmol/L (22-29); Chloride 103 mmol/L (96-108); Creatinine Clr Calc Pharmacy 96.4; Estimated Glomerular Filt Rate > 60; Glucose Random 150 mg/dL (60-115); Potassium 3.4 mmol/L (3.3-5.1); Sodium 138 mmol/L (135-145)
[2024-11-06 07:43] LABS: Glucose, Whole Blood 156 mg/dL (60-115)
--- NOTE | 2024-11-06 07:53 | P.PNIM_ITS ---
Subjective Subjective Date of Service: 11/06/24 Interval History: She is reporting the pain, nausea is better but this have loose stools overnight, none this morning Review of Systems Review of Systems: Yes all other systems are reviewed and are negative Physical Exam 2 Vital Signs: Vital Signs: Last Vital Signs Temp 97.7 F 11/06/24 07:34 Pulse 90 11/06/24 07:34 Resp 16 11/06/24 07:34 BP 129/57 L 11/06/24 07:34 Pulse Ox 99 11/06/24 07:34 O2 Del Method Room Air 11/06/24 07:34 BMI result Body Mass Index 26.1 Const: Other: General: AO X 3, no acute distress Resp: CTA bilateral CVS: S1,S2,RRR GI: +BS, non-specifi tenderness, no distention Skin: No rash Neuro: motor grossly intact Psych: appropriate affect Objective Data Active Medications Acetaminophen (Acetaminophen 325 Mg Tablet) 650 mg PO Q6H PRN PRN Reason: Pain, Mild 1-3,fever,headache Calcium Carbonate (Calcium Carbonate 750 Mg Tab.Chew) 750 mg PO Q4H PRN PRN Reason: Heartburn Dextrose (Dextrose 50 % 25 Gm/50 Ml Syringe) 25 gm IVPUSH Q15M PRN; Protocol PRN Reason: per Hypoglycemia Standing Ord. Docusate Sodium (Docusate Sodium 100 Mg Capsule) 100 mg PO BID [facility] Last Admin: 11/05/24 21:58 Dose: 100 mg Documented By: ANDRIY Enoxaparin Sodium (Enoxaparin Sodium 40 Mg/0.4 Ml Syringe) 40 mg SUBCUT Q24H [facility] Last Admin: 11/05/24 16:07 Dose: 40 mg Documented By: GREGORY Glucose (Glucose Gel 15 Gm Gel..Gram.) 15 gm PO Q15M PRN; Protocol PRN Reason: per Hypoglycemia Standing Ord. Hydromorphone HCl (Hydromorphone Hcl 1 Mg/Ml Syringe) 0.5 mg IVPUSH Q4H PRN; Protocol PRN Reason: Pain, Severe (Pain Scale 7-10) Last Admin: 11/06/24 05:59 Dose: 0.5 mg Documented By: ANDRIY Dextrose/Lactated Ringer's (D5lr) 1,000 mls @ 125 mls/hr IVCONT .Q8H [facility] Last Admin: 11/06/24 02:25 Dose: 125 mls/hr Documented By: ANDRIY Insulin Glargine (Insulin Glargine,Hum.Rec.Anlog 100 Unit/Ml 10 Ml Vial) 25 unit SUBCUT BEDTIME [facility] Last Admin: 11/05/24 22:00 Dose: 25 unit Documented By: ANDRIY Insulin Human Lispro (Insulin Lispro 100 Unit/Ml 3 Ml Vial) 0 unit SUBCUT QIDACHS [facility]; Protocol Last Admin: 11/05/24 22:01 Dose: 2 unit Documented By: ANDRIY Lamotrigine (Lamotrigine 100 Mg Tablet) 200 mg PO BID [facility] Last Admin: 11/05/24 21:58 Dose: 200 mg Documented By: ANDRIY Lorazepam (Lorazepam 1 Mg Tablet) 1 mg PO TID PRN PRN Reason: Anxiety Last Admin: 11/05/24 08:00 Dose: 1 mg Documented By: GREGORY Magnesium Hydroxide (Milk Of Magnesia 30 Ml Oral.Susp) 30 ml PO DAILY PRN PRN Reason: Constipation Melatonin (Melatonin 3 Mg Tablet) 6 mg PO BEDTIME PRN PRN Reason: Insomnia Metoclopramide HCl (Metoclopramide Hcl 10 Mg/2 Ml Vial) 5 mg IVPUSH Q6H PRN PRN Reason: Nausea and Vomiting Last Admin: 11/06/24 05:58 Dose: 5 mg Documented By: ANDRIY Metoprolol Tartrate (Metoprolol Tartrate 25 Mg Tablet) 25 mg PO BID [facility]; Protocol Last Admin: 11/05/24 21:58 Dose: 25 mg Documented By: ANDRIY Midodrine (Midodrine Hcl 5 Mg Tablet) 5 mg PO DAILY [facility] Last Admin: 11/05/24 07:59 Dose: 5 mg Documented By: GREGORY Omeprazole (Omeprazole 20 Mg Capsule.Dr) 20 mg PO BID@0630,1630 [facility] Last Admin: 11/06/24 05:52 Dose: 20 mg Documented By: ANDRIY Ondansetron HCl (Ondansetron Hcl 4 Mg/2 Ml Vial) 4 mg IVPUSH Q8H PRN PRN Reason: Nausea and Vomiting Last Admin: 11/05/24 06:04 Dose: 4 mg Documented By: HO.MCTR Polyethylene Glycol (Polyethylene Glycol 3350 17 Gm Powd.Pack) 17 gm PO DAILY PRN PRN Reason: Constipation Risperidone (Risperidone 2 Mg Tablet) 2 mg PO BID [facility] Last Admin: 11/05/24 21:58 Dose: 2 mg Documented By: ANDRIY Sodium Chloride (0.9 % Sodium Chloride Flush 3 Ml Syringe) 3 ml IVFLUSH QSHIFT [facility] Last Admin: 11/06/24 00:06 Dose: Not Given Documented By: ANDRIY Non-Admin Reason: IV Running Zolpidem Tartrate (Zolpidem Tartrate 5 Mg Tablet) 10 mg PO BEDTIME [facility] Last Admin: 11/05/24 21:57 Dose: 10 mg Documented By: ANDRIY Labs 11/06/24 05:48 11/06/24 05:48 Labs: Laboratory Results - last 24 hr 11/05/24 11/05/24 11/05/24 11:08 16:05 20:39 MCV MCH MCHC RDW Plt Count MPV Immature Gran % (Auto) Neut % (Auto) Lymph % (Auto) [place] % (Auto) Eos % (Auto) Baso % (Auto) Lymph # (Auto) [place] # (Auto) Eos # (Auto) Baso # (Auto) Abs Immat Gran (auto) Absolute Neuts (auto) Absolute Nucleated RBC Nucleated RBC % (auto) Anion Gap Estim Creat Clear Calc Estimated GFR POC Glucose 161 H 171 H 195 H Random Glucose Calcium 11/06/24 11/06/24 05:48 07:36 MCV 80.8 MCH 26.5 L MCHC 32.8 RDW 16.2 H Plt Count 463 H MPV 8.6 L Immature Gran % (Auto) 0.2 Neut % (Auto) 45.4 Lymph % (Auto) 44.4 H [place] % (Auto) 8.2 Eos % (Auto) 1.1 Baso % (Auto) 0.7 Lymph # (Auto) 3.6 [place] # (Auto) 0.7 Eos # (Auto) 0.1 Baso # (Auto) 0.1 Abs Immat Gran (auto) 0.02 Absolute Neuts (auto) 3.6 Absolute Nucleated RBC 0.000 Nucleated RBC % (auto) 0.0 Anion Gap 10 L Estim Creat Clear Calc 96.4 Estimated GFR > 60 POC Glucose 156 H Random Glucose 150 H Calcium 8.6 Assessment and Plan (1) Abdominal pain: Status: Acute (2) Type 1 diabetes: Status: Acute (3) Nausea and vomiting: Status: Acute (4) Diabetic gastroparesis: Status: Acute Plan 49 year old female with past medical history of type 1 diabetes mellitus (on insulin pump), diabetic gastroparesis, and cyclical vomiting here with with nausea and vomitting, abdominal pain, clinical presentation c/w with cyclical vomitting syndrome and gastroparesis Gastroparesis/cyclic vomiting syndrome with intractable abdominal pain and vomiting. Zofran and Reglan PRN for nausea and vomitting IVF w D5LR liquid diet and advance as tolerated Planned for GI follow up as outpatient but missed the appointment. to get dr Fletcher consult if no improvement Anxiety Lorazepam PRN Diabetes type 1 with Hyperglycemia Insulin pump not available Lantus + SSI, To resume pump at dc Chronic anemia. stable H&H. Mood disorder continue Risperidone and LAmotrigine once med rec done DVT prophylaxis: Lovenox Code status: Full Patient will need hospitalization overnight for intractable nausea\vomiting treatment with antiemetic therapy, pain control with IV analgesia, IV electrolytes replacement and glucose control with insulin. Quality Stroke Does the patient have a stroke diagnosis?: No VTE Prior VTE?: No VTE Risk Level:: Medical - moderate - high VTE Device Contraindication: Treatment Not Indicated VTE Drug Contraindication: N/A - Med Ordered
[2024-11-06] MEDS: ondansetron HCL 4 MG/2 ML VIAL IVPUSH ×2 (07:58→16:20)
[2024-11-06] MEDS: Insulin Lispro 100 UNIT/ML 3 ML VIAL SUBCUT ×3 (08:01→21:38)
[2024-11-06] MEDS: risperiDONE 2 MG TABLET PO ×2 (08:02→21:48)
[2024-11-06] MEDS: Metoprolol Tartrate 25 MG TABLET PO ×2 (08:02→21:47)
[2024-11-06] MEDS: lamoTRIgine 100 MG TABLET 200 MG PO ×2 (08:02→21:48)
[2024-11-06] MEDS: Docusate Sodium 100 MG CAPSULE PO ×2 (08:02→21:48)
[2024-11-06] MEDS: Midodrine HCl 5 MG TABLET PO (08:02)
[2024-11-06] MEDS: 0.9 % Sodium Chloride Flush 3 ML SYRINGE IVFLUSH (08:04)
[2024-11-06 11:25] LABS: Glucose, Whole Blood 128 mg/dL (60-115)
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
[2024-11-06 13:57] LABS: Glucose, Whole Blood 159 mg/dL (60-115)
[2024-11-06 16:09] LABS: Glucose, Whole Blood 248 mg/dL (60-115)
[2024-11-06] MEDS: Enoxaparin Sodium 40 MG/0.4 ML SYRINGE SUBCUT (16:21)
[2024-11-06 21:27] LABS: Glucose, Whole Blood 359 mg/dL (60-115)
[2024-11-06] MEDS: Insulin Glargine,Hum.rec.anlog 100 UNIT/ML 10 ML VIAL 25 UNIT SUBCUT (21:39)
[2024-11-06] MEDS: Zolpidem Tartrate 5 MG TABLET 10 MG PO (21:48)
[2024-11-07] VITALS (8 sets, daily range): BP systolic 89–149; BP diastolic 45–87; PULSE 78–123; RESP 15–20; TEMP 36.1–36.9; O2SAT 94–99
--- NOTE | 2024-11-07 | ECG_ITS ---
Test Reason : Check Qt Blood Pressure : */* mmHG Vent. Rate : 108 BPM Atrial Rate : 108 BPM P-R Int : 138 ms QRS Dur : 90 ms QT Int : 336 ms P-R-T Axes : 60 54 44 degrees QTcB Int : 450 ms Sinus tachycardia Otherwise normal ECG When compared with ECG of 04-Nov-2024 05:15, No significant change was found [facility]: [facility] Signed By: NADEEN MCKEON
[2024-11-07] MEDS: HYDROmorphone HCl 1 MG/ML SYRINGE 0.5 MG IVPUSH ×5 (04:20→21:06)
[2024-11-07] MEDS: Dextrose 5 % and Lactated Ring 1,000 ML 125 ML IVCONT (06:18)
--- NOTE | 2024-11-07 07:56 | P.PNIM_ITS ---
Subjective Subjective Date of Service: 11/07/24 Interval History: She reports feeling bad yesterday with intractable nausea, vomiting, diarrhea and pain better this morning. EGD is planned today Physical Exam 2 Vital Signs: Vital Signs: Last Vital Signs Temp 97.7 F 11/07/24 07:42 Pulse 89 11/07/24 03:14 Resp 16 11/07/24 07:42 BP 102/57 L 11/07/24 07:42 Pulse Ox 97 11/07/24 07:42 O2 Del Method Room Air 11/07/24 07:42 BMI result Body Mass Index 26.1 Const: Other: General: AO X 3, no acute distress Resp: CTA bilateral CVS: S1,S2,RRR GI: +BS, non-specifi tenderness, no distention Skin: No rash Neuro: motor grossly intact Psych: appropriate affect Objective Data Active Medications Acetaminophen (Acetaminophen 325 Mg Tablet) 650 mg PO Q6H PRN PRN Reason: Pain, Mild 1-3,fever,headache Calcium Carbonate (Calcium Carbonate 750 Mg Tab.Chew) 750 mg PO Q4H PRN PRN Reason: Heartburn Heparin Sodium (Porcine) 50 (units/ Sodium Chloride 5 ml) 0 units IVFLUSH QSHIFT PRN PRN Reason: Infusion Center Dextrose (Dextrose 50 % 25 Gm/50 Ml Syringe) 25 gm IVPUSH Q15M PRN; Protocol PRN Reason: per Hypoglycemia Standing Ord. Docusate Sodium (Docusate Sodium 100 Mg Capsule) 100 mg PO BID [facility] Last Admin: 11/06/24 21:48 Dose: 100 mg Documented By: ABBY Enoxaparin Sodium (Enoxaparin Sodium 40 Mg/0.4 Ml Syringe) 40 mg SUBCUT Q24H [facility] Last Admin: 11/06/24 16:21 Dose: 40 mg Documented By: GREGORY Glucose (Glucose Gel 15 Gm Gel..Gram.) 15 gm PO Q15M PRN; Protocol PRN Reason: per Hypoglycemia Standing Ord. Hydromorphone HCl (Hydromorphone Hcl 1 Mg/Ml Syringe) 0.5 mg IVPUSH Q4H PRN; Protocol PRN Reason: Pain, Severe (Pain Scale 7-10) Last Admin: 11/07/24 04:20 Dose: 0.5 mg Documented By: ABBY Dextrose/Lactated Ringer's (D5lr) 1,000 mls @ 125 mls/hr IVCONT .Q8H [facility] Last Admin: 11/07/24 06:18 Dose: 125 mls/hr Documented By: ABBY Insulin Glargine (Insulin Glargine,Hum.Rec.Anlog 100 Unit/Ml 10 Ml Vial) 25 unit SUBCUT BEDTIME [facility] Last Admin: 11/06/24 21:39 Dose: 25 unit Documented By: ABBY Insulin Human Lispro (Insulin Lispro 100 Unit/Ml 3 Ml Vial) 0 unit SUBCUT QIDACHS [facility]; Protocol Last Admin: 11/06/24 21:38 Dose: 10 unit Documented By: ABBY Lamotrigine (Lamotrigine 100 Mg Tablet) 200 mg PO BID [facility] Last Admin: 11/06/24 21:48 Dose: 200 mg Documented By: ABBY Lorazepam (Lorazepam 1 Mg Tablet) 1 mg PO TID PRN PRN Reason: Anxiety Last Admin: 11/05/24 08:00 Dose: 1 mg Documented By: GREGORY Magnesium Hydroxide (Milk Of Magnesia 30 Ml Oral.Susp) 30 ml PO DAILY PRN PRN Reason: Constipation Melatonin (Melatonin 3 Mg Tablet) 6 mg PO BEDTIME PRN PRN Reason: Insomnia Metoclopramide HCl (Metoclopramide Hcl 10 Mg/2 Ml Vial) 5 mg IVPUSH Q6H PRN PRN Reason: Nausea and Vomiting Last Admin: 11/06/24 21:42 Dose: 5 mg Documented By: ABBY Metoprolol Tartrate (Metoprolol Tartrate 25 Mg Tablet) 25 mg PO BID [facility]; Protocol Last Admin: 11/06/24 21:47 Dose: 25 mg Documented By: ABBY Midodrine (Midodrine Hcl 5 Mg Tablet) 5 mg PO DAILY [facility] Last Admin: 11/06/24 08:02 Dose: 5 mg Documented By: GREGORY Omeprazole (Omeprazole 20 Mg Capsule.Dr) 20 mg PO BID@0630,1630 [facility] Last Admin: 11/07/24 06:20 Dose: Not Given Documented By: ABBY Non-Admin Reason: Patient Refused Ondansetron HCl (Ondansetron Hcl 4 Mg/2 Ml Vial) 4 mg IVPUSH Q8H PRN PRN Reason: Nausea and Vomiting Last Admin: 11/06/24 16:20 Dose: 4 mg Documented By: GREGORY Polyethylene Glycol (Polyethylene Glycol 3350 17 Gm Powd.Pack) 17 gm PO DAILY PRN PRN Reason: Constipation Risperidone (Risperidone 2 Mg Tablet) 2 mg PO BID [facility] Last Admin: 11/06/24 21:48 Dose: 2 mg Documented By: ABBY Sodium Chloride (0.9 % Sodium Chloride Flush 3 Ml Syringe) 3 ml IVFLUSH QSHIFT [facility] Last Admin: 11/07/24 00:11 Dose: Not Given Documented By: ABBY Non-Admin Reason: IV Running Zolpidem Tartrate (Zolpidem Tartrate 5 Mg Tablet) 10 mg PO BEDTIME [facility] Last Admin: 11/06/24 21:48 Dose: 10 mg Documented By: ABBY Labs 11/06/24 05:48 11/06/24 05:48 Labs: Laboratory Results - last 24 hr 11/06/24 11/06/24 11/06/24 11:19 13:52 16:01 POC Glucose 128 H 159 H 248 H 11/06/24 21:24 POC Glucose 359 H* Assessment and Plan (1) Abdominal pain: Status: Acute (2) Type 1 diabetes: Status: Acute (3) Nausea and vomiting: Status: Acute (4) Diabetic gastroparesis: Status: Acute Plan 49 year old female with past medical history of type 1 diabetes mellitus (on insulin pump), diabetic gastroparesis, and cyclical vomiting here with with nausea and vomitting, abdominal pain, clinical presentation c/w with cyclical vomitting syndrome and gastroparesis Gastroparesis/cyclic vomiting syndrome with intractable abdominal pain and vomiting and diarrhea Zofran and Reglan PRN for nausea and vomitting IVF w D5LR NPO for EGD today by Dr. Chance Santillan Lorazepam PRN Diabetes type 1 with Hyperglycemia Insulin pump not available Lantus + SSI, To resume pump at dc Chronic anemia. stable H&H. Mood disorder continue Risperidone and LAmotrigine once med rec done DVT prophylaxis: Lovenox Code status: Full Patient will need hospitalization overnight for intractable nausea\vomiting treatment with antiemetic therapy, pain control with IV analgesia, IV electrolytes replacement and glucose control with insulin. Quality Stroke Does the patient have a stroke diagnosis?: No VTE Prior VTE?: No VTE Risk Level:: Medical - moderate - high VTE Device Contraindication: Treatment Not Indicated VTE Drug Contraindication: N/A - Med Ordered
[2024-11-07 07:58] LABS: Glucose, Whole Blood 333 mg/dL (60-115)
[2024-11-07 08:12] LABS: Hematocrit 28.2 % (37.0-47.0); Hemoglobin 9.3 g/dl (12.0-16.0); Mean Corpuscular Hemoglobin 25.9 pg (27.0-33.0); Mean Corpuscular Volume 78.6 fL (80.0-98.0); Mean Platelet Volume 8.6 fL (9.4-12.3); Platelet Count 496 X10*3/uL (160-400); Red Blood Count 3.59 X10*6/uL (4.20-5.50); Red Cell Distribution Width 15.9 % (11.0-16.0); White Blood Count 11.2 X10*3/uL (4.8-10.8)
[2024-11-07] MEDS: Metoclopramide HCl 10 MG/2 ML VIAL 5 MG IVPUSH ×2 (08:13→15:29)
[2024-11-07] MEDS: Insulin Lispro 100 UNIT/ML 3 ML VIAL SUBCUT ×2 (08:14→16:39)
[2024-11-07] MEDS: Docusate Sodium 100 MG CAPSULE PO ×2 (08:15→21:17)
[2024-11-07] MEDS: lamoTRIgine 100 MG TABLET 200 MG PO ×2 (08:15→21:17)
[2024-11-07] MEDS: Midodrine HCl 5 MG TABLET PO (08:15)
[2024-11-07] MEDS: Metoprolol Tartrate 25 MG TABLET PO ×2 (08:15→21:17)
[2024-11-07] MEDS: risperiDONE 2 MG TABLET PO ×2 (08:15→21:17)
[2024-11-07 08:39] LABS: Anion Gap 14 (12-20); Blood Urea Nitrogen 7 mg/dL (9-16); Calcium 8.9 mg/dL (8.4-10.2); Carbon Dioxide 28 mmol/L (22-29); Chloride 97 mmol/L (96-108); Creatinine Clr Calc Pharmacy 77.1; Estimated Glomerular Filt Rate > 60; Glucose Random 333 mg/dL (60-115); Sodium 136 mmol/L (135-145)
--- NOTE | 2024-11-07 09:33 | P.OP_ITS ---
Operative Note Operative Note Date of Service: 11/07/24 Narrative: Procedure: Esophagogastroduodenoscopy Endoscopist: Kasia Fletcher MD Indication: Abd pain, N,V Anesthesia Provider: Dr Rj Linn Anesthesia Type: MAC ?? EGD Procedure:?? The procedure, indications, preparation and potential complications were reviewed with the patient, who indicated understanding and gave written informed consent to proceed. A physical exam was performed. The endoscope was introduced through the mouth, and advanced to the second part of duodenum. The mucosa was carefully examined on slow withdrawal of the endoscope. The patient tolerated the procedure well. There were no immediate complications.? ? EGD Findings:? * Esophagus:? Normal esophageal mucosa. The Z line was at 40 cm. * Stomach:? Mild erythema and erosions in the body and fundus. Retroflexion performed in the cardia. Pyloric inlet appeared narrow. Scope could easily tra verse through this. Cold forceps biopsies were taken from stomach. * Duodenum:? Normal mucosa was noted in the whole of the examined duodenum. Cold forceps biopsies were taken for histology. Additional intervention: A through the scope pyloric balloon was inserted through the biopsy channel and advanced through the pyloric inlet. The pylorus was incrementally dilated from 15 to 16.5 mm. Significant resistance at 16.5 mm. On relook superficial tear at 6 o clock confirming successful dilation. ? EGD Impressions:? * Normal esophagus * Gastritis (biopsy) * Pyloric stenosis (dilation) * Normal duodenum (biopsy) ?? Recommendations:?? * Follow biopsy results. Our office will call or send a letter with results within 7-10 days. * Repeat EGD as outpatient in 6-8 weeks for pyloric stenosis/pylorospasm * If no improvement in sx after next dilation, may need to be referred for revision of G-POEM. * If QTc not prolonged on 12-lead EKG, start erythromycin 250 mg TID x 3 days. (can be switched to PO if pt gets discharged before course is complete) * Small particle diet * Avoid NSAIDs and opiate * Cont PPI Above has been reviewed with the patient.
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
[2024-11-07 11:32] LABS: Glucose, Whole Blood 97 mg/dL (60-115)
[2024-11-07] MEDS: ondansetron HCL 4 MG/2 ML VIAL IVPUSH ×2 (13:03→21:09)
[2024-11-07] MEDS: 0.9 % Sodium Chloride Flush 3 ML SYRINGE IVFLUSH (13:03)
[2024-11-07] MEDS: Erythromycin Lactobionate 250 MG in 0.9 % Sodium Chloride 100 ML 100 MG IV ×2 (14:20→22:53)
[2024-11-07] MEDS: Enoxaparin Sodium 40 MG/0.4 ML SYRINGE SUBCUT (15:30)
[2024-11-07 16:38] LABS: Glucose, Whole Blood 196 mg/dL (60-115)
[2024-11-07] MEDS: Omeprazole 20 MG CAPSULE.DR PO (16:39)
[2024-11-07 20:48] LABS: Glucose, Whole Blood 143 mg/dL (60-115)
[2024-11-07] MEDS: Zolpidem Tartrate 5 MG TABLET 10 MG PO (21:17)
[2024-11-07] MEDS: Insulin Glargine,Hum.rec.anlog 100 UNIT/ML 10 ML VIAL 25 UNIT SUBCUT (21:18)
[2024-11-07] MEDS: Dextrose 5 % and Lactated Ring 1,000 ML 50 ML IVCONT (21:28)
[2024-11-08] MEDS: HYDROmorphone HCl 1 MG/ML SYRINGE 0.5 MG IVPUSH ×6 (01:37→22:31)
[2024-11-08 03:53] VITALS: BP 112/60; PULSE 89; RESP 16; TEMP 36.4; O2SAT 99
[2024-11-08] MEDS: Erythromycin Lactobionate 250 MG in 0.9 % Sodium Chloride 100 ML 100 MG IV ×2 (05:42→13:50)
[2024-11-08] MEDS: Omeprazole 20 MG CAPSULE.DR PO ×2 (05:43→16:42)
[2024-11-08 07:45] LABS: Glucose, Whole Blood 79 mg/dL (60-115)
[2024-11-08 07:50] VITALS: BP 144/66; PULSE 96; RESP 18; TEMP 36.6; O2SAT 99
[2024-11-08] MEDS: lamoTRIgine 100 MG TABLET 200 MG PO ×2 (08:13→20:19)
[2024-11-08] MEDS: LORazepam 1 MG TABLET PO (08:13)
[2024-11-08] MEDS: Metoprolol Tartrate 25 MG TABLET PO (08:13)
[2024-11-08] MEDS: Midodrine HCl 5 MG TABLET PO (08:13)
[2024-11-08] MEDS: risperiDONE 2 MG TABLET PO ×2 (08:13→20:18)
[2024-11-08] MEDS: Docusate Sodium 100 MG CAPSULE PO ×2 (08:14→20:18)
[2024-11-08 08:52] LABS: Anion Gap 13 (12-20); Blood Urea Nitrogen 7 mg/dL (9-16); Calcium 8.5 mg/dL (8.4-10.2); Carbon Dioxide 30 mmol/L (22-29); Chloride 100 mmol/L (96-108); Creatinine Clr Calc Pharmacy 96.4; Estimated Glomerular Filt Rate > 60; Glucose Random 113 mg/dL (60-115); Potassium 2.9 mmol/L (3.3-5.1); Sodium 140 mmol/L (135-145)
--- NOTE | 2024-11-08 08:56 | P.PNIM_ITS ---
Subjective Subjective Date of Service: 11/08/24 Interval History: But she is still experiencing nausea she says that she feels overall better. She had episode of low sugar overnight. She has not been eating. She will try liquid diet this morning. Physical Exam 2 Vital Signs: Vital Signs: Last Vital Signs Temp 97.9 F 11/08/24 07:50 Pulse 96 11/08/24 07:50 Resp 18 11/08/24 07:50 BP 144/66 H 11/08/24 07:50 Pulse Ox 99 11/08/24 07:50 O2 Del Method Room Air 11/08/24 07:50 BMI result Body Mass Index 26.1 General: AO X 3, no acute distress Resp: CTA bilateral CVS: S1,S2,RRR GI: +BS, NT, no distention Skin: No rash Neuro: motor grossly intact Psych: appropriate affect Objective Data Active Medications Acetaminophen (Acetaminophen 325 Mg Tablet) 650 mg PO Q6H PRN PRN Reason: Pain, Mild 1-3,fever,headache Calcium Carbonate (Calcium Carbonate 750 Mg Tab.Chew) 750 mg PO Q4H PRN PRN Reason: Heartburn Heparin Sodium (Porcine) 50 (units/ Sodium Chloride 5 ml) 0 units IVFLUSH QSHIFT PRN PRN Reason: Infusion Center Dextrose (Dextrose 50 % 25 Gm/50 Ml Syringe) 25 gm IVPUSH Q15M PRN; Protocol PRN Reason: per Hypoglycemia Standing Ord. Docusate Sodium (Docusate Sodium 100 Mg Capsule) 100 mg PO BID [facility] Last Admin: 11/08/24 08:14 Dose: 100 mg Documented By: CALEB Enoxaparin Sodium (Enoxaparin Sodium 40 Mg/0.4 Ml Syringe) 40 mg SUBCUT Q24H [facility] Last Admin: 11/07/24 15:30 Dose: 40 mg Documented By: JOSE ANGEL Glucose (Glucose Gel 15 Gm Gel..Gram.) 15 gm PO Q15M PRN; Protocol PRN Reason: per Hypoglycemia Standing Ord. Hydromorphone HCl (Hydromorphone Hcl 1 Mg/Ml Syringe) 0.5 mg IVPUSH Q4H PRN; Protocol PRN Reason: Pain, Severe (Pain Scale 7-10) Last Admin: 11/08/24 05:39 Dose: 0.5 mg Documented By: ABBY Erythromycin Lactobionate 250 (mg/ Sodium Chloride) 100 mls @ 100 mls/hr IV Q8H [facility] Last Infusion: 11/08/24 06:46 Dose: Infused Documented By: ABBY Dextrose/Lactated Ringer's (D5lr) 1,000 mls @ 50 mls/hr IVCONT .Q20H [facility] Last Infusion: 11/08/24 06:47 Dose: 50 mls/hr Documented By: ABBY Insulin Glargine (Insulin Glargine,Hum.Rec.Anlog 100 Unit/Ml 10 Ml Vial) 25 unit SUBCUT BEDTIME [facility] Last Admin: 11/07/24 21:18 Dose: 25 unit Documented By: ABBY Insulin Human Lispro (Insulin Lispro 100 Unit/Ml 3 Ml Vial) 0 unit SUBCUT QIDACHS [facility]; Protocol Last Admin: 11/08/24 07:33 Dose: Not Given Documented By: CALEB Non-Admin Reason: No Insulin Coverage Lamotrigine (Lamotrigine 100 Mg Tablet) 200 mg PO BID [facility] Last Admin: 11/08/24 08:13 Dose: 200 mg Documented By: CALEB Lorazepam (Lorazepam 1 Mg Tablet) 1 mg PO TID PRN PRN Reason: Anxiety Last Admin: 11/08/24 08:13 Dose: 1 mg Documented By: CALEB Magnesium Hydroxide (Milk Of Magnesia 30 Ml Oral.Susp) 30 ml PO DAILY PRN PRN Reason: Constipation Melatonin (Melatonin 3 Mg Tablet) 6 mg PO BEDTIME PRN PRN Reason: Insomnia Metoclopramide HCl (Metoclopramide Hcl 10 Mg/2 Ml Vial) 5 mg IVPUSH Q6H PRN PRN Reason: Nausea and Vomiting Last Admin: 11/07/24 15:29 Dose: 5 mg Documented By: JOSE ANGEL Metoprolol Tartrate (Metoprolol Tartrate 25 Mg Tablet) 25 mg PO BID [facility]; Protocol Last Admin: 11/08/24 08:13 Dose: 25 mg Documented By: CALEB Midodrine (Midodrine Hcl 5 Mg Tablet) 5 mg PO DAILY [facility] Last Admin: 11/08/24 08:13 Dose: 5 mg Documented By: CALEB Naloxone HCl (Naloxone Hcl 0.4 Mg/Ml Vial) 0.04 mg IVPUSH Q5M PRN PRN Reason: Excessive sedation or RR < 8 Omeprazole (Omeprazole 20 Mg Capsule.Dr) 20 mg PO BID@0630,1630 [facility] Last Admin: 11/08/24 05:43 Dose: 20 mg Documented By: ABBY Ondansetron HCl (Ondansetron Hcl 4 Mg/2 Ml Vial) 4 mg IVPUSH Q8H PRN PRN Reason: Nausea and Vomiting Last Admin: 11/07/24 21:09 Dose: 4 mg Documented By: ABBY Polyethylene Glycol (Polyethylene Glycol 3350 17 Gm Powd.Pack) 17 gm PO DAILY PRN PRN Reason: Constipation Risperidone (Risperidone 2 Mg Tablet) 2 mg PO BID [facility] Last Admin: 11/08/24 08:13 Dose: 2 mg Documented By: CALEB Sodium Chloride (0.9 % Sodium Chloride Flush 3 Ml Syringe) 3 ml IVFLUSH QSHIFT [facility] Last Admin: 11/08/24 08:13 Dose: Not Given Documented By: CALEB Non-Admin Reason: IV Running Zolpidem Tartrate (Zolpidem Tartrate 5 Mg Tablet) 10 mg PO BEDTIME [facility] Last Admin: 11/07/24 21:17 Dose: 10 mg Documented By: ABBY Labs 11/07/24 08:06 11/08/24 08:00 Labs: Laboratory Results - last 24 hr 11/07/24 11/07/24 11/07/24 11:28 16:29 20:41 Anion Gap Estim Creat Clear Calc Estimated GFR POC Glucose 97 196 H 143 H Random Glucose Calcium 11/08/24 11/08/24 07:25 08:00 Anion Gap 13 Estim Creat Clear Calc 96.4 Estimated GFR > 60 POC Glucose 79 Random Glucose 113 Calcium 8.5 Assessment and Plan (1) Abdominal pain: Status: Acute (2) Type 1 diabetes: Status: Acute (3) Nausea and vomiting: Status: Acute (4) Diabetic gastroparesis: Status: Acute Plan 49 year old female with past medical history of type 1 diabetes mellitus (on insulin pump), diabetic gastroparesis, and cyclical vomiting here with with nausea and vomitting, abdominal pain, clinical presentation c/w with cyclical vomitting syndrome and gastroparesis Gastroparesis/cyclic vomiting syndrome with intractable abdominal pain and vomiting and diarrhea Zofran and Reglan PRN for nausea and vomitting IVF w D5LR EGD 11/07 EGD Impressions:? * Normal esophagus * Gastritis (biopsy) * Pyloric stenosis (dilation) * Normal duodenum (biopsy)?? Recommendations:?? * Follow biopsy results. Our office will call or send a letter with results within 7-10 days. * Repeat EGD as outpatient in 6-8 weeks for pyloric stenosis/pylorospasm * If no improvement in sx after next dilation, may need to be referred for revision of G-POEM. * If QTc not prolonged on 12-lead EKG, start erythromycin 250 mg TID x 3 days. (can be switched to PO if pt gets discharged before course is complete) * Small particle diet * Avoid NSAIDs and opiate * Cont PPI Added erythro, wean off Narc advance diet Hypokalemia--IV replacement, PO if tolerate check mag Anxiety Lorazepam PRN Diabetes type 1 with Hyperglycemia Insulin pump not available Lantus + SSI, To resume pump at dc Chronic anemia. stable H&H. Mood disorder continue Risperidone and LAmotrigine once med rec done DVT prophylaxis: Lovenox Code status: Full Patient will need hospitalization overnight for intractable nausea\vomiting treatment with antiemetic therapy, pain control with IV analgesia, IV electrolytes replacement and glucose control with insulin. Quality Stroke Does the patient have a stroke diagnosis?: No VTE Prior VTE?: No VTE Risk Level:: Medical - moderate - high VTE Device Contraindication: Treatment Not Indicated VTE Drug Contraindication: N/A - Med Ordered
--- NOTE | 2024-11-08 09:19 | P.PNGI_ITS ---
Subjective Subjective Date of Service: 11/08/24 Interval History: patient seen and evaluated at bedside for follow-up. Reported worsening pain shortly after procedure which has now improved. Endorses nausea, but has not had any further vomiting. Has been trying liquids this morning without any difficulty. Critical Care Time (minutes): 0 Physical Exam 2 Vital Signs: Vital Signs: Last Vital Signs Temp 97.9 F 11/08/24 07:50 Pulse 96 11/08/24 07:50 Resp 18 11/08/24 07:50 BP 144/66 H 11/08/24 07:50 Pulse Ox 99 11/08/24 07:50 O2 Del Method Room Air 11/08/24 07:50 BMI result Body Mass Index 26.1 No apparent distress Nonicteric Abdomen soft, nondistended Objective Data Labs 11/07/24 08:06 11/08/24 08:00 Labs: Laboratory Results - last 24 hr 11/07/24 11/07/24 11/07/24 11:28 16:29 20:41 Sodium Potassium Chloride Carbon Dioxide Anion Gap BUN Creatinine Estim Creat Clear Calc Estimated GFR POC Glucose 97 196 H 143 H Random Glucose Calcium 11/08/24 11/08/24 07:25 08:00 Sodium 140 Potassium 2.9 L* Chloride 100 Carbon Dioxide 30 H Anion Gap 13 BUN 7 L Creatinine 0.72 Estim Creat Clear Calc 96.4 Estimated GFR > 60 POC Glucose 79 Random Glucose 113 Calcium 8.5 Procedures Date of Service Date of Service: 11/08/24 Progress Note: A&P Assessment and plan (1) Nausea and vomiting: Status: Acute (2) Abdominal pain: Status: Acute (3) Type 1 diabetes: Status: Acute (4) Diabetic gastroparesis: Status: Acute Plan Again reviewed with the patient, that pyloric dilation as a temporary measure, and will need to follow-up with Dr. De La Fuente for consideration of G POEM revision. Plan: - minimize opiates - advance diet as tolerated - nutrition referral for education on gastroparesis diet - will send out [facility] for GPOEM revision as outpatient Time Spent With Patient Time: Total time managing care of this patient today ____ minutes. Quality Stroke Does the patient have a stroke diagnosis?: No VTE Prior VTE?: No VTE Risk Level:: Medical - moderate - high VTE Device Contraindication: Treatment Not Indicated VTE Drug Contraindication: N/A - Med Ordered
[2024-11-08] MEDS: Potassium Chloride/H20 20 MEQ/100 ML PIGGYBACK 100 MEQ IV (09:25)
[2024-11-08 11:15] LABS: Glucose, Whole Blood 139 mg/dL (60-115)
[2024-11-08 14:08] LABS: Magnesium 1.5 mg/dL (1.6-2.6)
[2024-11-08] MEDS: Metoclopramide HCl 10 MG/2 ML VIAL 5 MG IVPUSH (14:33)
[2024-11-08 15:11] VITALS: BP 110/60; PULSE 80; RESP 18; TEMP 36.4; O2SAT 94
[2024-11-08 16:31] LABS: Glucose, Whole Blood 137 mg/dL (60-115)
[2024-11-08] MEDS: Magnesium Sulfate/H2O 2 GM/50 ML PIGGYBACK IV (16:43)
[2024-11-08] MEDS: Enoxaparin Sodium 40 MG/0.4 ML SYRINGE SUBCUT (16:46)
[2024-11-08] MEDS: Potassium Chloride/H20 10 MEQ/100 ML PIGGYBACK 100 MEQ IV ×4 (18:38→22:47)
[2024-11-08 19:47] LABS: Glucose, Whole Blood 170 mg/dL (60-115)
[2024-11-08 19:58] VITALS: BP 86/48; PULSE 82; RESP 18; TEMP 36.7; O2SAT 93
[2024-11-08] MEDS: Zolpidem Tartrate 5 MG TABLET 10 MG PO (20:18)
[2024-11-08] MEDS: Insulin Glargine,Hum.rec.anlog 100 UNIT/ML 10 ML VIAL 25 UNIT SUBCUT (20:18)
[2024-11-08] MEDS: Insulin Lispro 100 UNIT/ML 3 ML VIAL SUBCUT (20:18)
[2024-11-08] MEDS: Lactated Ringers 500 ML 999 ML IV (21:08)
[2024-11-08] MEDS: Dextrose 50 % 25 GM/50 ML SYRINGE IVPUSH (23:43)
[2024-11-08 23:46] LABS: Glucose, Whole Blood 44 mg/dL (60-115)
[2024-11-09] VITALS (7 sets, daily range): BP systolic 103–122; BP diastolic 51–67; PULSE 83–120; RESP 12–18; TEMP 36.1–37.1; O2SAT 96–99
[2024-11-09 00:04] LABS: Glucose, Whole Blood 200 mg/dL (60-115)
[2024-11-09] MEDS: Erythromycin Lactobionate 250 MG in 0.9 % Sodium Chloride 100 ML 100 MG IV ×3 (00:04→18:15)
[2024-11-09 00:19] LABS: Glucose, Whole Blood 177 mg/dL (60-115)
[2024-11-09] MEDS: ondansetron HCL 4 MG/2 ML VIAL IVPUSH ×3 (01:17→18:12)
[2024-11-09] MEDS: LORazepam 1 MG TABLET PO ×2 (01:17→21:09)
[2024-11-09 02:33] LABS: Glucose, Whole Blood 151 mg/dL (60-115)
[2024-11-09] MEDS: HYDROmorphone HCl 1 MG/ML SYRINGE 0.5 MG IVPUSH ×3 (02:33→10:39)
[2024-11-09] MEDS: Omeprazole 20 MG CAPSULE.DR PO ×2 (06:05→16:41)
[2024-11-09] MEDS: Dextrose 5 % and Lactated Ring 1,000 ML 50 ML IVCONT (06:05)
[2024-11-09 07:15] LABS: Anion Gap 12 (12-20); Blood Urea Nitrogen 6 mg/dL (9-16); Calcium 8.6 mg/dL (8.4-10.2); Carbon Dioxide 31 mmol/L (22-29); Chloride 102 mmol/L (96-108); Creatinine Clr Calc Pharmacy 99.1; Estimated Glomerular Filt Rate > 60; Glucose Random 89 mg/dL (60-115); Potassium 3.3 mmol/L (3.3-5.1); Sodium 142 mmol/L (135-145)
[2024-11-09 07:28] LABS: Glucose, Whole Blood 72 mg/dL (60-115)
--- NOTE | 2024-11-09 07:42 | HO.POSTANES ---
Post Anesthesia Evaluation Post Anesthesia Evaluation Date of Service: 11/09/24 Vital Signs: Vital Signs Temp Pulse Resp BP Pulse Ox O2 Del Method 11/09/24 06:58 98.7 F 83 12 108/63 97 Room Air 11/09/24 06:32 84 122/65 11/09/24 03:28 108 H 11/09/24 02:26 97 F 120 H 18 111/67 99 Room Air 11/09/24 00:05 97.8 F 112 H 16 103/51 L 96 Room Air 11/08/24 19:58 98.1 F 82 18 86/48 L 93 Room Air Anesthesia: TIVA Mental Status: Awake Pain Control: Satisfactory Nausea/Vomiting: None Hydration: Adequate Anesthesia-Related Issues: No Anes. Related Issues
[2024-11-09 08:08] LABS: Glucose, Whole Blood 56 mg/dL (60-115)
[2024-11-09] MEDS: Dextrose 50 % 25 GM/50 ML SYRINGE IVPUSH (08:09)
--- NOTE | 2024-11-09 08:48 | P.PNIM_ITS ---
Subjective Subjective Date of Service: 11/09/24 Interval History: Hypoglycemia of 46 last night, got dextrose and improved to 76, did not take anything by mouth, and sugar dropped again this morning to 53 and given additinal dextrose with D5 running, she wants to try regular diet this morning. She is not having signficant N/V Physical Exam 2 Vital Signs: Vital Signs: Last Vital Signs Temp 98.7 F 11/09/24 06:58 Pulse 83 11/09/24 06:58 Resp 12 11/09/24 06:58 BP 108/63 11/09/24 06:58 Pulse Ox 97 11/09/24 06:58 O2 Del Method Room Air 11/09/24 06:58 BMI result Body Mass Index 26.1 General: AO X 3, no acute distress Resp: CTA bilateral CVS: S1,S2,RRR GI: +BS, NT, no distention Skin: No rash Neuro: motor grossly intact Psych: appropriate affect Objective Data Active Medications Acetaminophen (Acetaminophen 325 Mg Tablet) 650 mg PO Q6H PRN PRN Reason: Pain, Mild 1-3,fever,headache Calcium Carbonate (Calcium Carbonate 750 Mg Tab.Chew) 750 mg PO Q4H PRN PRN Reason: Heartburn Heparin Sodium (Porcine) 50 (units/ Sodium Chloride 5 ml) 0 units IVFLUSH QSHIFT PRN PRN Reason: Infusion Center Dextrose (Dextrose 50 % 25 Gm/50 Ml Syringe) 25 gm IVPUSH Q15M PRN; Protocol PRN Reason: per Hypoglycemia Standing Ord. Last Admin: 11/09/24 08:09 Dose: 25 gm Documented By: LAURA Docusate Sodium (Docusate Sodium 100 Mg Capsule) 100 mg PO BID [facility] Last Admin: 11/08/24 20:18 Dose: 100 mg Documented By: ANTSHERRILLC Enoxaparin Sodium (Enoxaparin Sodium 40 Mg/0.4 Ml Syringe) 40 mg SUBCUT Q24H [facility] Last Admin: 11/08/24 16:46 Dose: 40 mg Documented By: CALEB Glucose (Glucose Gel 15 Gm Gel..Gram.) 15 gm PO Q15M PRN; Protocol PRN Reason: per Hypoglycemia Standing Ord. Hydromorphone HCl (Hydromorphone Hcl 1 Mg/Ml Syringe) 0.5 mg IVPUSH Q4H PRN; Protocol PRN Reason: Pain, Severe (Pain Scale 7-10) Last Admin: 11/09/24 06:36 Dose: 0.5 mg Documented By: NATALIIA Erythromycin Lactobionate 250 (mg/ Sodium Chloride) 100 mls @ 100 mls/hr IV Q8H [facility] Last Infusion: 11/09/24 01:58 Dose: Infused Documented By: NATALIIA Dextrose/Lactated Ringer's (D5lr) 1,000 mls @ 50 mls/hr IVCONT .Q20H [facility] Last Admin: 11/09/24 06:05 Dose: 50 mls/hr Documented By: NATALIIA Insulin Glargine (Insulin Glargine,Hum.Rec.Anlog 100 Unit/Ml 10 Ml Vial) 25 unit SUBCUT BEDTIME [facility] Last Admin: 11/08/24 20:18 Dose: 25 unit Documented By: HARJEET Insulin Human Lispro (Insulin Lispro 100 Unit/Ml 3 Ml Vial) 0 unit SUBCUT QIDACHS [facility]; Protocol Last Admin: 11/09/24 08:32 Dose: Not Given Documented By: LAURA Non-Admin Reason: No Insulin Coverage Lamotrigine (Lamotrigine 100 Mg Tablet) 200 mg PO BID [facility] Last Admin: 11/08/24 20:19 Dose: 200 mg Documented By: HARJEET Lorazepam (Lorazepam 1 Mg Tablet) 1 mg PO TID PRN PRN Reason: Anxiety Last Admin: 11/09/24 01:17 Dose: 1 mg Documented By: NATALIIA Magnesium Hydroxide (Milk Of Magnesia 30 Ml Oral.Susp) 30 ml PO DAILY PRN PRN Reason: Constipation Melatonin (Melatonin 3 Mg Tablet) 6 mg PO BEDTIME PRN PRN Reason: Insomnia Metoclopramide HCl (Metoclopramide Hcl 10 Mg/2 Ml Vial) 5 mg IVPUSH Q6H PRN PRN Reason: Nausea and Vomiting Last Admin: 11/08/24 14:33 Dose: 5 mg Documented By: CALEB Metoprolol Tartrate (Metoprolol Tartrate 25 Mg Tablet) 25 mg PO BID [facility]; Protocol Last Admin: 11/08/24 21:10 Dose: Not Given Documented By: HARJEET Non-Admin Reason: HYPOTENSION Midodrine (Midodrine Hcl 5 Mg Tablet) 5 mg PO DAILY [facility] Last Admin: 11/08/24 08:13 Dose: 5 mg Documented By: CALEB Naloxone HCl (Naloxone Hcl 0.4 Mg/Ml Vial) 0.04 mg IVPUSH Q5M PRN PRN Reason: Excessive sedation or RR < 8 Omeprazole (Omeprazole 20 Mg Capsule.Dr) 20 mg PO BID@0630,1630 [facility] Last Admin: 11/09/24 06:05 Dose: 20 mg Documented By: NATALIIA Ondansetron HCl (Ondansetron Hcl 4 Mg/2 Ml Vial) 4 mg IVPUSH Q8H PRN PRN Reason: Nausea and Vomiting Last Admin: 11/09/24 01:17 Dose: 4 mg Documented By: NATALIIA Oxycodone HCl (Oxycodone Hcl Immed Release 5 Mg Tablet) 5 mg PO Q6H PRN PRN Reason: Pain, Moderate(Pain Scale 4-6) Polyethylene Glycol (Polyethylene Glycol 3350 17 Gm Powd.Pack) 17 gm PO DAILY PRN PRN Reason: Constipation Risperidone (Risperidone 2 Mg Tablet) 2 mg PO BID [facility] Last Admin: 11/08/24 20:18 Dose: 2 mg Documented By: ANTDONNA Sodium Chloride (0.9 % Sodium Chloride Flush 3 Ml Syringe) 3 ml IVFLUSH QSHIFT [facility] Last Admin: 11/09/24 00:23 Dose: Not Given Documented By: NATALIIA Non-Admin Reason: IV Running Zolpidem Tartrate (Zolpidem Tartrate 5 Mg Tablet) 10 mg PO BEDTIME [facility] Last Admin: 11/08/24 20:18 Dose: 10 mg Documented By: ANTSHERRILLC Labs 11/07/24 08:06 11/09/24 05:42 Labs: Laboratory Results - last 24 hr 11/08/24 11/08/24 11/08/24 08:00 11:05 16:25 Hold Purple Top Anion Gap 13 Estim Creat Clear Calc 96.4 Estimated GFR > 60 POC Glucose 139 H 137 H Random Glucose 113 Calcium 8.5 Magnesium 1.5 L 11/08/24 11/08/24 11/09/24 19:43 23:41 00:00 Hold Purple Top Anion Gap Estim Creat Clear Calc Estimated GFR POC Glucose 170 H 44 L* 200 H Random Glucose Calcium Magnesium 11/09/24 11/09/24 11/09/24 00:15 02:28 05:42 Hold Purple Top SEE NOTE Anion Gap 12 Estim Creat Clear Calc 99.1 Estimated GFR > 60 POC Glucose 177 H 151 H Random Glucose 89 Calcium 8.6 Magnesium 11/09/24 11/09/24 07:00 08:04 Hold Purple Top Anion Gap Estim Creat Clear Calc Estimated GFR POC Glucose 72 56 L* Random Glucose Calcium Magnesium Assessment and Plan (1) Abdominal pain: Status: Acute (2) Type 1 diabetes: Status: Acute (3) Nausea and vomiting: Status: Acute (4) Diabetic gastroparesis: Status: Acute Plan 49 year old female with past medical history of type 1 diabetes mellitus (on insulin pump), diabetic gastroparesis, and cyclical vomiting here with with nausea and vomitting, abdominal pain, clinical presentation c/w with cyclical vomitting syndrome and gastroparesis Gastroparesis/cyclic vomiting syndrome with intractable abdominal pain and vomiting and diarrhea Zofran and Reglan PRN for nausea and vomitting IVF w D5LR EGD 11/07 EGD Impressions:? * Normal esophagus * Gastritis (biopsy) * Pyloric stenosis (dilation) * Normal duodenum (biopsy)?? Recommendations:?? * Follow biopsy results. Our office will call or send a letter with results within 7-10 days. * Repeat EGD as outpatient in 6-8 weeks for pyloric stenosis/pylorospasm * If no improvement in sx after next dilation, may need to be referred for revision of G-POEM. * If QTc not prolonged on 12-lead EKG, start erythromycin 250 mg TID x 3 days. (can be switched to PO if pt gets discharged before course is complete) * Small particle diet * Avoid NSAIDs and opiate * Cont PPI Added erythro, wean off Narc advance diet Hypokalemia--IV replacement, PO if tolerate check mag Anxiety Lorazepam PRN Diabetes type 1, hypoglycemia d/t not eating Insulin pump not available IV glucose as needed to correct hypoglycemia starting regular diet this morning To resume pump at dc Chronic anemia. stable H&H. Mood disorder continue Risperidone and LAmotrigine once med rec done DVT prophylaxis: Lovenox Code status: Full Patient will need hospitalization overnight for intractable nausea\vomiting treatment with antiemetic therapy, pain control with IV analgesia, IV electrolytes replacement and glucose control with insulin. Possible dc later today Quality Stroke Does the patient have a stroke diagnosis?: No VTE Prior VTE?: No VTE Risk Level:: Medical - moderate - high VTE Device Contraindication: Treatment Not Indicated VTE Drug Contraindication: N/A - Med Ordered
[2024-11-09 08:53] LABS: Glucose, Whole Blood 205 mg/dL (60-115)
[2024-11-09] MEDS: Midodrine HCl 5 MG TABLET PO (09:09)
[2024-11-09] MEDS: lamoTRIgine 100 MG TABLET 200 MG PO ×2 (09:09→20:55)
[2024-11-09] MEDS: risperiDONE 2 MG TABLET PO ×2 (09:09→20:55)
[2024-11-09] MEDS: Docusate Sodium 100 MG CAPSULE PO ×2 (09:09→20:55)
[2024-11-09] MEDS: Metoprolol Tartrate 25 MG TABLET PO ×2 (09:09→20:55)
[2024-11-09] MEDS: oxyCODONE HCl Immed Release 5 MG TABLET PO ×2 (09:19→18:12)
--- NOTE | 2024-11-09 10:00 | PC.NURSE ---
POC @ 0700 - 72. Encouraged pt to drink gingerale. Pt unable to drink and mostly sleeping. Rechecked POC @ 08 - 52. 1 Amp D50 given per protocol. POC 205 @ [address]. Dr[address] Moss notified. diet advanced to diabetic from [facility] [employer]. To decrease lantus dose from 25u to 15u. Encouraging PO intake.
[2024-11-09 11:07] LABS: Glucose, Whole Blood 153 mg/dL (60-115)
--- NOTE | 2024-11-09 14:28 | MHC.CM.PN ---
Per MD rounds patient may dc if she tolerates diet. Nurse reports that the patient vomited her lunch. No DC today. DP Home with family support and transport.
[2024-11-09 16:27] LABS: Glucose, Whole Blood 121 mg/dL (60-115)
[2024-11-09] MEDS: HYDROmorphone HCl 0.5 MG/0.5 ML SYRINGE IVPUSH ×2 (16:41→22:41)
[2024-11-09] MEDS: Enoxaparin Sodium 40 MG/0.4 ML SYRINGE SUBCUT (16:41)
[2024-11-09] MEDS: Metoclopramide HCl 10 MG/2 ML VIAL 5 MG IVPUSH (16:48)
[2024-11-09 19:57] LABS: Glucose, Whole Blood 219 mg/dL (60-115)
[2024-11-09] MEDS: Zolpidem Tartrate 5 MG TABLET 10 MG PO (20:55)
[2024-11-09] MEDS: Insulin Lispro 100 UNIT/ML 3 ML VIAL SUBCUT (20:56)
[2024-11-09] MEDS: Insulin Glargine,Hum.rec.anlog 100 UNIT/ML 10 ML VIAL 14 UNIT SUBCUT (20:56)
[2024-11-09 23:44] LABS: Glucose, Whole Blood 203 mg/dL (60-115)
[2024-11-10] MEDS: oxyCODONE HCl Immed Release 5 MG TABLET PO ×3 (01:06→14:26)
[2024-11-10] MEDS: Erythromycin Lactobionate 250 MG in 0.9 % Sodium Chloride 100 ML 100 MG IV ×3 (01:52→19:30)
--- NOTE | 2024-11-10 02:59 | PC.NURSE ---
message sent to hospitalist on duty of IVF reached renewal date and if wanted to renew, stated, no need to renew, can reevaluate in AM. Also last blood sugar value passed along of 203 at 2330. Will alert morning RN of this info and continue to monitor
[2024-11-10 03:29] VITALS: BP 115/56; PULSE 72; RESP 16; TEMP 36.5; O2SAT 95
[2024-11-10 03:36] LABS: Glucose, Whole Blood 99 mg/dL (60-115)
--- NOTE | 2024-11-10 04:02 | PC.NURSE ---
Previously received a call from Dr. Moss and he had adjusted this patients ISS(asked to give 2 units versus 4 units for POC of 219) and Lantus Order was decreased, he also wanted the patients POC blood sugar be checked between 2330-000, and also between 3512-7909. POC value at 0331 was 99 and hospitalist on duty was made aware. see previous note. will continue to monitor.
[2024-11-10] MEDS: HYDROmorphone HCl 0.5 MG/0.5 ML SYRINGE IVPUSH ×4 (04:42→23:01)
[2024-11-10] MEDS: Omeprazole 20 MG CAPSULE.DR PO ×2 (06:40→17:01)
[2024-11-10 07:18] LABS: Glucose, Whole Blood 66 mg/dL (60-115)
[2024-11-10 07:50] VITALS: BP 110/58; PULSE 87; RESP 16; TEMP 36; O2SAT 98
[2024-11-10 07:59] LABS: Glucose, Whole Blood 125 mg/dL (60-115)
[2024-11-10] MEDS: ondansetron HCL 4 MG/2 ML VIAL IVPUSH ×2 (08:20→17:01)
[2024-11-10] MEDS: Metoprolol Tartrate 25 MG TABLET PO ×2 (08:20→20:54)
[2024-11-10] MEDS: Midodrine HCl 5 MG TABLET PO (08:21)
[2024-11-10] MEDS: risperiDONE 2 MG TABLET PO ×2 (08:21→20:55)
[2024-11-10] MEDS: lamoTRIgine 100 MG TABLET 200 MG PO ×2 (08:21→20:55)
[2024-11-10] MEDS: Docusate Sodium 100 MG CAPSULE PO ×2 (08:21→20:55)
[2024-11-10] MEDS: 0.9 % Sodium Chloride Flush 3 ML SYRINGE IVFLUSH ×2 (08:22→17:02)
[2024-11-10] MEDS: Magnesium Oxide 400 MG TABLET 800 MG PO (08:28)
[2024-11-10 09:09] LABS: Blood Urea Nitrogen 5 mg/dL (9-16); Calcium 8.3 mg/dL (8.4-10.2); Creatinine Clr Calc Pharmacy 92.6; Estimated Glomerular Filt Rate > 60; Glucose Random 124 mg/dL (60-115); Magnesium 1.8 mg/dL (1.6-2.6)
[2024-11-10 09:18] LABS: Anion Gap 12 (12-20); Carbon Dioxide 31 mmol/L (22-29); Chloride 102 mmol/L (96-108); Sodium 142 mmol/L (135-145)
[2024-11-10 10:57] LABS: Glucose, Whole Blood 157 mg/dL (60-115)
[2024-11-10] MEDS: Metoclopramide HCl 10 MG/2 ML VIAL 5 MG IVPUSH (11:06)
[2024-11-10] MEDS: Potassium Chloride/H20 10 MEQ/100 ML PIGGYBACK 100 MEQ IV ×4 (12:10→18:15)
[2024-11-10] MEDS: Dextrose 5 % and 0.9 % NaCl 1,000 ML 80 ML IVCONT (14:26)
--- NOTE | 2024-11-10 14:48 | P.PNIM_ITS ---
Subjective Subjective Date of Service: 11/10/24 Interval History: Gastroparesis Review of Systems no vomiting has nausea ,some abd discomfort no fevers Physical Exam 2 Vital Signs: Vital Signs: Last Vital Signs Temp 96.8 F 11/10/24 07:50 Pulse 87 11/10/24 07:50 Resp 16 11/10/24 07:50 BP 110/58 L 11/10/24 07:50 Pulse Ox 98 11/10/24 07:50 O2 Del Method Room Air 11/10/24 07:50 BMI result Body Mass Index 26.1 General: AO X 3, no acute distress Resp: CTA bilateral CVS: S1,S2,RRR GI: +BS, NT, no distention Skin: No rash Neuro: motor grossly intact Psych: appropriate affect Objective Data Active Medications Acetaminophen (Acetaminophen 325 Mg Tablet) 650 mg PO Q6H PRN PRN Reason: Pain, Mild 1-3,fever,headache Calcium Carbonate (Calcium Carbonate 750 Mg Tab.Chew) 750 mg PO Q4H PRN PRN Reason: Heartburn Heparin Sodium (Porcine) 50 (units/ Sodium Chloride 5 ml) 0 units IVFLUSH QSHIFT PRN PRN Reason: Infusion Center Dextrose (Dextrose 50 % 25 Gm/50 Ml Syringe) 25 gm IVPUSH Q15M PRN; Protocol PRN Reason: per Hypoglycemia Standing Ord. Last Admin: 11/09/24 08:09 Dose: 25 gm Documented By: LAURA Docusate Sodium (Docusate Sodium 100 Mg Capsule) 100 mg PO BID [facility] Last Admin: 11/10/24 08:21 Dose: 100 mg Documented By: LAURA Enoxaparin Sodium (Enoxaparin Sodium 40 Mg/0.4 Ml Syringe) 40 mg SUBCUT Q24H [facility] Last Admin: 11/09/24 16:41 Dose: 40 mg Documented By: LAURA Glucose (Glucose Gel 15 Gm Gel..Gram.) 15 gm PO Q15M PRN; Protocol PRN Reason: per Hypoglycemia Standing Ord. Hydromorphone HCl (Hydromorphone Hcl 0.5 Mg/0.5 Ml Syringe) 0.5 mg IVPUSH Q6H PRN; Protocol PRN Reason: Pain, Severe (Pain Scale 7-10) Last Admin: 11/10/24 11:07 Dose: 0.5 mg Documented By: LAURA Erythromycin Lactobionate 250 (mg/ Sodium Chloride) 100 mls @ 100 mls/hr IV Q8H [facility] Last Infusion: 11/10/24 12:24 Dose: Infused Documented By: LAURA Dextrose/Sodium Chloride (D5ns) 1,000 mls @ 80 mls/hr IVCONT .[id number] [facility] Last Admin: 11/10/24 14:26 Dose: 80 mls/hr Documented By: LAURA Insulin Glargine (Insulin Glargine,Hum.Rec.Anlog 100 Unit/Ml 10 Ml Vial) 14 unit SUBCUT BEDTIME [facility] Last Admin: 11/09/24 20:56 Dose: 14 unit Documented By: DON Insulin Human Lispro (Insulin Lispro 100 Unit/Ml 3 Ml Vial) 0 unit SUBCUT QIDACHS [facility]; Protocol Last Admin: 11/10/24 12:20 Dose: Not Given Documented By: LAURA Non-Admin Reason: poor po Lamotrigine (Lamotrigine 100 Mg Tablet) 200 mg PO BID [facility] Last Admin: 11/10/24 08:21 Dose: 200 mg Documented By: LAURA Lorazepam (Lorazepam 1 Mg Tablet) 1 mg PO TID PRN PRN Reason: Anxiety Last Admin: 11/09/24 21:09 Dose: 1 mg Documented By: DON Magnesium Hydroxide (Milk Of Magnesia 30 Ml Oral.Susp) 30 ml PO DAILY PRN PRN Reason: Constipation Magnesium Oxide (Magnesium Oxide 400 Mg Tablet) 800 mg PO DAILY [facility] Last Admin: 11/10/24 08:28 Dose: 400 mg Documented By: LAURA Comments: refused 2nd pill Melatonin (Melatonin 3 Mg Tablet) 6 mg PO BEDTIME PRN PRN Reason: Insomnia Metoclopramide HCl (Metoclopramide Hcl 10 Mg/2 Ml Vial) 5 mg IVPUSH Q6H PRN PRN Reason: Nausea and Vomiting Last Admin: 11/10/24 11:06 Dose: 5 mg Documented By: LAURA Metoprolol Tartrate (Metoprolol Tartrate 25 Mg Tablet) 25 mg PO BID [facility]; Protocol Last Admin: 11/10/24 08:20 Dose: 25 mg Documented By: LAURA Midodrine (Midodrine Hcl 5 Mg Tablet) 5 mg PO DAILY [facility] Last Admin: 11/10/24 08:21 Dose: 5 mg Documented By: LAURA Naloxone HCl (Naloxone Hcl 0.4 Mg/Ml Vial) 0.04 mg IVPUSH Q5M PRN PRN Reason: Excessive sedation or RR < 8 Omeprazole (Omeprazole 20 Mg Capsule.Dr) 20 mg PO BID@0630,1630 [facility] Last Admin: 11/10/24 06:40 Dose: 20 mg Documented By: DON Ondansetron HCl (Ondansetron Hcl 4 Mg/2 Ml Vial) 4 mg IVPUSH Q8H PRN PRN Reason: Nausea and Vomiting Last Admin: 11/10/24 08:20 Dose: 4 mg Documented By: LAURA Oxycodone HCl (Oxycodone Hcl Immed Release 5 Mg Tablet) 5 mg PO Q6H PRN PRN Reason: Pain, Moderate(Pain Scale 4-6) Last Admin: 11/10/24 14:26 Dose: 5 mg Documented By: LAURA Polyethylene Glycol (Polyethylene Glycol 3350 17 Gm Powd.Pack) 17 gm PO DAILY PRN PRN Reason: Constipation Risperidone (Risperidone 2 Mg Tablet) 2 mg PO BID [facility] Last Admin: 11/10/24 08:21 Dose: 2 mg Documented By: LAURA Sodium Chloride (0.9 % Sodium Chloride Flush 3 Ml Syringe) 3 ml IVFLUSH QSHIFT [facility] Last Admin: 11/10/24 08:22 Dose: 3 ml Documented By: LAURA Zolpidem Tartrate (Zolpidem Tartrate 5 Mg Tablet) 10 mg PO BEDTIME [facility] Last Admin: 11/09/24 20:55 Dose: 10 mg Documented By: DON Labs 11/07/24 08:06 11/10/24 08:03 Labs: Laboratory Results - last 24 hr 11/09/24 11/09/24 11/09/24 16:17 19:19 23:37 Anion Gap Estim Creat Clear Calc Estimated GFR POC Glucose 121 H 219 H 203 H Random Glucose Calcium Magnesium 11/10/24 11/10/24 11/10/24 03:31 07:12 07:55 Anion Gap Estim Creat Clear Calc Estimated GFR POC Glucose 99 66 125 H Random Glucose Calcium Magnesium 11/10/24 11/10/24 08:03 10:53 Anion Gap 12 Estim Creat Clear Calc 92.6 Estimated GFR > 60 POC Glucose 157 H Random Glucose 124 H Calcium 8.3 L Magnesium 1.8 Assessment and Plan (1) Abdominal pain: Status: Acute (2) Type 1 diabetes: Status: Acute (3) Nausea and vomiting: Status: Acute (4) Diabetic gastroparesis: Status: Acute Plan 49 year old female with past medical history of type 1 diabetes mellitus (on insulin pump), diabetic gastroparesis, and cyclical vomiting here with with nausea and vomitting, abdominal pain, clinical presentation c/w with cyclical vomitting syndrome and gastroparesis Gastroparesis/cyclic vomiting syndrome with intractable abdominal pain and vomiting and diarrhea Zofran and Reglan PRN for nausea and vomitting IVF w D5LR EGD 11/07 EGD Impressions:?Normal esophagus,Gastritis (biopsy),Pyloric stenosis (dilation),Normal duodenum (biopsy)?? Recommendations:?? Follow biopsy results. Our office will call or send a letter with results within 7-10 days. Repeat EGD as outpatient in 6-8 weeks for pyloric stenosis/pylorospasm If no improvement in sx after next dilation, may need to be referred for revision of G-POEM. plan: continue ppi,erythro, wean off Narc advance diet Hypokalemia--IV replacement, PO if tolerate repleted ,moniter bmp. Anxiety :Lorazepam PRN Diabetes type 1, hypoglycemia d/t not eating fs was in 60's this morning -improving Insulin pump not available encouraged for po intake ,added d5ns Chronic anemia. stable H&H. Mood disorder continue Risperidone and LAmotrigine once med rec done DVT prophylaxis: Lovenox Code status: Full ongoing need hospitalization overnight for intractable nausea\vomiting treatment with antiemetic therapy, pain control with IV analgesia, IV electrolytes replacement and glucose control with insulin.unable to take po yet and fs flacutaing Quality Stroke Does the patient have a stroke diagnosis?: No VTE Prior VTE?: No VTE Risk Level:: Medical - moderate - high VTE Device Contraindication: Treatment Not Indicated VTE Drug Contraindication: N/A - Med Ordered
[2024-11-10 14:58] VITALS: BP 138/71; PULSE 72; RESP 15; TEMP 36.9; O2SAT 96
[2024-11-10 16:41] LABS: Glucose, Whole Blood 295 mg/dL (60-115)
[2024-11-10] MEDS: Enoxaparin Sodium 40 MG/0.4 ML SYRINGE SUBCUT (17:01)
[2024-11-10] MEDS: Insulin Lispro 100 UNIT/ML 3 ML VIAL SUBCUT ×2 (17:12→20:55)
--- NOTE | 2024-11-10 17:41 | PC.NURSE ---
Addendum entered by Debbie Kong RN 11/10/24 18:23: Ended up eating 75% of dinner. Original Note: AM POC 66. Pt able to drink 8oz apple juice. POC rechecked after 1/2 hour-125. K 3.0. 210 meq IV Kcl x2 ordered and given. Pt unable to tolerate lunch. 2 more 10meq KCL given. Able to eat @ 25% of dinner. Medicated with antinausea medication prior to meals. Encouraged small bites and eating slow. Continues to report 9/10 abdominal pain. Medicated with oxycodone alternating with dilaudid with good effect.
[2024-11-10 19:09] VITALS: BP 121/60; PULSE 86; RESP 18; TEMP 36; O2SAT 99
[2024-11-10 19:38] LABS: Glucose, Whole Blood 283 mg/dL (60-115)
[2024-11-10 20:42] LABS: Glucose, Whole Blood 277 mg/dL (60-115)
[2024-11-10] MEDS: Zolpidem Tartrate 5 MG TABLET 10 MG PO (20:55)
[2024-11-10] MEDS: Insulin Glargine,Hum.rec.anlog 100 UNIT/ML 10 ML VIAL 14 UNIT SUBCUT (20:56)
[2024-11-11] MEDS: oxyCODONE HCl Immed Release 5 MG TABLET PO ×3 (02:26→21:18)
[2024-11-11] MEDS: Erythromycin Lactobionate 250 MG in 0.9 % Sodium Chloride 100 ML 100 MG IV ×3 (02:26→16:49)
[2024-11-11 03:36] VITALS: BP 104/54; PULSE 81; RESP 18; TEMP 37; O2SAT 94
--- NOTE | 2024-11-11 03:47 | PC.NURSE ---
Patients antibiotic that was scheduled for 1800 previous shift was unable to be administered due to iv medications ordered. Pharmacy alerted if wishing to change times for this bid writer, but they answered okay to start at this late time of 1930, therefore, time of administration is later than ordered.
[2024-11-11] MEDS: Omeprazole 20 MG CAPSULE.DR PO ×2 (06:16→16:49)
[2024-11-11] MEDS: HYDROmorphone HCl 0.5 MG/0.5 ML SYRINGE IVPUSH ×3 (06:20→19:45)
[2024-11-11 07:52] VITALS: BP 124/59; PULSE 83; RESP 16; TEMP 36.3; O2SAT 99
[2024-11-11 07:56] LABS: Glucose, Whole Blood 227 mg/dL (60-115)
[2024-11-11] MEDS: Docusate Sodium 100 MG CAPSULE PO ×2 (08:12→21:12)
[2024-11-11] MEDS: Insulin Lispro 100 UNIT/ML 3 ML VIAL SUBCUT ×3 (08:12→21:13)
[2024-11-11] MEDS: ondansetron HCL 4 MG/2 ML VIAL IVPUSH ×3 (08:12→16:48)
[2024-11-11] MEDS: Magnesium Oxide 400 MG TABLET 800 MG PO (08:12)
[2024-11-11] MEDS: Metoprolol Tartrate 25 MG TABLET PO ×2 (08:13→21:11)
[2024-11-11] MEDS: risperiDONE 2 MG TABLET PO ×2 (08:13→21:11)
[2024-11-11] MEDS: Midodrine HCl 5 MG TABLET PO (08:13)
[2024-11-11] MEDS: 0.9 % Sodium Chloride Flush 3 ML SYRINGE IVFLUSH ×2 (08:13→16:52)
[2024-11-11] MEDS: lamoTRIgine 100 MG TABLET 200 MG PO ×2 (08:13→21:12)
[2024-11-11 09:09] LABS: Anion Gap 8 (12-20); Blood Urea Nitrogen 7 mg/dL (9-16); Calcium 8.2 mg/dL (8.4-10.2); Carbon Dioxide 30 mmol/L (22-29); Chloride 103 mmol/L (96-108); Creatinine Clr Calc Pharmacy 92.6; Estimated Glomerular Filt Rate > 60; Glucose Random 275 mg/dL (60-115); Potassium 3.6 mmol/L (3.3-5.1); Sodium 137 mmol/L (135-145)
--- NOTE | 2024-11-11 11:12 | MHC.CM.PN ---
Per MD rounds if Patient tolerates diet she can discharge to home. DP Home with family assist. She may need [facility] to assist with transportation home.
[2024-11-11 11:40] LABS: Glucose, Whole Blood 144 mg/dL (60-115)
[2024-11-11] MEDS: Metoclopramide HCl 10 MG/2 ML VIAL 5 MG IVPUSH (11:50)
--- NOTE | 2024-11-11 15:08 | P.PNIM_ITS ---
Subjective Subjective Date of Service: 11/11/24 Interval History: Gastroparesis Review of Systems still has intermittent vomiting unable to tolerate diet yet Review of Systems: Yes all other systems are reviewed and are negative Physical Exam 2 Vital Signs: Vital Signs: Last Vital Signs Temp 97.3 F 11/11/24 07:52 Pulse 83 11/11/24 07:52 Resp 16 11/11/24 07:52 BP 124/59 L 11/11/24 07:52 Pulse Ox 99 11/11/24 07:52 O2 Del Method Room Air 11/11/24 07:52 BMI result Body Mass Index 26.1 General: AO X 3, no acute distress Resp: CTA bilateral CVS: S1,S2,RRR GI: +BS, NT, no distention Skin: No rash Neuro: motor grossly intact Psych: appropriate affect Objective Data Active Medications Acetaminophen (Acetaminophen 325 Mg Tablet) 650 mg PO Q6H PRN PRN Reason: Pain, Mild 1-3,fever,headache Calcium Carbonate (Calcium Carbonate 750 Mg Tab.Chew) 750 mg PO Q4H PRN PRN Reason: Heartburn Heparin Sodium (Porcine) 50 (units/ Sodium Chloride 5 ml) 0 units IVFLUSH QSHIFT PRN PRN Reason: Infusion Center Dextrose (Dextrose 50 % 25 Gm/50 Ml Syringe) 25 gm IVPUSH Q15M PRN; Protocol PRN Reason: per Hypoglycemia Standing Ord. Last Admin: 11/09/24 08:09 Dose: 25 gm Documented By: LAURA Docusate Sodium (Docusate Sodium 100 Mg Capsule) 100 mg PO BID [facility] Last Admin: 11/11/24 08:12 Dose: 100 mg Documented By: KALIA Enoxaparin Sodium (Enoxaparin Sodium 40 Mg/0.4 Ml Syringe) 40 mg SUBCUT Q24H [facility] Last Admin: 11/10/24 17:01 Dose: 40 mg Documented By: LAURA Glucose (Glucose Gel 15 Gm Gel..Gram.) 15 gm PO Q15M PRN; Protocol PRN Reason: per Hypoglycemia Standing Ord. Hydromorphone HCl (Hydromorphone Hcl 0.5 Mg/0.5 Ml Syringe) 0.5 mg IVPUSH Q6H PRN; Protocol PRN Reason: Pain, Severe (Pain Scale 7-10) Last Admin: 11/11/24 13:28 Dose: 0.5 mg Documented By: KALIA Erythromycin Lactobionate 250 (mg/ Sodium Chloride) 100 mls @ 100 mls/hr IV Q8H [facility] Last Infusion: 11/11/24 12:02 Dose: Infused Documented By: KALIA Dextrose/Sodium Chloride (D5ns) 1,000 mls @ 60 mls/hr IVCONT .[id number] [facility] Last Admin: 11/11/24 02:32 Dose: Not Given Documented By: DON Non-Admin Reason: IV Running Insulin Glargine (Insulin Glargine,Hum.Rec.Anlog 100 Unit/Ml 10 Ml Vial) 14 unit SUBCUT BEDTIME [facility] Last Admin: 11/10/24 20:56 Dose: 14 unit Documented By: DON Insulin Human Lispro (Insulin Lispro 100 Unit/Ml 3 Ml Vial) 0 unit SUBCUT QIDACHS [facility]; Protocol Last Admin: 11/11/24 11:33 Dose: Not Given Documented By: KALIA Non-Admin Reason: No Insulin Coverage Lamotrigine (Lamotrigine 100 Mg Tablet) 200 mg PO BID [facility] Last Admin: 11/11/24 08:13 Dose: 200 mg Documented By: KALIA Lorazepam (Lorazepam 1 Mg Tablet) 1 mg PO TID PRN PRN Reason: Anxiety Last Admin: 11/09/24 21:09 Dose: 1 mg Documented By: DON Magnesium Hydroxide (Milk Of Magnesia 30 Ml Oral.Susp) 30 ml PO DAILY PRN PRN Reason: Constipation Magnesium Oxide (Magnesium Oxide 400 Mg Tablet) 800 mg PO DAILY [facility] Last Admin: 11/11/24 08:12 Dose: 800 mg Documented By: KALIA Melatonin (Melatonin 3 Mg Tablet) 6 mg PO BEDTIME PRN PRN Reason: Insomnia Metoclopramide HCl (Metoclopramide Hcl 10 Mg/2 Ml Vial) 5 mg IVPUSH Q6H PRN PRN Reason: Nausea and Vomiting Last Admin: 11/11/24 11:50 Dose: 5 mg Documented By: KALIA Metoprolol Tartrate (Metoprolol Tartrate 25 Mg Tablet) 25 mg PO BID [facility]; Protocol Last Admin: 11/11/24 08:13 Dose: 25 mg Documented By: KALIA Midodrine (Midodrine Hcl 5 Mg Tablet) 5 mg PO DAILY [facility] Last Admin: 11/11/24 08:13 Dose: 5 mg Documented By: KALIA Naloxone HCl (Naloxone Hcl 0.4 Mg/Ml Vial) 0.04 mg IVPUSH Q5M PRN PRN Reason: Excessive sedation or RR < 8 Omeprazole (Omeprazole 20 Mg Capsule.Dr) 20 mg PO BID@0630,1630 [facility] Last Admin: 11/11/24 06:16 Dose: 20 mg Documented By: DON Ondansetron HCl (Ondansetron Hcl 4 Mg/2 Ml Vial) 4 mg IVPUSH Q8H PRN PRN Reason: Nausea and Vomiting Last Admin: 11/11/24 08:12 Dose: 4 mg Documented By: KALIA Oxycodone HCl (Oxycodone Hcl Immed Release 5 Mg Tablet) 5 mg PO Q8H PRN PRN Reason: Pain, Moderate(Pain Scale 4-6) Last Admin: 11/11/24 10:42 Dose: 5 mg Documented By: JAGJIT Polyethylene Glycol (Polyethylene Glycol 3350 17 Gm Powd.Pack) 17 gm PO DAILY PRN PRN Reason: Constipation Risperidone (Risperidone 2 Mg Tablet) 2 mg PO BID [facility] Last Admin: 11/11/24 08:13 Dose: 2 mg Documented By: KALIA Sodium Chloride (0.9 % Sodium Chloride Flush 3 Ml Syringe) 3 ml IVFLUSH QSHIFT [facility] Last Admin: 11/11/24 08:13 Dose: 3 ml Documented By: KALIA Zolpidem Tartrate (Zolpidem Tartrate 5 Mg Tablet) 10 mg PO BEDTIME [facility] Last Admin: 11/10/24 20:55 Dose: 10 mg Documented By: DON Labs 11/07/24 08:06 11/11/24 08:35 Labs: Laboratory Results - last 24 hr 11/10/24 11/10/24 11/10/24 16:30 19:18 20:39 Anion Gap Estim Creat Clear Calc Estimated GFR POC Glucose 295 H 283 H 277 H Random Glucose Calcium 11/11/24 11/11/24 11/11/24 07:53 08:35 11:29 Anion Gap 8 L Estim Creat Clear Calc 92.6 Estimated GFR > 60 POC Glucose 227 H 144 H Random Glucose 275 H Calcium 8.2 L Assessment and Plan (1) Abdominal pain: Status: Acute (2) Type 1 diabetes: Status: Acute (3) Nausea and vomiting: Status: Acute (4) Diabetic gastroparesis: Status: Acute Plan 49 year old female with past medical history of type 1 diabetes mellitus (on insulin pump), diabetic gastroparesis, and cyclical vomiting here with with nausea and vomiting, abdominal pain, clinical presentation c/w with cyclical vomitting syndrome and gastroparesis Gastroparesis/cyclic vomiting syndrome with intractable abdominal pain and vomiting and diarrhea Zofran and Reglan PRN for nausea and vomitting IVF w D5LR EGD 11/07 EGD Impressions:?Normal esophagus,Gastritis (biopsy),Pyloric stenosis (dilation),Normal duodenum (biopsy)??. Recommendations:?? Follow biopsy results. Our office will call or send a letter with results within 7-10 days. Repeat EGD as outpatient in 6-8 weeks for pyloric stenosis/pylorospasm If no improvement in sx after next dilation, may need to be referred for revision of G-POEM. plan: continue ppi,erythro, wean off Narc advance diet Hypokalemia--IV replacement, PO if tolerate repleted ,moniter bmp. Anxiety :Lorazepam PRN Diabetes type 1, hypoglycemia d/t not eating fs was in 60's this morning -improving Insulin pump not available encouraged for po intake ,added d5ns Chronic anemia. stable H&H. Mood disorder continue Risperidone and LAmotrigine once med rec done DVT prophylaxis: Lovenox Code status: Full ongoing need hospitalization overnight for intractable nausea\vomiting treatment with antiemetic therapy, pain control with IV analgesia, IV electrolytes replacement and glucose control with insulin.unable to take po yet and fs flacutaing Quality Stroke Does the patient have a stroke diagnosis?: No VTE Prior VTE?: No VTE Risk Level:: Medical - moderate - high VTE Device Contraindication: Treatment Not Indicated VTE Drug Contraindication: N/A - Med Ordered
[2024-11-11 16:00] VITALS: BP 118/61; PULSE 75; RESP 16; TEMP 37; O2SAT 97
[2024-11-11 16:17] LABS: Glucose, Whole Blood 238 mg/dL (60-115)
[2024-11-11] MEDS: Enoxaparin Sodium 40 MG/0.4 ML SYRINGE SUBCUT (16:49)
[2024-11-11 19:31] VITALS: BP 117/70; PULSE 89; RESP 18; TEMP 36.6; O2SAT 99
[2024-11-11 19:45] VITALS: RESP 18
[2024-11-11 20:42] LABS: Glucose, Whole Blood 315 mg/dL (60-115)
[2024-11-11 21:11] VITALS: BP 112/65; PULSE 82
[2024-11-11] MEDS: Zolpidem Tartrate 5 MG TABLET 10 MG PO (21:12)
[2024-11-11] MEDS: Insulin Glargine,Hum.rec.anlog 100 UNIT/ML 10 ML VIAL 14 UNIT SUBCUT (21:12)
[2024-11-12] MEDS: HYDROmorphone HCl 0.5 MG/0.5 ML SYRINGE IVPUSH (01:45)
[2024-11-12] MEDS: Erythromycin Lactobionate 250 MG in 0.9 % Sodium Chloride 100 ML 100 MG IV ×2 (01:50→09:49)
[2024-11-12] MEDS: ondansetron HCL 4 MG/2 ML VIAL IVPUSH (02:52)
[2024-11-12] MEDS: Dextrose 5 % and 0.9 % NaCl 1,000 ML 60 ML IVCONT (02:56)
[2024-11-12 03:49] VITALS: BP 117/60; PULSE 80; RESP 20; TEMP 36.7; O2SAT 95
[2024-11-12] MEDS: oxyCODONE HCl Immed Release 5 MG TABLET PO (06:15)
[2024-11-12] MEDS: Omeprazole 20 MG CAPSULE.DR PO (06:15)
[2024-11-12 07:34] LABS: Glucose, Whole Blood 323 mg/dL (60-115)
[2024-11-12] MEDS: Insulin Lispro 100 UNIT/ML 3 ML VIAL SUBCUT ×2 (07:57→11:41)
[2024-11-12] MEDS: lamoTRIgine 100 MG TABLET 200 MG PO (07:58)
[2024-11-12] MEDS: risperiDONE 2 MG TABLET PO (07:58)
[2024-11-12] MEDS: Magnesium Oxide 400 MG TABLET 800 MG PO (07:58)
[2024-11-12] MEDS: Docusate Sodium 100 MG CAPSULE PO (07:58)
[2024-11-12 08:00] VITALS: BP 106/51; PULSE 94; RESP 16; TEMP 36.8; O2SAT 96
[2024-11-12] MEDS: Metoprolol Tartrate 25 MG TABLET PO (08:02)
[2024-11-12] MEDS: Midodrine HCl 5 MG TABLET PO (08:02)
[2024-11-12] MEDS: LORazepam 1 MG TABLET PO (08:03)
[2024-11-12 11:36] LABS: Glucose, Whole Blood 245 mg/dL (60-115)
--- NOTE | 2024-11-12 11:57 | P.DS_ITS ---
DS: Providers Provider Date of Service: 11/12/24 Date of admission: 11/04/24 14:58 Date of discharge: 11/12/24 Primary care physician: Yulisa Avila MD Consults: 11/06/24 08:00 Consult to Gastroenterology Routine Consulting Provider: Kasia Fletcher Reason for consultation: recurrent abd pain Has provider been notified: No Attending physician on discharge: Helen oRsario Discharging clinician: Helen Rosario DS: Diagnosis Discharge Diagnosis (1) Abdominal pain: Status: Acute (2) Type 1 diabetes: Status: Acute (3) Nausea and vomiting: Status: Acute (4) Diabetic gastroparesis: Status: Acute DS: Summary Hospital Course Hospital Course: HPI:49 year old female with past medical history of type 1 diabetes mellitus--has insulin pump, diabetic gastroparesis, and 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 She presents to the ED with upper abdominal pain of severe intensity, intractable per nausea, vomiting, and unable to tolerate oral intake. She has been smoking marijuana on regular basis. Her presentation is similar to past admissions, most recently last month. She is tachycardic to 114, she has normal bicab and no evidence of DKA, blood sugar is over 300, urine drug screen noted for marijuana. She is given IVF and IV dilaudid for pain, and is being admitted in light of peristent nausea and vomitting and not able to tolerate oral intake and at high risk to go into DKA. Hospital course: 49 year old female with past medical history of type 1 diabetes mellitus (on insulin pump), diabetic gastroparesis, and cyclical vomiting here with with nausea and vomiting, abdominal pain, clinical presentation c/w with cyclical vomitting syndrome and gastroparesis: Patient was admitted for gastroparesis and cyclic vomiting syndrome: Started on antiemetics/Reglan, IV hydration-seen by GI had EGD done:Normal esophagus,Gastritis (biopsy),Pyloric stenosis (dilation),Normal duodenum (biopsy). : With the above management patient seems to be improved-tolerating diet, going home with p.o. Zofran, completed 3 days of iv erythromycin. patient will need to follow up with Gi with biopsy results , follow up with dr Fletcher 's office.Repeat EGD as outpatient in 6-8 weeks for pyloric stenosis/pylorospasm patient need to follow up with [facility] for revision of G-POEM. Hypokalemia: repleted and resolved. Diabetes: Fingersticks were initially fluctuating due to low p.o. intake but now fingersticks are better. Continue home insulin regimen. plan: continue ppi,zofran prn.Small particle diet . Follow biopsy results. Dr Fletcher with results within 7-10 days. Repeat EGD as outpatient in 6-8 weeks for pyloric stenosis/pylorospasm Consider outpatient follow-up in [facility] for revision of G-POEM. Small particle diet ,Avoid NSAIDs and opiate,Continue PPI . Above management discussed with the patient detail length she understand and in agreement with the above plan, time spent 40 minute. Staff was present during the conversation. Time Attestation Total time managing care of this patient today: 40 mintues. Discharge Coordination Time (in mins): 40 min Quality: Safe Use of Opioids Does Pt have an Active Cancer Diagnosis on the Problem List?: No Quality: Stroke Does the patient have a stroke diagnosis?: No Physical Exam Vital Signs: Vital Signs: Last Vital Signs Temp 98.3 F 11/12/24 08:00 Pulse 94 11/12/24 08:00 Resp 16 11/12/24 08:00 BP 106/51 L 11/12/24 08:00 Pulse Ox 96 11/12/24 08:00 O2 Del Method Room Air 11/12/24 08:00 BMI result Body Mass Index 26.1 General: AO X 3, no acute distress Resp:air entry fair , no rales CVS: S1,S2,RRR GI: +BS, NT, no distention Skin: No rash Neuro: motor grossly intact Psych: appropriate affect DS: Data Data Completed and Pending Completed studies during hospitalization [Text1]: Pending at discharge 11/07/24 09:45 Surgical [PTH] Routine Procedures Dilation of Stomach, Pylorus with Intraluminal Device, Percutaneous Endoscopic Approach (09/17/24) Excision of Esophagus, Via Natural or Artificial Opening Endoscopic, Diagnostic (09/17/24) Excision of Stomach, Pylorus, Via Natural or Artificial Opening Endoscopic, Diagnostic (09/17/24) Labs on day of discharge: Laboratory Results - last 24 hr 11/11/24 11/11/2425 16:08 20:38 07:28 POC Glucose 238 H 315 H 323 H 11/12/24 11:25 POC Glucose 245 H Discharge Plan Discharge Anticipated Discharge Date/Time: 11/12/24 11:35 Patient Disposition: Home, Self-Care Discharge Diagnosis: Gastroparesis/cyclic vomiting syndrome with intractable abdominal pain and vomiting and diarrhea Referrals: Yulisa Dyson MD [Primary Care Provider] - 1 Week Discharge Medications: New ondansetron 4 mg tablet,disintegrating 4 mg PO Q8H PRN (Reason: nausea and vomiting) Qty: 14 0RF Continued midodrine 5 mg tablet 5 mg PO DAILY Qty: 90 2RF metoprolol tartrate 25 mg tablet 25 mg PO BID Qty: 180 1RF lorazepam 1 mg Tablet 1 mg PO TID PRN (Reason: Anxiety) lamotrigine 200 mg Tablet 200 mg PO BID zolpidem 10 mg Tablet 10 mg PO BEDTIME risperidone 2 mg tablet 2 mg PO BID insulin aspart U-100 [Novolog U-100 Insulin aspart] 100 unit/mL solution 0 - 100 unit subcut DAILY Rx Instructions: insulin pump docusate sodium 100 mg capsule 100 mg PO BID insulin glargine [Lantus Solostar U-100 Insulin] 100 unit/mL (3 mL) insulin pen See Rx Instructions .ROUTE .COMPLEX PRN (Reason: when pump not working) Rx Instructions: Patient only utilizes when pump is not working. Patient has a Tandem pump. Glucagon Emergency Kit (human) 1 mg recon soln 1 mg IM Q15M PRN (Reason: Hypoglycemia) (DME) subcutaneous insulin pump Misc MISCELLANEOUS Rx Instructions: *Pump Brand is Tandem* Uses Novolog 0-100 units with pump pantoprazole 40 mg tablet,delayed release (DR/EC) 40 mg PO BID@0630,1630 (DME) Dexcom G6 Sensor Device 1 ea MISCELLANEOUS Q10D (DME) Dexcom G6 Transmitter Device MISCELLANEOUS Discharge Orders: Discharge Order (Routine); Ordered 11/12/24 Ordered By: Helen Rosario Diet: Advance to usual diet Activity on Discharge: As tolerated Stand Alone Forms: Patient Portal Discharge page Print Language: [place]an Care Plan Goals: 49 year old female with past medical history of type 1 diabetes mellitus (on insulin pump), diabetic gastroparesis, and cyclical vomiting here with with nausea and vomiting, abdominal pain, clinical presentation c/w with cyclical vomitting syndrome and gastroparesis: Patient was admitted for gastroparesis and cyclic vomiting syndrome: Started on antiemetics/Reglan, IV hydration-seen by GI had EGD done:Normal esophagus,Gastritis (biopsy),Pyloric stenosis (dil ation),Normal duodenum (biopsy). : With the above management patient seems to be improved-tolerating diet, going home with p.o. Zofran, completed 3 days of iv erythromycin. patient will need to follow up with Gi with biopsy results , follow up with dr Fletcher 's office.Repeat EGD as outpatient in 6-8 weeks for pyloric stenosis/pylorospasm patient need to follow up with [facility] for revision of G-POEM. Hypokalemia: repleted and resolved. Diabetes: Fingersticks were initially fluctuating due to low p.o. intake but now fingersticks are better. Continue home insulin regimen. Health Concerns: continue ppi,zofran prn.Small particle diet Follow-up with GI with biopsy results and also repeat EGD as well as consider outpatient follow-up in [facility] for G-POEM. If new symptoms-go to nearest emergency room. Plan of Treatment: as above. Assessment: As above.
--- NOTE | 2024-11-12 12:13 | MHC.CM.PN ---
IMM 11/12/24 Patient is discharged to home today selfcare. Transportation has been arranged with [facility] [place] [facility] transportation Dept. The patient will discharge from the front loby. The ride is scheduled for 1:45pm order picker/assembler. The nurse and patient are aware of the DP and discharge time. A transportation voucher has been provided for the shuttle.
== END 2024-11-12 13:00 | disposition home or self-care (01) | DRG 74 ==
LOC: HO.ED 13:47 → HO.EDOVER 15:13 → HO.S3 15:35
PROVIDERS: Internal Medicine; Student in an Organized Health Care Education/Training Program; Admitting Provider Internal Medicine; Emergency Provider Emergency Medicine; PCP Internal Medicine; Visit Provider Internal Medicine
PROC: 0DB98ZX Excision of Duodenum, Via Natural or Artificial Opening Endoscopic, Diagnostic (ICD-10-PCS; principal; 2024-11-07 09:00)
DX: E10.43 Type 1 diabetes mellitus with diabetic autonomic (poly)neuropathy (principal); K31.1 Adult hypertrophic pyloric stenosis; K29.70 Gastritis, unspecified, without bleeding; K31.84 Gastroparesis; E87.6 Hypokalemia; F41.9 Anxiety disorder, unspecified; D63.8 Anemia in other chronic diseases classified elsewhere; E10.649 Type 1 diabetes mellitus with hypoglycemia without coma; E10.65 Type 1 diabetes mellitus with hyperglycemia; F12.90 Cannabis use, unspecified, uncomplicated; R11.2 Nausea with vomiting, unspecified; Z96.41 Presence of insulin pump (external) (internal); Z20.822 Contact with and (suspected) exposure to COVID-19; Z87.891 Personal history of nicotine dependence; Z79.899 Other long term (current) drug therapy
CPT/HCPCS: 0241U; 36415; 71045; 80048; 80053; 80307; 81001; 81003; 82947; 83735; 84484; 85025; 85027; 86140; 88305; 88313; 88342; 93005; 99285; C1726; J1171; J1200; J1364; J1630; J1642; J1650; J2003; J2250; J2405; J2704; J2765; J3475; J3480; J7120

== ENCOUNTER → 2024-11-04 05:15 | Outpatient (BNV) | payer OTHER, SELFPAY | PROVIDERS: Admitting Provider Internal Medicine; Emergency Provider Emergency Medicine; PCP Internal Medicine; Visit Provider Internal Medicine | DX: R00.0 Tachycardia, unspecified (principal) | CPT/HCPCS: 93010 ==

== ENCOUNTER → 2024-11-04 05:20 | Outpatient (BNV) | payer OTHER, SELFPAY | PROVIDERS: Emergency Provider Emergency Medicine; PCP Internal Medicine; Visit Provider Radiology Vascular & Interventional Radiology | DX: R07.9 Chest pain, unspecified (principal) | CPT/HCPCS: 71045 ==

== ENCOUNTER 2024-11-04 14:58 | Outpatient (BNV) | payer OTHER, SELFPAY | END 2024-11-07 11:45 | PROVIDERS: Admitting Provider Internal Medicine; Emergency Provider Emergency Medicine; PCP Internal Medicine; Visit Provider Internal Medicine | DX: R00.0 Tachycardia, unspecified (principal) | CPT/HCPCS: 93010 ==

== ENCOUNTER → 2024-11-04 14:58 | Outpatient (BNV) | payer OTHER, SELFPAY | PROVIDERS: Admitting Provider Internal Medicine; Emergency Provider Emergency Medicine; PCP Internal Medicine; Visit Provider Internal Medicine | DX: R11.2 Nausea with vomiting, unspecified (principal); R10.9 Unspecified abdominal pain; E10.9 Type 1 diabetes mellitus without complications; E11.43 Type 2 diabetes mellitus with diabetic autonomic (poly)neuropathy; K31.84 Gastroparesis | CPT/HCPCS: 99232 ==

== ENCOUNTER → 2024-11-04 14:58 | Outpatient (BNV) | payer OTHER, SELFPAY | PROVIDERS: Admitting Provider Internal Medicine; Emergency Provider Emergency Medicine; PCP Internal Medicine; Visit Provider Student in an Organized Health Care Education/Training Program | DX: R10.9 Unspecified abdominal pain (principal); R11.2 Nausea with vomiting, unspecified; E11.43 Type 2 diabetes mellitus with diabetic autonomic (poly)neuropathy; K31.84 Gastroparesis | CPT/HCPCS: 99232 ==

== ENCOUNTER 2024-12-02 15:56 | Emergency (ER) | payer OTHER, SELFPAY ==
[2024-12-02] VITALS (9 sets, daily range): BP systolic 120–174; BP diastolic 70–90; PULSE 132–145; RESP 16–26; TEMP 35.8–36.9; O2SAT 95–100; BMI 26.3
--- NOTE | ~2024-12-02 | CT_ITS ---
CLINICAL HISTORY: abdominal pain CT abdomen and pelvis with contrast Comparison: CT - CT ABDOMEN PELVIS W IV CON - 07/23/24 15:21 EST Findings: Mild distal esophageal wall thickening. Similar to prior. Mild bilateral hydroureteronephrosis. No urolithiasis. Cholecystectomy. Abdominal solid organs otherwise unremarkable. No bowel obstruction, pneumoperitoneum, or pneumatosis. Nondistended segments of ascending, descending, and sigmoid colon are thick-walled. No inflammatory changes. Ascending colon appearance similar to the prior exam. Moderate stool in the transverse colon and rectum. Mesenteric vessels patent. Hysterectomy. Ovaries unremarkable. Appendix not identified. Moderate urinary bladder distention. Mild nonspecific wall thickening of the anterior superior border. Similar to prior exam. No ascites or hernia. The bones are intact. IMPRESSION: 1. Mild bilateral hydroureteronephrosis is new. There is no obstructing lesion seen. Follow-up as needed. 2. Proximal and distal colonic wall thickening are nonspecific. Differential could include sequela of nondistention, or low-grade colitis. 3. Mild anterior superior urinary bladder wall thickening is similar to the prior exam. Etiology indeterminate. Nonemergent urology consultation may be helpful. This document has been electronically signed by: Zainab Dodge MD on 12/02/2024 21:37:33
[2024-12-02 16:12] LABS: Glucose, Whole Blood 220 mg/dL (60-115)
--- NOTE | 2024-12-02 16:43 | MHC.EDTECH ---
ekg done and read by Dr. Arellano, EKG machine froze and would not print, RN aware, EKG sent to ED attending via tiger text.
--- NOTE | 2024-12-02 17:05 | PC.NURSE ---
Patient A&O x3. Patient presents to ED c/o ABD pain w/ N/V. Vomit non bloody. Patient rates pain 10/10. ABD soft + bowel sounds. Reports BM yesterday. While assessing, patient had a witnessed syncople episode. Sternal rub with no reaction. Pulse present. Vitals 169/84, 140 BPM, temp 96.3 temporal, 20RR POC 226. Provider notified and at bedside. Patient became responsive answering questions 30 seconds after n episode. 18G placed in Right AC. Will transfer patient to another room to place on engine monitor. Blood collected/sent. Call ulloa in reach. Plan of care on going
[2024-12-02 17:06] LABS: Glucose, Whole Blood 226 mg/dL (60-115)
[2024-12-02 17:07] LABS: MANUAL DIFF FLAG NO
[2024-12-02 17:11] LABS: VBG Base Excess 3.8 mmol/L; VBG HCO3 25 mmol/L (22-26); VBG pCO2 30 mmHg; VBG pH 7.53 (7.32-7.43); VBG pO2 47 mmHg
[2024-12-02 17:15] LABS: Venous Blood Gas Refer to POC result
[2024-12-02 17:16] LABS: Basophils Percent Auto 0.3 % (0-2); Eosinophils Percent Auto 0.1 % (0-4); Hematocrit 32.5 % (37.0-47.0); Hemoglobin 10.4 g/dl (12.0-16.0); Imm Gran Abs Auto 0.05 X10*3/uL (0.00-0.03); Imm Gran Pct Auto 0.4 % (0.0-0.4); Lymphocytes Absolute Auto 1.7 X10*3/uL (1.2-4.9); Lymphocytes Percent Auto 13.7 % (20-40); Mean Corpuscular Hemoglobin 25.6 pg (27.0-33.0); Mean Corpuscular Volume 79.9 fL (80.0-98.0); Mean Platelet Volume 8.8 fL (9.4-12.3); Monocytes Absolute Auto 0.4 X10*3/uL (0.1-1.2); Monocytes Percent Auto 2.9 % (2-11); Neutrophils Percent Auto 82.6 % (45-73); Platelet Count 657 X10*3/uL (160-400); Red Blood Count 4.07 X10*6/uL (4.20-5.50); Red Cell Distribution Width 17.6 % (11.0-16.0); White Blood Count 12.1 X10*3/uL (4.8-10.8)
[2024-12-02 17:34] LABS: Alanine Aminotransferase 17 U/L (0-31); Albumin Level 4.7 g/dL (3.5-5.0); Alkaline Phosphatase 153 U/L (39-117); Anion Gap 17 (12-20); Aspartate Amino Transferase 36 U/L (5-31); Bilirubin Direct < 0.2 mg/dL (0.0-0.5); Bilirubin Total 0.2 mg/dL (0.0-1.0); Blood Urea Nitrogen 11 mg/dL (9-16); Carbon Dioxide 24 mmol/L (22-29); Chloride 103 mmol/L (96-108); Creatinine Clr Calc Pharmacy 71.3; Estimated Glomerular Filt Rate > 60; Glucose Random 226 mg/dL (60-115); Lipase 5 U/L (8-78); Potassium 4.7 mmol/L (3.3-5.1); Sodium 139 mmol/L (135-145); Total Protein 8.9 g/dL (6.5-8.0); Troponin-I High Sensitivity < 2.7 ng/L (<3.5-17.0)
[2024-12-02 17:45] LABS: Influenza A PCR NEGATIVE (Negative); Influenza B PCR NEGATIVE (Negative); Resp Syncy Virus RNA Qual PCR NEGATIVE (Negative); SARS COV2 PCR INHOUSE NEGATIVE (Negative)
[2024-12-02] MEDS: Lactated Ringers 1,000 ML 999 ML IV ×2 (17:48→22:26)
--- NOTE | 2024-12-02 17:48 | ED_ITS ---
HPI - Abdominal Pain General Chief Complaint: Abdominal Pain Stated Complaint: CP/ABD PAIN/N/V PER EMS Time Seen by Provider: 12/02/24 17:48 Source: patient and EMS Mode of arrival: EMS History of Present Illness ED Provider: HPI narrative: 49-year-old female with a past medical history type 1 diabetes on insulin pump, diabetic gastroparesis, cyclical vomiting secondary to marijuana use, multiple visits to the emergency department with frequent CTs in the past for abdominal pain, presenting with reports of abdominal pain, she was not really answering questions per EMS I was able to find out more information from her she states she has been having these symptoms of what she describes as gastroparesis they fairly typical for her and frequent, denies alcohol use, opiate use, she does use marijuana and smoked before coming to emergency department. She has a history of cholecystectomy but also has history of pancreatitis. The patient states that this is her fairly typical presentation, has had no hematemesis, has had no melena. No chest pain or shortness of breath. Related Data Home Medications ?Medication ?Instructions ?Recorded ?Confirmed lamotrigine 200 mg tablet 200 mg PO BID 05/11/20 11/04/24 lorazepam 1 mg tablet 1 mg PO TID PRN Anxiety 05/11/20 11/04/24 zolpidem 10 mg tablet 10 mg PO BEDTIME 05/11/20 11/04/24 risperidone 2 mg tablet 2 mg PO BID 09/13/21 11/04/24 insulin aspart U-100 100 unit/mL 0 - 100 unit subcut DAILY 07/23/24 11/04/24 subcutaneous solution (Novolog U-100 Insulin aspart) docusate sodium 100 mg capsule 100 mg PO BID 09/17/24 11/04/24 glucagon 1 mg solution for 1 mg IM Q15M PRN Hypoglycemia 09/17/24 11/04/24 injection (Glucagon Emergency Kit) insulin glargine 100 unit/mL (3 See Rx Instructions .Route 09/17/24 11/04/24 mL) subcutaneous pen (Lantus .COMPLEX PRN when pump not working Solostar U-100 Insulin) subcutaneous insulin pump 09/17/24 09/17/24 pantoprazole 40 mg tablet,delayed 40 mg PO BID@0630,1630 09/18/24 11/04/24 release blood-glucose sensor (Dexcom G6 11/04/24 Sensor device) blood-glucose transmitter (Dexcom 11/04/24 G6 Transmitter device) Previous Rx's ?Medication ?Instructions ?Recorded midodrine 5 mg tablet 5 mg PO DAILY #90 tabs 07/09/24 metoprolol tartrate 25 mg tablet 25 mg PO BID #180 tabs 10/18/24 ondansetron 4 mg disintegrating 4 mg PO Q8H PRN nausea and 11/12/24 tablet vomiting #14 tabs Allergies Allergy/AdvReac Type Severity Reaction Status Date / Time morphine [MORPHINE] Allergy Intermediate RASH, Verified 12/02/24 16:51 hives, hives mushroom Allergy Intermediate HIVES/RASH Verified 12/02/24 16:51 Sulfa (Sulfonamide Allergy Mild Rash Verified 12/02/24 16:51 Antibiotics) mushroom Allergy Unknown throat Uncoded 12/02/24 16:51 closes up/difficult breathing mushrooms Allergy Unknown anaphylaxis Uncoded 12/02/24 16:51 Review of Systems Constitutional: Reports as per [facility] Past Medical History Medical History Intractable cyclical vomiting with nausea Intractable nausea and vomiting Diabetic gastroparesis Acute UTI Diabetes mellitus type 1 Chronic hypertension Diabetes mellitus with gastroparesis Diabetic gastroparesis Herpes zoster Status post fall Recurrent UTI NSTEMI (non-ST elevated myocardial infarction) Diabetic gastroparesis Anxiety Bipolar 1 disorder Pancreatitis Gastroparesis Diabetes Surgical History History of cholecystectomy History of tonsillectomy History of ERCP H/O pyloroplasty History of appendectomy H/O: hysterectomy Social History Social History Household Members: Spouse Housing: Other Housing Other:: trailor Do you presently have visiting nurse or other home services: No Unable to assess alcohol history related to: Refusing to respond Alcohol intake: never Comment: pt refused bed alarm Patient Tobacco Use Status: Former Tobacco user Tobacco use type: Cigarette Smoked in Last 30 Days: No e-Cigarette/Vaping Use: Never Used Second Hand Smoke Exposure: No Use of substances other than those prescribed or required for medical reasons: No Substance Use Type: Marijuana Advance Directives: Yes Advance Directives on File: Yes Advance Directives Date on File: 12/03/22 Do you have a plan to hurt others: No Plan service: No Current occupational status: disabled Cognitive needs: No Hearing needs: No Vision needs: No Physical Exam ED Vital Signs: Vital Signs - 24 hr 12/02/24 16:45 12/02/24 17:04 12/02/24 17:45 Temperature 96.5 F L 96.5 F L 98.4 F Pulse Rate 145 H 145 H 135 H Respiratory Rate 24 H 24 H 19 Blood Pressure 162/84 H 162/84 H 174/87 H Pulse Oximetry 100 100 95 Oxygen Delivery Method Room Air Room Air Room Air 12/02/24 18:12 12/02/24 19:46 12/02/24 21:23 Temperature 98.3 F Pulse Rate 143 H 135 H 135 H Respiratory Rate 26 H 18 18 Blood Pressure 173/90 H 172/90 H 167/89 H Pulse Oximetry 100 98 97 Oxygen Delivery Method Room Air Room Air Room Air 12/02/24 21:38 12/02/24 23:42 Temperature Pulse Rate 133 H 132 H Respiratory Rate 20 16 Blood Pressure 160/81 H 153/81 H Pulse Oximetry 96 97 Oxygen Delivery Method Room Air Room Air BMI result Body Mass Index 26.3 Const Other: * Gen: ?Withdrawn, answers questions, tachypneic * HEENT: Somewhat dry oral mucosa, pupils 2 mm reactive bilaterally * CV: RRR, no obvious murmurs appreciated * Resp: ?No wheezing rales rhonchi no stridor moving air well * Abd: ?Bowel sounds are present, no rebound no rigidity, generalized tenderness * MSK: FROM, strength 5/5 all extremities * Skin: Warm, dry, intact, no jaundice no scleral icterus * Neuro: ?Alert and oriented x3, moving upper and lower extremities symmetrically, no obvious facial asymmetry noted Course Course Course Narrative: I Yoko Bai PA-C have accepted care of the patient and signed out pending labs, imaging and reassessment Lactic is finally normalized at 1.6, the CT scan is unremarkable there was no acute process. CT abdomen and pelvis: IMPRESSION: 1. Mild bilateral hydroureteronephrosis is new. There is no obstructing lesion seen. Follow-up as needed. 2. Proximal and distal colonic wall thickening are nonspecific. Differential could include sequela of nondistention, or low-grade colitis. 3. Mild anterior superior urinary bladder wall thickening is similar to the prior exam. Etiology indeterminate. Nonemergent urology consultation may be helpful. The patient has not continued to vomit. I have discussed with her that she needs to stop using the marijuana, that it is perpetuating her symptoms. I have suggested the use of taking a hot shower. The patient always presents tachycardic, this is her typical presentation. We will give a dose of droperidol. Her is on his way to pick her up. Medical Decision Making Medical Decision Making [facility] Narrative: 18:24 this is the 1st time I am meeting this patient, they did review her prior workup she has had multiple visits in the past few years with report of gastroparesis, she has no brim edge trimmer involved in her care, she told me she used to be on Reglan but because of side effects likely tardive dyskinesia that has been discontinued, last year alone she has had for CTs of the abdomen all which have been reassuring prior to that she has had most CTs and so patient is at risk for radiation exposure and side effects long-term, she is tachycardic she is tachypneic, she has white count of 12, matting on lactic acid and beta hydroxybutyrate, it is not uncommon for falx with diabetes to have slight leukocytosis she has no evidence for GEORGETTE, and review of prior vital signs revealed that she has tachycardia in the past during her presentations. I have also noted that she has had hydromorphone ordered for her care, if we are considering gastroparesis this medication is more or less contraindicated as it decreases GI motility further, domperidone, erythromycin, and dietary changes what is available for us out of emergency department, and she does need to follow up with brim edge trimmer. There also reports that she syncopized, we will obtain ECG to make sure there are no findings consistent with dysrhythmia, she has no electrolyte changes, she has no hypoxia no pleurisy reported to suspect PE and no chest pain to suspect the and ACS None going to attempt to hold off any opiate medications, muscle considering whether she is actually does have a degree of addiction at this point to opiate medications as well, cyclic vomiting as another but consideration she is a frequent marijuana user, I will start with IV fluids, and medications that I typically use with gastroparesis and cyclic vomiting patient has while trying to avoid opiate medications. Disposition to be determined she may need to be admitted 19:27 lactate 2.6, she is meeting SIRS criteria but I do not suspect an infection at this time, lactate I believe along with the other vital signs that have discussed is due to dehydration, nausea vomiting as well as anxiety, I will monitor vital signs, she received fluids, and I will obtain blood cultures. 20:37 patient has been observed sleeping she has not thrown up but she states she still has a healing very nauseous, I am going to admit her for further monitoring, as long as she is going to be admitted I am ordering dose of IV antibiotics ceftriaxone to cover intra-abdominal source of infection and obtaining CT of the abdomen sign out care to Yoko Enrique Differential Diagnosis Differential Diagnoses: The differential diagnosis associated with the presentation includes SBO, bowel perforation, pancreatitis, electrolyte derangements, gastroparesis, cyclic vomiting, ACS, dysrhythmia Admission/Observation Consideration of admission/observation: Escalation of care including admission/observation considered Lab Data 12/02/24 17:00 12/02/24 17:00 Labs: Lab Results 12/02/24 12/02/24 12/02/24 Range/Units 16:09 16:49 17:00 WBC 12.1 H (4.8-10.8) X10*3/uL RBC 4.07 L (4.20-5.50) X10*6/uL Hgb 10.4 L (12.0-16.0) g/dl Hct 32.5 L (37.0-47.0) % MCV 79.9 L (80.0-98.0) fL MCH 25.6 L (27.0-33.0) pg MCHC 32.0 (31.0-35.0) g/dl RDW 17.6 H (11.0-16.0) % Plt Count 657 H D (160-400) X10*3/uL MPV 8.8 L (9.4-12.3) fL Immature Gran % (Auto) 0.4 (0.0-0.4) % Neut % (Auto) 82.6 H (45-73) % Lymph % (Auto) 13.7 L (20-40) % [place] % (Auto) 2.9 (2-11) % Eos % (Auto) 0.1 (0-4) % Baso % (Auto) 0.3 (0-2) % Lymph # (Auto) 1.7 (1.2-4.9) X10*3/uL [place] # (Auto) 0.4 (0.1-1.2) X10*3/uL Eos # (Auto) 0.0 (0.0-0.4) X10*3/uL Baso # (Auto) 0.0 (0.0-0.2) X10*3/uL Abs Immat Gran (auto) 0.05 H (0.00-0.03) X10*3/uL Absolute Neuts (auto) 10.0 H (2.0-8.3) x10*3/uL Absolute Nucleated RBC 0.000 (0.0-0.012) X10*3/uL Nucleated RBC % (auto) 0.0 (0.0-0.2) /100WBC VBG pH (7.32-7.43) VBG pCO2 mmHg VBG pO2 mmHg VBG HCO3 (22-26) mmol/L VBG O2 Saturation % VBG Base Excess mmol/L Sodium 139 (135-145) mmol/L Potassium 4.7 D (3.3-5.1) mmol/L Chloride 103 (96-108) mmol/L Carbon Dioxide 24 (22-29) mmol/L Anion Gap 17 (12-20) BUN 11 (9-16) mg/dL Creatinine 0.97 (0.5-1.4) mg/dL Estim Creat Clear Calc 71.3 Estimated GFR > 60 POC Glucose 220 H 226 H (60-115) mg/dL Random Glucose 226 H (60-115) mg/dL Lactic Acid (0.5-2.0) mmol/L Lactic Acid F/U @ 2Hr (0.5-2.0) mmol/L Lactic Acid F/U @ 4Hr (0.5-2.0) mmol/L Calcium 10.0 D (8.4-10.2) mg/dL Magnesium 2.0 (1.6-2.6) mg/dL Total Bilirubin 0.2 (0.0-1.0) mg/dL Direct Bilirubin < 0.2 (0.0-0.5) mg/dL AST 36 H (5-31) U/L ALT 17 (0-31) U/L Alkaline Phosphatase 153 H (39-117) U/L Troponin I High Sens < 2.7 (<3.5-17.0) ng/L Total Protein 8.9 H (6.5-8.0) g/dL Albumin 4.7 (3.5-5.0) g/dL Lipase 5 L (8-78) U/L Beta-Hydroxybutyrate (0.02-0.27) mmol/L Urine Color Urine Appearance Urine pH (5.0-9.0) Ur Specific [place] (1.005-1.025) Urine Protein (Neg-Trace) mg/dL Urine Glucose (UA) (Negative) mg/dL Urine Ketones (Negative) mg/dL Urine Blood (Negative) Urine Nitrite (Negative) Ur Leukocyte Esterase (Negative) Urine RBC (0-2) /HPF Urine WBC (0-5) /HPF Ur Squamous Epith Cells (0-2) /HPF Urine Bacteria (None Seen) Hyaline Casts (0-2) /LPF Influenza Type A (PCR) NEGATIVE (Negative) Influenza Type B (PCR) NEGATIVE (Negative) RSV RNA Qual (PCR) NEGATIVE (Negative) SARS-CoV-2 RNA (RT-PCR) NEGATIVE (Negative) 12/02/24 12/02/24 12/02/24 Range/Units 17:07 18:43 21:06 WBC (4.8-10.8) X10*3/uL RBC (4.20-5.50) X10*6/uL Hgb (12.0-16.0) g/dl Hct (37.0-47.0) % MCV (80.0-98.0) fL MCH (27.0-33.0) pg MCHC (31.0-35.0) g/dl RDW (11.0-16.0) % Plt Count (160-400) X10*3/uL MPV (9.4-12.3) fL Immature Gran % (Auto) (0.0-0.4) % Neut % (Auto) (45-73) % Lymph % (Auto) (20-40) % [place] % (Auto) (2-11) % Eos % (Auto) (0-4) % Baso % (Auto) (0-2) % Lymph # (Auto) (1.2-4.9) X10*3/uL [place] # (Auto) (0.1-1.2) X10*3/uL Eos # (Auto) (0.0-0.4) X10*3/uL Baso # (Auto) (0.0-0.2) X10*3/uL Abs Immat Gran (auto) (0.00-0.03) X10*3/uL Absolute Neuts (auto) (2.0-8.3) x10*3/uL Absolute Nucleated RBC (0.0-0.012) X10*3/uL Nucleated RBC % (auto) (0.0-0.2) /100WBC VBG pH 7.53 H (7.32-7.43) VBG pCO2 30 mmHg VBG pO2 47 mmHg VBG HCO3 25 (22-26) mmol/L VBG O2 Saturation 75.0 % VBG Base Excess 3.8 mmol/L Sodium (135-145) mmol/L Potassium (3.3-5.1) mmol/L Chloride (96-108) mmol/L Carbon Dioxide (22-29) mmol/L Anion Gap (12-20) BUN (9-16) mg/dL Creatinine (0.5-1.4) mg/dL Estim Creat Clear Calc Estimated GFR POC Glucose (60-115) mg/dL Random Glucose (60-115) mg/dL Lactic Acid 2.6 H* (0.5-2.0) mmol/L Lactic Acid F/U @ 2Hr 2.2 H* (0.5-2.0) mmol/L Lactic Acid F/U @ 4Hr (0.5-2.0) mmol/L Calcium (8.4-10.2) mg/dL Magnesium (1.6-2.6) mg/dL Total Bilirubin (0.0-1.0) mg/dL Direct Bilirubin (0.0-0.5) mg/dL AST (5-31) U/L ALT (0-31) U/L Alkaline Phosphatase (39-117) U/L Troponin I High Sens (<3.5-17.0) ng/L Total Protein (6.5-8.0) g/dL Albumin (3.5-5.0) g/dL Lipase (8-78) U/L Beta-Hydroxybutyrate 1.28 H (0.02-0.27) mmol/L Urine Color Yellow Urine Appearance Clear Urine pH 8.5 (5.0-9.0) Ur Specific [place] 1.015 (1.005-1.025) Urine Protein 30 (1+) H (Neg-Trace) mg/dL Urine Glucose (UA) >=1000 H (Negative) mg/dL Urine Ketones 15 (Negative) mg/dL Urine Blood Small (1+) H (Negative) Urine Nitrite Negative (Negative) Ur Leukocyte Esterase Negative (Negative) Urine RBC 6-10 H (0-2) /HPF Urine WBC 0-5 (0-5) /HPF Ur Squamous Epith Cells 0-2 (0-2) /HPF Urine Bacteria None Seen (None Seen) Hyaline Casts 0-2 (0-2) /LPF Influenza Type A (PCR) (Negative) Influenza Type B (PCR) (Negative) RSV RNA Qual (PCR) (Negative) SARS-CoV-2 RNA (RT-PCR) (Negative) 12/02/24 Range/Units 23:37 WBC (4.8-10.8) X10*3/uL RBC (4.20-5.50) X10*6/uL Hgb (12.0-16.0) g/dl Hct (37.0-47.0) % MCV (80.0-98.0) fL MCH (27.0-33.0) pg MCHC (31.0-35.0) g/dl RDW (11.0-16.0) % Plt Count (160-400) X10*3/uL MPV (9.4-12.3) fL Immature Gran % (Auto) (0.0-0.4) % Neut % (Auto) (45-73) % Lymph % (Auto) (20-40) % [place] % (Auto) (2-11) % Eos % (Auto) (0-4) % Baso % (Auto) (0-2) % Lymph # (Auto) (1.2-4.9) X10*3/uL [place] # (Auto) (0.1-1.2) X10*3/uL Eos # (Auto) (0.0-0.4) X10*3/uL Baso # (Auto) (0.0-0.2) X10*3/uL Abs Immat Gran (auto) (0.00-0.03) X10*3/uL Absolute Neuts (auto) (2.0-8.3) x10*3/uL Absolute Nucleated RBC (0.0-0.012) X10*3/uL Nucleated RBC % (auto) (0.0-0.2) /100WBC VBG pH (7.32-7.43) VBG pCO2 mmHg VBG pO2 mmHg VBG HCO3 (22-26) mmol/L VBG O2 Saturation % VBG Base Excess mmol/L Sodium (135-145) mmol/L Potassium (3.3-5.1) mmol/L Chloride (96-108) mmol/L Carbon Dioxide (22-29) mmol/L Anion Gap (12-20) BUN (9-16) mg/dL Creatinine (0.5-1.4) mg/dL Estim Creat Clear Calc Estimated GFR POC Glucose (60-115) mg/dL Random Glucose (60-115) mg/dL Lactic Acid (0.5-2.0) mmol/L Lactic Acid F/U @ 2Hr (0.5-2.0) mmol/L Lactic Acid F/U @ 4Hr 1.6 (0.5-2.0) mmol/L Calcium (8.4-10.2) mg/dL Magnesium (1.6-2.6) mg/dL Total Bilirubin (0.0-1.0) mg/dL Direct Bilirubin (0.0-0.5) mg/dL AST (5-31) U/L ALT (0-31) U/L Alkaline Phosphatase (39-117) U/L Troponin I High Sens (<3.5-17.0) ng/L Total Protein (6.5-8.0) g/dL Albumin (3.5-5.0) g/dL Lipase (8-78) U/L Beta-Hydroxybutyrate (0.02-0.27) mmol/L Urine Color Urine Appearance Urine pH (5.0-9.0) Ur Specific [place] (1.005-1.025) Urine Protein (Neg-Trace) mg/dL Urine Glucose (UA) (Negative) mg/dL Urine Ketones (Negative) mg/dL Urine Blood (Negative) Urine Nitrite (Negative) Ur Leukocyte Esterase (Negative) Urine RBC (0-2) /HPF Urine WBC (0-5) /HPF Ur Squamous Epith Cells (0-2) /HPF Urine Bacteria (None Seen) Hyaline Casts (0-2) /LPF Influenza Type A (PCR) (Negative) Influenza Type B (PCR) (Negative) RSV RNA Qual (PCR) (Negative) SARS-CoV-2 RNA (RT-PCR) (Negative) Medications Administered Discontinued Medications Generic Name Dose Route Start Last Admin Trade Name Freq PRN Reason Stop Dose Admin Ceftriaxone Sodium 1 gm 12/02/24 20:41 12/02/24 20:50 Ceftriaxone Sodium 1 Gm Vial IVPUSH 12/02/24 20:42 1 gm ONCE ONE Administration Diazepam 2 mg 12/02/24 18:19 12/02/24 18:47 Diazepam 10 Mg/2 Ml Cartridge IVPUSH 12/02/24 18:20 2 mg STAT STA Administration Diphenhydramine HCl 25 mg 12/02/24 18:18 12/02/24 18:47 Diphenhydramine Hcl 50 Mg/Ml Vial IVPUSH 12/02/24 18:19 25 mg ONCE ONE Administration Haloperidol Lactate 2.5 mg 12/02/24 18:18 12/02/24 18:48 Haloperidol Lactate 5 Mg/Ml Vial IVPUSH 12/02/24 18:19 2.5 mg ONCE ONE Administration Lactated Ringer's 1,000 mls @ 999 mls/hr 12/02/24 17:45 12/02/24 18:03 Lr IV 12/02/24 18:45 Infused .Q1H1M RAISA Infusion Sodium Chloride 1,000 mls @ 999 mls/hr 12/02/24 19:45 12/02/24 21:20 Ns IV 12/02/24 20:45 Infused .Q1H1M RAISA Infusion Lactated Ringer's 1,000 mls @ 999 mls/hr 12/02/24 22:15 12/02/24 23:40 Lr IV 12/02/24 23:15 Infused .Q1H1M RAISA Infusion Discharge Plan Discharge Clinical Impression: Abdominal pain, Cannabis abuse, Cyclic vomiting syndrome Nausea and vomiting Qualifiers: Vomiting type: unspecified Qualified Code(s): R11.2 - Nausea with vomiting, unspecified Patient Disposition: Home, Self-Care Instructions: Cannabis Use Disorder (ED), Cyclic Vomiting Syndrome (ED) Additional Instructions: All of your screening labs were overall normal for you. There was no acute process on the CT scan. Your symptoms are secondary to your marijuana use. You should strongly consider abstaining from further marijuana use. Taking a hot shower will help with the symptoms associated with cyclic vomiting induced by marijuana use. Follow up with your primary care provider this week. Prescriptions: No Action midodrine 5 mg tablet 5 mg PO DAILY Qty: 90 2RF metoprolol tartrate 25 mg tablet 25 mg PO BID Qty: 180 1RF lorazepam 1 mg Tablet 1 mg PO TID PRN (Reason: Anxiety) lamotrigine 200 mg Tablet 200 mg PO BID zolpidem 10 mg Tablet 10 mg PO BEDTIME risperidone 2 mg tablet 2 mg PO BID insulin aspart U-100 [Novolog U-100 Insulin aspart] 100 unit/mL solution 0 - 100 unit subcut DAILY Rx Instructions: insulin pump docusate sodium 100 mg capsule 100 mg PO BID insulin glargine [Lantus Solostar U-100 Insulin] 100 unit/mL (3 mL) insulin pen See Rx Instructions .ROUTE .COMPLEX PRN (Reason: when pump not working) Rx Instructions: Patient only utilizes when pump is not working. Patient has a Tandem pump. Glucagon Emergency Kit (human) 1 mg recon soln 1 mg IM Q15M PRN (Reason: Hypoglycemia) (DME) subcutaneous insulin pump Misc MISCELLANEOUS Rx Instructions: *Pump Brand is Tandem* Uses Novolog 0-100 units with pump pantoprazole 40 mg tablet,delayed release (DR/EC) 40 mg PO BID@0630,1630 (DME) Dexcom G6 Sensor Device 1 ea MISCELLANEOUS Q10D (DME) Dexcom G6 Transmitter Device MISCELLANEOUS ondansetron 4 mg tablet,disintegrating 4 mg PO Q8H PRN (Reason: nausea and vomiting) Qty: 14 0RF Print Language: Latvian
[2024-12-02] MEDS: diazePAM 10 MG/2 ML CARTRIDGE 2 MG IVPUSH (18:47)
[2024-12-02] MEDS: diphenhydrAMINE HCL 50 MG/ML VIAL 25 MG IVPUSH (18:47)
[2024-12-02] MEDS: Haloperidol Lactate 5 MG/ML VIAL 2.5 MG IVPUSH (18:48)
[2024-12-02 19:25] LABS: Lactic Acid 2.6 mmol/L (0.5-2.0)
[2024-12-02] MEDS: 0.9 % Sodium Chloride 1,000 ML 999 ML IV (19:45)
[2024-12-02 19:49] LABS: Beta-Hydroxybutyrate 1.28 mmol/L (0.02-0.27)
[2024-12-02 20:46] LABS: Reflex Lactate? Lactic Acid Added
[2024-12-02] MEDS: cefTRIAXone sodium 1 GM VIAL IVPUSH (20:50)
[2024-12-02 21:19] LABS: Appearance Urine Clear; Color Urine Yellow; Glucose Urine UA >=1000 mg/dL (Negative); Leukocyte Esterase Urine Negative (Negative); Nitrite Urine Negative (Negative); PH 8.5 (5.0-9.0); Specific Gravity - Urine 1.015 (1.005-1.025); UMIC TRIGGER UACC YES; Urine Blood Small (1+) (Negative); Urine Ketones 15 mg/dL (Negative); Urine Protein 30 (1+) mg/dL (Neg-Trace)
[2024-12-02 21:24] LABS: Bacteria Urine None Seen (None Seen); Hyaline Casts Urine 0-2 /LPF (0-2); Squamous Epithelial Cell Urine 0-2 /HPF (0-2); WBC Urine 0-5 /HPF (0-5)
[2024-12-02 21:36] LABS: ~Lactic Acid-LAB USE ONLY 2.2 mmol/L (0.5-2.0)
[2024-12-02 23:16] LABS: Reflex Lactate? 2 Y
[2024-12-02 23:57] LABS: ~Lactic Acid-LAB USE ONLY 1.6 mmol/L (0.5-2.0)
[2024-12-03 00:28] VITALS: BP 158/83; PULSE 126; RESP 14; TEMP 36.7; O2SAT 98
[2024-12-03] MEDS: droPERidol 5 MG/2 ML VIAL 1.25 MG IVPUSH (00:31)
[2024-12-03 00:33] VITALS: BP 158/83; PULSE 126; RESP 14; TEMP 36.7; O2SAT 98
== END 2024-12-03 00:55 | disposition home or self-care (01) ==
PROVIDERS: Emergency Provider Emergency Medicine; PCP Internal Medicine
DX: R07.89 Other chest pain (principal); R10.2 Pelvic and perineal pain; R11.2 Nausea with vomiting, unspecified; E10.9 Type 1 diabetes mellitus without complications; Z03.818 Encounter for observation for suspected exposure to other biological agents ruled out; Z79.4 Long term (current) use of insulin; Z79.899 Other long term (current) drug therapy; Z87.891 Personal history of nicotine dependence
CPT/HCPCS: 0241U; 36415; 74177; 80053; 81001; 82010; 82248; 82803; 82947; 83605; 83690; 83735; 84484; 85025; 87040; 96361; 96374; 96375; 99285; J0696; J1200; J1630; J1790; J3360; J7120

== ENCOUNTER → 2024-12-02 20:38 | Outpatient (BNV) | payer OTHER, SELFPAY | PROVIDERS: Emergency Provider Emergency Medicine; PCP Internal Medicine; Visit Provider Radiology Diagnostic Radiology | DX: N13.39 Other hydronephrosis (principal) | CPT/HCPCS: 74177 ==

== ENCOUNTER 2024-12-24 08:41 | Day surgery (SDC) | payer OTHER, SELFPAY ==
--- NOTE | 2024-12-23 09:22 | P.CONAN_ITS ---
Documented by User: Angeles Melton NP 12/23/24 10:13 HPI - Anesthesia Eval Consult details Narrative: 49yo F for Upper Endoscopy with Dilitation s/p EGD 09/2024 with TIVA Frequent hospitalization for nausea, vomiting and abdominal pain related to cyclical vomiting and gastroparesis / high risk DKA NSTEMI 2010 [facility] Active Problems Active Problems: All Active Problems Type 1 diabetes (Acute) Abdominal pain (Acute) Nausea and vomiting (Acute) Insomnia (Acute) Nevus of female breast (Acute) Annual physical exam (Acute) Type 1 diabetes (Acute) Type 1 diabetes (Acute) Urinary frequency (Acute) Dysuria (Acute) Hospital discharge follow-up (Acute) Diabetic gastroparesis (Acute) Screening for breast cancer (Acute) Screening for colon cancer (Acute) Adult general medical exam (Acute) UTI (urinary tract infection) (Acute) Idiopathic hypotension (Acute) GERD (gastroesophageal reflux disease) (Acute) Screening for hyperlipidemia (Acute) History of non-ST elevation myocardial infarction (NSTEMI) (Acute) Diabetes type 1, controlled (Acute) Acute kidney injury (Acute) Hyperkalemia (Acute) Osteoarthritis of lumbar spine with myelopathy (Acute) Recurrent UTI (Acute) Anxiety (Acute) Bipolar 1 disorder (Acute) Past Medical History Medical History NSTEMI (non-ST elevated myocardial infarction) (~2010) Acute UTI Chronic hypertension Diabetes mellitus with gastroparesis Diabetes mellitus type 1 Herpes zoster Status post fall Intractable nausea and vomiting Recurrent UTI Anxiety Bipolar 1 disorder Pancreatitis Family History Family history of problems with anesthesia: No Surgical History Surgical History History of cholecystectomy History of tonsillectomy History of ERCP H/O pyloroplasty History of appendectomy H/O: hysterectomy History of Problems with Anesthesia: No Social History Social History Household Members: Spouse Housing: Other Housing Other:: trailor Do you presently have visiting nurse or other home services: No Unable to assess alcohol history related to: Refusing to respond Alcohol intake: never Comment: pt refused bed alarm Patient Tobacco Use Status: Former Tobacco user Tobacco use type: Cigarette e-Cigarette/Vaping Use: Never Used Second Hand Smoke Exposure: No Use of substances other than those prescribed or required for medical reasons: No Substance Use Type: Marijuana Have you been hit, kicked, punched, or otherwise hurt by someone within the past year? If so, by whom?: No Are you DNR?: No Advance Directives: No Advance Directives Information Provided: Yes Advance Directives Date on File: 12/03/22 Patient : No : No Poor oral hygiene: Yes service: No Current occupational status: disabled Cognitive needs: No Hearing needs: No Vision needs: No Meds Allergies Allergy/AdvReac Type Severity Reaction Status Date / Time morphine [MORPHINE] Allergy Intermediate RASH, Verified 12/02/24 16:51 hives, hives mushroom Allergy Intermediate HIVES/RASH Verified 12/02/24 16:51 Sulfa (Sulfonamide Allergy Mild Rash Verified 12/02/24 16:51 Antibiotics) Home Medications ?Medication ?Instructions ?Recorded ?Confirmed ?Last Taken ?Type lamotrigine 200 mg tablet 200 mg PO BID 05/11/20 11/04/24 11/04/24 History lorazepam 1 mg tablet 1 mg PO TID PRN Anxiety 05/11/20 11/04/24 07/23/24 History zolpidem 10 mg tablet 10 mg PO BEDTIME 05/11/20 11/04/24 11/03/24 History risperidone 2 mg tablet 2 mg PO BID 09/13/21 11/04/24 11/04/24 History insulin aspart U-100 100 unit/mL 0 - 100 unit subcut DAILY 07/23/24 11/04/24 11/04/24 History subcutaneous solution (Novolog U-100 Insulin aspart) docusate sodium 100 mg capsule 100 mg PO BID 09/17/24 11/04/24 11/04/24 History glucagon 1 mg solution for 1 mg IM Q15M PRN Hypoglycemia 09/17/24 11/04/24 Unknown History injection (Glucagon Emergency Kit) insulin glargine 100 unit/mL (3 See Rx Instructions .Route 09/17/24 11/04/24 Unknown History mL) subcutaneous pen (Lantus .COMPLEX PRN when pump not working Solostar U-100 Insulin) subcutaneous insulin pump 09/17/24 09/17/24 Unknown History pantoprazole 40 mg tablet,delayed 40 mg PO BID@0630,1630 03/02/0511/04/24 11/04/24 History release blood-glucose sensor (Dexcom G6 11/04/24 Unknown History Sensor device) blood-glucose transmitter (Dexcom 11/04/24 Unknown History G6 Transmitter device) Exam Pertinent Lab Results Pertinent Lab Results: Laboratory Tests 12/02/24 17:00 WBC 12.1 H Hgb 10.4 L Hct 32.5 L Plt Count 657 H D Sodium 139 Potassium 4.7 D Chloride 103 Carbon Dioxide 24 BUN 11 Creatinine 0.97 Narrative Narrative: EKG 10/2024 Vent. Rate : 108 BPM Atrial Rate : 108 BPM P-R Int : 138 ms QRS Dur : 90 ms QT Int : 336 ms P-R-T Axes : 60 54 44 degrees QTcB Int : 450 ms Sinus tachycardia Otherwise normal ECG When compared with ECG of 04-Nov-2024 05:15, No significant change was found Assessment and Plan Assessment Anesthesia Assessment: Chart Reviewed Final Anesthetic Review Family History of Problems with Anesthesia: No History of Problems with Anesthesia: No Documented by User: Mandi High MD 12/24/24 10:26 [facility] Past Medical History Medical History NSTEMI (non-ST elevated myocardial infarction) (~2010) Acute UTI Chronic hypertension Diabetes mellitus with gastroparesis Diabetes mellitus type 1 Herpes zoster Status post fall Intractable nausea and vomiting Recurrent UTI Anxiety Bipolar 1 disorder Pancreatitis Surgical History Surgical History History of cholecystectomy History of tonsillectomy History of ERCP H/O pyloroplasty History of appendectomy H/O: hysterectomy Social History Social History Household Members: Spouse Housing: Other Housing Other:: trailor Do you presently have visiting nurse or other home services: No Unable to assess alcohol history related to: Refusing to respond Alcohol intake: never Comment: pt refused bed alarm Patient Tobacco Use Status: Former Tobacco user Tobacco use type: Cigarette e-Cigarette/Vaping Use: Never Used Second Hand Smoke Exposure: No Use of substances other than those prescribed or required for medical reasons: No Substance Use Type: Marijuana Have you been hit, kicked, punched, or otherwise hurt by someone within the past year? If so, by whom?: No Are you DNR?: No Advance Directives: No Advance Directives Information Provided: Yes Advance Directives Date on File: 12/03/22 Patient : No : No Poor oral hygiene: Yes service: No Current occupational status: disabled Cognitive needs: No Hearing needs: No Vision needs: No Meds Allergies Allergy/AdvReac Type Severity Reaction Status Date / Time morphine [MORPHINE] Allergy Intermediate RASH, Verified 12/02/24 16:51 hives, hives mushroom Allergy Intermediate HIVES/RASH Verified 12/02/24 16:51 Sulfa (Sulfonamide Allergy Mild Rash Verified 12/02/24 16:51 Antibiotics) Home Medications ?Medication ?Instructions ?Recorded ?Confirmed ?Last Taken ?Type lamotrigine 200 mg tablet 200 mg PO BID 05/11/20 11/04/24 11/04/24 History lorazepam 1 mg tablet 1 mg PO TID PRN Anxiety 05/11/20 11/04/24 07/23/24 History zolpidem 10 mg tablet 10 mg PO BEDTIME 05/11/20 11/04/24 11/03/24 History risperidone 2 mg tablet 2 mg PO BID 09/13/21 11/04/24 11/04/24 History insulin aspart U-100 100 unit/mL 0 - 100 unit subcut DAILY 07/23/24 11/04/24 11/04/24 History subcutaneous solution (Novolog U-100 Insulin aspart) docusate sodium 100 mg capsule 100 mg PO BID 09/17/24 11/04/24 11/04/24 History glucagon 1 mg solution for 1 mg IM Q15M PRN Hypoglycemia 09/17/24 11/04/24 Unknown History injection (Glucagon Emergency Kit) insulin glargine 100 unit/mL (3 See Rx Instructions .Route 09/17/24 11/04/24 Unknown History mL) subcutaneous pen (Lantus .COMPLEX PRN when pump not working Solostar U-100 Insulin) subcutaneous insulin pump 03/06/25 03/06/25 Unknown History pantoprazole 40 mg tablet,delayed 40 mg PO BID@0630,1630 09/18/24 11/04/24 11/04/24 History release blood-glucose sensor (Dexcom G6 11/04/24 Unknown History Sensor device) blood-glucose transmitter (Dexcom 11/04/24 Unknown History G6 Transmitter device) Exam Airway Mallampati Class: II TM Dist: >3cm Neck ROM: Full Loose/Missing/Broken Teeth: No Heart: RRR Lungs: CTA Assessment and Plan Assessment Anesthesia Assessment: Anesthesia Plan Discussed Final Anesthetic Review NPO: Yes ASA Class: III Final Preanesthetic Review: Meds/Allgs Chart Reviewed, Consent Obtained/Reviewed and Anes Risks/Benef Reviewed Patient Risk: Intermediate Procedure Risk: Intermediate Anesthetic Plan Anesthetic Plan: MAC: Disposition: Standard PACU
[2024-12-24 10:06] VITALS: BP 107/63; PULSE 86; RESP 18; TEMP 36.6; O2SAT 97; BMI 26.2
[2024-12-24 10:24] LABS: Glucose, Whole Blood 379 mg/dL (60-115)
[2024-12-24] MEDS: Insulin Lispro 100 UNIT/ML 3 ML VIAL 10 UNIT SUBCUT (10:29)
--- NOTE | 2024-12-24 10:47 | MHC.SHP ---
Pre-Procedural Eval Section A - 24 Hr Update-Section A only Date of Service: 12/24/24 Section B - Complete if H&P > 30 days Chief Complaint: gastroparesis Details of Present Illness: Diabetic gastroparesis Acute UTI Diabetes mellitus type 1 Chronic hypertension Intractable cyclical vomiting with nausea Diabetes mellitus with gastroparesis Diabetic gastroparesis Herpes zoster Status post fall Recurrent UTI NSTEMI (non-ST elevated myocardial infarction) Diabetic gastroparesis Anxiety Bipolar 1 disorder Pancreatitis Gastroparesis Diabetes Surgical History History of cholecystectomy History of tonsillectomy History of ERCP H/O pyloroplasty History of appendectomy H/O: hysterectomy Present Medications: see Short Stay Collaborative assessment Allergies: Allergies Allergy/AdvReac Type Severity Reaction Status Date / Time morphine [MORPHINE] Allergy Intermediate RASH, Verified 12/02/24 16:51 hives, hives mushroom Allergy Intermediate HIVES/RASH Verified 12/02/24 16:51 Sulfa (Sulfonamide Allergy Mild Rash Verified 12/02/24 16:51 Antibiotics) Review of Systems Review of Systems Comment: Ten point ROS negative Plan Diagnosis/Plan: Unchanged I have reviewed the history and physical and performed a pertinent physical examination on my patient. No changes have occurred unless specified. Time Spent With Patient Time: Total time managing care of this patient today ____ minutes.
[2024-12-24] MEDS: Lactated Ringers 1,000 ML 100 ML IVCONT (10:58)
[2024-12-24 10:59] LABS: Glucose, Whole Blood 345 mg/dL (60-115)
--- NOTE | 2024-12-24 11:15 | P.OP_ITS ---
Operative Note Operative Note Date of Service: 12/24/24 Narrative: Procedure: Esophagogastroduodenoscopy Endoscopist: Kasia Fletcher MD Indication: Gastroparesis Anesthesia Provider: Carter Miles CRNA Anesthesia Type: MAC ?? EGD Procedure:?? The procedure, indications, preparation and potential complications were reviewed with the patient, who indicated understanding and gave written informed consent to proceed. A physical exam was performed. The endoscope was introduced through the mouth, and advanced to the second part of duodenum. The mucosa was carefully examined on slow withdrawal of the endoscope. The patient tolerated the procedure well. There were no immediate complications.? ? EGD Findings:? * Esophagus:? Normal mucosa noted in the entire esophagus. The Z line was at 39 cm. * Stomach:? Normal mucosa was noted in the stomach. A small amount of solid food was noted in hte Retroflexion was performed in the cardia. Again noted was slightly narrow pyloric inlet but scope could traverse through this. * Duodenum:? Normal mucosa was noted in the whole of the examined duodenum. Additional intervention: A through the scope pyloric balloon was inserted through the biopsy channel and advanced through the pyloric inlet. The pylorus was incrementally dilated from 18 to 20 mm. Minimal resistance noted on dilation. No heme or tear noted. ? EGD Impressions:? * Normal esophagus * Normal stomach * Narrow pyloric inlet (dilation) * Normal duodenum ?? Recommendations:?? * Pt again reminded to re-establish care with foregut surgery to discuss GPOEM revision. * Small particle diet * Tight glycemic control - fasting BG before procedure was > 320 today. * Avoid NSAIDs and opiate * Cont PPI Above has been reviewed with the patient.
[2024-12-24 11:19] VITALS: BP 87/41; PULSE 71; RESP 16; TEMP 36.4; O2SAT 99
[2024-12-24 11:34] VITALS: BP 105/58; PULSE 82; RESP 16; TEMP 36.6; O2SAT 99
== END 2024-12-24 12:04 | disposition home or self-care (01) ==
PROVIDERS: PCP Internal Medicine; Visit Provider Internal Medicine
PROC: (CPT 43245; principal; 2024-12-24 11:20)
DX: E10.43 Type 1 diabetes mellitus with diabetic autonomic (poly)neuropathy (principal); K31.84 Gastroparesis; K31.4 Gastric diverticulum; K31.1 Adult hypertrophic pyloric stenosis; K85.90 Acute pancreatitis without necrosis or infection, unspecified; I10 Essential (primary) hypertension; I25.2 Old myocardial infarction; F31.9 Bipolar disorder, unspecified; F41.9 Anxiety disorder, unspecified; Z79.4 Long term (current) use of insulin; Z79.899 Other long term (current) drug therapy; Z88.2 Allergy status to sulfonamides; Z88.5 Allergy status to narcotic agent; F12.20 Cannabis dependence, uncomplicated; Z90.49 Acquired absence of other specified parts of digestive tract; Z98.890 Other specified postprocedural states; Z87.891 Personal history of nicotine dependence
CPT/HCPCS: 43245; 82947; C1726; J2704

== ENCOUNTER → 2024-12-24 08:41 | Outpatient (BNV) | payer OTHER, SELFPAY | PROVIDERS: PCP Internal Medicine; Visit Provider Internal Medicine | DX: K31.84 Gastroparesis (principal); K31.1 Adult hypertrophic pyloric stenosis | CPT/HCPCS: 43245 ==

== ENCOUNTER 2025-01-18 12:05 | Outpatient (AMB) | payer OTHER, SELFPAY ==
--- NOTE | 2025-01-18 12:12 | A.OFFVIS_ITS ---
Vital Signs 01/18/25 12:14 Height 5 ft 6.5 in Weight 160 lb 14.999 oz BMI 25.6 BP 107/53 L Blood Pressure Location Lt brachial Position Sitting Pulse 95 Intake Visit Reasons: s/p egd w dilation Intake Note: Yumiko presents in the offie as a EGD w/ DIL follow up. CC: She has been having issues with her stomach. Nausea in the AM that goes away once she wakes up fully. Has been going on for the past 2 years. She states that it happened a couple days after that was worse than before the EGD. Electrical Research Engineer Required: No Allergies morphine (MORPHINE) Allergy (Intermediate, Verified 12/02/24 16:51) RASH, hives, hives mushroom Allergy (Intermediate, Verified 12/02/24 16:51) HIVES/RASH Sulfa (Sulfonamide Antibiotics) Allergy (Mild, Verified 12/02/24 16:51) Rash HPI Comments Details: 49-year-old female with past medical history of type 1 diabetes complicated by gastroparesis status post G pump 2019, initially seen in consultation in October 2024 status post EGD x2 with pyloric dilation. She is coming in today for post EGD follow-up. 12/24/24: * Esophagus:? Normal mucosa noted in the entire esophagus. The Z line was at 39 cm. * Stomach:? Normal mucosa was noted in the stomach. A small amount of solid food was noted in hte Retroflexion was performed in the cardia. Again noted was slightly narrow pyloric inlet but scope could traverse through this. * Duodenum:? Normal mucosa was noted in the whole of the examined duodenum. Additional intervention: A through the scope pyloric balloon was inserted through the biopsy channel and advanced through the pyloric inlet. The pylorus was incrementally dilated from 18 to 20 mm. Minimal resistance noted on dilation. No heme or tear noted. 01/18/25: Reports only a few days of relief post EGD. Has an appt with Dr De La Fuente coming up next month. Her DM control remains poor. On the day of EGD her fasting sugar was >300. Right now, CGM shows a BG of 290. She is currently sipping on a guanaco donuts drink which is NOT sugar free. Follows with [facility] endocrine. Reports has not been seen by a accounting consultant or a special education paraeducator. Also not up to date with eye or foot exams. [facility] Medical History NSTEMI (non-ST elevated myocardial infarction) (~2010) Acute UTI Chronic hypertension Diabetes mellitus with gastroparesis Diabetes mellitus type 1 Herpes zoster Status post fall Intractable nausea and vomiting Recurrent UTI Anxiety Bipolar 1 disorder Pancreatitis Surgical History History of cholecystectomy History of tonsillectomy History of ERCP H/O pyloroplasty History of appendectomy H/O: hysterectomy Social History Household Members: Spouse Housing: Other Housing Other:: trailor Do you presently have visiting nurse or other home services: No Unable to assess alcohol history related to: Refusing to respond Alcohol intake: never Comment: pt refused bed alarm Patient Tobacco Use Status: Former Tobacco user Tobacco use type: Cigarette e-Cigarette/Vaping Use: Never Used Second Hand Smoke Exposure: No Substance Use Type: Marijuana Advance Directives Date on File: 12/03/22 service: No Current occupational status: disabled Cognitive needs: No Hearing needs: No Vision needs: No Review of Systems Const All systems reviewed & are unremarkable except as noted in HPI and below Physical Exam Vital Signs: Last Vital Signs Pulse 95 01/18/25 12:14 BP 107/53 L 01/18/25 12:14 BMI result Body Mass Index 25.6 No apparent distress Nonicteric Abdomen soft, nondistended Alert and oriented x3, normal gait Assessment & Plan Assessment & Plan (1) Type 1 diabetes: Code(s): E10.9 - Type 1 diabetes mellitus without complications Category: Medical (2) Gastroparesis: Code(s): K31.84 - Gastroparesis Category: Medical (3) Nausea and vomiting: Code(s): R11.2 - Nausea with vomiting, unspecified Category: Medical Qualifiers: Vomiting type: unspecified Qualified Code(s): R11.2 - Nausea with vomiting, unspecified (4) GERD (gastroesophageal reflux disease): Code(s): K21.9 - Gastro-esophageal reflux disease without esophagitis Category: Medical Qualifiers: Esophagitis presence: esophagitis presence not specified Qualified Code(s): K21.9 - Gastro-esophageal reflux disease without esophagitis (5) Abdominal pain: Code(s): R10.9 - Unspecified abdominal pain Category: Medical Plan Had a detailed discussion with patient and her that appropriate control and management of underlying diabetes is paramount to management of gastroparesis. It is not surprising that she continues to have bouts of abd pain, N,V as her blood sugars run consistently between 250-300. She was urged to discuss multi-pronged approach with her area captain at next visit including a visit with accounting consultant to discuss meal planning, low glycemic index foods and small particle diet; as well as with special education paraeducator to help her utilize the insulin pump and CGM better. Plan: - Glycemic control. Goal post prandial BG <180 mg/dl - Handout provided on low G.I foods - Small particle diet - Stay upright 60 mins post meals - Since pts with delayed gastric emptying are also predisposed to reflux, cont omeprazole 20 daily - Follow up 7-8 weeks, after shes been seen by [facility]. Coding Level of Care Code Est Pt Level 4 (37065) Diagnoses Type 1 diabetes E10.9 Gastroparesis K31.84 Nausea and vomiting R11.2 Vomiting type: unspecified Gastroesophageal reflux disease, unspecified whether esophagitis present K21.9 Esophagitis presence: esophagitis presence not specified Abdominal pain R10.9
[2025-01-18 12:14] VITALS: BP 107/53; PULSE 95; BMI 25.6
== END 2025-01-18 13:02 | disposition home or self-care (01) ==
LOC: HO.HGI 12:06
PROVIDERS: PCP Internal Medicine; Visit Provider Internal Medicine
DX: E10.9 Type 1 diabetes mellitus without complications (principal); K31.84 Gastroparesis; R11.2 Nausea with vomiting, unspecified; K21.9 Gastro-esophageal reflux disease without esophagitis; R10.9 Unspecified abdominal pain
CPT/HCPCS: 99214

== ENCOUNTER → 2025-01-18 12:05 | Outpatient (BNVA) | payer OTHER, SELFPAY | PROVIDERS: PCP Internal Medicine; Visit Provider Internal Medicine | DX: E10.43 Type 1 diabetes mellitus with diabetic autonomic (poly)neuropathy (principal); R11.2 Nausea with vomiting, unspecified; K21.9 Gastro-esophageal reflux disease without esophagitis; R10.9 Unspecified abdominal pain | CPT/HCPCS: 99212 ==

== ENCOUNTER 2025-02-11 18:28 | Emergency (ER) | payer OTHER, SELFPAY ==
--- NOTE | 2025-02-11 18:38 | ECG_ITS ---
Test Reason : cp Blood Pressure : */* mmHG Vent. Rate : 138 BPM Atrial Rate : 138 BPM P-R Int : 132 ms QRS Dur : 80 ms QT Int : 292 ms P-R-T Axes : 45 31 18 degrees QTcB Int : 442 ms Sinus tachycardia Otherwise normal ECG When compared with ECG of 07-Nov-2024 11:45, No significant change was found Referred By: Deepthi Zavala Electronically Signed By: UZMA TURNER MD
[2025-02-11 18:44] VITALS: BP 165/96; PULSE 138; RESP 28; TEMP 36.9; O2SAT 100; BMI 28.1
[2025-02-11 18:57] LABS: Glucose, Whole Blood 239 mg/dL (60-115)
--- NOTE | 2025-02-11 19:08 | MHC.EDTECH ---
EKG delayed per previous shift, EKG machine was in use at the time.
--- NOTE | 2025-02-11 19:09 | ED_ITS ---
HPI - General Adult General Chief complaint: General Medical Stated complaint: elevated sugar level (diabetic) Time Seen by Provider: 02/11/25 19:09 Source: patient Mode of arrival: ambulatory Limitations: no limitations History of Present Illness ED Provider: HPI narrative: Patient is 49 years old with history of type 1 diabetes on insulin pump, diabetic gastroparesis, cyclical vomiting syndrome, THC use frequent hospitalization for abdominal pain and vomiting episode last admission was in 11/04/2024 for similar presentation today all day patient has not been feeling good having nausea and vomiting multiple times with diffuse abdominal pain similar to that in the past when she comes to the hospital glucometer reading with 260 no fever no chills Related Data Home Medications ?Medication ?Instructions ?Recorded ?Confirmed lamotrigine 200 mg tablet 200 mg PO BID 05/11/2011/04 lorazepam 1 mg tablet 1 mg PO TID PRN Anxiety 04/1511/04/24 zolpidem 10 mg tablet 10 mg PO BEDTIME 05/11/20 risperidone 2 mg tablet 2 mg PO BID 09/13/21 5 insulin aspart U-100 100 unit/mL 0 - 100 unit subcut D AILY 07/23/24 11/04/24 subcutaneous solution (Novolog U-100 Insulin aspart) docusate sodium 100 mg capsule 100 mg PO BID 09/17/24 11/04/24 insulin glargine 100 unit/mL (3 See Rx Instructions .R oute 09/17/24 11/04/24 mL) subcutaneous pen (Lantus .COMPLEX PRN when pump no t working Solostar U-100 Insulin) subcutaneous insulin pump 09/17/24 09/17/24 blood-glucose sensor (Dexcom G6 11/04/24 Sensor device) blood-glucose transmitter (Dexcom 11/04/24 G6 Transmitter device) glucagon 3 mg/actuation nasal mg intranasal 01/18/25 spray (Baqsimi) omeprazole 20 mg capsule,delayed 20 mg PO BID 01/18/25 release Previous Rx's ?Medication ?Instructions ?Recorded midodrine 5 mg tablet 5 mg PO DAILY #90 tabs 07/09 metoprolol tartrate 25 mg tablet 25 mg PO BID #180 tab s 10/18/24 ondansetron 4 mg disintegrating 4 mg PO Q8H PRN nausea and 11/12/24 tablet vomiting #14 tabs Allergies Allergy/AdvReac Type Severity Reaction Status Date / Time morphine (MORPHINE) Allergy Intermediate RASH, Verified 02/11/25 18:49 hives, hives mushroom Allergy Intermediate HIVES/RASH Verified 02/11/25 18:49 Sulfa (Sulfonamide Allergy Mild Rash Verified 02/11/25 18:49 Antibiotics) Review of Systems 2 Review of Systems: Yes all other systems are reviewed and are negative [facility] Past Medical History Medical History NSTEMI (non-ST elevated myocardial infarction) (~2010) Acute UTI Chronic hypertension Diabetes mellitus with gastroparesis Diabetes mellitus type 1 Herpes zoster Status post fall Intractable nausea and vomiting Recurrent UTI Anxiety Bipolar 1 disorder Pancreatitis Surgical History History of cholecystectomy History of tonsillectomy History of ERCP H/O pyloroplasty History of appendectomy H/O: hysterectomy Social History Social History Household Members: Spouse Housing: Other Housing Other:: trailor Do you presently have visiting nurse or other home services: No Unable to assess alcohol history related to: Refusing to respond Alcohol intake: never Comment: pt refused bed alarm Patient Tobacco Use Status: Former Tobacco user Tobacco use type: Cigarette e-Cigarette/Vaping Use: Never Used Second Hand Smoke Exposure: No Substance Use Type: Marijuana Advance Directives: Yes Advance Directives on File: Yes Advance Directives Date on File: 12/03/22 service: No Current occupational status: disabled Cognitive needs: No Hearing needs: No Vision needs: No Physical Exam ED Vital Signs: Vital Signs - 24 hr 02/11/25 18:44 02/11/25 19:59 Temperature 98.4 F Pulse Rate 138 H Respiratory Rate 28 H 39 H Blood Pressure 165/96 H Pulse Oximetry 100 Oxygen Delivery Method Room Air BMI result Body Mass Index 28.1 Appearance: Alert. Oriented X3. No acute distress. Eyes: PERRLA, No Nystagmus ENT: Pharynx normal. Oral Mucosa moist Neck: Normal inspection. Neck supple. CVS: Tachycardic no murmur rub or gallop no Pulses normal. Respiratory: No respiratory distress. Equal air entry bilateral, no wheezing/rales/rhonchi Abdomen: Soft and nontender. Bowel sounds are present, no mass palpable, no CVA tenderness Skin: Skin warm and dry. Normal skin color. Normal skin turgor. Extremities: No lower extremity edema. No calf tenderness Neuro: Oriented X 3. No motor deficit. No sensory deficit.No cerebellar signs , cranial nerves II-XII intact Medications Administered Discontinued Medications Generic Name Dose Route Start Last Admin Trade Name Nanci PRN Reason Stop Dose Admin Ceftriaxone Sodium 1 gm 02/11/25 22:19 02/11/25 22:34 Ceftriaxone Sodium 1 Gm Vial IVPUSH 02/11/25 22:20 1 gm ONCE ONE Administration Hydromorphone HCl 2 mg 02/11/25 19:53 02/11/25 19:59 Hydromorphone Hcl 2 Mg/Ml Vial IVPUSH 02/11/25 19:54 2 mg ONCE ONE Administration Protocol Sodium Chloride 1,000 mls @ 999 mls/hr 02/11/25 19:10 02/11/25 21:04 Ns IV 02/11/25 20:10 Infused .Q1H1M ONE Infusion Sodium Chloride 1,000 mls @ 999 mls/hr 02/11/25 19:53 02/11/25 22:31 Ns IV 02/11/25 20:53 Infused .Q1H1M ONE Infusion Prochlorperazine Edisylate 10 mg 02/11/25 19:53 02/11/25 19:59 Prochlorperazine Edisylate 10 Mg/2 Ml Vial IVPUSH 02/11/25 19:54 10 mg ONCE ONE Administration Medical Decision Making Medical Decision Making [facility] Narrative: Patient with type 1 diabetes with cyclic vomiting syndrome no significant acidosis noticed blood sugar was 250 patient was given IV fluids During stay in the ER patient has stayed well with no vomiting noticed no ketoacidosis noticed patient does have UTI Admission/Observation Consideration of admission/observation: Escalation of care including admission/observation considered Lab Data [facility] Lab Attestation statement: I reviewed the patient's lab results. 02/11/25 19:57 02/11/25 19:18 Labs: Lab Results 02/11/25 02/11/25 02/11/25 Range/Units 18:52 19:07 19:18 WBC (4.8-10.8) X10*3/uL RBC (4.20-5.50) X10*6/uL Hgb (12.0-16.0) g/dl Hct (37.0-47.0) % MCV (80.0-98.0) fL MCH (27.0-33.0) pg MCHC (31.0-35.0) g/dl RDW (11.0-16.0) % Plt Count (160-400) X10*3/uL MPV (9.4-12.3) fL Immature Gran % (Auto) (0.0-0.4) % Neut % (Auto) (45-73) % Lymph % (Auto) (20-40) % Loup % (Auto) (2-11) % Eos % (Auto) (0-4) % Baso % (Auto) (0-2) % Lymph # (Auto) (1.2-4.9) X10*3/uL Loup # (Auto) (0.1-1.2) X10*3/uL Eos # (Auto) (0.0-0.4) X10*3/uL Baso # (Auto) (0.0-0.2) X10*3/uL Abs Immat Gran (auto) (0.00-0.03) X10*3/uL Absolute Neuts (auto) (2.0-8.3) x10*3/uL Absolute Nucleated RBC (0.0-0.012) X10*3/uL Nucleated RBC % (auto) (0.0-0.2) /100WBC VBG pH 7.53 H (7.32-7.43) VBG pCO2 31 mmHg VBG pO2 58 mmHg VBG HCO3 26 (22-26) mmol/L VBG O2 Saturation 85.0 % VBG Base Excess 4.0 mmol/L Sodium 141 (135-145) mmol/L Potassium 3.9 (3.3-5.1) mmol/L Chloride 102 (96-108) mmol/L Carbon Dioxide 20 L (22-29) mmol/L Anion Gap 23 H (12-20) BUN 13 (9-16) mg/dL Creatinine 0.98 (0.5-1.4) mg/dL Estim Creat Clear Calc 67.7 Estimated GFR > 60 POC Glucose 239 H (60-115) mg/dL Random Glucose 251 H (60-115) mg/dL Calcium 9.8 (8.4-10.2) mg/dL Magnesium 1.8 (1.6-2.6) mg/dL Total Bilirubin 0.2 (0.0-1.0) mg/dL AST 23 (5-31) U/L ALT 12 (0-31) U/L Alkaline Phosphatase 156 H (39-117) U/L Troponin I High Sens < 2.7 (<3.5-17.0) ng/L Total Protein 8.8 H (6.5-8.0) g/dL Albumin 4.9 (3.5-5.0) g/dL Lipase 6 L (8-78) U/L Beta-Hydroxybutyrate 0.43 H (0.02-0.27) mmol/L Urine Color Urine Appearance Urine pH (5.0-9.0) Ur Specific [place] (1.005-1.025) Urine Protein (Neg-Trace) mg/dL Urine Glucose (UA) (Negative) mg/dL Urine Ketones (Negative) mg/dL Urine Blood (Negative) Urine Nitrite (Negative) Ur Leukocyte Esterase (Negative) Urine RBC (0-2) /HPF Urine WBC (0-5) /HPF Ur Squamous Epith Cells (0-2) /HPF Urine Bacteria (None Seen) Hyaline Casts (0-2) /LPF 02/11/25 02/11/25 Range/Units 19:57 21:11 WBC 13.9 H (4.8-10.8) X10*3/uL RBC 4.18 L (4.20-5.50) X10*6/uL Hgb 10.5 L (12.0-16.0) g/dl Hct 31.6 L (37.0-47.0) % MCV 75.6 L (80.0-98.0) fL MCH 25.1 L (27.0-33.0) pg MCHC 33.2 (31.0-35.0) g/dl RDW 16.8 H (11.0-16.0) % Plt Count 618 H (160-400) X10*3/uL MPV 8.5 L (9.4-12.3) fL Immature Gran % (Auto) 0.4 (0.0-0.4) % Neut % (Auto) 85.7 H (45-73) % Lymph % (Auto) 11.0 L (20-40) % Loup % (Auto) 2.5 (2-11) % Eos % (Auto) 0.0 (0-4) % Baso % (Auto) 0.4 (0-2) % Lymph # (Auto) 1.5 (1.2-4.9) X10*3/uL Loup # (Auto) 0.3 (0.1-1.2) X10*3/uL Eos # (Auto) 0.0 (0.0-0.4) X10*3/uL Baso # (Auto) 0.1 (0.0-0.2) X10*3/uL Abs Immat Gran (auto) 0.05 H (0.00-0.03) X10*3/uL Absolute Neuts (auto) 11.9 H (2.0-8.3) x10*3/uL Absolute Nucleated RBC 0.000 (0.0-0.012) X10*3/uL Nucleated RBC % (auto) 0.0 (0.0-0.2) /100WBC VBG pH (7.32-7.43) VBG pCO2 mmHg VBG pO2 mmHg VBG HCO3 (22-26) mmol/L VBG O2 Saturation % VBG Base Excess mmol/L Sodium (135-145) mmol/L Potassium (3.3-5.1) mmol/L Chloride (96-108) mmol/L Carbon Dioxide (22-29) mmol/L Anion Gap (12-20) BUN (9-16) mg/dL Creatinine (0.5-1.4) mg/dL Estim Creat Clear Calc Estimated GFR POC Glucose (60-115) mg/dL Random Glucose (60-115) mg/dL Calcium (8.4-10.2) mg/dL Magnesium (1.6-2.6) mg/dL Total Bilirubin (0.0-1.0) mg/dL AST (5-31) U/L ALT (0-31) U/L Alkaline Phosphatase (39-117) U/L Troponin I High Sens (<3.5-17.0) ng/L Total Protein (6.5-8.0) g/dL Albumin (3.5-5.0) g/dL Lipase (8-78) U/L Beta-Hydroxybutyrate (0.02-0.27) mmol/L Urine Color Yellow Urine Appearance Clear Urine pH 7.0 (5.0-9.0) Ur Specific [place] 1.015 (1.005-1.025) Urine Protein 100 (2+) H (Neg-Trace) mg/dL Urine Glucose (UA) >=1000 H (Negative) mg/dL Urine Ketones 15 (Negative) mg/dL Urine Blood Small (1+) H (Negative) Urine Nitrite Negative (Negative) Ur Leukocyte Esterase Small (1+) H (Negative) Urine RBC 11-20 H (0-2) /HPF Urine WBC >50 H (0-5) /HPF Ur Squamous Epith Cells 6-10 (0-2) /HPF Urine Bacteria 4+ (None Seen) Hyaline Casts 3-5 (0-2) /LPF Discharge Plan Discharge Clinical Impression: Cyclical vomiting syndrome, Diabetes mellitus with gastroparesis Patient Disposition: Home, Self-Care Instructions: Acute Nausea and Vomiting (ED), Gastroparesis (ED) Additional Instructions: Drink plenty of fluids Take medication as prescribed by your PCP and manager utilization Prescriptions: No Action midodrine 5 mg tablet 5 mg PO DAILY Qty: 90 2RF metoprolol tartrate 25 mg tablet 25 mg PO BID Qty: 180 1RF lorazepam 1 mg Tablet 1 mg PO TID PRN (Reason: Anxiety) lamotrigine 200 mg Tablet 200 mg PO BID zolpidem 10 mg Tablet 10 mg PO BEDTIME risperidone 2 mg tablet 2 mg PO BID insulin aspart U-100 [Novolog U-100 Insulin aspart] 100 unit/mL solution 0 - 100 unit subcut DAILY Rx Instructions: insulin pump docusate sodium 100 mg capsule 100 mg PO BID insulin glargine [Lantus Solostar U-100 Insulin] 100 unit/mL (3 mL) insulin pen See Rx Instructions .ROUTE .COMPLEX PRN (Reason: when pump not working) Rx Instructions: Patient only utilizes when pump is not working. Patient has a Tandem pump. (DME) subcutaneous insulin pump Misc MISCELLANEOUS Rx Instructions: *Pump Brand is Tandem* Uses Novolog 0-100 units with pump (DME) Dexcom G6 Sensor Device 1 ea MISCELLANEOUS Q10D (DME) Dexcom G6 Transmitter Device MISCELLANEOUS ondansetron 4 mg tablet,disintegrating 4 mg PO Q8H PRN (Reason: nausea and vomiting) Qty: 14 0RF Baqsimi 3 mg/actuation spray,non-aerosol intranasal omeprazole 20 mg capsule,delayed release(DR/EC) 20 mg PO BID Print Language: Azeri
[2025-02-11 19:29] LABS: VBG HCO3 26 mmol/L (22-26); VBG O2 % Saturation 85.0 %
[2025-02-11 19:30] LABS: Venous Blood Gas Refer to POC result
--- NOTE | 2025-02-11 19:33 | PC.NURSE ---
EKG completed by [employer] security system technician and reviewed by ED provider. 22 G IV line established in L wrist, labs drawn and sent to lab for processing, 1 L NS hung and infusing w/o issues. HR 138-140, sinus rhythm. Patient c/o 9/10 sharp pain in upper abdomen, no nausea/vomiting/diarrhea. Deepthi, ED provider informed of HR and patient's current level of pain. Patient currently resting in stretcher bed, call ulloa within patient's reach.
[2025-02-11 19:48] LABS: Alanine Aminotransferase 12 U/L (0-31); Albumin Level 4.9 g/dL (3.5-5.0); Alkaline Phosphatase 156 U/L (39-117); Anion Gap 23 (12-20); Aspartate Amino Transferase 23 U/L (5-31); Blood Urea Nitrogen 13 mg/dL (9-16); Calcium 9.8 mg/dL (8.4-10.2); Carbon Dioxide 20 mmol/L (22-29); Chloride 102 mmol/L (96-108); Creatinine Clr Calc Pharmacy 67.7; Estimated Glomerular Filt Rate > 60; Lipase 6 U/L (8-78); Magnesium 1.8 mg/dL (1.6-2.6); Potassium 3.9 mmol/L (3.3-5.1); Sodium 141 mmol/L (135-145); Total Protein 8.8 g/dL (6.5-8.0)
[2025-02-11 19:56] LABS: Troponin-I High Sensitivity < 2.7 ng/L (<3.5-17.0)
[2025-02-11 19:59] VITALS: RESP 39
--- NOTE | 2025-02-11 20:04 | PC.NURSE ---
per SEP, pt medicated to relief nausea & pain.
[2025-02-11 20:08] LABS: Hematocrit 31.6 % (37.0-47.0); Hemoglobin 10.5 g/dl (12.0-16.0); Imm Gran Abs Auto 0.05 X10*3/uL (0.00-0.03); Imm Gran Pct Auto 0.4 % (0.0-0.4); Lymphocytes Absolute Auto 1.5 X10*3/uL (1.2-4.9); Mean Corpuscular HGB Conc 33.2 g/dl (31.0-35.0); Mean Corpuscular Hemoglobin 25.1 pg (27.0-33.0); Mean Corpuscular Volume 75.6 fL (80.0-98.0); NRBC Abs Auto 0.000 X10*3/uL (0.0-0.012); NRBC Pct Auto 0.0 /100WBC (0.0-0.2); Platelet Count 618 X10*3/uL (160-400); Red Blood Count 4.18 X10*6/uL (4.20-5.50); White Blood Count 13.9 X10*3/uL (4.8-10.8)
--- NOTE | 2025-02-11 21:14 | PC.NURSE ---
Pt ambulated 1 assist with RN to the rest room. Was able to provide UA sample. Sample sent to labs. Pt is back in bed, Second bag of 1L NS started. Pt resting in bed. Will continue to monitor. Call ulloa at pts bedside.
[2025-02-11 21:18] LABS: Appearance Urine Clear; Glucose Urine UA >=1000 mg/dL (Negative); PH 7.0 (5.0-9.0); Specific Gravity - Urine 1.015 (1.005-1.025); UMIC TRIGGER UACC YES
[2025-02-11 21:20] LABS: UACC Culture Trigger YES
[2025-02-11 22:17] LABS: MANUAL DIFF FLAG NO
--- NOTE | 2025-02-11 22:20 | PC.NURSE ---
Patient tested +for UTI. Per Dr. Ledezma blood draw for Lactic and Blood Cultures x2 is not needed prior Ceftriaxone 1 G IV administration.
--- NOTE | 2025-02-11 23:06 | PC.NURSE ---
Per , he wanted pt to try PO trial before D/C. Pt refused. made aware.
== END 2025-02-12 01:30 | disposition home or self-care (01) ==
PROVIDERS: Physician Assistant Medical; Emergency Provider Internal Medicine; PCP Internal Medicine
DX: E10.43 Type 1 diabetes mellitus with diabetic autonomic (poly)neuropathy (principal); K31.84 Gastroparesis; R11.15 Cyclical vomiting syndrome unrelated to migraine; R07.89 Other chest pain; R00.0 Tachycardia, unspecified; R11.0 Nausea; Z79.899 Other long term (current) drug therapy; Z87.891 Personal history of nicotine dependence; Z79.4 Long term (current) use of insulin
CPT/HCPCS: 36415; 80053; 81001; 82010; 82803; 82947; 83690; 83735; 84484; 85025; 87086; 87088; 87186; 93005; 96361; 96374; 96375; 99284; J0616; J0696; J0737; J1171

== ENCOUNTER → 2025-02-11 18:38 | Outpatient (BNV) | payer OTHER, SELFPAY | PROVIDERS: Emergency Provider Internal Medicine; PCP Internal Medicine; Visit Provider Internal Medicine Cardiovascular Disease | DX: R00.0 Tachycardia, unspecified (principal) | CPT/HCPCS: 93010 ==

== ENCOUNTER 2025-04-21 21:47 | Emergency (ER) | payer OTHER, SELFPAY ==
--- NOTE | ~2025-04-21 | CT_ITS ---
CLINICAL HISTORY: palate abscess CT facial bones. Contrast Comparison: None provided Findings: Periapical lucency involving teeth 9 and 10. This is associated with posterior maxillary cortical breach and communication with a gas and fluid collection along the undersurface of the hard palate measuring 2 x 1.6 x 0.7 cm. Mild mucosal thickening left maxillary sinus. No sinus fluid. No acute fracture or dislocation. Temporomandibular joints intact. Orbital contents within normal limits. Impression: 1. Left maxillary periodontal disease appears to communicate with a potential abscess along the undersurface of the hard palate. This document has been electronically signed by: Zainab Dodge MD on 04/22/2025 04:44:01
--- NOTE | ~2025-04-21 | XR_ITS ---
CLINICAL HISTORY: sob 2 view chest x-ray Comparison: CR - XR CHEST 1V - 11/04/24 05:24 EDT Findings: The lungs are clear. Normal size heart. A right-sided MediPort is present. No acute fracture. IMPRESSION: 1. No acute findings. This document has been electronically signed by: Evens Juares MD on 04/21/2025 22:47:46
--- NOTE | ~2025-04-21 | CT_ITS ---
EXAMINATION: CT ABDOMEN PELVIS WITHOUT IV CONTRAST HISTORY: pain COMPARISON: Comparison is made with the prior examination dated 12/02/2024. TECHNIQUE: CT scan of the abdomen and pelvis was performed without contrast using standard departmental protocol. Coronal and sagittal reformatted images were generated and reviewed. Oral contrast material was not administered at the request of the referring physician. This CT exam was performed with one or more of the following dose reduction techniques: automated exposure control, adjustment of the mA and/or kV according to patient size, use of iterative reconstruction technique. DLP: 615 mGy-cm FINDINGS: LOWER CHEST: The visualized lung bases are clear. There is no pleural effusion. CARDIOVASCULATURE: The heart is normal in size. There is no pericardial effusion. LIVER: The liver is normal in size and contour. Evaluation for masses is limited without IV contrast administration. GALLBLADDER / BILE DUCTS: The gallbladder is surgically absent. There is no intra or extrahepatic biliary ductal dilatation. SPLEEN: The spleen is normal in size and has an unremarkable unenhanced appearance. PANCREAS: The pancreas has an unremarkable unenhanced appearance. ADRENAL GLANDS: Unremarkable. KIDNEYS/RETROPERITONEUM: No renal calculi are identified. There is no hydronephrosis. Excreted contrast is seen within the renal collecting systems from prior CT of the face. LYMPH NODES: No retroperitoneal lymphadenopathy is identified in the abdomen or pelvis. VASCULATURE: The abdominal aorta is normal in caliber. MESENTERY/PERITONEUM: No free fluid. No masses. There is no free intraperitoneal gas. STOMACH: There is marked wall thickening of the distal esophagus. The stomach is unremarkable. SMALL BOWEL: The small bowel is normal in caliber. COLON: The colon is unremarkable. APPENDIX: The appendix is not seen, however no inflammatory changes are seen adjacent to the cecum. URINARY BLADDER/PELVIC ORGANS: There is wall thickening of the anterior aspect of the urinary bladder without change. The patient is status post hysterectomy. BONES / SOFT TISSUES: No suspicious bony or soft tissue abnormalities. CT/CT abdomen pelvis wo IV con IMPRESSION: 1. Marked wall thickening of the distal esophagus. Further evaluation with barium swallow or upper endoscopy is recommended. 2. Wall thickening of the anterior aspect of the urinary bladder without change. Electronically signed by: Anton Zamora MD 04/22/2025 08:35 AM EDT RP
[2025-04-21 21:50] VITALS: BP 89/52; PULSE 104; RESP 18; TEMP 37.2; O2SAT 98; BMI 25.1
--- NOTE | 2025-04-21 21:50 | ED_ITS ---
HPI - Skin/Abscess/Foreign Bdy General Chief complaint: Dental/Oral Stated complaint: boil top of mouth, SOB Time Seen by Provider: 04/21/25 22:33 Source: patient Limitations: no limitations History of Present Illness ED Provider: Yoko Bai PA-C HPI narrative: 49F with past medical history of GERD, gastroparesis, recurrent pancreatitis, T1DM, bipolar 1 disorder, anxiety, idiopathic hypotension presents to the ED for evaluation of a mass on the roof of her mouth. She first noticed it 2 days ago and that it has doubled in size in the last 2 hours. States the mass is painful and affecting her speech and breathing. Endorsing pleuritic chest pain. Has not been able to eat or drink much due to pain. Related Data Home Medications ?Medication ?Instructions ?Recorded ?Confirmed lamotrigine 200 mg tablet 200 mg PO BID 05/11/2011/04 lorazepam 1 mg tablet 1 mg PO TID PRN Anxiety 04/1511/04/24 zolpidem 10 mg tablet 10 mg PO BEDTIME 05/11/20 risperidone 2 mg tablet 2 mg PO BID 09/13/21 5 insulin aspart U-100 100 unit/mL 0 - 100 unit subcut D AILY 07/23/24 11/04/24 subcutaneous solution (Novolog U-100 Insulin aspart) docusate sodium 100 mg capsule 100 mg PO BID 09/17/24 11/04/24 insulin glargine 100 unit/mL (3 See Rx Instructions .R oute 09/17/24 11/04/24 mL) subcutaneous pen (Lantus .COMPLEX PRN when pump no t working Solostar U-100 Insulin) subcutaneous insulin pump 09/17/24 09/17/24 blood-glucose sensor (Dexcom G6 11/04/24 Sensor device) blood-glucose transmitter (Dexcom 11/04/24 G6 Transmitter device) glucagon 3 mg/actuation nasal mg intranasal 01/18/25 spray (Baqsimi) omeprazole 20 mg capsule,delayed 20 mg PO BID 01/18/25 release Previous Rx's ?Medication ?Instructions ?Recorded midodrine 5 mg tablet 5 mg PO DAILY #90 tabs 07/09 metoprolol tartrate 25 mg tablet 25 mg PO BID #180 tab s 10/18/24 ondansetron 4 mg disintegrating 4 mg PO Q8H PRN nausea and 11/12/24 tablet vomiting #14 tabs cefuroxime axetil 250 mg tablet 250 mg PO BID 7 days # 14 tabs 02/11/25 ondansetron 4 mg disintegrating 4 mg PO Q6-8H PRN naus ea and 02/11/25 tablet vomiting #20 tabs oxycodone 5 mg tablet 5 mg PO Q6H PRN pain #20 tab s 02/11/25 levofloxacin 750 mg tablet 750 mg PO DAILY 5 days #5 t abs 02/16/25 clindamycin HCl 300 mg capsule 300 mg PO TID 5 days #1 5 caps 04/22/25 (Cleocin HCl) Allergies Allergy/AdvReac Type Severity Reaction Status Date / Time morphine (MORPHINE) Allergy Intermediate RASH, Verified 04/21/25 21:54 hives, hives mushroom Allergy Intermediate HIVES/RASH Verified 04/21/25 21:54 Sulfa (Sulfonamide Allergy Mild Rash Verified 04/21/25 21:54 Antibiotics) Review of Systems 2 Review of Systems: Yes all other systems are reviewed and are negative Constitutional: Constitutional: Reports anorexia, Reports difficulty sleeping and Denies fever(s) ENT: Reports halitosis, Reports dental pain, Reports facial pain, Reports mouth lesions, Reports odynophagia, Denies throat swelling and Denies tongue swelling Cardiovascular: Cardiovascular: Denies chest pain and Denies dyspnea Respiratory: Respiratory: Reports pain on inspiration and Denies dyspnea Gastrointestinal: Gastrointestinal: Reports odynophagia Allergic/Immunologic: Allergic/Immunologic: Denies throat swelling and Denies tongue swelling PMF Past Medical History Attestation statement: The following information was validated with the patient. Medical History NSTEMI (non-ST elevated myocardial infarction) (~2010) Acute UTI Chronic hypertension Diabetes mellitus with gastroparesis Diabetes mellitus type 1 Herpes zoster Status post fall Intractable nausea and vomiting Recurrent UTI Anxiety Bipolar 1 disorder Pancreatitis Surgical History History of cholecystectomy History of tonsillectomy History of ERCP H/O pyloroplasty History of appendectomy H/O: hysterectomy Social History Social History Household Members: Spouse Housing: Other Housing Other:: trailor Do you presently have visiting nurse or other home services: No Alcohol intake: never Comment: pt refused bed alarm Patient Tobacco Use Status: Former Tobacco user Tobacco use type: Cigarette e-Cigarette/Vaping Use: Never Used Second Hand Smoke Exposure: No Substance Use Type: Marijuana Advance Directives Date on File: 12/03/22 service: No Current occupational status: disabled Cognitive needs: No Hearing needs: No Vision needs: No Physical Exam 2 Vital Signs: Vital Signs: Last Vital Signs Temp 98.2 F 04/22/25 10:33 Pulse 93 04/22/25 10:33 Resp 16 04/22/25 10:33 BP 90/40 L 04/22/25 10:33 Pulse Ox 97 04/22/25 10:33 O2 Del Method Room Air 04/22/25 10:33 BMI result Body Mass Index 25.1 Const: Other: Alert Orientation/consciousness: patient oriented x3 HEENT: Other: Tender swelling over upper palate on the left, overall poor dentition, very painful to touch, fluctuant no active drainage Head: Yes normocephalic and Yes atraumatic Teeth and gingiva: caries and poor dentition Throat: No uvula laterally displaced Throat image: 1. soft, erythematous Resp: Effort & Inspection: normal respiratory effort and decreased respiratory effort Auscultation: clear to auscultation bilaterally Cardio: Other: Normal peripheral perfusion Rate: tachycardic Rhythm: regular rhythm Skin: Other: Warm dry no rash Neuro: General: patient oriented x3, gait normal, no focal motor deficits and CN's II-XI intact bilaterally Psych: Other: cooperative Course Course Course Narrative: This is a RME preformed in triage by Ewelina Joyce PA-C. Date: 04/21/2025, time 951 pm. Patient presents with 'boil on roof of mouth'. Here with . Keeps taking random deep breaths feeling like she cannot get good amount of air in. SOB started when she noticed bump on roof of mouth getting bigger. Bump started yesterday. No trauma. Tired the last three days. Hx of gastroparesis (blames vomiting and decrease in appetite on this, no change in baseline per patient), no fevers. No recent dental work, no dizziness or headaches Hx of Bipolar I, gastoparesis, DMI (133 now), anxiety, NSTEMI, GERD, hypotension (at baseline 90s/60s) per patient PE: hard palate behind left upper incisor 1.25 cm cyst like structure, not red, feels fluctuant (almost like hematoma vs cyst), random deep breath gasps noted Work UP: (given PMH and c/o SOB) cardiac labs, inflammatory markers, CXR (facial CT with contrast considered, but cannot order from triage) Will defer full ROS and PE to treating provider. Patient will continued to be monitored in the interim. Reevaluation(s) Reevaluation #1: I Yoko Bai personally performed the history, physical and assessment. Silvia BANKS helped to formulate the documentation Reevaluation #2: CT scan pending at the time of sign-out and patient's final disposition Time: 07:23 Reevaluation #3: I, Dr. Nance have take over the care of this patient, I reviewed pertinent blood work and imaging, re-evaluated the patient when appropriate. On re- evaluation patient has likely a dental source abscess over the anterior hard palate she has extremely poor dentition of the front left incisors were down to the gumline, the sac that she has is beginning to follow up with pus again, I spoke to the patient I am going to provide lidocaine injection and perform incision and drainage as I believe it was needle drained but needs to be opened up, she is also pending further imaging to make sure there was no extension of any infectious etiology from the facial abscess but also she has had abdominal discomfort on has been vomiting. Of note patient reports that her blood pressure is very low and 80/50 is a normal blood pressure for her 8:00 AM 04/22/2025 (Dr. Leander Nance): I had patient is swish lidocaine, and then using 11 blade make an incision over the sac of the hard palate, another 2 cc of purulence was discharged, patient tolerated procedure well, also patient states she has nausea and she has pretty advanced gastroparesis and requested something for that. Still awaiting for imaging. I anticipate if she is to be discharged to be discharged with oral antibiotics and mouth care, also she has microcytic anemia, I will make sure that patient is aware 10:21 AM 04/22/2025 (Dr. Leander Nance): left maxillary periodontal disease with potential abscess along the undersurface of the hard palate on CT, patient updated we will discharge with oral antibiotics and oral surgery follow up recommendations patient understood Medications Administered Discontinued Medications Generic Name Dose Route Start Last Admin Trade Name Freq PRN Reason Stop Dose Admin Amoxicillin/Clavulanate Potassium 875 mg 04/22/25 00:49 04/22/25 01:00 Amoxicillin/Potassium Clav 875 Mg Tablet PO 04/22/25 00:50 875 mg ONCE ONE Administration Clindamycin Phosphate 600 mg in 50 mls @ 100 mls/hr 04/22/25 01:13 04/22/25 05:08 Cleocin IV 04/22/25 01:42 Infused ONCE ONE Infusion Potassium Chloride 10 meq in 100 mls @ 100 mls/hr 04/22/25 05:15 04/22/25 08:51 Potassium Chloride/H20 IV 04/22/25 07:14 Infused Q1H RAISA Infusion Ketorolac Tromethamine 15 mg 04/22/25 01:13 04/22/25 02:07 Ketorolac Tromethamine 15 Mg/Ml Vial IVPUSH 04/22/25 01:14 15 mg ONCE ONE Administration Lidocaine HCl 15 ml 04/22/25 07:25 04/22/25 07:44 Lidocaine Hcl Viscous 2 % 15 Ml Solution MUCOUS MEM 04/22/25 07:26 15 ml ONCE ONE Administration Lidocaine/Epinephrine 10 ml 04/21/25 23:24 04/22/25 00:20 Lidocaine Hcl 1%/Epi 1:100,000 10 Ml Vial INFILTRATI 04/21/25 23:25 Not Given ONCE ONE Metoclopramide HCl 10 mg 04/22/25 05:05 04/22/25 05:18 Metoclopramide Hcl 10 Mg/2 Ml Vial IVPUSH 04/22/25 05:06 10 mg ONCE ONE Administration Metoclopramide HCl 10 mg 04/22/25 05:59 04/22/25 06:20 Metoclopramide Hcl 10 Mg/2 Ml Vial IVPUSH 04/22/25 06:00 10 mg ONCE ONE Administration Metoclopramide HCl 10 mg 04/22/25 07:45 04/22/25 08:44 Metoclopramide Hcl 10 Mg/2 Ml Vial IVPUSH 04/22/25 07:46 Not Given ONCE ONE Midazolam HCl 4 mg 04/21/25 23:23 04/21/25 23:49 Midazolam Hcl 2 Mg/2 Ml Vial IVPUSH 04/21/25 23:24 4 mg ONCE ONE Administration Potassium Chloride 40 meq 04/22/25 01:14 04/22/25 05:09 Potassium Chloride Er 20 Meq Tab.Er.Prt PO 04/22/25 01:15 Not Given ONCE ONE Medical Decision Making Medical Decision Making [facility] Narrative: 49F with past medical history of GERD, gastroparesis, recurrent pancreatitis, T1DM, bipolar 1 disorder, anxiety, idiopathic hypotension presents to the ED for evaluation of a mass on the roof of her mouth. She first noticed it 2 days ago and that it has doubled in size in the last 2 hours. States the mass is painful and affecting her speech and breathing. Endorsing pleuritic chest pain. Has not been able to eat or drink much due to pain. Has not seen a dentist in a very long time, poor dentition. I've considered the following diagnoses: palatal abscess due to dental infection, mucus retention or epidermoid cyst, torus palatinus, pleomorphic adenoma. Clinical presentation most consistent with abscess. Fluctuant and easily drainable. With pleuritic chest pain PE, ACS, pneumothorax, pneumonia were considered. D dimer negative. Troponin flat, EKG showing NSR. CXR showed no evidence of pneumothorax or pneumonia. Plan: I&D then augmentin...... She has significant leukocytosis, we will be obtaining imaging. Adding blood cultures, lactic and starting clindamycin. She is also anemic, almost at the point of transfusion, she has no vaginal bleeding she had a hysterectomy, she denies melena, we will obtain guaiac. I've reviewed the following tests: CBC, CMP, ESR/CRP, D Dimer, troponin....... Leukocytosis of 21.8 with left shift, chronic thrombocytosis, anemic, 7.7 and 23.2 looks like iron deficiency anemia inflammatory, markers elevated as well ESR 58, 5.74, potassium subtly low at 3.2, no additional electrolyte abnormalities, lactic2.4 repeat 1.9 Gave 20 mEq of IV potassium EKG Test Reason : sob Blood Pressure : */* mmHG Vent. Rate : 99 BPM Atrial Rate : 99 BPM P-R Int : 122 ms QRS Dur : 82 ms QT Int : 342 ms P-R-T Axes : 59 45 48 degrees QTcB Int : 438 ms Normal sinus rhythm Normal ECG When compared with ECG of 11-Feb-2025 19:00, Nonspecific T wave abnormality no longer evident in Inferior leads CXR Findings: The lungs are clear. Normal size heart. A right-sided MediPort is present. No acute fracture. IMPRESSION: 1. No acute findings. Differential Diagnosis Differential Diagnoses: The differential diagnosis associated with the presentation includes See medical decision-making Admission/Observation Consideration of admission/observation: Escalation of care including admission/observation considered Not applicable Lab Data MDM Lab Attestation statement: I reviewed the patient's lab results. 04/21/25 23:41 04/21/25 23:41 Labs: Lab Results 04/21/25 04/22/25 04/22/25 Range/Units 23:41 02:05 04:33 WBC 21.8 H (4.8-10.8) X10*3/uL RBC 2.96 L D (4.20-5.50) X10*6/uL Hgb 7.7 L D (12.0-16.0) g/dl Hct 23.2 L D (37.0-47.0) % MCV 78.4 L (80.0-98.0) fL MCH 26.0 L (27.0-33.0) pg MCHC 33.2 (31.0-35.0) g/dl RDW 17.3 H (11.0-16.0) % Plt Count 529 H (160-400) X10*3/uL MPV 8.6 L (9.4-12.3) fL Immature Gran % (Auto) 0.5 H (0.0-0.4) % Neut % (Auto) 80.2 H (45-73) % Lymph % (Auto) 11.2 L (20-40) % Dougherty % (Auto) 7.8 (2-11) % Eos % (Auto) 0.1 (0-4) % Baso % (Auto) 0.2 (0-2) % Lymph # (Auto) 2.4 (1.2-4.9) X10*3/uL Dougherty # (Auto) 1.7 H (0.1-1.2) X10*3/uL Eos # (Auto) 0.0 (0.0-0.4) X10*3/uL Baso # (Auto) 0.1 (0.0-0.2) X10*3/uL Abs Immat Gran (auto) 0.12 H (0.00-0.03) X10*3/uL Absolute Neuts (auto) 17.5 H (2.0-8.3) x10*3/uL Absolute Nucleated RBC 0.000 (0.0-0.012) X10*3/uL Nucleated RBC % (auto) 0.0 (0.0-0.2) /100WBC Smear Tech's Comments VERIFIED ESR 58 H (0-20) MM/HR D-Dimer High Sensitivty 186 NG/ML Sodium 139 (135-145) mmol/L Potassium 3.2 L (3.3-5.1) mmol/L Chloride 102 (96-108) mmol/L Carbon Dioxide 27 (22-29) mmol/L Anion Gap 13 (12-20) BUN 17 H (9-16) mg/dL Creatinine 1.14 (0.5-1.4) mg/dL Estim Creat Clear Calc 57.4 Estimated GFR 50 Random Glucose 165 H (60-115) mg/dL Lactic Acid 2.4 H* 1.9 (0.5-2.0) mmol/L Lactic Acid F/U @ 2Hr (0.5-2.0) mmol/L Calcium 8.5 D (8.4-10.2) mg/dL Total Bilirubin 0.3 (0.0-1.0) mg/dL AST 17 (5-31) U/L ALT 9 (0-31) U/L Alkaline Phosphatase 96 (39-117) U/L Troponin I High Sens < 2.7 (<3.5-17.0) ng/L C-Reactive Protein 5.74 H (< or = 0.50) mg/dL Total Protein 6.3 L (6.5-8.0) g/dL Albumin 3.5 (3.5-5.0) g/dL Stool Occult Blood (NEGATIVE) 04/22/25 04/22/25 Range/Units 05:20 09:07 WBC (4.8-10.8) X10*3/uL RBC (4.20-5.50) X10*6/uL Hgb (12.0-16.0) g/dl Hct (37.0-47.0) % MCV (80.0-98.0) fL MCH (27.0-33.0) pg MCHC (31.0-35.0) g/dl RDW (11.0-16.0) % Plt Count (160-400) X10*3/uL MPV (9.4-12.3) fL Immature Gran % (Auto) (0.0-0.4) % Neut % (Auto) (45-73) % Lymph % (Auto) (20-40) % Dougherty % (Auto) (2-11) % Eos % (Auto) (0-4) % Baso % (Auto) (0-2) % Lymph # (Auto) (1.2-4.9) X10*3/uL Dougherty # (Auto) (0.1-1.2) X10*3/uL Eos # (Auto) (0.0-0.4) X10*3/uL Baso # (Auto) (0.0-0.2) X10*3/uL Abs Immat Gran (auto) (0.00-0.03) X10*3/uL Absolute Neuts (auto) (2.0-8.3) x10*3/uL Absolute Nucleated RBC (0.0-0.012) X10*3/uL Nucleated RBC % (auto) (0.0-0.2) /100WBC Smear Tech's Comments ESR (0-20) MM/HR D-Dimer High Sensitivty NG/ML Sodium (135-145) mmol/L Potassium (3.3-5.1) mmol/L Chloride (96-108) mmol/L Carbon Dioxide (22-29) mmol/L Anion Gap (12-20) BUN (9-16) mg/dL Creatinine (0.5-1.4) mg/dL Estim Creat Clear Calc Estimated GFR Random Glucose (60-115) mg/dL Lactic Acid (0.5-2.0) mmol/L Lactic Acid F/U @ 2Hr 1.3 (0.5-2.0) mmol/L Calcium (8.4-10.2) mg/dL Total Bilirubin (0.0-1.0) mg/dL AST (5-31) U/L ALT (0-31) U/L Alkaline Phosphatase (39-117) U/L Troponin I High Sens (<3.5-17.0) ng/L C-Reactive Protein (< or = 0.50) mg/dL Total Protein (6.5-8.0) g/dL Albumin (3.5-5.0) g/dL Stool Occult Blood NEGATIVE (NEGATIVE) Radiology Impression Discussion of test interpretation with radiology: I have reviewed the radiologist's reading. Radiologist Impression: 1. Marked wall thickening of the distal esophagus. Further evaluation with barium swallow or upper endoscopy is recommended. 2. Wall thickening of the anterior aspect of the urinary bladder without change. Procedures Procedure Narrative Procedure Narrative: Ultrasound-guided IV 20 gauge 1-3/4 inch IV placed in left upper extremity. Adequate blood return flushes well secured with Tegaderm Discharge Plan Discharge Clinical Impression: Hard palate abscess Patient Disposition: Home, Self-Care Additional Instructions: You had an abscess of the hard palate that was drained, it is likely secondary to dental infection. Take the Augmentin as directed, you need to make an appointment with your dentist call tomorrow to schedule an appointment. You also had CT of the abdomen and pelvis and CT of the face that did confirm that you have periodontal disease and you have an abscess that was drained and it is coming from the periodontal disease, I am starting you on antibiotics, continue them as prescribed, worsening issues concerns come back to the ER,. Prescriptions: New clindamycin HCl [Cleocin HCl] 300 mg capsule 300 mg PO TID 5 Days Qty: 15 0RF No Action midodrine 5 mg tablet 5 mg PO DAILY Qty: 90 2RF metoprolol tartrate 25 mg tablet 25 mg PO BID Qty: 180 1RF lorazepam 1 mg Tablet 1 mg PO TID PRN (Reason: Anxiety) lamotrigine 200 mg Tablet 200 mg PO BID zolpidem 10 mg Tablet 10 mg PO BEDTIME risperidone 2 mg tablet 2 mg PO BID cefuroxime axetil 250 mg tablet 250 mg PO BID 7 Days Qty: 14 0RF ondansetron 4 mg tablet,disintegrating 4 mg PO Q6-8H PRN (Reason: nausea and vomiting) Qty: 20 0RF oxycodone 5 mg tablet 5 mg PO Q6H PRN (Reason: pain) Qty: 20 0RF Rx Instructions: Partial Fill upon patient request. levofloxacin 750 mg tablet 750 mg PO DAILY 5 Days Qty: 5 0RF insulin aspart U-100 [Novolog U-100 Insulin aspart] 100 unit/mL solution 0 - 100 unit subcut DAILY Rx Instructions: insulin pump docusate sodium 100 mg capsule 100 mg PO BID insulin glargine [Lantus Solostar U-100 Insulin] 100 unit/mL (3 mL) insulin pen See Rx Instructions .ROUTE .COMPLEX PRN (Reason: when pump not working) Rx Instructions: Patient only utilizes when pump is not working. Patient has a Tandem pump. (DME) subcutaneous insulin pump Misc MISCELLANEOUS Rx Instructions: *Pump Brand is Tandem* Uses Novolog 0-100 units with pump (DME) Dexcom G6 Sensor Device 1 ea MISCELLANEOUS Q10D (DME) Dexcom G6 Transmitter Device MISCELLANEOUS ondansetron 4 mg tablet,disintegrating 4 mg PO Q8H PRN (Reason: nausea and vomiting) Qty: 14 0RF Baqsimi 3 mg/actuation spray,non-aerosol intranasal omeprazole 20 mg capsule,delayed release(DR/EC) 20 mg PO BID Stand Alone Forms: Work/School Release Interventions: ED Discharge Assessment Last Done: 04/22/25 10:33 Discharge Date/Time: 04/22/25 10:35 Print Language: Vietnamese
--- NOTE | 2025-04-21 21:58 | ECG_ITS ---
Test Reason : sob Blood Pressure : */* mmHG Vent. Rate : 99 BPM Atrial Rate : 99 BPM P-R Int : 122 ms QRS Dur : 82 ms QT Int : 342 ms P-R-T Axes : 59 45 48 degrees QTcB Int : 438 ms Normal sinus rhythm Normal ECG When compared with ECG of 11-Feb-2025 19:00, Nonspecific T wave abnormality no longer evident in Inferior leads Referred By: Ewelina Joyce Electronically Signed By: UZMA TURNER MD
--- NOTE | 2025-04-21 22:21 | PC.NURSE ---
Informed by XR pt had near syncopal episode in XR. pipe coverer Tiana made aware, pt currently in phleb chair getting labs drawn while bed spot being made.
[2025-04-21 23:08] VITALS: PULSE 91; RESP 20; O2SAT 99
[2025-04-21 23:49] LABS: Hematocrit 23.2 % (37.0-47.0); Hemoglobin 7.7 g/dl (12.0-16.0); Imm Gran Abs Auto 0.12 X10*3/uL (0.00-0.03); Imm Gran Pct Auto 0.5 % (0.0-0.4); Lymphocytes Absolute Auto 2.4 X10*3/uL (1.2-4.9); MANUAL DIFF FLAG SCAN; Mean Corpuscular HGB Conc 33.2 g/dl (31.0-35.0); Mean Corpuscular Hemoglobin 26.0 pg (27.0-33.0); Mean Corpuscular Volume 78.4 fL (80.0-98.0); NRBC Abs Auto 0.000 X10*3/uL (0.0-0.012); NRBC Pct Auto 0.0 /100WBC (0.0-0.2); Platelet Count 529 X10*3/uL (160-400); Red Blood Count 2.96 X10*6/uL (4.20-5.50); SCAN SMEAR FLAG 1; White Blood Count 21.8 X10*3/uL (4.8-10.8)
[2025-04-21 23:57] LABS: D Dimer High Sensitivity 186 NG/ML
[2025-04-22 00:09] LABS: Alanine Aminotransferase 9 U/L (0-31); Albumin Level 3.5 g/dL (3.5-5.0); Alkaline Phosphatase 96 U/L (39-117); Anion Gap 13 (12-20); Aspartate Amino Transferase 17 U/L (5-31); Blood Urea Nitrogen 17 mg/dL (9-16); Calcium 8.5 mg/dL (8.4-10.2); Carbon Dioxide 27 mmol/L (22-29); Chloride 102 mmol/L (96-108); Creatinine Clr Calc Pharmacy 57.4; Estimated Glomerular Filt Rate 50; Potassium 3.2 mmol/L (3.3-5.1); Sodium 139 mmol/L (135-145); Total Protein 6.3 g/dL (6.5-8.0)
[2025-04-22 00:11] LABS: Troponin-I High Sensitivity < 2.7 ng/L (<3.5-17.0)
[2025-04-22 00:56] VITALS: BP 92/43; PULSE 87; RESP 16; TEMP 36.7; O2SAT 99
[2025-04-22 04:57] VITALS: BP 99/54; PULSE 90; RESP 16; TEMP 36.7; O2SAT 98
[2025-04-22 05:25] LABS: OBS Int Ctl Valid YES; OBS1 NEGATIVE (NEGATIVE)
--- NOTE | 2025-04-22 05:25 | PC.NURSE ---
blood cultures and lactic collected during downtime.
[2025-04-22] MEDS: Potassium Chloride/H20 10 MEQ/100 ML PIGGYBACK 100 MEQ IV ×2 (05:51→07:07)
[2025-04-22 06:13] VITALS: BP 91/48; PULSE 98; RESP 14; TEMP 36.7; O2SAT 96
[2025-04-22] MEDS: Lidocaine HCl Viscous 2 % 15 ML SOLUTION MUCOUS MEM (07:44)
[2025-04-22 07:50] LABS: Reflex Lactate? Lactic Acid Added
[2025-04-22 09:27] LABS: ~Lactic Acid-LAB USE ONLY 1.3 mmol/L (0.5-2.0)
[2025-04-22 09:30] VITALS: BP 100/50; PULSE 97; RESP 21; TEMP 36.7; O2SAT 97
--- NOTE | 2025-04-22 10:15 | PC.NURSE ---
Pt restful, no longer vomiting. Plan for d/c with oral abx. BP remains low, Dr Juarez aware, pt reports her baseline. Asymptomatic
[2025-04-22 10:16] VITALS: BP 90/40; PULSE 93; RESP 16; O2SAT 97
[2025-04-22 10:33] VITALS: BP 90/40; PULSE 93; RESP 16; TEMP 36.8; O2SAT 97
== END 2025-04-22 10:35 | disposition home or self-care (01) ==
PROVIDERS: Physician Assistant Medical; Emergency Provider Emergency Medicine
DX: M27.2 Inflammatory conditions of jaws (principal); R06.02 Shortness of breath; R07.81 Pleurodynia; E10.9 Type 1 diabetes mellitus without complications; R10.22 Pelvic and perineal pain left side; Z79.4 Long term (current) use of insulin; Z79.899 Other long term (current) drug therapy; Z87.891 Personal history of nicotine dependence
CPT/HCPCS: 36415; 70487; 71046; 74176; 80053; 82272; 83605; 84484; 85025; 85379; 85652; 86140; 87040; 93005; 96365; 96366; 96367; 96375; 96376; 99285; J0736; J1885; J2004; J2250; J2765; J3480

== ENCOUNTER → 2025-04-21 21:58 | Outpatient (BNV) | payer OTHER, SELFPAY | PROVIDERS: Emergency Provider Emergency Medicine; Visit Provider Internal Medicine Cardiovascular Disease | DX: R06.02 Shortness of breath (principal) | CPT/HCPCS: 93010 ==

== ENCOUNTER → 2025-04-21 21:58 | Outpatient (BNV) | payer OTHER, SELFPAY | PROVIDERS: Emergency Provider Emergency Medicine; Visit Provider Radiology Diagnostic Radiology | DX: R06.02 Shortness of breath (principal) | CPT/HCPCS: 71046 ==

== ENCOUNTER → 2025-04-22 05:59 | Outpatient (BNV) | payer OTHER, SELFPAY | PROVIDERS: Emergency Provider Emergency Medicine; Visit Provider Radiology Diagnostic Radiology | DX: K22.89 Other specified disease of esophagus (principal); N32.89 Other specified disorders of bladder; K05.6 Periodontal disease, unspecified | CPT/HCPCS: 70487; 74176 ==

== ENCOUNTER 2025-06-06 15:05 | Inpatient (IN) | payer OTHER, SELFPAY ==
[2025-06-06] VITALS (8 sets, daily range): BP systolic 83–153; BP diastolic 47–86; PULSE 84–129; RESP 14–18; TEMP 36.6–36.7; O2SAT 96–98; BMI 26.5
--- NOTE | ~2025-06-06 | CT_ITS ---
CLINICAL HISTORY: abd pain, intractable vomiting CT abdomen and pelvis with contrast Comparison: CT/CT/SR - CT ABDOMEN PELVIS WITHOUT IV CONTRAST - 04/22/25 08:[address]/SR - CT ABDOMEN PELVIS W IV CON - 12/02/24 20:51 EDT Findings: The lung bases are clear. There is stable mild concentric wall thickening of the distal esophagus. There is mild hepatic steatosis. There is also focal steatosis along the falciform fissure. Patient is status post cholecystectomy. The pancreas, spleen, and adrenal glands are unremarkable. There are a few small bilateral nonobstructing renal stones. There is no hydronephrosis. The gastrointestinal tract is unremarkable. There is no free fluid or free air. There are no enlarged lymph nodes. The aorta is normal in diameter. Patient is status post hysterectomy. There is unchanged chronic mild wall thickening of the bladder anteriorly. There is no fracture or suspicious lytic or sclerotic lesion. IMPRESSION: 1. Stable mild wall thickening of the distal esophagus suggestive of esophagitis. 2. Small bilateral nonobstructing renal stones. 3. Additional chronic findings as above. This document has been electronically signed by: Ernesto Lozoya MD on 06/07/2025 03:53:33
--- NOTE | 2025-06-06 15:19 | ECG_ITS ---
Test Reason : FALL Blood Pressure : */* mmHG Vent. Rate : 121 BPM Atrial Rate : 121 BPM P-R Int : 124 ms QRS Dur : 80 ms QT Int : 318 ms P-R-T Axes : 61 56 35 degrees QTcB Int : 451 ms Sinus tachycardia Low voltage QRS Nonspecific T wave abnormality Abnormal ECG When compared with ECG of 21-Apr-2025 22:19, No significant change was found Referred By: Generic ED Physician Electronically Signed By: Cory Emanuel
--- NOTE | 2025-06-06 15:28 | PC.NURSE ---
Patient presented to the ED via EM from near syncopal episode. Patient was in shower went she felt dizzy and sat down. EMS BP 90/50 while sitting. Orthostatic BP 50/36 with EMS. Patient tachy at 110s-120s on admission. BP 122/76. Patient placed on monitor. EKG and labs ordered. Patient guarding abdomen stating 9/10 pain due to gastroparesis.
[2025-06-06 15:30] LABS: Glucose, Whole Blood 235 mg/dL (60-115)
--- NOTE | 2025-06-06 15:33 | ED.GENADULT ---
HPI - General Adult General Chief complaint: Weakness Stated complaint: weakness, near syncope,has not eaten in 2 days Time Seen by Provider: 06/06/25 15:27 Source: patient, EMS, RN notes reviewed and old records reviewed Mode of arrival: EMS Limitations: no limitations History of Present Illness ED Provider: Aura HPI narrative: Patient is a 49-year-old female with pmhx T1DM, gastroparesis, idiopathic hypotension, GERD, NSTEMI, anxiety, bipolar disorder presenting to emergency department with complaint of weakness while showering today. She reports that she has had epigastric abdominal pain as well as nausea and vomiting for the past few days consistent with her typical episodes of gastroparesis. States today she was showering as this usually is helpful in decreasing her abdominal pain and she began to feel weak. She lowered herself to the ground, denies fall or head strike. She states that when she attempted to get up by pulling herself using a bar in the shower her legs were weak and gave out and she lowered herself back down to around and had her called 911. Emesis has been non-bloody, non-bilious. Denies fevers or diarrhea. MD complaint: weakness Related Data Home Medications ?Medication ?Instructions ?Recorded ?Confirmed lamotrigine 200 mg tablet 200 mg PO BID 05/11/20 11/04/24 lorazepam 1 mg tablet 1 mg PO TID PRN Anxiety 05/11/20 11/04/24 zolpidem 10 mg tablet 10 mg PO BEDTIME 05/11/20 11/04/24 risperidone 2 mg tablet 2 mg PO BID 09/13/21 11/04/24 insulin aspart U-100 100 unit/mL 0 - 100 unit subcut DAILY 07/23/24 11/04/24 subcutaneous solution (Novolog U-100 Insulin aspart) docusate sodium 100 mg capsule 100 mg PO BID 09/17/24 11/04/24 insulin glargine 100 unit/mL (3 See Rx Instructions .Route 09/17/24 11/04/24 mL) subcutaneous pen (Lantus .COMPLEX PRN when pump not working Solostar U-100 Insulin) subcutaneous insulin pump 09/17/24 09/17/24 blood-glucose sensor (Dexcom G6 11/04/24 Sensor device) blood-glucose transmitter (Dexcom 11/04/24 G6 Transmitter device) glucagon 3 mg/actuation nasal mg intranasal 01/18/25 spray (Baqsimi) omeprazole 20 mg capsule,delayed 20 mg PO BID 01/18/25 release Previous Rx's ?Medication ?Instructions ?Recorded midodrine 5 mg tablet 5 mg PO DAILY #90 tabs 07/09/24 metoprolol tartrate 25 mg tablet 25 mg PO BID #180 tabs 10/18/24 ondansetron 4 mg disintegrating 4 mg PO Q8H PRN nausea and 11/12/24 tablet vomiting #14 tabs cefuroxime axetil 250 mg tablet 250 mg PO BID 7 days #14 tabs 02/11/25 oxycodone 5 mg tablet 5 mg PO Q6H PRN pain #20 tabs 02/11/25 levofloxacin 750 mg tablet 750 mg PO DAILY 5 days #5 tabs 02/16/25 clindamycin HCl 300 mg capsule 300 mg PO TID 5 days #15 caps 04/22/25 (Cleocin HCl) ondansetron 4 mg disintegrating 4 mg PO Q6-8H PRN nausea and 06/05/25 tablet vomiting #20 tabs Allergies Allergy/AdvReac Type Severity Reaction Status Date / Time morphine (MORPHINE) Allergy Intermediate RASH, Verified 06/06/25 15:17 hives, hives mushroom Allergy Intermediate HIVES/RASH Verified 06/06/25 15:17 Sulfa (Sulfonamide Allergy Mild Rash Verified 06/06/25 15:17 Antibiotics) Review of Systems Review of Systems: As per hpi Yes all other systems are reviewed and are negative Constitutional: Constitutional: Reports as per HPI PMFSH Past Medical History Medical History (Updated 06/07/25 @ 05:38 by Karina Hernandez DO) Intractable nausea and vomiting NSTEMI (non-ST elevated myocardial infarction) (~2010) Acute UTI Chronic hypertension Diabetes mellitus with gastroparesis Diabetes mellitus type 1 Herpes zoster Status post fall Recurrent UTI Anxiety Bipolar 1 disorder Pancreatitis Surgical History History of cholecystectomy History of tonsillectomy History of ERCP H/O pyloroplasty History of appendectomy H/O: hysterectomy Social History Social History Household Members: Spouse Housing: Other Housing Other:: [employer] Do you presently have visiting nurse or other home services: No Alcohol intake: never Comment: pt refused bed alarm Patient Tobacco Use Status: Former Tobacco user Tobacco use type: Cigarette Smoked in Last 30 Days: No e-Cigarette/Vaping Use: Never Used Second Hand Smoke Exposure: No Use of substances other than those prescribed or required for medical reasons: No Substance Use Type: Marijuana Advance Directives: Yes Advance Directives on File: Yes Advance Directives Date on File: 12/03/22 service: No Current occupational status: disabled Cognitive needs: No Hearing needs: No Vision needs: No Physical Exam ED Vital Signs: Vital Signs - 24 hr 06/06/25 15:14 06/06/25 18:02 06/06/25 18:08 Temperature 97.9 F 98.1 F Pulse Rate 120 H 119 H Pulse Rate [Apical] 110 H Respiratory Rate 16 16 Blood Pressure 122/76 137/84 Pulse Oximetry 96 96 Oxygen Delivery Method Room Air Room Air 06/06/25 18:19 06/06/25 18:20 06/06/25 18:21 Temperature Pulse Rate 116 H 123 H 128 H Pulse Rate [Apical] Respiratory Rate Blood Pressure 153/86 H 118/66 83/47 L Pulse Oximetry Oxygen Delivery Method 06/06/25 19:21 06/06/25 22:37 06/07/25 01:16 Temperature 97.8 F Pulse Rate 129 H 84 96 Pulse Rate [Apical] Respiratory Rate 18 14 Blood Pressure 122/68 139/80 157/95 H Pulse Oximetry 98 98 97 Oxygen Delivery Method Room Air Room Air Room Air BMI result Body Mass Index 26.5 Vital signs have been reviewed and appear to be correct. Blood pressure normal. Heart rate tachycardic. Respiratory rate normal. Temperature normal. Oxygen saturation normal. Const General: cooperative and no acute distress Orientation/consciousness: oriented to person, oriented to place, oriented to time and patient oriented x3 Limitations: no limitations HENMT Head: Yes normocephalic and Yes atraumatic Ears: external ears normal General nose exam: Normal external nose present Face and sinus: Yes face symmetric Mouth: oropharynx normal and moist mucous membranes Throat: Yes uvula midline Eyes Pupils: Equal, round and reactive pupils present Neck Neck: Yes normal visual inspection and Yes supple Resp Effort & Inspection: normal respiratory effort and able to speak in complete sentences Auscultation: clear to auscultation bilaterally Cardio Rate: regular rate Rhythm: regular rhythm Heart sounds: S1 normal heart sound present and S2 normal heart sound present GI Palpation (GI): Soft to palpation and nontender Auscultation: normoactive bowel sounds General: Yes no CVA tenderness Back/Spine/Pelvis Back: no CVA tenderness Skin General skin exam: elasticity normal and turgor normal Neuro General: oriented to person, oriented to place, oriented to time, patient oriented x3, moves all extremities, no focal motor deficits and CN's II-XI intact bilaterally Cranial nerves: Yes Equal, round and reactive pupils present Cognition (Neuro): normal cognition Extrem General: Yes full ROM, Yes no pedal edema and Yes no calf tenderness Psych Mental Status: mental status grossly normal Affect: normal affect Thought process: Normal thought process present Course Course Course Narrative: 1829-This patient was signed out to me as she was still orthostatic and required additional 1 L LR and re-assessment with plans for dispo home. 1999-Patient still tachycardic. Will give additional 1 L LR and 15mg IV toradol for pain. Reevaluation(s) Reevaluation #1: 2099-Sign out to Dr Hernandez pending re-eval. Time: 05:09 Reevaluation #2: Patient continues to have nausea and vomiting. Has been medicated with multiple antiemetics, analgesics without any significant change in her condition. She will require admission at this point. CT abd/pel shows no signifcant acute finding that would be contributing to her symptoms today. Medications Administered Discontinued Medications Generic Name Dose Route Start Last Admin Trade Name Nanci PRN Reason Stop Dose Admin Diazepam 5 mg 06/06/25 22:54 06/06/25 23:10 Diazepam 10 Mg/2 Ml Cartridge IVPUSH 06/06/25 22:55 5 mg STAT STA Administration Haloperidol Lactate 2.5 mg 06/06/25 15:38 06/06/25 15:54 Haloperidol Lactate 5 Mg/Ml Vial IVPUSH 06/06/25 15:39 2.5 mg ONCE ONE Administration Hydromorphone HCl 0.5 mg 06/06/25 17:37 06/06/25 17:43 Hydromorphone Hcl 0.5 Mg/0.5 Ml Syringe IVPUSH 06/06/25 17:38 0.5 mg ONCE ONE Administration Protocol Lactated Ringer's 1,000 mls @ 999 mls/hr 06/06/25 15:45 06/06/25 17:37 Lr IV 06/06/25 16:45 Infused .Q1H1M RAISA Infusion Lactated Ringer's 1,000 mls @ 999 mls/hr 06/06/25 18:30 06/06/25 19:50 Lr IV 06/06/25 19:30 Infused .Q1H1M RAISA Infusion Lactated Ringer's 1,000 mls @ 999 mls/hr 06/06/25 19:53 06/07/25 01:55 Lr IV 06/06/25 20:53 Infused .Q1H1M STA Infusion Lactated Ringer's 1,000 mls @ 999 mls/hr 06/07/25 00:46 06/07/25 00:54 Lr IV 06/07/25 01:46 999 mls/hr .Q1H1M ONE Administration Iohexol 85 ml 06/07/25 01:38 06/07/25 01:43 Iohexol 350 Mg/Ml 100 Ml Infus..Btl IV 06/07/25 01:39 85 ml ONCE ONE Administration Ketorolac Tromethamine 15 mg 06/06/25 20:27 06/06/25 20:44 Ketorolac Tromethamine 15 Mg/Ml Vial IVPUSH 06/06/25 20:28 15 mg ONCE ONE Administration Metoclopramide HCl 10 mg 06/06/25 22:52 06/06/25 23:10 Metoclopramide Hcl 10 Mg/2 Ml Vial IVPUSH 06/06/25 22:53 10 mg ONCE ONE Administration Metoprolol Tartrate 5 mg 06/07/25 00:46 06/07/25 00:54 Metoprolol Tartrate 5 Mg/5 Ml Vial IVPUSH 06/07/25 00:47 5 mg ONCE ONE Administration Protocol Prochlorperazine Edisylate 10 mg 06/07/25 00:46 06/07/25 00:54 Prochlorperazine Edisylate 10 Mg/2 Ml Vial IVPUSH 06/07/25 00:47 10 mg ONCE ONE Administration Medical Decision Making Medical Decision Making MDM Narrative: Patient is a 49-year-old female with pmhx T1DM, gastroparesis, idiopathic hypotension, GERD, NSTEMI, anxiety, bipolar disorder presenting to emergency department with complaint of weakness while showering today. On exam patient is awake, A+Ox3, VS WNL, afebrile, normal neurological exam without focal deficits, physical exam findings as above. Given reported symptoms and physical exam findings, initial differential includes but is not limited to dehydration, orthostatic hypotension, electrolyte abnormality, DKA, gastroparesis, viral illness. Labs notable for no leukocytosis, chronic stable anemia, no significant electrolyte abnormalities, normal beta hydroxybutyrate, mild alkalosis on VBG. Do not suspect DKA. Viral panel pending. Orthostatic intolerance noted on orthostatic VS, additional LR ordered. Patient signed out to MIHIR Mccain, pending re-evaluation after IV fluids, viral panel. Differential Diagnosis Differential Diagnoses: The differential diagnosis associated with the presentation includes as per [facility] Lab Data [facility] Lab Attestation statement: I reviewed the patient's lab results. as per [facility] 06/06/25 17:34 06/06/25 17:34 Labs: Lab Results 06/06/25 06/06/25 06/06/25 Range/Units 15:24 17:34 17:42 WBC 11.9 H (4.8-10.8) X10*3/uL RBC 3.64 L D (4.20-5.50) X10*6/uL Hgb 9.3 L D (12.0-16.0) g/dl Hct 28.8 L D (37.0-47.0) % MCV 79.1 L (80.0-98.0) fL MCH 25.5 L (27.0-33.0) pg MCHC 32.3 (31.0-35.0) g/dl RDW 16.7 H (11.0-16.0) % Plt Count 472 H (160-400) X10*3/uL MPV 8.5 L (9.4-12.3) fL Immature Gran % (Auto) 0.3 (0.0-0.4) % Neut % (Auto) 81.7 H (45-73) % Lymph % (Auto) 13.1 L (20-40) % [place] % (Auto) 4.6 (2-11) % Eos % (Auto) 0.0 (0-4) % Baso % (Auto) 0.3 (0-2) % Lymph # (Auto) 1.6 (1.2-4.9) X10*3/uL [place] # (Auto) 0.5 (0.1-1.2) X10*3/uL Eos # (Auto) 0.0 (0.0-0.4) X10*3/uL Baso # (Auto) 0.0 (0.0-0.2) X10*3/uL Abs Immat Gran (auto) 0.03 (0.00-0.03) X10*3/uL Absolute Neuts (auto) 9.7 H (2.0-8.3) x10*3/uL Absolute Nucleated RBC 0.000 (0.0-0.012) X10*3/uL Nucleated RBC % (auto) 0.0 (0.0-0.2) /100WBC VBG pH 7.51 H (7.32-7.43) VBG pCO2 29 mmHg VBG pO2 163 mmHg VBG HCO3 23 (22-26) mmol/L VBG O2 Saturation 99.0 % VBG Base Excess 1.3 mmol/L Sodium 138 (135-145) mmol/L Potassium 3.8 (3.3-5.1) mmol/L Chloride 102 (96-108) mmol/L Carbon Dioxide 23 (22-29) mmol/L Anion Gap 17 (12-20) BUN 20 H (9-16) mg/dL Creatinine 1.26 (0.5-1.4) mg/dL Estim Creat Clear Calc 55.1 Estimated GFR 45 POC Glucose 235 H (60-115) mg/dL Random Glucose 165 H (60-115) mg/dL Calcium 9.4 D (8.4-10.2) mg/dL Magnesium 2.0 (1.6-2.6) mg/dL Total Bilirubin 0.2 (0.0-1.0) mg/dL AST 15 (5-31) U/L ALT 7 (0-31) U/L Alkaline Phosphatase 103 (39-117) U/L Total Protein 7.4 (6.5-8.0) g/dL Albumin 4.3 (3.5-5.0) g/dL Lipase 6 L (8-78) U/L Beta-Hydroxybutyrate 0.09 (0.02-0.27) mmol/L Urine Color Urine Appearance Urine pH (5.0-9.0) Ur Specific Leon (1.005-1.025) Urine Protein (Neg-Trace) mg/dL Urine Glucose (UA) (Negative) mg/dL Urine Ketones (Negative) mg/dL Urine Blood (Negative) Urine Nitrite (Negative) Ur Leukocyte Esterase (Negative) Influenza Type A (PCR) (Negative) Influenza Type B (PCR) (Negative) RSV RNA Qual (PCR) (Negative) SARS-CoV-2 RNA (RT-PCR) (Negative) 06/06/25 06/07/25 06/07/25 Range/Units 22:57 00:54 03:33 WBC (4.8-10.8) X10*3/uL RBC (4.20-5.50) X10*6/uL Hgb (12.0-16.0) g/dl Hct (37.0-47.0) % MCV (80.0-98.0) fL MCH (27.0-33.0) pg MCHC (31.0-35.0) g/dl RDW (11.0-16.0) % Plt Count (160-400) X10*3/uL MPV (9.4-12.3) fL Immature Gran % (Auto) (0.0-0.4) % Neut % (Auto) (45-73) % Lymph % (Auto) (20-40) % [place] % (Auto) (2-11) % Eos % (Auto) (0-4) % Baso % (Auto) (0-2) % Lymph # (Auto) (1.2-4.9) X10*3/uL [place] # (Auto) (0.1-1.2) X10*3/uL Eos # (Auto) (0.0-0.4) X10*3/uL Baso # (Auto) (0.0-0.2) X10*3/uL Abs Immat Gran (auto) (0.00-0.03) X10*3/uL Absolute Neuts (auto) (2.0-8.3) x10*3/uL Absolute Nucleated RBC (0.0-0.012) X10*3/uL Nucleated RBC % (auto) (0.0-0.2) /100WBC VBG pH (7.32-7.43) VBG pCO2 mmHg VBG pO2 mmHg VBG HCO3 (22-26) mmol/L VBG O2 Saturation % VBG Base Excess mmol/L Sodium (135-145) mmol/L Potassium (3.3-5.1) mmol/L Chloride (96-108) mmol/L Carbon Dioxide (22-29) mmol/L Anion Gap (12-20) BUN (9-16) mg/dL Creatinine (0.5-1.4) mg/dL Estim Creat Clear Calc Estimated GFR POC Glucose 151 H 126 H (60-115) mg/dL Random Glucose (60-115) mg/dL Calcium (8.4-10.2) mg/dL Magnesium (1.6-2.6) mg/dL Total Bilirubin (0.0-1.0) mg/dL AST (5-31) U/L ALT (0-31) U/L Alkaline Phosphatase (39-117) U/L Total Protein (6.5-8.0) g/dL Albumin (3.5-5.0) g/dL Lipase (8-78) U/L Beta-Hydroxybutyrate (0.02-0.27) mmol/L Urine Color Urine Appearance Urine pH (5.0-9.0) Ur Specific Leon (1.005-1.025) Urine Protein (Neg-Trace) mg/dL Urine Glucose (UA) (Negative) mg/dL Urine Ketones (Negative) mg/dL Urine Blood (Negative) Urine Nitrite (Negative) Ur Leukocyte Esterase (Negative) Influenza Type A (PCR) NEGATIVE (Negative) Influenza Type B (PCR) NEGATIVE (Negative) RSV RNA Qual (PCR) NEGATIVE (Negative) SARS-CoV-2 RNA (RT-PCR) NEGATIVE (Negative) 06/07/25 Range/Units 03:40 WBC (4.8-10.8) X10*3/uL RBC (4.20-5.50) X10*6/uL Hgb (12.0-16.0) g/dl Hct (37.0-47.0) % MCV (80.0-98.0) fL MCH (27.0-33.0) pg MCHC (31.0-35.0) g/dl RDW (11.0-16.0) % Plt Count (160-400) X10*3/uL MPV (9.4-12.3) fL Immature Gran % (Auto) (0.0-0.4) % Neut % (Auto) (45-73) % Lymph % (Auto) (20-40) % [place] % (Auto) (2-11) % Eos % (Auto) (0-4) % Baso % (Auto) (0-2) % Lymph # (Auto) (1.2-4.9) X10*3/uL [place] # (Auto) (0.1-1.2) X10*3/uL Eos # (Auto) (0.0-0.4) X10*3/uL Baso # (Auto) (0.0-0.2) X10*3/uL Abs Immat Gran (auto) (0.00-0.03) X10*3/uL Absolute Neuts (auto) (2.0-8.3) x10*3/uL Absolute Nucleated RBC (0.0-0.012) X10*3/uL Nucleated RBC % (auto) (0.0-0.2) /100WBC VBG pH (7.32-7.43) VBG pCO2 mmHg VBG pO2 mmHg VBG HCO3 (22-26) mmol/L VBG O2 Saturation % VBG Base Excess mmol/L Sodium (135-145) mmol/L Potassium (3.3-5.1) mmol/L Chloride (96-108) mmol/L Carbon Dioxide (22-29) mmol/L Anion Gap (12-20) BUN (9-16) mg/dL Creatinine (0.5-1.4) mg/dL Estim Creat Clear Calc Estimated GFR POC Glucose (60-115) mg/dL Random Glucose (60-115) mg/dL Calcium (8.4-10.2) mg/dL Magnesium (1.6-2.6) mg/dL Total Bilirubin (0.0-1.0) mg/dL AST (5-31) U/L ALT (0-31) U/L Alkaline Phosphatase (39-117) U/L Total Protein (6.5-8.0) g/dL Albumin (3.5-5.0) g/dL Lipase (8-78) U/L Beta-Hydroxybutyrate (0.02-0.27) mmol/L Urine Color Yellow Urine Appearance Clear Urine pH 7.5 (5.0-9.0) Ur Specific Leon 1.025 (1.005-1.025) Urine Protein Negative (Neg-Trace) mg/dL Urine Glucose (UA) 500 H (Negative) mg/dL Urine Ketones Negative (Negative) mg/dL Urine Blood Small (1+) H (Negative) Urine Nitrite Negative (Negative) Ur Leukocyte Esterase Negative (Negative) Influenza Type A (PCR) (Negative) Influenza Type B (PCR) (Negative) RSV RNA Qual (PCR) (Negative) SARS-CoV-2 RNA (RT-PCR) (Negative) External Record Review External record reviewed: Inpatient record, Office record and Outpatient record Discharge Plan Discharge Clinical Impression: Orthostatic hypotension, Cyclical vomiting, intractable Patient Disposition: Admitted As Inpatient Additional Instructions: You were evaluated in the emergency department today for weakness. This is likely due to low blood pressure which was likely caused by a recent nausea and vomiting. Your symptoms improved with IV fluids in the emergency department today. We recommend they follow up with your primary care provider this week. Return to the emergency department if you continue to have persistent vomiting, worsening abdominal pain, fever 100.4? F or greater, blood in your vomit or stool or any other new or concerning symptoms. Print Language: Pakistani
[2025-06-06] MEDS: Lactated Ringers 1,000 ML 999 ML IV ×3 (15:54→20:17)
[2025-06-06 17:42] LABS: MANUAL DIFF FLAG NO
[2025-06-06 17:44] LABS: Hematocrit 28.8 % (37.0-47.0); Hemoglobin 9.3 g/dl (12.0-16.0); Imm Gran Abs Auto 0.03 X10*3/uL (0.00-0.03); Imm Gran Pct Auto 0.3 % (0.0-0.4); Lymphocytes Absolute Auto 1.6 X10*3/uL (1.2-4.9); Mean Corpuscular HGB Conc 32.3 g/dl (31.0-35.0); Mean Corpuscular Hemoglobin 25.5 pg (27.0-33.0); Mean Corpuscular Volume 79.1 fL (80.0-98.0); NRBC Abs Auto 0.000 X10*3/uL (0.0-0.012); NRBC Pct Auto 0.0 /100WBC (0.0-0.2); Platelet Count 472 X10*3/uL (160-400); Red Blood Count 3.64 X10*6/uL (4.20-5.50); White Blood Count 11.9 X10*3/uL (4.8-10.8)
[2025-06-06 17:45] LABS: Venous Blood Gas Refer to POC result
[2025-06-06 17:46] LABS: VBG HCO3 23 mmol/L (22-26); VBG O2 % Saturation 99.0 %
[2025-06-06 18:00] LABS: Alanine Aminotransferase 7 U/L (0-31); Albumin Level 4.3 g/dL (3.5-5.0); Alkaline Phosphatase 103 U/L (39-117); Anion Gap 17 (12-20); Aspartate Amino Transferase 15 U/L (5-31); Blood Urea Nitrogen 20 mg/dL (9-16); Calcium 9.4 mg/dL (8.4-10.2); Carbon Dioxide 23 mmol/L (22-29); Chloride 102 mmol/L (96-108); Creatinine Clr Calc Pharmacy 55.1; Estimated Glomerular Filt Rate 45; Lipase 6 U/L (8-78); Magnesium 2.0 mg/dL (1.6-2.6); Potassium 3.8 mmol/L (3.3-5.1); Sodium 138 mmol/L (135-145); Total Protein 7.4 g/dL (6.5-8.0)
--- NOTE | 2025-06-06 21:23 | PC.NURSE ---
RN assumed care of this pt at 1900; pt was axox4; she requested to use the bathroom- RN walked pt to the bathroom and she felt very dizzy. RN informed pt next time a bed giles or commode will need to be used. Yellow bracelet was placed on wrist & yellow socks were placed on pts feet. Pt had to urinate about an hr later- bed giles was placed but the bed did get wet. RN changed pt and bed sheets, placed a shannan under pt, provided pt with warm blankets. Placed bed at lowest setting, call ulloa within reach. pt is able to make needs known. was informed that pt was having 10/10 pain- toradol order was placed. pt medicated per sep.
--- NOTE | 2025-06-06 22:45 | PC.NURSE ---
called to see how pt was doing- RN informed him of the plan of care. pt also suggested we do POCs on pt as she has an insulin pump and has been crashing the past few nights. aware. waiting for poc orders.
[2025-06-06 23:07] LABS: Glucose, Whole Blood 151 mg/dL (60-115)
[2025-06-06] MEDS: diazePAM 10 MG/2 ML CARTRIDGE 5 MG IVPUSH (23:10)
--- NOTE | 2025-06-06 23:37 | PC.NURSE ---
fluids still infusing; Rn had to flush chest port as the fluids were not infusing at some point.
[2025-06-07] VITALS (15 sets, daily range): BP systolic 90–157; BP diastolic 51–95; PULSE 84–140; RESP 12–20; TEMP 36.1–36.9; O2SAT 96–100; BMI 25.7
--- NOTE | 2025-06-07 | ECG_ITS ---
Test Reason : tachycardia Blood Pressure : */* mmHG Vent. Rate : 113 BPM Atrial Rate : 113 BPM P-R Int : 144 ms QRS Dur : 80 ms QT Int : 342 ms P-R-T Axes : 57 41 34 degrees QTcB Int : 469 ms Sinus tachycardia T wave abnormality, consider anterior ischemia Abnormal ECG When compared with ECG of 06-Jun-2025 15:47, No significant change was found Referred By: Keesha Bhatt Electronically Signed By: Cory Emanuel
--- NOTE | 2025-06-07 | ECG_ITS ---
Test Reason : qtc check Blood Pressure : */* mmHG Vent. Rate : 121 BPM Atrial Rate : 121 BPM P-R Int : 120 ms QRS Dur : 82 ms QT Int : 322 ms P-R-T Axes : 61 49 19 degrees QTcB Int : 457 ms Sinus tachycardia T wave abnormality, consider anterior ischemia Abnormal ECG When compared with ECG of 07-Jun-2025 06:41, No significant change was found Referred By: Marquis Mello Electronically Signed By: Cory Emanuel
[2025-06-07] MEDS: Lactated Ringers 1,000 ML 999 ML IV (00:54)
--- NOTE | 2025-06-07 01:42 | HO.NURTONUR ---
*Late Entry*- pts personal insulin pump has been turned off. POC orders are in place.
[2025-06-07] MEDS: iohexoL 350 MG/ML 100 ML INFUS..BTL 85 ML IV (01:43)
[2025-06-07 01:46] LABS: Resp Syncy Virus RNA Qual PCR NEGATIVE (Negative); SARS COV2 PCR INHOUSE NEGATIVE (Negative)
--- NOTE | 2025-06-07 02:07 | PC.NURSE ---
pt was taken to CT- delay in infusion of LR.
[2025-06-07 03:49] LABS: Glucose, Whole Blood 126 mg/dL (60-115)
[2025-06-07 03:57] LABS: Appearance Urine Clear; Glucose Urine UA 500 mg/dL (Negative); PH 7.5 (5.0-9.0); Specific Gravity - Urine 1.025 (1.005-1.025); UMIC TRIGGER UACC YES
--- NOTE | 2025-06-07 05:02 | HO.NURTONUR ---
Lr infusion complete; aware. informed RN she wants pt to try PO challenge. RN tried to give pt some crackers and water pt refused. Pt stated she cannot and she is nauseous and in pain. made aware.
--- NOTE | 2025-06-07 05:22 | PM.IMHP ---
History of Present Illness Date of Service: 06/07/25 Attending physician on admission: Alban Mccloud Chief Complaint: intractable nausea A 49-year-old adopted female with past medical history DM Type I with insulin pump, gastroparesis secondary to diabetes, DKA, pyloric stenosis with history of G-Poem 2019 and will be having a revision in 2 weeks on June 18 at [facility], esophagitis, gastritis, chronic marijuana use, hypertension, herpes Zoster, UTI, non STEMI age 34, anxiety, bipolar 1 disorder, pancreatitis presents to the emergency department with 2 weeks of intermittent intractable nausea and vomiting with no unexplained weight loss but inability to tolerate clears and/or solid food consistently for last 72 hours. Patient was evaluated by EMS and was found to be orthostatic and initially patient did not want to be taken to the ED but EMS advocated for patient to be seen. Patient states she does take midodrine in the AM as her blood pressure normally runs 80's/50. Patient states she received Dilaudid and Reglan which seemed to work best in calming her symptoms since arrival to the ED. Patient states she has an upcoming procedure for revision of pylorus/G-Poem on June 18 with her surgical provider at [facility]. Patient does normally follow with GI here at [facility]. Patient actually has an appointment later today with Dr. Fletcher. Patient denies any current chest pain, shortness of breath at rest or with exertion, hematoemesis, blood in stool, constipation or diarrhea. Patient denies any fever, chills or productive cough. Patient denies any current issues with alcohol, tobacco use or illicit drug use. Patient was a previous smoker who quit approximately 10 years ago. Patient does use marijuana intermittently but not daily. Patient's last use of marijuana was this past Saturday. Patient does not use edibles. Patient denies any suicidal or homicidal tendencies noting hx of Bipolar depression. Workup in the ED included CT of the abdomen and pelvis which was negative for any acute findings. There was no free air or fluid present. Evidence of esophagitis and mild hepatic steatosis were noted. Patient also had evidence of small nonobstructing renal stones. UA negative for actual UTI. Patient does have a leukocytosis of 11.9, H&H of 9.3 and 20 8.8 and platelets of 472K. Blood glucose running 100-126. Lipase 6. No evidence of acidosis. LFTs and T bilirubin are all normal. Beta hydroxybutyrate 0.09. COVID, flu and RSV testing were all negative. Drug screen positive for marijuana only. Emergency room provider requesting admission for persistent nausea and vomiting and for the fact that patient can not tolerate clears. Patient currently deferring the need for NG tube. Review of Systems Review of Systems: Patient denies any chest pain, shortness breath at rest or with exertion, is reporting though nausea and vomiting that is persistent and intermittent with intermittent abdominal pain especially with examination of the abdomen. Patient denies any dysuria, frequency or difficulty urinating. Patient denies any diarrhea or constipation issues. Patient is undergoing a revision of her pyloric repair in 2 weeks on June 18. Patient last use marijuana this past Saturday. [facility] Medical History Intractable nausea and vomiting NSTEMI (non-ST elevated myocardial infarction) (~2010) Acute UTI Chronic hypertension Diabetes mellitus with gastroparesis Diabetes mellitus type 1 Herpes zoster Status post fall Recurrent UTI Anxiety Bipolar 1 disorder Pancreatitis Cognitive capacity: Alert and orientated x3 Functional capacity: independent ambulation Patient : No Surgical History History of cholecystectomy History of tonsillectomy History of ERCP H/O pyloroplasty History of appendectomy H/O: hysterectomy Social History Household Members: Spouse Housing: Other Housing Other:: trailor Do you presently have visiting nurse or other home services: No Alcohol intake: never Comment: pt refused bed alarm Patient Tobacco Use Status: Former Tobacco user Tobacco use type: Cigarette e-Cigarette/Vaping Use: Never Used Second Hand Smoke Exposure: No Substance Use Type: Marijuana Advance Directives Date on File: 12/03/22 service: No Current occupational status: disabled Cognitive needs: No Hearing needs: No Vision needs: No Ebola Risk: Travel/Contact With Anyone From Affected Area/s: No Has Patient Experienced Ebola Symptoms: No Meds Allergies Allergy/AdvReac Type Severity Reaction Status Date / Time morphine (MORPHINE) Allergy Intermediate RASH, Verified 06/06/25 15:17 hives, hives mushroom Allergy Intermediate HIVES/RASH Verified 06/06/25 15:17 Sulfa (Sulfonamide Allergy Mild Rash Verified 06/06/25 15:17 Antibiotics) Active Medications: Current Medications Acetaminophen (Acetaminophen 325 Mg Tablet) 650 mg PO Q6H PRN PRN Reason: Pain, Mild 1-3,fever,headache Albuterol/Ipratropium (Albuterol/Iprat 2.5/0.5mg 3 Ml Ampul.Neb) 3 ml INHALE Q4H PRN PRN Reason: Shortness of Breath/Wheezing Calcium Carbonate (Calcium Carbonate 750 Mg Tab.Chew) 750 mg PO Q4H PRN PRN Reason: Heartburn Capsaicin (Capsaicin 0.025% Cream 60 Gm Tube) 1 appl TOPICAL TID PRN; Protocol PRN Reason: Nausea Enoxaparin Sodium (Enoxaparin Sodium 40 Mg/0.4 Ml Syringe) 40 mg SUBCUT Q24H RAISA Magnesium Hydroxide (Milk Of Magnesia 30 Ml Oral.Susp) 30 ml PO DAILY PRN PRN Reason: Constipation Melatonin (Melatonin 3 Mg Tablet) 6 mg PO BEDTIME PRN PRN Reason: Insomnia Ondansetron HCl (Ondansetron Hcl 4 Mg/2 Ml Vial) 4 mg IVPUSH Q8H PRN PRN Reason: Nausea and Vomiting Polyethylene Glycol (Polyethylene Glycol 3350 17 Gm Powd.Pack) 17 gm PO DAILY PRN PRN Reason: Constipation Sodium Chloride (0.9 % Sodium Chloride Flush 3 Ml Syringe) 3 ml IVFLUSH QSHIFT RAISA Home Medications ?Medication ?Instructions ?Recorded ?Confirmed ?Last Taken ?Type lamotrigine 200 mg tablet 200 mg PO BID 05/11/20 11/04/24 11/04/24 History lorazepam 1 mg tablet 1 mg PO TID PRN Anxiety 05/11/20 11/04/24 07/23/24 History zolpidem 10 mg tablet 10 mg PO BEDTIME 05/11/20 11/04/24 11/03/24 History risperidone 2 mg tablet 2 mg PO BID 09/13/21 11/04/24 11/04/24 History insulin aspart U-100 100 unit/mL 0 - 100 unit subcut DAILY 07/23/24 11/04/24 11/04/24 History subcutaneous solution (Novolog U-100 Insulin aspart) docusate sodium 100 mg capsule 100 mg PO BID 09/17/24 11/04/24 11/04/24 History insulin glargine 100 unit/mL (3 See Rx Instructions .Route 09/17/24 11/04/24 Unknown History mL) subcutaneous pen (Lantus .COMPLEX PRN when pump not working Solostar U-100 Insulin) subcutaneous insulin pump 09/17/24 09/17/24 Unknown History blood-glucose sensor (Dexcom G6 11/04/24 Unknown History Sensor device) blood-glucose transmitter (Dexcom 11/04/24 Unknown History G6 Transmitter device) glucagon 3 mg/actuation nasal mg intranasal 01/18/25 Unknown History spray (Baqsimi) omeprazole 20 mg capsule,delayed 20 mg PO BID 01/18/25 Unknown History release Physical Exam Vital Signs and Narrative: Vital Signs: Last Vital Signs Temp 97.8 F 06/06/25 22:37 Pulse 104 H 06/07/25 04:38 Resp 12 06/07/25 05:16 BP 135/63 06/07/25 04:38 Pulse Ox 96 06/07/25 04:38 O2 Del Method Room Air 06/07/25 04:38 BMI result Body Mass Index 26.5 Alert and orientated X3, able to give good history. Neuro: CN II-X11 intact, no deficits, visual acuity intact EYES: PERRLA, EOM intact, sclerae nonicteric, conjunctiva pink ENT: hearing intact, no issues with swallowing, uvula midline, lips dry, nares patent no epistaxis Cardiac: S1 S2 RRR, no murmur, no JVD, no edema in Lower ext Pulmonary: lungs diminished bilaterally Abdominal: BS active in all 4 quadrants, no guarding, mild tenderness on exam, no rebounding MSK: strength 5/5 upper and lower extremities : no CVA tenderness no bladder distension Extremities: no edema in lower extremities, PT and DP pulses palpable +2 Psych: mood stable, judgement and insight good Skin: No new rashes or lesions Results Labs 06/06/25 17:34 06/06/25 17:34 Labs: Laboratory Results - last 24 hr 06/06/25 06/06/25 06/06/25 15:24 17:34 17:42 MCV 79.1 L MCH 25.5 L MCHC 32.3 RDW 16.7 H Plt Count 472 H MPV 8.5 L Immature Gran % (Auto) 0.3 Neut % (Auto) 81.7 H Lymph % (Auto) 13.1 L [place] % (Auto) 4.6 Eos % (Auto) 0.0 Baso % (Auto) 0.3 Lymph # (Auto) 1.6 [place] # (Auto) 0.5 Eos # (Auto) 0.0 Baso # (Auto) 0.0 Abs Immat Gran (auto) 0.03 Absolute Neuts (auto) 9.7 H Absolute Nucleated RBC 0.000 Nucleated RBC % (auto) 0.0 VBG pH 7.51 H VBG pCO2 29 VBG pO2 163 VBG HCO3 23 VBG O2 Saturation 99.0 VBG Base Excess 1.3 Anion Gap 17 Estim Creat Clear Calc 55.1 Estimated GFR 45 POC Glucose 235 H Random Glucose 165 H Calcium 9.4 D Magnesium 2.0 Total Bilirubin 0.2 AST 15 ALT 7 Alkaline Phosphatase 103 Total Protein 7.4 Albumin 4.3 Lipase 6 L Beta-Hydroxybutyrate 0.09 Urine Color Urine Appearance Urine pH Ur Specific [place] Urine Protein Urine Glucose (UA) Urine Ketones Urine Blood Urine Nitrite Ur Leukocyte Esterase Urine RBC Urine WBC Ur Squamous Epith Cells Urine Bacteria Hyaline Casts Influenza Type A (PCR) Influenza Type B (PCR) RSV RNA Qual (PCR) SARS-CoV-2 RNA (RT-PCR) 06/06/25 06/07/25 06/07/25 22:57 00:54 03:33 MCV MCH MCHC RDW Plt Count MPV Immature Gran % (Auto) Neut % (Auto) Lymph % (Auto) [place] % (Auto) Eos % (Auto) Baso % (Auto) Lymph # (Auto) [place] # (Auto) Eos # (Auto) Baso # (Auto) Abs Immat Gran (auto) Absolute Neuts (auto) Absolute Nucleated RBC Nucleated RBC % (auto) VBG pH VBG pCO2 VBG pO2 VBG HCO3 VBG O2 Saturation VBG Base Excess Anion Gap Estim Creat Clear Calc Estimated GFR POC Glucose 151 H 126 H Random Glucose Calcium Magnesium Total Bilirubin AST ALT Alkaline Phosphatase Total Protein Albumin Lipase Beta-Hydroxybutyrate Urine Color Urine Appearance Urine pH Ur Specific [place] Urine Protein Urine Glucose (UA) Urine Ketones Urine Blood Urine Nitrite Ur Leukocyte Esterase Urine RBC Urine WBC Ur Squamous Epith Cells Urine Bacteria Hyaline Casts Influenza Type A (PCR) NEGATIVE Influenza Type B (PCR) NEGATIVE RSV RNA Qual (PCR) NEGATIVE SARS-CoV-2 RNA (RT-PCR) NEGATIVE 06/07/25 03:40 MCV MCH MCHC RDW Plt Count MPV Immature Gran % (Auto) Neut % (Auto) Lymph % (Auto) [place] % (Auto) Eos % (Auto) Baso % (Auto) Lymph # (Auto) [place] # (Auto) Eos # (Auto) Baso # (Auto) Abs Immat Gran (auto) Absolute Neuts (auto) Absolute Nucleated RBC Nucleated RBC % (auto) VBG pH VBG pCO2 VBG pO2 VBG HCO3 VBG O2 Saturation VBG Base Excess Anion Gap Estim Creat Clear Calc Estimated GFR POC Glucose Random Glucose Calcium Magnesium Total Bilirubin AST ALT Alkaline Phosphatase Total Protein Albumin Lipase Beta-Hydroxybutyrate Urine Color Yellow Urine Appearance Clear Urine pH 7.5 Ur Specific [place] 1.025 Urine Protein Negative Urine Glucose (UA) 500 H Urine Ketones Negative Urine Blood Small (1+) H Urine Nitrite Negative Ur Leukocyte Esterase Negative Urine RBC 3-5 H Urine WBC 0-5 Ur Squamous Epith Cells 0-2 Urine Bacteria None Seen Hyaline Casts 0-2 Influenza Type A (PCR) Influenza Type B (PCR) RSV RNA Qual (PCR) SARS-CoV-2 RNA (RT-PCR) ECG Prior ECG tracings: not available for review Imaging Radiologist's Impressions: CT ABD PELVIS IMPRESSION: 1. Stable mild wall thickening of the distal esophagus suggestive of esophagitis. 2. Small bilateral nonobstructing renal stones. 3. Additional chronic findings as above. Assessment and Plan (1) Intractable nausea and vomiting: Status: Acute (2) Gastroparesis: Status: Acute (3) Orthostatic hypotension: Status: Acute Plan A 49-year-old adopted female with past medical history DM Type I with insulin pump, gastroparesis secondary to diabetes, DKA, pyloric stenosis with history of G-Poem 2018 and will be having a revision in 2 weeks on June 18 at [facility], esophagitis, gastritis, chronic marijuana use, hypertension, herpes Zoster, UTI, non STEMI age 34, anxiety, bipolar 1 disorder, pancreatitis presents to the emergency department with 2 weeks of intermittent intractable nausea and vomiting with no unexplained weight loss but inability to tolerate clears and/or solid food consistently for last 72 hours. Patient was evaluated by EMS was found to be orthostatic and initially patient did not want to be taken to the ED by EMS advocated for patient to be seen. After intervention with medications and IV fluids, patient could still not tolerate oral intake and ED provider requested acceptance for admission for further monitoring. Intractable nausea/vomiting/ history of cyclical hyperemesis syndrome with marijuana use/ gastroparesis secondary to type 1 diabetes Continue IV fluids NPO, advance diet as tolerated when possible Pt deferred NG tube CT ABD negative for acute findings, no free air or fluid Lipase normal, LA pending Continue Reglan, Dilaudid and Zofran EKG pending: Monitor QTC Capsaicin cream PRN GI consulted Tachycardia EKG pending Telemetry ordered Likely secondary to hypovolemia, N/V, pain Patient did receive 1 dose of metoprolol in the ED Patient currently chest pain-free Orthostatic hypotension likely secondary to hypovolemia Patient's baseline blood pressure can run as low as 80/50 and she is normally on midodrine in the a.m. Patient has not been able to tolerate p.o. intake for the last 72 hours Patient has received 4 L of IV fluid and continues on a hourly rate Orthostatics to be checked Q shift x3 Bilateral nonobstructing renal stones UA noted +1 heme, neg nitrites, leuk esterase, no bacteria seen Continue hydration Renal fx stable Esophagitis Protonix IV b.i.d. HX of G-POEM Patient has planned revision on 06/18/2025 with surgeon at [facility] [place] Patient has an outpatient GI appointment with [facility] today: GI consulted for inpatient review IDDM Type 1 No evidence of DKA, hypoglycemia Patient currently has insulin pump in place but the devices off due to patient's NPO status and being in the emergency department Sliding scale insulin ordered for NPO status Patient understands that she can not use her continuous glucose monitoring while in the hospital for checking blood glucose levels Bipolar 1/ Anxiety Med rec pending, continue home meds once completed Patient denies any unusual anxiety, SI or HI concerns DVT prophylaxis: Lovenox Med rec pending Full code status Patient will require inpatient hospital admission with close hemodynamic monitoring, IV fluids and expert consultation with GI. Quality Stroke Does the patient have a stroke diagnosis?: No Reason for No Anti-thrombotic by Day Two: N/A - Med Ordered VTE Prior VTE?: No VTE Risk Level:: Medical - moderate - high VTE Device Contraindication: N/A - Device Ordered VTE Drug Contraindication: N/A - Med Ordered
[2025-06-07 05:33] LABS: Cannabinoid Screen Urine POSITIVE (Not Detect)
[2025-06-07] MEDS: Lactated Ringers 1,000 ML 100 ML IVCONT ×2 (05:52→15:46)
[2025-06-07 06:30] LABS: Glucose, Whole Blood 127 mg/dL (60-115)
--- NOTE | 2025-06-07 11:07 | PM.GICN ---
History of Present Illness Data of Consult Service Date: 06/07/25 Requesting physician: Keesha Bhatt Primary Care Provider: Yulisa Avila MD HPI Reason for consult: Abd pain, N,V This is a 48-year-old female past medical history of type 1 diabetes complicated by diabetic gastroparesis status post G-POEM 2018, planned revision 06/18, chronic marijuana use, who presented to the hospital 06/06 for severe dehydration. Pt well known to our service for gastroparesis and currently undergoing eval at [facility] ([facility]) for GPOEM revision. Per pt's report this is booked for next week. Gastroenterology has been consulted for recurrent episode of abdominal pain, nausea and vomiting. Patient reports onset of epigastric pain with N/V x1 week ago. She tried to mitigate this at home with restricting diet to clear liquids only however as not been able to keep that down either the last 2 days. When she almost passed out yesterday in the bathroom due to lightheadedness she was brought to ER. She also reports constipation x 3 days but is passing flatus. On arrival to the emergency room, she was noted to be tachycardiac with soft pressures. Labs with GEORGETTE cr of 1.2. UA with glucosuria without ketones. CT abd/pel with esophagitis. EGD 12/24/24: Normal esophagus Normal stomach Narrow pyloric inlet (dilation) Normal duodenum ?? Review of Systems Review of Systems: Yes all other systems are reviewed and are negative PMFSH Past Medical History Medical History Intractable nausea and vomiting NSTEMI (non-ST elevated myocardial infarction) (~2010) Acute UTI Chronic hypertension Diabetes mellitus with gastroparesis Diabetes mellitus type 1 Herpes zoster Status post fall Recurrent UTI Anxiety Bipolar 1 disorder Pancreatitis Surgical History Surgical History History of cholecystectomy History of tonsillectomy History of ERCP H/O pyloroplasty History of appendectomy H/O: hysterectomy Social History Social History Household Members: Spouse Housing: Other Housing Other:: trailor Do you presently have visiting nurse or other home services: No Alcohol intake: never Comment: pt refused bed alarm Patient Tobacco Use Status: Former Tobacco user Tobacco use type: Cigarette e-Cigarette/Vaping Use: Never Used Second Hand Smoke Exposure: No Substance Use Type: Marijuana Advance Directives Date on File: 12/03/22 service: No Current occupational status: disabled Cognitive needs: No Hearing needs: No Vision needs: No Travel History Ebola Risk: Travel/Contact With Anyone From Affected Area/s: No Has Patient Experienced Ebola Symptoms: No Meds Allergies Allergy/AdvReac Type Severity Reaction Status Date / Time morphine (MORPHINE) Allergy Intermediate RASH, Verified 06/06/25 15:17 hives, hives mushroom Allergy Intermediate HIVES/RASH Verified 06/06/25 15:17 Sulfa (Sulfonamide Allergy Mild Rash Verified 06/06/25 15:17 Antibiotics) Active Medications: Current Medications Acetaminophen (Acetaminophen 325 Mg Tablet) 650 mg PO Q6H PRN PRN Reason: Pain, Mild 1-3,fever,headache Albuterol/Ipratropium (Albuterol/Iprat 2.5/0.5mg 3 Ml Ampul.Neb) 3 ml INHALE Q4H PRN PRN Reason: Shortness of Breath/Wheezing Calcium Carbonate (Calcium Carbonate 750 Mg Tab.Chew) 750 mg PO Q4H PRN PRN Reason: Heartburn Capsaicin (Capsaicin 0.025% Cream 60 Gm Tube) 1 appl TOPICAL TID PRN; Protocol PRN Reason: Nausea Dextrose (Dextrose 50 % 25 Gm/50 Ml Syringe) 25 gm IVPUSH Q15M PRN; Protocol PRN Reason: per Hypoglycemia Standing Ord. Enoxaparin Sodium (Enoxaparin Sodium 40 Mg/0.4 Ml Syringe) 40 mg SUBCUT DAILY [facility] Last Admin: 06/07/25 05:51 Dose: 40 mg Glucose (Glucose Gel 15 Gm Gel..Gram.) 15 gm PO Q15M PRN; Protocol PRN Reason: per Hypoglycemia Standing Ord. Hydromorphone HCl (Hydromorphone Hcl 1 Mg/Ml Syringe) 0.5 mg IVPUSH Q3H PRN; Protocol PRN Reason: Pain, Moderate(Pain Scale 4-6) Lactated Ringer's (Lr) 1,000 mls @ 100 mls/hr IVCONT .Q10H [facility] Last Admin: 06/07/25 05:52 Dose: 100 mls/hr Insulin Human Lispro (Insulin Lispro 100 Unit/Ml 3 Ml Vial) 0 unit SUBCUT Q6H [facility]; Protocol Last Admin: 06/07/25 06:31 Dose: Not Given Magnesium Hydroxide (Milk Of Magnesia 30 Ml Oral.Susp) 30 ml PO DAILY PRN PRN Reason: Constipation Melatonin (Melatonin 3 Mg Tablet) 6 mg PO BEDTIME PRN PRN Reason: Insomnia Metoclopramide HCl (Metoclopramide Hcl 10 Mg/2 Ml Vial) 10 mg IVPUSH Q6H PRN PRN Reason: Nausea and Vomiting Ondansetron HCl (Ondansetron Hcl 4 Mg/2 Ml Vial) 4 mg IVPUSH Q8H PRN PRN Reason: Nausea and Vomiting Pantoprazole Sodium (Pantoprazole Sodium 40 Mg/10 Ml Vial) 40 mg IVPUSH BID@0630,1630 [facility] Last Admin: 06/07/25 06:37 Dose: 40 mg Polyethylene Glycol (Polyethylene Glycol 3350 17 Gm Powd.Pack) 17 gm PO DAILY PRN PRN Reason: Constipation Sodium Chloride (0.9 % Sodium Chloride Flush 3 Ml Syringe) [facility] Last Admin: 06/07/25 08:53 Dose: Not Given Home Medications ?Medication ?Instructions ?Recorded ?Confirmed ?Last Taken ?Type lamotrigine 200 mg tablet 200 mg PO BID 05/11/20 06/07/25 06/06/25 History lorazepam 1 mg tablet 1 mg PO TID PRN Anxiety 05/11/20 06/07/25 06/06/25 History zolpidem 10 mg tablet 10 mg PO BEDTIME 05/11/20 06/07/25 06/06/25 History insulin aspart U-100 100 unit/mL See Protocol subcut TIDWM 07/23/24 06/07/25 11/04/24 History subcutaneous solution (Novolog U-100 Insulin aspart) insulin glargine 100 unit/mL (3 15 unit subcut DAILY PRN when pump 09/17/24 06/07/25 Unknown History mL) subcutaneous pen (Lantus not working Solostar U-100 Insulin) subcutaneous insulin pump 09/17/24 09/17/24 Unknown History blood-glucose sensor (Dexcom G6 11/04/24 Unknown History Sensor device) blood-glucose transmitter (Rupeetalkcom 11/04/24 Unknown History G6 Transmitter device) omeprazole 20 mg capsule,delayed 20 mg PO BID 01/18/25 06/07/25 06/06/25 History release risperidone 3 mg tablet 3 mg PO BID 06/07/25 06/07/25 06/06/25 History Physical Exam Exam: Exam: middle aged female NAD nonicteric abd soft, tender, nondsitended no BANG Vital Signs: Vital Signs: Last Vital Signs Temp 97.8 F 06/06/25 22:37 Pulse 104 H 06/07/25 08:34 Resp 12 06/07/25 08:34 BP 132/74 06/07/25 08:34 Pulse Ox 98 06/07/25 08:34 O2 Del Method Room Air 06/07/25 08:34 BMI result Body Mass Index 26.5 Results Labs 06/06/25 17:34 06/07/25 12:44 Labs: Short CBC 06/06/25 Range/Units 17:34 WBC 11.9 H (4.8-10.8) X10*3/uL Hgb 9.3 L D (12.0-16.0) g/dl Hct 28.8 L D (37.0-47.0) % Plt Count 472 H (160-400) X10*3/uL BMP 06/06/25 17:34 Sodium 138 Potassium 3.8 Chloride 102 Carbon Dioxide 23 BUN 20 H Creatinine 1.26 Calcium 9.4 D Liver Function 06/06/25 Range/Units 17:34 Total Bilirubin 0.2 (0.0-1.0) mg/dL AST 15 (5-31) U/L ALT 7 (0-31) U/L Alkaline Phosphatase 103 (39-117) U/L Albumin 4.3 (3.5-5.0) g/dL Urine 06/07/25 Range/Units 03:40 Urine Color Yellow Urine Appearance Clear Urine pH 7.5 (5.0-9.0) Ur Specific [place] 1.025 (1.005-1.025) Urine Protein Negative (Neg-Trace) mg/dL Urine Glucose (UA) 500 H (Negative) mg/dL Assessment and Plan (1) Diabetic gastroparesis: Status: Acute (2) Abdominal pain: Status: Acute (3) Nausea and vomiting: Qualifiers: Vomiting type: unspecified Qualified Code(s): R11.2 - Nausea with vomiting, unspecified Status: Acute (4) Type 1 diabetes: Status: Acute Plan Likely has gastroparesis flare. Other Ddx include CHS, cyclical vomiting, PUD. Currently pt reports improvement in N/V but epigastric pain continues to bother her. Plan: - OK for clears today - Check 12 lead EKG and if QTc normal IV erythromycin 250 mg TID - If minimal response, can consider EGD tmrw to r/o PUD (NPO after [place] order placed, can be DCed if pt improves) - minimize opiates as that can further decrease gastric emptying - Consider trial of capsaicin cream for abd pain - Optimize BG control, target <180 mg/dl - Agree with IV PPI for now. Can be switched to PO when pt able to takes oral meds. Thank you for allowing me to participate in her care. Please do not hesitate to reach out for any questions or concerns. Procedures Date of Service Date of Service: 06/07/25
--- NOTE | 2025-06-07 11:56 | PHA.MEDREC ---
Pharmacy Consult ? Medication Reconciliation Pharmacy has completed the medication reconciliation. Spoke to patient to confirm medication list. Per patient, she uses novolog with meals per sliding scale and lantus 15 units when the insulin pump fails. Patient confirmed her dose of risperidone has increased to 3 mg bid. Last dose of medications was yesterday morning 06/06/25.
--- NOTE | 2025-06-07 12:18 | PC.NURSE ---
qshift orthos complete - pt still orthostaticly hypotensive. BP returns to WNL when lying back down
[2025-06-07 13:11] LABS: Anion Gap 15 (12-20); Blood Urea Nitrogen 15 mg/dL (9-16); Calcium 8.7 mg/dL (8.4-10.2); Carbon Dioxide 26 mmol/L (22-29); Chloride 99 mmol/L (96-108); Creatinine Clr Calc Pharmacy 72.3; Estimated Glomerular Filt Rate > 60; Magnesium 1.5 mg/dL (1.6-2.6); Potassium 3.3 mmol/L (3.3-5.1); Sodium 137 mmol/L (135-145)
[2025-06-07 14:36] LABS: Glucose, Whole Blood 217 mg/dL (60-115)
--- NOTE | 2025-06-07 14:44 | PC.NURSE ---
pt random glucose 347, POC a couple hours later is 217. message sent to MD hospitalist about SS insulin. Pt is NPO and is not eating or drinking. her insulin pump is turned off. No reply from about admin of SS insulin. at this time inulin held due to Pt NPO, and POC 217
--- NOTE | 2025-06-07 16:14 | MHC.CM.PN ---
CM attempted to meet with pt. this am and this afternoon, she is sleeping soundly, did not wake to voice, CM will complete assessment tomorrow.
[2025-06-07 17:47] LABS: Glucose, Whole Blood 92 mg/dL (60-115)
--- NOTE | 2025-06-07 18:07 | PC.NURSE ---
patient admitted to [facility] , alert and oriented , RN asked the patient about her insulin pump and she said that the pump is off . blood sugar 92 via finger stick. patient pxaoqa3s her pump and stated that her pump was ON and she is turning the pump OFF now . She stated that her Insulin pump is T-slim [employer] . pt was instructed to detach her pump from her body per [facility] policy. pt is refusing to do that . She stated that she will keep the pum to check blood sugar. Dr Mello was notified
--- NOTE | 2025-06-07 18:28 | PC.NURSE ---
blood sugar 75 , Md Crandall notified
[2025-06-07 18:30] LABS: Glucose, Whole Blood 75 mg/dL (60-115)
[2025-06-07] MEDS: Dextrose 5 % and Lactated Ring 1,000 ML 75 ML IVCONT (18:44)
--- NOTE | 2025-06-07 18:45 | PC.NURSE ---
MD Mello was notified about BS 75, new order for IV fluids D5 LR @ 75 ml/HR
[2025-06-07 19:09] LABS: Glucose, Whole Blood 81 mg/dL (60-115)
--- NOTE | 2025-06-07 19:29 | PC.NURSE ---
pt removed Insulin pump at 1845
[2025-06-07 20:55] LABS: Glucose, Whole Blood 152 mg/dL (60-115)
[2025-06-08] VITALS (13 sets, daily range): BP systolic 90–159; BP diastolic 49–76; PULSE 77–110; RESP 12–20; TEMP 36.1–37.1; O2SAT 95–99
[2025-06-08 00:15] LABS: Glucose, Whole Blood 287 mg/dL (60-115)
[2025-06-08 06:00] LABS: Glucose, Whole Blood 200 mg/dL (60-115)
--- NOTE | 2025-06-08 07:00 | CA_ITS ---
Transthoracic Echocardiogram Patient (Last, First, Middle): Yumiko Sena E Gender: Female Date of : 1975 Age: 49 Procedure Date: 06/08/2025 Procedure Type: Transthoracic Echocardiogram Location: [facility] [place] Height: 167.64 cm Weight: 71.67 kg BSA: 1.81 m2 Heart Rate: 80 bpm BP: 159 / 76 mmHg Tennis Net Maker: LORRAINE Referring MD: Marquis Mello MD Symptoms: orthostatic hypotension/ tachycardia/ syncope Study Quality: Adequate w/Contrast ECG Rhythm: Sinus Conclusions: - Normal left ventricular size and systolic function. There is mildly increased left ventricular wall thickness. The visually estimated ejection fraction is between 60-65%. - E/E prime ratio is between 8 and 15 consistent with indeterminate filling pressures. - Normal right ventricular cavity size and systolic function. Findings Procedure Information Contrast agent, definity, is being given per protocol without apparent complications. Left Ventricle Normal left ventricular size and systolic function. There is mildly increased left ventricular wall thickness. The visually estimated ejection fraction is between 60-65%. Abnormal diastolic function is noted. Spectral Doppler is indicative of a pseudonormal filling pattern. E/E prime ratio is between 8 and 15 consistent with indeterminate filling pressures. Right Ventricle Normal right ventricular cavity size and systolic function. Atria The left atrium is normal in size. The right atrium is normal in size. Aortic Valve Normal aortic valve structure and function. There is no aortic valve stenosis. There is no aortic valve regurgitation. Mitral Valve The mitral valve appears normal. There is trace mitral valve regurgitation. There is no mitral valve stenosis. Pulmonic Valve The pulmonic valve is likely normal. Tricuspid Valve Normal tricuspid valve structure. There is trace tricuspid valve regurgitation. Tricuspid regurgitation envelope is inadequate for calculation of right ventricular systolic pressure. Normal right atrial pressure. Great Vessels All visible segments of the aorta are normal in size. Venous The inferior vena cava is normal in size and collapses greater than 50% with inspiration. Pericardium/Pleural There is no evidence of pericardial effusion. Prior Study Comparison No prior study available for comparison. Measurements 2D Linear Measurements IVSd: 0.94 0.6-0.9/0.6-1.0 cm LVIDd: 4.40 3.9-5.3/4.2-5.9 cm LVIDd Index: 2.43 2.4-3.2/2.2-3.1 cm/m2 LVIDs: 2.91 2.0-3.6 cm LVPWd: 1.01 0.7-1.1 cm LA Diam: 3.70 2.7-3.8/3.0-4.0 cm LAIDs Index: 2.04 1.5-2.3 cm/m2 LV Mass: 177.45 67-162/88-224 g LV Mass Index: 98.04 43-95/49-115 g/m2 LVOT Diam: 1.80 3.0+(-)1.3 cm 2D Systolic Function EF 4C: 77.20 >55% EF 2C: 66.10 >55% EF BiP: 71.00 >55% Mitral Valve MV Pk E: 1.14 MV PK A: 1.13 MV Decel Time: 196.00 E/A: 1.00 E'Lateral: 9.79 E'Medial: 6.31 E/E' Med: 18.10 E/E' Lat: 11.60 PHT: 57.00 MVA PHT: 3.86 Decel [place]: 5.84 Aortic Valve AoV Pk Bam: 1.34 AoV Mn Bam: 0.95 AoV VTI: 0.31 AoV Pk Grad: 7.00 Aov Mn Grad: 4.00 JOSE ARMANDO Cont.VTI: 1.92 LVOT LVOT Pk Bam: 1.04 LVOT Mn Bam: 0.72 LVOT VTI: 0.24 LVOT Pk Grad: 4.00 LVOT Mn Grad: 2.00 LVOT Diam: 1.80 LVOT Area: 2.54 Diastolic Function MV Pk E: 1.14 MV Pk A: 1.13 E/A: 1.00 E'Medial: 6.31 E/E' Med: 18.10 E' Laterial: 9.79 E/E' Lat: 11.60 Right Ventricle TAPSE (mm): 19.40 TVS' Bam: 11.60 Tricuspid Valve TR Pk Bam: 2.14 TR Pk Grad: 18.00 Great Vessels Aorta Sinus of Valsalva: 2.90 2.0-3.5 cm Ao Asc: 2.80 2.1-3.4 cm Ao Arch: 2.60 Pulmonary Veins Pulm Vein S/D 1.30 Pulmonary Valve PV Pk Bam: 1.02 Peak PV Grad: 4.00 Updated in Other Vendor System with Status of Final Cory Emanuel MD electronically signed on 06/09/2025 1:43:38 PM with status of Final
[2025-06-08 07:01] LABS: MANUAL DIFF FLAG NO
[2025-06-08 07:12] LABS: Hematocrit 26.6 % (37.0-47.0); Hemoglobin 8.6 g/dl (12.0-16.0); Imm Gran Abs Auto 0.03 X10*3/uL (0.00-0.03); Imm Gran Pct Auto 0.3 % (0.0-0.4); Lymphocytes Absolute Auto 4.0 X10*3/uL (1.2-4.9); Mean Corpuscular HGB Conc 32.3 g/dl (31.0-35.0); Mean Corpuscular Hemoglobin 25.9 pg (27.0-33.0); Mean Corpuscular Volume 80.1 fL (80.0-98.0); NRBC Abs Auto 0.000 X10*3/uL (0.0-0.012); NRBC Pct Auto 0.0 /100WBC (0.0-0.2); Platelet Count 496 X10*3/uL (160-400); Red Blood Count 3.32 X10*6/uL (4.20-5.50); White Blood Count 11.1 X10*3/uL (4.8-10.8)
[2025-06-08 07:30] LABS: Alanine Aminotransferase 6 U/L (0-31); Albumin Level 3.8 g/dL (3.5-5.0); Alkaline Phosphatase 95 U/L (39-117); Anion Gap 13 (12-20); Aspartate Amino Transferase 15 U/L (5-31); Blood Urea Nitrogen 16 mg/dL (9-16); Calcium 9.0 mg/dL (8.4-10.2); Carbon Dioxide 29 mmol/L (22-29); Chloride 99 mmol/L (96-108); Creatinine Clr Calc Pharmacy 81.4; Estimated Glomerular Filt Rate > 60; Potassium 3.3 mmol/L (3.3-5.1); Sodium 138 mmol/L (135-145); Total Protein 6.5 g/dL (6.5-8.0)
[2025-06-08] MEDS: Dextrose 5 % and Lactated Ring 1,000 ML 75 ML IVCONT (08:53)
[2025-06-08] MEDS: 0.9 % Sodium Chloride Flush 3 ML SYRINGE IVFLUSH ×3 (08:54→19:42)
[2025-06-08] MEDS: Flu Vacc TS2025-26(6mo up)/PF 0.5 ML SYRINGE IM (08:58)
[2025-06-08] MEDS: Thiamine HCL 200 MG in 0.9 % Sodium Chloride 100 ML 204 MG IV (10:34)
[2025-06-08 11:15] LABS: Glucose, Whole Blood 378 mg/dL (60-115)
--- NOTE | 2025-06-08 11:23 | MHC.CM.PN ---
IMM 06/08/25, Pt. lives with her , she does not use home health services, she has diabetic supplies (a pump) for DME. PCP is confirmed: Yulisa Avila MD. HCP is on file and confirmed: Deon. Pt. is able to arrange a ride home at [place], DCP: home, self care, CM to follow for DC needs.
[2025-06-08 13:10] LABS: Glucose, Whole Blood 323 mg/dL (60-115)
--- NOTE | 2025-06-08 13:18 | PC.NURSE ---
Dr. Mares and Dr. Fletcher aware of POC on floor and interventions. Plan is to bring patient to [facility], and re-check POC at 1345 to see if it is trending down per dr. mares.
[2025-06-08 13:51] LABS: Glucose, Whole Blood 283 mg/dL (60-115)
--- NOTE | 2025-06-08 13:52 | PC.NURSE ---
Dr. Mares aware of POC of 283. Okay to proceed.
--- NOTE | 2025-06-08 13:55 | HO.ANESPROP2 ---
Documented by User: Ro Watts NP 06/07/25 12:18 HPI - Anesthesia Eval Consult details Narrative: 49yo F for Upper Endoscopy s/p EGD 12/2024 with TIVA Frequent hospitalization for nausea, vomiting and abdominal pain related to cyclical vomiting and gastroparesis /high risk DKA +daily marijuana use NSTEMI 2010 [facility] Active Problems Active Problems: All Active Problems Cyclical vomiting, intractable (Acute) Intractable nausea and vomiting (Acute) Orthostatic hypotension (Acute) Gastroparesis (Acute) Type 1 diabetes (Acute) Abdominal pain (Acute) Nausea and vomiting (Acute) Insomnia (Acute) Nevus of female breast (Acute) Annual physical exam (Acute) Type 1 diabetes (Acute) Type 1 diabetes (Acute) Urinary frequency (Acute) Dysuria (Acute) Hospital discharge follow-up (Acute) Diabetic gastroparesis (Acute) Screening for breast cancer (Acute) Screening for colon cancer (Acute) Adult general medical exam (Acute) UTI (urinary tract infection) (Acute) Idiopathic hypotension (Acute) GERD (gastroesophageal reflux disease) (Acute) Screening for hyperlipidemia (Acute) History of non-ST elevation myocardial infarction (NSTEMI) (Acute) Diabetes type 1, controlled (Acute) Acute kidney injury (Acute) Hyperkalemia (Acute) Osteoarthritis of lumbar spine with myelopathy (Acute) Recurrent UTI (Acute) Anxiety (Acute) Bipolar 1 disorder (Acute) Past Medical History Medical History Intractable nausea and vomiting NSTEMI (non-ST elevated myocardial infarction) (~2010) Acute UTI Chronic hypertension Diabetes mellitus with gastroparesis Diabetes mellitus type 1 Herpes zoster Status post fall Recurrent UTI Anxiety Bipolar 1 disorder Pancreatitis Functional capacity: independent ambulation Family History Family history of problems with anesthesia: No Surgical History Surgical History History of cholecystectomy History of tonsillectomy History of ERCP H/O pyloroplasty History of appendectomy H/O: hysterectomy History of Problems with Anesthesia: No Social History Social History Household Members: Spouse Housing: Apartment Housing Other:: trailor Are you a primary home care rn to a significant other at home: No Do you presently have visiting nurse or other home services: No Alcohol intake: never Comment: pt refused bed alarm Patient Tobacco Use Status: Former Tobacco user Tobacco use type: Cigarette e-Cigarette/Vaping Use: Never Used Second Hand Smoke Exposure: No Substance Use Type: Marijuana Advance Directives Date on File: 12/03/22 service: No Current occupational status: disabled Cognitive needs: No Hearing needs: No Vision needs: No Meds Allergies Allergy/AdvReac Type Severity Reaction Status Date / Time morphine (MORPHINE) Allergy Intermediate RASH, Verified 06/08/25 13:53 hives, hives mushroom Allergy Intermediate HIVES/RASH Verified 06/08/25 13:53 Sulfa (Sulfonamide Allergy Mild Rash Verified 06/08/25 13:53 Antibiotics) Active Medications: Current Medications Acetaminophen (Acetaminophen 325 Mg Tablet) 650 mg PO Q6H PRN PRN Reason: Pain, Mild 1-3,fever,headache Albuterol/Ipratropium (Albuterol/Iprat 2.5/0.5mg 3 Ml Ampul.Neb) 3 ml INHALE Q4H PRN PRN Reason: Shortness of Breath/Wheezing Calcium Carbonate (Calcium Carbonate 750 Mg Tab.Chew) 750 mg PO Q4H PRN PRN Reason: Heartburn Capsaicin (Capsaicin 0.025% Cream 60 Gm Tube) 1 appl TOPICAL TID PRN; Protocol PRN Reason: Nausea Dextrose (Dextrose 50 % 25 Gm/50 Ml Syringe) 25 gm IVPUSH Q15M PRN; Protocol PRN Reason: per Hypoglycemia Standing Ord. Enoxaparin Sodium (Enoxaparin Sodium 40 Mg/0.4 Ml Syringe) 40 mg SUBCUT DAILY [facility] Last Admin: 06/07/25 05:51 Dose: 40 mg Glucose (Glucose Gel 15 Gm Gel..Gram.) 15 gm PO Q15M PRN; Protocol PRN Reason: per Hypoglycemia Standing Ord. Hydromorphone HCl (Hydromorphone Hcl 1 Mg/Ml Syringe) 0.5 mg IVPUSH Q3H PRN; Protocol PRN Reason: Pain, Moderate(Pain Scale 4-6) Lactated Ringer's (Lr) 1,000 mls @ 100 mls/hr IVCONT .Q10H [facility] Last Admin: 06/07/25 05:52 Dose: 100 mls/hr Insulin Human Lispro (Insulin Lispro 100 Unit/Ml 3 Ml Vial) 0 unit SUBCUT Q6H [facility]; Protocol Last Admin: 06/07/25 06:31 Dose: Not Given Magnesium Hydroxide (Milk Of Magnesia 30 Ml Oral.Susp) 30 ml PO DAILY PRN PRN Reason: Constipation Melatonin (Melatonin 3 Mg Tablet) 6 mg PO BEDTIME PRN PRN Reason: Insomnia Metoclopramide HCl (Metoclopramide Hcl 10 Mg/2 Ml Vial) 10 mg IVPUSH Q6H PRN PRN Reason: Nausea and Vomiting Ondansetron HCl (Ondansetron Hcl 4 Mg/2 Ml Vial) 4 mg IVPUSH Q8H PRN PRN Reason: Nausea and Vomiting Pantoprazole Sodium (Pantoprazole Sodium 40 Mg/10 Ml Vial) 40 mg IVPUSH BID@0630,1630 [facility] Last Admin: 06/07/25 06:37 Dose: 40 mg Polyethylene Glycol (Polyethylene Glycol 3350 17 Gm Powd.Pack) 17 gm PO DAILY PRN PRN Reason: Constipation Sodium Chloride (0.9 % Sodium Chloride Flush 3 Ml Syringe) 3 ml IVFLUSH QSHIFT [facility] Last Admin: 06/07/25 08:53 Dose: Not Given Home Medications ?Medication ?Instructions ?Recorded ?Confirmed ?Last Taken ?Type lamotrigine 200 mg tablet 200 mg PO BID 05/11/20 06/07/25 06/06/25 History lorazepam 1 mg tablet 1 mg PO TID PRN Anxiety 05/11/20 06/07/25 06/06/25 History zolpidem 10 mg tablet 10 mg PO BEDTIME 05/11/20 06/07/25 06/06/25 History insulin aspart U-100 100 unit/mL See Protocol subcut TIDWM 07/23/24 06/07/25 11/04/24 History subcutaneous solution (Novolog U-100 Insulin aspart) insulin glargine 100 unit/mL (3 15 unit subcut DAILY PRN when pump 09/17/24 06/07/25 Unknown History mL) subcutaneous pen (Lantus not working Solostar U-100 Insulin) subcutaneous insulin pump 09/17/24 09/17/24 Unknown History blood-glucose sensor (Dexcom G6 11/04/24 Unknown History Sensor device) blood-glucose transmitter (Dexcom 11/04/24 Unknown History G6 Transmitter device) omeprazole 20 mg capsule,delayed 20 mg PO BID 01/18/25 06/07/25 06/06/25 History release risperidone 3 mg tablet 3 mg PO BID 06/07/25 06/07/25 06/06/25 History Exam Height,Weight and Vital Signs: Height 5 ft 6 in Weight 74.5 kg Last Vital Signs Temp 97.8 F 06/06/25 22:37 Pulse 120 H 06/07/25 12:09 Resp 16 06/07/25 12:09 BP 147/92 H 06/07/25 12:09 Pulse Ox 97 06/07/25 12:09 O2 Del Method Room Air 06/07/25 12:09 Pertinent Lab Results Pertinent Lab Results: Laboratory Tests 06/06/25 06/06/25 06/06/25 15:24 17:34 17:42 WBC 11.9 H RBC 3.64 L D Hgb 9.3 L D Hct 28.8 L D MCV 79.1 L MCH 25.5 L MCHC 32.3 RDW 16.7 H Plt Count 472 H MPV 8.5 L Immature Gran % (Auto) 0.3 Neut % (Auto) 81.7 H Lymph % (Auto) 13.1 L [place] % (Auto) 4.6 Eos % (Auto) 0.0 Baso % (Auto) 0.3 Lymph # (Auto) 1.6 [place] # (Auto) 0.5 Eos # (Auto) 0.0 Baso # (Auto) 0.0 Abs Immat Gran (auto) 0.03 Absolute Neuts (auto) 9.7 H Absolute Nucleated RBC 0.000 Nucleated RBC % (auto) 0.0 VBG pH 7.51 H VBG pCO2 29 VBG pO2 163 VBG HCO3 23 VBG O2 Saturation 99.0 VBG Base Excess 1.3 Sodium 138 Potassium 3.8 Chloride 102 Carbon Dioxide 23 Anion Gap 17 BUN 20 H Creatinine 1.26 Estim Creat Clear Calc 55.1 Estimated GFR 45 POC Glucose 235 H Random Glucose 165 H Lactic Acid Calcium 9.4 D Magnesium 2.0 Total Bilirubin 0.2 AST 15 ALT 7 Alkaline Phosphatase 103 Total Protein 7.4 Albumin 4.3 Lipase 6 L Beta-Hydroxybutyrate 0.09 Urine Color Urine Appearance Urine pH Ur Specific Bernie Urine Protein Urine Glucose (UA) Urine Ketones Urine Blood Urine Nitrite Ur Leukocyte Esterase Urine RBC Urine WBC Ur Squamous Epith Cells Urine Bacteria Hyaline Casts Urine Opiates Screen Ur Buprenorphine Scrn Ur Oxycodone Screen Urine Methadone Screen Urine Fentanyl Screen Ur Barbiturates Screen Ur Phencyclidine Scrn Ur Amphetamines Screen U Benzodiazepines Scrn Urine Cocaine Screen U Marijuana (THC) Screen Influenza Type A (PCR) Influenza Type B (PCR) RSV RNA Qual (PCR) SARS-CoV-2 RNA (RT-PCR) 06/06/25 06/07/25 06/07/25 22:57 00:54 03:33 WBC RBC Hgb Hct MCV MCH MCHC RDW Plt Count MPV Immature Gran % (Auto) Neut % (Auto) Lymph % (Auto) [place] % (Auto) Eos % (Auto) Baso % (Auto) Lymph # (Auto) [place] # (Auto) Eos # (Auto) Baso # (Auto) Abs Immat Gran (auto) Absolute Neuts (auto) Absolute Nucleated RBC Nucleated RBC % (auto) VBG pH VBG pCO2 VBG pO2 VBG HCO3 VBG O2 Saturation VBG Base Excess Sodium Potassium Chloride Carbon Dioxide Anion Gap BUN Creatinine Estim Creat Clear Calc Estimated GFR POC Glucose 151 H 126 H Random Glucose Lactic Acid Calcium Magnesium Total Bilirubin AST ALT Alkaline Phosphatase Total Protein Albumin Lipase Beta-Hydroxybutyrate Urine Color Urine Appearance Urine pH Ur Specific Bernie Urine Protein Urine Glucose (UA) Urine Ketones Urine Blood Urine Nitrite Ur Leukocyte Esterase Urine RBC Urine WBC Ur Squamous Epith Cells Urine Bacteria Hyaline Casts Urine Opiates Screen Ur Buprenorphine Scrn Ur Oxycodone Screen Urine Methadone Screen Urine Fentanyl Screen Ur Barbiturates Screen Ur Phencyclidine Scrn Ur Amphetamines Screen U Benzodiazepines Scrn Urine Cocaine Screen U Marijuana (THC) Screen Influenza Type A (PCR) NEGATIVE Influenza Type B (PCR) NEGATIVE RSV RNA Qual (PCR) NEGATIVE SARS-CoV-2 RNA (RT-PCR) NEGATIVE 06/07/25 06/07/25 06/07/25 03:40 06:26 06:38 WBC RBC Hgb Hct MCV MCH MCHC RDW Plt Count MPV Immature Gran % (Auto) Neut % (Auto) Lymph % (Auto) [place] % (Auto) Eos % (Auto) Baso % (Auto) Lymph # (Auto) [place] # (Auto) Eos # (Auto) Baso # (Auto) Abs Immat Gran (auto) Absolute Neuts (auto) Absolute Nucleated RBC Nucleated RBC % (auto) VBG pH VBG pCO2 VBG pO2 VBG HCO3 VBG O2 Saturation VBG Base Excess Sodium Potassium Chloride Carbon Dioxide Anion Gap BUN Creatinine Estim Creat Clear Calc Estimated GFR POC Glucose 127 H Random Glucose Lactic Acid 0.8 Calcium Magnesium Total Bilirubin AST ALT Alkaline Phosphatase Total Protein Albumin Lipase Beta-Hydroxybutyrate Urine Color Yellow Urine Appearance Clear Urine pH 7.5 Ur Specific Bernie 1.025 Urine Protein Negative Urine Glucose (UA) 500 H Urine Ketones Negative Urine Blood Small (1+) H Urine Nitrite Negative Ur Leukocyte Esterase Negative Urine RBC 3-5 H Urine WBC 0-5 Ur Squamous Epith Cells 0-2 Urine Bacteria None Seen Hyaline Casts 0-2 Urine Opiates Screen Not Detected Ur Buprenorphine Scrn Not Detected Ur Oxycodone Screen Not Detected Urine Methadone Screen Not Detected Urine Fentanyl Screen Not Detected Ur Barbiturates Screen Not Detected Ur Phencyclidine Scrn Not Detected Ur Amphetamines Screen Not Detected U Benzodiazepines Scrn Not Detected Urine Cocaine Screen Not Detected U Marijuana (THC) Screen POSITIVE H Influenza Type A (PCR) Influenza Type B (PCR) RSV RNA Qual (PCR) SARS-CoV-2 RNA (RT-PCR) Narrative Narrative: EKG 06/07/25 Vent. Rate : 113 BPM Atrial Rate : 113 BPM P-R Int : 144 ms QRS Dur : 80 ms QT Int : 342 ms P-R-T Axes : 57 41 34 degrees QTcB Int : 469 ms Sinus tachycardia T wave abnormality, consider anterior ischemia Abnormal ECG When compared with ECG of 06-Jun-2025 15:47, No significant change was found Assessment and Plan Assessment Anesthesia Assessment: Anesthesia Plan Discussed and Chart Reviewed Final Anesthetic Review Family History of Problems with Anesthesia: No History of Problems with Anesthesia: No NPO: Yes ASA Class: III Final Preanesthetic Review: Meds/Allgs Chart Reviewed, Consent Obtained/Reviewed and Anes Risks/Benef Reviewed Patient Risk: Intermediate Procedure Risk: Intermediate Anesthetic Plan Anesthetic Plan: MAC: Disposition: Standard PACU Documented by User: Barbara Mares DO 06/08/25 13:59 HPI - Anesthesia Eval Consult details Narrative: 49yo F for Upper Endoscopy s/p EGD 12/2024 with TIVA Frequent hospitalization for nausea, vomiting and abdominal pain related to cyclical vomiting and gastroparesis / high risk DKA +daily marijuana use NSTEMI 201006/08/25: patient's POC glucose was 378 this morning. She was receiving D5 which was stopped. 10 units of lispro given by hospitalist team and recheck was initially 323 then 283 in pre-op. [facility] Past Medical History Medical History Intractable nausea and vomiting NSTEMI (non-ST elevated myocardial infarction) (~2010) Acute UTI Chronic hypertension Diabetes mellitus with gastroparesis Diabetes mellitus type 1 Herpes zoster Status post fall Recurrent UTI Anxiety Bipolar 1 disorder Pancreatitis Family History Family history of problems with anesthesia: No Surgical History Surgical History History of cholecystectomy History of tonsillectomy History of ERCP H/O pyloroplasty History of appendectomy H/O: hysterectomy History of Problems with Anesthesia: No Social History Social History Household Members: Spouse Housing: Apartment Housing Other:: trailor Are you a primary home care rn to a significant other at home: No Do you presently have visiting nurse or other home services: No Alcohol intake: never Comment: pt refused bed alarm Patient Tobacco Use Status: Former Tobacco user Tobacco use type: Cigarette e-Cigarette/Vaping Use: Never Used Second Hand Smoke Exposure: No Substance Use Type: Marijuana Advance Directives Date on File: 12/03/22 service: No Current occupational status: disabled Cognitive needs: No Hearing needs: No Vision needs: No Meds Allergies Allergy/AdvReac Type Severity Reaction Status Date / Time morphine (MORPHINE) Allergy Intermediate RASH, Verified 06/08/25 13:53 hives, hives mushroom Allergy Intermediate HIVES/RASH Verified 06/08/25 13:53 Sulfa (Sulfonamide Allergy Mild Rash Verified 06/08/25 13:53 Antibiotics) Home Medications ?Medication ?Instructions ?Recorded ?Confirmed ?Last Taken ?Type lamotrigine 200 mg tablet 200 mg PO BID 10/06/07/25 06/06/25 History lorazepam 1 mg tablet 1 mg PO TID PRN Anxiety 05/11/20 06/07/25 06/06/25 History zolpidem 10 mg tablet 10 mg PO BEDTIME 05/11/20 06/07/25 06/06/25 History insulin aspart U-100 100 unit/mL See Protocol subcut TIDWM 07/23/24 06/07/25 11/04/24 History subcutaneous solution (Novolog U-100 Insulin aspart) insulin glargine 100 unit/mL (3 15 unit subcut DAILY PRN when pump 09/17/24 06/07/25 Unknown History mL) subcutaneous pen (Lantus not working Solostar U-100 Insulin) subcutaneous insulin pump 09/17/24 09/17/24 Unknown History blood-glucose sensor (Dexcom G6 11/04/24 Unknown History Sensor device) blood-glucose transmitter (Dexcom 11/04/24 Unknown History G6 Transmitter device) omeprazole 20 mg capsule,delayed 20 mg PO BID 01/18/25 06/07/25 06/06/25 History release risperidone 3 mg tablet 3 mg PO BID 06/07/25 06/07/25 06/06/25 History Exam Exam Date and Time: 06/08/25 1350 Height,Weight and Vital Signs: Height 5 ft 6 in Weight 74.5 kg Last Vital Signs Temp 97.8 F 06/06/25 22:37 Pulse 120 H 06/07/25 12:09 Resp 16 06/07/25 12:09 BP 147/92 H 06/07/25 12:09 Pulse Ox 97 06/07/25 12:09 O2 Del Method Room Air 06/07/25 12:09 Vital Signs Temperature 97.9 F 06/06/25 15:14 Pulse Rate 120 H 06/06/25 15:14 Respiratory Rate 16 06/06/25 15:14 Blood Pressure 122/76 06/06/25 15:14 Pulse Oximetry 96 06/06/25 15:14 Oxygen Delivery Method Room Air 06/06/25 15:14 Temperature 98.1 F 06/08/25 13:50 Pulse Rate 94 06/08/25 13:50 Respiratory Rate 18 06/08/25 13:50 Blood Pressure 137/70 06/08/25 13:50 Pulse Oximetry 99 06/08/25 13:50 Oxygen Delivery Method Room Air 06/08/25 13:50 Airway Mallampati Class: II TM Dist: >3cm Neck ROM: Full Loose/Missing/Broken Teeth: Yes (multiple broken teeth) Heart: S1S2 Lungs: CTAB Assessment and Plan Assessment Anesthesia Assessment: Anesthesia Plan Discussed and Chart Reviewed Final Anesthetic Review Family History of Problems with Anesthesia: No History of Problems with Anesthesia: No ASA Class: III Final Preanesthetic Review: No Changes in Pt Med Stat, Meds/Allgs Chart Reviewed, Consent Obtained/Reviewed and Anes Risks/Benef Reviewed Patient Risk: Intermediate Procedure Risk: Low Anesthetic Plan Anesthetic Plan: MAC: and Agree w/ Assess. and Plan Disposition: Standard PACU
--- NOTE | 2025-06-08 14:09 | MHC.SHP ---
Pre-Procedural Eval Section A - 24 Hr Update-Section A only Date of Service: 06/08/25 The patient is an INPATIENT: Yes The patient has been examined within 24 hours of the surgical procedure. The History & Physical has been completed within 30 days and I have reviewed it.: Yes Section B - Complete if H&P > 30 days Chief Complaint: intractable nausea, cyclical hyperemesis syndrome Allergies: Allergies Allergy/AdvReac Type Severity Reaction Status Date / Time morphine (MORPHINE) Allergy Intermediate RASH, Verified 06/08/25 13:53 hives, hives mushroom Allergy Intermediate HIVES/RASH Verified 06/08/25 13:53 Sulfa (Sulfonamide Allergy Mild Rash Verified 06/08/25 13:53 Antibiotics) Plan Diagnosis/Plan: Unchanged I have reviewed the history and physical and performed a pertinent physical examination on my patient. No changes have occurred unless specified. Time Spent With Patient Time: Total time managing care of this patient today ____ minutes.
--- NOTE | 2025-06-08 15:49 | P.OP_ITS ---
Operative Note Operative Note Date of Service: 06/08/25 Narrative: Procedure: Esophagogastroduodenoscopy Endoscopist: Kasia Fletcher MD Indication: N/V Anesthesia Provider: Brenton Serrano CRNA Anesthesia Type: MAC ?? EGD Procedure:?? The procedure, indications, preparation and potential complications were reviewed with the patient, who indicated understanding and gave written informed consent to proceed. A physical exam was performed. The endoscope was introduced through the mouth, and advanced to the second part of duodenum. The mucosa was carefully examined on slow withdrawal of the endoscope. The patient tolerated the procedure well. There were no immediate complications.? ? EGD Findings:? * Esophagus:? Normal mucosa noted in the entire esophagus. The Z line was at 38 cm. * Stomach:?Mild erythema with scant heme noted in the fundus of the stomach. Retroflexion was performed in the cardia. Again noted was slightly narrow pyloric inlet but scope could traverse through this. * Duodenum:? 1 polyp of size 6 mm noted in proximal anterior duodenal bulb. Cold forceps polypectomy was performed. Normal mucosa was noted otherwise in the whole of the examined duodenum. ? EGD Impressions:? * Normal esophagus * Gastritis * Narrow pyloric inlet * Duodenal polyp Recommendations:?? * Follow path results * Small particle diet * Tight glycemic control * Avoid NSAIDs and opiate * Cont PPI * SHORT term trial of reglan 5 ml TID x 3 days. * Follow up at [facility] for GPOEM revision as scheduled. Above has been reviewed with the patient.
--- NOTE | 2025-06-08 16:10 | HO.PM.IMPN ---
Subjective Subjective Date of Service: 06/08/25 Interval History: Endorsing some persistent abdominal pain and spasming, with endorsed dizziness with changing position from lying to sitting and standing. Pending GI intervention with endoscopy Review of Systems Review of Systems: Yes all other systems are reviewed and are negative Physical Exam Exam: Exam: General: A&O x3, oriented to time place person and situation, comfortable, no pain Cardiac: S1, S2 auscultated with no S3/4, no MRG. Well perfused. Respiratory: Normal breath sounds auscultated throughout all lung zones, without wheezing, rales. Normal rate. GI/ : Tenderness on palpation of the abdomen generalized, most notable at the epigastric and umbilical regions on light and deep palpation. No rebound or guarding. No hepatosplenomegaly MSK: Normal ambulation without pain at bony prominences or musculature Neurological: Normal neurological examination on overview, without obvious CN II-XII abnormalities. Vital Signs: Vital Signs: Last Vital Signs Temp 97.4 F 06/08/25 14:45 Pulse 104 H 06/08/25 14:45 Resp 12 06/08/25 14:45 BP 117/75 06/08/25 14:45 Pulse Ox 98 06/08/25 14:45 O2 Del Method Room Air 06/08/25 14:45 BMI result Body Mass Index 25.7 Objective Data Active Medications Acetaminophen (Acetaminophen 325 Mg Tablet) 650 mg PO Q6H PRN PRN Reason: Pain, Mild 1-3,fever,headache Albuterol/Ipratropium (Albuterol/Iprat 2.5/0.5mg 3 Ml Ampul.Neb) 3 ml INHALE Q4H PRN PRN Reason: Shortness of Breath/Wheezing Calcium Carbonate (Calcium Carbonate 750 Mg Tab.Chew) 750 mg PO Q4H PRN PRN Reason: Heartburn Capsaicin (Capsaicin 0.025% Cream 60 Gm Tube) 1 appl TOPICAL TID PRN; Protocol PRN Reason: Nausea Cyanocobalamin (Cyanocobalamin (Vitamin B-12) 100 Mcg Tablet) 100 mcg PO DAILY RAISA Last Admin: 06/08/25 10:08 Dose: Not Given Documented By: NATALIE Non-Admin Reason: pt NPO EGD Dextrose (Dextrose 50 % 25 Gm/50 Ml Syringe) 25 gm IVPUSH Q15M PRN; Protocol PRN Reason: per Hypoglycemia Standing Ord. Enoxaparin Sodium (Enoxaparin Sodium 40 Mg/0.4 Ml Syringe) 40 mg SUBCUT DAILY [facility] Last Admin: 06/08/25 08:27 Dose: Not Given Documented By: NATALIE Non-Admin Reason: hold for EGD Folic Acid (Folic Acid 1 Mg Tablet) 1 mg PO DAILY [facility] Last Admin: 06/08/25 10:08 Dose: Not Given Documented By: NATALIE Non-Admin Reason: pt NPO EGD Glucose (Glucose Gel 15 Gm Gel..Gram.) 15 gm PO Q15M PRN; Protocol PRN Reason: per Hypoglycemia Standing Ord. Hydromorphone HCl (Hydromorphone Hcl 1 Mg/Ml Syringe) 0.5 mg IVPUSH Q3H PRN; Protocol PRN Reason: Pain, Moderate(Pain Scale 4-6) Last Admin: 06/08/25 15:31 Dose: 0.5 mg Documented By: NATALIE Comments: pt has been getting this medication this admission without rx Dextrose/Lactated Ringer's (D5lr) 1,000 mls @ 75 mls/hr IVCONT .[id number] [facility] Last Infusion: 06/08/25 11:16 Dose: 0 mls/hr Documented By: NATALIE Thiamine HCl 200 mg/ Sodium (Chloride) 102 mls @ 204 mls/hr IV DAILY [facility] Last Infusion: 06/08/25 11:24 Dose: Infused Documented By: NATALIE Lactated Ringer's (Lr) 1,000 mls @ 75 mls/hr IVCONT .[id number] [facility] Insulin Human Lispro (Insulin Lispro 100 Unit/Ml 3 Ml Vial) 0 unit SUBCUT Q6H [facility]; Protocol Last Admin: 06/08/25 12:18 Dose: 10 unit Documented By: NATALIE Lamotrigine (Lamotrigine 100 Mg Tablet) 200 mg PO BID [facility] Last Admin: 06/08/25 08:53 Dose: 200 mg Documented By: NATALIE Lorazepam (Lorazepam 1 Mg Tablet) 1 mg PO TID PRN PRN Reason: Anxiety Magnesium Hydroxide (Milk Of Magnesia 30 Ml Oral.Susp) 30 ml PO DAILY PRN PRN Reason: Constipation Magnesium Oxide (Magnesium Oxide 400 Mg Tablet) 400 mg PO DAILY [facility] Last Admin: 06/08/25 08:53 Dose: 400 mg Documented By: NATALIE Melatonin (Melatonin 3 Mg Tablet) 6 mg PO BEDTIME PRN PRN Reason: Insomnia Metoclopramide HCl (Metoclopramide Hcl 10 Mg/2 Ml Vial) 10 mg IVPUSH Q6H PRN PRN Reason: Nausea and Vomiting Last Admin: 06/08/25 12:18 Dose: 10 mg Documented By: NATALIE Metoprolol Tartrate (Metoprolol Tartrate 25 Mg Tablet) 25 mg PO BID [facility]; Protocol Last Admin: 06/08/25 08:53 Dose: 25 mg Documented By: NATALIE Ondansetron HCl (Ondansetron Hcl 4 Mg/2 Ml Vial) 4 mg IVPUSH Q8H PRN PRN Reason: Nausea and Vomiting Last Admin: 06/08/25 05:51 Dose: 4 mg Documented By: VELMA Pantoprazole Sodium (Pantoprazole Sodium 40 Mg/10 Ml Vial) 40 mg IVPUSH BID@0630,1630 [facility] Last Admin: 06/08/25 15:32 Dose: 40 mg Documented By: NATALIE Polyethylene Glycol (Polyethylene Glycol 3350 17 Gm Powd.Pack) 17 gm PO DAILY PRN PRN Reason: Constipation Risperidone (Risperidone 3 Mg Tablet) 3 mg PO BID [facility] Last Admin: 06/08/25 08:53 Dose: 3 mg Documented By: NATALIE Sodium Chloride (0.9 % Sodium Chloride Flush 3 Ml Syringe) 3 ml IVFLUSH QSHIFT [facility] Last Admin: 06/08/25 15:40 Dose: 3 ml Documented By: NATALIE Zolpidem Tartrate (Zolpidem Tartrate 5 Mg Tablet) 10 mg PO BEDTIME [facility] Last Admin: 06/07/25 22:05 Dose: 10 mg Documented By: VELMA Labs 06/08/25 06:41 06/08/25 06:41 Labs: Laboratory Results - last 24 hr 06/07/25 06/07/25 06/07/25 17:45 18:26 19:04 MCV MCH MCHC RDW Plt Count MPV Immature Gran % (Auto) Neut % (Auto) Lymph % (Auto) Kimble % (Auto) Eos % (Auto) Baso % (Auto) Lymph # (Auto) Kimble # (Auto) Eos # (Auto) Baso # (Auto) Abs Immat Gran (auto) Absolute Neuts (auto) Absolute Nucleated RBC Nucleated RBC % (auto) Anion Gap Estim Creat Clear Calc Estimated GFR POC Glucose 92 75 81 Random Glucose Calcium Total Bilirubin AST ALT Alkaline Phosphatase Total Protein Albumin 06/07/25 06/08/25 06/08/25 20:53 00:11 05:57 MCV MCH MCHC RDW Plt Count MPV Immature Gran % (Auto) Neut % (Auto) Lymph % (Auto) Kimble % (Auto) Eos % (Auto) Baso % (Auto) Lymph # (Auto) Kimble # (Auto) Eos # (Auto) Baso # (Auto) Abs Immat Gran (auto) Absolute Neuts (auto) Absolute Nucleated RBC Nucleated RBC % (auto) Anion Gap Estim Creat Clear Calc Estimated GFR POC Glucose 152 H 287 H 200 H Random Glucose Calcium Total Bilirubin AST ALT Alkaline Phosphatase Total Protein Albumin 06/08/25 06/08/25 06/08/25 06:41 11:02 13:05 MCV 80.1 MCH 25.9 L MCHC 32.3 RDW 16.1 H Plt Count 496 H MPV 8.7 L Immature Gran % (Auto) 0.3 Neut % (Auto) 56.1 Lymph % (Auto) 35.9 Kimble % (Auto) 6.5 Eos % (Auto) 0.7 Baso % (Auto) 0.5 Lymph # (Auto) 4.0 Kimble # (Auto) 0.7 Eos # (Auto) 0.1 Baso # (Auto) 0.1 Abs Immat Gran (auto) 0.03 Absolute Neuts (auto) 6.2 Absolute Nucleated RBC 0.000 Nucleated RBC % (auto) 0.0 Anion Gap 13 Estim Creat Clear Calc 81.4 Estimated GFR > 60 POC Glucose 378 H* 323 H Random Glucose 227 H Calcium 9.0 Total Bilirubin 0.5 AST 15 ALT 6 Alkaline Phosphatase 95 Total Protein 6.5 Albumin 3.8 06/08/25 13:44 MCV MCH MCHC RDW Plt Count MPV Immature Gran % (Auto) Neut % (Auto) Lymph % (Auto) Kimble % (Auto) Eos % (Auto) Baso % (Auto) Lymph # (Auto) Kimble # (Auto) Eos # (Auto) Baso # (Auto) Abs Immat Gran (auto) Absolute Neuts (auto) Absolute Nucleated RBC Nucleated RBC % (auto) Anion Gap Estim Creat Clear Calc Estimated GFR POC Glucose 283 H Random Glucose Calcium Total Bilirubin AST ALT Alkaline Phosphatase Total Protein Albumin Assessment and Plan (1) Bipolar 1 disorder: Status: Acute (2) History of non-ST elevation myocardial infarction (NSTEMI): Status: Acute (3) Screening for hyperlipidemia: Status: Acute (4) Diabetes type 1, controlled: Status: Acute (5) Type 1 diabetes: Status: Acute (6) Gastroparesis: Status: Acute (7) Nausea and vomiting: Status: Acute (8) Cyclical vomiting, intractable: Status: Acute (9) Intractable nausea and vomiting: Status: Acute (10) GERD (gastroesophageal reflux disease): Status: Acute (11) Acute kidney injury: Status: Acute (12) Hyperkalemia: Status: Acute (13) Osteoarthritis of lumbar spine with myelopathy: Status: Acute (14) Diabetic gastroparesis: Status: Acute (15) Insomnia: Status: Acute Plan 49-year-old female with past medical history DM Type I with insulin pump, gastroparesis secondary to diabetes, DKA, pyloric stenosis with history of G-Poem 2018 and will be having a revision in 2 weeks on June 18 at [facility], esophagitis, gastritis, chronic marijuana use, hypertension, herpes Zoster, UTI, non STEMI age 34, anxiety, bipolar 1 disorder, pancreatitis presents to the emergency department with 2 weeks of intermittent intractable nausea and vomiting, admitted for intractable nausea and vomiting in the setting of cyclical hyperemesis syndrome and gastroparesis. Intractable nausea/vomiting/ history of cyclical hyperemesis syndrome with marijuana use/ gastroparesis secondary to type 1 diabetes Continue IV fluids CT ABD negative for acute findings, no free air or fluid EKG pending: Monitor QTC Lipase normal, LA pending Continue Reglan, Dilaudid and Zofran Capsaicin cream PRN GI consulted - recommendations greatly appreciated Tachycardia Possible POTS syndrome EKG pending Telemetry ordered Likely secondary to hypovolemia, N/V, pain Patient did receive 1 dose of metoprolol in the ED Patient currently chest pain-free ECHO Orthostatic hypotension likely secondary to hypovolemia Patient's baseline blood pressure can run as low as 80/50 and she is normally on midodrine in the a.m. Patient has not been able to tolerate p.o. intake for the last 72 hours Patient has received 4 L of IV fluid and continues on a hourly rate Orthostatics to be checked Q shift x3 Esophagitis Protonix IV b.i.d. HX of G-POEM Patient has planned revision on 06/18/2025 with surgeon at [facility] Evaluated by inpatient gastroenterology S/p endoscopy IDDM Type 1 No evidence of DKA, hypoglycemia Patient currently has insulin pump in place but the devices off due to patient's NPO status and being in the emergency department Insulin sliding scale Patient understands that she can not use her continuous glucose monitoring while in the hospital for checking blood glucose levels Bipolar 1/ Anxiety Med rec pending, continue home meds once completed Patient denies any unusual anxiety, SI or HI concerns QUALITY [employer] - VTE: Heparin 5000 t.i.d. - CODE STATUS: Full code - DIET: Diabetic Total time managing care of this patient today: 45 minutes. Quality Stroke Does the patient have a stroke diagnosis?: No Reason for No Anti-thrombotic by Day Two: N/A - Med Ordered VTE Prior VTE?: No VTE Risk Level:: Medical - moderate - high VTE Device Contraindication: N/A - Device Ordered VTE Drug Contraindication: N/A - Med Ordered
[2025-06-08] MEDS: Lactated Ringers 1,000 ML 75 ML IVCONT (16:14)
[2025-06-08 17:43] LABS: Glucose, Whole Blood 248 mg/dL (60-115)
[2025-06-08 21:12] LABS: Glucose, Whole Blood 234 mg/dL (60-115)
[2025-06-09] VITALS (12 sets, daily range): BP systolic 72–164; BP diastolic 41–77; PULSE 74–104; RESP 14–18; TEMP 36.5–37.2; O2SAT 95–97
[2025-06-09] MEDS: Lactated Ringers 1,000 ML 75 ML IVCONT ×2 (04:23→17:02)
[2025-06-09 07:00] LABS: Glucose, Whole Blood 352 mg/dL (60-115)
[2025-06-09] MEDS: Thiamine HCL 200 MG in 0.9 % Sodium Chloride 100 ML 204 MG IV (08:04)
[2025-06-09] MEDS: 0.9 % Sodium Chloride Flush 3 ML SYRINGE IVFLUSH ×2 (08:05→15:43)
--- NOTE | 2025-06-09 08:59 | HO.POSTANES ---
Post Anesthesia Evaluation Post Anesthesia Evaluation Date of Service: 06/09/25 Vital Signs: Vital Signs Temp Pulse Resp BP Pulse Ox O2 Del Method 06/09/25 07:51 104 H 128/62 06/09/25 07:50 98 164/77 H 06/09/25 07:50 91 145/73 H 06/09/25 06:59 98.2 F 99 18 144/72 H 96 Room Air 06/09/25 03:27 97.7 F 97 18 104/55 L 95 Room Air 06/08/25 23:47 84 91/55 L 06/08/25 23:46 97.9 F 77 18 109/59 L 98 Room Air 06/08/25 23:46 78 90/55 L Anesthesia: Monitored Mental Status: Awake Pain Control: Satisfactory Nausea/Vomiting: None Hydration: Adequate Anesthesia-Related Issues: No Anes. Related Issues
--- NOTE | 2025-06-09 10:31 | PM.GIPN ---
Subjective Subjective Date of Service: 06/09/25 Interval History: Patient seen and evaluated at bedside. Mom present as well Reports improved appetite, was able to finish most of the grilled cheese sandwich for lunch, as well as some soup. Main complaint is now persistent abdominal pain, despite improvement in nausea and vomiting. Tolerating IV Reglan okay. Critical Care Time (minutes): 0 Physical Exam Exam: Exam: Middle-aged female No acute distress Nonicteric Abdomen soft, diffusely tender, nondistended Vital Signs: Vital Signs: Last Vital Signs Temp 98.2 F 06/09/25 06:59 Pulse 104 H 06/09/25 07:51 Resp 18 06/09/25 06:59 BP 128/62 06/09/25 07:51 Pulse Ox 96 06/09/25 06:59 O2 Del Method Room Air 06/09/25 06:59 BMI result Body Mass Index 25.7 Objective Data Labs 06/08/25 06:41 06/08/25 06:41 Labs: Laboratory Results - last 24 hr 06/08/25 06/08/25 06/08/25 11:02 13:05 13:44 POC Glucose 378 H* 323 H 283 H 06/08/25 06/08/25 06/09/25 17:37 21:08 06:53 POC Glucose 248 H 234 H 352 H* Procedures Date of Service Date of Service: 06/09/25 Progress Note: A&P Assessment and plan (1) Nausea and vomiting: Status: Acute (2) Abdominal pain: Status: Acute (3) Type 1 diabetes: Status: Acute (4) Diabetic gastroparesis: Status: Acute Plan Overall, with improvement in appetite and food intake. Patient does not feel comfortable getting discharged today, would like to be able to tolerate supper without any difficulty. She also reports persistent epigastric pain, and awaiting improvement. Plan: Small particle diet Pt reminded to AVOID high fat and fiber foods (had grilled cheese for lunch today) Tight glycemic control - BG this AM was again >300 Avoid NSAIDs and opiate Cont PPI Follow up in [facility] as scheduled Time Spent With Patient Time: Total time managing care of this patient today ____ minutes. Quality Stroke Does the patient have a stroke diagnosis?: No Reason for No Anti-thrombotic by Day Two: N/A - Med Ordered VTE Prior VTE?: No VTE Risk Level:: Medical - moderate - high VTE Device Contraindication: N/A - Device Ordered VTE Drug Contraindication: N/A - Med Ordered
[2025-06-09 10:52] LABS: Glucose, Whole Blood 255 mg/dL (60-115)
--- NOTE | 2025-06-09 15:41 | P.PNIM_ITS ---
Subjective Subjective Date of Service: 06/09/25 Interval History: No new complaints today The patient is visibly frustrated with her persistent nausea, vomiting, poor appetite The patient also suffering with persistent dizziness with standing and changing position Review of Systems Review of Systems: Yes all other systems are reviewed and are negative Physical Exam 2 Exam: Exam: General: A&O x3, oriented to time place person and situation, comfortable, no pain Cardiac: S1, S2 auscultated with no S3/4, no MRG. Well perfused. Respiratory: Normal breath sounds auscultated throughout all lung zones, without wheezing, rales. Normal rate. GI/ : Tenderness on palpation of the abdomen generalized, most notable at the epigastric and umbilical regions on light and deep palpation. No rebound or guarding. No hepatosplenomegaly MSK: Normal ambulation without pain at bony prominences or musculature Neurological: Normal neurological examination on overview, without obvious CN II-XII abnormalities. Vital Signs: Vital Signs: Last Vital Signs Temp 98.7 F 06/09/25 15:34 Pulse 74 06/09/25 15:34 Resp 14 06/09/25 15:34 BP 113/55 L 06/09/25 15:34 Pulse Ox 97 06/09/25 15:34 O2 Del Method Room Air 06/09/25 15:34 BMI result Body Mass Index 25.7 Objective Data Active Medications Acetaminophen (Acetaminophen 325 Mg Tablet) 650 mg PO Q6H PRN PRN Reason: Pain, Mild 1-3,fever,headache Albuterol/Ipratropium (Albuterol/Iprat 2.5/0.5mg 3 Ml Ampul.Neb) 3 ml INHALE Q4H PRN PRN Reason: Shortness of Breath/Wheezing Calcium Carbonate (Calcium Carbonate 750 Mg Tab.Chew) 750 mg PO Q4H PRN PRN Reason: Heartburn Capsaicin (Capsaicin 0.025% Cream 60 Gm Tube) 1 appl TOPICAL TID PRN; Protocol PRN Reason: Nausea Cyanocobalamin (Cyanocobalamin (Vitamin B-12) 100 Mcg Tablet) 100 mcg PO DAILY RAISA Last Admin: 06/09/25 08:08 Dose: 100 mcg Documented By: ABIGAIL Dextrose (Dextrose 50 % 25 Gm/50 Ml Syringe) 25 gm IVPUSH Q15M PRN; Protocol PRN Reason: per Hypoglycemia Standing Ord. Enoxaparin Sodium (Enoxaparin Sodium 40 Mg/0.4 Ml Syringe) 40 mg SUBCUT DAILY [facility] Last Admin: 06/09/25 08:05 Dose: 40 mg Documented By: ABIGAIL Folic Acid (Folic Acid 1 Mg Tablet) 1 mg PO DAILY [facility] Last Admin: 06/09/25 08:04 Dose: 1 mg Documented By: ABIGAIL Glucose (Glucose Gel 15 Gm Gel..Gram.) 15 gm PO Q15M PRN; Protocol PRN Reason: per Hypoglycemia Standing Ord. Hydromorphone HCl (Hydromorphone Hcl 1 Mg/Ml Syringe) 0.5 mg IVPUSH Q3H PRN; Protocol PRN Reason: Pain, Moderate(Pain Scale 4-6) Last Admin: 06/09/25 09:36 Dose: 0.5 mg Documented By: ABIGAIL Thiamine HCl 200 mg/ Sodium (Chloride) 102 mls @ 204 mls/hr IV DAILY [facility] Last Infusion: 06/09/25 09:33 Dose: Infused Documented By: ABIGAIL Lactated Ringer's (Lr) 1,000 mls @ 75 mls/hr IVCONT .[id number] [facility] Last Admin: 06/09/25 04:23 Dose: 75 mls/hr Documented By: VELMA Insulin Human Lispro (Insulin Lispro 100 Unit/Ml 3 Ml Vial) 0 unit SUBCUT QIDACHS [facility]; Protocol Last Admin: 06/09/25 12:01 Dose: 6 unit Documented By: ABIGAIL Lamotrigine (Lamotrigine 100 Mg Tablet) 200 mg PO BID [facility] Last Admin: 06/09/25 08:04 Dose: 200 mg Documented By: ABIGAIL Lorazepam (Lorazepam 1 Mg Tablet) 1 mg PO TID PRN PRN Reason: Anxiety Last Admin: 06/09/25 08:04 Dose: 1 mg Documented By: ABIGAIL Magnesium Hydroxide (Milk Of Magnesia 30 Ml Oral.Susp) 30 ml PO DAILY PRN PRN Reason: Constipation Magnesium Oxide (Magnesium Oxide 400 Mg Tablet) 400 mg PO DAILY [facility] Last Admin: 06/09/25 08:04 Dose: 400 mg Documented By: ABIGAIL Melatonin (Melatonin 3 Mg Tablet) 6 mg PO BEDTIME PRN PRN Reason: Insomnia Metoclopramide HCl (Metoclopramide Hcl 10 Mg/2 Ml Vial) 10 mg IVPUSH Q6H PRN PRN Reason: Nausea and Vomiting Last Admin: 06/09/25 12:01 Dose: 10 mg Documented By: ABIGAIL Metoprolol Tartrate (Metoprolol Tartrate 25 Mg Tablet) 25 mg PO BID [facility]; Protocol Last Admin: 06/09/25 08:04 Dose: 25 mg Documented By: ABIGAIL Ondansetron HCl (Ondansetron Hcl 4 Mg/2 Ml Vial) 4 mg IVPUSH Q8H PRN PRN Reason: Nausea and Vomiting Last Admin: 06/09/25 09:44 Dose: 4 mg Documented By: ABIGAIL Pantoprazole Sodium (Pantoprazole Sodium 40 Mg/10 Ml Vial) 40 mg IVPUSH BID@0630,1630 [facility] Last Admin: 06/09/25 05:38 Dose: 40 mg Documented By: VELMA Polyethylene Glycol (Polyethylene Glycol 3350 17 Gm Powd.Pack) 17 gm PO DAILY PRN PRN Reason: Constipation Risperidone (Risperidone 3 Mg Tablet) 3 mg PO BID [facility] Last Admin: 06/09/25 08:04 Dose: 3 mg Documented By: ABIGAIL Sodium Chloride (0.9 % Sodium Chloride Flush 3 Ml Syringe) 3 ml IVFLUSH QSHIFT [facility] Last Admin: 06/09/25 08:05 Dose: 3 ml Documented By: ABIGAIL Zolpidem Tartrate (Zolpidem Tartrate 5 Mg Tablet) 10 mg PO BEDTIME [facility] Last Admin: 06/08/25 21:21 Dose: 10 mg Documented By: VELMA Labs 06/08/25 06:41 06/08/25 06:41 Labs: Laboratory Results - last 24 hr 06/08/25 06/08/25 06/09/25 17:37 21:08 06:53 POC Glucose 248 H 234 H 352 H* 06/09/25 10:46 POC Glucose 255 H Assessment and Plan (1) Bipolar 1 disorder: Status: Acute (2) Orthostatic hypotension: Status: Acute (3) History of non-ST elevation myocardial infarction (NSTEMI): Status: Acute (4) Type 1 diabetes: Status: Acute (5) Gastroparesis: Status: Acute (6) Nausea and vomiting: Status: Acute (7) Cyclical vomiting, intractable: Status: Acute (8) GERD (gastroesophageal reflux disease): Status: Acute (9) Acute kidney injury: Status: Acute (10) Hyperkalemia: Status: Acute Plan 49-year-old female with past medical history DM Type I with insulin pump, gastroparesis secondary to diabetes, DKA, pyloric stenosis with history of G- Poem 2018 and will be having a revision in 2 weeks on June 18 at [facility], esophagitis, gastritis, chronic marijuana use, hypertension, herpes Zoster, UTI, non STEMI age 34, anxiety, bipolar 1 disorder, pancreatitis presents to the emergency department with 2 weeks of intermittent intractable nausea and vomiting, admitted for intractable nausea and vomiting in the setting of cyclical hyperemesis syndrome and gastroparesis. Intractable nausea/vomiting/ history of cyclical hyperemesis syndrome with marijuana use/ gastroparesis secondary to type 1 diabetes Continue IV fluids CT ABD negative for acute findings, no free air or fluid EKG pending: Monitor QTC Lipase normal, LA pending Continue Reglan, Dilaudid and Zofran Capsaicin cream PRN GI consulted - recommendations greatly appreciated Tachycardia Possible POTS syndrome EKG pending Telemetry ordered Likely secondary to hypovolemia, N/V, pain Patient did receive 1 dose of metoprolol in the ED Patient currently chest pain-free ECHO Orthostatic hypotension likely secondary to hypovolemia Patient's baseline blood pressure can run as low as 80/50 and she is normally on midodrine in the a.m. Patient has not been able to tolerate p.o. intake for the last 72 hours Patient has received 4 L of IV fluid and continues on a hourly rate Orthostatics to be checked Q shift x3 AMY Wraps placed - to be applied daily Esophagitis Protonix IV b.i.d. HX of G-POEM Patient has planned revision on 06/18/2025 with surgeon at [facility] Evaluated by inpatient gastroenterology S/p endoscopy by GI 06/08/25 revealing gastritis IDDM Type 1 No evidence of DKA, hypoglycemia Patient currently has insulin pump in place but the devices off due to patient's NPO status and being in the emergency department Insulin sliding scale Patient understands that she can not use her continuous glucose monitoring while in the hospital for checking blood glucose levels Bipolar 1/ Anxiety Med rec pending, continue home meds once completed Patient denies any unusual anxiety, SI or HI concerns [employer] - VTE: Heparin 5000 t.i.d. - CODE STATUS: Full code - DIET: Diabetic Total time managing care of this patient today: 45 minutes. Quality Stroke Does the patient have a stroke diagnosis?: No Reason for No Anti-thrombotic by Day Two: N/A - Med Ordered VTE Prior VTE?: No VTE Risk Level:: Medical - moderate - high VTE Device Contraindication: N/A - Device Ordered VTE Drug Contraindication: N/A - Med Ordered
[2025-06-09 16:21] LABS: Glucose, Whole Blood 75 mg/dL (60-115)
[2025-06-09 21:22] LABS: Glucose, Whole Blood 320 mg/dL (60-115)
[2025-06-10] VITALS (11 sets, daily range): BP systolic 82–151; BP diastolic 43–67; PULSE 69–96; RESP 18–20; TEMP 36.7–36.8; O2SAT 96–99
[2025-06-10] MEDS: Lactated Ringers 1,000 ML 75 ML IVCONT (06:13)
[2025-06-10 07:43] LABS: Glucose, Whole Blood 259 mg/dL (60-115)
[2025-06-10] MEDS: Thiamine HCL 200 MG in 0.9 % Sodium Chloride 100 ML 204 MG IV (07:58)
[2025-06-10] MEDS: 0.9 % Sodium Chloride Flush 3 ML SYRINGE IVFLUSH ×3 (08:00→20:59)
[2025-06-10 09:01] LABS: Anion Gap 19 (12-20); Blood Urea Nitrogen 14 mg/dL (9-16); Calcium 8.2 mg/dL (8.4-10.2); Carbon Dioxide 24 mmol/L (22-29); Chloride 94 mmol/L (96-108); Creatinine Clr Calc Pharmacy 75.1; Estimated Glomerular Filt Rate > 60; Magnesium 1.6 mg/dL (1.6-2.6); Potassium 3.4 mmol/L (3.3-5.1); Sodium 134 mmol/L (135-145)
[2025-06-10 11:08] LABS: Glucose, Whole Blood 191 mg/dL (60-115)
--- NOTE | 2025-06-10 15:47 | HO.PM.IMPN ---
Subjective Subjective Date of Service: 06/10/25 Interval History: Persistent nausea and vomiting Persistent abdominal pain. Discussed in depth other conservative measures that can be taken to help reduce nausea and vomiting symptoms, including use of peppermint/spearmint, as well as use of alcohol pad. Further discussion regarding other medications that can be used to help alleviate nausea and vomiting. Review of Systems Review of Systems: Yes all other systems are reviewed and are negative Physical Exam Exam: Exam: General: A&O x3, oriented to time place person and situation, comfortable, no pain Cardiac: S1, S2 auscultated with no S3/4, no MRG. Well perfused. Respiratory: Normal breath sounds auscultated throughout all lung zones, without wheezing, rales. Normal rate. GI/ : Tenderness on palpation of the abdomen generalized, most notable at the epigastric and umbilical regions on light and deep palpation. No rebound or guarding. No hepatosplenomegaly MSK: Normal ambulation without pain at bony prominences or musculature Neurological: Normal neurological examination on overview, without obvious CN II-XII abnormalities. +ve orthostatics: With Demian wraps (better) than without Vital Signs: Vital Signs: Last Vital Signs Temp 98.0 F 06/10/25 10:54 Pulse 76 06/10/25 10:54 Resp 20 06/10/25 10:54 BP 124/59 L 06/10/25 10:54 Pulse Ox 97 06/10/25 10:54 O2 Del Method Room Air 06/10/25 10:54 BMI result Body Mass Index 25.7 Objective Data Active Medications Acetaminophen (Acetaminophen 325 Mg Tablet) 650 mg PO Q6H PRN PRN Reason: Pain, Mild 1-3,fever,headache Albuterol/Ipratropium (Albuterol/Iprat 2.5/0.5mg 3 Ml Ampul.Neb) 3 ml INHALE Q4H PRN PRN Reason: Shortness of Breath/Wheezing Calcium Carbonate (Calcium Carbonate 750 Mg Tab.Chew) 750 mg PO Q4H PRN PRN Reason: Heartburn Capsaicin (Capsaicin 0.025% Cream 60 Gm Tube) 1 appl TOPICAL TID PRN; Protocol PRN Reason: Nausea Cyanocobalamin (Cyanocobalamin (Vitamin B-12) 100 Mcg Tablet) 100 mcg PO DAILY [facility] Last Admin: 06/10/25 07:59 Dose: 100 mcg Documented By: ABIGAIL Dextrose (Dextrose 50 % 25 Gm/50 Ml Syringe) 25 gm IVPUSH Q15M PRN; Protocol PRN Reason: per Hypoglycemia Standing Ord. Enoxaparin Sodium (Enoxaparin Sodium 40 Mg/0.4 Ml Syringe) 40 mg SUBCUT DAILY [facility] Last Admin: 06/10/25 07:59 Dose: 40 mg Documented By: ABIGAIL Folic Acid (Folic Acid 1 Mg Tablet) 1 mg PO DAILY [facility] Last Admin: 06/10/25 07:59 Dose: 1 mg Documented By: ABIGAIL Glucose (Glucose Gel 15 Gm Gel..Gram.) 15 gm PO Q15M PRN; Protocol PRN Reason: per Hypoglycemia Standing Ord. Hydromorphone HCl (Hydromorphone Hcl 1 Mg/Ml Syringe) 0.5 mg IVPUSH Q3H PRN; Protocol PRN Reason: Pain, Moderate(Pain Scale 4-6) Last Admin: 06/10/25 11:38 Dose: 0.5 mg Documented By: VLADIMIR Thiamine HCl 200 mg/ Sodium (Chloride) 102 mls @ 204 mls/hr IV DAILY [facility] Last Infusion: 06/10/25 09:22 Dose: Infused Documented By: ABIGAIL Lactated Ringer's (Lr) 1,000 mls @ 75 mls/hr IVCONT .[id number] [facility] Last Admin: 06/10/25 06:13 Dose: 75 mls/hr Documented By: VELMA Insulin Human Lispro (Insulin Lispro 100 Unit/Ml 3 Ml Vial) 0 unit SUBCUT QIDACHS [facility]; Protocol Last Admin: 06/10/25 11:55 Dose: 2 unit Documented By: ABIGAIL Lamotrigine (Lamotrigine 100 Mg Tablet) 200 mg PO BID [facility] Last Admin: 06/10/25 07:59 Dose: 200 mg Documented By: ABIGAIL Lorazepam (Lorazepam 1 Mg Tablet) 1 mg PO TID PRN PRN Reason: Anxiety Last Admin: 06/10/25 07:59 Dose: 1 mg Documented By: ABIGAIL Magnesium Hydroxide (Milk Of Magnesia 30 Ml Oral.Susp) 30 ml PO DAILY PRN PRN Reason: Constipation Magnesium Oxide (Magnesium Oxide 400 Mg Tablet) 400 mg PO DAILY [facility] Last Admin: 06/10/25 07:59 Dose: 400 mg Documented By: ABIGAIL Melatonin (Melatonin 3 Mg Tablet) 6 mg PO BEDTIME PRN PRN Reason: Insomnia Metoclopramide HCl (Metoclopramide Hcl 10 Mg/2 Ml Vial) 10 mg IVPUSH Q6H PRN PRN Reason: Nausea and Vomiting Last Admin: 06/10/25 07:59 Dose: 10 mg Documented By: ABIGAIL Metoprolol Tartrate (Metoprolol Tartrate 25 Mg Tablet) 25 mg PO BID [facility]; Protocol Last Admin: 06/10/25 07:59 Dose: 25 mg Documented By: ABIGAIL Olanzapine (Olanzapine 2.5 Mg Tablet) 2.5 mg PO BID [facility] Last Admin: 06/10/25 12:47 Dose: 2.5 mg Documented By: ABIGAIL Ondansetron HCl (Ondansetron Hcl 4 Mg/2 Ml Vial) 4 mg IVPUSH Q8H PRN PRN Reason: Nausea and Vomiting Last Admin: 06/10/25 04:36 Dose: 4 mg Documented By: VELMA Polyethylene Glycol (Polyethylene Glycol 3350 17 Gm Powd.Pack) 17 gm PO DAILY PRN PRN Reason: Constipation Risperidone (Risperidone 3 Mg Tablet) 3 mg PO BID [facility] Last Admin: 06/10/25 07:59 Dose: 3 mg Documented By: ABIGAIL Sodium Chloride (0.9 % Sodium Chloride Flush 3 Ml Syringe) 3 ml IVFLUSH QSHIFT [facility] Last Admin: 06/10/25 08:00 Dose: 3 ml Documented By: ABIGAIL Zolpidem Tartrate (Zolpidem Tartrate 5 Mg Tablet) 10 mg PO BEDTIME [facility] Last Admin: 06/09/25 20:34 Dose: 10 mg Documented By: VELMA Labs 06/08/25 06:41 06/10/25 08:23 Labs: Laboratory Results - last 24 hr 06/09/25 06/09/25 06/10/25 16:12 21:03 07:19 Anion Gap Estim Creat Clear Calc Estimated GFR POC Glucose 75 320 H 259 H Random Glucose Calcium Magnesium 06/10/25 06/10/25 08:23 10:59 Anion Gap 19 Estim Creat Clear Calc 75.1 Estimated GFR > 60 POC Glucose 191 H Random Glucose 332 H Calcium 8.2 L D Magnesium 1.6 Assessment and Plan (1) Bipolar 1 disorder: Status: Acute (2) Orthostatic hypotension: Status: Acute (3) History of non-ST elevation myocardial infarction (NSTEMI): Status: Acute (4) Diabetes type 1, controlled: Status: Acute (5) Gastroparesis: Status: Acute (6) Nausea and vomiting: Status: Acute (7) Cyclical vomiting, intractable: Status: Acute (8) Intractable nausea and vomiting: Status: Acute (9) GERD (gastroesophageal reflux disease): Status: Acute (10) Abdominal pain: Status: Acute (11) Acute kidney injury: Status: Acute (12) Diabetic gastroparesis: Status: Acute Plan 49-year-old female with past medical history DM Type I with insulin pump, gastroparesis secondary to diabetes, DKA, pyloric stenosis with history of G-Poem 2018 and will be having a revision in 2 weeks on June 18 at [facility], esophagitis, gastritis, chronic marijuana use, hypertension, herpes Zoster, UTI, non STEMI age 34, anxiety, bipolar 1 disorder, pancreatitis presents to the emergency department with 2 weeks of intermittent intractable nausea and vomiting, admitted for intractable nausea and vomiting in the setting of cyclical hyperemesis syndrome and gastroparesis. Intractable nausea/vomiting/ history of cyclical hyperemesis syndrome with marijuana use/ gastroparesis secondary to type 1 diabetes Continue IV fluids CT ABD negative for acute findings, no free air or fluid EKG pending: Monitor QTC Lipase normal, LA pending Continue Reglan, Dilaudid and Zofran Addition of olanzapine 2.5 mg b.i.d. p.r.n. for nausea and vomiting has been successful-patient endorses significant relief Capsaicin cream PRN Further recommendations for conservative measures: Peppermint gum/tea...etc // heat/ice packs// alcohol wipe GI consulted - recommendations greatly appreciated Tachycardia Possible POTS syndrome EKG pending Telemetry ordered Likely secondary to hypovolemia, N/V, pain Patient did receive 1 dose of metoprolol in the ED Patient currently chest pain-free ECHO Orthostatic hypotension likely secondary to hypovolemia Patient's baseline blood pressure can run as low as 80/50 and she is normally on midodrine in the a.m. Patient has not been able to tolerate p.o. intake for the last 72 hours Patient has received 4 L of IV fluid and continues on a hourly rate Orthostatics to be checked Q shift x3 DEMIAN Wraps placed - to be applied daily Esophagitis Protonix IV b.i.d. HX of G-POEM Patient has planned revision on 06/18/2025 with surgeon at [facility] Evaluated by inpatient gastroenterology S/p endoscopy by GI 06/08/25 revealing gastritis IDDM Type 1 No evidence of DKA, hypoglycemia Patient currently has insulin pump in place but the devices off due to patient's NPO status and being in the emergency department Insulin sliding scale Patient understands that she can not use her continuous glucose monitoring while in the hospital for checking blood glucose levels Bipolar 1/ Anxiety Med rec pending, continue home meds once completed Patient denies any unusual anxiety, SI or HI concerns QUALITY METRICS - VTE: Heparin 5000 t.i.d. - CODE STATUS: Full code - DIET: Diabetic Total time managing care of this patient today: 45 minutes. Quality Stroke Does the patient have a stroke diagnosis?: No Reason for No Anti-thrombotic by Day Two: N/A - Med Ordered VTE Prior VTE?: No VTE Risk Level:: Medical - moderate - high VTE Device Contraindication: N/A - Device Ordered VTE Drug Contraindication: N/A - Med Ordered
[2025-06-10 16:12] LABS: Glucose, Whole Blood 179 mg/dL (60-115)
[2025-06-10 20:10] LABS: Glucose, Whole Blood 216 mg/dL (60-115)
[2025-06-11] VITALS (13 sets, daily range): BP systolic 68–136; BP diastolic 38–88; PULSE 71–129; RESP 18; TEMP 36.4–37; O2SAT 93–97
[2025-06-11 07:47] LABS: Glucose, Whole Blood 411 mg/dL (60-115)
[2025-06-11] MEDS: Thiamine HCL 200 MG in 0.9 % Sodium Chloride 100 ML 204 MG IV (08:37)
[2025-06-11] MEDS: 0.9 % Sodium Chloride Flush 3 ML SYRINGE IVFLUSH ×2 (08:38→16:33)
[2025-06-11 11:52] LABS: Glucose, Whole Blood 263 mg/dL (60-115)
--- NOTE | 2025-06-11 14:01 | MHC.CM.PN ---
IMM UPDATED PT NOT READY MEDICALLY DC PLAN [facility]
--- NOTE | 2025-06-11 16:20 | P.PNIM_ITS ---
Subjective Subjective Date of Service: 06/11/25 Interval History: Remains nauseous, with a poor p.o. intake. Olanzapine was trialed with minimal success Patient tolerating peppermint with variable success Unable to intake more than 25% of her meals. We will consult dietitian Physical Exam 2 Exam: Exam: General: A&O x3, oriented to time place person and situation, comfortable, no pain Cardiac: S1, S2 auscultated with no S3/4, no MRG. Well perfused. Respiratory: Normal breath sounds auscultated throughout all lung zones, without wheezing, rales. Normal rate. GI/ : Tenderness on palpation of the abdomen generalized, most notable at the epigastric and umbilical regions on light and deep palpation. No rebound or guarding. No hepatosplenomegaly MSK: Normal ambulation without pain at bony prominences or musculature Neurological: Normal neurological examination on overview, without obvious CN II-XII abnormalities. +ve orthostatics: With Demian wraps (mika r) than without Vital Signs: Vital Signs: Last Vital Signs Temp 97.7 F 06/11/25 15:37 Pulse 85 06/11/25 15:39 Resp 18 06/11/25 15:39 BP 73/39 L 06/11/25 15:39 Pulse Ox 97 06/11/25 15:39 O2 Del Method Room Air 06/11/25 15:39 BMI result Body Mass Index 25.7 Objective Data Active Medications Acetaminophen (Acetaminophen 325 Mg Tablet) 650 mg PO Q6H PRN PRN Reason: Pain, Mild 1-3,fever,headache Albuterol/Ipratropium (Albuterol/Iprat 2.5/0.5mg 3 Ml Ampul.Neb) 3 ml INHALE Q4H PRN PRN Reason: Shortness of Breath/Wheezing Calcium Carbonate (Calcium Carbonate 750 Mg Tab.Chew) 750 mg PO Q4H PRN PRN Reason: Heartburn Capsaicin (Capsaicin 0.025% Cream 60 Gm Tube) 1 appl TOPICAL TID PRN; Protocol PRN Reason: Nausea Cyanocobalamin (Cyanocobalamin (Vitamin B-12) 100 Mcg Tablet) 100 mcg PO DAILY [facility] Last Admin: 06/11/25 08:38 Dose: 100 mcg Documented By: CATHERINE Dextrose (Dextrose 50 % 25 Gm/50 Ml Syringe) 25 gm IVPUSH Q15M PRN; Protocol PRN Reason: per Hypoglycemia Standing Ord. Enoxaparin Sodium (Enoxaparin Sodium 40 Mg/0.4 Ml Syringe) 40 mg SUBCUT DAILY [facility] Last Admin: 06/11/25 08:37 Dose: 40 mg Documented By: CATHERINE Folic Acid (Folic Acid 1 Mg Tablet) 1 mg PO DAILY [facility] Last Admin: 06/11/25 08:38 Dose: 1 mg Documented By: CATHERINE Glucose (Glucose Gel 15 Gm Gel..Gram.) 15 gm PO Q15M PRN; Protocol PRN Reason: per Hypoglycemia Standing Ord. Hydromorphone HCl (Hydromorphone Hcl 1 Mg/Ml Syringe) 0.5 mg IVPUSH Q3H PRN; Protocol PRN Reason: Pain, Moderate(Pain Scale 4-6) Last Admin: 06/11/25 12:50 Dose: 0.5 mg Documented By: CATHERINE Thiamine HCl 200 mg/ Sodium (Chloride) 102 mls @ 204 mls/hr IV DAILY [facility] Last Infusion: 06/11/25 09:32 Dose: Infused Documented By: CATHERINE Lactated Ringer's (Lr) 500 mls @ 100 mls/hr IVCONT .Q5H [facility] Stop: 06/11/25 21:29 Insulin Human Lispro (Insulin Lispro 100 Unit/Ml 3 Ml Vial) 0 unit SUBCUT QIDACHS [facility]; Protocol Last Admin: 06/11/25 12:48 Dose: 6 unit Documented By: CATHERINE Lamotrigine (Lamotrigine 100 Mg Tablet) 200 mg PO BID [facility] Last Admin: 06/11/25 08:38 Dose: 200 mg Documented By: CATHERINE Lorazepam (Lorazepam 1 Mg Tablet) 1 mg PO TID PRN PRN Reason: Anxiety Last Admin: 06/10/25 17:33 Dose: 1 mg Documented By: ABIGAIL Magnesium Hydroxide (Milk Of Magnesia 30 Ml Oral.Susp) 30 ml PO DAILY PRN PRN Reason: Constipation Magnesium Oxide (Magnesium Oxide 400 Mg Tablet) 400 mg PO DAILY [facility] Last Admin: 06/11/25 08:38 Dose: 400 mg Documented By: CATHERINE Melatonin (Melatonin 3 Mg Tablet) 6 mg PO BEDTIME PRN PRN Reason: Insomnia Metoclopramide HCl (Metoclopramide Hcl 10 Mg/2 Ml Vial) 10 mg IVPUSH Q6H PRN PRN Reason: Nausea and Vomiting Last Admin: 06/11/25 12:48 Dose: 10 mg Documented By: CATHERINE Metoprolol Tartrate (Metoprolol Tartrate 25 Mg Tablet) 25 mg PO BID [facility]; Protocol Last Admin: 06/11/25 08:38 Dose: 25 mg Documented By: CATHERINE Olanzapine (Olanzapine 2.5 Mg Tablet) 2.5 mg PO BID [facility] Last Admin: 06/11/25 08:38 Dose: 2.5 mg Documented By: CATHERINE Ondansetron HCl (Ondansetron Hcl 4 Mg/2 Ml Vial) 4 mg IVPUSH Q8H PRN PRN Reason: Nausea and Vomiting Last Admin: 06/10/25 04:36 Dose: 4 mg Documented By: VELMA Polyethylene Glycol (Polyethylene Glycol 3350 17 Gm Powd.Pack) 17 gm PO DAILY PRN PRN Reason: Constipation Risperidone (Risperidone 3 Mg Tablet) 3 mg PO BID [facility] Last Admin: 06/11/25 08:38 Dose: 3 mg Documented By: CATHERINE Sodium Chloride (0.9 % Sodium Chloride Flush 3 Ml Syringe) 3 ml IVFLUSH QSHIFT [facility] Last Admin: 06/11/25 08:38 Dose: 3 ml Documented By: CATHERINE Zolpidem Tartrate (Zolpidem Tartrate 5 Mg Tablet) 10 mg PO BEDTIME [facility] Last Admin: 06/10/25 20:48 Dose: 10 mg Documented By: SHIRLEY Labs 06/08/25 06:41 06/10/25 08:23 Labs: Laboratory Results - last 24 hr 06/10/25 06/11/25 06/11/25 20:07 07:42 11:43 POC Glucose 216 H 411 H* 263 H Assessment and Plan (1) Bipolar 1 disorder: Status: Acute (2) Orthostatic hypotension: Status: Acute (3) History of non-ST elevation myocardial infarction (NSTEMI): Status: Acute (4) Diabetes type 1, controlled: Status: Acute (5) Gastroparesis: Status: Acute (6) Nausea and vomiting: Status: Acute (7) Cyclical vomiting, intractable: Status: Acute (8) Intractable nausea and vomiting: Status: Acute (9) GERD (gastroesophageal reflux disease): Status: Acute (10) Acute kidney injury: Status: Acute (11) Hyperkalemia: Status: Acute (12) UTI (urinary tract infection): Status: Acute (13) Osteoarthritis of lumbar spine with myelopathy: Status: Acute Plan 49-year-old female with past medical history DM Type I with insulin pump, gastroparesis secondary to diabetes, DKA, pyloric stenosis with history of G- Poem 2018 and will be having a revision in 2 weeks on June 18 at [facility], esophagitis, gastritis, chronic marijuana use, hypertension, herpes Zoster, UTI, non STEMI age 34, anxiety, bipolar 1 disorder, pancreatitis presents to the emergency department with 2 weeks of intermittent intractable nausea and vomiting, admitted for intractable nausea and vomiting in the setting of cyclical hyperemesis syndrome and gastroparesis. Intractable nausea/vomiting/ history of cyclical hyperemesis syndrome with marijuana use/ gastroparesis secondary to type 1 diabetes Continue IV fluids CT ABD negative for acute findings, no free air or fluid EKG pending: Monitor QTC Lipase normal, LA pending Continue Reglan, Dilaudid and Zofran Addition of olanzapine 2.5 mg t.i.d. p.r.n. for nausea and vomiting has been somwhat successful-patient endorses some relief Capsaicin cream PRN Further recommendations for conservative measures: Peppermint gum/tea...etc // heat/ice packs// alcohol wipe GI consulted - recommendations greatly appreciated Tachycardia Possible POTS syndrome EKG pending Telemetry ordered Likely secondary to hypovolemia, N/V, pain Patient did receive 1 dose of metoprolol in the ED Patient currently chest pain-free ECHO Orthostatic hypotension likely secondary to hypovolemia Patient's baseline blood pressure can run as low as 80/50 and she is normally on midodrine in the a.m. Patient has not been able to tolerate p.o. intake for the last 72 hours Patient has received 4 L of IV fluid and continues on a hourly rate Orthostatics to be checked Q shift x3 DEMIAN Wraps placed - to be applied daily Esophagitis Protonix IV b.i.d. HX of G-POEM Patient has planned revision on 06/18/2025 with surgeon at [facility] Evaluated by inpatient gastroenterology S/p endoscopy by GI 06/08/25 revealing gastritis IDDM Type 1 No evidence of DKA, hypoglycemia Patient currently has insulin pump in place but the devices off due to patient's NPO status and being in the emergency department Insulin sliding scale Patient understands that she can not use her continuous glucose monitoring while in the hospital for checking blood glucose levels Bipolar 1/ Anxiety Med rec pending, continue home meds once completed Patient denies any unusual anxiety, SI or HI concerns QU[employer] - VTE: Heparin 5000 t.i.d. - CODE STATUS: Full code - DIET: Diabetic Total time managing care of this patient today: 45 minutes. Quality Stroke Does the patient have a stroke diagnosis?: No Reason for No Anti-thrombotic by Day Two: N/A - Med Ordered VTE Prior VTE?: No VTE Risk Level:: Medical - moderate - high VTE Device Contraindication: N/A - Device Ordered VTE Drug Contraindication: N/A - Med Ordered
[2025-06-11 16:23] LABS: Glucose, Whole Blood 63 mg/dL (60-115)
[2025-06-11] MEDS: DEXTROSE 5% IVCONT (16:33)
[2025-06-11] MEDS: LACTATED RING IVCONT (16:33)
[2025-06-11 17:37] LABS: Glucose, Whole Blood 208 mg/dL (60-115)
[2025-06-11 20:26] LABS: Glucose, Whole Blood 387 mg/dL (60-115)
[2025-06-11 23:06] LABS: Glucose, Whole Blood 259 mg/dL (60-115)
[2025-06-12] VITALS (10 sets, daily range): BP systolic 88–137; BP diastolic 44–70; PULSE 72–107; RESP 14–18; TEMP 36.4–37.2; O2SAT 91–98
[2025-06-12] MEDS: 0.9 % Sodium Chloride Flush 3 ML SYRINGE IVFLUSH ×2 (00:15→08:04)
[2025-06-12 07:43] LABS: Glucose, Whole Blood 404 mg/dL (60-115)
[2025-06-12] MEDS: Thiamine HCL 200 MG in 0.9 % Sodium Chloride 100 ML 204 MG IV (08:05)
[2025-06-12 09:20] LABS: Anion Gap 25 (12-20); Blood Urea Nitrogen 14 mg/dL (9-16); Calcium 8.9 mg/dL (8.4-10.2); Carbon Dioxide 18 mmol/L (22-29); Chloride 95 mmol/L (96-108); Creatinine Clr Calc Pharmacy 65.1; Estimated Glomerular Filt Rate 55; Potassium 3.3 mmol/L (3.3-5.1); Sodium 135 mmol/L (135-145)
[2025-06-12 10:49] LABS: Glucose, Whole Blood 299 mg/dL (60-115)
--- NOTE | 2025-06-12 15:00 | HO.PM.IMPN ---
Subjective Subjective Date of Service: 06/12/25 Interval History: Complaints of significant abdominal pain, with vomiting this morning. Reports medications are not assisting in relieving her nausea and vomiting, or the abdominal pain Review of Systems Review of Systems: Yes all other systems are reviewed and are negative Physical Exam Exam: Exam: General: A&O x3, oriented to time place person and situation, comfortable, no pain Cardiac: S1, S2 auscultated with no S3/4, no MRG. Well perfused. Respiratory: Normal breath sounds auscultated throughout all lung zones, without wheezing, rales. Normal rate. GI/ : Tenderness on palpation of the abdomen generalized, most notable at the epigastric and umbilical regions on light and deep palpation. No rebound or guarding. No hepatosplenomegaly MSK: Normal ambulation without pain at bony prominences or musculature Neurological: Normal neurological examination on overview, without obvious CN II-XII abnormalities. +ve orthostatics: With Demian wraps (better) than without Vital Signs: Vital Signs: Last Vital Signs Temp 98.1 F 06/12/25 10:42 Pulse 81 06/12/25 10:42 Resp 16 06/12/25 10:42 BP 97/54 L 06/12/25 10:42 Pulse Ox 96 06/12/25 10:42 O2 Del Method Room Air 06/12/25 10:42 BMI result Body Mass Index 25.7 Objective Data Active Medications Acetaminophen (Acetaminophen 325 Mg Tablet) 650 mg PO Q6H PRN PRN Reason: Pain, Mild 1-3,fever,headache Albuterol/Ipratropium (Albuterol/Iprat 2.5/0.5mg 3 Ml Ampul.Neb) 3 ml INHALE Q4H PRN PRN Reason: Shortness of Breath/Wheezing Calcium Carbonate (Calcium Carbonate 750 Mg Tab.Chew) 750 mg PO Q4H PRN PRN Reason: Heartburn Capsaicin (Capsaicin 0.025% Cream 60 Gm Tube) 1 appl TOPICAL TID PRN; Protocol PRN Reason: Nausea Cyanocobalamin (Cyanocobalamin (Vitamin B-12) 100 Mcg Tablet) 100 mcg PO DAILY RAISA Last Admin: 06/12/25 08:03 Dose: 100 mcg Documented By: SANDRO Dextrose (Dextrose 50 % 25 Gm/50 Ml Syringe) 25 gm IVPUSH Q15M PRN; Protocol PRN Reason: per Hypoglycemia Standing Ord. Enoxaparin Sodium (Enoxaparin Sodium 40 Mg/0.4 Ml Syringe) 40 mg SUBCUT DAILY [facility] Last Admin: 06/12/25 08:05 Dose: 40 mg Documented By: SANDRO Folic Acid (Folic Acid 1 Mg Tablet) 1 mg PO DAILY [facility] Last Admin: 06/12/25 08:03 Dose: 1 mg Documented By: SANDRO Glucose (Glucose Gel 15 Gm Gel..Gram.) 15 gm PO Q15M PRN; Protocol PRN Reason: per Hypoglycemia Standing Ord. Hydromorphone HCl (Hydromorphone Hcl 1 Mg/Ml Syringe) 0.5 mg IVPUSH Q3H PRN; Protocol PRN Reason: Pain, Moderate(Pain Scale 4-6) Last Admin: 06/12/25 13:32 Dose: 0.5 mg Documented By: SANDRO Thiamine HCl 200 mg/ Sodium (Chloride) 102 mls @ 204 mls/hr IV DAILY [facility] Last Infusion: 06/12/25 09:05 Dose: Infused Documented By: SANDRO Insulin Human Lispro (Insulin Lispro 100 Unit/Ml 3 Ml Vial) 0 unit SUBCUT QIDACHS [facility]; Protocol Last Admin: 06/12/25 11:43 Dose: 6 unit Documented By: SANDRO Lamotrigine (Lamotrigine 100 Mg Tablet) 200 mg PO BID [facility] Last Admin: 06/12/25 08:03 Dose: 200 mg Documented By: SANDRO Lorazepam (Lorazepam 1 Mg Tablet) 1 mg PO TID PRN PRN Reason: Anxiety Last Admin: 06/10/25 17:33 Dose: 1 mg Documented By: ABIGAIL Magnesium Hydroxide (Milk Of Magnesia 30 Ml Oral.Susp) 30 ml PO DAILY PRN PRN Reason: Constipation Magnesium Oxide (Magnesium Oxide 400 Mg Tablet) 400 mg PO DAILY [facility] Last Admin: 06/12/25 08:03 Dose: 400 mg Documented By: SANDRO Melatonin (Melatonin 3 Mg Tablet) 6 mg PO BEDTIME PRN PRN Reason: Insomnia Metoclopramide HCl (Metoclopramide Hcl 10 Mg/2 Ml Vial) 10 mg IVPUSH Q6H PRN PRN Reason: Nausea and Vomiting Last Admin: 06/12/25 08:59 Dose: 10 mg Documented By: SANDRO Metoprolol Tartrate (Metoprolol Tartrate 25 Mg Tablet) 25 mg PO BID [facility]; Protocol Last Admin: 06/12/25 08:03 Dose: 25 mg Documented By: SANDRO Olanzapine (Olanzapine 2.5 Mg Tablet) 2.5 mg PO TID [facility] Last Admin: 06/12/25 08:03 Dose: 2.5 mg Documented By: SANDRO Ondansetron HCl (Ondansetron Hcl 4 Mg/2 Ml Vial) 4 mg IVPUSH Q8H PRN PRN Reason: Nausea and Vomiting Last Admin: 06/12/25 13:35 Dose: 4 mg Documented By: SANDRO Pantoprazole Sodium (Pantoprazole Sodium 40 Mg/10 Ml Vial) 40 mg IVPUSH DAILY@0630 [facility] Last Admin: 06/12/25 05:21 Dose: 40 mg Documented By: GREG Polyethylene Glycol (Polyethylene Glycol 3350 17 Gm Powd.Pack) 17 gm PO DAILY PRN PRN Reason: Constipation Risperidone (Risperidone 3 Mg Tablet) 3 mg PO BID [facility] Last Admin: 06/12/25 08:03 Dose: 3 mg Documented By: SANDRO Sodium Chloride (0.9 % Sodium Chloride Flush 3 Ml Syringe) 3 ml IVFLUSH QSHIFT [facility] Last Admin: 06/12/25 08:04 Dose: 3 ml Documented By: SANDRO Zolpidem Tartrate (Zolpidem Tartrate 5 Mg Tablet) 10 mg PO BEDTIME [facility] Last Admin: 06/11/25 20:37 Dose: 10 mg Documented By: GREG Labs 06/08/25 06:41 06/12/25 08:41 Labs: Laboratory Results - last 24 hr 06/11/25 06/11/25 06/11/25 16:19 17:32 20:22 Hold Purple Top Anion Gap Estim Creat Clear Calc Estimated GFR POC Glucose 63 208 H 387 H* Random Glucose Calcium Beta-Hydroxybutyrate 06/11/25 06/12/25 06/12/25 23:01 07:37 08:41 Hold Purple Top SEE NOTE Anion Gap 25 H Estim Creat Clear Calc 65.1 Estimated GFR 55 POC Glucose 259 H 404 H* Random Glucose 455 H* Calcium 8.9 D Beta-Hydroxybutyrate 6.51 H 06/12/25 10:45 Hold Purple Top Anion Gap Estim Creat Clear Calc Estimated GFR POC Glucose 299 H Random Glucose Calcium Beta-Hydroxybutyrate Assessment and Plan (1) Bipolar 1 disorder: Status: Acute (2) Orthostatic hypotension: Status: Acute (3) History of non-ST elevation myocardial infarction (NSTEMI): Status: Acute (4) Screening for hyperlipidemia: Status: Acute (5) Diabetes type 1, controlled: Status: Acute (6) Gastroparesis: Status: Acute (7) Nausea and vomiting: Status: Acute (8) Cyclical vomiting, intractable: Status: Acute (9) Acute kidney injury: Status: Acute (10) Hyperkalemia: Status: Acute (11) Osteoarthritis of lumbar spine with myelopathy: Status: Acute (12) Diabetic gastroparesis: Status: Acute Plan 49-year-old female with past medical history DM Type I with insulin pump, gastroparesis secondary to diabetes, DKA, pyloric stenosis with history of G-Poem 2018 and will be having a revision in 2 weeks on June 18 at [facility], esophagitis, gastritis, chronic marijuana use, hypertension, herpes Zoster, UTI, non STEMI age 34, anxiety, bipolar 1 disorder, pancreatitis presents to the emergency department with 2 weeks of intermittent intractable nausea and vomiting, admitted for intractable nausea and vomiting in the setting of cyclical hyperemesis syndrome and gastroparesis. Intractable nausea/vomiting/ history of cyclical hyperemesis syndrome with marijuana use/ gastroparesis secondary to type 1 diabetes Continue IV fluids CT ABD negative for acute findings, no free air or fluid EKG pending: Monitor QTC Lipase normal, LA pending Continue Reglan, Dilaudid and Zofran Addition of olanzapine 2.5 mg t.i.d. p.r.n. for nausea and vomiting has been somwhat successful-patient endorses some relief Capsaicin cream PRN Further recommendations for conservative measures: Peppermint gum/tea...etc // heat/ice packs// alcohol wipe GI consulted - recommendations greatly appreciated Tachycardia Possible POTS syndrome EKG pending Telemetry ordered Likely secondary to hypovolemia, N/V, pain Patient did receive 1 dose of metoprolol in the ED Patient currently chest pain-free ECHO Orthostatic hypotension likely secondary to hypovolemia Patient's baseline blood pressure can run as low as 80/50 and she is normally on midodrine in the a.m. Patient has not been able to tolerate p.o. intake for the last 72 hours Patient has received 4 L of IV fluid and continues on a hourly rate Orthostatics to be checked Q shift x3 DEMIAN Wraps placed - to be applied daily Esophagitis Protonix IV b.i.d. HX of G-POEM Patient has planned revision on 06/18/2025 with surgeon at [facility] Evaluated by inpatient gastroenterology S/p endoscopy by GI 06/08/25 revealing gastritis IDDM Type 1 No evidence of DKA, hypoglycemia Patient currently has insulin pump in place but the devices off due to patient's NPO status and being in the emergency department Insulin sliding scale Patient understands that she can not use her continuous glucose monitoring while in the hospital for checking blood glucose levels Bipolar 1/ Anxiety Med rec pending, continue home meds once completed Patient denies any unusual anxiety, SI or HI concerns [employer] - VTE: Heparin 5000 t.i.d. - CODE STATUS: Full code - DIET: Diabetic Total time managing care of this patient today: 35 minutes. Quality Stroke Does the patient have a stroke diagnosis?: No Reason for No Anti-thrombotic by Day Two: N/A - Med Ordered VTE Prior VTE?: No VTE Risk Level:: Medical - moderate - high VTE Device Contraindication: N/A - Device Ordered VTE Drug Contraindication: N/A - Med Ordered
[2025-06-12] MEDS: Lactated Ringers 500 ML 999 ML IV (15:33)
[2025-06-12] MEDS: Lactated Ringers 1,000 ML 100 ML IVCONT (16:15)
[2025-06-12 16:16] LABS: Glucose, Whole Blood 116 mg/dL (60-115)
[2025-06-12 20:45] LABS: Glucose, Whole Blood 313 mg/dL (60-115)
[2025-06-12 23:54] LABS: Glucose, Whole Blood 264 mg/dL (60-115)
[2025-06-13] VITALS (18 sets, daily range): BP systolic 92–180; BP diastolic 49–79; PULSE 73–112; RESP 11–27; TEMP 36.6–36.8; O2SAT 92–99
[2025-06-13] MEDS: Lactated Ringers 1,000 ML 100 ML IVCONT (02:15)
[2025-06-13 07:17] LABS: Glucose, Whole Blood 326 mg/dL (60-115)
[2025-06-13] MEDS: Thiamine HCL 200 MG in 0.9 % Sodium Chloride 100 ML 204 MG IV (08:31)
[2025-06-13 10:55] LABS: Glucose, Whole Blood 309 mg/dL (60-115)
[2025-06-13 11:38] LABS: Anion Gap 24 (12-20); Blood Urea Nitrogen 11 mg/dL (9-16); Calcium 8.3 mg/dL (8.4-10.2); Carbon Dioxide 15 mmol/L (22-29); Chloride 100 mmol/L (96-108); Creatinine Clr Calc Pharmacy 74.4; Estimated Glomerular Filt Rate > 60; Magnesium 1.8 mg/dL (1.6-2.6); Potassium 3.0 mmol/L (3.3-5.1); Sodium 136 mmol/L (135-145)
[2025-06-13] MEDS: KCl 40 mEq in 0.9 % Sodium Chl 40 MEQ/1,000 ML IV.SOLN 100 MEQ IVCONT (13:05)
[2025-06-13 13:10] LABS: VBG HCO3 25 mmol/L (22-26)
[2025-06-13 13:10] LABS: Venous Blood Gas Refer to POC result
[2025-06-13 13:11] LABS: MANUAL DIFF FLAG NO
[2025-06-13 13:15] LABS: Hematocrit 23.8 % (37.0-47.0); Hemoglobin 7.7 g/dl (12.0-16.0); Imm Gran Abs Auto 0.04 X10*3/uL (0.00-0.03); Imm Gran Pct Auto 0.3 % (0.0-0.4); Lymphocytes Absolute Auto 3.2 X10*3/uL (1.2-4.9); Mean Corpuscular HGB Conc 32.4 g/dl (31.0-35.0); Mean Corpuscular Hemoglobin 26.0 pg (27.0-33.0); Mean Corpuscular Volume 80.4 fL (80.0-98.0); NRBC Abs Auto 0.000 X10*3/uL (0.0-0.012); NRBC Pct Auto 0.0 /100WBC (0.0-0.2); Platelet Count 500 X10*3/uL (160-400); Red Blood Count 2.96 X10*6/uL (4.20-5.50); White Blood Count 12.9 X10*3/uL (4.8-10.8)
[2025-06-13 13:34] LABS: Anion Gap 17 (12-20); Blood Urea Nitrogen 10 mg/dL (9-16); Calcium 8.5 mg/dL (8.4-10.2); Carbon Dioxide 24 mmol/L (22-29); Chloride 99 mmol/L (96-108); Creatinine Clr Calc Pharmacy 74.4; Estimated Glomerular Filt Rate > 60; Potassium 3.0 mmol/L (3.3-5.1); Sodium 137 mmol/L (135-145)
[2025-06-13 14:05] LABS: Glucose, Whole Blood 129 mg/dL (60-115)
--- NOTE | 2025-06-13 14:47 | PM.CCN ---
Critical Care Event Note Summary Date of Service: 06/13/25 Code activated: No Narrative: 49 year-old lady with underlying diabetes and gastroparesis with hospital course complicated by ketoacidosis, transferred to intensive care unit for close monitoring. Critical Care Time (minutes): 0
[2025-06-13 14:48] LABS: Glucose, Whole Blood 101 mg/dL (60-115)
[2025-06-13] MEDS: Potassium Chloride/H20 10 MEQ/100 ML PIGGYBACK 100 MEQ IV ×4 (14:56→20:34)
[2025-06-13] MEDS: Insulin Glargine,Hum.rec.anlog 100 UNIT/ML 10 ML VIAL 15 UNIT SUBCUT (14:57)
[2025-06-13] MEDS: Dextrose 5 % and Lactated Ring 1,000 ML 80 ML IVCONT (14:58)
[2025-06-13 15:42] LABS: Glucose, Whole Blood 86 mg/dL (60-115)
[2025-06-13] MEDS: 0.9 % Sodium Chloride Flush 3 ML SYRINGE IVFLUSH (16:33)
[2025-06-13 16:40] LABS: Glucose, Whole Blood 89 mg/dL (60-115)
[2025-06-13 17:22] LABS: Glucose, Whole Blood 101 mg/dL (60-115)
--- NOTE | 2025-06-13 18:28 | PC.NURSE ---
The patient arrived at the ICU? approximately? at? 1445 from [id number] for management of DKA.?? A &O x4. On RA, Fine crackles right lower. Sinus Rhythm on tele. LBM 06/11, +bowel sounds, C /O abdominal pain 03/24, toradol given per SEP.? Initial POC 101. Per Dr. Modesto moss given per SEP. POC Q1HR Port to the right chest access, Peripheral IV x1.
[2025-06-13 18:33] LABS: Anion Gap 16 (12-20); Blood Urea Nitrogen 8 mg/dL (9-16); Calcium 8.3 mg/dL (8.4-10.2); Carbon Dioxide 25 mmol/L (22-29); Chloride 101 mmol/L (96-108); Creatinine Clr Calc Pharmacy 78.6; Estimated Glomerular Filt Rate > 60; Potassium 3.4 mmol/L (3.3-5.1); Sodium 139 mmol/L (135-145)
[2025-06-13 18:33] LABS: Glucose, Whole Blood 144 mg/dL (60-115)
[2025-06-13 19:09] LABS: Glucose, Whole Blood 175 mg/dL (60-115)
[2025-06-13 21:03] LABS: Glucose, Whole Blood 277 mg/dL (60-115)
--- NOTE | 2025-06-13 22:04 | ECG_ITS ---
Test Reason : qtc check Blood Pressure : */* mmHG Vent. Rate : 108 BPM Atrial Rate : 108 BPM P-R Int : 132 ms QRS Dur : 82 ms QT Int : 358 ms P-R-T Axes : 52 23 27 degrees QTcB Int : 479 ms Sinus tachycardia Otherwise normal ECG When compared with ECG of 07-Jun-2025 16:45, T wave inversion less evident in Anterior leads Referred By: Lynda Albrecht Electronically Signed By: NADEEN MCKEON
[2025-06-14] VITALS (14 sets, daily range): BP systolic 99–165; BP diastolic 50–79; PULSE 63–105; RESP 15–23; TEMP 36.4–37.7; O2SAT 92–100; BMI 25.6; BMI 29.2
--- NOTE | 2025-06-14 | ECG_ITS ---
Test Reason : QTC prolongation Blood Pressure : */* mmHG Vent. Rate : 86 BPM Atrial Rate : 86 BPM P-R Int : 122 ms QRS Dur : 84 ms QT Int : 382 ms P-R-T Axes : 28 12 16 degrees QTcB Int : 457 ms Normal sinus rhythm Normal ECG When compared with ECG of 13-Jun-2025 22:11, T wave inversion no longer evident in Anterior leads Referred By: Carol Parker Electronically Signed By: NADEEN MCKEON
[2025-06-14 00:28] LABS: Glucose, Whole Blood 226 mg/dL (60-115)
[2025-06-14] MEDS: 0.9 % Sodium Chloride Flush 3 ML SYRINGE IVFLUSH ×2 (00:29→07:53)
[2025-06-14] MEDS: Dextrose 5 % and Lactated Ring 1,000 ML 50 ML IVCONT (03:37)
[2025-06-14 05:00] LABS: Glucose, Whole Blood 140 mg/dL (60-115)
[2025-06-14 05:22] LABS: MANUAL DIFF FLAG NO
[2025-06-14 05:23] LABS: Hematocrit 25.7 % (37.0-47.0); Hemoglobin 8.3 g/dl (12.0-16.0); Imm Gran Abs Auto 0.04 X10*3/uL (0.00-0.03); Imm Gran Pct Auto 0.4 % (0.0-0.4); Lymphocytes Absolute Auto 3.6 X10*3/uL (1.2-4.9); Mean Corpuscular HGB Conc 32.3 g/dl (31.0-35.0); Mean Corpuscular Hemoglobin 26.1 pg (27.0-33.0); Mean Corpuscular Volume 80.8 fL (80.0-98.0); NRBC Abs Auto 0.000 X10*3/uL (0.0-0.012); NRBC Pct Auto 0.0 /100WBC (0.0-0.2); Platelet Count 527 X10*3/uL (160-400); Red Blood Count 3.18 X10*6/uL (4.20-5.50); White Blood Count 9.3 X10*3/uL (4.8-10.8)
[2025-06-14 05:26] LABS: VBG HCO3 29 mmol/L (22-26); VBG O2 % Saturation 99.0 %
[2025-06-14 05:35] LABS: Venous Blood Gas Refer to POC result
[2025-06-14 05:50] LABS: Albumin Level 3.6 g/dL (3.5-5.0); Anion Gap 14 (12-20); Blood Urea Nitrogen 6 mg/dL (9-16); Calcium 8.7 mg/dL (8.4-10.2); Carbon Dioxide 26 mmol/L (22-29); Chloride 103 mmol/L (96-108); Creatinine Clr Calc Pharmacy 80.5; Estimated Glomerular Filt Rate > 60; Magnesium 1.8 mg/dL (1.6-2.6); Potassium 3.3 mmol/L (3.3-5.1); Sodium 140 mmol/L (135-145)
[2025-06-14] MEDS: Potassium Phosphate/NS 15 MMOL/250 ML PLAST..BAG 62.5 MMOL IV (07:37)
[2025-06-14] MEDS: Thiamine HCL 200 MG in 0.9 % Sodium Chloride 100 ML 204 MG IV (07:44)
[2025-06-14] MEDS: Insulin Glargine,Hum.rec.anlog 100 UNIT/ML 10 ML VIAL 15 UNIT SUBCUT (07:53)
[2025-06-14 08:03] LABS: Glucose, Whole Blood 209 mg/dL (60-115)
[2025-06-14] MEDS: Lactated Ringers 1,000 ML 100 ML IVCONT ×2 (10:29→19:48)
[2025-06-14 11:26] LABS: Glucose, Whole Blood 265 mg/dL (60-115)
--- NOTE | 2025-06-14 11:30 | MHC.CM.PN ---
Pt will transfer to the medical floor today: D/C plan: return to home w/ spouse who will transport pt. CM to follow
[2025-06-14 11:59] LABS: Glucose, Whole Blood 254 mg/dL (60-115)
[2025-06-14 16:20] LABS: Glucose, Whole Blood 229 mg/dL (60-115)
--- NOTE | 2025-06-14 17:19 | PM.EVENT ---
Event Note Date of Service: 06/14/25 Event Note: Patient transferred to the floors Patient care challenging given multiple medical issues and gastroparesis GI reviewed her chart-narcotics contraindicated in gastroparesis Pain management is being addressed with Tylenol, lidocaine, capsaicin, Ketoralac, Bentyl Gastroparesis-initiating to 50 mg erythromycin p.o. t.i.d. a.c. We will check EKG for QTC prolongation Hyperglycemia-continue insulin sliding scale and Lantus coverage Patient has been educated by multiple specialties including GI which had seen her a few days ago regarding contraindication for narcotics in a patient who is diabetic gastroparesis with worsening clinical status. Time Spent With Patient Time: Total time managing care of this patient today ____ minutes.
[2025-06-14 20:07] LABS: Glucose, Whole Blood 196 mg/dL (60-115)
--- NOTE | 2025-06-15 | ECG_ITS ---
Test Reason : QTC prolongation Blood Pressure : */* mmHG Vent. Rate : 120 BPM Atrial Rate : 120 BPM P-R Int : 128 ms QRS Dur : 78 ms QT Int : 320 ms P-R-T Axes : 41 32 29 degrees QTcB Int : 452 ms Sinus tachycardia Low voltage QRS Borderline ECG When compared with ECG of 14-Jun-2025 19:11, No significant change was found Referred By: Carol Parker Electronically Signed By: NADEEN MCKEON
[2025-06-15 00:06] LABS: Glucose, Whole Blood 187 mg/dL (60-115)
[2025-06-15 04:00] VITALS: BP 126/68; PULSE 67; RESP 18; TEMP 36.3; O2SAT 94
[2025-06-15] MEDS: Lactated Ringers 1,000 ML 100 ML IVCONT ×2 (04:21→15:11)
[2025-06-15 06:57] LABS: MANUAL DIFF FLAG NO
[2025-06-15 07:11] LABS: Hematocrit 27.5 % (37.0-47.0); Hemoglobin 8.7 g/dl (12.0-16.0); Imm Gran Abs Auto 0.05 X10*3/uL (0.00-0.03); Imm Gran Pct Auto 0.5 % (0.0-0.4); Lymphocytes Absolute Auto 1.9 X10*3/uL (1.2-4.9); Mean Corpuscular HGB Conc 31.6 g/dl (31.0-35.0); Mean Corpuscular Hemoglobin 25.4 pg (27.0-33.0); Mean Corpuscular Volume 80.4 fL (80.0-98.0); NRBC Abs Auto 0.000 X10*3/uL (0.0-0.012); NRBC Pct Auto 0.0 /100WBC (0.0-0.2); Platelet Count 587 X10*3/uL (160-400); Red Blood Count 3.42 X10*6/uL (4.20-5.50); White Blood Count 9.6 X10*3/uL (4.8-10.8)
[2025-06-15 07:28] LABS: Alanine Aminotransferase < 6 U/L (0-31); Albumin Level 3.8 g/dL (3.5-5.0); Alkaline Phosphatase 83 U/L (39-117); Anion Gap 15 (12-20); Aspartate Amino Transferase 13 U/L (5-31); Blood Urea Nitrogen 7 mg/dL (9-16); Calcium 9.1 mg/dL (8.4-10.2); Carbon Dioxide 27 mmol/L (22-29); Chloride 101 mmol/L (96-108); Creatinine Clr Calc Pharmacy 81.6; Estimated Glomerular Filt Rate > 60; Potassium 3.0 mmol/L (3.3-5.1); Sodium 140 mmol/L (135-145); Total Protein 6.5 g/dL (6.5-8.0)
[2025-06-15 08:00] VITALS: BP 130/63; PULSE 99; RESP 13; TEMP 37.1; O2SAT 99
[2025-06-15 08:47] LABS: Glucose, Whole Blood 252 mg/dL (60-115)
[2025-06-15] MEDS: Insulin Glargine,Hum.rec.anlog 100 UNIT/ML 10 ML VIAL 15 UNIT SUBCUT (09:07)
[2025-06-15] MEDS: 0.9 % Sodium Chloride Flush 3 ML SYRINGE IVFLUSH (09:11)
[2025-06-15 11:40] LABS: Glucose, Whole Blood 221 mg/dL (60-115)
--- NOTE | 2025-06-15 14:36 | HO.PM.IMPN ---
Subjective Subjective Date of Service: 06/15/25 Interval History: Diet advanced - will challenge her with diabetic diet Evening per event note - she likely has severe electrolyte abnormalities - being repleted Review of Systems Review of Systems: Yes all other systems are reviewed and are negative Physical Exam Exam: Exam: General: AOx3, sleepy when I saw the pt Resp: CTA bilaterally CVS: S1, S2, RRR GI: mild epigastric tenderness Neuro: Cranial nerves II-XII grossly intact bilaterally. Motor grossly intact bilaterally Orthostats + in past Vital Signs: Vital Signs: Last Vital Signs Temp 98.7 F 06/15/25 08:00 Pulse 99 06/15/25 08:00 Resp 13 06/15/25 08:00 BP 130/63 06/15/25 08:00 Pulse Ox 99 06/15/25 08:00 O2 Del Method Room Air 06/15/25 08:00 BMI result Body Mass Index 29.2 Objective Data Active Medications Acetaminophen (Acetaminophen 325 Mg Tablet) 975 mg PO Q6H [facility] Last Admin: 06/15/25 14:13 Dose: Not Given Documented By: THUY Non-Admin Reason: Patient Refused Capsaicin (Capsaicin 0.075% Cream 57 Gm Tube) 1 appl TOPICAL TID RAISA; Protocol Last Admin: 06/15/25 09:13 Dose: Not Given Documented By: THUY Non-Admin Reason: Patient Refused Dextrose (Dextrose 50 % 25 Gm/50 Ml Syringe) 25 gm IVPUSH Q30M PRN PRN Reason: BG < 70 Dicyclomine HCl (Dicyclomine Hcl 10 Mg Capsule) 10 mg PO QIDACHS [facility] Last Admin: 06/15/25 12:26 Dose: 10 mg Documented By: THUY Enoxaparin Sodium (Enoxaparin Sodium 40 Mg/0.4 Ml Syringe) 40 mg SUBCUT DAILY [facility] Last Admin: 06/15/25 09:09 Dose: Not Given Documented By: THUY Non-Admin Reason: Patient Refused Erythromycin (Erythromycin Base 250 Mg Tablet) 250 mg PO TIDAC [facility] Last Admin: 06/15/25 12:26 Dose: 250 mg Documented By: THUY Glucose (Glucose Gel 15 Gm Gel..Gram.) 15 gm PO Q15M PRN; Protocol PRN Reason: per Hypoglycemia Standing Ord. Lactated Ringer's (Lr) 1,000 mls @ 100 mls/hr IVCONT .Q10H [facility] Last Admin: 06/15/25 04:21 Dose: 100 mls/hr Documented By: ANDRIY Insulin Glargine (Insulin Glargine,Hum.Rec.Anlog 100 Unit/Ml 10 Ml Vial) 15 unit SUBCUT DAILY [facility] Last Admin: 06/15/25 09:07 Dose: 15 unit Documented By: THUY Insulin Human Lispro (Insulin Lispro 100 Unit/Ml 3 Ml Vial) 0 unit SUBCUT QIDACHS [facility]; Protocol Last Admin: 06/15/25 12:26 Dose: 4 unit Documented By: THUY Ketorolac Tromethamine (Ketorolac Tromethamine 15 Mg/Ml Vial) 15 mg IVPUSH Q6H [facility] Last Admin: 06/15/25 09:10 Dose: 15 mg Documented By: THUY Lamotrigine (Lamotrigine 100 Mg Tablet) 200 mg PO BID [facility] Last Admin: 06/15/25 09:11 Dose: 200 mg Documented By: THUY Lidocaine (Lidocaine 4 % Patch Adh..Patch) 2 patch TRANSDERMA DAILY [facility]; Protocol Last Admin: 06/15/25 09:44 Dose: Not Given Documented By: THUY Non-Admin Reason: Patient Refused Lorazepam (Lorazepam 1 Mg Tablet) 1 mg PO Q8H PRN PRN Reason: Anxiety Last Admin: 06/15/25 05:35 Dose: 1 mg Documented By: ANDRIY Magnesium Hydroxide (Milk Of Magnesia 30 Ml Oral.Susp) 30 ml PO DAILY PRN PRN Reason: Constipation Metoclopramide HCl (Metoclopramide Hcl 10 Mg/2 Ml Vial) 10 mg IVPUSH Q6H PRN PRN Reason: Nausea and Vomiting Last Admin: 06/15/25 09:10 Dose: 10 mg Documented By: THUY Metoprolol Tartrate (Metoprolol Tartrate 25 Mg Tablet) 25 mg PO BID [facility]; Protocol Last Admin: 06/15/25 09:11 Dose: 25 mg Documented By: THUY Olanzapine (Olanzapine 2.5 Mg Tablet) 2.5 mg PO TID [facility] Last Admin: 06/15/25 09:12 Dose: 2.5 mg Documented By: THUY Omeprazole (Omeprazole 20 Mg Capsule.Dr) 20 mg PO BID@0530,3465 [facility] Last Admin: 06/15/25 05:44 Dose: 20 mg Documented By: ANDRIY Ondansetron HCl (Ondansetron Hcl 4 Mg/2 Ml Vial) 4 mg IVPUSH Q8H PRN PRN Reason: Nausea and Vomiting Last Admin: 06/15/25 04:17 Dose: 4 mg Documented By: ANDRIY Risperidone (Risperidone 3 Mg Tablet) 3 mg PO BID [facility] Last Admin: 06/15/25 09:24 Dose: 3 mg Documented By: THUY Sodium Chloride (0.9 % Sodium Chloride Flush 3 Ml Syringe) 3 ml IVFLUSH QSHIFT [facility] Last Admin: 06/15/25 09:11 Dose: 3 ml Documented By: THUY Thiamine HCl (Thiamine Hcl 100 Mg Tablet) 100 mg PO DAILY [facility] Last Admin: 06/15/25 09:12 Dose: 100 mg Documented By: THUY Zolpidem Tartrate (Zolpidem Tartrate 5 Mg Tablet) 10 mg PO BEDTIME [facility] Last Admin: 06/14/25 22:28 Dose: 10 mg Documented By: ANDRIY Labs 06/15/25 06:10 06/15/25 18:00 Labs: Laboratory Results - last 24 hr 06/14/25 06/14/25 06/15/25 16:16 20:02 00:02 MCV MCH MCHC RDW Plt Count MPV Immature Gran % (Auto) Neut % (Auto) Lymph % (Auto) [place] % (Auto) Eos % (Auto) Baso % (Auto) Lymph # (Auto) [place] # (Auto) Eos # (Auto) Baso # (Auto) Abs Immat Gran (auto) Absolute Neuts (auto) Absolute Nucleated RBC Nucleated RBC % (auto) Anion Gap Estim Creat Clear Calc Estimated GFR POC Glucose 229 H 196 H 187 H Random Glucose Calcium Total Bilirubin AST ALT Alkaline Phosphatase Total Protein Albumin 06/15/25 06/15/25 06/15/25 06:10 08:43 11:36 MCV 80.4 MCH 25.4 L MCHC 31.6 RDW 17.5 H Plt Count 587 H MPV 9.1 L Immature Gran % (Auto) 0.5 H Neut % (Auto) 69.4 Lymph % (Auto) 20.1 [place] % (Auto) 8.6 Eos % (Auto) 0.8 Baso % (Auto) 0.6 Lymph # (Auto) 1.9 [place] # (Auto) 0.8 Eos # (Auto) 0.1 Baso # (Auto) 0.1 Abs Immat Gran (auto) 0.05 H Absolute Neuts (auto) 6.7 Absolute Nucleated RBC 0.000 Nucleated RBC % (auto) 0.0 Anion Gap 15 Estim Creat Clear Calc 81.6 Estimated GFR > 60 POC Glucose 252 H 221 H Random Glucose 226 H Calcium 9.1 Total Bilirubin 0.3 AST 13 ALT < 6 Alkaline Phosphatase 83 Total Protein 6.5 Albumin 3.8 Assessment and Plan (1) Diabetic gastroparesis: Status: Acute Plan 49-year-old female with past medical history DM Type I with insulin pump, gastroparesis secondary to diabetes, DKA, pyloric stenosis with history of G-Poem 2018 and will be having a revision in 2 weeks on June 18 at [facility], esophagitis, gastritis, chronic marijuana use, hypertension, herpes Zoster, UTI, non STEMI age 34, anxiety, bipolar 1 disorder, pancreatitis presents to the emergency department with 2 weeks of intermittent intractable nausea and vomiting, admitted for intractable nausea and vomiting in the setting of cyclical hyperemesis syndrome and gastroparesis. Briefly in and out of ICU for AGMA due to N/V. Back on floors as of 06/14/25. Intractable nausea/vomiting/ history of cyclical hyperemesis syndrome with marijuana use/ gastroparesis secondary to type 1 diabetes Encourage po intake as pttolerating po intake GI consulted - diabetic gastroparesis AGMA DM Type 1 likely due to poor po intake resolved with fluids while in ICU , didnt need a drip will monitor daily CMP ISS Lantus is a must in a pt with DM1 Hypoglycemia protocol Chronic pain management Gastroparesis Patient care challenging given multiple medical issues and gastroparesis GI reviewed her chart-narcotics contraindicated in gastroparesis Pain management is being addressed with Tylenol, lidocaine, capsaicin, Ketoralac, Bentyl Gastroparesis-Cont 50 mg erythromycin p.o. t.i.d. a.c. We will check EKG for QTC prolongation Hyperglycemia-continue insulin sliding scale and Lantus coverage Patient has been educated by multiple specialties including GI which had seen her a few days ago regarding contraindication for narcotics in a patient who is diabetic gastroparesis with worsening clinical status. OP Gastroparesis mx Tachycardia Possible POTS syndrome Orthostatic hypotension likely secondary to hypovolemia Telemetry ordered Likely secondary to hypovolemia, N/V, pain TTE Tele Midodrine tid prn effie stockings and AMY wraps She has low normal baseline per prior notes Severe hypoMg due to poor intake- check and replete to goal Severe hypoK due to poor intake- check and replete to goal Esophagitis Omeprazole po bid HX of G-POEM Patient has planned revision on 06/18/2025 with surgeon at [facility], unclear if she will be able to keep that appt Evaluated by inpatient gastroenterology S/p endoscopy by GI 06/08/25 revealing gastritis Bipolar 1/ Anxiety continue home meds Patient denies any unusual anxiety, SI or HI concerns DVT px - Lovenox PT eval needed for severe baseline orthostasis This note is constructed using voice recognition software. While every effort has been made to ensure accuracy, hand heel seat fitter errors may have been included. Total time managing care of this patient today: 35 minutes. Quality Stroke Does the patient have a stroke diagnosis?: No Reason for No Anti-thrombotic by Day Two: N/A - Med Ordered VTE Prior VTE?: No VTE Risk Level:: Medical - moderate - high VTE Device Contraindication: N/A - Device Ordered VTE Drug Contraindication: N/A - Med Ordered
[2025-06-15 16:00] VITALS: BP 129/74; PULSE 98; RESP 16; TEMP 36.9; O2SAT 99
[2025-06-15 16:47] LABS: Glucose, Whole Blood 117 mg/dL (60-115)
--- NOTE | 2025-06-15 17:56 | PM.EVENT ---
Event Note Date of Service: 06/15/25 Event Note: c/o dizziness, stays ongoing since fall, when got up from chair to bed, no other symptoms, usually exacerbated by pain which is severe right now, no other neuro symptoms or finding, raise concern of going back into DKA, checking bmp, dilaudid for pain, if dizziness, persists, CT H Time Spent With Patient Time: Total time managing care of this patient today ____ minutes.
[2025-06-15 18:50] LABS: Anion Gap 12 (12-20); Blood Urea Nitrogen 7 mg/dL (9-16); Calcium 8.5 mg/dL (8.4-10.2); Carbon Dioxide 29 mmol/L (22-29); Chloride 103 mmol/L (96-108); Creatinine Clr Calc Pharmacy 73.4; Estimated Glomerular Filt Rate 59; Potassium 2.7 mmol/L (3.3-5.1); Sodium 141 mmol/L (135-145)
[2025-06-15 19:20] LABS: Magnesium 1.5 mg/dL (1.6-2.6)
--- NOTE | 2025-06-15 19:39 | PC.NURSE ---
1730 today Pt sitting in chair, reports feeling dizzy and seeing spots . Vs 98.1 temp, 90 pulse, 16 resp, 97% RA, 99/51 manual BP. Hospitalist alerted, pt returned to bed. will cont to monitor.
[2025-06-15] MEDS: Potassium Chloride/H20 10 MEQ/100 ML PIGGYBACK 100 MEQ IV ×3 (19:46→22:59)
[2025-06-15 20:00] VITALS: BP 172/87; PULSE 120; RESP 18; TEMP 36.8; O2SAT 98
[2025-06-15 21:11] LABS: Glucose, Whole Blood 296 mg/dL (60-115)
[2025-06-15] MEDS: Magnesium Sulfate/H2O 2 GM/50 ML PIGGYBACK IV (22:03)
[2025-06-15 22:36] LABS: Calcium 7.7 mg/dL (8.4-10.2); Chloride 104 mmol/L (96-108); Potassium 2.8 mmol/L (3.3-5.1); Sodium 140 mmol/L (135-145)
[2025-06-16] VITALS (9 sets, daily range): BP systolic 73–147; BP diastolic 40–78; PULSE 75–119; RESP 13–16; TEMP 36.8; O2SAT 92–98; BMI 28.9
[2025-06-16] MEDS: Potassium Chloride/H20 10 MEQ/100 ML PIGGYBACK 100 MEQ IV ×3 (00:32→02:54)
[2025-06-16] MEDS: Lactated Ringers 1,000 ML 100 ML IVCONT (02:55)
[2025-06-16 06:25] LABS: MANUAL DIFF FLAG NO
[2025-06-16 06:36] LABS: Hematocrit 26.5 % (37.0-47.0); Hemoglobin 8.5 g/dl (12.0-16.0); Imm Gran Abs Auto 0.04 X10*3/uL (0.00-0.03); Imm Gran Pct Auto 0.3 % (0.0-0.4); Lymphocytes Absolute Auto 3.8 X10*3/uL (1.2-4.9); Mean Corpuscular HGB Conc 32.1 g/dl (31.0-35.0); Mean Corpuscular Hemoglobin 26.2 pg (27.0-33.0); Mean Corpuscular Volume 81.5 fL (80.0-98.0); NRBC Abs Auto 0.000 X10*3/uL (0.0-0.012); NRBC Pct Auto 0.0 /100WBC (0.0-0.2); Platelet Count 493 X10*3/uL (160-400); Red Blood Count 3.25 X10*6/uL (4.20-5.50); White Blood Count 13.9 X10*3/uL (4.8-10.8)
[2025-06-16 06:51] LABS: Alanine Aminotransferase < 6 U/L (0-31); Albumin Level 3.5 g/dL (3.5-5.0); Alkaline Phosphatase 80 U/L (39-117); Aspartate Amino Transferase 14 U/L (5-31); Blood Urea Nitrogen 8 mg/dL (9-16); Creatinine Clr Calc Pharmacy 84.1; Estimated Glomerular Filt Rate > 60; Magnesium 2.1 mg/dL (1.6-2.6); Total Protein 6.0 g/dL (6.5-8.0)
[2025-06-16 07:00] LABS: Anion Gap 12 (12-20); Calcium 8.4 mg/dL (8.4-10.2); Carbon Dioxide 27 mmol/L (22-29); Chloride 104 mmol/L (96-108); Potassium 3.3 mmol/L (3.3-5.1); Sodium 140 mmol/L (135-145)
--- NOTE | 2025-06-16 07:17 | HO.PM.IMPN ---
Subjective Subjective Date of Service: 06/16/25 Physical Exam Vital Signs: Vital Signs: Last Vital Signs Temp 98.3 F 06/16/25 04:00 Pulse 119 H 06/16/25 06:33 Resp 16 06/16/25 04:00 BP 90/52 L 06/16/25 06:33 Pulse Ox 98 06/16/25 04:00 O2 Del Method Room Air 06/16/25 04:00 BMI result Body Mass Index 28.9 Objective Data Active Medications Acetaminophen (Acetaminophen 325 Mg Tablet) 975 mg PO Q6H [facility] Last Admin: 06/16/25 05:59 Dose: Not Given Documented By: JAQUI Non-Admin Reason: Patient Refused Capsaicin (Capsaicin 0.075% Cream 57 Gm Tube) 1 appl TOPICAL TID [facility]; Protocol Last Admin: 06/15/25 21:10 Dose: Not Given Documented By: JAQUI Non-Admin Reason: Patient Refused Dextrose (Dextrose 50 % 25 Gm/50 Ml Syringe) 25 gm IVPUSH Q30M PRN PRN Reason: BG < 70 Dicyclomine HCl (Dicyclomine Hcl 10 Mg Capsule) 10 mg PO QIDACHS [facility] Last Admin: 06/15/25 21:09 Dose: 10 mg Documented By: JAQUI Enoxaparin Sodium (Enoxaparin Sodium 40 Mg/0.4 Ml Syringe) 40 mg SUBCUT DAILY [facility] Last Admin: 06/15/25 09:09 Dose: Not Given Documented By: THUY Non-Admin Reason: Patient Refused Erythromycin (Erythromycin Base 250 Mg Tablet) 250 mg PO TIDAC [facility] Last Admin: 06/15/25 16:32 Dose: 250 mg Documented By: THUY Glucose (Glucose Gel 15 Gm Gel..Gram.) 15 gm PO Q15M PRN; Protocol PRN Reason: per Hypoglycemia Standing Ord. Hydromorphone HCl (Hydromorphone Hcl 1 Mg/Ml Syringe) 0.5 mg IVPUSH Q6H PRN; Protocol PRN Reason: Pain, Severe (Pain Scale 7-10) Last Admin: 06/16/25 05:58 Dose: 0.5 mg Documented By: JAQUI Lactated Ringer's (Lr) 1,000 mls @ 100 mls/hr IVCONT .Q10H [facility] Last Admin: 06/16/25 02:55 Dose: 100 mls/hr Documented By: JAQUI Insulin Glargine (Insulin Glargine,Hum.Rec.Anlog 100 Unit/Ml 10 Ml Vial) 15 unit SUBCUT DAILY [facility] Last Admin: 06/15/25 09:07 Dose: 15 unit Documented By: THUY Insulin Human Lispro (Insulin Lispro 100 Unit/Ml 3 Ml Vial) 0 unit SUBCUT QIDACHS [facility]; Protocol Last Admin: 06/15/25 21:16 Dose: 6 unit Documented By: JAQUI Ketorolac Tromethamine (Ketorolac Tromethamine 15 Mg/Ml Vial) 15 mg IVPUSH Q6H [facility] Last Admin: 06/16/25 01:39 Dose: 15 mg Documented By: JAQUI Lamotrigine (Lamotrigine 100 Mg Tablet) 200 mg PO BID [facility] Last Admin: 06/15/25 21:09 Dose: 200 mg Documented By: JAQUI Lidocaine (Lidocaine 4 % Patch Adh..Patch) 2 patch TRANSDERMA DAILY [facility]; Protocol Last Admin: 06/15/25 09:44 Dose: Not Given Documented By: THUY Non-Admin Reason: Patient Refused Lorazepam (Lorazepam 1 Mg Tablet) 1 mg PO Q8H PRN PRN Reason: Anxiety Last Admin: 06/15/25 05:35 Dose: 1 mg Documented By: ANDRIY Magnesium Hydroxide (Milk Of Magnesia 30 Ml Oral.Susp) 30 ml PO DAILY PRN PRN Reason: Constipation Magnesium Oxide (Magnesium Oxide 400 Mg Tablet) [facility] Metoclopramide HCl (Metoclopramide Hcl 10 Mg/2 Ml Vial) 10 mg IVPUSH Q6H PRN PRN Reason: Nausea and Vomiting Last Admin: 06/16/25 01:39 Dose: 10 mg Documented By: JAQUI Metoprolol Tartrate (Metoprolol Tartrate 25 Mg Tablet) 25 mg PO BID [facility]; Protocol Last Admin: 06/15/25 21:08 Dose: 25 mg Documented By: JAQUI Olanzapine (Olanzapine 2.5 Mg Tablet) 2.5 mg PO TID [facility] Last Admin: 06/15/25 21:09 Dose: 2.5 mg Documented By: JAQUI Omeprazole (Omeprazole 20 Mg Capsule.) 20 mg PO BID@0630,3080 [facility] Last Admin: 06/16/25 05:51 Dose: 20 mg Documented By: JAQUI Ondansetron HCl (Ondansetron Hcl 4 Mg/2 Ml Vial) 4 mg IVPUSH Q8H PRN PRN Reason: Nausea and Vomiting Last Admin: 06/16/25 05:58 Dose: 4 mg Documented By: JAQUI Risperidone (Risperidone 3 Mg Tablet) 3 mg PO BID [facility] Last Admin: 06/15/25 21:08 Dose: 3 mg Documented By: JAQUI Sodium Chloride (0.9 % Sodium Chloride Flush 3 Ml Syringe) 3 ml IVFLUSH QSHIFT [facility] Last Admin: 06/15/25 22:59 Dose: Not Given Documented By: JAQUI Non-Admin Reason: IV Running Thiamine HCl (Thiamine Hcl 100 Mg Tablet) 100 mg PO DAILY [facility] Last Admin: 06/15/25 09:12 Dose: 100 mg Documented By: THUY Zolpidem Tartrate (Zolpidem Tartrate 5 Mg Tablet) 10 mg PO BEDTIME [facility] Last Admin: 06/15/25 21:09 Dose: 10 mg Documented By: JAQUI Labs 06/16/25 06:20 06/16/25 06:20 Labs: Laboratory Results - last 24 hr 06/15/25 06/15/25 06/15/25 06:10 08:43 11:36 MCV MCH MCHC RDW Plt Count MPV Immature Gran % (Auto) Neut % (Auto) Lymph % (Auto) [place] % (Auto) Eos % (Auto) Baso % (Auto) Lymph # (Auto) [place] # (Auto) Eos # (Auto) Baso # (Auto) Abs Immat Gran (auto) Absolute Neuts (auto) Absolute Nucleated RBC Nucleated RBC % (auto) Anion Gap 15 Estim Creat Clear Calc 81.6 Estimated GFR > 60 POC Glucose 252 H 221 H Random Glucose 226 H Calcium 9.1 Magnesium Total Bilirubin 0.3 AST 13 ALT < 6 Alkaline Phosphatase 83 Total Protein 6.5 Albumin 3.8 06/15/25 06/15/25 06/15/25 16:22 18:00 20:38 MCV MCH MCHC RDW Plt Count MPV Immature Gran % (Auto) Neut % (Auto) Lymph % (Auto) [place] % (Auto) Eos % (Auto) Baso % (Auto) Lymph # (Auto) [place] # (Auto) Eos # (Auto) Baso # (Auto) Abs Immat Gran (auto) Absolute Neuts (auto) Absolute Nucleated RBC Nucleated RBC % (auto) Anion Gap 12 Estim Creat Clear Calc 73.4 Estimated GFR 59 POC Glucose 117 H 296 H Random Glucose 249 H Calcium 8.5 D Magnesium 1.5 L Total Bilirubin AST ALT Alkaline Phosphatase Total Protein Albumin 06/15/25 06/16/25 21:48 06:20 MCV 81.5 MCH 26.2 L MCHC 32.1 RDW 17.5 H Plt Count 493 H MPV 8.4 L Immature Gran % (Auto) 0.3 Neut % (Auto) 65.0 Lymph % (Auto) 27.6 [place] % (Auto) 5.9 Eos % (Auto) 0.9 Baso % (Auto) 0.3 Lymph # (Auto) 3.8 [place] # (Auto) 0.8 Eos # (Auto) 0.1 Baso # (Auto) 0.0 Abs Immat Gran (auto) 0.04 H Absolute Neuts (auto) 9.0 H Absolute Nucleated RBC 0.000 Nucleated RBC % (auto) 0.0 Anion Gap 15 12 Estim Creat Clear Calc 78.1 84.1 Estimated GFR > 60 > 60 POC Glucose Random Glucose 333 H 165 H Calcium 7.7 L D 8.4 D Magnesium 2.1 Total Bilirubin 0.3 AST 14 ALT < 6 Alkaline Phosphatase 80 Total Protein 6.0 L Albumin 3.5 Quality Stroke Does the patient have a stroke diagnosis?: No Reason for No Anti-thrombotic by Day Two: N/A - Med Ordered VTE Prior VTE?: No VTE Risk Level:: Medical - moderate - high VTE Device Contraindication: N/A - Device Ordered VTE Drug Contraindication: N/A - Med Ordered
[2025-06-16 07:39] LABS: Glucose, Whole Blood 175 mg/dL (60-115)
[2025-06-16] MEDS: Insulin Glargine,Hum.rec.anlog 100 UNIT/ML 10 ML VIAL 15 UNIT SUBCUT (09:00)
[2025-06-16] MEDS: Lidocaine 4 % Patch ADH..PATCH 2 PATCH TRANSDERMA (09:01)
--- NOTE | 2025-06-16 11:10 | MHC.CM.PN ---
Per MD, patient medically cleared for dc home self care. will transport home at noon. RN and aware. IMM delivered.
[2025-06-16 11:31] LABS: Glucose, Whole Blood 151 mg/dL (60-115)
--- NOTE | 2025-06-16 11:51 | P.DS_ITS ---
DS: Providers Provider Date of Service: 06/16/25 Date of admission: 06/07/25 05:17 Date of discharge: 06/16/25 Primary care physician: Yulisa Avila MD Consults: 06/07/25 06:01 Consult to Gastroenterology Routine Consulting Provider: Flavio Santos Reason for consultation: Intractable nausea and vomiting, due for revision of G-poem 06/18 Has provider been notified: No DS: Diagnosis Discharge Diagnosis (1) Diabetic gastroparesis: Status: Acute DS: Summary Hospital Course Hospital Course: Chief Complaint: intractable nausea A 49-year-old adopted female with past medical history DM Type I with insulin pump, gastroparesis secondary to diabetes, DKA, pyloric stenosis with history of G-Poem 2019 and will be having a revision in 2 weeks on June 18 at [facility], esophagitis, gastritis, chronic marijuana use, hypertension, herpes Zoster, UTI, non STEMI age 34, anxiety, bipolar 1 disorder, pancreatitis presents to the emergency department with 2 weeks of intermittent intractable nausea and vomiting with no unexplained weight loss but inability to tolerate clears and/or solid food consistently for last 72 hours. Patient was evaluated by EMS and was found to be orthostatic and initially patient did not want to be taken to the ED but EMS advocated for patient to be seen. Patient states she does take midodrine in the AM as her blood pressure normally runs 80's/50. Patient states she received Dilaudid and Reglan which seemed to work best in calming her symptoms since arrival to the ED. Patient states she has an upcoming procedure for revision of pylorus/G-Poem on June 18 with her surgical provider at [facility]. Patient does normally follow with GI here at [facility]. Patient actually has an appointment later today with Dr. Fletcher. Patient denies any current chest pain, shortness of breath at rest or with exertion, hematoemesis, blood in stool, constipation or diarrhea. Patient denies any fever, chills or productive cough. Patient denies any current issues with alcohol, tobacco use or illicit drug use. Patient was a previous smoker who quit approximately 10 years ago. Patient does use marijuana intermittently but not daily. Patient's last use of marijuana was this past Saturday. Patient does not use edibles. Patient denies any suicidal or homicidal tendencies noting hx of Bipolar depression. Workup in the ED included CT of the abdomen and pelvis which was negative for any acute findings. There was no free air or fluid present. Evidence of esophagitis and mild hepatic steatosis were noted. Patient also had evidence of small nonobstructing renal stones. UA negative for actual UTI. Patient does have a leukocytosis of 11.9, H&H of 9.3 and 20 8.8 and platelets of 472K. Blood glucose running 100-126. Lipase 6. No evidence of acidosis. LFTs and T bilirubin are all normal. Beta hydroxybutyrate 0.09. COVID, flu and RSV testing were all negative. Drug screen positive for marijuana only. Emergency room provider requesting admission for persistent nausea and vomiting and for the fact that patient can not tolerate clears. Patient currently deferring the need for NG tube. Hospital course: Diabetic gastroparesis 49-year-old female with past medical history DM Type I with insulin pump, gastroparesis secondary to diabetes, DKA, pyloric stenosis with history of G- Poem 2018 and will be having a revision in 2 weeks on June 18 at [facility], esophagitis, gastritis, chronic marijuana use, hypertension, herpes Zoster, UTI, non STEMI age 34, anxiety, bipolar 1 disorder, pancreatitis presents to the emergency department with 2 weeks of intermittent intractable nausea and vomiting, admitted for intractable nausea and vomiting in the setting of cyclical hyperemesis syndrome and gastroparesis. Briefly in and out of ICU for AGMA due to N/V. Back on floors as of 06/14/25. Intractable nausea/vomiting/ history of cyclical hyperemesis syndrome with marijuana use/ gastroparesis secondary to type 1 diabetes Chronic pain management Gastroparesis Encouraged po intake as pttolerating po intake Patient care challenging given multiple medical issues and gastroparesis GI reviewed her chart-narcotics contraindicated in gastroparesis Pain management is being addressed with Tylenol, lidocaine, capsaicin, Ketora lac, Bentyl Gastroparesis-Cont 50 mg erythromycin p.o. t.i.d. a.c. EKG did not reveal any QTC prolongation Patient has been educated by multiple specialties including GI which had seen her a few days ago regarding contraindication for narcotics in a patient who is diabetic gastroparesis with worsening clinical status. OP Gastroparesis mx AGMA DM Type 1 Anion gap metabolic acidosis likely due to poor po intake,resolved with fluids while in ICU , didnt need a drip We monitored daily CMP ISS Lantus is a must in a pt with DM1 Hyperglycemia-continue insulin sliding scale and Lantus coverage Tachycardia Possible POTS syndrome Orthostatic hypotension likely secondary to hypovolemia Telemetry ordered Likely secondary to hypovolemia, N/V, pain TTE Tele Midodrine tid prn effie stockings and AMY wraps extensive education and also in discharge instructions She has low normal baseline per prior notes Severe hypoMg due to poor intake- checked and repleted to goal daily Severe hypoK due to poor intake- checked and repleted to goal daily Esophagitis Omeprazole po bid HX of G-POEM Patient has planned revision on 06/18/2025 with surgeon at [facility], Evaluated by inpatient gastroenterology S/p endoscopy by GI 06/08/25 revealing gastritis Bipolar 1/ Anxiety continue home meds Patient denies any unusual anxiety, SI or HI concerns DVT px - Lovenox while inpatient PT eval needed for severe baseline orthostasis This note is constructed using voice recognition software. While every effort has been made to ensure accuracy, design quality engineer errors may have been included. Time spent discussing smoking cessation with patient: more than 10 minutes Time Attestation Discharge Coordination Time (in mins): 45 Quality: Safe Use of Opioids Does Pt have an Active Cancer Diagnosis on the Problem List?: No Quality: Stroke Does the patient have a stroke diagnosis?: No Physical Exam Exam: Exam: General: AOx3, sleepy when I saw the pt Resp: CTA bilaterally CVS: S1, S2, RRR GI: mild epigastric tenderness Neuro: Cranial nerves II-XII grossly intact bilaterally. Motor grossly intact bilaterally Orthostats + in past Vital Signs: Vital Signs: Last Vital Signs Temp 98.3 F 06/16/25 07:52 Pulse 88 06/16/25 10:43 Resp 13 06/16/25 07:52 BP 130/65 06/16/25 07:52 Pulse Ox 96 06/16/25 10:43 O2 Del Method Room Air 06/16/25 07:52 BMI result Body Mass Index 28.9 DS: Data Data Completed and Pending Completed studies during hospitalization [Text1]: Pending at discharge 06/08/25 14:28 Surgical [PTH] Routine Procedures Dilation of Stomach, Pylorus with Intraluminal Device, Percutaneous Endoscopic Approach (09/17/24) Dilation of Stomach, Via Natural or Artificial Opening Endoscopic (11/04/24) Excision of Duodenum, Via Natural or Artificial Opening Endoscopic, Diagnostic (11/04/24) Excision of Esophagus, Via Natural or Artificial Opening Endoscopic, Diagnostic (09/17/24) Excision of Stomach, Pylorus, Via Natural or Artificial Opening Endoscopic, Diagnostic (11/04/24) Labs on day of discharge: Laboratory Results - last 24 hr 06/15/25 06/15/25 06/15/25 16:22 18:00 20:38 WBC RBC Hgb Hct MCV MCH MCHC RDW Plt Count MPV Immature Gran % (Auto) Neut % (Auto) Lymph % (Auto) [place] % (Auto) Eos % (Auto) Baso % (Auto) Lymph # (Auto) [place] # (Auto) Eos # (Auto) Baso # (Auto) Abs Immat Gran (auto) Absolute Neuts (auto) Absolute Nucleated RBC Nucleated RBC % (auto) Sodium 141 Potassium 2.7 L* Chloride 103 Carbon Dioxide 29 Anion Gap 12 BUN 7 L Creatinine 0.99 Estim Creat Clear Calc 73.4 Estimated GFR 59 POC Glucose 117 H 296 H Random Glucose 249 H Calcium 8.5 D Magnesium 1.5 L Total Bilirubin AST ALT Alkaline Phosphatase Total Protein Albumin 06/15/25 06/16/25 06/16/25 21:48 06:20 07:35 WBC 13.9 H RBC 3.25 L Hgb 8.5 L Hct 26.5 L MCV 81.5 MCH 26.2 L MCHC 32.1 RDW 17.5 H Plt Count 493 H MPV 8.4 L Immature Gran % (Auto) 0.3 Neut % (Auto) 65.0 Lymph % (Auto) 27.6 [place] % (Auto) 5.9 Eos % (Auto) 0.9 Baso % (Auto) 0.3 Lymph # (Auto) 3.8 [place] # (Auto) 0.8 Eos # (Auto) 0.1 Baso # (Auto) 0.0 Abs Immat Gran (auto) 0.04 H Absolute Neuts (auto) 9.0 H Absolute Nucleated RBC 0.000 Nucleated RBC % (auto) 0.0 Sodium 140 140 Potassium 2.8 L* 3.3 Chloride 104 104 Carbon Dioxide 24 27 Anion Gap 15 12 BUN 7 L 8 L Creatinine 0.93 0.86 Estim Creat Clear Calc 78.1 84.1 Estimated GFR > 60 > 60 POC Glucose 175 H Random Glucose 333 H 165 H Calcium 7.7 L D 8.4 D Magnesium 2.1 Total Bilirubin 0.3 AST 14 ALT < 6 Alkaline Phosphatase 80 Total Protein 6.0 L Albumin 3.5 06/16/25 11:18 WBC RBC Hgb Hct MCV MCH MCHC RDW Plt Count MPV Immature Gran % (Auto) Neut % (Auto) Lymph % (Auto) [place] % (Auto) Eos % (Auto) Baso % (Auto) Lymph # (Auto) [place] # (Auto) Eos # (Auto) Baso # (Auto) Abs Immat Gran (auto) Absolute Neuts (auto) Absolute Nucleated RBC Nucleated RBC % (auto) Sodium Potassium Chloride Carbon Dioxide Anion Gap BUN Creatinine Estim Creat Clear Calc Estimated GFR POC Glucose 151 H Random Glucose Calcium Magnesium Total Bilirubin AST ALT Alkaline Phosphatase Total Protein Albumin Discharge Plan Discharge Anticipated Discharge Date/Time: 06/16/25 11:23 Patient Disposition: Home, Self-Care Discharge Diagnosis: Gastroparesis, autonomic dysfunction, orthostatic hypotension, AGMA Referrals: Yulisa Dyson MD [Primary Care Provider, Internal Medicine] Kasia Fletcher MD [Physician, Gastroenterology] - 1 Week Discharge Medications: New erythromycin 250 mg Tablet 250 mg PO TIDAC Qty: 10 0RF dicyclomine 10 mg Capsule 10 mg PO QIDACHS 30 Days Qty: 60 0RF lidocaine [Lidocaine Pain Relief] 4 % Adhesive Patch,Medicated 2 patch transdermal DAILY Qty: 10 0RF Protocol: Apply to: Apply to: affected capsaicin [Arthritis Pain Relief(capsaic)] 0.075 % Cream 1 appl topical TID Qty: 57 0RF Protocol: Apply to: Apply to: to abdomen, wear gloves to apply thiamine mononitrate (vit B1) 100 mg Tablet 100 mg PO DAILY 30 Days Qty: 30 0RF Continued midodrine 5 mg tablet 5 mg PO DAILY Qty: 90 2RF ondansetron 4 mg tablet,disintegrating 4 mg PO Q6-8H PRN (Reason: nausea and vomiting) Qty: 20 0RF metoprolol tartrate 25 mg tablet 25 mg PO BID Qty: 180 1RF lorazepam 1 mg Tablet 1 mg PO TID PRN (Reason: Anxiety) lamotrigine 200 mg Tablet 200 mg PO BID zolpidem 10 mg Tablet 10 mg PO BEDTIME insulin aspart U-100 [Novolog U-100 Insulin aspart] 100 unit/mL solution See Protocol subcut TIDWM Protocol: Insulin Correction Scale Less than or equal to 110 ---- Give (units): 0 111 to 150 Give (units): 0 151 to 200 Give (units): 2 201 to 250 Give (units): 4 251 to 300 Give (units): 6 301 to 350 Give (units): 8 Greater than 350 Give (units): 10 Call MD if Blood Glucose > : 350 Rx Instructions: insulin pump insulin glargine [Lantus Solostar U-100 Insulin] 100 unit/mL (3 mL) insulin pen 15 unit subcut DAILY PRN (Reason: when pump not working) (DME) subcutaneous insulin pump Misc MISCELLANEOUS Rx Instructions: *Pump Brand is Tandem* Uses Novolog 0-100 units with pump (DME) Dexcom G6 Sensor Device 1 ea MISCELLANEOUS Q10D (DME) Dexcom G6 Transmitter Device MISCELLANEOUS risperidone 3 mg tablet 3 mg PO BID omeprazole 20 mg capsule,delayed release(DR/EC) 20 mg PO BID Discharge Orders: Discharge Order (Routine); Ordered 06/16/25 Ordered By: Carol Parker Diet: Diabetic diet Activity on Discharge: As tolerated Stand Alone Forms: Patient Portal Discharge page Print Language: Serbian Activity Restrictions/Additional Instructions: Discharge Instructions: Orthostatic Hypotension in Poorly-Controlled Diabetic Gastroparesis 1. Understanding Your Conditions Orthostatic hypotension is a drop in blood pressure when standing up, causing dizziness, lightheadedness, or fainting. It is common in people with diabetes, especially when there is autonomic neuropathy. Diabetic gastroparesis is delayed stomach emptying due to nerve damage from diabetes, leading to symptoms like nausea, vomiting, bloating, and poor blood sugar control. Poor glycemic control can worsen both gastroparesis and orthostatic hypotension. 2. Managing Orthostatic Hypotension Change positions slowly: Sit on the edge of the bed for 1?2 minutes before standing. Stand up slowly and pause before walking. Physical counterpressure maneuvers: If you feel dizzy, cross your legs, tense your leg and abdominal muscles, or squat down. Compression garments: Wear compression stockings or an abdominal binder if recommended, to reduce blood pooling in your legs and abdomen. Elevate the head of your bed: Raise the head of your bed by 10?20 degrees to reduce overnight blood pressure drops and morning symptoms. Avoid triggers: Avoid hot showers, alcohol, and standing for long periods. 3. Gastroparesis and Glycemic Control Optimize blood sugar: Aim for blood glucose levels below 180 mg/dL, as high blood sugar can worsen gastroparesis and delay stomach emptying. Monitor your blood sugar frequently, especially around meals. Use insulin or other diabetes medications as prescribed, with adjustments as needed for your eating pattern and symptoms. Meal planning: Eat small, frequent meals (4?6 per day) instead of large meals. Choose low-fat, low-fiber foods that are easier to digest. Avoid lying down within 2 hours after eating. If you have severe symptoms, consider liquid or pureed meals as recommended by your dietitian. Hydration: Drink fluids throughout the day, but avoid drinking large amounts at once, especially with meals, to reduce bloating and risk of postprandial hypotension. 4. Medication Considerations Gastroparesis medications: Take prokinetic agents (e.g., metoclopramide, erythromycin) as prescribed to help with stomach emptying. Avoid medications that can worsen gastroparesis or OH (e.g., anticholinergics, certain antihypertensives) unless specifically directed. OH medications: If prescribed, take midodrine or fludrocortisone as directed. Take midodrine at least 4 hours before bedtime. For severe postprandial OH, your provider may consider pre-meal octreotide injections. Monitor for side effects: Report any new or worsening symptoms, such as palpitations, chest pain, or severe dizziness. 5. Fall and Safety Precautions Home safety: Remove tripping hazards, ensure good lighting, and install grab bars in bathrooms. Use assistive devices (cane, walker) if recommended. Have help available: Arrange for someone to assist you with activities that may be unsafe to do alone, especially after meals or when feeling unwell. 6. When to Seek Medical Attention Severe or persistent dizziness, fainting, or falls. Inability to keep down food or fluids, leading to dehydration. Uncontrolled vomiting or severe abdominal pain. Blood glucose consistently above 250 mg/dL or below 70 mg/dL, or symptoms of low blood sugar (shakiness, confusion, sweating). Chest pain, palpitations, or shortness of breath. 7. Follow-Up and Support Regular follow-up: Attend all scheduled appointments with your primary care provider, live in housekeeper, and industrial arts teacher. Bring a log of your blood pressure, blood sugar readings, and symptoms to each visit. Multidisciplinary care: Work with a inclusion paraeducator, registered dietitian, and, if needed, a behavioral health specialist for comprehensive management. [place] Points: Slow position changes, compression garments, and counterpressure maneuvers help prevent OH symptoms. Optimizing blood sugar and dietary modifications are crucial for managing gastroparesis and reducing OH risk. Safety at home and regular follow-up are essential to prevent complications. Care Plan Goals: Continue erythromycin Follow-up with GI keep the appointment with the surgery at [facility] for G-POEM Please refer to the orthostatic hypotension discharge instructions Health Concerns: See above Plan of Treatment: See above Assessment: See above Patient Instructions: POTS (Postural Orthostatic Tachycardia Syndrome) (ED), Cyclic Vomiting Syndrome (DC), Diabetic Gastroparesis (DC)
--- NOTE | 2025-06-16 12:35 | PC.NURSE ---
Patient agreeable to STR, paperwork for d/c was placed in the folder for EMS
[2025-06-16] MEDS: Heparin Sodium,Porcine Flush 50 UNITS, 0.9 % Sodium Chloride Flush 5 ML IVFLUSH (12:37)
== END 2025-06-16 12:54 | disposition home or self-care (01) | DRG 74 ==
LOC: HO.ED 06-07 02:55 → HO.EDOVER 06-07 05:24 → HO.S3 06-07 07:25 → HO.EDOVER 06-07 07:31 → HO.IMC 06-07 15:41 → HO.ICU 06-13 13:14 → HO.S3 06-14 11:34
PROVIDERS: Emergency Medicine Emergency Medical Services; Hospitalist; Internal Medicine; Internal Medicine Pulmonary Disease; Physician Assistant; Registered Nurse Emergency; Admitting Provider Nurse Practitioner Family; Emergency Provider Emergency Medicine; PCP Internal Medicine; Visit Provider Student in an Organized Health Care Education/Training Program
PROC: 0DJ08ZZ Inspection of Upper Intestinal Tract, Via Natural or Artificial Opening Endoscopic (ICD-10-PCS; CPT 43235; principal; 2025-06-08 14:30)
DX: E10.42 Type 1 diabetes mellitus with diabetic polyneuropathy (principal); K31.84 Gastroparesis; E86.1 Hypovolemia; K20.90 Esophagitis, unspecified without bleeding; F31.9 Bipolar disorder, unspecified; F12.90 Cannabis use, unspecified, uncomplicated; F41.9 Anxiety disorder, unspecified; R11.16 Cannabis hyperemesis syndrome; G90.A Postural orthostatic tachycardia syndrome [POTS]; N20.0 Calculus of kidney; K31.7 Polyp of stomach and duodenum; G89.29 Other chronic pain; K29.70 Gastritis, unspecified, without bleeding; E83.42 Hypomagnesemia; Z23 Encounter for immunization; E87.6 Hypokalemia; I95.1 Orthostatic hypotension; Z20.822 Contact with and (suspected) exposure to COVID-19; Z96.41 Presence of insulin pump (external) (internal); Z87.891 Personal history of nicotine dependence; Z79.899 Other long term (current) drug therapy
CPT/HCPCS: 36415; 74177; 80048; 80053; 80307; 81001; 81003; 82010; 82040; 82803; 82947; 83605; 83690; 83735; 84100; 85025; 87637; 88305; 88313; 90656; 93005; 93306; 97162; 99285; J0616; J0737; J1171; J1200; J1630; J1642; J1650; J1885; J2003; J2405; J2470; J2704; J2765; J3360; J3411; J3475; J3480; J7120; Q9957; Q9967

== ENCOUNTER → 2025-06-06 15:19 | Outpatient (BNV) | payer OTHER, SELFPAY | PROVIDERS: Admitting Provider Nurse Practitioner Family; Emergency Provider Emergency Medicine; PCP Internal Medicine; Visit Provider Internal Medicine Cardiovascular Disease | DX: R00.0 Tachycardia, unspecified (principal) | CPT/HCPCS: 93010 ==

== ENCOUNTER → 2025-06-07 01:19 | Outpatient (BNV) | payer OTHER, SELFPAY | PROVIDERS: Emergency Provider Emergency Medicine; PCP Internal Medicine; Visit Provider Radiology Diagnostic Radiology | DX: N20.0 Calculus of kidney (principal) | CPT/HCPCS: 74177 ==

== ENCOUNTER 2025-06-07 05:17 | Outpatient (BNV) | payer OTHER, SELFPAY | END 2025-06-14 19:11 | PROVIDERS: Admitting Provider Nurse Practitioner Family; Emergency Provider Emergency Medicine; PCP Internal Medicine; Visit Provider Internal Medicine | DX: Z13.6 Encounter for screening for cardiovascular disorders (principal) | CPT/HCPCS: 93010 ==

== ENCOUNTER 2025-06-07 05:17 | Outpatient (BNV) | payer OTHER, SELFPAY | END 2025-06-07 06:41 | PROVIDERS: Admitting Provider Nurse Practitioner Family; Emergency Provider Emergency Medicine; PCP Internal Medicine; Visit Provider Internal Medicine Cardiovascular Disease | DX: R00.0 Tachycardia, unspecified (principal) | CPT/HCPCS: 93010 ==

== ENCOUNTER 2025-06-07 05:17 | Outpatient (BNV) | payer OTHER, SELFPAY | END 2025-06-08 07:00 | PROVIDERS: Admitting Provider Nurse Practitioner Family; Emergency Provider Emergency Medicine; PCP Internal Medicine; Visit Provider Internal Medicine Cardiovascular Disease | DX: I51.89 Other ill-defined heart diseases (principal) | CPT/HCPCS: 93306 ==

== ENCOUNTER 2025-06-07 05:17 | Outpatient (BNV) | payer OTHER, SELFPAY | END 2025-06-13 22:04 | PROVIDERS: Admitting Provider Nurse Practitioner Family; Emergency Provider Emergency Medicine; PCP Internal Medicine; Visit Provider Internal Medicine | DX: R00.0 Tachycardia, unspecified (principal) | CPT/HCPCS: 93010 ==

== ENCOUNTER 2025-06-07 05:17 | Outpatient (BNV) | payer OTHER, SELFPAY | END 2025-06-15 20:41 | PROVIDERS: Admitting Provider Nurse Practitioner Family; Emergency Provider Emergency Medicine; PCP Internal Medicine; Visit Provider Internal Medicine | DX: R00.0 Tachycardia, unspecified (principal) | CPT/HCPCS: 93010 ==

== ENCOUNTER → 2025-06-07 05:17 | Outpatient (BNV) | payer OTHER, SELFPAY | PROVIDERS: Admitting Provider Nurse Practitioner Family; Emergency Provider Emergency Medicine; PCP Internal Medicine; Visit Provider Internal Medicine | DX: E11.43 Type 2 diabetes mellitus with diabetic autonomic (poly)neuropathy (principal); K31.84 Gastroparesis; R10.9 Unspecified abdominal pain; R11.2 Nausea with vomiting, unspecified | CPT/HCPCS: 99222 ==

== ENCOUNTER → 2025-06-07 05:17 | Outpatient (BNV) | payer OTHER, SELFPAY | PROVIDERS: Admitting Provider Nurse Practitioner Family; Emergency Provider Emergency Medicine; PCP Internal Medicine; Visit Provider Internal Medicine Pulmonary Disease | DX: E11.10 Type 2 diabetes mellitus with ketoacidosis without coma (principal); R11.2 Nausea with vomiting, unspecified; R10.9 Unspecified abdominal pain | CPT/HCPCS: 99232 ==

== ENCOUNTER → 2025-06-07 05:17 | Outpatient (BNV) | payer OTHER, SELFPAY | PROVIDERS: Admitting Provider Nurse Practitioner Family; Emergency Provider Emergency Medicine; PCP Internal Medicine; Visit Provider Nurse Practitioner Family | DX: R11.2 Nausea with vomiting, unspecified (principal); K31.84 Gastroparesis; I95.1 Orthostatic hypotension | CPT/HCPCS: 99223 ==